=== PATIENT | female | born 1975 | race Caucasian/White ===

== ENCOUNTER 2020-06-10 19:02 | Emergency (ER) | payer OTHER, SELFPAY ==
--- NOTE | 2020-06-10 19:17 | ED.NAVMDI ---
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 Mode of arrival: EMS Limitations: other (very poor historian and cooperation) History of Present Illness HPI Narrative: 45 yo female with hx of migraines who comes in with c/o 2 hours gradual onset diffuse headache n/v and seeing spots - hx of exact same episode 2 years ago and was treated and seen, she is not sure if this was a migraine and I cannot find a record of it here, no AC therapy, no fevers, + n/v, worsened by movement and lights, no relieving factors MD elicited complaint: nausea, vomiting and abdominal pain (mild RUQ pain but that just started in ED) Onset (ago): hour(s) (2) Associated nausea: Yes Associated abdominal pain: Yes Location of pain: RUQ (mild started after I palpated her abdomen in the ED) Pain consistency: constant Severity: mild Quality: cramping Exacerbating factors: none Relieving factors: none Associated symptoms: headaches (her main complaint and feels like she sees black dots in both eyes) Related Data Previous Rx's Medication Instructions Recorded [id number]-hpatletwqpaav-ovfc 1 tab PO Q6H PRN #20 tab 06/10/20 cyclobenzaprine 10 mg PO TID PRN #14 tab 06/10/20 ondansetron 4 mg PO Q8H PRN #20 tab 06/10/20 Allergies Allergy/AdvReac Type Severity Reaction Status Date / Time aspirin [ASPIRIN] Allergy Severe DIFFICULTY Unverified 05/04/20 17:08 BREATHING, anaphylaxis penicillin G [PENICILLIN G] Allergy Severe DIFFICULTY Unverified 05/04/20 17:08 BREATHING penicillin V Allergy Unknown anaphylaxis Unverified 03/28/17 00:00 Review of Systems Review of Systems: Constitutional : No Fever, No Chills, No Fatigue ENT/Mouth : No sore throat, No Rhinorrhea Eyes: No Eye Pain, No Swelling, No Redness, states she sees black spots in both eyes Cardiovascular : No Chest Pain, No SOB, No Dyspnea on Exertion Respiratory : No Cough, No Sputum Gastrointestinal : pos Nausea, pos Vomiting, No Diarrhea, No abdominal Pain Genitourinary : No Dysuria, No Urinary Frequency, No Hematuria, Musculoskeletal : No joint pain, No Myalgias, No Joint Swelling Skin : No Skin Lesions, No rash Neuro : pos diffuse Weakness, No Numbness, pos Dizziness, positive Headache Psych : No Anxiety/Panic, No Depression Heme/Lymph: No Bruising, No Bleeding,No Lymphadenopathy Endocrine : No Polyuria, No Polydipsia All other systems reviewed and are negative Gastrointestinal: Gastrointestinal: Reports nausea PMFSH Past Medical History Medical History (Updated 06/10/20 @ 23:07 by Yas Leal DO) Chronic pain HTN (hypertension) Kidney stone Migraine Surgical History (Updated 06/10/20 @ 19:19 by Yas Leal DO) H/O: hysterectomy Social History Social History (Updated 06/10/20 @ 19:19 by Yas Leal DO) Alcohol intake: never Smoking Status: Current every day smoker Use of substances other than those prescribed or required for medical reasons: No Advance Directives: No Advance Directives Information Provided: No Physical Exam Vital Signs: Vital Signs: Vital Signs Temp Pulse Resp BP Pulse Ox 06/10/20 22:00 98.2 F 55 16 141/73 H 99 06/10/20 20:15 97.6 F 55 16 139/66 98 06/10/20 19:23 97.6 F 71 11 L 135/70 96 Body Mass Index 58.3 Appearance: Alert. Oriented X3. No acute distress. Eyes: Pupils equal, round and reactive to light. states she can see my fingers, will not open eyes due to her headache ENT: Pharynx normal. Neck: Normal inspection. Neck supple. no meningeal signs CVS: Normal heart rate and rhythm. Pulses normal. Respiratory: No respiratory distress. Breath sounds normal. Abdomen: Soft and nontender. Skin: Skin warm and dry. Normal skin color. Normal skin turgor. Extremities: No lower extremity edema. No calf ttp Neuro: Oriented X 3. No motor deficit. No sensory deficit. will not participate fully in exam, refuses at times Course Course Course Narrative: no acute findings, normal labs, normal VS, CT scan negative, has been talking on her phone in no distress, able to tolerate PO, stable for DC, all symptoms resolved MDM - Nausea/Vomiting/Diarrhea MDM Narrative Medical decision making narrative: 45 yo female with HTN, obesity, migraines - here with c/o headaches n/v gradual onset x 2 hours, no AC therapy, states she is seeing black spots she is not very helpful with history or exam, states this has happened before in the past 2 years ago with same exact episode and unsure if it was a migraine but was not in the hospital for it, will obtain basic labs, CT head, IV reglan/benadryl, seems atypical for stroke/SAH/meningitis Lab Data Result diagrams: 06/10/20 19:34 06/10/20 20:36 Labs: Lab Results 06/10/20 06/10/20 06/10/20 Range/Units 19:34 19:34 19:34 WBC 11.3 H (4.8-10.8) X10*3/uL RBC 4.34 (4.20-5.50) X10*6/uL Hgb 13.4 (12.0-16.0) g/dl Hct 41.0 (37-47) % MCV 94.5 (80-98) fL MCH 30.9 (27.0-33.0) pg MCHC 32.7 (31.0-35.0) g/dl RDW 13.4 (11.0-16.0) % Plt Count 306 (160-400) X10*3/uL MPV 10.0 (9.4-12.3) fL Immature Gran % (Auto) 1.2 H (0.0-0.4) % Neut % (Auto) 61.0 (45-73) % Lymph % (Auto) 26.4 (20-40) % Pope % (Auto) 7.5 (2-11) % Eos % (Auto) 3.4 (0-4) % Baso % (Auto) 0.5 (0-2) % Lymph # (Auto) 3.0 (1.2-4.9) X10*3/uL Pope # (Auto) 0.8 (0.1-1.2) X10*3/uL Eos # (Auto) 0.4 (0.0-0.4) X10*3/uL Baso # (Auto) 0.1 (0.0-0.2) X10*3/uL Abs Immat Gran (auto) 0.14 H (0.00-0.03) X10*3/uL Absolute Neuts (auto) 6.9 (2.0-8.3) X10*3/uL Absolute Nucleated RBC 0.000 (0.0-0.012) X10*3/uL Nucleated RBC % (auto) 0.0 (0.0-0.2) /100WBC Hold Blue Top SEE NOTE Sodium Cancelled Potassium Cancelled Chloride Cancelled Carbon Dioxide Cancelled Anion Gap Cancelled BUN Cancelled Creatinine Cancelled Estim Creat Clear Calc Cancelled Estimated GFR Cancelled Random Glucose Cancelled Calcium Cancelled Magnesium Cancelled Total Bilirubin Cancelled Direct Bilirubin Cancelled AST Cancelled ALT Cancelled Alkaline Phosphatase Cancelled Troponin I High Sens (<3.5-17.0) ng/L Total Protein Cancelled Albumin Cancelled Lipase Cancelled Urine Color Urine Appearance Urine pH (5.0-8.0) Ur Specific [place] (1.005-1.025) Urine Protein (NEG-TRACE) MG/DL Urine Glucose (UA) (NEG) MG/DL Urine Ketones (NEG) MG/DL Urine Blood (NEG) Urine Nitrite (NEG) Ur Leukocyte Esterase (NEG) 06/10/20 06/10/20 06/10/20 Range/Units 19:34 20:36 22:37 WBC (4.8-10.8) X10*3/uL RBC (4.20-5.50) X10*6/uL Hgb (12.0-16.0) g/dl Hct (37-47) % MCV (80-98) fL MCH (27.0-33.0) pg MCHC (31.0-35.0) g/dl RDW (11.0-16.0) % Plt Count (160-400) X10*3/uL MPV (9.4-12.3) fL Immature Gran % (Auto) (0.0-0.4) % Neut % (Auto) (45-73) % Lymph % (Auto) (20-40) % Pope % (Auto) (2-11) % Eos % (Auto) (0-4) % Baso % (Auto) (0-2) % Lymph # (Auto) (1.2-4.9) X10*3/uL Pope # (Auto) (0.1-1.2) X10*3/uL Eos # (Auto) (0.0-0.4) X10*3/uL Baso # (Auto) (0.0-0.2) X10*3/uL Abs Immat Gran (auto) (0.00-0.03) X10*3/uL Absolute Neuts (auto) (2.0-8.3) X10*3/uL Absolute Nucleated RBC (0.0-0.012) X10*3/uL Nucleated RBC % (auto) (0.0-0.2) /100WBC Hold Blue Top Sodium 138 Potassium 4.7 Chloride 105 Carbon Dioxide 27 Anion Gap 11 L BUN 11 Creatinine 0.82 Estim Creat Clear Calc 139.8 Estimated GFR > 60 Random Glucose 101 Calcium 8.9 Magnesium 2.1 Total Bilirubin 0.3 Direct Bilirubin < 0.2 AST 13 ALT 13 Alkaline Phosphatase 71 Troponin I High Sens < 3.5 (<3.5-17.0) ng/L Total Protein 6.9 Albumin 3.6 Lipase 18 Urine Color YELLOW Urine Appearance CLEAR Urine pH 6.5 (5.0-8.0) Ur Specific [place] 1.020 (1.005-1.025) Urine Protein NEG (NEG-TRACE) MG/DL Urine Glucose (UA) NEG (NEG) MG/DL Urine Ketones NEG (NEG) MG/DL Urine Blood NEG (NEG) Urine Nitrite NEG (NEG) Ur Leukocyte Esterase NEG (NEG) ECG Data Attestation: I personally reviewed and interpreted this ECG as follows: ECG interpretation date: 06/10/20 ECG interpretation time: 20:22 Interpretation: Rate: 59 Rhythm: sinus bradycardia Riddle: normal Normal P waves. Normal SAGE. Normal QRS complex. ST T wave : nonspecific qTC: normal prior studies: no acute ischemia The study has been interpreted contemporaneously by me. . Discharge Plan Discharge Clinical Impression: Migraine Qualifiers: Migraine type: with aura Status migrainosus presence: without status migrainosus Intractability: not intractable Qualified Code(s): G43.109 - Migraine with aura, not intractable, without status migrainosus Patient Disposition: Home, Self-Care Instructions: Migraine Headache (ED) Prescriptions: New ondansetron 4 mg tablet,disintegrating 4 mg PO Q8H PRN (Reason: nausea and vomiting) Qty: 20 RF: 0 xceuuvxeeq-agbdqnsbqmlpp-ukks 50-325-40 mg tablet 1 tab PO Q6H PRN (Reason: pain) Qty: 20 RF: 0 cyclobenzaprine 10 mg tablet 10 mg PO TID PRN (Reason: muscle spasm) Qty: 14 RF: 0 Referrals: Carmen Bertrand DO [Primary Care Provider] - 2 days (if not better) Print Language: Telugu
--- NOTE | 2020-06-10 19:20 | ECG_ITS ---
Test Reason : DIZZINESS Blood Pressure : / mmHG Vent. Rate : 059 BPM Atrial Rate : 059 BPM P-R Int : 188 ms QRS Dur : 078 ms QT Int : 414 ms P-R-T Axes : 058 071 055 degrees QTc Int : 409 ms Sinus bradycardia Nonspecific T wave abnormality Abnormal ECG No significant changes seen Referred By: Yas Leal Electronically Signed By:NELIDA BARKER MD
--- NOTE | 2020-06-10 19:20 | CT_ITS ---
EXAMINATION: CT HEAD WITHOUT CONTRAST CLINICAL INFORMATION: Dizziness COMPARISON: Report of head CT 02/02/19 is no acute intracranial process TECHNIQUE: Multidetector CT examination of the head is performed without contrast. This CT examination was performed using dose optimization techniques as appropriate, variously including the following: *Automated exposure control *Adjustment of mA and/or kV according to patient size (this includes techniques or standardized protocols for targeted exams where dose is matched to indication/reason for exam; i.e. extremities or head) *Use of iterative reconstruction technique DLP: 865 mGy-cm FINDINGS: There is no evidence of a recent intracranial hemorrhage or extra-axial collection. The midline structures are nondisplaced. The ventricles, cisterns, and sulci are within normal limits. There is no evidence of an intra-axial mass. There are no suspicious focal areas of abnormal brain attenuation. The barajas-white interface is within normal limits. There is no evidence of acute territorial infarct. The paranasal sinuses and mastoids are within normal limits. Nonspecific area of relative lucency in the right mandibular condyle. CT/CT head/brain wo con IMPRESSION: 1. There is no evidence of a recent intracranial hemorrhage. 2. No acute infarct. 3. No suspicious interval change
[2020-06-10 19:23] VITALS: BP 126/76; BP 135/70; PULSE 71; PULSE 72; RESP 11; TEMP 36.4; O2SAT 96; O2SAT 98; BMI 58.3
[2020-06-10 19:39] LABS: MANUAL DIFF FLAG NO
[2020-06-10 20:08] LABS: Basophils Absolute Auto 0.1 X10*3/uL (0.0-0.2); Basophils Percent Auto 0.5 % (0-2); Eosinophils Absolute Auto 0.4 X10*3/uL (0.0-0.4); Eosinophils Percent Auto 3.4 % (0-4); Hemoglobin 13.4 g/dl (12.0-16.0); Imm Gran Abs Auto 0.14 X10*3/uL (0.00-0.03); Imm Gran Pct Auto 1.2 % (0.0-0.4); Lymphocytes Percent Auto 26.4 % (20-40); Mean Corpuscular HGB Conc 32.7 g/dl (31.0-35.0); Mean Corpuscular Hemoglobin 30.9 pg (27.0-33.0); Mean Corpuscular Volume 94.5 fL (80-98); Monocytes Absolute Auto 0.8 X10*3/uL (0.1-1.2); Monocytes Percent Auto 7.5 % (2-11); Neutrophils Absolute Auto 6.9 X10*3/uL (2.0-8.3); Platelet Count 306 X10*3/uL (160-400); Red Blood Count 4.34 X10*6/uL (4.20-5.50); Red Cell Distribution Width 13.4 % (11.0-16.0); White Blood Count 11.3 X10*3/uL (4.8-10.8)
[2020-06-10 20:10] LABS: Troponin-I High Sensitivity < 3.5 ng/L (<3.5-17.0)
[2020-06-10 20:15] VITALS: BP 139/66; PULSE 55; RESP 16; TEMP 36.4; O2SAT 98
[2020-06-10] MEDS: diphenhydrAMINE HCL 50 MG/ML VIAL 25 MG IVPUSH (20:32)
[2020-06-10] MEDS: 0.9 % Sodium Chloride 1,000 ML 999 ML IVCONT (20:33)
[2020-06-10] MEDS: Metoclopramide HCl 10 MG/2 ML VIAL 5 MG IVPUSH (20:33)
--- NOTE | 2020-06-10 20:42 | PC.NURSE ---
COMPLAINING OF NAUSEA. PATIENT TALKING ON PHONE. MEDS ARE INFUSING.
[2020-06-10 21:14] LABS: Alanine Aminotransferase 13 U/L (0-31); Albumin Level 3.6 g/dL (3.5-5.0); Alkaline Phosphatase 71 U/L (39-117); Anion Gap 11 (12-20); Aspartate Amino Transferase 13 U/L (5-31); Bilirubin Direct < 0.2 mg/dL (0.0-0.5); Bilirubin Total 0.3 mg/dL (0.0-1.0); Blood Urea Nitrogen 11 mg/dL (9-16); Calcium 8.9 mg/dL (8.4-10.2); Carbon Dioxide 27 mmol/L (22-29); Chloride 105 mmol/L (96-108); Creatinine Clr Calc Pharmacy 139.8; Estimated Glomerular Filt Rate > 60; Glucose Random 101 mg/dL (60-115); Lipase 18 U/L (8-78); Magnesium 2.1 mg/dL (1.6-2.6); Potassium 4.7 mmol/l (3.3-5.1); Sodium 138 mmol/L (135-145); Total Protein 6.9 g/dL (6.5-8.0)
[2020-06-10 22:00] VITALS: BP 141/73; PULSE 55; RESP 16; TEMP 36.8; O2SAT 99
[2020-06-10 22:43] LABS: Glucose Urine UA NEG (NEG); Leukocyte Esterase Urine NEG (NEG); Nitrite Urine NEG (NEG); PH 6.5 (5.0-8.0); Urine Blood NEG (NEG); Urine Ketones NEG (NEG); Urine Protein NEG (NEG-TRACE)
[2020-06-10 22:46] LABS: Appearance Urine CLEAR; Color Urine YELLOW
--- NOTE | 2020-06-10 22:52 | PC.NURSE ---
GIVEN WATER TO START PO CHALLENGE
[2020-06-10 23:50] LABS: Bacteria Urine 1+ /LPF; Squamous Epithelial Cell Urine 1+ /LPF
== END 2020-06-10 23:33 | disposition home or self-care (01) ==
PROVIDERS: Emergency Provider Emergency Medicine; PCP Family Medicine
DX: G43.109 Migraine with aura, not intractable, without status migrainosus (principal); R42 Dizziness and giddiness; R10.11 Right upper quadrant pain; F17.200 Nicotine dependence, unspecified, uncomplicated; Z71.6 Tobacco abuse counseling; Z79.899 Other long term (current) drug therapy
CPT/HCPCS: 36415; 70450; 80048; 80076; 81001; 81003; 83690; 83735; 84484; 85025; 93005; 96361; 96374; 96375; 99284; J1200; J2765

== ENCOUNTER 2020-09-28 12:23 | Emergency (ER) | payer OTHER, SELFPAY ==
--- NOTE | ~2020-09-28 | CT_ITS ---
EXAMINATION: CT ABDOMEN AND PELVIS WITHOUT CONTRAST CLINICAL INFORMATION: Left-sided abdominal and flank pain COMPARISON: Baseline including 02/01/2018 TECHNIQUE: Multidetector volumetric imaging was performed from the superior aspect of the liver through the pubic symphysis. Sagittal and coronal reformatted images were obtained on the technologist's workstation. This CT examination was performed using dose optimization techniques as appropriate, variously including the following: *Automated exposure control *Adjustment of mA and/or kV according to patient size (this includes techniques or standardized protocols for targeted exams where dose is matched to indication/reason for exam; i.e. extremities or head) *Use of iterative reconstruction technique DLP: 1376 mGy-cm FINDINGS: LUNG BASES: The visualized lung bases are unremarkable. LIVER, GALLBLADDER, AND BILIARY TREE: The liver is normal in size, shape, and attenuation. No focal hepatic lesion or biliary ductal dilatation is present. The gallbladder is unremarkable with no evidence of radiopaque gallstones, gallbladder wall thickening, or obvious pericholecystic inflammatory changes. PANCREAS: Unremarkable. SPLEEN: Unremarkable. ADRENAL GLANDS: Unremarkable. KIDNEYS AND URETERS: There are multiple small intrarenal calculi measuring up to 1 2 5 mm. On the right, approximately 7 stones are measurable on the left 6 stones are measurable. There is hydronephrosis on the left down to the level of the mid ureter at the level of the iliac crest where there is a partially obstructing 4 mm calculus. The calculus measures approximately 190 Hounsfield units in density. When measured from the posterior mid axillary skin line, the distance from the skin to the calculus is approximately 19 cm. No perinephric abnormality. BLADDER: Unremarkable. GASTROINTESTINAL TRACT: The small and large bowel are unremarkable. The appendix is unremarkable. ABDOMINAL WALL: No significant hernia is appreciated. LYMPH NODES: Normal. VASCULAR: Unremarkable. PELVIC VISCERA: Pelvic organs appear to be surgically absent. OSSEOUS STRUCTURES: Unremarkable. CT/CT abdomen pelvis wo con IMPRESSION: Mildly partially obstructing left-sided 4 mm ureteral calculus as above. Nonobstructing numerous intrarenal calculi as above. Intrarenal calculi similar to baseline.
[2020-09-28 12:34] VITALS: BP 141/75; PULSE 76; RESP 18; TEMP 36.8; O2SAT 99; BMI 50.6
[2020-09-28] MEDS: 0.9 % Sodium Chloride 1,000 ML 999 ML IV (13:55)
[2020-09-28 14:00] LABS: MANUAL DIFF FLAG NO
[2020-09-28 14:07] LABS: Basophils Absolute Auto 0.1 X10*3/uL (0.0-0.2); Basophils Percent Auto 0.6 % (0-2); Eosinophils Absolute Auto 0.3 X10*3/uL (0.0-0.4); Eosinophils Percent Auto 2.7 % (0-4); Hemoglobin 13.3 g/dl (12.0-16.0); Imm Gran Pct Auto 1.6 % (0.0-0.4); Lymphocytes Absolute Auto 3.5 X10*3/uL (1.2-4.9); Lymphocytes Percent Auto 27.1 % (20-40); Mean Corpuscular HGB Conc 32.4 g/dl (31.0-35.0); Mean Corpuscular Hemoglobin 30.4 pg (27.0-33.0); Mean Corpuscular Volume 93.8 fL (80-98); Mean Platelet Volume 9.9 fL (9.4-12.3); Monocytes Percent Auto 8.2 % (2-11); Neutrophils Absolute Auto 7.6 X10*3/uL (2.0-8.3); Neutrophils Percent Auto 59.8 % (45-73); Platelet Count 425 X10*3/uL (160-400); Red Blood Count 4.37 X10*6/uL (4.20-5.50); Red Cell Distribution Width 13.4 % (11.0-16.0); White Blood Count 12.7 X10*3/uL (4.8-10.8)
[2020-09-28 14:08] LABS: Glucose Urine UA NEG (NEG); Leukocyte Esterase Urine NEG (NEG); Nitrite Urine NEG (NEG); Specific Gravity - Urine >= 1.030 (1.005-1.025); Urine Blood 3+ (NEG); Urine Ketones NEG (NEG); Urine Protein NEG (NEG-TRACE)
[2020-09-28 14:11] LABS: Appearance Urine CLEAR; Color Urine YELLOW
[2020-09-28 14:12] LABS: UPreg QC Valid YES; Urine Pregnancy NEGATIVE (NEGATIVE)
[2020-09-28 14:28] LABS: Alanine Aminotransferase 15 U/L (0-31); Albumin Level 3.5 g/dL (3.5-5.0); Alkaline Phosphatase 81 U/L (39-117); Anion Gap 10 (12-20); Aspartate Amino Transferase 12 U/L (5-31); Bilirubin Total 0.3 mg/dL (0.0-1.0); Blood Urea Nitrogen 16 mg/dL (9-16); Calcium 8.7 mg/dL (8.4-10.2); Carbon Dioxide 24 mmol/L (22-29); Chloride 110 mmol/L (96-108); Creatinine Clr Calc Pharmacy 119.1; Estimated Glomerular Filt Rate > 60; Glucose Random 99 mg/dL (60-115); Potassium 4.4 mmol/L (3.3-5.1); Sodium 140 mmol/L (135-145); Total Protein 7.1 g/dL (6.5-8.0)
[2020-09-28] MEDS: Ketorolac Tromethamine 30 MG/ML VIAL IVPUSH (14:47)
[2020-09-28 15:04] LABS: Bacteria Urine 2+ /LPF; Squamous Epithelial Cell Urine 2+ /LPF
--- NOTE | 2020-09-28 15:24 | ED_ITS ---
HPI - General Adult General Chief complaint: General Medical Stated complaint: back pain Time Seen by Provider: 09/28/20 13:47 Source: patient Mode of arrival: ambulatory Limitations: no limitations History of Present Illness HPI narrative: 45-year-old female with below noted past medical history presenting ambulatory via triage with complaint of left-sided abdomen/flank pain going on for past 1 and half week. States she went to her primary care doctor a week or so ago thought maybe urine tract infection was given a course of antibiotics which she finished however her flank pain continues. Denies any dysuria, hematuria, fever, nausea or vomiting. Onset (ago): day(s) Location: left Relieving factors: none Treatments prior to arrival: none Related Data Previous Rx's Medication Instructions Recorded qvnagevdis-timtaganczhse-cfgo 1 tab PO Q6H PRN #20 tab 06/10/20 cyclobenzaprine 10 mg PO TID PRN #14 tab 06/10/20 ondansetron 4 mg PO Q8H PRN #20 tab 06/10/20 Allergies Allergy/AdvReac Type Severity Reaction Status Date / Time aspirin [ASPIRIN] Allergy Severe DIFFICULTY Unverified 05/04/20 17:08 BREATHING, anaphylaxis penicillin G [PENICILLIN G] Allergy Severe DIFFICULTY Unverified 05/04/20 17:08 BREATHING penicillin V Allergy Unknown anaphylaxis Unverified 03/28/17 00:00 Review of Systems Review of Systems: Constitutional: No Weight loss, No Fever, No Chills, No Night Sweats, No Fatigue, No Malaise ENT/Mouth: No Hearing loss, No Ear Pain, No Nasal Congestion, No Sinus Pain, No Hoarseness, No sore throat, No Rhinorrhea, No Swallowing Difficulty Eyes: No Eye Pain, No Swelling, No Redness, No Foreign Body, No Discharge, No Vision Changes Cardiovascular: No Chest Pain, No SOB, No Dyspnea on Exertion, No Orthopnea, No Edema, No Palpitations Respiratory: No Cough, No Sputum, No Wheezing, No Smoke Exposure, No Dyspnea Gastrointestinal: As noted in HPI, No Hematochezia, No Melena Genitourinary: No Dysuria, No Urinary Frequency, No Hematuria, No Urinary Incontinence, No Urgency, No Flank Pain, No Urinary Flow Changes, No Hesitancy Musculoskeletal: No joint pain, No Myalgias, No Joint Swelling Skin: No Skin Lesions, No rash Neuro: No Weakness, No Numbness, No Paresthesias, No Loss of Consciousness, No Dizziness, No Headache Psych: No Social Issues Heme/Lymph: No Bruising, No Bleeding,No Lymphadenopathy Endocrine: No Polyuria, No Polydipsia, No Temperature Intolerance Yes all other systems are reviewed and are negative [facility] Past Medical History Medical History (Updated 09/28/20 @ 15:35 by Fly Ross NP) Chronic pain HTN (hypertension) Kidney stone Migraine Surgical History (Updated 06/10/20 @ 19:19 by Yas Leal DO) H/O: hysterectomy Social History Social History (Updated 06/10/20 @ 19:19 by Yas Leal DO) Alcohol intake: never Smoking Status: Current every day smoker Advance Directives: Yes Advance Directives Information Provided: No Advance Directives on File: No Physical Exam Vital Signs: Vital Signs: Last Vital Signs Temp 98.2 F 09/28/20 12:34 Pulse 76 09/28/20 12:34 Resp 18 09/28/20 12:34 BP 141/75 H 09/28/20 12:34 Pulse Ox 99 09/28/20 12:34 Body Mass Index 50.6 Reviewed Const: General: cooperative and healthy appearing; No acute distress or intoxicated appearing Nutritional Appearance: average body habitus Orientation/consciousness: patient oriented x3 HENMT: Head: Yes normal to inspection Ears: hearing grossly normal bilaterally Eyes: General: appearance normal, both eyes and all related structures Visual Redd: normal visual redd by confrontation Neck: Neck: Yes normal visual inspection, No positive Brudzinski's sign, No positive Kernig's sign and No tender Thyroid: Thyroid normal Chest: Chest palpation & inspection: normal inspection of the chest Resp: Effort & Inspection: normal respiratory effort Auscultation: clear to auscultation bilaterally Cardio: Jugular venous distension: no JVD Rhythm: regular rhythm Heart sounds: S1 normal heart sound present and S2 normal heart sound present GI: Other: Mild left CVA tenderness palpation. Inspection: Yes normal to inspection Percussion: Yes normal to percussion Auscultation: normal bowel sounds : General: Yes no CVA tenderness Back/Spine/Pelvis: Back: no CVA tenderness Skin: General skin exam: no rashes or lesions noted Neuro: General: patient oriented x3 Extrem: General: Yes normal to inspection Course Course Course Narrative: Labs with slight leukocytosis which she chronically has currently at 12.7 significant derangement. Renal function intact. UA with positive blood otherwise no signs of infection. CT of the abdomen pelvis shows Mildly partially obstructing left-sided 4 mm ureteral calculus as above. Nonobstructing numerous intrarenal calculi. Feeling much better after IV fluids and IV Toradol. Feels comfortable plan. Will discharge home with Flomax and oxycodone ibuprofen with urology follow-up. Stable for discharge. Medical Decision Making Lab Data Result diagrams: 09/28/20 13:54 09/28/20 13:54 Labs: Lab Results 09/28/20 09/28/20 09/28/20 Range/Units 13:54 13:54 13:54 WBC 12.7 H (4.8-10.8) X10*3/uL RBC 4.37 (4.20-5.50) X10*6/uL Hgb 13.3 (12.0-16.0) g/dl Hct 41.0 (37-47) % MCV 93.8 (80-98) fL MCH 30.4 (27.0-33.0) pg MCHC 32.4 (31.0-35.0) g/dl RDW 13.4 (11.0-16.0) % Plt Count 425 H D (160-400) X10*3/uL MPV 9.9 (9.4-12.3) fL Immature Gran % (Auto) 1.6 H (0.0-0.4) % Neut % (Auto) 59.8 (45-73) % Lymph % (Auto) 27.1 (20-40) % [place] % (Auto) 8.2 (2-11) % Eos % (Auto) 2.7 (0-4) % Baso % (Auto) 0.6 (0-2) % Lymph # (Auto) 3.5 (1.2-4.9) X10*3/uL [place] # (Auto) 1.0 (0.1-1.2) X10*3/uL Eos # (Auto) 0.3 (0.0-0.4) X10*3/uL Baso # (Auto) 0.1 (0.0-0.2) X10*3/uL Abs Immat Gran (auto) 0.20 H (0.00-0.03) X10*3/uL Absolute Neuts (auto) 7.6 (2.0-8.3) X10*3/uL Absolute Nucleated RBC 0.000 (0.0-0.012) X10*3/uL Nucleated RBC % (auto) 0.0 (0.0-0.2) /100WBC Sodium 140 (135-145) mmol/L Potassium 4.4 (3.3-5.1) mmol/L Chloride 110 H (96-108) mmol/L Carbon Dioxide 24 (22-29) mmol/L Anion Gap 10 L (12-20) BUN 16 (9-16) mg/dL Creatinine 0.97 (0.5-1.4) mg/dL Estim Creat Clear Calc 119.1 Estimated GFR > 60 Random Glucose 99 (60-115) mg/dL Calcium 8.7 (8.4-10.2) mg/dL Total Bilirubin 0.3 (0.0-1.0) mg/dL AST 12 (5-31) U/L ALT 15 (0-31) U/L Alkaline Phosphatase 81 (39-117) U/L Total Protein 7.1 (6.5-8.0) g/dL Albumin 3.5 (3.5-5.0) g/dL Urine Color YELLOW Urine Appearance CLEAR Urine pH 6.0 (5.0-8.0) Ur Specific [place] >= 1.030 H (1.005-1.025) Urine Protein NEG (NEG-TRACE) MG/DL Urine Glucose (UA) NEG (NEG) MG/DL Urine Ketones NEG (NEG) MG/DL Urine Blood 3+ H (NEG) Urine Nitrite NEG (NEG) Ur Leukocyte Esterase NEG (NEG) Urine RBC 15-29 H (0) /HPF Urine WBC 1-4 (0-4) /HPF Ur Squamous Epith Cells 2+ /LPF Urine Bacteria 2+ /LPF Urine Test NEGATIVE (NEGATIVE) Imaging Data Abdominal/pelvis CT: Radiologist's impression: [address] [id number] Scan ReportSigned Patient: Blaire Glass#: [id number]: 1975Acct:[id number]/Sex: 45 / FADM Date: 09/28/20Loc: [email or web address].EDAttending Dr: Ordering Physician: Fly Ross NP Date of Service: 09/28/20 Procedure(s): CT abdomen pelvis wo con Accession Number(s): [id number] cc: Fly Ross NP~ EXAMINATION: CT ABDOMEN AND PELVIS WITHOUT CONTRAST CLINICAL INFORMATION: Left-sided abdominal and flank pain COMPARISON: Baseline including 02/01/2018 TECHNIQUE: Multidetector volumetric imaging was performed from the superior aspect of the liver through the pubic symphysis. Sagittal and coronal reformatted images were obtained on the technologist's workstation. This CT examination was performed using dose optimization techniques as appropriate, variously including the following: *Automated exposure control *Adjustment of mA and/or kV according to patient size (this includes techniques or standardized protocols for targeted exams where dose is matched to indication/reason for exam; i.e. extremities or head) *Use of iterative reconstruction technique DLP: 1376 mGy-cm FINDINGS: LUNG BASES: The visualized lung bases are unremarkable. LIVER, GALLBLADDER, AND BILIARY TREE: The liver is normal in size, shape, and attenuation. No focal hepatic lesion or biliary ductal dilatation is present. The gallbladder is unremarkable with no evidence of radiopaque gallstones, gallbladder wall thickening, or obvious pericholecystic inflammatory changes. PANCREAS: Unremarkable. SPLEEN: Unremarkable. ADRENAL GLANDS: Unremarkable. KIDNEYS AND URETERS: There are multiple small intrarenal calculi measuring up to 1 2 5 mm. On the right, approximately 7 stones are measurable on the left 6 stones are measurable. There is hydronephrosis on the left down to the level of the mid ureter at the level of the iliac crest where there is a partially obstructing 4 mm calculus. The calculus measures approximately 190 Hounsfield units in density. When measured from the posterior mid axillary skin line, the distance from the skin to the calculus is approximately 19 cm. No perinephric abnormality. BLADDER: Unremarkable. GASTROINTESTINAL TRACT: The small and large bowel are unremarkable. The appendix is unremarkable. ABDOMINAL WALL: No significant hernia is appreciated. LYMPH NODES: Normal. VASCULAR: Unremarkable. PELVIC VISCERA: Pelvic organs appear to be surgically absent. OSSEOUS STRUCTURES: Unremarkable. CT/CT abdomen pelvis wo con IMPRESSION: Mildly partially obstructing left-sided 4 mm ureteral calculus as above. Nonobstructing numerous intrarenal calculi as above. Intrarenal calculi similar to baseline. Dictated By:NELLIE CAPUTO MDSigned By:<Electronically signed by NELLIE CAPUTO MD in OV>09/28/20 1458 DD/ 1347TD/TT: Practice Administrator: Discharge Plan Discharge Clinical Impression: Kidney stone on left side Patient Disposition: Home, Self-Care Instructions: Kidney Stones (ED), How to Strain Your Urine (ED) Additional Instructions: You have a small kidney stone on the left side that is causing her pain There are multiple stones within the kidneys do not usually cause pain Drink plenty fluids Taking medications prescribed Follow-up with your urologist as discussed Return if any concerns or worsening symptoms Thank you Prescriptions: No Action ondansetron 4 mg tablet,disintegrating 4 mg PO Q8H PRN (Reason: nausea and vomiting) Qty: 20 RF: 0 mafcxtbgmy-ocovkknhjbokz-fozi 50-325-40 mg tablet 1 tab PO Q6H PRN (Reason: pain) Qty: 20 RF: 0 cyclobenzaprine 10 mg tablet 10 mg PO TID PRN (Reason: muscle spasm) Qty: 14 RF: 0 Referrals: Mervin Bryan MD [Physician] - 2 days Carmen Bertradn DO [Primary Care Provider] - 1 week
[2020-09-28] MEDS: Tamsulosin HCL 0.4 MG CAPSULE PO (15:38)
[2020-09-28] MEDS: oxyCODONE HCl Immed Release 5 MG TABLET PO (15:39)
== END 2020-09-28 15:51 | disposition home or self-care (01) ==
PROVIDERS: Nurse Practitioner Primary Care; Emergency Provider Internal Medicine; PCP Family Medicine
DX: N20.0 Calculus of kidney (principal); M54.5 Low back pain; R10.9 Unspecified abdominal pain; F17.200 Nicotine dependence, unspecified, uncomplicated; Z71.6 Tobacco abuse counseling; Z79.899 Other long term (current) drug therapy
CPT/HCPCS: 36415; 74176; 80053; 81001; 81025; 85025; 96361; 96374; 99284; J1885

== ENCOUNTER → 2020-10-03 11:25 | Outpatient (BNVA) | payer OTHER, SELFPAY | PROVIDERS: Visit Provider Urology | DX: N20.0 Calculus of kidney (principal) | CPT/HCPCS: Q3014 ==

== ENCOUNTER 2020-10-05 13:05 | Outpatient (REF) | payer OTHER, SELFPAY ==
--- NOTE | ~2020-10-05 | US_ITS ---
EXAMINATION: US RETROPERITONEAL LIMITED (RENAL ONLY) CLINICAL INFORMATION: Calculus of kidney. COMPARISON: CT abdomen and pelvis 09/28/2020. Ultrasound abdomen complete 07/07/2018. Renal ultrasound 02/24/2015. KUB 09/04/2011 and 05/08/2011. TECHNIQUE: Real-time imaging of the kidneys. FINDINGS: RIGHT KIDNEY: 10.6 x 7.0 x 5.8 cm (SAG x AP x TRV). The kidney is normal in size, contour, and echogenicity. Renal cortical thickness is normal. There is a 3 mm stone in the upper pole. The other right renal stone seen by CT are not appreciated by ultrasound. No focal parenchymal lesions or hydronephrosis. LEFT KIDNEY: 11.7 x 6.9 x 6.3 cm (SAG x AP x TRV). The kidney is normal in size, contour, and echogenicity. Renal cortical thickness is normal. No calculi or focal parenchymal lesions. Left renal stones appreciated by recent CT scan are not appreciated by ultrasound. Left hydronephrosis seen on CT 09/28/2020 has resolved. US/US renal BI IMPRESSION: Small right renal stone in the upper pole. Other renal stones seen on recent CT 09/28/2020 are not appreciated by ultrasound. No hydronephrosis. Left hydronephrosis seen on CT 09/28/2020 has resolved.
== END 2020-10-05 13:06 | disposition home or self-care (01) ==
LOC: HO.US 13:05
PROVIDERS: PCP Family Medicine; Visit Provider Urology
DX: N20.0 Calculus of kidney (principal)
CPT/HCPCS: 76775

== ENCOUNTER 2020-10-12 10:05 | Outpatient (REF) | payer OTHER, SELFPAY ==
--- NOTE | ~2020-10-12 | US_ITS ---
EXAMINATION: US ABDOMEN COMPLETE CLINICAL INFORMATION: Epigastric pain. Fatty liver. COMPARISON: Renal ultrasound 10/05/2020. CT abdomen and pelvis 09/28/2020. Ultrasound abdomen complete 07/07/2018. TECHNIQUE: Real-time imaging of the abdominal viscera. FINDINGS: PANCREAS: The visualized head and body of the pancreas appears unremarkable. Remainder of the pancreas is obscured by bowel gas. ABDOMINAL AORTA: The proximal, mid, and distal segments are normal in caliber. INFERIOR VENA CAVA: Visualized portions are normal. LIVER: Normal echogenicity. No focal hepatic lesion. There is no intrahepatic biliary duct dilatation seen. GALLBLADDER: Normal. The gallbladder is physiologically distended without evidence of stones, sludge, polyps, wall thickening or pericholecystic fluid. COMMON BILE DUCT: Normal in caliber measuring 0.3 cm in diameter. RIGHT KIDNEY: Upper pole 3 mm nonobstructing calculus. No hydronephrosis or focal parenchymal lesions. The kidney measures 11.7 cm in maximum dimension. LEFT KIDNEY: Normal. No hydronephrosis. No renal calculi or focal parenchymal lesions. The kidney measures 11.7 cm in maximum dimension. SPLEEN: Normal. The spleen measures 9.1 cm in maximum dimension. FREE FLUID: None. US/US abdomen complete IMPRESSION: 1. Right renal upper pole 3 mm non-obstructing calculus. No hydronephrosis. 2. Otherwise unremarkable study.
== END 2020-10-12 10:06 | disposition home or self-care (01) ==
LOC: HO.US 10:05
PROVIDERS: PCP Family Medicine; Visit Provider Family Medicine
DX: R10.13 Epigastric pain (principal); K76.0 Fatty (change of) liver, not elsewhere classified
CPT/HCPCS: 76700

== ENCOUNTER → 2020-11-03 13:31 | Outpatient (BNVA) | payer OTHER, SELFPAY | PROVIDERS: PCP Family Medicine; Visit Provider Urology | DX: Z13.89 Encounter for screening for other disorder (principal) | CPT/HCPCS: 99212 ==

== ENCOUNTER 2020-11-29 14:57 | Outpatient (REF) | payer OTHER, SELFPAY ==
[2020-11-29 16:04] LABS: Glucose Urine UA NEG (NEG); Leukocyte Esterase Urine TRACE (NEG); Nitrite Urine POS (NEG); Specific Gravity - Urine 1.025 (1.005-1.025); Urine Blood TRACE (NEG); Urine Ketones NEG (NEG); Urine Protein NEG (NEG-TRACE)
[2020-11-29 16:07] LABS: Appearance Urine HAZY; Color Urine YELLOW
[2020-11-29 16:29] LABS: Bacteria Urine 2+ /LPF; Squamous Epithelial Cell Urine TRACE /LPF
== END 2020-11-29 14:58 | disposition home or self-care (01) ==
LOC: HO.LAB 14:57
PROVIDERS: PCP Family Medicine; Visit Provider Urology
DX: N39.0 Urinary tract infection, site not specified (principal)
CPT/HCPCS: 81001; 87086; 87088; 87186

== ENCOUNTER → 2020-12-01 14:44 | Outpatient (BNV) | payer OTHER, SELFPAY | PROVIDERS: PCP Family Medicine; Referring Provider Family Medicine; Visit Provider Internal Medicine Medical Oncology | DX: D72.829 Elevated white blood cell count, unspecified (principal) | CPT/HCPCS: 99204; 99213 ==

== ENCOUNTER 2020-12-19 08:27 | Outpatient (REF) | payer OTHER, SELFPAY ==
--- NOTE | ~2020-12-19 | XR_ITS ---
EXAMINATION: KNEE X-RAY CLINICAL INFORMATION: Pain COMPARISON: Previous x-rays May 2015 and May 2016 TECHNIQUE: Standing AP view of both knees and lateral and sunrise view of both knees FINDINGS: Right: Bone alignment is normal. No fracture or dislocation is seen. There is mild arthritis at the medial femoral tibial and patellofemoral joints with joint space narrowing and small osteophytes. There is no joint effusion. Left: Bone alignment is normal. No fracture or dislocation is seen. There is mild arthritis at the medial femoral tibial and patellofemoral joints. There is no joint effusion. XR/XR knee RT 3V IMPRESSION: Mild bilateral arthritis.
--- NOTE | ~2020-12-19 | XR_ITS ---
EXAMINATION: KNEE X-RAY CLINICAL INFORMATION: Pain COMPARISON: Previous x-rays May 2015 and May 2016 TECHNIQUE: Standing AP view of both knees and lateral and sunrise view of both knees FINDINGS: Right: Bone alignment is normal. No fracture or dislocation is seen. There is mild arthritis at the medial femoral tibial and patellofemoral joints with joint space narrowing and small osteophytes. There is no joint effusion. Left: Bone alignment is normal. No fracture or dislocation is seen. There is mild arthritis at the medial femoral tibial and patellofemoral joints. There is no joint effusion. XR/XR knee LT 2V IMPRESSION: Mild bilateral arthritis.
== END 2020-12-19 08:28 | disposition home or self-care (01) ==
LOC: HO.HOSX 08:27
PROVIDERS: Visit Provider Physician Assistant
DX: M17.0 Bilateral primary osteoarthritis of knee (principal); E66.01 Morbid (severe) obesity due to excess calories; Z68.43 Body mass index [BMI] 50.0-59.9, adult
CPT/HCPCS: 73560; 73562; 99202

== ENCOUNTER 2021-01-29 13:00 | Outpatient (REF) | payer OTHER, SELFPAY ==
--- NOTE | ~2021-01-29 | XR_ITS ---
EXAMINATION: XR CHEST CLINICAL INFORMATION: Cough. COMPARISON: None TECHNIQUE: 2 views of the chest were obtained. FINDINGS: No significant abnormality is noted involving the heart, lungs, mediastinum, bony thorax or soft tissues. XR/XR chest 2V IMPRESSION: Unremarkable chest exam.
== END 2021-01-29 13:01 | disposition home or self-care (01) ==
LOC: HO.XRAY 13:00
PROVIDERS: PCP Family Medicine; Visit Provider Family Medicine
DX: R05 Cough (principal)
CPT/HCPCS: 71046

== ENCOUNTER 2021-02-06 13:10 | Outpatient (REF) | payer OTHER, SELFPAY ==
--- NOTE | ~2021-02-06 | MM_ITS ---
EXAMINATION: MM DIAGNOSTIC DIGITAL BREAST TOMOSYNTHESIS, BILATERAL US DIAGNOSTIC ULTRASOUND BREAST, LEFT CLINICAL INFORMATION: Palpable concern subareolar left breast noted by patient for one day. Due for yearly. No known family history breast cancer. The lifetime risk of breast cancer based on the Tyrer-Cuzick Model is 5%. COMPARISON: Mammography: 08/12/2019, 09/26/2017, 05/14/2016 TECHNIQUE: Digital breast tomosynthesis is performed in both the craniocaudal and mediolateral oblique views along with computer-aided detection (CAD). Synthesized 2D images are generated from the tomosynthesis. Additional right CC view is provided. Ultrasound left breast is targeted to the area of clinical concern. Patient is able to point to the area at time of imaging. Grayscale imaging and color Doppler are performed without and with harmonics. FINDINGS: There are scattered areas of fibroglandular density (ACR BI-RADS breast composition Category b). Breast tissue composition borders on predominantly fatty. Background stromal and fibroglandular densities are stable. There is no developing density or interval mass or architectural abnormality. No skin thickening or coarsening of the Aleksandr's ligaments. No focal duct ectasia. There are scattered incidental bilateral benign rim calcifications in the central and anterior breasts. The largest is near the area of palpable concern subareolar left breast and measures 0.7 cm. Ultrasound left breast demonstrates scattered round rim calcifications corresponding to the finding on mammography, the largest close to area of palpable concern and measuring 0.7 cm. Otherwise, there is no cystic or solid mass or architectural abnormality. No focal duct ectasia. No skin thickening or edema tracking in soft tissue planes. No hyperemia on color Doppler. Results are discussed with the patient at time of visit. MM/MM tomosynthesis diagnostic BI IMPRESSION: 1. No mammographic evidence of malignancy. 2. Unremarkable targeted left breast ultrasound. 3. There is a chronic benign rim calcification 0.7 cm subareolar left breast which resides close to the area of palpable concern. ASSESSMENT: BI-RADS 2: Benign RECOMMENDATION: 1. Patient should be managed based on the clinical impression. If clinically indicated, further evaluation may be considered with surgical consult. Decision to proceed with biopsy should be based on clinical grounds and degree of clinical concern. 2. Otherwise, routine annual screening mammography. This patient's information was entered into a reminder system with a target due date for their next mammogram.
== END 2021-02-06 13:11 | disposition home or self-care (01) ==
LOC: HO.MAMMO 13:10
PROVIDERS: Visit Provider Family Medicine
DX: R92.1 Mammographic calcification found on diagnostic imaging of breast (principal)
CPT/HCPCS: 76642; 77062; 77066

== ENCOUNTER 2021-05-16 13:08 | Emergency (ER) | payer OTHER, SELFPAY ==
[2021-05-16 13:20] VITALS: BP 148/96; PULSE 75; RESP 16; TEMP 36.9; O2SAT 96; BMI 88.6
--- NOTE | 2021-05-16 15:08 | ED_ITS ---
HPI - General Adult General Chief complaint: General Medical Stated complaint: high bp Time Seen by Provider: 05/16/21 14:59 Source: patient Mode of arrival: ambulatory Limitations: no limitations History of Present Illness HPI narrative: 46-year-old medical history of migraines, asthma, hypertension and obesity presents to the emergency department with 4 days of vomiting and dizziness. She states that she has not been able to keep down any food, everything she eats she throws up. She has vomited 7X today. Her dizziness is described as the room spinning, and she feels like she is going to fall. He also states she has a frontal bandlike headache. She feels weak. These symptoms have been progresivly worsening. She denies CP, SOB, fevers, chills, vision changes, falls, trauma, abdominal pain, changes in bowel habits, and difficulty voiding. Related Data Home Medications Medication Instructions Recorded Confirmed albuterol sulfate 2.5 mg INHALATION 11/03/20 baclofen 10 mg tablet 10 mg PO TID PRN 11/03/20 12/01/20 ergocalciferol (vitamin D2) 1,250 1,250 mcg PO QWEEK 11/03/20 12/01/20 mcg (50,000 unit) capsule fluticasone propionate 110 2 puff INHALATION BID 11/03/20 12/01/20 mcg/actuation HFA aerosol inhaler tramadol 50 mg tablet 50 mg PO TID PRN 11/03/20 albuterol sulfate 90 mcg/actuation 2 puff PO Q4-6H PRN 12/01/20 12/01/20 aerosol inhaler (Ventolin HFA) aripiprazole 15 mg tablet (Abilify) 15 mg PO DAILY 12/01/20 12/01/20 atorvastatin 80 mg tablet (Lipitor) 80 mg PO DAILY 12/01/20 12/01/20 clonidine HCl 0.1 mg tablet 0.1 mg PO BEDTIME 12/01/20 12/01/20 divalproex 500 mg tablet,extended 500 mg PO DAILY 12/01/20 12/01/20 release 24 hr (Depakote ER) fluticasone propionate 50 2 spray INTRANASAL DAILY 12/01/20 12/01/20 mcg/actuation nasal spray,suspension lisinopril 20 mg tablet 1 tab PO DAILY 12/01/20 12/01/20 omeprazole 20 mg capsule,delayed 1 cap PO QAM 12/01/20 12/01/20 release quetiapine 100 mg tablet (Seroquel) 100 mg PO BEDTIME 12/01/20 12/01/20 spironolactone 100 mg tablet 100 mg PO DAILY 12/01/20 12/01/20 sumatriptan succinate 50 mg tablet 50 mg PO Q2-4H PRN 12/01/20 12/01/20 (Imitrex) atorvastatin 40 mg tablet 40 mg PO BEDTIME 12/19/20 blood pressure test kit-large #1 ea 12/19/20 nitrofurantoin macrocrystal 100 mg 100 mg PO BID 12/19/20 capsule paroxetine HCl 20 mg tablet 20 mg PO BEDTIME 12/19/20 phenazopyridine 200 mg tablet 200 mg PO TID PRN 12/19/20 quetiapine 50 mg tablet 50 mg PO BID 12/19/20 topiramate 50 mg tablet 50 mg PO BID 12/19/20 Previous Rx's Medication Instructions Recorded ibuprofen 800 mg tablet 800 mg PO Q8H PRN #14 tab 09/28/20 ciprofloxacin HCl 500 mg tablet 500 mg PO BID 5 Days #10 tab 12/01/20 meloxicam 15 mg tablet 15 mg PO DAILY 30 Days #30 tab 12/19/20 diphenhydramine HCl 25 mg tablet 50 mg PO Q6H PRN #20 tab 05/16/21 (Benadryl Allergy) metoclopramide HCl 10 mg tablet 10 mg PO Q6H PRN #14 tab 05/16/21 (Reglan) Allergies Allergy/AdvReac Type Severity Reaction Status Date / Time aspirin [ASPIRIN] Allergy Severe DIFFICULTY Unverified 12/19/20 13:08 BREATHING, anaphylaxis penicillin G [PENICILLIN G] Allergy Severe DIFFICULTY Unverified 12/19/20 13:08 BREATHING penicillin V Allergy Unknown anaphylaxis Unverified 12/19/20 13:08 Review of Systems Review of Systems: Yes all other systems are reviewed and are negative PMFSH Past Medical History Attestation statement: The following information was validated with the patient. Source: old records reviewed Medical History Chronic pain HTN (hypertension) Kidney stone Migraine Surgical History H/O breast surgery H/O: hysterectomy History of tonsillectomy Family History Family History Father Hypertension Mother Hypertension Osteoporosis Hx of bilateral cataract extraction Paternal Grandmother Diabetes Sister Asthma Social History Social History (Updated 12/19/20 @ 13:09 by MILI Romero) Alcohol intake: former Patient Tobacco Use Status: Current everyday Tobacco user Advance Directives: No Advance Directives Information Provided: Yes Patient : No Current occupational status: unemployed Physical Exam Vital Signs: Vital Signs: Last Vital Signs Temp 98.4 F 05/16/21 13:20 Pulse 58 05/16/21 15:15 Resp 16 05/16/21 15:15 BP 139/79 05/16/21 15:15 Pulse Ox 99 05/16/21 15:15 Body Mass Index 88.6 Const: General: cooperative and no acute distress Orientation/consciousness: oriented to person and oriented to place Limitations: no limitations HENMT: Head: Yes normal to inspection, Yes normocephalic and Yes atraumatic Ears: external ears normal General nose exam: Normal external nose present Face and sinus: Yes normal facial exam Mouth: Normal oral and palatal mucosa present Throat: Yes posterior oropharynx normal Eyes: General: appearance normal, both eyes and all related structures Pupils: Equal, round and reactive pupils present Neck: Neck: Yes normal visual inspection, Yes no lymphadenopathy, Yes trachea midline and Yes supple Chest: Chest palpation & inspection: normal inspection of the chest and normal palpation of entire chest wall Resp: Effort & Inspection: normal respiratory effort and able to speak in complete sentences Auscultation: clear to auscultation bilaterally Cardio: Rate: regular rate Rhythm: regular rhythm Heart sounds: S1 normal heart sound present, S2 normal heart sound present and no murmurs GI: Inspection: Yes normal to inspection Palpation (GI): Soft to palpation, nontender and no guarding Auscultation: normal bowel sounds : General: Yes no CVA tenderness Back/Spine/Pelvis: Back: no CVA tenderness Skin: General skin exam: no rashes or lesions noted Neuro: General: oriented to person and oriented to place Cranial nerves: Yes CN's II-XII intact bilaterally and Yes Equal, round and reactive pupils present Cognition (Neuro): normal cognition Motor exam (neuro): 5/5 motor strength present throughout Extrem: General: Yes normal to inspection Psych: Appearance: grossly normal Speech and movement: Normal speech and movement present Affect: normal affect Attitude: cooperative Thought process: Normal thought process present Thought content: Normal thought content present Course Course Course Narrative: Upon re-evaluation patient states that her headache is no longer present. She is no longer nauseous. She was treated with Benadryl, Reglan and morphine. She feels good to go home, vital signs are stable. She will be discharged home with Reglan, and Benadryl. She has sumatriptan at home which she will continue to take for her migraines. Medical Decision Making Lab Data Result diagrams: 05/16/21 15:47 05/16/21 15:47 Labs: Lab Results 05/16/21 05/16/21 05/16/21 Range/Units 15:47 15:47 15:47 WBC 12.7 H (4.8-10.8) X10*3/uL RBC 4.45 (4.20-5.50) X10*6/uL Hgb 13.4 (12.0-16.0) g/dl Hct 41.5 (37-47) % MCV 93.3 (80-98) fL MCH 30.1 (27.0-33.0) pg MCHC 32.3 (31.0-35.0) g/dl RDW 13.4 (11.0-16.0) % Plt Count 323 (160-400) X10*3/uL MPV 9.8 (9.4-12.3) fL Immature Gran % (Auto) 0.9 H (0.0-0.4) % Neut % (Auto) 59.7 (45-73) % Lymph % (Auto) 27.0 (20-40) % [place] % (Auto) 7.7 (2-11) % Eos % (Auto) 4.1 H (0-4) % Baso % (Auto) 0.6 (0-2) % Lymph # (Auto) 3.4 (1.2-4.9) X10*3/uL [place] # (Auto) 1.0 (0.1-1.2) X10*3/uL Eos # (Auto) 0.5 H (0.0-0.4) X10*3/uL Baso # (Auto) 0.1 (0.0-0.2) X10*3/uL Abs Immat Gran (auto) 0.12 H (0.00-0.03) X10*3/uL Absolute Neuts (auto) 7.6 (2.0-8.3) X10*3/uL Absolute Nucleated RBC 0.000 (0.0-0.012) X10*3/uL Nucleated RBC % (auto) 0.0 (0.0-0.2) /100WBC Sodium 141 (135-145) mmol/L Potassium 4.3 (3.3-5.1) mmol/L Chloride 109 H (96-108) mmol/L Carbon Dioxide 24 (22-29) mmol/L Anion Gap 12 (12-20) BUN 10 (9-16) mg/dL Creatinine 0.86 (0.5-1.4) mg/dL Estim Creat Clear Calc 193.8 Estimated GFR > 60 Random Glucose 113 (60-115) mg/dL Calcium 9.1 (8.4-10.2) mg/dL Total Bilirubin 0.2 (0.0-1.0) mg/dL AST 11 (5-31) U/L ALT 12 (0-31) U/L Alkaline Phosphatase 75 (39-117) U/L Total Protein 6.9 (6.5-8.0) g/dL Albumin 3.4 L (3.5-5.0) g/dL Lipase 13 (8-78) U/L COVID-19 (VIRGILIO) Negative (Negative) COVID-19 Clin Com See Note Discharge Plan Discharge Clinical Impression: Headache, migraine, Nausea Patient Disposition: Home, Self-Care Instructions: Migraine Headache (ED), Acute Nausea and Vomiting (ED) Additional Instructions: Continue taking her sumatriptan, which you have at home for your headaches. Take 10 mg of Reglan, and 50 mg of Benadryl every 6 hours as needed for migraines. These medications also help with nausea. Follow-up with your primary care provider in 2 days Drink plenty of fluids Return to the emergency department with new or worsening symptoms Prescriptions: New metoclopramide HCl [Reglan] 10 mg tablet 10 mg PO Q6H PRN (Reason: nausea and vomiting) Qty: 14 RF: 0 diphenhydramine HCl [Benadryl Allergy] 25 mg tablet 50 mg PO Q6H PRN (Reason: nausea and vomiting) Qty: 20 RF: 0 No Action ciprofloxacin HCl 500 mg tablet 500 mg PO BID 5 Days Qty: 10 RF: 0 ibuprofen 800 mg tablet 800 mg PO Q8H PRN (Reason: pain) Qty: 14 RF: 0 omeprazole 20 mg capsule,delayed release(DR/EC) 1 cap PO QAM RF: 0 albuterol sulfate [Ventolin HFA] 90 mcg/actuation HFA aerosol inhaler 2 puff PO Q4-6H PRN (Reason: Wheezing) RF: 0 clonidine HCl 0.1 mg Tablet 0.1 mg PO BEDTIME RF: 0 lisinopril 20 mg tablet 1 tab PO DAILY RF: 0 quetiapine [Seroquel] 100 mg Tablet 100 mg PO BEDTIME RF: 0 divalproex [Depakote ER] 500 mg Tablet Extended Release 24 Hr 500 mg PO DAILY RF: 0 fluticasone propionate 50 mcg/actuation spray,suspension 2 spray intranasal DAILY RF: 0 aripiprazole [Abilify] 15 mg Tablet 15 mg PO DAILY RF: 0 spironolactone 100 mg Tablet 100 mg PO DAILY RF: 0 atorvastatin [Lipitor] 80 mg Tablet 80 mg PO DAILY RF: 0 sumatriptan succinate [Imitrex] 50 mg Tablet 50 mg PO Q2-4H PRN (Reason: Migraine Headache) RF: 0 topiramate 50 mg tablet 50 mg PO BID RF: 0 paroxetine HCl 20 mg tablet 20 mg PO BEDTIME RF: 0 (DME) blood pressure test kit-large Kit See Rx Instructions ea .ROUTE DIRECTED Qty: 1 RF: 0 atorvastatin 40 mg tablet 40 mg PO BEDTIME RF: 0 quetiapine 50 mg tablet 50 mg PO BID RF: 0 nitrofurantoin macrocrystal 100 mg capsule 100 mg PO BID RF: 0 phenazopyridine 200 mg tablet 200 mg PO TID PRNRF: 0 meloxicam 15 mg tablet 15 mg PO DAILY 30 Days Qty: 30 RF: 0 Print Language: Ethiopian
--- NOTE | 2021-05-16 15:14 | ECG_ITS ---
Test Reason : GENERAL MEDICAL Blood Pressure : / mmHG Vent. Rate : 060 BPM Atrial Rate : 060 BPM P-R Int : 188 ms QRS Dur : 076 ms QT Int : 424 ms P-R-T Axes : 053 057 059 degrees QTc Int : 424 ms Sinus rhythm with occasional Premature ventricular complexes Nonspecific T wave abnormality Abnormal ECG When compared with ECG of 10-JUN-2020 20:11, Premature ventricular complexes are now Present Referred By: Kwasi Mathews Electronically Signed By:LOPEZ SARAH
[2021-05-16 15:15] VITALS: BP 139/79; PULSE 58; RESP 16; O2SAT 99
[2021-05-16 15:50] LABS: MANUAL DIFF FLAG NO
[2021-05-16] MEDS: Morphine Sulfate 4 MG/ML CARTRIDGE IVPUSH (15:52)
[2021-05-16] MEDS: Metoclopramide HCl 10 MG/2 ML VIAL IVPUSH (15:52)
[2021-05-16] MEDS: diphenhydrAMINE HCL 50 MG/ML VIAL IVPUSH (15:52)
[2021-05-16] MEDS: 0.9 % Sodium Chloride 1,000 ML 999 ML IV (15:53)
[2021-05-16 15:59] LABS: Basophils Absolute Auto 0.1 X10*3/uL (0.0-0.2); Basophils Percent Auto 0.6 % (0-2); Eosinophils Absolute Auto 0.5 X10*3/uL (0.0-0.4); Eosinophils Percent Auto 4.1 % (0-4); Hematocrit 41.5 % (37-47); Hemoglobin 13.4 g/dl (12.0-16.0); Imm Gran Abs Auto 0.12 X10*3/uL (0.00-0.03); Imm Gran Pct Auto 0.9 % (0.0-0.4); Lymphocytes Absolute Auto 3.4 X10*3/uL (1.2-4.9); Mean Corpuscular HGB Conc 32.3 g/dl (31.0-35.0); Mean Corpuscular Hemoglobin 30.1 pg (27.0-33.0); Mean Corpuscular Volume 93.3 fL (80-98); Mean Platelet Volume 9.8 fL (9.4-12.3); Monocytes Percent Auto 7.7 % (2-11); Neutrophils Absolute Auto 7.6 X10*3/uL (2.0-8.3); Neutrophils Percent Auto 59.7 % (45-73); Platelet Count 323 X10*3/uL (160-400); Red Blood Count 4.45 X10*6/uL (4.20-5.50); Red Cell Distribution Width 13.4 % (11.0-16.0); White Blood Count 12.7 X10*3/uL (4.8-10.8)
[2021-05-16 16:08] LABS: COVID-19 Test Negative (Negative)
[2021-05-16 16:09] LABS: Alanine Aminotransferase 12 U/L (0-31); Albumin Level 3.4 g/dL (3.5-5.0); Alkaline Phosphatase 75 U/L (39-117); Anion Gap 12 (12-20); Aspartate Amino Transferase 11 U/L (5-31); Bilirubin Total 0.2 mg/dL (0.0-1.0); Blood Urea Nitrogen 10 mg/dL (9-16); Calcium 9.1 mg/dL (8.4-10.2); Carbon Dioxide 24 mmol/L (22-29); Chloride 109 mmol/L (96-108); Creatinine Clr Calc Pharmacy 193.8; Estimated Glomerular Filt Rate > 60; Glucose Random 113 mg/dL (60-115); Lipase 13 U/L (8-78); Potassium 4.3 mmol/L (3.3-5.1); Sodium 141 mmol/L (135-145); Total Protein 6.9 g/dL (6.5-8.0)
[2021-05-16 17:49] VITALS: BP 137/77; PULSE 53; RESP 15; TEMP 37.1; O2SAT 98
== END 2021-05-16 18:15 | disposition home or self-care (01) ==
PROVIDERS: Emergency Provider Emergency Medicine Emergency Medical Services; PCP Family Medicine
DX: G43.909 Migraine, unspecified, not intractable, without status migrainosus (principal); I10 Essential (primary) hypertension; R11.2 Nausea with vomiting, unspecified; Z20.822 Contact with and (suspected) exposure to COVID-19; F17.200 Nicotine dependence, unspecified, uncomplicated; Z71.6 Tobacco abuse counseling; Z79.899 Other long term (current) drug therapy
CPT/HCPCS: 36415; 80053; 83690; 85025; 87635; 93005; 96361; 96374; 96375; 99284; J1200; J2270; J2765

== ENCOUNTER → 2021-06-11 15:41 | Outpatient (BNVA) | payer OTHER, SELFPAY | PROVIDERS: PCP Family Medicine; Visit Provider Physician Assistant | DX: M17.0 Bilateral primary osteoarthritis of knee (principal) | CPT/HCPCS: 20610; 99212; J1040 ==

== ENCOUNTER → 2021-06-14 14:14 | Outpatient (BNVA) | payer OTHER, SELFPAY | PROVIDERS: PCP Family Medicine; Referring Provider Family Medicine; Visit Provider Surgery | DX: N63.20 Unspecified lump in the left breast, unspecified quadrant (principal); F17.200 Nicotine dependence, unspecified, uncomplicated; Z71.6 Tobacco abuse counseling | CPT/HCPCS: 99202 ==

== ENCOUNTER 2021-06-18 15:09 | Outpatient (REF) | payer OTHER, SELFPAY ==
--- NOTE | ~2021-06-18 | US_ITS ---
EXAMINATION: US RETROPERITONEAL LIMITED (RENAL ONLY) CLINICAL INFORMATION: Calculus of kidney. COMPARISON: Renal ultrasound 10/05/2020. CT abdomen and pelvis 09/28/2020. TECHNIQUE: Real-time imaging of the kidneys. FINDINGS: RIGHT KIDNEY: 12.0 x 6.9 x 6.6 cm (SAG x AP x TRV). The kidney is normal in size, contour, and echogenicity. Renal cortical thickness is normal. There are multiple stones. Largest measure 5 and 6 mm in the mid and lower pole. No focal parenchymal lesions or hydronephrosis. LEFT KIDNEY: 12.5 x 6.4 x 6.3 cm (SAG x AP x TRV). The kidney is normal in size, contour, and echogenicity. Renal cortical thickness is normal. There are multiple renal stones. Largest measures 7 x 3 x 4 mm in the midpole. No focal parenchymal lesions or hydronephrosis. US/US renal BI IMPRESSION: Bilateral renal stones.
== END 2021-06-18 15:10 | disposition home or self-care (01) ==
LOC: HO.US 15:09
PROVIDERS: PCP Family Medicine; Visit Provider Urology
DX: N20.0 Calculus of kidney (principal)
CPT/HCPCS: 76775

== ENCOUNTER 2021-07-05 09:46 | Outpatient (REF) | payer OTHER, SELFPAY ==
--- NOTE | ~2021-07-05 | US_ITS ---
EXAMINATION: US ABDOMEN COMPLETE CLINICAL INFORMATION: Fatty liver. COMPARISON: Renal ultrasound 06/18/2021. Ultrasound abdomen complete 10/12/2020. CT abdomen and pelvis 09/28/2020. TECHNIQUE: Real-time imaging of the abdominal viscera. FINDINGS: PANCREAS: Normal. ABDOMINAL AORTA: The proximal, mid, and distal segments are normal in caliber. INFERIOR VENA CAVA: Visualized portions are normal. LIVER: The liver is normal in size. The liver contour is normal. There is increased echogenicity. No focal hepatic lesion. There is no intrahepatic biliary duct dilatation seen. GALLBLADDER: Normal. The gallbladder is physiologically distended without evidence of stones, sludge, polyps, wall thickening or pericholecystic fluid. COMMON BILE DUCT: Normal in caliber measuring 0.4 cm in diameter. RIGHT KIDNEY: There is an echogenic stone midpole measuring 0.5 x 0.4 x 0.4 cm and a 0.4 x 0.3 x 0.3 cm in upper pole. No caliectasis. No hydronephrosis or focal parenchymal lesions. The kidney measures 12.4 cm in maximum dimension. LEFT KIDNEY: There is an echogenic stone in the upper pole measuring 0.4 x 0.4 x 0.3 cm without caliectasis. No hydronephrosis or focal parenchymal lesions. The kidney measures 13.1 cm in maximum dimension. SPLEEN: Normal. The spleen measures 9.0 cm in maximum dimension. FREE FLUID: None. US/US abdomen complete IMPRESSION: Bilateral nonobstructive echogenic renal calculi. No hydronephrosis. Mild hepatic steatosis without focal lesion.
== END 2021-07-05 09:47 | disposition home or self-care (01) ==
LOC: HO.HMGCX 09:46
PROVIDERS: PCP Family Medicine; Visit Provider Family Medicine
DX: K76.0 Fatty (change of) liver, not elsewhere classified (principal)
CPT/HCPCS: 76700

== ENCOUNTER 2021-10-22 07:29 | Day surgery (SDC) | payer OTHER, SELFPAY ==
[2021-10-16 14:10] VITALS: BMI 64.8
[2021-10-22] VITALS (8 sets, daily range): BP systolic 113–143; BP diastolic 66–87; PULSE 61–73; RESP 16–20; TEMP 36.2–36.3; O2SAT 94–97
--- NOTE | 2021-10-22 09:17 | HO.ANESPROP2 ---
[facility] Active Problems Active Problems: All Active Problems (Updated 10/16/21 @ 14:08 by Renata Sevilla, RN) Nephrolithiasis (Acute) Chronic UTI (urinary tract infection) (Acute) Leukocytosis (leucocytosis) (Acute) Knee pain (Acute) Osteoarthritis of knees, bilateral (Acute) Morbid obesity (Acute) Left breast mass (Acute) Kidney stone (Acute) Past Medical History Medical History Asthma Chronic pain Depression Fatty liver Frequent UTI HTN (hypertension) Hyperlipidemia Kidney stone Leukocytosis Mass of throat Migraine Obesity YAMILETH on CPAP PTSD (post-traumatic stress disorder) Smoker Family History Family History Father Hypertension Mother Hypertension Osteoporosis Hx of bilateral cataract extraction Paternal Grandmother Diabetes Sister Asthma Maternal Uncle Throat cancer Maternal Aunt Ovarian cancer Breast cancer Surgical History Surgical History H/O: hysterectomy History of breast lump/mass excision History of endometrial ablation History of lithotripsy History of tonsillectomy Hx of colonoscopy Social History Social History (Updated 10/02/21 @ 11:10 by Whitney Montiel CMA) Household Members: Family Housing: Apartment Are you a primary acute care nurse practitioner to a significant other at home: No Do you presently have visiting nurse or other home services: No Alcohol intake: former Patient Tobacco Use Status: Current everyday Tobacco user Tobacco use type: Cigarette Cigarette Packs Per Day: 1 Cigarettes Per Day: 20.0 Use of substances other than those prescribed or required for medical reasons: No Are you DNR?: No Advance Directives: No Advance Directives Information Provided: Yes service: No Current occupational status: unemployed Meds Allergies Allergy/AdvReac Type Severity Reaction Status Date / Time aspirin [ASPIRIN] Allergy Severe DIFFICULTY Verified 10/22/21 09:25 BREATHING, anaphylaxis penicillin G [PENICILLIN G] Allergy Severe DIFFICULTY Verified 10/22/21 09:25 BREATHING Active Medications: Current Medications Lactated Ringer's (Lr) 1,000 mls @ 100 mls/hr IVCONT .Q10H ANDREW Vancomycin HCl 1,000 mg/ (Sodium Chloride) 270 mls @ 270 mls/hr IV PREOP ONE Stop: 10/22/21 10:01 Pharmacy Consult (Consult Rx Vancomycin Dosing) 1 each MISCELLANE DAILY PRN PRN Reason: Consult order Home Medications Medication Instructions Recorded Confirmed Last Taken Type albuterol sulfate 2.5 mg INHALATION NEEDED 11/03/20 10/16/21 Unknown History baclofen 10 mg tablet 10 mg PO TID PRN 11/03/20 10/16/21 Unknown History ergocalciferol (vitamin D2) 1,250 1,250 mcg PO QWEEK 11/03/20 10/16/21 Unknown History mcg (50,000 unit) capsule fluticasone propionate 110 2 puff INHALATION BID 11/03/20 10/16/21 Unknown History mcg/actuation HFA aerosol inhaler tramadol 50 mg tablet 50 mg PO TID PRN 11/03/20 10/16/21 Unknown History albuterol sulfate 90 mcg/actuation 2 puff PO Q4-6H PRN 12/01/20 10/16/21 Unknown History aerosol inhaler (Ventolin HFA) aripiprazole 15 mg tablet (Abilify) 15 mg PO DAILY 12/01/20 10/16/21 Unknown History atorvastatin 80 mg tablet (Lipitor) 80 mg PO DAILY 12/01/20 10/16/21 Unknown History clonidine HCl 0.1 mg tablet 0.1 mg PO BEDTIME 12/01/20 10/16/21 Unknown History divalproex 500 mg tablet,extended 500 mg PO DAILY 12/01/20 10/16/21 Unknown History release 24 hr (Depakote ER) fluticasone propionate 50 2 spray INTRANASAL DAILY 12/01/20 10/16/21 Unknown History mcg/actuation nasal spray,suspension omeprazole 20 mg capsule,delayed 1 cap PO QAM 12/01/20 10/16/21 Unknown History release quetiapine 100 mg tablet (Seroquel) 100 mg PO BEDTIME 12/01/20 10/16/21 Unknown History spironolactone 100 mg tablet 100 mg PO DAILY 12/01/20 10/16/21 Unknown History sumatriptan succinate 50 mg tablet 50 mg PO Q2-4H PRN 12/01/20 10/16/21 Unknown History (Imitrex) blood pressure test kit-large #1 ea 12/19/20 10/02/21 Unknown History paroxetine HCl 20 mg tablet 20 mg PO BEDTIME 12/19/20 10/16/21 Unknown History quetiapine 50 mg tablet 50 mg PO BID 12/19/20 10/16/21 Unknown History topiramate 50 mg tablet 50 mg PO BID 12/19/20 10/16/21 Unknown History amitriptyline 10 mg tablet 10 mg PO BEDTIME 06/14/21 10/16/21 Unknown History naloxone 4 mg/actuation nasal 4 spray INTRANASAL DAILY 06/14/21 10/16/21 Unknown History spray (Narcan) ondansetron 4 mg disintegrating 4 mg PO DAILY 06/14/21 10/16/21 Unknown History tablet lisinopril 30 mg tablet 1 tab PO DAILY 10/16/21 10/16/21 Unknown History metformin 500 mg tablet,extended 1 tab PO QPM 10/16/21 10/16/21 Unknown History release 24 hr Exam Exam Date and Time: October 22, 2021 0917 Height,Weight and Vital Signs: Height 5 ft 6 in Weight 182.3 kg Airway Mallampati Class: III TM Dist: >3cm Neck ROM: Full Loose/Missing/Broken Teeth: Yes (Loose teeth lower central 2) Heart: RRR Lungs: CTA Assessment and Plan Assessment Anesthesia Assessment: Anesthesia Plan Discussed and Chart Reviewed Final Anesthetic Review NPO: Yes ASA Class: III Final Preanesthetic Review: Meds/Allgs Chart Reviewed, Consent Obtained/Reviewed and Anes Risks/Benef Reviewed Patient Risk: Intermediate Procedure Risk: Low Anesthetic Plan Anesthetic Plan: MAC: Disposition: Standard PACU
[2021-10-22] MEDS: Lactated Ringers 1,000 ML 100 ML IVCONT (09:29)
--- NOTE | 2021-10-22 11:04 | MHC.SHP ---
Pre-Procedural Eval Section A Date of Service: 10/22/21 The patient is an INPATIENT: No Changes since office visit: Yes Patient answered all questions; No Cold of Flu in the past 2 weeks, No New Medical Problems and No Changes in Medication The History & Physical has been completed within 30 days and I have reviewed it.: Yes Section B Chief Complaint: lump left breast Allergies: Allergies Allergy/AdvReac Type Severity Reaction Status Date / Time aspirin [ASPIRIN] Allergy Severe DIFFICULTY Verified 10/22/21 09:25 BREATHING, anaphylaxis penicillin G [PENICILLIN G] Allergy Severe DIFFICULTY Verified 10/22/21 09:25 BREATHING Plan Diagnosis/Plan: Unchanged I have reviewed the history and physical and performed a pertinent physical examination on my patient. No changes have occurred unless specified.
--- NOTE | 2021-10-22 11:05 | W.PM.OPN ---
Operative Note Operative Note Date of Service: 10/22/21 Narrative: Preoperative diagnosis:Left breast mass Postoperative diagnosis:same Procedure:Excision of left breast mass Surgeon: Man Oviedo MD Intelligence Director: Aleksandra aSwyer PA-C Anesthesia:MAC plus local Indications for procedure:46 year old female presenting with a painful lump in the left breast below the nipple in the 3 o'clock location. Operative findings:Cystic lesion below left nipple 0.75 cm in diameter Specimen: mass left breast Estimated blood loss:2 mls Complications:none Procedure details:Patient was brought to the OR placed in a supine position. After administering general anesthesia the patient's left breast was prepped with ChloraPrep and draped in a sterile fashion. A surgical time-out was called and the consent confirmed. Patient received preoperative antibiotics and Venodyne boots were in place. Local anesthesia consisting of 1% lidocaine with epinephrine was then infiltrated around the 9 o'clock position of the nipple-areolar complex. Curvilinear incision was then made with a scalpel. Additional local was infiltrated including incision was carried down through subcutaneous tissue. Dissection was continued below the areola toward the nipple and the lesion grasped with an Allis clamp. Electrocautery was then used to dissect the lesion from the surrounding breast tissue. Hemostasis was assured using electrocautery. The lesion was completely excised and sent to pathology for further examination. Dermis was reapproximated with 3-0 polysorb. Skin was closed with a running 4-0 Polysorb suture. Steristrips and tegaderm was applied. The patient tolerated the procedure well and was discharged to PACU in stable condition.
[2021-10-22] MEDS: Acetaminophen 325 MG TABLET 650 MG PO (11:39)
[2021-10-22] MEDS: fentaNYL citrate/PF 100 MCG/2 ML VIAL 25 MCG IVPUSH (11:41)
[2021-10-22] MEDS: oxyCODONE HCl Immed Release 5 MG TABLET PO (11:50)
[2021-10-22] MEDS: Ondansetron ODT 4 MG TAB.RAPDIS TRANSLINGU (13:00)
== END 2021-10-22 13:57 | disposition home or self-care (01) ==
PROVIDERS: PCP Family Medicine; Visit Provider Surgery
PROC: (CPT 19120; principal; 2021-10-22 10:20)
DX: N60.02 Solitary cyst of left breast (principal); N60.32 Fibrosclerosis of left breast; G89.29 Other chronic pain; I10 Essential (primary) hypertension; Z88.0 Allergy status to penicillin; Z88.8 Allergy status to other drugs, medicaments and biological substances; F17.210 Nicotine dependence, cigarettes, uncomplicated; E66.9 Obesity, unspecified; Z68.44 Body mass index [BMI] 60.0-69.9, adult
CPT/HCPCS: 19120; 88305; J2250; J3010; J3370

== ENCOUNTER → 2021-11-08 15:31 | Outpatient (BNVA) | payer OTHER, SELFPAY | PROVIDERS: PCP Family Medicine; Visit Provider Surgery | DX: Z48.817 Encounter for surgical aftercare following surgery on the skin and subcutaneous tissue (principal); N63.20 Unspecified lump in the left breast, unspecified quadrant | CPT/HCPCS: 99212 ==

== ENCOUNTER 2022-02-11 14:54 | Outpatient (REF) | payer OTHER, SELFPAY ==
--- NOTE | ~2022-02-11 | MM_ITS ---
EXAMINATION: MM SCREENING DIGITAL BREAST TOMOSYNTHESIS, BILATERAL CLINICAL INFORMATION: Screening. Asymptomatic. The lifetime risk of breast cancer based on the Tyrer-Cuzick Model is 9%. COMPARISON: Mammography: 02/06/2021, 08/12/2019; targeted left breast ultrasound 02/06/2021 TECHNIQUE: Digital breast tomosynthesis is performed in both the craniocaudal and mediolateral oblique views along with computer-aided detection (CAD). Synthesized 2D images are generated from the tomosynthesis. Additional left CC and bilateral MLO views are obtained. FINDINGS: There are scattered areas of fibroglandular density (ACR BI-RADS breast composition Category b). Parenchymal pattern is similar to prior studies. There is some fine fibronodular changes seen anterior left breast similar to prior study. No significant mass or architectural abnormality. Again, there are scattered bilateral round and rim calcifications. The axilla and skin contours are unremarkable. No significant changes from prior study. MM/MM tomosynthesis screening BI IMPRESSION: No significant changes from prior exam. ASSESSMENT: BI-RADS 2: Benign RECOMMENDATION: Routine annual mammography screening. This patient's information was entered into a reminder system with a target due date for their next mammogram.
== END 2022-02-11 14:55 | disposition home or self-care (01) ==
LOC: HO.MAMMO 14:54
PROVIDERS: PCP Family Medicine; Visit Provider Family Medicine
DX: Z12.31 Encounter for screening mammogram for malignant neoplasm of breast (principal)
CPT/HCPCS: 77063; 77067

== ENCOUNTER 2022-02-21 10:08 | Day surgery (SDC) | payer OTHER, SELFPAY ==
[2022-02-21] VITALS (13 sets, daily range): BP systolic 128–175; BP diastolic 39–93; PULSE 56–98; RESP 14–20; TEMP 36.1–37.1; O2SAT 94–99; BMI 58.8
--- NOTE | ~2022-02-21 | FL_ITS ---
EXAMINATION: XR FLUOROSCOPY WITH IMAGES CLINICAL INFORMATION: Cystoscopy, urethroscopy with right stent insertion. COMPARISON: None. TECHNIQUE: Fluoroscopy performed by Dr. Irvin Jeffries. Fluoroscopy time: 49.1 seconds Dose: 42.3 mGycm2 Images: [1 FL/FL guidance in OR FINDINGS/IMPRESSION: There is a single image of the abdomen revealing a catheter with the guidewire in the proximal ureter and pelvic region. No radiopaque calculi seen on this image. Visualized bones are grossly unremarkable.
--- NOTE | ~2022-02-21 | CT_ITS ---
EXAMINATION: CT ABDOMEN AND PELVIS WITHOUT CONTRAST CLINICAL INFORMATION: Right-sided flank pain COMPARISON: Ultrasound abdomen 07/05/2021, CT abdomen and pelvis 09/28/2020 TECHNIQUE: Multidetector volumetric imaging was performed from the superior aspect of the liver through the pubic symphysis. Sagittal and coronal reformatted images were obtained on the technologist's workstation. This CT examination was performed using dose optimization techniques as appropriate, variously including the following: *Automated exposure control *Adjustment of mA and/or kV according to patient size (this includes techniques or standardized protocols for targeted exams where dose is matched to indication/reason for exam; i.e. extremities or head) *Use of iterative reconstruction technique DLP: 1585 mGy-cm FINDINGS: LUNG BASES: The visualized lung bases are unremarkable. LIVER, GALLBLADDER, AND BILIARY TREE: The liver is enlarged measuring 22.8 cm in greatest cephalocaudad dimension with normal attenuation. However, echogenicity was increased on ultrasound suggesting hepatic steatosis. No focal hepatic lesion or biliary ductal dilatation is present. The gallbladder is unremarkable with no evidence of radiopaque gallstones, gallbladder wall thickening, or obvious pericholecystic inflammatory changes. PANCREAS: Unremarkable. SPLEEN: Unremarkable. A splenule is seen. ADRENAL GLANDS: Unremarkable. KIDNEYS AND URETERS: Right kidney: There is an obstructing 6 mm proximal ureteral calculus with associated hydronephrosis. This measures 951 Hounsfield units and the 19 cm from the posterior axillary line. 3 punctate nonobstructing intrarenal calculi are present. No renal masses are seen. The distal right ureter is normal. Left kidney: 2 punctate nonobstructing renal calculi are present with 2 larger 3 and 4 mm nonobstructing calculi present. No left-sided hydronephrosis is seen. No renal masses. The left ureter appears normal. BLADDER: Unremarkable. GASTROINTESTINAL TRACT: The small and large bowel are unremarkable. The appendix is none seen but there is no evidence of appendicitis. ABDOMINAL WALL: No significant hernia is appreciated. LYMPH NODES: No retroperitoneal lymphadenopathy. VASCULAR: Unremarkable. PELVIC VISCERA: Unremarkable. OSSEOUS STRUCTURES: Mild degenerative changes in the spine, most marked in the lower thoracic region. CT/CT abdomen pelvis wo con IMPRESSION: 1. There is an obstructing 6 mm proximal right ureteral calculus with hydronephrosis. 2. There are bilateral nonobstructing intrarenal calculi present. Fleischner guidelines were followed.
--- NOTE | 2022-02-21 08:41 | ED_ITS ---
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 Mode of arrival: ambulatory Limitations: no limitations History of Present Illness MD elicited complaint: abdominal pain Pertinent past history: kidney stones Onset (ago): day(s) (1) Pain Consistency: constant Location: R flank Severity: severe Quality: stabbing Radiation: none Migration to: no migration Exacerbating factors: nothing Relieving factors: nothing Context: history of similar episodes Associated symptoms: nausea, vomiting and other (also noted that she had 3 episodes of hard stools and noted blood in her stool, [facility] and hasn't had her menses in a year) Related Data Home Medications Medication Instructions Recorded Confirmed albuterol sulfate 2.5 mg inhalation NEEDED 11/03/20 11/09/21 baclofen 10 mg tablet 10 mg PO TID PRN muscle spasm 11/03/20 11/09/21 ergocalciferol (vitamin D2) 1,250 1,250 mcg PO QWEEK 11/03/20 11/09/21 mcg (50,000 unit) capsule fluticasone propionate 110 2 puff inhalation BID 11/03/20 11/09/21 mcg/actuation HFA aerosol inhaler tramadol 50 mg tablet 50 mg PO TID PRN Pain 11/03/20 11/09/21 albuterol sulfate 90 mcg/actuation 2 puff PO Q4-6H PRN Wheezing 12/01/20 11/09/21 aerosol inhaler (Ventolin HFA) aripiprazole 15 mg tablet (Abilify) 15 mg PO DAILY 12/01/20 11/09/21 atorvastatin 80 mg tablet (Lipitor) 80 mg PO DAILY 12/01/20 11/09/21 clonidine HCl 0.1 mg tablet 0.1 mg PO BEDTIME 12/01/20 11/09/21 divalproex 500 mg tablet,extended 500 mg PO DAILY 12/01/20 11/09/21 release 24 hr (Depakote ER) fluticasone propionate 50 2 spray intranasal DAILY 12/01/20 11/09/21 mcg/actuation nasal spray,suspension omeprazole 20 mg capsule,delayed 1 cap PO QAM 12/01/20 11/09/21 release quetiapine 100 mg tablet (Seroquel) 100 mg PO BEDTIME 12/01/20 11/09/21 spironolactone 100 mg tablet 100 mg PO DAILY 12/01/20 11/09/21 sumatriptan succinate 50 mg tablet 50 mg PO Q2-4H PRN Migraine 12/01/20 11/09/21 (Imitrex) Headache blood pressure test kit-large #1 ea 12/19/20 11/09/21 paroxetine HCl 20 mg tablet 20 mg PO BEDTIME 12/19/20 11/09/21 quetiapine 50 mg tablet 50 mg PO BID 12/19/20 11/09/21 topiramate 50 mg tablet 50 mg PO BID 12/19/20 11/09/21 amitriptyline 10 mg tablet 10 mg PO BEDTIME 06/14/21 11/09/21 naloxone 4 mg/actuation nasal 4 spray intranasal DAILY 06/14/21 11/09/21 spray (Narcan) ondansetron 4 mg disintegrating 4 mg PO DAILY 06/14/21 11/09/21 tablet lisinopril 30 mg tablet 1 tab PO DAILY 10/16/21 11/09/21 metformin 500 mg tablet,extended 1 tab PO QPM 10/16/21 11/09/21 release 24 hr Previous Rx's Medication Instructions Recorded ibuprofen 800 mg tablet 800 mg PO Q8H PRN pain #14 tabs 09/28/20 meloxicam 15 mg tablet 15 mg PO DAILY pain 30 days #30 12/19/20 tabs metoclopramide HCl 10 mg tablet 10 mg PO Q6H PRN nausea and 05/16/21 (Reglan) vomiting #14 tabs oxycodone-acetaminophen 5 mg-325 1 tab PO Q6H PRN pain (scale score 10/22/21 mg tablet (Endocet) 7-10) #14 tabs Allergies Allergy/AdvReac Type Severity Reaction Status Date / Time aspirin [ASPIRIN] Allergy Severe DIFFICULTY Verified 11/08/21 16:04 BREATHING, anaphylaxis penicillin G [PENICILLIN G] Allergy Severe DIFFICULTY Verified 11/08/21 16:04 BREATHING Review of Systems Review of Systems Constitutional : No Fever, No Chills ENT/Mouth : No sore throat Eyes: No Eye Pain, No Swelling, No Redness Cardiovascular : No Chest Pain, No SOB Respiratory : No Cough, No Sputum, No Wheezing Gastrointestinal : positive Nausea, positive Vomiting, No Diarrhea, positive abdominal pain Genitourinary : positive Dysuria, positive urinary frequency, positive Hematu paola, positive Flank Pain, positive hesitancy Musculoskeletal : No joint pain, No Myalgias Skin : No Skin Lesions, No rash Neuro : No Weakness, No Numbness, No Headache Psych : No Anxiety/Panic, No Depression Heme/Lymph: No Bruising, No Lymphadenopathy Endocrine : No Polyuria, No Polydipsia All other systems reviewed and are negative [facility] Past Medical History Attestation statement: The following information was validated with the patient. Medical History Asthma Chronic pain Depression Fatty liver Frequent UTI HTN (hypertension) Hyperlipidemia Kidney stone Leukocytosis Mass of throat Migraine Obesity YAMILETH on CPAP PTSD (post-traumatic stress disorder) Smoker Surgical History H/O: hysterectomy History of breast lump/mass excision History of endometrial ablation History of lithotripsy History of lumpectomy of left breast (10/22/21) History of tonsillectomy Hx of colonoscopy Family History Family History Father Hypertension Mother Hypertension Osteoporosis Hx of bilateral cataract extraction Paternal Grandmother Diabetes Sister Asthma Maternal Uncle Throat cancer Maternal Aunt Ovarian cancer Breast cancer Social History Social History Household Members: Family Housing: Apartment Are you a primary infant caregiver to a significant other at home: No Do you presently have visiting nurse or other home services: No Alcohol intake: never Patient Tobacco Use Status: Current everyday Tobacco user Tobacco use type: Cigarette Cigarette Packs Per Day: 1 Cigarettes Per Day: 20.0 Use of substances other than those prescribed or required for medical reasons: No Advance Directives: No Advance Directives Information Provided: Yes Patient : No service: No Current occupational status: unemployed Physical Exam ED Vital Signs: Vital Signs - 24 hr 02/21/22 08:37 02/21/22 11:03 02/21/22 12:22 Temperature 97 F 98.7 F 97.7 F Pulse Rate 80 67 63 Respiratory Rate 20 17 18 Blood Pressure 175/93 H 146/71 H 130/69 Pulse Oximetry 97 97 96 Oxygen Delivery Method Room Air Room Air Room Air BMI result Body Mass Index 58.8 Appearance: Alert. Oriented X3. anxious in pain mild acute distress. Eyes: Pupils equal, round and reactive to light. ENT: Pharynx normal. Neck: Normal inspection. Neck supple. CVS: Normal heart rate and rhythm. Pulses normal. Respiratory: No respiratory distress. Breath sounds normal. Abdomen: Soft and obese with R sided abdominal pain Rectal: hemorrhoids noted, pinkish stool noted on fingertip Skin: Skin warm and dry. Normal skin color. Normal skin turgor. Extremities: No lower extremity edema. No calf ttp Neuro: Oriented X 3. No motor deficit. No sensory deficit. Course Course Course Narrative: message sent to Dr. Bryan given obstructive 6mm stone likely procedure today with Dr. Bryan MDM - Abdominal Pain MDM Narrative Medical decision making narrative: 46 yo female with hx of obesity, UTI, kidney stones s/p hx of stents and ESWL comes in with 1 day of R flank pain with n/v. She also notes constipation and had a bout of blood on her stool with difficulty passing stool. At this time will need labs, guiac stool. CT scan for colitis/renal colic. IV morphine for pain. Dispo per result and findings. Lab Data Result diagrams: 02/21/22 09:38 02/21/22 09:38 Labs: Lab Results 02/21/22 02/21/22 02/21/22 Range/Units 08:39 09:38 09:38 WBC 12.7 H (4.8-10.8) X10*3/uL RBC 4.30 (4.20-5.50) X10*6/uL Hgb 12.8 (12.0-16.0) g/dl Hct 39.9 (37.0-47.0) % MCV 92.8 (80.0-98.0) fL MCH 29.8 (27.0-33.0) pg MCHC 32.1 (31.0-35.0) g/dl RDW 14.3 (11.0-16.0) % Plt Count 300 (160-400) X10*3/uL MPV 9.6 (9.4-12.3) fL Immature Gran % (Auto) 1.3 H (0.0-0.4) % Neut % (Auto) 61.8 (45-73) % Lymph % (Auto) 25.5 (20-40) % [place] % (Auto) 8.3 (2-11) % Eos % (Auto) 2.8 (0-4) % Baso % (Auto) 0.3 (0-2) % Lymph # (Auto) 3.2 (1.2-4.9) X10*3/uL [place] # (Auto) 1.1 (0.1-1.2) X10*3/uL Eos # (Auto) 0.4 (0.0-0.4) X10*3/uL Baso # (Auto) 0.0 (0.0-0.2) X10*3/uL Abs Immat Gran (auto) 0.17 H (0.00-0.03) X10*3/uL Absolute Neuts (auto) 7.8 (2.0-8.3) x10*3/uL Absolute Nucleated RBC 0.000 (0.0-0.012) X10*3/uL Nucleated RBC % (auto) 0.0 (0.0-0.2) /100WBC Sodium 139 (135-145) mmol/L Potassium 4.0 (3.3-5.1) mmol/L Chloride 107 (96-108) mmol/L Carbon Dioxide 26 (22-29) mmol/L Anion Gap 10 L (12-20) BUN 9 (9-16) mg/dL Creatinine 0.91 (0.5-1.4) mg/dL Estim Creat Clear Calc 142.3 Estimated GFR > 60 Random Glucose 131 H (60-115) mg/dL Calcium 8.8 (8.4-10.2) mg/dL Total Bilirubin (0.0-1.0) mg/dL Direct Bilirubin (0.0-0.5) mg/dL AST (5-31) U/L ALT (0-31) U/L Alkaline Phosphatase (39-117) U/L Total Protein (6.5-8.0) g/dL Albumin (3.5-5.0) g/dL Lipase (8-78) U/L Urine Color YELLOW Urine Appearance HAZY Urine pH 6.0 (5.0-8.0) Ur Specific [place] 1.025 (1.005-1.025) Urine Protein 1+ H (NEG-TRACE) MG/DL Urine Glucose (UA) NEG (NEG) MG/DL Urine Ketones NEG (NEG) MG/DL Urine Blood 3+ H (NEG) Urine Nitrite NEG (NEG) Ur Leukocyte Esterase NEG (NEG) Urine RBC 50-75 H (0) /HPF Urine WBC 0-2 (0-4) /HPF Ur Squamous Epith Cells 1+ /LPF Ur Renal Epithelial Cell 1+ /LPF Urine Bacteria TRACE /LPF Stool Occult Blood (NEGATIVE) COVID-19 (VIRGILIO) (Negative) COVID-19 Clin Com 02/21/22 02/21/22 02/21/22 Range/Units 09:38 09:39 11:48 WBC (4.8-10.8) X10*3/uL RBC (4.20-5.50) X10*6/uL Hgb (12.0-16.0) g/dl Hct (37.0-47.0) % MCV (80.0-98.0) fL MCH (27.0-33.0) pg MCHC (31.0-35.0) g/dl RDW (11.0-16.0) % Plt Count (160-400) X10*3/uL MPV (9.4-12.3) fL Immature Gran % (Auto) (0.0-0.4) % Neut % (Auto) (45-73) % Lymph % (Auto) (20-40) % [place] % (Auto) (2-11) % Eos % (Auto) (0-4) % Baso % (Auto) (0-2) % Lymph # (Auto) (1.2-4.9) X10*3/uL [place] # (Auto) (0.1-1.2) X10*3/uL Eos # (Auto) (0.0-0.4) X10*3/uL Baso # (Auto) (0.0-0.2) X10*3/uL Abs Immat Gran (auto) (0.00-0.03) X10*3/uL Absolute Neuts (auto) (2.0-8.3) x10*3/uL Absolute Nucleated RBC (0.0-0.012) X10*3/uL Nucleated RBC % (auto) (0.0-0.2) /100WBC Sodium (135-145) mmol/L Potassium (3.3-5.1) mmol/L Chloride (96-108) mmol/L Carbon Dioxide (22-29) mmol/L Anion Gap (12-20) BUN (9-16) mg/dL Creatinine (0.5-1.4) mg/dL Estim Creat Clear Calc Estimated GFR Random Glucose (60-115) mg/dL Calcium (8.4-10.2) mg/dL Total Bilirubin 0.3 (0.0-1.0) mg/dL Direct Bilirubin < 0.2 (0.0-0.5) mg/dL AST 10 (5-31) U/L ALT 12 (0-31) U/L Alkaline Phosphatase 86 (39-117) U/L Total Protein 6.8 (6.5-8.0) g/dL Albumin 3.5 (3.5-5.0) g/dL Lipase 13 (8-78) U/L Urine Color Urine Appearance Urine pH (5.0-8.0) Ur Specific [place] (1.005-1.025) Urine Protein (NEG-TRACE) MG/DL Urine Glucose (UA) (NEG) MG/DL Urine Ketones (NEG) MG/DL Urine Blood (NEG) Urine Nitrite (NEG) Ur Leukocyte Esterase (NEG) Urine RBC (0) /HPF Urine WBC (0-4) /HPF Ur Squamous Epith Cells /LPF Ur Renal Epithelial Cell /LPF Urine Bacteria /LPF Stool Occult Blood NEGATIVE (NEGATIVE) COVID-19 (VIRGILIO) Negative (Negative) COVID-19 Clin Com See Note Discharge Plan Discharge Clinical Impression: Ureterolithiasis Patient Disposition: Admitted As Inpatient Prescriptions: No Action ibuprofen 800 mg tablet 800 mg PO Q8H PRN (Reason: pain) Qty: 14 0RF omeprazole 20 mg capsule,delayed release(DR/EC) 1 cap PO QAM albuterol sulfate [Ventolin HFA] 90 mcg/actuation HFA aerosol inhaler 2 puff PO Q4-6H PRN (Reason: Wheezing) clonidine HCl 0.1 mg Tablet 0.1 mg PO BEDTIME quetiapine [Seroquel] 100 mg Tablet 100 mg PO BEDTIME divalproex [Depakote ER] 500 mg Tablet Extended Release 24 Hr 500 mg PO DAILY fluticasone propionate 50 mcg/actuation spray,suspension 2 spray intranasal DAILY aripiprazole [Abilify] 15 mg Tablet 15 mg PO DAILY spironolactone 100 mg Tablet 100 mg PO DAILY atorvastatin [Lipitor] 80 mg Tablet 80 mg PO DAILY sumatriptan succinate [Imitrex] 50 mg Tablet 50 mg PO Q2-4H PRN (Reason: Migraine Headache) metoclopramide HCl [Reglan] 10 mg tablet 10 mg PO Q6H PRN (Reason: nausea and vomiting) Qty: 14 0RF lisinopril 30 mg tablet 1 tab PO DAILY metformin 500 mg tablet extended release 24 hr 1 tab PO QPM oxycodone-acetaminophen [Endocet] 5-325 mg tablet 1 tab PO Q6H PRN (Reason: pain (scale score 7-10)) Qty: 14 0RF baclofen 10 mg tablet 10 mg PO TID PRN (Reason: muscle spasm) tramadol 50 mg tablet 50 mg PO TID PRN (Reason: Pain) ergocalciferol (vitamin D2) 1,250 mcg (50,000 unit) capsule 1,250 mcg PO QWEEK albuterol sulfate 2.5 mg /3 mL (0.083 %) solution for nebulization 2.5 mg inhalation NEEDED fluticasone propionate 110 mcg/actuation HFA aerosol inhaler 2 puff inhalation BID topiramate 50 mg tablet 50 mg PO BID paroxetine HCl 20 mg tablet 20 mg PO BEDTIME (DME) blood pressure test kit-large Kit See Rx Instructions .ROUTE DIRECTED Qty: 1 Rx Instructions: As directed quetiapine 50 mg tablet 50 mg PO BID meloxicam 15 mg tablet 15 mg PO DAILY 30 Days Qty: 30 0RF Narcan 4 mg/actuation spray,non-aerosol 4 spray intranasal DAILY ondansetron 4 mg tablet,disintegrating 4 mg PO DAILY amitriptyline 10 mg tablet 10 mg PO BEDTIME
[2022-02-21 08:46] LABS: Appearance Urine HAZY; Color Urine YELLOW; Glucose Urine UA NEG (NEG); Leukocyte Esterase Urine NEG (NEG); Nitrite Urine NEG (NEG); Specific Gravity - Urine 1.025 (1.005-1.025); UACC Culture Trigger NO; Urine Blood 3+ (NEG); Urine Ketones NEG (NEG); Urine Protein 1+ MG/DL (NEG-TRACE)
[2022-02-21 08:53] LABS: Squamous Epithelial Cell Urine 1+ /LPF; WBC Urine 0-2 /HPF (0-4)
[2022-02-21 08:54] LABS: Bacteria Urine TRACE /LPF; RBC Urine 50-75 /HPF (0); Renal Epithelial Cells Urine 1+ /LPF
[2022-02-21] MEDS: 0.9 % Sodium Chloride 1,000 ML 999 ML IV (09:42)
[2022-02-21 09:43] LABS: MANUAL DIFF FLAG NO
[2022-02-21] MEDS: ondansetron HCL 4 MG/2 ML VIAL IVPUSH ×2 (09:43→22:33)
[2022-02-21] MEDS: Morphine Sulfate 4 MG/ML CARTRIDGE IVPUSH (09:43)
[2022-02-21 09:44] LABS: Basophils Percent Auto 0.3 % (0-2); Eosinophils Absolute Auto 0.4 X10*3/uL (0.0-0.4); Eosinophils Percent Auto 2.8 % (0-4); Hematocrit 39.9 % (37.0-47.0); Hemoglobin 12.8 g/dl (12.0-16.0); Imm Gran Abs Auto 0.17 X10*3/uL (0.00-0.03); Imm Gran Pct Auto 1.3 % (0.0-0.4); Lymphocytes Absolute Auto 3.2 X10*3/uL (1.2-4.9); Lymphocytes Percent Auto 25.5 % (20-40); Mean Corpuscular HGB Conc 32.1 g/dl (31.0-35.0); Mean Corpuscular Hemoglobin 29.8 pg (27.0-33.0); Mean Corpuscular Volume 92.8 fL (80.0-98.0); Mean Platelet Volume 9.6 fL (9.4-12.3); Monocytes Absolute Auto 1.1 X10*3/uL (0.1-1.2); Monocytes Percent Auto 8.3 % (2-11); Neutrophils Absolute Auto 7.8 x10*3/uL (2.0-8.3); Neutrophils Percent Auto 61.8 % (45-73); Platelet Count 300 X10*3/uL (160-400); Red Cell Distribution Width 14.3 % (11.0-16.0); White Blood Count 12.7 X10*3/uL (4.8-10.8)
[2022-02-21 09:50] LABS: OBS Int Ctl Valid YES; OBS1 NEGATIVE (NEGATIVE)
[2022-02-21 09:59] LABS: Anion Gap 10 (12-20); Blood Urea Nitrogen 9 mg/dL (9-16); Calcium 8.8 mg/dL (8.4-10.2); Carbon Dioxide 26 mmol/L (22-29); Chloride 107 mmol/L (96-108); Creatinine Clr Calc Pharmacy 142.3; Estimated Glomerular Filt Rate > 60; Glucose Random 131 mg/dL (60-115); Sodium 139 mmol/L (135-145)
[2022-02-21 10:01] LABS: Alanine Aminotransferase 12 U/L (0-31); Albumin Level 3.5 g/dL (3.5-5.0); Alkaline Phosphatase 86 U/L (39-117); Aspartate Amino Transferase 10 U/L (5-31); Bilirubin Direct < 0.2 mg/dL (0.0-0.5); Bilirubin Total 0.3 mg/dL (0.0-1.0); Lipase 13 U/L (8-78); Total Protein 6.8 g/dL (6.5-8.0)
[2022-02-21 12:22] LABS: COVID-19 Test Negative (Negative); IDNOW Serial# 16C4AD1C
[2022-02-21] MEDS: predniSONE 20 MG TABLET 40 MG PO (12:39)
[2022-02-21] MEDS: Tamsulosin HCL 0.4 MG CAPSULE PO (12:39)
--- NOTE | 2022-02-21 13:31 | PC.NURSE ---
dr. trent with table operator at bedside, pt aware of plan of care.
--- NOTE | 2022-02-21 14:47 | PM.UROCN ---
History of Present Illness Consult details Consult date: 02/21/22 Narrative: Blaire is a 46-year-old Fijian-speaking female Translation provided at bedside by hospital spanish interpreter Known stone former Has not been seen since early 2020 Presents with flank pain and nausea on right side Imaging - Right kidney: There is an obstructing 6 mm proximal ureteral calculus with associated hydronephrosis. This measures 951 Hounsfield units and the 19 cm from the posterior axillary line. 3 punctate nonobstructing intrarenal calculi are present. No renal masses are seen. The distal right ureter is normal Laboratories - WBC 12.7, calcium 8.8, creatinine 0.9 Recommend intervention - cystoscopy, right retrograde, right ureteroscopy with laser lithotripsy and stent placement - would not be good candidate for ESWL based on body habitus BMI greater than 50 Review of Systems Constitutional: Constitutional: Reports as per HPI and Reports no additional constitutional complaints Cardiovascular: Cardiovascular: Reports as per HPI and Reports no additional cardiovascular complaints Respiratory: Respiratory: Reports as per HPI and Reports no additional respiratory complaints Gastrointestinal: Gastrointestinal: Reports as per HPI and Reports no additional gastrointestinal complaints Genitourinary: Genitourinary: Reports as per HPI Musculoskeletal: Musculoskeletal: Reports no additional musculoskeletal complaints and Reports as per HPI Neurologic: Reports system reviewed and no additional complaints, except as documented and Reports as per HPI PMF Past Medical History Medical History Asthma Chronic pain Depression Fatty liver Frequent UTI HTN (hypertension) Hyperlipidemia Kidney stone Leukocytosis Mass of throat Migraine Obesity YAMILETH on CPAP PTSD (post-traumatic stress disorder) Smoker Family History Family History Father Hypertension Mother Hypertension Osteoporosis Hx of bilateral cataract extraction Paternal Grandmother Diabetes Sister Asthma Maternal Uncle Throat cancer Maternal Aunt Ovarian cancer Breast cancer Surgical History Surgical History H/O: hysterectomy History of breast lump/mass excision History of endometrial ablation History of lithotripsy History of lumpectomy of left breast (10/22/21) History of tonsillectomy Hx of colonoscopy Social History Social History Household Members: Family Housing: Apartment Are you a primary medicare compliance auditor to a significant other at home: No Do you presently have visiting nurse or other home services: No Alcohol intake: never Patient Tobacco Use Status: Current everyday Tobacco user Tobacco use type: Cigarette Cigarette Packs Per Day: 1 Cigarettes Per Day: 20.0 Use of substances other than those prescribed or required for medical reasons: No Advance Directives: No Advance Directives Information Provided: Yes Patient : No service: No Current occupational status: unemployed Meds Allergies Allergy/AdvReac Type Severity Reaction Status Date / Time aspirin [ASPIRIN] Allergy Severe DIFFICULTY Verified 11/08/21 16:04 BREATHING, anaphylaxis penicillin G [PENICILLIN G] Allergy Severe DIFFICULTY Verified 11/08/21 16:04 BREATHING Active Medications: Current Medications Morphine Sulfate (Morphine Sulfate 4 Mg/Ml Cartridge) 4 mg IVPUSH Q3H PRN; Protocol PRN Reason: Pain, Moderate (Pain Scale 4-6 Ondansetron HCl (Ondansetron Hcl 4 Mg/2 Ml Vial) 4 mg IVPUSH TID PRN PRN Reason: Nausea and Vomiting Pharmacy Consult (Consult Rx Perform Med Rec) 1 each MISCELLANE ONCE PRN PRN Reason: Consult order Home Medications Medication Instructions Recorded Confirmed Last Taken Type albuterol sulfate 2.5 mg inhalation NEEDED 11/03/20 02/21/22 Unknown History baclofen 10 mg tablet 10 mg PO TID PRN muscle spasm 11/03/20 02/21/22 Unknown History ergocalciferol (vitamin D2) 1,250 1,250 mcg PO QWEEK 11/03/20 02/21/22 Unknown History mcg (50,000 unit) capsule fluticasone propionate 110 2 puff inhalation BID 11/03/20 02/21/22 Unknown History mcg/actuation HFA aerosol inhaler tramadol 50 mg tablet 50 mg PO TID PRN Pain 11/03/20 11/09/21 Unknown History albuterol sulfate 90 mcg/actuation 2 puff PO Q4-6H PRN Wheezing 12/01/20 02/21/22 Unknown History aerosol inhaler (Ventolin HFA) aripiprazole 15 mg tablet (Abilify) 15 mg PO DAILY 12/01/20 11/09/21 Unknown History atorvastatin 80 mg tablet (Lipitor) 80 mg PO DAILY 12/01/20 02/21/22 Unknown History clonidine HCl 0.1 mg tablet 0.1 mg PO BEDTIME 12/01/20 11/09/21 Unknown History divalproex 500 mg tablet,extended 500 mg PO DAILY 12/01/20 11/09/21 Unknown History release 24 hr (Depakote ER) fluticasone propionate 50 2 spray intranasal DAILY 12/01/20 02/21/22 Unknown History mcg/actuation nasal spray,suspension omeprazole 20 mg capsule,delayed 1 cap PO QAM 12/01/20 02/21/22 Unknown History release quetiapine 100 mg tablet (Seroquel) 100 mg PO BEDTIME 12/01/20 11/09/21 Unknown History spironolactone 100 mg tablet 100 mg PO DAILY 12/01/20 02/21/22 Unknown History sumatriptan succinate 50 mg tablet 50 mg PO Q2-4H PRN Migraine 12/01/20 02/21/22 Unknown History (Imitrex) Headache blood pressure test kit-large #1 ea 12/19/20 11/09/21 Unknown History paroxetine HCl 20 mg tablet 20 mg PO BEDTIME 12/19/20 02/21/22 Unknown History quetiapine 50 mg tablet 50 mg PO BID 12/19/20 02/21/22 Unknown History topiramate 50 mg tablet 50 mg PO BID 12/19/20 02/21/22 Unknown History amitriptyline 10 mg tablet 10 mg PO BEDTIME 06/14/21 02/21/22 Unknown History naloxone 4 mg/actuation nasal 4 spray intranasal DAILY 06/14/21 11/09/21 Unknown History spray (Narcan) ondansetron 4 mg disintegrating 4 mg PO DAILY 06/14/21 11/09/21 Unknown History tablet lisinopril 30 mg tablet 1 tab PO DAILY 10/16/21 02/21/22 Unknown History metformin 500 mg tablet,extended 1 tab PO QPM 10/16/21 02/21/22 Unknown History release 24 hr tramadol 50 mg tablet 1 tab PO Q8H PRN severe pain 02/21/22 02/21/22 Unknown History Physical Exam Vital Signs: Vital Signs: Last Vital Signs Temp 97.6 F 02/21/22 13:50 Pulse 59 02/21/22 13:50 Resp 20 02/21/22 13:50 BP 128/64 02/21/22 13:50 Pulse Ox 95 02/21/22 13:50 O2 Del Method 02/21/22 13:50 BMI result Body Mass Index 58.8 Const: General: cooperative, healthy appearing, comfortable and no acute distress Orientation/consciousness: patient oriented x3 HEENT: Face and sinus: Yes normal facial exam Mouth: moist mucous membranes Neck: Neck: Yes normal visual inspection, Yes full ROM and Yes trachea midline Chest: Chest palpation & inspection: normal inspection of the chest Resp: Effort & Inspection: normal respiratory effort, able to speak in complete sentences and no respiratory distress GI: Inspection: Yes normal to inspection Back/Spine/Pelvis: Cervical Spine: normal cervical lordosis Thoracic/Lumbar Spine: thoracic and lumbar spine normal to inspection Skin: General skin exam: no rashes or lesions noted Neuro: General: patient oriented x3, tone normal and moves all extremities Extrem: General: Yes normal to inspection and Yes capillary refill normal Results Labs Result diagrams: 02/21/22 09:38 02/21/22 09:38 Labs: Abnormal lab results 02/21/22 02/21/22 02/21/22 Range/Units 08:39 09:38 09:38 WBC 12.7 H (4.8-10.8) X10*3/uL Immature Gran % (Auto) 1.3 H (0.0-0.4) % Abs Immat Gran (auto) 0.17 H (0.00-0.03) X10*3/uL Anion Gap 10 L (12-20) Random Glucose 131 H (60-115) mg/dL Urine Protein 1+ H (NEG-TRACE) MG/DL Urine Blood 3+ H (NEG) Urine RBC 50-75 H (0) /HPF Short CBC 02/21/22 Range/Units 09:38 WBC 12.7 H (4.8-10.8) X10*3/uL Hgb 12.8 (12.0-16.0) g/dl Hct 39.9 (37.0-47.0) % Plt Count 300 (160-400) X10*3/uL BMP 02/21/22 09:38 Sodium 139 Potassium 4.0 Chloride 107 Carbon Dioxide 26 BUN 9 Creatinine 0.91 Calcium 8.8 Liver Function 02/21/22 Range/Units 09:38 Total Bilirubin 0.3 (0.0-1.0) mg/dL Direct Bilirubin < 0.2 (0.0-0.5) mg/dL AST 10 (5-31) U/L ALT 12 (0-31) U/L Alkaline Phosphatase 86 (39-117) U/L Albumin 3.5 (3.5-5.0) g/dL Urine 02/21/22 Range/Units 08:39 Urine Color YELLOW Urine Appearance HAZY Urine pH 6.0 (5.0-8.0) Ur Specific [place] 1.025 (1.005-1.025) Urine Protein 1+ H (NEG-TRACE) MG/DL Urine Glucose (UA) NEG (NEG) MG/DL All other labs normal. Assessment and Plan (1) Ureterolithiasis: Status: Acute Plan Ureteroscopy We discussed the nature of the decision and reasonable alternatives for performing the above surgery. Interventions include chemical dissolution, ESWL, ureteroscopy with laser lithotripsy and stent placement, PCNL. Options such as medical therapy were discussed. The relative uncertainties and benefits related to each alternate procedure were adequately discussed. General surgical risks including, but not limited to, pain, bleeding, infection, myocardial infarction, pulmonary embolus, deep vein thrombosis and cerebrovascular accident which may result in further hospitalization were discussed. Full disclosure of the procedure as well as all major risks, benefits and complications were discussed including but not limited to damage to the urethra, bladder and kidney infection, damage to the ureter, stent migration or malposition, scarring to the renal pelvis, remnant stone fragments, subsequent stone passage with need for secondary procedures. The overall secondary procedure rate is approximately 10-15%. The success rate of the procedure was discussed. Success of the procedure in the short-term does not necessarily guarantee that long-term success will be maintained. Suitable follow up will need to be maintained. The patient showed understanding of discussion and wishes to proceed with - cystoscopy, retrograde, ureteroscopy, possible lithotripsy/stone basketing and stent on the right side Procedures Date of Service Date of Service: 02/21/22
--- NOTE | 2022-02-21 15:11 | PHA.MEDREC ---
Pharmacy Consult ? Medication Reconciliation Pharmacy has completed the medication reconciliation. Patient is not a good historian for her medications. Patient aimlessly said yes to all medications. Patient reported taking Abilify, Depakote, Meloxicam, Reglan however patient has not filled for over a year. Patient was unsure of what each medication was when going through list. I removed all medications that patient has not filled. Report seroquel as 50 mg every other day. I contact [facility] to confirm her recent fills. Jovanna Haro, MyahD
--- NOTE | 2022-02-21 15:46 | PC.NURSE ---
obtained report from yael, patient currently sleeping, vitals have been stable, awaiting surgery, denied pain at time report was obtained as they had previously been medicated for pain, called renee within reach, will continue to monitor
--- NOTE | 2022-02-21 18:50 | PC.NURSE ---
report called to pacu for patient
--- NOTE | 2022-02-21 19:20 | P.CONAN_ITS ---
[facility] Active Problems Active Problems: All Active Problems (Updated 02/21/22 @ 12:47 by Yas Leal DO) Ureterolithiasis (Acute) Nephrolithiasis (Acute) Chronic UTI (urinary tract infection) (Acute) Leukocytosis (leucocytosis) (Acute) Knee pain (Acute) Osteoarthritis of knees, bilateral (Acute) Morbid obesity (Acute) Left breast mass (Acute) Kidney stone (Acute) Past Medical History Medical History Asthma Chronic pain Depression Fatty liver Frequent UTI HTN (hypertension) Hyperlipidemia Kidney stone Leukocytosis Mass of throat Migraine Obesity YAMILETH on CPAP PTSD (post-traumatic stress disorder) Smoker Functional capacity: independent ambulation Patient : No Family History Family History Father Hypertension Mother Hypertension Osteoporosis Hx of bilateral cataract extraction Paternal Grandmother Diabetes Sister Asthma Maternal Uncle Throat cancer Maternal Aunt Ovarian cancer Breast cancer Surgical History Surgical History H/O: hysterectomy History of breast lump/mass excision History of endometrial ablation History of lithotripsy History of lumpectomy of left breast (10/22/21) History of tonsillectomy Hx of colonoscopy Social History Social History Household Members: Family Housing: Apartment Are you a primary critical care technician to a significant other at home: No Do you presently have visiting nurse or other home services: No Alcohol intake: never Patient Tobacco Use Status: Current everyday Tobacco user Tobacco use type: Cigarette Cigarette Packs Per Day: 1 Cigarettes Per Day: 20.0 Use of substances other than those prescribed or required for medical reasons: No Advance Directives: No Advance Directives Information Provided: Yes Patient : No service: No Current occupational status: unemployed Meds Allergies Allergy/AdvReac Type Severity Reaction Status Date / Time aspirin [ASPIRIN] Allergy Severe DIFFICULTY Verified 11/08/21 16:04 BREATHING, anaphylaxis penicillin G [PENICILLIN G] Allergy Severe DIFFICULTY Verified 11/08/21 16:04 BREATHING Active Medications: Current Medications Morphine Sulfate (Morphine Sulfate 4 Mg/Ml Cartridge) 4 mg IVPUSH Q3H PRN; Protocol PRN Reason: Pain, Moderate (Pain Scale 4-6 Ondansetron HCl (Ondansetron Hcl 4 Mg/2 Ml Vial) 4 mg IVPUSH TID PRN PRN Reason: Nausea and Vomiting Pharmacy Consult (Consult Rx Perform Med Rec) 1 each MISCELLANE ONCE PRN PRN Reason: Consult order Home Medications Medication Instructions Recorded Confirmed Last Taken Type albuterol sulfate 2.5 mg inhalation NEEDED 11/03/20 02/21/22 Unknown History baclofen 10 mg tablet 10 mg PO TID PRN muscle spasm 11/03/20 02/21/22 Unknown History ergocalciferol (vitamin D2) 1,250 1,250 mcg PO QWEEK 11/03/20 02/21/22 Unknown History mcg (50,000 unit) capsule fluticasone propionate 110 2 puff inhalation BID 11/03/20 02/21/22 Unknown History mcg/actuation HFA aerosol inhaler albuterol sulfate 90 mcg/actuation 2 puff PO Q4-6H PRN Wheezing 12/01/20 02/21/22 Unknown History aerosol inhaler (Ventolin HFA) atorvastatin 80 mg tablet (Lipitor) 80 mg PO DAILY 12/01/20 02/21/22 Unknown History fluticasone propionate 50 2 spray intranasal DAILY 12/01/20 02/21/22 Unknown History mcg/actuation nasal spray,suspension omeprazole 20 mg capsule,delayed 1 cap PO QAM 12/01/20 02/21/22 Unknown History release spironolactone 100 mg tablet 100 mg PO DAILY 12/01/20 02/21/22 02/21/22 History sumatriptan succinate 50 mg tablet 50 mg PO Q2-4H PRN Migraine 12/01/20 02/21/22 Unknown History (Imitrex) Headache blood pressure test kit-large #1 ea 12/19/20 11/09/21 Unknown History paroxetine HCl 20 mg tablet 20 mg PO BEDTIME 12/19/20 02/21/22 Unknown History quetiapine 50 mg tablet 50 mg PO Q2D@2100 12/19/20 02/21/22 Unknown History topiramate 50 mg tablet 50 mg PO BID 12/19/20 02/21/22 Unknown History amitriptyline 10 mg tablet 10 mg PO BEDTIME 06/14/21 02/21/22 Unknown History lisinopril 30 mg tablet 1 tab PO DAILY 10/16/21 02/21/22 02/21/22 History metformin 500 mg tablet,extended 1 tab PO QPM 10/16/21 02/21/22 Unknown History release 24 hr tramadol 50 mg tablet 1 tab PO Q8H PRN severe pain 02/21/22 02/21/22 Unknown History Exam Exam Date and Time: February 21, 20221919 Height,Weight and Vital Signs: Height 5 ft 10 in Weight 185.973 kg Last Vital Signs Temp 98.6 F 02/21/22 15:17 Pulse 56 02/21/22 15:17 Resp 20 02/21/22 15:17 BP 147/80 H 02/21/22 15:17 Pulse Ox 95 02/21/22 15:17 O2 Del Method 02/21/22 15:17 Pertinent Lab Results Pertinent Lab Results: Laboratory Tests 02/21/22 02/21/22 02/21/22 08:39 09:38 09:38 WBC 12.7 H RBC 4.30 Hgb 12.8 Hct 39.9 MCV 92.8 MCH 29.8 MCHC 32.1 RDW 14.3 Plt Count 300 MPV 9.6 Immature Gran % (Auto) 1.3 H Neut % (Auto) 61.8 Lymph % (Auto) 25.5 [place] % (Auto) 8.3 Eos % (Auto) 2.8 Baso % (Auto) 0.3 Lymph # (Auto) 3.2 [place] # (Auto) 1.1 Eos # (Auto) 0.4 Baso # (Auto) 0.0 Abs Immat Gran (auto) 0.17 H Absolute Neuts (auto) 7.8 Absolute Nucleated RBC 0.000 Nucleated RBC % (auto) 0.0 Sodium 139 Potassium 4.0 Chloride 107 Carbon Dioxide 26 Anion Gap 10 L BUN 9 Creatinine 0.91 Estim Creat Clear Calc 142.3 Estimated GFR > 60 Random Glucose 131 H Calcium 8.8 Total Bilirubin Direct Bilirubin AST ALT Alkaline Phosphatase Total Protein Albumin Lipase Urine Color YELLOW Urine Appearance HAZY Urine pH 6.0 Ur Specific [place] 1.025 Urine Protein 1+ H Urine Glucose (UA) NEG Urine Ketones NEG Urine Blood 3+ H Urine Nitrite NEG Ur Leukocyte Esterase NEG Urine RBC 50-75 H Urine WBC 0-2 Ur Squamous Epith Cells 1+ Ur Renal Epithelial Cell 1+ Urine Bacteria TRACE Stool Occult Blood COVID-19 (VIRGILIO) COVID-19 Clin Com 02/21/22 02/21/22 02/21/22 09:38 09:39 11:48 WBC RBC Hgb Hct MCV MCH MCHC RDW Plt Count MPV Immature Gran % (Auto) Neut % (Auto) Lymph % (Auto) [place] % (Auto) Eos % (Auto) Baso % (Auto) Lymph # (Auto) [place] # (Auto) Eos # (Auto) Baso # (Auto) Abs Immat Gran (auto) Absolute Neuts (auto) Absolute Nucleated RBC Nucleated RBC % (auto) Sodium Potassium Chloride Carbon Dioxide Anion Gap BUN Creatinine Estim Creat Clear Calc Estimated GFR Random Glucose Calcium Total Bilirubin 0.3 Direct Bilirubin < 0.2 AST 10 ALT 12 Alkaline Phosphatase 86 Total Protein 6.8 Albumin 3.5 Lipase 13 Urine Color Urine Appearance Urine pH Ur Specific [place] Urine Protein Urine Glucose (UA) Urine Ketones Urine Blood Urine Nitrite Ur Leukocyte Esterase Urine RBC Urine WBC Ur Squamous Epith Cells Ur Renal Epithelial Cell Urine Bacteria Stool Occult Blood NEGATIVE COVID-19 (VIRGILIO) Negative COVID-19 Clin Com See Note
--- NOTE | 2022-02-21 20:03 | MHC.SHP ---
Pre-Procedural Eval Section A Date of Service: 02/21/22 The patient is an INPATIENT: No Changes since office visit: No Cold of Flu in the past 2 weeks, No New Medical Problems, No Changes in Medication and No Patient answered all questions The History & Physical has been completed within 30 days and I have reviewed it.: Yes Section B Chief Complaint: kidney stones Allergies: Allergies Allergy/AdvReac Type Severity Reaction Status Date / Time aspirin [ASPIRIN] Allergy Severe DIFFICULTY Verified 11/08/21 16:04 BREATHING, anaphylaxis penicillin G [PENICILLIN G] Allergy Severe DIFFICULTY Verified 11/08/21 16:04 BREATHING Plan Diagnosis/Plan: Unchanged (cystoscopy, right retrograde, ureteroscopy, stent) I have reviewed the history and physical and performed a pertinent physical examination on my patient. No changes have occurred unless specified.
--- NOTE | 2022-02-21 20:08 | P.CONAN_ITS ---
[facility] Active Problems Active Problems: All Active Problems (Updated 02/21/22 @ 12:47 by Yas Leal DO) Ureterolithiasis (Acute) Nephrolithiasis (Acute) Chronic UTI (urinary tract infection) (Acute) Leukocytosis (leucocytosis) (Acute) Knee pain (Acute) Osteoarthritis of knees, bilateral (Acute) Morbid obesity (Acute) Left breast mass (Acute) Kidney stone (Acute) Past Medical History Medical History Asthma Chronic pain Depression Fatty liver Frequent UTI HTN (hypertension) Hyperlipidemia Kidney stone Leukocytosis Mass of throat Migraine Obesity YAMILETH on CPAP PTSD (post-traumatic stress disorder) Smoker Functional capacity: independent ambulation Family History Family History Father Hypertension Mother Hypertension Osteoporosis Hx of bilateral cataract extraction Paternal Grandmother Diabetes Sister Asthma Maternal Uncle Throat cancer Maternal Aunt Ovarian cancer Breast cancer Family history of problems with anesthesia: No Surgical History Surgical History H/O: hysterectomy History of breast lump/mass excision History of endometrial ablation History of lithotripsy History of lumpectomy of left breast (10/22/21) History of tonsillectomy Hx of colonoscopy History of Problems with Anesthesia: No Social History Social History Household Members: Family Housing: Apartment Are you a primary residential child care counselor to a significant other at home: No Do you presently have visiting nurse or other home services: No Alcohol intake: never Patient Tobacco Use Status: Current everyday Tobacco user Tobacco use type: Cigarette Cigarette Packs Per Day: 1 Cigarettes Per Day: 20.0 Use of substances other than those prescribed or required for medical reasons: No Advance Directives: No Advance Directives Information Provided: Yes Patient : No service: No Current occupational status: unemployed Meds Allergies Allergy/AdvReac Type Severity Reaction Status Date / Time aspirin [ASPIRIN] Allergy Severe DIFFICULTY Verified 11/08/21 16:04 BREATHING, anaphylaxis penicillin G [PENICILLIN G] Allergy Severe DIFFICULTY Verified 11/08/21 16:04 BREATHING Active Medications: Current Medications Morphine Sulfate (Morphine Sulfate 4 Mg/Ml Cartridge) 4 mg IVPUSH Q3H PRN; Protocol PRN Reason: Pain, Moderate (Pain Scale 4-6 Ondansetron HCl (Ondansetron Hcl 4 Mg/2 Ml Vial) 4 mg IVPUSH TID PRN PRN Reason: Nausea and Vomiting Pharmacy Consult (Consult Rx Perform Med Rec) 1 each MISCELLANE ONCE PRN PRN Reason: Consult order Home Medications Medication Instructions Recorded Confirmed Last Taken Type albuterol sulfate 2.5 mg inhalation NEEDED 11/03/20 02/21/22 Unknown History baclofen 10 mg tablet 10 mg PO TID PRN muscle spasm 11/03/20 02/21/22 Unknown History ergocalciferol (vitamin D2) 1,250 1,250 mcg PO QWEEK 11/03/20 02/21/22 Unknown History mcg (50,000 unit) capsule fluticasone propionate 110 2 puff inhalation BID 11/03/20 02/21/22 Unknown History mcg/actuation HFA aerosol inhaler albuterol sulfate 90 mcg/actuation 2 puff PO Q4-6H PRN Wheezing 12/01/20 0703/08 Unknown History aerosol inhaler (Ventolin HFA) atorvastatin 80 mg tablet (Lipitor) 80 mg PO DAILY 12/01/20 02/21/22 Unknown History fluticasone propionate 50 2 spray intranasal DAILY 12/01/20 02/21/22 Unknown History mcg/actuation nasal spray,suspension omeprazole 20 mg capsule,delayed 1 cap PO QAM 12/01/20 02/21/22 Unknown History release spironolactone 100 mg tablet 100 mg PO DAILY 12/01/20 02/21/22 02/21/22 History sumatriptan succinate 50 mg tablet 50 mg PO Q2-4H PRN Migraine 12/01/20 02/21/22 Unknown History (Imitrex) Headache blood pressure test kit-large #1 ea 12/19/20 11/09/21 Unknown History paroxetine HCl 20 mg tablet 20 mg PO BEDTIME 12/19/20 02/21/22 Unknown History quetiapine 50 mg tablet 50 mg PO Q2D@2100 12/19/20 02/21/22 Unknown History topiramate 50 mg tablet 50 mg PO BID 12/19/20 02/21/22 Unknown History amitriptyline 10 mg tablet 10 mg PO BEDTIME 06/14/21 02/21/22 Unknown History lisinopril 30 mg tablet 1 tab PO DAILY 03/09/0802/21/22 02/21/22 History metformin 500 mg tablet,extended 1 tab PO QPM 10/16/21 02/21/22 Unknown History release 24 hr tramadol 50 mg tablet 1 tab PO Q8H PRN severe pain 02/21/22 02/21/22 Unknown History Exam Exam Date and Time: February 21, 20222007 Height,Weight and Vital Signs: Height 5 ft 10 in Weight 185.973 kg Last Vital Signs Temp 97 F 02/21/22 19:18 Pulse 80 02/21/22 19:18 Resp 18 02/21/22 19:18 BP 150/76 H 02/21/22 19:18 Pulse Ox 95 02/21/22 19:18 O2 Del Method 02/21/22 19:18 Pertinent Lab Results Pertinent Lab Results: Laboratory Tests 02/21/22 02/21/22 02/21/22 08:39 09:38 09:38 WBC 12.7 H RBC 4.30 Hgb 12.8 Hct 39.9 MCV 92.8 MCH 29.8 MCHC 32.1 RDW 14.3 Plt Count 300 MPV 9.6 Immature Gran % (Auto) 1.3 H Neut % (Auto) 61.8 Lymph % (Auto) 25.5 [place] % (Auto) 8.3 Eos % (Auto) 2.8 Baso % (Auto) 0.3 Lymph # (Auto) 3.2 [place] # (Auto) 1.1 Eos # (Auto) 0.4 Baso # (Auto) 0.0 Abs Immat Gran (auto) 0.17 H Absolute Neuts (auto) 7.8 Absolute Nucleated RBC 0.000 Nucleated RBC % (auto) 0.0 Sodium 139 Potassium 4.0 Chloride 107 Carbon Dioxide 26 Anion Gap 10 L BUN 9 Creatinine 0.91 Estim Creat Clear Calc 142.3 Estimated GFR > 60 Random Glucose 131 H Calcium 8.8 Total Bilirubin Direct Bilirubin AST ALT Alkaline Phosphatase Total Protein Albumin Lipase Urine Color YELLOW Urine Appearance HAZY Urine pH 6.0 Ur Specific [place] 1.025 Urine Protein 1+ H Urine Glucose (UA) NEG Urine Ketones NEG Urine Blood 3+ H Urine Nitrite NEG Ur Leukocyte Esterase NEG Urine RBC 50-75 H Urine WBC 0-2 Ur Squamous Epith Cells 1+ Ur Renal Epithelial Cell 1+ Urine Bacteria TRACE Stool Occult Blood COVID-19 (VIRGILIO) COVID-19 Clin Com 02/21/22 02/21/22 02/21/22 09:38 09:39 11:48 WBC RBC Hgb Hct MCV MCH MCHC RDW Plt Count MPV Immature Gran % (Auto) Neut % (Auto) Lymph % (Auto) [place] % (Auto) Eos % (Auto) Baso % (Auto) Lymph # (Auto) [place] # (Auto) Eos # (Auto) Baso # (Auto) Abs Immat Gran (auto) Absolute Neuts (auto) Absolute Nucleated RBC Nucleated RBC % (auto) Sodium Potassium Chloride Carbon Dioxide Anion Gap BUN Creatinine Estim Creat Clear Calc Estimated GFR Random Glucose Calcium Total Bilirubin 0.3 Direct Bilirubin < 0.2 AST 10 ALT 12 Alkaline Phosphatase 86 Total Protein 6.8 Albumin 3.5 Lipase 13 Urine Color Urine Appearance Urine pH Ur Specific [place] Urine Protein Urine Glucose (UA) Urine Ketones Urine Blood Urine Nitrite Ur Leukocyte Esterase Urine RBC Urine WBC Ur Squamous Epith Cells Ur Renal Epithelial Cell Urine Bacteria Stool Occult Blood NEGATIVE COVID-19 (VIRGILIO) Negative COVID-19 Clin Com See Note Airway Mallampati Class: II TM Dist: >3cm Neck ROM: Full Adult Head Mouth w/Numbe Teeth: 1. 25 is loose Heart: RRR Lungs: CTA Assessment and Plan Final Anesthetic Review Family History of Problems with Anesthesia: No History of Problems with Anesthesia: No ASA Class: III Final Preanesthetic Review: No Changes in Pt Med Stat, Meds/Allgs Chart Reviewed, Consent Obtained/Reviewed and Anes Risks/Benef Reviewed Patient Risk: Intermediate Procedure Risk: Low Anesthetic Plan Anesthetic Plan: GA Disposition: Standard PACU
[2022-02-21] MEDS: Scopolamine 1.5 MG PATCH.TD.3 EAR-BEHIND (20:46)
--- NOTE | 2022-02-21 21:49 | P.OP_ITS ---
Operative Note Operative Note Date of Service: 02/21/22 Narrative: PreOperative Diagnosis: right proximal ureteric stone Post Operative Diagnosis: right proximal ureteric stone with hydronephrosis Procedure: - cystoscopy, right retrograde - right dilatation of ureteric orifice under fluoroscopy - right ureteroscopy, laser lithotripsy, stone basketing - right stent placement Surgeon: Dr Mervin Bryan Anesthesia: General Indications for procedure: right proximal ureteric stone with creatinine 0.9, WBC 12.7 Procedure: After informed consent was verified patient was brought to the operating placed in supine position. Anesthesia was administered per protocol. Patient was placed in modified dorsal lithotomy position and prepped and draped in a sterile fashion. Safety pause time-out and side of surgery confirmed. Antibiotics confirmed. A 22 Tanzanian cystoscope was inserted per urethra. Bladder was normal in its entirety. Both ureteric orifices were in normal position. The right ureteric orifice was cannulated and a retrograde examination was performed. filling defects seen in proximal portion of right ureter . A Sensor guidewire was placed up to the level of the renal pelvis under fluoroscopy. The rigid cystoscope was removed. A Megan dilator was placed over the Sensor guidewire and used to dilate the ureteric orifice under fluoroscopy. The dilator was removed. The semi rigid ureteral scope was placed alongside the Sensor guidewire. a stone was encountered and using a 360 micron laser fiber the stone was engaged and small pieces were broken. We were not able to fully orientated the device to properly get the stone. The rigid ureteral scope was removed after a 2nd wire was placed. The flexible ureteral scope was then placed over the wire up to the stone. The stone was re-entered in broken into smaller pieces. Using a flat wire basket we were able removed a segment for analysis. A 6 Tanzanian by Twenty-eight cm double-J stent was placed into the renal pelvis and bladder under a combination of fluoroscopy and direct visualization. The bladder was emptied. The patient tolerated the procedure well and was extubated in the operating room, and transferred in stable condition to the recovery area. Pathology: stone for analysis Drains: 6 [place] by 28 cm double-J stent
[2022-02-21] MEDS: Acetaminophen 325 MG TABLET 650 MG PO (22:27)
[2022-02-21] MEDS: Phenazopyridine HCL 100 MG TABLET PO (22:28)
[2022-02-25 15:52] LABS: Stone Source RIGHT URETERAL STONE
== END 2022-02-21 20:54 | disposition admitted as inpatient to this hospital (09) ==
LOC: HO.ED 19:14 → HO.SSSA 21:48 → HO.SSS 02-22 08:35
PROVIDERS: Urology; PCP Family Medicine; Visit Provider Emergency Medicine
PROC: (CPT 52356; principal; 2022-02-21 16:40)
DX: N13.2 Hydronephrosis with renal and ureteral calculous obstruction (principal); D72.829 Elevated white blood cell count, unspecified; I10 Essential (primary) hypertension; J45.909 Unspecified asthma, uncomplicated; K76.0 Fatty (change of) liver, not elsewhere classified; G47.33 Obstructive sleep apnea (adult) (pediatric); F17.210 Nicotine dependence, cigarettes, uncomplicated; F43.10 Post-traumatic stress disorder, unspecified; Z20.822 Contact with and (suspected) exposure to COVID-19; Z79.51 Long term (current) use of inhaled steroids; Z87.440 Personal history of urinary (tract) infections; Z87.442 Personal history of urinary calculi; Z88.0 Allergy status to penicillin; Z88.8 Allergy status to other drugs, medicaments and biological substances; Z79.899 Other long term (current) drug therapy; E78.5 Hyperlipidemia, unspecified
CPT/HCPCS: 52356; 52352; 36415; 74176; 80048; 80076; 81001; 82272; 82365; 83690; 85025; 87635; 88300; 96361; 96374; 96375; 96376; 99285; C1758; C1769; C2617; J1956; J2250; J2270; J2405; J3010; Q9967

== ENCOUNTER → 2022-03-13 14:22 | Outpatient (BNVA) | payer OTHER, SELFPAY | PROVIDERS: PCP Family Medicine; Visit Provider Urology | DX: Z48.816 Encounter for surgical aftercare following surgery on the genitourinary system (principal); N20.0 Calculus of kidney | CPT/HCPCS: 52310; 99212 ==

== ENCOUNTER 2022-05-21 11:38 | Inpatient (IN) | payer OTHER, SELFPAY ==
--- NOTE | ~2022-05-21 | XR_ITS ---
EXAMINATION: XR CHEST CLINICAL INFORMATION: Chest pain. COMPARISON: None TECHNIQUE: Frontal view of the chest was obtained. FINDINGS: The lungs are well-expanded and clear. The heart size and pulmonary vascularity is normal. No gross bony abnormality seen. XR/XR chest 1V IMPRESSION: Unremarkable chest examination.
--- NOTE | ~2022-05-21 | CT_ITS ---
EXAMINATION: CT ABDOMEN AND PELVIS WITH CONTRAST CLINICAL INFORMATION: Abdominal pain. COMPARISON: CT scan of the abdomen and pelvis dated 02/21/2022. TECHNIQUE: Multidetector volumetric images were obtained from the superior aspect of the liver through the pubic symphysis following administration of 100 mL of Omnipaque 350 intravenous contrast. Sagittal and coronal reformatted images were obtained on the technologist's workstation. Oral contrast: No This CT examination was performed using dose optimization techniques as appropriate, variously including the following: *Automated exposure control *Adjustment of mA and/or kV according to patient size (this includes techniques or standardized protocols for targeted exams where dose is matched to indication/reason for exam; i.e. extremities or head) *Use of iterative reconstruction technique DLP: 1195 mGy-cm FINDINGS: LUNG BASES: The visualized lung bases are unremarkable. LIVER, GALLBLADDER, AND BILIARY TREE: Unremarkable. PANCREAS: Unremarkable. SPLEEN: Unremarkable. ADRENAL GLANDS: Unremarkable. KIDNEYS AND URETERS: Mild to moderate right hydronephrosis caused by a 0.3 cm calculus in the proximal one third of the right ureter (image 63, series 4). Nonobstructing small left intrarenal calculi are seen. A guest relations representative interpolar calculus measures 0.4 cm (image 81, series 4). No left hydroureteronephrosis. BLADDER: Unremarkable. GASTROINTESTINAL TRACT: The stomach, small bowel and appendix are unremarkable. The colon and rectum are unremarkable. ABDOMINAL WALL: No significant hernia is appreciated. LYMPH NODES: No lymphadenopathy. VASCULAR: Unremarkable. PELVIC VISCERA: Status post hysterectomy. Left ovarian cyst measures up to 5.6 cm (image 70, series 4). OSSEOUS STRUCTURES: Unremarkable. CT/CT abdomen pelvis w IV con IMPRESSION: 1. Mild to moderate right hydronephrosis caused by 0.3 cm calculus in the proximal right ureter. Nonobstructing left intrarenal calculi. 2. Left ovarian cyst was not seen previously but is likely physiologic and most likely benign. No other significant abnormality.
--- NOTE | 2022-05-21 11:42 | ECG_ITS ---
Test Reason : CHEST PAIN Blood Pressure : / mmHG Vent. Rate : 076 BPM Atrial Rate : 076 BPM P-R Int : 188 ms QRS Dur : 074 ms QT Int : 370 ms P-R-T Axes : 056 021 054 degrees QTc Int : 416 ms Normal sinus rhythm Nonspecific T wave abnormality Abnormal ECG When compared with ECG of 16-MAY-2021 15:27, Premature ventricular complexes are no longer Present Referred By: Generic ED Physician Electronically Signed By:LOPEZ SARAH
[2022-05-21 11:43] VITALS: BP 107/80; PULSE 89; O2SAT 97
[2022-05-21 11:53] VITALS: BP 149/93; PULSE 79; RESP 18; TEMP 36.2; O2SAT 98; BMI 66.2
[2022-05-21] MEDS: 0.9 % Sodium Chloride 1,000 ML 999 ML IV ×2 (12:57→16:40)
[2022-05-21 13:04] LABS: MANUAL DIFF FLAG NO
[2022-05-21 13:14] LABS: Basophils Absolute Auto 0.1 X10*3/uL (0.0-0.2); Basophils Percent Auto 0.5 % (0-2); Eosinophils Absolute Auto 0.3 X10*3/uL (0.0-0.4); Eosinophils Percent Auto 2.6 % (0-4); Hematocrit 42.3 % (37.0-47.0); Hemoglobin 13.8 g/dl (12.0-16.0); Imm Gran Abs Auto 0.09 X10*3/uL (0.00-0.03); Imm Gran Pct Auto 0.8 % (0.0-0.4); Lymphocytes Percent Auto 26.1 % (20-40); Mean Corpuscular HGB Conc 32.6 g/dl (31.0-35.0); Mean Corpuscular Hemoglobin 29.7 pg (27.0-33.0); Mean Corpuscular Volume 91.2 fL (80.0-98.0); Mean Platelet Volume 9.6 fL (9.4-12.3); Monocytes Percent Auto 8.5 % (2-11); Neutrophils Absolute Auto 7.1 x10*3/uL (2.0-8.3); Neutrophils Percent Auto 61.5 % (45-73); Platelet Count 328 X10*3/uL (160-400); Red Blood Count 4.64 X10*6/uL (4.20-5.50); White Blood Count 11.5 X10*3/uL (4.8-10.8)
[2022-05-21 13:22] LABS: Strep A Nucleic Acid Negative (Negative)
[2022-05-21 13:23] LABS: Alanine Aminotransferase 14 U/L (0-31); Albumin Level 3.7 g/dL (3.5-5.0); Alkaline Phosphatase 86 U/L (39-117); Anion Gap 14 (12-20); Aspartate Amino Transferase 14 U/L (5-31); Bilirubin Direct < 0.2 mg/dL (0.0-0.5); Bilirubin Total 0.3 mg/dL (0.0-1.0); Blood Urea Nitrogen 14 mg/dL (9-16); Calcium 9.2 mg/dL (8.4-10.2); Carbon Dioxide 22 mmol/L (22-29); Chloride 107 mmol/L (96-108); Estimated Glomerular Filt Rate 59; Glucose Random 120 mg/dL (60-115); Lipase 11 U/L (8-78); Magnesium 1.9 mg/dL (1.6-2.6); Sodium 139 mmol/L (135-145); Total Protein 7.1 g/dL (6.5-8.0)
[2022-05-21 13:27] LABS: B Type Natriuretic Peptide 18 pg/mL (<100)
[2022-05-21 13:28] LABS: COVID-19 Test Negative (Negative); IDNOW Serial# 16C4AD1C; Influenza A Negative (Negative); Influenza B2 Negative (Negative)
[2022-05-21 13:37] LABS: Troponin-I High Sensitivity 106.8 ng/L (<3.5-17.0)
[2022-05-21 13:42] VITALS: BP 137/72; PULSE 66; RESP 18; O2SAT 97
--- NOTE | 2022-05-21 13:46 | ED_ITS ---
HPI - General Adult General Chief complaint: General Medical Stated complaint: back paic/cp Time Seen by Provider: 05/21/22 12:18 Source: patient Mode of arrival: ambulatory History of Present Illness HPI narrative: 47 yo F with PMHx asthma, depression, HTN, HLD, renal stones, migraines, obesity, YAMILETH on CPAP, PTSD, presenting to the ED complaining of left-sided chest pain radiating down LUE, back pain/flank pain, upper abdominal pain, sore throat, and myalgias x today. Denies fever, chills, SOB, vomiting, diarrhea, urinary retention/incontinence, inability to swallow Onset (ago): day(s) Related Data Home Medications Medication Instructions Recorded Confirmed albuterol sulfate 2.5 mg/3 mL 2.5 mg inhalation NEEDED 11/03/20 02/21/22 (0.083 %) solution for nebulization baclofen 10 mg tablet 10 mg PO TID PRN muscle spasm 11/03/20 02/21/22 ergocalciferol (vitamin D2) 1,250 1,250 mcg PO QWEEK 11/03/20 02/21/22 mcg (50,000 unit) capsule fluticasone propionate 110 2 puff inhalation BID 11/03/20 02/21/22 mcg/actuation HFA aerosol inhaler albuterol sulfate 90 mcg/actuation 2 puff PO Q4-6H PRN Wheezing 12/01/2003/08 aerosol inhaler (Ventolin HFA) atorvastatin 80 mg tablet (Lipitor) 80 mg PO DAILY 12/01/20 02/21/22 fluticasone propionate 50 2 spray intranasal DAILY 12/01/20 02/21/22 mcg/actuation nasal spray,suspension omeprazole 20 mg capsule,delayed 1 cap PO QAM 12/01/20 02/21/22 release spironolactone 100 mg tablet 100 mg PO DAILY 12/01/20 02/21/22 sumatriptan succinate 50 mg tablet 50 mg PO Q2-4H PRN Migraine 12/01/20 02/21/22 (Imitrex) Headache blood pressure test kit-large #1 ea 12/19/20 11/09/21 paroxetine HCl 20 mg tablet 20 mg PO BEDTIME 12/19/20 02/21/22 quetiapine 50 mg tablet 50 mg PO Q2D@2100 12/19/20 02/21/22 topiramate 50 mg tablet 50 mg PO BID 12/19/20 02/21/22 amitriptyline 10 mg tablet 10 mg PO BEDTIME 06/14/21 02/21/22 lisinopril 30 mg tablet 1 tab PO DAILY 10/16/21 02/21/22 metformin 500 mg tablet,extended 1 tab PO QPM 10/16/21 02/21/22 release 24 hr tramadol 50 mg tablet 1 tab PO Q8H PRN severe pain 02/21/22 02/21/22 cholecalciferol (vitamin D3) 50 50 mcg PO DAILY 03/13/22 mcg (2,000 unit) capsule Previous Rx's Medication Instructions Recorded ibuprofen 800 mg tablet 800 mg PO Q8H PRN pain #14 tabs 09/28/20 naproxen 500 mg tablet 500 mg PO BID PRN pain 7 days #14 02/21/22 tabs phenazopyridine 100 mg tablet 100 mg PO TID PRN spasm 4 days #12 02/22/22 (Pyridium) tabs sulfamethoxazole 400 1 tab PO DAILY 5 days #5 tabs 02/22/22 mg-trimethoprim 80 mg tablet (Bactrim) tamsulosin 0.4 mg capsule 0.4 mg PO BEDTIME 14 days #14 caps 02/22/22 tramadol 50 mg tablet 50 mg PO Q6H PRN pain (scale score 02/22/22 1-3) #8 tabs pyridoxine (vitamin B6) 100 mg 100 mg PO DAILY 90 days #90 tabs 03/13/22 tablet Allergies Allergy/AdvReac Type Severity Reaction Status Date / Time aspirin [ASPIRIN] Allergy Severe DIFFICULTY Verified 03/13/22 14:37 BREATHING, anaphylaxis penicillin G [PENICILLIN G] Allergy Severe DIFFICULTY Verified 03/13/22 14:37 BREATHING Review of Systems Review of Systems: Constitutional: No Fever, No Chills, No Fatigue, No Malaise ENT/Mouth: No Ear Pain, No Nasal Congestion, + sore throat, No Rhinorrhea, No Swallowing Difficulty Eyes: No Eye Pain, No Swelling, No Redness,No Discharge, No Vision Changes Cardiovascular: + Chest Pain, + SOB, No Dyspnea on Exertion, No Orthopnea, No Edema Respiratory: No Cough, No Sputum, No Dyspnea Gastrointestinal: No Nausea, No Vomiting, No Diarrhea, No Constipation, + Abdominal pain Genitourinary: No Dysuria, No Urinary Frequency, No Hematuria, No Urinary Inc ontinence/retention, + Flank Pain, No Urinary Flow Changes, No Hesitancy Musculoskeletal: + joint pain, No Myalgias, No Joint Swelling Skin: No Skin Lesions, No rash Neuro: No Weakness, No Numbness, No Paresthesias, No Loss of Consciousness, No Dizziness, No Headache Yes all other systems are reviewed and are negative Constitutional: Constitutional: Reports as per [facility] Past Medical History Attestation statement: The following information was validated with the patient. Medical History Asthma Chronic pain Depression Fatty liver Frequent UTI HTN (hypertension) Hyperlipidemia Kidney stone Leukocytosis Mass of throat Migraine Obesity YMAILETH on CPAP PTSD (post-traumatic stress disorder) Smoker Surgical History H/O: hysterectomy History of breast lump/mass excision History of endometrial ablation History of lithotripsy History of lumpectomy of left breast (10/22/21) History of tonsillectomy Hx of colonoscopy Family History Family History Father Hypertension Mother Hypertension Osteoporosis Hx of bilateral cataract extraction Paternal Grandmother Diabetes Sister Asthma Maternal Uncle Throat cancer Maternal Aunt Ovarian cancer Breast cancer Social History Social History Household Members: Family Housing: Apartment Are you a primary aged or disabled carer to a significant other at home: No Do you presently have visiting nurse or other home services: No Alcohol intake: never Patient Tobacco Use Status: Current everyday Tobacco user Tobacco use type: Cigarette Cigarette Packs Per Day: 1 Cigarettes Per Day: 20.0 Advance Directives: No Advance Directives Information Provided: No service: No Current occupational status: unemployed Physical Exam ED Vital Signs: Vital Signs - 24 hr 05/21/22 11:53 05/21/22 13:42 05/21/22 16:44 Temperature 97.2 F Pulse Rate 79 66 63 Respiratory Rate 18 18 Blood Pressure 149/93 H 137/72 155/84 H Pulse Oximetry 98 97 Oxygen Delivery Method Room Air BMI result Body Mass Index 66.2 Const General: cooperative, healthy appearing, comfortable and no acute distress Nutritional Appearance: obese Orientation/consciousness: patient oriented x3 Limitations: no limitations [facility] Head: Yes normal to inspection and Yes atraumatic Ears: hearing grossly normal bilaterally General nose exam: Normal external nose present Face and sinus: Yes normal facial exam Eyes General: appearance normal, both eyes and all related structures EOM: EOMs intact bilaterally Neck Neck: Yes normal visual inspection and Yes no meningeal signs Resp Effort & Inspection: normal respiratory effort and no respiratory distress Auscultation: clear to auscultation bilaterally, no crackles, no rales and no rhonchi Cardio Rate: regular rate Heart sounds: S1 normal heart sound present and S2 normal heart sound present GI Inspection: Yes normal to inspection Palpation (GI): Soft to palpation, Tenderness to palpation present (GI) in the epigastrum, in the LUQ and in the RUQ; with no rebound tenderness, no guarding and not rigid General: Yes CVA tenderness bilateral Back/Spine/Pelvis Other: No midline thoracic/lumbar spinous tenderness/step-off or deformity Back: CVA tenderness Skin Rashes: no rashes Wounds: no wounds Neuro General: patient oriented x3, tone normal and no meningeal signs Gait exam (Neuro): Normal gait present Extrem General: Yes normal to inspection Course Course Course Narrative: -1347--chronic leukocytosis of 11.5. Troponin elevated to 106.8 > will obtain 3 hour repeat. Patient denies CP at present, states symptoms resolved. -COVID-19, influenza, and rapid strep negative 1609--XR chest 1V IMPRESSION: Unremarkable chest examination. ? CT abdomen pelvis w IV con IMPRESSION: 1. Mild to moderate right hydronephrosis caused by 0.3 cm calculus in the proximal right ureter. Nonobstructing left intrarenal calculi. 2. Left ovarian cyst was not seen previously but is likely physiologic and most likely benign. No other significant abnormality. >> consulted to Urology -1642--repeat troponin increased to 373.7 > will consult cardiology, Dr. Hutchinson and obtain repeat EKG Spoke with Dr. Hutchinson who recommended Plavix and IV heparin drip with trending troponins Q 6-8 hours. Patient is currently chest pain free after morphine and sublingual nitro. Plan to admit to the hospitalist for further management -170--repeat EKG without STEMI. Normal sinus rhythm at a rate of 63. QTC 415 Medical Decision Making MDM Narrative Medical decision making narrative: 47 yo F with PMHx asthma, depression, HTN, HLD, renal stones, migraines, obesity, YAMILETH on CPAP, PTSD, presenting to the ED complaining of left-sided chest pain radiating down LUE, back pain/flank pain, upper abdominal pain, sore throat, and myalgias x today. On exam VSS, NAD, well appeaaring, lungs CTA, abdomen soft with upper tenderness to palpation, no rebound or guarding, no red flag symptoms. Oropharynx WNL. Concern for ACS vs GERD vs cholecystitis/lithiasis vs pancreatitis vs renal stone/pyelo. Lower suspicion for PE, PNA, UTI or cauda equina/cord compression Plan: EKG, labs, UA, CXR, CT AP, reassess Medical Records Medical records reviewed: Yes I reviewed the patient's medical records. Lab Data Lab results reviewed: Yes I reviewed the patient's lab results. Result diagrams: 05/21/22 12:54 05/21/22 12:54 Labs: Lab Results 05/21/22 05/21/22 05/21/22 Range/Units 12:50 12:50 12:50 WBC (4.8-10.8) X10*3/uL RBC (4.20-5.50) X10*6/uL Hgb (12.0-16.0) g/dl Hct (37.0-47.0) % MCV (80.0-98.0) fL MCH (27.0-33.0) pg MCHC (31.0-35.0) g/dl RDW (11.0-16.0) % Plt Count (160-400) X10*3/uL MPV (9.4-12.3) fL Immature Gran % (Auto) (0.0-0.4) % Neut % (Auto) (45-73) % Lymph % (Auto) (20-40) % [facility] % (Auto) (2-11) % Eos % (Auto) (0-4) % Baso % (Auto) (0-2) % Lymph # (Auto) (1.2-4.9) X10*3/uL [facility] [place] # (Auto) (0.1-1.2) X10*3/uL Eos # (Auto) (0.0-0.4) X10*3/uL Baso # (Auto) (0.0-0.2) X10*3/uL Abs Immat Gran (auto) (0.00-0.03) X10*3/uL Absolute Neuts (auto) (2.0-8.3) x10*3/uL Absolute Nucleated RBC (0.0-0.012) X10*3/uL Nucleated RBC % (auto) (0.0-0.2) /100WBC Sodium (135-145) mmol/L Potassium (3.3-5.1) mmol/L Chloride (96-108) mmol/L Carbon Dioxide (22-29) mmol/L Anion Gap (12-20) BUN (9-16) mg/dL Creatinine (0.5-1.4) mg/dL Estim Creat Clear Calc Estimated GFR Random Glucose (60-115) mg/dL Calcium (8.4-10.2) mg/dL Magnesium (1.6-2.6) mg/dL Total Bilirubin (0.0-1.0) mg/dL Direct Bilirubin (0.0-0.5) mg/dL AST (5-31) U/L ALT (0-31) U/L Alkaline Phosphatase (39-117) U/L Troponin I High Sens (<3.5-17.0) ng/L B-Natriuretic Peptide (<100) pg/mL Total Protein (6.5-8.0) g/dL Albumin (3.5-5.0) g/dL Lipase (8-78) U/L COVID-19 (VIRGILIO) Negative (Negative) COVID-19 Clin Com See Note Influenza Type A (VERONICA) Negative (Negative) Influenza Type B (VERONICA) Negative (Negative) Influenza A & B Note See Note S. pyogenes GrpA VERONICA Negative (Negative) 05/21/22 05/21/22 05/21/22 Range/Units 12:54 12:54 12:54 WBC 11.5 H (4.8-10.8) X10*3/uL RBC 4.64 (4.20-5.50) X10*6/uL Hgb 13.8 (12.0-16.0) g/dl Hct 42.3 (37.0-47.0) % MCV 91.2 (80.0-98.0) fL MCH 29.7 (27.0-33.0) pg MCHC 32.6 (31.0-35.0) g/dl RDW 14.0 (11.0-16.0) % Plt Count 328 (160-400) X10*3/uL MPV 9.6 (9.4-12.3) fL Immature Gran % (Auto) 0.8 H (0.0-0.4) % Neut % (Auto) 61.5 (45-73) % Lymph % (Auto) 26.1 (20-40) % [facility] [place] [facility] % (Auto) 8.5 (2-11) % Eos % (Auto) 2.6 (0-4) % Baso % (Auto) 0.5 (0-2) % Lymph # (Auto) 3.0 (1.2-4.9) X10*3/uL [facility] [place] [facility] # (Auto) 1.0 (0.1-1.2) X10*3/uL Eos # (Auto) 0.3 (0.0-0.4) X10*3/uL Baso # (Auto) 0.1 (0.0-0.2) X10*3/uL Abs Immat Gran (auto) 0.09 H (0.00-0.03) X10*3/uL Absolute Neuts (auto) 7.1 (2.0-8.3) x10*3/uL Absolute Nucleated RBC 0.000 (0.0-0.012) X10*3/uL Nucleated RBC % (auto) 0.0 (0.0-0.2) /100WBC Sodium 139 (135-145) mmol/L Potassium 4.0 (3.3-5.1) mmol/L Chloride 107 (96-108) mmol/L Carbon Dioxide 22 (22-29) mmol/L Anion Gap 14 (12-20) BUN 14 D (9-16) mg/dL Creatinine 1.01 (0.5-1.4) mg/dL Estim Creat Clear Calc 129.0 Estimated GFR 59 Random Glucose 120 H (60-115) mg/dL Calcium 9.2 (8.4-10.2) mg/dL Magnesium 1.9 (1.6-2.6) mg/dL Total Bilirubin 0.3 (0.0-1.0) mg/dL Direct Bilirubin < 0.2 (0.0-0.5) mg/dL AST 14 (5-31) U/L ALT 14 (0-31) U/L Alkaline Phosphatase 86 (39-117) U/L Troponin I High Sens 106.8 H* (<3.5-17.0) ng/L B-Natriuretic Peptide (<100) pg/mL Total Protein 7.1 (6.5-8.0) g/dL Albumin 3.7 (3.5-5.0) g/dL Lipase 11 (8-78) U/L COVID-19 (VIRGILIO) (Negative) COVID-19 Clin Com Influenza Type A (VERONICA) (Negative) Influenza Type B (VERONICA) (Negative) Influenza A & B Note S. pyogenes GrpA VERONICA (Negative) 05/21/22 05/21/22 Range/Units 12:54 16:04 WBC (4.8-10.8) X10*3/uL RBC (4.20-5.50) X10*6/uL Hgb (12.0-16.0) g/dl Hct (37.0-47.0) % MCV (80.0-98.0) fL MCH (27.0-33.0) pg MCHC (31.0-35.0) g/dl RDW (11.0-16.0) % Plt Count (160-400) X10*3/uL MPV (9.4-12.3) fL Immature Gran % (Auto) (0.0-0.4) % Neut % (Auto) (45-73) % Lymph % (Auto) (20-40) % [facility] [place] [facility] % (Auto) (2-11) % Eos % (Auto) (0-4) % Baso % (Auto) (0-2) % Lymph # (Auto) (1.2-4.9) X10*3/uL [facility] [place] [facility] # (Auto) (0.1-1.2) X10*3/uL Eos # (Auto) (0.0-0.4) X10*3/uL Baso # (Auto) (0.0-0.2) X10*3/uL Abs Immat Gran (auto) (0.00-0.03) X10*3/uL Absolute Neuts (auto) (2.0-8.3) x10*3/uL Absolute Nucleated RBC (0.0-0.012) X10*3/uL Nucleated RBC % (auto) (0.0-0.2) /100WBC Sodium (135-145) mmol/L Potassium (3.3-5.1) mmol/L Chloride (96-108) mmol/L Carbon Dioxide (22-29) mmol/L Anion Gap (12-20) BUN (9-16) mg/dL Creatinine (0.5-1.4) mg/dL Estim Creat Clear Calc Estimated GFR Random Glucose (60-115) mg/dL Calcium (8.4-10.2) mg/dL Magnesium (1.6-2.6) mg/dL Total Bilirubin (0.0-1.0) mg/dL Direct Bilirubin (0.0-0.5) mg/dL AST (5-31) U/L ALT (0-31) U/L Alkaline Phosphatase (39-117) U/L Troponin I High Sens 373.7 H* D (<3.5-17.0) ng/L B-Natriuretic Peptide 18 (<100) pg/mL Total Protein (6.5-8.0) g/dL Albumin (3.5-5.0) g/dL Lipase (8-78) U/L COVID-19 (VIRGILIO) (Negative) COVID-19 Clin Com Influenza Type A (VERONICA) (Negative) Influenza Type B (VERONICA) (Negative) Influenza A & B Note S. pyogenes GrpA VERONICA (Negative) ECG Data Attestation: I personally reviewed and interpreted this ECG as follows: Prior ECG tracings: available for review Interpretation: EKG normal sinus rhythm at a rate of 76. MI interval 188. When compared to prior EKGs PVCs no longer present. No STEMI Critical Care Time Critical Care Time Critical Care Time: Yes Total Critical Care Time: 45 Attestation: I have personally provided critical care time exclusive of time spent on separately billable procedures. Time includes review of lab data, radiology results, discussion with consultants, and monitoring for potential decompensation. Intervention performed as documented. Discharge Plan Discharge Clinical Impression: Non-ST elevation OR (NSTEMI), Calculus of proximal right ureter Patient Disposition: Admitted As Inpatient Prescriptions: No Action phenazopyridine [Pyridium] 100 mg tablet 100 mg PO TID PRN (Reason: spasm) 4 Days Qty: 12 0RF tamsulosin 0.4 mg capsule 0.4 mg PO BEDTIME 14 Days Qty: 14 0RF sulfamethoxazole-trimethoprim [Bactrim] 400-80 mg tablet 1 tab PO DAILY 5 Days Qty: 5 0RF tramadol 50 mg tablet 50 mg PO Q6H PRN (Reason: pain (scale score 1-3)) Qty: 8 0RF ibuprofen 800 mg tablet 800 mg PO Q8H PRN (Reason: pain) Qty: 14 0RF omeprazole 20 mg capsule,delayed release(DR/EC) 1 cap PO QAM albuterol sulfate [Ventolin HFA] 90 mcg/actuation HFA aerosol inhaler 2 puff PO Q4-6H PRN (Reason: Wheezing) fluticasone propionate 50 mcg/actuation spray,suspension 2 spray intranasal DAILY spironolactone 100 mg Tablet 100 mg PO DAILY atorvastatin [Lipitor] 80 mg Tablet 80 mg PO DAILY sumatriptan succinate [Imitrex] 50 mg Tablet 50 mg PO Q2-4H PRN (Reason: Migraine Headache) tramadol 50 mg tablet 1 tab PO Q8H PRN (Reason: severe pain) naproxen 500 mg tablet 500 mg PO BID PRN (Reason: pain) 7 Days Qty: 14 0RF lisinopril 30 mg tablet 1 tab PO DAILY metformin 500 mg tablet extended release 24 hr 1 tab PO QPM baclofen 10 mg tablet 10 mg PO TID PRN (Reason: muscle spasm) ergocalciferol (vitamin D2) 1,250 mcg (50,000 unit) capsule 1,250 mcg PO QWEEK albuterol sulfate 2.5 mg /3 mL (0.083 %) solution for nebulization 2.5 mg inhalation NEEDED fluticasone propionate 110 mcg/actuation HFA aerosol inhaler 2 puff inhalation BID topiramate 50 mg tablet 50 mg PO BID paroxetine HCl 20 mg tablet 20 mg PO BEDTIME (DME) blood pressure test kit-large Kit See Rx Instructions .ROUTE DIRECTED Qty: 1 Rx Instructions: As directed quetiapine 50 mg tablet 50 mg PO Q2D@2100 amitriptyline 10 mg tablet 10 mg PO BEDTIME naproxen 500 mg tablet 500 mg PO ONCE Qty: 1 0RF cholecalciferol (vitamin D3) 50 mcg (2,000 unit) capsule 50 mcg PO DAILY pyridoxine (vitamin B6) 100 mg tablet 100 mg PO DAILY 90 Days Qty: 90 1RF
[2022-05-21] MEDS: iohexoL 350 MG/ML 100 ML INFUS..BTL IV (14:12)
[2022-05-21 16:36] LABS: Troponin-I High Sensitivity 373.7 ng/L (<3.5-17.0)
[2022-05-21] MEDS: Tamsulosin HCL 0.4 MG CAPSULE PO (16:39)
[2022-05-21 16:44] VITALS: BP 155/84; PULSE 63
[2022-05-21] MEDS: Morphine Sulfate 2 MG/ML CARTRIDGE IVPUSH (16:44)
[2022-05-21] MEDS: Nitroglycerin 0.4 MG TAB.SUBL SUBLINGUAL (16:44)
--- NOTE | 2022-05-21 16:45 | ECG_ITS ---
Test Reason : REPEAT Blood Pressure : / mmHG Vent. Rate : 063 BPM Atrial Rate : 063 BPM P-R Int : 198 ms QRS Dur : 072 ms QT Int : 406 ms P-R-T Axes : 062 049 072 degrees QTc Int : 415 ms Normal sinus rhythm Nonspecific T wave abnormality Abnormal ECG When compared with ECG of 21-MAY-2022 12:01, No significant change was found Referred By: Ankita Dickens Electronically Signed By:LOPEZ SARAH
[2022-05-21 17:01] LABS: Appearance Urine Clear; Color Urine Yellow; Glucose Urine UA Negative (Negative); Leukocyte Esterase Urine Negative (Negative); Nitrite Urine Negative (Negative); Specific Gravity - Urine >= 1.030 (1.005-1.025); Urine Blood Negative (Negative); Urine Ketones Negative (Negative); Urine Protein Negative (Neg-Trace)
[2022-05-21 17:06] VITALS: BMI 60.2
[2022-05-21] MEDS: Clopidogrel Bisulfate 300 MG TABLET PO (17:20)
[2022-05-21] MEDS: Heparin Sodium,Porcine 5,000 UNIT/ML VIAL 4000 UNIT IVPUSH (17:21)
[2022-05-21 17:29] LABS: Partial Thromboplastin Time 37.5 SEC (26.0-36.4)
[2022-05-21] MEDS: Heparin Sodium,Porcine/1/2NS 25,000 UNIT/250 ML IV.SOLN 10 UNIT IVCONT (17:34)
--- NOTE | 2022-05-21 17:38 | PC.NURSE ---
Heparin gtt started at 10ml/hr per protocol.
[2022-05-21 18:28] VITALS: BP 164/94; PULSE 78; RESP 15; TEMP 36.7; O2SAT 97
--- NOTE | 2022-05-21 18:34 | PM.IMHP ---
History of Present Illness Date of Service: 05/21/22 Chief Complaint: CHest pain 47 yo F with PMHx asthma, depression, HTN, HLD, renal stones, migraines, obesity, YAMILETH on CPAP, PTSD, presenting to the ED complaining of left-sided chest pain radiating down LUE/neck/jaw; back pain/flank pain, upper abdominal pain, sore throat, and myalgias x today. ER Course Initial workup consistent with a troponin that has peaked in the ER at 373; CT abdomen and pelvis demonstrated a [id number] right hydronephrosis caused by a 0.3 cm calculus in the proximal right ureter. Case discussed with Cardiology. Heparin drip started and Plavix 300 given (ASA anaphylaxis); EKG consistent with NSTEMI Review of Systems Review of Systems: Admits to chest pain on admission that has subsequently resolved Denies shortness of breath Denies nausea vomiting diarrhea Admits to right flank pain PMFSH Medical History Asthma Chronic pain Depression Fatty liver Frequent UTI HTN (hypertension) Hyperlipidemia Kidney stone Leukocytosis Mass of throat Migraine Obesity YAMILETH on CPAP PTSD (post-traumatic stress disorder) Smoker Family History Father Hypertension Mother Hypertension Osteoporosis Hx of bilateral cataract extraction Paternal Grandmother Diabetes Sister Asthma Maternal Uncle Throat cancer Maternal Aunt Ovarian cancer Breast cancer Surgical History H/O: hysterectomy History of breast lump/mass excision History of endometrial ablation History of lithotripsy History of lumpectomy of left breast (10/22/21) History of tonsillectomy Hx of colonoscopy Social History Household Members: Family Housing: Apartment Are you a primary child care center administrator to a significant other at home: No Do you presently have visiting nurse or other home services: No Alcohol intake: never Patient Tobacco Use Status: Current everyday Tobacco user Tobacco use type: Cigarette Cigarette Packs Per Day: 1 Cigarettes Per Day: 20.0 Advance Directives: No Advance Directives Information Provided: No service: No Current occupational status: unemployed Meds Allergies Allergy/AdvReac Type Severity Reaction Status Date / Time aspirin [ASPIRIN] Allergy Severe DIFFICULTY Verified 03/13/22 14:37 BREATHING, anaphylaxis penicillin G [PENICILLIN G] Allergy Severe DIFFICULTY Verified 03/13/22 14:37 BREATHING Active Medications: Current Medications Acetaminophen (Acetaminophen 325 Mg Tablet) 650 mg PO Q6H PRN PRN Reason: Pain, Mild (Pain Scale 1-3) Atorvastatin Calcium (Atorvastatin Calcium 80 Mg Tablet) 80 mg PO DAILY ONE Stop: 05/21/22 18:32 Clopidogrel Bisulfate (Clopidogrel Bisulfate 75 Mg Tablet) 75 mg PO DAILY ONE Stop: 05/21/22 18:32 Dextrose (Dextrose 50 % 25 Gm/50 Ml Syringe) 25 gm IVPUSH Q15M PRN; Protocol PRN Reason: per Hypoglycemia Standing Ord. Glucose (Glucose Gel 15 Gm Gel..Gram.) 15 gm PO Q15M PRN; Protocol PRN Reason: per Hypoglycemia Standing Ord. Heparin Sodium (Porcine) (Heparin Sodium,Porcine 5,000 Unit/Ml Vial) 7,200 unit 40 unit/kg (7200 unit) IVPUSH PROTOCOL BOLUS PRN; Protocol PRN Reason: 40 unit/kg - Heparin Protocol Heparin Sodium (Porcine) (Heparin Sodium,Porcine 5,000 Unit/Ml Vial) 10,000 unit IVPUSH PROTOCOL BOLUS PRN; Protocol PRN Reason: 80 unit/kg - Heparin Protocol Heparin Sodium/Sodium Chloride (Heparin Sodium,Porcine/1/2ns) 25,000 unit in 250 mls @ 0 mls/hr IVCONT .Q0M [facility]; Protocol Last Admin: 05/21/22 17:34 Dose: 5.56 units/kg/hr, 10 mls/hr Insulin Human Lispro (Insulin Lispro 100 Unit/Ml 3 Ml Vial) 0 unit SUBCUT QIDACHS [facility]; Protocol Ondansetron HCl (Ondansetron Hcl 4 Mg/2 Ml Vial) 4 mg IVPUSH Q8H PRN PRN Reason: Nausea and Vomiting Pharmacy Consult (Consult Rx Perform Med Rec) 1 each MISCELLANE ONCE PRN PRN Reason: Consult order Sodium Chloride (0.9 % Sodium Chloride Flush 3 Ml Syringe) 3 ml IVFLUSH QSHI Home Medications Medication Instructions Recorded Confirmed Last Taken Type albuterol sulfate 2.5 mg/3 mL 2.5 mg inhalation Q4H PRN Wheezing 11/03/20 02/21/22 Unknown History (0.083 %) solution for nebulization baclofen 10 mg tablet 10 mg PO TID PRN muscle spasm 11/03/20 02/21/22 Unknown History albuterol sulfate 90 mcg/actuation 2 puff PO Q4-6H PRN Wheezing 12/01/20 02/21/22 Unknown History aerosol inhaler (Ventolin HFA) atorvastatin 80 mg tablet (Lipitor) 80 mg PO DAILY 12/01/20 02/21/22 Unknown History fluticasone propionate 50 2 spray intranasal DAILY 12/01/20 02/21/22 Unknown History mcg/actuation nasal spray,suspension omeprazole 20 mg capsule,delayed 1 cap PO QAM 12/01/20 02/21/22 Unknown History release spironolactone 100 mg tablet 100 mg PO DAILY 12/01/20 02/21/22 02/21/22 History sumatriptan succinate 50 mg tablet 50 mg PO Q2-4H PRN Migraine 12/01/20 02/21/22 Unknown History (Imitrex) Headache blood pressure test kit-large #1 ea 12/19/20 11/09/21 Unknown History paroxetine HCl 20 mg tablet 20 mg PO BEDTIME 12/19/20 02/21/22 Unknown History quetiapine 50 mg tablet 50 mg PO BID 12/19/20 02/21/22 Unknown History topiramate 50 mg tablet 50 mg PO BID 12/19/20 02/21/22 Unknown History amitriptyline 10 mg tablet 10 mg PO BEDTIME 06/14/21 02/21/22 Unknown History lisinopril 30 mg tablet 1 tab PO DAILY 10/16/21 02/21/22 02/21/22 History metformin 500 mg tablet,extended 1 tab PO QPM 10/16/21 02/21/22 Unknown History release 24 hr tramadol 50 mg tablet 1 tab PO Q8H PRN severe pain 02/21/22 02/21/22 Unknown History cholecalciferol (vitamin D3) 50 50 mcg PO DAILY 03/13/22 Unknown History mcg (2,000 unit) capsule Physical Exam Vital Signs and Narrative: Vital Signs: Last Vital Signs Temp 98.1 F 05/21/22 18:28 Pulse 78 05/21/22 18:28 Resp 15 05/21/22 18:28 BP 164/94 H 05/21/22 18:28 Pulse Ox 97 05/21/22 18:28 O2 Del Method 05/21/22 18:28 BMI result Body Mass Index 60.2 Const: Other: No acute distress chest pain-free; obese Resp: Other: Clear but diminished bilaterally no rales rhonchi or wheezes Cardio: Other: No S4; positive S1-S2; no S3 murmurs rubs or gallops GI: Other: Obese; positive bowel sounds Extrem: Other: No edema bilaterally Results Labs CBC and Chem 7: 05/21/22 12:54 05/21/22 12:54 Labs: Laboratory Results - last 24 hr 05/21/22 05/21/22 05/21/22 12:50 12:50 12:50 MCV MCH MCHC RDW Plt Count MPV Immature Gran % (Auto) Neut % (Auto) Lymph % (Auto) [place] % (Auto) Eos % (Auto) Baso % (Auto) Lymph # (Auto) [place] # (Auto) Eos # (Auto) Baso # (Auto) Abs Immat Gran (auto) Absolute Neuts (auto) Absolute Nucleated RBC Nucleated RBC % (auto) PT INR APTT Anion Gap Estim Creat Clear Calc Estimated GFR Random Glucose Calcium Magnesium Total Bilirubin Direct Bilirubin AST ALT Alkaline Phosphatase Troponin I High Sens B-Natriuretic Peptide Total Protein Albumin Lipase Urine Color Urine Appearance Urine pH Ur Specific [place] Urine Protein Urine Glucose (UA) Urine Ketones Urine Blood Urine Nitrite Ur Leukocyte Esterase COVID-19 (VIRGILIO) Negative COVID-19 Clin Com See Note Influenza Type A (VERONICA) Negative Influenza Type B (VERONICA) Negative Influenza A & B Note See Note S. pyogenes GrpA VERONICA Negative 05/21/22 05/21/22 05/21/22 12:54 12:54 12:54 MCV 91.2 MCH 29.7 MCHC 32.6 RDW 14.0 Plt Count 328 MPV 9.6 Immature Gran % (Auto) 0.8 H Neut % (Auto) 61.5 Lymph % (Auto) 26.1 [place] % (Auto) 8.5 Eos % (Auto) 2.6 Baso % (Auto) 0.5 Lymph # (Auto) 3.0 [place] # (Auto) 1.0 Eos # (Auto) 0.3 Baso # (Auto) 0.1 Abs Immat Gran (auto) 0.09 H Absolute Neuts (auto) 7.1 Absolute Nucleated RBC 0.000 Nucleated RBC % (auto) 0.0 PT INR APTT Anion Gap 14 Estim Creat Clear Calc 129.0 Estimated GFR 59 Random Glucose 120 H Calcium 9.2 Magnesium 1.9 Total Bilirubin 0.3 Direct Bilirubin < 0.2 AST 14 ALT 14 Alkaline Phosphatase 86 Troponin I High Sens 106.8 H* B-Natriuretic Peptide Total Protein 7.1 Albumin 3.7 Lipase 11 Urine Color Urine Appearance Urine pH Ur Specific [place] Urine Protein Urine Glucose (UA) Urine Ketones Urine Blood Urine Nitrite Ur Leukocyte Esterase COVID-19 (VIRGILIO) COVID-19 Clin Com Influenza Type A (VERONICA) Influenza Type B (VERONICA) Influenza A & B Note S. pyogenes GrpA VERONICA 05/21/22 05/21/22 05/21/22 12:54 16:04 16:47 MCV MCH MCHC RDW Plt Count MPV Immature Gran % (Auto) Neut % (Auto) Lymph % (Auto) [place] % (Auto) Eos % (Auto) Baso % (Auto) Lymph # (Auto) [place] # (Auto) Eos # (Auto) Baso # (Auto) Abs Immat Gran (auto) Absolute Neuts (auto) Absolute Nucleated RBC Nucleated RBC % (auto) PT INR APTT Anion Gap Estim Creat Clear Calc Estimated GFR Random Glucose Calcium Magnesium Total Bilirubin Direct Bilirubin AST ALT Alkaline Phosphatase Troponin I High Sens 373.7 H* D B-Natriuretic Peptide 18 Total Protein Albumin Lipase Urine Color Yellow Urine Appearance Clear Urine pH 6.0 Ur Specific [place] >= 1.030 H Urine Protein Negative Urine Glucose (UA) Negative Urine Ketones Negative Urine Blood Negative Urine Nitrite Negative Ur Leukocyte Esterase Negative COVID-19 (VIRGILIO) COVID-19 Clin Com Influenza Type A (VERONICA) Influenza Type B (VERONICA) Influenza A & B Note S. pyogenes GrpA VERONICA 05/21/22 17:05 MCV MCH MCHC RDW Plt Count MPV Immature Gran % (Auto) Neut % (Auto) Lymph % (Auto) [place] % (Auto) Eos % (Auto) Baso % (Auto) Lymph # (Auto) [place] # (Auto) Eos # (Auto) Baso # (Auto) Abs Immat Gran (auto) Absolute Neuts (auto) Absolute Nucleated RBC Nucleated RBC % (auto) PT 12.0 INR 1.0 APTT 37.5 H Anion Gap Estim Creat Clear Calc Estimated GFR Random Glucose Calcium Magnesium Total Bilirubin Direct Bilirubin AST ALT Alkaline Phosphatase Troponin I High Sens B-Natriuretic Peptide Total Protein Albumin Lipase Urine Color Urine Appearance Urine pH Ur Specific [place] Urine Protein Urine Glucose (UA) Urine Ketones Urine Blood Urine Nitrite Ur Leukocyte Esterase COVID-19 (VIRGILIO) COVID-19 Clin Com Influenza Type A (VERONICA) Influenza Type B (VERONICA) Influenza A & B Note S. pyogenes GrpA VERONICA Imaging Radiologist's Impressions: Impressions Chest X-Ray 05/21/22 13:21 IMPRESSION: Unremarkable chest examination. Abdomen/Pelvis CT 05/21/22 14:12 IMPRESSION: 1. Mild to moderate right hydronephrosis caused by 0.3 cm calculus in the proximal right ureter. Nonobstructing left intrarenal calculi. 2. Left ovarian cyst was not seen previously but is likely physiologic and most likely benign. No other significant abnormality. Assessment and Plan (1) Non-ST elevation [place] (NSTEMI): Status: Acute (2) Calculus of proximal right ureter: Status: Acute (3) HTN (hypertension): Status: Acute (4) Hyperlipidemia: Status: Acute Plan 47-year-old morbidly obese female presents with chest pain that radiated down her left arm into her jaw in her throat along with right flank pain that all began today. She has a history of 1 pack a day tobacco abuse and a family history of coronary artery disease. Workup in the emergency room consistent with non ST elevation [place]/right ureteral calculus 1.NSTEMI -admit to telemetry; troponins q.6 hours overnight -heparin drip; Plavix given secondary to allergy to aspirin -continue statin -cardiology consult in a.m. 2. Renal calculus -asymptomatic at present. No intervention at this time -consult Urology when appropriate 3. Hypertension -continue lisinopril and Aldactone at outpatient dosing -adjust as indicated 4. Hyperlipidemia -Lipitor as ordered 5. PCO -hold metformin in anticipation of cardiac catheterization Full code Lovenox Patient will require 2 midnights going forward for IV heparin and and workup of NSTEMI. This cannot be achieved a lesser acute facility Quality Stroke Does the patient have a stroke diagnosis?: No VTE Prior VTE?: No VTE Risk Level:: Medical - moderate - high VTE Device Contraindication: Treatment Not Indicated VTE Drug Contraindication: N/A - Med Ordered
[2022-05-21] MEDS: Atorvastatin Calcium 80 MG TABLET PO (18:47)
[2022-05-21 21:51] LABS: Glucose, Whole Blood 127 mg/dL (60-115)
--- NOTE | 2022-05-21 22:19 | P.CNUR_ITS ---
History of Present Illness Consult details Consult date: 05/21/22 Narrative: 47 yo F with PMHx asthma, depression, HTN, HLD, renal stones, migraines, obesity, YAMILETH on CPAP, PTSD, presenting to the ED complaining of left-sided chest pain radiating down LUE, denies right flank pain, denies pain with urinating.? CT imaging --right kidney mild/mod hydro with 3 mm proximal ureteral stone Pertinent h/o-recent right ureteroscopy for 6 mm proximal ureteral stone--02/2022 Pertinent labs 05/21/22--BUN/Creat 31/08. Review of Systems Review of Systems: 10 point ROS negative other than stated in HPI [facility] Past Medical History Medical History Asthma Chronic pain Depression Fatty liver Frequent UTI HTN (hypertension) Hyperlipidemia Kidney stone Leukocytosis Mass of throat Migraine Obesity YAMILETH on CPAP PTSD (post-traumatic stress disorder) Smoker Family History Family History Father Hypertension Mother Hypertension Osteoporosis Hx of bilateral cataract extraction Paternal Grandmother Diabetes Sister Asthma Maternal Uncle Throat cancer Maternal Aunt Ovarian cancer Breast cancer Surgical History Surgical History H/O: hysterectomy History of breast lump/mass excision History of endometrial ablation History of lithotripsy History of lumpectomy of left breast (10/22/21) History of tonsillectomy Hx of colonoscopy Social History Social History Household Members: Family Housing: Apartment Are you a primary reservoir caretaker to a significant other at home: No Do you presently have visiting nurse or other home services: No Alcohol intake: never Patient Tobacco Use Status: Current everyday Tobacco user Tobacco use type: Cigarette Cigarette Packs Per Day: 1 Cigarettes Per Day: 20.0 Advance Directives: No Advance Directives Information Provided: No service: No Current occupational status: unemployed Meds Allergies Allergy/AdvReac Type Severity Reaction Status Date / Time aspirin [ASPIRIN] Allergy Severe DIFFICULTY Verified 03/13/22 14:37 BREATHING, anaphylaxis penicillin G [PENICILLIN G] Allergy Severe DIFFICULTY Verified 03/13/22 14:37 BREATHING Active Medications: Current Medications Acetaminophen (Acetaminophen 325 Mg Tablet) 650 mg PO Q6H PRN PRN Reason: Pain, Mild (Pain Scale 1-3) Dextrose (Dextrose 50 % 25 Gm/50 Ml Syringe) 25 gm IVPUSH Q15M PRN; Protocol PRN Reason: per Hypoglycemia Standing Ord. Glucose (Glucose Gel 15 Gm Gel..Gram.) 15 gm PO Q15M PRN; Protocol PRN Reason: per Hypoglycemia Standing Ord. Heparin Sodium (Porcine) (Heparin Sodium,Porcine 5,000 Unit/Ml Vial) 7,200 unit 40 unit/kg (7200 unit) IVPUSH PROTOCOL BOLUS PRN; Protocol PRN Reason: 40 unit/kg - Heparin Protocol Heparin Sodium (Porcine) (Heparin Sodium,Porcine 5,000 Unit/Ml Vial) 10,000 unit IVPUSH PROTOCOL BOLUS PRN; Protocol PRN Reason: 80 unit/kg - Heparin Protocol Heparin Sodium/Sodium Chloride (Heparin Sodium,Porcine/1/2ns) 25,000 unit in 250 mls @ 0 mls/hr IVCONT .Q0M [facility]; Protocol Last Admin: 05/21/22 17:34 Dose: 5.56 units/kg/hr, 10 mls/hr Insulin Human Lispro (Insulin Lispro 100 Unit/Ml 3 Ml Vial) 0 unit SUBCUT QIDACHS [facility]; Protocol Last Admin: 05/21/22 22:09 Dose: Not Given Ondansetron HCl (Ondansetron Hcl 4 Mg/2 Ml Vial) 4 mg IVPUSH Q8H PRN PRN Reason: Nausea and Vomiting Pharmacy Consult (Consult Rx Perform Med Rec) 1 each MISCELLANE ONCE PRN PRN Reason: Consult order Sodium Chloride (0.9 % Sodium Chloride Flush 3 Ml Syringe) [facility] Home Medications Medication Instructions Recorded Confirmed Last Taken Type albuterol sulfate 2.5 mg/3 mL 2.5 mg inhalation Q4H PRN Wheezing 11/03/20 05/21/22 Unknown History (0.083 %) solution for nebulization baclofen 10 mg tablet 10 mg PO TID PRN muscle spasm 11/03/20 05/21/22 Unknown History albuterol sulfate 90 mcg/actuation 2 puff PO Q4-6H PRN Wheezing 12/01/20 05/21/22 Unknown History aerosol inhaler (Ventolin HFA) atorvastatin 80 mg tablet (Lipitor) 80 mg PO BEDTIME 12/01/20 05/21/22 05/20/22 History fluticasone propionate 50 2 spray intranasal DAILY 12/01/20 05/21/22 05/21/22 History mcg/actuation nasal spray,suspension omeprazole 20 mg capsule,delayed 1 cap PO DAILY 12/01/20 05/21/22 05/21/22 History release spironolactone 100 mg tablet 100 mg PO DAILY 12/01/20 05/21/22 05/21/22 History sumatriptan succinate 50 mg tablet 50 mg PO Q2-4H PRN Migraine 12/01/20 05/21/22 Unknown History (Imitrex) Headache blood pressure test kit-large #1 ea 12/19/20 11/09/21 Unknown History paroxetine HCl 20 mg tablet 20 mg PO BEDTIME 12/19/20 05/21/22 05/20/22 History quetiapine 50 mg tablet 50 mg PO BID 12/19/20 05/21/22 05/21/22 History topiramate 50 mg tablet 50 mg PO BID 12/19/20 05/21/22 Unknown History amitriptyline 10 mg tablet 10 mg PO BEDTIME 06/14/21 05/21/22 05/20/22 History lisinopril 30 mg tablet 1 tab PO DAILY 10/16/21 05/21/22 05/21/22 History metformin 500 mg tablet,extended 1 tab PO QPM 10/16/21 05/21/22 05/20/22 History release 24 hr tramadol 50 mg tablet 1 tab PO Q8H PRN severe pain 02/21/22 05/21/22 Unknown History cholecalciferol (vitamin D3) 50 50 mcg PO DAILY 03/13/22 05/21/22 05/21/22 History mcg (2,000 unit) capsule Physical Exam Vital Signs: Vital Signs: Last Vital Signs Temp 98.1 F 05/21/22 18:28 Pulse 78 05/21/22 18:28 Resp 15 05/21/22 18:28 BP 164/94 H 05/21/22 18:28 Pulse Ox 97 05/21/22 18:28 O2 Del Method 05/21/22 18:28 BMI result Body Mass Index 60.2 Const: General: cooperative and no acute distress Nutritional Appearance: obese Orientation/consciousness: patient oriented x3 HEENT: Head: Yes normocephalic and Yes atraumatic Eyes: Conjunctivae: conjunctivae normal Neck: Neck: Yes trachea midline Resp: Effort & Inspection: normal respiratory effort Cardio: Rate: regular rate GI: Palpation (GI): Soft to palpation and nontender : General: Yes no CVA tenderness OB/external & speculum: Deferred OB/external & speculum exam Back/Spine/Pelvis: Back: no CVA tenderness Skin: Wounds: no wounds noted Neuro: General: patient oriented x3 Psych: Appearance: grossly normal Results Labs Result diagrams: 05/22/22 04:22 05/22/22 04:22 Labs: Abnormal lab results 05/21/22 05/21/22 05/21/22 Range/Units 12:54 12:54 12:54 WBC 11.5 H (4.8-10.8) X10*3/uL Immature Gran % (Auto) 0.8 H (0.0-0.4) % Abs Immat Gran (auto) 0.09 H (0.00-0.03) X10*3/uL APTT (26.0-36.4) SEC POC Glucose (60-115) mg/dL Random Glucose 120 H (60-115) mg/dL Troponin I High Sens 106.8 H* (<3.5-17.0) ng/L Ur Specific [place] (1.005-1.025) 05/21/22 05/21/22 05/21/22 Range/Units 16:04 16:47 17:05 WBC (4.8-10.8) X10*3/uL Immature Gran % (Auto) (0.0-0.4) % Abs Immat Gran (auto) (0.00-0.03) X10*3/uL APTT 37.5 H (26.0-36.4) SEC POC Glucose (60-115) mg/dL Random Glucose (60-115) mg/dL Troponin I High Sens 373.7 H* D (<3.5-17.0) ng/L Ur Specific [place] >= 1.030 H (1.005-1.025) 05/21/22 Range/Units 21:47 WBC (4.8-10.8) X10*3/uL Immature Gran % (Auto) (0.0-0.4) % Abs Immat Gran (auto) (0.00-0.03) X10*3/uL APTT (26.0-36.4) SEC POC Glucose 127 H (60-115) mg/dL Random Glucose (60-115) mg/dL Troponin I High Sens (<3.5-17.0) ng/L Ur Specific [place] (1.005-1.025) Short CBC 05/21/22 Range/Units 12:54 WBC 11.5 H (4.8-10.8) X10*3/uL Hgb 13.8 (12.0-16.0) g/dl Hct 42.3 (37.0-47.0) % Plt Count 328 (160-400) X10*3/uL BMP 05/21/22 12:54 Sodium 139 Potassium 4.0 Chloride 107 Carbon Dioxide 22 BUN 14 D Creatinine 1.01 Calcium 9.2 Liver Function 05/21/22 Range/Units 12:54 Total Bilirubin 0.3 (0.0-1.0) mg/dL Direct Bilirubin < 0.2 (0.0-0.5) mg/dL AST 14 (5-31) U/L ALT 14 (0-31) U/L Alkaline Phosphatase 86 (39-117) U/L Albumin 3.7 (3.5-5.0) g/dL Urine 05/21/22 Range/Units 16:47 Urine Color Yellow Urine Appearance Clear Urine pH 6.0 (5.0-9.0) Ur Specific [place] >= 1.030 H (1.005-1.025) Urine Protein Negative (Neg-Trace) mg/dL Urine Glucose (UA) Negative (Negative) mg/dL All other labs normal. Imaging Abdomen CT scan report/results: report reviewed and image reviewed Additional studies: Date of Service: 05/21/22 Procedure(s): CT abdomen pelvis w IV con Accession Number(s): [id number] cc: Ankita Dickens~ EXAMINATION: CT ABDOMEN AND PELVIS WITH CONTRAST? CLINICAL INFORMATION: Abdominal pain.? COMPARISON: CT scan of the abdomen and pelvis dated 02/21/2022.? TECHNIQUE: Multidetector volumetric images were obtained from the superior aspect of the liver through the pubic symphysis following administration of 100 mL of Omnipaque 350 intravenous contrast. Sagittal and coronal reformatted images were obtained on the technologist's workstation.? Oral contrast: No This CT examination was performed using dose optimization techniques as appropriate, variously including the following: *Automated exposure control *Adjustment of mA and/or kV according to patient size (this includes techniques or standardized protocols for targeted exams where dose is matched to indication/reason for exam; i.e. extremities or head) *Use of iterative reconstruction technique DLP: 1195 mGy-cm FINDINGS: LUNG BASES: The visualized lung bases are unremarkable.? LIVER, GALLBLADDER, AND BILIARY TREE: Unremarkable. PANCREAS: Unremarkable.? SPLEEN: Unremarkable.? ADRENAL GLANDS: Unremarkable.? KIDNEYS AND URETERS: Mild to moderate right hydronephrosis caused by a 0.3 cm calculus in the proximal one third of the right ureter (image 63, series 4). Nonobstructing small left intrarenal calculi are seen. A client service representative interpolar calculus measures 0.4 cm (image 81, series 4). No left hydroureteronephrosis. BLADDER: Unremarkable.? GASTROINTESTINAL TRACT: The stomach, small bowel and appendix are unremarkable. The colon and rectum are unremarkable.? ABDOMINAL WALL: No significant hernia is appreciated.? LYMPH NODES: No lymphadenopathy. VASCULAR: Unremarkable. PELVIC VISCERA: Status post hysterectomy. Left ovarian cyst measures up to 5.6 cm (image 70, series 4). OSSEOUS STRUCTURES: Unremarkable.? CT/CT abdomen pelvis w IV con IMPRESSION: 1. Mild to moderate right hydronephrosis caused by 0.3 cm calculus in the proximal right ureter. Nonobstructing left intrarenal calculi. 2. Left ovarian cyst was not seen previously but is likely physiologic and most likely benign. No other significant abnormality. Assessment and Plan (1) Right kidney stone: Status: Acute (2) Hydronephrosis: Status: Acute Plan IVF Hydration Will follow for now, 3 mm right ureteral stone, small and renal function WNL Pt denies renal colic; and may pass stone since small size. Consider right ureteral stent if cleared cardiac -jacobs and renal symptoms worsen Procedures Date of Service Date of Service: 05/21/22
[2022-05-21 23:55] LABS: PTT Heparin Drip 43.4 SEC (53-77.9)
--- NOTE | 2022-05-22 | ECG_ITS ---
Test Reason : CP Blood Pressure : / mmHG Vent. Rate : 064 BPM Atrial Rate : 064 BPM P-R Int : 190 ms QRS Dur : 078 ms QT Int : 456 ms P-R-T Axes : 057 054 097 degrees QTc Int : 470 ms Normal sinus rhythm T wave abnormality, consider anterior ischemia Prolonged QT Abnormal ECG When compared with ECG of 21-MAY-2022 17:03, T wave inversion more evident in Anterior leads QT has lengthened Referred By: Lane Varner Electronically Signed By:LOPEZ SARAH
[2022-05-22] MEDS: Heparin Sodium,Porcine 5,000 UNIT/ML VIAL 7200 UNIT IVPUSH (01:29)
--- NOTE | 2022-05-22 01:50 | PC.NURSE ---
troponin elevated to 598. increase from initial 2 trops. MD Jackson notified. repeat ekg done stat. ekg changes noted. results shared with hospitalist. heparin drip changed per [facility] protocol for low ptt of 43.4. patient bolused with 7200 units heparin, doserate increased by 2u/kg/hr. heparin drip now running at 7.56u/kg/hr. verified with second RN Francesca. will continue to monitor closely. 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 no current complaints or chest pain. resting comfortably on stretcher.
[2022-05-22 04:04] VITALS: BP 147/84; PULSE 56; RESP 20; O2SAT 98
[2022-05-22 04:35] LABS: MANUAL DIFF FLAG NO
[2022-05-22 04:37] LABS: Basophils Percent Auto 0.3 % (0-2); Eosinophils Absolute Auto 0.4 X10*3/uL (0.0-0.4); Eosinophils Percent Auto 3.5 % (0-4); Hematocrit 37.1 % (37.0-47.0); Hemoglobin 12.4 g/dl (12.0-16.0); Imm Gran Abs Auto 0.13 X10*3/uL (0.00-0.03); Imm Gran Pct Auto 1.2 % (0.0-0.4); Lymphocytes Percent Auto 35.3 % (20-40); Mean Corpuscular HGB Conc 33.4 g/dl (31.0-35.0); Mean Corpuscular Hemoglobin 30.4 pg (27.0-33.0); Mean Corpuscular Volume 90.9 fL (80.0-98.0); Mean Platelet Volume 9.6 fL (9.4-12.3); Monocytes Absolute Auto 0.9 X10*3/uL (0.1-1.2); Monocytes Percent Auto 8.2 % (2-11); Neutrophils Absolute Auto 5.8 x10*3/uL (2.0-8.3); Neutrophils Percent Auto 51.5 % (45-73); Platelet Count 283 X10*3/uL (160-400); Red Blood Count 4.08 X10*6/uL (4.20-5.50); Red Cell Distribution Width 14.1 % (11.0-16.0); White Blood Count 11.2 X10*3/uL (4.8-10.8)
[2022-05-22 04:42] LABS: Prothrombin Time 11.7 SEC (10.0-13.1)
[2022-05-22 04:57] LABS: Alanine Aminotransferase 11 U/L (0-31); Albumin Level 3.2 g/dL (3.5-5.0); Alkaline Phosphatase 75 U/L (39-117); Anion Gap 15 (12-20); Aspartate Amino Transferase 15 U/L (5-31); Bilirubin Total 0.2 mg/dL (0.0-1.0); Blood Urea Nitrogen 12 mg/dL (9-16); Calcium 8.6 mg/dL (8.4-10.2); Carbon Dioxide 19 mmol/L (22-29); Chloride 111 mmol/L (96-108); Estimated Glomerular Filt Rate > 60; Glucose Fasting 148 mg/dL (60-99); Potassium 3.8 mmol/L (3.3-5.1); Sodium 141 mmol/L (135-145); Total Protein 6.2 g/dL (6.5-8.0)
[2022-05-22 05:08] LABS: Troponin-I High Sensitivity 665.2 ng/L (<3.5-17.0)
--- NOTE | 2022-05-22 05:19 | PC.NURSE ---
critical repeat troponin of 665.2, up from previous troponin of 598. MD Jackson notfied. states we will continue with same plan. pt on heparin drip.
[2022-05-22 07:37] LABS: Glucose, Whole Blood 104 mg/dL (60-115)
[2022-05-22] MEDS: Midazolam HCl/PF 2 MG/2 ML VIAL 4 MG IVPUSH (08:54)
[2022-05-22] MEDS: 0.9 % Sodium Chloride Flush 3 ML SYRINGE IVFLUSH (08:55)
--- NOTE | 2022-05-22 08:56 | PC.NURSE ---
Dealer Support Technician at bedside patient requesting to leave AMA because she hasn't had a cigarette since 6 am yesterday and she is feeling anxious . Contacted DR. Yeager for order for nicotine patch , patient refused . Asked provider to talk to patient . Dr. Yeager at bedside explain to patient the severity her lab values and importance her staying . New order for versed obtained for anxiety . patient currently on 7 u/kg/h heparin per protocol . patient aware plan of care .
[2022-05-22 09:15] LABS: PTT Heparin Drip 53.4 SEC (53-77.9)
--- NOTE | 2022-05-22 09:31 | PC.NURSE ---
patient appt 53.4 continue at same rate of current heparin drip . patient aware of plan of care .
--- NOTE | 2022-05-22 10:11 | P.CONCA_ITS ---
History of Present Illness History of Present Illness Date of Service: 05/22/22 Requesting physician: Mg Yeager Consult reason: other (NSTEMI) Chief complaint: NSTEMI Narrative: I was consulted to see Blaire in cardiology consultation today for acute coronary syndrome. She is a 47-year-old woman, history was obtained with help of formal wear rental clerk at bedside with her daughter also at bedside. She was in usual state of health yesterday after showering she fell all tired and went and laid down and then suddenly developed throat discomfort radiating down to her chest and into her arm. She then decided come to the emergency room. Initial EKG in the are ED shows no significant ischemic changes. Troponin was elevated 300. Subsequent troponin up to 600. Cardiology was consulted with. Repeat EKG showed mild biphasic T-wave changes anterior leads and subsequent EKG shows T- wave inversion in the anterior leads. She has remained chest pain free. Her troponins have down trended. Overall findings consistent with high risk acute c oronary syndrome. She has prior history of hypertension, hyperlipidemia, morbid obesity. She has prior history of nephrolithiasis. Her overall medical conditions complicated by anaphylactic reaction to aspirin therefore we loaded her with Plavix yesterday and give her IV heparin. She is getting IV heparin has remained chest pain free. She has no history of diabetes, prior vascular or coronary disease. Prior to this episode happening she has not had any exertional chest pain. She says she is limited in activity due to her left knee arthritis. Review of Systems Constitutional: Constitutional: Reports no additional constitutional complaints Eyes: Eyes: Reports no additional eye complaints Cardiovascular: Cardiovascular: Reports chest pain at rest, Denies lightheadedness, Denies Loss of Consciousness, Reports radiating jaw, neck or arm pain, Denies palpitations and Reports dyspnea Respiratory: Respiratory: Reports dyspnea Gastrointestinal: Gastrointestinal: Reports no additional gastrointestinal complaints Genitourinary: Genitourinary: Reports no additional female genitourinary complaints Musculoskeletal: Musculoskeletal: Reports no additional musculoskeletal complaints Integumentary/Breasts: Skin/Breast: Reports system reviewed and no additional complaints, except as docu Neurologic: Reports system reviewed and no additional complaints, except as documented Psychiatric: Psychiatric: Reports no additional psychiatric complaints Endocrine: Endocrine: Reports no additional endocrine complaints and Denies palpitations PMFSH Past Medical History Medical History Asthma Chronic pain Depression Fatty liver Frequent UTI HTN (hypertension) Hyperlipidemia Kidney stone Leukocytosis Mass of throat Migraine Obesity YAMILETH on CPAP PTSD (post-traumatic stress disorder) Smoker Family History Family History Father Hypertension Mother Hypertension Osteoporosis Hx of bilateral cataract extraction Paternal Grandmother Diabetes Sister Asthma Maternal Uncle Throat cancer Maternal Aunt Ovarian cancer Breast cancer Surgical History Surgical History H/O: hysterectomy History of breast lump/mass excision History of endometrial ablation History of lithotripsy History of lumpectomy of left breast (10/22/21) History of tonsillectomy Hx of colonoscopy Social History Social History Household Members: Family Housing: Apartment Are you a primary director of career services to a significant other at home: No Do you presently have visiting nurse or other home services: No Alcohol intake: never Patient Tobacco Use Status: Current everyday Tobacco user Tobacco use type: Cigarette Cigarette Packs Per Day: 1 Cigarettes Per Day: 20.0 Advance Directives: No Advance Directives Information Provided: No service: No Current occupational status: unemployed Meds Allergies Allergy/AdvReac Type Severity Reaction Status Date / Time aspirin [ASPIRIN] Allergy Severe DIFFICULTY Verified 03/13/22 14:37 BREATHING, anaphylaxis penicillin G [PENICILLIN G] Allergy Severe DIFFICULTY Verified 03/13/22 14:37 BREATHING Active Medications: Current Medications Acetaminophen (Acetaminophen 325 Mg Tablet) 650 mg PO Q6H PRN PRN Reason: Pain, Mild (Pain Scale 1-3) Dextrose (Dextrose 50 % 25 Gm/50 Ml Syringe) 25 gm IVPUSH Q15M PRN; Protocol PRN Reason: per Hypoglycemia Standing Ord. Glucose (Glucose Gel 15 Gm Gel..Gram.) 15 gm PO Q15M PRN; Protocol PRN Reason: per Hypoglycemia Standing Ord. Heparin Sodium (Porcine) (Heparin Sodium,Porcine 5,000 Unit/Ml Vial) 7,200 unit 40 unit/kg (7200 unit) IVPUSH PROTOCOL BOLUS PRN; Protocol PRN Reason: 40 unit/kg - Heparin Protocol Last Admin: 05/22/22 01:29 Dose: 7,200 unit Heparin Sodium (Porcine) (Heparin Sodium,Porcine 5,000 Unit/Ml Vial) 10,000 unit IVPUSH PROTOCOL BOLUS PRN; Protocol PRN Reason: 80 unit/kg - Heparin Protocol Heparin Sodium/Sodium Chloride (Heparin Sodium,Porcine/1/2ns) 25,000 unit in 250 mls @ 0 mls/hr IVCONT .Q0M [facility]; Protocol Last Titration: 05/22/22 01:34 Dose: 7.562 units/kg/hr, 13.6 mls/hr Insulin Human Lispro (Insulin Lispro 100 Unit/Ml 3 Ml Vial) 0 unit SUBCUT QIDACHS [facility]; Protocol Last Admin: 05/22/22 08:05 Dose: Not Given Nicotine (Nicotine 21 Mg Patch.Td24) 21 mg TRANSDERMA DAILY [facility] Last Admin: 05/22/22 09:02 Dose: Not Given Ondansetron HCl (Ondansetron Hcl 4 Mg/2 Ml Vial) 4 mg IVPUSH Q8H PRN PRN Reason: Nausea and Vomiting Pharmacy Consult (Consult Rx Perform Med Rec) 1 each MISCELLANE ONCE PRN PRN Reason: Consult order Sodium Chloride (0.9 % Sodium Chloride Flush 3 Ml Syringe) 3 ml IVFLUSH QSHIFT [facility] Last Admin: 05/22/22 08:55 Dose: 3 ml Home Medications Medication Instructions Recorded Confirmed Last Taken Type albuterol sulfate 2.5 mg/3 mL 2.5 mg inhalation Q4H PRN Wheezing 11/03/20 05/21/22 Unknown History (0.083 %) solution for nebulization baclofen 10 mg tablet 10 mg PO TID PRN muscle spasm 11/03/20 05/21/22 Unknown History albuterol sulfate 90 mcg/actuation 2 puff PO Q4-6H PRN Wheezing 12/01/20 05/21/22 Unknown History aerosol inhaler (Ventolin HFA) atorvastatin 80 mg tablet (Lipitor) 80 mg PO BEDTIME 12/01/20 05/21/22 05/20/22 History fluticasone propionate 50 2 spray intranasal DAILY 12/01/20 05/21/22 05/21/22 History mcg/actuation nasal spray,suspension omeprazole 20 mg capsule,delayed 1 cap PO DAILY 12/01/20 05/21/22 05/21/22 History release spironolactone 100 mg tablet 100 mg PO DAILY 12/01/20 05/21/22 05/21/22 History sumatriptan succinate 50 mg tablet 50 mg PO Q2-4H PRN Migraine 12/01/20 05/21/22 Unknown History (Imitrex) Headache blood pressure test kit-large #1 ea 12/19/20 11/09/21 Unknown History paroxetine HCl 20 mg tablet 20 mg PO BEDTIME 12/19/20 05/21/22 05/20/22 History quetiapine 50 mg tablet 50 mg PO BID 12/19/20 05/21/22 05/21/22 History topiramate 50 mg tablet 50 mg PO BID 12/19/20 05/21/22 Unknown History amitriptyline 10 mg tablet 10 mg PO BEDTIME 06/14/21 05/21/22 05/20/22 History lisinopril 30 mg tablet 1 tab PO DAILY 10/16/21 05/21/22 05/21/22 History metformin 500 mg tablet,extended 1 tab PO QPM 10/16/21 05/21/22 05/20/22 History release 24 hr tramadol 50 mg tablet 1 tab PO Q8H PRN severe pain 02/21/22 05/21/22 Unknown History cholecalciferol (vitamin D3) 50 50 mcg PO DAILY 03/13/22 05/21/22 05/21/22 History mcg (2,000 unit) capsule Physical Exam Vital Signs: Vital Signs: Last Vital Signs Temp 98.1 F 05/21/22 18:28 Pulse 56 05/22/22 04:04 Resp 20 05/22/22 04:04 BP 147/84 H 05/22/22 04:04 Pulse Ox 98 05/22/22 04:04 O2 Del Method 05/22/22 04:04 BMI result Body Mass Index 60.2 Const: General: cooperative, comfortable, no acute distress, alert and awake Nutritional Appearance: obese morbidly obese Orientation/consciousness: patient oriented x3 HEENT: Head: Yes normocephalic and Yes atraumatic Neck: Neck: Yes trachea midline, Yes supple and Yes no JVD Chest: Chest palpation & inspection: normal inspection of the chest Resp: Effort & Inspection: normal respiratory effort Auscultation: clear to auscultation bilaterally, no crackles, no rales, no rhonchi and no wheezes Cardio: Jugular venous distension: no JVD Palpation: normal PMI Rate: regular rate Rhythm: regular rhythm Heart sounds: S1 normal heart sound present, S2 normal heart sound present, no click, no gallops, no murmurs and no rubs GI: Auscultation: normal bowel sounds Skin: General skin exam: no rashes or lesions noted Neuro: General: patient oriented x3 and no focal motor deficits Extrem: General: Yes no clubbing, cyanosis or edema Objective Labs and Meds Result diagrams: 05/22/22 04:22 05/22/22 04:22 Lab results: Laboratory Results - last 24 hr 05/21/22 05/21/22 05/21/22 12:50 12:50 12:50 WBC RBC Hgb Hct MCV MCH MCHC RDW Plt Count MPV Immature Gran % (Auto) Neut % (Auto) Lymph % (Auto) Luce % (Auto) Eos % (Auto) Baso % (Auto) Lymph # (Auto) Luce # (Auto) Eos # (Auto) Baso # (Auto) Abs Immat Gran (auto) Absolute Neuts (auto) Absolute Nucleated RBC Nucleated RBC % (auto) PT INR APTT aPTT Heparin Protocol Sodium Potassium Chloride Carbon Dioxide Anion Gap BUN Creatinine Estim Creat Clear Calc Estimated GFR POC Glucose Random Glucose Fasting Glucose Calcium Magnesium Total Bilirubin Direct Bilirubin AST ALT Alkaline Phosphatase Troponin I High Sens B-Natriuretic Peptide Total Protein Albumin Lipase Urine Color Urine Appearance Urine pH Ur Specific [place] Urine Protein Urine Glucose (UA) Urine Ketones Urine Blood Urine Nitrite Ur Leukocyte Esterase COVID-19 (VIRGILIO) Negative COVID-19 Clin Com See Note Influenza Type A (VERONICA) Negative Influenza Type B (VERONICA) Negative Influenza A & B Note See Note S. pyogenes GrpA VERONICA Negative 05/21/22 05/21/22 05/21/22 12:54 12:54 12:54 WBC 11.5 H RBC 4.64 Hgb 13.8 Hct 42.3 MCV 91.2 MCH 29.7 MCHC 32.6 RDW 14.0 Plt Count 328 MPV 9.6 Immature Gran % (Auto) 0.8 H Neut % (Auto) 61.5 Lymph % (Auto) 26.1 Luce % (Auto) 8.5 Eos % (Auto) 2.6 Baso % (Auto) 0.5 Lymph # (Auto) 3.0 Luce # (Auto) 1.0 Eos # (Auto) 0.3 Baso # (Auto) 0.1 Abs Immat Gran (auto) 0.09 H Absolute Neuts (auto) 7.1 Absolute Nucleated RBC 0.000 Nucleated RBC % (auto) 0.0 PT INR APTT aPTT Heparin Protocol Sodium 139 Potassium 4.0 Chloride 107 Carbon Dioxide 22 Anion Gap 14 BUN 14 D Creatinine 1.01 Estim Creat Clear Calc 129.0 Estimated GFR 59 POC Glucose Random Glucose 120 H Fasting Glucose Calcium 9.2 Magnesium 1.9 Total Bilirubin 0.3 Direct Bilirubin < 0.2 AST 14 ALT 14 Alkaline Phosphatase 86 Troponin I High Sens 106.8 H* B-Natriuretic Peptide Total Protein 7.1 Albumin 3.7 Lipase 11 Urine Color Urine Appearance Urine pH Ur Specific [place] Urine Protein Urine Glucose (UA) Urine Ketones Urine Blood Urine Nitrite Ur Leukocyte Esterase COVID-19 (VIRGILIO) COVID-19 Clin Com Influenza Type A (VERONICA) Influenza Type B (VERONICA) Influenza A & B Note S. pyogenes GrpA VERONICA 05/21/22 05/21/22 05/21/22 12:54 16:04 16:47 WBC RBC Hgb Hct MCV MCH MCHC RDW Plt Count MPV Immature Gran % (Auto) Neut % (Auto) Lymph % (Auto) Luce % (Auto) Eos % (Auto) Baso % (Auto) Lymph # (Auto) Luce # (Auto) Eos # (Auto) Baso # (Auto) Abs Immat Gran (auto) Absolute Neuts (auto) Absolute Nucleated RBC Nucleated RBC % (auto) PT INR APTT aPTT Heparin Protocol Sodium Potassium Chloride Carbon Dioxide Anion Gap BUN Creatinine Estim Creat Clear Calc Estimated GFR POC Glucose Random Glucose Fasting Glucose Calcium Magnesium Total Bilirubin Direct Bilirubin AST ALT Alkaline Phosphatase Troponin I High Sens 373.7 H* D B-Natriuretic Peptide 18 Total Protein Albumin Lipase Urine Color Yellow Urine Appearance Clear Urine pH 6.0 Ur Specific [place] >= 1.030 H Urine Protein Negative Urine Glucose (UA) Negative Urine Ketones Negative Urine Blood Negative Urine Nitrite Negative Ur Leukocyte Esterase Negative COVID-19 (VIRGILIO) COVID-19 Clin Com Influenza Type A (VERONICA) Influenza Type B (VERONICA) Influenza A & B Note S. pyogenes GrpA VERONICA 05/21/22 05/21/22 05/21/22 17:05 21:47 23:41 WBC RBC Hgb Hct MCV MCH MCHC RDW Plt Count MPV Immature Gran % (Auto) Neut % (Auto) Lymph % (Auto) Luce % (Auto) Eos % (Auto) Baso % (Auto) Lymph # (Auto) Luce # (Auto) Eos # (Auto) Baso # (Auto) Abs Immat Gran (auto) Absolute Neuts (auto) Absolute Nucleated RBC Nucleated RBC % (auto) PT 12.0 INR 1.0 APTT 37.5 H aPTT Heparin Protocol Sodium Potassium Chloride Carbon Dioxide Anion Gap BUN Creatinine Estim Creat Clear Calc Estimated GFR POC Glucose 127 H Random Glucose Fasting Glucose Calcium Magnesium Total Bilirubin Direct Bilirubin AST ALT Alkaline Phosphatase Troponin I High Sens 598.0 H* D B-Natriuretic Peptide Total Protein Albumin Lipase Urine Color Urine Appearance Urine pH Ur Specific [place] Urine Protein Urine Glucose (UA) Urine Ketones Urine Blood Urine Nitrite Ur Leukocyte Esterase COVID-19 (VIRGILIO) COVID-19 Clin Com Influenza Type A (VERONICA) Influenza Type B (VERONICA) Influenza A & B Note S. pyogenes GrpA VERONICA 05/21/22 05/22/22 05/22/22 23:42 04:22 04:22 WBC 11.2 H RBC 4.08 L Hgb 12.4 Hct 37.1 MCV 90.9 MCH 30.4 MCHC 33.4 RDW 14.1 Plt Count 283 MPV 9.6 Immature Gran % (Auto) 1.2 H Neut % (Auto) 51.5 Lymph % (Auto) 35.3 Luce % (Auto) 8.2 Eos % (Auto) 3.5 Baso % (Auto) 0.3 Lymph # (Auto) 4.0 Luce # (Auto) 0.9 Eos # (Auto) 0.4 Baso # (Auto) 0.0 Abs Immat Gran (auto) 0.13 H Absolute Neuts (auto) 5.8 Absolute Nucleated RBC 0.000 Nucleated RBC % (auto) 0.0 PT 11.7 INR 1.0 APTT aPTT Heparin Protocol 43.4 L Sodium Potassium Chloride Carbon Dioxide Anion Gap BUN Creatinine Estim Creat Clear Calc Estimated GFR POC Glucose Random Glucose Fasting Glucose Calcium Magnesium Total Bilirubin Direct Bilirubin AST ALT Alkaline Phosphatase Troponin I High Sens B-Natriuretic Peptide Total Protein Albumin Lipase Urine Color Urine Appearance Urine pH Ur Specific [place] Urine Protein Urine Glucose (UA) Urine Ketones Urine Blood Urine Nitrite Ur Leukocyte Esterase COVID-19 (VIRGILIO) COVID-19 Clin Com Influenza Type A (VERONICA) Influenza Type B (VERONICA) Influenza A & B Note S. pyogenes GrpA VERONICA 05/22/22 05/22/22 05/22/22 04:22 04:22 07:18 WBC RBC Hgb Hct MCV MCH MCHC RDW Plt Count MPV Immature Gran % (Auto) Neut % (Auto) Lymph % (Auto) Luce % (Auto) Eos % (Auto) Baso % (Auto) Lymph # (Auto) Luce # (Auto) Eos # (Auto) Baso # (Auto) Abs Immat Gran (auto) Absolute Neuts (auto) Absolute Nucleated RBC Nucleated RBC % (auto) PT INR APTT aPTT Heparin Protocol Sodium 141 Potassium 3.8 Chloride 111 H Carbon Dioxide 19 L Anion Gap 15 BUN 12 Creatinine 0.81 Estim Creat Clear Calc 151.0 Estimated GFR > 60 POC Glucose 104 Random Glucose Fasting Glucose 148 H Calcium 8.6 D Magnesium Total Bilirubin 0.2 Direct Bilirubin AST 15 ALT 11 Alkaline Phosphatase 75 Troponin I High Sens 665.2 H* B-Natriuretic Peptide Total Protein 6.2 L Albumin 3.2 L Lipase Urine Color Urine Appearance Urine pH Ur Specific [place] Urine Protein Urine Glucose (UA) Urine Ketones Urine Blood Urine Nitrite Ur Leukocyte Esterase COVID-19 (VIRGILIO) COVID-19 Clin Com Influenza Type A (VERONICA) Influenza Type B (VERONICA) Influenza A & B Note S. pyogenes GrpA VERONICA 05/22/22 08:53 WBC RBC Hgb Hct MCV MCH MCHC RDW Plt Count MPV Immature Gran % (Auto) Neut % (Auto) Lymph % (Auto) Luce % (Auto) Eos % (Auto) Baso % (Auto) Lymph # (Auto) Luce # (Auto) Eos # (Auto) Baso # (Auto) Abs Immat Gran (auto) Absolute Neuts (auto) Absolute Nucleated RBC Nucleated RBC % (auto) PT INR APTT aPTT Heparin Protocol 53.4 D Sodium Potassium Chloride Carbon Dioxide Anion Gap BUN Creatinine Estim Creat Clear Calc Estimated GFR POC Glucose Random Glucose Fasting Glucose Calcium Magnesium Total Bilirubin Direct Bilirubin AST ALT Alkaline Phosphatase Troponin I High Sens B-Natriuretic Peptide Total Protein Albumin Lipase Urine Color Urine Appearance Urine pH Ur Specific [place] Urine Protein Urine Glucose (UA) Urine Ketones Urine Blood Urine Nitrite Ur Leukocyte Esterase COVID-19 (VIRGILIO) COVID-19 Clin Com Influenza Type A (VERONICA) Influenza Type B (VERONICA) Influenza A & B Note S. pyogenes GrpA VERONICA Most recent EKG shows normal sinus rhythm T-wave inversions anterior leads Imaging Radiologist's impression: Impressions Chest X-Ray 05/21/22 13:21 IMPRESSION: Unremarkable chest examination. Abdomen/Pelvis CT 05/21/22 14:12 IMPRESSION: 1. Mild to moderate right hydronephrosis caused by 0.3 cm calculus in the proximal right ureter. Nonobstructing left intrarenal calculi. 2. Left ovarian cyst was not seen previously but is likely physiologic and most likely benign. No other significant abnormality. Assessment and Plan (1) Non-ST elevation CA (NSTEMI): Status: Acute Patient with multiple risk factors present with typical symptoms of myocardial ischemia with EKG changes as well as rise and fall in troponin consistent with high risk features for acute coronary syndrome. Her main complication currently is allergic reaction to aspirin. She is currently getting Plavix and IV heparin. Continue the same. Continue high-intensity statin therapy and metoprolol. She is currently chest pain-free. She will require cardiac catheterization to evaluate for etiology of her acute coronary syndrome. We discussed about pathophysiology of acute coronary syndrome with most likely plaque rupture or erosion as the most common cause. If she requires stenting this may become an issue with her aspirin allergy and will require desensitization prior to putting in the stent. However she require diagnostic cardiac catheterization to 1st evaluate treatment options. Risks, benefits, alternatives 2nd open to procedure were discussed. She understands agrees. Her daughter was present and the findings were discussed with help of for formal wear rental clerk. Arrangements have been made for her to be transferred to [facility]. Will follow-up as outpatient. Procedures Date of Service Date of Service: 05/22/22
[2022-05-22 10:29] LABS: Troponin-I High Sensitivity 624.4 ng/L (<3.5-17.0)
--- NOTE | 2022-05-22 11:06 | P.DS_ITS ---
DS: Providers Provider Date of Service: 05/22/22 Date of admission: 05/21/22 18:26 Date of discharge: 05/22/22 Primary care physician: Carmen Bertrand DO Consults: 05/22/22 07:47 Consult to Cardiology Stat Consulting Provider: Mars Hutchinson Reason for consultation: NSTEMI Has provider been notified: Yes DS: Diagnosis Discharge Diagnosis (1) Non-ST elevation [place] (NSTEMI): Status: Acute DS: Summary Hospital Course Hospital Course: 47 yo F with PMHx asthma, depression, HTN, HLD, renal stones, migraines, obesity, YAMILETH on CPAP, PTSD, presenting to the ED complaining of left-sided chest pain radiating down LUE/neck/jaw; back pain/flank pain, upper abdominal pain, sore throat, and myalgias x today. ER Course Initial workup consistent with a troponin that has peaked in the ER at 373; CT abdomen and pelvis demonstrated a [id number] right hydronephrosis caused by a 0.3 cm calculus in the proximal right ureter.? Case discussed with Cardiology.? Heparin drip started and Plavix 300 given (ASA anaphylaxis); EKG consistent with NSTEMI Hospital Course Admit telemetry overnight. Troponins peak at 665. No further chest pain or EKG changes. Will continue heparin drip Plavix statin and beta-elijah and transfer to [facility] for cardiac catheterization Time Spent with Patient Time attestation: Total time spent providing and/or coordinating discharge services: Discharge coordination time: Greater than 30 minutes Quality: Safe Use of Opioids Does Pt have an Active Cancer Diagnosis on the Problem List?: No Quality: Stroke Does the patient have a stroke diagnosis?: No Physical Exam Vital Signs: Vital Signs: Last Vital Signs Temp 98.1 F 05/21/22 18:28 Pulse 56 05/22/22 04:04 Resp 20 05/22/22 04:04 BP 147/84 H 05/22/22 04:04 Pulse Ox 98 05/22/22 04:04 O2 Del Method 05/22/22 04:04 BMI result Body Mass Index 60.2 Const: Other: No acute distress chest pain-free; obese Resp: Other: Clear but diminished bilaterally no rales rhonchi or wheezes Cardio: Other: No S4; positive S1-S2; no S3 murmurs rubs or gallops GI: Other: Obese; positive bowel sounds Extrem: Other: No edema bilaterally DS: Data Data Completed and Pending Labs on day of discharge: Laboratory Results - last 24 hr 05/21/22 05/21/22 05/21/22 12:50 12:50 12:50 WBC RBC Hgb Hct MCV MCH MCHC RDW Plt Count MPV Immature Gran % (Auto) Neut % (Auto) Lymph % (Auto) [place] % (Auto) Eos % (Auto) Baso % (Auto) Lymph # (Auto) [place] # (Auto) Eos # (Auto) Baso # (Auto) Abs Immat Gran (auto) Absolute Neuts (auto) Absolute Nucleated RBC Nucleated RBC % (auto) PT INR APTT aPTT Heparin Protocol Sodium Potassium Chloride Carbon Dioxide Anion Gap BUN Creatinine Estim Creat Clear Calc Estimated GFR POC Glucose Random Glucose Fasting Glucose Calcium Magnesium Total Bilirubin Direct Bilirubin AST ALT Alkaline Phosphatase Troponin I High Sens B-Natriuretic Peptide Total Protein Albumin Lipase Urine Color Urine Appearance Urine pH Ur Specific [place] Urine Protein Urine Glucose (UA) Urine Ketones Urine Blood Urine Nitrite Ur Leukocyte Esterase COVID-19 (VIRGILIO) Negative COVID-19 Clin Com See Note Influenza Type A (VERONICA) Negative Influenza Type B (VERONICA) Negative Influenza A & B Note See Note S. pyogenes GrpA VERONICA Negative 05/21/22 05/21/22 05/21/22 12:54 12:54 12:54 WBC 11.5 H RBC 4.64 Hgb 13.8 Hct 42.3 MCV 91.2 MCH 29.7 MCHC 32.6 RDW 14.0 Plt Count 328 MPV 9.6 Immature Gran % (Auto) 0.8 H Neut % (Auto) 61.5 Lymph % (Auto) 26.1 [place] % (Auto) 8.5 Eos % (Auto) 2.6 Baso % (Auto) 0.5 Lymph # (Auto) 3.0 [place] # (Auto) 1.0 Eos # (Auto) 0.3 Baso # (Auto) 0.1 Abs Immat Gran (auto) 0.09 H Absolute Neuts (auto) 7.1 Absolute Nucleated RBC 0.000 Nucleated RBC % (auto) 0.0 PT INR APTT aPTT Heparin Protocol Sodium 139 Potassium 4.0 Chloride 107 Carbon Dioxide 22 Anion Gap 14 BUN 14 D Creatinine 1.01 Estim Creat Clear Calc 129.0 Estimated GFR 59 POC Glucose Random Glucose 120 H Fasting Glucose Calcium 9.2 Magnesium 1.9 Total Bilirubin 0.3 Direct Bilirubin < 0.2 AST 14 ALT 14 Alkaline Phosphatase 86 Troponin I High Sens 106.8 H* B-Natriuretic Peptide Total Protein 7.1 Albumin 3.7 Lipase 11 Urine Color Urine Appearance Urine pH Ur Specific [place] Urine Protein Urine Glucose (UA) Urine Ketones Urine Blood Urine Nitrite Ur Leukocyte Esterase COVID-19 (VIRGILIO) COVID-19 Clin Com Influenza Type A (VERONICA) Influenza Type B (VERONICA) Influenza A & B Note S. pyogenes GrpA VERONICA 05/21/22 05/21/22 05/21/22 12:54 16:04 16:47 WBC RBC Hgb Hct MCV MCH MCHC RDW Plt Count MPV Immature Gran % (Auto) Neut % (Auto) Lymph % (Auto) [place] % (Auto) Eos % (Auto) Baso % (Auto) Lymph # (Auto) [place] # (Auto) Eos # (Auto) Baso # (Auto) Abs Immat Gran (auto) Absolute Neuts (auto) Absolute Nucleated RBC Nucleated RBC % (auto) PT INR APTT aPTT Heparin Protocol Sodium Potassium Chloride Carbon Dioxide Anion Gap BUN Creatinine Estim Creat Clear Calc Estimated GFR POC Glucose Random Glucose Fasting Glucose Calcium Magnesium Total Bilirubin Direct Bilirubin AST ALT Alkaline Phosphatase Troponin I High Sens 373.7 H* D B-Natriuretic Peptide 18 Total Protein Albumin Lipase Urine Color Yellow Urine Appearance Clear Urine pH 6.0 Ur Specific [place] >= 1.030 H Urine Protein Negative Urine Glucose (UA) Negative Urine Ketones Negative Urine Blood Negative Urine Nitrite Negative Ur Leukocyte Esterase Negative COVID-19 (VIRGILIO) COVID-19 Clin Com Influenza Type A (VERONICA) Influenza Type B (VERONICA) Influenza A & B Note S. pyogenes GrpA VERONICA 05/21/22 05/21/22 05/21/22 17:05 21:47 23:41 WBC RBC Hgb Hct MCV MCH MCHC RDW Plt Count MPV Immature Gran % (Auto) Neut % (Auto) Lymph % (Auto) [place] % (Auto) Eos % (Auto) Baso % (Auto) Lymph # (Auto) [place] # (Auto) Eos # (Auto) Baso # (Auto) Abs Immat Gran (auto) Absolute Neuts (auto) Absolute Nucleated RBC Nucleated RBC % (auto) PT 12.0 INR 1.0 APTT 37.5 H aPTT Heparin Protocol Sodium Potassium Chloride Carbon Dioxide Anion Gap BUN Creatinine Estim Creat Clear Calc Estimated GFR POC Glucose 127 H Random Glucose Fasting Glucose Calcium Magnesium Total Bilirubin Direct Bilirubin AST ALT Alkaline Phosphatase Troponin I High Sens 598.0 H* D B-Natriuretic Peptide Total Protein Albumin Lipase Urine Color Urine Appearance Urine pH Ur Specific [place] Urine Protein Urine Glucose (UA) Urine Ketones Urine Blood Urine Nitrite Ur Leukocyte Esterase COVID-19 (VIRGILIO) COVID-19 Clin Com Influenza Type A (VERONICA) Influenza Type B (VERONICA) Influenza A & B Note S. pyogenes GrpA VERONICA 05/21/22 05/22/22 05/22/22 23:42 04:22 04:22 WBC 11.2 H RBC 4.08 L Hgb 12.4 Hct 37.1 MCV 90.9 MCH 30.4 MCHC 33.4 RDW 14.1 Plt Count 283 MPV 9.6 Immature Gran % (Auto) 1.2 H Neut % (Auto) 51.5 Lymph % (Auto) 35.3 [place] % (Auto) 8.2 Eos % (Auto) 3.5 Baso % (Auto) 0.3 Lymph # (Auto) 4.0 [place] # (Auto) 0.9 Eos # (Auto) 0.4 Baso # (Auto) 0.0 Abs Immat Gran (auto) 0.13 H Absolute Neuts (auto) 5.8 Absolute Nucleated RBC 0.000 Nucleated RBC % (auto) 0.0 PT 11.7 INR 1.0 APTT aPTT Heparin Protocol 43.4 L Sodium Potassium Chloride Carbon Dioxide Anion Gap BUN Creatinine Estim Creat Clear Calc Estimated GFR POC Glucose Random Glucose Fasting Glucose Calcium Magnesium Total Bilirubin Direct Bilirubin AST ALT Alkaline Phosphatase Troponin I High Sens B-Natriuretic Peptide Total Protein Albumin Lipase Urine Color Urine Appearance Urine pH Ur Specific [place] Urine Protein Urine Glucose (UA) Urine Ketones Urine Blood Urine Nitrite Ur Leukocyte Esterase COVID-19 (VIRGILIO) COVID-19 Clin Com Influenza Type A (VERONICA) Influenza Type B (VERONICA) Influenza A & B Note S. pyogenes GrpA VERONICA 05/22/22 05/22/22 05/22/22 04:22 04:22 07:18 WBC RBC Hgb Hct MCV MCH MCHC RDW Plt Count MPV Immature Gran % (Auto) Neut % (Auto) Lymph % (Auto) [place] % (Auto) Eos % (Auto) Baso % (Auto) Lymph # (Auto) [place] # (Auto) Eos # (Auto) Baso # (Auto) Abs Immat Gran (auto) Absolute Neuts (auto) Absolute Nucleated RBC Nucleated RBC % (auto) PT INR APTT aPTT Heparin Protocol Sodium 141 Potassium 3.8 Chloride 111 H Carbon Dioxide 19 L Anion Gap 15 BUN 12 Creatinine 0.81 Estim Creat Clear Calc 151.0 Estimated GFR > 60 POC Glucose 104 Random Glucose Fasting Glucose 148 H Calcium 8.6 D Magnesium Total Bilirubin 0.2 Direct Bilirubin AST 15 ALT 11 Alkaline Phosphatase 75 Troponin I High Sens 665.2 H* B-Natriuretic Peptide Total Protein 6.2 L Albumin 3.2 L Lipase Urine Color Urine Appearance Urine pH Ur Specific [place] Urine Protein Urine Glucose (UA) Urine Ketones Urine Blood Urine Nitrite Ur Leukocyte Esterase COVID-19 (VIRGILIO) COVID-19 Clin Com Influenza Type A (VERONICA) Influenza Type B (VERONICA) Influenza A & B Note S. pyogenes GrpA VERONICA 05/22/22 05/22/22 08:53 09:53 WBC RBC Hgb Hct MCV MCH MCHC RDW Plt Count MPV Immature Gran % (Auto) Neut % (Auto) Lymph % (Auto) [place] % (Auto) Eos % (Auto) Baso % (Auto) Lymph # (Auto) [place] # (Auto) Eos # (Auto) Baso # (Auto) Abs Immat Gran (auto) Absolute Neuts (auto) Absolute Nucleated RBC Nucleated RBC % (auto) PT INR APTT aPTT Heparin Protocol 53.4 D Sodium Potassium Chloride Carbon Dioxide Anion Gap BUN Creatinine Estim Creat Clear Calc Estimated GFR POC Glucose Random Glucose Fasting Glucose Calcium Magnesium Total Bilirubin Direct Bilirubin AST ALT Alkaline Phosphatase Troponin I High Sens 624.4 H* B-Natriuretic Peptide Total Protein Albumin Lipase Urine Color Urine Appearance Urine pH Ur Specific [place] Urine Protein Urine Glucose (UA) Urine Ketones Urine Blood Urine Nitrite Ur Leukocyte Esterase COVID-19 (VIRGILIO) COVID-19 Clin Com Influenza Type A (VERONICA) Influenza Type B (VERONICA) Influenza A & B Note S. pyogenes GrpA VERONICA Discharge Plan Discharge Anticipated Discharge Date/Time: 05/22/22 10:55 Patient Disposition: Xfer Acute Care Hospital Discharge Diagnosis: NSTEMI Referrals: Carmen Bertrand DO [Primary Care Provider] - 1 Week Discharge Medications: New nicotine 21 mg/24 hr Patch 24 Hour 21 mg transdermal DAILY Qty: 14 0RF heparin(porcine) in 0.45% NaCl 25,000 unit/250 mL Parenteral Solution 25,000 unit continuous IV infusion .Q0M Qty: 100 0RF clopidogrel 75 mg Tablet 75 mg PO DAILY Qty: 30 0RF heparin (porcine) 5,000 unit/mL Solution 7,200 unit IVPUSH PROTOCOL BOLUS PRN (Reason: 40 Unit/Kg - Heparin Protocol) Qty: 30 0RF heparin (porcine) 5,000 unit/mL Solution 10,000 unit IVPUSH PROTOCOL BOLUS PRN (Reason: 80 Unit/Kg - Heparin Protocol) Qty: 30 0RF sodium chloride 0.9 % (flush) [BD PosiFlush Normal Saline 0.9] Syringe 3 ml IVFLUSH QSHIFT Qty: 30 0RF ondansetron HCl (PF) 4 mg/2 mL Solution 4 mg IVPUSH Q8H PRN (Reason: Nausea And Vomiting) Qty: 10 0RF insulin lispro [Humalog U-100 Insulin] 100 unit/mL Solution See Protocol subcut QIDACHS Qty: 10 0RF Protocol: Insulin Correction Scale Less than or equal to 110 ---- Give (units): 0 111 to 150 Give (units): 0 151 to 200 Give (units): 2 201 to 250 Give (units): 4 251 to 300 Give (units): 6 301 to 350 Give (units): 8 Greater than 350 Give (units): 10 Call MD if Blood Glucose > : 350 metoprolol tartrate 25 mg Tablet 25 mg PO BID Qty: 60 0RF Protocol: Hold for SBP/HR < HOLD for SBP < : 90 HOLD for HR < : 60 Continued ibuprofen 800 mg tablet 800 mg PO Q8H PRN (Reason: pain) Qty: 14 0RF omeprazole 20 mg capsule,delayed release(DR/EC) 1 cap PO DAILY albuterol sulfate [Ventolin HFA] 90 mcg/actuation HFA aerosol inhaler 2 puff PO Q4-6H PRN (Reason: Wheezing) fluticasone propionate 50 mcg/actuation spray,suspension 2 spray intranasal DAILY spironolactone 100 mg Tablet 100 mg PO DAILY atorvastatin [Lipitor] 80 mg Tablet 80 mg PO BEDTIME sumatriptan succinate [Imitrex] 50 mg Tablet 50 mg PO Q2-4H PRN (Reason: Migraine Headache) tramadol 50 mg tablet 1 tab PO Q8H PRN (Reason: severe pain) lisinopril 30 mg tablet 1 tab PO DAILY metformin 500 mg tablet extended release 24 hr 1 tab PO QPM baclofen 10 mg tablet 10 mg PO TID PRN (Reason: muscle spasm) albuterol sulfate 2.5 mg /3 mL (0.083 %) solution for nebulization 2.5 mg inhalation Q4H PRN (Reason: Wheezing) topiramate 50 mg tablet 50 mg PO BID paroxetine HCl 20 mg tablet 20 mg PO BEDTIME (DME) blood pressure test kit-large Kit See Rx Instructions .ROUTE DIRECTED Qty: 1 Rx Instructions: As directed quetiapine 50 mg tablet 50 mg PO BID amitriptyline 10 mg tablet 10 mg PO BEDTIME cholecalciferol (vitamin D3) 50 mcg (2,000 unit) capsule 50 mcg PO DAILY pyridoxine (vitamin B6) 100 mg tablet 100 mg PO DAILY 90 Days Qty: 90 1RF Discharge Orders: Discharge Order (Routine); Ordered 05/22/22 Ordered By: Mg Yeager Diet: Advance to usual diet Activity on Discharge: As tolerated Stand Alone Forms: Patient Portal Discharge page Care Plan Goals: Transfer to [facility] for cardiac catheterization Health Concerns: Continue heparin drip/Plavix/high-dose statin/beta-elijah as ordered Plan of Treatment: Further plans based on forthcoming data Assessment: See discharge summary
--- NOTE | 2022-05-22 11:09 | MHC.CM.PN ---
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
[2022-05-22 11:25] VITALS: BP 123/69; PULSE 57; RESP 15; TEMP 36.6; O2SAT 98
[2022-05-22] MEDS: Clopidogrel Bisulfate 75 MG TABLET PO (11:35)
[2022-05-22] MEDS: Metoprolol Tartrate 25 MG TABLET PO (11:35)
[2022-05-22 12:18] VITALS: BP 155/86; PULSE 63; RESP 13; TEMP 36.8; O2SAT 100
[2022-05-22 12:33] LABS: Glucose, Whole Blood 117 mg/dL (60-115)
== END 2022-05-22 16:39 | disposition short-term general hospital (02) | DRG 281 ==
LOC: HO.ED 18:24 → HO.EDOVER 18:45
PROVIDERS: Internal Medicine; Physician Assistant; Admitting Provider Hospitalist; Emergency Provider Emergency Medicine; PCP Family Medicine; Visit Provider Hospitalist
DX: I21.4 Non-ST elevation (NSTEMI) myocardial infarction (principal); N13.2 Hydronephrosis with renal and ureteral calculous obstruction; Z68.44 Body mass index [BMI] 60.0-69.9, adult; G89.29 Other chronic pain; E78.5 Hyperlipidemia, unspecified; F43.10 Post-traumatic stress disorder, unspecified; E66.9 Obesity, unspecified; J45.909 Unspecified asthma, uncomplicated; G47.33 Obstructive sleep apnea (adult) (pediatric); F17.210 Nicotine dependence, cigarettes, uncomplicated; Z71.6 Tobacco abuse counseling; Z20.822 Contact with and (suspected) exposure to COVID-19; Z88.0 Allergy status to penicillin; Z88.6 Allergy status to analgesic agent; Z79.4 Long term (current) use of insulin; Z79.51 Long term (current) use of inhaled steroids; Z79.84 Long term (current) use of oral hypoglycemic drugs; Z79.899 Other long term (current) drug therapy
CPT/HCPCS: 36415; 71045; 74177; 80048; 80053; 80076; 81003; 82947; 83690; 83735; 83880; 84484; 85025; 85610; 85730; 87502; 87635; 87651; 93005; 99285; J2250; J2270; Q9967

== ENCOUNTER → 2022-06-17 13:33 | Outpatient (BNVA) | payer OTHER, SELFPAY | PROVIDERS: PCP Family Medicine; Visit Provider Physician Assistant | DX: Z12.11 Encounter for screening for malignant neoplasm of colon (principal); I21.4 Non-ST elevation (NSTEMI) myocardial infarction | CPT/HCPCS: 99202 ==

== ENCOUNTER → 2022-06-18 14:52 | Outpatient (BNVA) | payer OTHER, SELFPAY | PROVIDERS: PCP Family Medicine; Visit Provider Urology | DX: N20.0 Calculus of kidney (principal) | CPT/HCPCS: 99212 ==

== ENCOUNTER → 2022-07-01 14:20 | Outpatient (BNVA) | payer OTHER, SELFPAY | PROVIDERS: PCP Family Medicine; Visit Provider Internal Medicine Cardiovascular Disease | DX: I25.10 Atherosclerotic heart disease of native coronary artery without angina pectoris (principal) | CPT/HCPCS: 99212 ==

== ENCOUNTER 2022-07-02 | Outpatient (REF) | payer OTHER, SELFPAY ==
--- NOTE | ~2022-07-02 | XR_ITS ---
EXAMINATION: XR KNEE, STANDING AP XR KNEE, RIGHT XR KNEE, LEFT CLINICAL INFORMATION: Knee pain COMPARISON: Radiographs bilateral knees 12/19/2020. TECHNIQUE: Each knee is imaged in standing AP, lateral, and axial patella views. There are a total of 6 views, 3 on each side. FINDINGS: Right: There is tricompartment osteoarthritis greatest medial knee joint compartment and lateral patellofemoral joint. There is no erosive change or chondrocalcinosis. There are marginal osteophyte from the femoral condyles and tibial plateau and lateral patella. Small suprapatellar effusion suggested. Hoffa's fat pad appears normal. No lateralization patella. Left: There is tricompartment osteoarthritis greatest medial knee joint compartment and patellofemoral joint. There are marginal osteophytes. No erosive change or chondrocalcinosis. Small to moderate effusion suggested. No lateralization patella. XR/XR knee LT 2V IMPRESSION: Right: -Tricompartment osteoarthritis, greatest medial knee joint compartment and lateral patellofemoral joint. -Small suprapatellar effusion. Left: -Tricompartment osteoarthritis, greatest medial knee joint compartment and patellofemoral joint. -Probable moderate effusion.
--- NOTE | ~2022-07-02 | XR_ITS ---
EXAMINATION: XR KNEE, STANDING AP XR KNEE, RIGHT XR KNEE, LEFT CLINICAL INFORMATION: Knee pain COMPARISON: Radiographs bilateral knees 12/19/2020. TECHNIQUE: Each knee is imaged in standing AP, lateral, and axial patella views. There are a total of 6 views, 3 on each side. FINDINGS: Right: There is tricompartment osteoarthritis greatest medial knee joint compartment and lateral patellofemoral joint. There is no erosive change or chondrocalcinosis. There are marginal osteophyte from the femoral condyles and tibial plateau and lateral patella. Small suprapatellar effusion suggested. Hoffa's fat pad appears normal. No lateralization patella. Left: There is tricompartment osteoarthritis greatest medial knee joint compartment and patellofemoral joint. There are marginal osteophytes. No erosive change or chondrocalcinosis. Small to moderate effusion suggested. No lateralization patella. XR/XR knee RT 2V IMPRESSION: Right: -Tricompartment osteoarthritis, greatest medial knee joint compartment and lateral patellofemoral joint. -Small suprapatellar effusion. Left: -Tricompartment osteoarthritis, greatest medial knee joint compartment and patellofemoral joint. -Probable moderate effusion.
--- NOTE | ~2022-07-02 | XR_ITS ---
EXAMINATION: XR KNEE, STANDING AP XR KNEE, RIGHT XR KNEE, LEFT CLINICAL INFORMATION: Knee pain COMPARISON: Radiographs bilateral knees 12/19/2020. TECHNIQUE: Each knee is imaged in standing AP, lateral, and axial patella views. There are a total of 6 views, 3 on each side. FINDINGS: Right: There is tricompartment osteoarthritis greatest medial knee joint compartment and lateral patellofemoral joint. There is no erosive change or chondrocalcinosis. There are marginal osteophyte from the femoral condyles and tibial plateau and lateral patella. Small suprapatellar effusion suggested. Hoffa's fat pad appears normal. No lateralization patella. Left: There is tricompartment osteoarthritis greatest medial knee joint compartment and patellofemoral joint. There are marginal osteophytes. No erosive change or chondrocalcinosis. Small to moderate effusion suggested. No lateralization patella. XR/XR knee standing BI IMPRESSION: Right: -Tricompartment osteoarthritis, greatest medial knee joint compartment and lateral patellofemoral joint. -Small suprapatellar effusion. Left: -Tricompartment osteoarthritis, greatest medial knee joint compartment and patellofemoral joint. -Probable moderate effusion.
== END 2022-07-02 00:01 | disposition home or self-care (01) ==
LOC: HO.HOSX
PROVIDERS: Visit Provider Physician Assistant
DX: M17.12 Unilateral primary osteoarthritis, left knee (principal); M25.561 Pain in right knee
CPT/HCPCS: 73560; 73565; 99212; J1020

== ENCOUNTER 2022-08-01 08:29 | Outpatient (REF) | payer OTHER, SELFPAY ==
[2022-08-01 08:43] LABS: MANUAL DIFF FLAG NO
[2022-08-01 09:16] LABS: Basophils Absolute Auto 0.1 X10*3/uL (0.0-0.2); Basophils Percent Auto 0.5 % (0-2); Eosinophils Absolute Auto 0.4 X10*3/uL (0.0-0.4); Hematocrit 41.8 % (37.0-47.0); Hemoglobin 13.7 g/dl (12.0-16.0); Imm Gran Abs Auto 0.15 X10*3/uL (0.00-0.03); Imm Gran Pct Auto 1.1 % (0.0-0.4); Lymphocytes Absolute Auto 4.9 X10*3/uL (1.2-4.9); Lymphocytes Percent Auto 36.8 % (20-40); Mean Corpuscular HGB Conc 32.8 g/dl (31.0-35.0); Mean Corpuscular Hemoglobin 29.9 pg (27.0-33.0); Mean Corpuscular Volume 91.3 fL (80.0-98.0); Mean Platelet Volume 10.1 fL (9.4-12.3); Monocytes Percent Auto 7.7 % (2-11); Neutrophils Absolute Auto 6.7 x10*3/uL (2.0-8.3); Neutrophils Percent Auto 50.9 % (45-73); Platelet Count 335 X10*3/uL (160-400); Red Blood Count 4.58 X10*6/uL (4.20-5.50); White Blood Count 13.2 X10*3/uL (4.8-10.8)
[2022-08-01 09:53] LABS: Alanine Aminotransferase 12 U/L (0-31); Albumin Level 3.7 g/dL (3.5-5.0); Alkaline Phosphatase 86 U/L (39-117); Anion Gap 14 (12-20); Aspartate Amino Transferase 11 U/L (5-31); Bilirubin Total 0.4 mg/dL (0.0-1.0); Blood Urea Nitrogen 11 mg/dL (9-16); Calcium 9.7 mg/dL (8.4-10.2); Carbon Dioxide 23 mmol/L (22-29); Chloride 104 mmol/L (96-108); Cholesterol 216 mg/dL; Estimated Glomerular Filt Rate > 60; Glucose Random 97 mg/dL (60-115); HDL Cholesterol 35 mg/dL; LDL Cholesterol Calculated 157 mg/dl; Potassium 4.1 mmol/L (3.3-5.1); Sodium 137 mmol/L (135-145); Triglycerides 122 mg/dL
== END 2022-08-01 08:30 | disposition home or self-care (01) ==
LOC: HO.LAB 08:29
PROVIDERS: Internal Medicine Medical Oncology; Visit Provider Internal Medicine Cardiovascular Disease
DX: D72.829 Elevated white blood cell count, unspecified (principal); I25.10 Atherosclerotic heart disease of native coronary artery without angina pectoris
CPT/HCPCS: 36415; 80053; 80061; 85025

== ENCOUNTER → 2022-10-23 08:46 | Outpatient (BNVA) | payer OTHER, SELFPAY ==
[2022-10-22 13:00] VITALS: BP 128/72; BP 148/88; BMI 63.7
== END ==
PROVIDERS: PCP Family Medicine; Referring Provider Family Medicine; Visit Provider Internal Medicine Cardiovascular Disease
DX: I25.10 Atherosclerotic heart disease of native coronary artery without angina pectoris (principal)
CPT/HCPCS: 99212

== ENCOUNTER 2022-10-24 15:39 | Inpatient (IN) | payer OTHER, SELFPAY ==
[2022-10-22 13:00] VITALS: BP 128/72; BP 148/88; BMI 63.7
--- NOTE | ~2022-10-24 | XR_ITS ---
EXAMINATION: XR CHEST CLINICAL INFORMATION: Chest pain and shortness of breath COMPARISON: 05/21/2022 TECHNIQUE: 2 views of the chest were obtained. FINDINGS: No significant abnormality is noted involving the heart, lungs, mediastinum, bony thorax or soft tissues. XR/XR chest 2V IMPRESSION: Unremarkable examination.
[2022-10-24 15:42] VITALS: BP 185/99; PULSE 82; RESP 18; TEMP 36.2; O2SAT 99; BMI 56.5
--- NOTE | 2022-10-24 15:43 | ED_ITS ---
HPI - Chest Pain General Chief Complaint: Chest Pain <Neelima Peter CNP - Last Filed: 10/24/22 15:48> Stated Complaint: chest and right arm pain h/o heart attack <Neelima Peter CNP - Last Filed: 10/24/22 15:48> Time Seen by Provider: 10/24/22 21:21 <Neelima Peter CNP - Last Filed: 10/24/22 15:48> Source: patient <Armani Woodruff MD - Last Filed: 10/25/22 01:34> Mode of arrival: ambulatory <Armani Woodruff MD - Last Filed: 10/25/22 01:34> Limitations: no limitations <Armani Woodruff MD - Last Filed: 10/25/22 01:34> History of Present Illness HPI narrative: Patients with history of coronary artery disease status post proximal LAD drug-eluting stent 6 months on Brilinta and aspirin, asthma, obese patient, YAMILETH on CPAP was seen by orthodontist assistant yesterday follow-up today 13:00 mid chest pain radiating to the left arm and upper back patient lasted till 19:00 while waiting in the waiting area. Initial troponin was less than 3.5 repeat troponin was 5.6 patient chest pain-free now patient did not have any chest pain after the stent was placed is a first-time patient came to the ER for chest pain after stent pl aced patient denied any diaphoresis no nausea no vomiting no shortness of breath no leg edema or swelling <Armani Woodruff MD - Last Filed: 10/25/22 01:34> Related Data Home Medications: Home Medications Medication Instructions Recorded Confirmed baclofen 10 mg tablet 10 mg PO TID PRN muscle spasm 11/03/20 10/23/22 albuterol sulfate 90 mcg/actuation 2 puff PO Q4-6H PRN Wheezing 12/01/20 10/23/22 aerosol inhaler (Ventolin HFA) atorvastatin 80 mg tablet (Lipitor) 80 mg PO BEDTIME 12/01/20 10/23/22 fluticasone propionate 50 2 spray intranasal DAILY 12/01/20 10/23/22 mcg/actuation nasal spray,suspension blood pressure test kit-large #1 ea 12/19/20 10/23/22 topiramate 50 mg tablet 50 mg PO BID 12/19/20 10/23/22 cholecalciferol (vitamin D3) 50 50 mcg PO DAILY 03/13/22 10/23/22 mcg (2,000 unit) capsule mirtazapine 7.5 mg tablet 7.5 mg PO BEDTIME 06/17/22 10/23/22 aspirin 81 mg tablet,delayed 81 mg PO DAILY 07/01/22 10/23/22 release lisinopril 30 mg tablet 30 mg PO DAILY 07/01/22 10/23/22 metformin 500 mg tablet,extended 500 mg PO QPM 07/01/22 10/23/22 release 24 hr metoprolol succinate 50 mg 50 mg PO DAILY 07/01/22 10/23/22 tablet,extended release 24 hr omeprazole 20 mg capsule,delayed 20 mg PO DAILY 07/01/22 10/23/22 release ticagrelor 90 mg tablet (Brilinta) 90 mg PO BID 07/02/22 10/23/22 tramadol 50 mg tablet 50 mg PO Q8H PRN severe pain 10/24/22 10/23/22 Previous Rx's Medication Instructions Recorded allopurinol 100 mg tablet 100 mg PO DAILY 90 days #90 tabs 06/18/22 pyridoxine (vitamin B6) 100 mg 100 mg PO DAILY 90 days #90 tabs 06/18/22 tablet ezetimibe 10 mg tablet (Zetia) 10 mg PO DAILY #30 tabs 10/23/22 <Neelima Peter CNP - Last Filed: 10/24/22 15:48> Allergies/Adverse Reactions: Allergies Allergy/AdvReac Type Severity Reaction Status Date / Time penicillin G [PENICILLIN G] Allergy Severe DIFFICULTY Verified 10/23/22 08:53 BREATHING <Neelima Peter CNP - Last Filed: 10/24/22 15:48> Review of Systems Review of Systems: Constitutional : No Weight loss, No Fever, No Chills ENT/Mouth : No sore throat, No Rhinorrhea Eyes: No Eye Pain, No Swelling Cardiovascular : ++ Chest Pain, no palpitations Respiratory : No Cough, No Sputum, no shortness of breath Gastrointestinal : no Nausea, No Vomiting, No Diarrhea, No abdominal Pain, no black stools Genitourinary : No Dysuria, No Urinary Frequency Musculoskeletal : No joint pain, No Myalgias, No Joint Swelling Skin : No Skin Lesions, No rash Neuro : No Weakness, No Numbness, No Dizziness, No Headache Psych : No Anxiety/Panic, No Depression Heme/Lymph: No Bruising, No Lymphadenopathy Endocrine : No Polyuria, No Polydipsia All other systems reviewed and are negative <Armani Woodruff MD - Last Filed: 10/25/22 01:34> Yes all other systems are reviewed and are negative <Armani Woodruff MD - Last Filed: 10/25/22 01:34> [facility] Past Medical History Medical History: Medical History Asthma CAD (coronary artery disease) Chronic pain Depression Fatty liver Frequent UTI HTN (hypertension) Hyperlipidemia Kidney stone Leukocytosis Mass of throat Migraine Non-ST elevation OH (NSTEMI) Obesity YAMILETH on CPAP PTSD (post-traumatic stress disorder) Smoker Subsequent non-ST elevation myocardial infarction (NSTEMI) within 4 weeks of initial infarction <Neelima Peter CNP - Last Filed: 10/24/22 15:48> Surgical History: Surgical History H/O: hysterectomy History of breast lump/mass excision History of endometrial ablation History of heart artery stent History of lithotripsy History of lumpectomy of left breast (10/22/21) History of tonsillectomy Hx of colonoscopy Stented coronary artery <Neelima Peter CNP - Last Filed: 10/24/22 15:48> Family History Family History: Family History Father Hypertension Mother Hypertension Osteoporosis Hx of bilateral cataract extraction Paternal Grandmother Diabetes Sister Asthma Maternal Uncle Throat cancer Maternal Aunt Ovarian cancer Breast cancer <Neelima Peter CNP - Last Filed: 10/24/22 15:48> Social History Social History: Social History Household Members: Family Housing: Apartment Are you a primary rn intensive care unit to a significant other at home: No Do you presently have visiting nurse or other home services: No Alcohol intake: never Patient Tobacco Use Status: Current everyday Tobacco user Tobacco use type: Cigarette Cigarette Packs Per Day: 1 Cigarettes Per Day: 20.0 Years Smoked: 27 Advance Directives: No Advance Directives Information Provided: Yes Patient : No service: No Current occupational status: unemployed <Neelima PeterLOUISE - Last Filed: 10/24/22 15:48> Physical Exam Vital Signs: Vital Signs: Last Vital Signs Temp 97.8 F 10/25/22 01:31 Pulse 66 10/25/22 01:31 Resp 16 10/25/22 01:31 BP 140/81 H 10/25/22 01:31 Pulse Ox 96 10/25/22 01:31 O2 Del Method 10/25/22 01:31 BMI result Body Mass Index 56.5 <Neelima PeterLOUISE - Last Filed: 10/24/22 15:48> Vital Signs: Last Vital Signs Temp 97.8 F 10/25/22 01:31 Pulse 66 10/25/22 01:31 Resp 16 10/25/22 01:31 BP 140/81 H 10/25/22 01:31 Pulse Ox 96 10/25/22 01:31 O2 Del Method 10/25/22 01:31 BMI result Body Mass Index 56.5 <Armani Woodruff MD - Last Filed: 10/25/22 01:34> Appearance: Alert. Oriented X3. No acute distress. Obese Eyes: No pallor ENT: Pharynx normal. Oral Mucosa moist Neck: Normal inspection. Neck supple. CVS: Normal heart rate and rhythm. Pulses normal. Respiratory: No respiratory distress. Equal air entry bilateral, no wheezing/r ales/rhonchi Abdomen: Soft and nontender. Bowel sounds are present, no mass palpable, no CVA tenderness Skin: Skin warm and dry. Normal skin color. Normal skin turgor. Extremities: No lower extremity edema. No calf tenderness Neuro: Oriented X 3. No motor deficit. No sensory deficit.No cerebellar signs , cranial nerves II-XII intact <Armani Woodruff MD - Last Filed: 10/25/22 01:34> Course Course Course Narrative: Patient is a 47-year-old female who presents emergency department for evaluation of chest pain, onset 1 hour, 1.5 hours prior to arrival felt substernal radiating into the neck in the left shoulder. Onset while she was cooking today. States yesterday she was evaluated by orthodontist assistant, was advised that she has significantly elevated blood cholesterol levels. Reports a history of myocardial infarction approximately 6 months ago; rcoronary artery disease with prior acute coronary syndrome with proximal LAD drug-eluting stent. She expresses that it feels consistent with pain associated with her prior OH. Plan: Labs, EKG, chest x-ray <Neelima Peter CNP - Last Filed: 10/24/22 15:48> Medications Administered Generic Name Dose Route Start Last Admin Trade Name Freq PRN Reason Stop Dose Admin Heparin Sodium/Sodium Chloride 25,000 unit in 250 mls @ 0 mls/hr 10/24/22 23:45 10/25/22 01:02 Heparin Sodium,Porcine/1/2ns IVCONT 5.65 units/kg/hr .Q0M ANDREW 10 mls/hr Administration Protocol Per Protocol Sodium Chloride 3 ml 10/25/22 00:00 10/25/22 01:08 0.9 % Sodium Chloride Flush 3 Ml Syringe IVFLUSH 3 ml QSHIFT ANDREW Administration Discontinued Medications Generic Name Dose Route Start Last Admin Trade Name Freq PRN Reason Stop Dose Admin Heparin Sodium (Porcine) 5,000 unit 10/24/22 23:56 10/25/22 01:05 Heparin Sodium,Porcine 5,000 Unit/Ml Vial IVPUSH 10/24/22 23:57 5,000 unit ONCE ONE Administration Nitroglycerin 1 inch 10/24/22 23:45 10/25/22 01:06 Nitroglycerin 2 % Oint 1 Gm Packet TRANSDERMA 10/24/22 23:46 1 inch ONCE ONE Administration <Neelima Peter CNP - Last Filed: 10/24/22 15:48> Medications Administered Generic Name Dose Route Start Last Admin Trade Name Freq PRN Reason Stop Dose Admin Heparin Sodium/Sodium Chloride 25,000 unit in 250 mls @ 0 mls/hr 10/24/22 23:45 10/25/22 01:02 Heparin Sodium,Porcine/1/2ns IVCONT 5.65 units/kg/hr .Q0M ANDREW 10 mls/hr Administration Protocol Per Protocol Sodium Chloride 3 ml 10/25/22 00:00 10/25/22 01:08 0.9 % Sodium Chloride Flush 3 Ml Syringe IVFLUSH 3 ml QSHIFT ANDREW Administration Discontinued Medications Generic Name Dose Route Start Last Admin Trade Name Ming PRN Reason Stop Dose Admin Heparin Sodium (Porcine) 5,000 unit 10/24/22 23:56 10/25/22 01:05 Heparin Sodium,Porcine 5,000 Unit/Ml Vial IVPUSH 10/24/22 23:57 5,000 unit ONCE ONE Administration Nitroglycerin 1 inch 10/24/22 23:45 10/25/22 01:06 Nitroglycerin 2 % Oint 1 Gm Packet TRANSDERMA 10/24/22 23:46 1 inch ONCE ONE Administration <Armani Woodruff MD - Last Filed: 10/25/22 01:34> Medical Decision Making Medical Decision Making [facility] Narrative: Patient with chest pain with history of coronary disease status post stent placement without any ischemic changes in the EKG but increase in the delta troponin will admit patient rule out ACS started on heparin drip case discussed Dr. Noyola orthodontist assistant agreed with the plan could not give [place] as not available [place] [facility] [place] duration patient denied significant chest pain still having some discomfort in left shoulder nitropaste was applied and heparin drip started <Armani Woodruff MD - Last Filed: 10/25/22 01:34> Differential Diagnosis Unstable angina/non STEMI/acute OH <Armani Woodruff MD - Last Filed: 10/25/22 01:34> Consult Healthcare Provider Management of the patient was discussed with: Hospitalist <Armani Woodruff MD - Last Filed: 10/25/22 01:34> Lab Data [facility] Lab Attestation statement: I reviewed the patient's lab results. <Armani Woodruff MD - Last Filed: 10/25/22 01:34> Result Diagrams: 10/24/22 15:58 10/24/22 15:58 <Neelima Peter CNP - Last Filed: 10/24/22 15:48> Labs: Lab Results 10/24/22 10/24/22 10/24/22 Range/Units 15:58 15:58 15:58 WBC 13.1 H (4.8-10.8) X10*3/uL RBC 4.21 (4.20-5.50) X10*6/uL Hgb 13.0 (12.0-16.0) g/dl Hct 39.7 (37.0-47.0) % MCV 94.3 (80.0-98.0) fL MCH 30.9 (27.0-33.0) pg MCHC 32.7 (31.0-35.0) g/dl RDW 13.9 (11.0-16.0) % Plt Count 359 (160-400) X10*3/uL MPV 9.7 (9.4-12.3) fL Immature Gran % (Auto) 1.0 H (0.0-0.4) % Neut % (Auto) 51.0 (45-73) % Lymph % (Auto) 35.9 (20-40) % Yates % (Auto) 8.0 (2-11) % Eos % (Auto) 3.6 (0-4) % Baso % (Auto) 0.5 (0-2) % Lymph # (Auto) 4.7 (1.2-4.9) X10*3/uL Yates # (Auto) 1.1 (0.1-1.2) X10*3/uL Eos # (Auto) 0.5 H (0.0-0.4) X10*3/uL Baso # (Auto) 0.1 (0.0-0.2) X10*3/uL Abs Immat Gran (auto) 0.13 H (0.00-0.03) X10*3/uL Absolute Neuts (auto) 6.7 (2.0-8.3) x10*3/uL Absolute Nucleated RBC 0.000 (0.0-0.012) X10*3/uL Nucleated RBC % (auto) 0.0 (0.0-0.2) /100WBC PT 11.1 (10.0-13.1) SEC INR 1.0 (0.9-1.1) APTT 38.1 H (26.0-36.4) SEC Sodium 140 (135-145) mmol/L Potassium 4.1 (3.3-5.1) mmol/L Chloride 106 (96-108) mmol/L Carbon Dioxide 26 (22-29) mmol/L Anion Gap 12 (12-20) BUN 9 (9-16) mg/dL Creatinine 0.87 (0.5-1.4) mg/dL Estim Creat Clear Calc 126.3 Estimated GFR > 60 Random Glucose 86 (60-115) mg/dL Calcium 8.7 (8.4-10.2) mg/dL Total Bilirubin 0.2 (0.0-1.0) mg/dL AST 15 (5-31) U/L ALT 15 (0-31) U/L Alkaline Phosphatase 76 (39-117) U/L Troponin I High Sens (<3.5-17.0) ng/L B-Natriuretic Peptide (<100) pg/mL Total Protein 6.8 (6.5-8.0) g/dL Albumin 3.5 (3.5-5.0) g/dL Beta HCG, Quant < 2 mIU/mL COVID-19 (VIRGILIO) (Negative) COVID-19 Clin Com Influenza Type A (VERONICA) (Negative) Influenza Type B (VERONICA) (Negative) Influenza A & B Note 10/24/22 10/24/22 10/24/22 Range/Units 15:58 15:58 15:58 WBC (4.8-10.8) X10*3/uL RBC (4.20-5.50) X10*6/uL Hgb (12.0-16.0) g/dl Hct (37.0-47.0) % MCV (80.0-98.0) fL MCH (27.0-33.0) pg MCHC (31.0-35.0) g/dl RDW (11.0-16.0) % Plt Count (160-400) X10*3/uL MPV (9.4-12.3) fL Immature Gran % (Auto) (0.0-0.4) % Neut % (Auto) (45-73) % Lymph % (Auto) (20-40) % Yates % (Auto) (2-11) % Eos % (Auto) (0-4) % Baso % (Auto) (0-2) % Lymph # (Auto) (1.2-4.9) X10*3/uL Yates # (Auto) (0.1-1.2) X10*3/uL Eos # (Auto) (0.0-0.4) X10*3/uL Baso # (Auto) (0.0-0.2) X10*3/uL Abs Immat Gran (auto) (0.00-0.03) X10*3/uL Absolute Neuts (auto) (2.0-8.3) x10*3/uL Absolute Nucleated RBC (0.0-0.012) X10*3/uL Nucleated RBC % (auto) (0.0-0.2) /100WBC PT (10.0-13.1) SEC INR (0.9-1.1) APTT (26.0-36.4) SEC Sodium (135-145) mmol/L Potassium (3.3-5.1) mmol/L Chloride (96-108) mmol/L Carbon Dioxide (22-29) mmol/L Anion Gap (12-20) BUN (9-16) mg/dL Creatinine (0.5-1.4) mg/dL Estim Creat Clear Calc Estimated GFR Random Glucose (60-115) mg/dL Calcium (8.4-10.2) mg/dL Total Bilirubin (0.0-1.0) mg/dL AST (5-31) U/L ALT (0-31) U/L Alkaline Phosphatase (39-117) U/L Troponin I High Sens < 3.5 (<3.5-17.0) ng/L B-Natriuretic Peptide < 10 (<100) pg/mL Total Protein (6.5-8.0) g/dL Albumin (3.5-5.0) g/dL Beta HCG, Quant mIU/mL COVID-19 (VIRGILIO) Negative (Negative) COVID-19 Clin Com See Note Influenza Type A (VERONICA) (Negative) Influenza Type B (VERONICA) (Negative) Influenza A & B Note 10/24/22 10/24/22 10/24/22 Range/Units 15:58 19:16 22:20 WBC (4.8-10.8) X10*3/uL RBC (4.20-5.50) X10*6/uL Hgb (12.0-16.0) g/dl Hct (37.0-47.0) % MCV (80.0-98.0) fL MCH (27.0-33.0) pg MCHC (31.0-35.0) g/dl RDW (11.0-16.0) % Plt Count (160-400) X10*3/uL MPV (9.4-12.3) fL Immature Gran % (Auto) (0.0-0.4) % Neut % (Auto) (45-73) % Lymph % (Auto) (20-40) % Yates % (Auto) (2-11) % Eos % (Auto) (0-4) % Baso % (Auto) (0-2) % Lymph # (Auto) (1.2-4.9) X10*3/uL Yates # (Auto) (0.1-1.2) X10*3/uL Eos # (Auto) (0.0-0.4) X10*3/uL Baso # (Auto) (0.0-0.2) X10*3/uL Abs Immat Gran (auto) (0.00-0.03) X10*3/uL Absolute Neuts (auto) (2.0-8.3) x10*3/uL Absolute Nucleated RBC (0.0-0.012) X10*3/uL Nucleated RBC % (auto) (0.0-0.2) /100WBC PT (10.0-13.1) SEC INR (0.9-1.1) APTT (26.0-36.4) SEC Sodium (135-145) mmol/L Potassium (3.3-5.1) mmol/L Chloride (96-108) mmol/L Carbon Dioxide (22-29) mmol/L Anion Gap (12-20) BUN (9-16) mg/dL Creatinine (0.5-1.4) mg/dL Estim Creat Clear Calc Estimated GFR Random Glucose (60-115) mg/dL Calcium (8.4-10.2) mg/dL Total Bilirubin (0.0-1.0) mg/dL AST (5-31) U/L ALT (0-31) U/L Alkaline Phosphatase (39-117) U/L Troponin I High Sens 5.6 D 21.5 H D (<3.5-17.0) ng/L B-Natriuretic Peptide (<100) pg/mL Total Protein (6.5-8.0) g/dL Albumin (3.5-5.0) g/dL Beta HCG, Quant mIU/mL COVID-19 (VIRGILIO) (Negative) COVID-19 Clin Com Influenza Type A (VERONICA) Negative (Negative) Influenza Type B (VERONICA) Negative (Negative) Influenza A & B Note See Note <Neelima Peter, MANAGER CUSTOMER - Last Filed: 10/24/22 15:48> Lab Results 10/24/22 10/24/22 10/24/22 Range/Units 15:58 15:58 15:58 WBC 13.1 H (4.8-10.8) X10*3/uL RBC 4.21 (4.20-5.50) X10*6/uL Hgb 13.0 (12.0-16.0) g/dl Hct 39.7 (37.0-47.0) % MCV 94.3 (80.0-98.0) fL MCH 30.9 (27.0-33.0) pg MCHC 32.7 (31.0-35.0) g/dl RDW 13.9 (11.0-16.0) % Plt Count 359 (160-400) X10*3/uL MPV 9.7 (9.4-12.3) fL Immature Gran % (Auto) 1.0 H (0.0-0.4) % Neut % (Auto) 51.0 (45-73) % Lymph % (Auto) 35.9 (20-40) % Yates % (Auto) 8.0 (2-11) % Eos % (Auto) 3.6 (0-4) % Baso % (Auto) 0.5 (0-2) % Lymph # (Auto) 4.7 (1.2-4.9) X10*3/uL Yates # (Auto) 1.1 (0.1-1.2) X10*3/uL Eos # (Auto) 0.5 H (0.0-0.4) X10*3/uL Baso # (Auto) 0.1 (0.0-0.2) X10*3/uL Abs Immat Gran (auto) 0.13 H (0.00-0.03) X10*3/uL Absolute Neuts (auto) 6.7 (2.0-8.3) x10*3/uL Absolute Nucleated RBC 0.000 (0.0-0.012) X10*3/uL Nucleated RBC % (auto) 0.0 (0.0-0.2) /100WBC PT 11.1 (10.0-13.1) SEC INR 1.0 (0.9-1.1) APTT 38.1 H (26.0-36.4) SEC Sodium 140 (135-145) mmol/L Potassium 4.1 (3.3-5.1) mmol/L Chloride 106 (96-108) mmol/L Carbon Dioxide 26 (22-29) mmol/L Anion Gap 12 (12-20) BUN 9 (9-16) mg/dL Creatinine 0.87 (0.5-1.4) mg/dL Estim Creat Clear Calc 126.3 Estimated GFR > 60 Random Glucose 86 (60-115) mg/dL Calcium 8.7 (8.4-10.2) mg/dL Total Bilirubin 0.2 (0.0-1.0) mg/dL AST 15 (5-31) U/L ALT 15 (0-31) U/L Alkaline Phosphatase 76 (39-117) U/L Troponin I High Sens (<3.5-17.0) ng/L B-Natriuretic Peptide (<100) pg/mL Total Protein 6.8 (6.5-8.0) g/dL Albumin 3.5 (3.5-5.0) g/dL Beta HCG, Quant < 2 mIU/mL COVID-19 (VIRGILIO) (Negative) COVID-19 Clin Com Influenza Type A (VERONICA) (Negative) Influenza Type B (VERONICA) (Negative) Influenza A & B Note 10/24/22 10/24/22 10/24/22 Range/Units 15:58 15:58 15:58 WBC (4.8-10.8) X10*3/uL RBC (4.20-5.50) X10*6/uL Hgb (12.0-16.0) g/dl Hct (37.0-47.0) % MCV (80.0-98.0) fL MCH (27.0-33.0) pg MCHC (31.0-35.0) g/dl RDW (11.0-16.0) % Plt Count (160-400) X10*3/uL MPV (9.4-12.3) fL Immature Gran % (Auto) (0.0-0.4) % Neut % (Auto) (45-73) % Lymph % (Auto) (20-40) % Yates % (Auto) (2-11) % Eos % (Auto) (0-4) % Baso % (Auto) (0-2) % Lymph # (Auto) (1.2-4.9) X10*3/uL Yates # (Auto) (0.1-1.2) X10*3/uL Eos # (Auto) (0.0-0.4) X10*3/uL Baso # (Auto) (0.0-0.2) X10*3/uL Abs Immat Gran (auto) (0.00-0.03) X10*3/uL Absolute Neuts (auto) (2.0-8.3) x10*3/uL Absolute Nucleated RBC (0.0-0.012) X10*3/uL Nucleated RBC % (auto) (0.0-0.2) /100WBC PT (10.0-13.1) SEC INR (0.9-1.1) APTT (26.0-36.4) SEC Sodium (135-145) mmol/L Potassium (3.3-5.1) mmol/L Chloride (96-108) mmol/L Carbon Dioxide (22-29) mmol/L Anion Gap (12-20) BUN (9-16) mg/dL Creatinine (0.5-1.4) mg/dL Estim Creat Clear Calc Estimated GFR Random Glucose (60-115) mg/dL Calcium (8.4-10.2) mg/dL Total Bilirubin (0.0-1.0) mg/dL AST (5-31) U/L ALT (0-31) U/L Alkaline Phosphatase (39-117) U/L Troponin I High Sens < 3.5 (<3.5-17.0) ng/L B-Natriuretic Peptide < 10 (<100) pg/mL Total Protein (6.5-8.0) g/dL Albumin (3.5-5.0) g/dL Beta HCG, Quant mIU/mL COVID-19 (VIRGILIO) Negative (Negative) COVID-19 Clin Com See Note Influenza Type A (VERONICA) (Negative) Influenza Type B (VERONICA) (Negative) Influenza A & B Note 10/24/22 10/24/22 10/24/22 Range/Units 15:58 19:16 22:20 WBC (4.8-10.8) X10*3/uL RBC (4.20-5.50) X10*6/uL Hgb (12.0-16.0) g/dl Hct (37.0-47.0) % MCV (80.0-98.0) fL MCH (27.0-33.0) pg MCHC (31.0-35.0) g/dl RDW (11.0-16.0) % Plt Count (160-400) X10*3/uL MPV (9.4-12.3) fL Immature Gran % (Auto) (0.0-0.4) % Neut % (Auto) (45-73) % Lymph % (Auto) (20-40) % Yates % (Auto) (2-11) % Eos % (Auto) (0-4) % Baso % (Auto) (0-2) % Lymph # (Auto) (1.2-4.9) X10*3/uL Yates # (Auto) (0.1-1.2) X10*3/uL Eos # (Auto) (0.0-0.4) X10*3/uL Baso # (Auto) (0.0-0.2) X10*3/uL Abs Immat Gran (auto) (0.00-0.03) X10*3/uL Absolute Neuts (auto) (2.0-8.3) x10*3/uL Absolute Nucleated RBC (0.0-0.012) X10*3/uL Nucleated RBC % (auto) (0.0-0.2) /100WBC PT (10.0-13.1) SEC INR (0.9-1.1) APTT (26.0-36.4) SEC Sodium (135-145) mmol/L Potassium (3.3-5.1) mmol/L Chloride (96-108) mmol/L Carbon Dioxide (22-29) mmol/L Anion Gap (12-20) BUN (9-16) mg/dL Creatinine (0.5-1.4) mg/dL Estim Creat Clear Calc Estimated GFR Random Glucose (60-115) mg/dL Calcium (8.4-10.2) mg/dL Total Bilirubin (0.0-1.0) mg/dL AST (5-31) U/L ALT (0-31) U/L Alkaline Phosphatase (39-117) U/L Troponin I High Sens 5.6 D 21.5 H D (<3.5-17.0) ng/L B-Natriuretic Peptide (<100) pg/mL Total Protein (6.5-8.0) g/dL Albumin (3.5-5.0) g/dL Beta HCG, Quant mIU/mL COVID-19 (VIRGILIO) (Negative) COVID-19 Clin Com Influenza Type A (VERONICA) Negative (Negative) Influenza Type B (VERONICA) Negative (Negative) Influenza A & B Note See Note <Armani Woodruff MD - Last Filed: 10/25/22 01:34> Independent Interpretation I performed an independent interpretation of an: EKG <Armani Woodruff MD - Last Filed: 10/25/22 01:34> Interpretation: Normal sinus rhythm heart rate 78 beats per minute normal intervals normal axis no acute ST changes no acute ischemia impression normal EKG <Armani Woodruff MD - Last Filed: 10/25/22 01:34> Critical Care Time Critical Care Time Critical Care Time: Yes <Armani Woodruff MD - Last Filed: 10/25/22 01:34> Total Critical Care Time: 55 <Armani Woodruff MD - Last Filed: 10/25/22 01:34> Attestation: The patient was critically ill with a high probability of imminent or life threatening deterioration. I spent greater than 60 minutes of discontinuous time evaluating the patient,delivering critical care at the bedside, discussing and evaluating pertinent data with consultants. Critical care time does not include time spent performing separately billable procedures or teaching. Total time spent performing critical care was 55 minutes. <Armani Woodruff MD - Last Filed: 10/25/22 01:34> Discharge Plan Discharge Clinical Impression: Non-STEMI (non-ST elevated myocardial infarction) <Neelima Peter CNP - Last Filed: 10/24/22 15:48> Patient Disposition: Admitted As Inpatient <Neelima Peter CNP - Last Filed: 10/24/22 15:48>
--- NOTE | 2022-10-24 15:45 | ECG_ITS ---
Test Reason : CHEST PAIN Blood Pressure : / mmHG Vent. Rate : 078 BPM Atrial Rate : 078 BPM P-R Int : 182 ms QRS Dur : 078 ms QT Int : 380 ms P-R-T Axes : 059 043 027 degrees QTc Int : 433 ms Normal sinus rhythm Normal ECG When compared with ECG of 22-MAY-2022 01:31, T wave inversion no longer evident in Anterior leads Referred By: Neelima Peter Electronically Signed By:NEIL MCKNIGHT
[2022-10-24 16:13] LABS: MANUAL DIFF FLAG NO
[2022-10-24 16:27] LABS: Prothrombin Time 11.1 SEC (10.0-13.1)
[2022-10-24 16:32] LABS: Basophils Absolute Auto 0.1 X10*3/uL (0.0-0.2); Basophils Percent Auto 0.5 % (0-2); Eosinophils Absolute Auto 0.5 X10*3/uL (0.0-0.4); Eosinophils Percent Auto 3.6 % (0-4); Hematocrit 39.7 % (37.0-47.0); Imm Gran Abs Auto 0.13 X10*3/uL (0.00-0.03); Lymphocytes Absolute Auto 4.7 X10*3/uL (1.2-4.9); Lymphocytes Percent Auto 35.9 % (20-40); Mean Corpuscular HGB Conc 32.7 g/dl (31.0-35.0); Mean Corpuscular Hemoglobin 30.9 pg (27.0-33.0); Mean Corpuscular Volume 94.3 fL (80.0-98.0); Mean Platelet Volume 9.7 fL (9.4-12.3); Monocytes Absolute Auto 1.1 X10*3/uL (0.1-1.2); Neutrophils Absolute Auto 6.7 x10*3/uL (2.0-8.3); Platelet Count 359 X10*3/uL (160-400); Red Blood Count 4.21 X10*6/uL (4.20-5.50); Red Cell Distribution Width 13.9 % (11.0-16.0); White Blood Count 13.1 X10*3/uL (4.8-10.8)
[2022-10-24 16:38] LABS: B Type Natriuretic Peptide < 10 pg/mL (<100)
[2022-10-24 16:41] LABS: Alanine Aminotransferase 15 U/L (0-31); Albumin Level 3.5 g/dL (3.5-5.0); Alkaline Phosphatase 76 U/L (39-117); Anion Gap 12 (12-20); Aspartate Amino Transferase 15 U/L (5-31); Bilirubin Total 0.2 mg/dL (0.0-1.0); Blood Urea Nitrogen 9 mg/dL (9-16); Calcium 8.7 mg/dL (8.4-10.2); Carbon Dioxide 26 mmol/L (22-29); Chloride 106 mmol/L (96-108); Creatinine Clr Calc Pharmacy 126.3; Estimated Glomerular Filt Rate > 60; Glucose Random 86 mg/dL (60-115); Potassium 4.1 mmol/L (3.3-5.1); Sodium 140 mmol/L (135-145); Total Protein 6.8 g/dL (6.5-8.0)
[2022-10-24 16:43] LABS: COVID-19 Test Negative (Negative); IDNOW Serial# 16C4AD1C
[2022-10-24 16:45] LABS: IDNOW Serial# BCCEAD1C; Troponin-I High Sensitivity < 3.5 ng/L (<3.5-17.0)
[2022-10-24 16:46] LABS: Influenza A Negative (Negative); Influenza B2 Negative (Negative)
[2022-10-24 16:53] LABS: HCG Quantitative < 2 mIU/mL
[2022-10-24 19:46] LABS: Troponin-I High Sensitivity 5.6 ng/L (<3.5-17.0)
[2022-10-24 20:36] VITALS: BP 152/88; PULSE 69; RESP 20; TEMP 36.6; O2SAT 99
--- NOTE | 2022-10-24 20:57 | PC.NURSE ---
Pt presents to the ED for evaluation of chest pain that started around 2pm. Hx of TN 6 months with stent placement.
[2022-10-24 22:27] VITALS: BP 157/88; PULSE 73; RESP 17; TEMP 36.8; O2SAT 97
[2022-10-24 22:48] LABS: Troponin-I High Sensitivity 21.5 ng/L (<3.5-17.0)
--- NOTE | 2022-10-24 23:42 | P.HPHOSP_ITS ---
History of Present Illness Date of Service: 10/24/22 Chief Complaint: chest pain 47-year-old female with a past medical history of hypertension, hyperlipidemia, diabetes, CAD status post stent about 6 months;-on aspirin, Brilinta, anxiety, depression; presented to the hospital today with a chief complaint of chest pain. Patient mentioned that today she had chest pain located on the left side of the chest, radiating to the left arm, assist with nausea; denies any shortness of breath, denies any diaphoresis. Symptoms persisted until she came to the ER. Denies any chest pain at the time of my interview. Denies any fever chills cough or sputum production. Denies any recent travel or sick contacts. Reports he has been taking her home medications Denies any numbness tingling or focal weakness, denies any falls. Patient denies any signs of bleeding Review of all other systems is negative except mentioned above ER course: Per ER team, patient chest pain improved after she came to the ER; initial troponin was 3.5 follow post like 0.6 and then increase to 21.5; discussed with Cardiology Dr. Noyola who suggested anticoagulation; started on heparin drip. admitted to the telemetry. EKG was nonischemic. Admitted to the hospital for further management [facility] Medical History Asthma CAD (coronary artery disease) Chronic pain Depression Fatty liver Frequent UTI HTN (hypertension) Hyperlipidemia Kidney stone Leukocytosis Mass of throat Migraine Non-ST elevation NC (NSTEMI) Obesity YAMILETH on CPAP PTSD (post-traumatic stress disorder) Smoker Subsequent non-ST elevation myocardial infarction (NSTEMI) within 4 weeks of initial infarction Family History Father Hypertension Mother Hypertension Osteoporosis Hx of bilateral cataract extraction Paternal Grandmother Diabetes Sister Asthma Maternal Uncle Throat cancer Maternal Aunt Ovarian cancer Breast cancer Surgical History H/O: hysterectomy History of breast lump/mass excision History of endometrial ablation History of heart artery stent History of lithotripsy History of lumpectomy of left breast (10/22/21) History of tonsillectomy Hx of colonoscopy Stented coronary artery Social History Household Members: Family Housing: Apartment Are you a primary healthcare representative to a significant other at home: No Do you presently have visiting nurse or other home services: No Alcohol intake: never Patient Tobacco Use Status: Current everyday Tobacco user Tobacco use type: Cigarette Cigarette Packs Per Day: 1 Cigarettes Per Day: 20.0 Years Smoked: 27 Advance Directives: No Advance Directives Information Provided: Yes Patient : No service: No Current occupational status: unemployed Meds Allergies Allergy/AdvReac Type Severity Reaction Status Date / Time penicillin G [PENICILLIN G] Allergy Severe DIFFICULTY Verified 10/23/22 08:53 BREATHING Active Medications: Current Medications Acetaminophen (Acetaminophen 325 Mg Tablet) 650 mg PO Q6H PRN PRN Reason: Pain, Mild (Pain Scale 1-3) Aspirin (Aspirin 81 Mg Tab.Chew) 81 mg PO DAILY [facility] Atorvastatin Calcium (Atorvastatin Calcium 80 Mg Tablet) 80 mg PO BEDTIME [facility] Glucose (Glucose Gel 15 Gm Gel..Gram.) 15 gm PO Q15M PRN; Protocol PRN Reason: per Hypoglycemia Standing Ord. Heparin Sodium (Porcine) (Heparin Sodium,Porcine 5,000 Unit/Ml Vial) 5,000 unit SUBCUT Q8H [facility] Dextrose (D10) 250 mls @ 750 mls/hr IV Q15M PRN; Protocol PRN Reason: per Hypoglycemia Standing Ord. Insulin Human Lispro (Insulin Lispro 100 Unit/Ml 3 Ml Vial) 0 unit SUBCUT QIDACHS [facility]; Protocol Melatonin (Melatonin 3 Mg Tablet) 6 mg PO BEDTIME PRN PRN Reason: Insomnia Metoprolol Succinate (Metoprolol Succinate Er 50 Mg Tab.Er.24h) 50 mg PO DAILY [facility]; Protocol Senna (Sennosides 8.6 Mg Tablet) 17.2 mg PO BEDTIME PRN PRN Reason: Constipation Sodium Chloride (0.9 % Sodium Chloride Flush 3 Ml Syringe) 3 ml IVFLUSH QSHIFT [facility] Home Medications Medication Instructions Recorded Confirmed Last Taken Type baclofen 10 mg tablet 10 mg PO TID PRN muscle spasm 11/03/20 10/23/22 Unknown History albuterol sulfate 90 mcg/actuation 2 puff PO Q4-6H PRN Wheezing 12/01/20 10/23/22 Unknown History aerosol inhaler (Ventolin HFA) atorvastatin 80 mg tablet (Lipitor) 80 mg PO BEDTIME 12/01/20 10/23/22 05/20/22 History fluticasone propionate 50 2 spray intranasal DAILY 12/01/20 10/23/22 05/21/22 Hi story mcg/actuation nasal spray,suspension blood pressure test kit-large #1 ea 12/19/20 10/23/22 Unknown History topiramate 50 mg tablet 50 mg PO BID 12/19/20 10/23/22 Unknown History cholecalciferol (vitamin D3) 50 50 mcg PO DAILY 03/13/22 10/23/22 05/21/22 History mcg (2,000 unit) capsule mirtazapine 7.5 mg tablet 7.5 mg PO BEDTIME 06/17/22 10/23/22 Unknown History aspirin 81 mg tablet,delayed 81 mg PO DAILY 07/01/22 10/23/22 Unknown History release lisinopril 30 mg tablet 30 mg PO DAILY 07/01/22 10/23/22 Unknown History metformin 500 mg tablet,extended 500 mg PO QPM 07/01/22 10/23/22 Unknown History release 24 hr metoprolol succinate 50 mg 50 mg PO DAILY 07/01/22 10/23/22 Unknown History tablet,extended release 24 hr omeprazole 20 mg capsule,delayed 20 mg PO DAILY 07/01/22 10/23/22 Unknown History release ticagrelor 90 mg tablet (Brilinta) 90 mg PO BID 07/02/22 10/23/22 Unknown History tramadol 50 mg tablet 50 mg PO Q8H PRN severe pain 10/24/22 10/23/22 Unknown History Physical Exam Vital Signs and Narrative: Vital Signs: Last Vital Signs Temp 98.2 F 10/24/22 22:27 Pulse 73 10/24/22 22:27 Resp 17 10/24/22 22:27 BP 157/88 H 10/24/22 22:27 Pulse Ox 97 10/24/22 22:27 O2 Del Method 10/24/22 22:27 BMI result Body Mass Index 56.5 Results Labs 10/24/22 15:58 10/24/22 15:58 Labs: Laboratory Results - last 24 hr 10/24/22 10/24/22 10/24/22 15:58 15:58 15:58 MCV 94.3 MCH 30.9 MCHC 32.7 RDW 13.9 Plt Count 359 MPV 9.7 Immature Gran % (Auto) 1.0 H Neut % (Auto) 51.0 Lymph % (Auto) 35.9 Cross % (Auto) 8.0 Eos % (Auto) 3.6 Baso % (Auto) 0.5 Lymph # (Auto) 4.7 Cross # (Auto) 1.1 Eos # (Auto) 0.5 H Baso # (Auto) 0.1 Abs Immat Gran (auto) 0.13 H Absolute Neuts (auto) 6.7 Absolute Nucleated RBC 0.000 Nucleated RBC % (auto) 0.0 PT 11.1 INR 1.0 Anion Gap 12 Estim Creat Clear Calc 126.3 Estimated GFR > 60 Random Glucose 86 Calcium 8.7 Total Bilirubin 0.2 AST 15 ALT 15 Alkaline Phosphatase 76 Troponin I High Sens B-Natriuretic Peptide Total Protein 6.8 Albumin 3.5 Beta HCG, Quant < 2 COVID-19 (VIRGILIO) COVID-19 Clin Com Influenza Type A (VERONICA) Influenza Type B (VERONICA) Influenza A & B Note 10/24/22 10/24/22 10/24/22 15:58 15:58 15:58 MCV MCH MCHC RDW Plt Count MPV Immature Gran % (Auto) Neut % (Auto) Lymph % (Auto) Cross % (Auto) Eos % (Auto) Baso % (Auto) Lymph # (Auto) Cross # (Auto) Eos # (Auto) Baso # (Auto) Abs Immat Gran (auto) Absolute Neuts (auto) Absolute Nucleated RBC Nucleated RBC % (auto) PT INR Anion Gap Estim Creat Clear Calc Estimated GFR Random Glucose Calcium Total Bilirubin AST ALT Alkaline Phosphatase Troponin I High Sens < 3.5 B-Natriuretic Peptide < 10 Total Protein Albumin Beta HCG, Quant COVID-19 (VIRGILIO) Negative COVID-19 Clin Com See Note Influenza Type A (VERONICA) Influenza Type B (VERONICA) Influenza A & B Note 10/24/22 10/24/22 10/24/22 15:58 19:16 22:20 MCV MCH MCHC RDW Plt Count MPV Immature Gran % (Auto) Neut % (Auto) Lymph % (Auto) Cross % (Auto) Eos % (Auto) Baso % (Auto) Lymph # (Auto) Cross # (Auto) Eos # (Auto) Baso # (Auto) Abs Immat Gran (auto) Absolute Neuts (auto) Absolute Nucleated RBC Nucleated RBC % (auto) PT INR Anion Gap Estim Creat Clear Calc Estimated GFR Random Glucose Calcium Total Bilirubin AST ALT Alkaline Phosphatase Troponin I High Sens 5.6 D 21.5 H D B-Natriuretic Peptide Total Protein Albumin Beta HCG, Quant COVID-19 (VIRGILIO) COVID-19 Clin Com Influenza Type A (VERONICA) Negative Influenza Type B (VERONICA) Negative Influenza A & B Note See Note Imaging Radiologist's Impressions: Impressions Chest X-Ray 10/24/22 16:19 IMPRESSION: Unremarkable examination. Assessment and Plan (1) CAD (coronary artery disease): Status: Acute (2) Diabetes mellitus: Status: Acute Plan 47-year-old female with a past medical history of hypertension, hyperlipidemia, diabetes, CAD status post stent about 6 months;-on aspirin, Brilinta, anxiety, depression; presented to the hospital today with a chief complaint of chest pain. Chest pain: Typical in nature. Currently chest pain resolved. Patient has known history of CAD status post PCI about 6 months ago-currently on aspirin, Brilinta EKG nonischemic. Troponin <3.5--> 5.6--> 21.5 Cardiology was notified-suggested anticoagulation; patient was started on heparin drip in the ER Telemetry Sublingual nitroglycerin p.r.n. Continue home aspirin, Brilinta, metoprolol, sta a tin Chronic medical conditions: Stable History HTN/HLD: Continue home metoprolol, statin. Lisinopril on hold for now to be resumed as needed. History of chronic pain syndrome: Continue home tramadol p.r.n. History of depression: Continue home mirtazapine History of GERD: Continue home Prilosec History of diabetes: Hold home metformin. Insulin sliding scale DVT prophylaxis: Patient on Lovenox Code status: Full code Time Spent With Patient Time: Total time managing care of this patient today ____ minutes. Quality Stroke Does the patient have a stroke diagnosis?: No VTE Prior VTE?: No VTE Risk Level:: Medical - moderate - high VTE Device Contraindication: Treatment Not Indicated VTE Drug Contraindication: N/A - Med Ordered
[2022-10-24 23:46] LABS: Partial Thromboplastin Time 38.1 SEC (26.0-36.4)
[2022-10-25] VITALS (7 sets, daily range): BP systolic 108–163; BP diastolic 64–81; PULSE 57–71; RESP 16–26; TEMP 36.2–36.9; O2SAT 95–98; BMI 63.0
[2022-10-25 00:22] LABS: Hematocrit 37.1 % (37.0-47.0); Hemoglobin 12.3 g/dl (12.0-16.0); Mean Corpuscular HGB Conc 33.2 g/dl (31.0-35.0); Mean Corpuscular Hemoglobin 30.8 pg (27.0-33.0); Mean Corpuscular Volume 92.8 fL (80.0-98.0); Mean Platelet Volume 9.4 fL (9.4-12.3); Platelet Count 329 X10*3/uL (160-400); Red Cell Distribution Width 13.9 % (11.0-16.0); White Blood Count 13.2 X10*3/uL (4.8-10.8)
[2022-10-25] MEDS: Heparin Sodium,Porcine/1/2NS 25,000 UNIT/250 ML IV.SOLN 10 UNIT IVCONT (01:02)
[2022-10-25] MEDS: Heparin Sodium,Porcine 5,000 UNIT/ML VIAL 5000 UNIT IVPUSH (01:05)
[2022-10-25] MEDS: Nitroglycerin 2 % Oint 1 GM Packet 1 INCH TRANSDERMA (01:06)
[2022-10-25] MEDS: 0.9 % Sodium Chloride Flush 3 ML SYRINGE IVFLUSH ×3 (01:08→20:21)
--- NOTE | 2022-10-25 01:13 | PC.NURSE ---
Report to Alma HORTA in [facility] [place].
[2022-10-25 06:57] LABS: PTT Heparin Drip 48.7 SEC (53-77.9)
--- NOTE | 2022-10-25 07:00 | CA_ITS ---
Transthoracic Echocardiogram Patient (Last, First, Middle): Blaire Glass, Gender: Female Date of : 1975 Age: 47 Procedure Date: 10/25/2022 Procedure Type: Transthoracic Echocardiogram [place] [facility] [place]: 198.12 cm Weight: 176.9 kg BSA: 3.00 m2 Heart Rate: bpm BP: 146 / [address] Specialist: Referring MD: Abraham Jones MD Symptoms: nstemi Study Quality: Adequate w Definity ECG Rhythm: Sinus Conclusions: - The left ventricular systolic function is normal. The calculated ejection fraction is 68% by biplane method. - There is moderately increased left ventricular wall thickness. - No obvious valvular pathology seen on this study. Findings Procedure Information Contrast agent, definity, is being given per protocol without apparent complications. Left Ventricle Normal left ventricular cavity size. There is moderately increased left ventricular wall thickness. The left ventricular systolic function is normal. The calculated ejection fraction is 68% by biplane method. There is no evidence of regional wall motion abnormalities. Diastolic function is normal for age. Right Ventricle Normal right ventricular cavity size and systolic function. Atria Both atria are normal in size. Aortic Valve There is mild calcification of the aortic valve. There is no aortic valve stenosis. There is no aortic valve regurgitation. Mitral Valve The mitral valve appears normal. There is no mitral valve regurgitation. There is no mitral valve stenosis. Pulmonic Valve The pulmonic valve is likely normal. Tricuspid Valve Normal tricuspid valve structure. There is trace tricuspid valve regurgitation. There is no evidence of pulmonary hypertension. Great Vessels The aortic annulus and sinuses of valsalva are normal in size. Venous The inferior vena cava is normal in size and collapses greater than 50% with inspiration. Pericardium/Pleural There is no evidence of pericardial effusion. Prior Study Comparison No prior study available for comparison. Recommendations, Care & Conclusions No obvious valvular pathology seen on this study. Measurements 2D Linear Measurements IVSd: 1.34 0.6-0.9/0.6-1.0 cm LVIDd: 5.02 3.9-5.3/4.2-5.9 cm LVIDd Index: 1.67 2.4-3.2/2.2-3.1 cm/m2 LVIDs: 3.19 2.0-3.6 cm LVPWd: 1.38 0.7-1.1 cm Ao Root: 2.90 2.1-3.5 cm LA Diam: 3.90 2.7-3.8/3.0-4.0 cm LAIDs Index: 1.30 1.5-2.3 cm/m2 LV Mass: 350.67 67-162/88-224 g LV Mass Index: 116.89 43-95/49-115 g/m2 LVOT Diam: 2.00 3.0+(-)1.3 cm 2D Systolic Function EF 4C: 65.60 >55% EF 2C: 67.90 >55% EF BiP: 67.80 >55% Mitral Valve MV Pk E: 0.85 MV PK A: 0.57 MV Decel Time: 193.00 E/A: 1.50 E'Lateral: 11.50 E'Medial: 8.49 E/E' Med: 10.00 E/E' Lat: 7.40 PHT: 57.00 MVA PHT: 3.86 Decel [place]: 4.42 Aortic Valve AoV Pk Zane: 2.16 AoV Mn Zane: 1.54 AoV VTI: 0.53 AoV Pk Grad: 19.00 Aov Mn Grad: 11.00 JULIUS Cont.VTI: 1.78 LVOT LVOT Pk Zane: 1.26 LVOT Mn Zane: 0.83 LVOT VTI: 0.30 LVOT Pk Grad: 6.00 LVOT Mn Grad: 4.00 LVOT Diam: 2.00 LVOT Area: 3.14 Diastolic Function MV Pk E: 0.85 MV Pk A: 0.57 E/A: 1.50 E'Medial: 8.49 E/E' Med: 10.00 E' Laterial: 11.50 E/E' Lat: 7.40 Right Ventricle TAPSE (mm): 29.00 TVS' Zane: 10.00 Tricuspid Valve TR Pk Zane: 2.38 TR Pk Grad: 23.00 RA Press: 3.00 RVSP: 26.00 Great Vessels Aorta Ao Root-2D: 2.90 2.0-3.7 cm Ao Asc: 3.30 2.1-3.4 cm Pulmonary Valve PV Pk Zane: 1.26 Peak PV Grad: 6.00 Updated in Other Vendor System with Status of Final Hakan Noyola MD electronically signed on 10/26/2022 10:52:54 AM with status of Final
[2022-10-25 07:30] LABS: Alanine Aminotransferase 13 U/L (0-31); Albumin Level 3.3 g/dL (3.5-5.0); Alkaline Phosphatase 74 U/L (39-117); Anion Gap 11 (12-20); Aspartate Amino Transferase 14 U/L (5-31); Bilirubin Total 0.4 mg/dL (0.0-1.0); Blood Urea Nitrogen 13 mg/dL (9-16); Calcium 8.7 mg/dL (8.4-10.2); Carbon Dioxide 22 mmol/L (22-29); Chloride 109 mmol/L (96-108); Creatinine Clr Calc Pharmacy 138.9; Estimated Glomerular Filt Rate > 60; Glucose Random 102 mg/dL (60-115); Potassium 4.2 mmol/L (3.3-5.1); Sodium 138 mmol/L (135-145); Total Protein 6.3 g/dL (6.5-8.0)
[2022-10-25 07:42] LABS: Glucose, Whole Blood 100 mg/dL (60-115)
--- NOTE | 2022-10-25 08:21 | PHA.MEDREC ---
Pharmacy Consult ? Medication Reconciliation Pharmacy has completed the medication reconciliation.
[2022-10-25] MEDS: Metoprolol Succinate ER 50 MG TAB.ER.24H PO (08:38)
[2022-10-25] MEDS: Aspirin 81 MG TAB.CHEW PO (08:38)
[2022-10-25] MEDS: Topiramate 25 MG TABLET 50 MG PO ×2 (08:38→20:21)
[2022-10-25] MEDS: Heparin Sodium,Porcine 5,000 UNIT/ML VIAL 7100 UNIT IVPUSH (08:53)
--- NOTE | 2022-10-25 08:55 | PC.NURSE ---
PTT came back low at 48.7. Per protocol, pt given IV bolus of 7100 units based on 40units per kg. Doserate of heparin gtt increased from 5.65 to 7.65 per protocol. Next PTT draw scheduled for 14:47
--- NOTE | 2022-10-25 10:42 | P.CONCA_ITS ---
History of Present Illness History of Present Illness Date of Service: 10/25/22 Chief complaint: Chest pain Narrative: This is a cardiology consultation regarding chest pain. In May 2022, she underwent PCI to proximal LAD. At that time, it is mention that she has aspirin allergy. It seems that she might have undergone aspirin desensitization and then put on aspirin. Patient states that she was doing okay but yesterday, she was cooking at that time developed a chest discomfort like a pressure/burning in the upper chest. That radiated to the left shoulder and left arm. Also has had some nausea. Describes like angina. Within seen in the emergency room and had a slight troponin leak and she was eventually admitted. Today, she states that she is feeling okay. No further chest pain. On heparin drip for NSTEMI. Review of Systems Review of Systems: Yes all other systems are reviewed and are negative Constitutional: Constitutional: Reports as per HPI and Reports no additional constitutional complaints Eyes: Eyes: Reports as per HPI and Denies no additional eye complaints ENT: Denies system reviewed and no additional complaints, except as documented and Reports as per HPI Cardiovascular: Cardiovascular: Reports as per HPI, Reports no additional cardiovascular complaints, Denies acrocyanosis, Denies cool extremities, Reports chest pain, Denies leg edema, Denies lightheadedness, Denies palpitations and Denies dyspnea Respiratory: Respiratory: Reports as per HPI, Denies no additional respiratory complaints and Denies dyspnea Gastrointestinal: Gastrointestinal: Reports as per HPI and Denies no additional gastrointestinal complaints Genitourinary: Genitourinary: Reports as per HPI Musculoskeletal: Musculoskeletal: Reports no additional musculoskeletal complaints and Reports as per HPI Integumentary/Breasts: Skin/Breast: Reports system reviewed and no additional complaints, except as docu Neurologic: Reports system reviewed and no additional complaints, except as documented and Reports as per HPI Psychiatric: Psychiatric: Reports no additional psychiatric complaints and Reports as per HPI Endocrine: Endocrine: Reports no additional endocrine complaints, Reports as per HPI and Denies palpitations Hematologic/Lymphatic: Hematologic/Lymphatic: Reports no additional hematologic/lymphatic complaints and Reports as per HPI Allergic/Immunologic: Allergic/Immunologic: Reports no additional allergic/immunologic complaints and Reports as per HPI [facility] Past Medical History Medical History Asthma CAD (coronary artery disease) Chronic pain Depression Fatty liver Frequent UTI HTN (hypertension) Hyperlipidemia Kidney stone Leukocytosis Mass of throat Migraine Non-ST elevation NE (NSTEMI) Obesity YAMILETH on CPAP PTSD (post-traumatic stress disorder) Smoker Subsequent non-ST elevation myocardial infarction (NSTEMI) within 4 weeks of initial infarction Family History Family History Father Hypertension Mother Hypertension Osteoporosis Hx of bilateral cataract extraction Paternal Grandmother Diabetes Sister Asthma Maternal Uncle Throat cancer Maternal Aunt Ovarian cancer Breast cancer Surgical History Surgical History H/O: hysterectomy History of breast lump/mass excision History of endometrial ablation History of heart artery stent History of lithotripsy History of lumpectomy of left breast (10/22/21) History of tonsillectomy Hx of colonoscopy Stented coronary artery Social History Social History Household Members: Children Housing: Apartment Are you a primary skin care technician to a significant other at home: No Do you presently have visiting nurse or other home services: Yes (daughter is her manager enrollment) Alcohol intake: never Patient Tobacco Use Status: Current everyday Tobacco user Tobacco use type: Cigarette Cigarette Packs Per Day: 0.5 Cigarettes Per Day: 10.0 Years Smoked: 35 Smoked in Last 30 Days: Yes Patient Interested in Nicotine Replacement: No Patient Given Instructions on How to Stop Smoking: No Second Hand Smoke Exposure: No Use of substances other than those prescribed or required for medical reasons: No Have you been hit, kicked, punched, or otherwise hurt by someone within the past year? If so, by whom?: No Do you feel safe in your current relationship?: Yes Is there a partner from a previous relationship who is making you feel unsafe now?: No Are you made to feel afraid or neglected: No Advance Directives: No Advance Directives Information Provided: Yes Do you have thoughts of harming others: None Do you have a plan to hurt others: No Plan Recently lost weight without trying: No Eating poorly because of decreased appetite: No Nutrition Risks: No Nutritional Risk Patient : No : No Poor oral hygiene: No service: No Current occupational status: unemployed Meds Allergies Allergy/AdvReac Type Severity Reaction Status Date / Time penicillin G [PENICILLIN G] Allergy Severe DIFFICULTY Verified 10/23/22 08:53 BREATHING Active Medications: Current Medications Acetaminophen (Acetaminophen 325 Mg Tablet) 650 mg PO Q6H PRN PRN Reason: Pain, Mild (Pain Scale 1-3) Aspirin (Aspirin 81 Mg Tab.Chew) 81 mg PO DAILY [facility] Last Admin: 10/25/22 08:38 Dose: 81 mg Atorvastatin Calcium (Atorvastatin Calcium 80 Mg Tablet) 80 mg PO BEDTIME ANDREW Baclofen (Baclofen 10 Mg Tablet) 10 mg PO TID PRN PRN Reason: spasm Glucose (Glucose Gel 15 Gm Gel..Gram.) 15 gm PO Q15M PRN; Protocol PRN Reason: per Hypoglycemia Standing Ord. Heparin Sodium (Porcine) (Heparin Sodium,Porcine 5,000 Unit/Ml Vial) 7,100 unit IVPUSH PROTOCOL BOLUS PRN; Protocol PRN Reason: 40 unit/kg - Heparin Protocol Last Admin: 10/25/22 08:53 Dose: 7,100 unit Heparin Sodium (Porcine) (Heparin Sodium,Porcine 5,000 Unit/Ml Vial) 10,000 unit IVPUSH PROTOCOL BOLUS PRN; Protocol PRN Reason: 80 unit/kg - Heparin Protocol Dextrose (D10) 250 mls @ 750 mls/hr IV Q15M PRN; Protocol PRN Reason: per Hypoglycemia Standing Ord. Heparin Sodium/Sodium Chloride (Heparin Sodium,Porcine/1/2ns) 25,000 unit in 250 mls @ 0 mls/hr IVCONT .Q0M ANDREW; Protocol Last Titration: 10/25/22 08:47 Dose: 7.65 units/kg/hr, 13.55 mls/hr Insulin Human Lispro (Insulin Lispro 100 Unit/Ml 3 Ml Vial) 0 unit SUBCUT QIDACHS [facility]; Protocol Last Admin: 10/25/22 07:53 Dose: Not Given Melatonin (Melatonin 3 Mg Tablet) 6 mg PO BEDTIME PRN PRN Reason: Insomnia Metoprolol Succinate (Metoprolol Succinate Er 50 Mg Tab.Er.24h) 50 mg PO DAILY [facility]; Protocol Last Admin: 10/25/22 08:38 Dose: 50 mg Mirtazapine (Mirtazapine 7.5 Mg Tablet) 7.5 mg PO BEDTIME [facility] Nitroglycerin (Nitroglycerin 0.4 Mg Tab.Subl) 0.4 mg SUBLINGUAL Q5MX3 PRN PRN Reason: Chest Pain Senna (Sennosides 8.6 Mg Tablet) 17.2 mg PO BEDTIME PRN PRN Reason: Constipation Sodium Chloride (0.9 % Sodium Chloride Flush 3 Ml Syringe) 3 ml IVFLUSH QSHIFT [facility] Last Admin: 10/25/22 08:38 Dose: 3 ml Topiramate (Topiramate 25 Mg Tablet) 50 mg PO BID [facility] Last Admin: 10/25/22 08:38 Dose: 50 mg Tramadol HCl (Tramadol Hcl 50 Mg Tablet) 50 mg PO Q8H PRN PRN Reason: breakthrough pain Home Medications Medication Instructions Recorded Confirmed Last Taken Type baclofen 10 mg tablet 10 mg PO TID PRN muscle spasm 11/03/20 10/25/22 Unknown History albuterol sulfate 90 mcg/actuation 2 puff PO Q4-6H PRN Wheezing 12/01/20 10/25/22 Unknown History aerosol inhaler (Ventolin HFA) atorvastatin 80 mg tablet (Lipitor) 80 mg PO BEDTIME 12/01/20 10/25/22 05/20/22 History fluticasone propionate 50 2 spray intranasal DAILY 12/01/20 10/25/22 05/21/22 History mcg/actuation nasal spray,suspension blood pressure test kit-large #1 ea 12/19/20 10/23/22 Unknown History topiramate 50 mg tablet 50 mg PO BID 12/19/20 10/25/22 Unknown History cholecalciferol (vitamin D3) 50 50 mcg PO DAILY 03/13/22 10/25/22 05/21/22 History mcg (2,000 unit) capsule mirtazapine 7.5 mg tablet 7.5 mg PO BEDTIME 06/17/22 10/25/22 Unknown History aspirin 81 mg tablet,delayed 81 mg PO DAILY 07/01/22 10/25/22 Unknown History release lisinopril 30 mg tablet 30 mg PO DAILY 07/01/22 10/25/22 Unknown History metformin 500 mg tablet,extended 500 mg PO QPM 07/01/22 10/25/22 Unknown History release 24 hr metoprolol succinate 50 mg 50 mg PO DAILY 07/01/22 10/25/22 Unknown History tablet,extended release 24 hr omeprazole 20 mg capsule,delayed 20 mg PO DAILY 07/01/22 10/25/22 Unknown History release ticagrelor 90 mg tablet (Brilinta) 90 mg PO BID 07/02/22 10/25/22 Unknown History tramadol 50 mg tablet 50 mg PO Q8H PRN severe pain 10/24/22 10/25/22 Unknown History capsaicin 0.025 % topical cream 1 appl topical BID PRN mild pain 10/25/22 10/25/22 Unknown History metronidazole 0.75 % topical gel 1 appl topical DAILY PRN Rash 10/25/22 10/25/22 Unknown History semaglutide 0.25 mg or 0.5 mg (2 0.25 mg subcut QWEEK 10/25/22 10/25/22 Unknown History mg/1.5 mL) subcutaneous pen injector (99Bill) Physical Exam Vital Signs: Vital Signs: Last Vital Signs Temp 97.4 F 10/25/22 07:36 Pulse 62 10/25/22 07:36 Resp 20 10/25/22 07:36 BP 108/64 10/25/22 07:36 Pulse Ox 98 10/25/22 07:36 O2 Del Method 10/25/22 07:36 O2 Flow Rate 2 10/25/22 07:36 BMI result Body Mass Index 63.0 Const: General: comfortable and no acute distress Orientation/consciousness: patient oriented x3 HEENT: Other: Unremarkable Head: Yes normal to inspection Neck: Neck: Yes normal visual inspection Chest: Chest palpation & inspection: normal inspection of the chest Resp: Auscultation: clear to auscultation bilaterally Cardio: Palpation: normal PMI Heart sounds: S1 normal heart sound present, S2 normal heart sound present, no gallops, no murmurs and no rubs GI: Palpation (GI): Soft to palpation Back/Spine/Pelvis: Other: unremarkable Skin: General skin exam: no rashes or lesions noted Neuro: General: patient oriented x3 Extrem: General: Yes normal to inspection Psych: Mental Status: mental status grossly normal Objective Labs and Meds 10/25/22 00:16 10/25/22 06:42 Lab results: Laboratory Results - last 24 hr 10/24/22 10/24/22 10/24/22 15:58 15:58 15:58 WBC 13.1 H RBC 4.21 Hgb 13.0 Hct 39.7 MCV 94.3 MCH 30.9 MCHC 32.7 RDW 13.9 Plt Count 359 MPV 9.7 Immature Gran % (Auto) 1.0 H Neut % (Auto) 51.0 Lymph % (Auto) 35.9 Morgan % (Auto) 8.0 Eos % (Auto) 3.6 Baso % (Auto) 0.5 Lymph # (Auto) 4.7 Morgan # (Auto) 1.1 Eos # (Auto) 0.5 H Baso # (Auto) 0.1 Abs Immat Gran (auto) 0.13 H Absolute Neuts (auto) 6.7 Absolute Nucleated RBC 0.000 Nucleated RBC % (auto) 0.0 PT 11.1 INR 1.0 APTT 38.1 H aPTT Heparin Protocol Sodium 140 Potassium 4.1 Chloride 106 Carbon Dioxide 26 Anion Gap 12 BUN 9 Creatinine 0.87 Estim Creat Clear Calc 126.3 Estimated GFR > 60 POC Glucose Random Glucose 86 Calcium 8.7 Total Bilirubin 0.2 AST 15 ALT 15 Alkaline Phosphatase 76 Troponin I High Sens B-Natriuretic Peptide Total Protein 6.8 Albumin 3.5 Beta HCG, Quant < 2 COVID-19 (VIRGILIO) COVID-19 Clin Com Influenza Type A (VERONICA) Influenza Type B (VERONICA) Influenza A & B Note 10/24/22 10/24/22 10/24/22 15:58 15:58 15:58 WBC RBC Hgb Hct MCV MCH MCHC RDW Plt Count MPV Immature Gran % (Auto) Neut % (Auto) Lymph % (Auto) Morgan % (Auto) Eos % (Auto) Baso % (Auto) Lymph # (Auto) Morgan # (Auto) Eos # (Auto) Baso # (Auto) Abs Immat Gran (auto) Absolute Neuts (auto) Absolute Nucleated RBC Nucleated RBC % (auto) PT INR APTT aPTT Heparin Protocol Sodium Potassium Chloride Carbon Dioxide Anion Gap BUN Creatinine Estim Creat Clear Calc Estimated GFR POC Glucose Random Glucose Calcium Total Bilirubin AST ALT Alkaline Phosphatase Troponin I High Sens < 3.5 B-Natriuretic Peptide < 10 Total Protein Albumin Beta HCG, Quant COVID-19 (VIRGILIO) Negative COVID-19 Clin Com See Note Influenza Type A (VERONICA) Influenza Type B (VERONICA) Influenza A & B Note 10/24/22 10/24/22 10/24/22 15:58 19:16 22:20 WBC RBC Hgb Hct MCV MCH MCHC RDW Plt Count MPV Immature Gran % (Auto) Neut % (Auto) Lymph % (Auto) Morgan % (Auto) Eos % (Auto) Baso % (Auto) Lymph # (Auto) Morgan # (Auto) Eos # (Auto) Baso # (Auto) Abs Immat Gran (auto) Absolute Neuts (auto) Absolute Nucleated RBC Nucleated RBC % (auto) PT INR APTT aPTT Heparin Protocol Sodium Potassium Chloride Carbon Dioxide Anion Gap BUN Creatinine Estim Creat Clear Calc Estimated GFR POC Glucose Random Glucose Calcium Total Bilirubin AST ALT Alkaline Phosphatase Troponin I High Sens 5.6 D 21.5 H D B-Natriuretic Peptide Total Protein Albumin Beta HCG, Quant COVID-19 (VIRGILIO) COVID-19 Clin Com Influenza Type A (VERONICA) Negative Influenza Type B (VERONICA) Negative Influenza A & B Note See Note 10/25/22 10/25/22 10/25/22 00:16 06:42 06:42 WBC 13.2 H RBC 4.00 L Hgb 12.3 Hct 37.1 MCV 92.8 MCH 30.8 MCHC 33.2 RDW 13.9 Plt Count 329 MPV 9.4 Immature Gran % (Auto) Neut % (Auto) Lymph % (Auto) Morgan % (Auto) Eos % (Auto) Baso % (Auto) Lymph # (Auto) Morgan # (Auto) Eos # (Auto) Baso # (Auto) Abs Immat Gran (auto) Absolute Neuts (auto) Absolute Nucleated RBC 0.000 Nucleated RBC % (auto) 0.0 PT INR APTT aPTT Heparin Protocol 48.7 L Sodium 138 Potassium 4.2 Chloride 109 H Carbon Dioxide 22 Anion Gap 11 L BUN 13 Creatinine 0.85 Estim Creat Clear Calc 138.9 Estimated GFR > 60 POC Glucose Random Glucose 102 Calcium 8.7 Total Bilirubin 0.4 AST 14 ALT 13 Alkaline Phosphatase 74 Troponin I High Sens B-Natriuretic Peptide Total Protein 6.3 L Albumin 3.3 L Beta HCG, Quant COVID-19 (VIRGILIO) COVID-19 Clin Com Influenza Type A (VERONICA) Influenza Type B (VERONICA) Influenza A & B Note 10/25/22 07:38 WBC RBC Hgb Hct MCV MCH MCHC RDW Plt Count MPV Immature Gran % (Auto) Neut % (Auto) Lymph % (Auto) Morgan % (Auto) Eos % (Auto) Baso % (Auto) Lymph # (Auto) Morgan # (Auto) Eos # (Auto) Baso # (Auto) Abs Immat Gran (auto) Absolute Neuts (auto) Absolute Nucleated RBC Nucleated RBC % (auto) PT INR APTT aPTT Heparin Protocol Sodium Potassium Chloride Carbon Dioxide Anion Gap BUN Creatinine Estim Creat Clear Calc Estimated GFR POC Glucose 100 Random Glucose Calcium Total Bilirubin AST ALT Alkaline Phosphatase Troponin I High Sens B-Natriuretic Peptide Total Protein Albumin Beta HCG, Quant COVID-19 (VIRGILIO) COVID-19 Clin Com Influenza Type A (VERONICA) Influenza Type B (VERONICA) Influenza A & B Note ECG Interpretation: EKG with sinus rhythm at 78/Min; no significant ST-T changes and otherwise unrem arkable. Normal GA and corrected QT. Imaging Radiologist's impression: Impressions Chest X-Ray 10/24/22 16:19 IMPRESSION: Unremarkable examination. Assessment and Plan (1) Non-STEMI (non-ST elevated myocardial infarction): Status: Acute Plan Troponin levels are less than 3.5 followed by 5.6 followed by 21.5. Troponin levels are not too high but the pattern as well as presenting symptoms clearly suggestive of coronary etiology. Continue IV heparin drip. Aspirin, Brilinta. High-dose statins. Will transfer to [facility] over the weekend for cardiac catheterization Friday. Echocardiogram. Discussed with Dr. Jones. Time Spent With Patient Time: Total time managing care of this patient today 75 minutes. Procedures Date of Service Date of Service: 10/25/22
[2022-10-25 11:27] LABS: Glucose, Whole Blood 99 mg/dL (60-115)
[2022-10-25 11:53] LABS: Troponin-I High Sensitivity 109.7 ng/L (<3.5-17.0)
--- NOTE | 2022-10-25 12:04 | MHC.CM.PN ---
IMM 10/25/22 Female 47 DX Chest pain She lives with family. She uses a cane for unsteady gait. She receives assist with ADLs from [facility] [employer]. She has been vaxxed x2. A HCP has been documented, scanned into EMR and placed on the chart. DP home with resumption of [employer]. Patient will arrange for transportation.
--- NOTE | 2022-10-25 15:06 | P.PNIM_ITS ---
Subjective Subjective Date of Service: 10/25/22 Interval History: chest pain Review of Systems Chest pain seems to be resolved, denies any shortness of breath or abdominal pain or fever or chills or cough or phlegm. Physical Exam Vital Signs: Vital Signs: Last Vital Signs Temp 97.6 F 10/25/22 11:19 Pulse 71 10/25/22 11:19 Resp 20 10/25/22 11:19 BP 125/66 10/25/22 11:19 Pulse Ox 96 10/25/22 11:19 O2 Del Method 10/25/22 11:19 O2 Flow Rate 2 10/25/22 07:36 BMI result Body Mass Index 63.0 Appearance: Alert.? Oriented X3. cvs: [id number], [id number]. res: clear to auscultation ,no rhonchii or wheezing abd: no rebound or guarding ,nt, bs present. ext pulses present , no cyanosis . neuro: axo3 , nonfocal. Objective Data Active Medications Acetaminophen (Acetaminophen 325 Mg Tablet) 650 mg PO Q6H PRN PRN Reason: Pain, Mild (Pain Scale 1-3) Aspirin (Aspirin 81 Mg Tab.Chew) 81 mg PO DAILY ANDREW Last Admin: 10/25/22 08:38 Dose: 81 mg Documented By: GIFTY Atorvastatin Calcium (Atorvastatin Calcium 80 Mg Tablet) 80 mg PO BEDTIME [facility] Baclofen (Baclofen 10 Mg Tablet) 10 mg PO TID PRN PRN Reason: spasm Glucose (Glucose Gel 15 Gm Gel..Gram.) 15 gm PO Q15M PRN; Protocol PRN Reason: per Hypoglycemia Standing Ord. Heparin Sodium (Porcine) (Heparin Sodium,Porcine 5,000 Unit/Ml Vial) 7,100 unit IVPUSH PROTOCOL BOLUS PRN; Protocol PRN Reason: 40 unit/kg - Heparin Protocol Last Admin: 10/25/22 08:53 Dose: 7,100 unit Documented By: GIFTY Heparin Sodium (Porcine) (Heparin Sodium,Porcine 5,000 Unit/Ml Vial) 10,000 unit IVPUSH PROTOCOL BOLUS PRN; Protocol PRN Reason: 80 unit/kg - Heparin Protocol Dextrose (D10) 250 mls @ 750 mls/hr IV Q15M PRN; Protocol PRN Reason: per Hypoglycemia Standing Ord. Heparin Sodium/Sodium Chloride (Heparin Sodium,Porcine/1/2ns) 25,000 unit in 250 mls @ 0 mls/hr IVCONT .Q0M REPLACED BY [facility]; Protocol Last Titration: 10/25/22 08:47 Dose: 7.65 units/kg/hr, 13.55 mls/hr Documented By: GIFTY Co-signed By: ROLAN Insulin Human Lispro (Insulin Lispro 100 Unit/Ml 3 Ml Vial) 0 unit SUBCUT QIDACHS REPLACED BY [facility]; Protocol Last Admin: 10/25/22 12:02 Dose: Not Given Documented By: GIFTY Non-Admin Reason: No Insulin Coverage Melatonin (Melatonin 3 Mg Tablet) 6 mg PO BEDTIME PRN PRN Reason: Insomnia Metoprolol Succinate (Metoprolol Succinate Er 50 Mg Tab.Er.24h) 50 mg PO DAILY REPLACED BY [facility]; Protocol Last Admin: 10/25/22 08:38 Dose: 50 mg Documented By: GIFTY Mirtazapine (Mirtazapine 7.5 Mg Tablet) 7.5 mg PO BEDTIME REPLACED BY [facility] Nitroglycerin (Nitroglycerin 0.4 Mg Tab.Subl) 0.4 mg SUBLINGUAL Q5MX3 PRN PRN Reason: Chest Pain Senna (Sennosides 8.6 Mg Tablet) 17.2 mg PO BEDTIME PRN PRN Reason: Constipation Sodium Chloride (0.9 % Sodium Chloride Flush 3 Ml Syringe) 3 ml IVFLUSH QSHIFT REPLACED BY [facility] Last Admin: 10/25/22 08:38 Dose: 3 ml Documented By: GIFTY Topiramate (Topiramate 25 Mg Tablet) 50 mg PO BID REPLACED BY [facility] Last Admin: 10/25/22 08:38 Dose: 50 mg Documented By: GIFTY Tramadol HCl (Tramadol Hcl 50 Mg Tablet) 50 mg PO Q8H PRN PRN Reason: breakthrough pain Labs 10/25/22 00:16 10/25/22 06:42 Labs: Laboratory Results - last 24 hr 10/24/22 10/24/22 10/24/22 15:58 15:58 15:58 MCV 94.3 MCH 30.9 MCHC 32.7 RDW 13.9 Plt Count 359 MPV 9.7 Immature Gran % (Auto) 1.0 H Neut % (Auto) 51.0 Lymph % (Auto) 35.9 Donley % (Auto) 8.0 Eos % (Auto) 3.6 Baso % (Auto) 0.5 Lymph # (Auto) 4.7 [place] # (Auto) 1.1 Eos # (Auto) 0.5 H Baso # (Auto) 0.1 Abs Immat Gran (auto) 0.13 H Absolute Neuts (auto) 6.7 Absolute Nucleated RBC 0.000 Nucleated RBC % (auto) 0.0 PT 11.1 INR 1.0 APTT 38.1 H aPTT Heparin Protocol Anion Gap 12 Estim Creat Clear Calc 126.3 Estimated GFR > 60 POC Glucose Random Glucose 86 Calcium 8.7 Total Bilirubin 0.2 AST 15 ALT 15 Alkaline Phosphatase 76 Troponin I High Sens B-Natriuretic Peptide Total Protein 6.8 Albumin 3.5 Beta HCG, Quant < 2 COVID-19 (VIRGILIO) COVID-19 Clin Com Influenza Type A (VERONICA) Influenza Type B (VERONICA) Influenza A & B Note 10/24/22 10/24/22 10/24/22 15:58 15:58 15:58 MCV MCH MCHC RDW Plt Count MPV Immature Gran % (Auto) Neut % (Auto) Lymph % (Auto) Donley % (Auto) Eos % (Auto) Baso % (Auto) Lymph # (Auto) [place]ley # (Auto) Eos # (Auto) Baso # (Auto) Abs Immat Gran (auto) Absolute Neuts (auto) Absolute Nucleated RBC Nucleated RBC % (auto) PT INR APTT aPTT Heparin Protocol Anion Gap Estim Creat Clear Calc Estimated GFR POC Glucose Random Glucose Calcium Total Bilirubin AST ALT Alkaline Phosphatase Troponin I High Sens < 3.5 B-Natriuretic Peptide < 10 Total Protein Albumin Beta HCG, Quant COVID-19 (VIRGILIO) Negative COVID-19 Clin Com See Note Influenza Type A (VERONICA) Influenza Type B (VERONICA) Influenza A & B Note 10/24/22 10/24/22 10/24/22 15:58 19:16 22:20 MCV MCH MCHC RDW Plt Count MPV Immature Gran % (Auto) Neut % (Auto) Lymph % (Auto) Donley % (Auto) Eos % (Auto) Baso % (Auto) Lymph # (Auto) [place]ley # (Auto) Eos # (Auto) Baso # (Auto) Abs Immat Gran (auto) Absolute Neuts (auto) Absolute Nucleated RBC Nucleated RBC % (auto) PT INR APTT aPTT Heparin Protocol Anion Gap Estim Creat Clear Calc Estimated GFR POC Glucose Random Glucose Calcium Total Bilirubin AST ALT Alkaline Phosphatase Troponin I High Sens 5.6 D 21.5 H D B-Natriuretic Peptide Total Protein Albumin Beta HCG, Quant COVID-19 (VIRGILIO) COVID-19 Clin Com Influenza Type A (VERONICA) Negative Influenza Type B (VERONICA) Negative Influenza A & B Note See Note 10/25/22 10/25/22 10/25/22 00:16 06:42 06:42 MCV 92.8 MCH 30.8 MCHC 33.2 RDW 13.9 Plt Count 329 MPV 9.4 Immature Gran % (Auto) Neut % (Auto) Lymph % (Auto) Donley % (Auto) Eos % (Auto) Baso % (Auto) Lymph # (Auto) Donley # (Auto) Eos # (Auto) Baso # (Auto) Abs Immat Gran (auto) Absolute Neuts (auto) Absolute Nucleated RBC 0.000 Nucleated RBC % (auto) 0.0 PT INR APTT aPTT Heparin Protocol 48.7 L Anion Gap 11 L Estim Creat Clear Calc 138.9 Estimated GFR > 60 POC Glucose Random Glucose 102 Calcium 8.7 Total Bilirubin 0.4 AST 14 ALT 13 Alkaline Phosphatase 74 Troponin I High Sens B-Natriuretic Peptide Total Protein 6.3 L Albumin 3.3 L Beta HCG, Quant COVID-19 (VIRGILIO) COVID-19 Clin Com Influenza Type A (VERONICA) Influenza Type B (VERONICA) Influenza A & B Note 10/25/22 10/25/22 10/25/22 07:38 10:17 11:18 MCV MCH MCHC RDW Plt Count MPV Immature Gran % (Auto) Neut % (Auto) Lymph % (Auto) Donley % (Auto) Eos % (Auto) Baso % (Auto) Lymph # (Auto) Donley # (Auto) Eos # (Auto) Baso # (Auto) Abs Immat Gran (auto) Absolute Neuts (auto) Absolute Nucleated RBC Nucleated RBC % (auto) PT INR APTT aPTT Heparin Protocol Anion Gap Estim Creat Clear Calc Estimated GFR POC Glucose 100 99 Random Glucose Calcium Total Bilirubin AST ALT Alkaline Phosphatase Troponin I High Sens 109.7 H* D B-Natriuretic Peptide Total Protein Albumin Beta HCG, Quant COVID-19 (VIRGILIO) COVID-19 Clin Com Influenza Type A (VERONICA) Influenza Type B (VERONICA) Influenza A & B Note Assessment and Plan (1) Non-STEMI (non-ST elevated myocardial infarction): Status: Acute Plan 47-year-old female with a past medical history of hypertension, hyperlipidemia, diabetes, CAD status post stent about 6 months;-on aspirin, Brilinta, anxiety, depression; presented to the hospital today with a chief complaint of chest pain.? Chest pain/nstemi:Typical in nature.? Currently chest pain resolved.? Patient has known history of CAD status post PCI about 6 months ago-currently on aspirin, Brilinta EKG nonischemic.? Troponin <3.5--> 5.6--> 21.5-109 Telemetry added echo,d/w cardiology-?aspirin, Brilinta, metoprolol, statin,Sublingual nitroglycerin p.r.n.,heparin drip?in the ER History HTN/HLD: Continue home metoprolol, statin.? Lisinopril on hold for now to be resumed as needed.? History of chronic pain syndrome: Continue home tramadol p.r.n. History of depression:? Continue home mirtazapine. History of GERD: Continue home Prilosec. History of diabetes: Hold home metformin.? Insulin sliding scale. Morbid obesity: Encouraged to lose weight. DVT prophylaxis:? Patient on Lovenox inaptient need : nsetmi-need iv heparin and pt/ptt moniterin ,as well as cardiac workup ,may need [facility] tranfer over weekend for possible cardiac cath. Time Spent With Patient Time: Total time managing care of this patient today ____ minutes. Quality Stroke Does the patient have a stroke diagnosis?: No VTE Prior VTE?: No VTE Risk Level:: Medical - moderate - high VTE Device Contraindication: Treatment Not Indicated VTE Drug Contraindication: N/A - Med Ordered
[2022-10-25 15:11] LABS: PTT Heparin Drip 75.4 SEC (53-77.9)
[2022-10-25] MEDS: Ticagrelor 90 MG TABLET PO ×2 (16:01→20:21)
[2022-10-25 16:11] LABS: Glucose, Whole Blood 84 mg/dL (60-115)
[2022-10-25] MEDS: Heparin Sodium,Porcine/1/2NS 25,000 UNIT/250 ML IV.SOLN 13.55 UNIT IVCONT (17:29)
[2022-10-25 19:39] LABS: Glucose, Whole Blood 100 mg/dL (60-115)
[2022-10-25] MEDS: Atorvastatin Calcium 80 MG TABLET PO (20:21)
[2022-10-25] MEDS: Mirtazapine 7.5 MG TABLET PO (20:21)
[2022-10-25 21:47] LABS: PTT Heparin Drip 54.5 SEC (53-77.9)
[2022-10-26 03:23] VITALS: BP 161/75; PULSE 51; RESP 20; TEMP 36.1; O2SAT 98
[2022-10-26 07:11] LABS: Hemoglobin 12.1 g/dl (12.0-16.0)
[2022-10-26 07:14] LABS: PTT Heparin Drip 57.3 SEC (53-77.9)
[2022-10-26 08:00] VITALS: BP 141/74; PULSE 61; RESP 20; TEMP 36.3; O2SAT 97
[2022-10-26 08:15] LABS: Glucose, Whole Blood 109 mg/dL (60-115)
[2022-10-26] MEDS: Cholecalciferol (Vitamin D3) 25 MCG TABLET 50 MCG PO (09:12)
[2022-10-26] MEDS: Pyridoxine HCl (Vitamin B6) 50 MG TABLET 100 MG PO (09:12)
[2022-10-26] MEDS: Metoprolol Succinate ER 50 MG TAB.ER.24H PO (09:12)
[2022-10-26] MEDS: allopurinoL 100 MG TABLET PO (09:12)
[2022-10-26] MEDS: Aspirin 81 MG TAB.CHEW PO (09:12)
[2022-10-26] MEDS: Topiramate 25 MG TABLET 50 MG PO ×2 (09:12→20:28)
[2022-10-26] MEDS: Ticagrelor 90 MG TABLET PO ×2 (09:12→20:28)
[2022-10-26] MEDS: Fluticasone Propionate Nasal 16 GM SPRAY 2 SPRAY NOSTRIL-B (09:12)
[2022-10-26 11:01] LABS: Glucose, Whole Blood 118 mg/dL (60-115)
[2022-10-26 11:28] VITALS: BP 130/71; PULSE 64; RESP 20; TEMP 37; O2SAT 97
[2022-10-26] MEDS: Heparin Sodium,Porcine/1/2NS 25,000 UNIT/250 ML IV.SOLN 13.55 UNIT IVCONT (12:12)
--- NOTE | 2022-10-26 13:13 | HO.PM.IMPN ---
Subjective Subjective Date of Service: 10/26/22 Interval History: chest pain Review of Systems no chest pain today no new events overnight as per patient. Physical Exam Vital Signs: Vital Signs: Last Vital Signs Temp 98.6 F 10/26/22 11:28 Pulse 64 10/26/22 11:28 Resp 20 10/26/22 11:28 BP 130/71 10/26/22 11:28 Pulse Ox 97 10/26/22 11:28 O2 Del Method 10/26/22 11:28 O2 Flow Rate 2 10/25/22 07:36 BMI result Body Mass Index 63.0 ? Appearance: Alert.? Oriented X3. cvs: rrr, [id number]. res: clear to auscultation ,no rhonchii or wheezing abd: no rebound or guarding ,nt, bs present. ext pulses present , no cyanosis . neuro: axo3 , nonfocal. Objective Data Active Medications Acetaminophen (Acetaminophen 325 Mg Tablet) 650 mg PO Q6H PRN PRN Reason: Pain, Mild (Pain Scale 1-3) Albuterol Sulfate (Albuterol Sulfate 90 Mcg 8 Gm Inhaler) 2 puff INHALE Q4H PRN PRN Reason: Wheezing Allopurinol (Allopurinol 100 Mg Tablet) 100 mg PO DAILY [facility] Last Admin: 10/26/22 09:12 Dose: 100 mg Documented By: RODNEY Aspirin (Aspirin 81 Mg Tab.Chew) 81 mg PO DAILY [facility] Last Admin: 10/26/22 09:12 Dose: 81 mg Documented By: RODNEY Atorvastatin Calcium (Atorvastatin Calcium 80 Mg Tablet) 80 mg PO BEDTIME [facility] Last Admin: 10/25/22 20:21 Dose: 80 mg Documented By: CASTLIYA Baclofen (Baclofen 10 Mg Tablet) 10 mg PO TID PRN PRN Reason: spasm Capsaicin (Capsaicin 0.025% Cream 60 Gm Tube) 1 appl TOPICAL BID PRN; Protocol PRN Reason: mild pain Fluticasone Propionate (Fluticasone Propionate Nasal 16 Gm [place]) 2 spray NOSTRIL-B DAILY [facility] Last Admin: 10/26/22 09:12 Dose: 2 spray Documented By: RODNEY Glucose (Glucose Gel 15 Gm Gel..Gram.) 15 gm PO Q15M PRN; Protocol PRN Reason: per Hypoglycemia Standing Ord. Heparin Sodium (Porcine) (Heparin Sodium,Porcine 5,000 Unit/Ml Vial) 7,100 unit IVPUSH PROTOCOL BOLUS PRN; Protocol PRN Reason: 40 unit/kg - Heparin Protocol Last Admin: 10/25/22 08:53 Dose: 7,100 unit Documented By: GIFTY Heparin Sodium (Porcine) (Heparin Sodium,Porcine 5,000 Unit/Ml Vial) 10,000 unit IVPUSH PROTOCOL BOLUS PRN; Protocol PRN Reason: 80 unit/kg - Heparin Protocol Dextrose (D10) 250 mls @ 750 mls/hr IV Q15M PRN; Protocol PRN Reason: per Hypoglycemia Standing Ord. Heparin Sodium/Sodium Chloride (Heparin Sodium,Porcine/1/2ns) 25,000 unit in 250 mls @ 0 mls/hr IVCONT .Q0M [facility]; Protocol Last Admin: 10/26/22 12:12 Dose: 7.65 units/kg/hr, 13.55 mls/hr Documented By: RODNEY Co-signed By: PARAG Insulin Human Lispro (Insulin Lispro 100 Unit/Ml 3 Ml Vial) 0 unit SUBCUT QIDACHS [facility]; Protocol Last Admin: 10/26/22 11:05 Dose: Not Given Documented By: RODNEY Non-Admin Reason: No Insulin Coverage Melatonin (Melatonin 3 Mg Tablet) 6 mg PO BEDTIME PRN PRN Reason: Insomnia Metoprolol Succinate (Metoprolol Succinate Er 50 Mg Tab.Er.24h) 50 mg PO DAILY [facility]; Protocol Last Admin: 10/26/22 09:12 Dose: 50 mg Documented By: RODNEY Metronidazole (Metronidazole 0.75 % Gel 45 Gm Tube) 1 appl TOPICAL DAILY PRN PRN Reason: Rash Mirtazapine (Mirtazapine 7.5 Mg Tablet) 7.5 mg PO BEDTIME [facility] Last Admin: 10/25/22 20:21 Dose: 7.5 mg Documented By: CASTILJamarcus Nitroglycerin (Nitroglycerin 0.4 Mg Tab.Subl) 0.4 mg SUBLINGUAL Q5MX3 PRN PRN Reason: Chest Pain Non-Formulary Medication (Semaglutide [Ozempic]) 0.25 mg SUBCUT Q7D ANDREW Pyridoxine HCl (Pyridoxine Hcl (Vitamin B6) 50 Mg Tablet) 100 mg PO DAILY [facility] Last Admin: 10/26/22 09:12 Dose: 100 mg Documented By: RODNEY Senna (Sennosides 8.6 Mg Tablet) 17.2 mg PO BEDTIME PRN PRN Reason: Constipation Sodium Chloride (0.9 % Sodium Chloride Flush 3 Ml Syringe) 3 ml IVFLUSH QSHIFT [facility] Last Admin: 10/26/22 08:28 Dose: Not Given Documented By: RODNEY Non-Admin Reason: IV Running Ticagrelor (Ticagrelor 90 Mg Tablet) 90 mg PO BID [facility] Last Admin: 10/26/22 09:12 Dose: 90 mg Documented By: RODNEY Topiramate (Topiramate 25 Mg Tablet) 50 mg PO BID [facility] Last Admin: 10/26/22 09:12 Dose: 50 mg Documented By: RODNEY Tramadol HCl (Tramadol Hcl 50 Mg Tablet) 50 mg PO Q8H PRN PRN Reason: breakthrough pain Vitamin D (Cholecalciferol (Vitamin D3) 25 Mcg Tablet) 50 mcg PO DAILY [facility] Last Admin: 10/26/22 09:12 Dose: 50 mcg Documented By: RODNEY Labs 10/26/22 06:56 10/25/22 06:42 Labs: Laboratory Results - last 24 hr 10/25/22 10/25/22 10/25/22 14:43 16:07 19:34 aPTT Heparin Protocol 75.4 D POC Glucose 84 100 10/25/22 10/26/22 10/26/22 21:23 06:56 08:12 aPTT Heparin Protocol 54.5 D 57.3 POC Glucose 109 10/26/22 10:58 aPTT Heparin Protocol POC Glucose 118 H Assessment and Plan (1) Non-STEMI (non-ST elevated myocardial infarction): Status: Acute Plan 47-year-old female with a past medical history of hypertension, hyperlipidemia, diabetes, CAD status post stent about 6 months;-on aspirin, Brilinta, anxiety, depression; presented to the hospital today with a chief complaint of chest pain.? Chest pain/nstemi:Typical in nature.? Currently chest pain resolved.? Patient has known history of CAD status post PCI about 6 months ago-currently on aspirin, Brilinta EKG nonischemic.? Troponin <3.5--> 5.6--> 21.5-109 Telemetry added echo,d/w cardiology-?aspirin, Brilinta, metoprolol, statin,Sublingual nitroglycerin p.r.n.,heparin drip?in the ER History HTN/HLD: Continue home metoprolol, statin.? Lisinopril on hold for now to be resumed as needed.? History of chronic pain syndrome: Continue home tramadol p.r.n. History of depression:? Continue home mirtazapine. History of GERD: Continue home Prilosec. History of diabetes: Hold home metformin.? Insulin sliding scale, moniter fs -no coverage below 200 mg/dl. Morbid obesity:? Encouraged to lose weight. DVT prophylaxis:? on iv heparin inaptient need : nsetmi-need iv heparin and pt/ptt moniterin ,as well as cardiac workup ,may need [facility] tranfer over weekend for possible cardiac cath. Time Spent With Patient Time: Total time managing care of this patient today ____ minutes. Quality Stroke Does the patient have a stroke diagnosis?: No VTE Prior VTE?: No VTE Risk Level:: Medical - moderate - high VTE Device Contraindication: Treatment Not Indicated VTE Drug Contraindication: N/A - Med Ordered
[2022-10-26 15:14] VITALS: BP 154/79; PULSE 60; RESP 18; TEMP 37.1; O2SAT 97
[2022-10-26 15:24] LABS: Glucose, Whole Blood 113 mg/dL (60-115)
[2022-10-26 19:13] VITALS: BP 139/70; PULSE 68; RESP 20; TEMP 36.3; O2SAT 95
[2022-10-26 19:56] LABS: Glucose, Whole Blood 98 mg/dL (60-115)
[2022-10-26] MEDS: Atorvastatin Calcium 80 MG TABLET PO (20:28)
[2022-10-26] MEDS: Mirtazapine 7.5 MG TABLET PO (20:28)
[2022-10-26] MEDS: 0.9 % Sodium Chloride Flush 3 ML SYRINGE IVFLUSH (20:29)
[2022-10-26 23:08] VITALS: BP 136/69; PULSE 57; RESP 20; TEMP 36.9; O2SAT 93
[2022-10-27 03:55] VITALS: BP 147/73; PULSE 52; RESP 18; TEMP 37; O2SAT 95
[2022-10-27 07:48] LABS: PTT Heparin Drip 53.2 SEC (53-77.9)
[2022-10-27 07:52] VITALS: BP 137/66; PULSE 56; RESP 20; TEMP 36.4; O2SAT 96
[2022-10-27 07:59] LABS: Glucose, Whole Blood 102 mg/dL (60-115)
[2022-10-27] MEDS: Aspirin 81 MG TAB.CHEW PO (08:04)
[2022-10-27] MEDS: Ticagrelor 90 MG TABLET PO (08:04)
[2022-10-27] MEDS: Cholecalciferol (Vitamin D3) 25 MCG TABLET 50 MCG PO (08:04)
[2022-10-27] MEDS: Topiramate 25 MG TABLET 50 MG PO (08:05)
[2022-10-27] MEDS: allopurinoL 100 MG TABLET PO (08:05)
[2022-10-27] MEDS: Pyridoxine HCl (Vitamin B6) 50 MG TABLET 100 MG PO (08:05)
--- NOTE | 2022-10-27 08:05 | P.DS_ITS ---
DS: Providers Provider Date of Service: 10/27/22 Date of admission: 10/24/22 23:36 Date of discharge: 10/27/22 Primary care physician: Carmen Bertrand DO Consults: 10/24/22 23:36 Consult to Cardiology Routine Consulting Provider: [facility] Reason for consultation: hx CAd with stent 6 months ago; now Chest pain trops with [place] high Attending physician on discharge: Abraham Jones DS: Diagnosis Discharge Diagnosis (1) Non-STEMI (non-ST elevated myocardial infarction): Status: Acute DS: Summary Hospital Course Hospital Course: 47-year-old female with a past medical history of hypertension, hyperlipidemia, diabetes, CAD status post stent about 6 months;-on aspirin, Brilinta, anxiety, depression; presented to the hospital today with a chief complaint of chest pain.? Patient mentioned that today she had chest pain located on the left side of the chest, radiating to the left arm, assist with nausea; denies any shortness of breath, denies any diaphoresis.? Symptoms persisted until she came to the ER.? Denies any chest pain at the time of my interview.? Denies any fever chills cough or sputum production.? Denies any recent travel or sick contacts.? Reports he has been taking her home medications Denies any numbness tingling or focal weakness, denies any falls.? Patient denies any signs of bleeding Review of all other systems is negative except mentioned above ER course: Per ER team, patient chest pain improved after she came to the ER; initial troponin was 3.5 follow post like 0.6 and then increase to 21.5; discussed with Cardiology Dr. Noyola who suggested anticoagulation; started on heparin drip.? admitted to the telemetry.? EKG was nonischemic.? Admitted to the hospital for further management. hospital course: Patient was admitted because of chest pain and found to have NSTEMI-continue aspirin, statin, Brilinta, beta-elijah, IV heparin-patient will be transferred to the [facility] for further intervention including cardiac catheterization. nose mild epistaxis : when she blow nose ,resolved , advised to avoid nose blowing. plan: continue nstemi management-patient will be transferred to the [facility] for further intervention including cardiac catheterization. follow up outpatient . Above management discussed the patient detail length she understand and in agreement with the above plan, time spent 50 minute. Time Spent with Patient Time attestation: Total time managing care of this patient today ____ minutes. Discharge coordination time: Greater than 30 minutes Quality: Safe Use of Opioids Does Pt have an Active Cancer Diagnosis on the Problem List?: No Quality: Stroke Does the patient have a stroke diagnosis?: No Physical Exam Vital Signs: Vital Signs: Last Vital Signs Temp 97.5 F 10/27/22 07:52 Pulse 56 10/27/22 07:52 Resp 20 10/27/22 07:52 BP 137/66 10/27/22 07:52 Pulse Ox 96 10/27/22 07:52 O2 Del Method 10/27/22 07:52 O2 Flow Rate 2 10/25/22 07:36 BMI result Body Mass Index 63.0 Appearance: Alert.? Oriented X3. cvs: rrr, [id number]. res: clear to auscultation ,no rhonchii or wheezing abd: no rebound or guarding ,nt, bs present. ext pulses present , no cyanosis . neuro: axo3 , nonfocal. DS: Data Data Completed and Pending Labs on day of discharge: Laboratory Results - last 24 hr 10/26/22 10/26/22 10/26/22 06:56 06:56 08:12 Hgb 12.1 Hct 37.0 aPTT Heparin Protocol 57.3 POC Glucose 109 10/26/22 10/26/22 10/26/22 10:58 15:13 19:51 Hgb Hct aPTT Heparin Protocol POC Glucose 118 H 113 98 10/27/22 10/27/22 07:23 07:53 Hgb Hct aPTT Heparin Protocol 53.2 POC Glucose 102 Imaging Chest x-ray: Radiologist's impression: ITS Impressions Chest X-Ray 10/24/22 16:19 IMPRESSION: Unremarkable examination. Discharge Plan Discharge Anticipated Discharge Date/Time: 10/27/22 07:55 Patient Disposition: Xfer Acute Care Hospital Discharge Diagnosis: nstemi Referrals: Carmen Bertrand DO [Primary Care Provider] - 1 Week Discharge Medications: New heparin(porcine) in 0.45% NaCl 25,000 unit/250 mL Parenteral Solution 25,000 unit continuous IV infusion DAILY Qty: 1 0RF Rx Instructions: continue current rate ,moniter pt/ptt as per protocol Continued albuterol sulfate [Ventolin HFA] 90 mcg/actuation HFA aerosol inhaler 2 puff PO Q4-6H PRN (Reason: Wheezing) fluticasone propionate 50 mcg/actuation spray,suspension 2 spray intranasal DAILY atorvastatin [Lipitor] 80 mg Tablet 80 mg PO BEDTIME omeprazole 20 mg capsule,delayed release(DR/EC) 20 mg PO DAILY lisinopril 30 mg tablet 30 mg PO DAILY metformin 500 mg tablet extended release 24 hr 500 mg PO QPM capsaicin 0.025 % cream 1 appl topical BID PRN (Reason: mild pain) metronidazole 0.75 % gel 1 appl topical DAILY PRN (Reason: Rash) Ozempic 0.25 mg or 0.5 mg(2 mg/1.5 mL) pen injector 0.25 mg subcut QWEEK baclofen 10 mg tablet 10 mg PO TID PRN (Reason: muscle spasm) topiramate 50 mg tablet 50 mg PO BID (DME) blood pressure test kit-large Kit See Rx Instructions .ROUTE DIRECTED Qty: 1 Rx Instructions: As directed tramadol 50 mg tablet 50 mg PO Q8H PRN (Reason: severe pain) cholecalciferol (vitamin D3) 50 mcg (2,000 unit) capsule 50 mcg PO DAILY mirtazapine 7.5 mg tablet 7.5 mg PO BEDTIME pyridoxine (vitamin B6) 100 mg tablet 100 mg PO DAILY 90 Days Qty: 90 1RF allopurinol 100 mg tablet 100 mg PO DAILY 90 Days Qty: 90 1RF Brilinta 90 mg tablet 90 mg PO BID metoprolol succinate 50 mg tablet extended release 24 hr 50 mg PO DAILY aspirin 81 mg tablet,delayed release (DR/EC) 81 mg PO DAILY Discharge Orders: Discharge Order (Routine); Ordered 10/27/22 Ordered By: Abraham Jones Diet: Advance to usual diet Activity on Discharge: As tolerated Stand Alone Forms: Patient Portal Discharge page Care Plan Goals: Patient was admitted because of chest pain and found to have NSTEMI-continue aspirin, statin, Brilinta, beta-elijah, IV heparin-patient will be transferred to the [facility] for further intervention including cardiac catheterization. Above management discussed the patient detail length she understand and in agreement with the above plan. Health Concerns: As above. Plan of Treatment: As above. Assessment: As above.
[2022-10-27] MEDS: Heparin Sodium,Porcine/1/2NS 25,000 UNIT/250 ML IV.SOLN 13.55 UNIT IVCONT (08:08)
[2022-10-27] MEDS: Metoprolol Succinate ER 50 MG TAB.ER.24H PO (08:12)
--- NOTE | 2022-10-27 10:56 | PM.PNCARD ---
Subjective Subjective Date of Service: 10/27/22 Interval history: She states that she feels okay. No chest pain but she is having epistaxis. Review of Systems Review of Systems Yes all other systems are reviewed and are negative Constitutional: Reports as per HPI and Reports no additional constitutional complaints Eyes: Reports as per HPI and Denies no additional eye complaints Denies system reviewed and no additional complaints, except as documented and Reports as per HPI Cardiovascular: Reports as per HPI, Reports no additional cardiovascular complaints, Denies acrocyanosis, Denies cool extremities, Denies chest pain, Denies leg edema, Denies lightheadedness, Denies palpitations and Denies dyspnea Respiratory: Reports as per HPI, Denies no additional respiratory complaints and Denies dyspnea Gastrointestinal: Reports as per HPI and Denies no additional gastrointestinal complaints Genitourinary: Reports as per HPI Musculoskeletal: Reports no additional musculoskeletal complaints and Reports as per HPI Skin/Breast: Reports system reviewed and no additional complaints, except as docu Reports system reviewed and no additional complaints, except as documented and Reports as per HPI Psychiatric: Reports no additional psychiatric complaints and Reports as per HPI Endocrine: Reports no additional endocrine complaints, Reports as per HPI and Denies palpitations Hematologic/Lymphatic: Reports no additional hematologic/lymphatic complaints and Reports as per HPI Allergic/Immunologic: Reports no additional allergic/immunologic complaints and Reports as per HPI Physical Exam Vital Signs: Last Vital Signs Temp 97.5 F 10/27/22 07:52 Pulse 56 10/27/22 07:52 Resp 20 10/27/22 07:52 BP 137/66 10/27/22 07:52 Pulse Ox 96 10/27/22 07:52 O2 Del Method 10/27/22 07:52 O2 Flow Rate 2 10/25/22 07:36 BMI result Body Mass Index 63.0 Const General: comfortable and no acute distress Orientation/consciousness: patient oriented x3 HEENT Other: Unremarkable Head: Yes normal to inspection Neck Neck: Yes normal visual inspection Chest Chest palpation & inspection: normal inspection of the chest Resp Auscultation: clear to auscultation bilaterally Cardio Palpation: normal PMI Heart sounds: S1 normal heart sound present, S2 normal heart sound present, no gallops, no murmurs and no rubs GI Palpation (GI): Soft to palpation Back/Spine/Pelvis Other: unremarkable Skin General skin exam: no rashes or lesions noted Neuro General: patient oriented x3 Extrem General: Yes normal to inspection Psych Mental Status: mental status grossly normal Objective Labs and Meds 10/26/22 06:56 10/25/22 06:42 Lab results: Laboratory Results - last 24 hr 10/26/22 10/26/22 10/26/22 10:58 15:13 19:51 aPTT Heparin Protocol POC Glucose 118 H 113 98 10/27/22 10/27/22 07:23 07:53 aPTT Heparin Protocol 53.2 POC Glucose 102 Progress Note: A&P Assessment and plan (1) Non-STEMI (non-ST elevated myocardial infarction): Status: Acute Plan Troponin levels are less than 3.5 followed by 5.6 followed by 21.5. Last value 110. Overall, suspicious for NSTEMI even though levels are not too high. On IV heparin drip, aspirin, Brilinta. Some epistaxis but nothing profound. Continue statins. Echocardiogram seems unremarkable. No new wall motion abnormalities. Will be transferred to [facility] today for cardiac catheterization tomorrow - accepted by [facility] hospitalist. Discussed with Dr. Jones. Time Spent With Patient Time: Total time managing care of this patient today 45 minutes. Progress Note: Quality Stroke Does the patient have a stroke diagnosis?: No Procedures Date of Service Date of Service: 10/27/22
--- NOTE | 2022-10-27 11:00 | MHC.CM.PN ---
DP: PT WILL TRANSFER TO [facility] FOR CARDIAC W/U/ CATH.
[2022-10-27] MEDS: Oxymetazoline HCl 0.05 % Nasal 15 ML SPRAY 2 SPRAY NOSTRIL-B (11:24)
[2022-10-27] MEDS: Loratadine 10 MG TABLET PO (11:24)
[2022-10-27 11:41] VITALS: BP 132/65; PULSE 59; RESP 20; TEMP 37.1; O2SAT 97
[2022-10-27 11:46] LABS: Glucose, Whole Blood 94 mg/dL (60-115)
--- NOTE | 2022-10-27 14:43 | ECG_ITS ---
Test Reason : left should/chest pain Blood Pressure : / mmHG Vent. Rate : 064 BPM Atrial Rate : 064 BPM P-R Int : 190 ms QRS Dur : 084 ms QT Int : 418 ms P-R-T Axes : 052 027 041 degrees QTc Int : 431 ms Normal sinus rhythm Normal ECG When compared to the previous EKG of No significant changes seen Referred By: Abraham Jones Electronically Signed By:Brent Aleman
--- NOTE | 2022-10-27 14:45 | PC.NURSE ---
report received from overnight RN, media marketing director per OCT. awaiting bed at [facility] to transfer pt. 1440 pt c/o sharp pain to R shoulder and stating feel weird and something feels wrong. MD notified, new orders for EKG and recommend administer Tylenol. nursing service administrator per OCT. Safety precautions remain in place.
[2022-10-27] MEDS: Acetaminophen 325 MG TABLET 650 MG PO (14:48)
[2022-10-27 14:54] VITALS: BP 142/69; PULSE 61; RESP 20; TEMP 36.6; O2SAT 97
[2022-10-27 15:35] VITALS: BP 168/86; PULSE 72; RESP 18; TEMP 36.3; O2SAT 95
[2022-10-27 15:35] LABS: COVID-19 Test Negative (Negative); IDNOW Serial# 16C4AD1C
[2022-10-27 16:29] LABS: Glucose, Whole Blood 90 mg/dL (60-115)
[2022-10-27] MEDS: 0.9 % Sodium Chloride Flush 3 ML SYRINGE IVFLUSH (17:30)
[2022-10-27 19:20] VITALS: BP 147/67; PULSE 65; RESP 20; TEMP 36.6; O2SAT 94
[2022-10-27 19:45] LABS: Glucose, Whole Blood 89 mg/dL (60-115)
== END 2022-10-27 20:30 | disposition short-term general hospital (02) | DRG 281 ==
LOC: HO.ED 21:21 → HO.EDOVER 23:45 → HO.IMC 10-25 00:14
PROVIDERS: Nurse Practitioner Family; Admitting Provider Hospitalist; Emergency Provider Internal Medicine; PCP Family Medicine; Visit Provider Internal Medicine
DX: I21.4 Non-ST elevation (NSTEMI) myocardial infarction (principal); Z68.44 Body mass index [BMI] 60.0-69.9, adult; I25.10 Atherosclerotic heart disease of native coronary artery without angina pectoris; E78.5 Hyperlipidemia, unspecified; F17.210 Nicotine dependence, cigarettes, uncomplicated; Z71.6 Tobacco abuse counseling; K76.0 Fatty (change of) liver, not elsewhere classified; F41.9 Anxiety disorder, unspecified; F32.A Depression, unspecified; D72.829 Elevated white blood cell count, unspecified; G89.4 Chronic pain syndrome; K21.9 Gastro-esophageal reflux disease without esophagitis; R04.0 Epistaxis; E66.01 Morbid (severe) obesity due to excess calories; F43.10 Post-traumatic stress disorder, unspecified; Z20.822 Contact with and (suspected) exposure to COVID-19; Z95.5 Presence of coronary angioplasty implant and graft; Z88.0 Allergy status to penicillin; Z79.51 Long term (current) use of inhaled steroids; Z79.82 Long term (current) use of aspirin; Z79.84 Long term (current) use of oral hypoglycemic drugs; Z79.899 Other long term (current) drug therapy
CPT/HCPCS: 36415; 71046; 80053; 82947; 83880; 84484; 84702; 85014; 85018; 85025; 85027; 85610; 85730; 87502; 87635; 93005; 93306; 99285; J1643; Q9957

== ENCOUNTER → 2022-11-15 14:01 | Outpatient (BNVA) | payer OTHER, SELFPAY ==
[2022-10-22 13:00] VITALS: BP 128/72; BP 148/88; BMI 63.7
== END ==
PROVIDERS: PCP Family Medicine; Visit Provider Nurse Practitioner Family
DX: R07.89 Other chest pain (principal); I25.10 Atherosclerotic heart disease of native coronary artery without angina pectoris; I10 Essential (primary) hypertension; E78.5 Hyperlipidemia, unspecified; E66.01 Morbid (severe) obesity due to excess calories; Z98.890 Other specified postprocedural states; Z68.44 Body mass index [BMI] 60.0-69.9, adult
CPT/HCPCS: 99212

== ENCOUNTER → 2022-11-26 09:07 | Outpatient (BNVA) | payer OTHER, SELFPAY ==
[2022-10-22 13:00] VITALS: BP 128/72; BP 148/88; BMI 63.7
== END ==
PROVIDERS: PCP Family Medicine; Visit Provider Physician Assistant

== ENCOUNTER 2022-12-05 10:00 | Outpatient (REF) | payer OTHER, SELFPAY ==
[2022-10-22 13:00] VITALS: BP 128/72; BP 148/88; BMI 63.7
--- NOTE | ~2022-12-05 | US_ITS ---
EXAMINATION: US RETROPERITONEAL LIMITED (RENAL ONLY) CLINICAL INFORMATION: Calculus of kidney. COMPARISON: CT abdomen and pelvis 05/21/2022. Ultrasound abdomen complete 07/05/2021. Renal ultrasound 06/18/2021. TECHNIQUE: Real-time imaging of the kidneys. FINDINGS: RIGHT KIDNEY: 11.3 x 6.4 x 7.3 cm (SAG x AP x TRV). The kidney is normal in size, contour, and echogenicity. Renal cortical thickness is normal. No focal parenchymal lesions or hydronephrosis. There are 3 nonobstructing renal calculi measuring up to 0.3 cm. LEFT KIDNEY: 13.4 x 5.7 x 6.5 cm (SAG x AP x TRV). The kidney is normal in size, contour, and echogenicity. Renal cortical thickness is normal. No focal parenchymal lesions or hydronephrosis. There are at least 5 nonobstructive renal calculi measuring up to 0.5 cm. US/US renal BI IMPRESSION: Bilateral nonobstructive renal calculi.
== END 2022-12-05 10:01 | disposition home or self-care (01) ==
LOC: HO.US 10:00
PROVIDERS: PCP Family Medicine; Visit Provider Urology
DX: N20.0 Calculus of kidney (principal)
CPT/HCPCS: 76775

== ENCOUNTER → 2023-01-31 12:10 | Outpatient (BNVA) | payer OTHER, SELFPAY ==
[2022-10-22 13:00] VITALS: BP 128/72; BP 148/88; BMI 63.7
[2023-01-30 14:13] VITALS: BP 140/60
== END ==
PROVIDERS: PCP Family Medicine; Visit Provider Physician Assistant
DX: M17.0 Bilateral primary osteoarthritis of knee (principal); E11.9 Type 2 diabetes mellitus without complications; E66.9 Obesity, unspecified; Z68.44 Body mass index [BMI] 60.0-69.9, adult
CPT/HCPCS: 20610; 99212; J1020

== ENCOUNTER 2023-02-13 11:41 | Emergency (ER) | payer OTHER, SELFPAY ==
[2022-10-22 13:00] VITALS: BP 128/72; BP 148/88; BMI 63.7
[2023-01-30 14:13] VITALS: BP 140/60
--- NOTE | ~2023-02-13 | CT_ITS ---
EXAMINATION: CT ABDOMEN AND PELVIS WITHOUT CONTRAST CLINICAL INFORMATION: Left-sided abdominal pain. History of kidney stones COMPARISON: CT abdomen and pelvis 05/21/2022 TECHNIQUE: Multidetector volumetric imaging was performed from the superior aspect of the liver through the pubic symphysis. Sagittal and coronal reformatted images were obtained on the technologist's workstation. This CT examination was performed using dose optimization techniques as appropriate, variously including the following: *Automated exposure control *Adjustment of mA and/or kV according to patient size (this includes techniques or standardized protocols for targeted exams where dose is matched to indication/reason for exam; i.e. extremities or head) *Use of iterative reconstruction technique DLP: 1439 mGy-cm FINDINGS: LUNG BASES: The lung bases are clear. The heart size is normal. LIVER, GALLBLADDER, AND BILIARY TREE: The liver is normal in size, shape, and attenuation. No focal hepatic lesion or biliary ductal dilatation is present. The gallbladder is unremarkable with no evidence of radiopaque gallstones, gallbladder wall thickening, or obvious pericholecystic inflammatory changes. PANCREAS: Unremarkable. SPLEEN: Unremarkable. ADRENAL GLANDS: Unremarkable. KIDNEYS AND URETERS: The kidneys are normal in size, shape, and attenuation. There are bilateral nonobstructive renal calculi. 3. Moderate to radiopaque calculi lower pole right kidney, punctate 2 mm several calculi in upper pole, two 4 mm mid pole left kidney. There is no caliectasis or hydronephrosis. The ureters are normal caliber. No hydroureter seen.. BLADDER: The bladder is nondistended. No bladder wall thickening seen. GASTROINTESTINAL TRACT: There is scattered stool and gas seen throughout the colon without significant distention. There is moderate stool in the ascending colon and the hepatic flexure. The small bowel loops are normal caliber. Appendix is not visualized. ABDOMINAL WALL: No significant hernia is appreciated. LYMPH NODES: Normal. VASCULAR: Unremarkable. PELVIC VISCERA: The uterus is not visualized likely surgically removed or atrophic. This is 7 mm phlebolith in left pelvis. No free fluid. No abnormal pelvic lymph nodes. OSSEOUS STRUCTURES: Mild ventral spondylosis lower dorsal spine. No aggressive lytic or sclerotic process seen. Bilateral L4-L5 facet joint arthropathy seen. CT/CT abdomen pelvis wo IV con IMPRESSION: 1. Bilateral nonobstructive radiopaque renal calculi. No caliectasis or hydronephrosis. 2. Mild constipation. Fleischner guidelines were followed.
--- NOTE | ~2023-02-13 | XR_ITS ---
EXAMINATION: XR CHEST CLINICAL INFORMATION: Chest pain. COMPARISON: 10/24/2022 chest radiographs. TECHNIQUE: Frontal view of the chest was obtained. FINDINGS: No significant abnormality is noted involving the heart, lungs, mediastinum, bony thorax or soft tissues. XR/XR chest 1V IMPRESSION: No acute cardiopulmonary process.
[2023-02-13 11:49] VITALS: BP 133/87; PULSE 82; RESP 20; TEMP 36.4; O2SAT 98; BMI 59.3
--- NOTE | 2023-02-13 11:49 | ED.GENADULT ---
HPI - General Adult General Chief complaint: Abdominal Pain Stated complaint: abd pain Time Seen by Provider: 02/13/23 16:04 Source: patient Mode of arrival: ambulatory Limitations: no limitations History of Present Illness HPI narrative: Patient 47-year-old obese on Brilinta for acute TN 6 months ago status post stent placement had history of kidney stone comes here for having nausea vomiting for last 3 days had multiple times of vomiting associated with left upper abdominal pain no diarrhea no fever no chills no urinary symptom no hematuria Related Data Home Medications Medication Instructions Recorded Confirmed baclofen 10 mg tablet 10 mg PO TID PRN muscle spasm 11/03/20 11/15/22 albuterol sulfate 90 mcg/actuation 2 puff PO Q4-6H PRN Wheezing 12/01/20 11/15/22 aerosol inhaler (Ventolin HFA) atorvastatin 80 mg tablet (Lipitor) 80 mg PO BEDTIME 12/01/20 11/15/22 fluticasone propionate 50 2 spray intranasal DAILY 12/01/20 11/15/22 mcg/actuation nasal spray,suspension blood pressure test kit-large #1 ea 12/19/20 11/15/22 topiramate 50 mg tablet 50 mg PO BID 12/19/20 11/15/22 cholecalciferol (vitamin D3) 50 50 mcg PO DAILY 03/13/22 11/15/22 mcg (2,000 unit) capsule mirtazapine 7.5 mg tablet 7.5 mg PO BEDTIME 06/17/22 11/15/22 aspirin 81 mg tablet,delayed 81 mg PO DAILY 07/01/22 11/15/22 release lisinopril 30 mg tablet 30 mg PO DAILY 07/01/22 11/15/22 metformin 500 mg tablet,extended 500 mg PO QPM 07/01/22 11/15/22 release 24 hr metoprolol succinate 50 mg 50 mg PO DAILY 07/01/22 11/15/22 tablet,extended release 24 hr omeprazole 20 mg capsule,delayed 20 mg PO DAILY 07/01/22 11/15/22 release ticagrelor 90 mg tablet (Brilinta) 90 mg PO BID 07/02/22 11/15/22 tramadol 50 mg tablet 50 mg PO Q8H PRN severe pain 10/24/22 11/15/22 capsaicin 0.025 % topical cream 1 appl topical BID PRN mild pain 10/25/22 11/15/22 metronidazole 0.75 % topical gel 1 appl topical DAILY PRN Rash 10/25/22 11/15/22 semaglutide 0.25 mg or 0.5 mg (2 0.25 mg subcut QWEEK 10/25/22 11/15/22 mg/1.5 mL) subcutaneous pen injector (Ozempic) albuterol sulfate 2.5 mg/3 mL mg inhalation Q4-6H PRN 11/15/22 11/15/22 (0.083 %) solution for nebulization ezetimibe 10 mg tablet 10 mg PO DAILY 11/15/22 11/15/22 isosorbide mononitrate 30 mg 30 mg PO DAILY 11/15/22 11/15/22 tablet,extended release 24 hr nicotine (polacrilex) 4 mg gum mg PO 11/15/22 11/15/22 Previous Rx's Medication Instructions Recorded pyridoxine (vitamin B6) 100 mg 100 mg PO DAILY 90 days #90 tabs 06/18/22 tablet heparin (porcine) 25,000 unit/250 25,000 unit (250 mL) continuous IV 10/27/22 mL in 0.45 % sodium chloride IV infusion DAILY #1 mL soln allopurinol 100 mg tablet 100 mg PO DAILY 30 days #30 tabs 12/09/22 ondansetron 4 mg disintegrating 4 mg PO Q6-8H PRN nausea and 02/13/23 tablet vomiting #7 tabs Allergies Allergy/AdvReac Type Severity Reaction Status Date / Time penicillin G [PENICILLIN G] Allergy Severe DIFFICULTY Verified 02/13/23 11:53 BREATHING Review of Systems Review of Systems: Yes all other systems are reviewed and are negative [facility] Past Medical History Medical History Asthma CAD (coronary artery disease) Chronic pain Depression Fatty liver Frequent UTI HTN (hypertension) Hyperlipidemia Kidney stone Leukocytosis Mass of throat Migraine Non-ST elevation TN (NSTEMI) Obesity YAMILETH on CPAP PTSD (post-traumatic stress disorder) Smoker Subsequent non-ST elevation myocardial infarction (NSTEMI) within 4 weeks of initial infarction Surgical History H/O: hysterectomy History of breast lump/mass excision History of endometrial ablation History of heart artery stent History of lithotripsy History of lumpectomy of left breast (10/22/21) History of tonsillectomy Hx of colonoscopy Stented coronary artery Family History Family History Father Hypertension Mother Hypertension Osteoporosis Hx of bilateral cataract extraction Paternal Grandmother Diabetes Sister Asthma Maternal Uncle Throat cancer Maternal Aunt Ovarian cancer Breast cancer Social History Social History Household Members: Children Housing: Apartment Are you a primary career guidance counselor to a significant other at home: No Do you presently have visiting nurse or other home services: Yes (daughter is her glass robot operator) Alcohol intake: never Patient Tobacco Use Status: Current everyday Tobacco user Tobacco use type: Cigarette Cigarette Packs Per Day: 1 Years Smoked: 35 +/- Smoked in Last 30 Days: Yes Second Hand Smoke Exposure: No Use of substances other than those prescribed or required for medical reasons: No Advance Directives: No Advance Directives Information Provided: No service: No Current occupational status: unemployed Physical Exam ED Vital Signs: Vital Signs - 24 hr 02/13/23 11:49 02/13/23 16:35 02/13/23 19:27 Temperature 97.6 F Pulse Rate 82 66 61 Respiratory Rate 20 20 18 Blood Pressure 133/87 132/73 146/87 H Pulse Oximetry 98 96 98 Oxygen Delivery Method Room Air Room Air BMI result Body Mass Index 59.3 Appearance: Alert. Oriented X3. No acute distress. Eyes: PERRLA, No Nystagmus ENT: Pharynx normal. Oral Mucosa moist Neck: Normal inspection. Neck supple. CVS: Normal heart rate and rhythm. Pulses normal. Respiratory: No respiratory distress. Equal air entry bilateral, no wheezing/rales/rhonchi Abdomen: Soft and tenderness left upper quadrant Bowel sounds are present, no mass palpable, no CVA tenderness Skin: Skin warm and dry. Normal skin color. Normal skin turgor. Extremities: No lower extremity edema. No calf tenderness Neuro: Oriented X 3. No motor deficit. No sensory deficit.No cerebellar signs , cranial nerves II-XII intact Course Course Course Narrative: This is an RME: Additional HPI, ROS, PE not included below will be deferred to primary provider. 47 year old female with historyof coronary artery disease, NSTEMI, diabetes, obesity, hypertension, presents with LUQ abdominal pain and associated nausea and vomiting x3 days as well as substernal non radiating chest pain since today. Plan: labs, fluids, pain management, EKG, UA, and imaging Medications Administered Discontinued Medications Generic Name Dose Route Start Last Admin Trade Name Freq PRN Reason Stop Dose Admin Sodium Chloride 1,000 mls @ 999 mls/hr 02/13/23 12:00 02/13/23 17:51 Ns IV 02/13/23 13:00 Infused .Q1H1M ANDREW Infusion Sodium Chloride 1,000 mls @ 999 mls/hr 02/13/23 16:13 02/13/23 18:43 Ns IV 02/13/23 17:13 Infused .Q1H1M ONE Infusion Morphine Sulfate 4 mg 02/13/23 11:54 02/13/23 16:52 Morphine Sulfate 4 Mg/Ml Cartridge IVPUSH 02/13/23 11:55 4 mg ONCE ONE Administration Protocol Ondansetron HCl 4 mg 02/13/23 16:13 02/13/23 16:50 Ondansetron Hcl 4 Mg/2 Ml Vial IVPUSH 02/13/23 16:14 4 mg ONCE ONE Administration Medical Decision Making Medical Decision Making [facility] Narrative: Patient with acute vomiting with diffuse abdominal discomfort workup is negative for any acute pathology patient feeling much better after medication will discharge patient home Zofran Differential Diagnosis Differential Diagnoses: The differential diagnosis associated with the presentation includes Renal colic/UTI/small bowel obstruction Lab Data [facility] Lab Attestation statement: I reviewed the patient's lab results. 02/13/23 12:13 02/13/23 12:13 Labs: Lab Results 02/13/23 02/13/23 02/13/23 Range/Units 12:13 12:13 12:13 WBC 14.9 H (4.8-10.8) X10*3/uL RBC 4.32 (4.20-5.50) X10*6/uL Hgb 13.1 (12.0-16.0) g/dl Hct 40.1 (37.0-47.0) % MCV 92.8 (80.0-98.0) fL MCH 30.3 (27.0-33.0) pg MCHC 32.7 (31.0-35.0) g/dl RDW 14.1 (11.0-16.0) % Plt Count 344 (160-400) X10*3/uL MPV 9.9 (9.4-12.3) fL Immature Gran % (Auto) 0.5 H (0.0-0.4) % Neut % (Auto) 60.8 (45-73) % Lymph % (Auto) 28.7 (20-40) % [place] % (Auto) 8.0 (2-11) % Eos % (Auto) 1.6 (0-4) % Baso % (Auto) 0.4 (0-2) % Lymph # (Auto) 4.3 (1.2-4.9) X10*3/uL [place] # (Auto) 1.2 (0.1-1.2) X10*3/uL Eos # (Auto) 0.2 (0.0-0.4) X10*3/uL Baso # (Auto) 0.1 (0.0-0.2) X10*3/uL Abs Immat Gran (auto) 0.08 H (0.00-0.03) X10*3/uL Absolute Neuts (auto) 9.1 H (2.0-8.3) x10*3/uL Absolute Nucleated RBC 0.000 (0.0-0.012) X10*3/uL Nucleated RBC % (auto) 0.0 (0.0-0.2) /100WBC Sodium 139 (135-145) mmol/L Potassium 4.1 (3.3-5.1) mmol/L Chloride 108 (96-108) mmol/L Carbon Dioxide 21 L (22-29) mmol/L Anion Gap 14 (12-20) BUN 14 (9-16) mg/dL Creatinine 0.82 (0.5-1.4) mg/dL Estim Creat Clear Calc 147.6 Estimated GFR > 60 Random Glucose 99 (60-115) mg/dL Calcium 9.3 D (8.4-10.2) mg/dL Magnesium 1.9 (1.6-2.6) mg/dL Total Bilirubin 0.5 (0.0-1.0) mg/dL AST 25 (5-31) U/L ALT 17 (0-31) U/L Alkaline Phosphatase 100 (39-117) U/L Troponin I High Sens (<3.5-17.0) ng/L Total Protein 7.9 (6.5-8.0) g/dL Albumin 3.5 (3.5-5.0) g/dL Triglycerides 81 mg/dL Lipase 13 (8-78) U/L Beta HCG, Quant < 2 mIU/mL Urine Color Urine Appearance Urine pH (5.0-9.0) Ur Specific [place] (1.005-1.025) Urine Protein (Neg-Trace) mg/dL Urine Glucose (UA) (Negative) mg/dL Urine Ketones (Negative) mg/dL Urine Blood (Negative) Urine Nitrite (Negative) Ur Leukocyte Esterase (Negative) 02/13/23 02/13/23 Range/Units 12:13 16:38 WBC (4.8-10.8) X10*3/uL RBC (4.20-5.50) X10*6/uL Hgb (12.0-16.0) g/dl Hct (37.0-47.0) % MCV (80.0-98.0) fL MCH (27.0-33.0) pg MCHC (31.0-35.0) g/dl RDW (11.0-16.0) % Plt Count (160-400) X10*3/uL MPV (9.4-12.3) fL Immature Gran % (Auto) (0.0-0.4) % Neut % (Auto) (45-73) % Lymph % (Auto) (20-40) % [place] % (Auto) (2-11) % Eos % (Auto) (0-4) % Baso % (Auto) (0-2) % Lymph # (Auto) (1.2-4.9) X10*3/uL [place] # (Auto) (0.1-1.2) X10*3/uL Eos # (Auto) (0.0-0.4) X10*3/uL Baso # (Auto) (0.0-0.2) X10*3/uL Abs Immat Gran (auto) (0.00-0.03) X10*3/uL Absolute Neuts (auto) (2.0-8.3) x10*3/uL Absolute Nucleated RBC (0.0-0.012) X10*3/uL Nucleated RBC % (auto) (0.0-0.2) /100WBC Sodium (135-145) mmol/L Potassium (3.3-5.1) mmol/L Chloride (96-108) mmol/L Carbon Dioxide (22-29) mmol/L Anion Gap (12-20) BUN (9-16) mg/dL Creatinine (0.5-1.4) mg/dL Estim Creat Clear Calc Estimated GFR Random Glucose (60-115) mg/dL Calcium (8.4-10.2) mg/dL Magnesium (1.6-2.6) mg/dL Total Bilirubin (0.0-1.0) mg/dL AST (5-31) U/L ALT (0-31) U/L Alkaline Phosphatase (39-117) U/L Troponin I High Sens < 2.7 D (<3.5-17.0) ng/L Total Protein (6.5-8.0) g/dL Albumin (3.5-5.0) g/dL Triglycerides mg/dL Lipase (8-78) U/L Beta HCG, Quant mIU/mL Urine Color Yellow Urine Appearance Clear Urine pH 6.0 (5.0-9.0) Ur Specific [place] 1.025 (1.005-1.025) Urine Protein Negative (Neg-Trace) mg/dL Urine Glucose (UA) Negative (Negative) mg/dL Urine Ketones Trace (Negative) mg/dL Urine Blood Negative (Negative) Urine Nitrite Negative (Negative) Ur Leukocyte Esterase Negative (Negative) Radiology Impression Discussion of test interpretation with radiology: I have reviewed the radiologist's reading. Radiologist Impression: CT/CT abdomen pelvis wo IV con IMPRESSION: 1.? Bilateral nonobstructive radiopaque renal calculi. No caliectasis or hydronephrosis. 2.? Mild constipation. ? Discharge Plan Discharge Clinical Impression: Acute nausea with nonbilious vomiting Patient Disposition: Home, Self-Care Instructions: Acute Nausea and Vomiting (ED) Additional Instructions: Drink plenty of fluids Medicine for nausea and vomiting Follow-up with PCP if not better Prescriptions: New ondansetron 4 mg tablet,disintegrating 4 mg PO Q6-8H PRN (Reason: nausea and vomiting) Qty: 7 0RF No Action allopurinol 100 mg tablet 100 mg PO DAILY 30 Days Qty: 30 1RF albuterol sulfate [Ventolin HFA] 90 mcg/actuation HFA aerosol inhaler 2 puff PO Q4-6H PRN (Reason: Wheezing) fluticasone propionate 50 mcg/actuation spray,suspension 2 spray intranasal DAILY atorvastatin [Lipitor] 80 mg Tablet 80 mg PO BEDTIME omeprazole 20 mg capsule,delayed release(DR/EC) 20 mg PO DAILY lisinopril 30 mg tablet 30 mg PO DAILY metformin 500 mg tablet extended release 24 hr 500 mg PO QPM capsaicin 0.025 % cream 1 appl topical BID PRN (Reason: mild pain) metronidazole 0.75 % gel 1 appl topical DAILY PRN (Reason: Rash) Ozempic 0.25 mg or 0.5 mg(2 mg/1.5 mL) pen injector 0.25 mg subcut QWEEK heparin(porcine) in 0.45% NaCl 25,000 unit/250 mL Parenteral Solution 25,000 unit continuous IV infusion DAILY Qty: 1 0RF Rx Instructions: continue current rate ,moniter pt/ptt as per protocol baclofen 10 mg tablet 10 mg PO TID PRN (Reason: muscle spasm) topiramate 50 mg tablet 50 mg PO BID (DME) blood pressure test kit-large Kit See Rx Instructions .ROUTE DIRECTED Qty: 1 Rx Instructions: As directed tramadol 50 mg tablet 50 mg PO Q8H PRN (Reason: severe pain) cholecalciferol (vitamin D3) 50 mcg (2,000 unit) capsule 50 mcg PO DAILY mirtazapine 7.5 mg tablet 7.5 mg PO BEDTIME pyridoxine (vitamin B6) 100 mg tablet 100 mg PO DAILY 90 Days Qty: 90 1RF Brilinta 90 mg tablet 90 mg PO BID metoprolol succinate 50 mg tablet extended release 24 hr 50 mg PO DAILY aspirin 81 mg tablet,delayed release (DR/EC) 81 mg PO DAILY isosorbide mononitrate 30 mg tablet extended release 24 hr 30 mg PO DAILY ezetimibe 10 mg tablet 10 mg PO DAILY albuterol sulfate 2.5 mg /3 mL (0.083 %) solution for nebulization inhalation Q4-6H PRN nicotine (polacrilex) 4 mg gum PO Interventions: ED Discharge Assessment Last Done: 02/13/23 19:43 Discharge Date/Time: 02/13/23 19:44
--- NOTE | 2023-02-13 11:50 | ECG_ITS ---
Test Reason : CHEST PAIN Blood Pressure : / mmHG Vent. Rate : 077 BPM Atrial Rate : 077 BPM P-R Int : 190 ms QRS Dur : 080 ms QT Int : 370 ms P-R-T Axes : 057 051 027 degrees QTc Int : 418 ms Normal sinus rhythm Normal ECG When compared with ECG of 27-OCT-2022 14:52, No significant change was found Referred By: Melvi Posey Electronically Signed By:Brent Aleman
[2023-02-13 12:17] LABS: MANUAL DIFF FLAG NO
[2023-02-13 12:21] LABS: Basophils Absolute Auto 0.1 X10*3/uL (0.0-0.2); Basophils Percent Auto 0.4 % (0-2); Eosinophils Absolute Auto 0.2 X10*3/uL (0.0-0.4); Eosinophils Percent Auto 1.6 % (0-4); Hematocrit 40.1 % (37.0-47.0); Hemoglobin 13.1 g/dl (12.0-16.0); Imm Gran Abs Auto 0.08 X10*3/uL (0.00-0.03); Imm Gran Pct Auto 0.5 % (0.0-0.4); Lymphocytes Absolute Auto 4.3 X10*3/uL (1.2-4.9); Lymphocytes Percent Auto 28.7 % (20-40); Mean Corpuscular HGB Conc 32.7 g/dl (31.0-35.0); Mean Corpuscular Hemoglobin 30.3 pg (27.0-33.0); Mean Corpuscular Volume 92.8 fL (80.0-98.0); Mean Platelet Volume 9.9 fL (9.4-12.3); Monocytes Absolute Auto 1.2 X10*3/uL (0.1-1.2); Neutrophils Absolute Auto 9.1 x10*3/uL (2.0-8.3); Neutrophils Percent Auto 60.8 % (45-73); Platelet Count 344 X10*3/uL (160-400); Red Blood Count 4.32 X10*6/uL (4.20-5.50); Red Cell Distribution Width 14.1 % (11.0-16.0); White Blood Count 14.9 X10*3/uL (4.8-10.8)
[2023-02-13 12:50] LABS: Alanine Aminotransferase 17 U/L (0-31); Albumin Level 3.5 g/dL (3.5-5.0); Alkaline Phosphatase 100 U/L (39-117); Anion Gap 14 (12-20); Aspartate Amino Transferase 25 U/L (5-31); Bilirubin Total 0.5 mg/dL (0.0-1.0); Blood Urea Nitrogen 14 mg/dL (9-16); Calcium 9.3 mg/dL (8.4-10.2); Carbon Dioxide 21 mmol/L (22-29); Chloride 108 mmol/L (96-108); Creatinine Clr Calc Pharmacy 147.6; Estimated Glomerular Filt Rate > 60; Glucose Random 99 mg/dL (60-115); HCG Quantitative < 2 mIU/mL; Lipase 13 U/L (8-78); Magnesium 1.9 mg/dL (1.6-2.6); Potassium 4.1 mmol/L (3.3-5.1); Sodium 139 mmol/L (135-145); Total Protein 7.9 g/dL (6.5-8.0); Triglycerides 81 mg/dL; Troponin-I High Sensitivity < 2.7 ng/L (<3.5-17.0)
[2023-02-13 16:35] VITALS: BP 132/73; PULSE 66; RESP 20; O2SAT 96
[2023-02-13 16:45] LABS: Appearance Urine Clear; Color Urine Yellow; Glucose Urine UA Negative (Negative); Leukocyte Esterase Urine Negative (Negative); Nitrite Urine Negative (Negative); Specific Gravity - Urine 1.025 (1.005-1.025); Urine Blood Negative (Negative); Urine Ketones Trace mg/dL (Negative); Urine Protein Negative (Neg-Trace)
[2023-02-13] MEDS: ondansetron HCL 4 MG/2 ML VIAL IVPUSH (16:50)
[2023-02-13] MEDS: 0.9 % Sodium Chloride 1,000 ML 999 ML IV ×2 (16:50→17:51)
[2023-02-13] MEDS: Morphine Sulfate 4 MG/ML CARTRIDGE IVPUSH (16:52)
[2023-02-13 19:27] VITALS: BP 146/87; PULSE 61; RESP 18; O2SAT 98
== END 2023-02-13 19:44 | disposition home or self-care (01) ==
PROVIDERS: Physician Assistant; Emergency Provider Internal Medicine; PCP Family Medicine
DX: R11.2 Nausea with vomiting, unspecified (principal); R07.89 Other chest pain; R10.2 Pelvic and perineal pain; F17.210 Nicotine dependence, cigarettes, uncomplicated; Z71.6 Tobacco abuse counseling; Z79.899 Other long term (current) drug therapy
CPT/HCPCS: 36415; 71045; 74176; 80053; 81003; 83690; 83735; 84478; 84484; 84702; 85025; 93005; 96361; 96374; 96375; 99284; 99285; J2270; J2405

== ENCOUNTER 2023-02-17 08:49 | Emergency (ER) | payer OTHER, SELFPAY ==
[2022-10-22 13:00] VITALS: BP 128/72; BP 148/88; BMI 63.7
[2023-01-30 14:13] VITALS: BP 140/60
[2023-02-17 08:53] VITALS: BP 128/67; PULSE 82; RESP 18; TEMP 36.7; O2SAT 99; BMI 44.3
--- NOTE | 2023-02-17 14:41 | ED.ABDPAIN ---
HPI - Abdominal Pain General Chief Complaint: Abdominal Pain Stated Complaint: Upper abd pain/Vomiting Time Seen by Provider: 02/17/23 13:02 History of Present Illness HPI narrative: Patient is a 47-year-old female presents today with having abdominal pain. The pain is in the epigastric area. Radiates to the lower abdomen. History of diabetes, hypertension. History of coronary artery disease. History of NSTEMI. Patient not on blood thinners. Not associated with any diaphoresis. No fever no chills. Denies any pain on urination. Positive passing gas. Patient previously had hernia repair in the right inguinal area. Also previous history of hysterectomy. Was seen 4 days prior for similar abdominal pain. At that time patient had a full CT scan done. Patient claims now her pain is extreme. Continuing. Non resolving. Related to food. Patient from home. Denies any recreational drug use. Denies any tobacco. Denies any use of marijuana. Related Data Home Medications Medication Instructions Recorded Confirmed baclofen 10 mg tablet 10 mg PO TID PRN muscle spasm 11/03/20 11/15/22 albuterol sulfate 90 mcg/actuation 2 puff PO Q4-6H PRN Wheezing 12/01/20 11/15/22 aerosol inhaler (Ventolin HFA) atorvastatin 80 mg tablet (Lipitor) 80 mg PO BEDTIME 12/01/20 11/15/22 fluticasone propionate 50 2 spray intranasal DAILY 12/01/20 11/15/22 mcg/actuation nasal spray,suspension blood pressure test kit-large #1 ea 12/19/20 11/15/22 topiramate 50 mg tablet 50 mg PO BID 12/19/20 11/15/22 cholecalciferol (vitamin D3) 50 50 mcg PO DAILY 03/13/22 11/15/22 mcg (2,000 unit) capsule mirtazapine 7.5 mg tablet 7.5 mg PO BEDTIME 06/17/22 11/15/22 aspirin 81 mg tablet,delayed 81 mg PO DAILY 07/01/22 11/15/22 release lisinopril 30 mg tablet 30 mg PO DAILY 07/01/22 11/15/22 metformin 500 mg tablet,extended 500 mg PO QPM 07/01/22 11/15/22 release 24 hr metoprolol succinate 50 mg 50 mg PO DAILY 07/01/22 11/15/22 tablet,extended release 24 hr omeprazole 20 mg capsule,delayed 20 mg PO DAILY 07/01/22 11/15/22 release ticagrelor 90 mg tablet (Brilinta) 90 mg PO BID 07/02/22 11/15/22 tramadol 50 mg tablet 50 mg PO Q8H PRN severe pain 10/24/22 11/15/22 capsaicin 0.025 % topical cream 1 appl topical BID PRN mild pain 10/25/22 11/15/22 metronidazole 0.75 % topical gel 1 appl topical DAILY PRN Rash 10/25/22 11/15/22 semaglutide 0.25 mg or 0.5 mg (2 0.25 mg subcut QWEEK 10/25/22 11/15/22 mg/1.5 mL) subcutaneous pen injector ([employer]) albuterol sulfate 2.5 mg/3 mL mg inhalation Q4-6H PRN 11/15/22 11/15/22 (0.083 %) solution for nebulization ezetimibe 10 mg tablet 10 mg PO DAILY 11/15/22 11/15/22 isosorbide mononitrate 30 mg 30 mg PO DAILY 11/15/22 11/15/22 tablet,extended release 24 hr nicotine (polacrilex) 4 mg gum mg PO 11/15/22 11/15/22 Previous Rx's Medication Instructions Recorded pyridoxine (vitamin B6) 100 mg 100 mg PO DAILY 90 days #90 tabs 06/18/22 tablet heparin (porcine) 25,000 unit/250 25,000 unit (250 mL) continuous IV 10/27/22 mL in 0.45 % sodium chloride IV infusion DAILY #1 mL soln allopurinol 100 mg tablet 100 mg PO DAILY 30 days #30 tabs 12/09/22 ondansetron 4 mg disintegrating 4 mg PO Q6-8H PRN nausea and 02/13/23 tablet vomiting #7 tabs ondansetron 4 mg disintegrating 4 mg PO TID PRN nausea and 02/17/23 tablet vomiting 5 days #10 tabs Allergies Allergy/AdvReac Type Severity Reaction Status Date / Time penicillin G [PENICILLIN G] Allergy Severe DIFFICULTY Verified 02/13/23 11:53 BREATHING Review of Systems Review of Systems Positive abdominal pain Yes all other systems are reviewed and are negative [facility] Past Medical History Attestation statement: The following information was validated with the patient. Medical History Asthma CAD (coronary artery disease) Chronic pain Depression Fatty liver Frequent UTI HTN (hypertension) Hyperlipidemia Kidney stone Leukocytosis Mass of throat Migraine Non-ST elevation HI (NSTEMI) Obesity YAMILETH on CPAP PTSD (post-traumatic stress disorder) Smoker Subsequent non-ST elevation myocardial infarction (NSTEMI) within 4 weeks of initial infarction Surgical History H/O: hysterectomy History of breast lump/mass excision History of endometrial ablation History of heart artery stent History of lithotripsy History of lumpectomy of left breast (10/22/21) History of tonsillectomy Hx of colonoscopy Stented coronary artery Family History Family History Father Hypertension Mother Hypertension Osteoporosis Hx of bilateral cataract extraction Paternal Grandmother Diabetes Sister Asthma Maternal Uncle Throat cancer Maternal Aunt Ovarian cancer Breast cancer Social History Social History Household Members: Children Housing: Apartment Are you a primary medicare nurse to a significant other at home: No Do you presently have visiting nurse or other home services: Yes (daughter is her c.o.d. biller) Alcohol intake: never Patient Tobacco Use Status: Current everyday Tobacco user Tobacco use type: Cigarette Cigarette Packs Per Day: 1 Years Smoked: 35 +/- Second Hand Smoke Exposure: No Advance Directives: No Advance Directives Information Provided: No service: No Current occupational status: unemployed Physical Exam ED Vital Signs: Vital Signs - 24 hr 02/17/23 08:53 Temperature 98.1 F Pulse Rate 82 Respiratory Rate 18 Blood Pressure 128/67 Pulse Oximetry 99 Oxygen Delivery Method Room Air BMI result Body Mass Index 44.3 Appearance: Alert. Oriented X3. No acute distress. Eyes: Pupils equal, round and reactive to light. ENT: Pharynx normal. Neck: Normal inspection. Neck supple. No lymph nodes noted. No crepitus CVS: Normal heart rate and rhythm. Pulses normal. Normal S1 and S2 Respiratory: No respiratory distress. Breath sounds normal. No Wheezing. No rales Abdomen: Soft and nontender. No rigidity. No distention. good BS x4 Skin: Skin warm and dry. Normal skin color. Normal skin turgor. Extremities: No lower extremity edema. Neurovascular intact to all extremities. No Lacerations. No Rash Neuro: Oriented X 3. No motor deficit. No sensory deficit. Moving all extermities. No slurred speech Medical Decision Making Medical Decision Making MDM Narrative: Patient complaining of extreme pain. Radiating from the epigastric area to the suprapubic area. Passing gas. CT scan of the abdomen pelvis was grossly negative again for any acute evidence of obstruction abscess perforation. Understood patient had a CT scan done a couple days ago. But because patient has such extreme pain the 2nd CT was ordered. Patient's electrolytes are unremarkable. EKG did not show sign of acute myocardial infarction. Patient's troponin was also negative. Making ACS unlikely. Patient's lipase was normal. No evidence of pancreatitis. LFTs are normal no evidence for biliary disease. No evidence for kidney stone on CT. Patient had no evidence of appendicitis on CT. Status post hysterectomy not related issue. Will discharge patient home. Have patient follow-up on an outpatient basis. Zofran for nausea. Continue Protonix on an outpatient basis Lab Data [facility] Lab Attestation statement: I reviewed the patient's lab results. 02/17/23 09:04 02/17/23 09:04 Labs: Lab Results 02/17/23 02/17/23 02/17/23 Range/Units 09:04 09:04 09:04 WBC 12.2 H (4.8-10.8) X10*3/uL RBC 4.28 (4.20-5.50) X10*6/uL Hgb 13.0 (12.0-16.0) g/dl Hct 39.5 (37.0-47.0) % MCV 92.3 (80.0-98.0) fL MCH 30.4 (27.0-33.0) pg MCHC 32.9 (31.0-35.0) g/dl RDW 14.1 (11.0-16.0) % Plt Count 333 (160-400) X10*3/uL MPV 9.8 (9.4-12.3) fL Immature Gran % (Auto) 0.5 H (0.0-0.4) % Neut % (Auto) 62.2 (45-73) % Lymph % (Auto) 27.9 (20-40) % Callahan % (Auto) 7.0 (2-11) % Eos % (Auto) 2.0 (0-4) % Baso % (Auto) 0.4 (0-2) % Lymph # (Auto) 3.4 (1.2-4.9) X10*3/uL Callahan # (Auto) 0.9 (0.1-1.2) X10*3/uL Eos # (Auto) 0.3 (0.0-0.4) X10*3/uL Baso # (Auto) 0.1 (0.0-0.2) X10*3/uL Abs Immat Gran (auto) 0.06 H (0.00-0.03) X10*3/uL Absolute Neuts (auto) 7.6 (2.0-8.3) x10*3/uL Absolute Nucleated RBC 0.000 (0.0-0.012) X10*3/uL Nucleated RBC % (auto) 0.0 (0.0-0.2) /100WBC Sodium 139 (135-145) mmol/L Potassium 3.9 (3.3-5.1) mmol/L Chloride 106 (96-108) mmol/L Carbon Dioxide 23 (22-29) mmol/L Anion Gap 14 (12-20) BUN 11 (9-16) mg/dL Creatinine 0.95 (0.5-1.4) mg/dL Estim Creat Clear Calc 109.9 Estimated GFR > 60 Random Glucose 127 H (60-115) mg/dL Calcium 9.4 (8.4-10.2) mg/dL Total Bilirubin 0.8 (0.0-1.0) mg/dL Direct Bilirubin 0.3 (0.0-0.5) mg/dL AST 18 (5-31) U/L ALT 19 (0-31) U/L Alkaline Phosphatase 98 (39-117) U/L Troponin I High Sens < 2.7 (<3.5-17.0) ng/L Total Protein 7.7 (6.5-8.0) g/dL Albumin 3.6 (3.5-5.0) g/dL Lipase 10 (8-78) U/L Independent Interpretation I performed an independent interpretation of an: EKG Interpretation: My interpretation of patient's EKG showed a sinus rhythm heart rate is 70 SD QRS QT within normal limits there is nonspecific T-wave flattening noted diffusely. Chronic Conditions Patient?s care impacted by: Hypertension Medications Administered Discontinued Medications Generic Name Dose Route Start Last Admin Trade Name Freq PRN Reason Stop Dose Admin Hydromorphone HCl 1 mg 02/17/23 14:13 02/17/23 14:36 Hydromorphone Hcl 1 Mg/Ml Syringe IVPUSH 02/17/23 14:14 1 mg ONCE ONE Administration Protocol Sodium Chloride 1,000 mls @ 999 mls/hr 02/17/23 14:15 02/17/23 14:37 Ns IV 02/17/23 15:15 999 mls/hr .Q1H1M ANDREW Administration Iohexol 100 ml 02/17/23 15:09 02/17/23 15:10 Iohexol 350 Mg/Ml 100 Ml Infus..Btl IV 02/17/23 15:10 100 ml ONCE ONE Administration Discharge Plan Discharge Clinical Impression: Abdominal pain Patient Disposition: Home, Self-Care Instructions: Abdominal Pain (ED) Prescriptions: New ondansetron 4 mg tablet,disintegrating 4 mg PO TID PRN (Reason: nausea and vomiting) 5 Days Qty: 10 0RF No Action allopurinol 100 mg tablet 100 mg PO DAILY 30 Days Qty: 30 1RF albuterol sulfate [Ventolin HFA] 90 mcg/actuation HFA aerosol inhaler 2 puff PO Q4-6H PRN (Reason: Wheezing) fluticasone propionate 50 mcg/actuation spray,suspension 2 spray intranasal DAILY atorvastatin [Lipitor] 80 mg Tablet 80 mg PO BEDTIME omeprazole 20 mg capsule,delayed release(DR/EC) 20 mg PO DAILY lisinopril 30 mg tablet 30 mg PO DAILY metformin 500 mg tablet extended release 24 hr 500 mg PO QPM capsaicin 0.025 % cream 1 appl topical BID PRN (Reason: mild pain) metronidazole 0.75 % gel 1 appl topical DAILY PRN (Reason: Rash) Ozempic 0.25 mg or 0.5 mg(2 mg/1.5 mL) pen injector 0.25 mg subcut QWEEK heparin(porcine) in 0.45% NaCl 25,000 unit/250 mL Parenteral Solution 25,000 unit continuous IV infusion DAILY Qty: 1 0RF Rx Instructions: continue current rate ,moniter pt/ptt as per protocol ondansetron 4 mg tablet,disintegrating 4 mg PO Q6-8H PRN (Reason: nausea and vomiting) Qty: 7 0RF baclofen 10 mg tablet 10 mg PO TID PRN (Reason: muscle spasm) topiramate 50 mg tablet 50 mg PO BID (DME) blood pressure test kit-large Kit See Rx Instructions .ROUTE DIRECTED Qty: 1 Rx Instructions: As directed tramadol 50 mg tablet 50 mg PO Q8H PRN (Reason: severe pain) cholecalciferol (vitamin D3) 50 mcg (2,000 unit) capsule 50 mcg PO DAILY mirtazapine 7.5 mg tablet 7.5 mg PO BEDTIME pyridoxine (vitamin B6) 100 mg tablet 100 mg PO DAILY 90 Days Qty: 90 1RF Brilinta 90 mg tablet 90 mg PO BID metoprolol succinate 50 mg tablet extended release 24 hr 50 mg PO DAILY aspirin 81 mg tablet,delayed release (DR/EC) 81 mg PO DAILY isosorbide mononitrate 30 mg tablet extended release 24 hr 30 mg PO DAILY ezetimibe 10 mg tablet 10 mg PO DAILY albuterol sulfate 2.5 mg /3 mL (0.083 %) solution for nebulization inhalation Q4-6H PRN nicotine (polacrilex) 4 mg gum PO Referrals: Carmen Bertrand DO [Primary Care Provider] - 02/19/23 Print Language: Belarusian
[2023-02-17 16:00] VITALS: BP 142/76; PULSE 53; RESP 16; TEMP 37; O2SAT 99
--- NOTE | 2023-02-17 17:53 | PC.NURSE ---
PO CHALLENGE WAS GIVEN, PT IS DROWSY BUT AROUSABLE, PLAN IS FOR DISCHARGE HOME
== END 2023-02-17 18:29 | disposition home or self-care (01) ==
PROVIDERS: Emergency Provider Emergency Medicine Emergency Medical Services; PCP Family Medicine
DX: R10.9 Unspecified abdominal pain (principal); E11.9 Type 2 diabetes mellitus without complications; I10 Essential (primary) hypertension; E78.5 Hyperlipidemia, unspecified; F17.210 Nicotine dependence, cigarettes, uncomplicated; Z79.84 Long term (current) use of oral hypoglycemic drugs; Z79.899 Other long term (current) drug therapy; Z79.82 Long term (current) use of aspirin
CPT/HCPCS: 36415; 74177; 80053; 82248; 83690; 84484; 85025; 93005; 96361; 96374; 99285; J1170; Q9967

== ENCOUNTER 2023-02-21 14:01 | Outpatient (REF) | payer OTHER, SELFPAY ==
[2022-10-22 13:00] VITALS: BP 128/72; BP 148/88; BMI 63.7
[2023-01-30 14:13] VITALS: BP 140/60
[2023-02-21 15:19] LABS: Alanine Aminotransferase 17 U/L (0-31); Albumin Level 3.5 g/dL (3.5-5.0); Alkaline Phosphatase 94 U/L (39-117); Anion Gap 12 (12-20); Aspartate Amino Transferase 14 U/L (5-31); Bilirubin Direct 0.2 mg/dL (0.0-0.5); Bilirubin Total 0.4 mg/dL (0.0-1.0); Blood Urea Nitrogen 12 mg/dL (9-16); Calcium 9.6 mg/dL (8.4-10.2); Carbon Dioxide 22 mmol/L (22-29); Chloride 110 mmol/L (96-108); Cholesterol 96 mg/dL; Estimated Glomerular Filt Rate > 60; Glucose Random 123 mg/dL (60-115); HDL Cholesterol 36 mg/dL; LDL Cholesterol Calculated 47 mg/dl; Potassium 3.6 mmol/L (3.3-5.1); Sodium 140 mmol/L (135-145); Total Protein 7.3 g/dL (6.5-8.0); Triglycerides 66 mg/dL
[2023-02-21 15:28] LABS: Free T4 (Free Thyroxine) 0.68 ng/dL (0.71-1.85); Thyroid Stimulating Hormone 1.82 uIU/mL (0.32-4.0); Vitamin D 25-OH Total 16.6 ng/mL (>30)
== END 2023-02-21 14:02 | disposition home or self-care (01) ==
LOC: HO.LAB 14:01
PROVIDERS: PCP Family Medicine; Visit Provider Family Medicine
DX: R10.13 Epigastric pain (principal); I10 Essential (primary) hypertension; Z20.2 Contact with and (suspected) exposure to infections with a predominantly sexual mode of transmission; R73.03 Prediabetes
CPT/HCPCS: 0353U; 80048; 80061; 80076; 82043; 82105; 82306; 83036; 84439; 84443; 85025; 86706; 86780; 86803; 87340; 87389; 87507; 89055

== ENCOUNTER 2023-02-27 15:10 | Outpatient (REF) | payer OTHER, SELFPAY ==
[2022-10-22 13:00] VITALS: BP 128/72; BP 148/88; BMI 63.7
[2023-01-30 14:13] VITALS: BP 140/60
[2023-02-27 18:12] LABS: Leukocytes Stool Qualitative NEGATIVE (NEGATIVE)
[2023-02-28 07:56] LABS: Adenovirus F 40/41 Not Detected (Not Detect.); Astrovirus Not Detected (Not Detect.); Campylobacter Not Detected (Not Detect.); Cryptosporidium Not Detected (Not Detect.); Cyclospora cayetanensis Not Detected (Not Detect.); E. coli EAEC Not Detected (Not Detect.); E. coli EPEC Not Detected (Not Detect.); E. coli ETEC Not Detected (Not Detect.); E. coli STEC Not Detected (Not Detect.); Entamoeba histolytica Not Detected (Not Detect.); Giardia lamblia Not Detected (Not Detect.); Norovirus GI/GII Not Detected (Not Detect.); Plesiomonas shigelloides Not Detected (Not Detect.); Rotavirus A Not Detected (Not Detect.); Salmonella Not Detected (Not Detect.); Sapovirus Not Detected (Not Detect.); Shigella sp./EIEC Not Detected (Not Detect.); Vibrio Not Detected (Not Detect.); Vibrio Cholerae Not Detected (Not Detect.); Yersinia enterocolitica Not Detected (Not Detect.)
== END 2023-02-27 15:11 | disposition home or self-care (01) ==
LOC: HO.HHCLNP 15:10
PROVIDERS: Visit Provider Internal Medicine
DX: R10.10 Upper abdominal pain, unspecified (principal)
CPT/HCPCS: 87507; 89055

== ENCOUNTER 2023-03-11 18:38 | Outpatient (REF) | payer OTHER, SELFPAY ==
[2022-10-22 13:00] VITALS: BP 128/72; BP 148/88; BMI 63.7
[2023-01-30 14:13] VITALS: BP 140/60
== END 2023-03-11 18:39 | disposition home or self-care (01) ==
LOC: HO.HHCLNP 18:38
PROVIDERS: Visit Provider Family Medicine
DX: N61.1 Abscess of the breast and nipple (principal)
CPT/HCPCS: 87070; 87491; 87591

== ENCOUNTER 2023-03-13 13:44 | Outpatient (REF) | payer OTHER, SELFPAY ==
[2022-10-22 13:00] VITALS: BP 128/72; BP 148/88; BMI 63.7
[2023-01-30 14:13] VITALS: BP 140/60
[2023-03-13 16:08] LABS: MANUAL DIFF FLAG NO
[2023-03-13 16:22] LABS: Basophils Absolute Auto 0.1 X10*3/uL (0.0-0.2); Basophils Percent Auto 0.4 % (0-2); Eosinophils Absolute Auto 0.3 X10*3/uL (0.0-0.4); Hematocrit 36.3 % (37.0-47.0); Hemoglobin 11.5 g/dl (12.0-16.0); Imm Gran Pct Auto 0.7 % (0.0-0.4); Lymphocytes Absolute Auto 3.8 X10*3/uL (1.2-4.9); Lymphocytes Percent Auto 27.8 % (20-40); Mean Corpuscular HGB Conc 31.7 g/dl (31.0-35.0); Mean Corpuscular Hemoglobin 29.9 pg (27.0-33.0); Mean Corpuscular Volume 94.3 fL (80.0-98.0); Mean Platelet Volume 10.4 fL (9.4-12.3); Monocytes Absolute Auto 0.8 X10*3/uL (0.1-1.2); Monocytes Percent Auto 5.5 % (2-11); Neutrophils Absolute Auto 8.8 x10*3/uL (2.0-8.3); Neutrophils Percent Auto 63.6 % (45-73); Platelet Count 385 X10*3/uL (160-400); Red Blood Count 3.85 X10*6/uL (4.20-5.50); Red Cell Distribution Width 14.6 % (11.0-16.0); White Blood Count 13.8 X10*3/uL (4.8-10.8)
[2023-03-13 17:21] LABS: Iron 35 mcg/dL (30-160); Percent Iron Saturation 17 % (15-50); Total Iron Binding Capacity 210 mcg/dL (228-428); Unsaturated Iron Binding 175 ug/dL
[2023-03-13 17:41] LABS: Ferritin 236 ng/mL (10-250)
== END 2023-03-13 13:45 | disposition home or self-care (01) ==
LOC: HO.HHCL 13:44
PROVIDERS: Visit Provider Family Medicine
DX: D72.829 Elevated white blood cell count, unspecified (principal); I10 Essential (primary) hypertension; R31.29 Other microscopic hematuria
CPT/HCPCS: 36415; 82728; 83540; 85025

== ENCOUNTER → 2023-03-27 08:00 | Outpatient (BNV) | payer OTHER, SELFPAY ==
[2022-10-22 13:00] VITALS: BP 128/72; BP 148/88; BMI 63.7
[2023-01-30 14:13] VITALS: BP 140/60
== END ==
PROVIDERS: PCP Family Medicine; Visit Provider Radiology Diagnostic Radiology
DX: Z12.31 Encounter for screening mammogram for malignant neoplasm of breast (principal)
CPT/HCPCS: 77063; 77067

== ENCOUNTER 2023-03-27 08:11 | Outpatient (REF) | payer OTHER, SELFPAY ==
[2022-10-22 13:00] VITALS: BP 128/72; BP 148/88; BMI 63.7
[2023-01-30 14:13] VITALS: BP 140/60
== END 2023-03-27 08:12 | disposition home or self-care (01) ==
LOC: HO.MAMMO 08:11
PROVIDERS: PCP Family Medicine; Visit Provider Family Medicine
DX: Z12.31 Encounter for screening mammogram for malignant neoplasm of breast (principal)
CPT/HCPCS: 77063; 77067

== ENCOUNTER 2023-04-14 14:24 | Outpatient (AMB) | payer OTHER, SELFPAY ==
[2022-10-22 13:00] VITALS: BP 128/72; BP 148/88; BMI 63.7
[2023-01-30 14:13] VITALS: BP 140/60
--- NOTE | 2023-04-14 14:27 | MHC.OFFVIS ---
Intake Intake Visit Reasons: Calculus of Kidney- follow up Intake Note: Patient is present for follow up nephrolithiasis Urology Medication: allopurinol/Vitamin B6 Blood Thinner: aspirin Piano Mover Required: No Accompanied by: Self / Same As Patient Allergies penicillin G [PENICILLIN G] Allergy (Severe, Verified 04/14/23 15:37) DIFFICULTY BREATHING Medication List - Last Reconciled 04/14/23 by BENI Win- albuterol sulfate 90 mcg/actuation (Ventolin HFA) 2 puffs PO Q4-6H PRN albuterol sulfate mg inhalation Q4-6H PRN allopurinol 100 mg PO DAILY 30 days aspirin 81 mg PO DAILY atorvastatin (Lipitor) 80 mg PO BEDTIME baclofen 10 mg PO TID PRN blood pressure test kit-large As directed capsaicin 0.025% 1 appl topical BID PRN cholecalciferol (vitamin D3) 50 mcg PO DAILY ezetimibe 10 mg PO DAILY fluticasone propionate 50 mcg/actuation 2 sprays intranasal DAILY heparin(porcine) in 0.45% NaCl 25,000 unit/250 mL 25,000 units (250 mL) continuous IV infusion DAILY isosorbide mononitrate ER 30 mg PO DAILY lisinopril 30 mg PO DAILY metformin ER 500 mg PO QPM metoprolol succinate ER 50 mg PO DAILY metronidazole 0.75% 1 appl topical DAILY PRN mirtazapine 7.5 mg PO BEDTIME nicotine (polacrilex) mg PO omeprazole 20 mg PO DAILY ondansetron 4 mg PO Q6-8H PRN ondansetron 4 mg PO TID PRN 5 days pyridoxine (vitamin B6) 100 mg PO DAILY 90 days semaglutide (Ozempic) 0.25 mg subcut QWEEK semaglutide (Ozempic) 1 mg subcut QWEEK ticagrelor (Brilinta) 90 mg PO BID topiramate 50 mg PO BID tramadol 50 mg PO Q8H PRN HPI HPI Comments History of Present Illness Details Blaire is a pleasant 48 year old Yoruba speaking patient of Dr. Bertrand. She has a past medical history of asthma, coronary artery disease, chronic pain, depression, fatty liver, hypertension, nephrolithiasis, migraines, non ST-elevation TN, obesity, obstructive sleep apnea on CPAP, PTSD and nicotine dependence. She presents to the office today for follow-up of her nephrolithiasis and recurrent urinary tract infections. In discussion with the patient today she reports to be doing and feeling well. Recent CT results reviewed with the patient today. There are multiple small nonobstructive bilateral renal stones. No hydronephrosis. No ureteral calculus is seen. No change in the renal calculi since prior CT. Both kidneys are normal in size and contour with normal enhancement of the cortex. When asked she denies any urological issues or concerns at this time. She discusses her frustration with side effects of Ozempic. She otherwise denies hematuria, dysuria, foul smelling urine, changes to urinary stream, flank pain, fever, and or chills. She denies any bothersome urinary issues or concerns at this time. She reports compliance with vitamin B6 and alluprinol as prescribed. She continues to drink plenty of water daily. In office urinalysis results reviewed with the patient today. PREVIOUS OFFICE INFORMATION----- Nephrolithiasis September 2020 [facility] distal left ureteric stone with mild hydro in bilateral punctate stones 6-7 in each kidney - January 2022 right proximal ureteric stone Recent stone passage right proximal ureter 06/08 Imaging reviewed no further stones seen in kidney Continue with vitamin B6 and 6 month follow-up They are here for - further evaluation for nephrolithiasis, Urolithiasis was diagnosed - number of years ago The patient previously had kidney stones whose composition w - 03/08 mixed calcium oxalate 80% monohydrate Laboratory investigations include - prior usage of Topamax, diabetic 24 Hour urine evaluation - none on file Prior treatment(s) include - has had ESWL bilateral - 03/08 right ureteroscopy Prior imaging includes - September 2020 - a CT - stone protocol - left 4 mm distal stone with mild hydronephrosis. Punctate stones 1-2 mm 5-6 in each kidney - 10/08 renal ultrasound follow-up right 3 mm stone, left no stones seen - 03/08 right proximal ureteric stone - 06/08 right proximal ureteric stone Current therapeutic plan will be - to continue with imaging surveillance - General advice to maintain good fluid intake for urine greater than 1.5 L per day, - reduce salt and reduce protein and acid loads was provided, add lemon juice [address] [facility] Medical History Asthma CAD (coronary artery disease) Chronic pain Depression Fatty liver Frequent UTI HTN (hypertension) Hyperlipidemia Kidney stone Leukocytosis Mass of throat Migraine Non-ST elevation TN (NSTEMI) Obesity YAMILETH on CPAP PTSD (post-traumatic stress disorder) Smoker Subsequent non-ST elevation myocardial infarction (NSTEMI) within 4 weeks of initial infarction Surgical History H/O: hysterectomy History of breast lump/mass excision History of endometrial ablation History of heart artery stent History of lithotripsy History of lumpectomy of left breast (10/22/21) History of tonsillectomy Hx of colonoscopy Stented coronary artery Family History Father Hypertension Mother Hypertension Osteoporosis Hx of bilateral cataract extraction Paternal Grandmother Diabetes Sister Asthma Maternal Uncle Throat cancer Maternal Aunt Ovarian cancer Breast cancer Social History Household Members: Children Housing: Apartment Are you a primary senior resident care director to a significant other at home: No Do you presently have visiting nurse or other home services: Yes (daughter is her carriage setter) Alcohol intake: never Patient Tobacco Use Status: Current everyday Tobacco user Tobacco use type: Cigarette Cigarette Packs Per Day: 1 Years Smoked: 35 +/- Second Hand Smoke Exposure: No service: No Current occupational status: unemployed Review of Systems Const Reports as per HPI Eyes Reports no additional complaints ENT Reports no additional complaints Card Reports as per HPI Resp Reports as per HPI GI Reports as per HPI Reports as per HPI Musc Reports as per HPI Neuro Reports as per HPI Psych Reports as per HPI Endo Reports as per HPI Physical Exam Const General: cooperative, comfortable, no acute distress, well developed, alert and awake Nutritional Appearance: obese Orientation/consciousness: patient oriented x3 Limitations: no limitations HEENT Head: Yes normal to inspection, Yes normocephalic and Yes atraumatic Ears: hearing grossly normal bilaterally Eyes General: appearance normal, both eyes and all related structures Neck Neck: Yes normal visual inspection and Yes trachea midline Chest Chest palpation & inspection: normal inspection of the chest Resp Effort & Inspection: normal respiratory effort and able to speak in complete sentences Cardio Rate: regular rate GI Inspection: Yes normal to inspection General: Yes no CVA tenderness Back/Spine/Pelvis Back: no CVA tenderness Skin General skin exam: no rashes or lesions noted Neuro General: patient oriented x3 Extrem General: Yes normal to inspection Psych Appearance: grossly normal and well kempt Mental Status: mental status grossly normal Speech and movement: Normal speech and movement present and Clear speech present Affect: normal affect Attitude: cooperative Thought process: Normal thought process present Thought content: Normal thought content present Insight: Fair insight present (Psych) Judgement: Fair judgement present (Psych) Results AMB Urinalysis, Automated UA Leukoctes 0 Megha/uL Last Edit by Clinical Data on 04/14/23 14:44 UA Nitrite Negative Last Edit by Clinical Data on 04/14/23 14:44 UA Urobilinogen 0.2 mg/dL Last Edit by Clinical Data on 04/14/23 14:44 UA Protein 0 mg/dL Last Edit by Clinical Data on 04/14/23 14:44 UA pH 6.0 Last Edit by Clinical Data on 04/14/23 14:44 UA Blood 0 Peter/uL Last Edit by Clinical Data on 04/14/23 14:44 UA Specific [place] 1.020 Last Edit by Clinical Data on 04/14/23 14:44 UA Ketone Negative Last Edit by Clinical Data on 04/14/23 14:44 UA Bilirubin 0 mg/dL Last Edit by Clinical Data on 04/14/23 14:44 UA Glucose 0 mg/dL Last Edit by Clinical Data on 04/14/23 14:44 Results Reviewed Results Reviewed: Laboratory Last Values Urine pH (Auto) 6.0 04/14/23 14:29 Specific [place] (Auto) 1.020 04/14/23 14:29 Urine Protein (Auto) 0 mg/dL 04/14/23 14:29 Glucose (UA)(Auto) 0 mg/dL 04/14/23 14:29 Urine Ketones (Auto) Negative 04/14/23 14:29 Urine Blood (Auto) 0 Peter/uL 04/14/23 14:29 Urine Nitrite (Auto) Negative 04/14/23 14:29 Urine Bilirubin (Auto) 0 mg/dL 04/14/23 14:29 Urine Urobilinogen (Auto) 0.2 mg/dL 04/14/23 14:29 Leukocyte Esterase (Auto) 0 Megha/uL 04/14/23 14:29 Date of Service: 02/17/23 EXAMINATION: CT ABDOMEN AND PELVIS WITH CONTRAST? FINDINGS: LUNG BASES: The visualized lung bases are unremarkable.? LIVER, GALLBLADDER, AND BILIARY TREE: Mildly enlarged liver. Right lobe of liver measuring 22 cm in length. This is unchanged since prior studies. No focal liver lesion. No intrahepatic bile duct dilatation. ?The gallbladder is unremarkable with no evidence of radiopaque gallstones, gallbladder wall thickening, or obvious pericholecystic inflammatory changes.? PANCREAS: Unremarkable.? SPLEEN: Unremarkable.? ADRENAL GLANDS: Unremarkable.? KIDNEYS AND URETERS: There are multiple small Nonobstructive bilateral renal stones. No hydronephrosis. No ureteral calculus. No change in the renal calculi since prior CAT scan 02/13/2023. Both kidneys normal in size and contour with normal enhancement of the cortex.? BLADDER: Unremarkable.? GASTROINTESTINAL TRACT: The small and large bowel are unremarkable. Moderate volume of stool in colon The appendix is nonvisualized ABDOMINAL WALL: No significant hernia is appreciated.? LYMPH NODES: Normal. VASCULAR: Unremarkable. PELVIC VISCERA: Status post hysterectomy. No pelvic mass or inflammation. No fluid in the cul-de-sac.? OSSEOUS STRUCTURES: Multilevel degenerative spondylosis spine.? IMPRESSION: 1.? No acute abnormality CT scan abdomen pelvis. 2.? Multiple small nonobstructive bilateral renal stones. No hydronephrosis. 3.? Mild hepatomegaly. 4.? Status post hysterectomy. Assessment & Plan Assessment & Plan (1) Nephrolithiasis: Comment: Calcium oxalate monohydrate 80% Code(s): N20.0 - Calculus of kidney (2) Chronic UTI (urinary tract infection): Code(s): N39.0 - Urinary tract infection, site not specified Plan In office urinalysis results reviewed with the patient today; as noted above. Recent CT imaging results reviewed with the patient today; as noted above. Will continue with interval surveillance imaging monitoring Patient denies any bothersome urinary issues or concerns at this time. Continue with vitamin B6 and Allopurinol as prescribed; refills provided. Educated, stressed, and encouraged on the importance of drinking plenty of water daily. Discussed at length importance of managing diabetes for improvement in overall health and well-being. Discussed at length importance of weight loss for overall health and well-being as well as limiting/quitting cigarette smoking. Discussed UTI prevention with D mannose supplement, vitamin-C, increasing fluid intake, behavioral therapy with timed voiding, perineal hygiene and postcoital voiding, and management of constipation with stool softeners and increased fiber intake. Renal ultrasound in 6 months Follow-up in 6 months with imaging to be completed prior; or sooner with any issues, concerns, and or questions. Orders: Orders US renal BI 6 Months N20.0 - Calculus of kidney AMB Urinalysis Automated Today Z13.9 - Encounter for screening, unspecified Medications: Refilled pyridoxine (vitamin B6) 100 mg PO DAILY 90 days 90 tabs 3RF N20.0 - Calculus of kidney allopurinol 100 mg PO DAILY 30 days 30 tabs 1RF N20.0 - Calculus of kidney Patient Instructions: The patient had an opportunity to ask questions regarding the treatment plan. All questions were answered. Physical exam, labs, and imaging were discussed and reviewed in detail. As well as risks, benefits, and discussion of treatment choices. No major barriers to understanding were identified. The patient expressed understanding and agreement with the above treatment plan. The patient was made aware they should contact our office by phone for worsening of their current condition, the appearance of new symptoms, or with any questions or concerns. Compliance is encouraged with any medications and follow up testing that is ordered. It is a privilege to be allowed the opportunity to participate in? your urological care.? Again, if you have any questions or concerns If you have any questions or concerns please do not hesitate to contact me. The office is [phone]. This note is constructed using voice recognition software. While every effort has been made to ensure accuracy digital sales manager errors may have been included. Yours sincerely, REMI Win Coding Level of Care Code Est Pt Level 3 (17629) Diagnoses Nephrolithiasis N20.0 Chronic UTI (urinary tract infection) N39.0
== END 2023-04-14 15:24 | disposition home or self-care (01) ==
PROVIDERS: PCP Family Medicine; Visit Provider Nurse Practitioner Family
DX: N20.0 Calculus of kidney (principal); N39.0 Urinary tract infection, site not specified
CPT/HCPCS: 99213

== ENCOUNTER → 2023-04-14 14:24 | Outpatient (BNVA) | payer OTHER, SELFPAY ==
[2022-10-22 13:00] VITALS: BP 128/72; BP 148/88; BMI 63.7
[2023-01-30 14:13] VITALS: BP 140/60
== END ==
PROVIDERS: PCP Family Medicine; Visit Provider Nurse Practitioner Family
DX: N20.0 Calculus of kidney (principal); N39.0 Urinary tract infection, site not specified
CPT/HCPCS: 81003; 99212

== ENCOUNTER 2023-04-22 13:46 | Outpatient (AMB) | payer OTHER, SELFPAY ==
[2022-10-22 13:00] VITALS: BP 128/72; BP 148/88; BMI 63.7
[2023-01-30 14:13] VITALS: BP 140/60
[2023-04-22 13:49] VITALS: BP 138/82; PULSE 68; BMI 54.7
--- NOTE | 2023-04-22 13:49 | A.OFFVIS_ITS ---
Intake Vital Signs 04/22/23 13:49 Height 5 ft 9 in Weight 370 lb 6.025 oz BMI 54.7 BP 138/82 Blood Pressure Location Lt brachial Position Sitting Pulse 68 Intake Visit Reasons: 6 mth follow up Intake Note: 6 month follow-up c/o little chest pressure at times also bruising Pharmacy Care Coordinator Required: Yes Pharmacy Care Coordinator Name: daughter Electrical Systems Designer: Electrical Systems Designer Present Accompanied by: Daughter Allergies penicillin G [PENICILLIN G] Allergy (Severe, Verified 04/14/23 15:37) DIFFICULTY BREATHING Medication List - Last Reconciled 04/22/23 by Mars Hutchinson MD albuterol sulfate 90 mcg/actuation (Ventolin HFA) 2 puffs PO Q4-6H PRN albuterol sulfate mg inhalation Q4-6H PRN allopurinol 100 mg PO DAILY 30 days aspirin 81 mg PO DAILY atorvastatin (Lipitor) 80 mg PO BEDTIME baclofen 10 mg PO TID PRN blood pressure test kit-large As directed capsaicin 0.025% 1 appl topical BID PRN cholecalciferol (vitamin D3) 50 mcg PO DAILY ezetimibe 10 mg PO DAILY fluticasone propionate 50 mcg/actuation 2 sprays intranasal DAILY isosorbide mononitrate ER 30 mg PO DAILY lisinopril 30 mg PO DAILY metformin ER 500 mg PO QPM metoprolol succinate ER 50 mg PO DAILY metronidazole 0.75% 1 appl topical DAILY PRN mirtazapine 7.5 mg PO BEDTIME nicotine (polacrilex) mg PO omeprazole 20 mg PO DAILY ondansetron 4 mg PO Q6-8H PRN pyridoxine (vitamin B6) 100 mg PO DAILY 90 days ticagrelor (Brilinta) 90 mg PO BID topiramate 50 mg PO BID tramadol 50 mg PO Q8H PRN HPI HPI Comments History of Present Illness Details Blaire comes for follow-up with her daughter. They declined a certified certified court/medical interpreter. Patient denies any active exertional chest pain. Takes all her medications. Her last LDL was well optimized at 47 mg/dL. She is taking all other medications. Unfortunate she continues to smoke. She denies any prolonged palpitation irregular heartbeat. No lightheadedness, syncope blood pressure is generally well controlled. Has lost some weight PFSH Medical History Asthma CAD (coronary artery disease) Chronic pain Depression Fatty liver Frequent UTI HTN (hypertension) Hyperlipidemia Kidney stone Leukocytosis Mass of throat Migraine Non-ST elevation PR (NSTEMI) Obesity YAMILETH on CPAP PTSD (post-traumatic stress disorder) Smoker Subsequent non-ST elevation myocardial infarction (NSTEMI) within 4 weeks of initial infarction Surgical History H/O: hysterectomy History of breast lump/mass excision History of endometrial ablation History of heart artery stent History of lithotripsy History of lumpectomy of left breast (10/22/21) History of tonsillectomy Hx of colonoscopy Stented coronary artery Family History Father Hypertension Mother Hypertension Osteoporosis Hx of bilateral cataract extraction Paternal Grandmother Diabetes Sister Asthma Maternal Uncle Throat cancer Maternal Aunt Ovarian cancer Breast cancer Social History Household Members: Children Housing: Apartment Are you a primary restorative care technician to a significant other at home: No Do you presently have visiting nurse or other home services: Yes (daughter is her golf sales manager) Alcohol intake: never Patient Tobacco Use Status: Current everyday Tobacco user Tobacco use type: Cigarette Cigarette Packs Per Day: 1 Years Smoked: 35 +/- Second Hand Smoke Exposure: No service: No Current occupational status: unemployed Review of Systems Const Denies chills, Denies fatigue, Denies fever(s), Denies frequent falls, Denies weakness, Denies weight gain and Denies weight loss ENT Denies dizziness Card Denies chest pain, Denies leg edema, Denies lightheadedness, Denies palpitations, Denies dyspnea, Denies dyspnea on exertion, Denies orthopnea and Denies other (loss of consciousness) Resp Denies cough, Denies dyspnea and Denies dyspnea on exertion GI Denies hematochezia and Denies change in stool character Musc Denies abnormal gait, Denies muscle weakness, Denies numbness, Denies radiating pain into limb and Denies tingling Neuro Denies abnormal gait, Denies dizziness, Denies frequent falls, Denies numbness, Denies tingling and Denies weakness Endo Denies fatigue and Denies palpitations Physical Exam Vital Signs: Last Vital Signs Pulse 68 04/22/23 13:49 BP 138/82 09/05/23 13:49 BMI result Body Mass Index 54.7 Const Other: Morbid obesity General: cooperative, healthy appearing, comfortable and no acute distress Orientation/consciousness: patient oriented x3 Neck Neck: Yes normal visual inspection Resp Effort & Inspection: normal respiratory effort Auscultation: clear to auscultation bilaterally, no crackles, no rales, no rhonchi and no wheezes Cardio Jugular venous distension: no JVD Rate: regular rate Rhythm: regular rhythm Heart sounds: S1 normal heart sound present, S2 normal heart sound present, no gallops, no murmurs and no rubs Neuro General: patient oriented x3 Extrem Other: Right radial catheterization site well healed, easily palpable radial pulse, right hand assessment normal General: Yes normal to inspection Psych Appearance: grossly normal Mental Status: mental status grossly normal Speech and movement: Normal speech and movement present Assessment & Plan Assessment & Plan (1) CAD (coronary artery disease): Code(s): I25.10 - Atherosclerotic heart disease of wiyot coronary artery without angina pectoris Plan: CAD with acute coronary syndrome last May status post drug-eluting stent to LAD with follow-up cardiac catheterization showing nonobstructive disease. Since then she has had no recurrent symptoms. She is currently on dual antiplatelet therapy with aspirin Brilinta. BR in 1 year I would reduce Brilinta dose to 60 mg b.i.d. and continue for total of 30 months as per PEGASUS trial. Continue lifelong aspirin therapy. Aggressive risk factor modification. Lipids are well optimized. Importance continue medical therapy was discussed. Importance of complete smoking cessation was discussed. She understands agrees. Continue aggressive blood pressure control, see below. Aggressive weight loss program should be pursued. Consider bariatric surgery referral. (2) HTN (hypertension): Code(s): I10 - Essential (primary) hypertension Plan: Hypertension is currently well optimized advised to monitor blood pressure at home maintain a log. Goal blood pressure less than 130/84. Low-salt diet was discussed. Advised to participate in aggressive weight loss program. Continue maintain activity level as tolerated. Follow up in the clinic in 6 months time, sooner p.r.n.. Thank you for allowing me to partake in the care Coding Level of Care Code Est Pt Level 4 (55509) Diagnoses CAD (coronary artery disease) I25.10 HTN (hypertension) I10
== END 2023-04-22 14:11 | disposition home or self-care (01) ==
PROVIDERS: PCP Family Medicine; Referring Provider Family Medicine; Visit Provider Internal Medicine Cardiovascular Disease
DX: I25.10 Atherosclerotic heart disease of native coronary artery without angina pectoris (principal); I10 Essential (primary) hypertension
CPT/HCPCS: 99214

== ENCOUNTER → 2023-04-22 13:46 | Outpatient (BNVA) | payer OTHER, SELFPAY ==
[2022-10-22 13:00] VITALS: BP 128/72; BP 148/88; BMI 63.7
[2023-01-30 14:13] VITALS: BP 140/60
== END ==
PROVIDERS: PCP Family Medicine; Referring Provider Family Medicine; Visit Provider Internal Medicine Cardiovascular Disease
DX: I25.10 Atherosclerotic heart disease of native coronary artery without angina pectoris (principal); I10 Essential (primary) hypertension; Z79.82 Long term (current) use of aspirin; Z79.899 Other long term (current) drug therapy
CPT/HCPCS: 99212

== ENCOUNTER 2023-04-29 12:53 | Outpatient (AMB) | payer OTHER, SELFPAY ==
[2022-10-22 13:00] VITALS: BP 128/72; BP 148/88; BMI 63.7
[2023-01-30 14:13] VITALS: BP 140/60
[2023-04-29 13:07] VITALS: BMI 54.6
--- NOTE | 2023-04-29 13:07 | MHC.OFFVIS ---
Intake Vital Signs 04/29/23 13:07 Height 5 ft 9 in Weight 370 lb BMI 54.6 Intake Visit Reasons: OV-B/l Knee Pain - Last Inj Lt Knee 01/31/23 Intake Note: Blaire is a 47 year old female who presents today to repeat injections for both knees, last inj left knee 01/31/23. Patient reports her last injection lasted her up until this point. She states that she would like to repeat injections. Allergies penicillin G [PENICILLIN G] Allergy (Severe, Verified 04/29/23 13:09) DIFFICULTY BREATHING HPI OV-B/l Knee Pain - Last Inj Lt Knee 01/31/23 HPI Details 48-year-old female who presents in the office today for a follow up of bilateral knee pain. The patient had a cortisone injection in the bilateral knee on 01/31/2023. She states the injection gave her relief up until recently. She would like a repeat injections in the office today. Patient has a medical history significant for diabetes mellitus. [facility] Medical History Asthma CAD (coronary artery disease) Chronic pain Depression Fatty liver Frequent UTI HTN (hypertension) Hyperlipidemia Kidney stone Leukocytosis Mass of throat Migraine Non-ST elevation [place] (NSTEMI) Obesity YAMILETH on CPAP PTSD (post-traumatic stress disorder) Smoker Subsequent non-ST elevation myocardial infarction (NSTEMI) within 4 weeks of initial infarction Surgical History H/O: hysterectomy History of breast lump/mass excision History of endometrial ablation History of heart artery stent History of lithotripsy History of lumpectomy of left breast (10/22/21) History of tonsillectomy Hx of colonoscopy Stented coronary artery Family History Father Hypertension Mother Hypertension Osteoporosis Hx of bilateral cataract extraction Paternal Grandmother Diabetes Sister Asthma Maternal Uncle Throat cancer Maternal Aunt Ovarian cancer Breast cancer Social History Household Members: Children Housing: Apartment Are you a primary daycare director to a significant other at home: No Do you presently have visiting nurse or other home services: Yes (daughter is her insurance claims clerk) Alcohol intake: never Patient Tobacco Use Status: Current everyday Tobacco user Tobacco use type: Cigarette Cigarette Packs Per Day: 1 Years Smoked: 35 +/- Second Hand Smoke Exposure: No service: No Current occupational status: unemployed Review of Systems Const All systems reviewed & are unremarkable except as noted in HPI and below Physical Exam Vital Signs: BMI result Body Mass Index 54.6 Const General: cooperative, healthy appearing and no acute distress Resp Effort & Inspection: normal respiratory effort and able to speak in complete sentences Cardio Rate: regular rate Peripheral pulses: Peripheral pulses 2+ throughout GI Palpation (GI): Soft to palpation Skin Lesions: no lesions Rashes: no rashes Extrem Other: Bilateral knees: Normal to inspection. No ecchymosis, erythema, or joint effusion. No tenderness to palpation to the lateral joint lines. Tenderness to palpation over the medial joint line. Full knee extension and flexion. Negative Masha's. Negative anterior draw. NVI. Office Procedures Joint Injection/Drain Joint Injection/Drain Primary Site: right knee Secondary Site: left knee Injected: 40 mg of, DepoMedrol, with 8 mL of (2% plain lido) and in the joint Approach Used: anterolateral Procedure: The patient tolerated the procedure well, but had some pain with the injection and there was some relief with the local anesthesia Coding 30733 - Large joint Procedure code (CPT) selection complete Results Reviewed Results Reviewed: 04/29/23 13:09 Lidocaine HCl 2 % MPF [Xylocaine 2 % MPF] 5 ml .ROUTE .STK-MED ONE methylPREDNISolone acetate [DEPO-MedroL] 40 mg .ROUTE .STK-MED ONE Assessment & Plan Assessment & Plan (1) Osteoarthritis of left knee: Code(s): M17.12 - Unilateral primary osteoarthritis, left knee Qualifiers: Osteoarthritis type: unspecified Qualified Code(s): M17.12 - Unilateral primary osteoarthritis, left knee (2) Osteoarthritis of right knee: Code(s): M17.11 - Unilateral primary osteoarthritis, right knee Qualifiers: Osteoarthritis type: unspecified Qualified Code(s): M17.11 - Unilateral primary osteoarthritis, right knee (3) Diabetes mellitus: Code(s): E11.9 - Type 2 diabetes mellitus without complications Plan Ms. Glass is a 48-year-old female who presents in the office today for a follow up of bilateral knee pain. The patient had a cortisone injection in the bilateral knee on 01/31/2023. She states the injection gave her relief up until recently. She would like a repeat injections in the office today. Patient has a medical history significant for diabetes mellitus. The patient was offered a cortisone injection in the bilateral knees with 40 mg of DepoMedrol. The patient was explained the risk, benefits, and alternatives to receiving this injection. After receiving consent for the injection, the patient had the procedure done while in office today. The patient tolerated the procedure well with no complications. Due to the patient?s history of diabetes, they were instructed to monitor her blood glucose level. The patient was informed that they could see a rise in their numbers and if the numbers became too high, they were instructed to call their PCP. The patient was also informed that they could have facial flushing as a side effect of the injection but this will pass. Follow up will be PRN, or sooner if needed. Patient Instructions: Scribed for Trupti Lyle PA-C by Radha Chacko medical assistant secretary, on 04/29/2023 at 12:56 am, EST. Coding Level of Care Code Est Pt Level 4 (98528) Diagnoses Osteoarthritis of left knee, unspecified osteoarthritis type M17.12 Osteoarthritis type: unspecified Osteoarthritis of right knee, unspecified osteoarthritis type M17.11 Osteoarthritis type: unspecified Diabetes mellitus E11.9 CPT Codes Coding - 88415 Large joint: 28074 - Large joint ([id number])
== END 2023-04-29 13:34 | disposition home or self-care (01) ==
PROVIDERS: PCP Family Medicine; Visit Provider Physician Assistant
DX: M17.0 Bilateral primary osteoarthritis of knee (principal)
CPT/HCPCS: 20610

== ENCOUNTER → 2023-04-29 12:53 | Outpatient (BNVA) | payer OTHER, SELFPAY ==
[2022-10-22 13:00] VITALS: BP 128/72; BP 148/88; BMI 63.7
[2023-01-30 14:13] VITALS: BP 140/60
== END ==
PROVIDERS: PCP Family Medicine; Visit Provider Physician Assistant
DX: M17.0 Bilateral primary osteoarthritis of knee (principal); E11.9 Type 2 diabetes mellitus without complications
CPT/HCPCS: 20610; J1020

== ENCOUNTER 2023-06-14 01:58 | Emergency (ER) | payer OTHER, SELFPAY ==
[2022-10-22 13:00] VITALS: BP 128/72; BP 148/88; BMI 63.7
[2023-01-30 14:13] VITALS: BP 140/60
--- NOTE | 2023-06-14 | ECG_ITS ---
Test Reason : CHEST PAIN/ HIGH BP Blood Pressure : / mmHG Vent. Rate : 063 BPM Atrial Rate : 063 BPM P-R Int : 174 ms QRS Dur : 076 ms QT Int : 416 ms P-R-T Axes : 067 031 045 degrees QTc Int : 425 ms Normal sinus rhythm Normal ECG When compared with ECG of 17-FEB-2023 14:30, No significant change was found Referred By: Generic ED Physician Electronically Signed By:NELIDA BARKER MD
--- NOTE | ~2023-06-14 | XR_ITS ---
EXAMINATION: XR CHEST CLINICAL INFORMATION: Chest pain COMPARISON: 02/13/2023 TECHNIQUE: Frontal view of the chest was obtained. FINDINGS: The lungs are clear with no focal consolidation. No evidence of pneumothorax, pulmonary edema, or pleural effusions. The cardiomediastinal silhouette is unremarkable. No acute osseous findings. XR/XR chest 1V IMPRESSION: No acute cardiopulmonary findings.
[2023-06-14 02:10] VITALS: BP 144/88; PULSE 63; RESP 16; TEMP 36.8; O2SAT 98; BMI 45.6
[2023-06-14 02:15] LABS: Basophils Absolute Auto 0.1 X10*3/uL (0.0-0.2); Basophils Percent Auto 0.4 % (0-2); Eosinophils Absolute Auto 0.3 X10*3/uL (0.0-0.4); Eosinophils Percent Auto 2.3 % (0-4); Hematocrit 36.9 % (37.0-47.0); Hemoglobin 12.1 g/dl (12.0-16.0); Imm Gran Abs Auto 0.06 X10*3/uL (0.00-0.03); Imm Gran Pct Auto 0.5 % (0.0-0.4); Lymphocytes Absolute Auto 4.9 X10*3/uL (1.2-4.9); Lymphocytes Percent Auto 38.2 % (20-40); MANUAL DIFF FLAG NO; Mean Corpuscular HGB Conc 32.8 g/dl (31.0-35.0); Mean Corpuscular Volume 91.3 fL (80.0-98.0); Mean Platelet Volume 9.7 fL (9.4-12.3); Monocytes Absolute Auto 0.9 X10*3/uL (0.1-1.2); Monocytes Percent Auto 7.2 % (2-11); Neutrophils Absolute Auto 6.6 x10*3/uL (2.0-8.3); Neutrophils Percent Auto 51.4 % (45-73); Platelet Count 350 X10*3/uL (160-400); Red Blood Count 4.04 X10*6/uL (4.20-5.50); Red Cell Distribution Width 14.6 % (11.0-16.0); White Blood Count 12.8 X10*3/uL (4.8-10.8)
[2023-06-14 02:31] LABS: Alanine Aminotransferase 17 U/L (0-31); Albumin Level 3.6 g/dL (3.5-5.0); Alkaline Phosphatase 86 U/L (39-117); Anion Gap 13 (12-20); Aspartate Amino Transferase 18 U/L (5-31); Bilirubin Total 0.3 mg/dL (0.0-1.0); Blood Urea Nitrogen 12 mg/dL (9-16); Calcium 9.5 mg/dL (8.4-10.2); Carbon Dioxide 22 mmol/L (22-29); Chloride 110 mmol/L (96-108); Creatinine Clr Calc Pharmacy 127.2; Estimated Glomerular Filt Rate > 60; Glucose Random 97 mg/dL (60-115); Potassium 3.8 mmol/L (3.3-5.1); Sodium 141 mmol/L (135-145); Total Protein 7.5 g/dL (6.5-8.0)
[2023-06-14 02:41] LABS: Troponin-I High Sensitivity < 2.7 ng/L (<3.5-17.0)
--- NOTE | 2023-06-14 02:53 | PC.NURSE ---
bryologist at bedside. pt reports left sided chest pain that comes and goes for one day. pt reports pain originally was in the right chest, now it is the left chest and will sometimes radiate to the abdomen, bilateral shoulders, and head. pt reports SOB on exertion. pt denies n/v/d at this time. p lung sounds clear bilaterally. pt normal sinus on tele [id number].
[2023-06-14 04:29] VITALS: BP 136/74; PULSE 62; RESP 20; O2SAT 97
--- NOTE | 2023-06-14 04:39 | ED_ITS ---
HPI - Chest Pain General Chief Complaint: Chest Pain Stated Complaint: Heart Palpitations, Arm numbness Time Seen by Provider: 06/14/23 04:24 Source: patient Mode of arrival: ambulatory Limitations: no limitations History of Present Illness HPI narrative: Patient comes to the emergency room complaining of left-sided chest pain that started yesterday. Patient states that she feels a bit numbness and tingling in the fingertips. Patient states that she has history of NSTEMI a cardiac catheterization, therefore the symptoms were from milieu, became very anxious and came to the emergency room. At this time, patient is feeling better, denies any significant chest pain. However, she still anxious because of her previous history. Patient denies shortness of breath. Related Data Home Medications Medication Instructions Recorded Confirmed baclofen 10 mg tablet 10 mg PO TID PRN muscle spasm 11/03/20 04/22/23 albuterol sulfate 90 mcg/actuation 2 puff PO Q4-6H PRN Wheezing 12/01/20 04/22/23 aerosol inhaler (Ventolin HFA) atorvastatin 80 mg tablet (Lipitor) 80 mg PO BEDTIME 12/01/20 04/22/23 fluticasone propionate 50 2 spray intranasal DAILY 12/01/20 04/22/23 mcg/actuation nasal spray,suspension blood pressure test kit-large #1 ea 12/19/20 11/15/22 topiramate 50 mg tablet 50 mg PO BID 12/19/20 04/22/23 cholecalciferol (vitamin D3) 50 50 mcg PO DAILY 03/13/22 04/22/23 mcg (2,000 unit) capsule mirtazapine 7.5 mg tablet 7.5 mg PO BEDTIME 06/17/22 04/22/23 aspirin 81 mg tablet,delayed 81 mg PO DAILY 07/01/22 04/22/23 release lisinopril 30 mg tablet 30 mg PO DAILY 07/01/22 04/22/23 metformin 500 mg tablet,extended 500 mg PO QPM 07/01/22 04/22/23 release 24 hr metoprolol succinate 50 mg 50 mg PO DAILY 07/01/22 04/22/23 tablet,extended release 24 hr omeprazole 20 mg capsule,delayed 20 mg PO DAILY 07/01/22 04/22/23 release ticagrelor 90 mg tablet (Brilinta) 90 mg PO BID 07/02/22 04/22/23 tramadol 50 mg tablet 50 mg PO Q8H PRN severe pain 10/24/22 04/22/23 capsaicin 0.025 % topical cream 1 appl topical BID PRN mild pain 10/25/22 04/22/23 metronidazole 0.75 % topical gel 1 appl topical DAILY PRN Rash 10/25/22 04/22/23 albuterol sulfate 2.5 mg/3 mL mg inhalation Q4-6H PRN 11/15/22 04/22/23 (0.083 %) solution for nebulization isosorbide mononitrate 30 mg 30 mg PO DAILY 11/15/22 04/22/23 tablet,extended release 24 hr nicotine (polacrilex) 4 mg gum mg PO 11/15/22 04/22/23 Previous Rx's Medication Instructions Recorded ondansetron 4 mg disintegrating 4 mg PO Q6-8H PRN nausea and 02/13/23 tablet vomiting #7 tabs allopurinol 100 mg tablet 100 mg PO DAILY 30 days #30 tabs 04/14/23 pyridoxine (vitamin B6) 100 mg 100 mg PO DAILY 90 days #90 tabs 04/14/23 tablet ezetimibe 10 mg tablet 10 mg PO DAILY #30 tabs 04/22/23 Allergies Allergy/AdvReac Type Severity Reaction Status Date / Time penicillin G [PENICILLIN G] Allergy Severe DIFFICULTY Verified 04/29/23 13:09 BREATHING Review of Systems 2 Review of Systems: Constitutional : No Weight loss, No Fever, No Chills, No Night Sweats, No Fatigue, No Malaise ENT/Mouth : No Hearing loss, No Ear Pain, No Nasal Congestion, No Sinus Pain, No Hoarseness, No sore throat, No Rhinorrhea, No Swallowing Difficulty Eyes: No Eye Pain, No Swelling, No Redness, No Foreign Body, No Discharge, No Vision Changes Cardiovascular : Complaining of chest pain for almost 24 hours radiating towards the left arm, mild numbness tingling in the fingertips. Intermittent, not present at this time. No SOB, No Dyspnea on Exertion, No Orthopnea, No Edema, No Palpitations Respiratory : No Cough, No Sputum, No Wheezing, No Smoke Exposure, No Dyspnea Gastrointestinal : No Nausea, No Vomiting, No Diarrhea, No Constipation, No abdominal Pain, No Hematochezia, No Melena Genitourinary : no irregular bleeding, No Dysuria, No Urinary Frequency, No Hematuria, No Urinary Incontinence, No Urgency, No Flank Pain, No Urinary Flow Changes, No Hesitancy Musculoskeletal : No joint pain, No Myalgias, No Joint Swelling Skin : No Skin Lesions, No rash Neuro : No Weakness, No Numbness, No Paresthesias, No Loss of Consciousness, No Dizziness, No Headache Psych : No Anxiety/Panic, No Depression, No SI/HI/AH/VH, No Social Issues, Heme/Lymph: No Bruising, No Bleeding,No Lymphadenopathy Endocrine : No Polyuria, No Polydipsia, No Temperature Intolerance [facility] Past Medical History Medical History CAD (coronary artery disease) Subsequent non-ST elevation myocardial infarction (NSTEMI) within 4 weeks of initial infarction Non-ST elevation [place] (NSTEMI) YAMILETH on CPAP Hyperlipidemia PTSD (post-traumatic stress disorder) Fatty liver Smoker Depression Obesity Leukocytosis Frequent UTI Asthma Mass of throat Chronic pain Kidney stone Migraine HTN (hypertension) Surgical History H/O: hysterectomy History of breast lump/mass excision History of endometrial ablation History of heart artery stent History of lithotripsy History of lumpectomy of left breast (10/22/21) History of tonsillectomy Hx of colonoscopy Stented coronary artery Family History Family History Father Hypertension Mother Hypertension Osteoporosis Hx of bilateral cataract extraction Paternal Grandmother Diabetes Sister Asthma Maternal Uncle Throat cancer Maternal Aunt Ovarian cancer Breast cancer Social History Social History Household Members: Children Housing: Apartment Are you a primary career education teacher to a significant other at home: No Do you presently have visiting nurse or other home services: Yes (daughter is her cathodic protection technician) Alcohol intake: never Patient Tobacco Use Status: Current everyday Tobacco user Tobacco use type: Cigarette Cigarette Packs Per Day: 1 Years Smoked: 35 +/- Smoked in Last 30 Days: Yes Second Hand Smoke Exposure: No Use of substances other than those prescribed or required for medical reasons: No Advance Directives: No Advance Directives Information Provided: No Patient : No service: No Current occupational status: unemployed Physical Exam 2 Vital Signs: Vital Signs: Last Vital Signs Temp 98.3 F 06/14/23 02:10 Pulse 62 06/14/23 04:29 Resp 20 06/14/23 04:29 BP 136/74 06/14/23 04:29 Pulse Ox 97 06/14/23 04:29 O2 Del Method Room Air 06/14/23 04:29 BMI result Body Mass Index 45.6 Const: Other: Appearance: Alert. Oriented X3. No acute distress. Eyes: Pupils equal, round and reactive to light. ENT: Pharynx normal. Neck: Normal inspection. Neck supple. No lymph nodes noted. No crepitus CVS: Normal heart rate and rhythm. Pulses normal. Normal S1 and S2 Respiratory: No respiratory distress. Breath sounds normal. No Wheezing. No rales Abdomen: Soft and nontender. No rigidity. No distention. Skin: Skin warm and dry. Normal skin color. Normal skin turgor. Extremities: No lower extremity edema. No Lacerations. No Rash Neuro: Oriented X 3. No motor deficit. No sensory deficit. Moving all extremities. No slurred speech. CN 2 through 12 grossly intact Psych: calm, cooperative, normal affect Medical Decision Making Medical Decision Making MDM Narrative: -at this time, patient denies any chest pain, shortness of breath, left arm pain or finger numbness tingling. -my interpretation of labs: patient's hematology is at baseline, chronic leukocytosis. Chemistry within normal limits, troponin negative. -my interpretation of EKG: Normal sinus rhythm, heart rate 63, no ST segment depression or elevation, no T-wave inversion, QTC 425 -so far, it does not seem the patient is having an NSTEMI/STEMI. Patient asymptomatic. Due to patient's past medical history of NSTEMI, will repeat labs 3 hours from the 1st troponin that was taken although it has been more than 24 hours since the patient has been symptomatic. -discussed the plan with the patient, patient agreeable. -patient's troponin 2. Is negative. Patient asymptomatic. Differential Diagnosis Differential Diagnoses: The differential diagnosis associated with the presentation includes (Acute coronary syndrome, NSTEMI, STEMI, costochondritis, pneumonia) Admission/Observation Consideration of admission/observation: Escalation of care including admission/observation considered (Given patient's symptoms and past medical history, admission was considered on arrival) Lab Data MDM Lab Attestation statement: I reviewed the patient's lab results. 06/14/23 02:10 06/14/23 02:10 Labs: Lab Results 06/14/23 06/14/23 Range/Units 02:10 05:09 WBC 12.8 H (4.8-10.8) X10*3/uL RBC 4.04 L (4.20-5.50) X10*6/uL Hgb 12.1 (12.0-16.0) g/dl Hct 36.9 L (37.0-47.0) % MCV 91.3 (80.0-98.0) fL MCH 30.0 (27.0-33.0) pg MCHC 32.8 (31.0-35.0) g/dl RDW 14.6 (11.0-16.0) % Plt Count 350 (160-400) X10*3/uL MPV 9.7 (9.4-12.3) fL Immature Gran % (Auto) 0.5 H (0.0-0.4) % Neut % (Auto) 51.4 (45-73) % Lymph % (Auto) 38.2 (20-40) % [place] % (Auto) 7.2 (2-11) % Eos % (Auto) 2.3 (0-4) % Baso % (Auto) 0.4 (0-2) % Lymph # (Auto) 4.9 (1.2-4.9) X10*3/uL [place] # (Auto) 0.9 (0.1-1.2) X10*3/uL Eos # (Auto) 0.3 (0.0-0.4) X10*3/uL Baso # (Auto) 0.1 (0.0-0.2) X10*3/uL Abs Immat Gran (auto) 0.06 H (0.00-0.03) X10*3/uL Absolute Neuts (auto) 6.6 (2.0-8.3) x10*3/uL Absolute Nucleated RBC 0.000 (0.0-0.012) X10*3/uL Nucleated RBC % (auto) 0.0 (0.0-0.2) /100WBC Sodium 141 (135-145) mmol/L Potassium 3.8 (3.3-5.1) mmol/L Chloride 110 H (96-108) mmol/L Carbon Dioxide 22 (22-29) mmol/L Anion Gap 13 (12-20) BUN 12 (9-16) mg/dL Creatinine 0.80 (0.5-1.4) mg/dL Estim Creat Clear Calc 127.2 Estimated GFR > 60 Random Glucose 97 (60-115) mg/dL Calcium 9.5 (8.4-10.2) mg/dL Total Bilirubin 0.3 (0.0-1.0) mg/dL AST 18 (5-31) U/L ALT 17 (0-31) U/L Alkaline Phosphatase 86 (39-117) U/L Troponin I High Sens < 2.7 < 2.7 (<3.5-17.0) ng/L Total Protein 7.5 (6.5-8.0) g/dL Albumin 3.6 (3.5-5.0) g/dL Scores Heart Score History: -0- slightly suspicious ECG: -0- normal Age: -1- >45 - <65 Risk factory: -2- 3 or more risk factors or treated atherosclerosis Troponin: -0- < or = normal limit Score: 3 Risk: 1.7% Discharge Plan Discharge Clinical Impression: Atypical chest pain Patient Disposition: Home, Self-Care Instructions: Chest Pain (ED) Additional Instructions: Please follow-up with your primary care physician tomorrow. If you have any worsening or new symptoms, please return to the emergency room or call 911 Prescriptions: No Action ezetimibe 10 mg tablet 10 mg PO DAILY Qty: 30 6RF albuterol sulfate [Ventolin HFA] 90 mcg/actuation HFA aerosol inhaler 2 puff PO Q4-6H PRN (Reason: Wheezing) fluticasone propionate 50 mcg/actuation spray,suspension 2 spray intranasal DAILY atorvastatin [Lipitor] 80 mg Tablet 80 mg PO BEDTIME omeprazole 20 mg capsule,delayed release(DR/EC) 20 mg PO DAILY lisinopril 30 mg tablet 30 mg PO DAILY metformin 500 mg tablet extended release 24 hr 500 mg PO QPM capsaicin 0.025 % cream 1 appl topical BID PRN (Reason: mild pain) metronidazole 0.75 % gel 1 appl topical DAILY PRN (Reason: Rash) ondansetron 4 mg tablet,disintegrating 4 mg PO Q6-8H PRN (Reason: nausea and vomiting) Qty: 7 0RF baclofen 10 mg tablet 10 mg PO TID PRN (Reason: muscle spasm) topiramate 50 mg tablet 50 mg PO BID (DME) blood pressure test kit-large Kit See Rx Instructions .ROUTE DIRECTED Qty: 1 Rx Instructions: As directed tramadol 50 mg tablet 50 mg PO Q8H PRN (Reason: severe pain) cholecalciferol (vitamin D3) 50 mcg (2,000 unit) capsule 50 mcg PO DAILY mirtazapine 7.5 mg tablet 7.5 mg PO BEDTIME Brilinta 90 mg tablet 90 mg PO BID metoprolol succinate 50 mg tablet extended release 24 hr 50 mg PO DAILY aspirin 81 mg tablet,delayed release (DR/EC) 81 mg PO DAILY isosorbide mononitrate 30 mg tablet extended release 24 hr 30 mg PO DAILY albuterol sulfate 2.5 mg /3 mL (0.083 %) solution for nebulization inhalation Q4-6H PRN nicotine (polacrilex) 4 mg gum PO pyridoxine (vitamin B6) 100 mg tablet 100 mg PO DAILY 90 Days Qty: 90 3RF allopurinol 100 mg tablet 100 mg PO DAILY 30 Days Qty: 30 1RF
[2023-06-14 05:37] LABS: Troponin-I High Sensitivity < 2.7 ng/L (<3.5-17.0)
[2023-06-14 06:07] VITALS: BP 143/78; PULSE 53; RESP 18; TEMP 36.4; O2SAT 94
== END 2023-06-14 06:23 | disposition home or self-care (01) ==
PROVIDERS: Emergency Provider Emergency Medicine; PCP Family Medicine
DX: R07.89 Other chest pain (principal); F41.9 Anxiety disorder, unspecified; I10 Essential (primary) hypertension; E78.5 Hyperlipidemia, unspecified; F17.210 Nicotine dependence, cigarettes, uncomplicated; E66.9 Obesity, unspecified; Z68.42 Body mass index [BMI] 45.0-49.9, adult; Z79.84 Long term (current) use of oral hypoglycemic drugs; Z79.899 Other long term (current) drug therapy; Z79.82 Long term (current) use of aspirin
CPT/HCPCS: 36415; 71045; 80053; 84484; 85025; 93005; 99283; 99285

== ENCOUNTER 2023-06-24 19:16 | Outpatient (REF) | payer OTHER, SELFPAY ==
[2022-10-22 13:00] VITALS: BP 128/72; BP 148/88; BMI 63.7
[2023-01-30 14:13] VITALS: BP 140/60
[2023-06-29 12:20] LABS: H Pylori Breath Test Positive (Negative)
== END 2023-06-24 19:17 | disposition home or self-care (01) ==
LOC: HO.HHCLNP 19:16
PROVIDERS: Visit Provider Family Medicine
DX: R10.13 Epigastric pain (principal)
CPT/HCPCS: 83013

== ENCOUNTER 2023-07-17 10:12 | Outpatient (AMB) | payer OTHER, SELFPAY ==
[2022-10-22 13:00] VITALS: BP 128/72; BP 148/88; BMI 63.7
[2023-01-30 14:13] VITALS: BP 140/60
--- NOTE | 2023-07-17 10:27 | A.OFFVIS_ITS ---
Intake Vital Signs 07/17/23 10:32 Height 5 ft 8 in Weight 367 lb BMI 55.8 Intake Visit Reasons: hidradenitis Intake Note: This patient presents for an assessment for hidradenitis suppurativa. Patient c/o; reports flare-up, reports HS all over. Medical Records Administrator Required: Yes Medical Records Administrator Language: Portfolio Specialist Name: Charisse Information Interpreted: non-clinical & clinical Accompanied by: Self / Same As Patient Allergies penicillin G [PENICILLIN G] Allergy (Severe, Verified 07/17/23 10:32) DIFFICULTY BREATHING Medication List - Last Reconciled 07/17/23 by Saad Acosta MD albuterol sulfate 90 mcg/actuation (Ventolin HFA) 2 puffs PO Q4-6H PRN albuterol sulfate mg inhalation Q4-6H PRN allopurinol 100 mg PO DAILY 90 days aspirin 81 mg PO DAILY atorvastatin (Lipitor) 80 mg PO BEDTIME baclofen 10 mg PO TID PRN blood pressure test kit-large As directed capsaicin 0.025% 1 appl topical BID PRN cholecalciferol (vitamin D3) 50 mcg PO DAILY ezetimibe 10 mg PO DAILY fluticasone propionate 50 mcg/actuation 2 sprays intranasal DAILY isosorbide mononitrate ER 30 mg PO DAILY lisinopril 30 mg PO DAILY metformin ER 500 mg PO QPM metoprolol succinate ER 50 mg PO DAILY metronidazole 0.75% 1 appl topical DAILY PRN mirtazapine 7.5 mg PO BEDTIME nicotine (polacrilex) mg PO omeprazole 20 mg PO DAILY ondansetron 4 mg PO Q6-8H PRN pyridoxine (vitamin B6) 100 mg PO DAILY 90 days ticagrelor (Brilinta) 90 mg PO BID topiramate 50 mg PO BID tramadol 50 mg PO Q8H PRN HPI hidradenitis HPI Details 48-year-old female referred for hidraden itis. She has multiple areas of swelling and induration on her skin involving mostly the torso but also the extremities. She says she has had this for years She states that she was in the emergency room recently and had an I and D done for 1 of the areas of the skin on the lower chest wall under the breast. She denies any new abscesses. [facility] Medical History (Updated 07/17/23 @ 11:10 by Saad Acosta MD) Morbid obesity Hidradenitis suppurativa CAD (coronary artery disease) Subsequent non-ST elevation myocardial infarction (NSTEMI) within 4 weeks of initial infarction Non-ST elevation [place] (NSTEMI) YAMILETH on CPAP Hyperlipidemia PTSD (post-traumatic stress disorder) Fatty liver Smoker Depression Obesity Leukocytosis Frequent UTI Asthma Mass of throat Chronic pain Kidney stone Migraine HTN (hypertension) Surgical History Stented coronary artery History of heart artery stent History of lumpectomy of left breast (10/22/21) History of lithotripsy History of endometrial ablation Hx of colonoscopy History of breast lump/mass excision History of tonsillectomy H/O: hysterectomy Family History Father Hypertension Mother Hypertension Osteoporosis Hx of bilateral cataract extraction Paternal Grandmother Diabetes Sister Asthma Maternal Uncle Throat cancer Maternal Aunt Ovarian cancer Breast cancer Social History Household Members: Children Housing: Apartment Are you a primary manager intensive care unit to a significant other at home: No Do you presently have visiting nurse or other home services: Yes (daughter is her sustainability manager) Alcohol intake: never Comment: pt refusing alarms Patient Tobacco Use Status: Current everyday Tobacco user Tobacco use type: Cigarette Cigarette Packs Per Day: 1 Years Smoked: 35 +/- Second Hand Smoke Exposure: No service: No Current occupational status: unemployed Review of Systems Const Denies chills and Denies fever(s) Card Denies chest pain, Denies dyspnea and Denies dyspnea on exertion Resp Denies cough, Denies dyspnea and Denies dyspnea on exertion GI Denies hematochezia and Denies change in bowel habits Denies hematuria Musc Denies back pain and Denies limited range of motion Neuro Denies focal weakness and Denies convulsions Psych Denies depression and Denies mood swings Physical Exam Const Other: Morbidly obese General: comfortable and no acute distress Orientation/consciousness: patient oriented x3 Neck Neck: Yes no lymphadenopathy Resp Auscultation: clear to auscultation bilaterally Cardio Rhythm: regular rhythm GI Palpation (GI): Soft to palpation, nontender and no guarding Skin Other: Multiple areas of stigmata of previous folliculitis/inflamed skin glands all over the body mostly of the torso with skin darkening; no abscess or areas of fluctuance or cellulitis at this time Neuro General: patient oriented x3 Assessment & Plan Assessment & Plan (1) Hidradenitis suppurativa: Code(s): L73.2 - Hidradenitis suppurativa Plan: She has multiple areas of previously swollen glands all over the body especially the torso. The seems to be consistent with diffuse hidradenitis suppurativa. There is no surgical intervention necessary at this time. I told her that it would be best for her to be seen by a process control programmer as treatment would be systemic I did tell her that if she develops any abscess, she is welcome to come to the office to have these drained. (2) Morbid obesity: Code(s): E66.01 - Morbid (severe) obesity due to excess calories Plan: She has extremely morbid obesity. I did explain to her the benefits of weight loss. I explained to her that obesity is a factor for her hidradenitis. I had offered to arrange for her to be seen by our weight management clinic but she did not want this. She says that she will try to lose weight on her own. Coding Level of Care Code New Pt Level 3 (97267) Diagnoses Hidradenitis suppurativa L73.2 Morbid obesity E66.01
[2023-07-17 10:32] VITALS: BMI 55.8
== END 2023-07-17 10:46 | disposition home or self-care (01) ==
PROVIDERS: PCP Family Medicine; Visit Provider Surgery
DX: L73.2 Hidradenitis suppurativa (principal); E66.01 Morbid (severe) obesity due to excess calories
CPT/HCPCS: 99203

== ENCOUNTER → 2023-07-17 10:12 | Outpatient (BNVA) | payer OTHER, SELFPAY ==
[2022-10-22 13:00] VITALS: BP 128/72; BP 148/88; BMI 63.7
[2023-01-30 14:13] VITALS: BP 140/60
== END ==
PROVIDERS: PCP Family Medicine; Visit Provider Surgery
DX: L73.2 Hidradenitis suppurativa (principal); E66.01 Morbid (severe) obesity due to excess calories; Z68.43 Body mass index [BMI] 50.0-59.9, adult
CPT/HCPCS: 99202

== ENCOUNTER 2023-09-17 08:20 | Outpatient (REF) | payer OTHER, SELFPAY ==
[2022-10-22 13:00] VITALS: BP 128/72; BP 148/88; BMI 63.7
[2023-01-30 14:13] VITALS: BP 140/60
--- NOTE | ~2023-09-17 | FL_ITS ---
EXAMINATION: XR FLUOROSCOPY UPPER GI WITH AIR CLINICAL INFORMATION: Epigastric pain COMPARISON: None TECHNIQUE: Fluoroscopic air contrast upper GI examination was performed utilizing standard techniques with thin and thick barium and effervescent granules. Numerous spot images were obtained. FINDINGS: Lateral cine images of the oropharynx and hypopharynx demonstrate normal swallow mechanism with normal epiglottic inversion and soft palate elevation. On the first swallow, there was laryngeal penetration and a small amount of aspiration to the level of the true cords. This did not progress into the subglottic trachea. Tiny amount of posterior nasopharyngeal reflux was noted. Hypopharyngeal structures appear normal without evidence of mass or diverticulum. There was very mild cricopharyngeal achalasia present. Dual and single contrast images of the esophagus demonstrate normal caliber, contour, and mucosal pattern. No evidence of stricture, mass, or ulcerations identified. Esophageal peristalsis was normal. Small type I hiatal hernia is present. No significant gastroesophageal reflux was seen during the course of the examination and on reflux views. Dual contrast and single contrast images of the stomach demonstrated a normal contour. There is residual mobile material within the lumen of the stomach consistent with retained food (RF #1-8). This may indicate a recent meal or possibly gastroparesis. Contrast remained within the fundus of the stomach, which cleared on decubitus imaging. A few small foci of contrast pooling in the body and antrum of the stomach may represent small superficial mucosal erosions. There may be small polyps present as well as static filling defects are evident predominantly in the body. Mild gastric fold thickening suggesting gastritis. Contrast freely passed into the gastric antrum and duodenal bulb without delay. Single and air-contrast images of the duodenal bulb demonstrate no abnormality. The duodenal sweep has a normal appearance, course, and mucosal fold appearance. No malrotation. The imaged proximal jejunum has a normal fold pattern and caliber. FLUOROSCOPY TIME: 5 minutes 26 seconds Number of Spot Images: 3 Number of Cine: 16 DOSE AREA PRODUCT: 5331 uGy-m2 (microgray-meter squared) FL/FL barium swallow IMPRESSION: 1. Trace laryngeal penetration to the level of the true cords with no subglottic aspiration. 2. Small type I hiatal hernia. 3. There is residual mobile food within the stomach suggesting gastroparesis or possibly a recent meal. 4. Normal-appearing esophagus with no evidence of reflux. Very mild cricopharyngeal achalasia. 5. Multiple small areas of pooling in the fundus and body the stomach that may represent small mucosal erosions. There are scattered filling defects as well predominantly in the gastric body representing small hyperplastic polyps. 6. Mild gastric fold thickening representing gastritis. Recommend correlation with EGD This procedure was performed by Wayne Leger PA-C, and supervised by Dr. Olmedo
== END 2023-09-17 08:21 | disposition home or self-care (01) ==
LOC: HO.XRAY 08:20
PROVIDERS: PCP Family Medicine; Visit Provider Family Medicine
DX: R10.13 Epigastric pain (principal)
CPT/HCPCS: 74220

== ENCOUNTER → 2023-09-17 08:55 | Outpatient (BNV) | payer OTHER, SELFPAY ==
[2022-10-22 13:00] VITALS: BP 128/72; BP 148/88; BMI 63.7
[2023-01-30 14:13] VITALS: BP 140/60
== END ==
PROVIDERS: PCP Family Medicine; Visit Provider Radiology Diagnostic Radiology
DX: R10.13 Epigastric pain (principal)
CPT/HCPCS: 74246

== ENCOUNTER 2023-09-25 19:02 | Emergency (ER) | payer OTHER, SELFPAY ==
[2022-10-22 13:00] VITALS: BP 128/72; BP 148/88; BMI 63.7
[2023-01-30 14:13] VITALS: BP 140/60
--- NOTE | 2023-09-25 | ECG_ITS ---
Test Reason : CHEST PAIN Blood Pressure : / mmHG Vent. Rate : 061 BPM Atrial Rate : 061 BPM P-R Int : 178 ms QRS Dur : 082 ms QT Int : 454 ms P-R-T Axes : 066 037 043 degrees QTc Int : 457 ms Normal sinus rhythm Cannot rule out Anterior infarct , age undetermined - could be related to body habitus and lead placement Abnormal ECG No significant changes when compared with the previous EKG of 14 jun 2023 Referred By: Generic ED Physician Electronically Signed By:NEIL MCKNIGHT
[2023-09-25 19:22] LABS: Basophils Absolute Auto 0.1 X10*3/uL (0.0-0.2); Hemoglobin 12.9 g/dl (12.0-16.0); Monocytes Absolute Auto 0.9 X10*3/uL (0.1-1.2); PLT CLUMP 1; SCAN SMEAR FLAG 1
[2023-09-25 19:23] LABS: Basophils Percent Auto 0.9 % (0-2); Eosinophils Absolute Auto 0.6 X10*3/uL (0.0-0.4); Hematocrit 38.6 % (37.0-47.0); Imm Gran Abs Auto 0.04 X10*3/uL (0.00-0.03); Imm Gran Pct Auto 0.3 % (0.0-0.4); Lymphocytes Percent Auto 42.7 % (20-40); Mean Corpuscular HGB Conc 33.4 g/dl (31.0-35.0); Mean Corpuscular Hemoglobin 30.3 pg (27.0-33.0); Mean Corpuscular Volume 90.6 fL (80.0-98.0); Monocytes Percent Auto 7.5 % (2-11); Neutrophils Absolute Auto 5.1 x10*3/uL (2.0-8.3); Neutrophils Percent Auto 43.6 % (45-73); Platelet Count 272 X10*3/uL (160-400); Red Blood Count 4.26 X10*6/uL (4.20-5.50); Red Cell Distribution Width 14.2 % (11.0-16.0); White Blood Count 11.7 X10*3/uL (4.8-10.8)
[2023-09-25 19:24] VITALS: BP 144/90; PULSE 64; O2SAT 99
[2023-09-25 19:25] VITALS: BP 148/94; RESP 17; TEMP 36.6; O2SAT 98; BMI 62.4
[2023-09-25 19:27] LABS: MANUAL DIFF FLAG NO
[2023-09-25 19:38] LABS: Alanine Aminotransferase 20 U/L (0-31); Albumin Level 3.5 g/dL (3.5-5.0); Alkaline Phosphatase 88 U/L (39-117); Anion Gap 13 (12-20); Aspartate Amino Transferase 23 U/L (5-31); Bilirubin Total 0.2 mg/dL (0.0-1.0); Blood Urea Nitrogen 15 mg/dL (9-16); Carbon Dioxide 22 mmol/L (22-29); Chloride 110 mmol/L (96-108); Creatinine Clr Calc Pharmacy 130.6; Estimated Glomerular Filt Rate > 60; Glucose Random 100 mg/dL (60-115); Sodium 141 mmol/L (135-145); Total Protein 7.2 g/dL (6.5-8.0)
[2023-09-25 19:44] LABS: Troponin-I High Sensitivity < 2.7 ng/L (<3.5-17.0)
[2023-09-25 20:00] VITALS: BP 146/88; PULSE 67; RESP 16; TEMP 36.6; O2SAT 100
--- NOTE | 2023-09-25 20:07 | ED_ITS ---
HPI - Chest Pain General Chief Complaint: Chest Pain Stated Complaint: chest pain Time Seen by Provider: 09/25/23 19:26 Source: patient Mode of arrival: EMS Limitations: no limitations History of Present Illness HPI narrative: Patient obese with history of coronary artery disease chronic pain PTSD hypertension hyperlipidemia status post stent placement in LAD in 06/08 on Brilinta and aspirin dual therapy been in stable health post stent placement does get chest pain off and on very mild for last 2 days been having similar sharp pain in the left chest and left arm as she had when she had coronary event and stent was placed , pain is sharp lasting for only a few seconds reproducible and increases on movement of the left arm no shortness of breath no diaphoresis or palpitation Related Data Home Medications Medication Instructions Recorded Confirmed baclofen 10 mg tablet 10 mg PO TID PRN muscle spasm 11/03/20 07/22/23 albuterol sulfate 90 mcg/actuation 2 puff PO Q4-6H PRN Wheezing 12/01/20 07/22/23 aerosol inhaler (Ventolin HFA) atorvastatin 80 mg tablet (Lipitor) 80 mg PO BEDTIME 12/01/20 07/22/23 fluticasone propionate 50 2 spray intranasal DAILY 12/01/20 07/22/23 mcg/actuation nasal spray,suspension blood pressure test kit-large #1 ea 12/19/20 07/22/23 topiramate 50 mg tablet 50 mg PO BID 12/19/20 07/22/23 cholecalciferol (vitamin D3) 50 50 mcg PO DAILY 03/13/22 07/22/23 mcg (2,000 unit) capsule mirtazapine 7.5 mg tablet 7.5 mg PO BEDTIME 06/17/22 07/22/23 aspirin 81 mg tablet,delayed 81 mg PO DAILY 07/01/22 07/22/23 release lisinopril 30 mg tablet 30 mg PO DAILY 07/01/22 07/22/23 metformin 500 mg tablet,extended 500 mg PO QPM 07/01/22 07/22/23 release 24 hr metoprolol succinate 50 mg 50 mg PO DAILY 07/01/22 07/22/23 tablet,extended release 24 hr omeprazole 20 mg capsule,delayed 20 mg PO DAILY 07/01/22 07/22/23 release ticagrelor 90 mg tablet (Brilinta) 90 mg PO BID 07/02/22 07/22/23 tramadol 50 mg tablet 50 mg PO Q8H PRN severe pain 10/24/22 07/22/23 capsaicin 0.025 % topical cream 1 appl topical BID PRN mild pain 10/25/22 07/22/23 metronidazole 0.75 % topical gel 1 appl topical DAILY PRN Rash 10/25/22 07/22/23 albuterol sulfate 2.5 mg/3 mL 2.5 mg inhalation Q4-6H PRN 11/15/22 07/22/23 (0.083 %) solution for nebulization Wheezing isosorbide mononitrate 30 mg 30 mg PO DAILY 11/15/22 07/22/23 tablet,extended release 24 hr Previous Rx's Medication Instructions Recorded ondansetron 4 mg disintegrating 4 mg PO Q6-8H PRN nausea and 02/13/23 tablet vomiting #7 tabs pyridoxine (vitamin B6) 100 mg 100 mg PO DAILY 90 days #90 tabs 04/14/23 tablet ezetimibe 10 mg tablet 10 mg PO DAILY #30 tabs 04/22/23 allopurinol 100 mg tablet 100 mg PO DAILY 90 days #90 tabs 07/01/23 Allergies Allergy/AdvReac Type Severity Reaction Status Date / Time penicillin G [PENICILLIN G] Allergy Severe DIFFICULTY Verified 09/25/23 20:20 BREATHING semaglutide [From Ozempic] AdvReac Severe Stomach Verified 09/25/23 20:20 Upset Review of Systems 2 Review of Systems: Yes all other systems are reviewed and are negative [facility] Past Medical History Medical History Morbid obesity Hidradenitis suppurativa CAD (coronary artery disease) Subsequent non-ST elevation myocardial infarction (NSTEMI) within 4 weeks of initial infarction Non-ST elevation [place] (NSTEMI) YAMILETH on CPAP Hyperlipidemia PTSD (post-traumatic stress disorder) Fatty liver Smoker Depression Obesity Leukocytosis Frequent UTI Asthma Mass of throat Chronic pain Kidney stone Migraine HTN (hypertension) Surgical History Stented coronary artery History of heart artery stent History of lumpectomy of left breast (10/22/21) History of lithotripsy History of endometrial ablation Hx of colonoscopy History of breast lump/mass excision History of tonsillectomy H/O: hysterectomy Family History Family History Father Hypertension Mother Hypertension Osteoporosis Hx of bilateral cataract extraction Paternal Grandmother Diabetes Sister Asthma Maternal Uncle Throat cancer Maternal Aunt Ovarian cancer Breast cancer Social History Social History Household Members: Children Housing: Apartment Are you a primary critical care rn to a significant other at home: No Do you presently have visiting nurse or other home services: Yes (daughter is her business services officer) Alcohol intake: never Comment: pt refusing alarms Patient Tobacco Use Status: Current everyday Tobacco user Tobacco use type: Cigarette Cigarette Packs Per Day: 1 Years Smoked: 35 +/- Smoked in Last 30 Days: Yes Second Hand Smoke Exposure: No Use of substances other than those prescribed or required for medical reasons: No Advance Directives: Yes Advance Directives on File: Yes Advance Directives Date on File: 10/28/22 service: No Current occupational status: unemployed Physical Exam 2 Vital Signs: Vital Signs: Last Vital Signs Temp 98.1 F 09/25/23 22:41 Pulse 53 09/25/23 22:41 Resp 17 09/25/23 22:41 BP 138/84 09/25/23 22:41 Pulse Ox 99 09/25/23 22:41 O2 Del Method Room Air 09/25/23 22:41 BMI result Body Mass Index 62.4 Appearance: Alert. Oriented X3. No acute distress. obes Eyes: no pallor ENT: Pharynx normal. Oral Mucosa moist Neck: Normal inspection. Neck supple. CVS: Normal heart rate and rhythm. Pulses normal. Left anterior or 2nd costal space tenderness left shoulder tenderness diffuse Respiratory: No respiratory distress. Equal air entry bilateral, no wheezing/rales/rhonchi Abdomen: Soft and nontender. Bowel sounds are present, no mass palpable Skin: Skin warm and dry. Normal skin color. Normal skin turgor. Extremities: No lower extremity edema. No calf tenderness Neuro: Oriented X 3. No motor deficit. Medications Administered Discontinued Medications Generic Name Dose Route Start Last Admin Trade Name Freq PRN Reason Stop Dose Admin Oxycodone HCl 10 mg 09/25/23 21:39 09/25/23 22:14 Oxycodone Hcl Immed Release 5 Mg Tablet PO 09/25/23 21:40 10 mg ONCE ONE Administration Medical Decision Making Medical Decision Making [facility] Narrative: Patient with atypical chest pain with history of coronary disease on Brilinta and aspirin no acute ischemic changes in the EKG 2 sets of cardiac enzymes negative patient has reproducible pain in the chest and the left arm feeling much better after pain medication patient does take tramadol at home will discharge patient home advised to continue her tramadol and follow with grocery worker Differential Diagnosis Differential Diagnoses: The differential diagnosis associated with the presentation includes ACS/musculoskeletal pain Admission/Observation Consideration of admission/observation: Escalation of care including admission/observation considered Lab Data [facility] Lab Attestation statement: I reviewed the patient's lab results. 09/25/23 19:16 09/25/23 19:16 Labs: Lab Results 09/25/23 09/25/23 Range/Units 19:16 21:37 WBC 11.7 H (4.8-10.8) X10*3/uL RBC 4.26 (4.20-5.50) X10*6/uL Hgb 12.9 (12.0-16.0) g/dl Hct 38.6 (37.0-47.0) % MCV 90.6 (80.0-98.0) fL MCH 30.3 (27.0-33.0) pg MCHC 33.4 (31.0-35.0) g/dl RDW 14.2 (11.0-16.0) % Plt Count 272 (160-400) X10*3/uL MPV CVICU NURSE Immature Gran % (Auto) 0.3 (0.0-0.4) % Neut % (Auto) 43.6 L (45-73) % Lymph % (Auto) 42.7 H (20-40) % [place] % (Auto) 7.5 (2-11) % Eos % (Auto) 5.0 H (0-4) % Baso % (Auto) 0.9 (0-2) % Lymph # (Auto) 5.0 H (1.2-4.9) X10*3/uL [place] # (Auto) 0.9 (0.1-1.2) X10*3/uL Eos # (Auto) 0.6 H (0.0-0.4) X10*3/uL Baso # (Auto) 0.1 (0.0-0.2) X10*3/uL Abs Immat Gran (auto) 0.04 H (0.00-0.03) X10*3/uL Absolute Neuts (auto) 5.1 (2.0-8.3) x10*3/uL Absolute Nucleated RBC 0.000 (0.0-0.012) X10*3/uL Nucleated RBC % (auto) 0.0 (0.0-0.2) /100WBC Sodium 141 (135-145) mmol/L Potassium 4.0 (3.3-5.1) mmol/L Chloride 110 H (96-108) mmol/L Carbon Dioxide 22 (22-29) mmol/L Anion Gap 13 (12-20) BUN 15 (9-16) mg/dL Creatinine 0.83 (0.5-1.4) mg/dL Estim Creat Clear Calc 130.6 Estimated GFR > 60 Random Glucose 100 (60-115) mg/dL Calcium 9.0 (8.4-10.2) mg/dL Total Bilirubin 0.2 (0.0-1.0) mg/dL AST 23 (5-31) U/L ALT 20 (0-31) U/L Alkaline Phosphatase 88 (39-117) U/L Troponin I High Sens < 2.7 < 2.7 (<3.5-17.0) ng/L Total Protein 7.2 (6.5-8.0) g/dL Albumin 3.5 (3.5-5.0) g/dL Independent Interpretation I performed an independent interpretation of an: EKG Interpretation: Normal sinus rhythm heart rate 61 beats per minute poor progression of R-waves in anterior leads no acute ST T wave changes no acute ischemia Discharge Plan Discharge Clinical Impression: Chest pain Patient Disposition: Home, Self-Care Instructions: Chest Pain (ED) Additional Instructions: Continue medications as prescribed by her grocery worker The chest pain is likely musculoskeletal in nature Take tramadol as prescribed by your PCP and follow with grocery worker Continuar con los medicamentos recetados por [facility] cardi?logo. Es probable que el dolor en el pecho sea de naturaleza musculoesquel?marsha. [place] tramadol seg?n lo recetado por [facility] PCP y siga con el cardi?logo. Prescriptions: No Action ezetimibe 10 mg tablet 10 mg PO DAILY Qty: 30 6RF allopurinol 100 mg tablet 100 mg PO DAILY 90 Days Qty: 90 1RF albuterol sulfate [Ventolin HFA] 90 mcg/actuation HFA aerosol inhaler 2 puff PO Q4-6H PRN (Reason: Wheezing) fluticasone propionate 50 mcg/actuation spray,suspension 2 spray intranasal DAILY atorvastatin [Lipitor] 80 mg Tablet 80 mg PO BEDTIME omeprazole 20 mg capsule,delayed release(DR/EC) 20 mg PO DAILY lisinopril 30 mg tablet 30 mg PO DAILY metformin 500 mg tablet extended release 24 hr 500 mg PO QPM capsaicin 0.025 % cream 1 appl topical BID PRN (Reason: mild pain) metronidazole 0.75 % gel 1 appl topical DAILY PRN (Reason: Rash) ondansetron 4 mg tablet,disintegrating 4 mg PO Q6-8H PRN (Reason: nausea and vomiting) Qty: 7 0RF baclofen 10 mg tablet 10 mg PO TID PRN (Reason: muscle spasm) topiramate 50 mg tablet 50 mg PO BID (DME) blood pressure test kit-large Kit See Rx Instructions .ROUTE DIRECTED Qty: 1 Rx Instructions: As directed tramadol 50 mg tablet 50 mg PO Q8H PRN (Reason: severe pain) cholecalciferol (vitamin D3) 50 mcg (2,000 unit) capsule 50 mcg PO DAILY mirtazapine 7.5 mg tablet 7.5 mg PO BEDTIME Brilinta 90 mg tablet 90 mg PO BID metoprolol succinate 50 mg tablet extended release 24 hr 50 mg PO DAILY aspirin 81 mg tablet,delayed release (DR/EC) 81 mg PO DAILY isosorbide mononitrate 30 mg tablet extended release 24 hr 30 mg PO DAILY albuterol sulfate 2.5 mg /3 mL (0.083 %) solution for nebulization 2.5 mg inhalation Q4-6H PRN (Reason: Wheezing) pyridoxine (vitamin B6) 100 mg tablet 100 mg PO DAILY 90 Days Qty: 90 3RF Interventions: ED Discharge Assessment Last Done: 09/25/23 23:33 Discharge Date/Time: 09/25/23 23:34 Print Language: [place]
--- NOTE | 2023-09-25 20:13 | PC.NURSE ---
PT laying in bed, reports intermittent chest pain. MD aware. Family at bedside. VSS.
[2023-09-25 22:06] LABS: Troponin-I High Sensitivity < 2.7 ng/L (<3.5-17.0)
[2023-09-25] MEDS: oxyCODONE HCl Immed Release 5 MG TABLET 10 MG PO (22:14)
[2023-09-25 22:41] VITALS: BP 138/84; PULSE 53; RESP 17; TEMP 36.7; O2SAT 99
== END 2023-09-25 23:34 | disposition home or self-care (01) ==
PROVIDERS: Emergency Provider Internal Medicine; PCP Family Medicine
DX: R07.89 Other chest pain (principal); I25.10 Atherosclerotic heart disease of native coronary artery without angina pectoris; F17.210 Nicotine dependence, cigarettes, uncomplicated; Z79.899 Other long term (current) drug therapy
CPT/HCPCS: 36415; 80053; 84484; 85025; 93005; 99283; 99285

== ENCOUNTER → 2023-09-25 19:12 | Outpatient (BNV) | payer OTHER, SELFPAY ==
[2022-10-22 13:00] VITALS: BP 128/72; BP 148/88; BMI 63.7
[2023-01-30 14:13] VITALS: BP 140/60
== END ==
PROVIDERS: Emergency Provider Internal Medicine; PCP Family Medicine; Visit Provider Internal Medicine
DX: R94.31 Abnormal electrocardiogram [ECG] [EKG] (principal)
CPT/HCPCS: 93010

== ENCOUNTER 2023-10-07 13:04 | Outpatient (REF) | payer OTHER, SELFPAY ==
[2022-10-22 13:00] VITALS: BP 128/72; BP 148/88; BMI 63.7
[2023-01-30 14:13] VITALS: BP 140/60
--- NOTE | ~2023-10-07 | US_ITS ---
EXAMINATION: US RETROPERITONEAL LIMITED (RENAL ONLY) CLINICAL INFORMATION: Calculus of kidney. COMPARISON: CT abdomen and pelvis 02/17/2023. Renal ultrasound 12/05/2022. Ultrasound abdomen complete 07/05/2021. TECHNIQUE: Real-time imaging of the kidneys. Limited visualization due to bowel gas. FINDINGS: RIGHT KIDNEY: 11.5 x 6.4 x 5.6 cm (SAG x AP x TRV). A 0.5 cm lower pole calculus. No hydronephrosis. Renal cortical thickness is normal. Limited visualization. LEFT KIDNEY: 11.5 x 5.2 x 4.6 cm (SAG x AP x TRV). Limited visualization. Renal cortical thickness is normal. Mid to lower pole 0.5 cm calculus. Mid pole 0.4 cm calculus. No hydronephrosis. US/US renal BI IMPRESSION: Bilateral nonobstructive renal calculi. No hydronephrosis.
== END 2023-10-07 13:05 | disposition home or self-care (01) ==
LOC: HO.US 13:04
PROVIDERS: PCP Family Medicine; Visit Provider Nurse Practitioner Family
DX: N20.0 Calculus of kidney (principal)
CPT/HCPCS: 76775

== ENCOUNTER 2023-10-21 13:36 | Outpatient (AMB) | payer OTHER, SELFPAY ==
[2022-10-22 13:00] VITALS: BP 128/72; BP 148/88; BMI 63.7
[2023-01-30 14:13] VITALS: BP 140/60
[2023-10-21 13:37] VITALS: BP 116/74; PULSE 57; BMI 62.1
--- NOTE | 2023-10-21 13:37 | MHC.OFFVIS ---
Intake Vital Signs 10/21/23 13:37 Height 5 ft 4 in Weight 361 lb 8.929 oz BMI 62.1 BP 116/74 Blood Pressure Location Lt brachial Position Sitting Pulse 57 Intake Visit Reasons: 6 MON FUP Intake Note: 6 month follow-up feeling ok Knife Operator Required: Yes Knife Operator Name: Meme smith Allergies penicillin G [PENICILLIN G] Allergy (Severe, Verified 09/25/23 20:20) DIFFICULTY BREATHING semaglutide [From Ozempic] Adverse Reaction (Severe, Verified 09/25/23 20:20) Stomach Upset Medication List - Last Reconciled 10/21/23 by Mars Hutchinson MD albuterol sulfate 90 mcg/actuation (Ventolin HFA) 2 puffs PO Q4-6H PRN albuterol sulfate 2.5 mg inhalation Q4-6H PRN allopurinol 100 mg PO DAILY 90 days aspirin 81 mg PO DAILY atorvastatin (Lipitor) 80 mg PO BEDTIME baclofen 10 mg PO TID PRN blood pressure test kit-large As directed capsaicin 0.025% 1 appl topical BID PRN cholecalciferol (vitamin D3) 50 mcg PO DAILY ezetimibe 10 mg PO DAILY fluticasone propionate 50 mcg/actuation 2 sprays intranasal DAILY isosorbide mononitrate ER 30 mg PO DAILY lisinopril 30 mg PO DAILY metformin ER 500 mg PO QPM metoprolol succinate ER 50 mg PO DAILY metronidazole 0.75% 1 appl topical DAILY PRN mirtazapine 7.5 mg PO BEDTIME omeprazole 20 mg PO DAILY ondansetron 4 mg PO Q6-8H PRN pyridoxine (vitamin B6) 100 mg PO DAILY 90 days ticagrelor (Brilinta) 90 mg PO BID topiramate 50 mg PO BID tramadol 50 mg PO Q8H PRN HPI HPI Comments History of Present Illness Details Blaire comes for follow-up. History was obtained with help of skid strapper. Patient has been twice a day emergency room with chest pressure. Symptoms are similar but milder compared to heart attack. Both times she has been ruled out. She comes for follow-up. She says she has no exertional symptoms. Unfortunately she continues to smoke about a pack in 3 days. She takes all her medications. No bleeding issues or neurologic events. No exertional chest pain. No lightheadedness, syncope. No orthopnea, PND, leg edema. No prolonged palpitations. FORMERLY [facility], 1928–1983 Medical History Morbid obesity Hidradenitis suppurativa CAD (coronary artery disease) Subsequent non-ST elevation myocardial infarction (NSTEMI) within 4 weeks of initial infarction Non-ST elevation [place] (NSTEMI) YAMILETH on CPAP Hyperlipidemia PTSD (post-traumatic stress disorder) Fatty liver Smoker Depression Obesity Leukocytosis Frequent UTI Asthma Mass of throat Chronic pain Kidney stone Migraine HTN (hypertension) Surgical History Stented coronary artery History of heart artery stent History of lumpectomy of left breast (10/22/21) History of lithotripsy History of endometrial ablation Hx of colonoscopy History of breast lump/mass excision History of tonsillectomy H/O: hysterectomy Family History Father Hypertension Mother Hypertension Osteoporosis Hx of bilateral cataract extraction Paternal Grandmother Diabetes Sister Asthma Maternal Uncle Throat cancer Maternal Aunt Ovarian cancer Breast cancer Social History Household Members: Children Housing: Apartment Are you a primary home child care provider to a significant other at home: No Do you presently have visiting nurse or other home services: Yes (daughter is her out and out cigar maker hand) Alcohol intake: never Comment: pt refusing alarms Patient Tobacco Use Status: Current everyday Tobacco user Tobacco use type: Cigarette Cigarette Packs Per Day: 1 Years Smoked: 35 +/- Second Hand Smoke Exposure: No Advance Directives Date on File: 10/28/22 service: No Current occupational status: unemployed Review of Systems Const Denies chills, Denies fatigue, Denies fever(s), Denies frequent falls, Denies weakness, Denies weight gain and Denies weight loss ENT Denies dizziness Card Denies chest pain, Denies leg edema, Denies lightheadedness, Denies palpitations, Denies dyspnea, Denies dyspnea on exertion, Denies orthopnea and Denies other (loss of consciousness) Resp Denies cough, Denies dyspnea and Denies dyspnea on exertion GI Denies hematochezia and Denies change in stool character Musc Denies abnormal gait, Denies muscle weakness, Denies numbness, Denies radiating pain into limb and Denies tingling Neuro Denies abnormal gait, Denies dizziness, Denies frequent falls, Denies numbness, Denies tingling and Denies weakness Endo Denies fatigue and Denies palpitations Physical Exam Vital Signs: Last Vital Signs Pulse 57 10/21/23 13:37 BP 116/74 10/21/23 13:37 BMI result Body Mass Index 62.1 Const Other: Morbid obesity General: cooperative, healthy appearing, comfortable and no acute distress Orientation/consciousness: patient oriented x3 Neck Neck: Yes normal visual inspection Resp Effort & Inspection: normal respiratory effort Auscultation: clear to auscultation bilaterally, no crackles, no rales, no rhonchi and no wheezes Cardio Jugular venous distension: no JVD Rate: regular rate Rhythm: regular rhythm Heart sounds: S1 normal heart sound present, S2 normal heart sound present, no gallops, no murmurs and no rubs Neuro General: patient oriented x3 Extrem Other: Right radial catheterization site well healed, easily palpable radial pulse, right hand assessment normal General: Yes normal to inspection Psych Appearance: grossly normal Mental Status: mental status grossly normal Speech and movement: Normal speech and movement present Assessment & Plan Assessment & Plan (1) CAD (coronary artery disease): Code(s): I25.10 - Atherosclerotic heart disease of [place] coronary artery without angina pectoris Plan: CAD with drug-eluting stent to proximal LAD for acute coronary syndrome October of 2022. Has been years since dual antiplatelet therapy. Given her young age and multiple risk factors and an acute coronary syndrome I will pursued prolonged dual antiplatelet therapy. Will reduce Brilinta to 60 mg b.i.d. as per trials. Continue aspirin therapy. Continue aggressive risk factor modification. Importance of complete smoking cessation was discussed again. She understands agrees continue participate in weight loss program. Aggressive diabetes management goal hemoglobin A1c less than 7%. Continue high-intensity statin therapy with target goal LDL less than 70 mg/dL. Advised lipid panel near future. Continue aggressive blood pressure control, see below. (2) HTN (hypertension): Code(s): I10 - Essential (primary) hypertension Plan: Hypertension which is currently well optimized advised to monitor blood pressure at home maintain a log. Goal blood pressure less than 130/84. Importance of good blood pressure control was discussed. Low-salt diet was discussed. She understands and agrees. Continue participate in aggressive weight loss program. Will follow up in the clinic in 1 year's time, sooner p.r.n.. Thank you for allowing me to partake in the care Orders: Orders NM cardiolite stress test 2 Weeks R07.89 - Other chest pain, R07.9 - Chest pain, unspecified Lipid Panel Today I25.10 - Atherosclerotic heart disease of [place] coronary artery without angina pectoris CA stress test Today R07.89 - Other chest pain Medications: New ticagrelor (Brilinta) 60 mg PO BID 60 tabs 11RF R07.89 - Other chest pain Coding Level of Care Code Est Pt Level 4 (64143) Diagnoses CAD (coronary artery disease) I25.10 HTN (hypertension) I10
== END 2023-10-21 14:10 | disposition home or self-care (01) ==
PROVIDERS: PCP Family Medicine; Visit Provider Internal Medicine Cardiovascular Disease
DX: I25.10 Atherosclerotic heart disease of native coronary artery without angina pectoris (principal); I10 Essential (primary) hypertension
CPT/HCPCS: 99214

== ENCOUNTER 2023-10-21 13:36 | Outpatient (REF) | payer OTHER, SELFPAY ==
[2022-10-22 13:00] VITALS: BP 128/72; BP 148/88; BMI 63.7
[2023-01-30 14:13] VITALS: BP 140/60
[2023-10-21 16:44] LABS: Cholesterol 115 mg/dL (<200); HDL Cholesterol 33 mg/dL (>40); LDL Cholesterol Calculated 65 mg/dL (<100); Triglycerides 88 mg/dL (<150)
== END 2023-10-21 13:37 | disposition home or self-care (01) ==
LOC: HO.LAB 13:36
PROVIDERS: PCP Family Medicine; Visit Provider Internal Medicine Cardiovascular Disease
DX: I25.10 Atherosclerotic heart disease of native coronary artery without angina pectoris (principal); I10 Essential (primary) hypertension; R07.89 Other chest pain; Z79.899 Other long term (current) drug therapy
CPT/HCPCS: 36415; 80061; 99212

== ENCOUNTER 2023-10-28 14:52 | Outpatient (AMB) | payer OTHER, SELFPAY ==
[2022-10-22 13:00] VITALS: BP 128/72; BP 148/88; BMI 63.7
[2023-01-30 14:13] VITALS: BP 140/60
--- NOTE | 2023-10-28 14:55 | A.OFFVIS_ITS ---
Intake Intake Visit Reasons: 6m/US(set) Intake Note: Patient presents today for a follow up on U/S Meds- Vitamin B6, Allopurinol Allergies to Antibiotic- Penicillins Blood Thinner- Aspirin Assistant Production Editor Required: Yes Assistant Production Editor Name: JC JENSEN-CMI Accompanied by: Self / Same As Patient Allergies penicillin G [PENICILLIN G] Allergy (Severe, Verified 10/28/23 22:39) DIFFICULTY BREATHING semaglutide [From Ozempic] Adverse Reaction (Severe, Verified 10/28/23 22:39) Stomach Upset Medication List - Last Reconciled 10/28/23 by BENI Win- albuterol sulfate 90 mcg/actuation (Ventolin HFA) 2 puffs PO Q4-6H PRN albuterol sulfate 2.5 mg inhalation Q4-6H PRN allopurinol 100 mg PO DAILY 90 days aspirin 81 mg PO DAILY atorvastatin (Lipitor) 80 mg PO BEDTIME baclofen 10 mg PO TID PRN blood pressure test kit-large As directed capsaicin 0.025% 1 appl topical BID PRN cholecalciferol (vitamin D3) 50 mcg PO DAILY ezetimibe 10 mg PO DAILY fluticasone propionate 50 mcg/actuation 2 sprays intranasal DAILY isosorbide mononitrate ER 30 mg PO DAILY lisinopril 30 mg PO DAILY metformin ER 500 mg PO QPM metoprolol succinate ER 50 mg PO DAILY metronidazole 0.75% 1 appl topical DAILY PRN mirtazapine 7.5 mg PO BEDTIME omeprazole 20 mg PO DAILY ondansetron 4 mg PO Q6-8H PRN pyridoxine (vitamin B6) 100 mg PO DAILY 90 days ticagrelor (Brilinta) 60 mg PO BID topiramate 50 mg PO BID tramadol 50 mg PO Q8H PRN HPI HPI Comments History of Present Illness Details Balire is a pleasant 48 year old [place] speaking patient of Dr. Bertrand. She has a past medical history of asthma, coronary artery disease, chronic pain, depression, fatty liver, hypertension, nephrolithiasis, migraines, non ST-elevation NM, obesity, obstructive sleep apnea on CPAP, PTSD and nicotine dependence. She presents to the office today for follow-up of her nephrolithiasis and recurrent urinary tract infections. In discussion with the patient today she reports to be doing and feeling well via urologically. She does discuss following up with GI for ongoing gastric issues she has been having and has since come off of Ozempic as she feels this was a contributing factor. Recent renal imaging results reviewed with the patient today. Right kidney with 0.5 cm lower pole calculus no hydronephrosis. Left kidney with 0.5 cm mid to lower pole calculus. Mid pole 0.4 left calculus. No hydronephrosis. No change in the renal calculi since prior CT. She otherwise denies hematuria, dysuria, foul smelling urine, changes to urinary stream, flank pain, fever, and or chills. She denies any bothersome urinary issues or concerns at this time. She reports compliance with vitamin B6 and alluprinol as prescribed. She continues to drink plenty of water daily. In office urinalysis results reviewed with the patient today. She denies having had any UTIs since her last office visit here approximately 6 months ago. She otherwise offers no other issues or concerns at this time. PREVIOUS OFFICE INFORMATION----- Nephrolithiasis September 2020 [facility] distal left ureteric stone with mild hydro in bilateral punctate stones 6-7 in each kidney - January 2022 right proximal ureteric ston e Recent stone passage right proximal ureter 06/08 Imaging reviewed no further stones seen in kidney Continue with vitamin B6 and 6 month follow-up They are here for - further evaluation for nephrolithiasis , Urolithiasis was diagnosed - number of years ago The patient previously had kidney stones whose composition w - 03/08 mixed calcium oxalate 80% monohyd rate Laboratory investigations include - prior usage of Topamax, diabetic 24 Hour urine evaluation - none on file Prior treatment(s) include - has had ESWL bilateral - 03/08 right ureteroscopy Prior imaging includes - September 2020 - a CT - stone protocol - left 4 mm distal stone with mild hydronephrosis. Punctate stones 1-2 mm 5-6 in each kidney - 10/08 renal ultrasound follow-up right 3 mm stone, left no stones seen - 03/08 right proximal ureteric stone - 06/08 right proximal ureteric stone Current therapeutic plan will be - to continue with imaging surveillance - General advice to maintain good fluid intake for urine greater than 1.5 L per day, - reduce salt and reduce protein and aci d loads was provided, add lemon juice [address] [facility] Medical History Morbid obesity Hidradenitis suppurativa CAD (coronary artery disease) Subsequent non-ST elevation myocardial infarction (NSTEMI) within 4 weeks of initial infarction Non-ST elevation [place] (NSTEMI) YAMILETH on CPAP Hyperlipidemia PTSD (post-traumatic stress disorder) Fatty liver Smoker Depression Obesity Leukocytosis Frequent UTI Asthma Mass of throat Chronic pain Kidney stone Migraine HTN (hypertension) Surgical History Stented coronary artery History of heart artery stent History of lumpectomy of left breast (10/22/21) History of lithotripsy History of endometrial ablation Hx of colonoscopy History of breast lump/mass excision History of tonsillectomy H/O: hysterectomy Family History Father Hypertension Mother Hypertension Osteoporosis Hx of bilateral cataract extraction Paternal Grandmother Diabetes Sister Asthma Maternal Uncle Throat cancer Maternal Aunt Ovarian cancer Breast cancer Social History Household Members: Children Housing: Apartment Are you a primary wound care physician to a significant other at home: No Do you presently have visiting nurse or other home services: Yes (daughter is her mobile lounge driver or operator) Alcohol intake: never Comment: pt refusing alarms Patient Tobacco Use Status: Current everyday Tobacco user Tobacco use type: Cigarette Cigarette Packs Per Day: 1 Years Smoked: 35 +/- Second Hand Smoke Exposure: No Advance Directives Date on File: 10/28/22 service: No Current occupational status: unemployed Review of Systems Const Reports as per HPI Eyes Reports no additional complaints ENT Reports no additional complaints Card Reports as per HPI Resp Reports as per HPI GI Reports as per HPI Reports as per HPI Musc Reports as per HPI Neuro Reports as per HPI Psych Reports as per HPI Endo Reports as per HPI Physical Exam Const General: cooperative, comfortable, no acute distress, well developed, alert and awake Nutritional Appearance: obese Orientation/consciousness: patient oriented x3 Limitations: no limitations HEENT Head: Yes normal to inspection, Yes normocephalic and Yes atraumatic Ears: hearing grossly normal bilaterally Eyes General: appearance normal, both eyes and all related structures Neck Neck: Yes normal visual inspection and Yes trachea midline Chest Chest palpation & inspection: normal inspection of the chest Resp Effort & Inspection: normal respiratory effort and able to speak in complete sentences Cardio Rate: regular rate GI Inspection: Yes normal to inspection General: Yes no CVA tenderness Back/Spine/Pelvis Back: no CVA tenderness Skin General skin exam: no rashes or lesions noted Neuro General: patient oriented x3 Extrem General: Yes normal to inspection Psych Appearance: grossly normal and well kempt Mental Status: mental status grossly normal Speech and movement: Normal speech and movement present and Clear speech present Affect: normal affect Attitude: cooperative Thought process: Normal thought process present Thought content: Normal thought content present Insight: Fair insight present (Psych) Judgement: Fair judgement present (Psych) Results AMB Urinalysis, Automated UA Leukoctes 0 Megha/uL Last Edit by Britany Mariemanju Marie [facility] on 10/28/23 15 :14 UA Nitrite Negative Last Edit by Britany Mariemanju Marie [facility] on 10/28/23 15: 14 UA Urobilinogen 0.2 mg/dL [facility] on 4 15:14 UA Protein 15 mg/dL Last Edit by Britany Mariemanju Marie [facility] on 10/28/23 15:1 4 UA pH 6.0 Last Edit by Britany Mariemanju Marie [facility] on 10/28/23 15:14 UA Blood 10 Peter/uL [facility] on 10/28/23 15:14 UA Specific [place] 1.015 Last Edit by Britany Mariemanju Marie [facility] on 15:14 UA Ketone Negative Last Edit by Britany Mariemanju Marie [facility] on 10/28/23 15:1 4 UA Bilirubin 0 mg/dL Last Edit [facility] on 10/28/23 15: 14 UA Glucose 0 mg/dL Last Edit by Britany Marie [facility] on 10/28/23 15:14 Results Reviewed Results Reviewed: Laboratory Last Values Urine pH (Auto) 6.0 10/28/23 14:56 Specific [place] (Auto) 1.015 10/28/23 14:56 Urine Protein (Auto) 15 mg/dL 10/28/23 14:56 Glucose (UA)(Auto) 0 mg/dL 10/28/23 14:56 Urine Ketones (Auto) Negative 10/28/23 14:56 Urine Blood (Auto) 10 Peter/uL 10/28/23 14:56 Urine Nitrite (Auto) Negative 10/28/23 14:56 Urine Bilirubin (Auto) 0 mg/dL 10/28/23 14:56 Urine Urobilinogen (Auto) 0.2 mg/dL 10/28/23 14:56 Leukocyte Esterase (Auto) 0 Megha/uL 10/28/23 14:56 Date of Service: 10/07/23 EXAMINATION: US RETROPERITONEAL LIMITED (RENAL ONLY) FINDINGS: RIGHT KIDNEY: 11.5 x 6.4 x 5.6 cm (SAG x AP x TRV). A 0.5 cm lower pole calculus. No hydronephrosis. Renal cortical thickness is normal. Limited visualization. LEFT KIDNEY: 11.5 x 5.2 x 4.6 cm (SAG x AP x TRV). Limited visualization. Renal cortical thickness is normal. Mid to lower pole 0.5 cm calculus. Mid pole 0.4 cm calculus. No hydronephrosis. IMPRESSION: Bilateral nonobstructive renal calculi. No hydronephrosis. Assessment & Plan Assessment & Plan (1) Nephrolithiasis: Comment: Calcium oxalate monohydrate 80% Code(s): N20.0 - Calculus of kidney (2) Chronic UTI (urinary tract infection): Code(s): N39.0 - Urinary tract infection, site not specified Plan In office urinalysis results reviewed with the patient today; as noted above. Recent renal imaging results reviewed with the patient today; as noted above. Discussed at length further treatment options of nephrolithiasis with surveillance monitoring versus surgical intervention; this was discussed at length; risks and benefits of these interventions were discussed Will continue with interval surveillance imaging monitoring Patient denies any bothersome urinary issues or concerns at this time. Continue with vitamin B6 and Allopurinol as prescribed. Educated, stressed, and encouraged on the importance of drinking plenty of water daily. Discussed at length importance of managing diabetes for improvement in overall health and well-being. Discussed at length importance of weight loss for overall health and well-being as well as limiting/quitting cigarette smoking. Discussed UTI prevention with D mannose supplement, vitamin-C, increasing fluid intake, behavioral therapy with timed voiding, perineal hygiene and postcoital voiding, and management of constipation with stool softeners and increased fiber intake. Renal ultrasound in 6 months Follow-up in 6 months with imaging to be completed prior; or sooner with any issues, concerns, and or questions. Orders: Orders US renal BI 6 Months N20.0 - Calculus of kidney AMB Urinalysis Automated Today R33.9 - Retention of urine, unspecified Patient Instructions: The patient had an opportunity to ask questions regarding the treatment plan. All questions were answered. Physical exam, labs, and imaging were discussed and reviewed in detail. As well as risks, benefits, and discussion of treatment choices. No major barriers to understanding were identified. The patient expressed understanding and agreement with the above treatment plan. The patient was made aware they should contact our office by phone for worsening of their current condition, the appearance of new symptoms, or with any questions or concerns. Compliance is encouraged with any medications and follow up testing that is ordered. It is a privilege to be allowed the opportunity to participate in? your urological care.? Again, if you have any questions or concerns If you have any questions or concerns please do not hesitate to contact me. The office is [phone]. This note is constructed using voice recognition software. While every effort has been made to ensure accuracy back up scan coordinator errors may have been included. Yours sincerely, BENI Win-NELI Coding Level of Care Code Est Pt Level 3 (96304) Diagnoses Nephrolithiasis N20.0 Chronic UTI (urinary tract infection) N39.0
== END 2023-10-28 15:41 | disposition home or self-care (01) ==
PROVIDERS: PCP Family Medicine; Visit Provider Nurse Practitioner Family
DX: N20.0 Calculus of kidney (principal); N39.0 Urinary tract infection, site not specified
CPT/HCPCS: 99213

== ENCOUNTER → 2023-10-28 14:52 | Outpatient (BNVA) | payer OTHER, SELFPAY ==
[2022-10-22 13:00] VITALS: BP 128/72; BP 148/88; BMI 63.7
[2023-01-30 14:13] VITALS: BP 140/60
== END ==
PROVIDERS: PCP Family Medicine; Visit Provider Nurse Practitioner Family
DX: N20.0 Calculus of kidney (principal); N39.0 Urinary tract infection, site not specified; R33.9 Retention of urine, unspecified
CPT/HCPCS: 81003; 99212

== ENCOUNTER 2023-10-29 09:58 | Outpatient (AMB) | payer OTHER, SELFPAY ==
[2022-10-22 13:00] VITALS: BP 128/72; BP 148/88; BMI 63.7
[2023-01-30 14:13] VITALS: BP 140/60
--- NOTE | 2023-10-29 10:04 | A.OFFVIS_ITS ---
Intake Vital Signs 10/29/23 10:05 Height 5 ft 4 in Weight 361 lb BMI 62.0 BP 131/60 Blood Pressure Location Lt brachial Position Sitting Pulse 62 Intake Visit Reasons: Abnormal barium swallow Intake Note: Patient follow up for abnormal and radiology results. Patient cc: abdominal pain with bloating and some swallowing problems. Hospital Staff Pharmacist Required: Yes Hospital Staff Pharmacist Name: [facility] Accompanied by: Self / Same As Patient Allergies penicillin G [PENICILLIN G] Allergy (Severe, Verified 10/29/23 10:03) DIFFICULTY BREATHING semaglutide [From Ozempic] Adverse Reaction (Severe, Verified 10/29/23 10:03) Stomach Upset Medication List - Last Reconciled 10/29/23 by Anita Kc PA-C albuterol sulfate 90 mcg/actuation (Ventolin HFA) 2 puffs PO Q4-6H PRN albuterol sulfate 2.5 mg inhalation Q4-6H PRN allopurinol 100 mg PO DAILY 90 days aspirin 81 mg PO DAILY atorvastatin (Lipitor) 80 mg PO BEDTIME baclofen 10 mg PO TID PRN blood pressure test kit-large As directed capsaicin 0.025% 1 appl topical BID PRN cholecalciferol (vitamin D3) 50 mcg PO DAILY ezetimibe 10 mg PO DAILY fluticasone propionate 50 mcg/actuation 2 sprays intranasal DAILY isosorbide mononitrate ER 30 mg PO DAILY lisinopril 30 mg PO DAILY metformin ER 500 mg PO QPM metoprolol succinate ER 50 mg PO DAILY metronidazole 0.75% 1 appl topical DAILY PRN mirtazapine 7.5 mg PO BEDTIME omeprazole 20 mg PO DAILY ondansetron 4 mg PO Q6-8H PRN pyridoxine (vitamin B6) 100 mg PO DAILY 90 days ticagrelor (Brilinta) 60 mg PO BID topiramate 50 mg PO BID tramadol 50 mg PO Q8H PRN HPI HPI Comments History of Present Illness Details A 48 y/o female Brilinta-hx CT-<1 year last seen 2021-She presents NPO- expecting- some type of procedure-referred for abnormal barium swallow She has difficulty swallowing-since she began Ozempic- about 1 year- she stopped about 10 months ago-continues to have sx-nausea on occasion will vomit and dysphagia No hematemesis, hematochezia, fevers or chills PFSH Medical History Morbid obesity Hidradenitis suppurativa CAD (coronary artery disease) Subsequent non-ST elevation myocardial infarction (NSTEMI) within 4 weeks of initial infarction Non-ST elevation CT (NSTEMI) YAMILETH on CPAP Hyperlipidemia PTSD (post-traumatic stress disorder) Fatty liver Smoker Depression Obesity Leukocytosis Frequent UTI Asthma Mass of throat Chronic pain Kidney stone Migraine HTN (hypertension) Surgical History Stented coronary artery History of heart artery stent History of lumpectomy of left breast (10/22/21) History of lithotripsy History of endometrial ablation Hx of colonoscopy History of breast lump/mass excision History of tonsillectomy H/O: hysterectomy Family History Father Hypertension Mother Hypertension Osteoporosis Hx of bilateral cataract extraction Paternal Grandmother Diabetes Sister Asthma Maternal Uncle Throat cancer Maternal Aunt Ovarian cancer Breast cancer Social History Household Members: Children Housing: Apartment Are you a primary early breastfeeding care specialist to a significant other at home: No Do you presently have visiting nurse or other home services: Yes (daughter is her production team leader) Alcohol intake: never Comment: pt refusing alarms Patient Tobacco Use Status: Current everyday Tobacco user Tobacco use type: Cigarette Cigarette Packs Per Day: 1 Years Smoked: 35 +/- Second Hand Smoke Exposure: No Advance Directives Date on File: 10/28/22 service: No Current occupational status: unemployed Review of Systems Const All systems reviewed & are unremarkable except as noted in HPI and below ENT Reports dysphagia Card Denies chest pain and Denies dyspnea Resp Denies dyspnea GI Reports dysphagia, Reports heartburn, Reports nausea and Reports vomiting Physical Exam Vital Signs: Last Vital Signs Pulse 62 10/29/23 10:05 BP 131/60 10/29/23 10:05 BMI result Body Mass Index 62.0 Resp Effort & Inspection: normal respiratory effort and able to speak in complete sentences Results Reviewed Results Reviewed: 08/2023 RDER #: [id number] FL/FL barium swallow IMPRESSION: 1. Trace laryngeal penetration to the level of the true cords with no subglottic aspiration. 2. Small type I hiatal hernia. 3. There is residual mobile food within the stomach suggesting gastroparesis or possibly a recent meal. 4. Normal-appearing esophagus with no evidence of reflux. Very mild cricopharyngeal achalasia. 5. Multiple small areas of pooling in the fundus and body the stomach that may represent small mucosal erosions. There are scattered filling defects as well predominantly in the gastric body representing small hyperplastic polyps. 6. Mild gastric fold thickening representing gastritis. Recommend correlation with EGD Assessment & Plan Assessment & Plan (1) Morbid obesity: Code(s): E66.01 - Morbid (severe) obesity due to excess calories Plan: Bariatric bed (2) Gastroparesis: Code(s): K31.84 - Gastroparesis (3) Dysphagia: Code(s): R13.10 - Dysphagia, unspecified (4) Nausea and vomiting: Comment: she has no teeth Code(s): R11.2 - Nausea with vomiting, unspecified (5) Encounter for screening colonoscopy: Code(s): Z12.11 - Encounter for screening for malignant neoplasm of colon (6) Chronic anticoagulation: Comment: Brilinta- Code(s): Z79.01 - crosscutter rolled glass (current) use of anticoagulants Plan: Typically discontinue 7 days prior to procedure-must be authorized by prescriber Plan CALL w/[phone] Cell Phone EGD/ colo anesthesia consult,-will need bariatric bed Anticoagulant must be authorized to discontinue 7 days Omit metformin day before No DM medications morning of procedures Omeprazole 40 Eat slowly small portions Medications: New omeprazole 40 mg (2 x 20 mg) PO DAILY 30 days 60 caps 5RF Patient Instructions: [phone] Cell Phone EGD/ colo anesthesia consult,-will need bariatric bed Anticoagulant must be authorized to discontinue 7 days Omit metformin day before No DM medications morning of procedures Omeprazole 40 Eat slowly small portions Coding Level of Care Code New Pt Level 4 (03413) Diagnoses Morbid obesity E66.01 Gastroparesis K31.84 Dysphagia R13.10 Nausea and vomiting R11.2 Encounter for screening colonoscopy Z12.11 Chronic anticoagulation Z79.01 Time Spent (min) 30 Comment interp
[2023-10-29 10:05] VITALS: BP 131/60; PULSE 62; BMI 62.0
== END 2023-10-29 10:32 | disposition home or self-care (01) ==
PROVIDERS: PCP Family Medicine; Visit Provider Physician Assistant
DX: E66.01 Morbid (severe) obesity due to excess calories (principal); K31.84 Gastroparesis; R13.10 Dysphagia, unspecified; R11.2 Nausea with vomiting, unspecified; Z12.11 Encounter for screening for malignant neoplasm of colon; Z79.01 Long term (current) use of anticoagulants
CPT/HCPCS: 99204

== ENCOUNTER → 2023-10-29 09:58 | Outpatient (BNVA) | payer OTHER, SELFPAY ==
[2022-10-22 13:00] VITALS: BP 128/72; BP 148/88; BMI 63.7
[2023-01-30 14:13] VITALS: BP 140/60
== END ==
PROVIDERS: PCP Family Medicine; Visit Provider Physician Assistant
DX: K31.84 Gastroparesis (principal); R13.10 Dysphagia, unspecified; R11.2 Nausea with vomiting, unspecified; E66.01 Morbid (severe) obesity due to excess calories; Z68.44 Body mass index [BMI] 60.0-69.9, adult; Z79.01 Long term (current) use of anticoagulants
CPT/HCPCS: 99202

== ENCOUNTER 2023-11-11 17:18 | Emergency (ER) | payer OTHER, SELFPAY ==
[2022-10-22 13:00] VITALS: BP 128/72; BP 148/88; BMI 63.7
[2023-01-30 14:13] VITALS: BP 140/60
--- NOTE | ~2023-11-11 | CT_ITS ---
EXAMINATION: CT ABDOMEN AND PELVIS WITH CONTRAST CLINICAL INFORMATION: Upper abdominal pain and tenderness COMPARISON: 02/17/2023 TECHNIQUE: Multidetector volumetric images were obtained from the superior aspect of the liver through the pubic symphysis following administration 100 mL of Omnipaque 350 intravenous contrast. Sagittal and coronal reformatted images were obtained on the technologist's workstation. Oral contrast: No This CT examination was performed using dose optimization techniques as appropriate, variously including the following: *Automated exposure control *Adjustment of mA and/or kV according to patient size (this includes techniques or standardized protocols for targeted exams where dose is matched to indication/reason for exam; i.e. extremities or head) *Use of iterative reconstruction technique DLP: 1645 mGy-cm FINDINGS: LUNG BASES: The visualized lung bases are unremarkable. LIVER, GALLBLADDER, AND BILIARY TREE: The liver is enlarged, measuring approximately 22 cm in length. No focal hepatic lesion or biliary ductal dilatation is present. The gallbladder is unremarkable with no evidence of radiopaque gallstones, gallbladder wall thickening, or obvious pericholecystic inflammatory changes. PANCREAS: No peripancreatic inflammation. Redemonstrated tiny calcification along the posterior body of the pancreas. SPLEEN: Unremarkable. ADRENAL GLANDS: Unremarkable. KIDNEYS AND URETERS: Bilateral nephrograms are symmetric. No hydronephrosis or obstructing calculus identified. There are multiple scattered calculi throughout both kidneys measuring up to 5 mm. BLADDER: Unremarkable. GASTROINTESTINAL TRACT: No evidence of bowel obstruction or significant wall thickening. The appendix appears collapsed. No free fluid or free air is seen. ABDOMINAL WALL: No significant hernia is appreciated. LYMPH NODES: Normal. VASCULAR: Scattered atherosclerotic calcifications. PELVIC VISCERA: Patient is status post hysterectomy. OSSEOUS STRUCTURES: Multilevel degenerative changes in the spine. CT/CT abdomen pelvis w IV con IMPRESSION: 1. No acute findings identified in the abdomen/pelvis. 2. Multiple bilateral renal calculi without hydronephrosis. 3. Hepatomegaly.
--- NOTE | ~2023-11-11 | XR_ITS ---
EXAMINATION: XR chest 1V CLINICAL INFORMATION: Reason for Exam chest pain COMPARISON: Prior chest x-ray 06/14/2023 TECHNIQUE: Single portable frontal view. Tubes and lines: None Lungs and pleura: Both lungs are clear. Heart and mediastinum: The mediastinum is within normal limits.. Bones/soft tissue: Skeletal structures included are normal for patient's age. XR/XR chest 1V IMPRESSION: No radiographic evidence of acute cardiopulmonary disease.
--- NOTE | 2023-11-11 17:29 | ECG_ITS ---
Test Reason : CP Blood Pressure : / mmHG Vent. Rate : 068 BPM Atrial Rate : 068 BPM P-R Int : 176 ms QRS Dur : 076 ms QT Int : 390 ms P-R-T Axes : 064 035 041 degrees QTc Int : 414 ms Normal sinus rhythm Normal ECG When compared with ECG of 25-SEP-2023 19:12, No significant change was found Referred By: Aniceto Evans Electronically Signed By:Brent Aleman
[2023-11-11 17:41] VITALS: BP 133/67; PULSE 66; RESP 20; TEMP 36.6; O2SAT 98; BMI 54.9
--- NOTE | 2023-11-11 17:46 | ED_ITS ---
HPI - General Adult General Chief complaint: Abdominal Pain Stated complaint: chest pain, abd pain Time Seen by Provider: 11/11/23 22:32 History of Present Illness HPI narrative: The patient is a 8-year-old woman who says that she ate some chicken from [employer] yesterday morning at around 11:00. She only ate a little bit of the chicken thought there was something wrong with it. Not long after eating the chicken she developed epigastric pain, nausea, and vomiting. She says that she has had the upper abdominal pain and vomiting throughout the day yesterday and again today. She was not able this of the nausea and the vomiting. No shortness of breath. No fever. Related Data Home Medications Medication Instructions Recorded Confirmed baclofen 10 mg tablet 10 mg PO TID PRN muscle spasm 11/03/20 10/29/23 albuterol sulfate 90 mcg/actuation 2 puff PO Q4-6H PRN Wheezing 12/01/20 10/29/23 aerosol inhaler (Ventolin HFA) atorvastatin 80 mg tablet (Lipitor) 80 mg PO BEDTIME 12/01/20 10/29/23 fluticasone propionate 50 2 spray intranasal DAILY 12/01/20 10/29/23 mcg/actuation nasal spray,suspension blood pressure test kit-large #1 ea 12/19/20 10/29/23 topiramate 50 mg tablet 50 mg PO BID 12/19/20 10/29/23 cholecalciferol (vitamin D3) 50 50 mcg PO DAILY 03/13/22 10/29/23 mcg (2,000 unit) capsule mirtazapine 7.5 mg tablet 7.5 mg PO BEDTIME 06/17/22 10/29/23 aspirin 81 mg tablet,delayed 81 mg PO DAILY 07/01/22 10/29/23 release lisinopril 30 mg tablet 30 mg PO DAILY 07/01/22 10/29/23 metformin 500 mg tablet,extended 500 mg PO QPM 07/01/22 10/29/23 release 24 hr metoprolol succinate 50 mg 50 mg PO DAILY 07/01/22 10/29/23 tablet,extended release 24 hr omeprazole 20 mg capsule,delayed 20 mg PO DAILY 07/01/22 10/29/23 release tramadol 50 mg tablet 50 mg PO Q8H PRN severe pain 10/24/22 10/29/23 capsaicin 0.025 % topical cream 1 appl topical BID PRN mild pain 10/25/22 10/29/23 metronidazole 0.75 % topical gel 1 appl topical DAILY PRN Rash 10/25/22 10/29/23 albuterol sulfate 2.5 mg/3 mL 2.5 mg inhalation Q4-6H PRN 11/15/22 10/29/23 (0.083 %) solution for nebulization Wheezing isosorbide mononitrate 30 mg 30 mg PO DAILY 11/15/22 10/29/23 tablet,extended release 24 hr Previous Rx's Medication Instructions Recorded ondansetron 4 mg disintegrating 4 mg PO Q6-8H PRN nausea and 02/13/23 tablet vomiting #7 tabs pyridoxine (vitamin B6) 100 mg 100 mg PO DAILY 90 days #90 tabs 04/14/23 tablet ezetimibe 10 mg tablet 10 mg PO DAILY #30 tabs 04/22/23 allopurinol 100 mg tablet 100 mg PO DAILY 90 days #90 tabs 07/01/23 ticagrelor 60 mg tablet (Brilinta) 60 mg PO BID #60 tabs 10/21/23 omeprazole 20 mg capsule,delayed 40 mg (2 x 20 mg) PO DAILY 30 days 10/29/23 release #60 caps ondansetron 4 mg disintegrating 4 mg PO Q6H PRN nausea and 11/12/23 tablet vomiting #7 tabs sucralfate 1 gram tablet 1 g PO BID PRN abdominal pain #60 11/12/23 tabs Allergies Allergy/AdvReac Type Severity Reaction Status Date / Time penicillin G [PENICILLIN G] Allergy Severe DIFFICULTY Verified 10/29/23 10:03 BREATHING semaglutide [From Ozempic] AdvReac Severe Stomach Verified 10/29/23 10:03 Upset Review of Systems 2 Review of Systems: Yes all other systems are reviewed and are negative [facility] Past Medical History Medical History Morbid obesity Hidradenitis suppurativa CAD (coronary artery disease) Subsequent non-ST elevation myocardial infarction (NSTEMI) within 4 weeks of initial infarction Non-ST elevation MA (NSTEMI) YAMILETH on CPAP Hyperlipidemia PTSD (post-traumatic stress disorder) Fatty liver Smoker Depression Obesity Leukocytosis Frequent UTI Asthma Mass of throat Chronic pain Kidney stone Migraine HTN (hypertension) Surgical History Stented coronary artery History of heart artery stent History of lumpectomy of left breast (10/22/21) History of lithotripsy History of endometrial ablation Hx of colonoscopy History of breast lump/mass excision History of tonsillectomy H/O: hysterectomy Family History Family History Father Hypertension Mother Hypertension Osteoporosis Hx of bilateral cataract extraction Paternal Grandmother Diabetes Sister Asthma Maternal Uncle Throat cancer Maternal Aunt Ovarian cancer Breast cancer Social History Social History Household Members: Children Housing: Apartment Are you a primary health care consultant to a significant other at home: No Do you presently have visiting nurse or other home services: Yes (daughter is her senior scrum master) Alcohol intake: never Comment: pt refusing alarms Patient Tobacco Use Status: Current everyday Tobacco user Tobacco use type: Cigarette Cigarette Packs Per Day: 1 Years Smoked: 35 +/- Second Hand Smoke Exposure: No Advance Directives Date on File: 10/28/22 service: No Current occupational status: unemployed Physical Exam ED Vital Signs: Vital Signs - 24 hr 11/11/23 17:41 11/11/23 21:56 11/12/23 02:04 Temperature 98 F 98.0 F 97.7 F Pulse Rate 66 55 52 Respiratory Rate 20 19 16 Blood Pressure 133/67 125/62 127/63 Pulse Oximetry 98 99 98 Oxygen Delivery Method Room Air Room Air Room Air BMI result Body Mass Index 54.9 Const Other: The patient is a chronically ill-appearing 48-year-old who was awake and alert. She does not appear toxic or uncomfortable. HENMT Other: Face is symmetrical. The patient is edentulous. Mucous membranes are moist. Eyes Other: Pupils are round and equal. Conjunctivae clear. Neck Other: Neck is supple, no JVD Resp Effort & Inspection: normal respiratory effort Auscultation: clear to auscultation bilaterally Cardio Rate: regular rate Rhythm: regular rhythm Heart sounds: S1 normal heart sound present and S2 normal heart sound present GI Other: The patient has no lower abdominal tenderness. She has tenderness across the upper abdomen including the epigastrium, right upper quadrant, and left upper quadrant. Skin Other: Skin is dry and unremarkable Neuro Other: The patient is awake and alert with a normal mental status. Cranial nerves are grossly intact. She moves her extremities symmetrically. No focal deficits. Extrem Other: No calf swelling or tenderness. No asymmetry Course Course Course Narrative: RME; 48-year-old female presents to ED for for epigastric pain chest pain, nausea, and vomiting for couple of days. EKG labs x-ray ordered. Medications Administered Discontinued Medications Generic Name Dose Route Start Last Admin Trade Name Freq PRN Reason Stop Dose Admin Famotidine 20 mg 11/11/23 23:02 11/11/23 23:44 Famotidine/Pf 20 Mg/2 Ml Vial IVPUSH 11/11/23 23:03 20 mg ONCE ONE Administration Sodium Chloride 1,000 mls @ 999 mls/hr 11/11/23 23:00 11/12/23 00:42 Ns IV 11/12/23 00:00 Infused .Q1H1M ANDREW Infusion Iohexol 100 ml 11/12/23 00:25 11/12/23 00:26 Iohexol 350 Mg/Ml 100 Ml Infus..Btl IV 11/12/23 00:26 100 ml ONCE ONE Administration Morphine Sulfate 4 mg 11/11/23 23:00 11/11/23 23:41 Morphine Sulfate 4 Mg/Ml Cartridge IVPUSH 11/11/23 23:01 4 mg ONCE ONE Administration Protocol Prochlorperazine Edisylate 10 mg 11/11/23 23:00 11/11/23 23:40 Prochlorperazine Edisylate 10 Mg/2 Ml Vial IVPUSH 11/11/23 23:01 10 mg ONCE ONE Administration Sucralfate 1 gm 11/12/23 01:00 11/12/23 01:13 Sucralfate Oral Suspension 1 Gm/10 Ml Oral.Susp PO 11/12/23 01:01 1 gm ONCE ONE Administration Medical Decision Making Medical Decision Making [facility] Narrative: The patient is a 48-year-old female who presents with upper abdominal pain and vomiting starting yesterday. On exam she is quite tender in her epigastrium and in both upper quadrants. The patient has a history of coronary disease. Her EKG is unremarkable and she says that these symptoms are not symptoms that she had when she had her MA. The patient had labs and a CT scan of the abdomen and pelvis which were unremarkable. She does not seem to have any acute surgical process. I do not think her symptoms likely represent an acute coronary syndrome. Her symptoms are unlike her MA she says and she has an unremarkable EKG and troponin. The patient was initially given morphine, famotidine, and prochlorperazine. After the negative CT scan she was also given oral sucralfate. I suspect her pain syndrome is likely gastritis. She felt considerably better and felt comfortable going home. She is on omeprazole. She will be prescribed sucralfate as well. Lab Data 11/11/23 17:52 11/11/23 17:52 Labs: Lab Results 11/11/23 11/11/23 Range/Units 17:51 17:52 WBC 10.4 (4.8-10.8) X10*3/uL RBC 4.27 (4.20-5.50) X10*6/uL Hgb 13.0 (12.0-16.0) g/dl Hct 39.1 (37.0-47.0) % MCV 91.6 (80.0-98.0) fL MCH 30.4 (27.0-33.0) pg MCHC 33.2 (31.0-35.0) g/dl RDW 15.1 (11.0-16.0) % Plt Count 330 (160-400) X10*3/uL MPV 10.3 (9.4-12.3) fL Immature Gran % (Auto) 0.4 (0.0-0.4) % Neut % (Auto) 53.5 (45-73) % Lymph % (Auto) 35.3 (20-40) % [place] % (Auto) 8.8 (2-11) % Eos % (Auto) 1.5 (0-4) % Baso % (Auto) 0.5 (0-2) % Lymph # (Auto) 3.7 (1.2-4.9) X10*3/uL [place] # (Auto) 0.9 (0.1-1.2) X10*3/uL Eos # (Auto) 0.2 (0.0-0.4) X10*3/uL Baso # (Auto) 0.1 (0.0-0.2) X10*3/uL Abs Immat Gran (auto) 0.04 H (0.00-0.03) X10*3/uL Absolute Neuts (auto) 5.6 (2.0-8.3) x10*3/uL Absolute Nucleated RBC 0.000 (0.0-0.012) X10*3/uL Nucleated RBC % (auto) 0.0 (0.0-0.2) /100WBC PT 12.4 (11.1-13.3) SEC INR 1.0 (0.9-1.1) APTT 37.3 H (26.0-36.8) SEC Sodium 140 (135-145) mmol/L Potassium 4.2 (3.3-5.1) mmol/L Chloride 107 (96-108) mmol/L Carbon Dioxide 24 (22-29) mmol/L Anion Gap 13 (12-20) BUN 12 (9-16) mg/dL Creatinine 0.88 (0.5-1.4) mg/dL Estim Creat Clear Calc 129.5 Estimated GFR > 60 Random Glucose 100 (60-115) mg/dL Calcium 9.4 (8.4-10.2) mg/dL Total Bilirubin 0.8 (0.0-1.0) mg/dL AST 16 (5-31) U/L ALT 17 (0-31) U/L Alkaline Phosphatase 91 (39-117) U/L Troponin I High Sens < 2.7 (<3.5-17.0) ng/L C-Reactive Protein 0.34 (< or = 0.50) mg/dL Total Protein 7.6 (6.5-8.0) g/dL Albumin 3.8 (3.5-5.0) g/dL Lipase 10 (8-78) U/L Beta HCG, Quant < 2 mIU/mL Independent Interpretation I performed an independent interpretation of an: EKG Interpretation: 1729 shows normal sinus rhythm at 68 beats per minute. It is a normal EKG Discharge Plan Discharge Clinical Impression: Acute epigastric pain, Vomiting Patient Disposition: Home, Self-Care Instructions: Gastritis (ED) Additional Instructions: I believe that the stomach pains you have been having on this occasion are likely related to an exacerbation of gastritis. Please make sure you omeprazole daily. In addition to the omeprazole I have prescribed a medication called sucralfate that can also help with gastritis pain. You may take this 2 times a day on an as-needed basis. I have also sent a prescription for a medication called ondansetron (Zofran). You may use this medication for nausea. Please resume all of your other regular medications. Follow up with your regular doctor to discuss this episode further. Return to the emergency room if worse. Prescriptions: New sucralfate 1 gram tablet 1 g PO BID PRN (Reason: abdominal pain) Qty: 60 0RF ondansetron 4 mg tablet,disintegrating 4 mg PO Q6H PRN (Reason: nausea and vomiting) Qty: 7 0RF No Action ezetimibe 10 mg tablet 10 mg PO DAILY Qty: 30 6RF allopurinol 100 mg tablet 100 mg PO DAILY 90 Days Qty: 90 1RF albuterol sulfate [Ventolin HFA] 90 mcg/actuation HFA aerosol inhaler 2 puff PO Q4-6H PRN (Reason: Wheezing) fluticasone propionate 50 mcg/actuation spray,suspension 2 spray intranasal DAILY atorvastatin [Lipitor] 80 mg Tablet 80 mg PO BEDTIME omeprazole 20 mg capsule,delayed release(DR/EC) 20 mg PO DAILY lisinopril 30 mg tablet 30 mg PO DAILY metformin 500 mg tablet extended release 24 hr 500 mg PO QPM capsaicin 0.025 % cream 1 appl topical BID PRN (Reason: mild pain) metronidazole 0.75 % gel 1 appl topical DAILY PRN (Reason: Rash) ondansetron 4 mg tablet,disintegrating 4 mg PO Q6-8H PRN (Reason: nausea and vomiting) Qty: 7 0RF baclofen 10 mg tablet 10 mg PO TID PRN (Reason: muscle spasm) topiramate 50 mg tablet 50 mg PO BID (DME) blood pressure test kit-large Kit See Rx Instructions .ROUTE DIRECTED Qty: 1 Rx Instructions: As directed tramadol 50 mg tablet 50 mg PO Q8H PRN (Reason: severe pain) cholecalciferol (vitamin D3) 50 mcg (2,000 unit) capsule 50 mcg PO DAILY mirtazapine 7.5 mg tablet 7.5 mg PO BEDTIME metoprolol succinate 50 mg tablet extended release 24 hr 50 mg PO DAILY aspirin 81 mg tablet,delayed release (DR/EC) 81 mg PO DAILY Brilinta 60 mg tablet 60 mg PO BID Qty: 60 11RF omeprazole 20 mg capsule,delayed release(DR/EC) 40 mg PO DAILY 30 Days Qty: 60 5RF isosorbide mononitrate 30 mg tablet extended release 24 hr 30 mg PO DAILY albuterol sulfate 2.5 mg /3 mL (0.083 %) solution for nebulization 2.5 mg inhalation Q4-6H PRN (Reason: Wheezing) pyridoxine (vitamin B6) 100 mg tablet 100 mg PO DAILY 90 Days Qty: 90 3RF Referrals: Carmen Bertrand DO [Primary Care Provider] - (Gastritis) Interventions: ED Discharge Assessment Last Done: 11/12/23 02:04 Discharge Date/Time: 11/12/23 02:05
[2023-11-11 18:28] LABS: MANUAL DIFF FLAG NO
[2023-11-11 18:38] LABS: Basophils Absolute Auto 0.1 X10*3/uL (0.0-0.2); Basophils Percent Auto 0.5 % (0-2); Eosinophils Absolute Auto 0.2 X10*3/uL (0.0-0.4); Eosinophils Percent Auto 1.5 % (0-4); Hematocrit 39.1 % (37.0-47.0); Imm Gran Abs Auto 0.04 X10*3/uL (0.00-0.03); Imm Gran Pct Auto 0.4 % (0.0-0.4); Lymphocytes Absolute Auto 3.7 X10*3/uL (1.2-4.9); Lymphocytes Percent Auto 35.3 % (20-40); Mean Corpuscular HGB Conc 33.2 g/dl (31.0-35.0); Mean Corpuscular Hemoglobin 30.4 pg (27.0-33.0); Mean Corpuscular Volume 91.6 fL (80.0-98.0); Mean Platelet Volume 10.3 fL (9.4-12.3); Monocytes Absolute Auto 0.9 X10*3/uL (0.1-1.2); Monocytes Percent Auto 8.8 % (2-11); Neutrophils Absolute Auto 5.6 x10*3/uL (2.0-8.3); Neutrophils Percent Auto 53.5 % (45-73); Platelet Count 330 X10*3/uL (160-400); Prothrombin Time 12.4 SEC (11.1-13.3); Red Blood Count 4.27 X10*6/uL (4.20-5.50); Red Cell Distribution Width 15.1 % (11.0-16.0); White Blood Count 10.4 X10*3/uL (4.8-10.8)
[2023-11-11 18:41] LABS: Partial Thromboplastin Time 37.3 SEC (26.0-36.8)
[2023-11-11 18:57] LABS: Alanine Aminotransferase 17 U/L (0-31); Albumin Level 3.8 g/dL (3.5-5.0); Alkaline Phosphatase 91 U/L (39-117); Anion Gap 13 (12-20); Aspartate Amino Transferase 16 U/L (5-31); Bilirubin Total 0.8 mg/dL (0.0-1.0); Blood Urea Nitrogen 12 mg/dL (9-16); Calcium 9.4 mg/dL (8.4-10.2); Carbon Dioxide 24 mmol/L (22-29); Chloride 107 mmol/L (96-108); Creatinine Clr Calc Pharmacy 129.5; Estimated Glomerular Filt Rate > 60; Glucose Random 100 mg/dL (60-115); Lipase 10 U/L (8-78); Potassium 4.2 mmol/L (3.3-5.1); Sodium 140 mmol/L (135-145); Total Protein 7.6 g/dL (6.5-8.0)
[2023-11-11 19:02] LABS: HCG Quantitative < 2 mIU/mL
[2023-11-11 19:02] LABS: Troponin-I High Sensitivity < 2.7 ng/L (<3.5-17.0)
[2023-11-11 21:56] VITALS: BP 125/62; PULSE 55; RESP 19; TEMP 36.7; O2SAT 99
[2023-11-11 23:21] LABS: C Reactive Protein 0.34 mg/dL (< or = 0.50)
[2023-11-11] MEDS: Prochlorperazine Edisylate 10 MG/2 ML VIAL IVPUSH (23:40)
[2023-11-11] MEDS: 0.9 % Sodium Chloride 1,000 ML 999 ML IV (23:41)
[2023-11-11] MEDS: Morphine Sulfate 4 MG/ML CARTRIDGE IVPUSH (23:41)
[2023-11-11] MEDS: Famotidine/PF 20 MG/2 ML VIAL IVPUSH (23:44)
[2023-11-12] MEDS: iohexoL 350 MG/ML 100 ML INFUS..BTL IV (00:26)
[2023-11-12] MEDS: Sucralfate Oral Suspension 1 GM/10 ML ORAL.SUSP PO (01:13)
[2023-11-12 02:04] VITALS: BP 127/63; PULSE 52; RESP 16; TEMP 36.5; O2SAT 98
== END 2023-11-12 02:05 | disposition home or self-care (01) ==
PROVIDERS: Physician Assistant; Emergency Provider Emergency Medicine; PCP Family Medicine
DX: R10.13 Epigastric pain (principal); R07.89 Other chest pain; R11.2 Nausea with vomiting, unspecified; Z79.899 Other long term (current) drug therapy
CPT/HCPCS: 36415; 71045; 74177; 80053; 83690; 84484; 84702; 85025; 85610; 85730; 86140; 93005; 96361; 96374; 96375; 99284; J0737; J2270; Q9967

== ENCOUNTER → 2023-11-11 17:29 | Outpatient (BNV) | payer OTHER, SELFPAY ==
[2022-10-22 13:00] VITALS: BP 128/72; BP 148/88; BMI 63.7
[2023-01-30 14:13] VITALS: BP 140/60
== END ==
PROVIDERS: Emergency Provider Emergency Medicine; PCP Family Medicine; Visit Provider Internal Medicine Cardiovascular Disease
DX: R07.9 Chest pain, unspecified (principal)
CPT/HCPCS: 93010

== ENCOUNTER 2023-11-13 | Outpatient (REF) | payer OTHER, SELFPAY ==
[2022-10-22 13:00] VITALS: BP 128/72; BP 148/88; BMI 63.7
[2023-01-30 14:13] VITALS: BP 140/60
== END 2023-11-13 00:01 | disposition home or self-care (01) ==
LOC: CF
PROVIDERS: PCP Family Medicine; Visit Provider Internal Medicine Gastroenterology
DX: R11.2 Nausea with vomiting, unspecified (principal); K31.84 Gastroparesis; R10.9 Unspecified abdominal pain; Z79.01 Long term (current) use of anticoagulants
CPT/HCPCS: 99212

== ENCOUNTER 2023-11-13 13:51 | Outpatient (AMB) | payer OTHER, SELFPAY ==
[2022-10-22 13:00] VITALS: BP 128/72; BP 148/88; BMI 63.7
[2023-01-30 14:13] VITALS: BP 140/60
--- NOTE | 2023-11-13 13:54 | A.OFFVIS_ITS ---
Intake Vital Signs 11/13/23 13:57 Height 5 ft 8 in Weight 352 lb 11.834 oz BMI 53.6 BP 143/66 H Blood Pressure Location Lt brachial Position Sitting Pulse 66 Intake Visit Reasons: ED follow up Intake Note: Blaire presents in the office as a ED follow up. CC: She states that she has gastritis and was seen in the ED. she is still in pain even after taking her medications. Voice Coach Required: No Allergies penicillin G [PENICILLIN G] Allergy (Severe, Verified 11/13/23 13:54) DIFFICULTY BREATHING semaglutide [From Ozempic] Adverse Reaction (Severe, Verified 11/13/23 13:54) Stomach Upset Medication List - Last Reconciled 11/13/23 by Anita Kc PA-C albuterol sulfate 90 mcg/actuation (Ventolin HFA) 2 puffs PO Q4-6H PRN albuterol sulfate 2.5 mg inhalation Q4-6H PRN allopurinol 100 mg PO DAILY 90 days aspirin 1 tab PO DAILY atorvastatin (Lipitor) 80 mg PO BEDTIME baclofen 10 mg PO TID PRN blood pressure test kit-large As directed capsaicin 0.025% 1 appl topical BID PRN cholecalciferol (vitamin D3) 50 mcg PO DAILY ezetimibe 10 mg PO DAILY fluticasone propionate 50 mcg/actuation 2 sprays intranasal DAILY fluticasone propionate 110 mcg/actuation inhalation isosorbide mononitrate ER 30 mg PO DAILY lisinopril 30 mg PO DAILY metformin ER 500 mg PO QPM metoprolol succinate ER 50 mg PO DAILY metronidazole 0.75% 1 appl topical DAILY PRN mirtazapine 7.5 mg PO BEDTIME omeprazole 40 mg (2 x 20 mg) PO DAILY 30 days ondansetron 4 mg PO Q6H PRN pyridoxine (vitamin B6) 100 mg PO DAILY 90 days sucralfate 1 g PO BID PRN ticagrelor (Brilinta) 60 mg PO BID topiramate 50 mg PO BID tramadol 50 mg PO Q8H PRN HPI HPI Comments History of Present Illness Details 48-year-old female being seen today afte r evaluated in the ED 2 days ago. Abdominal pain, nausea, vomiting Unable to associate with anything specific- She been taking omeprazole in which was increased to 40 mg as well as additionally given sucralfate. She is here today with her daughter/TOWN ADMINISTRATOR who says they have not yet picked up the medication. She is a smoker, coffee, chocolate- EKG- normal Saw Dr. Hutchinson- few wks ago- f/u 1 year Reviewed- CT and labs-normal enzymes- Bowels have been normal Related Data Home Medications Medication Instructions Recorded Confirmed baclofen 10 mg tab let 10 mg PO TID PRN m uscle spasm 11/03/20 10/29/23 albuterol sulfate 90 mcg/actuation 2 puff PO Q4-6H IA N Wheezing 12/01/20 10/29/23 aerosol inhaler (V entolin HFA) atorvastatin 80 mg tablet (Lipitor) 80 mg PO BEDTIME 12/01/20 10/29/23 fluticasone propio paco 50 2 spray intranasal DAILY 12/01/20 10/29/23 mcg/actuation nasa l spray,suspension blood pressure renetta t kit-large #1 ea 12/19/20 10/29/23 topiramate 50 mg t ablet 50 mg PO BID 12/19/20 10/29/23 cholecalciferol (v itamin D3) 50 50 mcg PO DAILY 03/13/22 10/29/23 mcg (2,000 unit) c apsule mirtazapine 7.5 mg tablet 7.5 mg PO BEDTIME 06/17/22 10/29/23 aspirin 81 mg tabl et,delayed 81 mg PO DAILY 07/01/22 10/29/23 release lisinopril 30 mg t ablet 30 mg PO DAILY 07/01/22 10/29/23 metformin 500 mg t ablet,extended 500 mg PO QPM 07/01/22 10/29/23 release 24 hr metoprolol succina te 50 mg 50 mg PO DAILY 07/01/22 10/29/23 tablet,extended re lease 24 hr omeprazole 20 mg c apsule,delayed 20 mg PO DAILY 07/01/22 10/29/23 release tramadol 50 mg tab let 50 mg PO Q8H PRN s evere pain 10/24/22 10/29/23 capsaicin 0.025 % topical cream 1 appl topical BID PRN mild pain 10/25/22 10/29/23 metronidazole 0.75 % topical gel 1 appl topical DERICK LY PRN Rash 10/25/22 10/29/23 albuterol sulfate 2.5 mg/3 mL 2.5 mg inhalation Q4-6H PRN 11/15/22 10/29/23 (0.083 %) solution for nebulization Wheezing isosorbide mononit rate 30 mg 30 mg PO DAILY 11/15/22 10/29/23 tablet,extended re lease 24 hr Previous Rx's Medication Instructions Recorded ondansetron 4 mg d isintegrating 4 mg PO Q6-8H PRN nausea and 02/13/23 tablet vomiting #7 tabs pyridoxine (vitami n B6) 100 mg 100 mg PO DAILY 90 days #90 tabs 04/14/23 tablet ezetimibe 10 mg ta blet 10 mg PO DAILY #30 tabs 04/22/23 allopurinol 100 mg tablet 100 mg PO DAILY 90 days #90 tabs 07/01/23 ticagrelor 60 mg t ablet (Brilinta) 60 mg PO BID #60 t abs 10/21/23 omeprazole 20 mg c apsule,delayed 40 mg (2 x 20 mg) PO DAILY 30 days 10/29/23 release #60 caps ondansetron 4 mg d isintegrating 4 mg PO Q6H PRN na usea and 11/12/23 tablet vomiting #7 tabs sucralfate 1 gram tablet 1 g PO BID PRN abd ominal pain #60 11/12/23 tabs Allergies Allergy/AdvReac Type Severity Reaction Status Date / Time penicillin G PENIC ILLIN G Allergy Severe DIFFICULTY Verified 10/29/23 10:03 BREATHING semaglutide From O zempic AdvReac Severe Stomach Verified 10/29/23 10:03 Upset Review of Systems Review of Systems: Yes all other syst ems are reviewed a nd are negative Vital Signs: Vital Signs - 24 hr 11/10/2416:41 11/10/2420:56 11/11/2401:04 Temperature 98 F 98.0 F 97.7 F Pulse Rate 66 55 52 Respiratory Rate 20 19 16 Blood Pressure 133/67 125/62 127/63 Pulse Oximetry 98 99 98 Oxygen Delivery Me thod Room Air Room Air Room Air BMI result Body Mass Index 54.9 Medications Administered Discontinued Medic ations Generic Name Dose Route Start Last Admin Trade Name Freq PRN Reason Stop Dose Admin Famotidine 20 mg 11/11/23 23:02 11/11/23 23:44 Famotidine/Pf 20 Mg/2 Ml Vial IVPUSH 11/11/23 23:03 20 mg ONCE ONE Administration Sodium Chloride 1,000 mls @ 999 m ls/hr 11/11/23 23:00 11/12/23 00:42 Ns IV 11/12/23 00:00 Infused .Q1H1M ANDREW Infusion Iohexol 100 ml 11/12/23 00:25 11/12/23 00:26 Iohexol 350 Mg/M l 100 Ml Infus..Bt l IV 11/12/23 00:26 100 ml ONCE ONE Administration Morphine Sulfate 4 mg 11/11/23 23:00 11/11/23 23:41 Morphine Sulfate 4 Mg/Ml Cartridge IVPUSH 11/11/23 23:01 4 mg ONCE ONE Administration Protocol Prochlorperazine E disylate 10 mg 11/11/23 23:00 11/11/23 23:40 Prochlorperazine Edisylate 10 Mg/2 Ml Vial IVPUSH 11/11/23 23:01 10 mg ONCE ONE Administration Sucralfate 1 gm 11/12/23 01:00 11/12/23 01:13 Sucralfate Oral Suspension 1 Gm/10 Ml Oral.Susp PO 11/12/23 01:01 1 gm ONCE ONE Administration REVIEWED 11/11/23Medical Decision Making-reviewed with patient and daughter Medical Decision Making MDM Narrative: The patient is a 48-year-old female who presents with upper abdominal pain and vomiting starting yesterday. On exam she is quite tender in her epigastrium and in both upper quadrants. The patient has a history of coronary disease. Her EKG is unremarkable and she says that these symptoms are not symptoms that she had when she had her NC. The patient had labs and a CT scan of the abdomen and pelvis which were unremarkable. She does not seem to have any acute surgical process. I do not think her symptoms likely represent an acute coronary syndrome. Her symptoms are unlike her NC she says and she has an unremarkable EKG and troponin. The patient was initially given morphine, famotidine, and prochlorperazine. After the negative CT scan she was also given oral sucralfate. I suspect her pain syndrome is likely gastritis. She felt considerably better and felt co mfortable going home. She is on omeprazole. She will be prescribed sucralfate as well. [facility] Medical History (Updated 11/19/23 @ 14:07 by Anita Kc PA-C) Morbid obesity Hidradenitis suppurativa CAD (coronary artery disease) Subsequent non-ST elevation myocardial infarction (NSTEMI) within 4 weeks of initial infarction Non-ST elevation NC (NSTEMI) YAMILETH on CPAP Hyperlipidemia PTSD (post-traumatic stress disorder) Fatty liver Smoker Depression Obesity Leukocytosis Frequent UTI Asthma Mass of throat Chronic pain Kidney stone Migraine HTN (hypertension) Surgical History Stented coronary artery History of heart artery stent History of lumpectomy of left breast (10/22/21) History of lithotripsy History of endometrial ablation Hx of colonoscopy History of breast lump/mass excision History of tonsillectomy H/O: hysterectomy Family History Father Hypertension Mother Hypertension Osteoporosis Hx of bilateral cataract extraction Paternal Grandmother Diabetes Sister Asthma Maternal Uncle Throat cancer Maternal Aunt Ovarian cancer Breast cancer Social History Household Members: Children Housing: Apartment Are you a primary technical healthcare consultant to a significant other at home: No Do you presently have visiting nurse or other home services: Yes (daughter is her nail assembly machine operator) Alcohol intake: never Comment: pt refusing alarms Patient Tobacco Use Status: Current everyday Tobacco user Tobacco use type: Cigarette Cigarette Packs Per Day: 1 Years Smoked: 35 +/- Second Hand Smoke Exposure: No Advance Directives Date on File: 10/28/22 service: No Current occupational status: unemployed Review of Systems Const All systems reviewed & are unremarkable except as noted in HPI and below Card Denies chest pain GI Reports abdominal pain, Reports heartburn, Reports nausea and Reports vomiting Musc Reports abnormal gait, Reports back pain and Reports myalgias Neuro Reports abnormal gait Psych Reports anxiety, Reports depression, Denies homicidal ideation and Denies suicidal ideation Physical Exam Vital Signs: Last Vital Signs Pulse 66 11/13/23 13:57 BP 143/66 H 11/13/23 13:57 BMI result Body Mass Index 53.6 Const General: no acute distress and anxious Nutritional Appearance: obese Orientation/consciousness: patient oriented x3 Limitations: language barrier Resp Effort & Inspection: normal respiratory effort and able to speak in complete sentences Auscultation: clear to auscultation bilaterally (Distant breath sounds), no rales, no rhonchi and no wheezes Cardio Rate: regular rate Rhythm: regular rhythm GI Other: Difficult to assess given body habitus Inspection: Yes Abdominal panniculus present and Yes obesity Palpation (GI): Soft to palpation, Tenderness to palpation present (GI) (Diffuse ) and no guarding Auscultation: normal bowel sounds Neuro General: patient oriented x3 Psych Speech and movement: Clear speech present Affect: Animated affect present Attitude: Guarded attititude/behavior present Results Reviewed Results Reviewed: CT/CT abdomen pelvis w IV con IMPRESSION: 1. No acute findings identified in the abdomen/pelvis. 2. Multiple bilateral renal calculi without hydronephrosis. 3. Hepatomegaly. Assessment & Plan Assessment & Plan (1) Chronic anticoagulation: Comment: Ceasar- Code(s): Z79.01 - residential (current) use of anticoagulants Plan: Typically discontinue 7 days prior to procedure must be authorized (2) Nausea and vomiting: Comment: she has no teeth-she is difficult to assess given anxiety daughter is present speaks for her- Code(s): R11.2 - Nausea with vomiting, unspecified Plan: Diet as tolerated Keep well hydrated (3) Gastroparesis: Code(s): K31.84 - Gastroparesis Plan: r/o gastroparesis (4) Abdominal pain: Comment: Diffuse abdominal p/e-mild tenderness unable to fully assess given body habitus Obesity may play a role, musculoskeletal Code(s): R10.9 - Unspecified abdominal pain Plan: Encouraged to take prescribed medications Plan EGD/ colonoscopy Anesthesia consult- s/p NC, obesity Bariatric bed- omit metformin day before and no DM meds morning of procedures Brilinta- typically D/C x 7 days- if authorized- DR. Hutchinson Orders: Orders EGD/[place] Combo - GI Use Only 11/13/23 Medications: New bisacodyl (Dulcolax (bisacodyl)) Day before procedure @ 12 noon Take 4 tablets by mouth followed by large glass of water 20 mg (4 x 5 mg) PO ONCE 1 day PRN 4 tabs 0RF colonoscopy prep Z12.11 - Encounter for screening for malignant neoplasm of colon polyethylene glycol 3350 (Miralax) Take as directed by mouth the day before your procedure. 238 grams PO ONCE 1 day PRN 238 grams 0RF laxative effect Discontinued ondansetron Discontinued Reason: Duplicate 4 mg PO Q6-8H PRN 7 tabs 0RF nausea and vomiting Patient Instructions: EGD/ colonoscopy Anesthesia consult- s/p NC, obesity Bariatric bed- omit metformin day before and no DM meds morning of procedures Brilinta- typically D/C x 7 days- if authorized- DR. Hutchinson Encouraged to call questions or concerns Daughter is present-interpreting as well as giving hx Daughter agrees to pickle water pump operator medications that were prescribed through the ED See back outpatient prior to procedures - Coding Level of Care Code Est Pt Level 4 (81379) Diagnoses Chronic anticoagulation Z79.01 Nausea and vomiting R11.2 Gastroparesis K31.84 Abdominal pain R10.9 Time Spent (min) 35
[2023-11-13 13:57] VITALS: BP 143/66; PULSE 66; BMI 53.6
== END 2023-11-13 14:54 | disposition home or self-care (01) ==
PROVIDERS: PCP Family Medicine; Visit Provider Physician Assistant
DX: Z79.01 Long term (current) use of anticoagulants (principal); R11.2 Nausea with vomiting, unspecified; K31.84 Gastroparesis; R10.9 Unspecified abdominal pain
CPT/HCPCS: 99214

== ENCOUNTER 2023-11-27 07:59 | Outpatient (REF) | payer OTHER, SELFPAY ==
[2022-10-22 13:00] VITALS: BP 128/72; BP 148/88; BMI 63.7
[2023-01-30 14:13] VITALS: BP 140/60
[2023-11-29 13:42] LABS: H Pylori Breath Test Positive (Negative)
== END 2023-11-27 08:00 | disposition home or self-care (01) ==
LOC: HO.HHCLNP 07:59
PROVIDERS: Visit Provider Family Medicine
DX: R10.13 Epigastric pain (principal); Z11.0 Encounter for screening for intestinal infectious diseases
CPT/HCPCS: 83013

== ENCOUNTER → 2023-12-18 09:32 | Outpatient (REF) | payer OTHER, SELFPAY ==
[2022-10-22 13:00] VITALS: BP 128/72; BP 148/88; BMI 63.7
[2023-01-30 14:13] VITALS: BP 140/60
--- NOTE | ~2023-12-18 | NM_ITS ---
Lexiscan Myocardial perfusion study Indication: Chest pain, assess for coronary disease and ischemia Technique: The patient was brought in for a Lexiscan perfusion study on 12/18/2023 and was injected 0.4 mg of Lexiscan intravenously. Within a minute of this injection 45 mCi of sestamibi was given intravenously. Images were obtained using the SPECT gamma camera interlaced with the gating device. Images were obtained in supine position. Resting perfusion study was performed on 12/19/2023. Patient was administered 45 mCi of sestamibi intravenously at rest. Images were then obtained in supine position. Images were processed with the software and compared side to side in short axis, horizontal long axis and vertical long axis views. Total DLP 195mGy-cm. Findings: Raw acquisition reviewed. The stress perfusion study showed mildly diminished tracer uptake in the mid anterior wall. There is improvement with CT attenuation correction suggestive of soft tissue attenuation artifact. The gated study shows normal LV systolic function with calculated LVEF of 64%. LV cavity is normal in size. The gated study shows normal wall thickening and contraction of segments. Resting study shows no significant perfusion abnormality. Gating at rest reveals normal wall motion with ejection fraction at 61%. The findings are consistent with mild reversible mid anterior defect. Could be from mild ischemia. Could also have components of soft tissue attenuation artifact. NM/NM cardiolite stress test Impression: 1. Myocardial perfusion imaging study shows mild reversible mid anterior wall defect, but improving with CT attenuation correction. Possibly mild ischemia, with some components of soft tissue attenuation artifact. 2. Gated LVEF is 64% during stress and 61% during rest. 3. Transient ischemic dilatation not present. EKG component of the test reported separately.
--- NOTE | 2023-12-18 09:36 | CA_ITS ---
Acquisition Time: 2023-12-18 09:31:55 Total Exercise Time: 00:04:07 Test Indications: Chest Pain Medications: SEE H Protocol: VICTOR MANUEL Max HR: 127 BPM 73% of Pred: 173 BPM Max BP: 174/090 mmHG Max Work Load: 5.9 METS Exercise stress test exercise 4 min 7 sec of Victor Manuel protocol achieving 71% MPHR, with moderate SOB, without chest discomfort, with isolated PVCs, ventricular bigeminy and trigeminy (asymptomiatic) , with hypertenive response resposne to exercise, with nondiagnoisitic EKGs at achieved workload. Test changed to pharmacological stress test once breathing returned to baseline. Pharmacological stress test with Lexiscan injection while sitting and kicking her legs, without anginal symptoms, without arrhythmias, with normotenisve response to injection, with nondiagnoistic EKGs. Aminophyllien 75mg IVP given to reverse Lexiscan. Nuclear images pending. Test reviewed with Dr. Noyola, Referred By: Mars Hutchinson Overread By: Lacey Olmedo
== END ==
LOC: HO.CARD 09:32
PROVIDERS: PCP Family Medicine; Visit Provider Internal Medicine Cardiovascular Disease
DX: R07.89 Other chest pain (principal)
CPT/HCPCS: 78452; 93017; A9500; J2785

== ENCOUNTER → 2023-12-18 09:36 | Outpatient (BNV) | payer OTHER, SELFPAY ==
[2022-10-22 13:00] VITALS: BP 128/72; BP 148/88; BMI 63.7
[2023-01-30 14:13] VITALS: BP 140/60
== END ==
PROVIDERS: PCP Family Medicine; Visit Provider Nurse Practitioner
DX: R07.9 Chest pain, unspecified (principal)
CPT/HCPCS: 78452; 93016; 93018

== ENCOUNTER 2024-01-27 19:46 | Outpatient (REF) | payer OTHER, SELFPAY ==
[2022-10-22 13:00] VITALS: BP 128/72; BP 148/88; BMI 63.7
[2023-01-30 14:13] VITALS: BP 140/60
[2024-01-29 15:08] LABS: H Pylori Breath Test Negative (Negative)
== END 2024-01-27 19:47 | disposition home or self-care (01) ==
LOC: HO.HHCLNP 19:46
PROVIDERS: Visit Provider Family Medicine
DX: A04.8 Other specified bacterial intestinal infections (principal)
CPT/HCPCS: 83013

== ENCOUNTER 2024-02-06 22:19 | Emergency (ER) | payer OTHER, SELFPAY ==
[2022-10-22 13:00] VITALS: BP 128/72; BP 148/88; BMI 63.7
[2023-01-30 14:13] VITALS: BP 140/60
--- NOTE | ~2024-02-06 | CT_ITS ---
EXAMINATION: CT ABDOMEN AND PELVIS WITHOUT CONTRAST CLINICAL INFORMATION: Right flank pain. COMPARISON: 11/12/2023 TECHNIQUE: Multidetector volumetric imaging was performed from the superior aspect of the liver through the pubic symphysis. Sagittal and coronal reformatted images were obtained on the technologist's workstation. This CT examination was performed using dose optimization techniques as appropriate, variously including the following: *Automated exposure control *Adjustment of mA and/or kV according to patient size (this includes techniques or standardized protocols for targeted exams where dose is matched to indication/reason for exam; i.e. extremities or head) *Use of iterative reconstruction technique DLP: 1302 mGy-cm FINDINGS: LUNG BASES: There is minimal scarring at the anterior lung bases. LIVER, GALLBLADDER, AND BILIARY TREE: The liver is normal in size, shape, and attenuation. No focal hepatic lesion or biliary ductal dilatation is present. The gallbladder is unremarkable with no evidence of radiopaque gallstones, gallbladder wall thickening, or obvious pericholecystic inflammatory changes. PANCREAS: Unremarkable. SPLEEN: Unremarkable. ADRENAL GLANDS: Unremarkable. KIDNEYS AND URETERS: The kidneys are normal in size, shape, and attenuation. There are numerous bilateral renal calculi measuring up to 4.5 mm lower pole left kidney. There is mild to moderate right hydronephrosis and proximal right hydroureter to the level of a 3.5 mm proximal right ureteric calculus. BLADDER: Unremarkable. GASTROINTESTINAL TRACT: The small and large bowel are unremarkable. The appendix is not seen ABDOMINAL WALL: No significant hernia is appreciated. LYMPH NODES: Normal. VASCULAR: Unremarkable. PELVIC VISCERA: Unremarkable. OSSEOUS STRUCTURES: Unremarkable. CT/CT abdomen pelvis wo IV con IMPRESSION: Mild to moderate right hydronephrosis and proximal right hydroureter to the level of a 3.5 mm proximal right ureteric calculus. Numerous bilateral renal calculi. Fleischner guidelines were followed.
[2024-02-06 22:26] VITALS: BP 155/85; PULSE 73; RESP 20; TEMP 36.1; O2SAT 98; BMI 52.5
[2024-02-06 22:46] LABS: Basophils Absolute Auto 0.1 X10*3/uL (0.0-0.2); Basophils Percent Auto 0.5 % (0-2); Eosinophils Absolute Auto 0.3 X10*3/uL (0.0-0.4); Eosinophils Percent Auto 2.7 % (0-4); Hematocrit 37.4 % (37.0-47.0); Imm Gran Abs Auto 0.05 X10*3/uL (0.00-0.03); Imm Gran Pct Auto 0.4 % (0.0-0.4); Lymphocytes Percent Auto 34.1 % (20-40); MANUAL DIFF FLAG NO; Mean Corpuscular HGB Conc 34.8 g/dl (31.0-35.0); Mean Corpuscular Hemoglobin 31.7 pg (27.0-33.0); Mean Corpuscular Volume 91.2 fL (80.0-98.0); Mean Platelet Volume 9.9 fL (9.4-12.3); Monocytes Percent Auto 8.7 % (2-11); Neutrophils Absolute Auto 6.3 x10*3/uL (2.0-8.3); Neutrophils Percent Auto 53.6 % (45-73); Platelet Count 325 X10*3/uL (160-400); Red Cell Distribution Width 14.5 % (11.0-16.0); White Blood Count 11.7 X10*3/uL (4.8-10.8)
[2024-02-06 22:47] LABS: Appearance Urine Clear; Color Urine Yellow; Glucose Urine UA Negative (Negative); Leukocyte Esterase Urine Trace (Negative); Nitrite Urine Negative (Negative); PH 6.5 (5.0-9.0); UMIC TRIGGER UACC YES; Urine Blood Large (3+) (Negative); Urine Ketones Trace mg/dL (Negative); Urine Protein Negative (Neg-Trace)
[2024-02-06 22:52] LABS: Bacteria Urine None Seen (None Seen); Hyaline Casts Urine 0-2 /LPF (0-2); RBC Urine >20 /HPF (0-2); Squamous Epithelial Cell Urine 0-2 /HPF (0-2); WBC Urine 0-5 /HPF (0-5)
[2024-02-06 22:59] LABS: Alanine Aminotransferase 18 U/L (0-31); Albumin Level 3.8 g/dL (3.5-5.0); Alkaline Phosphatase 98 U/L (39-117); Anion Gap 13 (12-20); Aspartate Amino Transferase 19 U/L (5-31); Bilirubin Total 0.4 mg/dL (0.0-1.0); Blood Urea Nitrogen 9 mg/dL (9-16); Calcium 9.8 mg/dL (8.4-10.2); Carbon Dioxide 21 mmol/L (22-29); Chloride 112 mmol/L (96-108); Creatinine Clr Calc Pharmacy 127.4; Estimated Glomerular Filt Rate > 60; Glucose Random 94 mg/dL (60-115); Potassium 3.9 mmol/L (3.3-5.1); Sodium 142 mmol/L (135-145); Total Protein 7.4 g/dL (6.5-8.0)
[2024-02-06 23:04] VITALS: BP 147/83; PULSE 68; RESP 20; TEMP 37.1; O2SAT 96
--- NOTE | 2024-02-06 23:11 | PC.NURSE ---
Pt ambulates with a steady gait. Pt ca&ox4, no signs of distress. Pt reports 9/10 abd pain onset x2 days ago has had similar sx in the past (kidney stones) Pt also reports n/v/d Plan of care ongoing.
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
[2024-02-07] MEDS: ondansetron HCL 4 MG/2 ML VIAL IVPUSH (00:12)
[2024-02-07] MEDS: Ketorolac Tromethamine 30 MG/ML VIAL IVPUSH (00:13)
[2024-02-07 00:14] VITALS: RESP 20
[2024-02-07] MEDS: Morphine Sulfate 4 MG/ML CARTRIDGE IVPUSH (00:14)
[2024-02-07] MEDS: 0.9 % Sodium Chloride 1,000 ML 999 ML IV (00:16)
--- NOTE | 2024-02-07 00:18 | PC.NURSE ---
IV line placed Pt medicated per oct. Pts allergies verified with pt. Call renee placed w/in pts reach. Pt requested and light dimmed, curtains closed. Plan of care ongoing.
[2024-02-07] MEDS: Tamsulosin HCL 0.4 MG CAPSULE PO (01:01)
[2024-02-07 01:02] VITALS: RESP 14
[2024-02-07 01:07] VITALS: BP 144/80; PULSE 70; RESP 14; TEMP 37; O2SAT 98
== END 2024-02-07 01:30 | disposition home or self-care (01) ==
PROVIDERS: Emergency Provider Internal Medicine; PCP Family Medicine
DX: N20.1 Calculus of ureter (principal); R31.9 Hematuria, unspecified; R10.2 Pelvic and perineal pain; F17.210 Nicotine dependence, cigarettes, uncomplicated; Z79.899 Other long term (current) drug therapy
CPT/HCPCS: 36415; 74176; 80053; 81001; 85025; 96374; 96375; 99284; 99285; J1885; J2270; J2405

== ENCOUNTER 2024-02-12 13:50 | Outpatient (AMB) | payer OTHER, SELFPAY ==
[2022-10-22 13:00] VITALS: BP 128/72; BP 148/88; BMI 63.7
[2023-01-30 14:13] VITALS: BP 140/60
--- NOTE | 2024-02-12 13:54 | A.OFFVIS_ITS ---
Vital Signs 02/12/24 13:55 Height 5 ft 8 in Weight 341 lb 11.464 oz BMI 52.0 BP 130/70 Blood Pressure Location Lt brachial Position Sitting Pulse 53 Pulse Source Monitor Intake Visit Reasons: follow-up having chest pain Corrosion Prevention Metal Sprayer Required: Yes Corrosion Prevention Metal Sprayer Name: DAUGHTER Allergies penicillin G [PENICILLIN G] Allergy (Severe, Verified 02/06/24 22:29) DIFFICULTY BREATHING semaglutide [From Ozempic] Adverse Reaction (Severe, Verified 02/06/24 22:29) Stomach Upset Medication List - Last Reconciled 02/12/24 by Martine Shirley, MANAGER MEDICA[employer]-C albuterol sulfate 90 mcg/actuation (Ventolin HFA) 2 puffs PO Q4-6H PRN albuterol sulfate 2.5 mg inhalation Q4-6H PRN allopurinol 100 mg PO DAILY 90 days aspirin 1 tab PO DAILY atorvastatin (Lipitor) 80 mg PO BEDTIME baclofen 10 mg PO TID PRN bisacodyl (Dulcolax (bisacodyl)) 20 mg (4 x 5 mg) PO ONCE PRN 1 day blood pressure test kit-large As directed capsaicin 0.025% 1 appl topical BID PRN cholecalciferol (vitamin D3) 50 mcg PO DAILY ezetimibe 10 mg PO DAILY fluticasone propionate 50 mcg/actuation 2 sprays intranasal DAILY fluticasone propionate 110 mcg/actuation inhalation isosorbide mononitrate ER 30 mg PO DAILY lisinopril 30 mg PO DAILY metformin ER 500 mg PO QPM metoprolol succinate ER 50 mg PO DAILY metronidazole 0.75% 1 appl topical DAILY PRN mirtazapine 7.5 mg PO BEDTIME omeprazole 40 mg (2 x 20 mg) PO DAILY 30 days ondansetron 4 mg PO Q6H PRN oxycodone 5 mg PO Q6H PRN polyethylene glycol 3350 (Miralax) 238 grams PO ONCE PRN 1 day pyridoxine (vitamin B6) 100 mg PO DAILY 90 days sucralfate 1 g PO BID PRN tamsulosin (Flomax) 0.4 mg PO BEDTIME ticagrelor (Brilinta) 60 mg PO BID topiramate 50 mg PO BID tramadol 50 mg PO Q8H PRN HPI HPI follow-up having chest pain: Details: Blaire is a 48-year-old female with past medical history morbid obesity, hypertension, hyperlipidemia, smoking, obstructive sleep apnea with CPAP use, NSTEMI, KAMARI to the proximal LAD, CAD who reported chest discomfort last visit and underwent a pharmacological nuclear stress test and now presents for follow- up. Today she reports that she does get periodic pressure in her left chest region. She was able to point directly to the spot where it occurs each time. She says it can occur randomly and at times with walking. She has not able to clearly say how long this symptom has been occurring. The episodes can last seconds to minutes. No concerning shortness of breath, PND, orthopnea or edema. No lightheadedness, presyncope, syncope, falls. Taking all meds as directed. No bleeding issues reported. Admits to being sedentary. Daughter present and assisting with Algerian translation at their request. Permit signed. [facility] Medical History Morbid obesity Hidradenitis suppurativa CAD (coronary artery disease) Subsequent non-ST elevation myocardial infarction (NSTEMI) within 4 weeks of initial infarction Non-ST elevation NV (NSTEMI) YAMILETH on CPAP Hyperlipidemia PTSD (post-traumatic stress disorder) Fatty liver Smoker Depression Obesity Leukocytosis Frequent UTI Asthma Mass of throat Chronic pain Kidney stone Migraine HTN (hypertension) Surgical History Stented coronary artery History of heart artery stent History of lumpectomy of left breast (10/22/21) History of lithotripsy History of endometrial ablation Hx of colonoscopy History of breast lump/mass excision History of tonsillectomy H/O: hysterectomy Family History Father Hypertension Mother Hypertension Osteoporosis Hx of bilateral cataract extraction Paternal Grandmother Diabetes Sister Asthma Maternal Uncle Throat cancer Maternal Aunt Ovarian cancer Breast cancer Social History Household Members: Children Housing: Apartment Are you a primary healthcare administration intern to a significant other at home: No Do you presently have visiting nurse or other home services: Yes (daughter is her windows application administrator) Alcohol intake: never Comment: pt refusing alarms Patient Tobacco Use Status: Current everyday Tobacco user Tobacco use type: Cigarette Cigarette Packs Per Day: 1 Years Smoked: 35 +/- Second Hand Smoke Exposure: No Advance Directives Date on File: 10/28/22 service: No Current occupational status: unemployed Review of Systems Const All systems reviewed & are unremarkable except as noted in HPI and below Denies weakness ENT Denies dizziness Card Reports chest pain, Reports chest pain at rest, Denies chest pain with activity, Denies syncope, Denies rapid heart rate, Denies pedal edema, Denies edema, Denies leg edema, Denies lightheadedness, Denies palpitations, Denies dyspnea, Denies dyspnea on exertion and Denies orthopnea Resp Denies cough, Denies dyspnea and Denies dyspnea on exertion GI Denies hematochezia and Denies change in stool character Musc Denies abnormal gait, Denies muscle cramps, Denies muscle weakness, Denies numbness, Denies radiating pain into limb and Denies tingling Neuro Denies abnormal gait, Denies dizziness, Denies syncope, Denies numbness, Denies tingling and Denies weakness Endo Denies palpitations Physical Exam Vital Signs: Last Vital Signs Pulse 53 02/12/24 13:55 BP 130/70 02/12/24 13:55 BMI result Body Mass Index 52.0 Const Other: morbidly obese General: cooperative, comfortable and no acute distress Orientation/consciousness: patient oriented x3 Neck Neck: Yes normal visual inspection and Yes no JVD Resp Effort & Inspection: normal respiratory effort Auscultation: clear to auscultation bilaterally, no crackles, no rales, no rhonchi and no wheezes Cardio Jugular venous distension: no JVD Rate: regular rate Rhythm: regular rhythm Heart sounds: S1 normal heart sound present, S2 normal heart sound present, no murmurs and no rubs Neuro General: patient oriented x3 Extrem General: Yes normal to inspection and No no pedal edema Psych Appearance: grossly normal Mental Status: mental status grossly normal Speech and movement: Normal speech and movement present Office Procedures EKG Details: Today, read by me, sinus bradycardia, no acute ST or T-wave abnormality, rate 53, QTC 403 milliseconds [id number], Complete Assessment & Plan Assessment & Plan (1) Chest discomfort: Code(s): R07.89 - Other chest pain Category: Medical Plan: Reports of chest pressure as described above. Some typical and atypical features. Multiple cardiac risk factors including hypertension, hyperlipidemia, diabetes, smoking, morbid obesity, CAD. She did have prior NSTEMI with KAMARI to the proximal LAD. A cardiac catheterization done 10/2022 showed mild plaque proximal to the LAD stent, patent LAD stent, no significant disease elsewhere. Last echocardiogram done 10/25/2022 showing EF 68%, moderate increase in the LV wall thickness, no valve abnormalities. She did undergo a stress test on 12/18/2023 with exercise 4 minutes and developed moderate shortness of breath. Heart rate was suboptimal so she then underwent a pharmacological stress test showing mild reversible defect, possible mild ischemia versus soft tissue attenuation. Test results reviewed with her. Her symptoms are somewhat vague and I am unclear if this is truly angina or not. She is on metoprolol and isosorbide. Will increase isosorbide from 30 mg daily up to 60 mg daily. Continue aspirin and Brilinta as dual antiplatelet agents. Continue atorvastatin and Zetia with ideal LDL goal less than 70. Labs done on 10/21/2023 showing LDL 65. Spent time reviewing signs and symptoms of angina with her. Emergency care if needed for symptoms. Will plan cardiology follow-up in 4-6 weeks to re-evaluate symptoms. If she continues to report discomfort then repeat angiogram may be indicated. Spent time reviewing smoking cessation, med compliance. (2) CAD (coronary artery disease): Comment: Lad stent Code(s): I25.10 - Atherosclerotic heart disease of [place] coronary artery without angina pectoris Category: Medical Plan: As above (3) S/P cardiac catheterization: Comment: 10/28/2022, left main normal, lad mild plaque proximal to the stent, stent patent, left circumflex and RCA normal Code(s): Z98.890 - Other specified postprocedural states Category: Surgical Plan: As above (4) Abnormal nuclear stress test: Code(s): R94.39 - Abnormal result of other cardiovascular function study Category: Medical Plan: As above (5) Morbid obesity: Code(s): E66.01 - Morbid (severe) obesity due to excess calories Category: Medical Plan: Patient is down 20 lb in the last few months. Applauded on this (6) HTN (hypertension): Code(s): I10 - Essential (primary) hypertension Category: Medical Plan: Well controlled at this time. Increasing isosorbide. (7) Hyperlipidemia: Code(s): E78.5 - Hyperlipidemia, unspecified Category: Medical Plan: Well controlled as above. Plan Time spent on chart review, documentation, interview and assessment Medications: New isosorbide mononitrate ER Dose increased 60 mg PO DAILY 30 tabs 5RF Coding Level of Care Code Est Pt Level 4 (18035) Diagnoses Chest discomfort R07.89 CAD (coronary artery disease) I25.10 S/P cardiac catheterization Z98.890 Abnormal nuclear stress test R94.39 Morbid obesity E66.01 HTN (hypertension) I10 Hyperlipidemia E78.5 CPT Codes EKG - CPT: [id number], Complete ([id number])
[2024-02-12 13:55] VITALS: BP 130/70; PULSE 53; BMI 52.0
== END 2024-02-12 14:30 | disposition home or self-care (01) ==
PROVIDERS: PCP Family Medicine; Visit Provider Nurse Practitioner Family
DX: R07.89 Other chest pain (principal); I25.10 Atherosclerotic heart disease of native coronary artery without angina pectoris; Z98.890 Other specified postprocedural states; R94.39 Abnormal result of other cardiovascular function study; E66.01 Morbid (severe) obesity due to excess calories; I10 Essential (primary) hypertension; E78.5 Hyperlipidemia, unspecified
CPT/HCPCS: 93010; 99214

== ENCOUNTER → 2024-02-12 13:50 | Outpatient (BNVA) | payer OTHER, SELFPAY ==
[2022-10-22 13:00] VITALS: BP 128/72; BP 148/88; BMI 63.7
[2023-01-30 14:13] VITALS: BP 140/60
== END ==
PROVIDERS: PCP Family Medicine; Visit Provider Nurse Practitioner Family
DX: R07.89 Other chest pain (principal); I25.10 Atherosclerotic heart disease of native coronary artery without angina pectoris; I10 Essential (primary) hypertension; R94.39 Abnormal result of other cardiovascular function study; E66.01 Morbid (severe) obesity due to excess calories; E78.5 Hyperlipidemia, unspecified; Z98.890 Other specified postprocedural states; Z68.43 Body mass index [BMI] 50.0-59.9, adult
CPT/HCPCS: 93005; 99212

== ENCOUNTER 2024-02-12 20:10 | Day surgery (SDC) | payer OTHER, SELFPAY ==
[2022-10-22 13:00] VITALS: BP 128/72; BP 148/88; BMI 63.7
[2023-01-30 14:13] VITALS: BP 140/60
--- NOTE | ~2024-02-12 | CT_ITS ---
EXAMINATION: CT ABDOMEN AND PELVIS WITHOUT CONTRAST CLINICAL INFORMATION: Right flank pain. Renal calculi. COMPARISON: CT abdomen pelvis dated 02/06/2024. TECHNIQUE: Multidetector volumetric imaging was performed from the superior aspect of the liver through the pubic symphysis. Sagittal and coronal reformatted images were obtained on the technologist's workstation. This CT examination was performed using dose optimization techniques as appropriate, variously including the following: *Automated exposure control *Adjustment of mA and/or kV according to patient size (this includes techniques or standardized protocols for targeted exams where dose is matched to indication/reason for exam; i.e. extremities or head) *Use of iterative reconstruction technique DLP: 1294 mGy-cm FINDINGS: LUNG BASES: The visualized lung bases are unremarkable. LIVER, GALLBLADDER, AND BILIARY TREE: The liver is normal in size, shape, and attenuation. No focal hepatic lesion or biliary ductal dilatation is present. The gallbladder is unremarkable with no evidence of radiopaque gallstones, gallbladder wall thickening, or obvious pericholecystic inflammatory changes. PANCREAS: Unremarkable. SPLEEN: Unremarkable. ADRENAL GLANDS: Unremarkable. KIDNEYS AND URETERS: Right side: The right kidney is asymmetrically larger than the left and appears somewhat edematous. There is mild right-sided hydronephrosis. The proximal right ureter is dilated to the level of a calculus measuring 3.5 mm. The ureter distal to this calculus is decompressed. The right kidney contains multiple calculi ranging in size from punctate to 2.8 mm. These calculi are too small to get accurate Hounsfield unit values. Left side: There are multiple left renal calculi ranging in size from punctate to 4 mm in size. The 4 mm calculus has an average Hounsfield unit value of 405. There is no left-sided hydronephrosis. No left ureteral calculus. BLADDER: The urinary bladder is decompressed. No urinary bladder calculi are identified. GASTROINTESTINAL TRACT: The small and large bowel are normal in caliber. There is no pericolonic inflammatory stranding. The appendix is nonvisualized. ABDOMINAL WALL: No significant hernia is appreciated. LYMPH NODES: No lymphadenopathy. VASCULAR: No abdominal aortic aneurysm. Minimal atherosclerotic change. PELVIC VISCERA: The uterus is not visualized. There is no adnexal mass. No free fluid within the pelvis. OSSEOUS STRUCTURES: There are degenerative changes of lower lumbar spine. CT/CT abdomen pelvis wo IV con IMPRESSION: The right kidney is asymmetrically larger than the left and appears somewhat edematous. There is mild right-sided hydronephrosis. The proximal right ureter is dilated to the level of a calculus measuring 3.5 mm. The ureter distal to this calculus is decompressed. The right kidney contains multiple calculi ranging in size from punctate to 2.8 mm. These calculi are too small to get accurate Hounsfield unit values. Fleischner guidelines were followed. There are multiple left renal calculi ranging in size from punctate to 4 mm in size. The 4 mm calculus has an average Hounsfield unit value of 405. There is no left-sided hydronephrosis. No left ureteral calculus.
--- NOTE | ~2024-02-12 | FL_ITS ---
EXAMINATION: XR FLUOROSCOPY WITH IMAGES CLINICAL INFORMATION: Cysto, ureteroscopy, retro, laser, stent right. COMPARISON: None available. TECHNIQUE: Fluoroscopy Supervised By: Dr. Bryan. Fluoroscopy Time: 8.4 sec. Cumulative Dose: 5.57 mGy. DAP: None given. Images: No number of images given. FINDINGS: Intraoperative fluoroscopy and spot films were performed during a procedure in the OR. Single image shows the proximal end of a double-J pigtail catheter in the region of the lower pole of the right kidney. The pigtail is not fully formed. Please correlate with Dr. Bryan's report for complete details. FL/FL guidance in OR IMPRESSION: Intraoperative fluoroscopy and spot films were obtained. Please see Dr. Bryan's report for complete details.
[2024-02-12 20:17] VITALS: BP 141/84; PULSE 86; RESP 18; TEMP 36.6; O2SAT 97; BMI 51.8
--- NOTE | 2024-02-12 20:20 | ED.GENADULT ---
HPI - General Adult General Chief complaint: Abdominal Pain Stated complaint: right flank pain kidney stone Time Seen by Provider: 02/13/24 03:19 Source: patient Mode of arrival: ambulatory Limitations: no limitations History of Present Illness ED Provider: damaris SYKES narrative: Patient's history of kidney stones status post stent placement in the past was seen here on 02/05 for right flank pain comes here as the pain continue and getting worse with multiple episodes of vomiting had decreased urine output no blood at this time no fever no chills Related Data Home Medications ?Medication ?Instructions ?Recorded ?Confirmed baclofen 10 mg tablet 10 mg PO TID PRN muscle spasm 11/03/20 02/12/24 albuterol sulfate 90 mcg/actuation 2 puff PO Q4-6H PRN Wheezing 12/01/20 02/12/24 aerosol inhaler (Ventolin HFA) atorvastatin 80 mg tablet (Lipitor) 80 mg PO BEDTIME 12/01/20 02/12/24 fluticasone propionate 50 2 spray intranasal DAILY 12/01/20 02/12/24 mcg/actuation nasal spray,suspension blood pressure test kit-large #1 ea 12/19/20 02/12/24 topiramate 50 mg tablet 50 mg PO BID 12/19/20 02/12/24 cholecalciferol (vitamin D3) 50 50 mcg PO DAILY 03/13/22 02/12/24 mcg (2,000 unit) capsule mirtazapine 7.5 mg tablet 7.5 mg PO BEDTIME 06/17/22 02/12/24 lisinopril 30 mg tablet 30 mg PO DAILY 07/01/22 02/12/24 metformin 500 mg tablet,extended 500 mg PO QPM 07/01/22 02/12/24 release 24 hr metoprolol succinate 50 mg 50 mg PO DAILY 07/01/22 02/12/24 tablet,extended release 24 hr tramadol 50 mg tablet 50 mg PO Q8H PRN severe pain 10/24/22 02/12/24 capsaicin 0.025 % topical cream 1 appl topical BID PRN mild pain 10/25/22 02/12/24 metronidazole 0.75 % topical gel 1 appl topical DAILY PRN Rash 10/25/22 02/12/24 albuterol sulfate 2.5 mg/3 mL 2.5 mg inhalation Q4-6H PRN 11/15/22 02/12/24 (0.083 %) solution for nebulization Wheezing aspirin 81 mg chewable tablet 1 tab PO DAILY 11/13/23 02/12/24 fluticasone propionate 110 inhalation 11/13/23 02/12/24 mcg/actuation HFA aerosol inhaler Previous Rx's ?Medication ?Instructions ?Recorded pyridoxine (vitamin B6) 100 mg 100 mg PO DAILY 90 days #90 tabs 04/14/23 tablet ticagrelor 60 mg tablet (Brilinta) 60 mg PO BID #60 tabs 10/21/23 omeprazole 20 mg capsule,delayed 40 mg (2 x 20 mg) PO DAILY 30 days 10/29/23 release #60 caps ondansetron 4 mg disintegrating 4 mg PO Q6H PRN nausea and 11/12/23 tablet vomiting #7 tabs sucralfate 1 gram tablet 1 g PO BID PRN abdominal pain #60 11/12/23 tabs bisacodyl 5 mg tablet,delayed 20 mg (4 x 5 mg) PO ONCE PRN 12/02/23 release (Dulcolax (bisacodyl)) colonoscopy prep 1 day #4 tabs ezetimibe 10 mg tablet 10 mg PO DAILY #30 tabs 12/02/23 polyethylene glycol 3350 17 238 g PO ONCE PRN laxative effect 12/02/23 gram/dose oral powder (Miralax) 1 day #238 grams allopurinol 100 mg tablet 100 mg PO DAILY 90 days #90 tabs 12/17/23 oxycodone 5 mg tablet 5 mg PO Q6H PRN pain #20 tabs 02/07/24 tamsulosin 0.4 mg capsule (Flomax) 0.4 mg PO BEDTIME #7 caps 02/07/24 isosorbide mononitrate 60 mg 60 mg PO DAILY #30 tabs 02/12/24 tablet,extended release 24 hr Allergies Allergy/AdvReac Type Severity Reaction Status Date / Time penicillin G [PENICILLIN G] Allergy Severe DIFFICULTY Verified 02/12/24 20:20 BREATHING semaglutide [From Ozempic] AdvReac Severe Stomach Verified 02/12/24 20:20 Upset Review of Systems Review of Systems: Yes all other systems are reviewed and are negative PMFSH Past Medical History Medical History Morbid obesity Hidradenitis suppurativa CAD (coronary artery disease) Subsequent non-ST elevation myocardial infarction (NSTEMI) within 4 weeks of initial infarction Non-ST elevation [place] (NSTEMI) YAMILETH on CPAP Hyperlipidemia PTSD (post-traumatic stress disorder) Fatty liver Smoker Depression Obesity Leukocytosis Frequent UTI Asthma Mass of throat Chronic pain Kidney stone Migraine HTN (hypertension) Surgical History Stented coronary artery History of heart artery stent History of lumpectomy of left breast (10/22/21) History of lithotripsy History of endometrial ablation Hx of colonoscopy History of breast lump/mass excision History of tonsillectomy H/O: hysterectomy Family History Family History Father Hypertension Mother Hypertension Osteoporosis Hx of bilateral cataract extraction Paternal Grandmother Diabetes Sister Asthma Maternal Uncle Throat cancer Maternal Aunt Ovarian cancer Breast cancer Social History Social History Household Members: Children Housing: Apartment Are you a primary care professionals to a significant other at home: No Do you presently have visiting nurse or other home services: Yes (daughter is her process improvement consultant) Alcohol intake: never Comment: pt refusing alarms Patient Tobacco Use Status: Current everyday Tobacco user Tobacco use type: Cigarette Cigarette Packs Per Day: 1 Years Smoked: 35 +/- Second Hand Smoke Exposure: No Advance Directives: Yes Advance Directives on File: Yes Advance Directives Date on File: 10/28/22 Do you have a plan to hurt others: No Plan service: No Current occupational status: unemployed Physical Exam ED Vital Signs: Vital Signs - 24 hr 02/12/24 20:17 02/13/24 02:41 02/13/24 05:39 Temperature 98 F 98.4 F 98.4 F Pulse Rate 86 66 51 Respiratory Rate 18 16 16 Blood Pressure 141/84 H 142/87 H 151/74 H Pulse Oximetry 97 98 97 Oxygen Delivery Method Room Air Room Air Room Air BMI result Body Mass Index 51.8 Appearance: Alert. Oriented X3. In moderate distress. Eyes: No pallor or icterus ENT: Pharynx normal. Oral Mucosa moist Neck: Normal inspection. Neck supple. CVS: Normal heart rate and rhythm. Pulses normal. Respiratory: No respiratory distress. Equal air entry bilateral, no wheezing/rales/rhonchi Abdomen: Soft and nontender. Bowel sounds are present, no mass palpable, R CVA tenderness Skin: Skin warm and dry. Normal skin color. Normal skin turgor. Extremities: No lower extremity edema. No calf tenderness Neuro: Oriented X 3. Course Course Course Narrative: This is an RME: Additional HPI, ROS, PE not included below will be deferred to primary provider. RME assessment and note performed by: Marley Coates PA-C This is a 48-year-old female, with a history of kidney stones, NSTEMI, diabetes, who presents emergency department with complaints of right-sided flank pain x2 days. No urinary symptoms. She endorses some nausea and vomiting. Plan: Labs, UA, CT abd/pelvis Medications Administered Discontinued Medications Generic Name Dose Route Start Last Admin Trade Name Freq PRN Reason Stop Dose Admin Dexamethasone Sodium Phosphate 10 mg 02/13/24 06:12 02/13/24 06:29 Dexamethasone Sod Phosphate 10 Mg/Ml Vial IVPUSH 02/13/24 06:13 10 mg ONCE ONE Administration Sodium Chloride 1,000 mls @ 999 mls/hr 02/13/24 03:22 02/13/24 06:26 Ns IV 02/13/24 04:22 Infused .Q1H1M ONE Infusion Ketorolac Tromethamine 30 mg 02/13/24 03:22 02/13/24 03:45 Ketorolac Tromethamine 30 Mg/Ml Vial IVPUSH 02/13/24 03:23 30 mg ONCE ONE Administration Morphine Sulfate 4 mg 02/13/24 03:22 02/13/24 03:46 Morphine Sulfate 4 Mg/Ml Cartridge IVPUSH 02/13/24 03:23 4 mg ONCE ONE Administration Protocol Ondansetron HCl 4 mg 02/13/24 03:22 02/13/24 03:45 Ondansetron Hcl 4 Mg/2 Ml Vial IVPUSH 02/13/24 03:23 4 mg ONCE ONE Administration Tamsulosin HCl 0.4 mg 02/13/24 06:12 02/13/24 06:29 Tamsulosin Hcl 0.4 Mg Capsule PO 02/13/24 06:13 0.4 mg ONCE ONE Administration Medical Decision Making Medical Decision Making MDM Narrative: Patient with right obstructive proximal ureteric stone with pain for last [address] Bryan urologist for stent placement/ lithotripsy, will see in the ER Differential Diagnosis Differential Diagnoses: The differential diagnosis associated with the presentation includes Admission/Observation Consideration of admission/observation: Escalation of care including admission/observation considered Lab Data [facility] Lab Attestation statement: I reviewed the patient's lab results. 02/12/24 20:59 02/12/24 20:59 Labs: Lab Results 02/12/24 Range/Units 20:59 WBC 10.1 (4.8-10.8) X10*3/uL RBC 3.90 L (4.20-5.50) X10*6/uL Hgb 12.3 (12.0-16.0) g/dl Hct 36.4 L (37.0-47.0) % MCV 93.3 (80.0-98.0) fL MCH 31.5 (27.0-33.0) pg MCHC 33.8 (31.0-35.0) g/dl RDW 14.4 (11.0-16.0) % Plt Count 290 (160-400) X10*3/uL MPV 10.1 (9.4-12.3) fL Immature Gran % (Auto) 0.3 (0.0-0.4) % Neut % (Auto) 58.7 (45-73) % Lymph % (Auto) 28.6 (20-40) % [place] % (Auto) 9.4 (2-11) % Eos % (Auto) 2.4 (0-4) % Baso % (Auto) 0.6 (0-2) % Lymph # (Auto) 2.9 (1.2-4.9) X10*3/uL [place] # (Auto) 1.0 (0.1-1.2) X10*3/uL Eos # (Auto) 0.2 (0.0-0.4) X10*3/uL Baso # (Auto) 0.1 (0.0-0.2) X10*3/uL Abs Immat Gran (auto) 0.03 (0.00-0.03) X10*3/uL Absolute Neuts (auto) 5.9 (2.0-8.3) x10*3/uL Absolute Nucleated RBC 0.000 (0.0-0.012) X10*3/uL Nucleated RBC % (auto) 0.0 (0.0-0.2) /100WBC Sodium 141 (135-145) mmol/L Potassium 3.7 (3.3-5.1) mmol/L Chloride 113 H (96-108) mmol/L Carbon Dioxide 20 L (22-29) mmol/L Anion Gap 12 (12-20) BUN 13 (9-16) mg/dL Creatinine 0.90 (0.5-1.4) mg/dL Estim Creat Clear Calc 122.2 Estimated GFR > 60 Random Glucose 124 H (60-115) mg/dL Calcium 9.0 D (8.4-10.2) mg/dL Total Bilirubin 0.4 (0.0-1.0) mg/dL Direct Bilirubin 0.2 (0.0-0.5) mg/dL AST 21 (5-31) U/L ALT 21 (0-31) U/L Alkaline Phosphatase 90 (39-117) U/L Total Protein 6.8 (6.5-8.0) g/dL Albumin 3.5 (3.5-5.0) g/dL Urine Color Yellow Urine Appearance Clear Urine pH 6.0 (5.0-9.0) Ur Specific [place] 1.020 (1.005-1.025) Urine Protein Negative (Neg-Trace) mg/dL Urine Glucose (UA) Negative (Negative) mg/dL Urine Ketones Trace (Negative) mg/dL Urine Blood Moderate (2+) H (Negative) Urine Nitrite Negative (Negative) Ur Leukocyte Esterase Trace H (Negative) Urine RBC >20 H (0-2) /HPF Urine WBC 0-5 (0-5) /HPF Ur Squamous Epith Cells 0-2 (0-2) /HPF Urine Bacteria None Seen (None Seen) Hyaline Casts 0-2 (0-2) /LPF Independent Interpretation I performed an independent interpretation of an: CT Scan Radiology Impression Discussion of test interpretation with radiology: I have reviewed the radiologist's reading. Radiologist Impression: CT/CT abdomen pelvis wo IV con IMPRESSION: The right kidney is asymmetrically larger than the left and appears somewhat edematous. There is mild right-sided hydronephrosis. The proximal right ureter is dilated to the level of a calculus measuring 3.5 mm. The ureter distal to this calculus is decompressed. The right kidney contains multiple calculi ranging in size from punctate to 2.8 mm. These calculi are too small to get accurate Hounsfield unit values. Fleischner guidelines were followed. There are multiple left renal calculi ranging in size from punctate to 4 mm in size. The 4 mm calculus has an average Hounsfield unit value of 405. There is no left-sided hydronephrosis. No left ureteral calculus. Discharge Plan Discharge Clinical Impression: Hydronephrosis with urinary obstruction due to ureteral calculus Patient Disposition: Still a Patient Prescriptions: No Action polyethylene glycol 3350 [Miralax] 17 gram/dose powder 238 g PO ONCE PRN (Reason: laxative effect) 1 Days Qty: 238 0RF Rx Instructions: Take as directed by mouth the day before your procedure. bisacodyl [Dulcolax (bisacodyl)] 5 mg tablet,delayed release (DR/EC) 20 mg PO ONCE PRN (Reason: colonoscopy prep) 1 Days Qty: 4 0RF Rx Instructions: Day before procedure @ 12 noon Take 4 tablets by mouth followed by large glass of water ezetimibe 10 mg tablet 10 mg PO DAILY Qty: 30 6RF allopurinol 100 mg tablet 100 mg PO DAILY 90 Days Qty: 90 1RF albuterol sulfate [Ventolin HFA] 90 mcg/actuation HFA aerosol inhaler 2 puff PO Q4-6H PRN (Reason: Wheezing) fluticasone propionate 50 mcg/actuation spray,suspension 2 spray intranasal DAILY atorvastatin [Lipitor] 80 mg Tablet 80 mg PO BEDTIME lisinopril 30 mg tablet 30 mg PO DAILY metformin 500 mg tablet extended release 24 hr 500 mg PO QPM capsaicin 0.025 % cream 1 appl topical BID PRN (Reason: mild pain) metronidazole 0.75 % gel 1 appl topical DAILY PRN (Reason: Rash) oxycodone 5 mg tablet 5 mg PO Q6H PRN (Reason: pain) Qty: 20 0RF Rx Instructions: Partial Fill upon patient request. tamsulosin [Flomax] 0.4 mg capsule 0.4 mg PO BEDTIME Qty: 7 0RF sucralfate 1 gram tablet 1 g PO BID PRN (Reason: abdominal pain) Qty: 60 0RF ondansetron 4 mg tablet,disintegrating 4 mg PO Q6H PRN (Reason: nausea and vomiting) Qty: 7 0RF baclofen 10 mg tablet 10 mg PO TID PRN (Reason: muscle spasm) topiramate 50 mg tablet 50 mg PO BID (DME) blood pressure test kit-large Kit See Rx Instructions .ROUTE DIRECTED Qty: 1 Rx Instructions: As directed tramadol 50 mg tablet 50 mg PO Q8H PRN (Reason: severe pain) cholecalciferol (vitamin D3) 50 mcg (2,000 unit) capsule 50 mcg PO DAILY mirtazapine 7.5 mg tablet 7.5 mg PO BEDTIME metoprolol succinate 50 mg tablet extended release 24 hr 50 mg PO DAILY Brilinta 60 mg tablet 60 mg PO BID Qty: 60 11RF omeprazole 20 mg capsule,delayed release(DR/EC) 40 mg PO DAILY 30 Days Qty: 60 5RF aspirin 81 mg tablet,chewable 1 tab PO DAILY fluticasone propionate 110 mcg/actuation HFA aerosol inhaler inhalation albuterol sulfate 2.5 mg /3 mL (0.083 %) solution for nebulization 2.5 mg inhalation Q4-6H PRN (Reason: Wheezing) pyridoxine (vitamin B6) 100 mg tablet 100 mg PO DAILY 90 Days Qty: 90 3RF isosorbide mononitrate 60 mg tablet extended release 24 hr 60 mg PO DAILY Qty: 30 5RF Rx Instructions: Dose increased Print Language: Pashto
[2024-02-12 21:07] LABS: MANUAL DIFF FLAG NO
[2024-02-12 21:08] LABS: Basophils Absolute Auto 0.1 X10*3/uL (0.0-0.2); Basophils Percent Auto 0.6 % (0-2); Eosinophils Absolute Auto 0.2 X10*3/uL (0.0-0.4); Eosinophils Percent Auto 2.4 % (0-4); Hematocrit 36.4 % (37.0-47.0); Hemoglobin 12.3 g/dl (12.0-16.0); Imm Gran Abs Auto 0.03 X10*3/uL (0.00-0.03); Imm Gran Pct Auto 0.3 % (0.0-0.4); Lymphocytes Absolute Auto 2.9 X10*3/uL (1.2-4.9); Lymphocytes Percent Auto 28.6 % (20-40); Mean Corpuscular HGB Conc 33.8 g/dl (31.0-35.0); Mean Corpuscular Hemoglobin 31.5 pg (27.0-33.0); Mean Corpuscular Volume 93.3 fL (80.0-98.0); Mean Platelet Volume 10.1 fL (9.4-12.3); Monocytes Percent Auto 9.4 % (2-11); Neutrophils Absolute Auto 5.9 x10*3/uL (2.0-8.3); Neutrophils Percent Auto 58.7 % (45-73); Platelet Count 290 X10*3/uL (160-400); Red Cell Distribution Width 14.4 % (11.0-16.0); White Blood Count 10.1 X10*3/uL (4.8-10.8)
[2024-02-12 21:15] LABS: Appearance Urine Clear; Color Urine Yellow; Glucose Urine UA Negative (Negative); Leukocyte Esterase Urine Trace (Negative); Nitrite Urine Negative (Negative); UMIC TRIGGER UACC YES; Urine Blood Moderate (2+) (Negative); Urine Ketones Trace mg/dL (Negative); Urine Protein Negative (Neg-Trace)
[2024-02-12 21:24] LABS: Alanine Aminotransferase 21 U/L (0-31); Albumin Level 3.5 g/dL (3.5-5.0); Alkaline Phosphatase 90 U/L (39-117); Anion Gap 12 (12-20); Aspartate Amino Transferase 21 U/L (5-31); Bilirubin Direct 0.2 mg/dL (0.0-0.5); Bilirubin Total 0.4 mg/dL (0.0-1.0); Blood Urea Nitrogen 13 mg/dL (9-16); Carbon Dioxide 20 mmol/L (22-29); Chloride 113 mmol/L (96-108); Creatinine Clr Calc Pharmacy 122.2; Estimated Glomerular Filt Rate > 60; Glucose Random 124 mg/dL (60-115); Potassium 3.7 mmol/L (3.3-5.1); Sodium 141 mmol/L (135-145); Total Protein 6.8 g/dL (6.5-8.0)
[2024-02-12 22:21] LABS: Bacteria Urine None Seen (None Seen); Hyaline Casts Urine 0-2 /LPF (0-2); RBC Urine >20 /HPF (0-2); Squamous Epithelial Cell Urine 0-2 /HPF (0-2); WBC Urine 0-5 /HPF (0-5)
[2024-02-13] VITALS (11 sets, daily range): BP systolic 142–161; BP diastolic 65–87; PULSE 45–66; RESP 15–20; TEMP 36.1–36.9; O2SAT 95–100; BMI 52.0
[2024-02-13] MEDS: 0.9 % Sodium Chloride 1,000 ML 999 ML IV (03:42)
[2024-02-13] MEDS: ondansetron HCL 4 MG/2 ML VIAL IVPUSH (03:45)
[2024-02-13] MEDS: Ketorolac Tromethamine 30 MG/ML VIAL IVPUSH (03:45)
[2024-02-13] MEDS: Morphine Sulfate 4 MG/ML CARTRIDGE IVPUSH (03:46)
[2024-02-13] MEDS: Tamsulosin HCL 0.4 MG CAPSULE PO (06:29)
[2024-02-13] MEDS: dexAMETHasone sod phosphate 10 MG/ML VIAL IVPUSH (06:29)
--- NOTE | 2024-02-13 09:01 | PM.UROCN ---
History of Present Illness Consult details Consult date: 02/13/24 Narrative: CC: Proximal right ureteric calculus 48-year-old Bruneian-speaking female History of nephrolithiasis Known to Urology Presents with right-sided flank pain with multiple episodes of vomiting Has been seeing GI for ongoing issues Imaging CT - right kidney is asymmetrically larger than the left and appears somewhat edematous. There is mild right-sided hydronephrosis. The proximal right ureter is dilated to the level of a calculus measuring 3.5 mm. The ureter distal to this calculus is decompressed. The right kidney contains multiple calculi ranging in size from punctate to 2.8 mm. There are multiple left renal calculi ranging in size from punctate to 4 mm in size. Will require cystoscopy with ureteroscopy and stent placement Review of Systems Constitutional: Constitutional: Reports as per HPI and Reports no additional constitutional complaints Cardiovascular: Cardiovascular: Reports as per HPI and Reports no additional cardiovascular complaints Respiratory: Respiratory: Reports as per HPI and Reports no additional respiratory complaints Gastrointestinal: Gastrointestinal: Reports as per HPI and Reports no additional gastrointestinal complaints Genitourinary: Genitourinary: Reports as per HPI Musculoskeletal: Musculoskeletal: Reports no additional musculoskeletal complaints and Reports as per HPI Neurologic: Reports system reviewed and no additional complaints, except as documented and Reports as per HPI PMFSH Past Medical History Medical History Morbid obesity Hidradenitis suppurativa CAD (coronary artery disease) Subsequent non-ST elevation myocardial infarction (NSTEMI) within 4 weeks of initial infarction Non-ST elevation IA (NSTEMI) YAMILETH on CPAP Hyperlipidemia PTSD (post-traumatic stress disorder) Fatty liver Smoker Depression Obesity Leukocytosis Frequent UTI Asthma Mass of throat Chronic pain Kidney stone Migraine HTN (hypertension) Family History Family History Father Hypertension Mother Hypertension Osteoporosis Hx of bilateral cataract extraction Paternal Grandmother Diabetes Sister Asthma Maternal Uncle Throat cancer Maternal Aunt Ovarian cancer Breast cancer Surgical History Surgical History Stented coronary artery History of heart artery stent History of lumpectomy of left breast (10/22/21) History of lithotripsy History of endometrial ablation Hx of colonoscopy History of breast lump/mass excision History of tonsillectomy H/O: hysterectomy Social History Social History Household Members: Children Housing: Apartment Are you a primary career placement services counselor to a significant other at home: No Do you presently have visiting nurse or other home services: Yes (daughter is her brand development manager) Alcohol intake: never Comment: pt refusing alarms Patient Tobacco Use Status: Current everyday Tobacco user Tobacco use type: Cigarette Cigarette Packs Per Day: 1 Years Smoked: 35 +/- Second Hand Smoke Exposure: No Advance Directives: Yes Advance Directives on File: Yes Advance Directives Date on File: 10/28/22 Do you have a plan to hurt others: No Plan service: No Current occupational status: unemployed Meds Allergies Allergy/AdvReac Type Severity Reaction Status Date / Time penicillin G [PENICILLIN G] Allergy Severe DIFFICULTY Verified 02/12/24 20:20 BREATHING semaglutide [From Ozempic] AdvReac Severe Stomach Verified 02/12/24 20:20 Upset Active Medications: Current Medications Sodium Chloride (Ns) 1,000 mls @ 100 mls/hr IVCONT .Q10H ANDREW Morphine Sulfate (Morphine Sulfate 4 Mg/Ml Cartridge) 4 mg IVPUSH Q3H PRN; Protocol PRN Reason: Pain, Moderate(Pain Scale 4-6) Ondansetron HCl (Ondansetron Hcl 4 Mg/2 Ml Vial) 4 mg IVPUSH Q8H PRN PRN Reason: Nausea and Vomiting Home Medications ?Medication ?Instructions ?Recorded ?Confirmed ?Last Taken ?Type baclofen 10 mg tablet 10 mg PO TID PRN muscle spasm 11/03/20 02/12/24 Unknown History albuterol sulfate 90 mcg/actuation 2 puff PO Q4-6H PRN Wheezing 12/01/20 02/12/24 Unknown History aerosol inhaler (Ventolin HFA) atorvastatin 80 mg tablet (Lipitor) 80 mg PO BEDTIME 12/01/20 02/12/24 05/20/22 History fluticasone propionate 50 2 spray intranasal DAILY 12/01/20 02/12/24 05/21/22 History mcg/actuation nasal spray,suspension blood pressure test kit-large #1 ea 12/19/20 02/12/24 Unknown History topiramate 50 mg tablet 50 mg PO BID 12/19/20 02/12/24 Unknown History cholecalciferol (vitamin D3) 50 50 mcg PO DAILY 03/13/22 02/12/24 05/21/22 History mcg (2,000 unit) capsule mirtazapine 7.5 mg tablet 7.5 mg PO BEDTIME 06/17/22 02/12/24 Unknown History lisinopril 30 mg tablet 30 mg PO DAILY 07/01/22 02/12/24 Unknown History metformin 500 mg tablet,extended 500 mg PO QPM 07/01/22 02/12/24 Unknown History release 24 hr metoprolol succinate 50 mg 50 mg PO DAILY 07/01/22 02/12/24 Unknown History tablet,extended release 24 hr tramadol 50 mg tablet 50 mg PO Q8H PRN severe pain 10/24/22 02/12/24 Unknown History capsaicin 0.025 % topical cream 1 appl topical BID PRN mild pain 10/25/22 02/12/24 Unknown History metronidazole 0.75 % topical gel 1 appl topical DAILY PRN Rash 10/25/22 02/12/24 Unknown History albuterol sulfate 2.5 mg/3 mL 2.5 mg inhalation Q4-6H PRN 11/15/22 02/12/24 Unknown History (0.083 %) solution for nebulization Wheezing aspirin 81 mg chewable tablet 1 tab PO DAILY 11/13/23 02/12/24 Unknown History fluticasone propionate 110 inhalation 11/13/23 02/12/24 Unknown History mcg/actuation HFA aerosol inhaler famotidine 40 mg tablet 40 mg PO BEDTIME PRN heartburn 02/13/24 Unknown History semaglutide 1 mg/dose (4 mg/3 mL) 1 mg subcut QWEEK 02/13/24 Unknown History subcutaneous pen injector (Ozempic) ticagrelor 90 mg tablet 90 mg PO BID 02/13/24 Unknown History Physical Exam Vital Signs: Vital Signs: Last Vital Signs Temp 97.1 F 02/13/24 08:15 Pulse 45 L 02/13/24 08:15 Resp 16 02/13/24 08:15 BP 151/65 H 02/13/24 08:15 Pulse Ox 100 02/13/24 08:15 O2 Del Method Room Air 02/13/24 08:15 BMI result Body Mass Index 51.8 Const: General: cooperative, healthy appearing, comfortable and no acute distress Orientation/consciousness: patient oriented x3 HEENT: Face and sinus: Yes normal facial exam Mouth: moist mucous membranes Neck: Neck: Yes normal visual inspection, Yes full ROM and Yes trachea midline Chest: Chest palpation & inspection: normal inspection of the chest Resp: Effort & Inspection: normal respiratory effort, able to speak in complete sentences and no respiratory distress GI: Inspection: Yes normal to inspection Back/Spine/Pelvis: Cervical Spine: normal cervical lordosis Thoracic/Lumbar Spine: thoracic and lumbar spine normal to inspection Skin: General skin exam: no rashes or lesions noted Neuro: General: patient oriented x3, tone normal and moves all extremities Extrem: General: Yes normal to inspection and Yes capillary refill normal Results Labs 02/12/24 20:59 02/12/24 20:59 Labs: Abnormal lab results 02/12/24 Range/Units 20:59 RBC 3.90 L (4.20-5.50) X10*6/uL Hct 36.4 L (37.0-47.0) % Chloride 113 H (96-108) mmol/L Carbon Dioxide 20 L (22-29) mmol/L Random Glucose 124 H (60-115) mg/dL Urine Blood Moderate (2+) H (Negative) Ur Leukocyte Esterase Trace H (Negative) Urine RBC >20 H (0-2) /HPF Short CBC 02/12/24 Range/Units 20:59 WBC 10.1 (4.8-10.8) X10*3/uL Hgb 12.3 (12.0-16.0) g/dl Hct 36.4 L (37.0-47.0) % Plt Count 290 (160-400) X10*3/uL BMP 02/12/24 20:59 Sodium 141 Potassium 3.7 Chloride 113 H Carbon Dioxide 20 L BUN 13 Creatinine 0.90 Calcium 9.0 D Liver Function 02/12/24 Range/Units 20:59 Total Bilirubin 0.4 (0.0-1.0) mg/dL Direct Bilirubin 0.2 (0.0-0.5) mg/dL AST 21 (5-31) U/L ALT 21 (0-31) U/L Alkaline Phosphatase 90 (39-117) U/L Albumin 3.5 (3.5-5.0) g/dL Urine 02/12/24 Range/Units 20:59 Urine Color Yellow Urine Appearance Clear Urine pH 6.0 (5.0-9.0) Ur Specific Harmans 1.020 (1.005-1.025) Urine Protein Negative (Neg-Trace) mg/dL Urine Glucose (UA) Negative (Negative) mg/dL All other labs normal. Assessment and Plan (1) Hydronephrosis with urinary obstruction due to ureteral calculus: Status: Acute Plan Ureteroscopy We discussed the nature of the decision and reasonable alternatives for performing ureteroscopy. Options such as medical therapy were discussed. Interventions include chemical dissolution, ESWL, ureteroscopy with laser lithotripsy and stent placement, PCNL. The relative uncertainties and benefits related to each alternate procedure were adequately discussed. General surgical risks including, but not limited to - pain, bleeding, infection, myocardial infarction, pulmonary embolus, deep vein thrombosis and cerebrovascular accident which may result in further hospitalization were discussed. Full disclosure of the procedure as well as all major risks, benefits and complications were discussed including but not limited to damage to the urethra, bladder and kidney infection, damage to the ureter, stent migration or malposition, scarring to the renal pelvis, remnant stone fragments, subsequent stone passage with need for secondary procedures. The overall secondary procedure rate is approximately 10-15%. The overall clearance rate is approximately 90-95%. Success of the procedure in the short-term does not necessarily guarantee that long-term success will be maintained. Suitable follow up will need to be maintained. The patient showed understanding of discussion and wishes to proceed with - cystoscopy, retrograde, ureteroscopy, possible lithotripsy/stone basketing and stent on the right side Procedures Date of Service Date of Service: 02/13/24
[2024-02-13] MEDS: levoFLOXacin/D5W 500 MG/100 ML PIGGYBACK 100 MG IV (09:23)
[2024-02-13] MEDS: 0.9 % Sodium Chloride 1,000 ML 100 ML IVCONT (09:40)
--- NOTE | 2024-02-13 10:29 | PHA.MEDREC ---
Pharmacy Consult ? Medication Reconciliation Pharmacy has completed the medication reconciliation.Pt was unable to tell me what she takes at home but I was able to talk to her daughter over the phone, who confirmed her med list with me. Stated she is no longer taking mirtazipine, ondansetron, oxycodone, Ozempic, or sucrlfate at home. Also confirmed that her home dose of ticagrelor was 90mg BID, not 60mg BID..
--- OUTSIDE RECORDS SUMMARY | 2024-02-13 15:37 | XMS_ITS | Continuity of Care Document ---
Author Organization [facility] Address [address] [place] [id number]- Care Team Providers Care Value Engineer Name Role Phone Carmen Bertrand DO Primary Care Physician Encounter [facility] Date(s): 06/04/19 - 09/18/19 [facility] [address] [place] [id number]- [facility] Attending Physician: Sandy Ross DO Admitting Physician: Sandy Ross DO Referring Physician: Carmen Bertrand DO Allergies, Adverse Reactions, Alerts Substance Reaction Severity Status penicillin Unable to breathe Active aspirin anaphylactic Active Medications Abilify 15 mg oral tablet 15 mg, 1, tablet, By Mouth, Daily, Refills 0, Maintenance, 03/18/16 9:31:16 Start Date: 03/18/16 Status: Ordered albuterol 90 mcg/inh inhalation powder 2 puffs, Inhalation, Every 4 hours, 0 Refills, Maintenance, 03/18/16 9:38:06 Start Date: 03/18/16 Status: Ordered albuterol sulfate2.5mg/3ml albuterol sulfate2.5mg/3ml, Refills 0, Maintenance, 03/18/16 9:26:18, Compound Start Date: 03/18/16 Status: Ordered atorvastatin 20 mg oral tablet 1 tablet = 20 mg, By Mouth, Daily, # 30 tablet, 0 Refills, Maintenance, Tablet Start Date: 05/11/18 Status: Ordered baclofen 10 mg oral tablet 0.5 tablet = 5 mg, By Mouth, 3 times a day, PRN as needed for muscle spasm, # 30 tablet, 0 Refills,Maintenance, 06/09/14 11:53:36, Tablet Start Date: 06/09/14 Status: Ordered Depakote ER 500 mg oral tablet, extended release 1 tablet = 500 mg, By Mouth, Daily, 0 Refills, Maintenance, 03/18/16 9:31:35 Start Date: 03/18/16 Status: Ordered Flovent 110 mcg Inhaler HFA Refills 0, Maintenance, 03/18/16 9:37:31 Start Date: 03/18/16 Status: Ordered ibuprofen 800 mg oral tablet 800 mg, 1, tablet, By Mouth, 3 times a day, Refills 0, Maintenance, 03/18/16 9:28:23 Start Date: 03/18/16 Status: Ordered lisinopril 20 mg oral tablet 20 mg, 1, tablet, By Mouth, Daily, Refills 0, Maintenance, 03/18/16 9:38:23 Start Date: 03/18/16 Status: Ordered meclizine 25 mg oral tablet 1 tablet = 25 mg, By Mouth, 3 times a day, 0 Refills, Maintenance, 03/18/16 9:27:18 Start Date: 03/18/16 Status: Ordered SEROquel 100 mg oral tablet 100 mg, 1, tablet, By Mouth, 2 times a day, Refills 0, Maintenance, 03/18/16 9:34:26 Start Date: 03/18/16 Status: Ordered sertraline 100 mg oral tablet 1 tablet = 100 mg, By Mouth, Daily, 0 Refills, Maintenance, 03/18/16 9:36:53 Start Date: 03/18/16 Status: Ordered Tramadol By Mouth, 0 Refills, Maintenance, 01/17/17 15:10:17 Start Date: 01/17/17 Status: Ordered traZODone 100 mg oral tablet 100 mg, 1, tablet, By Mouth, 3 times a day, Refills 0, Maintenance, 03/18/16 9:37:18 Start Date: 03/18/16 Status: Ordered Tylenol 325 mg oral tablet 650 mg, By Mouth, Every 4 hours, PRN, Refills 0, Maintenance, Pain , Mild Pain , Moderate, 07/24/18 14:00:15 EST Start Date: 07/24/18 Status: Ordered vitamin D2 50,000 units vitamin D2 50,000 units, Refills 0, Maintenance, 03/18/16 9:34:57, Compound Start Date: 03/18/16 Status: Ordered Problem List Condition Effective Dates Status Health Status Inform ant Chronic female pelvic pain(Confirmed) Active Depression(Confirmed) Active GERD with apnea(Confirmed) Active Hirsutism(Confirmed) Active Hyperlipidemia(Confirmed) Active Hypertension(Confirmed) Active Swazi speaking patient(Confirmed) Active Migraine headache(Confirmed) Active Morbid obesity(Confirmed) Active Nephrolithiasis(Confirmed) Active Social History Social History Type Response Smoking Status Current every day eduard luther; Type: Cigarettes; Tobacco use times per day: PACK A DAY; Started at age: 16; Other: 1 PACK EVERY day; entered on: 05/29/18 Sex Medical Equipment Implanted Date:07/24/18Target Site:[employer] Description Quantity MRI Company Model PATCH HERNIA VENTRALEX LG CI R - BARD ([id number]) 1 Bard Unknown KATIE:{01}[id number]{10}[facility] [id number] Assigning Authority:FDA
--- OUTSIDE RECORDS SUMMARY | 2024-02-13 15:37 | XMS_ITS | Continuity of Care Document ---
Author Organization [facility] Address [address] [place] [id number]- Care Team Providers Care Housing Case Manager Name Role Phone Carmen Bertrand DO Primary Care Phys[id number] Date[facility] [address] [place] [id number]- [facility] Attending Physician: Pierre Suh MD Admitting Physician: Pierre Suh MD Referring Physician: Carmen Bertrand DO Allergies, Adverse [...] Active Hirsutism(Confirmed) Active Hyperlipidemia(Confirmed) Active Hypertension(Confirmed) Active Swiss speaking patient(Confirmed) Active Migraine headache(Confirmed) Active Morbid [...] HERNIA VENTRALEX LG CI R - BARD ([id number]) 1 Bard Unknown KATIE:{01}[id number]{10}[id number] Assigning Authority:FDA
--- OUTSIDE RECORDS SUMMARY | 2024-02-13 15:37 | XMS_ITS | Continuity of Care Document ---
Author Organization [facility] ter Address [address] [place] [id number]- Care Team Providers Care Rattan Worker Name Role Phone Rajeevkaren Carmen JOHNSTON Primary Care Physician [phone] Encounter [facility] Date(s): 10/27/22 - 10/29/[address] [id number] Discharge Disposition: A-D/C Home Attending Physician: Eduardo Barrios MD Admitting Physician: Xin Collins MD Referring Physician: Xin Collins MD Allergies, Adverse Reactions, Alerts Substance Reaction Severity Status penicillin Unable to breathe Active aspirin 1 anaphylactic Active 1Completed aspirin desensitization 05/2022 Immunizations Given and Recorded Vaccine Date Status Refusal Reason influenza virus vaccine, inactivated 05/07/22 Nick rded influenza virus vaccine, inactivated 05/21/21 Nick rded influenza virus vaccine, inactivated 05/19/20 Nick rded influenza virus vaccine, inactivated 06/01/19 Nick rded influenza virus vaccine, inactivated 06/26/18 Nick rded influenza virus vaccine, inactivated 09/23/17 Nick rded influenza virus vaccine, inactivated 06/05/15 Nick rded influenza virus vaccine, inactivated 05/13/14 Nick rded influenza virus vaccine, inactivated 06/13/11 Nick rded influenza virus vaccine, inactivated 05/08/07 Nick rded SARS-CoV-2 (COVID-19) mRNA-1273 vaccine 06/07/21 R ecorded SARS-CoV-2 (COVID-19) mRNA-1273 vaccine 01/29/21 R ecorded tetanus-diphtheria toxoids (Td) 05/21/21 Recorded hepatitis B adult vaccine 01/08/17 Recorded hepatitis B adult vaccine 07/23/16 Recorded hepatitis B adult vaccine 06/20/16 Recorded hepatitis B adult vaccine 11/09/12 Recorded hepatitis B adult vaccine 08/31/12 Recorded hepatitis B adult vaccine 03/18/12 Recorded hepatitis B adult vaccine 10/31/05 Recorded pneumococcal 23-valent vaccine 06/13/11 Recorded tetanus/diphtheria/pertussis, acel(Tdap) 06/13/11 Recorded Medications albuterol 90 mcg/inh inhalation powder 2 puffs, Inhalation, Every 4 hours, 0 Refills, Maintenance, 03/18/16 9:38:06 Start Date: 03/18/16 Status: Ordered albuterol sulfate2.5mg/3ml albuterol sulfate2.5mg/3ml, Refills 0, Maintenance, 03/18/16 9:26:18 EDT, Compound Start Date: 03/18/16 Status: Ordered aspirin 81 mg oral delayed release tablet 81 mg, By Mouth, Daily, # 30 tablet, Refills 1, Tot. Refills 1, Maintenance, 05/24/22 11:56:00 EDT,Route to Pharmacy Electronically, [facility], Partial fill upon patient request if the prescription is for a schedule II opioid drug., 17... Start Date: 05/24/22 Stop Date: 07/23/22 Status: Ordered atorvastatin 80 mg oral tablet 1 tablet = 80 mg, By Mouth, Daily at bedtime, # 30 tablet, 1 Refills, Maintenance, 05/24/22 11:55:00 EDT, Tablet, [facility], Partial fill upon patient request if the prescription is for a schedule II opioid drug., 173, cm, 05/24/22 7:29... Start Date: 05/24/22 Stop Date: 07/23/22 Status: Ordered baclofen 10 mg oral tablet 1 tablet = 10 mg, By Mouth, 3 times a day, PRN as needed for muscle spasm, # 30 tablet, 0 Refills, Maintenance, 06/09/14 11:53:36 EDT, Tablet Start Date: 06/09/14 Status: Ordered capsaicin 0.025% topical cream 1 application, Topically, 2 times a day, # 20 Gm, 0 Refills, Maintenance, 10/28/22 7:05:00 EDT, [place], Partial fill upon patient request if the prescription is for a schedule II opioid drug. Start Date: 3/13/23 Status: Ordered D3 50 mcg (2000 intl units) oral capsule 0 Refills, Maintenance, 05/22/22 17:13:00 EDT, Partial fill upon patient request if the prescription is for a schedule II opioid drug. Start Date: 05/22/22 Status: Ordered ezetimibe 10 mg oral tablet 1 tablet = 10 mg, By Mouth, Daily, # 30 tablet, 0 Refills, Maintenance, 10/28/22 7:05:00 EDT, Tablet, Partial fill upon patient request if the prescription is for a schedule II opioid drug. Start Date: 10/28/22 Status: Ordered fluticasone 50 mcg/inh nasal spray 2 sprays, Nares, Both, Daily in AM, 0 Refills, Maintenance, 05/22/22 17:10:00 EDT, [place], Partial fill upon patient request if the prescription is for a schedule II opioid drug. Start Date: 05/22/22 Status: Ordered isosorbide mononitrate 30 mg oral tablet, extended release 1 tablet = 30 mg, By Mouth, Daily, # 30 tablet, 1 Refills, Maintenance, 10/29/22 8:36:00 EDT, ER Tablet, [facility], Partial fill upon patient request if the prescription is for aschedule II opioid drug., 168, cm, 10/29/22 8:15:00... Start Date: 10/29/22 Status: Ordered lisinopril 10 mg oral tablet 30 mg, Tablet, By Mouth, 10/29/22 9:00:00 EDT Start Date: 10/29/22 Stop Date: 10/29/22 Status: Completed lisinopril 20 mg oral tablet 30 mg, 1.5, tablet, By Mouth, Daily, Refills 0, Maintenance, 03/18/16 9:38:23 EDT Start Date: 03/18/16 Status: Ordered MetFORMIN (Eqv-Glucophage XR) 500 mg oral tablet, extended release 0 Refills, Maintenance, 05/22/22 17:11:00 EDT, Partial fill upon patient request if the prescription is for a schedule II opioid drug. Start Date: 05/22/22 Status: Ordered metoprolol 50 mg oral tablet, extended release 50 mg, 1, tablet, By Mouth, Daily, # 30 tablet, Refills 1, Tot. Refills 1, Maintenance, 05/24/22 11:57:00 EDT, Route to Pharmacy Electronically, [facility], Partial fill upon patient request if the prescription is for a schedule II opioi... Start Date: 05/24/22 Stop Date: 07/23/22 Status: Ordered metoprolol 50 mg oral tablet, extended release 50 mg, XL Tablet, By Mouth, 10/29/22 9:00:00 EDT Start Date: 10/29/22 Stop Date: 10/29/22 Status: Completed mirtazapine 7.5 mg oral tablet 1 tablet = 7.5 mg, By Mouth, Daily at bedtime, # 30 tablet, 0 Refills, Maintenance, 10/28/22 7:03:00 EDT, Partial fill upon patient request if the prescription is for a schedule II opioid drug. Start Date: 10/28/22 Status: Ordered omeprazole 20 mg oral enteric coated capsule 1 capsule = 20 mg, By Mouth, Daily, # 30 capsule, 0 Refills, Maintenance, 05/22/22 17:11:00 EDT, [facility], Partial fill upon patient request if the prescription is for a schedule II opioid drug. Start Date: 05/22/22 Status: Ordered Ozempic 2 mg/1.5 mL (0.25 mg or 0.5 mg dose) subcutaneous solution INJECT 0.25mg SUBCUTANEOUSLY ONCE A WEEK DIRECTED Start Date: 10/28/22 Status: Ordered ticagrelor 90 mg oral tablet 1 tablet = 90 mg, By Mouth, 2 times a day, # 60 tablet, 11 Refills, Maintenance, 05/24/22 11:58:00 EDT, Tablet, [facility], Partial fill upon patient request if the prescription is for a schedule II opioid drug., 173, cm, 05/24/22 7:29:0... Start Date: 05/24/22 Stop Date: 05/19/23 Status: Ordered topiramate 50 mg oral tablet 1 tablet = 50 mg, By Mouth, 2 times a day, # 60 tablet, 5 Refills, Maintenance, 05/22/22 17:12:00 EDT, Tablet, Partial fill upon patient request if the prescription is for a schedule II opioid drug. Start Date: 05/22/22 Status: Ordered traMADol 50 mg oral tablet 1 tablet = 50 mg, By Mouth, Every 8 hours, PRN as needed for pain, 0 Refills, Maintenance, 05/22/2217:12:00 EDT, Tablet, Partial fill upon patient request if the prescription is for a schedule II opioid drug. Start Date: 05/22/22 Status: Ordered Tylenol 325 mg oral tablet 650 mg, By Mouth, Every 4 hours, PRN, Refills 0, Maintenance, Pain , Mild Pain , Moderate, 07/24/18 14:00:15 EST Start Date: 07/24/18 Status: Ordered Problem List Condition Confirmation Course Effective Dates Status H ealth Status Informant Chronic female pelvic pain Confirmed Active Depression Confirmed Active GERD with apnea Confirmed Active Hirsutism Confirmed Active Hyperlipidemia Confirmed Active Hypertension Confirmed Active Nigerian speaking patient Confirmed Active Migraine headache Confirmed Active Morbid obesity Confirmed Active Nephrolithiasis Confirmed Active Severe obesity Confirmed Active Vital Signs Most recent to oldest [Reference Range]: 1 2 3 Height 168 cm (10/29/22 8:15 AM) 168 cm (10/29/22 8:12 AM) 168 cm (10/29/22 5:50 AM) Weight 172.5 kg (10/29/22 5:50 AM) 172.5 kg (10/28/22 5:27 AM) 172.5 kg (10/27/22 9:22 PM) Oxygen Saturation [94-100 %] 97 % (10/29/22 8:15 AM) 100 % (10/29/22 8:12 AM) 94 % (10/29/22 5:50 AM) Pulse Rate [55-90 bpm] 77 bpm (10/29/22 9:23 AM) 77 bpm (10/29/22 8:15 AM) 66 bpm (10/29/22 8:12 AM) Body Mass Index [18.5-24.99 kg/m2] 61.12 kg/m2 *>HHI* (10/27/22 9:22 PM) Blood Pressure [90-138/55-84 mm Hg] 149/84mm Hg *H* (10/29/22 9:23 AM) 149/84mm Hg *H* (10/29/22 9:23 AM) 149/84mm Hg *H* (10/29/22 8:15 AM) Respiratory Rate [16-30 br/min] 18 br/min (10/29/22 8:15 AM) 18 br/min (10/29/22 8:12 AM) 18 br/min (10/29/22 5:50 AM) Temperature [96.8-100.4 DegF] 98.2 DegF (10/29/22 8:15 AM) 97.5 DegF (10/29/22 8:12 AM) 96.8 DegF (10/29/22 5:50 AM) Liters per Minute 0 L/min (10/27/22 9:22 PM) Mode of Delivery (Oxygen) Room air (10/29/22 8:15 AM) Room air (10/29/22 8:12 AM) Room air (10/29/22 5:50 AM) Blood pressure sites Arm, left (10/29/22 8:15 AM) Arm, left (10/29/22 8:12 AM) Arm, right (10/29/22 5:50 AM) Temperature Route Temporal (10/29/22 8:15 AM) Temporal (10/29/22 8:12 AM) Temporal (10/29/22 5:50 AM) Dry Weight 173 kg (10/27/22 9:22 PM) Weight Obtained Via Bed scale (10/29/22 5:50 AM) Bed scale (10/28/22 5:27 AM) Bed scale (10/27/22 9:22 PM) Social History Social History Type Response Smoking Status Current every day sm oker; Type: Cigarettes; Tobacco use times per day: PACK A DAY; Started at age: 16; Other: 1 PACK EVERY day; entered on: 05/29/18 Sex Implantable Device List Procedure Provider Procedure Date Device Type Site Repair Hernia Umbilical Open Fanny PICHARDO, Syeda 07/24/18 Unknown Umbilicus Device Identifier Serial Number Lot or Batch Number Manufacturing Date Expiration Date Distinct Identification Code MRI Safety Implantable Status Assigning Authority [id number] Unknown [id number] Unknown 11/12/18 Unknown Unknown Active GS1 Note * Event Display: Hemodynamic Procedure Report Authored Date: * Event Display: Cardiac Rhythm Strips Authored Date: * Event Display: Cardiac Rhythm Strips Authored Date: * Esthela Hernandez RN: PERFORM Event Display: Discharge/Transfer Note Hospital Authored Date: [id number] Nursing Discharge Note Entered On: 10/29/2022 11:42 EDT Performed On: 10/29/2022 11:41 EDT by Esthela Hernandez RN Nursing Discharge Note 2 Discharge Time : 10/29/2022 11:41 EDT Discharge Level of Care at Discharge : Home/Custodial/Foster Care Patient Left Unit Via : Wheelchair Patient Accompanied Off Unit with : Responsible adult DC Instructions Provided & Signed by Pt : Yes Patient Understands D/C Instructions : Yes Patient Instructions Discharge Signed : Yes Discharge Comments : Pt medically cleared for discharge. Pt IV access ans tele monitor removed. Pt understands discharge instructions and signed paperwork. Pt transported off unit with daughter via wheelchair and is going home Did Pt have Specialty Bed or Wound Vac : Yes Esthela Hernandez RN - 10/29/2022 11:41 EDT * Nedra Bray DO: MODIFY, MODIFY, MODIFY, MODIFY, MODIFY, MODIFY, MODIFY, MODIFY, MODIFY, MODIFY, MODIFY, MODIFY, MODIFY, MODIFY, MODIFY, MODIFY, MODIFY, PERFORM, MODIFY, MODIFY, MODIFY Event Display: Discharge/Transfer Note Hospital Authored Date: [id number] Patient: ??DEBBIE MAJOR ? Age:??47 Years?Sex:??Female?:??1975?? Patient Information Discharge Location: Primary Care Physician: Carmen Bertrand DO Admit Date/Time: 10/27/22 20:58 Discharge Date: 10/29/22 Discharge Disposition Discharge Disposition: Home: No Services Discharge Diagnosis NSTEMI (non-ST elevated myocardial infarction) (I21.4) Coronary artery disease??(I25.10) Hypertension??(I10) Hyperlipidemia (E78.5) T2DM (E11.9) Tobacco use disorder (F17.200) _ Discharge Medications Acetaminophen (Tylenol 325 mg oral tablet)?650?Milligram?By Mouth?Every 4 hours?as needed?Pain , Mild Pain , Moderate Albuterol (albuterol 90 mcg/inh inhalation powder)?2?puff(s)?Inhalation?Every 4 hours Aspirin (aspirin 81 mg oral delayed release tablet)?81?Milligram?By Mouth?Daily?for 30?Days Atorvastatin (atorvastatin 80 mg oral tablet)?1?tab(s)?80?Milligram?By Mouth?Daily at bedtime?for 30?Days Baclofen (baclofen 10 mg oral tablet)?1?tab(s)?10?Milligram?By Mouth?3 times a day?as needed?as needed for muscle spasm Capsaicin Topical (capsaicin 0.025% topical cream)?1?tommy?Topically?2 times a day Ezetimibe (ezetimibe 10 mg oral tablet)?1?tab(s)?10?Milligram?By Mouth?Daily Fluticasone Nasal (fluticasone 50 mcg/inh nasal spray)?2?spray(s)?Nares, Both?Daily in AM Isosorbide Mononitrate (isosorbide mononitrate 30 mg oral tablet, extended release)?1?tab(s)?30?Milligram?By Mouth?Daily Lisinopril (lisinopril 20 mg oral tablet)?30?Milligram?1.5?tablet?By Mouth?Daily Metoprolol (metoprolol 50 mg oral tablet, extended release)?50?Milligram?1?tablet?ByMouth?Daily?for 30?Days Mirtazapine (mirtazapine 7.5 mg oral tablet)?1?tab(s)?7.5?Milligram?By Mouth?Daily at bedtime Omeprazole (omeprazole 20 mg oral enteric coated capsule)?1?capsule?20?Milligram?By Mouth?Daily semaglutide (Ozempic 2 mg/1.5 mL (0.25 mg or 0.5 mg dose) subcutaneous solution)?INJECT 0.25mg SUBCUTANEOUSLY ONCE A WEEK DIRECTED Ticagrelor (ticagrelor 90 mg oral tablet)?1?tab(s)?90?Milligram?By Mouth?2 times a day?for 30?Days Topiramate (topiramate 50 mg oral tablet)?1?tab(s)?50?Milligram?By Mouth?2 times a day Tramadol (traMADol 50 mg oral tablet)?1?tab(s)?50?Milligram?By Mouth?Every 8 hours?as needed?as needed for pain ? Quality Measures Chest Pain, AMI Quality Measures:?Aspirin Prescribed at Discharge:??Allergy to Aspirin [DESENSITIZED??05/2022] ?? Medications Started Isosorbide Mononitrate (isosorbide mononitrate 30 mg oral tablet, extended release)?1?tab(s)?30?Milligram?By Mouth?Daily Medications Discontinued None Doses Changed None PCP Follow-Up/Heads-Up [ ] Presented with chest pain/discomfort with radiating left arm/back pain; elevated Trop. [ ] Underwent cardiac cath 10/28- LAD stent patent, unchanged coronary angiogram otherwise. [ ] Started Imdur 30mg PO QD. [ ] Will need F/U with [facility] in 6-8 weeks; they will schedule this. [ ] Encourage smoking cessation, recommend close follow-up to continue this further out-patient- would likely benefit from non-nicotine pharmacological therapy. Hospital Course 47-year-old Nigerian-speaking female past medical history of CAD s/p PCI with stent placement this past fall, morbid obesity, hypertension, hyperlipidemia, current tobacco dependence with 1 pack/day smoking history, uyx-cakfxvl-hzpkxejnt type 2 diabetes,??asthma, chronic pain,??depression, history of renal stones, migraines, and PTSD, who developed chest discomfort with radiating left shoulder/arm/back pain while cooking on the evening of 10/27 found to have an NSTEMI, transferred to [facility] from for cardiac catheterization which was relatively unremarkable. Patient was started on daily Imdur with instructions to follow-up with cardiology out-patient. ?? #NSTEMI #CAD s/p PCI #Hypertension #Hyperlipidemia #Tobacco dependence Presented with chest pain that radiated to L arm and back; very similar presentation to prior ACS event last fall. Echo on 10/25 with EF of 68%, moderately increased LV wall thickness, no obvious valvular pathology. EKG nonacute. Chest x-ray with no significant abnormality Troponin peak unclear, does not??appear to be significantly elevated but only one obtained. Lipid panel obtained on admission, LDL 108. A1c 5.7. Active smoker, smoking 1 pack every 3 days. Has nicotine gum but finds it very difficult to quit- counseling provided. ?? Started on heparin ggt overnight. Cardiology consulted for cardiac cath. S/p cath 10/28: Prior LAD stent patent. Unchanged coronary angiogram otherwise. Started Imdur 30mg PO QD. ?? RECOMMENDATIONS: -Start Imdur 30mg PO QD -Continue home ASA, Brilinta, Metoprolol, Lisinopril -Continue Atorvastatin 80mg PO qPM and Ezetimibe 10mg PO QD -Follow-up with cardiology out-patient -Continue to encourage smoking cessation counseling; may benefit from oral medications ?? #Type 2 diabetes mellitus?? A1c 5.7. On Metformin 500mg PO XR??and Semaglutide 0.25mg weekly at home. Held PO meds while admitted and given ISS. ?? RECOMMENDATIONS: -Continue home Metformin and Semaglutide ?? CHRONIC/STABLE MEDICAL CONDITIONS: #Depression, PTSD: Continue home Mirtazapine 7.5mg PO qPM #Migraines: Continue home Topiramate 50mg PO BID #Chronic pain: Continue home??Tramadol 50 mg every 8 hours as needed and Tylenol as needed, and home Baclofen 10mg PO TID PRN??for back spasms #Asthma: Continue PRN Albuterol as needed and home Fluticasone nasal spray #GERD: Continue Omeprazole 20mg PO QD at??home Objective Vital Signs?? Temperature: 98.2 DegF (10/29/22 08:15:00) Temperature Route: Temporal (10/29/22 08:15:00) Pulse Rate: 77 bpm (10/29/22 08:15:00) Respiratory Rate: 18 br/min (10/29/22 08:15:00) Systolic Blood Pressure:??149 mm Hg??High (10/29/22 08:15:00) Diastolic Blood Pressure: 84 mm Hg (10/29/22 08:15:00) Blood pressure sites: Arm, left (10/29/22 08:15:00) Mean Arterial Pressure: 106 mm Hg (10/29/22 08:15:00) Pulse Pressure: 65 mm Hg (10/29/22 08:15:00) Oxygen Saturation: 97 % (10/29/22 08:15:00) Mode of Delivery (Oxygen): Room air (10/29/22 08:15:00) Early Warning Score: 0 (10/29/22 08:21:18) . Physical Exam Constitutional: Pleasant and cooperative, not in acute distress. Head: Normocephalic. Eyes:??Extraocular muscles intact. Ear, Nose and Throat: Oropharynx clear, mucous membranes moist. Ears and nose without masses, lesions or deformities. Trachea midline. Neck: Supple, Full range of motion. Respiratory: Non-labored breathing, breathing comfortably on room air. Lung sounds diminished throughout all lung aquino. Cardiovascular:??Normal rate, regular rhythm.??No murmurs, rubs or gallops. Gastrointestinal: Abdomen soft, non-tender, non-distended. Normal bowel sounds. Genitourinary: No suprapubic tenderness. Neurologic: Alert and oriented x3. Speech clear, comprehension intact. No gross focal neurological deficits. Skin: No acute or concerning rashes or lesions. No petechiae or purpura.?? Musculoskeletal: No gross deformities. Normal range of motion, moving all 4 extremities spontaneously. Psychiatric: Normal mood and affect without obvious signs of anxiety or depression. Consultants Interventional cardiology (Brent Aleman MD) Pending Results None Patient Education Titles Kicking the Smoking Habit?? How to Quit Smoking?? Uncertain Causes of Chest Pain?? Cardiac Rehabilitation?? Tips for Quitting Smoking (Cardiovascular)?? Follow-Up Appointments Added Follow Up ?Time Frame ?[facility]1 to 2 weeks?Facility has been emailed and will call you with an appointment Carmen Bertrand DO?1 to 2 weeks Patient Instructions You were transferred to [facility] for a cardiac catheterization after presenting to [facility] with chest pain radiating down into your left arm that resolved by the time you arrived at [facility]. The results from your catheterization showed no concerning blockages within the arteries of your heart. Cardiology started you on a new medication, Imdur 30mg by mouth daily; we have sent thisprescription to your pharmacy. Please continue the rest of your home medications as prescribed. ?? You will need to follow-up with your caseworker for an inpatient follow-up visit in 6-8 weeks; someone from your office should be reaching out to you directly to schedule this appointment, but if you do not hear from anyone in the next couple of weeks, please call their office directly to schedule this appointment. ?? We also request for you to follow-up with your primary care doctor within 1-2 weeks of discharge. Please call Dr. Bertrand's office to schedule this??appointment at the number above. ?? If you experience chest pain or pressure again with or without pain radiating down into your arm, jaw pain, nausea, excessive sweating, dizziness, please return to the ED for further evaluation. ?? We are glad you are feeling better and wish you all the best! Post Discharge Care Diet: Diabetic Diet Activity: OOB as tolerated Wound Care: N/A Code Status:??Full Resuscitation Condition: Fair Prognosis: Fair Home Health Face to Face N/A Results Discharge Labs BLOOD COUNT & DIFF WBC 13.8 k/mm3 (High)?? 10/29/2022 06:22 RBC 3.95 m/mm3 (Low)?? 10/29/2022 06:22 Hgb 11.9 Gm/dL ()?? 10/29/2022 06:22 Hct 37.6 % ()?? 10/29/2022 06:22 MCV 95.2 femtoliters ()?? 10/29/2022 06:22 MCH 30.1 pg ()?? 10/29/2022 06:22 MCHC 31.6 g/dL (Low)?? 10/29/2022 06:22 Platelet Count 303 k/mm3 ()?? 10/29/2022 06:22 RDW-SD 49.1 femtoliters (High)?? 10/29/2022 06:22 MPV 9.7 femtoliters ()?? 10/29/2022 06:22 Nucleated RBC (Automated) 0.0 #/100 WBC'S ()?? 10/29/2022 06:22 Abs. NRBC 0.0 k/mm3 ()?? 10/29/2022 06:22 ?? CARDIAC High Sensitivity Troponin (HSTnT) 24 ng/L (High)?? 10/27/2022 23:21 ? CHEM GENERAL Sodium 140 mmol/L ()?? 10/29/2022 06:22 Potassium 4.2 mmol/L ()?? 10/29/2022 06:22 Chloride 109 mmol/L (High)?? 10/29/2022 06:22 Bicarbonate Level 22 mmol/L ()?? 10/29/2022 06:22 Anion Gap 9 ()?? 10/29/2022 06:22 Glucose Level 91 mg/dL ()?? 10/29/2022 06:22 Glucose, POC 89 mg/dL ()?? 10/29/2022 08:10 Hemoglobin A1C (Monitoring) 5.8 % (High)?? 10/28/2022 05:13 BUN 14 mg/dL ()?? 10/29/2022 06:22 Creatinine-Blood 0.9 mg/dL ()?? 10/29/2022 06:22 Estimated GFR Creatinine 77 ML/MIN/1.73 M2 ()?? 10/29/2022 06:22 Calcium 9.3 mg/dL ()?? 10/29/2022 06:22 Magnesium 2.1 mg/dL ()?? 10/29/2022 06:22 Protein, Total 6.9 Gm/dL ()?? 10/27/2022 23:21 Albumin 3.5 Gm/dL ()?? 10/27/2022 23:21 AG Ratio 1.0 ()?? 10/27/2022 23:21 Alkaline Phosphatase 78 units/L ()?? 10/27/2022 23:21 AST (SGOT) 15 units/L ()?? 10/27/2022 23:21 ALT (SGPT) 13 units/L ()?? 10/27/2022 23:21 Bilirubin, Total 0.2 mg/dL ()?? 10/27/2022 23:21 Estimated Average Glucose 117 mg/dL ()?? 10/27/2022 23:21 ? COAG INR 1.1 ()?? 10/27/2022 23:21 Protime (PT) 11.4 seconds ()?? 10/27/2022 23:21 APTT 83.3 seconds (High)?? 10/28/2022 05:13 ? LIPID STUDIES Cholesterol 178 mg/dL ()?? 10/27/2022 23:21 Triglycerides 144 mg/dL ()?? 10/27/2022 23:21 HDL Cholesterol 41 mg/dL ()?? 10/27/2022 23:21 LDL Cholesterol 108 mg/dL ()?? 10/27/2022 23:21 Non HDL Cholesterol 137 mg/dL ()?? 10/27/2022 23:21 ? VIROLOGY COVID-19 PCR Specimen Source NASAL ()?? 10/27/2022 22:00 COVID-19 PCR Result NEGATIVE ()?? 10/27/2022 22:00 ? 30??minutes spent on discharge. ? Patient reviewed with supervising??attending Dr. Barrios. ?? Nedra Bray, DO Internal Medicine, PGY-1 Pager# [phone] * Sophie PICHARDO, Eduardo N: PERFORM Event Display: Discharge/Transfer Note Hospital Authored Date: Attending Attestation: I have??seen and evaluated??DEBBIE MAJOR, on 10/29/22. ??I have??reviewed the patient???s medical history, findings on examination, diagnosis, and treatment. I have discussedthe case and its management with the resident and agree with the findings and plan as documented inthe resident???s note.? _ ? * Esthela Hernandez RN: PERFORM Event Display: Patient Education/Instruction Authored Date: Inpatient Adult Discharge Instructions [place] [id number] Name: DEBBIE MAJOR : 1975 Visit: 10/27/2022 20:58:00 Current Date: 10/29/2022 11:03 Account: [id number] Inpatient Adult Discharge Instructions We would like to thank you for allowing us to assist you with your healthcare needs. The following includes patient education materials and information regarding your injury/illness. Our entire staffstrives to provide an excellent experience for our patients and their families. PLEASE ENSURE YOU FOLLOW-UP PER THE INSTRUCTIONS BELOW! ?? YOUR OPINION IS IMPORTANT TO US! Please complete the survey you may receive by mail or email. Your feedback will be used to make improvements to the healthcare experiences of our patients and their families. Surveys are administered by [employer] ?? If further treatment with your primary care physician or another doctor is recommended, it is important for you to keep the appointment. Call your primary care physician or return to the Emergency Department immediately if your condition worsens, fails to improve, or new symptoms develop. If you need to find a doctor, you can call [facility] for a referral at [phone] or toll free at [phone]) or log in to [email or web address].. ?? You can view and manage your care through the patient portal or by using a health care tommy of your choosing. XIP[employer] is a website that allows you to securely view your medical information including your hospital discharge summary, office visit summaries, medications and follow-up visits. You can also request appointments, renew medications, and request access to your medical information using a health care tommy of your choosing, or just ask a question. You can enroll at [email or web address] or register during your next office visit. You have been discharged from [facility], Patient Care Unit: M7. If you have any questions regarding these instructions after you leave, please call us and we will be happy to assist you. [facility] Your Care Team Attending Physician Sophie PICHARDO, Eduardo Dean Discharging Providers Nedra Bray DO Reason for Admission NSTEMI Your Diagnosis NSTEMI (non-ST elevated myocardial infarction) CAD (coronary artery disease) Hypertension Tobacco use disorder Hyperlipidemia T2DM (type 2 diabetes mellitus) Tests Performed Below is a partial list of the tests performed during your hospitalization. You may have had other tests and procedures not included in this list. Please discuss all test results with your provider. Basic Metabolic Panel CBC Comprehensive Metabolic Panel COVID-19 (NOVEL CORONAVIRUS) PCR GLUCOSE POC HEMOGLOBIN A1C Hemoglobin A1C w/ Estimated Glucose INR Lipid Panel Magnesium Level PTT Troponin T, High Sensitivity Primary Care Provider Carmen Bertrand DO Advance Directive Health Care Proxy on File Yes - Health Care Proxy Patient has a Designated Caregiver: No Discharge Vitals Temperature: 98.2 DegF Height: 168 cm Pulse Rate: 77 bpm Weight: 172.5 kg Respiratory Rate: 18 br/min Body Mass Index:??61.12 kg/m2??Critical Systolic Blood Pressure:??149 mm Hg??High Body surface area: 2.84 Systolic Blood Pressure:??149 mm Hg??High ?? Diastolic Blood Pressure: 84 mm Hg ?? Diastolic Blood Pressure: 84 mm Hg ?? Oxygen Saturation: 97 % ?? Studies Pending All tests and labs ordered during this hospital stay have been completed unless listed below. Please discuss all pending results with your provider listed above in these instructions. ?? Add On Lab Order What to do next Instructions From Your Doctor You were transferred to [facility] for a cardiac catheterization after presenting to [facility] with chest pain radiating down into your left arm that resolved by the time you arrived at [facility]. The results from your catheterization showed no concerning blockages within the arteries of your heart. Cardiology started you on a new medication, Imdur 30mg by mouth daily; we have sent thisprescription to your pharmacy. Please continue the rest of your home medications as prescribed. ?? You will need to follow-up with your caseworker for an inpatient follow-up visit in 6-8 weeks; someone from your office should be reaching out to you directly to schedule this appointment, but if you do not hear from anyone in the next couple of weeks, please call their office directly to schedule this appointment. ?? We also request for you to follow-up with your primary care doctor within 1-2 weeks of discharge. Please call Dr. Bertrand's office to schedule this??appointment at the number above. ?? If you experience chest pain or pressure again with or without pain radiating down into your arm, jaw pain, nausea, excessive sweating, dizziness, please return to the ED for further evaluation. ?? We are glad you are feeling better and wish you all the best! Discharge Orders You Need to Schedule the Following Appointments Follow Up with??Y[facility] When??Within 1 week: call to discuss follow up visit Why: Set up follow up visit within 6-8 weeks Where: ?? Follow Up with??[facility] Phase 2 Cardiac Rehab When??Within 1 to 2 weeks Why: Facility has been emailed and will call you with an appointment Where: [address] [place] [address]- [phone] Follow Up with??Carmen Bertrand DO When??Within 1 to 2 weeks Where: [address] [place] [address]- Discharge Medications PEDRITO DEBBIE :1975 Visit Date:10/27/2022 Medications: Please continue your medications until treatment is completed or stopped by your provider. Medications not listed below should be discontinued. Discuss any questions related to medications with your provider. What How Much When Instructions Next Dose New Isosorbide Mononitrate (isosorbide mononitrate 30 mg oral tablet, extended release) 1 tab(s) Oral Daily Refills: 1 Pickup at [facility] Tomorrow Morning Unchanged Acetaminophen (Tylenol 325 mg oral tablet) 650 Milligram Oral Every 4 hours as needed for Pain , Mild Pain , Moderate As needed every 4 hours for pain Unchanged Albuterol (albuterol 90 mcg/ inh inhalation powder) 2 puff(s) Inhalation Every 4 hours This afternoon at 3pm as needed for wheezing/shortness of breath Unchanged Aspirin (aspirin 81 mg oral delayed release tablet) 81 Milligram Oral Daily Duration: 30 Days Tomorrow Morning Unchanged Atorvastatin (atorvastatin 80 mg oral tablet) 1 tab(s) Oral Daily at Bedtime Duration: 30 Days Tonight at bedtime Unchanged Baclofen (baclofen 10 mg oral tablet) 1 tab(s) Oral 3 times a day as needed for as needed for muscle spasm As needed every 3 hours for muscle spasms Unchanged Capsaicin Topical (capsaicin 0.025% topical cream) 1 tommy Topically Twice a day Resume home schedule Unchanged Cholecalciferol (D3 50 mcg (2000 intl units) oral capsule) Tomorrow Morning Unchanged Ezetimibe (ezetimibe 10 mg oral tablet) 1 tab(s) Oral Daily Tomorrow Morning Unchanged Fluticasone Nasal (fluticasone 50 mcg/ inh nasal spray) 2 spray(s) Nares, Both Daily in the morning Tomorrow Morning Unchanged Lisinopril (lisinopril 20 mg oral tablet) 1.5 tab(s) Oral Daily Tomorrow Morning Unchanged Metformin (MetFORMIN (Eqv-Glucophage XR) 500 mg oral tablet, extended release) Resume home schedule tomorrow Unchanged Metoprolol (metoprolol 50 mg oral tablet, extended release) 1 tab(s) Oral Daily Duration: 30 Days Tomorrow Morning Unchanged Mirtazapine (mirtazapine 7.5 mg oral tablet) 1 tab(s) Oral Daily at Bedtime Tonight at bedtime Unchanged Miscellaneous Rx (albuterol sulfate2.5mg/ 3ml) resume home schedule Unchanged Omeprazole (omeprazole 20 mg oral enteric coated capsule) 1 capsule Oral Daily Tomorrow Morning Unchanged semaglutide (Ozempic 2 mg/ 1.5 mL (0.25 mg or 0.5 mg dose) subcutaneous solution) INJECT 0.25mg SUBCUTANEOUSLY ONCE A WEEK DIRECTED ?? Resume home schedule Unchanged Ticagrelor (ticagrelor 90 mg oral tablet) 1 tab(s) Oral Twice a day Duration: 30 Days Tonight at bedtime Unchanged Topiramate (topiramate 50 mg oral tablet) 1 tab(s) Oral Twice a day Tonight at bedtime Unchanged Tramadol (traMADol 50 mg oral tablet) 1 tab(s) Oral Every 8 hours as needed for as needed for pain As needed every 8 hours for pain Pharmacy Information [facility]: [address] [place] [address] [phone] ?? What How Much When Comments Stop Taking amiTRIPTYLINE (amitriptyline 10 mg oral tablet) 1 tab(s) Oral Daily at Bedtime Stop Taking Paroxetine (PARoxetine 20 mg oral tablet) 1 tab(s) Oral Daily at Bedtime Stop Taking Quetiapine (SEROquel 100 mg oral tablet) 0.5 tab(s) Oral Twice a day Stop Taking Spironolactone (spironolactone 100 mg oral tablet) TAKE 1 TABLET BY MOUTH TWICE DAILY ?? Stop Taking Tamsulosin (Flomax 0.4 mg oral capsule) 1 capsule Oral Daily Duration: 30 Days follow up with urology for instruction/ refills ?? Test Results Below is a partial list of the most recent Laboratory test results done prior to this discharge. You may have had other tests and procedures not included in this list. Please discuss all test resultswith your provider. Basic Metabolic Panel (10/29/2022) ???Sodium - 140 mmol/L???Potassium - 4.2 mmol/L???Chloride - 109 mmol/L???Bicarbonate Level - 22 mmol/L???Anion Gap - 9???Glucose Level - 91 mg/dL???BUN - 14 mg/dL???Creatinine-Blood - 0.9 mg/dL???Estimated GFR Creatinine - 77 ML/MIN/1.73 M2???Calcium - 9.3 mg/dL CBC (10/29/2022) ???WBC - 13.8 k/mm3???RBC - 3.95 m/mm3???Hgb - 11.9 Gm/dL???Hct - 37.6 %???MCV - 95.2 femtoliters???MCH - 30.1 pg???MCHC - 31.6 g/dL???Platelet Count - 303 k/mm3???RDW-SD - 49.1 femtoliters???MPV - 9.7 femtoliters???Nucleated RBC (Automated) - 0.0 #/100 WBC'S???Abs. NRBC - 0.0 k/mm3 Comprehensive Metabolic Panel (10/27/2022) ???Sodium - 138 mmol/L???Potassium - 3.8 mmol/L???Chloride - 105 mmol/L???Bicarbonate Level - 22 mmol/L???Anion Gap - 11???Glucose Level - 93 mg/dL???BUN - 14 mg/dL???Creatinine-Blood - 1.0 mg/dL???Estimated GFR Creatinine - 72 ML/MIN/1.73 M2???Calcium - 9.7 mg/dL???Protein, Total - 6.9 Gm/dL???Albumin - 3.5 Gm/dL???AG Ratio - 1.0???Alkaline Phosphatase - 78 units/L???AST (SGOT) - 15 units/L???ALT (SGPT) - 13 units/L???Bilirubin, Total - 0.2 mg/dL COVID-19 (NOVEL CORONAVIRUS) PCR (10/28/2022) ???COVID-19 PCR Specimen Source - NASAL???COVID-19 PCR Result - NEGATIVE GLUCOSE POC (10/29/2022) ???Glucose, POC - 89 mg/dL HEMOGLOBIN A1C (10/28/2022) ???Hemoglobin A1C (Monitoring) - 5.8 % Hemoglobin A1C w/ Estimated Glucose (10/27/2022) ???Hemoglobin A1C (Monitoring) - 5.7 %???Estimated Average Glucose - 117 mg/dL INR (10/27/2022) ???INR - 1.1???Protime (PT) - 11.4 seconds Lipid Panel (10/27/2022) ???Cholesterol - 178 mg/dL???Triglycerides - 144 mg/dL???HDL Cholesterol - 41 mg/dL???LDL Cholesterol - 108 mg/dL???Non HDL Cholesterol - 137 mg/dL Magnesium Level (10/29/2022) ???Magnesium - 2.1 mg/dL PTT (10/28/2022) ???APTT - 83.3 seconds Troponin T, High Sensitivity (10/27/2022) ???High Sensitivity Troponin (HSTnT) - 24 ng/L Allergies (NKA means No Known Allergies) aspirin??(anaphylactic) penicillin??(Unable to breathe) Problems Active Problems??(11) Chronic female pelvic pain?? Depression?? GERD with apnea?? Hirsutism?? Hyperlipidemia?? Hypertension?? Migraine headache?? Morbid obesity?? Nephrolithiasis?? Severe obesity?? Nigerian speaking patient?? Education Materials Below is the list of Educational Leaflet Providered with your Discharge Instructions. Surgery Radial Cath Approach Discharge Instructions?? Isosorbide Extended Release Oral Tablet?? Kicking the Smoking Habit?? How to Quit Smoking?? Uncertain Causes of Chest Pain?? Cardiac Rehabilitation?? Tips for Quitting Smoking (Cardiovascular)?? Valuables and Belongings I fully understand and agree that [facility] accepts no responsibility for all my personal property including clothing, toilet articles, radios, jewelry, dentures, hearing aids, rings, money, or any other property that is in my possession or is brought to me after admission. I understand certain valuables may be placed in a hospital safe for a short period of time. I understand that the hospital is not liable for loss or damage due to accident, fire, or other natural occurrence while said property is in the safe. I accept full responsibility for any personal property that I keep with me, and will not hold the hospital responsible in case of loss or disappearance. I acknowledge that i have been encouraged to send valuables and belongings home. ?? Date for Pt to Sign Valuables/Belongings: 10/27/22 21:10:00 ?? Other Discharge Information ? Pulmonary Rehab Status?? Pulmonary Rehab Discharge Status?? Respiratory Rate: 18 br/min ? Cardiac Rehab Assessment?? Cardiac Rehab Inpatient Assessment?? Comments-Education: Stent education, post procedure guideline Comments-Smoking Cessation: Reinforced and gave [id number] Comments-Exercise Activity: Progressive ambulation to 30 min, 3-x 10min/day Comments-Nutrition: Heart healthy Mediterranean Comments-Lipids: Per MD, diet exercise Comments-Other plan of care: PHASE 2 CARDIAC REHAB 2 WEEKS AT ? Cardiac Re-Hab Comments: [facility] emailed for phase 2 appt Patient attending Phase II: Yes Phase II Site of Care: [place] [address] [place] [address] [phone] Common Emergency Awareness Tips IS IT A STROKE? Act FAST and Check for these signs: FACE Does the face look uneven? ARM Does one arm drift down? SPEECH Does their speech sound strange? TIME Call at any sign of stroke ?? Heart Attack Signs Chest discomfort: Most heart attacks involve discomfort in the center of the chest and lasts more than a few minutes, or goes away and comes back. It can feel like uncomfortable pressure, squeezing, fullness or pain. Discomfort in upper body: Symptoms can include pain or discomfort in one or both arms, back, neck, jaw or stomach. Shortness of breath: With or without discomfort. Other signs: Breaking out in a cold sweat, nausea, or lightheaded. Remember, MINUTES DO MATTER. If you experience any of these heart attack warning signs, call to get immediate medical attention! ?? Smoking can increase your chances of developing chronic health problems and can cause harmful effects to other family members in your house. If you smoke, you are strongly encouraged to quit. Please call [facility] [employer] Link at [phone] or [phone] ([phone]) or log in to [email or web address] for referrals to smoking cessation programs. ?? The National Suicide Prevention Hotline is available 10/03 if you or someone you know needs to find a reason to keep living. By calling 1-696-995Treedom (3857) you'll be connected to a skilled, trained counselor at a crisis center in your area. INPATIENT DISCHARGE INSTRUCTIONS SIGNATURE DEBBIE LUND Location:[facility] Registration Date and Time:10/27/2022 20:58 EDT Primary Care Physician: Carmen Bertrand DO DEBBIE GARCIA, have received the above patient education materials/instructions and have verbalized understanding. If ambulance or transport services are being used I further acknowledge being given a choice of service. ?? If you need to contact me, please call me at this number: . Patient/Data Entry Assistant Name: Patient/Data Entry Assistant Signature: Relationship to Patient: Witness Name/Signature: Date: * Shannan Romo: PERFORM, SIGN, VERIFY Event Display: Patient Education Handout Authored Date: [id number] * Esthela Hernandez RN: PERFORM Event Display: Patient Education Leaflets Authored Date: [id number] Surgery Radial Cath Approach Discharge Instructions ?? 278 Radial Cath Approach Discharge Instructions ?? Activity Take it easy the rest of the day. Limit your activity on the affected side.?? Act as if your arm is broken for 24 hours. No lifting with affected arm for 24 hours. No pushing or pulling with the affected arm. Do not reach or lift with the affected arm. Do not place excessive pressure on the wrist. ?? Precautions Due to intravenous sedation: It is recommended that someone stay with you for the first night after your procedure. Do not drive or operate hazardous machinery for 24 hours. Do not make legal decisions for 24 hours. Avoid alcohol for 24 hours. Unless directed otherwise, keep yourself hydrated. ?? Dressing/Incision Care You may remove the dressing 24 hours after your procedure. Replace with band aid for an additional 24 hours. You may shower and cleanse the site with soap &&water then pat dry. Avoid submersion of site in water x 5 days. Cover the with a clean band aid daily until site is healed. If the band aid becomes soiled, replacewith a clean new one. Do not apply any ointments, lotions, gels or powders to the puncture site. ?? When to contact your doctor If any of the following signs of infection occur: Fever greater than 100 degrees F Increased pain Drainage, redness or warmth at puncture site Tingling of the fingers and hand that last longer than 3 days Slight bubble of blood or bleeding from site: apply manual pressure and notify your doctor ?? Emergency situations: Bleeding from the site that will not stop: apply manual pressure and notify your doctor Profuse bleeding streaming from the puncture site: Apply manual pressure and notify your doctor immediately If your hand becomes bluish, cold to the touch, or painful, notify your doctor immediately or go toEmergency Department. For these emergent situations: If unable to contact your physician, call 911. ?? * Esthela Hernandez RN: PERFORM Event Display: Patient Education Leaflets Authored Date: [id number] Isosorbide Extended Release Oral Tablet ?? [id number] Isosorbide Extended Release Oral Tablet Uses This medicine is used for the following purposes: ??? angina ??? enlarged veins ?? Instructions Swallow the medicine without crushing or chewing it. Take the medicine with 250 mL (1 cup) of water. It is very important that you take the medicine at about the same time every day. It will work bestif you do this. Take the medicine first thing in the morning. Keep the medicine at room temperature. Avoid heat and direct light. It is important that you keep taking each dose of this medicine on time even if you are feeling well. If you forget to take a dose on time, take it as soon as you remember. If it is almost time for thenext dose, do not take the missed dose. Return to your normal schedule. Do not take 2 doses at one time. Tell your doctor and pharmacist about all your medicines. Include prescription and ckki-sla-nxtiqrgvcdyjgkwl, vitamins, and herbal medicines. Do not suddenly stop taking this medicine. Check with your doctor before stopping. ?? Cautions Tell your doctor and pharmacist if you ever had an allergic reaction to a medicine. Do not use the medication any more than instructed. This medicine may cause dizziness or fainting, especially after exercising or in hot weather. Be very careful when standing or sitting up quickly. Your ability to stay alert or to react quickly may be impaired by this medicine. Do not drive or operate machinery until you know how this medicine will affect you. Tell the doctor or pharmacist if you are , planning to be , or . Do not take this medicine with other medicines called PDE5 inhibitors (Viagra, Levitra, Cialis). Your doctor will let you know if it is safe for you to do so. Do not start or stop any other medicines without first speaking to your doctor or pharmacist. Do not share this medicine with anyone who has not been prescribed this medicine. ?? Side Effects The following is a list of some common side effects from this medicine. Please speak with your doctor about what you should do if you experience these or other side effects. ??? dizziness ??? headaches ??? nausea Call your doctor or get medical help right away if you notice any of these more serious side effects: ??? low blood pressure A few people may have an allergic reaction to this medicine. Symptoms can include difficulty breathing, skin rash, itching, swelling, or severe dizziness. If you notice any of these symptoms, seek medical help quickly. ?? Extra Please speak with your doctor, nurse, or pharmacist if you have any questions about this medicine. ?? [email or web address] IMPORTANT NOTE: This document tells you briefly how to take your medicine, but it does not tell youall there is to know about it. Your doctor or pharmacist may give you other documents about your medicine. Please talk to them if you have any questions. Always follow their advice. There is a more complete description of this medicine available in Jordanian. Scan this code on your smartphone or tablet or use the web address below. You can also ask your pharmacist for a printout. If you have any questions, please ask your pharmacist. The display and use of this drug information is subject to Terms of Use. Copyright(c) 2022 [employer] (formerly [employer]). ?? [employer]. All rights reserved. This information is not intended as a substitute for professional medical care. Always follow your healthcare professional's instructions. ?? * Nedra Bray DO: PERFORM Event Display: Patient Education Leaflets Authored Date: [id number] Kicking the Smoking Habit ?? 16363 Kicking the Smoking Habit?? If you smoke, it doubles your risk of heart disease. Quitting is one of the best changes you can make for your heart and your overall health. Your risk of heart attack goes down within 1 day of putting out that last cigarette. As you go longer without smoking, your risk drops even more. Quitting isn???t easy. But millions of people have done it. You can, too. It???s never too late to quit. Getting started Boost your chances of success by deciding on your quit plan. Your healthcare provider and cardiac rehab team can help you create this plan. Even if you???ve already quit, it???s easy to slip back into smoking.??Your plan can help you prevent and recover from relapse.??Start by setting a date to quit within a month. And then do it. ?? Wittmann to your quit plan ??? Talk with your healthcare provider about prescription medicines and nicotine replacement products that help stop the urge to smoke.? Join a support group or quit-smoking program. Talking with others about the challenges of quitting can help you get through them. For more support options, try www.smokefree.gov. ??? Ask other smokers in your home to quit with you. ??? Look for the cues in your life that you connect with smoking. Stay away from them. ? Track your triggers What gives you that ???N-hahd-k-cigarette?? feeling? List all the situations that make you want a cigarette. Then think of other ways to deal with these situations. Here are some examples: ? Situation How I'll handle it Finishing a meal Get up from the table and take a walk Having an argument Find a quiet place and breathe deeply Feeling lonely or bored Call a friend to talk Tips for quitting successfully ??? List the benefits of quitting such as reducing heart risks and saving money. Keep this list and review it whenever you feel like smoking. ??? Get support. Let your friends know you may call them to talk when you have an urge to smoke. ??? If you???ve tried to quitbefore without success, this time stay away from the triggers that may cause the relapse. ??? Make the most of slip-ups. Try to learn from them, and then get back on track. ??? Be accountable to yourfriends and your calendar so that you stay on track. ?? For family and friends ??? Be supportive and patient. Quitting smoking can be hard and stressful. ??? If you smoke, now???s a great time to quit. Even if you don???t quit, never smoke around your loved one. Secondhand smoke is dangerous to his or her heart. ??? The best goals are reached as a team.Remember that when your loved one says he or she wants to stop smoking. ?? Last Reviewed Date: 2019 ?? 2608-9236 [employer]. All rights reserved. This information is not intended as a substitute for professional medical care. Always follow your healthcare professional's instructions. ?? Cardiac catheterization study * Event Display: Cardiac Endband Cutter Hand Report Authored Date: Cardiac Diagnostic Report Demographics Patient Name PEDRITO LEWIS Gender Female Corporate Race Black Facility Room Number M712 Height 66.14 inches Date of 1975 Weight 380.3 pounds Age 47 year(s) BSA 2.63 m2 Accession Number [id number] BMI 61.12 kg/m2 Referring Physician Venancio Dawn Date of Study 10/28/2022 Performing Physician Brent Aleman MD Fellow Edouard Wills Interventional Physician Procedure Procedure Type Diagnostic procedure:Coronary Angiography with LHC ACC Diagnostic Catheterization Status:Urgent Indications Indications: NSTEMI. Clinical History Admission Medications + +------+------+ + + +---------+ !Medication !Dosage!Times !Last !Last !Administered !Comments ! ! ! !Per !Delivery !Delivery ! ! ! ! ! !Day !Date !Time ! ! ! + +------+------+ + + +---------+ !Aspirin (any) !81 mg !x 1 !10/28/2022!00:00 !Yes ! ! + +------+------+ + + +---------+ !Beta Celso ! ! ! ! ! ! ! !(any) ! ! ! ! ! ! ! + +------+------+ + + +---------+ !Unfractionated ! ! ! ! ! ! ! !Heparin (any) ! ! ! ! ! ! ! + +------+------+ + + +---------+ !Statin (any) ! ! ! ! ! ! ! + +------+------+ + + +---------+ Clinical Evaluation Leading to Procedure - The patient's CAD presentation was assessed as: Non-STEMI. - The patient's anginal syndrome during the past two weeks was assessed as: Class III according to the [place] [employer] Classification System (CCS). ACC Risk Factors The patient risk factors include:prior PCI;obesity, physical activity, treated and uncontrolled hypercholesterolemia, treated and uncontrolled hypertension, dyslipidemia and Current - Every day tobacco use. Additional Clinical History:47-year-old female with previous NSTEMI and LAD PCI in 05/2022 presenting with CP and mildly elevated troponin levels. Here for diagnotic angio. Procedure Data Procedure Date Date: 10/28/2022Start: 12:06End: 12:41 The procedure was explained in detail to the patient. Risks, complications and alternative treatments were reviewed. Written consent was obtained. Entry Locations - Retrograde Percutaneous access was performed through the Right Radial artery (Primary location). A 6 Fr sheath was inserted. Hemostasis was successfully obtained using Prelude Sync EZ. Closure Comments: 13cc in TR band . Procedure Medications - Ticagrelor P.O. 90 mg. - Versed (Midazolam) I.V. 1 mg. - Fentanyl I.V. 50 mcg. - Lidocaine 2% S.C. Right Wrist 3 ml. - Nitroglycerin I.A. 200 mcg. - Versed (Midazolam) I.V. 1 mg. - Fentanyl I.V. 50 mcg. - Heparin I.V. 6000 units. - 0.9NS I.V. bolus 500 ml. Sedation: My intra-service moderate sedation time was: from 1212 to 1241. Refer to procedural log for detailed chronological information. Contrast Material - Omnipaque 35 ml Diagnostic Catheters - [id number] RADIAL TIG 4.0 RADIFOCUS OPTITORQUE CATHETERwas used for: Left heart catheterization. - [id number] RADIAL TIG 4.0 RADIFOCUS OPTITORQUE CATHETERwas used for: Left coronary angiography. - [id number] RADIAL TIG 4.0 RADIFOCUS OPTITORQUE CATHETERwas used for: Right coronary angiography. Fluoroscopy Time: Diagnostic: 3:54 minutes. Total: 3:54 minutes. Fluoroscopy Dose: Diagnostic: 1141 mGy. Total: 1141 mGy. Dose Area Product:Diagnostic: 394576 mGy/cm2. Total: 244773 mGy/cm2. Procedure Narrative We accessed the RRA using a 6 Fr slender sheath. We crossed into LV and recorded LVEDP. Angio with 5 Fr [place]. Hemostasis with regular TR band. Angiographic Findings Cardiac Arteries and Lesion Findings LMCA: Normal. LAD: Mild plaque proximal to the stent. Patent LAD stent. Unchanged compared to PCI cines from 05/23/22.There is a previous stent on Prox LAD. LCx: Normal. RCA: Normal. Hemodynamics Condition: Rest O2 Consumption: Estimated: 250.68Heart Rate: 59 bpm Pressures (mmHg) +-----+ + !Site !Pressure ! +-----+ + !LV !131/-9 ,3 ! +-----+ + !AO !93/45 (71)! +-----+ + !LV !117/-8 ,7 ! +-----+ + !AO !85/55 (70)! +-----+ + Valve Gradients and Areas +------+----+----+----+-----+----+------+ !Valve !Peak!Mean!Area!Index!Flow!Source! +------+----+----+----+-----+----+------+ !Aortic!24 !17 ! ! ! ! ! +------+----+----+----+-----+----+------+ !Aortic!24 !17 ! ! ! ! ! +------+----+----+----+-----+----+------+ Shunts Oxygen Values O2 Capacity 167.28 O2 Consumption 250.68 Interventional Procedure Conclusions Diagnostic Summary 47-year-old female presenting with CP and mildly elevated high sensitivity troponin levels. Hemodynamics: Low systemic pressures. Normal LVEDP. There is mild gradient 17 mm Hg across the aortic valve. Coronary anatomy: Patent LAD stent. Mild plaque proximal to the LAD stent - similar to before. No obvious change in anatomy to explain the patient's symptoms. Diagnostic Recommendations Aggressive secondary risk factor modification according to ATP III guidelines. Continue aspirin 81 mg/day indefinitely. c/w Brilinta. Add Imdur 30 mg daily. Smoking cessation. ACC Diagnostic Recommendations: Medical therapy and/or counseling. Complications:None. Signatures * Event Display: Cardiac Endband Cutter Hand Report Authored Date: History and physical note * Caprice PICHARDO, Rigo: PERFORM Event Display: History and Physical Hospital Authored Date: Patient: ??DEBBIE MAJOR ? Age:??47 Years?Sex:??Female?:??1975?? Chief Complaint/Reason for Consultation chest pain History of Present Illness Patient is a 47-year-old Nigerian-speaking female past medical history of CAD s/p stents,morbid obesity, chronic pain, hypertension, hyperlipidemia, current tobacco dependence with 1 pack/day smoking history, [id number]-[id number] type 2 diabetes,??asthma, depression, history of renal stones, migraines, and PTSD, developed chest discomfort while cooking??radiating to left shoulder and left arm with associated nausea. ??No associated shortness of breath or palpitation. ??She took her aspirin Brilinta and statin but did not have much relief so went to??[facility] emergency??room. ??She??denies any??orthopnea or PND. ??No cough or runny nose or sore throat or fever or chills. ??She reports resolution of pain by the time to go if she got to the hospital. ??She denies getting nitro.?? She denies any history of DVT or PE. ??Reports family history of RI in mother at the age of 58 of 59.?While at [facility] she??was treated as NSTEMI on heparin drip and was evaluated by cardiology.?? She reports only 1 episode of??brief chest pain yesterday??that lasted about 10 minutes and??resolved without any intervention. ??She underwent echo on 10/25. ??Cardiology recommended transfer to [facility]??for further management. ? Review of Systems All other review of systems were negative with the exception of those noted above in the HPI.?? Objective Measurements?? Height: 168 cm (10/28/22) Weight: 172.5 kg (10/28/22) Dry Weight: 173 kg (10/27/22) Body Mass Index:??61.12 kg/m2??Critical (10/27/22) ? Vital Signs?? Temperature: 97.1 DegF (10/28/22 02:38:00) Temperature Route: Temporal (10/28/22 02:38:00) Pulse Rate: 56 bpm (10/28/22 02:38:00) Respiratory Rate: 16 br/min (10/28/22 02:38:00) Systolic Blood Pressure:??139 mm Hg??High (10/28/22 02:38:00) Diastolic Blood Pressure: 73 mm Hg (10/28/22 02:38:00) Blood pressure sites: Arm, right (10/28/22 02:38:00) Mean Arterial Pressure: 95 mm Hg (10/28/22 02:38:00) Pulse Pressure: 66 mm Hg (10/28/22 02:38:00) Oxygen Saturation: 94 % (10/28/22 02:38:00) Liters per Minute: 0 L/min (10/27/22 21:22:00) Mode of Delivery (Oxygen): Room air (10/28/22 02:38:00) Early Warning Score: 4 (10/28/22 06:51:43) ? Intake/Output? 10/27 20:58 10/28 07:00 10/27 07:00 10/26 07:00 10/25 07:00 ?? 10/28 07:14 10/28 07:14 10/28 06:59 10/27 06:59 10/26 06:59 Intake ?0 ?0 ?0 ?0 ?0 Output ?0 ?0 ?0 ?0 ?0 Net Total ?0 ?0 ?0 ?0 ?0 ? Urine Count ?0 ?0 ?0 ?0 ?0 ? Physical Exam Constitutional: Alert, in no acute distress. Head EENT: Extraocular muscle movement intact.??Moist mucous membranes.?? Neck: Supple. No JVD. Respiratory: Clear to auscultation. No wheezing or crackles. No use of accessory muscles. Cardiovascular: S1S2 regular. No murmurs, rubs or gallops. Gastrointestinal: Obese, Abdomen soft, non-tender, non-distended. Normal bowel sounds. Genitourinary: No CVA tenderness. Extremities: Edema1+ Neurologic: AAOx3, Speech normal. No focal neurological deficits. Skin: Hirsutism noted Psychiatric: Normal mood and affect Assessment/Plan Diagnoses ?? Patient is a 47-year-old Nigerian-speaking female past medical history of CAD s/p stents,morbid obesity, chronic pain, hypertension, hyperlipidemia, current tobacco dependence with 1 pack/day smoking history, jfn-nfemjjp-jyriiwwlt type 2 diabetes,??asthma, depression, history of renal stones, migraines, and PTSD, developed chest discomfort while cooking??radiating to left shoulder and left arm ? Chest Pain ACS CAD s/p PCI Hypertension Hyperlipidemia Tobacco dependence ??- Echo on 10/25 with EF of 68%, moderately increased LV wall thickness, no obvious valvular pathology. - EKG nonacute - Chest x-ray with no significant abnormality - Troponin peak unclear, does not??appear to be significantly elevated will get 1 troponin her -As needed EKG for chest pain -Continue cardiac telemetry monitoring -We will check lipid panel and A1c and INR -Continue??aspirin, Brilinta,??metoprolol,??lisinopril. Continue heparin drip. -Contiue atorvastatin 80 mg daily, Zetia not available on formulary -N.p.o. after midnight for possible cath in the morning. ??Cardiology consulted. ?Type 2 diabetes mellitus:??Hold metformin.??SSI while admitted, check A1c, Hold metformin and Ozempic while admitted ?Depression and PTSD: Reports not taking amitriptyline, paroxetine, and quetiapine, continue mirtazapine ??Gout, unclear if on allopurinol, was not??on the list provided to me,??this will need to be clarified in the morning. ??Migraines: Continue topiramate 50 mg twice daily ??Chronic pain: Continue tramadol 50 mg every 8 hours as needed and Tylenol as needed, -Baclofen asneeded for back spasms ?Asthma: Continue albuterol as needed and fluticasone ??H/o Renal stones, no pain currently ??Gastroesophageal reflux disease: Continue PPI?? DVT prophylaxis with??heparin gtt ?? Histories Allergies Allergies ?(Active and Proposed Allergies Only) aspirin? (Severity: Unknown severity, Onset: Unknown) ?Reactions: anaphylactic ?Comments: Completed aspirin desensitization 05/2022 penicillin? (Severity: Unknown severity, Onset: 12/17/2005) ?Reactions: Unable to breathe ? Past Medical History/Problem List Active Problems??(11) Chronic female pelvic pain Depression GERD with apnea Hirsutism Hyperlipidemia Hypertension Migraine headache Morbid obesity Nephrolithiasis Severe obesity Nigerian speaking patient ? Past Surgical History Repair of umbilical hernia with prosthesis: 07/24/18 RA TL: 2014 Bilateral complete salpingectomy, uterus, cervix Right oophorectomy Endometrial ablation Lithotripsy Left Breast Biopsy Tonsillectomy ? Social History Alcohol Details:??Use: Never. Sexual Details:??Sexually involved in last 6 months: No. ??Sexual orientation: Heterosexual. Substance Abuse Details:??Use: Never. Tobacco Details:??Current every day smoker, Other: 1 PACK EVERY day. ??Type: Cigarettes. ??Tobacco use times per day: PACK A DAY. ??Started at age: 16 Years. ? Family History Mother: Glaucoma; Hysterectomy; Osteoporosis Sister: Hysterectomy; Uterine cancer ?23-OCT-2013 07:24:12<$> ? Medications Home Medications Acetaminophen (Tylenol 325 mg oral tablet)?650?Milligram?By Mouth?Every 4 hours?as needed?Pain , Mild Pain , Moderate Albuterol (albuterol 90 mcg/inh inhalation powder)?2?puff(s)?Inhalation?Every 4 hours Aspirin (aspirin 81 mg oral delayed release tablet)?81?Milligram?By Mouth?Daily?for 30?Days Atorvastatin (atorvastatin 80 mg oral tablet)?1?tab(s)?80?Milligram?By Mouth?Daily at bedtime?for 30?Days Baclofen (baclofen 10 mg oral tablet)?1?tab(s)?10?Milligram?By Mouth?3 times a day?as needed?as needed for muscle spasm Capsaicin Topical (capsaicin 0.025% topical cream)?1?tommy?Topically?2 times a day Ezetimibe (ezetimibe 10 mg oral tablet)?1?tab(s)?10?Milligram?By Mouth?Daily Fluticasone Nasal (fluticasone 50 mcg/inh nasal spray)?2?spray(s)?Nares, Both?Daily in AM Lisinopril (lisinopril 20 mg oral tablet)?30?Milligram?1.5?tablet?By Mouth?Daily Metoprolol (metoprolol 50 mg oral tablet, extended release)?50?Milligram?1?tablet?ByMouth?Daily?for 30?Days Mirtazapine (mirtazapine 7.5 mg oral tablet)?1?tab(s)?7.5?Milligram?By Mouth?Daily at bedtime Omeprazole (omeprazole 20 mg oral enteric coated capsule)?1?capsule?20?Milligram?By Mouth?Daily semaglutide (Ozempic 2 mg/1.5 mL (0.25 mg or 0.5 mg dose) subcutaneous solution)?INJECT 0.25mg SUBCUTANEOUSLY ONCE A WEEK DIRECTED Ticagrelor (ticagrelor 90 mg oral tablet)?1?tab(s)?90?Milligram?By Mouth?2 times a day?for 30?Days Topiramate (topiramate 50 mg oral tablet)?1?tab(s)?50?Milligram?By Mouth?2 times a day Tramadol (traMADol 50 mg oral tablet)?1?tab(s)?50?Milligram?By Mouth?Every 8 hours?as needed?as needed for pain ? Inpatient Medications Medications (22) Active SCHEDULED: (10) Aspirin 81 mg EC Tablet (Aspirin Tablet) ??81 mg, By Mouth, Daily Atorvastatin 80 mg Tablet (atorvastatin 80 mg oral tablet) ??80 mg, By Mouth, Daily at bedtime Fluticasone Propionate 50mcg/inh Nasal [place] (fluticasone 50 mcg/inh nasal spray) ??100 mcg 2 sprays, Nares, Both, Daily in AM Lisinopril 10 mg Tablet (lisinopril 10 mg oral tablet) ??30 mg, By Mouth, Daily Metoprolol 50 mg XL Tablet (metoprolol 50 mg oral tablet, extended release) ??50 mg, By Mouth, Daily Mirtazapine 15 mg Tablet (mirtazapine 15 mg oral tablet) ??7.5 mg, By Mouth, Daily at bedtime NaCl 0.9% Flush 3ml (NaCL 0.9% Flush) ??3 mL, IV Push, Every 8 hours Pantoprazole 40 mg EC Tablet (pantoprazole 40 mg oral delayed release tablet) ??40 mg, By Mouth, Daily Ticagrelor 90 mg Tablet (Ticagrelor Tablet) ??90 mg 1 tablet, By Mouth, 2 times a day Topiramate 25 mg Tablet (Topiramate Tablet) ??50 mg, By Mouth, 2 times a day CONTINUOUS: (1) Heparin 25,000 units / 250 mL D5W premix 25,000 units [7 units/kg/hr] + D5%W Premixed IV 250 mL (Heparin 25,000 units in 250 mL Premix 25,000 units [7 units/kg/hr] + D5%W Premixed IV 250 mL) ??250 mL, IV Infusion, 12.08 mL/hr PRN: (11) Acetaminophen 325 mg Tablet (Acetaminophen Tablet) ??650 mg, By Mouth, Every 4 hours Albuterol 90mcg/Inhalation Inhaler HFA (Ventolin 90 mcg Inhaler) ??90 mcg 1 puffs, Inhalation, Every 4 hours Baclofen 10 mg Tablet (baclofen 10 mg oral tablet) ??10 mg, By Mouth, 3 times a day Dextromethorphan-Guaifenesin 20 mg-200 mg/10 mL Liqu UD (Robitussin DM Liquid) ??10 mL, By Mouth, Every 4 hours Heparin 5000 units/mL Inj (1 mL) (Heparin Inj) ??10,000 units 2 mL, IV Push, Every 6 hours Heparin 5000 units/mL Inj (1 mL) (Heparin Inj) ??5,000 units 1 mL, IV Push, Every 6 hours Melatonin 3 mg Tablet (Melatonin Tablet) ??3 mg, By Mouth, Daily at bedtime NaCl 0.9% Flush 3ml (NaCL 0.9% Flush) ??3 mL, IV Push, Every 8 hours Polyethylene Glycol 17 Gm Powder (MiraLax Powder) ??17 Gm 1 pack/packet, By Mouth, Daily Senna 8.6 mg / Docusate 50 mg tablet (Docusate/Senna Tablet) ??1 tablet, By Mouth, 2 times a day Simethicone 80 mg Chewable Tablet (Simethicone Tablet) ??80 mg, Chew, 3 times a day ? Results Recent Labs BLOOD COUNT & DIFF WBC 13.8 k/mm3 (High)?? 10/28/2022 05:13 RBC 4.04 m/mm3 (Low)?? 10/28/2022 05:13 Hgb 12.3 Gm/dL ()?? 10/28/2022 05:13 Hct 38.3 % ()?? 10/28/2022 05:13 MCV 94.8 femtoliters ()?? 10/28/2022 05:13 MCH 30.4 pg ()?? 10/28/2022 05:13 MCHC 32.1 g/dL (Low)?? 10/28/2022 05:13 Platelet Count 321 k/mm3 ()?? 10/28/2022 05:13 RDW-SD 48.7 femtoliters (High)?? 10/28/2022 05:13 MPV 9.8 femtoliters ()?? 10/28/2022 05:13 Nucleated RBC (Automated) 0.0 #/100 WBC'S ()?? 10/28/2022 05:13 Abs. NRBC 0.0 k/mm3 ()?? 10/28/2022 05:13 ?? CARDIAC High Sensitivity Troponin (HSTnT) 24 ng/L (High)?? 10/27/2022 23:21 ?? CHEM GENERAL Sodium 138 mmol/L ()?? 10/27/2022 23:21 Potassium 3.8 mmol/L ()?? 10/27/2022 23:21 Chloride 105 mmol/L ()?? 10/27/2022 23:21 Bicarbonate Level 22 mmol/L ()?? 10/27/2022 23:21 Anion Gap 11 ()?? 10/27/2022 23:21 Glucose Level 93 mg/dL ()?? 10/27/2022 23:21 Hemoglobin A1C (Monitoring) 5.7 % (High)?? 10/27/2022 23:21 BUN 14 mg/dL ()?? 10/27/2022 23:21 Creatinine-Blood 1.0 mg/dL ()?? 10/27/2022 23:21 Estimated GFR Creatinine 72 ML/MIN/1.73 M2 ()?? 10/27/2022 23:21 Calcium 9.7 mg/dL ()?? 10/27/2022 23:21 Protein, Total 6.9 Gm/dL ()?? 10/27/2022 23:21 Albumin 3.5 Gm/dL ()?? 10/27/2022 23:21 AG Ratio 1.0 ()?? 10/27/2022 23:21 Alkaline Phosphatase 78 units/L ()?? 10/27/2022 23:21 AST (SGOT) 15 units/L ()?? 10/27/2022 23:21 ALT (SGPT) 13 units/L ()?? 10/27/2022 23:21 Bilirubin, Total 0.2 mg/dL ()?? 10/27/2022 23:21 Estimated Average Glucose 117 mg/dL ()?? 10/27/2022 23:21 ?? COAG INR 1.1 ()?? 10/27/2022 23:21 Protime (PT) 11.4 seconds ()?? 10/27/2022 23:21 APTT 33.5 seconds (High)?? 10/27/2022 21:30 ?? LIPID STUDIES Cholesterol 178 mg/dL ()?? 10/27/2022 23:21 Triglycerides 144 mg/dL ()?? 10/27/2022 23:21 HDL Cholesterol 41 mg/dL ()?? 10/27/2022 23:21 LDL Cholesterol 108 mg/dL ()?? 10/27/2022 23:21 Non HDL Cholesterol 137 mg/dL ()?? 10/27/2022 23:21 ?? VIROLOGY COVID-19 PCR Specimen Source NASAL ()?? 10/27/2022 22:00 COVID-19 PCR Result NEGATIVE ()?? 10/27/2022 22:00 ? EKG study * Event Display: EKG Authored Date: * Event Display: ECG 12-Lead Authored Date: Please click on pdf link to open report * Event Display: ECG 12-Lead Authored Date: Ventricular Rate: 59 BPM Atrial Rate: 59 BPM P-R Interval: 200 ms QRS Duration: 88 ms Q-T Interval: 446 ms QTC Calculation(Bazett): 441 ms P [place]: 57 degrees R [place]: 40 degrees T [place]: 51 degrees Sinus bradycardia Nonspecific T wave abnormality Abnormal ECG Confirmed by IMMANUEL TORRE ([id number]) on 10/28/2022 6:54:19 PM [place]: IMMANUEL TORRE [facility] Progress note * Kavya Quinteros: PERFORM Event Display: Progress Note Hospital Authored Date: PT wanted to leave AMA at beginning of shift. This RN educated pt on importance of monitoring for bleeding post cath. Pt agreed to stay the night. * Nia Pearson RN: VERIFY, PERFORM, SIGN Event Display: Progress Note Hospital Authored Date: Patient: DEBBIE MAJOR Age: 47 years Sex: Female : 1975 Associated Diagnoses: None Author: Nia Pearson RN Findings Problem Related to Alteration in Cardiac Function (new) : Alteration in Cardiac Function/new 10/28/2022 16:00 EDT Alteration in Cardiac Status Related to ACS, Cardiac Procedure, Chest pain Goals & Outcomes, Cardiac Status Pt will resume/maintain adequate cardiac output, Pt will resume/maintain adequate hemodynamic status, Pt will resume/maintain adequate respiratory function, Pt will resume/maintain intact neuro function, Pt will maintain adequate GI/ function appropriate for pt, Pt will maintain adequate nutrition status, Pt/caregiver will state understanding of diagnosis, Pt/caregiver will state strategies to reduce risk factors, Pt/caregiver will state understanding of procedure, Pt will state pain at procedure site to be tolerable Cardiac Interventions Implemented Assess/monitor cardiac status, Assess/monitor neuro status, Assess/monitor respiratory status, Assess for tolerance of IV infusions; verify rate & dose, Call/Report variances in ECG to provider, Document & Monitor O2 Sats; Administer O2 as ordered, If no bowel movement in 3 days activate bowel regime, Monitor & document daily weight, Monitor anticoagul ation values, Monitor ECG w/administration of antiarrhythmics (CO 13.420), Obtain 12 Lead ECG and CXR as ordered, Prep pt for treatments & procedures, Teach/encourage deep breath & cough exercises, Teach/encourage use of incentive spirometer, Assess for chest pain, document characteristics,Apply pressure at puncture site if hematoma develops, Assess baseline peripheral pulses, Assess forpost procedural discomfort, Assess for post procedural hematoma at site, Assess procedure site for distal pulses, Implement post procedure orders, Pre/post cath guideline BH Goals/Interventions, Cardiac Yes Cardiac, Problem Start 10/28/2022 16:00 Reviewed Plan with, Cardiac Status Patient Patient Progression, Cardiac Status Patient progressing according to plan . Nursing Data Vital Signs : VITAL SIGNS SECTION 10/28/2022 13:01 EDT Temperature 97.4 DegF Temperature Route Oral Pulse Rate 61 bpm Respiratory Rate 18 br/min Systolic Blood Pressure 107 mm Hg Diastolic Blood Pressure 64 mm Hg Blood pressure sites Arm, left Mean Arterial Pressure 78 mm Hg Pulse Pressure 43 mm Hg Oxygen Saturation 98 % Mode of Delivery (Oxygen) Room air . Narrative/Incidental A&OX4. LS dim throughout on room air saturating 98%. NSR in the 60s. No chest pain or SOB. Heparin gtt running up until cath. Went down for cath today. Came back, went right radial. TR band on, +2 radial pulse, fingers warm. VSS and monitored. Heparin gtt d/c per order. 1L NS administered 250mL/hr per order. TR band came off at 1800, no bleeding, applied gauze dressing. Plan for d/c tomorrow.. * Nedra Bray DO: MODIFY, MODIFY, MODIFY, MODIFY, MODIFY, MODIFY, MODIFY, MODIFY, PERFORM, MODIFY, MODIFY, MODIFY, MODIFY, MODIFY, MODIFY, MODIFY, MODIFY Event Display: Progress Note Hospital Authored Date: [id number] Patient: ??DEBBIE MAJOR ? Age:??47 Years?Sex:??Female?:??1975?? Subjective ?? Debbie feels well this morning with no complaints. She denies chest pain or pressure, palpitations, SOB, diaphoresis, nausea, abdominal pain, or back pain. No dizziness. She still has a tiny amount of L arm pain but this pain is significantly improved compared to yesterday. ?? Review of Systems Pertinent negative and positives included in subjective above.?? Objective Vital Signs?? Temperature: 97.6 DegF (10/28/22 07:59:00) Temperature Route: Temporal (10/28/22 07:59:00) Pulse Rate: 67 bpm (10/28/22 08:25:00) Respiratory Rate: 18 br/min (10/28/22 07:59:00) Systolic Blood Pressure: 126 mm Hg (10/28/22 08:25:00) Systolic Blood Pressure: 126 mm Hg (10/28/22 08:25:00) Diastolic Blood Pressure: 72 mm Hg (10/28/22 08:25:00) Diastolic Blood Pressure: 72 mm Hg (10/28/22 08:25:00) Blood pressure sites: Arm, right (10/28/22 07:59:00) Mean Arterial Pressure: 90 mm Hg (10/28/22 07:59:00) Pulse Pressure: 54 mm Hg (10/28/22 07:59:00) Oxygen Saturation: 98 % (10/28/22 07:59:00) Liters per Minute: 0 L/min (10/27/22 21:22:00) Mode of Delivery (Oxygen): Room air (10/28/22 07:59:00) Early Warning Score: 2 (10/28/22 11:15:10) ? Physical Exam Constitutional: Pleasant and cooperative, not in acute distress. Head: Normocephalic. Eyes:??Extraocular muscles intact. Ear, Nose and Throat: Oropharynx clear, mucous membranes moist. Ears and nose without masses, lesions or deformities. Trachea midline. Neck: Supple, Full range of motion. Respiratory: Non-labored breathing, breathing comfortably on room air. Lung sounds diminished throughout all lung aquino. Cardiovascular:??Normal rate, regular rhythm.??No murmurs, rubs or gallops. Gastrointestinal: Abdomen soft, non-tender, non-distended. Normal bowel sounds. Genitourinary: No suprapubic tenderness. Neurologic: Alert and oriented x3. Speech clear, comprehension intact. No gross focal neurological deficits. Skin: No acute or concerning rashes or lesions. No petechiae or purpura.?? Musculoskeletal: No gross deformities. Normal range of motion, moving all 4 extremities spontaneously. Psychiatric: Normal mood and affect without obvious signs of anxiety or depression. _ Inpatient Medications Medications (23) Active SCHEDULED: (11) Aspirin 81 mg EC Tablet (Aspirin Tablet) ??81 mg, By Mouth, Daily Atorvastatin 80 mg Tablet (atorvastatin 80 mg oral tablet) ??80 mg, By Mouth, Daily at bedtime Fluticasone Propionate 50mcg/inh Nasal [place] (fluticasone 50 mcg/inh nasal spray) ??100 mcg 2 sprays, Nares, Both, Daily in AM Insulin Lispro 100 units/mL Inj (3mL) (Insulin LISPRO Sliding Scale) ??1-5 units, Subcutaneous Injection, 3 times a day before meals Lisinopril 10 mg Tablet (lisinopril 10 mg oral tablet) ??30 mg, By Mouth, Daily Metoprolol 50 mg XL Tablet (metoprolol 50 mg oral tablet, extended release) ??50 mg, By Mouth, Daily Mirtazapine 15 mg Tablet (mirtazapine 15 mg oral tablet) ??7.5 mg, By Mouth, Daily at bedtime NaCl 0.9% Flush 3ml (NaCL 0.9% Flush) ??3 mL, IV Push, Every 8 hours Pantoprazole 40 mg EC Tablet (pantoprazole 40 mg oral delayed release tablet) ??40 mg, By Mouth, Daily Ticagrelor 90 mg Tablet (Ticagrelor Tablet) ??90 mg 1 tablet, By Mouth, 2 times a day Topiramate 25 mg Tablet (Topiramate Tablet) ??50 mg, By Mouth, 2 times a day CONTINUOUS: (1) Heparin 25,000 units / 250 mL D5W premix 25,000 units [9 units/kg/hr] + D5%W Premixed IV 250 mL (Heparin 25,000 units in 250 mL Premix 25,000 units [9 units/kg/hr] + D5%W Premixed IV 250 mL) ??250 mL, IV Infusion, 15.57 mL/hr PRN: (11) Acetaminophen 325 mg Tablet (Acetaminophen Tablet) ??650 mg, By Mouth, Every 4 hours Albuterol 90mcg/Inhalation Inhaler HFA (Ventolin 90 mcg Inhaler) ??90 mcg 1 puffs, Inhalation, Every 4 hours Baclofen 10 mg Tablet (baclofen 10 mg oral tablet) ??10 mg, By Mouth, 3 times a day Dextromethorphan-Guaifenesin 20 mg-200 mg/10 mL Liqu UD (Robitussin DM Liquid) ??10 mL, By Mouth, Every 4 hours Heparin 5000 units/mL Inj (1 mL) (Heparin Inj) ??10,000 units 2 mL, IV Push, Every 6 hours Heparin 5000 units/mL Inj (1 mL) (Heparin Inj) ??5,000 units 1 mL, IV Push, Every 6 hours Melatonin 3 mg Tablet (Melatonin Tablet) ??3 mg, By Mouth, Daily at bedtime NaCl 0.9% Flush 3ml (NaCL 0.9% Flush) ??3 mL, IV Push, Every 8 hours Polyethylene Glycol 17 Gm Powder (MiraLax Powder) ??17 Gm 1 pack/packet, By Mouth, Daily Senna 8.6 mg / Docusate 50 mg tablet (Docusate/Senna Tablet) ??1 tablet, By Mouth, 2 times a day Simethicone 80 mg Chewable Tablet (Simethicone Tablet) ??80 mg, Chew, 3 times a day ? Results Recent Labs BLOOD COUNT & DIFF WBC 13.8 k/mm3 (High)?? 10/28/2022 05:13 RBC 4.04 m/mm3 (Low)?? 10/28/2022 05:13 Hgb 12.3 Gm/dL ()?? 10/28/2022 05:13 Hct 38.3 % ()?? 10/28/2022 05:13 MCV 94.8 femtoliters ()?? 10/28/2022 05:13 MCH 30.4 pg ()?? 10/28/2022 05:13 MCHC 32.1 g/dL (Low)?? 10/28/2022 05:13 Platelet Count 321 k/mm3 ()?? 10/28/2022 05:13 RDW-SD 48.7 femtoliters (High)?? 10/28/2022 05:13 MPV 9.8 femtoliters ()?? 10/28/2022 05:13 Nucleated RBC (Automated) 0.0 #/100 WBC'S ()?? 10/28/2022 05:13 Abs. NRBC 0.0 k/mm3 ()?? 10/28/2022 05:13 ?? CARDIAC High Sensitivity Troponin (HSTnT) 24 ng/L (High)?? 10/27/2022 23:21 ?? CHEM GENERAL Sodium 138 mmol/L ()?? 10/27/2022 23:21 Potassium 3.8 mmol/L ()?? 10/27/2022 23:21 Chloride 105 mmol/L ()?? 10/27/2022 23:21 Bicarbonate Level 22 mmol/L ()?? 10/27/2022 23:21 Anion Gap 11 ()?? 10/27/2022 23:21 Glucose Level 93 mg/dL ()?? 10/27/2022 23:21 Glucose, POC 81 mg/dL ()?? 10/28/2022 11:05 Hemoglobin A1C (Monitoring) 5.8 % (High)?? 10/28/2022 05:13 BUN 14 mg/dL ()?? 10/27/2022 23:21 Creatinine-Blood 1.0 mg/dL ()?? 10/27/2022 23:21 Estimated GFR Creatinine 72 ML/MIN/1.73 M2 ()?? 10/27/2022 23:21 Calcium 9.7 mg/dL ()?? 10/27/2022 23:21 Protein, Total 6.9 Gm/dL ()?? 10/27/2022 23:21 Albumin 3.5 Gm/dL ()?? 10/27/2022 23:21 AG Ratio 1.0 ()?? 10/27/2022 23:21 Alkaline Phosphatase 78 units/L ()?? 10/27/2022 23:21 AST (SGOT) 15 units/L ()?? 10/27/2022 23:21 ALT (SGPT) 13 units/L ()?? 10/27/2022 23:21 Bilirubin, Total 0.2 mg/dL ()?? 10/27/2022 23:21 Estimated Average Glucose 117 mg/dL ()?? 10/27/2022 23:21 ?? COAG INR 1.1 ()?? 10/27/2022 23:21 Protime (PT) 11.4 seconds ()?? 10/27/2022 23:21 APTT 83.3 seconds (High)?? 10/28/2022 05:13 ?? LIPID STUDIES Cholesterol 178 mg/dL ()?? 10/27/2022 23:21 Triglycerides 144 mg/dL ()?? 10/27/2022 23:21 HDL Cholesterol 41 mg/dL ()?? 10/27/2022 23:21 LDL Cholesterol 108 mg/dL ()?? 10/27/2022 23:21 Non HDL Cholesterol 137 mg/dL ()?? 10/27/2022 23:21 ?? VIROLOGY COVID-19 PCR Specimen Source NASAL ()?? 10/27/2022 22:00 COVID-19 PCR Result NEGATIVE ()?? 10/27/2022 22:00 ? Assessment/Plan ?? 47-year-old Nigerian-speaking female past medical history of CAD s/p PCI with stent placement this past fall, morbid obesity, hypertension, hyperlipidemia, current tobacco dependence with 1 pack/day smoking history, txe-slmlryk-ckpouxlke type 2 diabetes,??asthma, chronic pain,??depression, history of renal stones, migraines, and PTSD, who developed chest discomfort with radiating left shoulder/arm/back pain while cooking on the evening of 10/27 found to have an NSTEMI, transferred to [facility] from for cardiac catheterization. ?? #NSTEMI #CAD s/p PCI #Hypertension #Hyperlipidemia #Tobacco dependence Presented with chest pain that radiated to L arm and back; very similar presentation to prior ACS event last fall. Echo on 10/25 with EF of 68%, moderately increased LV wall thickness, no obvious valvular pathology. EKG nonacute. Chest x-ray with no significant abnormality Troponin peak unclear, does not??appear to be significantly elevated but only one obtained. Lipid panel obtained on admission, LDL 108. A1c 5.7. ?? Started on heparin ggt overnight. Cardiology consulted with plan for cardiac cath this AM. S/p cath: Prior LAD stent patent. Unchanged coronary angiogram otherwise.? PLAN: -OK by cardiology to stop heparin ggt -Start Imdur 30mg PO QD -Light hydration overnight -Continue home ASA, Brilinta, Metoprolol, Lisinopril -Continue Atorvastatin 80mg PO qPM; on Ezetimibe at home, not on formulary -As needed EKG for chest pain -Continue cardiac telemetry monitoring ?? #Type 2 diabetes mellitus?? A1c 5.7. On Metformin 500mg PO XR??and Semaglutide 0.25mg weekly at home. ?? PLAN: -HOLD home Metformin and Semaglutide while admitted -POC glucose TID before meals and at bedtime -Continue ISS? CHRONIC/STABLE MEDICAL CONDITIONS: #Depression, PTSD: Continue home Mirtazapine 7.5mg PO qPM #Migraines: Continue home Topiramate 50mg PO BID #Chronic pain: Continue home??Tramadol 50 mg every 8 hours as needed and Tylenol as needed, and home Baclofen 10mg PO TID PRN??for back spasms #Asthma: Continue PRN Albuterol as needed and home Fluticasone nasal spray #GERD: On Omeprazole 20mg PO QD at??home- not on formulary, will give Pantoprazole while admitted ? QUALITY MEASURES: Code Status: FULL DVT ppx: Lovenox subq daily now that Heparin ggt has been d/c'd Diet:??Cardiac AM??labs: CBC, BMP,??Mg, Dispo: Home likely tomorrow ? Patient reviewed with supervising??attending Dr. Barrios. ?? Nedra Bray, DO Internal Medicine, PGY-1 Pager# [phone] * Sophie PICHARDO, Eduardo N: PERFORM Event Display: Progress Note Hospital Authored Date: Attending Attestation: I have??seen and evaluated??DEBBIE MAJOR, on 10/28/22. ??I have??reviewed the patient???s medical history, findings on examination, diagnosis, and treatment. I have discussedthe case and its management with the resident and agree with the findings and plan as documented inthe resident???s note.? _ ? Deprecated Cardiac rehabilitation treatment plan Progress note and attainment of goals (narrative) * Shannan Romo: PERFORM, SIGN, VERIFY Event Display: Cardiac Rehab Note Authored Date: [id number] Patient: DEBBIE MAJOR Age: 47 years Sex: Female : 1975 Associated Diagnoses: None Author: Shannan Romo Diagnosis Cardiac Rehab Diagnosis: NSTEMI. Pre-exercise Vitals Vital Signs Comment: Reviewed in [facility]. Pre-exercise Physical Examination Neurologic: alert & oriented. Cardiovascular: heart rate regular. Lungs: Normal I:E. Activity Symptoms with Cardiac Rehab Symptoms: No exertional symptoms. Activity Activity tolerance: Change in activity tolerance Patient is an independent walker w/o sx. in room. Declined walk into [facility]. Compliance problems: Compliance problems: diet, exercise, smoking cessation. . Patient Education Education: Patient alone, Written material included, Post procedure guidelines. Education topic Teachback comprehension 50% Topic: Smoking cessation, Role of exercise, Home activity guidelines/limits. Recommendation and Plan Ambulate: 3-5 times/day. Outpatient follow up recommended: [facility], Facility has been emailed. Cardiac Rehab: Will sign off at this time. Patient Care team information Care Team Personnel Name: Kavya Quinteros Position: [facility] RN Member Role: Primary Care Nurse Name: Manisha Kirkland RN Position: [facility] RN Member Role: Primary Care Nurse Name: Lillian Ferreira RN Position: [facility] RN Member Role: Primary Care Nurse Name: Carmen Bertrand DO Position: [facility] Outreach Member Role: PCP Address: Address: [address] [place] [address]- Care Team Related Persons Name: IMELDA AGUIAR Address: home [address] [place] [address] Name: JULIO JIMENEZ Address: home [place] [id number] Name: TONY GONZALEZ Address: home [address] [place] [address]
--- OUTSIDE RECORDS SUMMARY | 2024-02-13 15:37 | XMS_ITS | Continuity of Care Document ---
Author Organization [facility] Address [address] [place] [address]- Care Team Providers Care Tube Winder Hand Name Role Phone Carmen Bertrand DO Primary Care Physician Encounter [facility] Date(s): 08/19/19 - 08/29/19 [facility] [address] [place] [address]- [facility] Attending Physician: Kristin Correa Admitting Physician: Kristin Correa Referring Physician: Kristin Correa Allergies, Adverse Reactions, Alerts Substance Reaction Severity [...] Active Hirsutism(Confirmed) Active Hyperlipidemia(Confirmed) Active Hypertension(Confirmed) Active English speaking patient(Confirmed) Active Migraine headache(Confirmed) Active Morbid [...] HERNIA VENTRALEX LG CI R - BARD ([id number]) 1 Bard Unknown KATIE:{01}[id number]{17}[id number]{10}DOMENIC 2394 Assigning Authority:FDA
--- OUTSIDE RECORDS SUMMARY | 2024-02-13 15:37 | XMS_ITS | Continuity of Care Document ---
Author Organization [facility] Address [address] [place] [address]- Care Team Providers Care Child Care Education Coordinator Name Role Phone Carmen Bertrand DO Primary Care Physician [phone] [place] [facility] [place] - 05/26/[address] [address] Attending Physician: AdmKristin love Admitting Physician: Admtr, Kristin Referring Physician: Admtr, Ar8 Allergies, Adverse Reactions, Alerts Substance Reaction Severity [...] Active Hirsutism(Confirmed) Active Hyperlipidemia(Confirmed) Active Hypertension(Confirmed) Active Amharic speaking patient(Confirmed) Active Migraine headache(Confirmed) Active Morbid obesity(Confirmed) Active Nephrolithiasis(Confirmed) Active Vital Signs Most recent to oldest [Reference Range]: 1 Height 173.00 cm (03/09/14 1:19 PM) Social History Social History Type Response Smoking Status Current every day sm ashkan; Type: Cigarettes; Tobacco use times per day: PACK A DAY; Started at age: 16; Other: 1 PACK EVERY day; entered on: 05/29/18 Sex Medical Equipment Implanted Date:07/24/18Target Site:Umbilicus Description Quantity MRI Company Model PATCH HERNIA VENTRALEX LG CI R - BARD ([id number]) 1 Bard Unknown KATIE:{01}[id number]{17}[id number]{10}DOMENIC 2396 Assigning Authority:FDA
--- OUTSIDE RECORDS SUMMARY | 2024-02-13 15:37 | XMS_ITS | Continuity of Care Document ---
Author Organization [facility] Address [address] [place] [address]- Care Team Providers Care Rectifying Operator Name Role Phone Carmen Bertrand DO Primary Care Physician [place] [facility] [place] - 05/24/[address] [id number] Discharge Disposition: A-D/C Home Attending Physician: Beth Sky MD Admitting Physician: Xin Collins MD Referring [...] EDT, Compound Start Date: 03/18/16 Status: Ordered amitriptyline 10 mg oral tablet 10 mg, 1, tablet, By Mouth, Daily at bedtime, # 180 tablet, Refills 0, Maintenance, 05/22/22 17:13:00 EDT, Partial fill upon patient request if the prescription is for a schedule II opioid drug. Start Date: 05/22/22 Status: Ordered aspirin 81 mg oral delayed release tablet 81 mg, By Mouth, Daily, # 30 tablet, Refills 1, Tot. Refills 1, Maintenance, 05/24/22 11:56:00 EDT,Route to Pharmacy Electronically, [facility], Partial fill upon patient request if the prescription is for a schedule II opioid drug., 17... Start Date: 05/24/22 Stop Date: 07/23/22 Status: Ordered atorvastatin 80 mg oral tablet 1 tablet = 80 mg, By Mouth, Daily at bedtime, # 30 tablet, 1 Refills, Maintenance, 05/24/22 11:55:00 EDT, Tablet, [facility], Partial fill upon patient request [...] EDT, Tablet Start Date: 06/09/14 Status: Ordered D3 50 mcg (2000 intl units) oral capsule 0 Refills, Maintenance, 05/22/22 17:13:00 EDT, Partial fill upon patient request if the prescription is for a schedule II opioid drug. Start Date: 05/22/22 Status: Ordered Flomax 0.4 mg oral capsule 0.4 mg, 1, capsule, By Mouth, Daily, follow up with urology for instruction/refills, # 30 capsule, Refills 0, Tot. Refills 0, Maintenance, 05/24/22 11:58:00 EDT, Route to Pharmacy Electronically, [facility], Partial fill upon patient req... Start Date: 05/24/22 Stop Date: 06/23/22 Status: Ordered fluticasone 50 mcg/inh nasal spray 2 sprays, Nares, Both, Daily in AM, 0 Refills, Maintenance, 05/22/22 17:10:00 EDT, [place], Partial fill upon patient request if the prescription is for a schedule II opioid drug. Start Date: 05/22/22 Status: Ordered lisinopril 20 mg oral tablet 20 mg, Tablet, By Mouth, 05/24/22 9:00:00 EDT Start Date: 05/24/22 Stop Date: 05/24/22 Status: Completed lisinopril 20 mg oral tablet [...] 05/24/22 11:57:00 EDT, Route to Pharmacy Electronically, [facility], Partial fill upon patient request if the prescription is for a schedule II opioi... Start Date: 05/24/22 Stop Date: 07/23/22 Status: Ordered metoprolol 50 mg oral tablet, extended release 50 mg, XL Tablet, By Mouth, 05/24/22 9:00:00 EDT Start Date: 05/24/22 Stop Date: 05/24/22 Status: Completed omeprazole 20 mg oral enteric coated capsule 1 capsule = 20 mg, By Mouth, Daily, # 30 capsule, 0 Refills, Maintenance, 05/22/22 17:11:00 EDT, ECCapsule, Partial fill upon patient request if the prescription is for a schedule II opioid drug. Start Date: 05/22/22 Status: Ordered PARoxetine 20 mg oral tablet 20 mg, 1, tablet, By Mouth, Daily at bedtime, # 30 tablet, Refills 0, Maintenance, 05/22/22 17:11:00 EDT, Partial fill upon patient request if the prescription is for a schedule II opioid drug. Start Date: 05/22/22 Status: Ordered SEROquel 100 mg oral tablet 50 mg, 0.5, tablet, By Mouth, 2 times a day, Refills 0, Maintenance, 03/18/16 9:34:26 EDT Start Date: 03/18/16 Status: Ordered spironolactone 100 mg oral tablet TAKE 1 TABLET BY MOUTH TWICE DAILY Start Date: 05/22/22 Status: Ordered ticagrelor 90 mg oral tablet 1 tablet = 90 mg, By Mouth, 2 times a day, # 60 tablet, 11 Refills, Maintenance, 05/24/22 11:58:00 EDT, Tablet, [facility] 3, Partial fill upon patient request [...] Active Hyperlipidemia Confirmed Active Hypertension Confirmed Active Indonesian speaking patient Confirmed Active Migraine headache Confirmed Active Morbid obesity Confirmed Active Nephrolithiasis Confirmed Active Severe obesity Confirmed Active Vital Signs Most recent to oldest [Reference Range]: 1 2 3 Height 173 cm (05/24/22 7:29 AM) 173 cm (05/24/22 4:24 AM) 173 cm (05/23/22 7:44 PM) Weight 176.3 kg (05/24/22 4:24 AM) 177.5 kg (05/23/22 5:00 PM) 177.5 kg (05/23/22 3:16 AM) Oxygen Saturation [94-100 %] 98 % (05/24/22 7:29 AM) 100 % (05/24/22 4:24 AM) 97 % (05/24/22 4:00 AM) Pulse Rate [55-90 bpm] 62 bpm (05/24/22 9:53 AM) 57 bpm (05/24/22 7:29 AM) 50 bpm *L* (05/24/22 4:24 AM) Body Mass Index [18.5-24.99 kg/m2] 58.91 kg/m2 *>HHI* (05/24/22 4:24 AM) 59.81 kg/m2 *>HHI* (05/22/22 3:50 PM) Blood Pressure [90-138/55-84 mm Hg] 149/70mm Hg *H* (05/24/22 9:53 AM) 149/70mm Hg *H* (05/24/22 9:50 AM) 149/70mm Hg *H* (05/24/22 7:29 AM) Respiratory Rate [16-30 br/min] 18 br/min (05/24/22 7:29 AM) 20 br/min (05/24/22 4:24 AM) 16 br/min (05/24/22 4:00 AM) Temperature [96.8-100.4 DegF] 97.1 DegF (05/24/22 7:29 AM) 97.3 DegF (05/24/22 4:24 AM) 97.8 DegF (05/24/22 4:00 AM) Mode of Delivery (Oxygen) Room air (05/24/22 7:29 AM) Room air (05/24/22 4:24 AM) Room air (05/24/22 3:00 AM) Blood pressure sites Arm, left (05/24/22 7:29 AM) Arm, left (05/24/22 4:24 AM) Arm, left (05/24/22 3:00 AM) Temperature Route Temporal (05/24/22 7:29 AM) Temporal (05/24/22 4:24 AM) Oral (05/24/22 4:00 AM) Dry Weight 179.8 kg (05/22/22 3:50 PM) 179.8 kg (05/22/22 3:19 PM) Weight Obtained Via Bed scale (05/24/22 4:24 AM) Bed scale (05/23/22 2:04 AM) Social History Social History Type Response Smoking Status Current every day eduard luther; Type: Cigarettes; Tobacco use times per day: PACK A DAY; Started at age: 16; Other: 1 PACK EVERY day; entered on: 05/29/18 Sex Implantable Device List Procedure Provider Procedure Date Device Type Site Repair Hernia Umbilical Open Syeda Escobedo MD 07/24/18 Unknown Umbilicus Device Identifier Serial Number Lot or Batch Number Manufacturing Date Expiration Date Distinct Identification Code MRI Safety Implantable Status Assigning Authority [id number] 496 Unknown [id number] Unknown 11/12/18 Unknown Unknown Active GS1 Patient Care team information Personnel Name: Carmen Bertrand DO Address: Address: [address] [place] [address]
--- OUTSIDE RECORDS SUMMARY | 2024-02-13 15:37 | XMS_ITS | Continuity of Care Document ---
Author Organization [facility] Address [address] [place] [address]- Care Team Providers Care Mid Wife Name Role Phone Carmen Bertrand DO Primary Care Physician [facility]counter [id number] Date(s): 11/03/19 - 11/13/19 [facility] [address] [place] [address] [facility] Attending Physician: Kristin Correa Admitting Physician: Kristin [...] Active Hirsutism(Confirmed) Active Hyperlipidemia(Confirmed) Active Hypertension(Confirmed) Active Serbian speaking patient(Confirmed) Active Migraine headache(Confirmed) Active Morbid [...] HERNIA VENTRALEX LG CI R - BARD ([id number]) 1 Bard Unknown KATIE:{01}[id number]{17}[id number]{10}DOMENIC 2394 Assigning Authority:FDA
--- OUTSIDE RECORDS SUMMARY | 2024-02-13 15:38 | XMS_ITS | Continuity of Care Document ---
Author Organization [facility] Address [address] [place] [address]- Care Team Providers Care Centrifugal Supervisor Name Role Phone Carmen Bertrand DO Primary Care Physician [phone] [id number] Date(s): 01/24/20 - 02/23/[facility] [address] [place] [address] [facility] Attending Physician: Kristin Correa Admitting Physician: Kristin [...] Active Hirsutism(Confirmed) Active Hyperlipidemia(Confirmed) Active Hypertension(Confirmed) Active Czech speaking patient(Confirmed) Active Migraine headache(Confirmed) Active Morbid [...] HERNIA VENTRALEX LG CI R - BARD ([id number]) 1 Bard Unknown KATIE:{01}[id number]{17}[id number]{10}DOMENIC 2394 Assigning Authority:FDA
--- OUTSIDE RECORDS SUMMARY | 2024-02-13 15:38 | XMS_ITS | Continuity of Care Document ---
Author Organization [facility] Address [address] [place] [address]- Care Team Providers Care Visual Training Aide Name Role Phone Carmen Bertrand DO Primary Care Physician [phone] Encounter [facility] Date(s): 12/16/22 - 01/15/23 [facility] [address], [place] [address] Allergies, Adverse Reactions, Alerts Substance Reaction Severity [...] Maintenance, 05/24/22 11:56:00 EDT,Route to Pharmacy Electronically, [facility], Partial fill upon patient request if the prescription is for a schedule II opioid drug., 17... Start Date: 05/24/22 Stop Date: 07/23/22 Status: Ordered atorvastatin 80 mg oral tablet 1 tablet = 80 mg, By Mouth, Daily at bedtime, # 30 tablet, 1 Refills, Maintenance, 05/24/22 11:55:00 EDT, Tablet, [facility], Partial fill upon patient request [...] opioid drug. Start Date: 10/28/22 Status: Ordered D3 50 mcg (2000 intl [...] AM, 0 Refills, Maintenance, 05/22/22 17:10:00 EDT, [place], Partial fill upon patient request if the prescription is for a schedule II opioid drug. Start Date: 05/22/22 Status: Ordered isosorbide mononitrate 30 mg oral tablet, extended release 1 tablet = 30 mg, By Mouth, Daily, # 30 tablet, 1 Refills, Maintenance, 10/29/22 8:36:00 EDT, ER Tablet, [facility], Partial fill upon patient request if the prescription is for aschedule II opioid drug., 168, cm, 10/29/22 8:15:00... Start Date: 10/29/22 Status: Ordered lisinopril 20 mg oral tablet 30 mg, [...] 05/24/22 11:57:00 EDT, Route to Pharmacy Electronically, [facility], Partial fill upon patient request if the prescription is for a schedule II opioi... Start Date: 05/24/22 Stop Date: 07/23/22 Status: Ordered mirtazapine 7.5 mg oral tablet 1 tablet [...] 11 Refills, Maintenance, 05/24/22 11:58:00 EDT, [facility], Partial fill upon patient request if [...] Active Hyperlipidemia Confirmed Active Hypertension Confirmed Active Dutch speaking patient Confirmed Active Migraine headache Confirmed Active Morbid obesity Confirmed Active Nephrolithiasis Confirmed Active Severe obesity Confirmed Active Social History Social History Type Response [...] Code MRI Safety Implantable Status Assigning Authority [id number] 496 Unknown [id number] Unknown 11/12/18 Unknown Unknown Active GS1 Patient Care team information Care Team Personnel Name: Kavya Quinteros Position: S RN Member Role: Primary Care Nurse Name: Manisha Kirkland RN Position: S RN Member Role: Primary Care Nurse Name: Lillian Ferreira RN Position: S RN Member Role: Primary Care Nurse Name: Carmen Bertrand DO Position: [facility] Outreach Member Role: PCP Address: Address: [address] [place] [address]- [place] Care Team Related Persons Name: IMELDA AGUIAR Address: home [address] [place] [address] Name: JULIO JIMENEZ Address: home [place] [id number] Name: TONY GONZALEZ Address: home [address] [place] [address]
--- OUTSIDE RECORDS SUMMARY | 2024-02-13 15:38 | XMS_ITS | Continuity of Care Document ---
Author Organization [facility] ter Address [address] [place] [id number]- Care Team Providers Care Photogrammetric Stereo Compiler Name Role Phone Carmen Bertrand DO Primary Care Physician [phone] [place] [facility] [place]s): 06/28/21 - 06/28/[address] [id number] Discharge Disposition: A-D/C Home Attending Physician: Adenike Heath MD Admitting Physician: Adenike Heath MD Referring Physician: Adenike Heath MD Allergies, Adverse Reactions, Alerts Substance Reaction [...] muscle spasm, # 30 tablet, 0 Refills,Maintenance, 10/23/14 11:53:36, Tablet Start Date: 06/09/14 Status: Ordered [...] 03/18/16 9:27:18 Start Date: 03/18/16 Status: Ordered OxyCODONE IR Tablet 5 mg, Tablet, By Mouth, Every 4 hours, in PACU ONLY, if patient can tolerate PO, PRN for Pain , Mild, Routine, 06/28/21 16:02:00 EST Start Date: 06/28/21 Stop Date: 06/29/21 Status: Discontinued SEROquel 100 mg oral tablet 100 mg, [...] Active Hirsutism(Confirmed) Active Hyperlipidemia(Confirmed) Active Hypertension(Confirmed) Active Faroese speaking patient(Confirmed) Active Migraine headache(Confirmed) Active Morbid obesity(Confirmed) Active Nephrolithiasis(Confirmed) Active Vital Signs Most recent to oldest [Reference Range]: 1 2 3 Weight 172.7 kg (06/28/21 1:39 PM) Oxygen Saturation [94-100 %] 95 % (06/28/21 5:15 PM) 95 % (06/28/21 5:00 PM) 95 % (06/28/21 4:45 PM) Pulse Rate [55-90 bpm] 65 bpm (06/28/21 1:39 PM) Blood Pressure [90-138/55-84 mm Hg] 111/55mm Hg (06/28/21 5:15 PM) 111/55mm Hg (06/28/21 5:00 PM) 102/58mm Hg (06/28/21 4:45 PM) Respiratory Rate [16-30 br/min] 19 br/min (06/28/21 5:15 PM) 18 br/min (06/28/21 5:00 PM) 18 br/min (06/28/21 4:59 PM) Temperature [96.8-100.4 DegF] 97 DegF (06/28/21 4:30 PM) 97.2 DegF (06/28/21 1:39 PM) Liters per Minute 2 L/min (06/28/21 4:45 PM) 5 L/min (06/28/21 4:30 PM) Mode of Delivery (Oxygen) Nasal cannula (06/28/21 5:00 PM) Nasal cannula (06/28/21 4:45 PM) Simple face mask (06/28/21 4:30 PM) Blood pressure sites Arm, left (06/28/21 1:39 PM) Temperature Route Temporal (06/28/21 4:30 PM) Temporal (06/28/21 1:39 PM) Dry Weight 172.7 kg (06/28/21 1:39 PM) Weight Obtained Via Patient/family state d (06/28/21 1:39 PM) Dry Weight Obtained Via Patient/family s tated (06/28/21 1:39 PM) Social History Social History Type Response Smoking Status Current every day eduard luther; Type: Cigarettes; Tobacco use times per day: PACK A DAY; Started at age: 16; Other: 1 PACK EVERY day; entered on: 05/29/18 Sex Medical Equipment Implanted Date:07/24/18Target Site:[employer] Description Quantity MRI Company Model PATCH HERNIA VENTRALEX LG CI R - BARD ([id number]) 1 Bard Unknown KATIE:{01}[id number]{10}[facility]ITAL[facility] [id number] Assigning Authority:FDA
--- OUTSIDE RECORDS SUMMARY | 2024-02-13 15:38 | XMS_ITS | Continuity of Care Document ---
Author Organization [facility] Address [address] [place] [id number]- Care Team Providers Care Customer Service Teller Name Role Phone Carmen Bertrand DO Primary Care Physician [id number] - [facility] [address] [place] [id number] [facility] Attending Physician: Akanksha Herrera MD Admitting Physician: Akanksha Herrera MD Referring Physician: Carmen Bertrand DO Allergies, [...] Active Hirsutism(Confirmed) Active Hyperlipidemia(Confirmed) Active Hypertension(Confirmed) Active Cypriot speaking patient(Confirmed) Active Migraine headache(Confirmed) Active Morbid [...] HERNIA VENTRALEX LG CI R - BARD ([id number]) 1 Bard Unknown KATIE:{01}[id number]{10}[employer] 2394 Assigning Authority:FDA
--- NOTE | 2024-02-13 17:22 | PC.NURSE ---
patient very upset about still waiting to have surgery, texted urologist and her case is second; they just took someone in now and she's next; told al this to the patient through manager float she does want to leave but will wait for little bit
--- NOTE | 2024-02-13 17:30 | P.CONAN_ITS ---
HPI - Anesthesia Eval Consult details Narrative: Right ureter obstruction PMFSH Active Problems Active Problems: All Active Problems Hydronephrosis with urinary obstruction due to ureteral calculus (Acute) Abnormal nuclear stress test (Acute) Chronic anticoagulation (Acute) Nausea and vomiting (Acute) Dysphagia (Acute) Gastroparesis (Acute) Morbid obesity (Acute) Hidradenitis suppurativa (Acute) Chest discomfort (Acute) S/P cardiac catheterization (Acute) Non-STEMI (non-ST elevated myocardial infarction) (Acute) Diabetes mellitus (Acute) Osteoarthritis of left knee (Acute) Osteoarthritis of right knee (Acute) CAD (coronary artery disease) (Acute) Encounter for screening colonoscopy (Acute) Hydronephrosis (Acute) Right kidney stone (Acute) Hyperlipidemia (Acute) HTN (hypertension) (Acute) Calculus of proximal right ureter (Acute) Ureterolithiasis (Acute) Nephrolithiasis (Acute) Chronic UTI (urinary tract infection) (Acute) Leukocytosis (leucocytosis) (Acute) Knee pain (Acute) Osteoarthritis of knees, bilateral (Acute) Morbid obesity (Acute) Left breast mass (Acute) Kidney stone (Acute) Past Medical History Medical History Morbid obesity Hidradenitis suppurativa CAD (coronary artery disease) Subsequent non-ST elevation myocardial infarction (NSTEMI) within 4 weeks of initial infarction Non-ST elevation MN (NSTEMI) YAMILETH on CPAP Hyperlipidemia PTSD (post-traumatic stress disorder) Fatty liver Smoker Depression Obesity Leukocytosis Frequent UTI Asthma Mass of throat Chronic pain Kidney stone Migraine HTN (hypertension) Family History Family History Father Hypertension Mother Hypertension Osteoporosis Hx of bilateral cataract extraction Paternal Grandmother Diabetes Sister Asthma Maternal Uncle Throat cancer Maternal Aunt Ovarian cancer Breast cancer Family history of problems with anesthesia: No Surgical History Surgical History Stented coronary artery History of heart artery stent History of lumpectomy of left breast (10/22/21) History of lithotripsy History of endometrial ablation Hx of colonoscopy History of breast lump/mass excision History of tonsillectomy H/O: hysterectomy History of Problems with Anesthesia: No Social History Social History Household Members: Children Housing: Apartment Are you a primary acute care physician to a significant other at home: No Do you presently have visiting nurse or other home services: Yes (daughter is her career transition specialist) Alcohol intake: never Comment: pt refusing alarms Patient Tobacco Use Status: Current everyday Tobacco user Tobacco use type: Cigarette Cigarette Packs Per Day: 1 Years Smoked: 35 +/- Second Hand Smoke Exposure: No Advance Directives Date on File: 10/28/22 service: No Current occupational status: unemployed Meds Allergies Allergy/AdvReac Type Severity Reaction Status Date / Time penicillin G [PENICILLIN G] Allergy Severe DIFFICULTY Verified 02/12/24 20:20 BREATHING semaglutide [From Ozempic] AdvReac Severe Stomach Verified 02/12/24 20:20 Upset Active Medications: Current Medications Sodium Chloride (Ns) 1,000 mls @ 100 mls/hr IVCONT .Q10H ANDREW Last Admin: 02/13/24 09:40 Dose: 100 mls/hr Morphine Sulfate (Morphine Sulfate 4 Mg/Ml Cartridge) 4 mg IVPUSH Q3H PRN; Protocol PRN Reason: Pain, Moderate(Pain Scale 4-6) Ondansetron HCl (Ondansetron Hcl 4 Mg/2 Ml Vial) 4 mg IVPUSH Q8H PRN PRN Reason: Nausea and Vomiting Home Medications ?Medication ?Instructions ?Recorded ?Confirmed ?Last Taken ?Type baclofen 10 mg tablet 10 mg PO TID PRN muscle spasm 11/03/20 02/13/24 Unknown History albuterol sulfate 90 mcg/actuation 2 puff PO Q4-6H PRN Wheezing 12/01/20 02/13/24 Unknown History aerosol inhaler (Ventolin HFA) atorvastatin 80 mg tablet (Lipitor) 80 mg PO BEDTIME 12/01/20 02/13/24 05/20/22 History fluticasone propionate 50 2 spray intranasal DAILY 12/01/20 02/13/24 05/21/22 History mcg/actuation nasal spray,suspension blood pressure test kit-large #1 ea 12/19/20 02/12/24 Unknown History topiramate 50 mg tablet 50 mg PO BID 12/19/20 02/13/24 Unknown History cholecalciferol (vitamin D3) 50 50 mcg PO DAILY 07/02/13/24 05/21/22 History mcg (2,000 unit) capsule lisinopril 30 mg tablet 30 mg PO DAILY 07/01/22 02/13/24 Unknown History metformin 500 mg tablet,extended 500 mg PO QPM 07/01/22 02/13/24 Unknown History release 24 hr metoprolol succinate 50 mg 50 mg PO DAILY 07/01/22 02/13/24 Unknown History tablet,extended release 24 hr tramadol 50 mg tablet 50 mg PO Q8H PRN severe pain 10/24/22 02/13/24 Unknown History capsaicin 0.025 % topical cream 1 appl topical BID PRN mild pain 10/25/22 02/13/24 Unknown History metronidazole 0.75 % topical gel 1 appl topical DAILY PRN Rash 10/25/22 02/13/24 Unknown History albuterol sulfate 2.5 mg/3 mL 2.5 mg inhalation Q4-6H PRN 11/15/22 02/13/24 Unknown History (0.083 %) solution for nebulization Wheezing aspirin 81 mg chewable tablet 1 tab PO DAILY 11/13/23 02/13/24 Unknown History fluticasone propionate 110 inhalation 11/13/23 02/12/24 Unknown History mcg/actuation HFA aerosol inhaler famotidine 40 mg tablet 40 mg PO BEDTIME PRN heartburn 02/13/24 02/13/24 Unknown History ticagrelor 90 mg tablet 90 mg PO BID 02/13/24 02/13/24 Unknown History Exam Height,Weight and Vital Signs: Height 5 ft 8 in Weight 155 kg Last Vital Signs Temp 96.9 F 02/13/24 15:33 Pulse 46 L 02/13/24 15:33 Resp 18 02/13/24 15:33 BP 160/76 H 02/13/24 15:33 Pulse Ox 95 02/13/24 15:33 O2 Del Method Room Air 02/13/24 15:33 Pertinent Lab Results Pertinent Lab Results: Laboratory Tests 02/12/24 20:59 WBC 10.1 RBC 3.90 L Hgb 12.3 Hct 36.4 L MCV 93.3 MCH 31.5 MCHC 33.8 RDW 14.4 Plt Count 290 MPV 10.1 Immature Gran % (Auto) 0.3 Neut % (Auto) 58.7 Lymph % (Auto) 28.6 [place] % (Auto) 9.4 Eos % (Auto) 2.4 Baso % (Auto) 0.6 Lymph # (Auto) 2.9 [place] # (Auto) 1.0 Eos # (Auto) 0.2 Baso # (Auto) 0.1 Abs Immat Gran (auto) 0.03 Absolute Neuts (auto) 5.9 Absolute Nucleated RBC 0.000 Nucleated RBC % (auto) 0.0 Sodium 141 Potassium 3.7 Chloride 113 H Carbon Dioxide 20 L Anion Gap 12 BUN 13 Creatinine 0.90 Estim Creat Clear Calc 122.2 Estimated GFR > 60 Random Glucose 124 H Calcium 9.0 D Total Bilirubin 0.4 Direct Bilirubin 0.2 AST 21 ALT 21 Alkaline Phosphatase 90 Total Protein 6.8 Albumin 3.5 Urine Color Yellow Urine Appearance Clear Urine pH 6.0 Ur Specific [place] 1.020 Urine Protein Negative Urine Glucose (UA) Negative Urine Ketones Trace Urine Blood Moderate (2+) H Urine Nitrite Negative Ur Leukocyte Esterase Trace H Urine RBC >20 H Urine WBC 0-5 Ur Squamous Epith Cells 0-2 Urine Bacteria None Seen Hyaline Casts 0-2 Airway Mallampati Class: II TM Dist: >3cm Neck ROM: Full Denture: Upper and Lower Loose/Missing/Broken Teeth: No Heart: RRR Lungs: CTA Assessment and Plan Final Anesthetic Review Family History of Problems with Anesthesia: No History of Problems with Anesthesia: No ASA Class: III Final Preanesthetic Review: No Changes in Pt Med Stat, Meds/Allgs Chart Reviewed, Consent Obtained/Reviewed and Anes Risks/Benef Reviewed Patient Risk: High Procedure Risk: Intermediate Anesthetic Plan Anesthetic Plan: GA Disposition: Standard PACU
--- NOTE | 2024-02-13 18:42 | P.HPSUR_ITS ---
Pre-Procedural Eval Section A - 24 Hr Update-Section A only Date of Service: 02/13/24 The patient is an INPATIENT: No Changes since office visit: No Cold of Flu in the past 2 weeks, No New Medical Problems, No Changes in Medication and No Patient answered all questions The patient has been examined within 24 hours of the surgical procedure. The History & Physical has been completed within 30 days and I have reviewed it.: Yes Section B - Complete if H&P > 30 days Chief Complaint: Right proximal ureteric stone obstruction Details of Present Illness: Presentation through emergency room with right flank pain Relevant Family History (Specify if Yes): No Relevant Social History: None Present Medications: see Short Stay Collaborative assessment Medical History: Significant History History of Previous Operations: Relevant previous surgery/procedure and date(s) Allergies: Allergies Allergy/AdvReac Type Severity Reaction Status Date / Time penicillin G [PENICILLIN G] Allergy Severe DIFFICULTY Verified 02/12/24 20:20 BREATHING semaglutide [From Ozempic] AdvReac Severe Stomach Verified 02/12/24 20:20 Upset Review of Systems Sugical H&P ROS: Negative: Constitution, Cardiovascular, Respiratory, Neurological, Psychiatric, Hem-Onc, Allergic/Immunologic, Gastrointestinal, Genitourinary, Musculoskeletal, Integumentary, Endocrine and Eyes/Ears/Nose /Throat Exam Surgical H&P Exam: Normal: HEENT, Normal: Heart, Normal: Lungs, Normal: Extremities, Normal: Abdomen, Normal: Skin and Normal: Neurological Plan Diagnosis/Plan: Unchanged (Cystoscopy, right retrograde, right ureteroscopy with laser lithotripsy) I have reviewed the history and physical and performed a pertinent physical examination on my patient. No changes have occurred unless specified. Time Spent With Patient Time: Total time managing care of this patient today ____ minutes.
--- NOTE | 2024-02-13 19:42 | W.PM.OPN ---
Operative Note Operative Note Date of Service: 02/13/24 Narrative: PreOperative Diagnosis: Right proximal ureteric stone Post Operative Diagnosis: Right proximal ureteric stone Procedure: Cystoscopy, right retrograde, right stent placement Surgeon: Dr Mervin Bryan Anesthesia: Sedation Indications for procedure: Presentation through ER with persistent pain right proximal ureteric stone on imaging Procedure: After informed consent was verified the patient was brought to the operating room and placed in a supine position. Anesthesia was administered per protocol. The patient was placed in modified dorsal lithotomy position and prepped and draped in a sterile fashion. A safety pause time-out was performed. Laterality of procedure and antibiotics were confirmed, appropriate imaging was available A 22 Hebrew cystoscope was introduced per urethra. No abnormality was noted of urethra or bladder. Both ureteric orifices were seen in a normal position. The right ureter was cannulated with an open ended catheter and a retrograde examination was performed. Filling defect right proximal ureter . A Sensor guidewire was placed under fluoroscopy and a good coil was seen within the renal pelvis. A 6 Hebrew by 26 double J stent was advanced over the wire and up to the level of the renal pelvis under fluoroscopic and direct visualization. The stent was seen with appropriate coil within the renal pelvis and in the bladder after deployment. The patient tolerated the procedure well and was transferred in a stable condition to the recovery area. Will need definitive procedure Pathology: Drains: As above
[2024-02-13] MEDS: Phenazopyridine HCL 100 MG TABLET PO (20:11)
== END 2024-02-13 20:30 | disposition home or self-care (01) ==
LOC: HO.ED 02-13 07:33 → HO.SSS 02-13 13:22 → HO.S3 02-13 13:50 → HO.ED 02-13 16:23 → HO.SSS 02-13 18:03
PROVIDERS: Physician Assistant Medical; Emergency Provider Internal Medicine; PCP Family Medicine; Visit Provider Urology
PROC: (CPT 52332; principal; 2024-02-13 17:30)
DX: N13.2 Hydronephrosis with renal and ureteral calculous obstruction (principal); E11.9 Type 2 diabetes mellitus without complications; I10 Essential (primary) hypertension; E78.5 Hyperlipidemia, unspecified; J45.909 Unspecified asthma, uncomplicated; Z87.440 Personal history of urinary (tract) infections; Z87.442 Personal history of urinary calculi; Z79.02 Long term (current) use of antithrombotics/antiplatelets; Z79.899 Other long term (current) drug therapy; Z79.82 Long term (current) use of aspirin
CPT/HCPCS: 52332; 36415; 74176; 80048; 80076; 81001; 85025; 96361; 96374; 96375; 99285; C1758; C1769; C2617; J1100; J1885; J1956; J2270; J2405; J2704; J3010; Q9967

== ENCOUNTER → 2024-02-13 08:32 | Outpatient (BNV) | payer OTHER, SELFPAY ==
[2022-10-22 13:00] VITALS: BP 128/72; BP 148/88; BMI 63.7
[2023-01-30 14:13] VITALS: BP 140/60
== END ==
PROVIDERS: Emergency Provider Internal Medicine; PCP Family Medicine; Visit Provider Urology
DX: N13.2 Hydronephrosis with renal and ureteral calculous obstruction (principal)
CPT/HCPCS: 52332; 74420; 99284

== ENCOUNTER 2024-02-27 09:15 | Outpatient (AMB) | payer OTHER, SELFPAY ==
[2022-10-22 13:00] VITALS: BP 128/72; BP 148/88; BMI 63.7
[2023-01-30 14:13] VITALS: BP 140/60
--- NOTE | 2024-02-27 09:08 | MHC.OFFVIS ---
Intake Visit Reasons: Discuss next procedure Intake Note: Patient is present for discuss next procedure Urology Medication:tamsulosin,vitamin B6 Antibiotic Allergy:penicillin Blood Thinner:aspirin Cleaning Manager Required: No Allergies penicillin G [PENICILLIN G] Allergy (Severe, Verified 02/27/24 09:11) DIFFICULTY BREATHING semaglutide [From Ozempic] Adverse Reaction (Severe, Verified 02/27/24 09:11) Stomach Upset HPI Comments Details: 02/27/2024--Blaire is a 48-year-old Irish-speaking female, her daughter interprets for her during this visit. The patient had a right ureteral stent placed while an inpatient on 02/13/2024 for right hydronephrosis secondary to obstructing 3.5 mm proximal ureteral stone, s/p right ureteral stent. CT imaging notes bilateral small kidney stones. I have discussed plan for right ureteroscopy laser lithotripsy stent exchange. Review of chart: 10/28/23--Blaire is a pleasant 48 year old Irish speaking patient of Dr. Bertrand. She has a past medical history of asthma, coronary artery disease, chronic pain, depression, fatty liver, hypertension, nephrolithiasis, migraines, non ST-elevation ME, obesity, obstructive sleep apnea on CPAP, PTSD and nicotine dependence. She presents to the office today for follow-up of her nephrolithiasis and recurrent urinary tract infections. In discussion with the patient today she reports to be doing and feeling well via urologically. She does discuss following up with GI for ongoing gastric issues she has been having and has since come off of Ozempic as she feels this was a contributing factor. Recent renal imaging results reviewed with the patient today. Right kidney with 0.5 cm lower pole calculus no hydronephrosis. Left kidney with 0.5 cm mid to lower pole calculus. Mid pole 0.4 left calculus. No hydronephrosis. No change in the renal calculi since prior CT. She otherwise denies hematuria, dysuria, foul smelling urine, changes to urinary stream, flank pain, fever, and or chills. She denies any bothersome urinary issues or concerns at this time. She reports compliance with vitamin B6 and alluprinol as prescribed. She continues to drink plenty of water daily. In office urinalysis results reviewed with the patient today. She denies having had any UTIs since her last office visit here approximately 6 months ago. She otherwise offers no other issues or concerns at this time. [facility] Medical History Morbid obesity Hidradenitis suppurativa CAD (coronary artery disease) Subsequent non-ST elevation myocardial infarction (NSTEMI) within 4 weeks of initial infarction Non-ST elevation ME (NSTEMI) YAMILETH on CPAP Hyperlipidemia PTSD (post-traumatic stress disorder) Fatty liver Smoker Depression Obesity Leukocytosis Frequent UTI Asthma Mass of throat Chronic pain Kidney stone Migraine HTN (hypertension) Surgical History Stented coronary artery History of heart artery stent History of lumpectomy of left breast (10/22/21) History of lithotripsy History of endometrial ablation Hx of colonoscopy History of breast lump/mass excision History of tonsillectomy H/O: hysterectomy Family History Father Hypertension Mother Hypertension Osteoporosis Hx of bilateral cataract extraction Paternal Grandmother Diabetes Sister Asthma Maternal Uncle Throat cancer Maternal Aunt Ovarian cancer Breast cancer Social History (Updated 02/27/24 @ 16:39 by Shakira Flaherty RN) Household Members: Children Housing: Apartment Are you a primary medical care evaluation specialist to a significant other at home: No Do you presently have visiting nurse or other home services: Yes (daughter is FLAME HARDENING MACHINE OPERATOR) Alcohol intake: never Comment: pt refusing alarms Patient Tobacco Use Status: Current everyday Tobacco user Tobacco use type: Cigarette Cigarette Packs Per Day: 0.5 Cigarettes Per Day: 10 Years Smoked: 35 +/- Second Hand Smoke Exposure: No Have you been hit, kicked, punched, or otherwise hurt by someone within the past year? If so, by whom?: No Are you DNR?: No Advance Directives: Yes Advance Directives Information Provided: No Advance Directives on File: Yes Advance Directives Date on File: 10/28/22 Recently lost weight without trying: No Nutrition Risks: Dental problems Poor oral hygiene: Yes (no teeth, preparing for dental implants) service: No Current occupational status: unemployed Review of Systems Const All systems reviewed & are unremarkable except as noted in HPI and below Reports no additional complaints Eyes Reports no additional complaints ENT Reports no additional complaints Card Reports no additional complaints Resp Reports no additional complaints GI Reports no additional complaints Reports as per HPI Musc Reports no additional complaints Skin/Breast Reports system reviewed and no additional complaints, except as documented Neuro Reports no additional complaints Psych Reports no additional complaints Endo Reports no additional complaints Brian/Lymph Reports no additional complaints Aller/Immun Reports no additional complaints Telehealth Telehealth Telehealth [facility] Location of provider rendering services: practice address Location of patient: address on file Patient Identification confirmed using: Name, : Yes Telehealth method: voice only Patient verbally consented to treatment: Yes Patient verbally consented to billing insurance company: Yes Minutes spent on Phone/Video with Pt.: 18 Results Reviewed Results Reviewed: Date of Service: 02/12/24 EXAMINATION: CT ABDOMEN AND PELVIS WITHOUT CONTRAST CLINICAL INFORMATION: Right flank pain. Renal calculi. COMPARISON: CT abdomen pelvis dated 02/06/2024. TECHNIQUE: Multidetector volumetric imaging was performed from the superior aspect of the liver through the pubic symphysis. Sagittal and coronal reformatted images were obtained on the technologist's workstation. This CT examination was performed using dose optimization techniques as appropriate, variously including the following: *Automated exposure control *Adjustment of mA and/or kV according to patient size (this includes techniques or standardized protocols for targeted exams where dose is matched to indication/reason for exam; i.e. extremities or head) *Use of iterative reconstruction technique DLP: 1294 mGy-cm FINDINGS: LUNG BASES: The visualized lung bases are unremarkable. LIVER, GALLBLADDER, AND BILIARY TREE: The liver is normal in size, shape, and attenuation. No focal hepatic lesion or biliary ductal dilatation is present. The gallbladder is unremarkable with no evidence of radiopaque gallstones, gallbladder wall thickening, or obvious pericholecystic inflammatory changes. PANCREAS: Unremarkable. SPLEEN: Unremarkable. ADRENAL GLANDS: Unremarkable. KIDNEYS AND URETERS: Right side: The right kidney is asymmetrically larger than the left and appears somewhat edematous. There is mild right-sided hydronephrosis. The proximal right ureter is dilated to the level of a calculus measuring 3.5 mm. The ureter distal to this calculus is decompressed. The right kidney contains multiple calculi ranging in size from punctate to 2.8 mm. These calculi are too small to get accurate Hounsfield unit values. Left side: There are multiple left renal calculi ranging in size from punctate to 4 mm in size. The 4 mm calculus has an average Hounsfield unit value of 405. There is no left-sided hydronephrosis. No left ureteral calculus. BLADDER: The urinary bladder is decompressed. No urinary bladder calculi are identified. GASTROINTESTINAL TRACT: The small and large bowel are normal in caliber. There is no pericolonic inflammatory stranding. The appendix is nonvisualized. ABDOMINAL WALL: No significant hernia is appreciated. LYMPH NODES: No lymphadenopathy. VASCULAR: No abdominal aortic aneurysm. Minimal atherosclerotic change. PELVIC VISCERA: The uterus is not visualized. There is no adnexal mass. No free fluid within the pelvis. OSSEOUS STRUCTURES: There are degenerative changes of lower lumbar spine. CT/CT abdomen pelvis wo IV con IMPRESSION: The right kidney is asymmetrically larger than the left and appears somewhat edematous. There is mild right-sided hydronephrosis. The proximal right ureter is dilated to the level of a calculus measuring 3.5 mm. The ureter distal to this calculus is decompressed. The right kidney contains multiple calculi ranging in size from punctate to 2.8 mm. These calculi are too small to get accurate Hounsfield unit values. Fleischner guidelines were followed. There are multiple left renal calculi ranging in size from punctate to 4 mm in size. The 4 mm calculus has an average Hounsfield unit value of 405. There is no left-sided hydronephrosis. No left ureteral calculus. Date of Service: 10/07/23 EXAMINATION: US RETROPERITONEAL LIMITED (RENAL ONLY) FINDINGS: RIGHT KIDNEY: 11.5 x 6.4 x 5.6 cm (SAG x AP x TRV). A 0.5 cm lower pole calculus. No hydronephrosis. Renal cortical thickness is normal. Limited visualization. LEFT KIDNEY: 11.5 x 5.2 x 4.6 cm (SAG x AP x TRV). Limited visualization. Renal cortical thickness is normal. Mid to lower pole 0.5 cm calculus. Mid pole 0.4 cm calculus. No hydronephrosis. IMPRESSION: Bilateral nonobstructive renal calculi. No hydronephrosis. Assessment & Plan Assessment & Plan (1) Nephrolithiasis: Comment: Calcium oxalate monohydrate 80% Code(s): N20.0 - Calculus of kidney Category: Medical (2) Chronic UTI (urinary tract infection): Code(s): N39.0 - Urinary tract infection, site not specified Category: Medical (3) Ureteral stent present: Code(s): Z96.0 - Presence of urogenital implants Category: Medical (4) Hydronephrosis: Code(s): N13.30 - Unspecified hydronephrosis Category: Medical (5) Ureterolithiasis: Code(s): N20.1 - Calculus of ureter Category: Medical Plan right ureteroscopy laser lithotripsy stent exchange. Patient Instructions: The patient had an opportunity to ask questions regarding treatment plan. The patient expressed understanding and agreement with the above treatment plan. The patient is aware they should contact our office by phone for worsening of their current condition or the appearance of new symptoms. Compliance is encouraged with any medications and followup testing that is ordered. It is a privilege to be allowed the opportunity to participate in the urologic care of your patient. If you have any questions or concerns regarding treatment for the above conditions please do not hesitate to contact me. The office telephone contact is [phone]. This note is constructed in part using voice recognition software. While every effort has been made to ensure accuracy patient financial services specialist errors may have been included. Yours sincerely, Ricardo Lepe MD Coding Level of Care Code Tele Est Pt Level 4 (12640) Diagnoses Nephrolithiasis N20.0 Chronic UTI (urinary tract infection) N39.0 Ureteral stent present Z96.0 Hydronephrosis N13.30 Ureterolithiasis N20.1
== END 2024-02-27 11:32 | disposition home or self-care (01) ==
LOC: HO.HUSH 09:15
PROVIDERS: PCP Family Medicine; Visit Provider Urology
DX: N20.0 Calculus of kidney (principal); N39.0 Urinary tract infection, site not specified; Z96.0 Presence of urogenital implants; N13.30 Unspecified hydronephrosis; N20.1 Calculus of ureter
CPT/HCPCS: 99442

== ENCOUNTER → 2024-02-27 09:15 | Outpatient (BNVA) | payer OTHER, SELFPAY ==
[2022-10-22 13:00] VITALS: BP 128/72; BP 148/88; BMI 63.7
[2023-01-30 14:13] VITALS: BP 140/60
== END ==
PROVIDERS: PCP Family Medicine; Visit Provider Urology

== ENCOUNTER 2024-03-02 09:02 | Day surgery (SDC) | payer OTHER, SELFPAY ==
[2022-10-22 13:00] VITALS: BP 128/72; BP 148/88; BMI 63.7
[2023-01-30 14:13] VITALS: BP 140/60
[2024-02-27 14:10] VITALS: BMI 51.8
[2024-02-27 16:43] VITALS: BMI 51.8
--- NOTE | 2024-03-01 09:52 | P.CONAN_ITS ---
Documented by User: Shanika Youngblood NP 03/01/24 09:56 HPI - Anesthesia Eval Consult details Narrative: 48yo F for Right Cystoscopy, Ureteroroscopy, Retro, Laser,stent removal BMI 52 s/p cysto, etc 02/13/24 with GA-LMA 5 [place] [facility], CAD s/p stent 2021. On DAPT. 12/2023 cardiac w/u for chest pains. Meds increased with resolution of CP. [facility] Active Problems Active Problems: All Active Problems Ureteral stent present (Acute) Abnormal nuclear stress test (Acute) Chronic anticoagulation (Acute) Nausea and vomiting (Acute) Dysphagia (Acute) Gastroparesis (Acute) Morbid obesity (Acute) Hidradenitis suppurativa (Acute) Chest discomfort (Acute) S/P cardiac catheterization (Acute) Non-STEMI (non-ST elevated myocardial infarction) (Acute) Diabetes mellitus (Acute) Osteoarthritis of left knee (Acute) Osteoarthritis of right knee (Acute) CAD (coronary artery disease) (Acute) Encounter for screening colonoscopy (Acute) Hydronephrosis (Acute) Right kidney stone (Acute) Hyperlipidemia (Acute) HTN (hypertension) (Acute) Calculus of proximal right ureter (Acute) Ureterolithiasis (Acute) Nephrolithiasis (Acute) Chronic UTI (urinary tract infection) (Acute) Leukocytosis (leucocytosis) (Acute) Knee pain (Acute) Osteoarthritis of knees, bilateral (Acute) Morbid obesity (Acute) Left breast mass (Acute) Kidney stone (Acute) Past Medical History Medical History Morbid obesity Hidradenitis suppurativa CAD (coronary artery disease) Subsequent non-ST elevation myocardial infarction (NSTEMI) within 4 weeks of initial infarction Non-ST elevation VA (NSTEMI) YAMILETH on CPAP Hyperlipidemia PTSD (post-traumatic stress disorder) Fatty liver Smoker Depression Obesity Leukocytosis Frequent UTI Asthma Mass of throat Chronic pain Kidney stone Migraine HTN (hypertension) Family History Family History Father Hypertension Mother Hypertension Osteoporosis Hx of bilateral cataract extraction Paternal Grandmother Diabetes Sister Asthma Maternal Uncle Throat cancer Maternal Aunt Ovarian cancer Breast cancer Family history of problems with anesthesia: No Surgical History Surgical History Stented coronary artery History of heart artery stent History of lumpectomy of left breast (10/22/21) History of lithotripsy History of endometrial ablation Hx of colonoscopy History of breast lump/mass excision History of tonsillectomy H/O: hysterectomy History of Problems with Anesthesia: No Social History Social History Household Members: Children Housing: Apartment Are you a primary child care group leader to a significant other at home: No Do you presently have visiting nurse or other home services: Yes (daughter is DRIVER MATERIAL HANDLER) Alcohol intake: never Comment: pt refusing alarms Patient Tobacco Use Status: Current everyday Tobacco user Tobacco use type: Cigarette Cigarette Packs Per Day: 0.5 Cigarettes Per Day: 10 Years Smoked: 35 +/- Second Hand Smoke Exposure: No Have you been hit, kicked, punched, or otherwise hurt by someone within the past year? If so, by whom?: No Are you DNR?: No Advance Directives: No Advance Directives Information Provided: Yes Advance Directives on File: Yes Advance Directives Date on File: 10/28/22 Recently lost weight without trying: No Nutrition Risks: Dental problems Poor oral hygiene: Yes (no teeth, preparing for dental implants) service: No Current occupational status: unemployed Meds Allergies Allergy/AdvReac Type Severity Reaction Status Date / Time penicillin G [PENICILLIN G] Allergy Severe DIFFICULTY Verified 02/27/24 09:11 BREATHING semaglutide [From Ozempic] AdvReac Severe Stomach Verified 02/27/24 09:11 Upset Home Medications ?Medication ?Instructions ?Recorded ?Confirmed ?Last Taken ?Type baclofen 10 mg tablet 10 mg PO TID PRN muscle spasm 11/03/20 02/27/24 Unknown History albuterol sulfate 90 mcg/actuation 2 puff PO Q4-6H PRN Wheezing 12/01/20 02/27/24 Unknown History aerosol inhaler (Ventolin HFA) atorvastatin 80 mg tablet (Lipitor) 80 mg PO BEDTIME 12/01/20 02/27/24 05/20/22 History fluticasone propionate 50 2 spray intranasal DAILY 12/01/20 02/27/24 05/21/22 History mcg/actuation nasal spray,suspension blood pressure test kit-large #1 ea 12/19/20 02/12/24 Unknown History topiramate 50 mg tablet 50 mg PO BID 12/19/20 02/27/24 Unknown History cholecalciferol (vitamin D3) 50 50 mcg PO DAILY 03/13/22 02/27/24 05/21/22 History mcg (2,000 unit) capsule lisinopril 30 mg tablet 30 mg PO DAILY 07/01/22 02/27/24 Unknown History metformin 500 mg tablet,extended 500 mg PO QPM 07/01/22 02/27/24 Unknown History release 24 hr metoprolol succinate 50 mg 50 mg PO DAILY 07/01/22 02/27/24 Unknown History tablet,extended release 24 hr tramadol 50 mg tablet 50 mg PO Q8H PRN severe pain 10/24/22 02/27/24 Unknown History capsaicin 0.025 % topical cream 1 appl topical BID PRN mild pain 10/25/22 02/27/24 Unknown History metronidazole 0.75 % topical gel 1 appl topical DAILY PRN Rash 10/25/22 02/27/24 Unknown History albuterol sulfate 2.5 mg/3 mL 2.5 mg inhalation Q4-6H PRN 11/15/22 02/27/24 Unknown History (0.083 %) solution for nebulization Wheezing aspirin 81 mg chewable tablet 1 tab PO DAILY 11/13/23 02/27/24 Unknown History fluticasone propionate 110 inhalation 11/13/23 02/12/24 Unknown History mcg/actuation HFA aerosol inhaler famotidine 40 mg tablet 40 mg PO BEDTIME PRN heartburn 02/13/24 02/27/24 Unknown History ticagrelor 90 mg tablet 90 mg PO BID 02/13/24 02/27/24 02/22/24 History Exam Height,Weight and Vital Signs: Height 5 ft 8 in Weight 154.675 kg Pertinent Lab Results Pertinent Lab Results: Laboratory Tests 02/12/24 20:59 WBC 10.1 Hgb 12.3 Hct 36.4 L Plt Count 290 Sodium 141 Potassium 3.7 Chloride 113 H Carbon Dioxide 20 L BUN 13 Creatinine 0.90 Narrative Narrative: EKG 01/2024 sinus bradycardia, no acute ST or T-wave abnormality, rate 53, QTC 403 milliseconds NM cardiolite stress test 12/2023 Impression: 1. Myocardial perfusion imaging study shows mild reversible mid anterior wall defect, but improving with CT attenuation correction. Possibly mild ischemia, with some components of soft tissue attenuation artifact. 2. Gated LVEF is 64% during stress and 61% during rest. 3. Transient ischemic dilatation not present. EKG component of the test reported separately. Assessment and Plan Assessment Anesthesia Assessment: Chart Reviewed Final Anesthetic Review Family History of Problems with Anesthesia: No History of Problems with Anesthesia: No Documented by User: Aster Garcia MD 03/02/24 09:16 [facility] Past Medical History Medical History Morbid obesity Hidradenitis suppurativa CAD (coronary artery disease) Subsequent non-ST elevation myocardial infarction (NSTEMI) within 4 weeks of initial infarction Non-ST elevation [place] (NSTEMI) YAMILETH on CPAP Hyperlipidemia PTSD (post-traumatic stress disorder) Fatty liver Smoker Depression Obesity Leukocytosis Frequent UTI Asthma Mass of throat Chronic pain Kidney stone Migraine HTN (hypertension) Family History Family History Father Hypertension Mother Hypertension Osteoporosis Hx of bilateral cataract extraction Paternal Grandmother Diabetes Sister Asthma Maternal Uncle Throat cancer Maternal Aunt Ovarian cancer Breast cancer Surgical History Surgical History Stented coronary artery History of heart artery stent History of lumpectomy of left breast (10/22/21) History of lithotripsy History of endometrial ablation Hx of colonoscopy History of breast lump/mass excision History of tonsillectomy H/O: hysterectomy Social History Social History Household Members: Children Housing: Apartment Are you a primary child care group leader to a significant other at home: No Do you presently have visiting nurse or other home services: Yes (daughter is DRIVER MATERIAL HANDLER) Alcohol intake: never Comment: pt refusing alarms Patient Tobacco Use Status: Current everyday Tobacco user Tobacco use type: Cigarette Cigarette Packs Per Day: 0.5 Cigarettes Per Day: 10 Years Smoked: 35 +/- Second Hand Smoke Exposure: No Have you been hit, kicked, punched, or otherwise hurt by someone within the past year? If so, by whom?: No Are you DNR?: No Advance Directives: No Advance Directives Information Provided: Yes Advance Directives on File: Yes Advance Directives Date on File: 10/28/22 Recently lost weight without trying: No Nutrition Risks: Dental problems Poor oral hygiene: Yes (no teeth, preparing for dental implants) service: No Current occupational status: unemployed Meds Allergies Allergy/AdvReac Type Severity Reaction Status Date / Time penicillin G [PENICILLIN G] Allergy Severe DIFFICULTY Verified 02/27/24 09:11 BREATHING semaglutide [From Ozempic] AdvReac Severe Stomach Verified 02/27/24 09:11 Upset Home Medications ?Medication ?Instructions ?Recorded ?Confirmed ?Last Taken ?Type baclofen 10 mg tablet 10 mg PO TID PRN muscle spasm 11/03/20 02/27/24 Unknown History albuterol sulfate 90 mcg/actuation 2 puff PO Q4-6H PRN Wheezing 12/01/20 02/27/24 Unknown History aerosol inhaler (Ventolin HFA) atorvastatin 80 mg tablet (Lipitor) 80 mg PO BEDTIME 12/01/20 02/27/24 05/20/22 History fluticasone propionate 50 2 spray intranasal DAILY 12/01/20 02/27/24 05/21/22 History mcg/actuation nasal spray,suspension blood pressure test kit-large #1 ea 12/19/20 02/12/24 Unknown History topiramate 50 mg tablet 50 mg PO BID 12/19/20 02/27/24 Unknown History cholecalciferol (vitamin D3) 50 50 mcg PO DAILY 03/13/22 02/27/24 05/21/22 History mcg (2,000 unit) capsule lisinopril 30 mg tablet 30 mg PO DAILY 07/01/22 02/27/24 Unknown History metformin 500 mg tablet,extended 500 mg PO QPM 07/01/22 02/27/24 Unknown History release 24 hr metoprolol succinate 50 mg 50 mg PO DAILY 07/01/22 02/27/24 Unknown History tablet,extended release 24 hr tramadol 50 mg tablet 50 mg PO Q8H PRN severe pain 10/24/22 02/27/24 Unknown History capsaicin 0.025 % topical cream 1 appl topical BID PRN mild pain 10/25/22 02/27/24 Unknown History metronidazole 0.75 % topical gel 1 appl topical DAILY PRN Rash 10/25/22 02/27/24 Unknown History albuterol sulfate 2.5 mg/3 mL 2.5 mg inhalation Q4-6H PRN 11/15/22 02/27/24 Unknown History (0.083 %) solution for nebulization Wheezing aspirin 81 mg chewable tablet 1 tab PO DAILY 11/13/23 02/27/24 Unknown History fluticasone propionate 110 inhalation 11/13/23 02/12/24 Unknown History mcg/actuation HFA aerosol inhaler famotidine 40 mg tablet 40 mg PO BEDTIME PRN heartburn 02/13/24 02/27/24 Unknown History ticagrelor 90 mg tablet 90 mg PO BID 02/13/24 02/27/24 02/22/24 History Exam Airway Mallampati Class: III TM Dist: <=3cm Neck ROM: Limited Heart: rrr Lungs: cta Assessment and Plan Assessment Anesthesia Assessment: Anesthesia Plan Discussed Final Anesthetic Review NPO: Yes ASA Class: III Patient Risk: Intermediate Procedure Risk: Low Anesthetic Plan Anesthetic Plan: GA and MAC: Disposition: Standard PACU
[2024-03-02] VITALS (9 sets, daily range): BP systolic 119–167; BP diastolic 70–98; PULSE 48–61; RESP 14–18; TEMP 36.4–36.7; O2SAT 92–98; BMI 52.0
--- NOTE | ~2024-03-02 | FL_ITS ---
Described [facility] EXAMINATION: XR FLUOROSCOPY WITH IMAGES CLINICAL INFORMATION: Right renal stone. COMPARISON: CT abdomen and pelvis 02/12/2024. TECHNIQUE: Fluoroscopy Supervised By: Dr. Lepe. Fluoroscopy Time: 27.6 seconds. Cumulative Dose: 19.69 mGy. DAP: No DAP Gycm2. Images: 3. FINDINGS: Intraoperative fluoroscopy and spot films were performed during a procedure in the OR. Imaging shows the top portion of a right double-J internal stent. The distal portion of the bladder is not imaged. Please correlate with Dr. Lepe's report for complete details. FL/FL guidance in OR IMPRESSION: Intraoperative fluoroscopy and spot films were obtained. Please see Dr. Lepe's report for complete details.
--- NOTE | 2024-03-02 09:16 | MHC.SHP ---
Pre-Procedural Eval Section A - 24 Hr Update-Section A only Date of Service: 03/02/24 The patient is an INPATIENT: No The patient has been examined within 24 hours of the surgical procedure. The History & Physical has been completed within 30 days and I have reviewed it.: Yes Section B - Complete if H&P > 30 days Chief Complaint: Calculus of kidney Allergies: Allergies Allergy/AdvReac Type Severity Reaction Status Date / Time penicillin G [PENICILLIN G] Allergy Severe DIFFICULTY Verified 02/27/24 09:11 BREATHING semaglutide [From Ozempic] AdvReac Severe Stomach Verified 02/27/24 09:11 Upset Plan Diagnosis/Plan: Unchanged I have reviewed the history and physical and performed a pertinent physical examination on my patient. No changes have occurred unless specified. Plan for Cystoscopy, Right ureteroscopy, possible laser lithotripsy, possible ureteral stent exchange vs stent removal. Risks discussed included but not limited to, possible need to repeat procedure if stone is not completely fragmented, Irritative voiding symptoms, bladder spasms, urgency, blood in urine. Time Spent With Patient Time: Total time managing care of this patient today ____ minutes.
[2024-03-02] MEDS: Lactated Ringers 1,000 ML 100 ML IVCONT (09:36)
[2024-03-02 09:37] LABS: Glucose, Whole Blood 107 mg/dL (60-115)
--- NOTE | 2024-03-02 11:29 | P.OP_ITS ---
Operative Note Operative Note Date of Service: 03/02/24 Narrative: PreOperative Diagnosis:?? Right ureteral stone, right hydronephrosis, status post right ureteral stent Post Operative Diagnosis:?? Right ureteral stone, right hydronephrosis, status post right ureteral stent Procedure: Cystoscopy, Right ureteroscopy laser lithotripsy stent exchange, size 7 [place] by 26 cm Disposible Flexible ureteroscopy utilized Surgeon:?Dr Ricardo Lepe Anesthesia:? General Indications for procedure: Here for stone fragmentation. The patient has bilateral renal stones, in the right kidney multiple small stones the largest 4 mm in the lower pole. The patient is status post right ureteral stent for obstructing 3 mm ureteral stone. Procedure: After informed consent was verified the patient was brought to the operating placed on the OR table in supine position.? General Anesthesia was administered per protocol.? The patient was placed in lithotomy position, prepped and draped in the usual sterile fashion.? Safety pause time-out and side of surgery confirmed.? Antibiotics confirmed. A 22 [place]ican cystoscope was inserted transurethrally, the bladder was visualized.? Both ureteric orifices were in normal position. The right ureteral stent was curled in the bladder. The distal end of the ureteral stent was grasped with the flexible grasping forceps. The stent was pulled retrograde through the urethra. A guidewire was passed through the stent. The cystoscope was removed, leaving the guidewire in place. The guidewire was used as the safety and was attached to the draping. The semi rigid ureteroscope was passed transurethrally to the level of the stone in the mid ureter. The stone was visualized and the 0 degree basket was used to remove the stone. The stone was sent for analysis. A 2nd guidewire was placed and the disposable flexible ureteroscope was then passed up into the kidney there were tiny stones seen as well as the larger stone in the lower pole. The laser fiber was used to fragment the stone, the fragments were felt to be small enough to pass. The ureteroscope was removed. The cystoscope was passed over the safety guidewire. A? 7 [place] by 26 cm stent was placed into the ureter and renal pelvis under a combination of fluoroscopy and direct visualization. The bladder was emptied.? The rigid cystoscope was removed. ? The patient tole rated the procedure well and was brought to the recovery room in stable condition. Complications: None Drains: Ureteral stent as dictated above
[2024-03-02] MEDS: Phenazopyridine HCL 200 MG TABLET PO (12:00)
--- NOTE | 2024-03-02 12:34 | ECG_ITS ---
Test Reason : cp Blood Pressure : / mmHG Vent. Rate : 046 BPM Atrial Rate : 046 BPM P-R Int : 190 ms QRS Dur : 084 ms QT Int : 482 ms P-R-T Axes : 055 022 021 degrees QTc Int : 421 ms Sinus bradycardia Otherwise normal ECG When compared with ECG of 11-NOV-2023 17:29, Vent. rate has decreased BY 22 BPM Referred By: Aster Garcia Electronically Signed By:MARLENE BAUER MD
[2024-03-06 16:18] LABS: Stone Source RIGHT URETERAL STONE
== END 2024-03-02 13:45 | disposition home or self-care (01) ==
PROVIDERS: PCP Family Medicine; Visit Provider Urology
PROC: (CPT 52356; principal; 2024-03-02 10:30)
DX: N13.2 Hydronephrosis with renal and ureteral calculous obstruction (principal); Z96.0 Presence of urogenital implants; Z87.442 Personal history of urinary calculi; Z87.440 Personal history of urinary (tract) infections; I10 Essential (primary) hypertension; I25.10 Atherosclerotic heart disease of native coronary artery without angina pectoris; Z95.5 Presence of coronary angioplasty implant and graft; I25.2 Old myocardial infarction; J45.909 Unspecified asthma, uncomplicated; G47.33 Obstructive sleep apnea (adult) (pediatric); K76.0 Fatty (change of) liver, not elsewhere classified; G89.29 Other chronic pain; F32.A Depression, unspecified; F43.10 Post-traumatic stress disorder, unspecified; E66.01 Morbid (severe) obesity due to excess calories; Z68.43 Body mass index [BMI] 50.0-59.9, adult; Z79.82 Long term (current) use of aspirin; Z79.899 Other long term (current) drug therapy; Z99.89 Dependence on other enabling machines and devices; Z79.51 Long term (current) use of inhaled steroids; Z88.0 Allergy status to penicillin; Z88.8 Allergy status to other drugs, medicaments and biological substances; F17.210 Nicotine dependence, cigarettes, uncomplicated
CPT/HCPCS: 52356; 82365; 82947; 87086; 88300; 93005; C1758; C1769; C2617; J1100; J1956; J2250; J2405; J2704; J3010; Q9967

== ENCOUNTER → 2024-03-02 09:02 | Outpatient (BNV) | payer OTHER, SELFPAY ==
[2022-10-22 13:00] VITALS: BP 128/72; BP 148/88; BMI 63.7
[2023-01-30 14:13] VITALS: BP 140/60
== END ==
PROVIDERS: PCP Family Medicine; Visit Provider Urology
DX: N20.1 Calculus of ureter (principal)
CPT/HCPCS: 52356

== ENCOUNTER → 2024-03-02 12:34 | Outpatient (BNV) | payer OTHER, SELFPAY ==
[2022-10-22 13:00] VITALS: BP 128/72; BP 148/88; BMI 63.7
[2023-01-30 14:13] VITALS: BP 140/60
== END ==
PROVIDERS: PCP Family Medicine; Visit Provider Internal Medicine Cardiovascular Disease
DX: R07.9 Chest pain, unspecified (principal)
CPT/HCPCS: 93010

== ENCOUNTER 2024-03-25 08:44 | Outpatient (AMB) | payer OTHER, SELFPAY ==
[2022-10-22 13:00] VITALS: BP 128/72; BP 148/88; BMI 63.7
[2023-01-30 14:13] VITALS: BP 140/60
--- NOTE | 2024-03-25 08:51 | A.OFFVIS_ITS ---
Intake Visit Reasons: Stent removal Intake Note: Patient is Present for Cystoscopy/Stent removal Urology Med: Vitamin B6, Allopurinol, Tamsulosin Antibiotic Allergy:Penicillins Blood Thinner:Aspirin URO- G Disposable Cystoscope lot: [id number] exp: 10/02/2024 Cyber Threat Analyst Required: Yes Cyber Threat Analyst Language: Carding Supervisor Services: Cyber Threat Analyst Present Cyber Threat Analyst Name: Sonja [id number] Information Interpreted: non-clinical & clinical Accompanied by: Self / Same As Patient Allergies penicillin G [PENICILLIN G] Allergy (Severe, Verified 03/25/24 08:52) DIFFICULTY BREATHING semaglutide [From Ozempic] Adverse Reaction (Severe, Verified 03/25/24 08:52) Stomach Upset HPI Comments Details: 03/25/2024--here for stent removal. status post ureteroscopy laser lithotripsy on 03/02/2024. I have reviewed stone analysis--calcium oxalate dihydrate 95%, calcium oxalate monohydrate 5%. Review of imaging CTAP--02/13/2024 there are multiple bilateral kidney stones. Continue allopurinol 100 mg daily and vitamin B6 100 mg daily. Plan 24 hour urine collection. Review of chart: 02/27/2024--Blaire is a 48-year-old Estonian-speaking female, her daughter interprets for her during this visit. The patient had a right ureteral stent placed while an inpatient on 02/13/2024 for right hydronephrosis secondary to obstructing 3.5 mm proximal ureteral stone, s/p right ureteral stent. CT imaging notes bilateral small kidney stones. I have discussed plan for right ureteroscopy laser lithotripsy stent exchange. 10/28/23--Blaire is a pleasant 48 year old Estonian speaking patient of Dr. Bertrand. She has a past medical history of asthma, coronary artery disease, chronic pain, depression, fatty liver, hypertension, nephrolithiasis, migraines, non ST-elevation TN, obesity, obstructive sleep apnea on CPAP, PTSD and nicotine dependence. She presents to the office today for follow-up of her nephro lithiasis and recurrent urinary tract infections. In discussion with the patient today she reports to be doing and feeling well via urologically. She does discuss following up with GI for ongoing gastric issues she has been having and has since come off of Ozempic as she feels this was a contributing factor. Recent renal imaging results reviewed with the patient today. Right kidney with 0.5 cm lower pole calculus no hydronephrosis. Left kidney with 0.5 cm mid to lower pole calculus. Mid pole 0.4 left calculus. No hydronephrosis. No change in the renal calculi since prior CT. She otherwise denies hematuria, dysuria, foul smelling urine, changes to urinary stream, flank pain, fever, and or chills. She denies any bothersome urinary issues or concerns at this time. She reports compliance with vitamin B6 and alluprinol as prescribed. She continues to drink plenty of water daily. In office urinalysis results reviewed with the patient today. She denies having had any UTIs since her last office visit here approximately 6 months ago. She otherwise offers no other issues or concerns at this time. [facility]LY [facility] Medical History Morbid obesity Hidradenitis suppurativa CAD (coronary artery disease) Subsequent non-ST elevation myocardial infarction (NSTEMI) within 4 weeks of initial infarction Non-ST elevation TN (NSTEMI) YAMILETH on CPAP Hyperlipidemia PTSD (post-traumatic stress disorder) Fatty liver Smoker Depression Obesity Leukocytosis Frequent UTI Asthma Mass of throat Chronic pain Kidney stone Migraine HTN (hypertension) Surgical History Stented coronary artery History of heart artery stent History of lumpectomy of left breast (10/22/21) History of lithotripsy History of endometrial ablation Hx of colonoscopy History of breast lump/mass excision History of tonsillectomy H/O: hysterectomy Family History Father Hypertension Mother Hypertension Osteoporosis Hx of bilateral cataract extraction Paternal Grandmother Diabetes Sister Asthma Maternal Uncle Throat cancer Maternal Aunt Ovarian cancer Breast cancer Social History Household Members: Children Housing: Apartment Are you a primary adult care provider to a significant other at home: No Do you presently have visiting nurse or other home services: Yes (daughter is EVALUATION SPECIALIST) Alcohol intake: never Comment: pt refusing alarms Patient Tobacco Use Status: Current everyday Tobacco user Tobacco use type: Cigarette Cigarette Packs Per Day: 0.5 Cigarettes Per Day: 10 Years Smoked: 35 +/- Second Hand Smoke Exposure: No Advance Directives Date on File: 10/28/22 service: No Current occupational status: unemployed Review of Systems Const All systems reviewed & are unremarkable except as noted in HPI and below Reports no additional complaints Eyes Reports no additional complaints ENT Reports no additional complaints Card Reports no additional complaints Resp Reports no additional complaints GI Reports no additional complaints Reports as per HPI Musc Reports no additional complaints Skin/Breast Reports system reviewed and no additional complaints, except as documented Neuro Reports no additional complaints Psych Reports no additional complaints Endo Reports no additional complaints Brian/Lymph Reports no additional complaints Aller/Immun Reports no additional complaints Office Procedures Cystoscopy Consent Discussed risk and benefit or proposed procedure with the patient. Information consent for procedure given to the patient. Discussed technical aspects, risks, benefits and alternatives in full. Addressed all of the patient's questions and concerns regarding the procedure. The patient demonstrated knowledge and understanding. They wish to proceed with this procedure. Preparation The patient was prepped in the usual manner. A appeals court associate justice was present and in the room. Genitalia was prepped with betadine solution in a sterile manner. Lidocaine Jelly 2% was placed into the urethra and 16Fr flexible Olympus cystoscope was inserted into the meatus after adequate lubrication. Procedure Time out per protocol performed. Bladder Inspection Cystoscopy findings: mild edema ureteral orifice which is expected, distal end of ureteral stent visualized. The grasping forceps were used and the stent was removed without difficulty. [id number] with stent removal DISPOSABLE SCOPE URO-G FLEXIBLE SCOPE Procedure code (CPT) selection complete Office Meds lidocaine HCl 2 % mucosal jelly in applicator Performing Provider: Ricardo Lepe MD [facility] [place] Administered by: Gary Callejas LPN on 03/25/24 09:05 Dose Route Admin Location Dispensed Lot Number Expiration Date [facility] [place] Animal Laboratory Technician 10 mL intra-urethral 10 mL naproxen 500 mg tablet Performing Provider: Ricardo Lepe MD Performing Location: [facility] [place] Administered by: Gary Callejas LPN on 03/25/24 09:05 Dose Route Admin Location Dispensed Lot Number Expiration Date [facility] [place] Animal Laboratory Technician 500 mg PO 1 tab ciprofloxacin HCl 500 mg tablet Performing Provider: Ricardo Lepe MD Performing Location: [facility] [place] [facility] Administered by: Gary Callejas LPN on 03/25/24 09:05 Dose Route Admin Location Dispensed Lot Number Expiration Date [place] Animal Laboratory Technician 500 mg PO 1 tab Results AMB Urinalysis, Automated UA Leukoctes 500 Megha/uL Last Edit by Carmen Crain RMA on 03/25/24 09:06 UA Nitrite Positive Last Edit by Carmen Crain, RMA on 03/25/24 09:06 UA Urobilinogen 1 mg/dL Last Edit by Carmen Crain RMA on 03/25/24 09:06 UA Protein 300 mg/dL Last Edit by Carmen Crain RMA on 03/25/24 09:06 UA pH 5.5 Last Edit by Carmen Crain RMA on 03/25/24 09:06 UA Blood 200 Peter/uL Last Edit by Carmen Crain RMA on 03/25/24 09:06 UA Specific Brutus 1.025 Last Edit by Carmen Crain RMA on 03/25/24 09: 06 UA Ketone Positive Last Edit by Carmen Crain, RMA on 03/25/24 09:06 UA Bilirubin 0 mg/dL Last Edit by Carmen Crain RMA on 03/25/24 09:06 UA Glucose 0 mg/dL Last Edit by Carmen Crain RMA on 03/25/24 09:06 Results Reviewed Results Reviewed: Laboratory Last Values Urine pH (Auto) 5.5 03/25/24 08:54 Specific Brutus (Auto) 1.025 03/25/24 08:54 Urine Protein (Auto) 300 mg/dL 03/25/24 08:54 Glucose (UA)(Auto) 0 mg/dL 03/25/24 08:54 Urine Ketones (Auto) Positive 03/25/24 08:54 Urine Blood (Auto) 200 Peter/uL 03/25/24 08:54 Urine Nitrite (Auto) Positive 03/25/24 08:54 Urine Bilirubin (Auto) 0 mg/dL 03/25/24 08:54 Urine Urobilinogen (Auto) 1 mg/dL 03/25/24 08:54 Leukocyte Esterase (Auto) 500 Megha/uL 03/25/24 08:54 03/02/24--Stone analysis calcium oxalate Date of Service: 02/12/24 EXAMINATION: CT ABDOMEN AND PELVIS WITHOUT CONTRAST CLINICAL INFORMATION: Right flank pain. Renal calculi. COMPARISON: CT abdomen pelvis dated 02/06/2024. TECHNIQUE: Multidetector volumetric imaging was performed from the superior aspect of the liver through the pubic symphysis. Sagittal and coronal reformatted images were obtained on the technologist's workstation. This CT examination was performed using dose optimization techniques as appropriate, variously including the following: *Automated exposure control *Adjustment of mA and/or kV according to patient size (this includes techniques or standardized protocols for targeted exams where dose is matched to indication/reason for exam; i.e. extremities or head) *Use of iterative reconstruction technique DLP: 1294 mGy-cm FINDINGS: LUNG BASES: The visualized lung bases are unremarkable. LIVER, GALLBLADDER, AND BILIARY TREE: The liver is normal in size, shape, and attenuation. No focal hepatic lesion or biliary ductal dilatation is present. The gallbladder is unremarkable with no evidence of radiopaque gallstones, gallbladder wall thickening, or obvious pericholecystic inflammatory changes. PANCREAS: Unremarkable. SPLEEN: Unremarkable. ADRENAL GLANDS: Unremarkable. KIDNEYS AND URETERS: Right side: The right kidney is asymmetrically larger than the left and appears somewhat edematous. There is mild right-sided hydronephrosis. The proximal right ureter is dilated to the level of a calculus measuring 3.5 mm. The ureter distal to this calculus is decompressed. The right kidney contains multiple calculi ranging in size from punctate to 2.8 mm. These calculi are too small to get accurate Hounsfield unit values. Left side: There are multiple left renal calculi ranging in size from punctate to 4 mm in size. The 4 mm calculus has an average Hounsfield unit value of 405. There is no left-sided hydronephrosis. No left ureteral calculus. BLADDER: The urinary bladder is decompressed. No urinary bladder calculi are identified. GASTROINTESTINAL TRACT: The small and large bowel are normal in caliber. There is no pericolonic inflammatory stranding. The appendix is nonvisualized. ABDOMINAL WALL: No significant hernia is appreciated. LYMPH NODES: No lymphadenopathy. VASCULAR: No abdominal aortic aneurysm. Minimal atherosclerotic change. PELVIC VISCERA: The uterus is not visualized. There is no adnexal mass. No free fluid within the pelvis. OSSEOUS STRUCTURES: There are degenerative changes of lower lumbar spine. CT/CT abdomen pelvis wo IV con IMPRESSION: The right kidney is asymmetrically larger than the left and appears somewhat edematous. There is mild right-sided hydronephrosis. The proximal right ureter is dilated to the level of a calculus measuring 3.5 mm. The ureter distal to this calculus is decompressed. The right kidney contains multiple calculi ranging in size from punctate to 2.8 mm. These calculi are too small to get accurate Hounsfield unit values. Fleischner guidelines were followed. There are multiple left renal calculi ranging in size from punctate to 4 mm in size. The 4 mm calculus has an average Hounsfield unit value of 405. There is no left-sided hydronephrosis. No left ureteral calculus. Date of Service: 10/07/23 EXAMINATION: US RETROPERITONEAL LIMITED (RENAL ONLY) FINDINGS: RIGHT KIDNEY: 11.5 x 6.4 x 5.6 cm (SAG x AP x TRV). A 0.5 cm lower pole calculus. No hydronephrosis. Renal cortical thickness is normal. Limited visualization. LEFT KIDNEY: 11.5 x 5.2 x 4.6 cm (SAG x AP x TRV). Limited visualization. Renal cortical thickness is normal. Mid to lower pole 0.5 cm calculus. Mid pole 0.4 cm calculus. No hydronephrosis. IMPRESSION: Bilateral nonobstructive renal calculi. No hydronephrosis. Assessment & Plan Assessment & Plan (1) Nephrolithiasis: Comment: Calcium oxalate Code(s): N20.0 - Calculus of kidney Category: Medical (2) Chronic UTI (urinary tract infection): Code(s): N39.0 - Urinary tract infection, site not specified Category: Medical (3) Ureteral stent present: Code(s): Z96.0 - Presence of urogenital implants Category: Medical Plan Status post ureteroscopy laser lithotripsy on 03/02/2024. I have reviewed stone analysis--calcium oxalate dihydrate 95%, calcium oxalate monohydrate 5%. Review of imaging CTAP--02/13/2024 there are multiple bilateral kidney stones. Continue allopurinol 100 mg daily and vitamin B6 100 mg daily. Plan 24 hour urine collection. Orders: Orders AMB Urinalysis Automated Today Z13.9 - Encounter for screening, unspecified AMB Cystoscopy Today Z96.0 - Presence of urogenital implants Medications: Refilled pyridoxine (vitamin B6) 100 mg PO DAILY 90 days 90 tabs 3RF N20.0 - Calculus of kidney Patient Instructions: The patient had an opportunity to ask questions regarding treatment plan. The patient expressed understanding and agreement with the above treatment plan. The patient is aware they should contact our office by phone for worsening of their current condition or the appearance of new symptoms. Compliance is encou raged with any medications and followup testing that is ordered. It is a privilege to be allowed the opportunity to participate in the urologic care of your patient. If you have any questions or concerns regarding treatment for the above conditions please do not hesitate to contact me. The office telephone contact is [phone]. This note is constructed in part using voice recognition software. While every effort has been made to ensure accuracy hot blaster errors may have been included. Yours sincerely, Ricardo Lepe MD Coding Level of Care Code Est Pt Level 3 (24566) Diagnoses Nephrolithiasis N20.0 Chronic UTI (urinary tract infection) N39.0 Ureteral stent present Z96.0 CPT Codes Cystoscopy - CPT: 43743-[id number] with stent removal ([id number])
== END 2024-03-25 09:37 | disposition home or self-care (01) ==
PROVIDERS: PCP Family Medicine; Visit Provider Urology
DX: N20.0 Calculus of kidney (principal); N39.0 Urinary tract infection, site not specified; Z96.0 Presence of urogenital implants; Z13.9 Encounter for screening, unspecified
CPT/HCPCS: 52310; 99213

== ENCOUNTER → 2024-03-25 08:44 | Outpatient (BNVA) | payer OTHER, SELFPAY ==
[2022-10-22 13:00] VITALS: BP 128/72; BP 148/88; BMI 63.7
[2023-01-30 14:13] VITALS: BP 140/60
== END ==
PROVIDERS: PCP Family Medicine; Visit Provider Urology
DX: Z48.816 Encounter for surgical aftercare following surgery on the genitourinary system (principal)
CPT/HCPCS: 52310; 81003; 99212

== ENCOUNTER 2024-04-27 13:03 | Outpatient (REF) | payer OTHER, SELFPAY ==
[2022-10-22 13:00] VITALS: BP 128/72; BP 148/88; BMI 63.7
[2023-01-30 14:13] VITALS: BP 140/60
--- NOTE | ~2024-04-27 | XR_ITS ---
EXAMINATION: XR HIP, LEFT CLINICAL INFORMATION: Left hip pain COMPARISON: CT scan of the abdomen and pelvis January 2024.. TECHNIQUE: Two views of the left hip. FINDINGS: No fracture. Alignment is anatomic. Hip joint space is maintained. Soft tissues are unremarkable. XR/XR hip LT min 2V IMPRESSION: Normal x-ray appearance of the left hip. My review of prior CT demonstrates mild arthrosis of the left hip manifested by a single subchondral cyst in the acetabulum. Electronically signed by: Kane Espinoza MD 05/12/2024 06:39 AM EDT
== END 2024-04-27 13:04 | disposition home or self-care (01) ==
LOC: HO.HHCX 13:03
PROVIDERS: Visit Provider Family Medicine
DX: M25.552 Pain in left hip (principal)
CPT/HCPCS: 36415; 73502; 80061; 82043; 82105; 82570; 83036; 84443; 85025; 86592; 86704; 86706; 86708; 86803; 87340

== ENCOUNTER 2024-04-27 13:56 | Outpatient (REF) | payer OTHER, SELFPAY ==
[2022-10-22 13:00] VITALS: BP 128/72; BP 148/88; BMI 63.7
[2023-01-30 14:13] VITALS: BP 140/60
[2024-04-27 16:09] LABS: MANUAL DIFF FLAG NO
[2024-04-27 16:18] LABS: Basophils Absolute Auto 0.1 X10*3/uL (0.0-0.2); Basophils Percent Auto 0.6 % (0-2); Eosinophils Absolute Auto 0.3 X10*3/uL (0.0-0.4); Eosinophils Percent Auto 2.8 % (0-4); Hematocrit 37.2 % (37.0-47.0); Imm Gran Abs Auto 0.09 X10*3/uL (0.00-0.03); Imm Gran Pct Auto 0.9 % (0.0-0.4); Lymphocytes Percent Auto 28.9 % (20-40); Mean Corpuscular HGB Conc 32.3 g/dl (31.0-35.0); Mean Corpuscular Hemoglobin 30.8 pg (27.0-33.0); Mean Corpuscular Volume 95.4 fL (80.0-98.0); Mean Platelet Volume 10.3 fL (9.4-12.3); Monocytes Absolute Auto 0.9 X10*3/uL (0.1-1.2); Monocytes Percent Auto 8.8 % (2-11); Platelet Count 319 X10*3/uL (160-400); Red Cell Distribution Width 14.3 % (11.0-16.0); White Blood Count 10.3 X10*3/uL (4.8-10.8)
[2024-04-27 16:56] LABS: Creatinine Urine 160.96 mg/dL; Microalbum/Creatinine Ratio Ur 9.9 ug/mg cr (<30)
[2024-04-27 17:09] LABS: Estimated Average Glucose 117 mg/dL; Hemoglobin A1c % 5.7 % (<6.0)
[2024-04-27 17:15] LABS: Cholesterol 115 mg/dL (<200); HDL Cholesterol 36 mg/dL (>40); LDL Cholesterol Calculated 65 mg/dL (<100); Triglycerides 73 mg/dL (<150)
[2024-04-27 17:20] LABS: Thyroid Stimulating Hormone 2.67 uIU/mL (0.32-4.0)
[2024-04-28 04:36] LABS: HBc Num1 0.13 S/CO (0.00-0.79); HBsAGNum1 0.24 S/CO (0.00-0.99); Hepatitis B Core Antibody Nonreactive (Nonreactive); Hepatitis B Surface Antigen Negative (Negative); ~HepC Num1 0.12 S/CO (0.00-0.79); ~Hepatitis C Antibody Nonreactive (Nonreactive)
[2024-04-28 04:43] LABS: Hepatitis A Antibody IgG REACTIVE (Nonreactive); ~Hepatitis A Antibody IgG 11.82 S/CO (0.00-0.99)
[2024-04-28 04:58] LABS: HBS Num1 56.08 mIU/mL (0-7.99); ~Hepatitis B Surface Antibody REACTIVE (Nonreactive)
[2024-04-28 13:13] LABS: Alpha Fetoprotein 1.6 ng/mL
[2024-04-28 15:23] LABS: RPR Rapid Plasma Reagin NON-REACTIVE (NON-REACTIVE)
== END 2024-04-27 13:57 | disposition home or self-care (01) ==
LOC: HO.HHCL 13:56
PROVIDERS: Visit Provider Family Medicine
DX: Z13.89 Encounter for screening for other disorder (principal)
CPT/HCPCS: 36415; 80061; 82043; 82105; 82570; 83036; 84443; 85025; 86592; 86704; 86706; 86708; 86803; 87340

== ENCOUNTER 2024-04-29 07:39 | Outpatient (REF) | payer OTHER, SELFPAY ==
[2022-10-22 13:00] VITALS: BP 128/72; BP 148/88; BMI 63.7
[2023-01-30 14:13] VITALS: BP 140/60
--- NOTE | ~2024-04-29 | MM_ITS ---
EXAMINATION: MM SCREENING DIGITAL BREAST TOMOSYNTHESIS, BILATERAL CLINICAL INFORMATION: Screening. Asymptomatic. COMPARISON: Mammography: Comparison is made with available priors TECHNIQUE: Digital breast mammography with tomosynthesis is performed in both the craniocaudal and mediolateral oblique views along with computer-aided detection (CAD). FINDINGS: There are scattered areas of fibroglandular density (ACR BI-RADS breast composition Category b). There are no significant masses, abnormal calcifications, or other abnormalities. MM/MM tomosynthesis screening BI IMPRESSION: No mammographic evidence of malignancy. ASSESSMENT: BI-RADS BI-RADS 1 - Negative RECOMMENDATION: Routine annual mammography screening. 1 year F/U This examination should not preclude the clinical evaluation of a suspicious palpable abnormality. This patient's information was entered into a reminder system with a target due date for their next mammogram. Electronically signed by: Ciarra García DO 05/12/2024 07:28 PM EDT
--- NOTE | ~2024-04-29 | US_ITS ---
EXAMINATION: US RETROPERITONEAL COMPLETE (RENAL) CLINICAL INFORMATION: Calculus of kidney. COMPARISON: CT abdomen and pelvis 02/12/2024. Renal ultrasound 10/07/2023 and 12/05/2022. TECHNIQUE: Real-time imaging of the kidneys and bladder. FINDINGS: RIGHT KIDNEY: 10.9 x 6.7 x 6.7 cm (SAG x AP x TRV). The kidney is normal in size, contour, and echogenicity. Renal cortical thickness is normal. Multiple scattered echogenic foci seen the largest measuring 6 mm consistent with nonobstructing calculi. No focal parenchymal lesions or hydronephrosis. The hydronephrosis seen on the 02/12/2024 CT scan caused by an obstructing proximal ureteral calculus has resolved. LEFT KIDNEY: 12.7 x 4.9 x 5.3 cm (SAG x AP x TRV). The kidney is normal in size, contour, and echogenicity. Renal cortical thickness is normal. Multiple scattered echogenic foci seen the largest measuring 8 mm consistent with nonobstructing calculi. No focal parenchymal lesions or hydronephrosis. US/US renal BI IMPRESSION: Bilateral nonobstructing renal calculi. Resolved right-sided hydronephrosis. Electronically signed by: Darius Georges MD 05/05/2024 03:11 PM EDT
== END 2024-04-29 07:40 | disposition home or self-care (01) ==
LOC: HO.MAMMO 07:39
PROVIDERS: PCP Family Medicine; Visit Provider Family Medicine
DX: Z12.31 Encounter for screening mammogram for malignant neoplasm of breast (principal); N20.0 Calculus of kidney
CPT/HCPCS: 76775; 77063; 77067

== ENCOUNTER → 2024-04-29 08:30 | Outpatient (BNV) | payer OTHER, SELFPAY ==
[2022-10-22 13:00] VITALS: BP 128/72; BP 148/88; BMI 63.7
[2023-01-30 14:13] VITALS: BP 140/60
== END ==
PROVIDERS: PCP Family Medicine; Visit Provider Internal Medicine
DX: Z12.31 Encounter for screening mammogram for malignant neoplasm of breast (principal)
CPT/HCPCS: 77063; 77067

== ENCOUNTER 2024-04-29 08:34 | Outpatient (REF) | payer OTHER, SELFPAY ==
[2022-10-22 13:00] VITALS: BP 128/72; BP 148/88; BMI 63.7
[2023-01-30 14:13] VITALS: BP 140/60
== END 2024-04-29 08:35 | disposition home or self-care (01) ==
LOC: HO.US 08:34
PROVIDERS: PCP Family Medicine; Visit Provider Nurse Practitioner Family
DX: Z13.89 Encounter for screening for other disorder (principal)

== ENCOUNTER 2024-05-07 08:44 | Outpatient (REF) | payer OTHER, SELFPAY ==
[2022-10-22 13:00] VITALS: BP 128/72; BP 148/88; BMI 63.7
[2023-01-30 14:13] VITALS: BP 140/60
--- NOTE | ~2024-05-07 | US_ITS ---
EXAMINATION: US ABDOMEN COMPLETE CLINICAL INFORMATION: Follow up fatty liver. COMPARISON: Renal ultrasound 04/29/2024 and 12/05/2022. CT abdomen and pelvis 02/12/2024. TECHNIQUE: Real-time imaging of the abdominal viscera. FINDINGS: PANCREAS: Normal. ABDOMINAL AORTA: The distal aorta is obscured by bowel gas. The proximal and mid aorta show no evidence of an aneurysm. INFERIOR VENA CAVA: Visualized portions are normal. LIVER: Liver is enlarged with increased echogenicity suggesting hepatic steatosis. The liver contour is normal. No focal hepatic lesion. There is no intrahepatic biliary duct dilatation seen. GALLBLADDER: Normal. The gallbladder is physiologically distended without evidence of stones, sludge, polyps, wall thickening or pericholecystic fluid. COMMON BILE DUCT: Normal in caliber measuring 0.5 cm in diameter. RIGHT KIDNEY: No hydronephrosis or focal parenchymal lesions. The previously seen right-sided hydronephrosis caused by an obstructing ureteral stone on the 02/12/2024 CT scan has resolved. The kidney measures 11.6 cm in maximum dimension. There are multiple echogenic foci seen consistent with nonobstructing calculi the largest measuring 6 mm. LEFT KIDNEY: No hydronephrosis or focal parenchymal lesions. The kidney measures 12.8 cm in maximum dimension. There are multiple echogenic foci seen consistent with nonobstructing calculi the largest measuring 8 mm. SPLEEN: Normal. The spleen measures 10.0 cm in maximum dimension. FREE FLUID: None. US/US abdomen complete IMPRESSION: 1. Enlarged fatty liver. 2. Bilateral nonobstructing renal calculi similar to those seen on the CT. Electronically signed by: Darius Georges MD 05/12/2024 05:05 PM EDT
== END 2024-05-07 08:45 | disposition home or self-care (01) ==
LOC: HO.US 08:44
PROVIDERS: PCP Family Medicine; Visit Provider Family Medicine
DX: K76.0 Fatty (change of) liver, not elsewhere classified (principal)
CPT/HCPCS: 76700

== ENCOUNTER 2024-05-27 13:39 | Outpatient (AMB) | payer OTHER, SELFPAY ==
[2022-10-22 13:00] VITALS: BP 128/72; BP 148/88; BMI 63.7
[2023-01-30 14:13] VITALS: BP 140/60
--- NOTE | 2024-05-27 13:45 | A.OFFVIS_ITS ---
Vital Signs 3 05/27/24 13:58 Height 5 ft 7 in Weight 354 lb BMI 55.4 BP 220/106 H Blood Pressure Location Lt brachial Position Sitting Pulse 61 Intake Visit Reasons: bilateral breast mass Intake Note: Patient is seen in office for follow up visit, following bilateral breast mass. 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 Present Accompanied by: Self / Same As Patient Allergies penicillin G [PENICILLIN G] Allergy (Severe, Verified 05/27/24 13:52) DIFFICULTY BREATHING semaglutide [From Ozempic] Adverse Reaction (Severe, Verified 05/27/24 13:52) Stomach Upset Medication List - Last Reconciled 05/27/24 by Man Oviedo MD albuterol sulfate 90 mcg/actuation (Ventolin HFA) 2 puffs PO Q4-6H PRN albuterol sulfate 2.5 mg inhalation Q4-6H PRN allopurinol 100 mg PO DAILY 90 days aspirin 1 tab PO DAILY atorvastatin (Lipitor) 80 mg PO BEDTIME baclofen 10 mg PO TID PRN bisacodyl (Dulcolax (bisacodyl)) 20 mg (4 x 5 mg) PO ONCE PRN 1 day blood pressure test kit-large As directed capsaicin 0.025% 1 appl topical BID PRN cholecalciferol (vitamin D3) 50 mcg PO DAILY ezetimibe 10 mg PO DAILY famotidine 40 mg PO BEDTIME PRN fluticasone propionate 50 mcg/actuation 2 sprays intranasal DAILY fluticasone propionate 110 mcg/actuation inhalation isosorbide mononitrate ER 60 mg PO DAILY levofloxacin 500 mg PO DAILY 7 days lisinopril 30 mg PO DAILY metformin ER 500 mg PO QPM metoprolol succinate ER 50 mg PO DAILY metronidazole 0.75% 1 appl topical DAILY PRN omeprazole 40 mg (2 x 20 mg) PO DAILY phenazopyridine (Pyridium) 200 mg PO BID polyethylene glycol 3350 (Miralax) 238 grams PO ONCE PRN 1 day pyridoxine (vitamin B6) 100 mg PO DAILY 90 days tamsulosin (Flomax) 0.4 mg PO BEDTIME ticagrelor 90 mg PO BID topiramate 50 mg PO BID tramadol 50 mg PO Q8H PRN HPI Comments Details: 49-year-old female patient returning following excision of a left nipple cyst lesion on 10/22/2021 now presenting with complaints of a right breast mass and neck mass. Previous pathology revealed breast parenchyma with epidermal inclusion cyst and periductal chronic inflammation with fibrosis. She presents today for bilateral breast lumps that she noted on self examination. There is also a cyst which is located behind her right ear which has been causing pain and causing discharge. He is concerned that the breast lesions keep performing and is concerned about the possibility of breast cancer. She recently underwent a mammogram on 04/29/2024. This revealed no mammographic evidence of malignancy (BI-RADS 1). [facility] Medical History Morbid obesity Hidradenitis suppurativa CAD (coronary artery disease) Subsequent non-ST elevation myocardial infarction (NSTEMI) within 4 weeks of initial infarction Non-ST elevation [place] (NSTEMI) YAMILETH on CPAP Hyperlipidemia PTSD (post-traumatic stress disorder) Fatty liver Smoker Depression Obesity Leukocytosis Frequent UTI Asthma Mass of throat Chronic pain Kidney stone Migraine HTN (hypertension) Surgical History Stented coronary artery History of heart artery stent History of lumpectomy of left breast (10/22/21) History of lithotripsy History of endometrial ablation Hx of colonoscopy History of breast lump/mass excision History of tonsillectomy H/O: hysterectomy Family History Father Hypertension Mother Hypertension Osteoporosis Hx of bilateral cataract extraction Paternal Grandmother Diabetes Sister Asthma Maternal Uncle Throat cancer Maternal Aunt Ovarian cancer Breast cancer Social History Household Members: Children Housing: Apartment Are you a primary child care coordinator to a significant other at home: No Do you presently have visiting nurse or other home services: Yes (daughter is SYSTEM OPERATION SUPERINTENDENT) Alcohol intake: never Comment: pt refusing alarms Patient Tobacco Use Status: Current everyday Tobacco user Tobacco use type: Cigarette Cigarette Packs Per Day: 0.5 Cigarettes Per Day: 10 Years Smoked: 35 +/- Second Hand Smoke Exposure: No Advance Directives Date on File: 10/28/22 service: No Current occupational status: unemployed Review of Systems Const All systems reviewed & are unremarkable except as noted in HPI and below Denies anorexia, Denies chills, Denies fever(s) and Denies poor appetite Card Denies chest pain, Denies irregular heart rhythm and Denies palpitations Resp Denies cough, Denies hemoptysis and Denies excessive phlegm production GI Denies abdominal pain Denies nipple discharge Skin/Breast Denies bleeding lesions, Denies breast swelling, Denies breast skin changes, Reports breast pain, Reports breast mass and Denies nipple discharge Endo Denies palpitations Brian/Lymph Denies lymphadenopathy Aller/Immun Reports no additional complaints Physical Exam Const General: healthy appearing and no acute distress Nutritional Appearance: obese Orientation/consciousness: patient oriented x3 Limitations: no limitations HEENT Head images: 2 1. 0.75 cm epidermal inclusion cyst located in the crease behind the right ear. Central punctum identified suggestive of an inclusion cyst. No evidence of infection at this time. Neck Neck: Yes full ROM and Yes no lymphadenopathy Chest Other: Left breast: Lesions as noted below Right breast: Lesions as noted below Chest/axillae images: 2 1. Right sub nipple palpable nodule measuring approximately 1 cm in diameter, tender to palpation. No discharge noted. 2. Right axillary subcutaneous nodule, possible enlarged lymph node or cystic collection. Lesion measures approximately 1 cm diameter. 3. 1 cm skin lesion located in the inframammary crease. No redness or discharge appreciated. 4. Palpable subcutaneous nodule left breast upper inner quadrant, 1 cm diameter. GI Inspection: Yes normal to inspection Skin Other: Warm, dry, no rash Neuro General: patient oriented x3 Extrem Other: No edema Assessment & Plan Assessment & Plan (1) Masses of both breasts: Code(s): N63.10 - Unspecified lump in the right breast, unspecified quadrant; N63.20 - Unspecified lump in the left breast, unspecified quadrant Category: Medical (2) Sebaceous cyst of ear: Code(s): L72.3 - Sebaceous cyst Category: Medical Plan 41-year-old female patient with complaints of multiple breast lumps and a painful lump located behind the right ear which she is interested in having removed. Her most recent mammogram of 04/29/2024 revealed no mammographic evidence of malignancy (BI-RADS 1. On examination she does have bilateral breast lumps as noted above. After discussion of the procedure, risks, and alternatives, she consents to excision of the bilateral breast lumps as well as right posterior ear cyst. This will be scheduled as a short-stay surgery. Coding Level of Care Code Est Pt Level 4 (31328) Diagnoses Masses of both breasts N63.10; N63.20 Sebaceous cyst of ear L72.3
[2024-05-27 13:58] VITALS: BP 220/106; PULSE 61; BMI 55.4
== END 2024-05-27 14:27 | disposition home or self-care (01) ==
PROVIDERS: PCP Family Medicine; Visit Provider Surgery
DX: N63.10 Unspecified lump in the right breast, unspecified quadrant (principal); N63.20 Unspecified lump in the left breast, unspecified quadrant; L72.3 Sebaceous cyst
CPT/HCPCS: 99214

== ENCOUNTER → 2024-05-27 13:39 | Outpatient (BNVA) | payer OTHER, SELFPAY ==
[2022-10-22 13:00] VITALS: BP 128/72; BP 148/88; BMI 63.7
[2023-01-30 14:13] VITALS: BP 140/60
== END ==
PROVIDERS: PCP Family Medicine; Visit Provider Surgery
DX: N63.10 Unspecified lump in the right breast, unspecified quadrant (principal); N63.20 Unspecified lump in the left breast, unspecified quadrant; L72.3 Sebaceous cyst
CPT/HCPCS: 99212

== ENCOUNTER 2024-06-02 13:57 | Outpatient (REF) | payer OTHER, SELFPAY ==
[2022-10-22 13:00] VITALS: BP 128/72; BP 148/88; BMI 63.7
[2023-01-30 14:13] VITALS: BP 140/60
--- NOTE | ~2024-06-02 | US_ITS ---
EXAMINATION: US DIAGNOSTIC ULTRASOUND BREAST, BILATERAL CLINICAL INFORMATION: 41-year-old female, complaining of 1 cm oval mass right breast 10:00 axis, 6 cm from the nipple, as well as bilateral retroareolar small nodules felt by the patient by approximately 1 month. COMPARISON: None contributory. Correlation made with screening mammography 04/29/2024. TECHNIQUE: Ultrasound of the left breast is performed with real-time barajas scale imaging and color Doppler. Attention was given to both retroareolar regions, and in the 10:00 axis right breast in the areas of palpable concern. FINDINGS: Right Breast: -At the 10:00 axis approximately 20 cm from the nipple, there is a hyperechoic subcutaneous lipomatous nodule, likely developing oil cyst or fat necrosis, measuring 10 x 7 x 7 mm, correlating with the right 10:00 area of palpable concern. This finding is a benign abnormality. Patient has multiple known oil cysts. -In the retroareolar right breast, within the dermis/areola, there is a 7 x 7 x 5 mm intradermal oval hypoechoic dermal lesion directly adjacent to the nipple, consistent with a Brennan cyst. This correlates with the retroareolar palpable focus of concern. This is benign. No suspicious findings. Left Breast: In the retroareolar 6:00 left breast, within the dermis/areola, there is a 5 x 2 x 4 mm intradermal oval anechoic dermal lesion directly adjacent to the nipple, consistent with a Brennan cyst. This correlates with the retroareolar palpable focus of concern. This is benign. No suspicious findings. US/US breast BI limited mamm only IMPRESSION: -There are no findings suspicious for malignancy in either breast. -Right breast 10 x 7 x 7 mm area of subcutaneous fat necrosis/developing oil cyst, correlating with the right 10:00 area of palpable concern. This is benign. -Bilateral benign Brennan cysts in the nipples, confined to the dermis, correlating with the retroareolar regions of concern bilaterally. These are benign. -No further follow-up recommended. Recommend the patient return to routine annual screening mammography. ASSESSMENT: BI-RADS 2: Benign RECOMMENDATION: Routine annual mammography screening. This patient's information was entered into a reminder system with a target due date for their next mammogram. Electronically signed by: Shamir Olmedo MD 06/03/2024 08:41 AM EDT RP
== END 2024-06-02 13:58 | disposition home or self-care (01) ==
LOC: HO.MAMMO 13:57
PROVIDERS: PCP Family Medicine; Visit Provider Family Medicine
DX: R22.9 Localized swelling, mass and lump, unspecified (principal)
CPT/HCPCS: 76642

== ENCOUNTER → 2024-06-02 14:00 | Outpatient (BNV) | payer OTHER, SELFPAY ==
[2022-10-22 13:00] VITALS: BP 128/72; BP 148/88; BMI 63.7
[2023-01-30 14:13] VITALS: BP 140/60
== END ==
PROVIDERS: PCP Family Medicine; Visit Provider Radiology Diagnostic Radiology
DX: N64.1 Fat necrosis of breast (principal); N64.89 Other specified disorders of breast
CPT/HCPCS: 76642

== ENCOUNTER 2024-06-24 13:15 | Outpatient (AMB) | payer OTHER, SELFPAY ==
[2022-10-22 13:00] VITALS: BP 128/72; BP 148/88; BMI 63.7
[2023-01-30 14:13] VITALS: BP 140/60
[2024-06-24 14:11] VITALS: BP 140/70; PULSE 59; BMI 56.1
--- NOTE | 2024-06-24 14:11 | MHC.OFFVIS ---
Vital Signs 06/24/24 14:11 Height 5 ft 7 in Weight 358 lb 0.491 oz BMI 56.1 BP 140/70 H Blood Pressure Location Rt brachial Position Sitting Pulse 59 Pulse Source Monitor Intake Visit Reasons: pre-op surgery 06/28/24 Design Studio Consultant Required: Yes Design Studio Consultant Language: Billing Collections Specialist Name: sarah stinson [id number] Allergies penicillin G [PENICILLIN G] Allergy (Severe, Verified 06/24/24 14:14) DIFFICULTY BREATHING semaglutide [From Ozempic] Adverse Reaction (Severe, Verified 06/24/24 14:14) Stomach Upset Medication List - Last Reconciled 06/24/24 by LIZZETTE Cabral albuterol sulfate 90 mcg/actuation (Ventolin HFA) 2 puffs PO Q4-6H PRN albuterol sulfate 2.5 mg inhalation Q4-6H PRN allopurinol 100 mg PO DAILY 90 days aspirin 1 tab PO DAILY atorvastatin (Lipitor) 80 mg PO BEDTIME baclofen 10 mg PO TID PRN bisacodyl (Dulcolax (bisacodyl)) 20 mg (4 x 5 mg) PO ONCE PRN 1 day blood pressure test kit-large As directed capsaicin 0.025% 1 appl topical BID PRN cholecalciferol (vitamin D3) 50 mcg PO DAILY ezetimibe 10 mg PO DAILY famotidine 40 mg PO BEDTIME PRN fluticasone propionate 50 mcg/actuation 2 sprays intranasal DAILY fluticasone propionate 110 mcg/actuation 1 puff inhalation BID isosorbide mononitrate ER 60 mg PO DAILY lisinopril 30 mg PO DAILY metformin ER 500 mg PO QPM metoprolol succinate ER 50 mg PO DAILY metronidazole 0.75% 1 appl topical DAILY PRN omeprazole 40 mg (2 x 20 mg) PO DAILY phenazopyridine (Pyridium) 200 mg PO BID polyethylene glycol 3350 (Miralax) 238 grams PO ONCE PRN 1 day pyridoxine (vitamin B6) 100 mg PO DAILY 90 days tamsulosin (Flomax) 0.4 mg PO BEDTIME ticagrelor 90 mg PO BID topiramate 50 mg PO BID tramadol 50 mg PO Q8H PRN HPI HPI pre-op surgery 06/28/24: Details: Blaire is a 49-year-old female with past medical history morbid obesity, hypertension, hyperlipidemia, smoking, obstructive sleep apnea with CPAP use, NSTEMI, KAMARI to the proximal LAD, CAD, recent nuclear stress test that was mildly abnormal who presents for follow-up and preop cardiac evaluation for upcoming surgery. Today she reports that her prior left chest pressure has fully resolved. She believes the increase in the isosorbide may have helped. She currently has no chest discomfort at rest or with exertion. No concerning shortness of breath, PND, orthopnea or edema. No lightheadedness, presyncope, syncope, falls. She ambulates with a cane due to right hip pain. She tells me she has to have lumps removed from each breast and from behind her right ear. Taking all meds as directed. No bleeding issues reported. Certified dental aide used. [facility] Medical History (Updated 06/24/24 @ 15:33 by Martine Shirley NP-C) Morbid obesity Hidradenitis suppurativa CAD (coronary artery disease) Subsequent non-ST elevation myocardial infarction (NSTEMI) within 4 weeks of initial infarction Non-ST elevation [place] (NSTEMI) YAMILETH on CPAP Hyperlipidemia PTSD (post-traumatic stress disorder) Fatty liver Smoker Depression Obesity Leukocytosis Frequent UTI Asthma Mass of throat Chronic pain Kidney stone Migraine HTN (hypertension) Surgical History Hx of cystoscopy Stented coronary artery History of heart artery stent History of lumpectomy of left breast (10/22/21) History of lithotripsy History of endometrial ablation Hx of colonoscopy History of breast lump/mass excision History of tonsillectomy H/O: hysterectomy Family History Father Hypertension Mother Hypertension Osteoporosis Hx of bilateral cataract extraction Paternal Grandmother Diabetes Sister Asthma Maternal Uncle Throat cancer Maternal Aunt Ovarian cancer Breast cancer Social History Household Members: Children Housing: Apartment Are you a primary md do resident urgent care to a significant other at home: No Do you presently have visiting nurse or other home services: Yes (TUBE DEPATCHER-daughter) Alcohol intake: never Comment: pt refusing alarms Patient Tobacco Use Status: Current everyday Tobacco user Tobacco use type: Cigarette Cigarette Packs Per Day: 0.5 Cigarettes Per Day: 10 Years Smoked: 30 Second Hand Smoke Exposure: No Advance Directives Date on File: 10/28/22 service: No Current occupational status: unemployed Review of Systems Const All systems reviewed & are unremarkable except as noted in HPI and below ENT Denies dizziness Card Denies chest pain, Denies chest pain at rest, Denies chest pain with activity, Denies rapid heart rate, Denies pedal edema, Denies edema, Denies leg edema, Denies lightheadedness, Denies palpitations, Denies dyspnea, Denies dyspnea on exertion and Denies orthopnea Resp Denies cough, Denies dyspnea and Denies dyspnea on exertion GI Denies hematochezia and Denies change in stool character Musc Details: uses cane due to right hip discomfort Denies abnormal gait, Denies limited range of motion, Denies muscle cramps, Denies muscle weakness, Denies numbness, Denies radiating pain into limb, Denies stiffness and Denies tingling Neuro Denies abnormal gait, Denies dizziness, Denies numbness and Denies tingling Endo Denies palpitations Physical Exam Vital Signs: Last Vital Signs Pulse 59 06/24/24 14:11 BP 140/70 H 06/24/24 14:11 BMI result Body Mass Index 56.1 Const Other: morbidly obese General: cooperative, healthy appearing, comfortable and no acute distress Orientation/consciousness: patient oriented x3 Neck Neck: Yes normal visual inspection Resp Effort & Inspection: normal respiratory effort Auscultation: clear to auscultation bilaterally, no rales, no rhonchi and no wheezes Cardio Jugular venous distension: no JVD Rate: regular rate Rhythm: regular rhythm Heart sounds: S1 normal heart sound present, S2 normal heart sound present, no murmurs and no rubs Neuro General: patient oriented x3 Extrem General: Yes normal to inspection and No no pedal edema Psych Appearance: grossly normal Mental Status: mental status grossly normal Speech and movement: Normal speech and movement present Office Procedures EKG Details: Today, read by me, sinus bradycardia, no acute ST or T-wave abnormalities, rate 59, QTC 407 milliseconds [id number], Complete Assessment & Plan Assessment & Plan (1) Chest discomfort: Code(s): R07.89 - Other chest pain Category: Medical Plan: Prior reports of left chest pressure, with some typical and atypical features. Multiple cardiac risk factors including hypertension, hyperlipidemia, diabetes, smoking, morbid obesity, CAD. She does have history NSTEMI with KAMARI to the proximal LAD, 05/2022. A cardiac catheterization done 10/2022 showed mild plaque proximal to the LAD stent, patent LAD stent, no significant disease elsewhere. Last echocardiogram done 10/25/2022 showing EF 68%, moderate increase in the LV wall thickness, no valve abnormalities. She did undergo a stress test for her report of left chest pressure on 12/18/2023 showing mild reversible defect, possible mild ischemia versus soft tissue attenuation. On last visit it was unclear if her symptom was related to angina or not. I had her increase isosorbide from 30 mg daily up to 60 mg daily. Today she reports that she no longer gets the left chest pressure. She has been feeling good overall. EKG done today shows sinus bradycardia, rate 59. Will continue med management for stable CAD including metoprolol and isosorbide. Continue aspirin and Brilinta 60 mg b.i.d. as dual antiplatelet agents. Plan on low-dose Brilinta use for a total of 30 months post NSTEMI ( november 2024) Continue atorvastatin and Zetia with ideal LDL goal less than 70. Labs done on 10/21/2023 showing LDL 65. Spent time reviewing signs and symptoms of angina with her. Emergency care if needed for symptoms. Will plan cardiology follow-up in 6 months, sooner if needed. (2) CAD (coronary artery disease): Comment: Lad stent Code(s): I25.10 - Atherosclerotic heart disease of [place] coronary artery without angina pectoris Category: Medical Plan: As above (3) S/P cardiac catheterization: Comment: 10/28/2022, left main normal, lad mild plaque proximal to the stent, stent patent, left circumflex and RCA normal Code(s): Z98.890 - Other specified postprocedural states Category: Surgical Plan: As above (4) Abnormal nuclear stress test: Code(s): R94.39 - Abnormal result of other cardiovascular function study Category: Medical Plan: As above (5) Morbid obesity: Code(s): E66.01 - Morbid (severe) obesity due to excess calories Category: Medical Plan: She is requesting referral to the bariatric program. She is interested in weight loss. Current BMI 56.1. I will send referral. Will forward this note to her PCP. (6) HTN (hypertension): Code(s): I10 - Essential (primary) hypertension Category: Medical Plan: Blood pressure mildly elevated today, 140/70. She tells me she did not take her medications this morning. She reports that she usually takes them consistently however today she was upset and left the house without taking them. (7) Hyperlipidemia: Code(s): E78.5 - Hyperlipidemia, unspecified Category: Medical Plan: Well controlled as above. (8) Preop cardiovascular exam: Code(s): Z01.810 - Encounter for preprocedural cardiovascular examination Category: Medical Plan: Preop for bilateral breast mass removal and lump removal right side of her neck. She can proceed with intermediate cardiac risk. Brilinta can be held as needed for the procedure. Aspirin could also be held however if the procedure can be done on aspirin would ask that it be continued. Plan to restart dual antiplatelet therapy as soon as cleared by surgeon to do so. Continue all other cardiac meds. Call/consult Cardiology if needed. Plan Time spent on chart review, documentation, interview and assessment Orders: Referrals Bariatric Surgery Referral E11.9 - Type 2 diabetes mellitus without complications, E66.01 - Morbid (severe) obesity due to excess calories, I25.10 - Atherosclerotic heart disease of [place] coronary artery without angina pectoris Medications: New ticagrelor (Brilinta) Dose reduced 60 mg PO BID 90 days 180 tabs 1RF Coding Level of Care Code Est Pt Level 4 (76595) Complex EM visit Add On G2211 Diagnoses Chest discomfort R07.89 CAD (coronary artery disease) I25.10 S/P cardiac catheterization Z98.890 Abnormal nuclear stress test R94.39 Morbid obesity E66.01 HTN (hypertension) I10 Hyperlipidemia E78.5 Preop cardiovascular exam Z01.810 CPT Codes EKG - CPT: [id number], Complete ([id number]) Time Spent (min) 28
== END 2024-06-24 14:47 | disposition home or self-care (01) ==
LOC: HO.HCS 13:16
PROVIDERS: PCP Family Medicine; Visit Provider Nurse Practitioner Family
DX: R07.89 Other chest pain (principal); I25.10 Atherosclerotic heart disease of native coronary artery without angina pectoris; Z98.890 Other specified postprocedural states; R94.39 Abnormal result of other cardiovascular function study; E66.01 Morbid (severe) obesity due to excess calories; I10 Essential (primary) hypertension; E78.5 Hyperlipidemia, unspecified; Z01.810 Encounter for preprocedural cardiovascular examination
CPT/HCPCS: 93010; 99214; G2211

== ENCOUNTER → 2024-06-24 13:15 | Outpatient (BNVA) | payer OTHER, SELFPAY ==
[2022-10-22 13:00] VITALS: BP 128/72; BP 148/88; BMI 63.7
[2023-01-30 14:13] VITALS: BP 140/60
== END ==
PROVIDERS: PCP Family Medicine; Visit Provider Nurse Practitioner Family
DX: Z01.810 Encounter for preprocedural cardiovascular examination (principal); I25.10 Atherosclerotic heart disease of native coronary artery without angina pectoris; I10 Essential (primary) hypertension; E66.01 Morbid (severe) obesity due to excess calories; E78.5 Hyperlipidemia, unspecified; G47.33 Obstructive sleep apnea (adult) (pediatric); R07.89 Other chest pain; R94.39 Abnormal result of other cardiovascular function study; F17.210 Nicotine dependence, cigarettes, uncomplicated; Z68.43 Body mass index [BMI] 50.0-59.9, adult; Z99.89 Dependence on other enabling machines and devices; Z98.890 Other specified postprocedural states
CPT/HCPCS: 93005; 99212

== ENCOUNTER 2024-06-28 05:44 | Day surgery (SDC) | payer OTHER, SELFPAY ==
[2022-10-22 13:00] VITALS: BP 128/72; BP 148/88; BMI 63.7
[2023-01-30 14:13] VITALS: BP 140/60
[2024-06-18 14:14] VITALS: BP 145/81; PULSE 61; RESP 20; O2SAT 97; BMI 55.6
--- NOTE | 2024-06-24 14:25 | P.CONAN_ITS ---
Documented by User: Shanika Youngblood NP 06/25/24 10:11 HPI - Anesthesia Eval Consult details Narrative: 49yo F for Bilateral Breast Mass Excision X4, Right Posterior Neck Excision Cyst PAT 06/18/[address] Garcia BMI 55 Cardiac optimized for surgery. Follows [facility] [place] Cardiology for CAD/NSTEMI s/p KAMARI to LAD. Had mildly abnormal Nuc Stress, improved symptoms with increase in isosorbide. PMFSH Active Problems Active Problems: All Active Problems Sebaceous cyst of ear (Acute) Masses of both breasts (Acute) Ureteral stent present (Acute) Abnormal nuclear stress test (Acute) Chronic anticoagulation (Acute) Nausea and vomiting (Acute) Dysphagia (Acute) Gastroparesis (Acute) Chest discomfort (Acute) S/P cardiac catheterization (Acute) Non-STEMI (non-ST elevated myocardial infarction) (Acute) Diabetes mellitus (Acute) Osteoarthritis of left knee (Acute) Osteoarthritis of right knee (Acute) Encounter for screening colonoscopy (Acute) Hydronephrosis (Acute) Right kidney stone (Acute) Calculus of proximal right ureter (Acute) Ureterolithiasis (Acute) Left breast mass (Acute) Morbid obesity (Acute) Osteoarthritis of knees, bilateral (Acute) Knee pain (Acute) Leukocytosis (leucocytosis) (Acute) Chronic UTI (urinary tract infection) (Acute) Nephrolithiasis (Acute) Morbid obesity (Acute) Hidradenitis suppurativa (Acute) CAD (coronary artery disease) (Acute) Hyperlipidemia (Acute) HTN (hypertension) (Acute) Kidney stone (Acute) Past Medical History Medical History Morbid obesity Hidradenitis suppurativa CAD (coronary artery disease) Subsequent non-ST elevation myocardial infarction (NSTEMI) within 4 weeks of initial infarction Non-ST elevation VA (NSTEMI) YAMILETH on CPAP Hyperlipidemia PTSD (post-traumatic stress disorder) Fatty liver Smoker Depression Obesity Leukocytosis Frequent UTI Asthma Mass of throat Chronic pain Kidney stone Migraine HTN (hypertension) Family History Family History Father Hypertension Mother Hypertension Osteoporosis Hx of bilateral cataract extraction Paternal Grandmother Diabetes Sister Asthma Maternal Uncle Throat cancer Maternal Aunt Ovarian cancer Breast cancer Family history of problems with anesthesia: No Surgical History Surgical History Hx of cystoscopy Stented coronary artery History of heart artery stent History of lumpectomy of left breast (10/22/21) History of lithotripsy History of endometrial ablation Hx of colonoscopy History of breast lump/mass excision History of tonsillectomy H/O: hysterectomy History of Problems with Anesthesia: No Social History Social History Household Members: Children Housing: Apartment Are you a primary palliative care nurse practitioner to a significant other at home: No Do you presently have visiting nurse or other home services: Yes (INVESTMENTS MANAGER-daughter) Alcohol intake: never Comment: pt refusing alarms Patient Tobacco Use Status: Current everyday Tobacco user Tobacco use type: Cigarette Cigarette Packs Per Day: 0.5 Cigarettes Per Day: 10 Years Smoked: 30 Second Hand Smoke Exposure: No Advance Directives Date on File: 10/28/22 service: No Current occupational status: unemployed Meds Allergies Allergy/AdvReac Type Severity Reaction Status Date / Time penicillin G [PENICILLIN G] Allergy Severe DIFFICULTY Verified 06/24/24 14:14 BREATHING semaglutide [From Ozempic] AdvReac Severe Stomach Verified 06/24/24 14:14 Upset Home Medications ?Medication ?Instructions ?Recorded ?Confirmed ?Last Taken ?Type baclofen 10 mg tablet 10 mg PO TID PRN muscle spasm 11/03/20 06/28/24 Unknown History albuterol sulfate 90 mcg/actuation 2 puff PO Q4-6H PRN Wheezing 12/01/20 06/28/24 06/28/24 History aerosol inhaler (Ventolin HFA) atorvastatin 80 mg tablet (Lipitor) 80 mg PO BEDTIME 12/01/20 06/28/24 05/20/22 History fluticasone propionate 50 2 spray intranasal DAILY 12/01/20 06/28/24 05/21/22 History mcg/actuation nasal spray,suspension blood pressure test kit-large #1 ea 12/19/20 06/28/24 Unknown History topiramate 50 mg tablet 50 mg PO BID 12/19/20 06/28/24 06/28/24 History cholecalciferol (vitamin D3) 50 50 mcg PO DAILY 03/13/22 06/28/24 05/21/22 History mcg (2,000 unit) capsule lisinopril 30 mg tablet 30 mg PO DAILY 07/01/22 06/28/24 Unknown History metformin 500 mg tablet,extended 500 mg PO QPM 07/01/22 06/28/24 Unknown History release 24 hr metoprolol succinate 50 mg 50 mg PO DAILY 07/01/22 06/28/24 06/28/24 History tablet,extended release 24 hr tramadol 50 mg tablet 50 mg PO Q8H PRN severe pain 10/24/22 06/28/24 Unknown History capsaicin 0.025 % topical cream 1 appl topical BID PRN mild pain 10/25/22 06/28/24 Unknown History metronidazole 0.75 % topical gel 1 appl topical DAILY PRN Rash 10/25/22 06/28/24 Unknown History albuterol sulfate 2.5 mg/3 mL 2.5 mg inhalation Q4-6H PRN 11/15/22 06/28/24 Unknown History (0.083 %) solution for nebulization Wheezing aspirin 81 mg chewable tablet 1 tab PO DAILY 11/13/23 06/28/24 02/22/24 History fluticasone propionate 110 1 puff inhalation BID 11/13/23 06/28/24 Unknown History mcg/actuation HFA aerosol inhaler famotidine 40 mg tablet 40 mg PO BEDTIME PRN heartburn 02/13/24 06/28/24 Unknown History Exam Height,Weight and Vital Signs: Height 5 ft 7 in Weight 161.025 kg Last Vital Signs Pulse 61 06/18/24 14:14 Resp 20 06/18/24 14:14 BP 145/81 H 06/18/24 14:14 Pulse Ox 97 06/18/24 14:14 O2 Del Method Room Air 06/18/24 14:14 Pertinent Lab Results Pertinent Lab Results: Laboratory Tests 02/12/24 04/27/24 20:59 14:02 WBC 10.3 Hgb 12.0 Hct 37.2 Plt Count 319 Sodium 141 Potassium 3.7 Chloride 113 H Carbon Dioxide 20 L BUN 13 Creatinine 0.90 Narrative Narrative: EKG 02/2024 Vent. Rate : 046 BPM Atrial Rate : 046 BPM P-R Int : 190 ms QRS Dur : 084 ms QT Int : 482 ms P-R-T Axes : 055 022 021 degrees QTc Int : 421 ms Sinus bradycardia Otherwise normal ECG When compared with ECG of 11-NOV-2023 17:29, Vent. rate has decreased BY 22 BPM NM cardiolite stress test 12/2023 Impression: 1. Myocardial perfusion imaging study shows mild reversible mid anterior wall defect, but improving with CT attenuation correction. Possibly mild ischemia, with some components of soft tissue attenuation artifact. 2. Gated LVEF is 64% during stress and 61% during rest. 3. Transient ischemic dilatation not present. EKG component of the test reported separately. ECHO 2022 Conclusions: - The left ventricular systolic function is normal. The calculated ejection fraction is 68% by biplane method. - There is moderately increased left ventricular wall thickness. - No obvious valvular pathology seen on this study. Assessment and Plan Assessment Anesthesia Assessment: Chart Reviewed Final Anesthetic Review Family History of Problems with Anesthesia: No History of Problems with Anesthesia: No Documented by User: Caroline Echeverria MD 06/28/24 09:00 COUNTS INCLUDE 234 BEDS AT THE [facility] Active Problems Active Problems: All Active Problems Sebaceous cyst of ear (Acute) Masses of both breasts (Acute) Ureteral stent present (Acute) Abnormal nuclear stress test (Acute) Chronic anticoagulation (Acute) Nausea and vomiting (Acute) Dysphagia (Acute) Gastroparesis (Acute) Chest discomfort (Acute) S/P cardiac catheterization (Acute) Non-STEMI (non-ST elevated myocardial infarction) (Acute) Diabetes mellitus (Acute) Osteoarthritis of left knee (Acute) Osteoarthritis of right knee (Acute) Encounter for screening colonoscopy (Acute) Hydronephrosis (Acute) Right kidney stone (Acute) Calculus of proximal right ureter (Acute) Ureterolithiasis (Acute) Left breast mass (Acute) Morbid obesity (Acute) Osteoarthritis of knees, bilateral (Acute) Knee pain (Acute) Leukocytosis (leucocytosis) (Acute) Chronic UTI (urinary tract infection) (Acute) Nephrolithiasis (Acute) Morbid obesity (Acute) Hidradenitis suppurativa (Acute) CAD (coronary artery disease) (Acute). Denies recent chest pain. Last ab[place] 9 months ago Hyperlipidemia (Acute) HTN (hypertension) (Acute) Kidney stone (Acute) YAMILETH. Uses CPAP LAD stent. Last dose of aspirin and ticagrelor 06/23/24 Smoker Past Medical History Medical History Morbid obesity Hidradenitis suppurativa CAD (coronary artery disease) Subsequent non-ST elevation myocardial infarction (NSTEMI) within 4 weeks of initial infarction Non-ST elevation VA (NSTEMI) YAMILETH on CPAP Hyperlipidemia PTSD (post-traumatic stress disorder) Fatty liver Smoker Depression Obesity Leukocytosis Frequent UTI Asthma Mass of throat Chronic pain Kidney stone Migraine HTN (hypertension) Family History Family History Father Hypertension Mother Hypertension Osteoporosis Hx of bilateral cataract extraction Paternal Grandmother Diabetes Sister Asthma Maternal Uncle Throat cancer Maternal Aunt Ovarian cancer Breast cancer Family history of problems with anesthesia: No Surgical History Surgical History Hx of cystoscopy Stented coronary artery History of heart artery stent History of lumpectomy of left breast (10/22/21) History of lithotripsy History of endometrial ablation Hx of colonoscopy History of breast lump/mass excision History of tonsillectomy H/O: hysterectomy History of Problems with Anesthesia: No Social History Social History Household Members: Children Housing: Apartment Are you a primary palliative care nurse practitioner to a significant other at home: No Do you presently have visiting nurse or other home services: Yes (INVESTMENTS MANAGER-daughter) Alcohol intake: never Comment: pt refusing alarms Patient Tobacco Use Status: Current everyday Tobacco user Tobacco use type: Cigarette Cigarette Packs Per Day: 0.5 Cigarettes Per Day: 10 Years Smoked: 30 Second Hand Smoke Exposure: No Advance Directives Date on File: 10/28/22 service: No Current occupational status: unemployed Meds Allergies Allergy/AdvReac Type Severity Reaction Status Date / Time penicillin G [PENICILLIN G] Allergy Severe DIFFICULTY Verified 06/24/24 14:14 BREATHING semaglutide [From Ozempic] AdvReac Severe Stomach Verified 06/24/24 14:14 Upset Home Medications ?Medication ?Instructions ?Recorded ?Confirmed ?Last Taken ?Type baclofen 10 mg tablet 10 mg PO TID PRN muscle spasm 03/19/21 11/11/24 Unknown History albuterol sulfate 90 mcg/actuation 2 puff PO Q4-6H PRN Wheezing 12/01/20 06/28/24 06/28/24 History aerosol inhaler (Ventolin HFA) atorvastatin 80 mg tablet (Lipitor) 80 mg PO BEDTIME 12/01/20 06/28/24 05/20/22 History fluticasone propionate 50 2 spray intranasal DAILY 12/01/20 06/28/24 05/21/22 History mcg/actuation nasal spray,suspension blood pressure test kit-large #1 ea 12/19/20 06/28/24 Unknown History topiramate 50 mg tablet 50 mg PO BID 12/19/20 06/28/24 06/28/24 History cholecalciferol (vitamin D3) 50 50 mcg PO DAILY 03/13/22 06/28/24 05/21/22 History mcg (2,000 unit) capsule lisinopril 30 mg tablet 30 mg PO DAILY 07/01/22 06/28/24 Unknown History metformin 500 mg tablet,extended 500 mg PO QPM 07/01/22 06/28/24 Unknown History release 24 hr metoprolol succinate 50 mg 50 mg PO DAILY 07/01/22 06/28/24 06/28/24 History tablet,extended release 24 hr tramadol 50 mg tablet 50 mg PO Q8H PRN severe pain 10/24/22 06/28/24 Unknown History capsaicin 0.025 % topical cream 1 appl topical BID PRN mild pain 10/25/22 06/28/24 Unknown History metronidazole 0.75 % topical gel 1 appl topical DAILY PRN Rash 10/25/22 06/28/24 Unknown History albuterol sulfate 2.5 mg/3 mL 2.5 mg inhalation Q4-6H PRN 11/15/22 06/28/24 Unknown History (0.083 %) solution for nebulization Wheezing aspirin 81 mg chewable tablet 1 tab PO DAILY 11/13/23 06/28/24 02/22/24 History fluticasone propionate 110 1 puff inhalation BID 11/13/23 06/28/24 Unknown History mcg/actuation HFA aerosol inhaler famotidine 40 mg tablet 40 mg PO BEDTIME PRN heartburn 02/13/24 06/28/24 Unknown History Exam Height,Weight and Vital Signs: Height 5 ft 7 in Weight 161.025 kg Last Vital Signs Pulse 61 06/18/24 14:14 Resp 20 06/18/24 14:14 BP 145/81 H 06/18/24 14:14 Pulse Ox 97 06/18/24 14:14 O2 Del Method Room Air 06/18/24 14:14 Vital Signs Pulse Resp BP Pulse Ox O2 Del Method 61 20 145/81 H 97 Room Air 06/18/24 14:14 06/18/24 14:14 06/18/24 14:14 06/18/24 14:14 06/18/24 14:14 Airway Mallampati Class: II TM Dist: >3cm Neck ROM: Full Loose/Missing/Broken Teeth: Yes (Edentulous) Heart: RRR Lungs: CTAB Assessment and Plan Assessment Anesthesia Assessment: Anesthesia Plan Discussed and Chart Reviewed Final Anesthetic Review Family History of Problems with Anesthesia: No History of Problems with Anesthesia: No NPO: Yes ASA Class: III Final Preanesthetic Review: No Changes in Pt Med Stat, Meds/Allgs Chart Reviewed, Consent Obtained/Reviewed and Anes Risks/Benef Reviewed Patient Risk: Intermediate Procedure Risk: Low Assessment/Block/Sedation in SS: Assess/Block/Sedation-SS Anesthetic Plan Anesthetic Plan: GA Disposition: Standard PACU
[2024-06-28] VITALS (10 sets, daily range): BP systolic 102–151; BP diastolic 64–95; PULSE 48–62; RESP 18–22; TEMP 36.2–36.4; O2SAT 90–98
[2024-06-28] MEDS: vancomycin/NS 2,000 MG/500 ML PLAST..BAG 250 MG IV (06:43)
[2024-06-28] MEDS: Lactated Ringers 1,000 ML 100 ML IVCONT (06:44)
--- NOTE | 2024-06-28 07:29 | P.HPSUR_ITS ---
Pre-Procedural Eval Section A - 24 Hr Update-Section A only Date of Service: 06/28/24 The patient is an INPATIENT: No Changes since office visit: Yes Patient answered all questions; No Cold of Flu in the past 2 weeks, No New Medical Problems and No Changes in Medication The patient has been examined within 24 hours of the surgical procedure. The History & Physical has been completed within 30 days and I have reviewed it.: No Section B - Complete if H&P > 30 days Chief Complaint: Sebaceous cyst Details of Present Illness: No change since previous evaluation on 05/27/2024 Relevant Family History (Specify if Yes): No Relevant Social History: None Present Medications: see Short Stay Collaborative assessment Medical History: No relevant PMH History of Previous Operations: No relevant previous surgery Allergies: Allergies Allergy/AdvReac Type Severity Reaction Status Date / Time penicillin G [PENICILLIN G] Allergy Severe DIFFICULTY Verified 06/24/24 14:14 BREATHING semaglutide [From Ozempic] AdvReac Severe Stomach Verified 06/24/24 14:14 Upset Review of Systems Sugical H&P ROS: Negative: Constitution, Respiratory, Hem-Onc and Gastrointesti nal Exam Surgical H&P Exam: Normal: HEENT, Normal: Lungs, Normal: Extremities and Normal: Skin Plan Diagnosis/Plan: Unchanged I have reviewed the history and physical and performed a pertinent physical examination on my patient. No changes have occurred unless specified. Time Spent With Patient Time: Total time managing care of this patient today ____ minutes.
[2024-06-28 07:37] LABS: Glucose, Whole Blood 109 mg/dL (60-115)
--- NOTE | 2024-06-28 08:41 | P.OP_ITS ---
Operative Note Operative Note Date of Service: 06/28/24 Narrative: Preoperative diagnosis: Bilateral breasts cysts, cyst posterior right ear Postoperative diagnosis: Same Procedure: Excision of bilateral breast cysts, right posterior ear cyst Surgeon: Man Oviedo MD Warehouse Operations Associate: Aleksandra Sawyer PA-C Anesthesia: General LMA Indications for procedure: 49-year-old female patient presenting with bilateral breast cyst located in the periareolar skin. On the left side this was located in the lower inner quadrant within the areola. On the right breast and was located below the nipple in the upper inner quadrant. The right nipple was noted to be inverted due to this lesion. 1 cm cyst located behind the right ear. Operative findings: Large cystic collection in both the left and right nipple. Specimen: Bilateral breast cyst, right posterior ear cyst Estimated blood loss: 2 mL Complications: None Procedure details: Patient was brought to the OR and placed in a supine position. After administering general anesthesia the patient's bilateral breasts were prepped with ChloraPrep and draped in a sterile fashion. A surgical time-out was called the consent confirmed. Patient received preoperative antibiotics and Venodyne boots were in place. Local anesthesia was infiltrated around the cyst in the left and right breast. In the left breast an elliptical incision was made within the areola in the lower inner quadrant in a radial fashion. The incision was carried out through subcutaneous tissue and around the cyst wall. The lesion was excised and sent to pathology for further examination. Attention was then directed to the right breast were a curvilinear incision was made along the upper inner margin of the areola. This was carried out through subcutaneous tissue. Dissection was continued under the nipple to include a palpable cyst located just below the nipple. A large cystic collection was identified and excised. The nipple was ligated using a 3-0 Polysorb tie. The lesion was completely excised and sent to pathology for furt her examination. Wounds were irrigated with saline solution and suctioned dry. Deep breast tissue was then reapproximated using interrupted 3-0 Polysorb sutures. Dermis was reapproximated using 3-0 Polysorb sutures. Skin was closed using interrupted 4-0 Polysorb sutures. Steri-Strips, 2 x 2 gauze and Tegaderm were applied to both lesions. Attention was then directed to the posterior right ear cyst. The skin was prepped with Betadine and draped in a sterile fashion. Local anesthesia was infiltrated in a longitudinal fashion. An elliptical incision oriented longitudinally was then created with a scalpel and carried out through subcutaneous tissue. A large cystic collection was excised and sent to pathology for further examination. Skin was then closed using interrupted 4-0 nylon sutures. Sterile dressings consisting of 2 x 2 gauze and paper tape was then applied. The patient tolerated the procedure well. Sponge, instrument, and needle counts reported as correct. The patient was transferred to PACU in stable condition.
== END 2024-06-28 10:43 | disposition home or self-care (01) ==
PROVIDERS: PCP Family Medicine; Visit Provider Surgery
PROC: (CPT 19120; principal; 2024-06-28 07:30)
PROC: (CPT 19120; 2024-06-28 07:30)
DX: N60.02 Solitary cyst of left breast (principal); N60.01 Solitary cyst of right breast; L72.0 Epidermal cyst; I10 Essential (primary) hypertension; I25.10 Atherosclerotic heart disease of native coronary artery without angina pectoris; I25.2 Old myocardial infarction; E78.5 Hyperlipidemia, unspecified; G47.33 Obstructive sleep apnea (adult) (pediatric); K76.0 Fatty (change of) liver, not elsewhere classified; G43.909 Migraine, unspecified, not intractable, without status migrainosus; E66.01 Morbid (severe) obesity due to excess calories; Z68.43 Body mass index [BMI] 50.0-59.9, adult; J45.909 Unspecified asthma, uncomplicated; Z79.51 Long term (current) use of inhaled steroids; Z79.82 Long term (current) use of aspirin; Z79.84 Long term (current) use of oral hypoglycemic drugs; Z79.899 Other long term (current) drug therapy; Z99.89 Dependence on other enabling machines and devices; Z88.0 Allergy status to penicillin; Z88.8 Allergy status to other drugs, medicaments and biological substances; F17.210 Nicotine dependence, cigarettes, uncomplicated; Z56.0 Unemployment, unspecified
CPT/HCPCS: 19120; 11441; 82947; 88304; J0330; J2003; J2250; J2405; J2704; J2765; J2795; J3010; J3370

== ENCOUNTER → 2024-06-28 05:44 | Outpatient (BNV) | payer OTHER, SELFPAY ==
[2022-10-22 13:00] VITALS: BP 128/72; BP 148/88; BMI 63.7
[2023-01-30 14:13] VITALS: BP 140/60
== END ==
PROVIDERS: PCP Family Medicine; Visit Provider Surgery
DX: L72.0 Epidermal cyst (principal)
CPT/HCPCS: 11401; 11402; 11441

== ENCOUNTER → 2024-06-30 15:16 | Outpatient (BNVA) | payer OTHER, SELFPAY ==
[2022-10-22 13:00] VITALS: BP 128/72; BP 148/88; BMI 63.7
[2023-01-30 14:13] VITALS: BP 140/60
== END ==
PROVIDERS: PCP Family Medicine; Visit Provider Surgery
DX: Z48.01 Encounter for change or removal of surgical wound dressing (principal)
CPT/HCPCS: 99211

== ENCOUNTER 2024-07-01 14:21 | Outpatient (AMB) | payer OTHER, SELFPAY ==
[2022-10-22 13:00] VITALS: BP 128/72; BP 148/88; BMI 63.7
[2023-01-30 14:13] VITALS: BP 140/60
--- NOTE | 2024-07-01 15:51 | MHC.OFFVIS ---
Intake Visit Reasons: eBureau/Mobile Backstage Associate Professor Of Literature Required: Yes Associate Professor Of Literature Name: [id number] Allergies penicillin G [PENICILLIN G] Allergy (Severe, Verified 07/09/24 11:51) DIFFICULTY BREATHING semaglutide [From Ozempic] Adverse Reaction (Severe, Verified 07/09/24 11:51) Stomach Upset HPI Comments Details: 07/01/24--Discussed 24 hour urine results: Total volume 2.26 mL, Calcium 225 mg; Oxalate 62 mg, Sodium 259, Citrate 309 mg. 03/02/24--Stone analysis calcium oxalate. Instructed on importance of fluid intake, Low oxalate diet, low sodium diet. Refer to Nephrology for hypercalciuria. Review of chart 03/25/2024--here for stent removal. status post ureteroscopy laser lithotripsy on 03/02/2024. I have reviewed stone analysis--calcium oxalate dihydrate 95%, calcium oxalate monohydrate 5%. Review of imaging CTAP--02/13/2024 there are multiple bilateral kidney stones. Continue allopurinol 100 mg daily and vitamin B6 100 mg daily. Plan 24 hour urine collection. 02/27/2024--Blaire is a 48-year-old Lebanese-speaking female, her daughter interprets for her during this visit. The patient had a right ureteral stent placed while an inpatient on 02/13/2024 for right hydronephrosis secondary to obstructing 3.5 mm proximal ureteral stone, s/p right ureteral stent. CT imaging notes bilateral small kidney stones. I have discussed plan for right ureteroscopy laser lithotripsy stent exchange. 10/28/23--Blaire is a pleasant 48 year old Lebanese speaking patient of Dr. Bertrand. She has a past medical history of asthma, coronary artery disease, chronic pain, depression, fatty liver, hypertension, nephrolithiasis, migraines, non ST-elevation ND, obesity, obstructive sleep apnea on CPAP, PTSD and nicotine dependence. She presents to the office today for follow-up of her nephrolithiasis and recurrent urinary tract infections. In discussion with the patient today she reports to be doing and feeling well via urologically. She does discuss following up with GI for ongoing gastric issues she has been having and has since come off of Ozempic as she feels this was a contributing factor. Recent renal imaging results reviewed with the patient today. Right kidney with 0.5 cm lower pole calculus no hydronephrosis. Left kidney with 0.5 cm mid to lower pole calculus. Mid pole 0.4 left calculus. No hydronephrosis. No change in the renal calculi since prior CT. She otherwise denies hematuria, dysuria, foul smelling urine, changes to urinary stream, flank pain, fever, and or chills. She denies any bothersome urinary issues or concerns at this time. She reports compliance with vitamin B6 and alluprinol as prescribed. She continues to drink plenty of water daily. In office urinalysis results reviewed with the patient today. She denies having had any UTIs since her last office visit here approximately 6 months ago. She otherwise offers no other issues or concerns at this time. [facility] Medical History Morbid obesity Hidradenitis suppurativa CAD (coronary artery disease) Subsequent non-ST elevation myocardial infarction (NSTEMI) within 4 weeks of initial infarction Non-ST elevation ND (NSTEMI) YAMILETH on CPAP Hyperlipidemia PTSD (post-traumatic stress disorder) Fatty liver Smoker Depression Obesity Leukocytosis Frequent UTI Asthma Mass of throat Chronic pain Kidney stone Migraine HTN (hypertension) Surgical History H/O excision of mass (06/28/24) Hx of cystoscopy Stented coronary artery History of heart artery stent History of lumpectomy of left breast (10/22/21) History of lithotripsy History of endometrial ablation Hx of colonoscopy History of breast lump/mass excision History of tonsillectomy H/O: hysterectomy Family History Father Hypertension Mother Hypertension Osteoporosis Hx of bilateral cataract extraction Paternal Grandmother Diabetes Sister Asthma Maternal Uncle Throat cancer Maternal Aunt Ovarian cancer Breast cancer Social History Household Members: Children Housing: Apartment Are you a primary lead caregiver to a significant other at home: No Do you presently have visiting nurse or other home services: Yes (SEEING EYE DOG TRAINER-daughter) Alcohol intake: never Comment: pt refusing alarms Patient Tobacco Use Status: Current everyday Tobacco user Tobacco use type: Cigarette Cigarette Packs Per Day: 0.5 Cigarettes Per Day: 10 Years Smoked: 30 Second Hand Smoke Exposure: No Advance Directives Date on File: 10/28/22 service: No Current occupational status: unemployed Review of Systems Const All systems reviewed & are unremarkable except as noted in HPI and below Reports no additional complaints Eyes Reports no additional complaints ENT Reports no additional complaints Card Reports no additional complaints Resp Reports no additional complaints GI Reports no additional complaints Reports as per HPI Musc Reports no additional complaints Skin/Breast Reports system reviewed and no additional complaints, except as documented Neuro Reports no additional complaints Psych Reports no additional complaints Endo Reports no additional complaints Brian/Lymph Reports no additional complaints Aller/Immun Reports no additional complaints Telehealth Telehealth Telehealth Platform: 1-800-DOCTORS Location of provider rendering services: practice address Location of patient: address on file Patient Identification confirmed using: Name, : Yes Telehealth method: voice only Patient verbally consented to treatment: Yes Patient verbally consented to billing insurance company: Yes Patient informed of any privacy concerns related to visit: Yes Minutes spent on Phone/Video with Pt.: 18 Results Reviewed Results Reviewed: 03/02/24--Stone analysis calcium oxalate Date of Service: 02/12/24 EXAMINATION: CT ABDOMEN AND PELVIS WITHOUT CONTRAST CLINICAL INFORMATION: Right flank pain. Renal calculi. COMPARISON: CT abdomen pelvis dated 02/06/2024. TECHNIQUE: Multidetector volumetric imaging was performed from the superior aspect of the liver through the pubic symphysis. Sagittal and coronal reformatted images were obtained on the technologist's workstation. This CT examination was performed using dose optimization techniques as appropriate, variously including the following: *Automated exposure control *Adjustment of mA and/or kV according to patient size (this includes techniques or standardized protocols for targeted exams where dose is matched to indication/reason for exam; i.e. extremities or head) *Use of iterative reconstruction technique DLP: 1294 mGy-cm FINDINGS: LUNG BASES: The visualized lung bases are unremarkable. LIVER, GALLBLADDER, AND BILIARY TREE: The liver is normal in size, shape, and attenuation. No focal hepatic lesion or biliary ductal dilatation is present. The gallbladder is unremarkable with no evidence of radiopaque gallstones, gallbladder wall thickening, or obvious pericholecystic inflammatory changes. PANCREAS: Unremarkable. SPLEEN: Unremarkable. ADRENAL GLANDS: Unremarkable. KIDNEYS AND URETERS: Right side: The right kidney is asymmetrically larger than the left and appears somewhat edematous. There is mild right-sided hydronephrosis. The proximal right ureter is dilated to the level of a calculus measuring 3.5 mm. The ureter distal to this calculus is decompressed. The right kidney contains multiple calculi ranging in size from punctate to 2.8 mm. These calculi are too small to get accurate Hounsfield unit values. Left side: There are multiple left renal calculi ranging in size from punctate to 4 mm in size. The 4 mm calculus has an average Hounsfield unit value of 405. There is no left-sided hydronephrosis. No left ureteral calculus. BLADDER: The urinary bladder is decompressed. No urinary bladder calculi are identified. GASTROINTESTINAL TRACT: The small and large bowel are normal in caliber. There is no pericolonic inflammatory stranding. The appendix is nonvisualized. ABDOMINAL WALL: No significant hernia is appreciated. LYMPH NODES: No lymphadenopathy. VASCULAR: No abdominal aortic aneurysm. Minimal atherosclerotic change. PELVIC VISCERA: The uterus is not visualized. There is no adnexal mass. No free fluid within the pelvis. OSSEOUS STRUCTURES: There are degenerative changes of lower lumbar spine. CT/CT abdomen pelvis wo IV con IMPRESSION: The right kidney is asymmetrically larger than the left and appears somewhat edematous. There is mild right-sided hydronephrosis. The proximal right ureter is dilated to the level of a calculus measuring 3.5 mm. The ureter distal to this calculus is decompressed. The right kidney contains multiple calculi ranging in size from punctate to 2.8 mm. These calculi are too small to get accurate Hounsfield unit values. Fleischner guidelines were followed. There are multiple left renal calculi ranging in size from punctate to 4 mm in size. The 4 mm calculus has an average Hounsfield unit value of 405. There is no left-sided hydronephrosis. No left ureteral calculus. Date of Service: 10/07/23 EXAMINATION: US RETROPERITONEAL LIMITED (RENAL ONLY) FINDINGS: RIGHT KIDNEY: 11.5 x 6.4 x 5.6 cm (SAG x AP x TRV). A 0.5 cm lower pole calculus. No hydronephrosis. Renal cortical thickness is normal. Limited visualization. LEFT KIDNEY: 11.5 x 5.2 x 4.6 cm (SAG x AP x TRV). Limited visualization. Renal cortical thickness is normal. Mid to lower pole 0.5 cm calculus. Mid pole 0.4 cm calculus. No hydronephrosis. IMPRESSION: Bilateral nonobstructive renal calculi. No hydronephrosis. Assessment & Plan Assessment & Plan (1) Hypercalciuria: Code(s): R82.994 - Hypercalciuria Category: Medical (2) Hyperoxaluria: Code(s): R82.992 - Hyperoxaluria Category: Medical Plan Refer to Nephrology for hypercalciuria. Orders: Referrals Nephrology Referral R82.994 - Hypercalciuria, R82.992 - Hyperoxaluria, N20.0 - Calculus of kidney Patient Instructions: The patient had an opportunity to ask questions regarding treatment plan. The patient expressed understanding and agreement with the above treatment plan. The patient is aware they should contact our office by phone for worsening of their current condition or the appearance of new symptoms. Compliance is encouraged with any medications and followup testing that is ordered. It is a privilege to be allowed the opportunity to participate in the urologic care of your patient. If you have any questions or concerns regarding treatment for the above conditions please do not hesitate to contact me. The office telephone contact is [phone]. This note is constructed in part using voice recognition software. While every effort has been made to ensure accuracy java developer architect errors may have been included. Yours sincerely, Ricardo Lepe MD Coding Level of Care Code Tele Est Pt Level 4 (41070) Diagnoses Hypercalciuria R82.994 Hyperoxaluria R82.992
== END 2024-07-01 16:18 | disposition home or self-care (01) ==
PROVIDERS: PCP Family Medicine; Visit Provider Urology
DX: R82.994 Hypercalciuria (principal); R82.992 Hyperoxaluria
CPT/HCPCS: 99442

== ENCOUNTER 2024-07-09 11:46 | Outpatient (AMB) | payer OTHER, SELFPAY ==
[2022-10-22 13:00] VITALS: BP 128/72; BP 148/88; BMI 63.7
[2023-01-30 14:13] VITALS: BP 140/60
--- NOTE | 2024-07-09 11:46 | A.OFFVIS_ITS ---
Vital Signs 3 07/09/24 11:51 Height 5 ft 7 in Weight 358 lb 0.491 oz BMI 56.1 Pulse 60 Intake Visit Reasons: sp b/l masses x4 rt breast, 1 rt posterior ear Intake Note: Patient is seen in office for post op assessment post excision of bilateral breast cysts, right posterior ear cyst. Pt c/o: incision of the ear and left breast are healing well, incision of the right breast is open and some discharge for the past 4 days per pt surgery:06/28/24 Eviscerator Required: Yes Eviscerator Language: Digital Marketing Specialist Services: Eviscerator Present Eviscerator Name: Blaire GARCES Information Interpreted: non-clinical & clinical Heavy Machinery Operator: Heavy Machinery Operator Present Accompanied by: Self / Same As Patient Allergies penicillin G [PENICILLIN G] Allergy (Severe, Verified 07/09/24 11:51) DIFFICULTY BREATHING semaglutide [From Ozempic] Adverse Reaction (Severe, Verified 07/09/24 11:51) Stomach Upset HPI Comments Details: Patient returns 1 week following excision of bilateral breast cysts and posterior right ear cyst. She tolerated the procedure well but does report some discharge from the right nipple incision. She denies any fever or chills. [facility] Medical History Morbid obesity Hidradenitis suppurativa CAD (coronary artery disease) Subsequent non-ST elevation myocardial infarction (NSTEMI) within 4 weeks of initial infarction Non-ST elevation PR (NSTEMI) YAMILETH on CPAP Hyperlipidemia PTSD (post-traumatic stress disorder) Fatty liver Smoker Depression Obesity Leukocytosis Frequent UTI Asthma Mass of throat Chronic pain Kidney stone Migraine HTN (hypertension) Surgical History H/O excision of mass (06/28/24) Hx of cystoscopy Stented coronary artery History of heart artery stent History of lumpectomy of left breast (10/22/21) History of lithotripsy History of endometrial ablation Hx of colonoscopy History of breast lump/mass excision History of tonsillectomy H/O: hysterectomy Family History Father Hypertension Mother Hypertension Osteoporosis Hx of bilateral cataract extraction Paternal Grandmother Diabetes Sister Asthma Maternal Uncle Throat cancer Maternal Aunt Ovarian cancer Breast cancer Social History Household Members: Children Housing: Apartment Are you a primary certified social workers in health care to a significant other at home: No Do you presently have visiting nurse or other home services: Yes (SPIRAL TUBE WINDER-daughter) Alcohol intake: never Comment: pt refusing alarms Patient Tobacco Use Status: Current everyday Tobacco user Tobacco use type: Cigarette Cigarette Packs Per Day: 0.5 Cigarettes Per Day: 10 Years Smoked: 30 Second Hand Smoke Exposure: No Advance Directives Date on File: 10/28/22 service: No Current occupational status: unemployed Physical Exam Vital Signs: Last Vital Signs Pulse 60 07/09/24 11:51 BMI result Body Mass Index 56.1 Const General: comfortable Nutritional Appearance: obese Orientation/consciousness: patient oriented x3 HEENT Other: Ear the posterior right ear is clean, dry, and intact without redness or discharge. Chest Chest/axillae images: 2 1. Slight separation of the wound at the right nipple with no redness or discharge, suggestive of a skin burn. Bacitracin ointment applied followed by dry sterile dressings. Patient provided with some additional bacitracin ointment to apply daily. Neuro General: patient oriented x3 Assessment & Plan Assessment & Plan (1) Masses of both breasts: Code(s): N63.10 - Unspecified lump in the right breast, unspecified quadrant; N63.20 - Unspecified lump in the left breast, unspecified quadrant Category: Medical Plan Recommended applying bacitracin ointment to the right breast incision daily. She should return approximately 1-2 weeks for follow-up examination. She reports several new infections in the left breast therefore she will be started on antibiotics today. Medications: New 2 doxycycline hyclate 100 mg PO BID 14 tabs 0RF Coding Level of Care Code Global (99620) Diagnoses Masses of both breasts N63.10; N63.20
[2024-07-09 11:51] VITALS: PULSE 60; BMI 56.1
== END 2024-07-09 12:02 | disposition home or self-care (01) ==
PROVIDERS: PCP Family Medicine; Visit Provider Surgery
DX: N63.10 Unspecified lump in the right breast, unspecified quadrant (principal); N63.20 Unspecified lump in the left breast, unspecified quadrant
CPT/HCPCS: 99024

== ENCOUNTER → 2024-07-09 11:46 | Outpatient (BNVA) | payer OTHER, SELFPAY ==
[2022-10-22 13:00] VITALS: BP 128/72; BP 148/88; BMI 63.7
[2023-01-30 14:13] VITALS: BP 140/60
== END ==
PROVIDERS: PCP Family Medicine; Visit Provider Surgery
DX: N63.10 Unspecified lump in the right breast, unspecified quadrant (principal); N63.20 Unspecified lump in the left breast, unspecified quadrant
CPT/HCPCS: 99212

== ENCOUNTER 2024-07-22 14:08 | Outpatient (AMB) | payer OTHER, SELFPAY ==
[2022-10-22 13:00] VITALS: BP 128/72; BP 148/88; BMI 63.7
[2023-01-30 14:13] VITALS: BP 140/60
--- NOTE | 2024-07-22 14:22 | MHC.OFFVIS ---
Vital Signs 07/22/24 14:29 Height 5 ft 7 in Weight 368 lb 6 oz BMI 57.7 BP 203/94 H Blood Pressure Location Lt brachial Position Sitting Pulse 64 Intake Visit Reasons: s/p breast masses x4 Intake Note: Patient is seen in office for 2 weeks follow up visit, post excision of bilateral breast cysts & right posterior ear cyst. Pt c/o: right breast abscess, continued discharge,has 2 days left on antbx, open wound * on antbx due to new breast infections* Agronomy Location Manager Required: No Accompanied by: Self / Same As Patient Allergies penicillin G [PENICILLIN G] Allergy (Severe, Verified 07/09/24 11:51) DIFFICULTY BREATHING semaglutide [From Ozempic] Adverse Reaction (Severe, Verified 07/09/24 11:51) Stomach Upset HPI Comments Details: Blaire returns for follow-up examination. She continues to have an open wound in the right breast with some discomfort associated with the wound. There was discharge several days ago but generally the wound is dry. She also notes a new lesion in the left chest which is causing discomfort. She denies any bleeding or discharge at the site. She is requesting excision of this lesion. [facility] Medical History Morbid obesity Hidradenitis suppurativa CAD (coronary artery disease) Subsequent non-ST elevation myocardial infarction (NSTEMI) within 4 weeks of initial infarction Non-ST elevation [place] (NSTEMI) YAMILETH on CPAP Hyperlipidemia PTSD (post-traumatic stress disorder) Fatty liver Smoker Depression Obesity Leukocytosis Frequent UTI Asthma Mass of throat Chronic pain Kidney stone Migraine HTN (hypertension) Surgical History H/O excision of mass (06/28/24) Hx of cystoscopy Stented coronary artery History of heart artery stent History of lumpectomy of left breast (10/22/21) History of lithotripsy History of endometrial ablation Hx of colonoscopy History of breast lump/mass excision History of tonsillectomy H/O: hysterectomy Family History Father Hypertension Mother Hypertension Osteoporosis Hx of bilateral cataract extraction Paternal Grandmother Diabetes Sister Asthma Maternal Uncle Throat cancer Maternal Aunt Ovarian cancer Breast cancer Social History Household Members: Children Housing: Apartment Are you a primary hospice home care coordinator to a significant other at home: No Do you presently have visiting nurse or other home services: Yes (SURTASS ANALYST-daughter) Alcohol intake: never Comment: pt refusing alarms Patient Tobacco Use Status: Current everyday Tobacco user Tobacco use type: Cigarette Cigarette Packs Per Day: 0.5 Cigarettes Per Day: 10 Years Smoked: 30 Second Hand Smoke Exposure: No Advance Directives Date on File: 10/28/22 service: No Current occupational status: unemployed Review of Systems Const All systems reviewed & are unremarkable except as noted in HPI and below Physical Exam Vital Signs: Last Vital Signs Pulse 64 07/22/24 14:29 BP 203/94 H 07/22/24 14:29 BMI result Body Mass Index 57.7 Const General: no acute distress Nutritional Appearance: well nourished Orientation/consciousness: patient oriented x3 Limitations: no limitations Chest Chest/axillae images: 1. Open wound in the nipple-areolar complex measuring approximately 2 cm x 1 cm with granulation tissue at the base of the wound. 2. Epidermal inclusion cyst measuring 1.5 cm in diameter in the midclavicular line below the inframammary crease, tender to palpation but not fluctuant. Skin Other: Breast lesions as noted above. Neuro General: patient oriented x3 Assessment & Plan Assessment & Plan (1) Masses of both breasts: Code(s): N63.10 - Unspecified lump in the right breast, unspecified quadrant; N63.20 - Unspecified lump in the left breast, unspecified quadrant Category: Medical Plan 49-year-old female patient presenting with a nonhealing wound of the right breast as well as a new epidermal inclusion cyst of the left chest below the left breast. Recommended revision of the right breast incision and excision of the left chest wall epidermal inclusion cyst and after discussion of the procedure, risks, and alternatives, she consents to the surgery. She will be scheduled as a short-stay surgery at her earliest convenience. Coding Level of Care Code Global (99085) Diagnoses Masses of both breasts N63.10; N63.20
[2024-07-22 14:29] VITALS: BP 203/94; PULSE 64; BMI 57.7
== END 2024-07-22 14:35 | disposition home or self-care (01) ==
PROVIDERS: PCP Family Medicine; Visit Provider Surgery
DX: N63.10 Unspecified lump in the right breast, unspecified quadrant (principal); N63.20 Unspecified lump in the left breast, unspecified quadrant
CPT/HCPCS: 99024

== ENCOUNTER → 2024-07-22 14:08 | Outpatient (BNVA) | payer OTHER, SELFPAY ==
[2022-10-22 13:00] VITALS: BP 128/72; BP 148/88; BMI 63.7
[2023-01-30 14:13] VITALS: BP 140/60
== END ==
PROVIDERS: PCP Family Medicine; Visit Provider Surgery
DX: S21.001D Unspecified open wound of right breast, subsequent encounter (principal); N60.82 Other benign mammary dysplasias of left breast; X58.XXXD Exposure to other specified factors, subsequent encounter; Z98.890 Other specified postprocedural states
CPT/HCPCS: 99212

== ENCOUNTER 2024-07-26 14:09 | Outpatient (AMB) | payer OTHER, SELFPAY ==
[2022-10-22 13:00] VITALS: BP 128/72; BP 148/88; BMI 63.7
[2023-01-30 14:13] VITALS: BP 140/60
--- NOTE | 2024-07-26 14:15 | HO.NEPHOV_ITS ---
Vital Signs 07/26/24 14:19 Height 5 ft 7 in Weight 367 lb BMI 57.5 BP 140/80 H Blood Pressure Location Lt radial Position Sitting Pulse 58 Pulse Source Pulse Oximeter Pulse Oximetry (%) 95 Oxygen Delivery Method Room Air Intake Visit Reasons: Riynozbresrxhc-Vmwdauqbrffdl-Kbwwoyrd of kidney Mechanical Manufacturing Engineer Required: Yes Mechanical Manufacturing Engineer Language: Warm In Services: Mechanical Manufacturing Engineer Offered & Declined ([facility] [place] refused. ) Accompanied by: Self / Same As Patient Allergies penicillin G [PENICILLIN G] Allergy (Severe, Verified 07/27/24 10:20) DIFFICULTY BREATHING semaglutide [From Ozempic] Adverse Reaction (Severe, Verified 07/27/24 10:20) Stomach Upset HPI Comments Details: Blaire is a delightful 49 year old patient with multiple medical issues including multiple renal calculi. She is hypertensive and is on ACEI . She is on Topamax. She is diabetic and is on medications . She has no H/O proteinuria. She has no flank pain, nausea, vomiting, supra pubic pain, hematuria, fever, chills or rigor. Her BP is well controlled and she does not take excess NSAID's. She tries to maintain good hydration. Her renal functions have been normal [facility] Medical History Morbid obesity Hidradenitis suppurativa CAD (coronary artery disease) Subsequent non-ST elevation myocardial infarction (NSTEMI) within 4 weeks of initial infarction Non-ST elevation [place] (NSTEMI) YAMILETH on CPAP Hyperlipidemia PTSD (post-traumatic stress disorder) Fatty liver Smoker Depression Obesity Leukocytosis Frequent UTI Asthma Mass of throat Chronic pain Kidney stone Migraine HTN (hypertension) Surgical History H/O excision of mass (06/28/24) Hx of cystoscopy Stented coronary artery History of heart artery stent History of lumpectomy of left breast (10/22/21) History of lithotripsy History of endometrial ablation Hx of colonoscopy History of breast lump/mass excision History of tonsillectomy H/O: hysterectomy Family History Father Hypertension Mother Hypertension Osteoporosis Hx of bilateral cataract extraction Paternal Grandmother Diabetes Sister Asthma Maternal Uncle Throat cancer Maternal Aunt Ovarian cancer Breast cancer Social History Household Members: Children Housing: Apartment Are you a primary senior care specialist to a significant other at home: No Do you presently have visiting nurse or other home services: Yes (LEGAL PRACTICE MANAGER-daughter) Alcohol intake: never Comment: pt refusing alarms Patient Tobacco Use Status: Current everyday Tobacco user Tobacco use type: Cigarette Cigarette Packs Per Day: 0.5 Cigarettes Per Day: 10 Years Smoked: 30 Second Hand Smoke Exposure: No Advance Directives Date on File: 10/28/22 service: No Current occupational status: unemployed Review of Systems Const All systems reviewed & are unremarkable except as noted in HPI and below Physical Exam Vital Signs: Last Vital Signs Pulse 58 07/26/24 14:19 BP 140/80 H 07/26/24 14:19 Pulse Ox 95 07/26/24 14:19 Oxygen Delivery Method Room Air 07/26/24 14:19 BMI result Body Mass Index 57.5 Const General: comfortable and no acute distress Orientation/consciousness: patient oriented x3 HEENT Head: Yes normocephalic Mouth: Normal oral and palatal mucosa present Eyes EOM: EOMs intact bilaterally Neck Neck: Yes supple Resp Auscultation: clear to auscultation bilaterally Cardio Jugular venous distension: no JVD Rate: regular rate GI Palpation (GI): Soft to palpation Auscultation: normal bowel sounds General: Yes no CVA tenderness Back/Spine/Pelvis Back: no CVA tenderness Skin General skin exam: no rashes or lesions noted Neuro General: patient oriented x3 and moves all extremities Extrem General: Yes no pedal edema Results Reviewed Nephrology Results: No Data to Display Assessment & Plan Assessment & Plan (1) Multiple renal calculi: Code(s): N20.0 - Calculus of kidney Category: Medical (2) HTN (hypertension): Code(s): I10 - Essential (primary) hypertension Category: Medical Qualifiers: Hypertension type: primary hypertension Qualified Code(s): I10 - Essential (primary) hypertension Plan She is known to have calcium oxalate renal calculi. I reiterated the need to keep up with good hydration, lessen Na in the diet and consume less meat and have more fruits & vegetables. She needs to be on a low oxalate diet. I started her on HCTZ, dose of which I shall tirate with time. She may be candidate for K citrate. Her BP is currently well controlled on current medication regimen. I plan to do a 24 hour urine collection for stone screen as well as protein later along with serum uric acid as well as calcium. F/U labs ordered given initiation of HCTZ. All questions answered . F/U given Orders: Orders Blood Urea Nitrogen 1 Month N20.0 - Calculus of kidney Electrolytes 1 Month N20.0 - Calculus of kidney Creatinine 1 Month N20.0 - Calculus of kidney Calcium 1 Month N20.0 - Calculus of kidney Medications: New hydrochlorothiazide 12.5 mg PO DAILY 30 tabs 3RF Coding Level of Care Code New Pt Level 4 (45627) Diagnoses Multiple renal calculi N20.0 Primary hypertension I10 Hypertension type: primary hypertension
[2024-07-26 14:19] VITALS: BP 140/80; PULSE 58; O2SAT 95; BMI 57.5
== END 2024-07-26 14:37 | disposition home or self-care (01) ==
PROVIDERS: PCP Family Medicine; Referring Provider Urology; Visit Provider Internal Medicine Nephrology
DX: N20.0 Calculus of kidney (principal); I10 Essential (primary) hypertension
CPT/HCPCS: 99204

== ENCOUNTER → 2024-07-26 14:09 | Outpatient (BNVA) | payer OTHER, SELFPAY ==
[2022-10-22 13:00] VITALS: BP 128/72; BP 148/88; BMI 63.7
[2023-01-30 14:13] VITALS: BP 140/60
== END ==
PROVIDERS: PCP Family Medicine; Referring Provider Urology; Visit Provider Internal Medicine Nephrology
DX: N20.0 Calculus of kidney (principal); R82.994 Hypercalciuria; R82.992 Hyperoxaluria; I10 Essential (primary) hypertension
CPT/HCPCS: 99202

== ENCOUNTER 2024-07-27 09:52 | Outpatient (AMB) | payer OTHER, SELFPAY ==
[2022-10-22 13:00] VITALS: BP 128/72; BP 148/88; BMI 63.7
[2023-01-30 14:13] VITALS: BP 140/60
--- NOTE | 2024-07-27 10:15 | A.OFFVIS_ITS ---
Intake Visit Reasons: New prob- Left hip pain Intake Note: Blaire is a 49 year old female who presents today for a evaluation of her left hip pain. No hx of injury. Patient reports ongoing pain for a couple years. She mentions that her pain is on the lateral aspect of her hip and sometimes it goes to her lower back. Patient also mentions that her pain goes to her right hip as well. She states that her pain is worse when she walking and standing more than 5 minutes. Patient reports she has tried taking aspirin which it didn't give her relief. Dock Operations Supervisor Services: Dock Operations Supervisor Present (Nikos ([id number]) ) Allergies penicillin G [PENICILLIN G] Allergy (Severe, Verified 07/27/24 10:20) DIFFICULTY BREATHING semaglutide [From Ozempic] Adverse Reaction (Severe, Verified 07/27/24 10:20) Stomach Upset HPI HPI New prob- Left hip pain: Details: 49-year-old female, who is Mozambican speaking, presents in the office today for an evaluation of left hip pain. The patient was seen by Carmen Bertrand DO at [facility] medicine on 04/27/24 for acute left hip pain. The patient has been having worsening left hip pain radiating pain down to the left knee and locking of the left hip with ambulation. X-rays of the left hip were obtained. She was recommended to take Motrin and tramadol for pain management of her left hip, low back, and bilateral knee pain. While in the office today, the patient reports left hip pain ongoing for a couple of years. She specifies her pain on the lateral aspect of the left hip and occasionally radiates to her lower back. She also mentions that the pain radiates to her right hip as well. She denies any history of injury in the left hip. She experiences worsening pain when ambulating and standing for more than f domitila minutes. She has tried taking aspirin without relief. The patient has a history of NSTEMI, prediabetes, fatty liver, nephrolithiasis, coronary arteriosclerosis, mild persistent asthma, and hypertension. [facility] Medical History Morbid obesity Hidradenitis suppurativa CAD (coronary artery disease) Subsequent non-ST elevation myocardial infarction (NSTEMI) within 4 weeks of initial infarction Non-ST elevation [place] (NSTEMI) YAMILETH on CPAP Hyperlipidemia PTSD (post-traumatic stress disorder) Fatty liver Smoker Depression Obesity Leukocytosis Frequent UTI Asthma Mass of throat Chronic pain Kidney stone Migraine HTN (hypertension) Surgical History H/O excision of mass (06/28/24) Hx of cystoscopy Stented coronary artery History of heart artery stent History of lumpectomy of left breast (10/22/21) History of lithotripsy History of endometrial ablation Hx of colonoscopy History of breast lump/mass excision History of tonsillectomy H/O: hysterectomy Family History Father Hypertension Mother Hypertension Osteoporosis Hx of bilateral cataract extraction Paternal Grandmother Diabetes Sister Asthma Maternal Uncle Throat cancer Maternal Aunt Ovarian cancer Breast cancer Social History Household Members: Children Housing: Apartment Are you a primary home care assistant to a significant other at home: No Do you presently have visiting nurse or other home services: Yes (DIRECTOR PUBLIC SERVICE-daughter) Alcohol intake: never Comment: pt refusing alarms Patient Tobacco Use Status: Current everyday Tobacco user Tobacco use type: Cigarette Cigarette Packs Per Day: 0.5 Cigarettes Per Day: 10 Years Smoked: 30 Second Hand Smoke Exposure: No Advance Directives Date on File: 10/28/22 service: No Current occupational status: unemployed Review of Systems Const All systems reviewed & are unremarkable except as noted in HPI and below Physical Exam Const General: cooperative, healthy appearing and no acute distress Resp Effort & Inspection: normal respiratory effort and able to speak in complete sentences Cardio Rate: regular rate Peripheral pulses: Peripheral pulses 2+ throughout GI Palpation (GI): Soft to palpation Skin Lesions: no lesions Rashes: no rashes Extrem Other: Left hip: Normal to inspection. No ecchymosis, erythema, or edema. Full hip ROM in all planes. Mild tenderness to palpation over the greater trochanteric bursa. 4/5 strength with resisted hip flexion, knee extension, abduction, and abduction. Able to perform straight leg raise with reproduction of pain lateral aspect of the hip to the foot bilaterally. Assessment & Plan Assessment & Plan (1) Lumbar radiculopathy: Code(s): M54.16 - Radiculopathy, lumbar region Category: Medical Plan Ms. Maria Luisa Jean is a 49-year-old female, who is Mozambican speaking, presents in the office today for an evaluation of left hip pain. The patient was seen by Carmen Bertrand DO at [facility] medicine on 04/27/24 for acute left hip pain. The patient has been having worsening left hip pain radiating pain down to the left knee and locking of the left hip with ambulation. X-rays of the left hip were obtained. She was recommended to take Motrin and tramadol for pain management of her left hip, low back, and bilateral knee pain. While in the office today, the patient reports left hip pain ongoing for a couple of years. She specifies her pain on the lateral aspect of the left hip and occasionally radiates to her lower back. She also mentions that the pain radiates to her right hip as well. She denies any history of injury in the left hip. She experiences worsening pain when ambulating and standing for more than five minutes. She has tried taking aspirin without relief. The patient has a history of NSTEMI, prediabetes, fatty liver, nephrolithiasis, coronary arteriosclerosis, mild persistent asthma, and hypertension. The patient was referred to Dr. Aviles for further evaluation and treatment of her lower back. We discussed the role of physical therapy for her L spine; however, she deferred it at this time due to her past experiences with physical therapy for other body parts (knees) that only worsened the pain with no pain relief. Therefore, she refuses to partake in physical therapy. Follow-up will be Dr. Aviles and PRN with me, or sooner if needed. X-rays of the left hip, which were obtained while in the office today and were r eviewed by me, Trupti Lyle PA-C, revealed: Arthritic changes noted. No acute fracture or dislocation. X-rays of the left hip, obtained on 04/27/24, revealed: Normal x-ray appearance of the left hip. My review of prior CT demonstrates mild arthrosis of the left hip manifested by a single subchondral cyst in the acetabulum. Orders: Orders XR hip LT w PEL1V Today M25.559 - Pain in unspecified hip Patient Instructions: Scribed by Margarita Radford medical assistant per diemmargarita jovel PA-C on 07/27/24 at 10:50 am EST. Coding Level of Care Code Est Pt Level 3 (06388) Diagnoses Lumbar radiculopathy M54.16
== END 2024-07-27 10:36 | disposition home or self-care (01) ==
PROVIDERS: PCP Family Medicine; Visit Provider Physician Assistant
DX: M54.16 Radiculopathy, lumbar region (principal)
CPT/HCPCS: 99213

== ENCOUNTER 2024-07-27 14:15 | Outpatient (REF) | payer OTHER, SELFPAY ==
[2022-10-22 13:00] VITALS: BP 128/72; BP 148/88; BMI 63.7
[2023-01-30 14:13] VITALS: BP 140/60
--- NOTE | ~2024-07-27 | XR_ITS ---
EXAMINATION: XR HIP LEFT CLINICAL INFORMATION: Pain in unspecified hip M25.559. COMPARISON: XR Left hip 04/27/2024 TECHNIQUE: Pelvis 2 views. Left 2 views. FINDINGS: Left hip: No fracture. Alignment is anatomic. Hip joint space is maintained. Left SI joint arthritis. Soft tissues are unremarkable. Pelvis: Mild lateral acetabular spurring and acetabular roof sclerosis, with maintained hip joint space. Left SI joint arthritis. Possible right SI joint arthritis, with overlying gas and stool limiting evaluation. Symphysis pubis intact. No acute pelvic fracture seen, evaluation limited by bowel gas and stool. Phleboliths in the pelvis. XR/XR hip LT w PEL 1V IMPRESSION: Left hip: No radiographic evidence of acute osseous abnormality. Pelvis: Left SI joint arthritis. Possible right SI joint arthritis. Mild right hip osteoarthritis.. Study is assigned/presented to me for interpretation on Sep 02, 2024 Electronically signed by: Nic Hansen MD 09/02/2024 09:21 AM MIHIR
== END 2024-07-27 14:16 | disposition home or self-care (01) ==
LOC: HO.HOSX 14:15
PROVIDERS: Visit Provider Physician Assistant
DX: M25.562 Pain in left knee (principal)
CPT/HCPCS: 73502; 99212

== ENCOUNTER 2024-08-24 11:51 | Outpatient (REF) | payer OTHER, SELFPAY ==
[2022-10-22 13:00] VITALS: BP 128/72; BP 148/88; BMI 63.7
[2023-01-30 14:13] VITALS: BP 140/60
[2024-08-24 13:20] LABS: Hematocrit 40.8 % (37.0-47.0); Hemoglobin 13.3 g/dl (12.0-16.0); Mean Corpuscular HGB Conc 32.6 g/dl (31.0-35.0); Mean Corpuscular Hemoglobin 30.4 pg (27.0-33.0); Mean Corpuscular Volume 93.2 fL (80.0-98.0); Mean Platelet Volume 10.2 fL (9.4-12.3); Platelet Count 293 X10*3/uL (160-400); Red Blood Count 4.38 X10*6/uL (4.20-5.50); Red Cell Distribution Width 14.6 % (11.0-16.0); White Blood Count 9.1 X10*3/uL (4.8-10.8)
[2024-08-24 13:34] LABS: Estimated Average Glucose 126 mg/dL; Hemoglobin A1C 143.3633 umol/L
[2024-08-24 14:17] LABS: Alanine Aminotransferase 30 U/L (0-31); Albumin Level 3.6 g/dL (3.5-5.0); Alkaline Phosphatase 96 U/L (39-117); Anion Gap 7 (12-20); Aspartate Amino Transferase 29 U/L (5-31); Bilirubin Direct 0.2 mg/dL (0.0-0.5); Bilirubin Total 0.4 mg/dL (0.0-1.0); Blood Urea Nitrogen 15 mg/dL (9-16); Calcium 9.2 mg/dL (8.4-10.2); Carbon Dioxide 26 mmol/L (22-29); Chloride 112 mmol/L (96-108); Cholesterol 136 mg/dL (<200); Estimated Glomerular Filt Rate > 60; Glucose Random 111 mg/dL (60-115); HDL Cholesterol 39 mg/dL (>40); LDL Cholesterol Calculated 81 mg/dL (<100); Potassium 4.2 mmol/L (3.3-5.1); Sodium 141 mmol/L (135-145); Thyroid Stimulating Hormone 1.83 uIU/mL (0.32-4.0); Total Protein 7.5 g/dL (6.5-8.0); Triglycerides 82 mg/dL (<150)
[2024-08-24 14:18] LABS: Free T4 (Free Thyroxine) 0.89 ng/dL (0.71-1.85); Vitamin D 25-OH Total 19.8 ng/mL (>30)
== END 2024-08-24 11:52 | disposition home or self-care (01) ==
LOC: HO.HHCL 11:51
PROVIDERS: Internal Medicine Nephrology; Visit Provider Family Medicine
DX: Z00.00 Encounter for general adult medical examination without abnormal findings (principal); N20.0 Calculus of kidney; I10 Essential (primary) hypertension; E78.49 Other hyperlipidemia; K76.0 Fatty (change of) liver, not elsewhere classified; R73.03 Prediabetes; F33.9 Major depressive disorder, recurrent, unspecified; D72.829 Elevated white blood cell count, unspecified; G43.909 Migraine, unspecified, not intractable, without status migrainosus; J45.30 Mild persistent asthma, uncomplicated; R10.13 Epigastric pain; M54.50 Low back pain, unspecified; G89.29 Other chronic pain; M25.561 Pain in right knee; M25.562 Pain in left knee; L81.1 Chloasma; L73.2 Hidradenitis suppurativa; G47.33 Obstructive sleep apnea (adult) (pediatric); M25.552 Pain in left hip; B35.3 Tinea pedis; N61.1 Abscess of the breast and nipple; R49.0 Dysphonia; H91.91 Unspecified hearing loss, right ear; Z68.43 Body mass index [BMI] 50.0-59.9, adult; Z12.11 Encounter for screening for malignant neoplasm of colon
CPT/HCPCS: 36415; 80048; 80061; 80076; 82306; 83036; 84439; 84443; 85027

== ENCOUNTER 2024-08-27 10:59 | Outpatient (AMB) | payer OTHER, SELFPAY ==
[2022-10-22 13:00] VITALS: BP 128/72; BP 148/88; BMI 63.7
[2023-01-30 14:13] VITALS: BP 140/60
[2024-08-27 11:14] VITALS: BP 126/74; PULSE 61; O2SAT 97; BMI 57.8
--- NOTE | 2024-08-27 11:14 | HO.NEPHOV ---
Vital Signs 08/27/24 11:14 Height 5 ft 7 in Weight 369 lb BMI 57.8 BP 126/74 Blood Pressure Location Rt radial Position Sitting Pulse 61 Pulse Source Pulse Oximeter Pulse Oximetry (%) 97 Oxygen Delivery Method Room Air Intake Visit Reasons: Multiple renal calculi- Conf w/daughter Sales Compensation Analyst Required: Yes Sales Compensation Analyst Name: Christina [id number] Accompanied by: Self / Same As Patient Allergies penicillin G [PENICILLIN G] Allergy (Severe, Verified 08/27/24 11:18) DIFFICULTY BREATHING semaglutide [From Ozempic] Adverse Reaction (Severe, Verified 08/27/24 11:18) Stomach Upset HPI Comments Details: Blaire is a delightful 49 year old patient with multiple medical issues including multiple renal calculi. She is hypertensive and is on ACEI . She is on Topamax. She is diabetic and is on medications . She has no H/O proteinuria. She has no flank pain, nausea, vomiting, supra pubic pain, hematuria, fever, chills or rigor. Her BP is well controlled and she does not take excess NSAID's. She tries to maintain good hydration. Her renal functions have been normal [facility] Medical History Morbid obesity Hidradenitis suppurativa CAD (coronary artery disease) Subsequent non-ST elevation myocardial infarction (NSTEMI) within 4 weeks of initial infarction Non-ST elevation [place] (NSTEMI) YAMILETH on CPAP Hyperlipidemia PTSD (post-traumatic stress disorder) Fatty liver Smoker Depression Obesity Leukocytosis Frequent UTI Asthma Mass of throat Chronic pain Kidney stone Migraine HTN (hypertension) Surgical History H/O excision of mass (06/28/24) Hx of cystoscopy Stented coronary artery History of heart artery stent History of lumpectomy of left breast (10/22/21) History of lithotripsy History of endometrial ablation Hx of colonoscopy History of breast lump/mass excision History of tonsillectomy H/O: hysterectomy Family History Father Hypertension Mother Hypertension Osteoporosis Hx of bilateral cataract extraction Paternal Grandmother Diabetes Sister Asthma Maternal Uncle Throat cancer Maternal Aunt Ovarian cancer Breast cancer Social History Household Members: Children Housing: Apartment Are you a primary resident care coordinator to a significant other at home: No Do you presently have visiting nurse or other home services: Yes (THEATER MANAGER-daughter) Alcohol intake: never Comment: pt refusing alarms Patient Tobacco Use Status: Current everyday Tobacco user Tobacco use type: Cigarette Cigarette Packs Per Day: 0.5 Cigarettes Per Day: 10 Years Smoked: 30 Second Hand Smoke Exposure: No Advance Directives Date on File: 10/28/22 service: No Current occupational status: unemployed Review of Systems Const All systems reviewed & are unremarkable except as noted in HPI and below Physical Exam Vital Signs: Last Vital Signs Pulse 61 08/27/24 11:14 BP 126/74 08/27/24 11:14 Pulse Ox 97 08/27/24 11:14 Oxygen Delivery Method Room Air 08/27/24 11:14 BMI result Body Mass Index 57.8 Const General: comfortable and no acute distress Orientation/consciousness: patient oriented x3 HEENT Head: Yes normocephalic Mouth: Normal oral and palatal mucosa present Eyes EOM: EOMs intact bilaterally Neck Neck: Yes supple Resp Auscultation: clear to auscultation bilaterally Cardio Jugular venous distension: no JVD Rate: regular rate GI Palpation (GI): Soft to palpation Auscultation: normal bowel sounds General: Yes no CVA tenderness Back/Spine/Pelvis Back: no CVA tenderness Skin General skin exam: no rashes or lesions noted Neuro General: patient oriented x3 and moves all extremities Extrem General: Yes no pedal edema Results Reviewed Nephrology Results: Hgb 13.3 g/dl (12.0-16.0) 08/24/24 WBC 9.1 X10*3/uL (4.8-10.8) 08/24/24 Plt Count 293 X10*3/uL (160-400) 08/24/24 Sodium 141 mmol/L (135-145) 08/24/24 Potassium 4.2 mmol/L (3.3-5.1) 08/24/24 Chloride 112 mmol/L (96-108) H 08/24/24 Carbon Dioxide 26 mmol/L (22-29) 08/24/24 BUN 15 mg/dL (9-16) 08/24/24 Creatinine 0.82 mg/dL (0.5-1.4) 08/24/24 Calcium 9.2 mg/dL (8.4-10.2) 08/24/24 Assessment & Plan Assessment & Plan (1) Nephrolithiasis: Comment: Calcium oxalate Code(s): N20.0 - Calculus of kidney Category: Medical (2) Hypercalciuria: Code(s): R82.994 - Hypercalciuria Category: Medical (3) Hyperoxaluria: Code(s): R82.992 - Hyperoxaluria Category: Medical Plan She is known to have calcium oxalate renal calculi. I reiterated the need to keep up with good hydration, lessen Na in the diet and consume less meat and have more fruits & vegetables. She needs to be on a low oxalate diet. She could continue HCTZ, dose of which I shall titrate with time. She may be candidate for K citrate. Her BP is currently well controlled on current medication regimen. I plan to do a 24 hour urine collection for stone screen as well as protein later along with serum uric acid as well as calcium.All questions answered . F/U given Orders: Orders Blood Urea Nitrogen 3 Months N20.0 - Calculus of kidney, R82.992 - Hyperoxaluria, R82.994 - Hypercalciuria Electrolytes 3 Months N20.0 - Calculus of kidney, R82.992 - Hyperoxaluria, R82.994 - Hypercalciuria Creatinine 3 Months N20.0 - Calculus of kidney, R82.992 - Hyperoxaluria, R82.994 - Hypercalciuria Coding Level of Care Code Est Pt Level 4 (90648) Diagnoses Nephrolithiasis N20.0 Hypercalciuria R82.994 Hyperoxaluria R82.992
== END 2024-08-27 11:33 | disposition home or self-care (01) ==
PROVIDERS: PCP Family Medicine; Visit Provider Internal Medicine Nephrology
DX: N20.0 Calculus of kidney (principal); R82.994 Hypercalciuria; R82.992 Hyperoxaluria
CPT/HCPCS: 99214

== ENCOUNTER → 2024-08-27 10:59 | Outpatient (BNVA) | payer OTHER, SELFPAY ==
[2022-10-22 13:00] VITALS: BP 128/72; BP 148/88; BMI 63.7
[2023-01-30 14:13] VITALS: BP 140/60
== END ==
PROVIDERS: PCP Family Medicine; Visit Provider Internal Medicine Nephrology
DX: N20.0 Calculus of kidney (principal); R82.994 Hypercalciuria; R82.992 Hyperoxaluria
CPT/HCPCS: 99212

== ENCOUNTER 2024-08-31 08:36 | Outpatient (AMB) | payer OTHER, SELFPAY ==
[2022-10-22 13:00] VITALS: BP 128/72; BP 148/88; BMI 63.7
[2023-01-30 14:13] VITALS: BP 140/60
--- NOTE | 2024-08-31 08:38 | MHC.OFFVIS ---
Vital Signs 08/31/24 08:43 Height 5 ft 7 in Weight 369 lb 0.014 oz BMI 57.8 Intake Visit Reasons: wound check, s/p exc bilateral breast cyst Intake Note: [facility] of bilateral breast cyst. Pt c/o: reports no sensation in her nipple, reports she had alot of discharge and thinks an infection, reports at this time she has a scab on the area with minimal discharge. upcoming surgery on: 09/15/24 (Rt lumpectomy) Measuring Clerk Required: No Accompanied by: Daughter Allergies penicillin G [PENICILLIN G] Allergy (Severe, Verified 08/31/24 08:45) DIFFICULTY BREATHING semaglutide [From Ozempic] Adverse Reaction (Severe, Verified 08/31/24 08:45) Stomach Upset HPI Comments Details: Patient returns for wound check of her right breast wound. She had developed a large scab with bleeding and discharge following the surgery. Arrangements were made for revision of the surgery however currently the wound has nearly completely healed with only a small residual opening left. She does report some numbness in the nipple. She denies any further purulent discharge. She would like to cancel the upcoming surgery. [facility] Medical History Morbid obesity Hidradenitis suppurativa CAD (coronary artery disease) Subsequent non-ST elevation myocardial infarction (NSTEMI) within 4 weeks of initial infarction Non-ST elevation [place] (NSTEMI) YAMILETH on CPAP Hyperlipidemia PTSD (post-traumatic stress disorder) Fatty liver Smoker Depression Obesity Leukocytosis Frequent UTI Asthma Mass of throat Chronic pain Kidney stone Migraine HTN (hypertension) Surgical History H/O excision of mass (06/28/24) Hx of cystoscopy Stented coronary artery History of heart artery stent History of lumpectomy of left breast (10/22/21) History of lithotripsy History of endometrial ablation Hx of colonoscopy History of breast lump/mass excision History of tonsillectomy H/O: hysterectomy Family History Father Hypertension Mother Hypertension Osteoporosis Hx of bilateral cataract extraction Paternal Grandmother Diabetes Sister Asthma Maternal Uncle Throat cancer Maternal Aunt Ovarian cancer Breast cancer Social History Household Members: Children Housing: Apartment Are you a primary resident care director to a significant other at home: No Do you presently have visiting nurse or other home services: Yes (PATTERNMAKER BENCH-daughter) Alcohol intake: never Comment: pt refusing alarms Patient Tobacco Use Status: Current everyday Tobacco user Tobacco use type: Cigarette Cigarette Packs Per Day: 0.5 Cigarettes Per Day: 10 Years Smoked: 30 Second Hand Smoke Exposure: No Advance Directives Date on File: 10/28/22 service: No Current occupational status: unemployed Review of Systems Const All systems reviewed & are unremarkable except as noted in HPI and below Physical Exam Vital Signs: BMI result Body Mass Index 57.8 Const General: no acute distress Nutritional Appearance: well nourished Orientation/consciousness: patient oriented x3 Limitations: no limitations Chest Other: Curvilinear incision around the areola at the upper inner quadrant right breast is 95% healed with 1 small area of residual separation. There is granulation tissue at the base and no evidence of underlying infection or necrotic tissue. No foreign bodies appreciated. Chest/axillae images: 1. Site of open residual wound proximally 2 mm diameter. The remaining incision is clean and intact, well healed Skin Other: Breast lesions as noted above. Neuro General: patient oriented x3 Assessment & Plan Assessment & Plan (1) Left breast mass: Code(s): N63.20 - Unspecified lump in the left breast, unspecified quadrant Category: Medical Plan Wounds are now much improved with no further bleeding or discharge. We will hold off on surgery and patient is welcome to call as needed. Coding Level of Care Code Est Pt Level 3 (55647) Diagnoses Left breast mass N63.20
[2024-08-31 08:43] VITALS: BMI 57.8
== END 2024-08-31 09:06 | disposition home or self-care (01) ==
PROVIDERS: PCP Family Medicine; Visit Provider Surgery
DX: N63.20 Unspecified lump in the left breast, unspecified quadrant (principal)
CPT/HCPCS: 99213

== ENCOUNTER → 2024-08-31 08:36 | Outpatient (BNVA) | payer OTHER, SELFPAY ==
[2022-10-22 13:00] VITALS: BP 128/72; BP 148/88; BMI 63.7
[2023-01-30 14:13] VITALS: BP 140/60
== END ==
PROVIDERS: PCP Family Medicine; Visit Provider Surgery
DX: N63.20 Unspecified lump in the left breast, unspecified quadrant (principal); Z98.890 Other specified postprocedural states
CPT/HCPCS: 99212

== ENCOUNTER 2024-09-17 10:29 | Outpatient (REF) | payer OTHER, SELFPAY ==
[2022-10-22 13:00] VITALS: BP 128/72; BP 148/88; BMI 63.7
[2023-01-30 14:13] VITALS: BP 140/60
--- NOTE | ~2024-09-17 | XR_ITS ---
CLINICAL HISTORY: M53.3 - Sacrococcygeal disorders, not elsewhere classified 3 views sacroiliac joints Comparison: None Findings No acute fractures. No significant degenerative change. No erosions. IMPRESSION: No acute findings This document has been electronically signed by: Mann Garcia MD on 09/17/2024 17:59:37
--- NOTE | ~2024-09-17 | XR_ITS ---
CLINICAL HISTORY: M25.551 - Pain in right hip 2 view, pelvis and right hip Comparison: None Findings: No acute fracture or dislocation. No significant arthritic change. The soft tissues are unremarkable. IMPRESSION: No acute findings. This document has been electronically signed by: Mann Garcia MD on 09/17/2024 17:59:52
--- OUTSIDE RECORDS SUMMARY | 2024-09-17 11:41 | XMS_ITS | Encounter Summary ---
Author Organization [facility] Address [address] [place] [address] 7 [place] [address] Care Team Providers Care Machine Grainer Name Role Phone Carmen Bertrand DO Primary Care Provider [phone] Encounter Details Date Type Department Care Team (Late st Contact Info) Description 09/09/2022 Orders Only [facility] [address] [place] [id number] Azul Albrecht LPN Social History Tobacco Use Types Packs/Day Years Used Date Smoking Tobacco: Never Assessed Comments Unknown Sex and Gender Information Value Date Recorded Sex Assigned at Female 06/17/2022 10:17 AM EDT Legal Sex Female 10:17 AM EDT Gender Identity Female 06/17/2022 10:17 AM EDT Sexual Orientation Straight 06/17/2022 10 :17 AM EDT documented as of this encounter Plan of Treatment Upcoming Encounters Date Type Department Care Team (Late st Contact Info) Description 10/20/2024 2:30 PM EST Office Visit [facility] [address] [place] [address] Tova Saucedo, OD [address] [place] [address] 10/21/2024 1:30 PM EST Clinical Support [facility] [address] [place] [phone] 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 RN documented as of this encounter Visit Diagnoses Not on filedocumented in this encounter Care Teams Machine Grainer Relationship Specialty Start Date End Date Carmen Bertrand DO [address] [place] [address] PCP - General Family Medicine 08/18/18 documented as of this encounter
--- OUTSIDE RECORDS SUMMARY | 2024-09-17 11:41 | XMS_ITS | Encounter Summary ---
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 Name Role Phone Carmen Bertrand DO Primary Care Provider [phone] Encounter Details Date Type Department Care Team (Late st Contact Info) Description 08/13/2022 Orders Only [facility] MED & PEDS [address], [place] [phone] Carmen Perez LPN Social History Tobacco Use Types Packs/Day [...] Description 10/20/2024 2:30 PM EST Office Visit [facility] OPTOMETRY [address] [place] [address] Tova Saucedo, OD [address] [place] [address] 10/21/2024 1:30 PM EST Clinical Support [facility] MEDICINE [address] [place] [address] 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 RN documented as of this encounter Visit Diagnoses Not on filedocumented in this encounter Care Teams Upsetting Machine Operator Relationship Specialty Start Date End Date Carmen Bertrand DO [address] [place] [address] PCP - General Family Medicine 08/18/18 documented as of this encounter
--- OUTSIDE RECORDS SUMMARY | 2024-09-17 11:41 | XMS_ITS | Clinical Summary ---
Author Organization [employer] Address [address] [place] [address] [address] [place] [address] Care Team Providers Care Information Technology Specialist Name Role Phone ElzaCarmen Primary Care Provider [phone] Allergies Active Allergy Reactions Criticality Noted Date Comments Aspirin Anaphylaxis High Completed aspirin desensitization 05/2022 Penicillin G Shortness of breath High 02/13/2023 Other reaction(s): DIFFICULTY BREATHING Penicillin V Anaphylaxis High Semaglutide High 10/29/2023 Other Reaction(s): Stomach Upset stomach upset + teeth loss Medications allopurinol (Zyloprim) 100 MG tablet TAKE 1 TABLET BY MOUTH DAILY 022 Active pyridoxine (Vitamin B-6) 100 MG tablet TAKE 1 TABLET BY MOUTH EVERY DAY 022 Active ezetimibe (Zetia) 10 MG tablet TAKE 1 TABLET BY MOUTH EVERY DAY 023 Active mirtazapine (Remeron) 7.5 MG tablet TAKE 1 TABLET BY MOUTH AT BEDTIME, Ya no tomes quetiapine o paroxetine 023 Active albuterol (2.5 MG/3ML) 0.083% nebulizer solutionIndicatio ns:Mild persistent asthma without complication INHALE 1-2 AMPULE USING A NEBULIZER EVERY 4 TO 6 HOURS NEEDED FOR COUGH, WHEEZING, OR SHORTNESS OF BREATH 90 mL 3 023 Active baclofen (Lioresal) 10 MG tabletIndications :Chronic low back pain, unspecified back pain laterality, unspecified whether sciatica present TAKE 1 TABLET BY MOUTH THREE TIMES DAILY NEEDED FOR MUSCLE SPASMS 60 tablet 2 023 Active albuterol (Ventolin HFA) 108 (90 Base) MCG/ACT inhalerIndication s:Mild persistent asthma without complication INHALE 2 PUFFS BY MOUTH EVERY 4 TO 6 HOURS NEEDED 18 g 023 Active omeprazole (PriLOSEC) [address] capsule Take 2 capsules (40 mg) by mouth before breakfast and before evening meal. Do not crush or chew. 120 capsule 11 023 Active atorvastatin (Lipitor) 80 MG tablet TAKE 1 TABLET BY MOUTH EVERY DAY 90 tablet 3 023 Active bismuth-metroNIDA ZOLE-tetracycline (Pylera) 140-125-125 MG capsuleIndication s:H. pylori infection Take 3 capsules by mouth before breakfast, before lunch, before evening meal, and at bedtime for 14 days. Follow each dose with 8 oz of water. 168 capsule Active naloxone (Narcan) 4 mg/0.1 mL nasal sprayIndications: Chronic pain of both knees Administer 1 spray (4 mg) into affected nostril(s) if needed for opioid reversal. May repeat every 2-3 minutes if needed, alternating nostrils, until medical assistance becomes available. 2 each 3 024 2024 Active topiramate 50 MG tabletIndications :Nonintractable headache, unspecified chronicity pattern, unspecified headache type TAKE 1 Tablet BY MOUTH TWICE DAILY 60 tablet 5 Active D3 Super Strength 50 MCG (2000 UT) capsule TAKE 1 CAPSULE BY MOUTH ONCE DAILY 90 capsule 3 Active fluticasone (Flonase) 50 MCG/ACT nasal spray INSTILL 2 SPRAYS IN EACH NOSTRIL ONCE DAILY 48 g 3 Active fluticasone (Flovent) 110 MCG/ACT inhaler INHALE 2 PUFFS TWICE DAILY IN THE MORNING AND AT BEDTIME. RINSE MOUTH AFTER USING. DO NOT SWALLOW. 12 g Active metoprolol succinate XL (Toprol-XL) 50 MG 24 hr tabletIndications :Hypertension, unspecified type TAKE 1 TABLET BY MOUTH ONCE DAILY 90 tablet 1 Active isosorbide mononitrate ER (Imdur) 60 MG 24 hr tablet Take 1 tablet (60 mg) by mouth Once per day. Do not crush or chew. 30 tablet 11 Active chlorhexidine (Hibiclens) 2 % external liquid Apply topically Once per day. Apply topically daily x one week then use as needed 236 mL 2 Active metroNIDAZOLE (Metrogel) 0.75 % gelIndications:Me lasma APPLY TOPICALLY TO THE AFFECTED AREA(S) ON FACE EVERY DAY NEEDED 45 g 1 Active Brilinta 90 MG tablet TAKE 1 TABLET TWICE DAILY 60 tablet 1 Active Blood Pressure kit 1 each 1 (one) time per week. 1 kit Active emtricitabine-ten ofovir DF (Truvada) 200-300 MG tabletIndications :On pre-exposure prophylaxis for HIV TAKE 1 TABLET BY MOUTH EVERY DAY 30 tablet 2 Active famotidine (Pepcid) 40 MG tablet TAKE 1 TABLET BY MOUTH EVERY DAY AT BEDTIME NEEDED FOR HEARTBURN 30 tablet 3 Active benzoyl peroxide (PanOxyl Foaming Wash) 10 % external washIndications:F olliculitis Apply topically Once per day. 227 g 2 024 2024 Active hydroquinone 4 % creamIndications: Acanthosis nigricans Apply topically 2 times daily. 28.35 g 1 024 2024 Active metFORMIN XR (Glucophage-XR) 500 MG 24 hr tablet Take 2 tablets (1,000 mg) by mouth with evening meal. 180 tablet 3 Active aspirin (Aspirin Low Dose) 81 MG chewable tabletIndications :Hyperlipidemia, unspecified hyperlipidemia type CHEW 1 TABLET BY MOUTH EVERY DAY IN THE MORNING 90 tablet Active hydroCHLOROthiazi de 12.5 MG tablet Take 1 tablet by mouth Once per day. Active lisinopril 30 MG tablet Take 1 tablet (30 mg) by mouth Once per day. 30 tablet 11 025 2025 Active Tirzepatide-Weigh t Management (Zepbound) 2.5 MG/0.5ML solution auto-injector Inject 0.5 mL (2.5 mg) under the skin 1 (one) time per week. 2 mL 3 025 2025 Active ergocalciferol (Vitamin D2) 1.25 MG (87744 UT) capsule Take 1 capsule (1.25 mg) by mouth 1 (one) time per week. 12 capsule 025 Active econazole nitrate 1 % cream APPLY TOPICALLY TO AFFECTED AREA(S) TWICE DAILY DIRECTED 85 g 1 025 Active traMADol (Ultram) 50 MG tabletIndications :Chronic low back pain, unspecified back pain laterality, unspecified whether sciatica present TAKE 1 TABLET BY MOUTH EVERY 8 HOURS NEEDED FOR SEVERE PAIN 84 tablet 025 Active econazole nitrate 1 % cream APPLY TOPICALLY TO THE AFFECTED AREA(S) TWICE DAILY DIRECTED FOR 28 DAYS 85 g 1 024 2024 Discontinued lisinopril 40 MG tablet Take 1 tablet (40 mg) by mouth Once per day. 30 tablet 11 024 2024 Discontinued(D ose adjustment) traMADol (Ultram) 50 MG tabletIndications :Chronic low back pain, unspecified back pain laterality, unspecified whether sciatica present TAKE 1 TABLET BY MOUTH EVERY 8 HOURS NEEDED FOR SEVERE PAIN FOR UP TO 28 DAYS 84 tablet 024 2024 Discontinued Active Problems Problem Noted Date Diagnosed Date CAD (coronary artery disease) 08/24/2024 Overview (08/24/2024): Lad stent S/P cardiac catheterization 08/24/2024 Overview (08/24/2024): 10/28/2022, left main normal, lad mild plaque proximal to the stent, stent patent, left circumflex and RCA normal Precordial pain 01/27/2024 Assessment & Plan (01/27/2024 7:00 PM EDT): Patient has atypical CP, which is similar to the one she had last year during ischemic event. At this time she's completely asymptomatic and doesn't have any exertional sxs when she went to collect urine to the restroom and there are no other findings c/w with ACS. I explained to patient and her daughter that given recent stress test results, I would advise for her to go to ED for additional evaluation (I.e troponins) and ro ACS. They agreed to go later for further evaluation. They're aware that if she develops any sxs again with or w/o exertion, she needs to go immediately to ED. They will schedule a fu appt with cardiology to fu stress test. Advised to take meds daily as rx and quit smoking Chronic pain of both knees 01/05/2024 Osteoarthritis of knees, bilateral 02/21/2023 Coronary arteriosclerosis 02/21/2023 Chronic low back pain 02/21/2023 Leukocytosis 02/21/2023 Hirsutism 02/21/2023 Melasma 02/21/2023 Nephrolithiasis 09/19/2022 Fatty liver 09/19/2022 BMI 50.0-59.9, adult 09/19/2022 Prediabetes 09/19/2022 Tobacco dependence 09/19/2022 History of non-ST elevation myocardial infarctio n (NSTEMI) 09/19/2022 Chronic migraine 09/19/2022 Hyperlipidemia 09/19/2022 Microscopic hematuria 09/09/2022 Essential hypertension 06/05/2015 Mild persistent asthma 06/05/2015 Obstructive sleep apnea 06/05/2015 Posttraumatic stress disorder 06/05/2015 Major depression, recurrent, chronic 06/05/2015 Assessment & Plan (09/19/2022 1:24 PM EST): With PTSD -she denies any current SI/HI -she has the number for crisis and contracts for safety -cont current med regimen as per psychiatry -f/u with therapist and psychiatrist as scheduled Resolved Problems Problem Noted Date Diagnosed Date Resolved Date Acute non-ST segment elevati on myocardial infarction 06/12/2022 09/19/2022 Migraine without aura, not refractory 09/27/2016 09/19/2022 Kidney stone 06/05/2015 09/19/2022 Steatosis of liver 06/05/2015 Tobacco dependence syndrome 06/05/2015 09/19/2022 Encounters Date Type Department Care Team Description 09/17/2024 Refill [facility] [address] [place] [address] Carmen Bertrand DO 09/15/2024 Telephone [facility] [address] [facility] [place] [address] Carmen Bertrand DO Appointment Request 09/08/2024 Telephone [facility] [address] [place] [address] Carmen Bertrand DO Paperwork/Forms 09/07/[address] [address] Carmen Bertrand DO Chronic low back pain, unspecified back pain laterality, unspecified whether sciatica present 09/05/2024 Refill [facility] [address] [place] [address] Carmen Bertrand DO 08/31/[address] [address] Trista Alford RN 08/30/[address] [address] Carmen Bertrand DO Prior Authorization 08/24/2024 10:45 AM EST Office Visit [place] [address] Carmen Bertrand DO Essential hypertension (Primary Dx); Other hyperlipidemia; Fatty liver; Prediabetes; Major depression, recurrent, chronic (CMS/HCC); Leukocytosis, unspecified type; Chronic migraine; Mild persistent asthma without complication; Nephrolithiasis; Epigastric pain; Chronic bilateral low back pain without sciatica; Chronic pain of both knees; YAMILETH (obstructive sleep apnea); Tinea pedis of left foot; Breast abscess; Hoarseness; Decreased hearing of right ear; Healthcare maintenance; BMI 50.0-59.9, adult (CMS/HCC); Encounter for screening for malignant neoplasm of colon; Screening for colon cancer 08/24/2024 Travel 08/13/2024 10:15 AM EST Office Visit [facility] [address] [place] [address] Alexandra Lisa MD Acanthosis nigricans (Primary Dx); Folliculitis 08/13/2024 Refill [facility] [address] [place], [place] [id number] Carmen Bertrand DO Hyperlipidemia, unspecified hyperlipidemia type 08/13/2024 Refill [facility] [address] [place] [address] Carmen Bertrand DO Chronic low back pain, unspecified back pain laterality, unspecified whether sciatica present; Hyperlipidemia, unspecified hyperlipidemia type 08/13/2024 Travel 08/04/2024 Refill [facility] [address] [place] [address] Ирина Mckeon MD 08/04/2024 Refill [facility] [address] [place] [address] Carmen Bertrand DO On pre-exposure prophylaxis for HIV 07/23/2024 10:15 AM EST Office Visit [facility] [address] [place] [address] Carmen Bertrand DO Wound of right breast, initial encounter (Primary Dx); Essential hypertension; Obstructive sleep apnea 07/23/2024 Telephone [facility] [address] [place] [address] Radha Manley, MyahD BP machine 07/23/2024 Telephone [facility] [address] [place] [address] Carmen Bertrand DO 07/23/2024 Travel 07/22/2024 Refill [facility] [address] [place] [address] Carmen Bertrand DO Melasma 07/20/2024 11:30 AM EST Clinical Support [facility] [address] [place] [address] 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, photonics engineering technologist bilateral low back pain without sciatica (Primary Dx) 07/20/2024 Telephone [facility] [address] [place] [phone] 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, RN Tier 2 recomended; BPI Scoring 07/20/2024 Travel 07/20/2024 Refill [facility] [address] [place] [address] Carmen Bertrand DO 07/12/2024 Refill [facility] [address] [place] [address] Carmen Bertrand DO Chronic low back pain, unspecified back pain laterality, unspecified whether sciatica present 07/09/2024 Patient Outreach [facility] [address] [place] [address] Carmen Bertrand DO Pre-visit Planning (SDOH screening was completed on 04/27/2024) 07/01/2024 Travel 06/28/2024 Refill [facility] [address] [place] [address] Carmen Bertrand DO 06/28/2024 Orders Only GENERIC EXTERNAL DATA DEPARTMENT Provider, Generic External Data from Last 3 Months Immunizations Name Administration Dates Next Due Hep B, adult 01/08/2017, 6,06/20/2016,11/09,08/31/2012,03/18/2012,10/31/2005 Influenza injectable quadriv alent IIV4 with preservative 06/26/2018,09/23/2017,06/05/2015 Influenza injectable quadriv alent preservative free 05/07/2022,05/21/2021,05/19/2020,06/01 Influenza, IIV3, injectable 05/07/2022,1 ,05/19/2020,06/01,06/26/2018,09/23/2017,06/05/2015 ,05/13/2014,06/13/2011,05/08/2007 Influenza, Split (incl. manuela fied surface antigen) 06/17/2013,08/31/2012 Influenza, seasonal, injecta ble, preservative free 05/26/2024 Moderna Covid-19 Vaccine 12+ 06/07/2021,01/30/20 21 Pneumococcal Conjugate PCV 20 02/21/2023 Pneumococcal Polysaccharide PPSV23 06/13/2011 TD (adult), 2 Lf tetanus tox oid, preservative free, adsorbed 05/21/2021 Td (adult), unspecified 05/21/2021 Tdap 06/13/2011 Social History Tobacco Use Types Packs/Day Years Used Date Smoking Tobacco: Every Day Cigarettes Passive Smoke Exposure: Current Smokeless Tobacco: Never Tobacco Cessation:Ready to Q uit: Not Asked; Counseling Given: Not Answered Alcohol Use Standard Drinks/Week Comments Never 0 (1 standard drink = 0.6 oz pur e alcohol) Depression Answer Date Recorded Patient Health Questionnaire-9 Score 22 04/27/2024 Patient Health Questionnaire-9 Score 22 04/27/2024 Last PHQ-9: Questionnaire Data Not on file 0 04/27/2024 Housing Stability Answer Date Recorded What is your housing situation today? I have pravinnevaeh amin 04/27/[address] you li ve. Do you have problems with any of the following? Oven or stove not working 04/27/2024 Food Insecurity Answer Date Recorded Within the past 12 months, y ou worried that your food would run out before you got money to buy more: Sometimes True 2023 Within the past 12 months,th e food you bought just didn't last and you didn't have enough money to get more: Sometimes True 11/18/2023 Transportation Answer Date Recorded In the past 12 months, has l ack of transportation kept you from medical appts, meetings, work or from getting things needed for daily living? No 11/18/2023 Utilities Answer Date Recorded In the past 12 months, has t he electric, gas, oil or water company threatened to shut off services in your home? No 11/18/2023 Depression Answer Date Recorded Patient Health Questionnaire-2 Score 5 04/27/2024 Internet Access Answer Date Recorded Internet Access Q1 Yes 04/27/2024 Internet Access Q2 Not on file 04/27/2024 Comments Unknown Sex and Gender Information Value Date Recorded Sex Assigned at Female 06/17/2022 10:17 AM EDT Legal Sex Female 10:17 AM EDT Gender Identity Female 06/17/2022 10:17 AM EDT Sexual Orientation Straight 06/17/2022 10 :17 AM EDT Last Filed Vital Signs Vital Sign Reading Time Taken Comments Blood Pressure 128/78 08/24/2024 1:06 PM EST Pulse 89 08/24/2024 10:03 AM EST Temperature 36 ??C (96.8 ??F) 08/24/2024 10:03 AM EST Respiratory Rate 20 08/24/2024 10:03 AM EST Oxygen Saturation 98% 04/27/2024 10:58 AM EDT Inhaled Oxygen Concentration - - Weight 168 kg (370 lb) 08/24/2024 10:03 AM EST Height 170.2 cm (5' 7 ) 08/24/2024 10:03 AM EST Body Mass Index 57.95 08/24/2024 10:03 AM EST Plan of Treatment Upcoming Encounters Date Type Department Care Team (Late st Contact Info) Description 10/20/2024 2:30 PM EST Office Visit [facility] [address] [place] [address] Lewis, Tova, OD [address] [place] [address] 10/21/2024 1:30 PM EST Clinical Support [facility] [address] [place], [place] [phone] 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, RN Health Maintenance Due Date Last Done Comments CT Colonography 1976 Colonoscopy 1976 FIT 1976 FOBT 1976 Sigmoidoscopy 1976 Family Planning (PISQ) 1991 Hepatitis A Vaccines (1 of 2 - Risk 2-dose series) 1995 COVID-19 Vaccine ( season) 2024 06/07/2021, 01/29/2021 Depression Monitoring (PHQ-9) 10/25/2024 04/27/2024, 04/27/2024 Depression Screening 04/27/2025 04/27/2024, 04/27/20 24 SDOH Screening 04/27/2025 04/27/2024 Alcohol/Substance Use Screening 07/23/2025 07/23/2024 Tobacco Screening 07/23/2025 07/23/2024 Diabetes: Hemoglobin A1C 08/24/2025 025, 04/27/2024, 04/27/2024, Additional history exists Zoster Vaccines (1 of 2) 2026 Mammogram 06/02/2026 06/02/2024, 04/18, 03/27/2023, Additional history exists Colorectal Cancer Screening 08/31/2027 FIT DNA/Cologuard 08/31/2027 08/31/2024 Lipid Panel 08/24/2029 08/24/2024, 04/18, 10/21/2023, Additional history exists DTaP/Tdap/Td Vaccines (4 - Td or Tdap) 05/21/2031 05/21/2021, 05/21/2021, 06/13/2011 RSV Patients and Patients Aged 60 years or older (1 - 1-dose 75+ series) 2051 Hepatitis B Vaccines Completed 01/08/2017, 07/23/2016, 06/20/2016, Additional history exists HIV Screening Completed 02/21/2023, 04/19, 06/15/2021, Additional history exists Pneumococcal Vaccine: Pediatrics (0 to 5 Years) and At-Risk Patients (6 to 49) Years) Completed 02/21/2023, 06/13/2011 Hepatitis C Screening Completed 04/27/2024 , 02/21/2023, 05/14/2022, Additional history exists Influenza Vaccine Completed 05/26/2024, , 05/07/2022, Additional history exists HIB Vaccines Aged Out No longer eligi ble based on patient's age to complete this topic HPV Vaccines Aged Out No longer eligi ble based on patient's age to complete this topic IPV Vaccines Aged Out No longer eligi ble based on patient's age to complete this topic Meningococcal Vaccine Aged Out No vianney gonzalez eligible based on patient's age to complete this topic RSV under 20 months Aged Out No longe r eligible based on patient's age to complete this topic Rotavirus Vaccines Aged Out No longer eligible based on patient's age to complete this topic Procedures Procedure Name Priority Date/Time Associated Diagnosis Comments LAB COLOGUARD?? COLON CANCER SCREEN Routine 08/31/2024 10:33 AM EST Screening for colon cancer BASIC METABOLIC PANEL Routine 08/24/2024 11:57 AM EST Essential hypertension Other hyperlipidemia Fatty liver Prediabetes Major depression, recurrent, chronic (CMS/HCC) Leukocytosis, unspecified type Chronic migraine Mild persistent asthma without complication Nephrolithiasis Epigastric pain Chronic bilateral low back pain without sciatica Chronic pain of both knees YAMILETH (obstructive sleep apnea) Tinea pedis of left foot Breast abscess Hoarseness Decreased hearing of right ear Healthcare maintenance BMI 50.0-59.9, adult (CMS/HCC) Encounter for screening for malignant neoplasm of colon CBC Routine 08/24/2024 11:57 AM EST Essential hypertension Other hyperlipidemia Fatty liver Prediabetes Major depression, recurrent, chronic (CMS/HCC) Leukocytosis, unspecified type Chronic migraine Mild persistent asthma without complication Nephrolithiasis Epigastric pain Chronic bilateral low back pain without sciatica Chronic pain of both knees YAMILETH (obstructive sleep apnea) Tinea pedis of left foot Breast abscess Hoarseness Decreased hearing of right ear Healthcare maintenance BMI 50.0-59.9, adult (CMS/HCC) Encounter for screening for malignant neoplasm of colon HEMOGLOBIN A1C Routine 08/24/2024 11:57 AM EST Essential hypertension Other hyperlipidemia Fatty liver Prediabetes Major depression, recurrent, chronic (CMS/HCC) Leukocytosis, unspecified type Chronic migraine Mild persistent asthma without complication Nephrolithiasis Epigastric pain Chronic bilateral low back pain without sciatica Chronic pain of both knees YAMILETH (obstructive sleep apnea) Tinea pedis of left foot Breast abscess Hoarseness Decreased hearing of right ear Healthcare maintenance BMI 50.0-59.9, adult ([facility]/HCC) Encounter for screening for malignant neoplasm of colon HEPATIC FUNCTION PANEL Routine 08/24/2024 11:57 AM EST Essential hypertension Other hyperlipidemia Fatty liver Prediabetes Major depression, recurrent, chronic (CMS/HCC) Leukocytosis, unspecified type Chronic migraine Mild persistent asthma without complication Nephrolithiasis Epigastric pain Chronic bilateral low back pain without sciatica Chronic pain of both knees YAMILETH (obstructive sleep apnea) Tinea pedis of left foot Breast abscess Hoarseness Decreased hearing of right ear Healthcare maintenance BMI 50.0-59.9, adult (CMS/HCC) Encounter for screening for malignant neoplasm of colon VITAMIN D,25-OH,TOTAL,IA Routine 08/24/2024 11:57 AM EST Essential hypertension Other hyperlipidemia Fatty liver Prediabetes Major depression, recurrent, chronic (CMS/HCC) Leukocytosis, unspecified type Chronic migraine Mild persistent asthma without complication Nephrolithiasis Epigastric pain Chronic bilateral low back pain without sciatica Chronic pain of both knees YAMILETH (obstructive sleep apnea) Tinea pedis of left foot Breast abscess Hoarseness Decreased hearing of right ear Healthcare maintenance BMI 50.0-59.9, adult (CMS/HCC) Encounter for screening for malignant neoplasm of colon TSH Routine 08/24/2024 11:57 AM EST Essential hypertension Other hyperlipidemia Fatty liver Prediabetes Major depression, recurrent, chronic (CMS/HCC) Leukocytosis, unspecified type Chronic migraine Mild persistent asthma without complication Nephrolithiasis Epigastric pain Chronic bilateral low back pain without sciatica Chronic pain of both knees YAMILETH (obstructive sleep apnea) Tinea pedis of left foot Breast abscess Hoarseness Decreased hearing of right ear Healthcare maintenance BMI 50.0-59.9, adult (CMS/HCC) Encounter for screening for malignant neoplasm of colon LIPID PANEL, STANDARD Routine 08/24/2024 11:57 AM EST Essential hypertension Other hyperlipidemia Fatty liver Prediabetes Major depression, recurrent, chronic (CMS/HCC) Leukocytosis, unspecified type Chronic migraine Mild persistent asthma without complication Nephrolithiasis Epigastric pain Chronic bilateral low back pain without sciatica Chronic pain of both knees YAMILETH (obstructive sleep apnea) Tinea pedis of left foot Breast abscess Hoarseness Decreased hearing of right ear Healthcare maintenance BMI 50.0-59.9, adult (CMS/HCC) Encounter for screening for malignant neoplasm of colon T4, FREE Routine 08/24/2024 11:57 AM EST Essential hypertension Other hyperlipidemia Fatty liver Prediabetes Major depression, recurrent, chronic (CMS/HCC) Leukocytosis, unspecified type Chronic migraine Mild persistent asthma without complication Nephrolithiasis Epigastric pain Chronic bilateral low back pain without sciatica Chronic pain of both knees YAMILETH (obstructive sleep apnea) Tinea pedis of left foot Breast abscess Hoarseness Decreased hearing of right ear Healthcare maintenance BMI 50.0-59.9, adult (CMS/HCC) Encounter for screening for malignant neoplasm of colon POCT GLUCOSE Routine 07/23/2024 11:20 AM EST Essential hypertension POCT ANALISA-14 URINE DRUG SCREEN Routine 07/20/2024 11:53 AM EST Chronic bilateral low back pain without sciatica GROSS AND MICROSCOPIC LEVEL 3 Routine 06/28/2024 8:42 AM EST GLUCOSE, WHOLE BLOOD Routine 06/28/2024 7:30 AM EST BI US BREAST LIMITED BILATERAL Routine 06/02/2024 2:00 PM EDT HEPATITIS C AB W/REFL TO HCV RNA, QN, PCR Routine 04/27/2024 2:02 PM EDT Essential hypertension Other hyperlipidemia Fatty liver Prediabetes Major depression, recurrent, chronic (CMS/HCC) Leukocytosis, unspecified type Chronic migraine Mild persistent asthma without complication Nephrolithiasis Epigastric pain Chronic bilateral low back pain without sciatica Chronic pain of both knees Melasma Hidradenitis suppurativa YAMILETH (obstructive sleep apnea) Acute hip pain, left Tinea pedis of left foot Healthcare maintenance HIV ANTIBODY/ANTIGEN ([place] DPH) Routine 02/21/2023 2:35 PM EDT from Last 3 Months or Most Recently Relevant to Health Maintenance Results * (ABNORMAL) Cologuard?? colon cancer screening (08/31/2024 10:33 AM EST) Cologuard Result Positive( A) Negative 09/07/2024 10:16 AM EST [facility] (CLIA #:[id number]) Comment: POSITIVE TEST RESULT. A positive Cologuard result should be followed with a colonoscopy or visual examination of the colon. The normal value (reference range) for this assay is negative. TEST DESCRIPTION: Composite algorithmic analysis of stool DNA-biomarkers with hemoglobin immunoassay. ?? Quantitative values of individual biomarkers are not reportable and are not associated with individual biomarker result reference ranges. Cologuard is intended for colorectal cancer screening of adults of either sex, 45 years or older, who are at average-risk for colorectal cancer (CRC). Cologuard has been approved for use by the U.S. FDA. The performance of Cologuard was established in a cross sectional study of average-risk adults aged 50-84. Cologuard performance in patients ages 45 to 49 years was estimated by sub-group analysis of near-age groups. Colonoscopies performed for a positive result may find as the most clinically significant lesion: colorectal cancer [4.0%], advanced adenoma (including sessile serrated polyps greater than or equal to 1cm diameter) [20%] or non- advanced adenoma [31%]; or no colorectal neoplasia [45%]. These estimates are derived from a prospective cross-sectional screening study of 10,000 individuals at average risk for colorectal cancer who were screened with both Cologuard and colonoscopy. (Ashleigh Zhou al, N Engl J Med 2014;370(14):8083-4574.) Cologuard may produce a false negative or false positive result (no colorectal cancer or precancerous polyp present at colonoscopy follow up). A negative Cologuard test result does not guarantee the absence of CRC or advanced adenoma (pre-cancer). The current Cologuard screening interval is every 3 years. ([place] [employer] and U.S. Multi-Society Task Force). Cologuard performance data in a 10,000 patient pivotal study using colonoscopy as the reference method can be accessed at the following location: [email or web address].Us/results. Additional description of the Cologuard test process, warnings and precautions can be found at [email or web address]. Stool specimen (specimen) 08/31/2024 10:33 AM EST 09/01/2024 11:06 AM EST Carmen Bertrand DO LAB MOLECULAR DIAGNOSTICS OR DERABLES Final Result [facility] (CLIA #:[id number]) [address] [place] [address], * (ABNORMAL) Vitamin D, 25-Hydroxy, Total, Immunoassay (08/24/2024 11:57 AM EST) Vitamin D 25-OH Total 19.8(L) >30 ng/mL [facility] Comment:Health Based Referen ce Values*< 20 ng/mL Eujsqxbyo60-18 ng/mL Insufficient> 30 ng/mL Sufficient*Alen KOTHARI. N Engl J Med. 2007;357:266-280Care must be taken in interpreting Vitamin D results fromdifferent laboratories and methodologies. Published datademonstrated that results from patients undergoinghemodialysis may show a negative bias when tested withvarious automated 25-OH vitamin D assays when compared toLC-MS/MS.When testing samples from patients whose predominant form ofVitamin D is Vitamin D2, such as patients receiving VitaminD2 supplementation, results that are subtherapeutic shouldbe confirmed with another method such as LC-MS/MS. Blood Venous blood specimen / Unknown 08/24/2024 11:57 AM EST 08/24/2024 1:03 PM EST us Carmen Bertrand DO LAB BLOOD ORDERABLES Final R esult [facility] [address] [place] [phone] * CBC (08/24/2024 11:57 AM EST) White Blood Count 9.1 4.8 - 10.8 X10*3/uL [facility] Red Blood Count 4.38 4.20 - 5.50 X10*6/uL [facility] Hemoglobin 13.3 12.0 - 16.0 g/dl [facility] Hematocrit 40.8 37.0 - 47.0 % [facility] Mean Corpuscular Volume 93.2 80.0 - 98.0 fL [facility] Mean Corpuscular Hemoglobin 30.4 27.0 - 33.0 pg [facility] Mean Corpuscular HGB Conc 32.6 31.0 - 35.0 g/dl [facility] Red Cell Distribution Width 14.6 11.0 - 16.0 % [facility] Platelet Count 293 160 - 400 X10*3/uL [facility] Mean Platelet Volume 10.2 9.4 - 12.3 fL [facility] NRBC Pct Auto 0.0 0.0 - 0.2 /100WBC [facility] NRBC Abs Auto 0.000 0.0 - 0.012 X10*3/uL [facility] Blood Venous blood specimen / Unknown 08/24/2024 11:57 AM EST 08/24/2024 1:03 PM EST Carmen Bertrand DO LAB BLOOD ORDERABLES Final R esult [facility] [address] [place] [phone] * TSH (08/24/2024 11:57 AM EST) Thyroid Stimulating Hormone 1.83 0.32 - 4.0 uIU/mL [facility] Comment:TSH 3rd Generation ( [facility]) Blood Venous blood specimen / Unknown 08/24/2024 11:57 AM EST 08/24/2024 1:03 PM EST Carmen Bertrand DO LAB BLOOD ORDERABLES Final R esult Performing Organization Address [facility]/ZIP Co de Phone Number [facility] [address] [place] [phone] * T4, Free (08/24/2024 11:57 AM EST) Free T4 (Free Thyroxine) 0.89 0.71 - 1.85 ng/dL [facility] Blood Venous blood specimen / Unknown 08/24/2024 11:57 AM EST 08/24/2024 1:03 PM EST Carmen Elza DO LAB BLOOD ORDERABLES Final R esult Performing Organization Address City/[facility]/ZIP Co de Phone Number [facility] [address] [place] [address] [phone] * Hemoglobin A1c (08/24/2024 11:57 AM EST) Hemoglobin A1c 6.0 <6.0 % [facility] Comment:Hemoglobin A1C Refer ence Range Adults: 4.8 - 6.0 % Non diabetic: < 6.0 % Goal: < 7.0 %Additional Action Suggested: > 8.0 %Note: Hemoglobin A1c results are invalid for patients with abnormal amounts of HbF. Blood transfusions may impact the HbA1c concentration in the patient sample. Estimated Average Glucose 126 mg/dL [facility] Comment:eAG = Estimated ave rage glucose which is %A1C expressed asaverage glucose, using the formula of the F2S-StbevpsQbrhmwy Glucose study (ADAG), Diabetes Care, Vol.31,#8,Mar. 2007 Blood Venous blood specimen / Unknown 08/24/2024 11:57 AM EST 08/24/2024 1:03 PM EST Carmen Bertrand LAB BLOOD ORDERABLES Final R esult Performing Organization Address [facility] Co de Phone Number [facility] [address] [place] [address] [phone] * Hepatic Function Panel (08/24/2024 11:57 AM EST) Bilirubin, Total 0.4 0.0 - 1.0 mg/dL [facility] Bilirubin, Direct 0.2 0.0 - 0.5 mg/dL [facility] Aspartate Amino Transferase 29 5 - 31 U/L [facility] Alanine Aminotransferase 30 0 - 31 U/L [facility] Total Protein 7.5 6.5 - 8.0 g/dL [facility] Albumin Level 3.6 3.5 - 5.0 g/dL [facility] Alkaline Phosphatase 96 39 - 117 U/L [facility] Blood Venous blood specimen / Unknown 08/24/2024 11:57 AM EST 08/24/2024 1:03 PM EST Carmen Bertrand LAB BLOOD ORDERABLES Final R esult Performing Organization Address [facility] Co de Phone Number [facility] [address] [place] [address] [phone] * (ABNORMAL) Lipid Panel, Standard (08/24/2024 11:57 AM EST) Triglycerides 82 <150 mg/dL [facility] Comment:Desirable Triglyceri de: less than 150 mg/dLBorderline High Triglyceride 150-199 mg/dLHigh Triglyceride: 200-499 mg/dLVery High Triglyceride: greater than or equal to 5OO mg/dL Cholesterol 136 <200 mg/dL [facility] Comment:Desirable Cholestero l: less than 200 mg/dLBorderline High Cholesterol: 200-239 mg/dLHigh Cholesterol: greater than 239 mg/dL LDL Cholesterol Calculated 81 <100 mg/dL [facility] Comment:Desirable LDL: less than 100 mg/dLNear Optimal/Above Optimal LDL: 110- 129 mg/dLBorderline High LDL: 130-159 mg/dLHigh LDL: 160-189 mg/dLVery High LDL: greater than or equal to 190 mg/dL HDL Cholesterol 39(L) >40 mg/dL [facility] Comment:Desirable HDL: great er than 40 mg/dL Note: This HDL assay may give artificially low results in patients with liver disease. Blood Venous blood specimen / Unknown 08/24/2024 11:57 AM EST 08/24/2024 1:03 PM EST us Carmen Bertrand DO LAB BLOOD ORDERABLES Final R esult [facility] [address] [place] [address] [phone] * (ABNORMAL) Basic Metabolic Panel (08/24/2024 11:57 AM EST) Sodium 141 135 - 145 mmol/L [facility] Potassium 4.2 3.3 - 5.1 mmol/L [facility] Chloride 112(H) 96 - 108 mmol/L [facility] Carbon Dioxide 26 22 - 29 mmol/L [facility] Anion Gap 7(L) 12 - 20 [facility] Urea Nitrogen (BUN) 15 9 - 16 mg/dL [facility] Creatinine, Serum 0.82 0.5 - 1.4 mg/dL [facility] Estimated Glomerular Filt Rate >60 [facility] Comment:Chronic Kidney Disea se: Estimated GFR < 60 mL/min/[id number] Kidney Disease: Estimated GFR < 15 mL/min/1.73m2 Glucose 111 60 - 115 mg/dL [facility] Calcium 9.2 8.4 - 10.2 mg/dL [facility] Blood Venous blood specimen / Unknown 08/24/2024 11:57 AM EST 08/24/2024 1:03 PM EST Carmen Bertrand DO LAB BLOOD ORDERABLES Final R esult [facility] [address] [place] [address] [phone] * POCT Glucose (07/23/2024 11:20 AM EST) [facility] Signature Glucose Blood, POC 128 60 - 200 mg/dL QC Media Lot # [id number] Lot# Expiration Date 710 Blood Capillary blood specimen / Unknown 07/23/2024 11:20 AM EST Carmen Bertrand DO POINT OF CARE TEST ENTER/LANEY T ORDERABLES Final Result * POCT ANALISA-14 Urine Drug Screen (07/20/2024 11:53 AM EST) Urine Urine specimen obtained by clean catch procedure / Unknown 07/20/2024 11:53 AM EST Narrative 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 RN - 07/20/2024 11:53 AM EST UTOX cup Lot#[id number] Exp. 04/06/26 Internal Pass Control Negative for all substances Carmen Bertrand DO POINT OF CARE TEST ENTER/LANEY T ORDERABLES Final Result * Gross and Microscopic Level 3 (06/28/2024 8:42 AM EST) 06/28/2024 8:42 AM EST 06/28/2024 9:39 AM EST Narrative [facility] - 06/30/2024 3:21 PM EST ----- ------- Name: Blaire Quiroz ?Age/Sex: 49/F ? : 1975 Unit#: [id number] ?? Attend Dr: Man Oviedo MD ?Re06/28/24 ?Status: DEP SDC ? Location: HO.SSS ?Disch: ? ----- ------- SPEC : [id number] ? RECD: 06/28/24 ? STATUS: ??SOUT ? REQ NUM: [id number] ? FRANCISCO JAVIER: 06/28/24-841 ? SUBM DR: Man Oviedo MD ? ENTERED: ??06/28/24 ?SP TYPE: Surgical ? OTHR : Carmen Bertrand DO ? ORDERED: ??Gross Micro L3/3 ? Diagnosis ?? A. ??Skin, left nipple, excision: ??Epidermal inclusion cyst. ? B. ??Skin, right nipple, excision: ?- Ruptured squamous-lined cystic space. ?- Benign breast tissue with the usual ductal hyperplasia; no atypia identified. ??See ?? comment. ? C. ??Skin, right ear, excision: ??Epidermal inclusion cyst. ? Comment: ??The findings in part B may represent a ruptured epidermal inclusion cyst. ?? However, given the proximity to breast tissue, squamous metaplasia of lactiferous ducts ?? (SMOLD) is also a diagnostic consideration; please correlate clinically. ?Clinical History Sebaceous cyst ?Microscopic Description A-C. ??Microscopic sections reviewed. ? Material Received ?? A. Left nipple cyst ?? B. Right nipple cyst ?? C. Right ear cyst ? Gross Description Received in three parts. Part A: ??Received in formalin labeled ?left nipple cyst? is a 0.9 x 0.5 cm ellipse of abernathy skin and firm and nodular subjacent fibrous dermal tissue excised to a maximum depth 0.45 cm. ??There is a palpable nodule within the fibrous dermal tissue. ??The margins are inked and the specimen is serially sectioned to reveal a 0.4 cm thin-walled abernathy-white cyst containing barajas-white cheesy and keratotic material. ??The specimen is entirely submitted in a cassette labeled A. Part B: ??Received in formalin labeled ?right nipple cyst? is a 2.0 x 1.5 x 1.0 cm portion of cauterized, rubbery, firm and focally nodular abernathy-white and quinones-yellow fibroadipose tissue with what appears to be an attached 0.5 x 0.3 cm ellipse of puckered and retracted abernathy skin. ??The margins are inked and the specimen is serially sectioned to reveal ? CONTINUED ON NEXT PAGE ----- ------- Name: Blaire Quiroz ?Age/Sex: 49/F ? : 1975 Unit#: [id number] ?? Attend Dr: Man Oviedo MD ?Re06/28/24 ?Status: DEP SDC ? Location: HO.SSS ?Disch: ? ----- ------- SPEC : [id number] ? RECD: 06/28/24 ? STATUS: ??SOUT ? REQ NUM: [id number] ? FRANCISCO JAVIER: 06/28/24 ? SUBM DR: Man Oviedo MD ? ENTERED: ??06/28/24 ?SP TYPE: Surgical ? OTHR DR: Carmen Bertrand DO ? ORDERED: ??Gross Micro L3/3 ? Gross Description ?(Continued) predominantly quinones-yellow subcutaneous fat with a lesser amount of dense, rubbery firm abernathy-white fibrous dermal tissue. ??A distinct cyst is not identified. ??The specimen is entirely submitted in B1-B3. Part C: ??Received in formalin labeled ?right ear cyst? is a 0.8 x 0.4 cm elliptical fragment of puckered and retracted abernathy skin and subjacent fibrous dermal tissue excised to a maximum depth of 0.8 cm. ??Present at the peripheral soft tissue margins is a 0.8 cm thin-walled barajas-abernathy cyst. ??The margins are inked and the specimen is bisected and entirely submitted in a cassette labeled C. ??CEDS This case was reviewed intradepartmentally (B) Copies To: ?? Carmen Bertrand DO ?? [facility] ?? [address] ?? [place] [address] ?? [phone] ?? Man Oviedo MD ?? [facility] ?? [address] [place] [address] ??Drive ?? [place] [address] ?? [phone] ----- ------- Signed (signature on file) Dean Thomas MD 06/30/24 1521 ? ----- ------- ? END OF REPORT ? us Generic External Data Provider LAB CYTOLOGY ORDE RABLES Final Result Performing Organization Address City/[facility]/ZIP Co de Phone Number [facility] [address] [place] [address] [phone] * Glucose, Whole Blood (06/28/2024 7:30 AM EST) Glucose, Whole Blood 109 60 - 115 mg/dL [facility] Comment:METER #: [id number] 06/28/2024 7:30 AM EST 06/28/2024 7:36 AM EST Generic External Data Provider LAB BLOOD ORDERAB LES Final Result Performing Organization Address [facility]/ZIP Co de Phone Number [facility] [address], [place] [phone] * BI US Breast Limited Bilateral (06/02/2024 2:00 PM EDT) Anatomical Region Laterality Modality Breast Bilateral Ultrasound 06/02/2024 2:00 PM EDT Narrative 06/03/2024 8:44 AM EDT ? [facility] ? [address] ?[place] [address] ? Ultrasound Report ? Signed ? Patient: Maria Luisa Marroquintiz,Blaire ?MR#: [id number] ?? [id number] ? : 1975 ?Acct:[id number] ? Age/Sex: 49 / F ?ADM Date: 06/02/24 ? Loc: HO.MAMMO ? Attending Dr: Carmen Bertarnd DO ? Ordering Physician: Carmen Bertrand DO ?? Date of Service: 06/02/24 ?? Procedure(s): US breast BI limited mamm only ?? Accession Number(s): [id number] ? cc: Carmen Bertrand DO ? EXAMINATION: ?? US DIAGNOSTIC ULTRASOUND BREAST, BILATERAL ? CLINICAL INFORMATION: ? 41-year-old female, complaining of 1 cm oval mass right breast 10:00 ?? axis, 6 cm from the nipple, as well as bilateral retroareolar small ?? nodules felt by the patient by approximately 1 month. ? COMPARISON: ?? None contributory. Correlation made with screening mammography ?? 04/29/2024. ? TECHNIQUE: ?? Ultrasound of the left breast is performed with real-time barajas scale ?? imaging and color Doppler. Attention was given to both retroareolar ?? regions, and in the 10:00 axis right breast in the areas of palpable ?? concern. ? FINDINGS: ?? Right Breast: ?? -At the 10:00 axis approximately 20 cm from the nipple, there is a ?? hyperechoic subcutaneous lipomatous nodule, likely developing oil cyst ?? or fat necrosis, measuring 10 x 7 x 7 mm, correlating with the right ?? 10:00 area of palpable concern. This finding is a benign abnormality. ?? Patient has multiple known oil cysts. ? -In the retroareolar right breast, within the dermis/areola, there is a ?? 7 x 7 x 5 mm intradermal oval hypoechoic dermal lesion directly ?? adjacent to the nipple, consistent with a Brennan cyst. This ?? correlates with the retroareolar palpable focus of concern. This is ?? benign. ? No suspicious findings. ? Left Breast: ?? In the retroareolar 6:00 left breast, within the dermis/areola, there ?? is a 5 x 2 x 4 mm intradermal oval anechoic dermal lesion directly ?? adjacent to the nipple, consistent with a Brennan cyst. This ?? correlates with the retroareolar palpable focus of concern. This is ?? benign. ? No suspicious findings. ? US/US breast BI limited mamm only ?? IMPRESSION: ? -There are no findings suspicious for malignancy in either breast. ? -Right breast 10 x 7 x 7 mm area of subcutaneous fat ?? necrosis/developing oil cyst, correlating with the right 10:00 area of ?? palpable concern. This is benign. ? -Bilateral benign Brennan cysts in the nipples, confined to the ?? dermis, correlating with the retroareolar regions of concern ?? bilaterally. These are benign. ? -No further follow-up recommended. Recommend the patient return to ?? routine annual screening mammography. ? ASSESSMENT: ? BI-RADS 2: Benign ? RECOMMENDATION: ?? Routine annual mammography screening. ? This patient's information was entered into a reminder system with a ?? target due date for their next mammogram. ? Electronically signed by: ??Shamir Olmedo MD ??06/03/2024 08:41 AM EDT RP ? Dictated By: ?Shamir Olmedo MD ? Signed By: ?<Electronically signed by Shamir Olmedo MD in OV> ?06/03/24 0841 ? DD/ 1400 ? TD/TT: 06/02/24 1454 ? Dry Wall Installations Mechanic: ? Procedure Note Geno, Image - 06/03/2024 [facility] [address] [place], [place] [address] Ultrasound Report Signed Patient: Blaire Quiroz#: M [id number] : 1975Acct:[id number] Age/Sex: 49 / FADM Date: 06/02/24 Loc: HO.MAMMO Attending Dr: Carmen Bertrand DO Ordering Physician: Carmen Bertrand DO Date of Service: 06/02/24 Procedure(s): US breast BI limited mamm only Accession Number(s): [id number] cc: Carmen Bertrand DO EXAMINATION: US DIAGNOSTIC ULTRASOUND BREAST, BILATERAL CLINICAL INFORMATION: 41-year-old female, complaining of 1 cm oval mass right breast 10:00 axis, 6 cm from the nipple, as well as bilateral retroareolar small nodules felt by the patient by approximately 1 month. COMPARISON: None contributory. Correlation made with screening mammography 04/29/2024. TECHNIQUE: Ultrasound of the left breast is performed with real-time barajas scale imaging and color Doppler. Attention was given to both retroareolar regions, and in the 10:00 axis right breast in the areas of palpable concern. FINDINGS: Right Breast: -At the 10:00 axis approximately 20 cm from the nipple, there is a hyperechoic subcutaneous lipomatous nodule, likely developing oil cyst or fat necrosis, measuring 10 x 7 x 7 mm, correlating with the right 10:00 area of palpable concern. This finding is a benign abnormality. Patient has multiple known oil cysts. -In the retroareolar right breast, within the dermis/areola, there is a 7 x 7 x 5 mm intradermal oval hypoechoic dermal lesion directly adjacent to the nipple, consistent with a Brennan cyst. This correlates with the retroareolar palpable focus of concern. This is benign. No suspicious findings. Left Breast: In the retroareolar 6:00 left breast, within the dermis/areola, there is a 5 x 2 x 4 mm intradermal oval anechoic dermal lesion directly adjacent to the nipple, consistent with a Brennan cyst. This correlates with the retroareolar palpable focus of concern. This is benign. No suspicious findings. US/US breast BI limited mamm only IMPRESSION: -There are no findings suspicious for malignancy in either breast. -Right breast 10 x 7 x 7 mm area of subcutaneous fat necrosis/developing oil cyst, correlating with the right 10:00 area of palpable concern. This is benign. -Bilateral benign Brennan cysts in the nipples, confined to the dermis, correlating with the retroareolar regions of concern bilaterally. These are benign. -No further follow-up recommended. Recommend the patient return to routine annual screening mammography. ASSESSMENT: BI-RADS 2: Benign RECOMMENDATION: Routine annual mammography screening. This patient's information was entered into a reminder system with a target due date for their next mammogram. Electronically signed by: Shamir Olmedo MD 06/03/2024 08:41 AM EDT RP Dictated By: Shamir Olmedo MD Signed By: <Electronically signed by Shamir Olmedo MD in OV> 06/03/24 0841 DD/ 1400 TD/TT: 06/02/24 1454 Dry Wall Installations Mechanic: us Carmen Bertrand DO IMG US PROCEDURES Final Resu lt * Hepatitis C Antibody with Reflex to HCV, RNA, Quantitative, Real-Time PCR (04/27/2024 2:02 PM EDT) Hepatitis C Antibody Nonreactive Nonreactive [facility] Comment:Antibodies to HCV no t detected; does not exclude early acuteHCV infection. Blood Venous blood specimen / Unknown 04/27/2024 2:02 PM EDT 04/27/2024 4:01 PM EDT us Carmen Bertrand DO LAB BLOOD ORDERABLES Final R esult [facility] [address] [place] [phone] * HIV Ab/Ag ([facility]) (02/21/2023 2:35 PM EDT) HIV AB/AG Nonreactive Nonreactive [facility] Comment:HIV-1 p24 Ag and/or HIV-1/HIV-2 Ab not detected.A test result that is nonreactive does not exclude thepossibility of exposure to or infection with HIV-1 and/orHIV-2. Nonreactive results in this assay for individualswith prior exposure to HIV-1 and/or HIV-2 may be due toantigen and antibody levels that are below the limit ofdetection of this assay.[facility] HIV Ag/Ab Combo assay result andsupplemental assay results should be interpreted inconjunction with the patient's clinical presentation,history and other laboratory results. If the results areinconsistent with clinical evidence, additional testing issuggested to confirm the result. 02/21/2023 2:35 PM EDT 02/21/2023 2:37 PM EDT [facility] External Provider LAB BLO OD ORDERABLES Final Result [facility] [address] [place] [phone] from Last 3 Months or Most Recently Relevant to Health Maintenance Insurance - [employer] Care Teams Information Technology Specialist Relationship Specialty Start Date End Date Carmen Bertrand DO [address] [place] [phone] PCP - General Family Medicine 08/18/18
--- OUTSIDE RECORDS SUMMARY | 2024-09-17 11:41 | XMS_ITS | Encounter Summary ---
Author Organization [facility] Address [address] [place] [address], [place] [address] Care Team Providers Care Director Report Name Role Phone Carmen Bertrand DO Primary Care Provider [phone] Reason for Visit * Reason Comments Med Refill Encounter Details Date Type Department Care Team (Late Contact Info) Description 07/29/2022 Refill [facility] [address] [place] [address] Carmen Bertrand DO [address] [place] [address] Social History Tobacco Use Types Packs/Day Years [...] Description 10/20/2024 2:30 PM EST Office Visit [facility] [address] [place] [address] Tova Saucedo, OD [address] [place] [address] 10/21/2024 1:30 PM EST Clinical Support [facility] [address] [place] [address] 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 RN documented as of this encounter Visit Diagnoses Not on filedocumented in this encounter Care Teams Director Report Relationship Specialty Start Date End Date Carmen Bertrand DO [address] [place] [phone] PCP - General Family Medicine 08/18/18 documented as of this encounter
--- OUTSIDE RECORDS SUMMARY | 2024-09-17 11:41 | XMS_ITS | Encounter Summary ---
Author Organization [employer] Address [address] [place] [address] 7 [place] [address] Care Team Providers Care Extractor Machine Operator Name Role Phone Carmen Bertrand DO Primary Care Provider +1 [phone] Encounter Details Date Type Department Care Team (Late st Contact Info) Description 09/09/2022 Orders Only [facility] CHC MED & PEDS [address] [place], [place] [phone] Carmen Perez LPN Social History Tobacco Use [...] Description 10/20/2024 2:30 PM EST Office Visit [facility] OPTOMETRY [address] [place] [address] Toav Saucedo, OD 230 [place] [address] 10/21/2024 1:30 PM EST Clinical Support [facility] MEDICINE [address] [place] [address] 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 RN documented as of this encounter Visit Diagnoses Not on filedocumented in this encounter Care Teams Extractor Machine Operator Relationship Specialty Start Date End Date Carmen Bertrand DO 230 [place] [address] PCP - General Family Medicine 08/18/18 documented as of this encounter
--- OUTSIDE RECORDS SUMMARY | 2024-09-17 11:42 | XMS_ITS | Encounter Summary ---
Author Organization [employer] Address [address] [facility] 7t [place] [address] Care Team Providers Care Field Cane Scaler Helper Name Role Phone EdilsonCarmen dixon Primary Care Provider + [phone] Reason for Visit * Reason Comments Med Refill Encounter Details Date Type Department Care Team ([facility] st Contact Info) Description 03/08/2024 Refill [facility] MEDICINE [address] [place] [address] Rox Sutton MD 230 [place] [address] Pain Social History Tobacco Use Types Packs/Day Years Used Date Smoking Tobacco: Every Day Cigarettes Passive Smoke Exposure: Current Smokeless Tobacco: Never Alcohol Use Standard Drinks/Week Comments Never 0 (1 standard drink = 0.6 oz pur e alcohol) Depression Answer Date Recorded Patient Health Questionnaire-9 Score 21 06/24/2023 Patient Health Questionnaire-9 Score 21 06/24/2023 Last PHQ-9: Questionnaire Data Not on file 1 08/24/2022 Housing Stability Answer Date Recorded What is your housing situation today? I have pravin amin 11/18/[address] you li ve. Do you have problems with any of the following? None of the above 11/18/2023 Food Insecurity Answer Date Recorded Within the [...] Answer Date Recorded Patient Health Questionnaire-2 Score 6 06/24/2023 Comments Unknown Sex and Gender Information Value [...] Description 10/20/2024 2:30 PM EST Office Visit [facility] OPTOMETRY [address] [place] [address] Lewis, Tova, OD 230 [place] [address] 10/21/2024 1:30 PM EST Clinical Support [facility] MEDICINE [address] [place] [address] 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 RN documented as of this encounter Visit Diagnoses Diagnosis Pain Generalized pain documented in this encounter Additional Health Concerns Assessment Noted Time PHQ-9 Depression Total Score: 21 023 11:26 AM EST documented as of this encounter Care Teams Field Cane Scaler Helper Relationship Specialty Start Date End Date Carmen Bertrand DO 230 [place] [address] PCP - General Family Medicine 08/18/18 documented as of this encounter
--- OUTSIDE RECORDS SUMMARY | 2024-09-17 11:42 | XMS_ITS | Encounter Summary ---
Author Organization [employer] Address [address] [facility] 7t [place] [address] Care Team Providers Care Soaker Helper Name Role Phone Carmen Bertrand DO Primary Care Provider + [phone] Reason for Visit * Reason Comments Med Refill Encounter Details Date Type Department Care Team ([facility] Contact Info) Description 10/18/2022 Refill [facility] MEDICINE [address] [place] [address] Carmen Bertrand DO [address] [place] [address] Social History Tobacco Use Types Packs/Day Years Used Date Smoking Tobacco: Every Day Cigarettes Passive Smoke Exposure: Current Smokeless Tobacco: Never Alcohol Use Standard Drinks/Week Comments Never 0 (1 standard drink = 0.6 oz pur e alcohol) Depression Answer Date Recorded Patient Health Questionnaire-9 Score 16 09/19/2022 Depression Answer Date Recorded Patient Health Questionnaire-2 Score 6 09/19/2022 Comments Unknown Sex and Gender Information Value Date Recorded Sex Assigned at Female 06/17/2022 10:17 AM EDT Legal Sex Female 10:17 AM EDT Gender Identity Female 06/17/2022 10:17 AM EDT Sexual Orientation Straight 06/17/2022 10 :17 AM EDT COVID-19 Exposure Response Date Recorded In the last 10 days, have yo u been in contact with someone who was confirmed or suspected to have Coronavirus/COVID-19? No / Unsure 10/18/2022 10:40 AM EST documented as of this encounter Plan of Treatment Upcoming Encounters Date Type Department Care Team ([facility] Contact Info) Description 10/20/2024 2:30 PM EST Office Visit [facility] OPTOMETRY [address] [place] [address] Tova Saucedo, OD 230 [place], [place] [phone] 10/21/2024 1:30 PM EST Clinical Support [facility] MEDICINE [address] [place] [address] 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 RN documented as of this encounter Visit Diagnoses Not on filedocumented in this encounter Additional Health Concerns Assessment Noted Time PHQ-9 Depression Total Score: 16 023 12:22 PM EST documented as of this encounter Care Teams Soaker Helper Relationship Specialty Start Date End Date Carmen Bertrand DO [address] [place] [address] PCP - General Family Medicine 08/18/18 documented as of this encounter
--- OUTSIDE RECORDS SUMMARY | 2024-09-17 11:42 | XMS_ITS | Encounter Summary ---
Author Organization [employer] Address [address] 7[address] [place] [address] Care Team Providers Care Internet And E Business Project Manager Name Role Phone Carmen Bertrand DO Primary Care Provider + [phone] Reason for Visit * Reason Comments Med Refill Encounter Details Date Type Department Care Team ([facility] st Contact Info) Description 07/22/2023 Refill [facility] CHC MED & PEDS [address] [place], [place] [phone] Carmen Bertrand DO [address] [facility] [place] [address] Hyperlipidemia, unspecified hyperlipidemia type Social History Tobacco Use Types Packs/Day Years [...] housing situation today? I have pravin amin 06/10/[address] you li ve. Do you have problems with any of the following? None of the above 06/10/2023 Food Insecurity Answer Date Recorded Within the past 12 months, y ou worried that your food would run out before you got money to buy more: Never True 06/10/2023 Within the past 12 months,th e food you bought just didn't last and you didn't have enough money to get more: Never True Transportation Answer Date Recorded In the past 12 months, has l ack of transportation kept you from medical appts, meetings, work or from getting things needed for daily living? No 06/10/2023 Utilities Answer Date Recorded In the past 12 months, has t he electric, gas, oil or water company threatened to shut off services in your home? No 06/10/2023 Depression Answer Date Recorded Patient Health Questionnaire-2 [...] Description 10/20/2024 2:30 PM EST Office Visit [facility] OPTOMETRY [address] [place] [address] Tova Saucedo, OD [address] [place] [address] 10/21/2024 1:30 PM EST Clinical Support [facility] MEDICINE [address] [place] [address] 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 RN documented as of this encounter Visit Diagnoses Diagnosis Hyperlipidemia, unspecified hyperlipidemia type documented in this encounter Additional Health Concerns Assessment Noted Time PHQ-9 Depression Total Score: 21 023 11:26 AM EST documented as of this encounter Care Teams Internet And E Business Project Manager Relationship Specialty Start Date End Date Carmen Bertrand DO [address] [place] [address] PCP - General Family Medicine 08/18/18 documented as of this encounter
--- OUTSIDE RECORDS SUMMARY | 2024-09-17 11:42 | XMS_ITS | Encounter Summary ---
Author Organization [employer] Address [address] [facility] [address] 7[address] [place] [address] Care Team Providers Care Wirer Helper Name Role Phone Carmen Bertrand DO Primary Care Provider + [phone] Reason for Visit * Reason Comments Med Refill Encounter Details Date Type Department Care Team ([facility] st Contact Info) Description 03/16/2024 Refill [facility] CHC MED & PEDS [address] [place], [place] [phone] Carmen Bertrand DO [address] [facility] [place] [address] Chronic low back pain, unspecified back pain laterality, unspecified whether sciatica present Social History Tobacco Use Types Packs/Day Years [...] Description 10/20/2024 2:30 PM EST Office Visit [facility] OPTOMETRY [address] [place], [place] [phone] Tova Saucedo, OD [address] [place] [address] 10/21/2024 1:30 PM EST Clinical Support [facility] MEDICINE [address] [place], [place] [phone] 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 RN documented as of this encounter Visit Diagnoses Diagnosis Chronic low back pain, unspecified back pain laterality, unspecified whether sciatica present documented in this encounter Additional Health Concerns Assessment Noted Time PHQ-9 Depression Total Score: 21 023 11:26 AM EST documented as of this encounter Care Teams Wirer Helper Relationship Specialty Start Date End Date Carmen Bertrand DO [address] [place] [address] PCP - General Family Medicine 08/18/18 documented as of this encounter
--- OUTSIDE RECORDS SUMMARY | 2024-09-17 11:43 | XMS_ITS | Encounter Summary ---
Author Organization [employer] Address [address] [facility] 7t [place] [address] Care Team Providers Care Instructor Dancing Name Role Phone EdilsonCarmen dixon Primary Care Provider + [phone] Reason for Visit * Reason Onset Date Comments Results 08/31/2024 Encounter Details Date Type Department Care Team ([facility] st Contact Info) Description 08/31/2024 Refill [facility] MEDICINE [address] [place], [place] [phone] Trista Alford RN 230 [place] [address] Social History Tobacco Use Types Packs/Day Years [...] housing situation today? I have pravin amin 04/27/[address] you [...] AM EDT documented as of this encounter Miscellaneous Notes * Addendum Note - Trista Alford RN - 08/31/2024 2:29 PM ESTAddended by: TRISTA ALFORD on: 08/31/2024 02:29 PM Modules accepted: Orders * Telephone Encounter - Trista Alford RN - 08/31/2024 2:26 PM EST RN spoke to PCP who will RX vitamin D (high dose) for 12 weeks and then patient is to return to regular daily dose. TC placed to patient [phone] to inform of above plan. Patient verbalized understanding. Patient to f/u PRN. * Telephone Encounter - Trista Alford RN - 08/31/2024 12:43 PM EST BW results have returned normal/stable except vitamin D continues to be low. TC placed to patient [phone] in regards to above message. Patient confirms she is taking her vitamin D EVERY DAY without skipping any doses. Patient advised RN will speak to PCP to inquire if patient should start a higher dose or continue same dose and RN will return call to patient. Patient verbalized understanding. Patient to f/u PRN. documented in this encounter Plan of Treatment Upcoming Encounters Date Type Department Care Team (Late st Contact Info) Description 10/20/2024 2:30 PM EST Office Visit [facility] OPTOMETRY [address] [place] [address] Tova Saucedo, OD 230 [place] [address] 10/21/2024 1:30 PM EST Clinical Support [facility] MEDICINE [address] [place], [place] [phone] 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 RN documented as of this encounter Visit Diagnoses Not on filedocumented in this encounter Additional Health Concerns Assessment Noted Time PHQ-9 Depression Total Score: 22 024 11:00 AM EDT documented as of this encounter Care Teams Instructor Dancing Relationship Specialty Start Date End Date Carmen Bertrand DO [address] [place], [place] [phone] PCP - General Family Medicine 08/18/18 documented as of this encounter
--- OUTSIDE RECORDS SUMMARY | 2024-09-17 11:43 | XMS_ITS | Encounter Summary ---
Author Organization [employer] Address [address] [facility] 7t [place] [address] Care Team Providers Care Applied Psychology Teacher Name Role Phone Carmen Bertrand DO Primary Care Provider + [phone] Reason for Visit * Reason Comments Med Refill Encounter Details Date Type Department Care Team ([facility] st Contact Info) Description 09/05/2024 Refill [facility] MEDICINE [address] [place] [address] Carmen Bertrand DO [address] [place] [address] Social History Tobacco Use Types Packs/Day Years [...] 10/20/2024 2:30 PM EST Office Visit [facility] OPTOMETRY [address] [place] [address] Tova Saucedo, OD [address] [place] [address] 10/21/2024 1:30 PM EST Clinical Support [facility] MEDICINE [address] [place] [address] 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, RULA documented as of this encounter Visit Diagnoses Not on filedocumented in this encounter Additional Health Concerns Assessment Noted Time PHQ-9 Depression Total Score: 22 024 11:00 AM EDT documented as of this encounter Care Teams Applied Psychology Teacher Relationship Specialty Start Date End Date Carmen Bertrand DO [address] [place] [address] PCP - General Family Medicine 08/18/18 documented as of this encounter
--- OUTSIDE RECORDS SUMMARY | 2024-09-17 11:43 | XMS_ITS | Encounter Summary ---
Author Organization [employer] Address [address] [facility] 7t [place] [address] Care Team Providers Care Horse Groomer Name Role Phone Carmen Bertrand DO Primary Care Provider [phone] Reason for Visit * Reason Onset Date Comments Paperwork/Forms 09/08/2024 Encounter Details Date Type Department Care Team ([facility] Contact Info) Description 09/08/2024 Telephone [facility] MEDICINE [address] [place] [address] Carmen Bertrand DO [address] [place] [address] Paperwork/Forms Social History Tobacco Use Types Packs/Day Years Used Date Smoking Tobacco: Every Day Cigarettes Passive Smoke Exposure: Current Smokeless Tobacco: Never Alcohol Use Standard Drinks/Week Comments Never 0 (1 standard drink = 0.6 oz pur e alcohol) Depression Answer Date Recorded Patient Health Questionnaire-9 Score 04/27/2024 Patient Health Questionnaire-9 Score 04/27/2024 Last PHQ-9: Questionnaire Data Not on [...] as of this encounter Miscellaneous Notes * Telephone Encounter - Esthela Gutierrez - 09/08/2024 2:20 PM EST TC from pt stated still need a PA for medication Zepbound 2.5mg. PCP DR. Bertrand documented in this encounter Plan of Treatment Upcoming Encounters Date Type Department Care Team (Late st Contact Info) Description 10/20/2024 2:30 PM EST Office Visit [facility] OPTOMETRY [address] [place] [address] Lewis, Tova, OD 230 [place] [address] 10/21/2024 1:30 PM EST Clinical Support [facility] MEDICINE [address] [place] [address] 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 RN documented as of this encounter Visit Diagnoses Not on filedocumented in this encounter Additional Health Concerns Assessment Noted Time PHQ-9 Depression Total Score: 22 024 11:00 AM EDT documented as of this encounter Care Teams Horse Groomer Relationship Specialty Start Date End Date Carmen Bertrand DO [address] [place] [address] PCP - General Family Medicine 08/18/18 documented as of this encounter
--- OUTSIDE RECORDS SUMMARY | 2024-09-17 11:43 | XMS_ITS | Encounter Summary ---
Author Organization [employer] Address [address] [facility] 7t [place] [address] Care Team Providers Care Smooth Plater Name Role Phone Carmen Bertrand DO Primary Care Provider [phone] Reason for Visit * Reason Comments Med Refill Encounter Details Date Type Department Care Team ([facility] st Contact Info) Description 11/20/2022 Refill [facility] MEDICINE 230 [place] [address] Carmen Bertrand DO [address] [place] [address] Morbid obesity with body mass index (BMI) of 50.0 to 59.9 in adult (CMS/HCC) Social History Tobacco Use Types Packs/Day Years [...] suspected to have Coronavirus/COVID-19? No / Unsure 11/21/2022 9:05 AM EDT documented as of this encounter Miscellaneous Notes * Telephone Encounter - Carmen Bertrand DO - 11/21/2022 2:02 PM EDT Rx sent at visit documented in this encounter Plan of Treatment Upcoming Encounters Date Type Department Care Team (Late st Contact Info) Description 10/20/2024 2:30 PM EST Office Visit [facility] OPTOMETRY [address] [place], [place] [phone] Tova Saucedo, OD [address] [place] [address] 10/21/2024 1:30 PM EST Clinical Support [facility] MEDICINE [address] [place] [address] 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, RN documented as of this encounter Visit Diagnoses Diagnosis Morbid obesity with body mass index (BMI) of 50.0 to 59.9 in adult (CMS/HCC) documented in this encounter Additional Health Concerns Assessment Noted Time PHQ-9 Depression Total Score: 16 023 12:22 PM EST documented as of this encounter Care Teams Smooth Plater Relationship Specialty Start Date End Date Carmen Bertrand DO [address] [place] [address] PCP - General Family Medicine 08/18/18 documented as of this encounter
--- OUTSIDE RECORDS SUMMARY | 2024-09-17 11:43 | XMS_ITS | Encounter Summary ---
Author Organization [employer] Address [address] [facility] 7t [place] [address] Care Team Providers Care Public Services Assistant Name Role Phone Carmen Bertrand DO Primary Care Provider [phone] Reason for Visit * Reason Onset Date Comments Appointment Request 09/15/2024 Encounter Details Date Type Department Care Team ([facility] Contact Info) Description 09/15/2024 Telephone [facility] MEDICINE [address] [place], [place] [phone] Carmen Bertrand DO 230 [place] [address] Appointment Request Social History Tobacco Use Types Packs/Day Years [...] encounter Miscellaneous Notes * Telephone Encounter - 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 RN - 09/15/2024 12:56 PM EST Return TC to patient via BLS#[id number], pt states she's traveling in September and will return 10/18/24. REPORTS ANALYST RV rescheduled for 10/21/24 @1:30pm. * Telephone Encounter - Bijan Roberson - 09/15/2024 12:39 PM EST Tc from pt looking to reschedule appt with 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 for medication management. Pt Contact: (English) documented in this encounter Plan of Treatment Upcoming Encounters Date Type Department Care Team (Late st Contact Info) Description 10/20/2024 2:30 PM EST Office Visit [facility] OPTOMETRY [address] [place] [address] Lewis, Tova, OD [address] [place] [address] 10/21/2024 1:30 PM EST Clinical Support [facility] MEDICINE [address] [place] [address] 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, RN documented as of this encounter Visit Diagnoses Not on filedocumented in this encounter Additional Health Concerns Assessment Noted Time PHQ-9 Depression Total Score: 22 024 11:00 AM EDT documented as of this encounter Care Teams Public Services Assistant Relationship Specialty Start Date End Date Carmen Bertrand DO [address] [place] [address] PCP - General Family Medicine 08/18/18 documented as of this encounter
--- OUTSIDE RECORDS SUMMARY | 2024-09-17 11:43 | XMS_ITS | Encounter Summary ---
Author Organization [employer] Address [address] [facility] 7t [place] [address] Care Team Providers Care Supervisor Cigar Making Machine Name Role Phone Carmen Bertrand DO Primary Care Provider + [phone] Reason for Visit * Reason Comments Med Refill Encounter Details Date Type Department Care Team ([facility] st Contact Info) Description 02/24/2024 Refill [facility] MEDICINE [address] [place] [address] Carmen Bertrand DO 230 [place] [address] Social History Tobacco Use Types Packs/Day Years [...] Description 10/20/2024 2:30 PM EST Office Visit [facility] OPTOMETRY [address] [place] [address] Lewis, Tova, OD 230 [place] [address] 10/21/2024 1:30 PM EST Clinical Support [facility] MEDICINE [address] [place] [address] 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, RULA documented as of this encounter Visit Diagnoses Not on filedocumented in this encounter Additional Health Concerns Assessment Noted Time PHQ-9 Depression Total Score: 21 023 11:26 AM EST documented as of this encounter Care Teams Supervisor Cigar Making Machine Relationship Specialty Start Date End Date Carmen Bertrand DO [address] [place] [address] PCP - General Family Medicine 08/18/18 documented as of this encounter
--- OUTSIDE RECORDS SUMMARY | 2024-09-17 11:43 | XMS_ITS | Encounter Summary ---
Author Organization [employer] Address [address] [facility] [address] 7t [place] [address] Care Team Providers Care Rechecker Name Role Phone Carmen Bertrand DO Primary Care Provider + [phone] Reason for Visit * Reason Comments Med Refill Encounter Details Date Type Department Care Team ([facility] st Contact Info) Description 05/12/2024 Refill [facility] CHC MED & PEDS [address] [place], [place] [phone] Carmen Bertrand DO 230 [facility] [place] [address] Chronic low back pain, unspecified back pain [...] Description 10/20/2024 2:30 PM EST Office Visit [facility] OPTOMETRY [address] [place] [address] Lewis, Tova, OD 230 [place] [address] 10/21/2024 1:30 PM EST Clinical Support [facility] MEDICINE [address] [place] [address] 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, RULA documented as of this encounter Visit Diagnoses Diagnosis Chronic low back pain, unspecified back pain laterality, unspecified whether sciatica present documented in this encounter Additional Health Concerns Assessment Noted Time PHQ-9 Depression Total Score: 22 024 11:00 AM EDT documented as of this encounter Care Teams Rechecker Relationship Specialty Start Date End Date Carmen Bertrand DO 230 [place], [place] [phone] PCP - General Family Medicine 08/18/18 documented as of this encounter
--- OUTSIDE RECORDS SUMMARY | 2024-09-17 11:43 | XMS_ITS | Encounter Summary ---
Author Organization [employer] Address [address] [facility] [address] 7t [place] [address] Care Team Providers Care Health And Safety Instructor Name Role Phone Carmen Bertrand DO Primary Care Provider + [phone] Reason for Visit * Reason Comments Med Refill Encounter Details Date Type Department Care Team ([facility] st Contact Info) Description 09/17/2024 Refill [facility] CHC MED & PEDS [address] [place], [place] [phone] Carmen Bertrand DO 230 [facility] [place] [address] Social History Tobacco Use Types Packs/Day Years [...] Description 10/20/2024 2:30 PM EST Office Visit [facility] OPTOMETRY [address] [place] [address] Tova Saucedo, OD 230 [place] [address] 10/21/2024 1:30 PM EST Clinical Support [facility] MEDICINE 230 [place], [place] [phone] 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, RULA documented as of this encounter Visit Diagnoses Not on filedocumented in this encounter Additional Health Concerns Assessment Noted Time PHQ-9 Depression Total Score: 22 024 11:00 AM EDT documented as of this encounter Care Teams Health And Safety Instructor Relationship Specialty Start Date End Date Carmen Bertrand DO 230 [place] [address] PCP - General Family Medicine 08/18/18 documented as of this encounter
--- OUTSIDE RECORDS SUMMARY | 2024-09-17 11:43 | XMS_ITS | Encounter Summary ---
Author Organization [employer] Address [address] 7[address] [place] [address] Care Team Providers Care Car Cleaner Name Role Phone EdilsonCarmen dixon Primary Care Provider + [phone] Reason for Visit * Reason Comments Med Refill Encounter Details Date Type Department Care Team ([facility] st Contact Info) Description 01/13/2024 Refill [facility] MEDICINE [address] [place] [address] Rox Sutton MD [address] [place] [address] Pain Social History Tobacco Use Types Packs/Day [...] Description 10/20/2024 2:30 PM EST Office Visit [facility] OPTOMETRY [address] [place] [address] Lewis, Tova, OD [address] [place] [address] 10/21/2024 1:30 PM EST Clinical Support [facility] MEDICINE [address] [place] [address] 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 RN documented as of this encounter Visit Diagnoses Diagnosis Pain Generalized pain documented in this encounter Additional Health Concerns Assessment Noted Time PHQ-9 Depression Total Score: 21 023 11:26 AM EST documented as of this encounter Care Teams Car Cleaner Relationship Specialty Start Date End Date Carmen Bertrand DO [address] [place] [address] PCP - General Family Medicine 08/18/18 documented as of this encounter
--- OUTSIDE RECORDS SUMMARY | 2024-09-17 11:43 | XMS_ITS | Encounter Summary ---
Author Organization [employer] Address [address] [facility] 7t [place] [address] Care Team Providers Care Meat Wrapper Name Role Phone Carmen Bertrand DO Primary Care Provider + [phone] Reason for Visit * Reason Comments Med Refill Encounter Details Date Type Department Care Team ([facility] st Contact Info) Description 09/07/2024 Refill [facility] MEDICINE [address] [place] [address] Carmen Bertrand DO [address] [place] [address] Chronic low back pain, unspecified back pain [...] your housing situation today? I have pravin sing 04/27/[address] you li [...] 2:30 PM EST Office Visit [facility] OPTOMETRY [address] [place] [address] Lewis, Tova, OD [address] [place] [address] 10/21/2024 1:30 PM EST Clinical Support [facility] MEDICINE [address] [place] [address] 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, RULA documented as of this encounter Visit Diagnoses Diagnosis Chronic low back pain, unspecified back pain laterality, unspecified whether sciatica present documented in this encounter Additional Health Concerns Assessment Noted Time PHQ-9 Depression Total Score: 22 024 11:00 AM EDT documented as of this encounter Care Teams Meat Wrapper Relationship Specialty Start Date End Date Carmen Bertrand DO [address] [place], [place] [phone] PCP - General Family Medicine 08/18/18 documented as of this encounter
--- OUTSIDE RECORDS SUMMARY | 2024-09-17 11:43 | XMS_ITS | Encounter Summary ---
Author Organization [employer] Address [address] [facility] 7t [place] [address] Care Team Providers Care Director Advertising Name Role Phone Carmen Bertrand DO Primary Care Provider [phone] Reason for Visit * Reason Onset Date Comments Prior Authorization 08/30/2024 Encounter Details Date Type Department Care Team ([facility] Contact Info) Description 08/30/2024 Telephone [facility] MEDICINE [address] [place] [address] Carmen Bertrand DO [address] [place] [address] Prior Authorization Social History Tobacco Use Types Packs/Day Years [...] encounter Miscellaneous Notes * Telephone Encounter - Baljit Mcqueen - 08/30/2024 2:55 PM EST TC from pt needing PA for Tirzepatide-Weight Management (Zepbound) 2.5 MG/0.5ML solution auto-injector documented in this encounter Plan of Treatment Upcoming Encounters Date Type Department Care Team (Late st Contact Info) Description 10/20/2024 2:30 PM EST Office Visit [facility] OPTOMETRY [address] [place] [address] Tova Saucedo, OD [address] [place] [address] 10/21/2024 1:30 PM EST Clinical Support [facility] MEDICINE [address] [place] [address] 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 RN documented as of this encounter Visit Diagnoses Not on filedocumented in this encounter Additional Health Concerns Assessment Noted Time PHQ-9 Depression Total Score: 22 024 11:00 AM EDT documented as of this encounter Care Teams Director Advertising Relationship Specialty Start Date End Date Carmen Bertrand DO [address] [place] [address] PCP - General Family Medicine 08/18/18 documented as of this encounter
--- OUTSIDE RECORDS SUMMARY | 2024-09-17 11:43 | XMS_ITS | Encounter Summary ---
Author Organization [employer] Address [address] [place] [address] 7t [place] [address] Care Team Providers Care Medical Doctor Nuclear Medicine Name Role Phone EdilsonCarmen dixon Primary Care Provider + [phone] Reason for Visit * Reason Comments Med Refill Encounter Details Date Type Department Care Team ([facility] Contact Info) Description 02/03/2023 Refill [facility] MEDICINE [address] [place] [address] Leticia Ramirez MD [address] [place] [address] Nonintractable headache, unspecified chronicity pattern, unspecified headache type Social History Tobacco Use Types Packs/Day [...] suspected to have Coronavirus/COVID-19? No / Unsure 01/21/2023 1:34 PM EDT documented as of this encounter Plan of Treatment Upcoming Encounters Date Type Department Care Team (Late Contact Info) Description 10/20/2024 2:30 PM EST Office Visit [facility] OPTOMETRY [address] [place], [place] [phone] Tova Saucdeo, OD [address] [place] [address] 10/21/2024 1:30 PM EST Clinical Support [facility] MEDICINE [address] [place], [place] [phone] 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 RN documented as of this encounter Visit Diagnoses Diagnosis Nonintractable headache, unspecified chronicity pattern, unspecified headache type documented in this encounter Additional Health Concerns Assessment Noted Time PHQ-9 Depression Total Score: 16 023 12:22 PM EST documented as of this encounter Care Teams Medical Doctor Nuclear Medicine Relationship Specialty Start Date End Date Carmen Bertrand DO [address] [place] [address] PCP - General Family Medicine 08/18/18 documented as of this encounter
--- OUTSIDE RECORDS SUMMARY | 2024-09-17 11:44 | XMS_ITS | Encounter Summary ---
Author Organization [employer] Address [address] [place] [address] 7t [place] [address] Care Team Providers Care Last Remodeler Repairer Name Role Phone Carmen Bertrand DO Primary Care Provider Reason for Referral * Consultation (Routine) - Canceled Specialty Diagnoses / Procedures Referred By Jackie charlton Referred To Contact Breast Surgery Diagnoses Breast abscess Carmen Bertrand DO [address] [place] [address] Phone: tel: fax: Referral ID Status Reason Start Date Expiration Date Visits Requested Visits Authorized [id number] Canceled Specialty Services Required 08/24/2024 08/24/2025 1 1 * Hospital - Outpatient (Routine) - Closed Specialty Diagnoses / Procedures Referred By Jackie charlton Referred To Contact Diagnoses YAMILETH (obstructive sleep apnea) Procedures Polysomnography Carmen Bertrand DO [address] [place] [address] Phone: tel: fax: [address] Phone: tel: fax: Referral ID Status Reason Start Date Expiration Date Visits Re quested Visits Authorized [id number] Closed 08/24/2024 08/24/2025 1 1 * Consultation (Routine) - Canceled Specialty Diagnoses / Procedures Referred By Contac t Referred To Contact Otolaryngology Diagnoses Hoarseness Carmen Bertrand DO [address] [place] [address] Phone: tel: fax: Referral ID Status Reason Start Date Expiration Date Visits Requested Visits Authorized [id number] Canceled Specialty Services Required 08/24/2024 08/24/2025 1 1 * Consultation (Routine) - Closed Specialty Diagnoses / Procedures Referred By Jackie charlton Referred To Contact Audiology Diagnoses Decreased hearing of right ear Carmen Bertrand DO [address] [place] [address] Phone: tel: fax: Referral ID Status Reason Start Date Expiration Date V isits Requested Visits Authorized [id number] Closed Specialty Services Required 08/24/2024 08/24/2025 1 1 Encounter Details Date Type Department Care Team (Late st Contact Info) Description 08/24/2024 10:45 AM EST Office Visit [facility] MEDICINE [address] [place] [phone] Carmen Bertrand DO [address] [place] [phone] Essential hypertension (Primary Dx); Other hyperlipidemia; Fatty [...] neoplasm of colon; Screening for colon cancer Social History Tobacco Use Types Packs/Day Years [...] AM EDT documented as of this encounter Last Filed Vital Signs Vital Sign Reading Time Taken Comments Blood Pressure 128/78 08/24/2024 1:06 PM EST Pulse 89 08/24/2024 10:03 AM EST Temperature 36 ??C (96.8 ??F) 08/24/2024 10:03 AM EST Respiratory Rate 20 08/24/2024 10:03 AM EST Oxygen Saturation - - Inhaled Oxygen Concentration - - Weight 168 kg (370 lb) 08/24/2024 10:03 AM EST Height 170.2 cm (5' 7 ) 08/24/2024 10:03 AM EST Body Mass Index 57.95 08/24/2024 10:03 AM EST documented in this encounter Plan of Treatment Upcoming Encounters Date Type Department Care Team (Late st Contact Info) Description 10/20/2024 2:30 PM EST Office Visit [facility] OPTOMETRY [address] [place] [address] Lewis, Tova, OD [address] [place] [address] 10/21/2024 1:30 PM EST Clinical Support [facility] MEDICINE [address] [place], [place] [phone] 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 RN Scheduled Orders Name Type Priority Associated Diagnoses Orde r Schedule Polysomnography Sleep Center Routine YAMILETH (obstructive sleep apnea) Expected: 08/24/2024 (Approximate), Expires: 08/24/2025 Scheduled Referrals Name Type Priority Associated Diagnoses Orde r Schedule Referral to Audiology Outpatient Referral Routine Decreased hearing of right ear Expected: 08/24/2024 (Approximate), Expires: 08/24/2025 Referral to ENT Outpatient Referral Routine Hoarseness Expected: 08/24/2024 (Approximate), Expires: 08/24/2025 Referral to Breast Surgery Outpatient Referral Routine Breast abscess Expected: 08/24/2024 (Approximate), Expires: 08/24/2025 documented as of this encounter Procedures Procedure Name Priority Date/Time Associated Diagnosis Comments LAB COLOGUARD?? COLON CANCER SCREEN Routine 08/31/2024 10:33 AM EST Screening for colon cancer VITAMIN D,25-OH,TOTAL,IA Routine 08/24/2024 11:57 AM EST [...] right ear Healthcare maintenance BMI 50.0-59.9, adult ([facility]) Encounter for screening for malignant neoplasm of [...] right ear Healthcare maintenance BMI 50.0-59.9, adult ([facility]) Encounter for screening for malignant neoplasm of [...] right ear Healthcare maintenance BMI 50.0-59.9, adult ([facility]) Encounter for screening for malignant neoplasm of [...] right ear Healthcare maintenance BMI 50.0-59.9, adult ([facility]) Encounter for screening for malignant neoplasm of [...] for screening for malignant neoplasm of colon BASIC METABOLIC PANEL Routine 08/24/2024 11:57 AM [...] for screening for malignant neoplasm of colon documented in this encounter Results * (ABNORMAL) Cologuard?? colon cancer screening (08/31/2024 10:33 AM EST) Cologuard Result Positive( A) Negative 09/07/2024 10:16 AM EST [facility] (CLIA #:[id number]) Comment: POSITIVE TEST RESULT. A positive Cologuard [...] (Ashleigh Zhou al, N Engl J Med 2014;370(14):5994-5588.) Cologuard may produce a false negative or false positive result (no colorectal cancer or precancerous polyp present at colonoscopy follow up). A negative Cologuard test result does not guarantee the absence of CRC or advanced adenoma (pre-cancer). The current Cologuard screening interval is every 3 years. ([place] [employer] and U.S. Multi-Society Task Force). Cologuard performance data in a 10,000 patient pivotal study using colonoscopy as the reference method can be accessed at the following location: www.[employer].com/results. Additional description of the Cologuard test process, warnings and precautions can be found at www.[email or web address].com. Stool specimen (specimen) 08/31/2024 10:33 AM EST 09/01/2024 11:06 AM EST Carmen Bertrand DO LAB MOLECULAR DIAGNOSTICS OR DERABLES Final Result [facility] (CLIA #:[id number]) [place] [address], [place] [phone] * (ABNORMAL) Basic Metabolic Panel (08/24/2024 11:57 AM EST) Pathologist [facility] Sodium 141 135 - 145 mmol/L [facility] Potassium 4.2 3.3 - 5.1 mmol/L [facility] Chloride 112(H) 96 - 108 mmol/L [facility] Carbon Dioxide 26 22 - 29 mmol/L [facility] Anion Gap 7(L) 12 - 20 [facility] Urea Nitrogen (BUN) 15 9 - 16 mg/dL [facility] Creatinine, Serum 0.82 0.5 - 1.4 mg/dL [facility] Estimated Glomerular Filt Rate >60 [facility] Comment:Chronic Kidney Disea se: Estimated GFR < 60 mL/min/1.20s6Smsfii Kidney Disease: Estimated GFR < 15 mL/min/1.73m2 Glucose 111 60 - 115 mg/dL [facility] Calcium 9.2 8.4 - 10.2 mg/dL [facility] Blood Venous blood specimen / Unknown 08/24/2024 11:57 AM EST 08/24/2024 1:03 PM EST Carmen Bertrand DO LAB BLOOD ORDERABLES Final R esult [facility] [address] [place] [phone] * CBC (08/24/2024 11:57 AM EST) White Blood Count 9.1 4.8 - 10.8 X10*3/uL [facility] Red Blood Count 4.38 4.20 - 5.50 X10*6/uL [facility] Hemoglobin 13.3 12.0 - 16.0 g/dl [facility] Hematocrit 40.8 37.0 - 47.0 % [facility] Mean Corpuscular Volume 93.2 80.0 - 98.0 fL [facility] Mean Corpuscular Hemoglobin 30.4 27.0 - 33.0 pg [facility] Mean Corpuscular HGB Conc 32.6 31.0 - 35.0 g/dl [facility] Red Cell Distribution Width 14.6 11.0 - 16.0 % [facility] Platelet Count 293 160 - 400 X10*3/uL [facility] Mean Platelet Volume 10.2 9.4 - 12.3 fL [facility] NRBC Pct Auto 0.0 0.0 - 0.2 /100WBC [facility] NRBC Abs Auto 0.000 0.0 - 0.012 X10*3/uL [facility] Blood Venous blood specimen / Unknown 08/24/2024 11:57 AM EST 08/24/2024 1:03 PM EST Carmen Bertrand DO LAB BLOOD ORDERABLES Final R esult [facility] [address] [place] [phone] * Hemoglobin A1c (08/24/2024 11:57 AM EST) Hemoglobin A1c 6.0 <6.0 % [facility] Comment:Hemoglobin A1C Refer ence Range Adults: 4.8 - 6.0 % Non diabetic: < 6.0 % Goal: < 7.0 %Additional Action Suggested: > 8.0 %Note: Hemoglobin A1c results are invalid for patients with abnormal amounts of HbF. Blood transfusions may impact the HbA1c concentration in the patient sample. Estimated Average Glucose 126 mg/dL [facility] Comment:eAG = Estimated ave rage glucose which is %A1C expressed asaverage glucose, using the formula of the [id number]-[id number] Glucose study (ADAG), Diabetes Care, Vol.31,#8,Mar. 2007 Blood Venous blood specimen / Unknown 08/24/2024 11:57 AM EST 08/24/2024 1:03 PM EST Carmen Bertrand DO LAB BLOOD ORDERABLES Final R esult Performing Organization Address City/[facility]/ZIP Co de Phone Number [facility] [address] [place] [phone] * Hepatic Function Panel (08/24/2024 11:57 AM EST) Bilirubin, Total 0.4 0.0 - 1.0 mg/dL [facility] Bilirubin, Direct 0.2 0.0 - 0.5 mg/dL [facility] Aspartate Amino Transferase 29 5 - 31 U/L [facility] Alanine Aminotransferase 30 0 - 31 U/L [facility] Total Protein 7.5 6.5 - 8.0 g/dL [facility] Albumin Level 3.6 3.5 - 5.0 g/dL [facility] Alkaline Phosphatase 96 39 - 117 U/L [facility] Blood Venous blood specimen / Unknown 08/24/2024 11:57 AM EST 08/24/2024 1:03 PM EST Carmen Bertrand DO LAB BLOOD ORDERABLES Final R esult Performing Organization Address [facility] Co de Phone Number [facility] [address] [place] [phone] * (ABNORMAL) Vitamin D, 25-Hydroxy, Total, Immunoassay (08/24/2024 11:57 AM EST) Vitamin D 25-OH Total 19.8(L) >30 ng/mL [facility] Comment:Health Based Referen ce Values*< 20 ng/mL Ncyhyfrxd36-23 ng/mL Insufficient> 30 ng/mL Sufficient*Alen KOTHARI. N [...] esult Performing Organization Address [facility] Co de Phone Number [facility] [address] [place] [phone] * TSH (08/24/2024 11:57 AM EST) Thyroid Stimulating Hormone 1.83 0.32 - 4.0 uIU/mL [facility] Comment:TSH 3rd Generation ( [facility]) Blood Venous blood specimen / Unknown 08/24/2024 11:57 AM EST 08/24/2024 1:03 PM EST Carmen Bertrand DO LAB BLOOD ORDERABLES Final R esult Performing Organization Address [facility] Co de Phone Number [facility] [address] [place] [phone] * (ABNORMAL) Lipid Panel, Standard (08/24/2024 11:57 AM EST) Triglycerides 82 <150 mg/dL [facility] Comment:Desirable Triglyceri de: less than 150 mg/dLBorderline High Triglyceride 150-199 mg/dLHigh Triglyceride: 200-499 mg/dLVery High Triglyceride: greater than or equal to 5OO mg/dL Cholesterol 136 <200 mg/dL [facility] Comment:Desirable Cholestero l: less than 200 mg/dLBorderline High Cholesterol: 200-239 mg/dLHigh Cholesterol: greater than 239 mg/dL LDL Cholesterol Calculated 81 <100 mg/dL [facility] Comment:Desirable LDL: less than 100 mg/dLNear Optimal/Above Optimal LDL: 110- 129 mg/dLBorderline High LDL: 130-159 mg/dLHigh LDL: 160-189 mg/dLVery High LDL: greater than or equal to 190 mg/dL HDL Cholesterol 39(L) >40 mg/dL [facility] Comment:Desirable HDL: great er than 40 mg/dL Note: This HDL assay may give artificially low results in patients with liver disease. Blood Venous blood specimen / Unknown 08/24/2024 11:57 AM EST 08/24/2024 1:03 PM EST Carmen Bertrand DO LAB BLOOD ORDERABLES Final R esult Performing Organization Address City/[facility]/ZIP Co de Phone Number [facility] [address] [place] [phone] * T4, Free (08/24/2024 11:57 AM EST) Free T4 (Free Thyroxine) 0.89 0.71 - 1.85 ng/dL [facility] Blood Venous blood specimen / Unknown 08/24/2024 11:57 AM EST 08/24/2024 1:03 PM EST Carmen Elza DO LAB BLOOD ORDERABLES Final R esult Performing Organization Address City/[facility]/ZIP Co de Phone Number [facility] [address] [place] [phone] documented in this encounter Visit Diagnoses Diagnosis Essential hypertension- Primary Unspecified essential hypertension Other hyperlipidemia Fatty liver Other chronic nonalcoholic liver disease Prediabetes Other abnormal glucose Major depression, recurrent, chronic (CMS/HCC) Leukocytosis, unspecified type Chronic migraine Mild persistent asthma without complication Nephrolithiasis Calculus of kidney Epigastric pain Abdominal pain, epigastric Chronic bilateral low back pain without sciatica Chronic pain of both knees YAMILETH (obstructive sleep apnea) Obstructive sleep apnea (adult) (pediatric) Tinea pedis of left foot Breast abscess Inflammatory disease of breast Hoarseness Dysphonia Decreased hearing of right ear Healthcare maintenance BMI 50.0-59.9, adult (CMS/HCC) Encounter for screening for malignant neoplasm of colon Screening for colon cancer Special screening for malignant neoplasms, colon documented in this encounter Additional Health Concerns Assessment Noted Time PHQ-9 Depression Total Score: 22 024 11:00 AM EDT documented as of this encounter Care Teams Last Remodeler Repairer Relationship Specialty Start Date End Date Carmen Bertrand DO [address] [place] [address] PCP - General Family Medicine 08/18/18 documented as of this encounter
--- OUTSIDE RECORDS SUMMARY | 2024-09-17 11:44 | XMS_ITS | Encounter Summary ---
Author Organization [employer] Address [address] [facility] [place] [address] Care Team Providers Care Director Of Therapy Services Name Role Phone EdilsonCarmen dixon Primary Care Provider + [phone] Encounter Details Date Type Department Care Team (Latest Contact Info) Description 08/24/2024 Travel Social History Tobacco Use Types Packs/Day Years [...] 2:30 PM EST Office Visit [facility] OPTOMETRY [address] [place], [place] [phone] Tova Saucedo, OD [address] [place] [address] 10/21/2024 1:30 PM EST Clinical Support [facility] MEDICINE [address] [place] [address] 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, RULA documented as of this encounter Visit Diagnoses Not on filedocumented in this encounter Additional Health Concerns Assessment Noted Time PHQ-9 Depression Total Score: 22 024 11:00 AM EDT documented as of this encounter Care Teams Director Of Therapy Services Relationship Specialty Start Date End Date Carmen Bertrand DO [address] [place], [place] [phone] PCP - General Family Medicine 08/18/18 documented as of this encounter
[2024-09-17 12:28] LABS: Anion Gap 13 (12-20); Blood Urea Nitrogen 15 mg/dL (9-16); Calcium 9.1 mg/dL (8.4-10.2); Carbon Dioxide 23 mmol/L (22-29); Chloride 110 mmol/L (96-108); Estimated Glomerular Filt Rate > 60; Potassium 4.1 mmol/L (3.3-5.1); Sodium 142 mmol/L (135-145)
[2024-09-17 12:34] LABS: Rheumatoid Factor 28.2 IU/mL (<15.0)
[2024-09-24 10:59] LABS: Anti Nuclear Antibody Pattern Nuclear, Speckled; Anti Nuclear Antibody Screen POSITIVE (NEGATIVE); Anti Nuclear Antibody Titer 1:40 titer
== END 2024-09-17 10:30 | disposition home or self-care (01) ==
LOC: HO.HOSX 10:29
PROVIDERS: Internal Medicine Nephrology; PCP Family Medicine; Visit Provider Physical Medicine & Rehabilitation
DX: M25.551 Pain in right hip (principal); M53.3 Sacrococcygeal disorders, not elsewhere classified; M46.1 Sacroiliitis, not elsewhere classified; M16.0 Bilateral primary osteoarthritis of hip; N20.0 Calculus of kidney
CPT/HCPCS: 36415; 72200; 73502; 80051; 82310; 82565; 84520; 86038; 86039; 86431; 99202

== ENCOUNTER → 2024-09-17 11:03 | Outpatient (BNV) | payer OTHER, SELFPAY ==
[2022-10-22 13:00] VITALS: BP 128/72; BP 148/88; BMI 63.7
[2023-01-30 14:13] VITALS: BP 140/60
== END ==
PROVIDERS: PCP Family Medicine; Visit Provider Radiology Diagnostic Radiology
DX: M25.551 Pain in right hip (principal); M53.3 Sacrococcygeal disorders, not elsewhere classified
CPT/HCPCS: 72200; 73502

== ENCOUNTER 2024-09-29 14:10 | Emergency (ER) | payer OTHER, SELFPAY ==
[2022-10-22 13:00] VITALS: BP 128/72; BP 148/88; BMI 63.7
[2023-01-30 14:13] VITALS: BP 140/60
--- NOTE | 2024-09-29 14:13 | ECG_ITS ---
Test Reason : cp Blood Pressure : */* mmHG Vent. Rate : 59 BPM Atrial Rate : 59 BPM P-R Int : 176 ms QRS Dur : 82 ms QT Int : 426 ms P-R-T Axes : 58 35 45 degrees QTcB Int : 421 ms Sinus bradycardia Otherwise normal ECG When compared with ECG of 02-Mar-2024 12:37, No significant change was found Referred By: Ankita Dickens Electronically Signed By: MARLENE BAUER MD
[2024-09-29 15:03] VITALS: BP 144/77; PULSE 58; RESP 20; TEMP 36.5; O2SAT 99; BMI 53.4
--- NOTE | 2024-09-29 15:04 | ED.CHESTPAIN ---
HPI - Chest Pain General Chief Complaint: Chest Pain Stated Complaint: Chest Pain Time Seen by Provider: 09/30/24 01:13 History of Present Illness ED Provider: Parish SYKES narrative: The patient is a 49-year-old woman with a history coronary disease. She says that she has 2 stents. Over the last few days he has had multiple episodes of chest pains in her left upper chest. She describes these episodes as brief but unpleasant. They last on the order of seconds. They can happen a few times per hour. She has had no fever, sweats, chills. No cough or sputum. No pain or swelling in her legs. Related Data Home Medications ?Medication ?Instructions ?Recorded ?Confirmed baclofen 10 mg tablet 10 mg PO TID PRN muscle spasm 11/03/20 06/28/24 albuterol sulfate 90 mcg/actuation 2 puff PO Q4-6H PRN Wheezing 12/01/20 06/28/24 aerosol inhaler (Ventolin HFA) atorvastatin 80 mg tablet (Lipitor) 80 mg PO BEDTIME 12/01/20 06/28/24 fluticasone propionate 50 2 spray intranasal DAILY 12/01/20 06/28/24 mcg/actuation nasal spray,suspension blood pressure test kit-large #1 ea 12/19/20 06/28/24 topiramate 50 mg tablet 50 mg PO BID 12/19/20 06/28/24 cholecalciferol (vitamin D3) 50 50 mcg PO DAILY 03/13/22 06/28/24 mcg (2,000 unit) capsule lisinopril 30 mg tablet 30 mg PO DAILY 07/01/22 06/28/24 metformin 500 mg tablet,extended 500 mg PO QPM 07/01/22 06/28/24 release 24 hr metoprolol succinate 50 mg 50 mg PO DAILY 07/01/22 06/28/24 tablet,extended release 24 hr tramadol 50 mg tablet 50 mg PO Q8H PRN severe pain 10/24/22 06/28/24 capsaicin 0.025 % topical cream 1 appl topical BID PRN mild pain 10/25/22 06/28/24 metronidazole 0.75 % topical gel 1 appl topical DAILY PRN Rash 10/25/22 06/28/24 albuterol sulfate 2.5 mg/3 mL 2.5 mg inhalation Q4-6H PRN 11/15/22 06/28/24 (0.083 %) solution for nebulization Wheezing aspirin 81 mg chewable tablet 1 tab PO DAILY 11/13/23 06/28/24 fluticasone propionate 110 1 puff inhalation BID 11/13/23 06/28/24 mcg/actuation HFA aerosol inhaler famotidine 40 mg tablet 40 mg PO BEDTIME PRN heartburn 02/13/24 06/28/24 ticagrelor 90 mg tablet (Brilinta) 90 mg PO BID 08/31/24 Previous Rx's ?Medication ?Instructions ?Recorded bisacodyl 5 mg tablet,delayed 20 mg (4 x 5 mg) PO ONCE PRN 12/02/23 release (Dulcolax (bisacodyl)) colonoscopy prep 1 day #4 tabs polyethylene glycol 3350 17 238 g PO ONCE PRN laxative effect 12/02/23 gram/dose oral powder (Miralax) 1 day #238 grams tamsulosin 0.4 mg capsule (Flomax) 0.4 mg PO BEDTIME #7 caps 02/07/24 isosorbide mononitrate 60 mg 60 mg PO DAILY #30 tabs 02/12/24 tablet,extended release 24 hr phenazopyridine 200 mg tablet 200 mg PO BID #10 tabs 03/02/24 (Pyridium) pyridoxine (vitamin B6) 100 mg 100 mg PO DAILY 90 days #90 tabs 03/25/24 tablet omeprazole 20 mg capsule,delayed 40 mg (2 x 20 mg) PO DAILY #60 caps 05/13/24 release allopurinol 100 mg tablet 100 mg PO DAILY 90 days #90 tabs 06/14/24 ticagrelor 60 mg tablet (Brilinta) 60 mg PO BID 90 days #180 tabs 06/24/24 ezetimibe 10 mg tablet 10 mg PO DAILY #30 tabs 07/22/24 hydrochlorothiazide 12.5 mg tablet 12.5 mg PO DAILY #30 tabs 07/26/24 Allergies Allergy/AdvReac Type Severity Reaction Status Date / Time penicillin G [PENICILLIN G] Allergy Severe DIFFICULTY Verified 09/29/24 15:05 BREATHING semaglutide [From Ozempic] AdvReac Severe Stomach Verified 09/29/24 15:05 Upset Review of Systems Review of Systems: Yes all other systems are reviewed and are negative PMFSH Past Medical History Medical History Morbid obesity Hidradenitis suppurativa CAD (coronary artery disease) Subsequent non-ST elevation myocardial infarction (NSTEMI) within 4 weeks of initial infarction Non-ST elevation TN (NSTEMI) YAMILETH on CPAP Hyperlipidemia PTSD (post-traumatic stress disorder) Fatty liver Smoker Depression Obesity Leukocytosis Frequent UTI Asthma Mass of throat Chronic pain Kidney stone Migraine HTN (hypertension) Surgical History H/O excision of mass (06/28/24) Hx of cystoscopy Stented coronary artery History of heart artery stent History of lumpectomy of left breast (10/22/21) History of lithotripsy History of endometrial ablation Hx of colonoscopy History of breast lump/mass excision History of tonsillectomy H/O: hysterectomy Family History Family History Father Hypertension Mother Hypertension Osteoporosis Hx of bilateral cataract extraction Paternal Grandmother Diabetes Sister Asthma Maternal Uncle Throat cancer Maternal Aunt Ovarian cancer Breast cancer Social History Social History (Updated 09/17/24 @ 10:44 by LEE Moses) Household Members: Children Housing: Apartment Are you a primary patient care secretary to a significant other at home: No Do you presently have visiting nurse or other home services: Yes ([employer]-daughter) Alcohol intake: never Comment: pt refusing alarms Patient Tobacco Use Status: Current everyday Tobacco user Tobacco use type: Cigarette Cigarette Packs Per Day: 0.5 Cigarettes Per Day: 10 Years Smoked: 30 Second Hand Smoke Exposure: No Advance Directives Date on File: 10/28/22 service: No Current occupational status: unemployed and retired Physical Exam Vital Signs: Vital Signs: Last Vital Signs Temp 98.5 F 09/30/24 01:38 Pulse 77 09/30/24 01:38 Resp 19 09/30/24 01:38 BP 139/88 09/30/24 01:38 Pulse Ox 100 09/30/24 01:38 O2 Del Method Room Air 09/30/24 01:38 BMI result Body Mass Index 53.4 Const: Other: The patient is awake, alert, pleasant, cooperative. She is well-groomed. She looks entirely well. HEENT: Other: Face is symmetrical. Mucous membranes moist. Eyes: General: appearance normal, both eyes and all related structures Neck: Neck: Yes full ROM and Yes no JVD Chest: Other: There is some left upper chest wall tenderness at near the left upper sternal border. Resp: Effort & Inspection: normal respiratory effort Auscultation: clear to auscultation bilaterally Cardio: Rate: regular rate Rhythm: regular rhythm Heart sounds: S1 normal heart sound present and S2 normal heart sound present Skin: Other: Skin is dry and unremarkable Neuro: Other: The patient is awake and alert with a normal mental status. Face is symmetrical. Speech is clear. Eye movements are intact. She moves her extremities normally and appropriately. Her gait is normal. Extrem: Other: no calf swelling or tenderness. No peripheral edema. Course Course Course Narrative: This is a Rapid Medical Exam performed in triage by Ankita Dickens PA-C. Full HPI, ROS and PE to be performed by primary ED provider. 49-year-old female with a past medical history gastroparesis, NSTEMI s/p cardiac catheterization, diabetes, osteoarthritis, obesity, HTN, HLD, renal stones, presenting to the ED c/o midsternal CP x3 days w/SOB sent in from . PE: nontoxic appearing, talking in complete sentences, lungs CTA, RRR Plan: EKG, labs, CXR, viral testing Medical Decision Making Medical Decision Making MDM Narrative: The patient is a 49-year-old woman. She reports history of coronary disease and previous Coronary stenting. She presents today with a complaint of chest pain that sounds non anginal. She describes intermittent brief, instantaneous episodes of sharp discomfort in her left upper chest. She has an unremarkable EKG which is bradycardic. Vital signs are stable aside from some mild bradycardia. She looks entirely well. She has 2 undetectable troponins. Other labs unremarkable. I think it is very unlikely her symptoms representb a the reoccurrence of an the acute coronary syndrome. she looks quite well. I have no suspicion for any other dangerous vascular process or infectious process. She is reassured. Perhaps her symptoms are muscular. She may be discharged. Lab Data 09/29/24 15:25 09/29/24 15:25 Labs: Lab Results 09/29/24 09/30/24 Range/Units 15:25 00:01 WBC 11.0 H (4.8-10.8) X10*3/uL RBC 4.22 (4.20-5.50) X10*6/uL Hgb 13.1 (12.0-16.0) g/dl Hct 39.2 (37.0-47.0) % MCV 92.9 (80.0-98.0) fL MCH 31.0 (27.0-33.0) pg MCHC 33.4 (31.0-35.0) g/dl RDW 14.3 (11.0-16.0) % Plt Count 284 (160-400) X10*3/uL MPV 9.6 (9.4-12.3) fL Immature Gran % (Auto) 0.6 H (0.0-0.4) % Neut % (Auto) 54.4 (45-73) % Lymph % (Auto) 32.6 (20-40) % [place] % (Auto) 9.2 (2-11) % Eos % (Auto) 2.7 (0-4) % Baso % (Auto) 0.5 (0-2) % Lymph # (Auto) 3.6 (1.2-4.9) X10*3/uL [place] # (Auto) 1.0 (0.1-1.2) X10*3/uL Eos # (Auto) 0.3 (0.0-0.4) X10*3/uL Baso # (Auto) 0.1 (0.0-0.2) X10*3/uL Abs Immat Gran (auto) 0.07 H (0.00-0.03) X10*3/uL Absolute Neuts (auto) 6.0 (2.0-8.3) x10*3/uL Absolute Nucleated RBC 0.000 (0.0-0.012) X10*3/uL Nucleated RBC % (auto) 0.0 (0.0-0.2) /100WBC PT 11.4 (10.9-12.4) SEC INR 1.0 (0.9-1.1) Sodium 140 (135-145) mmol/L Potassium 4.6 (3.3-5.1) mmol/L Chloride 108 (96-108) mmol/L Carbon Dioxide 25 (22-29) mmol/L Anion Gap 12 (12-20) BUN 12 (9-16) mg/dL Creatinine 0.82 (0.5-1.4) mg/dL Estim Creat Clear Calc 139.5 Estimated GFR > 60 Random Glucose 97 (60-115) mg/dL Calcium 9.6 (8.4-10.2) mg/dL Magnesium 1.9 (1.6-2.6) mg/dL Total Bilirubin 0.5 (0.0-1.0) mg/dL Direct Bilirubin 0.2 (0.0-0.5) mg/dL AST 22 (5-31) U/L ALT 21 (0-31) U/L Alkaline Phosphatase 94 (39-117) U/L Troponin I High Sens < 2.7 < 2.7 (<3.5-17.0) ng/L B-Natriuretic Peptide 45 (<100) pg/mL Total Protein 7.8 (6.5-8.0) g/dL Albumin 3.6 (3.5-5.0) g/dL Influenza Type A (PCR) NEGATIVE (Negative) Influenza Type B (PCR) NEGATIVE (Negative) RSV RNA Qual (PCR) NEGATIVE (Negative) SARS-CoV-2 RNA (RT-PCR) NEGATIVE (Negative) Discharge Plan Discharge Clinical Impression: Chest pain Patient Disposition: Home, Self-Care Additional Instructions: Your testing in the emergency room today is very reassuring. I suspect that these episodes of pain may be muscular rather than from an internal organ. Usually pains in the chest which are extremely brief are not dangerous. Please follow up with your regular doctor and/or your serology teacher. If at any point you have persistent discomfort or feel short of breath return to the emergency room for additional evaluation. Prescriptions: No Action polyethylene glycol 3350 [Miralax] 17 gram/dose powder 238 g PO ONCE PRN (Reason: laxative effect) 1 Days Qty: 238 0RF Rx Instructions: Take as directed by mouth the day before your procedure. bisacodyl [Dulcolax (bisacodyl)] 5 mg tablet,delayed release (DR/EC) 20 mg PO ONCE PRN (Reason: colonoscopy prep) 1 Days Qty: 4 0RF Rx Instructions: Day before procedure @ 12 noon Take 4 tablets by mouth followed by large glass of water omeprazole 20 mg capsule,delayed release(DR/EC) 40 mg PO DAILY Qty: 60 5RF allopurinol 100 mg tablet 100 mg PO DAILY 90 Days Qty: 90 1RF ezetimibe 10 mg tablet 10 mg PO DAILY Qty: 30 6RF albuterol sulfate [Ventolin HFA] 90 mcg/actuation HFA aerosol inhaler 2 puff PO Q4-6H PRN (Reason: Wheezing) fluticasone propionate 50 mcg/actuation spray,suspension 2 spray intranasal DAILY atorvastatin [Lipitor] 80 mg Tablet 80 mg PO BEDTIME lisinopril 30 mg tablet 30 mg PO DAILY metformin 500 mg tablet extended release 24 hr 500 mg PO QPM capsaicin 0.025 % cream 1 appl topical BID PRN (Reason: mild pain) metronidazole 0.75 % gel 1 appl topical DAILY PRN (Reason: Rash) tamsulosin [Flomax] 0.4 mg capsule 0.4 mg PO BEDTIME Qty: 7 0RF famotidine 40 mg tablet 40 mg PO BEDTIME PRN (Reason: heartburn) phenazopyridine [Pyridium] 200 mg tablet 200 mg PO BID Qty: 10 0RF Rx Instructions: Take medication with a meal baclofen 10 mg tablet 10 mg PO TID PRN (Reason: muscle spasm) topiramate 50 mg tablet 50 mg PO BID (DME) blood pressure test kit-large Kit See Rx Instructions .ROUTE DIRECTED Qty: 1 Rx Instructions: As directed tramadol 50 mg tablet 50 mg PO Q8H PRN (Reason: severe pain) cholecalciferol (vitamin D3) 50 mcg (2,000 unit) capsule 50 mcg PO DAILY metoprolol succinate 50 mg tablet extended release 24 hr 50 mg PO DAILY aspirin 81 mg tablet,chewable 1 tab PO DAILY fluticasone propionate 110 mcg/actuation HFA aerosol inhaler 1 puff inhalation BID Brilinta 60 mg tablet 60 mg PO BID 90 Days Qty: 180 1RF Rx Instructions: Dose reduced hydrochlorothiazide 12.5 mg tablet 12.5 mg PO DAILY Qty: 30 3RF albuterol sulfate 2.5 mg /3 mL (0.083 %) solution for nebulization 2.5 mg inhalation Q4-6H PRN (Reason: Wheezing) isosorbide mononitrate 60 mg tablet extended release 24 hr 60 mg PO DAILY Qty: 30 5RF Rx Instructions: Dose increased pyridoxine (vitamin B6) 100 mg tablet 100 mg PO DAILY 90 Days Qty: 90 3RF Brilinta 90 mg tablet 90 mg PO BID Referrals: Carmen Bertrand DO [Primary Care Provider] - Mars Hutchinson MD [Physician] - Interventions: ED Discharge Assessment Last Done: 09/30/24 01:38 Discharge Date/Time: 09/30/24 01:39 Print Language: German
[2024-09-29 15:29] LABS: MANUAL DIFF FLAG NO
[2024-09-29 15:31] LABS: Basophils Absolute Auto 0.1 X10*3/uL (0.0-0.2); Basophils Percent Auto 0.5 % (0-2); Eosinophils Absolute Auto 0.3 X10*3/uL (0.0-0.4); Eosinophils Percent Auto 2.7 % (0-4); Hematocrit 39.2 % (37.0-47.0); Hemoglobin 13.1 g/dl (12.0-16.0); Imm Gran Abs Auto 0.07 X10*3/uL (0.00-0.03); Imm Gran Pct Auto 0.6 % (0.0-0.4); Lymphocytes Absolute Auto 3.6 X10*3/uL (1.2-4.9); Lymphocytes Percent Auto 32.6 % (20-40); Mean Corpuscular HGB Conc 33.4 g/dl (31.0-35.0); Mean Corpuscular Volume 92.9 fL (80.0-98.0); Mean Platelet Volume 9.6 fL (9.4-12.3); Monocytes Percent Auto 9.2 % (2-11); Neutrophils Percent Auto 54.4 % (45-73); Platelet Count 284 X10*3/uL (160-400); Red Blood Count 4.22 X10*6/uL (4.20-5.50); Red Cell Distribution Width 14.3 % (11.0-16.0)
[2024-09-29 15:36] LABS: Prothrombin Time 11.4 SEC (10.9-12.4)
[2024-09-29 15:56] LABS: Alanine Aminotransferase 21 U/L (0-31); Albumin Level 3.6 g/dL (3.5-5.0); Anion Gap 12 (12-20); Aspartate Amino Transferase 22 U/L (5-31); Bilirubin Direct 0.2 mg/dL (0.0-0.5); Bilirubin Total 0.5 mg/dL (0.0-1.0); Blood Urea Nitrogen 12 mg/dL (9-16); Calcium 9.6 mg/dL (8.4-10.2); Carbon Dioxide 25 mmol/L (22-29); Chloride 108 mmol/L (96-108); Creatinine Clr Calc Pharmacy 139.5; Estimated Glomerular Filt Rate > 60; Glucose Random 97 mg/dL (60-115); Magnesium 1.9 mg/dL (1.6-2.6); Potassium 4.6 mmol/L (3.3-5.1); Sodium 140 mmol/L (135-145); Total Protein 7.8 g/dL (6.5-8.0)
[2024-09-29 16:01] LABS: B Type Natriuretic Peptide 45 pg/mL (<100); Troponin-I High Sensitivity < 2.7 ng/L (<3.5-17.0)
[2024-09-29 16:07] LABS: Influenza A PCR NEGATIVE (Negative); Influenza B PCR NEGATIVE (Negative); Resp Syncy Virus RNA Qual PCR NEGATIVE (Negative); SARS COV2 PCR INHOUSE NEGATIVE (Negative)
[2024-09-29 16:48] LABS: Alkaline Phosphatase 94 U/L (39-117)
[2024-09-29 23:44] VITALS: BP 144/81; PULSE 58; RESP 17; TEMP 36.4; O2SAT 98
[2024-09-30 00:27] LABS: Troponin-I High Sensitivity < 2.7 ng/L (<3.5-17.0)
--- OUTSIDE RECORDS SUMMARY | 2024-09-30 01:23 | XMS_ITS | Encounter Summary ---
Author Organization [employer] Address [address] [place] [address] Care Team Providers Care Director Emergency Name Role Phone Carmen Bertrand DO Primary Care Provider [phone] Encounter Details Date Type Department Care Team (Late st Contact Info) Description 09/09/2022 Orders Only [facility] [address] [place], [place] [id number] Carmen Perez LPN Social History Tobacco Use [...] Description 10/20/2024 2:30 PM EST Office Visit [facility] OPTOMETRY [address] [place] [address] Tova Saucedo, OD [address] [place] [address] 10/21/2024 1:30 PM EST Clinical Support [facility] MEDICINE [address] [place] [address] 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 RN documented as of this encounter Visit Diagnoses Not on filedocumented in this encounter Care Teams Director Emergency Relationship Specialty Start Date End Date Carmen Bertrand DO [address] [place] [address] PCP - General Family Medicine 08/18/18 documented as of this encounter
--- OUTSIDE RECORDS SUMMARY | 2024-09-30 01:24 | XMS_ITS | Encounter Summary ---
Author Organization [employer] Address [address] [place] [address] Care Team Providers Care General Manager Farm Name Role Phone ElzaCarmen Primary Care Provider + [phone] Encounter Details Date Type Department Care Team ([facility] Contact Info) Description 09/30/2024 Orders Only GENERIC EXTERNAL DATA DEPARTMENT Provider, Generic External Data Social History Tobacco Use Types Packs/Day Years Used Date Smoking Tobacco: Every Day Cigarettes Passive Smoke Exposure: Current Smokeless Tobacco: Never Alcohol Use Standard Drinks/Week Comments Never 0 (1 standard drink = 0.6 oz pur e alcohol) Depression Answer Date Recorded Patient Health Questionnaire-9 Score 04/27/2024 Patient Health Questionnaire-9 Score 22 04/27/2024 [...] Answer Date Recorded Patient Health Questionnaire-2 Score 0 09/27/2024 Internet Access Answer Date Recorded Internet Access Q1 Yes 04/27/2024 Internet Access Q2 Not on file 04/27/2024 Comments No Sex and Gender Information Value Date Recorded Sex Assigned at Female 06/17/2022 10:17 AM EDT Legal Sex Female 10:17 AM EDT Gender Identity Female 06/17/2022 10:17 AM EDT Sexual Orientation Straight 06/17/2022 10 :17 AM EDT documented as of this encounter Plan of Treatment Upcoming Encounters Date Type Department Care Team (Late st Contact Info) Description 10/20/2024 2:30 PM EST Office Visit [facility] OPTOMETRY [address] [place] [address] LewisTova austin, OD [address] [place] [address] 10/21/2024 1:30 PM EST Clinical Support [facility] MEDIC[facility] [address] [place] [address] 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, RULA documented as of this encounter Procedures Procedure Name Priority Date/Time Associated Diagnosis Comments HIGH SENSITIVITY TROPONIN I Routine 09/30/2024 12:01 AM EST documented in this encounter Results * High Sensitivity Troponin I (09/30/2024 12:01 AM EST) TROPONIN I HIGH SENSITIVITY <2.7 <3.5 - 17.0 ng/L [facility] Comment:The [place] high sens itivity Troponin-I results should beused in conjunction with other diagnostic information suchas ECG, clinical observations and information, and patientsymptoms to aid in the diagnosis of [place]. 09/30/2024 12:0 1 AM EST 09/30/2024 12:04 AM EST us Generic External Data Provider LAB BLOOD ORDERAB LES Final Result [facility] [address] [place] [phone] documented in this encounter Visit Diagnoses Not on filedocumented in this encounter Additional Health Concerns Assessment Noted Time PHQ-9 Depression Total Score: 22 024 11:00 AM EDT documented as of this encounter Care Teams General Manager Farm Relationship Specialty Start Date End Date Carmen Bertrand DO [address] [place] [address] PCP - General Family Medicine 08/18/18 documented as of this encounter
--- OUTSIDE RECORDS SUMMARY | 2024-09-30 01:24 | XMS_ITS | Encounter Summary ---
Author Organization [employer] Address [address] [facility] 7t [place] [address] Care Team Providers Care Service Vehicle Operator Name Role Phone ElzaCarmen Primary Care Provider + [phone] Encounter Details Date Type Department Care Team ([facility] Contact Info) Description 09/17/2024 Orders Only GENERIC EXTERNAL DATA DEPARTMENT Provider, [...] Description 10/20/2024 2:30 PM EST Office Visit [facility] OPTOMETRY [address] [place] [address] LewisTova austin, OD [address] [place] [address] 10/21/2024 1:30 PM EST Clinical Support [facility] MEDICINE [address] [place] [address] 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 RN documented as of this encounter Procedures Procedure Name Priority Date/Time Associated Diagnosis Comments XR HIP 2 OR 3 VIEWS RIGHT Routine 09/17/2024 5:59 PM EST XR SACROILIAC JOINTS 1-2 VIEWS Routine 09/17/2024 5:59 PM EST RHEUMATOID FACTOR Routine 09/17/2024 11: 45 AM EST REBECCA SCREEN, IFA, W/REFL TITER AND PATTERN Routine 09/17/2024 11:45 AM EST documented in this encounter Results * XR Hip 2 or 3 Views Right (09/17/2024 5:59 PM EST) Anatomical Region Laterality Modality Lower Extremities, Hip Right Radiograp hic Imaging 09/17/2024 5:59 PM EST Narrative 09/17/2024 6:00 PM EST ? [facility] ? [address] ?[place] [address] ?XRay Report ? Signed ? Patient: Maria Luisa Jean,Blaire ?MR#: M ?? [id number] ? : 1975 ?Acct:[id number] ? Age/Sex: 49 / F ?ADM Date: 09/17/24 ? Loc: HO.HOSX ? Attending Dr: Heather Uriarte MD ? Ordering Physician: Heather Aviles ?? Date of Service: 09/17/24 ?? Procedure(s): XR hip RT min 2V ?? Accession Number(s): [id number] ? cc: Carmen Bertrand DO; Heather Aviles ? CLINICAL HISTORY: M25.551 - Pain in right hip ? 2 view, pelvis and right hip ? Comparison: None ? Findings: ?? No acute fracture or dislocation. ?? No significant arthritic change. ?? The soft tissues are unremarkable. ? IMPRESSION: ?? No acute findings. ? This document has been electronically signed by: Mann Garcia MD on ?? 09/17/2024 17:59:52 ? Dictated By: ?Mann Garcia MD ? Signed By: ?<Electronically signed by Mann Garcia MD in OV> ? 09/17/24 1800 ? DD/ 1759 ? TD/TT: 09/17/241758 ? Project Coordinator: ? Procedure Note Geno, Image - 09/17/2024 [facility] [address] [place] [address] [address] [place] [address] XRay Report Signed Patient: Christianne Quiroz#: M [id number] : 1975Acct:[id number] Age/Sex: 49 / FADM Date: 09/17/24 Loc: HO.HOSX Attending Dr: Heather Uriarte MD Ordering Physician: Heather Aviles Date of Service: 09/17/24 Procedure(s): XR hip RT min 2V Accession Number(s): [id number] cc: Carmen Bertrand DO; Heather Aviles CLINICAL HISTORY: M25.551 - Pain in right hip 2 view, pelvis and right hip Comparison: None Findings: No acute fracture or dislocation. No significant arthritic change. The soft tissues are unremarkable. IMPRESSION: No acute findings. This document has been electronically signed by: Mann Garcia MD on 09/17/2024 17:59:52 Dictated By: Mann Garcia MD Signed By: <Electronically signed by Mann Garcia MD in OV> 09/17/24 1800 DD/ 58 TD/TT: 09/17/241758 Project Coordinator: [facility] External Provider IMG XR PROCEDURES Final Result * XR Sacroiliac Joints 1-2 Views (09/17/2024 5:59 PM EST) Anatomical Region Laterality Modality Sacroiliac joint, Pelvis Radiogr aphic Imaging 09/17/2024 5:59 PM EST Narrative 09/17/2024 6:00 PM EST ? [facility] ? [address] ?[place], [place] [address] ?XRay Report ? Signed ? Patient: Maria Luisa LiurahulBlaire ?MR#: M ?? [id number] ? : 1975 ?Acct:[id number] ? Age/Sex: 49 / F ?ADM Date: 09/17/24 ? Loc: HO.HOSX ? Attending Dr: Heather Uriarte MD ? Ordering Physician: Heather Aviles ?? Date of Service: 09/17/24 ?? Procedure(s): XR sacroiliac joint 1-2V ?? Accession Number(s): [id number] ? cc: Carmen Bertrand DO; Heather Aviles ? CLINICAL HISTORY: M53.3 - Sacrococcygeal disorders, not elsewhere classified ? 3 views sacroiliac joints ? Comparison: None ? Findings ?? No acute fractures. ?? No significant degenerative change. No erosions. ? IMPRESSION: ?? No acute findings ? This document has been electronically signed by: Mann Garcia MD on ?? 09/17/2024 17:59:37 ? Dictated By: ?Mann Garcia MD ? Signed By: ?<Electronically signed by Mann Garcia MD in OV> ? 09/17/24 1800 ? DD/ 1759 ? TD/TT: 09/17/24 1759 ? Project Coordinator: ? Procedure Note Geno, Image - 09/17/2024 [facility] [address] [facility] [address] [place] [address] XRay Report Signed Patient: Blaire Quiroz#: M [id number] : 1975Acct:[id number] Age/Sex: 49 / FADM Date: 09/17/24 Loc: GIAN Attending Dr: Heather Uriarte MD Ordering Physician: Heather Aviles Date of Service: 09/17/24 Procedure(s): XR sacroiliac joint 1-2V Accession Number(s): [id number] cc: Carmen Bertrand DO; Heather Aviles CLINICAL HISTORY: M53.3 - Sacrococcygeal disorders, not elsewhereclassified 3 views sacroiliac joints Comparison: None Findings No acute fractures. No significant degenerative change. No erosions. IMPRESSION: No acute findings This document has been electronically signed by: Mann Garcia MD on 09/17/2024 17:59:37 Dictated By: Mann Garcia MD Signed By: <Electronically signed by Mann Garcia MD in OV> 09/17/24 1800 DD/ 58 TD/TT: 09/17/241758 Project Coordinator: [facility] External Provider IMG XR PROCEDURES Final Result * (ABNORMAL) REBECCA Screen,IFA, with Reflex to Titer and Pattern (09/17/2024 11:45 AM EST) Anti Nuclear Antibody Screen POSITIVE (A) NEGATIVE [facility] Comment:REBECCA IFA is a first l ine screen for detecting thepresence of up to approximately 150 autoantibodies invarious autoimmune diseases. A positive REBECCA IFA resultis suggestive of autoimmune disease and reflexes totiter and pattern. Further laboratory testing may beconsidered if clinically indicated.For additional information, please refer tohttp://education.Mebelrama/faq/KQS683(This link is being provided for informational/educational purposes only.) REBECCA Titer 1:40(A) titer [facility] Comment:A low level REBECCA tite r may be present in pre-clinicalautoimmune diseases and normal individuals. Reference Range <1:40 Negative 1:40-1:80 Low Antibody Level >1:80 Elevated Antibody Level REBECCA Pattern Nuclear, Speckled (A) [facility] Comment:Speckled pattern is associated with mixed connectivetissue disease (MCTD), systemic lupus erythematosus(SLE), Sjogren's syndrome, dermatomyositis, andsystemic sclerosis/polymyositis overlap.AC-2,4,5,29: SpeckledInternational Consensus on REBECCA Patterns(https://doi.org/10.1515/ldyj-5671-0482)THIS TEST WAS PERFORMED AT:[facility] [place] [id number] HINTON MD REBECCA TITER 2 (REF LAB) [facility] REBECCA Pattern 2 [facility] REBECCA TITER 3 [facility] REBECCA PATTERN 3 [facility] 09/17/2024 11:4 5 AM EST 09/17/2024 11:45 AM EST us Generic External Data Provider LAB BLOOD ORDERAB LES Final Result Performing Organization Address [facility] Co de Phone Number [facility] [address] [place] [phone] * (ABNORMAL) Rheumatoid Factor (09/17/2024 11:45 AM EST) Rheumatoid Factor 28.2(H) <15.0 IU/mL [facility] 09/17/2024 11:4 5 AM EST 09/17/2024 11:45 AM EST [employer] External Data Provider LAB BLOOD ORDERAB LES Final Result Performing Organization Address [facility] Co de Phone Number [facility] [address] [place] [phone] documented in this encounter Visit Diagnoses Not on filedocumented in this encounter Additional Health Concerns Assessment Noted Time PHQ-9 Depression Total Score: 22 024 11:00 AM EDT documented as of this encounter Care Teams Service Vehicle Operator Relationship Specialty Start Date End Date Carmen Bertrand DO [address] [place] [address] PCP - General Family Medicine 08/18/18 documented as of this encounter
--- OUTSIDE RECORDS SUMMARY | 2024-09-30 01:24 | XMS_ITS | Encounter Summary ---
Author Organization [employer] Address [address] [facility] [address]t [place] [address] Care Team Providers Care J2Ee Consultant Name Role Phone EdilsonCarmen dixon Primary Care Provider + [phone] Encounter Details Date Type Department Care Team (Latest Contact Info) Description 09/27/2024 Travel Social History Tobacco Use Types Packs/Day [...] Office Visit [facility] [address] [place], [place] [phone] Tova Saucedo, OD [address] [place] [address] 10/21/2024 1:30 PM EST Clinical Support [facility] [address] [place], [place] [phone] 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, RULA documented as of this encounter Visit Diagnoses Not on filedocumented in this encounter Additional Health Concerns Assessment Noted Time PHQ-9 Depression Total Score: 22 024 11:00 AM EDT documented as of this encounter Care Teams J2Ee Consultant Relationship Specialty Start Date End Date Carmen Bertrand DO 230 [place], [place] [phone] PCP - General Family Medicine 08/18/18 documented as of this encounter
--- OUTSIDE RECORDS SUMMARY | 2024-09-30 01:24 | XMS_ITS | Encounter Summary ---
Author Organization [employer] Address [address] [facility] 7t [place] [address] Care Team Providers Care Internet Media Planner Name Role Phone Carmen Bertrand DO Primary Care Provider + [phone] Reason for Visit * Reason Comments Med Refill Encounter Details Date Type Department Care Team ([facility] st Contact Info) Description 09/05/2024 Refill [facility] MEDICINE [address] [place] [address] Carmen Bertrand DO 230 [place] [address] Social History Tobacco Use Types Packs/Day Years [...] 2:30 PM EST Office Visit [facility] OPTOMETRY [address] [place] [address] Tova Saucedo, OD [address] [place] [address] 10/21/2024 1:30 PM EST Clinical Support [facility] MEDICINE [address] [place] [address] 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, RULA documented as of this encounter Visit Diagnoses Not on filedocumented in this encounter Additional Health Concerns Assessment Noted Time PHQ-9 Depression Total Score: 22 024 11:00 AM EDT documented as of this encounter Care Teams Internet Media Planner Relationship Specialty Start Date End Date Carmen Bertrand DO [address] [place] [address] PCP - General Family Medicine 08/18/18 documented as of this encounter
--- OUTSIDE RECORDS SUMMARY | 2024-09-30 01:24 | XMS_ITS | Encounter Summary ---
Author Organization [employer] Address [address] [facility] 7t [place] [address] Care Team Providers Care Cash Accountant Name Role Phone Carmen Bertrand DO Primary Care Provider + [phone] Reason for Visit * Reason Comments Med Refill Encounter Details Date Type Department Care Team ([facility] st Contact Info) Description 02/24/2024 Refill [facility] MEDICINE [address] [place] [address] Carmen Bertrand DO [address] [place] [address] Social History Tobacco Use Types Packs/Day Years [...] Description 10/20/2024 2:30 PM EST Office Visit [facility] OPTOMETRY [address] [place] [address] Lweis, Tova, OD [address] [place] [address] 10/21/2024 1:30 PM EST Clinical Support [facility] MEDICINE [address] [place] [address] 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, RULA documented as of this encounter Visit Diagnoses Not on filedocumented in this encounter Additional Health Concerns Assessment Noted Time PHQ-9 Depression Total Score: 21 023 11:26 AM EST documented as of this encounter Care Teams Cash Accountant Relationship Specialty Start Date End Date Carmen Bertrand DO [address] [place] [address] PCP - General Family Medicine 08/18/18 documented as of this encounter
--- OUTSIDE RECORDS SUMMARY | 2024-09-30 01:24 | XMS_ITS | Encounter Summary ---
Author Organization [employer] Address [address] [facility] [address]t [place] [address] Care Team Providers Care Continuous Process Coffee Roaster Name Role Phone RajeevCarmen jones Primary Care Provider + [phone] Reason for Visit * Reason Comments Med Refill Encounter Details Date Type Department Care Team ([facility] st Contact Info) Description 03/08/[address] [facility] MEDICINE [address] [place] [address] Rox Sutton MD [address] [place] [address] Pain Social History Tobacco Use Types Packs/Day [...] Description 10/20/2024 2:30 PM EST Office Visit [facility] OPTOMETRY [address] [place] [address] Lewis, Tova, OD [address] [place] [address] 10/21/2024 1:30 PM EST Clinical Support [facility] MEDICINE [address] [place] [address] 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 RN documented as of this encounter Visit Diagnoses Diagnosis Pain Generalized pain documented in this encounter Additional Health Concerns Assessment Noted Time PHQ-9 Depression Total Score: 21 023 11:26 AM EST documented as of this encounter Care Teams Continuous Process Coffee Roaster Relationship Specialty Start Date End Date Carmen Bertrand DO [address] [place] [address] PCP - General Family Medicine 08/18/18 documented as of this encounter
--- OUTSIDE RECORDS SUMMARY | 2024-09-30 01:24 | XMS_ITS | Encounter Summary ---
Author Organization [employer] Address [address] [facility] 7t [place] [address] Care Team Providers Care Sales Engagement Manager Name Role Phone Carmen Bertrand DO Primary Care Provider [phone] Encounter Details Date Type Department Care Team (Late st Contact Info) Description 08/13/2022 Orders Only [facility] MED [facility]EDS [address] [place], [place] [phone] Carmen Perez LPN Social History Tobacco Use [...] Office Visit [facility]ET[facility] [address] [place] [address] Tova Saucedo, OD [address] [place] [address] 10/21/2024 1:30 PM EST Clinical Support [facility] [address] [place] [address] 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 RN documented as of this encounter Visit Diagnoses Not on filedocumented in this encounter Care Teams Sales Engagement Manager Relationship Specialty Start Date End Date Carmen Bertrand DO [address] [place] [address] PCP - General Family Medicine 08/18/18 documented as of this encounter
--- OUTSIDE RECORDS SUMMARY | 2024-09-30 01:24 | XMS_ITS | Encounter Summary ---
Author Organization [employer] Address [address] [facility] [address] [place] [address] Care Team Providers Care Jacquard Plate Maker Name Role Phone Carmen Bertrand DO Primary Care Provider + [phone] Reason for Visit * Reason Comments Med Refill Encounter Details Date Type Department Care Team ([facility] st Contact Info) Description 07/22/2023 Refill [facility] MED & PEDS [address] [place], [place] [phone] Carmen Bertrand DO [address] [facility] [place] [address] Hyperlipidemia, unspecified hyperlipidemia type Social History Tobacco [...] 10/20/2024 2:30 PM EST Office Visit [facility] OPTOMETRY [address] [place] [address] Tova Saucedo, OD [address] [place] [address] 10/21/2024 1:30 PM EST Clinical Support [facility] MEDICINE [address] [place] [address] 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 RN documented as of this encounter Visit Diagnoses Diagnosis Hyperlipidemia, unspecified hyperlipidemia type documented in this encounter Additional Health Concerns Assessment Noted Time PHQ-9 Depression Total Score: 21 023 11:26 AM EST documented as of this encounter Care Teams Jacquard Plate Maker Relationship Specialty Start Date End Date Carmen Bertrand DO [address] [place] [address] PCP - General Family Medicine 08/18/18 documented as of this encounter
--- OUTSIDE RECORDS SUMMARY | 2024-09-30 01:24 | XMS_ITS | Encounter Summary ---
Author Organization [employer] Address [address] [facility] [address] [place] [address] Care Team Providers Care Weight Reduction Specialist Name Role Phone Carmen Bertrand DO Primary Care Provider + [phone] Reason for Visit * Reason Comments Med Refill Encounter Details Date Type Department Care Team ([facility] st Contact Info) Description 03/16/2024 Refill [facility] CHC MED & PEDS [address] [place], [place] [phone] Carmen Bertrand DO 230 [facility] [place] [address] Chronic low back pain, unspecified back pain [...] Description 10/20/2024 2:30 PM EST Office Visit [facility] OPTOMETRY [address] [place], [place] [phone] Tova Saucedo, OD [address] [place] [address] 10/21/2024 1:30 PM EST Clinical Support [facility] MEDICINE [address] [place], [place] [phone] 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 RN documented as of this encounter Visit Diagnoses Diagnosis Chronic low back pain, unspecified back pain laterality, unspecified whether sciatica present documented in this encounter Additional Health Concerns Assessment Noted Time PHQ-9 Depression Total Score: 21 023 11:26 AM EST documented as of this encounter Care Teams Weight Reduction Specialist Relationship Specialty Start Date End Date Carmen Bertrand DO [address] [place] [address] PCP - General Family Medicine 08/18/18 documented as of this encounter
--- OUTSIDE RECORDS SUMMARY | 2024-09-30 01:24 | XMS_ITS | Encounter Summary ---
Author Organization [employer] Address [address] [facility] [address]t [place] [address] Care Team Providers Care Obstetrics Technician Name Role Phone Carmen Bertrand DO Primary Care Provider [phone] Reason for Visit * Reason Onset Date Comments Prior Authorization 08/30/2024 Encounter Details Date Type Department Care Team ([facility] Contact Info) Description 08/30/2024 Telephone [facility] MEDICINE [address] [place] [address] Carmen Bertrand DO [address] [place] [address] Prior Authorization Social History Tobacco Use Types [...] encounter Miscellaneous Notes * Telephone Encounter - Sangita Ferro - 09/22/2024 2:20 PM EST PA for Zepbound from [facility] Carepinetops placed on PCP desk for signature. * Telephone Encounter - Baljit Mcqueen - 08/30/2024 2:55 PM EST TC from pt needing PA for Tirzepatide-Weight Management (Zepbound) 2.5 MG/0.5ML solution auto-injector documented in this encounter Plan of Treatment Upcoming Encounters Date Type Department Care Team (Late st Contact Info) Description 10/20/2024 2:30 PM EST Office Visit [facility] OPTOMETRY [address] [place] [address] Tova Saucedo, OD [address] [place] [address] 10/21/2024 1:30 PM EST Clinical Support [facility] MEDICINE [address] [place], [place] [phone] 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 RN documented as of this encounter Visit Diagnoses Not on filedocumented in this encounter Additional Health Concerns Assessment Noted Time PHQ-9 Depression Total Score: 22 024 11:00 AM EDT documented as of this encounter Care Teams Obstetrics Technician Relationship Specialty Start Date End Date Carmen Bertrand DO [address] [place] [address] PCP - General Family Medicine 08/18/18 documented as of this encounter
--- OUTSIDE RECORDS SUMMARY | 2024-09-30 01:24 | XMS_ITS | Encounter Summary ---
Author Organization [employer] [facility] Address [address] [place] [address] [address], [place] [address] Care Team Providers Care Station Chief Name Role Phone Carmen Bertrand DO Primary Care Provider + [phone] Reason for Visit * Reason Comments Med Refill Encounter Details Date Type Department Care Team (Late Contact Info) Description 07/29/2022 Refill [facility] [address] [place] [address] Carmen Bertrand DO [address] [place] [address] Social History Tobacco Use Types Packs/Day Years [...] Description 10/20/2024 2:30 PM EST Office Visit [facility] OPTOMETRY [address] [place] [address] Tova Saucedo, OD [address] [place] [address] 10/21/2024 1:30 PM EST Clinical Support [facility] MEDICINE [address] [place] [address] 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 RN documented as of this encounter Visit Diagnoses Not on filedocumented in this encounter Care Teams Station Chief Relationship Specialty Start Date End Date Carmen Bertrand DO [address] [place] [address] PCP - General Family Medicine 08/18/18 documented as of this encounter
--- OUTSIDE RECORDS SUMMARY | 2024-09-30 01:24 | XMS_ITS | Encounter Summary ---
Author Organization [employer] Address [address] [facility] 7t [place] [address] Care Team Providers Care Binder Cutter Name Role Phone EdilsonCarmen dixon Primary Care Provider + [phone] Reason for Visit * Reason Onset Date Comments Results 08/31/2024 Encounter Details Date Type Department Care Team ([facility] st Contact Info) Description 08/31/2024 Refill [facility] MEDICINE [address] [place], [place] [phone] Trista Alford RN [address] [place] [address] Social History Tobacco Use Types Packs/Day Years [...] regular daily dose. TC placed to patient [phone] to inform of above plan. Patient verbalized understanding. Patient to f/u PRN. * Telephone Encounter - Trista Alford RN - 08/31/2024 12:43 PM EST BW results have returned normal/stable except vitamin D continues to be low. TC placed to patient [phone] in regards to above message. Patient confirms [...] 2:30 PM EST Office Visit [facility] OPTOMETRY [address] [place] [address] Tova Saucedo, OD [address] [place] [address] 10/21/2024 1:30 PM EST Clinical Support [facility] MEDICINE [address] [place], [place] [phone] 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 RN documented as of this encounter Visit Diagnoses Not on filedocumented in this encounter Additional Health Concerns Assessment Noted Time PHQ-9 Depression Total Score: 22 024 11:00 AM EDT documented as of this encounter Care Teams Binder Cutter Relationship Specialty Start Date End Date Carmen Bertrand DO [address] [place], [place] [phone] PCP - General Family Medicine 08/18/18 documented as of this encounter
--- OUTSIDE RECORDS SUMMARY | 2024-09-30 01:24 | XMS_ITS | Clinical Summary ---
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 Role Phone ElzaCarmen Primary Care Provider [phone] Allergies Active Allergy Reactions Criticality Noted Date [...] EVERY DAY NEEDED 45 g 1 Active Blood Pressure kit 1 each [...] 2025 Active ergocalciferol (Vitamin D2) 1.25 MG (19019 UT) capsule Take 1 capsule (1.25 mg) [...] FOR SEVERE PAIN 84 tablet 025 Active Brilinta 90 MG tablet TAKE 1 TABLET BY MOUTH TWICE DAILY 60 tablet 1 025 Active econazole nitrate 1 % cream APPLY TOPICALLY TO THE AFFECTED AREA(S) TWICE DAILY DIRECTED FOR 28 DAYS 85 g 1 024 2024 Discontinued Brilinta 90 MG tablet TAKE 1 TABLET TWICE DAILY 60 tablet 1 024 2024 Discontinued traMADol (Ultram) 50 MG tabletIndications :Chronic low [...] Encounters Date Type Department Care Team Description 09/30/2024 Orders Only GENERIC EXTERNAL DATA DEPARTMENT Provider, Generic External Data 09/29/2024 Orders Only GENERIC EXTERNAL DATA DEPARTMENT Provider, Generic External Data 09/27/2024 11:45 AM EST Office Visit [facility] [address] [place] [address] Carmen Bertrand DO 09/27/2024 Travel 09/21/[address] [facility] [place] [address] Trista Alford, RN Results 09/17/2024 Orders Only GENERIC EXTERNAL DATA DEPARTMENT Provider, Generic External Data 09/17/2024 Refill [facility] [address] [place] [address] Carmen Bertrand DO 09/15/[address] [facility] [address] [facility] [place] [address] Carmen Bertrand DO Appointment Request 09/08/[address] [facility] [place] [address] Carmen Bertrand DO Prior Authorization ([facility] request: [employer]ep[employer]) 09/07/[address] [facility] [place] [address] Carmen Bertrand DO Chronic low back pain, unspecified back pain laterality, unspecified whether sciatica present 09/05/[address] [facility] [place] [address] Carmen Bertrand DO 08/31/[address] [facility] [place] [address] Trista Alford RN 08/30/[address] [facility] [place] [address] Carmen Bertrand DO Prior Authorization 08/24/2024 10:45 AM EST Office Visit [facility] [place] [address] Carmen Bertrand DO Essential hypertension (Primary Dx); [...] right ear; Healthcare maintenance; BMI 50.0-59.9, adult ([facility]); Encounter for screening for malignant neoplasm of colon; Screening for colon cancer 08/24/2024 Travel 08/13/2024 10:15 AM EST Office Visit [address] [address] Alexandra Lisa MD Acanthosis nigricans (Primary Dx); Folliculitis 08/13/[address] [facility] [address] [place] [address] Carmen Bertrand DO Hyperlipidemia, unspecified hyperlipidemia type 08/13/[address] [address] Carmen Bertrand DO Chronic low back pain, unspecified back pain laterality, unspecified whether sciatica present; Hyperlipidemia, unspecified hyperlipidemia type 08/13/2024 Travel 08/04/2024 Refill [facility] [address] [place] [address] Ирина Mckeon MD 08/04/[address] [facility] [address] [place] [address] Carmen Bertrand DO On pre-exposure prophylaxis for HIV 07/23/2024 10:15 AM EST Office Visit [address] [address] Carmen Bertrand DO Wound of right breast, initial encounter (Primary Dx); Essential hypertension; Obstructive sleep apnea 07/23/[address] [address] Radha Manley, PharmD BP machine 07/23/[address] [address] Carmen Bertrand DO 07/23/2024 Travel 07/22/2024 Refill [facility] [address] [place] [address] Carmen Bertrand DO Melasma 07/20/2024 11:30 AM EST Clinical Support [address] [address] 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 [address] [place] [address] Carmen Bertrand DO 07/12/2024 Refill [facility] [address] [place] [address] Carmen Bertrand DO Chronic low back pain, unspecified back pain laterality, unspecified whether sciatica present 07/09/2024 Patient Outreach [address] [address] Carmen Bertrand DO Pre-visit Planning (UTOH screening was completed on 04/27/2024) 07/01/2024 Travel from Last 3 Months Immunizations Name Administration [...] Sign Reading Time Taken Comments Blood Pressure 133/77 09/27/2024 12:20 PM EST Pulse 65 09/27/2024 12:20 PM EST Temperature 36.3 ??C (97.3 ??F) 09/27/2024 12:[address] Respiratory Rate 15 09/27/2024 12:20 PM EST Oxygen Saturation 98% 09/27/2024 12:20 PM EST Inhaled Oxygen Concentration - - Weight 168 kg (370 lb) 09/27/2024 12:20 PM EST Height 177.8 cm (5' 10 ) 09/27/2024 12:20 PM EST Body Mass Index 53.09 09/27/2024 12:20 PM EST Plan of Treatment Upcoming Encounters Date Type Department Care Team (Late st Contact Info) Description 10/20/2024 2:30 PM EST Office Visit [facility] [address] [place], [place] [phone] Lewis, Tova, OD [address] [place] [address] 10/21/2024 1:30 PM EST Clinical Support [facility] [address] [place] [address] 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, RN Health Maintenance Due Date Last Done Comments CT Colonography 1975 Colonoscopy 1975 FIT 1975 FOBT 1975 Sigmoidoscopy 1975 Family Planning (PISQ) 1991 Hepatitis A Vaccines (1 of 2 - Risk 2-dose series) 1995 COVID-19 Vaccine ( season) 2024 06/07/2021, 01/29/2021 Depression Monitoring (PHQ-9) 03/27/2025 09/27/2024, 04/27/2024 SDOH Screening 04/27/2025 04/27/2024 Diabetes: Hemoglobin A1C 08/24/2025 025, 04/27/2024, 04/27/2024, Additional history exists Alcohol/Substance Use Screening 09/27/2025 09/27/2024 Depression Screening 09/27/2025 09/27/2024, 09/10/20 24 Tobacco Screening 09/27/2025 09/27/2024 Zoster Vaccines (1 of 2) 2026 Mammogram [...] TROPONIN I Routine 09/30/2024 12:01 AM EST B TYPE NATRIURETIC PEPTIDE (BNP) Routine 09/29/2024 3:25 PM EST HIGH SENSITIVITY TROPONIN I Routine 09/29/2024 3:25 PM EST MAGNESIUM Routine 09/29/2024 3:25 PM EST BASIC METABOLIC PANEL Routine 09/29/2024 3:25 PM EST HEPATIC FUNCTION PANEL Routine 09/29/2024 3:25 PM EST PROTHROMBIN TIME-INR Routine 09/29/2024 3:25 PM EST CBC WITH AUTO DIFFERENTIAL Routine 09/29/2024 3:25 PM EST SARS COV2/INFLUENZA A/B AND RSV RNA QL NAAT Routine 09/29/2024 3:25 PM EST XR HIP 2 OR 3 VIEWS RIGHT Routine 09/17/2024 5:59 PM EST XR SACROILIAC JOINTS 1-2 VIEWS Routine 09/17/2024 5:59 PM EST REBECCA SCREEN, IFA, W/REFL TITER AND PATTERN Routine 09/17/2024 11:45 AM EST RHEUMATOID FACTOR Routine 09/17/2024 11: 45 AM EST LAB COLOGUARD?? COLON CANCER SCREEN Routine 08/31/2024 [...] right ear Healthcare maintenance BMI 50.0-59.9, adult ([facility]) Encounter for screening for malignant neoplasm of [...] right ear Healthcare maintenance BMI 50.0-59.9, adult ([facility]) Encounter for screening for malignant neoplasm of [...] right ear Healthcare maintenance BMI 50.0-59.9, adult ([facility]) Encounter for screening for malignant neoplasm of [...] right ear Healthcare maintenance BMI 50.0-59.9, adult ([facility]) Encounter for screening for malignant neoplasm of [...] Chronic bilateral low back pain without sciatica BI US BREAST LIMITED BILATERAL Routine 06/02/2024 [...] of left foot Healthcare maintenance HIV ANTIBODY/ANTIGEN ([facility]) Routine 02/21/2023 2:35 PM EDT from Last 3 Months or Most Recently Relevant to Health Maintenance Results * High Sensitivity Troponin I (09/30/2024 12:01 AM EST) Only the most recent of2 resultswithin the time period is included. Pathologist [facility] TROPONIN I HIGH SENSITIVITY <2.7 <3.5 - 17.0 ng/L [facility] Comment:The [place] high sens itivity Troponin-I results should beused in conjunction with other diagnostic information suchas ECG, clinical observations and information, and patientsymptoms to aid in the diagnosis of [place]. 09/30/2024 12:0 1 AM EST 09/30/2024 12:04 AM EST us Generic External Data Provider LAB BLOOD ORDERAB LES Final Result [facility] [address] [place] [phone] * SARS-CoV-2 RNA, Influenza A/B, and RSV RNA, Ql NAAT (09/29/2024 3:25 PM EST) Pathologist [facility] Influenza A PCR NEGATIVE Negative [facility] Influenza B PCR NEGATIVE Negative [facility] Resp Syncy Virus RNA Qual PCR NEGATIVE Negative [facility] SARS COV2 PCR NEGATIVE Negative [facility] Comment:All test results mus t be correlated with clinical findings.Negative results do not preclude SARS-CoV2, influenza Avirus, influenza B virus and/or RSV infectionand should not be used as the sole basis for treatment orother patient management decisions. Negative results must becombined with clinical observations, patient history, andepidemiological information.This test has not been evaluated for monitoring treatment ofinfection.This test has been authorized by the FDA under an EmergencyUse Authorization (EUA) for use by authorized laboratories.Testing performed on the [employer] GeneXpert utilizingreal-time RT-PCR.All SARS CoV2 and positive influenza A/B results arereported to [facility]. 09/29/2024 3:25 PM EST 09/29/2024 3:28 PM EST us Generic External Data Provider LAB MICROBIOLOGY - GENERAL ORDERABLES Final Result [facility] [address] [place] [address] [phone] * (ABNORMAL) CBC auto differential (09/29/2024 3:25 PM EST) White Blood Count 11.0(H) 4.8 - 10.8 X10*3/uL [facility] Red Blood Count 4.22 4.20 - 5.50 X10*6/uL [facility] Hemoglobin 13.1 12.0 - 16.0 g/dl [facility] Hematocrit 39.2 37.0 - 47.0 % [facility] Mean Corpuscular Volume 92.9 80.0 - 98.0 fL [facility] Mean Corpuscular Hemoglobin 31.0 27.0 - 33.0 pg [facility] Mean Corpuscular HGB Conc 33.4 31.0 - 35.0 g/dl [facility] Red Cell Distribution Width 14.3 11.0 - 16.0 % [facility] Platelet Count 284 160 - 400 X10*3/uL [facility] Mean Platelet Volume 9.6 9.4 - 12.3 fL [facility] Neutrophils Percent Auto 54.4 45 - 73 % [facility] Imm Gran Pct Auto 0.6(H) 0.0 - 0.4 % [facility] Lymphocytes Percent Auto 32.6 20 - 40 % [facility] Monocytes Percent Auto 9.2 2 - 11 % [facility] Eosinophils Percent Auto 2.7 0 - 4 % [facility] Basophils Percent Auto 0.5 0 - 2 % [facility] NRBC Pct Auto 0.0 0.0 - 0.2 /100WBC [facility] Neutrophils Absolute Auto 6.0 2.0 - 8.3 x10*3/uL [facility] Imm Gran Abs Auto 0.07(H) 0.00 - 0.03 X10*3/uL [facility] Lymphocytes Absolute Auto 3.6 1.2 - 4.9 X10*3/uL [facility] Monocytes Absolute Auto 1.0 0.1 - 1.2 X10*3/uL [facility] Eosinophils Absolute Auto 0.3 0.0 - 0.4 X10*3/uL [facility] Basophils Absolute Auto 0.1 0.0 - 0.2 X10*3/uL [facility] NRBC Abs Auto 0.000 0.0 - 0.012 X10*3/uL [facility] 09/29/2024 3:25 PM EST 09/29/2024 3:28 PM EST us Generic External Data Provider LAB BLOOD ORDERAB LES Final Result Performing Organization Address City/State/[facility] Co de Phone Number [facility] [address] [place] [phone] * Prothrombin Time-INR (09/29/2024 3:25 PM EST) Prothrombin Time 11.4 10.9 - 12.4 SEC [facility] INTERNATIONAL NORM RATIO 1.0 0.9 - 1.1 [facility] Comment:INTERNATIONAL NORMAL IZED RATIO (INR) REFERENCE RANGES Reference RangeFor patients not on anticoagulant therapy: 0.9 - 1.1INR ranges for oral anticoagulanttherapy:For prevention and treatment of venous thrombosis and pulmonary embolism: 2.0 - 3.0For acute myocardial infarction with aspirin therapy: 2.0 - 3.0For acute myocardial infarction without aspirin therapy: 3.0 - 4.0For patients with mechanical prosthetic heart valves: 2.5 - 3.5 09/29/2024 3:25 PM EST 09/29/2024 3:28 PM EST us Generic External Data Provider LAB BLOOD ORDERAB LES Final Result Performing Organization Address [facility] de Phone Number [facility] [address] [place] [phone] * B Type Natriuretic Peptide (BNP) (09/29/2024 3:25 PM EST) Pathologist [facility] B Type Natriuretic Peptide 45 <100 pg/mL [facility] Comment:For those patients w ho are being treated with Natrecor(nesiritide, recombinant BNP), BNP testing should beperformed at least two hours post treatment in order toensure that only endogenous levels of BNP are detected. 09/29/2024 3:25 PM EST 09/29/2024 3:28 PM EST us Generic External Data Provider LAB BLOOD ORDERAB LES Final Result Performing Organization Address [facility] Phone Number [facility] [address] [place] [phone] * Magnesium (09/29/2024 3:25 PM EST) Pathologist [facility] Magnesium 1.9 1.6 - 2.6 mg/dL [facility] 09/29/2024 3:25 PM EST 09/29/2024 3:28 PM EST Generic External Data Provider LAB BLOOD ORDERAB LES Final Result Performing Organization Address [facility] de Phone Number [facility] [address] [place] [phone] * Hepatic Function Panel (09/29/2024 3:25 PM EST) Only the most recent of2 resultswithin the time period is included. Bilirubin, Total 0.5 0.0 - 1.0 mg/dL [facility] Bilirubin, Direct 0.2 0.0 - 0.5 mg/dL [facility] Aspartate Amino Transferase 22 5 - 31 U/L [facility] Alanine Aminotransferase 21 0 - 31 U/L [facility] Total Protein 7.8 6.5 - 8.0 g/dL [facility] Albumin Level 3.6 3.5 - 5.0 g/dL [facility] Alkaline Phosphatase 94 39 - 117 U/L [facility] 09/29/2024 3:25 PM EST 09/29/2024 3:28 PM EST us Generic External Data Provider LAB BLOOD ORDERAB LES Final Result [facility] [address] [place] [phone] * Basic Metabolic Panel (09/29/2024 3:25 PM EST) Only the most recent of2 resultswithin the time period is included. Pathologist [facility] Sodium 140 135 - 145 mmol/L [facility] Potassium 4.6 3.3 - 5.1 mmol/L [facility] Chloride 108 96 - 108 mmol/L [facility] Carbon Dioxide 25 22 - 29 mmol/L [facility] Anion Gap 12 12 - 20 [facility] Urea Nitrogen (BUN) 12 9 - 16 mg/dL [facility] Creatinine, Serum 0.82 0.5 - 1.4 mg/dL [facility] Creatinine Clr Calc Pharmacy 139.5 [facility] Comment:Provided height and weight: 175.26 cm,164.1 kg.eGFR (calculated from the MDRD study equation) and eCrCl(calculated from the Cockcroft-Gault equation) are based ondifferent parameters and may not yield comparable results.If eCrCl result is absurd, please check patient'sheight/weight. Estimated Glomerular Filt Rate >60 [facility] Comment:Chronic Kidney Disea se: Estimated GFR < 60 mL/min/1.09f5Ecwzdy Kidney Disease: Estimated GFR < 15 mL/min/1.73m2 Glucose 97 60 - 115 mg/dL [facility] Calcium 9.6 8.4 - 10.2 mg/dL [facility] 09/29/2024 3:25 PM EST 09/29/2024 3:28 PM EST us Generic External Data Provider LAB BLOOD ORDERAB LES Final Result [facility] [address] [place] [phone] [phone] * XR Hip 2 or 3 Views Right (09/17/2024 5:59 PM EST) Anatomical Region Laterality Modality Lower Extremities, Hip Right Radiograp hic Imaging 09/17/2024 5:59 PM EST Narrative 09/17/2024 6:00 PM EST ? [facility] ? [address] ?[place] [address] ?XRay Report ? Signed ? Patient: Blaire Quiroz ?MR#: M ?? [id number] ? : 1975 ?Acct:[id number] ? Age/Sex: 49 / F ?ADM Date: 09/17/24 ? Loc: HO.HOSX ? Attending Dr: Heather Uriarte MD ? Ordering Physician: Heather Aviles ?? Date of Service: 09/17/24 ?? Procedure(s): XR hip RT min 2V ?? Accession Number(s): [id number] ? cc: Carmen Bertrand DO; Heather Aviles [...] DD/ 1759 ? TD/TT: 09/17/24 1759 ? 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 [facility] ? [address] ?[place] [address] ?XRay Report ? Signed ? Patient: Maria Luisa Jean,Blaire ?MR#: M ?? [id number] ? : 1975 ?Acct:[id number] ? Age/Sex: 49 / F ?ADM Date: 09/17/24 ? Loc: HO.HOSX ? Attending Dr: Heather Uriarte MD ? Ordering Physician: Heather Aviles ?? Date of Service: 09/17/24 ?? Procedure(s): XR sacroiliac joint 1-2V ?? Accession Number(s): [id number] ? cc: Carmen Bertrand DO; Heather Aviles [...] ? DD/ 1759 ? TD/TT: 09/17/241758 ? 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 Procedure Note Geno, Image - 09/17/2024 [facility] [address] [place] [address] [address] [place] [address] XRay Report Signed Patient: Blaire Quiroz#: M [id number] : 1975Acct:[id number] Age/Sex: 49 / FADM Date: 09/17/24 Loc: [facility] Attending Dr: Heather Uriarte MD Ordering Physician: Heather Aviles Date of Service: 09/17/24 Procedure(s): XR sacroiliac joint 1-2V Accession Number(s): [id number] cc: Carmen Bertrand DO; Heather Aviles CLINICAL [...] OV> 09/17/24 1800 DD/ 58 TD/TT: 09/17/241758 Salesperson Furniture: us [facility] External Provider IMG XR PROCEDURES Final Result * (ABNORMAL) Rheumatoid Factor (09/17/2024 11:45 AM EST) Rheumatoid Factor 28.2(H) <15.0 IU/mL [facility] 09/17/2024 11:4 5 AM EST 09/17/2024 11:45 AM EST Generic External Data Provider LAB BLOOD ORDERAB LES Final Result Performing Organization Address City/State/[facility] Co de Phone Number [facility] [address] [place] [phone] * (ABNORMAL) REBECCA Screen,IFA, with Reflex to Titer and Pattern (09/17/2024 11:45 AM EST) Anti Nuclear Antibody Screen POSITIVE (A) NEGATIVE [facility] Comment:REBECCA IFA is a first l ine screen for detecting thepresence of up to approximately 150 autoantibodies invarious autoimmune diseases. A positive REBECCA IFA resultis suggestive of autoimmune disease and reflexes totiter and pattern. Further laboratory testing may beconsidered if clinically indicated.For additional information, please refer tohttp://education.Baihe/faq/LAX609(This link is being provided for informational/educational purposes only.) REBECCA Titer 1:40(A) titer [facility] Comment:A low level REBECCA tite r may be present in pre-clinicalautoimmune diseases and normal individuals. Reference Range <1:40 Negative 1:40-1:80 Low Antibody Level >1:80 Elevated Antibody Level REBECCA Pattern Nuclear, Speckled (A) [facility] Comment:Speckled pattern is associated with mixed connectivetissue disease (MCTD), systemic lupus erythematosus(SLE), Sjogren's syndrome, dermatomyositis, andsystemic sclerosis/polymyositis overlap.AC-2,4,5,29: SpeckledInternational Consensus on REBECCA Patterns(https://doi.org/10.1515/aret-0893-2151)THIS TEST WAS PERFORMED AT:[employer] [place] [phone] HINTON MD REBECCA TITER 2 (REF LAB) [facility] REBECCA Pattern 2 TNP [facility] REBECCA TITER 3 [facility] REBECCA PATTERN 3 [facility] 09/17/2024 11:4 5 AM EST 09/17/2024 11:45 AM EST us Generic External Data Provider LAB BLOOD ORDERAB LES Final Result [facility] [address] [place] [phone] [phone] * (ABNORMAL) Cologuard?? colon cancer screening (08/31/2024 10:33 AM EST) Cologuard Result Positive( A) Negative 09/07/2024 10:16 AM EST [facility] (CLIA #:[id number]) Comment: POSITIVE TEST RESULT. A positive Cologuard [...] (Ashleigh Zhou al, N Engl J Med 2014;370(14):8583-4360.) Cologuard may produce a false negative or false positive result (no colorectal cancer or precancerous polyp present at colonoscopy follow up). A negative Cologuard test result does not guarantee the absence of CRC or advanced adenoma (pre-cancer). The current Cologuard screening interval is every 3 years. ([place] [employer] Society and U.S. Multi-Society Task Force). Cologuard performance data in a 10,000 patient pivotal study using colonoscopy as the reference method can be accessed at the following location: www.[employer]/results. Additional description of the Cologuard test process, warnings and precautions can be found at www.[employer].com. Stool specimen (specimen) 08/31/2024 10:33 AM EST 09/01/2024 11:06 AM EST Carmen Bertrand DO LAB MOLECULAR DIAGNOSTICS OR DERABLES Final Result [facility] (CLIA #:[id number]) [place] [address], * (ABNORMAL) Vitamin D, 25-Hydroxy, Total, Immunoassay (08/24/2024 11:57 AM EST) Vitamin D 25-OH Total 19.8(L) >30 ng/mL [facility] Comment:Health Based Referen ce Values*< 20 ng/mL [id number] ng/mL Insufficient> 30 ng/mL Sufficient*Alen KOTHARI. N [...] EST 08/24/2024 1:03 PM EST us Carmen Betrrand DO LAB BLOOD ORDERABLES Final R esult [facility] [address] [place] [address] [phone] * CBC (08/24/2024 11:57 AM EST) White Blood Count 9.1 4.8 - 10.8 X10*3/uL [facility] Red Blood Count 4.38 4.20 - 5.50 X10*6/uL [facility] Hemoglobin 13.3 12.0 - 16.0 g/dl [facility] Hematocrit 40.8 37.0 - 47.0 % [facility] Mean Corpuscular Volume 93.2 80.0 - 98.0 fL [facility] Mean Corpuscular Hemoglobin 30.4 27.0 - 33.0 pg [facility] Mean Corpuscular HGB Conc 32.6 31.0 - 35.0 g/dl [facility] Red Cell Distribution Width 14.6 11.0 - 16.0 % [facility] Platelet Count 293 160 - 400 X10*3/uL [facility] Mean Platelet Volume 10.2 9.4 - 12.3 fL [facility] NRBC Pct Auto 0.0 0.0 - 0.2 /100WBC [facility] NRBC Abs Auto 0.000 0.0 - 0.012 X10*3/uL [facility] Blood Venous blood specimen / Unknown 08/24/2024 11:57 AM EST 08/24/2024 1:03 PM EST Carmen Elza DO LAB BLOOD ORDERABLES Final R esult Performing Organization Address [facility]/ZIP Co de Phone Number [facility] [address] [place] [phone] * TSH (08/24/2024 11:57 AM EST) Thyroid Stimulating Hormone 1.83 0.32 - 4.0 uIU/mL [facility] Comment:TSH 3rd Generation ( [facility]) Blood Venous blood specimen / Unknown 08/24/2024 11:57 AM EST 08/24/2024 1:03 PM EST Carmen Elza LAB BLOOD ORDERABLES Final R esult Performing Organization Address [facility] Co de Phone Number [facility] [address] [place] [phone] * T4, Free (08/24/2024 11:57 AM EST) Free T4 (Free Thyroxine) 0.89 0.71 - 1.85 ng/dL [facility] Blood Venous blood specimen / Unknown 08/24/2024 11:57 AM EST 08/24/2024 1:03 PM EST Carmen Elza DO LAB BLOOD ORDERABLES Final R esult Performing Organization Address [facility] Co de Phone Number [facility] [address] [place] [phone] * Hemoglobin A1c (08/24/2024 11:57 AM EST) Hemoglobin A1c 6.0 <6.0 % [facility] Comment:Hemoglobin A1C Refer ence Range Adults: 4.8 - 6.0 % Non diabetic: < 6.0 % Goal: < 7.0 %Additional Action Suggested: > 8.0 %Note: Hemoglobin A1c results are invalid for patients with abnormal amounts of HbF. Blood transfusions may impact the HbA1c concentration in the patient sample. Estimated Average Glucose 126 mg/dL [facility] Comment:eAG = Estimated ave rage glucose which is %A1C expressed asaverage glucose, using the formula of the [id number] Glucose study (ADAG), Diabetes Care, Vol.31,#8,Mar. 2007 Blood Venous blood specimen / Unknown 08/24/2024 11:57 AM EST 08/24/2024 1:03 PM EST us Carmen Bertrand DO LAB BLOOD ORDERABLES Final R esult [facility] [address] [place] [address] [phone] * (ABNORMAL) Lipid Panel, Standard (08/24/2024 11:57 AM EST) Triglycerides 82 <150 mg/dL [facility] Comment:Desirable Triglyceri de: less than 150 mg/dLBorderline High Triglyceride 150-199 mg/dLHigh Triglyceride: 200-499 mg/dLVery High Triglyceride: greater than or equal to 5OO mg/dL Cholesterol 136 <200 mg/dL [facility] Comment:Desirable Cholestero l: less than 200 mg/dLBorderline High Cholesterol: 200-239 mg/dLHigh Cholesterol: greater than 239 mg/dL LDL Cholesterol Calculated 81 <100 mg/dL [facility] Comment:Desirable LDL: less than 100 [...] DO LAB BLOOD ORDERABLES Final R esult [facility] [address] [place] [phone] * POCT Glucose (07/23/2024 11:20 AM EST) Glucose Blood, POC 128 60 - 200 mg/dL QC Media Lot # [id number] Lot# Expiration Date ,025 Blood Capillary blood specimen / Unknown 07/23/2024 11:20 AM EST Carmen Bertrand DO POINT OF CARE TEST ENTER/LANEY T ORDERABLES Final Result * POCT ANALISA-14 Urine Drug Screen (07/20/2024 11:53 AM EST) Urine Urine specimen obtained by clean catch procedure / Unknown 07/20/2024 11:53 AM EST Narrative 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 RN - 07/20/2024 11:53 AM EST UTOX cup Lot#[id number] Exp. 04/06/26 Internal Pass Control Negative for all substances Carmen Bertrand DO POINT OF CARE TEST ENTER/LANEY T ORDERABLES Final Result * BI US Breast Limited Bilateral (06/02/2024 2:00 PM EDT) Anatomical Region Laterality Modality Breast Bilateral Ultrasound 06/02/2024 2:00 PM EDT Narrative 06/03/2024 8:44 AM EDT ? [facility] [place] ? [address] ?[place] [address] ? Ultrasound Report ? Signed ? Patient: Blaire Quiroz ?MR#: M ?? [id number] ? : 1975 ?Acct:[id number] ? Age/Sex: 49 / F ?ADM Date: 10/16/24 ? Loc: HO.MAMMO ? Attending Dr: Carmen Bertrand DO ? Ordering Physician: Carmen Bertrand DO ?? Date of Service: 06/02/24 ?? Procedure(s): US breast BI limited mamm only ?? Accession Number(s): [id number] ? cc: Carmen Bertrand DO ? EXAMINATION: [...] DD/ 1400 ? TD/TT: 06/02/24 1454 ? 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 Procedure Note Geno, Image - 06/03/2024 Aleksander [facility] [address] [place] [address] Ultrasound Report Signed Patient: Blaire Quiroz#: M [id number] : 1975Acct:[id number] Age/Sex: 49 / FADM Date: 06/02/24 Loc: HO.MAMMO Attending Dr: Carmen Bertrand DO Ordering Physician: Carmen Bertrand DO Date of Service: 06/02/24 Procedure(s): US breast BI limited mamm only Accession Number(s): [id number] cc: Carmen Bertrand DO EXAMINATION: US DIAGNOSTIC [...] Shamir Olmedo MD 06/03/2024 08:41 AM EDT Dictated By: Shamir Olmedo MD Signed By: <Electronically signed by Shamir Olmedo MD in OV> 06/03/24 0841 DD/ 1400 TD/TT: 06/02/24 1454 Salesperson Furniture: us Carmen Bertrand DO IMG US PROCEDURES Final Resu lt * Hepatitis C Antibody with Reflex to HCV, RNA, Quantitative, Real-Time PCR (04/27/2024 2:02 PM EDT) Hepatitis C Antibody Nonreactive Nonreactive [facility] Comment:Antibodies to HCV no t detected; does not exclude early acuteHCV infection. Blood Venous blood specimen / Unknown 04/27/2024 2:02 PM EDT 04/27/2024 4:01 PM EDT Carmen Bertrand DO LAB BLOOD ORDERABLES Final R esult Performing Organization Address [facility]/ZIP Co de Phone Number [facility] [address] [place] [address] [phone] * HIV Ab/Ag ([facility]) (02/21/2023 2:35 PM EDT) Pathologist [facility] HIV AB/AG Nonreactive Nonreactive [facility] Comment:HIV-1 p24 Ag and/or HIV-1/HIV-2 Ab not detected.A test result that is nonreactive does not exclude thepossibility of exposure to or infection with HIV-1 and/orHIV-2. Nonreactive results in this assay for individualswith prior exposure to HIV-1 and/or HIV-2 may be due toantigen and antibody levels that are below the limit ofdetection of this assay.The [facility] HIV Ag/Ab Combo assay result andsupplemental assay results should be interpreted inconjunction with the patient's clinical presentation,history and other laboratory results. If the results areinconsistent with clinical evidence, additional testing issuggested to confirm the result. 02/21/2023 2:35 PM EDT 02/21/2023 2:37 PM EDT [employer] External Provider LAB BLO OD ORDERABLES Final Result Performing Organization Address [facility]/ZIP Co de Phone Number [facility] [address] [place] [address] [phone] from Last 3 Months or Most Recently Relevant to Health Maintenance Insurance - [employer] Care Teams Commercial Carpet Installer Relationship Specialty Start Date End Date Carmen Bertrand DO [address] [place] [phone] PCP - General Family Medicine 08/18/18
--- OUTSIDE RECORDS SUMMARY | 2024-09-30 01:24 | XMS_ITS | Encounter Summary ---
Author Organization [employer] Address [address] [facility] [address] [place] [address] Care Team Providers Care Players Club Representative Name Role Phone ElzaCarmen Primary Care Provider + [phone] Encounter Details Date Type Department Care Team ([facility] Contact Info) Description 09/29/2024 Orders Only GENERIC EXTERNAL DATA DEPARTMENT [...] Description 10/20/2024 2:30 PM EST Office Visit [facility] [address] [place], [place] [phone] Tova Saucedo, OD [address] [place] [address] 10/21/2024 1:30 PM EST Clinical Support [facility] [address] [place] [address] 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 RN documented as of this encounter Procedures Procedure Name Priority Date/Time Associated Diagnosis Comments HIGH SENSITIVITY TROPONIN I Routine 09/29/2024 3:25 PM EST SARS COV2/INFLUENZA A/B AND RSV RNA QL NAAT Routine 09/29/2024 3:25 PM EST CBC WITH AUTO DIFFERENTIAL Routine 09/29/2024 3:25 PM EST PROTHROMBIN TIME-INR Routine 09/29/2024 3:25 PM EST B TYPE NATRIURETIC PEPTIDE (BNP) Routine 09/29/2024 3:25 PM EST MAGNESIUM Routine 09/29/2024 3:25 PM EST HEPATIC FUNCTION PANEL Routine 09/29/2024 3:25 PM EST BASIC METABOLIC PANEL Routine 09/29/2024 3:25 PM EST documented in this encounter Results * SARS-CoV-2 RNA, Influenza A/B, and RSV RNA, Ql NAAT (09/29/2024 3:25 PM EST) Influenza A PCR NEGATIVE Negative [facility] Influenza B PCR NEGATIVE Negative [facility] Resp Syncy Virus RNA Qual PCR NEGATIVE Negative [facility] SARS COV2 PCR NEGATIVE Negative [facility] Comment:All test results mus t [...] use by authorized laboratories.Testing performed on the [employer] GeneXpert utilizingreal-time RT-PCR.All SARS CoV2 and positive influenza A/B results arereported to [facility]. 09/29/2024 3:25 PM EST 09/29/2024 3:28 PM EST [employer] External Data Provider LAB MICROBIOLOGY - GENERAL ORDERABLES Final Result [facility] [address] [place] [address] [phone] * B Type Natriuretic Peptide (BNP) (09/29/2024 3:25 PM EST) B Type Natriuretic Peptide 45 <100 pg/mL [facility] Comment:For those patients w ho are being treated with Natrecor(nesiritide, recombinant BNP), BNP testing should beperformed at least two hours post treatment in order toensure that only endogenous levels of BNP are detected. 09/29/2024 3:25 PM EST 09/29/2024 3:28 PM EST [employer] External Data Provider LAB BLOOD ORDERAB LES Final Result Performing Organization Address City/State/[facility] de Phone Number [facility] [address] [place] [address] [phone] * High Sensitivity Troponin I (09/29/2024 3:25 PM EST) [facility] TROPONIN I HIGH SENSITIVITY <2.7 <3.5 - 17.0 ng/L [facility] Comment:The [employer] high sens itivity Troponin-I results should beused in conjunction with other diagnostic information suchas ECG, clinical observations and information, and patientsymptoms to aid in the diagnosis of DC. 09/29/2024 3:25 PM EST 09/29/2024 3:28 PM EST Generic External Data Provider LAB BLOOD ORDERAB LES Final Result Performing Organization Address [facility] Phone Number [facility] [address] [place] [address] [phone] * Magnesium (09/29/2024 3:25 PM EST) [facility] Magnesium 1.9 1.6 - 2.6 mg/dL [facility] 09/29/2024 3:25 PM EST 09/29/2024 3:28 PM EST Generic External Data Provider LAB BLOOD ORDERAB LES Final Result Performing Organization Address [facility] de Phone Number [facility] [address] [place] [address] [phone] * Basic Metabolic Panel (09/29/2024 3:25 PM EST) [facility] Sodium 140 135 - 145 mmol/L [facility] Potassium 4.6 3.3 - 5.1 mmol/L [facility] Chloride 108 96 - 108 mmol/L [facility] Carbon Dioxide 25 22 - 29 mmol/L [facility] Anion Gap 12 12 - 20 [facility] Urea Nitrogen (BUN) 12 9 - 16 mg/dL [facility] Creatinine, Serum 0.82 0.5 - 1.4 mg/dL [facility] Creatinine Clr Calc Pharmacy 139.5 [facility] Comment:Provided height and weight: 175.26 cm,164.1 kg.eGFR (calculated from the MDRD study equation) and eCrCl(calculated from the Cockcroft-Gault equation) are based ondifferent parameters and may not yield comparable results.If eCrCl result is absurd, please check patient'sheight/weight. Estimated Glomerular Filt Rate >60 [facility] Comment:Chronic Kidney Disea se: Estimated GFR < 60 mL/min/1.55m3Iytqio Kidney Disease: Estimated GFR < 15 mL/min/1.73m2 Glucose 97 60 - 115 mg/dL [facility] Calcium 9.6 8.4 - 10.2 mg/dL [facility] 09/29/2024 3:25 PM EST 09/29/2024 3:28 PM EST us Generic External Data Provider LAB BLOOD ORDERAB LES Final Result [facility] [address] [place] [address] [phone] * Hepatic Function Panel (09/29/2024 3:25 PM EST) Bilirubin, Total 0.5 0.0 - 1.0 mg/dL [facility] Bilirubin, Direct 0.2 0.0 - 0.5 mg/dL [facility] Aspartate Amino Transferase 22 5 - 31 U/L [facility] Alanine Aminotransferase 21 0 - 31 U/L [facility] Total Protein 7.8 6.5 - 8.0 g/dL [facility] Albumin Level 3.6 3.5 - 5.0 g/dL [facility] Alkaline Phosphatase 94 39 - 117 U/L [facility] 09/29/2024 3:25 PM EST 09/29/2024 3:28 PM EST us Generic External Data Provider LAB BLOOD ORDERAB LES Final Result Performing Organization Address [facility] Co de Phone Number [facility] [address] [place] [address] [phone] * Prothrombin Time-INR (09/29/2024 3:25 PM EST) [facility] Prothrombin Time 11.4 10.9 - 12.4 SEC [facility] INTERNATIONAL NORM RATIO 1.0 0.9 - 1.1 [facility] Comment:INTERNATIONAL NORMAL IZED RATIO (INR) [...] 3:25 PM EST 09/29/2024 3:28 PM EST [employer] External Data Provider LAB BLOOD ORDERAB LES Final Result Performing Organization Address [facility] de Phone Number [facility] [address] [place] [address] [phone] * (ABNORMAL) CBC auto differential (09/29/2024 3:25 PM EST) [facility] White Blood Count 11.0(H) 4.8 - 10.8 X10*3/uL [facility] Red Blood Count 4.22 4.20 - 5.50 X10*6/uL [facility] Hemoglobin 13.1 12.0 - 16.0 g/dl [facility] Hematocrit 39.2 37.0 - 47.0 % [facility] Mean Corpuscular Volume 92.9 80.0 - 98.0 fL [facility] Mean Corpuscular Hemoglobin 31.0 27.0 - 33.0 pg [facility] Mean Corpuscular HGB Conc 33.4 31.0 - 35.0 g/dl [facility] Red Cell Distribution Width 14.3 11.0 - 16.0 % [facility] Platelet Count 284 160 - 400 X10*3/uL [facility] Mean Platelet Volume 9.6 9.4 - 12.3 fL [facility] Neutrophils Percent Auto 54.4 45 - 73 % [facility] Imm Gran Pct Auto 0.6(H) 0.0 - 0.4 % [facility] Lymphocytes Percent Auto 32.6 20 - 40 % [facility] Monocytes Percent Auto 9.2 2 - 11 % [facility] Eosinophils Percent Auto 2.7 0 - 4 % [facility] Basophils Percent Auto 0.5 0 - 2 % [facility] NRBC Pct Auto 0.0 0.0 - 0.2 /100WBC [facility] Neutrophils Absolute Auto 6.0 2.0 - 8.3 x10*3/uL [facility] Imm Gran Abs Auto 0.07(H) 0.00 - 0.03 X10*3/uL [facility] Lymphocytes Absolute Auto 3.6 1.2 - 4.9 X10*3/uL [facility] Monocytes Absolute Auto 1.0 0.1 - 1.2 X10*3/uL [facility] Eosinophils Absolute Auto 0.3 0.0 - 0.4 X10*3/uL [facility] Basophils Absolute Auto 0.1 0.0 - 0.2 X10*3/uL [facility] NRBC Abs Auto 0.000 0.0 - 0.012 X10*3/uL [facility] 09/29/2024 3:25 PM EST 09/29/2024 3:28 PM EST us Generic External Data Provider LAB BLOOD ORDERAB LES Final Result [facility] [address] [place] [phone] documented in this encounter Visit Diagnoses Not on filedocumented in this encounter Additional Health Concerns Assessment Noted Time PHQ-9 Depression Total Score: 22 024 11:00 AM EDT documented as of this encounter Care Teams Players Club Representative Relationship Specialty Start Date End Date Carmen Bertrand DO [address] [place] [address] PCP - General Family Medicine 08/18/18 documented as of this encounter
--- OUTSIDE RECORDS SUMMARY | 2024-09-30 01:24 | XMS_ITS | Encounter Summary ---
Author Organization [employer] Address [address] [facility] [address] [place] [address] Care Team Providers Care Exchange Architect Name Role Phone Carmen Bertrand DO Primary Care Provider + [phone] Encounter Details Date Type Department Care Team ([facility] st Contact Info) Description 09/27/2024 11:45 AM EST Office Visit [facility] [address] [place] [address] Carmen Bertrand DO [address] [place] [address] Social History Tobacco Use Types Packs/Day Years [...] Mass Index 53.09 09/27/2024 12:20 PM EST documented in this encounter Plan of Treatment Upcoming Encounters Date Type Department Care Team (Late st Contact Info) Description 10/20/2024 2:30 PM EST Office Visit [facility] [address] [place] [address] Tova Saucedo, OD [address] [place] [address] 10/21/2024 1:30 PM EST Clinical Support [facility] [address] [place] [phone] 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 RN documented as of this encounter Visit Diagnoses Not on filedocumented in this encounter Additional Health Concerns Assessment Noted Time PHQ-9 Depression Total Score: 22 024 11:00 AM EDT documented as of this encounter Care Teams Exchange Architect Relationship Specialty Start Date End Date Carmen Bertrand DO [address] [place] [address] PCP - General Family Medicine 08/18/18 documented as of this encounter
--- OUTSIDE RECORDS SUMMARY | 2024-09-30 01:24 | XMS_ITS | Encounter Summary ---
Author Organization [employer] Address [address] [facility] [address]t [place] [address] Care Team Providers Care Regulatory Scientist Name Role Phone Carmen Bertrand DO Primary Care Provider + [phone] Reason for Visit * Reason Comments Med Refill Encounter Details Date Type Department Care Team ([facility] Contact Info) Description 10/18/2022 Refill [facility] [address] [place] [address] Carmen Bertrand DO [address] [place] [address] Social History Tobacco Use Types Packs/Day Years [...] Upcoming Encounters Date Type Department Care Team ([facility] Contact Info) Description 10/20/2024 2:30 PM EST Office Visit [facility] [address] [place] [address] Tova Saucedo, OD [address] [place], [place] [phone] 10/21/2024 1:30 PM EST Clinical Support [facility] [address] [place] [address] 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 RN documented as of this encounter Visit Diagnoses Not on filedocumented in this encounter Additional Health Concerns Assessment Noted Time PHQ-9 Depression Total Score: 16 023 12:22 PM EST documented as of this encounter Care Teams Regulatory Scientist Relationship Specialty Start Date End Date Carmen Bertrand DO [address] [place] [address] PCP - General Family Medicine 08/18/18 documented as of this encounter
--- OUTSIDE RECORDS SUMMARY | 2024-09-30 01:24 | XMS_ITS | Encounter Summary ---
Author Organization [employer] Address [address] [facility] [address] [place] [address] Care Team Providers Care In School Suspension Aide Name Role Phone RajeevCarmen jones Primary Care Provider + [phone] Reason for Visit * Reason Onset Date Comments Results 09/21/2024 Encounter Details Date Type Department Care Team ([facility] st Contact Info) Description 09/21/2024 Telephone [facility] [address] [place], [place] [phone] Trista Alford RN [address] [place] [address] Results Social History Tobacco Use Types Packs/Day Years [...] encounter Miscellaneous Notes * Telephone Encounter - Trista Alford RN - 09/21/2024 2:28 PM EST Patient called [facility] and spoke to Baljit in call center in regards to below message. Patient confirmsRN informed of results and patient verbalized understanding however she would like to hear directlyfrom PCP as she is very anxious. RN spoke to Ann in scheduling to obtain an appointment with PCP. Patient has been scheduled for 09/27/24 at 11:45am. * Telephone Encounter - Trista Alford RN - 09/21/2024 1:00 PM EST Patients cologuard returned positive, PCP will refer patient to GI for colonoscopy. TC placed to patient [phone] via [employer] (Diamond #[id number]) to discuss above message. Patient advised of cologuard result being positive. Patient advised she will be referred to GI for further evaluation. Patient became tearful on the phone inquiring if she has cancer. Patient advised co loguard being positive does NOT indicate cancer. Patient advised positive cologuard result indicates traces of blood in stool which can be associated with abnormal cells or polyps. Patient advised the next step after a positive cologuard is a referral to GI to have a colonoscopy performed to obtaina better visual of colon and rectum. Patient advised this result does NOT indicate cancer at this time. Patient verbalized understanding and was re-assured by end of call. Patient advised PCP will place GI referral and patient will receive a TC or a letter in the mail or a call from GI office with appointment date and time. Patient advised if she does not receive a call or letter within 2 weeks to call [facility] for status check. documented in this encounter Plan of Treatment Upcoming Encounters Date Type Department Care Team (Late st Contact Info) Description 10/20/2024 2:30 PM EST Office Visit [facility] OPTOMET[facility] [address] [place], [place] [phone] Tova Saucedo, OD [address] [place], [place] [phone] 10/21/2024 1:30 PM EST Clinical Support [facility] [address] [place] [address] 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 RN documented as of this encounter Visit Diagnoses Not on filedocumented in this encounter Additional Health Concerns Assessment Noted Time PHQ-9 Depression Total Score: 22 024 11:00 AM EDT documented as of this encounter Care Teams In School Suspension Aide Relationship Specialty Start Date End Date Carmen Bertrand DO [address] [place], [place] [phone] PCP - General Family Medicine 08/18/18 documented as of this encounter
--- OUTSIDE RECORDS SUMMARY | 2024-09-30 01:25 | XMS_ITS | Encounter Summary ---
Author Organization [employer] Address [address] 7t [place] [address] Care Team Providers Care Proof Carrier Name Role Phone Carmen Bertrand DO Primary Care Provider + [phone] Reason for Visit * Reason Comments Med Refill Encounter Details Date Type Department Care Team ([facility] st Contact Info) Description 05/12/2024 Refill [facility] [address] [place], [place] [phone] Carmen Bertrand DO 230 [facility] [place] [address] Chronic low back pain, unspecified back pain [...] Description 10/20/2024 2:30 PM EST Office Visit [facility] [address] [place] [address] Lewis, Tova, OD 230 [place] [address] 10/21/2024 1:30 PM EST Clinical Support [facility] 230 [place] [address] 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, RULA documented as of this encounter Visit Diagnoses Diagnosis Chronic low back pain, unspecified back pain laterality, unspecified whether sciatica present documented in this encounter Additional Health Concerns Assessment Noted Time PHQ-9 Depression Total Score: 22 024 11:00 AM EDT documented as of this encounter Care Teams Proof Carrier Relationship Specialty Start Date End Date Carmen Bertrand DO 230 [place], [place] [phone] PCP - General Family Medicine 08/18/18 documented as of this encounter
--- OUTSIDE RECORDS SUMMARY | 2024-09-30 01:25 | XMS_ITS | Encounter Summary ---
Author Organization [employer] Address [address] [facility] 7t [place] [address] Care Team Providers Care Topline Beading Machine Tender Name Role Phone Carmen Bertrand DO Primary Care Provider [phone] Reason for Visit * Reason Onset Date Comments Appointment Request 09/15/2024 Encounter Details Date Type Department Care Team ([facility] Contact Info) Description 09/15/2024 Telephone [facility] [address] [place], [place] [phone] Carmen Bertrand DO 230 [place] [address] Appointment Request Social History Tobacco Use Types [...] PM EST Return TC to patient via BLS#[id number], pt states she's traveling in September and will return 10/18/24. SENIOR CONSTRUCTION ESTIMATOR RV rescheduled for 10/21/24 @1:30pm. * Telephone Encounter - Bijan Roberson - 09/15/2024 12:39 PM EST Tc from pt looking to reschedule appt with 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 for medication management. Pt Contact: (Austrian) documented in this encounter Plan of Treatment Upcoming Encounters Date Type Department Care Team (Late st Contact Info) Description 10/20/2024 2:30 PM EST Office Visit [facility] [address] [place] [address] Lewis, Tova, OD 230 [place] [address] 10/21/2024 1:30 PM EST Clinical Support [facility] [address] [place] [address] 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, RN documented as of this encounter Visit Diagnoses Not on filedocumented in this encounter Additional Health Concerns Assessment Noted Time PHQ-9 Depression Total Score: 22 024 11:00 AM EDT documented as of this encounter Care Teams Topline Beading Machine Tender Relationship Specialty Start Date End Date Carmen Bertrand DO 230 [place] [address] PCP - General Family Medicine 08/18/18 documented as of this encounter
--- OUTSIDE RECORDS SUMMARY | 2024-09-30 01:25 | XMS_ITS | Encounter Summary ---
Author Organization [employer] Address [address] [facility] 7t [place] [address] Care Team Providers Care Machine Helper Name Role Phone Carmen Bertrand DO Primary Care Provider + [phone] Reason for Visit * Reason Comments Med Refill Encounter Details Date Type Department Care Team ([facility] st Contact Info) Description 09/07/2024 Refill [facility] [address] [place] [address] Carmen Bertrand DO 230 [place] [address] Chronic low back pain, unspecified back pain [...] Description 10/20/2024 2:30 PM EST Office Visit [facility] [address] [place] [address] Lewis, Tova, OD 230 [place] [address] 10/21/2024 1:30 PM EST Clinical Support [facility] [address] [place] [address] 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, RULA documented as of this encounter Visit Diagnoses Diagnosis Chronic low back pain, unspecified back pain laterality, unspecified whether sciatica present documented in this encounter Additional Health Concerns Assessment Noted Time PHQ-9 Depression Total Score: 22 024 11:00 AM EDT documented as of this encounter Care Teams Machine Helper Relationship Specialty Start Date End Date Carmen Bertrand DO 230 [place], [place] [phone] PCP - General Family Medicine 08/18/18 documented as of this encounter
--- OUTSIDE RECORDS SUMMARY | 2024-09-30 01:25 | XMS_ITS | Encounter Summary ---
Author Organization [employer] Address [address] [facility] 7t [place] [address] Care Team Providers Care Mental Health Case Manager Name Role Phone Carmen Bertrand DO Primary Care Provider [phone] Reason for Visit * Reason Onset Date Comments Prior Authorization 09/08/2024 YUSRA CARLTON request: John Encounter Details Date Type Department Care Team ([facility] Contact Info) Description 09/08/2024 Telephone [facility] [address] [place] [address] Carmen Bertrand DO 230 [place] [address] Prior Authorization (YUSRA CARLTON request: John) Social History Tobacco Use Types Packs/Day Years [...] * Telephone Encounter - Sangita Ferro - 09/23/2024 3:41 PM EST PA for Zepbound signed and faxed to [employer] . Confirmation received and sent to scan. If patient calls to check status on above, please advise them to contact [employer] . * Telephone Encounter - Sangita Ferro - 09/20/2024 10:08 AM EST PA for Zepbound from [employer] placed on PCP desk for signature. * Telephone Encounter - Esthela Gutierrez - 09/08/2024 2:20 PM EST TC from pt stated still need a PA for medication Zepbound 2.5mg. PCP DR. Bertrand documented in this encounter Plan of Treatment Upcoming Encounters Date Type Department Care Team (Late st Contact Info) Description 10/20/2024 2:30 PM EST Office Visit [facility] OPTOM[facility] [address] [place] [address], [place] [address] Tova Saucedo, OD 230 [place] [address] 10/21/2024 1:30 PM EST Clinical Support [facility] MEDICINE [address] [place] [address] 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, RULA documented as of this encounter Visit Diagnoses Not on filedocumented in this encounter Additional Health Concerns Assessment Noted Time PHQ-9 Depression Total Score: 22 024 11:00 AM EDT documented as of this encounter Care Teams Mental Health Case Manager Relationship Specialty Start Date End Date Carmen Bertrand DO 230 [place], [place] [phone] PCP - General Family Medicine 08/18/18 documented as of this encounter
--- OUTSIDE RECORDS SUMMARY | 2024-09-30 01:25 | XMS_ITS | Encounter Summary ---
Author Organization [employer] Address [address] [facility] 7t [place] [address] Care Team Providers Care Solid Glass Rod Dowel Machine Operator Name Role Phone Carmen Bertrand DO Primary Care Provider [phone] Reason for Visit * Reason Comments Med Refill Encounter Details Date Type Department Care Team ([facility] st Contact Info) Description 11/20/2022 Refill [facility] [address] [place] [address] Carmen Bertrand DO 230 [place] [address] Morbid obesity with body mass index (BMI) [...] 10/20/2024 2:30 PM EST Office Visit [facility] [address] [place], [place] [phone] Tova Saucedo, OD 230 [place] [address] 10/21/2024 1:30 PM EST Clinical Support [facility] [address] [place] [address] 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, RN documented as of this encounter Visit Diagnoses Diagnosis Morbid obesity with body mass index (BMI) of 50.0 to 59.9 in adult (CMS/HCC) documented in this encounter Additional Health Concerns Assessment Noted Time PHQ-9 Depression Total Score: 16 023 12:22 PM EST documented as of this encounter Care Teams Solid Glass Rod Dowel Machine Operator Relationship Specialty Start Date End Date Carmen Bertrand DO 230 [place] [address] PCP - General Family Medicine 08/18/18 documented as of this encounter
--- OUTSIDE RECORDS SUMMARY | 2024-09-30 01:25 | XMS_ITS | Encounter Summary ---
Author Organization [employer] Address [address] [place] [address] 7t [place] [address] Care Team Providers Care Facilities Technician Name Role Phone EdilsonCarmen dixon Primary Care Provider + [phone] Reason for Visit * Reason Comments Med Refill Encounter Details Date Type Department Care Team ([facility] Contact Info) Description 02/03/2023 Refill [facility] [address] [place] [address] Leticia Ramirez MD 230 [place] [address] Nonintractable headache, unspecified chronicity pattern, unspecified headache [...] Upcoming Encounters Date Type Department Care Team ([facility] Contact Info) Description 10/20/2024 2:30 PM EST Office Visit [facility] [address] [place], [place] [phone] Tova Saucedo, OD 230 [place] [address] 10/21/2024 1:30 PM EST Clinical Support [facility] 230 [place], [place] [phone] 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 RN documented as of this encounter Visit Diagnoses Diagnosis Nonintractable headache, unspecified chronicity pattern, unspecified headache type documented in this encounter Additional Health Concerns Assessment Noted Time PHQ-9 Depression Total Score: 16 023 12:22 PM EST documented as of this encounter Care Teams Facilities Technician Relationship Specialty Start Date End Date Carmen Bertrand DO 230 [place] [address] PCP - General Family Medicine 08/18/18 documented as of this encounter
--- OUTSIDE RECORDS SUMMARY | 2024-09-30 01:25 | XMS_ITS | Encounter Summary ---
Author Organization [employer] Address [address] [facility] 7t [place] [address] Care Team Providers Care Watch Crystal Grinder Name Role Phone RajeevCarmen jones Primary Care Provider + [phone] Reason for Visit * Reason Comments Med Refill Encounter Details Date Type Department Care Team ([facility] st Contact Info) Description 01/13/2024 Refill [facility] MEDICINE [address] [place] [address] Rox Sutton MD [address] [place] [address] Pain Social History Tobacco Use Types Packs/Day [...] 2:30 PM EST Office Visit [facility] OPTOMETRY [address] [place] [address] Lewis, Tova, OD [address] [place] [address] 10/21/2024 1:30 PM EST Clinical Support [facility] MEDICINE [address] [place] [address] 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 RN documented as of this encounter Visit Diagnoses Diagnosis Pain Generalized pain documented in this encounter Additional Health Concerns Assessment Noted Time PHQ-9 Depression Total Score: 21 023 11:26 AM EST documented as of this encounter Care Teams Watch Crystal Grinder Relationship Specialty Start Date End Date Carmen Bertrand DO 230 [place] [address] PCP - General Family Medicine 08/18/18 documented as of this encounter
--- OUTSIDE RECORDS SUMMARY | 2024-09-30 01:25 | XMS_ITS | Encounter Summary ---
Author Organization [employer] Address [address] [facility] [address] [facility] [address] 7[address] [place] [address] Care Team Providers Care Hematology Nurse Educator Name Role Phone Carmen Bertrand DO Primary Care Provider + [phone] Reason for Visit * Reason Comments Med Refill Encounter Details Date Type Department Care Team ([facility] st Contact Info) Description 09/17/2024 Refill [facility]S [address] [place], [place] [phone] Carmen Bertrand DO 230 [facility] [place] [address] Social History Tobacco Use Types Packs/Day Years [...] Description 10/20/2024 2:30 PM EST Office Visit [facility] [address] [place] [address] Tova Saucedo, OD 230 [place] [address] 10/21/2024 1:30 PM EST Clinical Support [facility] [address] [place], [place] [phone] 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, RULA documented as of this encounter Visit Diagnoses Not on filedocumented in this encounter Additional Health Concerns Assessment Noted Time PHQ-9 Depression Total Score: 22 024 11:00 AM EDT documented as of this encounter Care Teams Hematology Nurse Educator Relationship Specialty Start Date End Date Carmen Bertrand DO [address] [place] [address] PCP - General Family Medicine 08/18/18 documented as of this encounter
[2024-09-30 01:38] VITALS: BP 139/88; PULSE 77; RESP 19; TEMP 36.9; O2SAT 100
== END 2024-09-30 01:39 | disposition home or self-care (01) ==
PROVIDERS: Physician Assistant; Emergency Provider Emergency Medicine; PCP Family Medicine
DX: R07.89 Other chest pain (principal); I25.10 Atherosclerotic heart disease of native coronary artery without angina pectoris; R06.02 Shortness of breath; F17.210 Nicotine dependence, cigarettes, uncomplicated; R00.1 Bradycardia, unspecified; Z03.818 Encounter for observation for suspected exposure to other biological agents ruled out; Z79.899 Other long term (current) drug therapy
CPT/HCPCS: 0241U; 36415; 80048; 80076; 83735; 83880; 84484; 85025; 85610; 93005; 99283

== ENCOUNTER → 2024-09-29 14:13 | Outpatient (BNV) | payer OTHER, SELFPAY ==
[2022-10-22 13:00] VITALS: BP 128/72; BP 148/88; BMI 63.7
[2023-01-30 14:13] VITALS: BP 140/60
== END ==
PROVIDERS: Emergency Provider Emergency Medicine; PCP Family Medicine; Visit Provider Internal Medicine Cardiovascular Disease
DX: R00.1 Bradycardia, unspecified (principal)
CPT/HCPCS: 93010

== ENCOUNTER 2024-10-26 13:24 | Outpatient (AMB) | payer OTHER, SELFPAY ==
[2022-10-22 13:00] VITALS: BP 128/72; BP 148/88; BMI 63.7
[2023-01-30 14:13] VITALS: BP 140/60
[2024-10-26 13:28] VITALS: BP 120/76; PULSE 61; BMI 54.0
--- NOTE | 2024-10-26 13:28 | A.OFFVIS_ITS ---
Vital Signs 10/26/24 13:28 Height 5 ft 9 in Weight 365 lb 15.477 oz BMI 54.0 BP 120/76 Blood Pressure Location Lt radial Position Sitting Pulse 61 Intake Visit Reasons: 1 yr f/up Intake Note: 1 year follow-up with ekg feeling good Gas Turbine Powerplant Mechanic Helper Required: Yes Gas Turbine Powerplant Mechanic Helper Services: Gas Turbine Powerplant Mechanic Helper Present Gas Turbine Powerplant Mechanic Helper Name: rubi Richards Allergies penicillin G [PENICILLIN G] Allergy (Severe, Verified 09/29/24 15:05) DIFFICULTY BREATHING semaglutide [From Ozempic] Adverse Reaction (Severe, Verified 09/29/24 15:05) Stomach Upset HPI Comments Details: Blaire comes for follow-up after 3 months. History was obtained with help of engineering director over the telephone. Patient denies any cardiac symptoms. She takes all her medications. Unfortunately she continues smoke. No recent lipid panel. He was still taking currently dual antiplatelet therapy. Taking all other medications. No heart failure symptoms. No anginal sounding chest discomfort. No prolonged palpitation irregular heartbeat. [facility] Medical History Morbid obesity Hidradenitis suppurativa CAD (coronary artery disease) Subsequent non-ST elevation myocardial infarction (NSTEMI) within 4 weeks of in itial infarction Non-ST elevation MT (NSTEMI) YAMILETH on CPAP Hyperlipidemia PTSD (post-traumatic stress disorder) Fatty liver Smoker Depression Obesity Leukocytosis Frequent UTI Asthma Mass of throat Chronic pain Kidney stone Migraine HTN (hypertension) Surgical History H/O excision of mass (06/28/24) Hx of cystoscopy Stented coronary artery History of heart artery stent History of lumpectomy of left breast (10/22/21) History of lithotripsy History of endometrial ablation Hx of colonoscopy History of breast lump/mass excision History of tonsillectomy H/O: hysterectomy Family History Father Hypertension Mother Hypertension Osteoporosis Hx of bilateral cataract extraction Paternal Grandmother Diabetes Sister Asthma Maternal Uncle Throat cancer Maternal Aunt Ovarian cancer Breast cancer Social History Household Members: Children Housing: Apartment Are you a primary child care supervisor to a significant other at home: No Do you presently have visiting nurse or other home services: Yes ([employer]-daughter) Alcohol intake: never Comment: pt refusing alarms Patient Tobacco Use Status: Current everyday Tobacco user Tobacco use type: Cigarette Cigarette Packs Per Day: 0.5 Cigarettes Per Day: 10 Years Smoked: 30 Second Hand Smoke Exposure: No Advance Directives Date on File: 10/28/22 service: No Current occupational status: unemployed and retired Physical Exam Vital Signs: Last Vital Signs Pulse 61 10/26/24 13:28 BP 120/76 10/26/24 13:28 BMI result Body Mass Index 54.0 Const Other: morbidly obese General: cooperative, healthy appearing, comfortable and no acute distress Nutritional Appearance: obese morbidly obese Orientation/consciousness: patient oriented x3 Neck Neck: Yes normal visual inspection Resp Effort & Inspection: normal respiratory effort Auscultation: clear to auscultation bilaterally, no rales, no rhonchi and no wheezes Cardio Jugular venous distension: no JVD Rate: regular rate Rhythm: regular rhythm Heart sounds: S1 normal heart sound present, S2 normal heart sound present, no murmurs and no rubs Neuro General: patient oriented x3 Extrem General: Yes normal to inspection and No no pedal edema Psych Appearance: grossly normal Mental Status: mental status grossly normal Speech and movement: Normal speech and movement present Office Procedures EKG Details: EKG shows normal sinus rhythm with nonspecific ST changes [id number], Complete Assessment & Plan Assessment & Plan (1) CAD (coronary artery disease): Comment: Lad stent Code(s): I25.10 - Atherosclerotic heart disease of [place] coronary artery without angina pectoris Category: Medical Plan: CAD with prior drug-eluting stent to LAD for acute coronary syndrome. Since then she had another cardiac catheterization which had shown nonobstructive CAD. Symptoms have been atypical but managed by metoprolol and isosorbide therapy. She may have ischemia/angina with nonobstructive coronary artery disease which is currently stable. Status post 30 months of dual antiplatelet therapy. Brilinta will be discontinued. Continue lifelong aspirin therapy. Strongly encouraged to stop smoking completely. She he is not completely bought into that. Advised lipid panel in near future to target goal LDL around 55 mg/dL. Continue aggressive blood pressure control. Encouraged to participate in aggressive weight loss program and exercise program. (2) HTN (hypertension): Code(s): I10 - Essential (primary) hypertension Category: Medical Qualifiers: Hypertension type: primary hypertension Qualified Code(s): I10 - Essential (primary) hypertension Plan: Hypertension which is currently well optimized advised to monitor blood pressure at home maintain a log. Goal blood pressure less than 130/84. Low-salt diet was discussed. Lifestyle modification with weight loss as well as regular exercise recommended. Advised to monitor blood pressure at home maintain a log. Will follow up in the clinic in 1 year's time, sooner p.r.n.. Thank you for allowing me to partake in her care Orders: Orders Lipid Panel Today I25.10 - Atherosclerotic heart disease of [place] coronary artery without angina pectoris Coding Level of Care Code Est Pt Level 4 (62013) Complex EM visit Add On G2211 Diagnoses CAD (coronary artery disease) I25.10 Primary hypertension I10 Hypertension type: primary hypertension CPT Codes EKG - CPT: [id number], Complete ([id number])
--- OUTSIDE RECORDS SUMMARY | 2024-10-26 16:13 | XMS_ITS | Encounter Summary ---
Author Organization [employer] [facility] Address [address] [place] [address] 7t [place] [address] Care Team Providers Care Boom Worker Name Role Phone Carmen Bertrand DO Primary Care Provider [phone]- [phone] Encounter Details Date Type Department Care Team (Late st Contact Info) Description 09/09/2022 Orders Only [facility] [address] [place] [address] Azul Albrecht LPN Social History Tobacco Use [...] Care Team (Late st Contact Info) Description 01/24/2025 1:00 PM EDT Clinical Support [facility] [address] [place] [address] 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, RN documented as of this encounter Visit Diagnoses Not on filedocumented in this encounter Care Teams Boom Worker Relationship Specialty Start Date End Date Carmen Bertrand DO 230 [place] [address] PCP - General Family Medicine 08/18/18 documented as of this encounter
--- OUTSIDE RECORDS SUMMARY | 2024-10-26 16:13 | XMS_ITS | Encounter Summary ---
Author Organization [employer] Address [address] [place] [address] 7t [place] [address] Care Team Providers Care Video Recorder Mechanic Name Role Phone Carmen Bertrand DO Primary Care Provider [phone]- [phone] Encounter Details Date Type Department Care Team (Late st Contact Info) Description 09/09/2022 Orders Only [facility]EDS [address] [place] [address] Carmen Perez LPN Social History Tobacco Use [...] Description 01/24/2025 1:00 PM EDT Clinical Support [facility] MEDIC[facility] [address] [place] [address] 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, RN documented as of this encounter Visit Diagnoses Not on filedocumented in this encounter Care Teams Video Recorder Mechanic Relationship Specialty Start Date End Date Carmen Bertrand DO 230 [place] [address] PCP - General Family Medicine 08/18/18 documented as of this encounter
--- OUTSIDE RECORDS SUMMARY | 2024-10-26 16:13 | XMS_ITS | Continuity of Care Document ---
Author Organization [employer] [facility] [place] [facility] Address [address] [place] [id number] Care Team Providers Care Account Consultant Name Role Phone [facility] OTHER [facility] OTHER Assessment Encounter Date Assessment Date Assessment LastModified by Organization Details LastModified Time 10/05/2024 10/05/2024 Patient seen for URI symptoms. AVSS, afebrile, well-appearing per report. Mildly decreased lung sounds per report. No increased work of breathing per report. Rapid COVID and flu test negative. Duo nebulizer administered with significant improvement in symptoms (patient has run out of her home albuterol nebulizer solution). Recent ED evaluation for chest tightness after she was discharged. Currently denying chest pain. Will prescribe additional albuterol nebulizers for patient and have her use these as needed instructions provided for supportive care, red flags that should prompt ED evaluation discussed and patient voices understanding. pallfather Not available 10/06/2024 15:39:09 Plan of Treatment Reminders Order Date Submit Date Provider Last Modified By Organization Details Last Modified Time Details Appointments None recorded. Lab rapid flu (A+B) 2024 025 [facility], [address] [place] [address], [id number], 5 15:45:24 rapid SARS CoV 2 Ag, QL IA, respiratory specimen [address], [id number], 5 15:45:08 Referral None recorded. Procedures None recorded. Surgeries None recorded. Imaging None recorded. Medication Orders albuterol sulfate 2.5 mg/3 mL (0.083 %) solution for nebulizatio n 2024 025 [facility] #[id number], [address] [place], [address], 18:27:03 Patient TargetsNo targets recorded. Patient InstructionsNo instructions recorded. Reason for Referral None Reported. Results Created Date Observation Date Name Description Value Unit Range Abnormal Flag Note LastModifiedBy Organization Detail LastModifiedTime Result Notes None recorded. Medical Equipment None Reported. Allergies Allergen ID Allergen Name Allergen Category Reaction Reaction Severity Criticality Documentation Date Start Date Code Code System Note Provider Name and Address Organization Details Recorded Time 20420 aspirin medicatio n Not available Not available Not available 10/05/2024 1191 RxNorm Not Available [facility] - production 5 13:36:43 27984 penicilli n V Not available Not available Not available Not available 10/05/2024 7984 RxNorm Not Available [facility] - production 5 13:36:43 01170 penicilli n G procaine medicatio n Not available Not available Not available 10/05/2024 7983 RxNorm Not Available [facility] - production 5 13:36:43 84189 penicilli n G benzathin e medicatio n Not available Not available Not available 10/05/2024 7982 RxNorm Not Available [facility] - production 5 13:36:43 Medications Name Sig Start Date Stop Date Status Note LastModified by Organization Details LastModified Time atorvastatin 80 mg tablet TAKE 1 TABLET BY MOUTH EVERY DAY active Not Available Not Available No t Available doxycycline hyclate 100 mg capsule TAKE 1 CAPSULE BY MOUTH TWICE DAILY WITH A FULL GLASS OF WATER, Do not lie down for 30 minutes after taking active Not Available Not Available No t Available clindamycin HCl 300 mg capsule TAKE 1 CAPSULE BY MOUTH EVERY 12 HOURS UNTIL FINISHED active Not Available Not Available No t Available albuterol sulfate 2.5 mg/3 mL (0.083 %) solution for nebulization INHALE 1 TO 2 AMPULE USING A NEBULIZER EVERY 4 TO 6 HOURS NEEDED FOR COUGH, WHEEZING, OR SHORTNESS OF BREATH active Not Available Not Available No t Available metoprolol succinate ER 50 mg tablet,exten ded release 24 hr TAKE 1 TABLET BY MOUTH EVERY DAY active Not Available Not Available No t Available sucralfate 1 gram tablet TAKE 1 TABLET BY MOUTH TWICE DAILY NEEDED FOR ABDOMINAL PAIN active Not Available Not Available No t Available famotidine 40 mg tablet TAKE 1 TABLET BY MOUTH AT BEDTIME NEEDED FOR HEARTBURN active Not Available Not Available No t Available isosorbide mononitrate ER 30 mg tablet,exten ded release 24 hr TAKE 1 TABLET BY MOUTH EVERY DAY IN THE MORNING active Not Available Not Available No t Available acetaminophe n 300 mg-codeine 30 mg tablet TAKE 1 TABLET BY MOUTH EVERY 6 HOURS NEEDED FOR PAIN active Not Available Not Available No t Available allopurinol 100 mg tablet TAKE 1 TABLET BY MOUTH EVERY DAY active Not Available Not Available No t Available tramadol 50 mg tablet TAKE 1 TABLET BY MOUTH EVERY 8 HOURS NEEDED FOR SEVERE PAIN FOR UP TO 28 DAYS active Not Available Not Available No t Available oxycodone-ac etaminophen 5 mg-325 mg tablet TAKE 1 TAB ORALLY EVERY 6 TO 8 HOURS NEEDED FOR PAIN PARTIAL FILL UPON PATIENT REQUEST. active Not Available Not Available No t Available isosorbide mononitrate ER 60 mg tablet,exten ded release 24 hr TAKE 1 TABLET BY MOUTH EVERY DAY, DO NOT BREAK, CRUSH, DISSOLVE OR CHEW active Not Available Not Available No t Available tamsulosin 0.4 mg capsule TAKE 1 CAPSULE BY MOUTH AT BEDTIME FOR 14 DAYS active Not Available Not Available No t Available econazole nitrate 1 % topical cream APPLY TOPICALLY TO AFFECTED AREA(S) TWICE DAILY DIRECTED active Not Available Not Available Not Available Betasept Surgical Scrub 4 % topical liquid APPLY TOPICALLY TO THE AFFECTED AREA(S) DAILY FOR 1 WEEK THEN USE NEEDED active Not Available Not Available No t Available lisinopril 30 mg tablet TAKE 1 TABLET BY MOUTH EVERY DAY active Not Available Not Available No t Available omeprazole 20 mg capsule,dung yed release TAKE 2 CAPSULES BY MOUTH EVERY DAY active Not Available Not Available No t Available aspirin 81 mg chewable tablet CHEW 1 TABLET EVERY MORNING active Not Available Not Available No t Available bisacodyl 5 mg tablet,delay ed release TAKE 4 TABLETS BY MOUTH WITH A FULL GLASS OF WATER AT NOON DAY BEFORE PROCEDURE DIRECTED active Not Available Not Available Not Available pyridoxine (vitamin B6) 100 mg tablet TAKE 1 TABLET BY MOUTH EVERY DAY active Not Available Not Available No t Available ergocalcifer ol (vitamin D2) 1,250 mcg (50,000 unit) capsule TAKE 1 CAPSULE BY MOUTH ONCE WEEKLY active Not Available Not Available No t Available polyethylene glycol 3350 17 gram/dose oral powder MIX 238 GRAMS WITH WATER AND TAKE DIRECTED DAY BEFORE PROCEDURE active Not Available Not Available No t Available levofloxacin 500 mg tablet TAKE 1 TABLET BY MOUTH EVERY DAY FOR 7 DAYS active Not Available Not Available No t Available lisinopril 40 mg tablet TAKE 1 TABLET BY MOUTH EVERY DAY active Not Available Not Available No t Available ondansetron 4 mg disintegrati ng tablet DISSOLVE 1 TABLET ON TONGUE EVERY 6 HOURS NEEDED FOR NAUSEA AND VOMITING active Not Available Not Available No t Available fluticasone propionate 50 mcg/actuatio n nasal spray,suspen ousmane INSTILL 2 SPRAYS IN EACH NOSTRIL ONCE DAILY active Not Available Not Available N ot Available metformin ER 500 mg tablet,exten ded release 24 hr TAKE 1 TABLET BY MOUTH EVERY DAY WITH DINNER active Not Available Not Available No t Available metronidazol e 0.75 % topical gel APPLY TOPICALLY TO THE AFFECTED AREA(S) ON THE FACE EVERY DAY NEEDED active Not Available Not Available No t Available doxycycline hyclate 100 mg tablet TAKE 1 TABLET BY MOUTH TWICE DAILY active Not Available Not Available No t Available fluticasone propionate 110 mcg/actuatio n HFA aerosol inhaler INHALE 2 PUFFS BY MOUTH TWICE DAILY IN THE MORNING AND AT BEDTIME, RINSE MOUTH AFTER USING., DO NOT SWALLOW active Not Available Not Available Not Available Ventolin HFA 90 mcg/actuatio n aerosol inhaler INHALE 2 PUFFS BY MOUTH EVERY 4 TO 6 HOURS NEEDED active Not Available Not Available No t Available oxycodone 5 mg tablet TAKE 1 TABLET BY MOUTH EVERY 6 HOURS NEEDED FOR PAIN (PAIN SCALE 7-10) active Not Available Not Available Not Available ezetimibe 10 mg tablet TAKE 1 TABLET BY MOUTH DAILY active Not Available Not Available Not Available topiramate 50 mg tablet TAKE 1 TABLET BY MOUTH TWICE DAILY active Not Available Not Available No t Available emtricitabin e 200 mg-tenofovir disoproxil fumarate 300 mg tablet TAKE 1 TABLET BY MOUTH EVERY DAY active Not Available Not Available No t Available hydrochlorot hiazide 12.5 mg tablet TAKE 1 TABLET BY MOUTH EVERY DAY active Not Available Not Available No t Available bismuth subcit K 140 mg-metronida zole 125 mg-tetracycl ine 125 mg cap TAKE 3 CAPSULES BY MOUTH FOUR TIMES DAILY BEFORE BREAKFAST, BEFORE LUNCH, BEFORE SUPPER, AND AT BEDTIME WITH A FULL GLASS OF WATER FOR FOURTEEN DAYS active Not Available Not Available No t Available blood pressure test kit-large cuff USE DIRECTED ONCE WEEKLY TO CHECK BLOOD PRESSURE active Not Available Not Available No t Available Vitamin D3 50 mcg (2,000 unit) capsule TAKE 1 CAPSULE BY MOUTH EVERY DAY active Not Available Not Available No t Available Brilinta 90 mg tablet TAKE 1 TABLET BY MOUTH TWICE DAILY active Not Available Not Available No t Available Brilinta 60 mg tablet TAKE 1 TABLET BY MOUTH TWICE A DAY active Not Available Not Available No t Available naloxone 4 mg/actuation nasal spray FOR SUSPECTED OPIOID OVERDOSE. SPRAY 0.1mL IN ONE NOSTRIL. REPEAT IN ALTERNATE NOSTRIL 2-3 MINUTES IF NEEDED. SEEK MEDICAL ATTENTION IMMEDIATELY EVEN IF PATIENT RESPONDS. active Not Available Not Available No t Available Zepbound 2.5 mg/0.5 mL subcutaneous pen injector INJECT ONE PEN (=2.5MG) SUBCUTANEOU SLY ONCE A WEEK DIRECTED active Not Available Not Available No t Available Vitals Date Recorded Heart rate Oxygen saturation Oxygen saturation in Arterial blood by Pulse oximetry Body height Respiratory rate Body temperature Body weight Systolic blood pressure Diastolic blood pressure Provider Name and Address Organization Details Last Updated DateTime 5 71 /min 92 % 92 % 172.72 cm 18 /min 98.4 [degF] 746793. 272 g 131 mm[Hg] 78 mm[Hg] Not Available [facility] - production 5 14:56:14 Social History None recorded. Functional Status None recorded. Mental Status None recorded. Family History Nothing Reported. Medical History No medical history recorded. Gynecological HistoryNo gynecological history recorded. Obstetrics History GPAL:G 0 P 0 0 0 0 Past Encounters Encounter ID Performer Location Encounter Start Date Encounter Closed Date Diagnosis/Indication Diagnosis SNOMED-CT Code Diagnosis ICD10 Code Diagnosis Note [id number] Reese Jarvis MD Main - [facility] [address] [place] [address] 10/05/2024 14:55:01 10/07/2024 08:39:41 Wheezing 23017344 R06.2 Health Concerns Section Related Observation LastModified by Organization Detai ls LastModified Time None Recorded Concern Status LastModified by Organization Details LastModified Time None Recorded Payers Encounter Date Sequence Insurance Name Policy Number Policy Parra Covered Member ID Parra Member ID Guarantor Name 10/05/2024 1 [facility] - DOS ON OR AFTER 2022 - DUAL ELIGIBLE - [facility] OPTIONS AND ONE CARE (MEDICARE REPLACEMENT/ADV ANTAGE - HMO) Blaire Maria Luisa Jean [id number] Blaire Jean Notes Date Note Type Note Provider Name and Address Organization Details Recorded Time 10/05/2024 text/html HPI: Call returned to Blaire Jean to triage below. Reports having Headache, Fever, Body Aches, Sore Throat, Runny Nose x 3 days. Per pt seen at [facility] on Friday. Per pt seen for CP. Had testing done while in ER. Pt had negative homekit for COVID-19 last night. Reports having SOB with exertion. No wheezing. Pt speaking in clear full sentences. Pt advised of disposition, unable to come into [facility]. Agrees to [facility] for evaluation. Confirmed demographics and allergies. .................. .................. .................. .................. .................. .................. .................. ............... CRC Nurse Triage Notes (Radha Martinez - RN): Chief Complaints: Cough, Fever/chills, Headache, Sore throat, Breathing problems PMH: Hypertension, Asthma, Coronary Artery Disease PMH Reviewed at 10/05/2024 - 13:36 Allergies Reviewed at 10/05/2024 - 13:36 Comments: CRC RN did not require any additional information to process this visit. Proofing Machine Operator Organization Information for Ankita Castillo Business Legal Name: [employer] Address: [address] [place] [address], Research Nurse Practitioner: Marino Dow MD CLIA No.: [id number] Proofing Machine Operator POC Test Results from Ankita Castillo - ALS Rapid COVID antigen (14:56:21) COVID: - Rapid influenza antigen (14:56:24) Flu: - Rapid strep test (14:56:25) Strep: - .................. .................. .................. .................. .................. .................. .................. ............... Proofing Machine Operator Note From Castillo Ankita: Sent to a call for a pt complaining of URI symptoms. SC8 arrives on scene, pt is alert and oriented, airway is patent. Pt complains of URI symptoms since Friday. Pt states she had chest tightness Friday-Friday, but was evaluated at [facility] ED on Friday. Pt states she had an EKG and chest x-ray on Friday and both were negative. Pt states she ran out of her albuterol neb solution which has been worsening her asthma. Pt complains of headache, bilateral sinus pain, runny nose, productive cough with white phlegm, sob, and body pain. Pt denies current cp, n/v/d, abd pain, fever, or loc. BP:131/78, P:71, RR:18, SpO2:92% RA, T:98.4; Head: unremarkable; Lung sounds: decreased bilaterally; Abdomen: soft, non-tender, no distention; Back: unremarkable; Extremities: unremarkable; Skin: pink, warm, dry; Rapid covid/flu test: neg; Rapid strep test: neg; Duo neb administered; Lung sounds: clear bilaterally; SpO2:98% RA; [facility] consulted and sends script to pt's pharmacy for Albuterol neb solutions. Red flags discussed. Pt has no further questions. .................. .................. .................. .................. .................. .................. .................. ............... [facility] Consulted: Reese Jarvis .................. .................. .................. .................. .................. .................. .................. ............... Disposition: Fulfilled Reese Jarvis MD [address] [facility],[address] [facility], [place], [phone], BHAVIN - BERNADINE CADENA 10/06/2024 15:39:31 OBGyn Episode No OBEpisode recorded.
--- OUTSIDE RECORDS SUMMARY | 2024-10-26 16:14 | XMS_ITS | Encounter Summary ---
Author Organization [employer] Address [address] [facility] 7t [place] [address] Care Team Providers Care Wire Products Inspector Name Role Phone Carmen Bertrand DO Primary Care Provider + [phone] Reason for Visit * Reason Comments Med Refill Encounter Details Date Type Department Care Team ([facility] Contact Info) Description 10/18/2022 Refill [facility] MEDICINE [address] [place] [address] Carmen Bertrand DO [address] [place] [address] Social History Tobacco Use Types Packs/Day Years [...] Upcoming Encounters Date Type Department Care Team ([facility] Contact Info) Description 01/24/2025 1:00 PM EDT Clinical Support [facility] MEDICINE [address] [place] [address] 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 RN documented as of this encounter Visit Diagnoses Not on filedocumented in this encounter Additional Health Concerns Assessment Noted Time PHQ-9 Depression Total Score: 16 023 12:22 PM EST documented as of this encounter Care Teams Wire Products Inspector Relationship Specialty Start Date End Date Carmen Bertrand DO [address] [place] [address] PCP - General Family Medicine 08/18/18 documented as of this encounter
--- OUTSIDE RECORDS SUMMARY | 2024-10-26 16:14 | XMS_ITS | Encounter Summary ---
Author Organization [employer] Address [address] [place] [address] [address] [place] [address] Care Team Providers Care Security Researcher Name Role Phone Carmen Bertrand DO Primary Care Provider [phone] Encounter Details Date Type Department Care Team (Late st Contact Info) Description 08/13/2022 Orders Only [facility] CH[facility] MED & PEDS [address] [place] [address] Carmen Perez LPN Social History Tobacco Use [...] Description 01/24/2025 1:00 PM EDT Clinical Support [facility] MEDICINE [address] [place] [address] 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, RN documented as of this encounter Visit Diagnoses Not on filedocumented in this encounter Care Teams Security Researcher Relationship Specialty Start Date End Date Carmen Bertrand DO [address] [place] [address] PCP - General Family Medicine 08/18/18 documented as of this encounter
--- OUTSIDE RECORDS SUMMARY | 2024-10-26 16:14 | XMS_ITS | Encounter Summary ---
Author Organization [employer] Address [address] [facility] 7t [place] [address] Care Team Providers Care Transit Mixer Operator Name Role Phone RajeevCarmen jones Primary Care Provider + [phone] Reason for Visit * Reason Comments Med Refill Encounter Details Date Type Department Care Team ([facility] st Contact Info) Description 03/08/2024 Refill [facility] MEDICINE [address] [place] [address] Rox Sutton MD [address] [place] [address] Pain Social History Tobacco Use Types Packs/Day [...] is your housing situation today? I have parvin amin 11/18/[address] you [...] Description 01/24/2025 1:00 PM EDT Clinical Support [facility] MEDICINE [address] [place] [address] 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 RN documented as of this encounter Visit Diagnoses Diagnosis Pain Generalized pain documented in this encounter Additional Health Concerns Assessment Noted Time PHQ-9 Depression Total Score: 21 023 11:26 AM EST documented as of this encounter Care Teams Transit Mixer Operator Relationship Specialty Start Date End Date Carmen Bertrand DO [address] [place] [address] PCP - General Family Medicine 08/18/18 documented as of this encounter
--- OUTSIDE RECORDS SUMMARY | 2024-10-26 16:14 | XMS_ITS | Encounter Summary ---
Author Organization [employer] Address [address] [facility] [address] [place] [address] Care Team Providers Care Color Artist Name Role Phone EdilsonCarmen dixon Primary Care Provider + [phone] Encounter Details Date Type Department Care Team (Latest Contact Info) Description 10/21/2024 Travel Social History Tobacco Use Types Packs/Day [...] Description 01/24/2025 1:00 PM EDT Clinical Support [facility] MEDICINE [address] [place] [address] 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 RN documented as of this encounter Visit Diagnoses Not on filedocumented in this encounter Additional Health Concerns Assessment Noted Time PHQ-9 Depression Total Score: 22 024 11:00 AM EDT documented as of this encounter Care Teams Color Artist Relationship Specialty Start Date End Date Carmen Bertrand DO [address] [place] [address] PCP - General Family Medicine 08/18/18 documented as of this encounter
--- OUTSIDE RECORDS SUMMARY | 2024-10-26 16:14 | XMS_ITS | Encounter Summary ---
Author Organization [employer] Address [address] [facility] [address] [place] [address] Care Team Providers Care Business Functional Analyst Name Role Phone Carmen Bertrand DO Primary Care Provider + [phone] Encounter Details Date Type Department Care Team ([facility] st Contact Info) Description 10/05/2024 Refill [facility] CHC MED & PEDS [address] [place], [place] [phone] Carmen Bertrand DO [address] [place], [place] [phone] Chronic low back pain, unspecified back pain [...] encounter Miscellaneous Notes * Addendum Note - Jan Conway RN - 10/11/2024 8:08 AM ESTAddended by: JAN CONWAY on: 10/11/2024 08:08 AM Modules accepted: Orders * Telephone Encounter - Jan Conway RN - 10/05/2024 2:20 PM EST Per Rishabh, Tramadol last picked up 09/15/24, refill due 10/13/24. Will forward to PCP on 10/11/24. * Telephone Encounter - Carmen Perez LPN - 10/05/2024 1:57 PM EST Received fax from [facility] Pharmacy requesting refill on Tramadol 50 mg. documented in this encounter Plan of Treatment Upcoming Encounters Date Type Department Care Team (Late st Contact Info) Description 01/24/2025 1:00 PM EDT Clinical Support [address] [address] Jan Conway RN documented as of this encounter Visit Diagnoses Diagnosis Chronic low back pain, unspecified back pain laterality, unspecified whether sciatica present documented in this encounter Additional Health Concerns Assessment Noted Time PHQ-9 Depression Total Score: 22 024 11:00 AM EDT documented as of this encounter Care Teams Business Functional Analyst Relationship Specialty Start Date End Date Carmen Bertrand DO [address] [place] [address] PCP - General Family Medicine 08/18/18 documented as of this encounter
--- OUTSIDE RECORDS SUMMARY | 2024-10-26 16:14 | XMS_ITS | Encounter Summary ---
Author Organization [employer] Address [address] [facility] [address]t [place] [address] Care Team Providers Care Mining Helper Name Role Phone ElzaCarmen Primary Care Provider + [phone] Encounter Details Date Type Department Care Team ([facility] Contact Info) Description 09/30/2024 Orders Only [...] Description 01/24/2025 1:00 PM EDT Clinical Support [facility] MEDICINE [address] [place] [address] 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 RN documented as of this encounter Procedures Procedure Name Priority Date/Time Associated Diagnosis Comments HIGH SENSITIVITY TROPONIN I Routine 09/30/2024 12:01 AM EST documented in this encounter Results * High Sensitivity Troponin I (09/30/2024 12:01 AM EST) TROPONIN I HIGH SENSITIVITY <2.7 <3.5 - 17.0 ng/L [facility] Comment:The [facility] high sens itivity Troponin-I results should beused in conjunction with other diagnostic information suchas ECG, clinical observations and information, and patientsymptoms to aid in the diagnosis of [place]. 09/30/2024 12:0 1 AM EST 09/30/2024 12:04 AM EST us Generic External Data Provider LAB BLOOD ORDERAB LES Final Result [facility] [address] [place] [address] [phone] documented in this encounter Visit Diagnoses Not on filedocumented in this encounter Additional Health Concerns Assessment Noted Time PHQ-9 Depression Total Score: 22 024 11:00 AM EDT documented as of this encounter Care Teams Mining Helper Relationship Specialty Start Date End Date Carmen Bertrand DO [address] [place] [address] PCP - General Family Medicine 08/18/18 documented as of this encounter
--- OUTSIDE RECORDS SUMMARY | 2024-10-26 16:14 | XMS_ITS | Encounter Summary ---
Author Organization [employer] Address [address] [facility] [address] [place] [address] Care Team Providers Care Sucker Machine Operator Name Role Phone Carmen Bertrand DO Primary Care Provider + [phone] Reason for Visit * Reason Comments Med Refill Encounter Details Date Type Department Care Team ([facility] st Contact Info) Description 05/12/2024 Refill [facility] CH[facility] MED & PEDS [address] [place], [place] [phone] Carmen Bertrand DO [address] [facility] [place] [address] Chronic low back pain, unspecified back pain [...] Description 01/24/2025 1:00 PM EDT Clinical Support [facility] MEDICINE [address] [place] [phone] 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, RULA documented as of this encounter Visit Diagnoses Diagnosis Chronic low back pain, unspecified back pain laterality, unspecified whether sciatica present documented in this encounter Additional Health Concerns Assessment Noted Time PHQ-9 Depression Total Score: 22 024 11:00 AM EDT documented as of this encounter Care Teams Sucker Machine Operator Relationship Specialty Start Date End Date Carmen Bertrand DO [address] [place] [address] PCP - General Family Medicine 08/18/18 documented as of this encounter
--- OUTSIDE RECORDS SUMMARY | 2024-10-26 16:14 | XMS_ITS | Encounter Summary ---
Author Organization [employer] Address [address] [place] [address] 7t [place] [address] Care Team Providers Care Manual Winder Name Role Phone EdilsonCarmen dixon Primary Care Provider + [phone] Reason for Visit * Reason Comments Med Refill Encounter Details Date Type Department Care Team ([facility] Contact Info) Description 02/03/2023 Refill [facility] [address] [place] [address] Leticia Ramirez MD [address] [place] [address] Nonintractable headache, unspecified chronicity pattern, unspecified headache [...] Department Care Team (Late Contact Info) Description 01/24/2025 1:00 PM EDT Clinical Support [facility] [address] [place] [address] 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 RN documented as of this encounter Visit Diagnoses Diagnosis Nonintractable headache, unspecified chronicity pattern, unspecified headache type documented in this encounter Additional Health Concerns Assessment Noted Time PHQ-9 Depression Total Score: 16 023 12:22 PM EST documented as of this encounter Care Teams Manual Winder Relationship Specialty Start Date End Date Carmen Bertrand DO [address] [place] [address] PCP - General Family Medicine 08/18/18 documented as of this encounter
--- OUTSIDE RECORDS SUMMARY | 2024-10-26 16:14 | XMS_ITS | Encounter Summary ---
Author Organization [employer] Address [address] [facility] 7t [place] [address] Care Team Providers Care Flavor Maker Name Role Phone RajeevCarmen jones Primary Care Provider + [phone] Reason for Visit * Reason Comments Med Refill Encounter Details Date Type Department Care Team ([facility] st Contact Info) Description 01/13/2024 Refill [facility] [address] [place] [address] Rox Sutton MD [address] [place] [address] Pain Social History Tobacco Use Types Packs/Day [...] Description 01/24/2025 1:00 PM EDT Clinical Support [facility] [address] [place] [address] 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 RN documented as of this encounter Visit Diagnoses Diagnosis Pain Generalized pain documented in this encounter Additional Health Concerns Assessment Noted Time PHQ-9 Depression Total Score: 21 023 11:26 AM EST documented as of this encounter Care Teams Flavor Maker Relationship Specialty Start Date End Date Carmen Bertrand DO [address] [place] [address] PCP - General Family Medicine 08/18/18 documented as of this encounter
--- OUTSIDE RECORDS SUMMARY | 2024-10-26 16:14 | XMS_ITS | Encounter Summary ---
Author Organization [employer] Address [address] [facility] [address] 7[address] [place] [address] Care Team Providers Care Gas Engineer Name Role Phone Carmen Bertrand DO Primary Care Provider + [phone] Reason for Visit * Reason Comments Med Refill Encounter Details Date Type Department Care Team ([facility] st Contact Info) Description 03/16/2024 Refill [facility] & PEDS [address] [place], [place] [phone] Carmen Bertrand DO [address] [facility] [place] [address] Chronic low back pain, unspecified back pain [...] Description 01/24/2025 1:00 PM EDT Clinical Support [facility] 230 [place] [address] 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 RN documented as of this encounter Visit Diagnoses Diagnosis Chronic low back pain, unspecified back pain laterality, unspecified whether sciatica present documented in this encounter Additional Health Concerns Assessment Noted Time PHQ-9 Depression Total Score: 21 023 11:26 AM EST documented as of this encounter Care Teams Gas Engineer Relationship Specialty Start Date End Date Carmen Bertrand DO 230 [place] [address] PCP - General Family Medicine 08/18/18 documented as of this encounter
--- OUTSIDE RECORDS SUMMARY | 2024-10-26 16:14 | XMS_ITS | Encounter Summary ---
Author Organization [employer] Address [address] [facility] 7t [place] [address] Care Team Providers Care Building Construction Foreman Name Role Phone Carmen Bertrand DO Primary Care Provider + [phone] Reason for Visit * Reason Comments Med Refill Encounter Details Date Type Department Care Team ([facility] st Contact Info) Description 02/24/2024 Refill [facility] [address] [place] [address] Carmen Bertrand DO 230 [place] [address] Social History Tobacco Use Types Packs/Day Years [...] Description 01/24/2025 1:00 PM EDT Clinical Support [facility] [address] [place] [address] 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 RN documented as of this encounter Visit Diagnoses Not on filedocumented in this encounter Additional Health Concerns Assessment Noted Time PHQ-9 Depression Total Score: 21 023 11:26 AM EST documented as of this encounter Care Teams Building Construction Foreman Relationship Specialty Start Date End Date Carmen Bertrand DO [address] [place] [address] PCP - General Family Medicine 08/18/18 documented as of this encounter
--- OUTSIDE RECORDS SUMMARY | 2024-10-26 16:14 | XMS_ITS | Encounter Summary ---
Author Organization [employer] Address [address] [facility] 7t [place] [address] Care Team Providers Care Civil Celebrant Name Role Phone Carmen Bertrand DO Primary Care Provider [phone] Reason for Visit * Reason Onset Date Comments Med Refill 10/05/2024 Encounter Details Date Type Department Care Team ([facility] st Contact Info) Description 10/05/2024 Refill [facility] 230 [place] [address] Carmne Bertrand DO 230 [place] [address] Mild persistent asthma without complication; Melasma Social History Tobacco Use Types Packs/Day Years [...] encounter Miscellaneous Notes * Telephone Encounter - Bijan Roberson - 10/05/2024 12:55 PM EST TC from pt requesting medication refill. Medications needing refill : albuterol (2.5 MG/3ML) 0.083% nebulizer solution To be sent to: [facility] - [place], [place] - [address] [place] [address] documented in this encounter Plan of Treatment Upcoming Encounters Date Type Department Care Team (Late st Contact Info) Description 01/24/2025 1:00 PM EDT Clinical Support [facility] [address] [place] [address] 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, RULA documented as of this encounter Visit Diagnoses Diagnosis Mild persistent asthma without complication Melasma Other dyschromia documented in this encounter Additional Health Concerns Assessment Noted Time PHQ-9 Depression Total Score: 22 024 11:00 AM EDT documented as of this encounter Care Teams Civil Celebrant Relationship Specialty Start Date End Date Carmen Bertrand DO [address] [place] [address] PCP - General Family Medicine 08/18/18 documented as of this encounter
--- OUTSIDE RECORDS SUMMARY | 2024-10-26 16:14 | XMS_ITS | Encounter Summary ---
Author Organization [employer] Address [address] [facility] 7t [place] [address] Care Team Providers Care Fishing Vessel Deckhand Name Role Phone Carmen Bertrand DO Primary Care Provider [phone] Reason for Visit * Reason Onset Date Comments Prior Authorization 10/06/2024 Encounter Details Date Type Department Care Team ([facility] Contact Info) Description 10/06/2024 Telephone [facility] [address] [place] [address] Carmen Bertrand DO [address] [place] [address] Prior Authorization Social History Tobacco Use Types [...] * Telephone Encounter - Sangita Ferro - 10/08/2024 3:41 PM EST PA was FAX to [facility] 09/30/24 pending decision. PA was also done via [employer] * Telephone Encounter - Baljit Mcqueen - 10/06/2024 11:36 AM EST PA needed for Zepbound per [facility] pharmacy documented in this encounter Plan of Treatment Upcoming Encounters Date Type Department Care Team (Late st Contact Info) Description 01/24/2025 1:00 PM EDT Clinical Support [facility] [address] [place] [address] 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 RN documented as of this encounter Visit Diagnoses Not on filedocumented in this encounter Additional Health Concerns Assessment Noted Time PHQ-9 Depression Total Score: 22 024 11:00 AM EDT documented as of this encounter Care Teams Fishing Vessel Deckhand Relationship Specialty Start Date End Date Carmen Bertrand DO [address] [place] [address] PCP - General Family Medicine 08/18/18 documented as of this encounter
--- OUTSIDE RECORDS SUMMARY | 2024-10-26 16:14 | XMS_ITS | Encounter Summary ---
Author Organization [employer] Address [address] [facility] 7t [place] [address] Care Team Providers Care Water Treatment Technician Name Role Phone EdilsonCarmen dixon Primary Care Provider + [phone] Encounter Details Date Type Department Care Team [...] Description 01/24/2025 1:00 PM EDT Clinical Support [facility] 230 [place] [address] 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 RN documented as of this encounter Visit Diagnoses Not on filedocumented in this encounter Additional Health Concerns Assessment Noted Time PHQ-9 Depression Total Score: 22 024 11:00 AM EDT documented as of this encounter Care Teams Water Treatment Technician Relationship Specialty Start Date End Date Carmen Bertrand DO 230 [place] [address] PCP - General Family Medicine 08/18/18 documented as of this encounter
--- OUTSIDE RECORDS SUMMARY | 2024-10-26 16:14 | XMS_ITS | Encounter Summary ---
Author Organization [employer] Address [address] [facility] [address] [place] [address] Care Team Providers Care Equipment Man Name Role Phone Carmen Bertrand DO Primary Care Provider + [phone] Reason for Visit * Reason Comments Med Refill Encounter Details Date Type Department Care Team ([facility] st Contact Info) Description 07/22/2023 Refill [facility] MED & PEDS [address] [place], [place] [phone] Carmen Bertrand DO [address] [facility] [place] [address] Hyperlipidemia, unspecified hyperlipidemia type Social History Tobacco [...] 1:00 PM EDT Clinical Support [facility] MED[facility] [address] [place] [address] 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 RN documented as of this encounter Visit Diagnoses Diagnosis Hyperlipidemia, unspecified hyperlipidemia type documented in this encounter Additional Health Concerns Assessment Noted Time PHQ-9 Depression Total Score: 21 023 11:26 AM EST documented as of this encounter Care Teams Equipment Man Relationship Specialty Start Date End Date Carmen Bertrand DO 230 [place] [address] PCP - General Family Medicine 08/18/18 documented as of this encounter
--- OUTSIDE RECORDS SUMMARY | 2024-10-26 16:14 | XMS_ITS | Encounter Summary ---
Author Organization [employer] Address [address] [facility] 7t [place] [address] Care Team Providers Care Rn Compliance Name Role Phone EdilsonCarmen dixon Primary Care Provider + [phone] Encounter Details Date Type Department Care Team (Latest Contact Info) Description 10/20/2024 Travel Social History Tobacco Use Types Packs/Day [...] Description 01/24/2025 1:00 PM EDT Clinical Support [facility] [address] [place] [address] 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 RN documented as of this encounter Visit Diagnoses Not on filedocumented in this encounter Additional Health Concerns Assessment Noted Time PHQ-9 Depression Total Score: 22 024 11:00 AM EDT documented as of this encounter Care Teams Rn Compliance Relationship Specialty Start Date End Date Carmen Bertrand DO 230 [place] [address] PCP - General Family Medicine 08/18/18 documented as of this encounter
--- OUTSIDE RECORDS SUMMARY | 2024-10-26 16:14 | XMS_ITS | Encounter Summary ---
Author Organization [employer] Address [address] [place] [address] 7t [place] [address] Care Team Providers Care Terrazzo Worker Name Role Phone Carmen Bertrand DO Primary Care Provider Reason for Referral * Consultation (STAT) - Authorized Specialty Diagnoses / Procedures Referred By Jackie charlton Referred To Contact Gastroenterology Diagnoses Positive colorectal cancer screening using Cologuard test Carmen Bertrand DO 230 [place] [address] Phone: tel: fax: [facility] [address] [place] [address] 2nd Floor [place], [place] Phone: tel: fax: Referral ID Status Reason Start Date Expiration Date Visits Requested Visits Authorized [id number] Authorized Specialty Services Required 10/01/2024 10/01/2025 1 1 Encounter Details Date Type Department Care Team (Late st Contact Info) Description 09/27/2024 11:45 AM EST Office Visit [facility] [address] [place] [address] Carmen Bertrand DO [address] [place], [place] [phone] Positive colorectal cancer screening using Cologuard test (Primary Dx) Social History Tobacco Use Types Packs/Day Years [...] 12:20 PM EST documented in this encounter Progress Notes * Carmen Elza, DO - 09/27/2024 11:45 AM EST SUBJECTIVE: Blaire Jean is a 49 y.o. year old female who presents for sick visit . HPI She comes in today to review recent results. She received call from red team RN last week and was told over the phone via out of school hours care worker that her cologuard test was positive and that she needed to be referred to GI to have a colonoscopy in order evaluate the colon and rectum. She was reassured during the call but all she heard was you have cancer. She became very anxious and called back later that day requesting visit with me to discuss results. She is not having any abd pain. She has no constipation. No rectal pain or bleeding. She has no family h/o colon cancer. She reports that she has cured her breast abscess with recommendations from her grandmother including betadine. She wants to know status of zepbound. She is eager to lose weight. Review of Systems Constitutional: Negative for chills and fever. Respiratory: Negative for shortness of breath. Cardiovascular: Negative for chest pain and leg swelling. Gastrointestinal: Negative for abdominal distention, abdominal pain, anal bleeding, blood in stool,constipation, diarrhea, nausea, rectal pain and vomiting. Neurological: Negative for headaches. Patient Active Problem List Diagnosis Essential hypertension Microscopic hematuria Mild persistent asthma Obstructive sleep apnea Posttraumatic stress disorder Major depression, recurrent, chronic ([facility]) Nephrolithiasis Fatty liver BMI 50.0-59.9, adult ([facility]) Prediabetes Tobacco dependence History of non-ST elevation myocardial infarction (NSTEMI) Chronic migraine Hyperlipidemia Osteoarthritis of knees, bilateral Coronary arteriosclerosis Chronic low back pain Leukocytosis Hirsutism Melasma Chronic pain of both knees Precordial pain CAD (coronary artery disease) S/P cardiac catheterization Allergies Allergen Reactions Aspirin Anaphylaxis Completed aspirin desensitization 05/2022 Penicillin G Shortness of breath Other reaction(s): DIFFICULTY BREATHING Penicillin V Anaphylaxis Semaglutide Other Reaction(s): Stomach Upset stomach upset + teeth loss OBJECTIVE Vitals: 09/27/24 1220 BP: 133/77 BP Location: Left arm Patient Position: Sitting BP Cuff Size: Adult Pulse: 65 Resp: 15 Temp: 97.3 ??F (36.3 ??C) TempSrc: Oral SpO2: 98% Weight: 370 lb (168 kg) Height: 5' 10 (1.778 m) Physical Exam Constitutional: General: She is not in acute distress. Appearance: Normal appearance. She is obese. Cardiovascular: Rate and Rhythm: Normal rate and regular rhythm. Heart sounds: Normal heart sounds. No murmur heard. Pulmonary: Effort: Pulmonary effort is normal. Breath sounds: Normal breath sounds. No wheezing or rhonchi. Neurological: General: No focal deficit present. Mental Status: She is alert and oriented to person, place, and time. Psychiatric: Attention and Perception: Attention normal. Mood and Affect: Mood is anxious and depressed. Speech: Speech normal. Behavior: Behavior normal. Thought Content: Thought content normal. Comments: tearful ASSESSMENT/PLAN Diagnoses and all orders for this visit: Positive colorectal cancer screening using Cologuard test -provided reassurance -advised pt and her dtr that cologuard is a screening test and she does not have a dx of cancer -advised pt that she needs a colonoscopy for further eval as she d/w team RN -referred to GI for eval and colonoscopy -advised contact [facility] if any concerns, she agrees with plans - Referral to Gastroenterology; Future F/U with me as scheduled or sooner prn Current Outpatient Medications: albuterol (2.5 MG/3ML) 0.083% nebulizer solution, INHALE 1-2 AMPULE USING A NEBULIZER EVERY 4 TO 6 HOURS NEEDED FOR COUGH, WHEEZING, OR SHORTNESS OF BREATH, Disp: 90 mL, Rfl: 3 albuterol (Ventolin HFA) 108 (90 Base) MCG/ACT inhaler, INHALE 2 PUFFS BY MOUTH EVERY 4 TO 6 HOURS NEEDED, Disp: 18 g, Rfl: 0 allopurinol (Zyloprim) 100 MG tablet, TAKE 1 TABLET BY MOUTH DAILY, Disp: , Rfl: aspirin (Aspirin Low Dose) 81 MG chewable tablet, CHEW 1 TABLET BY MOUTH EVERY DAY IN THE MORNING, Disp: 90 tablet, Rfl: 0 atorvastatin (Lipitor) 80 MG tablet, TAKE 1 TABLET BY MOUTH EVERY DAY, Disp: 90 tablet, Rfl: 3 baclofen (Lioresal) 10 MG tablet, TAKE 1 TABLET BY MOUTH THREE TIMES DAILY NEEDED FOR MUSCLE SPASMS, Disp: 60 tablet, Rfl: 2 benzoyl peroxide (PanOxyl Foaming Wash) 10 % external wash, Apply topically Once per day., Disp: 227 g, Rfl: 2 Blood Pressure kit, 1 each 1 (one) time per week., Disp: 1 kit, Rfl: 0 Brilinta 90 MG tablet, TAKE 1 TABLET BY MOUTH TWICE DAILY, Disp: 60 tablet, Rfl: 1 chlorhexidine (Hibiclens) 2 % external liquid, Apply topically Once per day. Apply topically daily x one week then use as needed, Disp: 236 mL, Rfl: 2 D3 Super Strength 50 MCG (2000 UT) capsule, TAKE 1 CAPSULE BY MOUTH ONCE DAILY, Disp: 90 capsule, Rfl: 3 econazole nitrate 1 % cream, APPLY TOPICALLY TO AFFECTED AREA(S) TWICE DAILY DIRECTED, Disp: 85 g, Rfl: 1 emtricitabine-tenofovir DF (Truvada) 200-300 MG tablet, TAKE 1 TABLET BY MOUTH EVERY DAY, Disp: 30 tablet, Rfl: 2 ergocalciferol (Vitamin D2) 1.25 MG (04125 UT) capsule, Take 1 capsule (1.25 mg) by mouth 1 (one) time per week., Disp: 12 capsule, Rfl: 0 ezetimibe (Zetia) 10 MG tablet, TAKE 1 TABLET BY MOUTH EVERY DAY, Disp: , Rfl: famotidine (Pepcid) 40 MG tablet, TAKE 1 TABLET BY MOUTH EVERY DAY AT BEDTIME NEEDED FOR HEARTBURN, Disp: 30 tablet, Rfl: 3 fluticasone (Flonase) 50 MCG/ACT nasal spray, INSTILL 2 SPRAYS IN EACH NOSTRIL ONCE DAILY, Disp: 48g, Rfl: 3 fluticasone (Flovent) 110 MCG/ACT inhaler, INHALE 2 PUFFS TWICE DAILY IN THE MORNING AND AT BEDTIME. RINSE MOUTH AFTER USING. DO NOT SWALLOW., Disp: 12 g, Rfl: 11 hydroCHLOROthiazide 12.5 MG tablet, Take 1 tablet by mouth Once per day., Disp: , Rfl: hydroquinone 4 % cream, Apply topically 2 times daily., Disp: 28.35 g, Rfl: 1 isosorbide mononitrate ER (Imdur) 60 MG 24 hr tablet, Take 1 tablet (60 mg) by mouth Once per day. Do not crush or chew., Disp: 30 tablet, Rfl: 11 lisinopril 30 MG tablet, Take 1 tablet (30 mg) by mouth Once per day., Disp: 30 tablet, Rfl: 11 metFORMIN XR (Glucophage-XR) 500 MG 24 hr tablet, Take 2 tablets (1,000 mg) by mouth with evening meal., Disp: 180 tablet, Rfl: 3 metoprolol succinate XL (Toprol-XL) 50 MG 24 hr tablet, TAKE 1 TABLET BY MOUTH ONCE DAILY, Disp: 90tablet, Rfl: 1 metroNIDAZOLE (Metrogel) 0.75 % gel, APPLY TOPICALLY TO THE AFFECTED AREA(S) ON FACE EVERY DAY NEEDED, Disp: 45 g, Rfl: 1 mirtazapine (Remeron) 7.5 MG tablet, TAKE 1 TABLET BY MOUTH AT BEDTIME, Ya no tomes quetiapine o paroxetine, Disp: , Rfl: naloxone (Narcan) 4 mg/0.1 mL nasal spray, Administer 1 spray (4 mg) into affected nostril(s) if needed for opioid reversal. May repeat every 2-3 minutes if needed, alternating nostrils, until medical assistance becomes available., Disp: 2 each, Rfl: 3 pyridoxine (Vitamin B-6) 100 MG tablet, TAKE 1 TABLET BY MOUTH EVERY DAY, Disp: , Rfl: Tirzepatide-Weight Management (Zepbound) 2.5 MG/0.5ML solution auto-injector, Inject 0.5 mL (2.5 mg) under the skin 1 (one) time per week., Disp: 2 mL, Rfl: 3 topiramate 50 MG tablet, TAKE 1 Tablet BY MOUTH TWICE DAILY, Disp: 60 tablet, Rfl: 5 traMADol (Ultram) 50 MG tablet, TAKE 1 TABLET BY MOUTH EVERY 8 HOURS NEEDED FOR SEVERE PAIN, Disp: 84 tablet, Rfl: 0 sbwajrr-yxrlvRSGZPNHC-atwwhewcxies (Pylera) 140-125-125 MG capsule, Take 3 capsules by mouth beforebreakfast, before lunch, before evening meal, and at bedtime for 14 days. Follow each dose with 8 oz of water., Disp: 168 capsule, Rfl: 0 omeprazole (PriLOSEC) [address] capsule, Take 2 capsules (40 mg) by mouth before breakfast and before evening meal. Do not crush or chew., Disp: 120 capsule, Rfl: 11 documented in this encounter Plan of Treatment Upcoming Encounters Date Type Department Care Team (Late st Contact Info) Description 01/24/2025 1:00 PM EDT Clinical Support [facility] MEDICINE [address] [place] [id number] 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, RN Scheduled Referrals Name Type Priority Associated Diagnoses Order Schedule Referral to Gastroenterology Outpatient Referral STAT Positive colorectal cancer screening using Cologuard test Expected: 10/01/2024 (Approximate), Expires: 10/01/2025 documented as of this encounter Visit Diagnoses Diagnosis Positive colorectal cancer screening using Cologuard test- Primary documented in this encounter Additional Health Concerns Assessment Noted Time PHQ-9 Depression Total Score: 22 024 11:00 AM EDT documented as of this encounter Care Teams Terrazzo Worker Relationship Specialty Start Date End Date Carmen Bertrand DO [address] [place] [address] PCP - General Family Medicine 08/18/18 documented as of this encounter
--- OUTSIDE RECORDS SUMMARY | 2024-10-26 16:14 | XMS_ITS | Clinical Summary ---
Author Organization [employer] Address [address] [facility] [address] [place] [address] Care Team Providers Care Backfiller Name Role Phone EdilsonCarmen dixon Primary Care Provider [phone] Allergies Active Allergy Reactions Criticality Noted Date [...] no tomes quetiapine o paroxetine 023 Active baclofen (Lioresal) 10 MG tabletIndications :Chronic low back pain, unspecified back pain laterality, unspecified whether sciatica present TAKE 1 TABLET BY MOUTH THREE TIMES DAILY NEEDED FOR MUSCLE SPASMS 60 tablet 2 023 Active omeprazole (PriLOSEC) [address] capsule Take 2 capsules (40 mg) by mouth before breakfast and before evening meal. Do not crush or chew. 120 capsule 11 023 Active bismuth-metroNIDA ZOLE-tetracycline (Pylera) 140-125-125 MG [...] available. 2 each 3 024 2024 Active D3 Super Strength 50 MCG (2000 UT) capsule TAKE 1 CAPSULE BY MOUTH ONCE DAILY 90 capsule 3 Active fluticasone (Flonase) 50 MCG/ACT nasal spray INSTILL 2 SPRAYS IN EACH NOSTRIL ONCE DAILY 48 g 3 Active fluticasone (Flovent) 110 MCG/ACT inhaler INHALE 2 PUFFS TWICE DAILY IN THE MORNING AND AT BEDTIME. RINSE MOUTH AFTER USING. DO NOT SWALLOW. 12 g 11 Active isosorbide mononitrate ER (Imdur) 60 MG 24 hr tablet Take 1 tablet (60 mg) by mouth Once per day. Do not crush or chew. 30 tablet 11 Active chlorhexidine (Hibiclens) 2 % external liquid Apply topically Once per day. Apply topically daily x one week then use as needed 236 mL 2 Active Blood Pressure kit 1 each 1 [...] topically 2 times daily. 28.35 g 1 2024 Active metFORMIN XR (Glucophage-XR) 500 MG 24 hr tablet Take 2 tablets (1,000 mg) by mouth with evening meal. 180 tablet 3 Active aspirin (Aspirin Low Dose) 81 MG chewable tabletIndications :Hyperlipidemia, unspecified hyperlipidemia type CHEW 1 TABLET BY MOUTH EVERY DAY IN THE MORNING 90 tablet Active hydroCHLOROthiazi de 12.5 MG tablet Take 1 tablet by mouth Once per day. 024 Active lisinopril 30 MG tablet Take 1 tablet (30 mg) by mouth Once per day. 30 tablet 11 025 2025 Active Tirzepatide-Weigh t Management (Zepbound) 2.5 MG/0.5ML solution auto-injector Inject 0.5 mL (2.5 mg) under the skin 1 (one) time per week. 2 mL 3 025 2025 Active ergocalciferol (Vitamin D2) 1.25 MG (97186 UT) capsule Take 1 capsule (1.25 mg) by mouth 1 (one) time per week. 12 capsule 025 Active econazole nitrate 1 % cream APPLY TOPICALLY TO AFFECTED AREA(S) TWICE DAILY DIRECTED 85 g 1 025 Active Brilinta 90 MG tablet TAKE 1 TABLET BY MOUTH TWICE DAILY 60 tablet 1 025 Active atorvastatin (Lipitor) 80 MG tablet TAKE 1 TABLET BY MOUTH EVERY DAY 90 tablet 3 025 Active albuterol (2.5 MG/3ML) 0.083% nebulizer solutionIndicatio ns:Mild persistent asthma without complication INHALE 1-2 AMPULE USING A NEBULIZER EVERY 4 TO 6 HOURS NEEDED FOR COUGH, WHEEZING, OR SHORTNESS OF BREATH 90 mL 3 025 Active albuterol (Ventolin HFA) 108 (90 Base) MCG/ACT inhalerIndication s:Mild persistent asthma without complication INHALE 2 PUFFS BY MOUTH EVERY 4 TO 6 HOURS NEEDED 18 g 025 Active metroNIDAZOLE (Metrogel) 0.75 % gelIndications:Me lasma APPLY TOPICALLY TO THE AFFECTED AREA(S) ON FACE EVERY DAY NEEDED 45 g 1 025 Active topiramate 50 MG tabletIndications :Nonintractable headache, unspecified chronicity pattern, unspecified headache type TAKE 1 TABLET BY MOUTH TWICE DAILY 60 tablet 5 025 Active metoprolol succinate XL (Toprol-XL) 50 MG 24 hr tabletIndications :Hypertension, unspecified type TAKE 1 TABLET BY MOUTH EVERY DAY 90 tablet 1 025 Active traMADol (Ultram) 50 MG tabletIndications :Chronic low back pain, unspecified back pain laterality, unspecified whether sciatica present Take 1 tablet (50 mg) by mouth every 8 (eight) hours if needed for severe pain for up to 28 days. Do not start before October 13, 2024. 84 tablet 025 2024 Active albuterol (2.5 MG/3ML) 0.083% nebulizer solutionIndicatio ns:Mild persistent asthma without complication INHALE 1-2 AMPULE USING A NEBULIZER EVERY 4 TO 6 HOURS NEEDED FOR COUGH, WHEEZING, OR SHORTNESS OF BREATH 90 mL 3 023 2024 Discontinued(R eorder (will not trigger notification to Pharmacy)) albuterol (Ventolin HFA) 108 (90 Base) MCG/ACT inhalerIndication s:Mild persistent asthma without complication INHALE 2 PUFFS BY MOUTH EVERY 4 TO 6 HOURS NEEDED 18 g 023 2024 Discontinued(R eorder (will not trigger notification to Pharmacy)) atorvastatin (Lipitor) 80 MG tablet TAKE 1 TABLET BY MOUTH EVERY DAY 90 tablet 3 023 2024 Discontinued(R eorder (will not trigger notification to Pharmacy)) topiramate 50 MG tabletIndications :Nonintractable headache, unspecified chronicity pattern, unspecified headache type TAKE 1 Tablet BY MOUTH TWICE DAILY 60 tablet 5 024 2024 Discontinued metoprolol succinate XL (Toprol-XL) 50 MG 24 hr tabletIndications :Hypertension, unspecified type TAKE 1 TABLET BY MOUTH ONCE DAILY 90 tablet 1 024 2024 Discontinued metroNIDAZOLE (Metrogel) 0.75 % gelIndications:Me lasma APPLY TOPICALLY TO THE AFFECTED AREA(S) ON FACE EVERY DAY NEEDED 45 g 1 024 2024 Discontinued(R eorder (will not trigger notification to Pharmacy)) traMADol (Ultram) 50 MG tabletIndications :Chronic low back pain, unspecified back pain laterality, unspecified whether sciatica present TAKE 1 TABLET BY MOUTH EVERY 8 HOURS NEEDED FOR SEVERE PAIN 84 tablet 025 2024 Discontinued(R eorder (will not trigger notification to Pharmacy)) Active Problems Problem Noted Date Diagnosed Date [...] stone 06/05/2015 09/19/2022 Steatosis of liver 06/05/2015 3 Tobacco dependence syndrome 06/05/2015 09/19/2022 Encounters Date Type Department Care Team Description 10/21/2024 1:30 PM EST Clinical Support [facility] [address] [place] [address] 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 RN Chronic bilateral low back pain without sciatica (Primary Dx) 10/21/2024 Travel 10/20/2024 2:30 PM EST Office Visit [facility] [address] [place] [address] Leiws, Tova, OD Presbyopia (Primary Dx); Cup to disc asymmetry, left; Age-related nuclear cataract of both eyes 10/20/2024 Travel 10/11/2024 Refill [facility] [address] [place] [address] Carmen Bertrand DO Hypertension, unspecified type 10/06/2024 Telephone [facility] [address] [place], [place] [phone] Carmen Bertrand DO Prior Authorization 10/06/2024 Refill [facility] [address] [place] [address] Ирина Mckeon MD Nonintractable headache, unspecified chronicity pattern, unspecified headache type 10/05/2024 Refill [facility] [address] [place] [address] Carmen Bertrand DO Chronic low back pain, unspecified back pain laterality, unspecified whether sciatica present 10/05/2024 Telephone [facility] [address] [place] [phone] Carmen Bertrand DO Nurse Triage 10/05/[address] [address] Carmen Bertrand DO Mild persistent asthma without complication; Melasma 10/01/[address] [address] Carmen Bertrand DO 09/30/2024 Orders Only GENERIC EXTERNAL DATA DEPARTMENT Provider, Generic External Data 09/29/2024 Orders Only GENERIC EXTERNAL DATA DEPARTMENT Provider, Generic External Data 09/27/2024 11:45 AM EST Office Visit [address] [address] Carmen Bertrand DO Positive colorectal cancer screening using Cologuard test (Primary Dx) 09/27/2024 Travel 09/21/[address] [address] Trista Alford, RN Results 09/17/2024 Orders Only GENERIC EXTERNAL DATA DEPARTMENT Provider, Generic External Data 09/17/2024 Refill [facility] [address] [place] [address] Carmen Bertrand DO 09/15/[address] [address] Carmen Bertrand DO Appointment Request 09/08/[address] [address] Carmen Bertrand DO Prior Authorization ([facility] request: Zepbound) 09/07/2024 Refill [facility] [address] [place] [address] Carmen Bertrand DO Chronic low back pain, unspecified back pain laterality, unspecified whether sciatica present 09/05/2024 Refill [facility] [address] [place] [address] Carmen Bertrand DO 08/31/2024 Refill [facility] [address] [place] [phone] Trista Alford RN 08/30/[address] [address] Carmen Bertrand DO Prior Authorization 08/24/2024 10:45 AM EST Office Visit [facility] [address] [place] [phone] Carmen Bertrand DO Essential hypertension (Primary Dx); [...] Travel 08/13/2024 10:15 AM EST Office Visit [facility] [address] [place] [phone] Alexandra Lisa MD Acanthosis nigricans (Primary Dx); Folliculitis 08/13/2024 Refill [facility] [address] [place], [place] [phone] Carmen Bertrand DO Hyperlipidemia, unspecified hyperlipidemia type 08/13/2024 Refill [facility] [address] [place] [address] Carmen Bertrand DO Chronic low back pain, unspecified back pain laterality, unspecified whether sciatica present; Hyperlipidemia, unspecified hyperlipidemia type 08/13/2024 Travel 08/04/2024 Refill [facility] [address] [place] [address] Ирина Mckeon MD 08/04/2024 Refill [facility] [address] [place] [address] Carmen Bertrand DO On pre-exposure prophylaxis for HIV from Last 3 Months Immunizations Name Administration [...] 05/21/2021 Td (adult), unspecified 05/21/2021 Tdap 06/13/2011 Family History Medical History Relation Name Comments Glaucoma Mother Relation Name Status Comments Mother Social History Tobacco Use Types Packs/Day Years [...] Description 01/24/2025 1:00 PM EDT Clinical Support [address] [address] 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, RN Health Maintenance Due Date [...] Screening 09/27/2025 09/27/2024 Depression Screening 09/27/2025 09/27/2024, 04/27/20 24 Tobacco Screening 10/20/2025 10/20/2024 Zoster Vaccines (1 of 2) 2026 Mammogram [...] Procedure Name Priority Date/Time Associated Diagnosis Comments POCT ANALISA-14 URINE DRUG SCREEN Routine 10/21/2024 2:02 PM EST Chronic bilateral low back pain without sciatica FUNDUS PHOTOS - OU - BOTH EYES Routine 10/20/2024 2:30 PM EST Cup to disc asymmetry, left HIGH SENSITIVITY TROPONIN I Routine 09/30/2024 12:01 [...] right ear Healthcare maintenance BMI 50.0-59.9, adult ([facility]) Encounter for screening for malignant neoplasm of [...] right ear Healthcare maintenance BMI 50.0-59.9, adult ([facility]) Encounter for screening for malignant neoplasm of [...] right ear Healthcare maintenance BMI 50.0-59.9, adult ([facility]) Encounter for screening for malignant neoplasm of [...] right ear Healthcare maintenance BMI 50.0-59.9, adult ([facility]) Encounter for screening for malignant neoplasm of [...] for screening for malignant neoplasm of colon BI US BREAST LIMITED BILATERAL Routine 06/02/2024 [...] Recently Relevant to Health Maintenance Results * POCT ANALISA-14 Urine Drug Screen (10/21/2024 2:02 PM EST) Urine Urine specimen obtained by clean catch procedure / Unknown 10/21/2024 2:02 PM EST Narrative 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, RULA - 10/21/2024 2:02 PM EST UTOX cup Lot#[id number] Exp. 04/06/26 Internal Pass Control UTOX Negative for all substances. Carmen Bertrand DO POINT OF CARE TEST ENTER/LANEY T ORDERABLES Final Result * High Sensitivity Troponin I (09/30/2024 12:01 AM EST) Only the most recent of2 resultswithin the time period is included. TROPONIN I HIGH SENSITIVITY <2.7 <3.5 - 17.0 ng/L [facility] Comment:The [place] high sens itivity Troponin-I results should beused in conjunction with other diagnostic information suchas ECG, clinical observations and information, and patientsymptoms to aid in the diagnosis of MD. 09/30/2024 12:0 1 AM EST 09/30/2024 12:04 AM EST us Generic External Data Provider LAB BLOOD ORDERAB LES Final Result [facility] [address] [place] [phone] * SARS-CoV-2 RNA, Influenza A/B, and RSV RNA, Ql NAAT (09/29/2024 3:25 PM EST) Pathologist [facility] Influenza A PCR NEGATIVE Negative [facility] Influenza B PCR NEGATIVE Negative [facility] Resp Syncy Virus RNA Qual PCR NEGATIVE Negative [facility] SARS COV2 PCR NEGATIVE Negative [facility] Comment:All test results mus t [...] use by authorized laboratories.Testing performed on the [id number] GeneXpert utilizingreal-time RT-PCR.All SARS CoV2 and positive influenza A/B results arereported to [facility]. 09/29/2024 3:25 PM EST 09/29/2024 3:28 PM EST us Generic External Data Provider LAB MICROBIOLOGY - GENERAL ORDERABLES Final Result [facility] [address] [place] [address] [phone] * (ABNORMAL) CBC auto differential (09/29/2024 3:25 PM EST) White Blood Count 11.0(H) 4.8 - 10.8 X10*3/uL [facility] Red Blood Count 4.22 4.20 - 5.50 X10*6/uL [facility] Hemoglobin 13.1 12.0 - 16.0 g/dl [facility] Hematocrit 39.2 37.0 - 47.0 % [facility] Mean Corpuscular Volume 92.9 80.0 - 98.0 fL [facility] Mean Corpuscular Hemoglobin 31.0 27.0 - 33.0 pg [facility] Mean Corpuscular HGB Conc 33.4 31.0 - 35.0 g/dl [facility] Red Cell Distribution Width 14.3 11.0 - 16.0 % [facility] Platelet Count 284 160 - 400 X10*3/uL [facility] Mean Platelet Volume 9.6 9.4 - 12.3 fL [facility] Neutrophils Percent Auto 54.4 45 - 73 % [facility] Imm Gran Pct Auto 0.6(H) 0.0 - 0.4 % [facility] Lymphocytes Percent Auto 32.6 20 - 40 % [facility] Monocytes Percent Auto 9.2 2 - 11 % [facility] Eosinophils Percent Auto 2.7 0 - 4 % [facility] Basophils Percent Auto 0.5 0 - 2 % [facility] NRBC Pct Auto 0.0 0.0 - 0.2 /100WBC [facility] Neutrophils Absolute Auto 6.0 2.0 - 8.3 x10*3/uL [facility] Imm Gran Abs Auto 0.07(H) 0.00 - 0.03 X10*3/uL [facility] Lymphocytes Absolute Auto 3.6 1.2 - 4.9 X10*3/uL [facility] Monocytes Absolute Auto 1.0 0.1 - 1.2 X10*3/uL [facility] Eosinophils Absolute Auto 0.3 0.0 - 0.4 X10*3/uL [facility] Basophils Absolute Auto 0.1 0.0 - 0.2 X10*3/uL [facility] NRBC Abs Auto 0.000 0.0 - 0.012 X10*3/uL [facility] 09/29/2024 3:25 PM EST 09/29/2024 3:28 PM EST us Generic External Data Provider LAB BLOOD ORDERAB LES Final Result Performing Organization Address City/State/[facility] Co de Phone Number [facility] [address] [place] [phone] * Prothrombin Time-INR (09/29/2024 3:25 PM EST) Prothrombin Time 11.4 10.9 - 12.4 SEC [facility] INTERNATIONAL NORM RATIO 1.0 0.9 - 1.1 [facility] Comment:INTERNATIONAL NORMAL IZED RATIO (INR) REFERENCE [...] ORDERAB LES Final Result Performing Organization Address [facility] Phone Number [facility] [address] [place] [phone] * B Type Natriuretic Peptide (BNP) (09/29/2024 3:25 PM EST) [facility] B Type Natriuretic Peptide 45 <100 pg/mL [facility] Comment:For those patients w ho are being treated with Natrecor(nesiritide, recombinant BNP), BNP testing should beperformed at least two hours post treatment in order toensure that only endogenous levels of BNP are detected. 09/29/2024 3:25 PM EST 09/29/2024 3:28 PM EST Generic External Data Provider LAB BLOOD ORDERAB LES Final Result Performing Organization Address [facility] de Phone Number [facility] [address] [place] [phone] * Magnesium (09/29/2024 3:25 PM EST) [facility] Magnesium 1.9 1.6 - 2.6 mg/dL [facility] 09/29/2024 3:25 PM EST 09/29/2024 3:28 PM EST Generic External Data Provider LAB BLOOD ORDERAB LES Final Result Performing Organization Address [facility] de Phone Number [facility] [address] [place] [phone] * Hepatic Function Panel (09/29/2024 3:25 PM EST) Only the most recent of2 resultswithin the time period is included. [facility] Bilirubin, Total 0.5 0.0 - 1.0 mg/dL [facility] Bilirubin, Direct 0.2 0.0 - 0.5 mg/dL [facility] Aspartate Amino Transferase 22 5 - 31 U/L [facility] Alanine Aminotransferase 21 0 - 31 U/L [facility] Total Protein 7.8 6.5 - 8.0 g/dL [facility] Albumin Level 3.6 3.5 - 5.0 g/dL [facility] Alkaline Phosphatase 94 39 - 117 U/L [facility] 09/29/2024 3:25 PM EST 09/29/2024 3:28 PM EST us Generic External Data Provider LAB BLOOD ORDERAB LES Final Result [facility] [address] [place] [phone] [phone] * Basic Metabolic Panel (09/29/2024 3:25 PM EST) Only the most recent of2 resultswithin the time period is included. Sodium 140 135 - 145 mmol/L [facility] Potassium 4.6 3.3 - 5.1 mmol/L [facility] Chloride 108 96 - 108 mmol/L [facility] Carbon Dioxide 25 22 - 29 mmol/L [facility] Anion Gap 12 12 - 20 [facility] Urea Nitrogen (BUN) 12 9 - 16 mg/dL [facility] Creatinine, Serum 0.82 0.5 - 1.4 mg/dL [facility] Creatinine Clr Calc Pharmacy 139.5 [facility] Comment:Provided height and weight: 175.26 cm,164.1 kg.eGFR (calculated from the MDRD study equation) and eCrCl(calculated from the Cockcroft-Gault equation) are based ondifferent parameters and may not yield comparable results.If eCrCl result is absurd, please check patient'sheight/weight. Estimated Glomerular Filt Rate >60 [facility] Comment:Chronic Kidney Disea se: Estimated GFR < 60 mL/min/[id number] Kidney Disease: Estimated GFR < 15 mL/min/1.73m2 Glucose 97 60 - 115 mg/dL [facility] Calcium 9.6 8.4 - 10.2 mg/dL [facility] 09/29/2024 3:25 PM EST 09/29/2024 3:28 PM EST us Generic External Data Provider LAB BLOOD ORDERAB LES Final Result [facility] [address] [facility] [place] [phone] * XR Hip 2 or 3 Views Right (09/17/2024 5:59 PM EST) Anatomical Region Laterality Modality Lower Extremities, Hip Right Radiograp hic Imaging 09/17/2024 5:59 PM EST Narrative 09/17/2024 6:00 PM EST ? [facility] ? [address] ?[place] [address] ?XRay Report ? Signed ? Patient: Blaire Quiroz ?MR#: M ?? [id number] ? : 1975 ?Acct:[id number] ? Age/Sex: 49 / F ?ADM Date: 09/17/24 ? Loc: HO.HOSX ? Attending Dr: Heather Uriarte MD ? Ordering Physician: Heather Aviles ?? Date of Service: 09/17/24 ?? Procedure(s): XR hip RT min 2V ?? Accession Number(s): [id number] ? cc: Carmen Bertrand DO; Heather Aviles [...] DD/ 1759 ? TD/TT: 09/17/24 1759 ? Receiving Lead: ? Procedure Note Geno, Image - 09/17/2024 [facility] [address] [place] [address] XRay Report Signed Patient: Blaire Quiroz#: M [id number] : 1975Acct:[id number] Age/Sex: 49 / FADM Date: 09/17/24 Loc: HOGeorgiHOSX Attending Dr: Heather Uriarte MD Ordering Physician: Heather Aviles Date of Service: 09/17/24 Procedure(s): XR hip RT min 2V Accession Number(s): [id number] cc: Carmen Bertrand DO; Heather Aviles CLINICAL [...] Garcia MD in OV> 09/17/24 1800 DD/ 175 TD/TT: 09/17/24 175 Receiving Lead: [facility] External Provider IMG XR PROCEDURES Final Result * XR Sacroiliac Joints 1-2 Views (09/17/2024 5:59 PM EST) Anatomical Region Laterality Modality Sacroiliac joint, Pelvis Radiogr aphic Imaging 09/17/2024 5:59 PM EST Narrative 09/17/2024 6:00 PM EST ? [facility] ? [address] ?[place] [address] ?XRay Report ? Signed ? Patient: Blaire Quiroz ?MR#: M ?? [id number] ? : 1975 ?Acct:[id number] ? Age/Sex: 49 / F ?ADM Date: 01/31/25 ? Loc: HO.HOSX ? Attending Dr: Heather Uriarte MD ? Ordering Physician: Heather Aviles ?? Date of Service: 09/17/24 ?? Procedure(s): XR sacroiliac joint 1-2V ?? Accession Number(s): [id number] ? cc: Carmen Bertrand DO; Heather Aviles [...] in OV> ? 09/17/24 1800 ? DD/ 58 ? TD/TT: 09/17/241758 ? Receiving Lead: ? Procedure Note Donbeatricewalterdinorater, Image - 09/17/2024 [facility] [address] [place] [address] [address] [place] [address] XRay Report Signed Patient: Blaire Quiroz#: M [id number] : 1975Acct:[id number] Age/Sex: 49 / FADM Date: 09/17/24 Loc: HO.VELMAX Attending Dr: Heather Uriarte MD Ordering Physician: Heather Aviles Date of Service: 09/17/24 Procedure(s): XR sacroiliac joint 1-2V Accession Number(s): [id number] cc: Carmen Bertrand DO; Heather Aviles CLINICAL [...] OV> 09/17/24 1800 DD/ 58 TD/TT: 09/17/241758 Receiving Lead: [facility] External Provider IMG XR PROCEDURES Final Result * (ABNORMAL) Rheumatoid Factor (09/17/2024 11:45 AM EST) Rheumatoid Factor 28.2(H) <15.0 IU/mL [facility] 09/17/2024 11:4 5 AM EST 09/17/2024 11:45 AM EST us Generic External Data Provider LAB BLOOD ORDERAB LES Final Result [facility] [address] [place] [phone] [phone] * (ABNORMAL) REBECCA Screen,IFA, with Reflex to Titer and Pattern (09/17/2024 11:45 AM EST) Anti Nuclear Antibody Screen POSITIVE (A) NEGATIVE [facility] Comment:REBECCA IFA is a first l ine screen for detecting thepresence of up to approximately 150 autoantibodies invarious autoimmune diseases. A positive REBECCA IFA resultis suggestive of autoimmune disease and reflexes totiter and pattern. Further laboratory testing may beconsidered if clinically indicated.For additional information, please refer [email or web address](This link is being provided for informational/educational purposes only.) REBECCA Titer 1:40(A) titer [facility] Comment:A low level REBECCA tite r may be present in pre-clinicalautoimmune diseases and normal individuals. Reference Range <1:40 Negative 1:40-1:80 Low Antibody Level >1:80 Elevated Antibody Level REBECCA Pattern Nuclear, Speckled (A) [facility] Comment:Speckled pattern is associated with mixed connectivetissue disease (MCTD), systemic lupus erythematosus(SLE), Sjogren's syndrome, dermatomyositis, andsystemic sclerosis/polymyositis overlap.AC-2,4,5,29: SpeckledInternational Consensus on REBECCA Patterns(https://doi.org/10.1515/tlfn-0387-6093)THIS TEST WAS PERFORMED AT:[facility] [place] [phone] HINTON MD REBECCA TITER 2 (REF LAB) [facility] REBECCA Pattern 2 TNP [facility] REBECCA TITER 3 TNP [facility] REBECCA PATTERN 3 [facility] 09/17/2024 11:4 5 AM EST 09/17/2024 11:45 AM EST us Generic External Data Provider LAB BLOOD ORDERAB LES Final Result [facility] [address] [place] [phone] * (ABNORMAL) Cologuard?? colon cancer screening (08/31/2024 10:33 AM EST) Cologuard Result Positive( A) Negative 09/07/2024 10:16 AM EST [facility] (CLIA #:[id number]) Comment: POSITIVE TEST RESULT. A positive Cologuard [...] screened with both Cologuard and colonoscopy. (Ashleigh Rodas, N Engl J Med 2014;370(14):7879-4852.) Cologuard may produce a false negative or false positive result (no colorectal cancer or precancerous polyp present at colonoscopy follow up). A negative Cologuard test result does not guarantee the absence of CRC or advanced adenoma (pre-cancer). The current Cologuard screening interval is every 3 years. ([place] [employer] and U.S. Multi-Society Task Force). Cologuard performance data in a 10,000 patient pivotal study using colonoscopy as the reference method can be accessed at the following location: www.[employer].e-channel/results. Additional description of the Cologuard test process, warnings and precautions can be found at www.[employer].e-channel. Stool specimen (specimen) 08/31/2024 10:33 AM EST 09/01/2024 11:06 AM EST Carmen Bertrand DO LAB MOLECULAR DIAGNOSTICS OR DERABLES Final Result [facility] (CLIA #:[id number]) [place] [address], * (ABNORMAL) Vitamin D, 25-Hydroxy, Total, Immunoassay (08/24/2024 11:57 AM EST) Vitamin D 25-OH Total 19.8(L) >30 ng/mL [facility] Comment:Health Based Referen ce Values*< 20 ng/mL Achrgiyhg78-65 ng/mL Insufficient> 30 ng/mL Sufficient*Alen KOTHARI. N [...] ORDERABLES Final R esult Performing Organization Address City/[facility]/ZIP Co de Phone Number [facility] [address] [place] [phone] * CBC (08/24/2024 11:57 AM EST) White Blood Count 9.1 4.8 - 10.8 X10*3/uL [facility] Red Blood Count 4.38 4.20 - 5.50 X10*6/uL [facility] Hemoglobin 13.3 12.0 - 16.0 g/dl [facility] Hematocrit 40.8 37.0 - 47.0 % [facility] Mean Corpuscular Volume 93.2 80.0 - 98.0 fL [facility] Mean Corpuscular Hemoglobin 30.4 27.0 - 33.0 pg [facility] Mean Corpuscular HGB Conc 32.6 31.0 - 35.0 g/dl [facility] Red Cell Distribution Width 14.6 11.0 - 16.0 % [facility] Platelet Count 293 160 - 400 X10*3/uL [facility] Mean Platelet Volume 10.2 9.4 - 12.3 fL [facility] NRBC Pct Auto 0.0 0.0 - 0.2 /100WBC [facility] NRBC Abs Auto 0.000 0.0 - 0.012 X10*3/uL [facility] Blood Venous blood specimen / Unknown 08/24/2024 11:57 AM EST 08/24/2024 1:03 PM EST Carmen Bertrand LAB BLOOD ORDERABLES Final R esult Performing Organization Address City/[facility]/ZIP Co de Phone Number [facility] [address] [place] [phone] * TSH (08/24/2024 11:57 AM EST) Thyroid Stimulating Hormone 1.83 0.32 - 4.0 uIU/mL [facility] Comment:TSH 3rd Generation ( [facility]) Blood Venous blood specimen / Unknown 08/24/2024 11:57 AM EST 08/24/2024 1:03 PM EST Carmen Bertrand DO LAB BLOOD ORDERABLES Final R esult [facility] [address] [place] [phone] * T4, Free (08/24/2024 11:57 AM EST) Free T4 (Free Thyroxine) 0.89 0.71 - 1.85 ng/dL [facility] Blood Venous blood specimen / Unknown 08/24/2024 11:57 AM EST 08/24/2024 1:03 PM EST Carmen Bertrand DO LAB BLOOD ORDERABLES Final R esult [facility] [address] [place] [phone] * Hemoglobin A1c (08/24/2024 11:57 AM EST) Hemoglobin A1c 6.0 <6.0 % [facility] Comment:Hemoglobin A1C Refer ence Range Adults: 4.8 - 6.0 % Non diabetic: < 6.0 % Goal: < 7.0 %Additional Action Suggested: > 8.0 %Note: Hemoglobin A1c results are invalid for patients with abnormal amounts of HbF. Blood transfusions may impact the HbA1c concentration in the patient sample. Estimated Average Glucose 126 mg/dL [facility] Comment:eAG = Estimated ave rage glucose which is %A1C expressed asaverage glucose, using the formula of the V2D-SasnuldFiytxdv Glucose study (ADAG), Diabetes Care, Vol.31,#8,Mar. 2007 Blood Venous blood specimen / Unknown 08/24/2024 11:57 AM EST 08/24/2024 1:03 PM EST Carmen Elza DO LAB BLOOD ORDERABLES Final R esult Performing Organization Address City/[facility]/ZIP Co de Phone Number [facility] [address] [place] [phone] * (ABNORMAL) Lipid Panel, Standard (08/24/2024 11:57 AM EST) Triglycerides 82 <150 mg/dL [facility] Comment:Desirable Triglyceri de: less than 150 mg/dLBorderline High Triglyceride 150-199 mg/dLHigh Triglyceride: 200-499 mg/dLVery High Triglyceride: greater than or equal to 5OO mg/dL Cholesterol 136 <200 mg/dL [facility] Comment:Desirable Cholestero l: less than 200 mg/dLBorderline High Cholesterol: 200-239 mg/dLHigh Cholesterol: greater than 239 mg/dL LDL Cholesterol Calculated 81 <100 mg/dL [facility] Comment:Desirable LDL: less than 100 mg/dLNear Optimal/Above Optimal LDL: 110- 129 mg/dLBorderline High LDL: 130-159 mg/dLHigh LDL: 160-189 mg/dLVery High LDL: greater than or equal to 190 mg/dL HDL Cholesterol 39(L) >40 mg/dL [facility] Comment:Desirable HDL: great er than 40 mg/dL Note: This HDL assay may give artificially low results in patients with liver disease. Blood Venous blood specimen / Unknown 08/24/2024 11:57 AM EST 08/24/2024 1:03 PM EST Carmen Bertrand DO LAB BLOOD ORDERABLES Final R esult Performing Organization Address City/[facility]/ZIP Co de Phone Number [facility] [address] [place] [phone] * BI US Breast Limited Bilateral (06/02/2024 2:00 PM EDT) Anatomical Region Laterality Modality Breast Bilateral Ultrasound 06/02/2024 2:00 PM EDT Narrative 06/03/2024 8:44 AM EDT ? [facility] ? [address] ?[place], [place] [address] ? Ultrasound Report ? Signed ? Patient: Blaire Quiroz ?MR#: M ?? [id number] ? : 1975 ?Acct:[id number] ? Age/Sex: 49 / F ?ADM Date: 06/02/24 ? Loc: HO.MAMMO ? Attending Dr: Carmen Bertrand DO ? Ordering Physician: Carmen Bertrand DO ?? Date of Service: 06/02/24 ?? Procedure(s): US breast BI limited mamm only ?? Accession Number(s): [id number] ? cc: Carmen Bertrand DO ? EXAMINATION: [...] DD/ 1400 ? TD/TT: 06/02/24 1454 ? Receiving Lead: ? Procedure Note Dawna Lora - 06/03/2024 [facility] [address] [place] [address] Dr. [place], [place] [address] Ultrasound Report Signed Patient: Debi Quirozmanda#: M [id number] : 1975Acct:[id number] Age/Sex: 49 / FADM Date: 06/02/24 Loc: HO.MAMMO Attending Dr: Carmen Bertrand DO Ordering Physician: Carmen Bertrand DO Date of Service: 06/02/24 Procedure(s): US breast BI limited mamm only Accession Number(s): [id number] cc: Carmen Bertrand DO EXAMINATION: US DIAGNOSTIC [...] Shamir Olmedo MD 06/03/2024 08:41 AM EDT Workstation: [employer] Dictated By: Shamir Olmedo MD Signed By: <Electronically signed by Shamir Olmedo MD in OV> 06/03/24 0841 DD/ 1400 TD/TT: 06/02/24 1454 Receiving Lead: us Carmen Bertrand DO IMG US PROCEDURES Final Resu lt * Hepatitis C Antibody with Reflex to HCV, RNA, Quantitative, Real-Time PCR (04/27/2024 2:02 PM EDT) Hepatitis C Antibody Nonreactive Nonreactive [facility] Comment:Antibodies to HCV no t detected; does not exclude early acuteHCV infection. Blood Venous blood specimen / Unknown 04/27/2024 2:02 PM EDT 04/27/2024 4:01 PM EDT us Carmen Bertrand DO LAB BLOOD ORDERABLES Final R esult [facility] [address] [place] [phone] * HIV Ab/Ag ([facility]) (02/21/2023 2:35 PM EDT) HIV AB/AG Nonreactive Nonreactive [facility] Comment:HIV-1 p24 Ag and/or HIV-1/HIV-2 Ab not detected.A test result that is nonreactive does not exclude thepossibility of exposure to or infection with HIV-1 and/orHIV-2. Nonreactive results in this assay for individualswith prior exposure to HIV-1 and/or HIV-2 may be due toantigen and antibody levels that are below the limit ofdetection of this assay.The [facility] HIV Ag/Ab Combo assay result andsupplemental assay results should be interpreted inconjunction with the patient's clinical presentation,history and other laboratory results. If the results areinconsistent with clinical evidence, additional testing issuggested to confirm the result. 02/21/2023 2:35 PM EDT 02/21/2023 2:37 PM EDT [facility] External Provider LAB BLO OD ORDERABLES Final Result [facility] [address] [place] [phone] from Last 3 Months or Most Recently Relevant to Health Maintenance Insurance Care Teams Backfiller Relationship Specialty Start Date End Date Carmen Bertrand DO [address] [place] [address] PCP - General Family Medicine 08/18/18
--- OUTSIDE RECORDS SUMMARY | 2024-10-26 16:14 | XMS_ITS | Encounter Summary ---
Author Organization [employer] Address [address] [facility] [address]t [place] [address] Care Team Providers Care Chief Operator Lock Tender Name Role Phone EdilsonCarmen dixon Primary Care Provider + [phone] Reason for Visit * Reason Comments Blurred Vision Encounter Details Date Type Department Care Team ([facility] st Contact Info) Description 10/20/2024 2:30 PM EST Office Visit [facility] [address] [place] [address] Lewis, Tova, OD [address] [place] [address] Presbyopia (Primary Dx); Cup to disc asymmetry, left; Age-related nuclear cataract of both eyes Social History Tobacco Use Types Packs/Day Years [...] Clinical Support [facility] [address] [place] [address] 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, RULA Pending Results Name Type Priority Associated Diagnoses Date /Time Fundus Photos - OU - Both Eyes Ophthalmology Routine Cup to disc asymmetry, left 10/20/2024 2:30 PM EST documented as of this encounter Procedures Procedure Name Priority Date/Time Associated Diagnosis Comments FUNDUS PHOTOS - OU - BOTH EYES Routine 10/20/2024 2:30 PM EST Cup to disc asymmetry, left documented in this encounter Visit Diagnoses Diagnosis Presbyopia- Primary Cup to disc asymmetry, left Age-related nuclear cataract of both eyes documented in this encounter Additional Health Concerns Assessment Noted Time PHQ-9 Depression Total Score: 22 024 11:00 AM EDT documented as of this encounter Care Teams Chief Operator Lock Tender Relationship Specialty Start Date End Date Carmen Bertrand DO [address] [place] [address] PCP - General Family Medicine 08/18/18 documented as of this encounter
--- OUTSIDE RECORDS SUMMARY | 2024-10-26 16:14 | XMS_ITS | Data Portability ---
Author Organization [facility] [place] - [facility] Address [address] [place] [phone] Care Team Providers Care Vehicle Insurance Agent Name Role Phone [facility] OTHER [facility] OTHER Assessment Encounter Date Assessment Date Assessment [...] recorded. Lab rapid flu (A+B) [address] [facility], [address] [place] [address], [phone], 5 15:45:24 rapid SARS CoV 2 Ag, QL IA, respiratory specimen [address] [facility], [address] [place] [address], [phone], 5 15:45:08 Referral None recorded. Procedures None recorded. Surgeries None recorded. Imaging None recorded. Medication Orders albuterol sulfate 2.5 mg/3 mL (0.083 %) solution for nebulizatio n 2024 025 [facility][id number], [address] [place], [address], 18:27:03 Patient TargetsNo targets recorded. Patient InstructionsNo [...] Name and Address Organization Details Recorded Time 64121 aspirin medicatio n Not available Not available Not available 10/05/2024 1191 Rx[facility] Not Available [facility] - production 5 13:36:43 71949 penicilli n V Not available Not available Not available Not available 10/05/2024 7984 RxNorm Not Available [facility] - production 5 13:36:43 28515 penicilli n G procaine medicatio n Not available Not available Not available 10/05/2024 7983 RxNorm Not Available [facility] - production 5 13:36:43 55856 penicilli n G benzathin e medicatio n [...] % 172.72 cm 18 /min 98.4 [degF] 977475. 272 g 131 mm[Hg] 78 mm[Hg] Not [...] SNOMED-CT Code Diagnosis ICD10 Code Diagnosis Note [id number] Reese Jarvis MD Main - [facility] [address] [place] [phone] 10/05/2024 14:55:01 10/07/2024 08:39:41 Wheezing 06195459 R06.2 Health Concerns Section Related Observation LastModified by Organization Detai ls LastModified Time None Recorded Concern Status LastModified by Organization Details LastModified Time None Recorded Advance Directives Directive None Recorded Payers Encounter Date Sequence Insurance Name Policy Number Policy Parra Covered Member ID Parra Member ID Guarantor Name 10/05/2024 1 [facility] - DOS ON OR AFTER 2022 - DUAL ELIGIBLE - [employer] AND ONE CARE (MEDICARE REPLACEMENT/ADV ANTAGE - HMO) Blaire Santosminnie Jean [id number] Blaire Jean Notes Date Note Type Note Provider Name and Address Organization Details Recorded Time 10/05/2024 text/html HPI: Call returned to Blaire Jean to triage below. Reports having Headache, Fever, Body Aches, Sore Throat, Runny Nose x 3 days. Per pt seen at [facility] ER on Friday. Per pt seen for CP. Had testing done while in ER. Pt had negative homekit for COVID-19 last night. Reports having SOB with exertion. No wheezing. Pt speaking in clear full sentences. Pt advised of disposition, unable to come into [facility]. Agrees to [facility] for evaluation. Confirmed demographics and allergies. .................. .................. .................. .................. .................. .................. .................. ............... CRC Nurse Triage Notes (Radha Martinez - RN): Chief Complaints: Cough, Fever/chills, Headache, Sore throat, Breathing problems PMH: Hypertension, Asthma, Coronary Artery Disease PMH Reviewed at 10/05/2024 - 13:36 Allergies Reviewed at 10/05/2024 - 13:36 Comments: CRC RN did not require any additional information to process this visit. Library Media Techn[employer] Organization Information for Castillo Ankita Bhmuika FOY I AM AT Legal Name: [employer]? Address: [address] [place] [address], Technology Sales Representative: Marino Dow MD CLIA No.: [id number] Library Media Technician POC Test Results from Ankita Castillo - ALS Rapid COVID antigen (14:56:21) COVID: - Rapid influenza antigen (14:56:24) Flu: - Rapid strep test (14:56:25) Strep: - .................. .................. .................. .................. .................. .................. .................. ............... Library Media Technician Note From Jonathan Ankita: Sent to a call for a pt complaining of URI symptoms. SC8 arrives on scene, pt is alert and oriented, airway is patent. Pt complains of URI symptoms since Friday. Pt states she had chest tightness Friday-Friday, but was evaluated at [facility] ED on Friday. Pt states she had [...] administered; Lung sounds: clear bilaterally; SpO2:98% RA; [facility] consulted and sends script to pt's pharmacy for Albuterol neb solutions. Red flags discussed. Pt has no further questions. .................. .................. .................. .................. .................. .................. .................. ............... [facility] Consulted: Reese Jarvis .................. .................. .................. .................. .................. .................. .................. ............... Disposition: Fulfilled Reese Jarvis MD [address] [facility],[address] [facility], [place], [phone], BERNADINE THURMAN 10/06/2024 15:39:31 OBGyn Episode No OBEpisode recorded.
--- OUTSIDE RECORDS SUMMARY | 2024-10-26 16:14 | XMS_ITS | Encounter Summary ---
Author Organization [employer] Address [address] [facility] [address] [place] [address] Care Team Providers Care Audio Director Name Role Phone Carmen Bertrand DO Primary Care Provider [phone] Reason for Visit * Reason Onset Date Comments Nurse Triage 10/05/2024 Encounter Details Date Type Department Care Team ([facility] st Contact Info) Description 10/05/2024 Telephone [facility] [address] [place] [address] Carmen Bertrand DO [address] [place] [address] Nurse Triage Social History Tobacco Use Types Packs/Day Years [...] encounter Miscellaneous Notes * Telephone Encounter - Meagan Jacobsen RN - 10/05/2024 1:23 PM EST Images from the original note were not included. No pricing coordinator needed as this senior medical writer speaks Albanian. Call returned to Blaire Jean to triage below. Reports having Headache, Fever, Body Aches, Sore Throat, Runny Nose x 3 days. Per pt seen at [facility] ER on Friday. Per pt seen for CP. Had testing done while in ER. Pt had negative homekit forCOVID-19 last night. Reports having SOB with exertion. No wheezing. Pt speaking in clear full sentences. Pt advised of disposition, unable to come into [facility]. Agrees to [facility] for evaluation. Confirmeddemographics and allergies. Protocol Used: Cough (Adult) Protocol-Based Disposition: Go to Office or Video Visit Now Positive Triage Question: * Mild difficulty breathing (e.g., minimal/no SOB at rest, SOB with walking, pulse < 100) and still present when not coughing * All higher-acuity triage questions were negative Care Advice Discussed: * Reassurance and Education - Cough * Cough Medicines * Coughing Spells * Reasons To Call Back - Difficulty breathing - You become worse * Telephone Encounter - Bijan Roberson - 10/05/2024 12:57 PM EST Symptoms: Headache, Fever, Body Aches, Sore Throat, Runny Nose Outcome: Transfer to a nurse or provider NOW! Reason: Struggling for each breath (severe trouble breathing) The caller accepted this outcome. documented in this encounter Plan of Treatment Upcoming Encounters Date Type Department Care Team (Late st Contact Info) Description 01/24/2025 1:00 PM EDT Clinical Support [facility] [address] [place] [address] 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 RN documented as of this encounter Visit Diagnoses Not on filedocumented in this encounter Additional Health Concerns Assessment Noted Time PHQ-9 Depression Total Score: 22 024 11:00 AM EDT documented as of this encounter Care Teams Audio Director Relationship Specialty Start Date End Date Carmen Bertrand DO [address] [place] [address] PCP - General Family Medicine 08/18/18 documented as of this encounter
--- OUTSIDE RECORDS SUMMARY | 2024-10-26 16:14 | XMS_ITS | Encounter Summary ---
Author Organization [employer] Address [address] [facility] [address] [place] [address] Care Team Providers Care Boat Dock Operator Name Role Phone ElzaCarmen Primary Care Provider + [phone] Reason for Visit * Reason Comments Med Refill Encounter Details Date Type Department Care Team ([facility] Contact Info) Description 10/06/2024 Refill [facility] [address] [place], [place] [phone] Ирина Mckeon MD [address] [place] [address] Nonintractable headache, unspecified chronicity pattern, unspecified headache [...] your housing situation today? I have pravin eloisa 04/27/[address] you li [...] Description 01/24/2025 1:00 PM EDT Clinical Support [facility] MED[facility] [address] [place] [address] 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, RULA documented as of this encounter Visit Diagnoses Diagnosis Nonintractable headache, unspecified chronicity pattern, unspecified headache type documented in this encounter Additional Health Concerns Assessment Noted Time PHQ-9 Depression Total Score: 22 024 11:00 AM EDT documented as of this encounter Care Teams Boat Dock Operator Relationship Specialty Start Date End Date Carmen Bertrand DO [address] [place] [address] PCP - General Family Medicine 08/18/18 documented as of this encounter
--- OUTSIDE RECORDS SUMMARY | 2024-10-26 16:14 | XMS_ITS | Encounter Summary ---
Author Organization [employer] Address [address] [facility] 7t [place] [address] Care Team Providers Care Retail General Manager Name Role Phone Carmen Bertrand DO Primary Care Provider + [phone] Reason for Visit * Reason Comments Med Refill Encounter Details Date Type Department Care Team ([facility] st Contact Info) Description 10/11/2024 Refill [facility] [address] [place] [address] Carmen Bertrand DO [address] [place] [address] Hypertension, unspecified type Social History Tobacco Use Types Packs/Day [...] Description 01/24/2025 1:00 PM EDT Clinical Support [facility] MEDIC[facility] [address] [place] [address] 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, RULA documented as of this encounter Visit Diagnoses Diagnosis Hypertension, unspecified type documented in this encounter Additional Health Concerns Assessment Noted Time PHQ-9 Depression Total Score: 22 024 11:00 AM EDT documented as of this encounter Care Teams Retail General Manager Relationship Specialty Start Date End Date Carmen Bertrand DO [address] [place] [address] PCP - General Family Medicine 08/18/18 documented as of this encounter
--- OUTSIDE RECORDS SUMMARY | 2024-10-26 16:14 | XMS_ITS | Encounter Summary ---
Author Organization [employer] Address [address] [facility] 7t [place] [address] Care Team Providers Care Solar Photovoltaic Designer Name Role Phone ElzaCarmen Primary Care Provider + [phone] Encounter Details Date Type Department Care Team ([facility] Contact Info) Description 09/29/2024 Orders Only GENERIC [...] Description 01/24/2025 1:00 PM EDT Clinical Support [address] [address] 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 RN documented as of this [...] PM EST) Influenza A PCR NEGATIVE Negative [facility] Influenza B PCR NEGATIVE Negative [facility] Resp Syncy Virus RNA Qual PCR NEGATIVE Negative [facility] SARS COV2 PCR NEGATIVE Negative [facility] Comment:All test results mus t be [...] use by authorized laboratories.Testing performed on the BioStable GeneXpert utilizingreal-time RT-PCR.All SARS CoV2 and positive influenza A/B results arereported to [facility]. 09/29/2024 3:25 PM EST 09/29/2024 3:28 PM EST Generic External Data Provider LAB MICROBIOLOGY - GENERAL ORDERABLES Final Result Performing Organization Address [facility] Co de Phone Number [facility] [address] [place] [phone] * B Type Natriuretic Peptide (BNP) (09/29/2024 3:25 PM EST) [facility] B Type Natriuretic Peptide 45 <100 pg/mL [facility] Comment:For those patients w ho are being treated with Natrecor(nesiritide, recombinant BNP), BNP testing should beperformed at least two hours post treatment in order toensure that only endogenous levels of BNP are detected. 09/29/2024 3:25 PM EST 09/29/2024 3:28 PM EST Generic External Data Provider LAB BLOOD ORDERAB LES Final Result Performing Organization Address [facility] Co de Phone Number [facility] [address] [place] [phone] * High Sensitivity Troponin I (09/29/2024 3:25 PM EST) [facility] TROPONIN I HIGH SENSITIVITY <2.7 <3.5 - 17.0 ng/L [facility] Comment:The [employer] high sens itivity Troponin-I results should beused in conjunction with other diagnostic information suchas ECG, clinical observations and information, and patientsymptoms to aid in the diagnosis of IA. 09/29/2024 3:25 PM EST 09/29/2024 3:28 PM EST Generic External Data Provider LAB BLOOD ORDERAB LES Final Result Performing Organization Address [facility]/ZIP Co de Phone Number [facility] [address] [place] [phone] * Magnesium (09/29/2024 3:25 PM EST) [facility] Magnesium 1.9 1.6 - 2.6 mg/dL [facility] 09/29/2024 3:25 PM EST 09/29/2024 3:28 PM EST [employer] External Data Provider LAB BLOOD ORDERAB LES Final Result Performing Organization Address [facility]/ZIP Co de Phone Number [facility] [address] [place] [phone] * Basic Metabolic Panel (09/29/2024 3:25 PM EST) [facility] Sodium 140 135 - 145 mmol/L [facility] Potassium 4.6 3.3 - 5.1 mmol/L [facility] Chloride 108 96 - 108 mmol/L [facility] Carbon Dioxide 25 22 - 29 mmol/L [facility] Anion Gap 12 12 - 20 [facility] Urea Nitrogen (BUN) 12 9 - 16 mg/dL [facility] Creatinine, Serum 0.82 0.5 - 1.4 mg/dL [facility] Creatinine Clr Calc Pharmacy 139.5 [facility] Comment:Provided height and weight: 175.26 cm,164.1 kg.eGFR (calculated from the MDRD study equation) and eCrCl(calculated from the Cockcroft-Gault equation) are based ondifferent parameters and may not yield comparable results.If eCrCl result is absurd, please check patient'sheight/weight. Estimated Glomerular Filt Rate >60 [facility] Comment:Chronic Kidney Disea se: Estimated GFR < 60 mL/min/1.26r5Rebtjj Kidney Disease: Estimated GFR < 15 mL/min/1.73m2 Glucose 97 60 - 115 mg/dL [facility] Calcium 9.6 8.4 - 10.2 mg/dL [facility] 09/29/2024 3:25 PM EST 09/29/2024 3:28 PM EST us Generic External Data Provider LAB BLOOD ORDERAB LES Final Result [facility] [address] [place] [phone] * Hepatic Function Panel (09/29/2024 3:25 PM EST) Bilirubin, Total 0.5 0.0 - 1.0 mg/dL [facility] Bilirubin, Direct 0.2 0.0 - 0.5 mg/dL [facility] Aspartate Amino Transferase 22 5 - 31 U/L [facility] Alanine Aminotransferase 21 0 - 31 U/L [facility] Total Protein 7.8 6.5 - 8.0 g/dL [facility] Albumin Level 3.6 3.5 - 5.0 g/dL [facility] Alkaline Phosphatase 94 39 - 117 U/L [facility] 09/29/2024 3:25 PM EST 09/29/2024 3:28 PM EST us Generic External Data Provider LAB BLOOD ORDERAB LES Final Result [facility] [address] [place] [phone] * Prothrombin Time-INR (09/29/2024 3:25 PM EST) Pathologist [facility] Prothrombin Time 11.4 10.9 - 12.4 SEC [facility] INTERNATIONAL NORM RATIO 1.0 0.9 - 1.1 [facility] Comment:INTERNATIONAL NORMAL IZED RATIO [...] ORDERAB LES Final Result Performing Organization Address City/State/[facility] Co de Phone Number [facility] [address] [place] [address] [phone] * (ABNORMAL) CBC auto differential (09/29/2024 3:25 PM EST) [facility] White Blood Count 11.0(H) 4.8 - 10.8 X10*3/uL [facility] Red Blood Count 4.22 4.20 - 5.50 X10*6/uL [facility] Hemoglobin 13.1 12.0 - 16.0 g/dl [facility] Hematocrit 39.2 37.0 - 47.0 % [facility] Mean Corpuscular Volume 92.9 80.0 - 98.0 fL [facility] Mean Corpuscular Hemoglobin 31.0 27.0 - 33.0 pg [facility] Mean Corpuscular HGB Conc 33.4 31.0 - 35.0 g/dl [facility] Red Cell Distribution Width 14.3 11.0 - 16.0 % [facility] Platelet Count 284 160 - 400 X10*3/uL [facility] Mean Platelet Volume 9.6 9.4 - 12.3 fL [facility] Neutrophils Percent Auto 54.4 45 - 73 % [facility] Imm Gran Pct Auto 0.6(H) 0.0 - 0.4 % [facility] Lymphocytes Percent Auto 32.6 20 - 40 % [facility] Monocytes Percent Auto 9.2 2 - 11 % [facility] Eosinophils Percent Auto 2.7 0 - 4 % [facility] Basophils Percent Auto 0.5 0 - 2 % [facility] NRBC Pct Auto 0.0 0.0 - 0.2 /100WBC [facility] Neutrophils Absolute Auto 6.0 2.0 - 8.3 x10*3/uL [facility] Imm Gran Abs Auto 0.07(H) 0.00 - 0.03 X10*3/uL [facility] Lymphocytes Absolute Auto 3.6 1.2 - 4.9 X10*3/uL [facility] Monocytes Absolute Auto 1.0 0.1 - 1.2 X10*3/uL [facility] Eosinophils Absolute Auto 0.3 0.0 - 0.4 X10*3/uL [facility] Basophils Absolute Auto 0.1 0.0 - 0.2 X10*3/uL [facility] NRBC Abs Auto 0.000 0.0 - 0.012 X10*3/uL [facility] 09/29/2024 3:25 PM EST 09/29/2024 3:28 PM EST us Generic External Data Provider LAB BLOOD ORDERAB LES Final Result [facility] [address] [place] [phone] documented in this encounter Visit Diagnoses Not on filedocumented in this encounter Additional Health Concerns Assessment Noted Time PHQ-9 Depression Total Score: 22 024 11:00 AM EDT documented as of this encounter Care Teams Solar Photovoltaic Designer Relationship Specialty Start Date End Date Carmen Bertrand DO [address] [place] [phone] PCP - General Family Medicine 08/18/18 documented as of this encounter
--- OUTSIDE RECORDS SUMMARY | 2024-10-26 16:14 | XMS_ITS | Encounter Summary ---
Author Organization [employer] [facility] Address [address] [place] [address] [address] [place] [address] Care Team Providers Care Anode Worker Name Role Phone Carmen Bertrand DO Primary Care Provider [phone] Reason for Visit * Reason Comments Med Refill Encounter Details Date Type Department Care Team (Late st Contact Info) Description 07/29/2022 Refill [facility] [address] [place] [phone] Carmen Bertrand DO [address] [place] [address] Social History Tobacco Use Types Packs/Day Years [...] Description 01/24/2025 1:00 PM EDT Clinical Support [facility] [address] [place] [phone] 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 RN documented as of this encounter Visit Diagnoses Not on filedocumented in this encounter Care Teams Anode Worker Relationship Specialty Start Date End Date Carmen Bertrand DO [address] [place] [phone] PCP - General Family Medicine 08/18/18 documented as of this encounter
--- OUTSIDE RECORDS SUMMARY | 2024-10-26 16:14 | XMS_ITS | Encounter Summary ---
Author Organization [employer] Address [address] [facility] [address] [place] [address] Care Team Providers Care Director Vaccine Name Role Phone Carmen Bertrand DO Primary Care Provider [phone] Reason for Visit * Reason Comments Med Refill Encounter Details Date Type Department Care Team ([facility] st Contact Info) Description 11/20/2022 Refill [facility] [address] [place] [address] Carmen Bertrand DO [address] [place] [address] Morbid obesity with body mass index (BMI) [...] 01/24/2025 1:00 PM EDT Clinical Support [facility] [address] [place] [address] 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, RN documented as of this encounter Visit Diagnoses Diagnosis Morbid obesity with body mass index (BMI) of 50.0 to 59.9 in adult (CMS/HCC) documented in this encounter Additional Health Concerns Assessment Noted Time PHQ-9 Depression Total Score: 16 023 12:22 PM EST documented as of this encounter Care Teams Director Vaccine Relationship Specialty Start Date End Date Carmen Bertrand DO [address] [place] [address] PCP - General Family Medicine 08/18/18 documented as of this encounter
--- OUTSIDE RECORDS SUMMARY | 2024-10-26 16:14 | XMS_ITS | Encounter Summary ---
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 States she has been taking as prescribed, last dose taken was this morning. Continuesto smoke 12 cigarettes daily and has smoked for > 30 years. Denies ETOH use, Illicit drug use and marijuana use. Currently rates her pain a 9 and states medication is 90% effective at alleviating her pain. Current pain sites are her lower back, hips, knees and her hands/wrists. Pt states she will be receiving injections to her hips soon. Pt cancelled VACUUM TRUCK DRIVER appt 09/23/24. 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 Pt currently prescribed Tramadol 50mg Q8hr PRN. LEGAL RECRUITER verified today. Rx last filled on 10/14/24. Pill count performed. Patient has 79 Tramadol remaining, anticipated she would have 62. Medication is not over used by patient. UTOX completed. Negative for all substances: AMP, BAR, BUP, BZO, YESSY, FTY, MDMA, MET, MOP, MTD, OXY, PCP, TCA, THC. UTOX as expected. Last PCP visit was 09/27/24. A: VACUUM TRUCK DRIVER Contract Revisit: Chronic Opioid use related to pain. P: Pt to continue taking medication only as prescribed; Next VACUUM TRUCK DRIVER Renewal appointment scheduled for 01/24/25 @ 1pm, F/U sooner PRN. Appointment reminder given. Pt verbalized understanding and agreed to plan. documented in this encounter Plan of Treatment Upcoming Encounters Date Type Department Care Team (Late st Contact Info) Description 01/24/2025 1:00 PM EDT Clinical Support [facility] [address] [place] [address] 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, RN documented as of this encounter Procedures Procedure Name Priority Date/Time Associated Diagnosis Comments POCT ANALISA-14 URINE DRUG SCREEN Routine 10/21/2024 2:02 PM EST Chronic bilateral low back pain without sciatica documented in this encounter Results * POCT ANALISA-14 Urine Drug Screen (10/21/2024 2:02 PM EST) Urine Urine specimen obtained by clean catch procedure / Unknown 10/21/2024 2:02 PM EST Narrative 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 RN - 10/21/2024 2:02 PM EST UTOX cup Lot#[id number] Exp. 04/06/26 Internal Pass Control UTOX Negative for all substances. Carmen Bertrand DO POINT OF CARE TEST ENTER/LANEY T ORDERABLES Final Result documented in this encounter Visit Diagnoses Diagnosis Chronic bilateral low back pain without sciatica- Primary documented in this encounter Additional Health Concerns Assessment Noted Time PHQ-9 Depression Total Score: 22 024 11:00 AM EDT documented as of this encounter Care Teams French Binding Folder Relationship Specialty Start Date End Date Carmen Bertrand DO [address] [place] [phone] PCP - General Family Medicine 08/18/18 documented as of this encounter
--- OUTSIDE RECORDS SUMMARY | 2024-10-26 16:14 | XMS_ITS | Encounter Summary ---
Author Organization [employer] Address [address] [facility] 7[address] [place] [address] Care Team Providers Care Maintenance Mgr Name Role Phone Carmen Bertrand DO Primary Care Provider [phone] Reason for Visit * Reason Onset Date Comments Med Refill 10/01/2024 Encounter Details Date Type Department Care Team ([facility] st Contact Info) Description 10/01/2024 Refill [facility] [address] [place] [address] Carmen Bertrand DO [address] [place] [address] Social History Tobacco Use Types Packs/Day Years [...] Miscellaneous Notes * Telephone Encounter - Carmen Perez LPN - 10/01/2024 2:32 PM EST Last seen 09/27/24. * Telephone Encounter - Haydee Whitney - 10/01/2024 2:26 PM EST TC from pt requesting medication refill. Medications needing refill : atorvastatin (Lipitor) 80 MG tablet To be sent to: [facility] documented in this encounter Plan of Treatment Upcoming Encounters Date Type Department Care Team (Late st Contact Info) Description 01/24/2025 1:00 PM EDT Clinical Support [facility] [address] [place] [address] 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 RN documented as of this encounter Visit Diagnoses Not on filedocumented in this encounter Additional Health Concerns Assessment Noted Time PHQ-9 Depression Total Score: 22 024 11:00 AM EDT documented as of this encounter Care Teams Maintenance Mgr Relationship Specialty Start Date End Date Carmen Bertrand DO [address] [place] [address] PCP - General Family Medicine 08/18/18 documented as of this encounter
== END 2024-10-26 13:58 | disposition home or self-care (01) ==
LOC: HO.HCS 13:24
PROVIDERS: PCP Family Medicine; Visit Provider Internal Medicine Cardiovascular Disease
DX: I25.10 Atherosclerotic heart disease of native coronary artery without angina pectoris (principal); I10 Essential (primary) hypertension
CPT/HCPCS: 93010; 99214; G2211

== ENCOUNTER → 2024-10-26 13:24 | Outpatient (BNVA) | payer OTHER, SELFPAY ==
[2022-10-22 13:00] VITALS: BP 128/72; BP 148/88; BMI 63.7
[2023-01-30 14:13] VITALS: BP 140/60
== END ==
PROVIDERS: PCP Family Medicine; Visit Provider Internal Medicine Cardiovascular Disease
DX: I25.10 Atherosclerotic heart disease of native coronary artery without angina pectoris (principal); I10 Essential (primary) hypertension; R94.31 Abnormal electrocardiogram [ECG] [EKG]; R00.0 Tachycardia, unspecified; I44.5 Left posterior fascicular block
CPT/HCPCS: 93005; 99212

== ENCOUNTER 2024-11-07 15:42 | Observation (INO) | payer OTHER, SELFPAY ==
[2022-10-22 13:00] VITALS: BP 128/72; BP 148/88; BMI 63.7
[2023-01-30 14:13] VITALS: BP 140/60
--- NOTE | ~2024-11-07 | CT_ITS ---
CLINICAL HISTORY: left flank pain CT abdomen and pelvis without contrast Comparison: DX - XR HIP RT MIN 2V - 09/17/24 11:03 EST US/SR - US ABDOMEN COMPLETE - 05/07/24 09:[address]/HI/SR - CT ABDOMEN PELVIS WO IV CON - 02/12/24 20:37 EDT Findings: Small hiatal hernia. Liver, gallbladder, pancreas, spleen, and adrenal glands are within normal limits. There is a small accessory splenule. Mild left hydronephrosis with 4 mm calculus in the left ureter at the level of L5. No hydronephrosis on the right. There are multiple additional bilateral nonobstructing renal calculi. No bowel obstruction, pneumoperitoneum, or pneumatosis. Aortic atherosclerosis. No aneurysm. Hysterectomy. The bones are intact. Degenerative changes of the spine. IMPRESSION: 4 mm left ureteral calculus at the level of L5 with mild left hydronephrosis. Multiple additional nonobstructing bilateral renal calculi. This document has been electronically signed by: Mahad Pearl MD on 11/07/2024 19:25:05
--- NOTE | ~2024-11-07 | NM_ITS ---
Lexiscan Myocardial perfusion study Indication: Elevated troponin and chest pain with prior CAD to evaluate for myocardial ischemia Technique: The patient was brought in for a Lexiscan perfusion study on 11/09/2024 and was injected 0.4 mg of Lexiscan intravenously. Within a minute of this injection 40 mCi of sestamibi was given intravenously. Images were obtained using the SPECT gamma camera interlaced with the gating device. Images were obtained in supine position. Resting perfusion study was performed on November 08 2024. Patient was administered 40 mCi of sestamibi intravenously at rest. Images were then obtained in supine position. Images obtained without without CT attenuation. Total DLP 174 mGy-cm Images were processed with the software and compared side to side in short axis, horizontal long axis and vertical long axis views. Findings: The stress perfusion study showed nonattenuated images show mildly reduced uptake in the anterior as well as the basal anterolateral wall of the LV myocardium. Attenuated corrected images show mildly reduced uptake in the distal anterior and apical wall of the myocardium.. The gated study shows normal LV systolic function with calculated LVEF of 56%. LV cavity is mildly dilated in size. The gated study shows normal systolic wall thickening and contraction of segments. Resting study shows attenuated corrected images show improved uptake in the distal anterior and apical wall of the LV myocardium.. Gating at rest reveals normal systolic wall motion with ejection fraction at 68%. The findings are consistent with small sized mild intensity reversible defect of the distal anterior and apical wall of the myocardium suggestive of ischemia. NM/NM andrew perf SPECT rest & str Impression: 1. Myocardial perfusion imaging study shows mild intensity ischemia mid to distal LAD territory 2. Gated LVEF is 56% with stress and 68% with rest 3. Transient ischemic dilatation present Nondiagnostic changes on EKG. Electronically signed by: Mars Hutchinson MD 11/09/2024 12:31 PM EDT
--- NOTE | ~2024-11-07 | XR_ITS ---
CLINICAL HISTORY: Chest pain 1 view chest x-ray Comparison: CR/MT/SR - XR CHEST 1V - 11/11/23 18:01 EDT Findings: No consolidation or effusion. Heart size is normal. No acute fracture. IMPRESSION: 1. No acute findings. This document has been electronically signed by: Mahad Pearl MD on 11/07/2024 18:43:58
[2024-11-07 16:11] VITALS: BP 169/51; PULSE 93; RESP 18; TEMP 36.6; O2SAT 95; BMI 58.8
--- NOTE | 2024-11-07 16:17 | ED.ABDPAIN ---
HPI - Abdominal Pain General Chief Complaint: Abdominal Pain Stated Complaint: ?Kidney stones Time Seen by Provider: 11/07/24 17:38 History of Present Illness ED Provider: Parish SYKES narrative: The patient is a 49-year-old woman with a history of kidney stones. She also has a history of coronary disease and prior NSTEMIs. The patient says that she developed left flank pain this morning at around 05:00. Who was quite uncomfortable. At some point after that she also developed chest discomfort that was a different kind of pain. The chest discomfort lasted for about an hour. The pain in her left flank was persistent and ultimately she came to the emergency room by private vehicle. She says the pain radiates from her left flank to her left lower quadrant. She has had no fever. She has had nausea and she has vomited 4 times. Related Data Home Medications ?Medication ?Instructions ?Recorded ?Confirmed baclofen 10 mg tablet 10 mg PO TID PRN muscle spasm 11/03/20 06/28/24 albuterol sulfate 90 mcg/actuation 2 puff PO Q4-6H PRN Wheezing 12/01/20 06/28/24 aerosol inhaler (Ventolin HFA) atorvastatin 80 mg tablet (Lipitor) 80 mg PO BEDTIME 12/01/20 06/28/24 fluticasone propionate 50 2 spray intranasal DAILY 12/01/20 06/28/24 mcg/actuation nasal spray,suspension blood pressure test kit-large #1 ea 12/19/20 06/28/24 topiramate 50 mg tablet 50 mg PO BID 12/19/20 06/28/24 cholecalciferol (vitamin D3) 50 50 mcg PO DAILY 03/13/22 06/28/24 mcg (2,000 unit) capsule lisinopril 30 mg tablet 30 mg PO DAILY 07/01/22 06/28/24 metformin 500 mg tablet,extended 500 mg PO QPM 07/01/22 06/28/24 release 24 hr metoprolol succinate 50 mg 50 mg PO DAILY 07/01/22 06/28/24 tablet,extended release 24 hr tramadol 50 mg tablet 50 mg PO Q8H PRN severe pain 10/24/22 06/28/24 capsaicin 0.025 % topical cream 1 appl topical BID PRN mild pain 10/25/22 06/28/24 metronidazole 0.75 % topical gel 1 appl topical DAILY PRN Rash 10/25/22 06/28/24 albuterol sulfate 2.5 mg/3 mL 2.5 mg inhalation Q4-6H PRN 11/15/22 06/28/24 (0.083 %) solution for nebulization Wheezing aspirin 81 mg chewable tablet 1 tab PO DAILY 11/13/23 06/28/24 fluticasone propionate 110 1 puff inhalation BID 11/13/23 06/28/24 mcg/actuation HFA aerosol inhaler famotidine 40 mg tablet 40 mg PO BEDTIME PRN heartburn 02/13/24 06/28/24 tirzepatide (weight loss) 5 mg/0.5 5 mg subcut QWEEK 10/26/24 mL subcutaneous pen injector (Zepbound) Previous Rx's ?Medication ?Instructions ?Recorded bisacodyl 5 mg tablet,delayed 20 mg (4 x 5 mg) PO ONCE PRN 12/02/23 release (Dulcolax (bisacodyl)) colonoscopy prep 1 day #4 tabs polyethylene glycol 3350 17 238 g PO ONCE PRN laxative effect 12/02/23 gram/dose oral powder (Miralax) 1 day #238 grams tamsulosin 0.4 mg capsule (Flomax) 0.4 mg PO BEDTIME #7 caps 02/07/24 isosorbide mononitrate 60 mg 60 mg PO DAILY #30 tabs 02/12/24 tablet,extended release 24 hr phenazopyridine 200 mg tablet 200 mg PO BID #10 tabs 03/02/24 (Pyridium) pyridoxine (vitamin B6) 100 mg 100 mg PO DAILY 90 days #90 tabs 03/25/24 tablet omeprazole 20 mg capsule,delayed 40 mg (2 x 20 mg) PO DAILY #60 caps 05/13/24 release allopurinol 100 mg tablet 100 mg PO DAILY 90 days #90 tabs 06/14/24 ezetimibe 10 mg tablet 10 mg PO DAILY #30 tabs 07/22/24 hydrochlorothiazide 12.5 mg tablet 12.5 mg PO DAILY #30 tabs 07/26/24 Allergies Allergy/AdvReac Type Severity Reaction Status Date / Time penicillin G [PENICILLIN G] Allergy Severe DIFFICULTY Verified 11/07/24 16:14 BREATHING semaglutide [From Ozempic] AdvReac Severe Stomach Verified 11/07/24 16:14 Upset Review of Systems Review of Systems Yes all other systems are reviewed and are negative [facility] Past Medical History Medical History Morbid obesity Hidradenitis suppurativa CAD (coronary artery disease) Subsequent non-ST elevation myocardial infarction (NSTEMI) within 4 weeks of initial infarction Non-ST elevation [place] (NSTEMI) YAMILETH on CPAP Hyperlipidemia PTSD (post-traumatic stress disorder) Fatty liver Smoker Depression Obesity Leukocytosis Frequent UTI Asthma Mass of throat Chronic pain Kidney stone Migraine HTN (hypertension) Surgical History H/O excision of mass (06/28/24) Hx of cystoscopy Stented coronary artery History of heart artery stent History of lumpectomy of left breast (10/22/21) History of lithotripsy History of endometrial ablation Hx of colonoscopy History of breast lump/mass excision History of tonsillectomy H/O: hysterectomy Family History Family History Father Hypertension Mother Hypertension Osteoporosis Hx of bilateral cataract extraction Paternal Grandmother Diabetes Sister Asthma Maternal Uncle Throat cancer Maternal Aunt Ovarian cancer Breast cancer Social History Social History Household Members: Children Housing: Apartment Are you a primary career technical counselor to a significant other at home: No Do you presently have visiting nurse or other home services: Yes (CHANNEL SUPERVISOR-daughter) Alcohol intake: never Comment: pt refusing alarms Patient Tobacco Use Status: Current everyday Tobacco user Tobacco use type: Cigarette Cigarette Packs Per Day: 0.5 Cigarettes Per Day: 10 Years Smoked: 30 Second Hand Smoke Exposure: No Advance Directives: Yes Advance Directives on File: Yes Advance Directives Date on File: 10/28/22 service: No Current occupational status: unemployed and retired Physical Exam ED Vital Signs: Vital Signs - 24 hr 11/07/24 16:11 11/07/24 17:41 Temperature 97.9 F Pulse Rate 93 63 Respiratory Rate 18 16 Blood Pressure 169/51 H 137/72 Pulse Oximetry 95 98 Oxygen Delivery Method Room Air Room Air BMI result Body Mass Index 58.8 Const Other: The patient is an obese 49-year-old woman who was awake and alert, pleasant and cooperative. She looks somewhat uncomfortable. Orientation/consciousness: patient oriented x3 HENMT Other: Face is symmetrical. Mucous membranes moist. Eyes General: appearance normal, both eyes and all related structures Neck Neck: Yes normal visual inspection, Yes full ROM and Yes no JVD Resp Effort & Inspection: normal respiratory effort Auscultation: clear to auscultation bilaterally Cardio Rate: regular rate Rhythm: regular rhythm Heart sounds: S1 normal heart sound present and S2 normal heart sound present GI Other: Abdomen is soft and nontender Back/Spine/Pelvis Other: Left-sided CVA percussion tenderness Skin Other: Skin is dry and unremarkable Neuro General: patient oriented x3, tone normal, moves all extremities, no focal motor deficits and CN's II-XI intact bilaterally Extrem Other: No calf swelling or tenderness, no pitting edema, no asymmetry Course Course Course Narrative: This is a Rapid Medical Examination (RME) performed by Mckay Barr PA-C in triage. Full HPI, ROS, assessment and treatment plan per primary provider in the Main ED. Hx: 49 yo female hx of hydradenitis suppurativa, morbid obesity, HTN, HLD, CAD, NSTEMI s/p cardiac cath, DM, gastroparesis, renal stones, hydronephrosis, here for eval of left upper abdominal pain radiating to back since this morning. intermittent. no urinary sx. assoc nausea and vomiting x4. PE/vitals: hypertensive, appears uncomfortable Plan: labs, UA, ekg. zofran + tylenol given at 1623 in triage. states she cannot take NSAIDS. Medical Decision Making Medical Decision Making [facility] Narrative: The patient is a 49-year-old female with a history of kidney stones. She also has a history of coronary disease and she has an LAD stent. This was placed in 2021. Today she developed symptoms suggestive of left-sided ureteral colic at around 05:00. At some point after that she had about an hour's worth of chest discomfort that resolved on its own. She finally presented to the hospital because of the left ureteral colic. She has a CT scan that shows a 4 mm left-sided mid ureteral stone with hydronephrosis. She has an unchanged EKG. She had an initial troponin that was elevated at 101. She had a 2nd troponin after 3 hours that had come down to 85. I suspect she had a troponin leak secondary to the stress of her ureteral colic. I discussed the case with the admitting hospitalist and the entry level sales consultant cloth shrinking machine operator helper. We agreed that the troponin leak is likely secondary to the stress of the ureteral colic. We will admit the patient for observation and management of her ureteral colic pain. No specific acute coronary syndrome treatment will be instituted at this point. Lab Data 11/07/24 16:29 11/07/24 16:29 Labs: Lab Results 11/07/24 11/07/24 Range/Units 16:29 19:34 WBC 11.1 H (4.8-10.8) X10*3/uL RBC 4.18 L (4.20-5.50) X10*6/uL Hgb 12.9 (12.0-16.0) g/dl Hct 38.3 (37.0-47.0) % MCV 91.6 (80.0-98.0) fL MCH 30.9 (27.0-33.0) pg MCHC 33.7 (31.0-35.0) g/dl RDW 14.2 (11.0-16.0) % Plt Count 326 (160-400) X10*3/uL MPV 9.2 L (9.4-12.3) fL Immature Gran % (Auto) 0.5 H (0.0-0.4) % Neut % (Auto) 50.5 (45-73) % Lymph % (Auto) 36.9 (20-40) % [place] % (Auto) 7.9 (2-11) % Eos % (Auto) 3.7 (0-4) % Baso % (Auto) 0.5 (0-2) % Lymph # (Auto) 4.1 (1.2-4.9) X10*3/uL [place] # (Auto) 0.9 (0.1-1.2) X10*3/uL Eos # (Auto) 0.4 (0.0-0.4) X10*3/uL Baso # (Auto) 0.1 (0.0-0.2) X10*3/uL Abs Immat Gran (auto) 0.05 H (0.00-0.03) X10*3/uL Absolute Neuts (auto) 5.6 (2.0-8.3) x10*3/uL Absolute Nucleated RBC 0.000 (0.0-0.012) X10*3/uL Nucleated RBC % (auto) 0.0 (0.0-0.2) /100WBC APTT 36.9 H (26.0-36.8) SEC Sodium 141 (135-145) mmol/L Potassium 3.9 (3.3-5.1) mmol/L Chloride 110 H (96-108) mmol/L Carbon Dioxide 25 (22-29) mmol/L Anion Gap 10 L (12-20) BUN 12 (9-16) mg/dL Creatinine 0.96 (0.5-1.4) mg/dL Estim Creat Clear Calc 115.0 Estimated GFR > 60 Random Glucose 97 (60-115) mg/dL Calcium 9.2 (8.4-10.2) mg/dL Magnesium 1.7 (1.6-2.6) mg/dL Total Bilirubin 0.2 (0.0-1.0) mg/dL AST 23 (5-31) U/L ALT 13 (0-31) U/L Alkaline Phosphatase 98 (39-117) U/L Troponin I High Sens 101.3 H* D 85.7 H* (<3.5-17.0) ng/L Total Protein 7.6 (6.5-8.0) g/dL Albumin 3.4 L (3.5-5.0) g/dL Lipase 11 (8-78) U/L Independent Interpretation I performed an independent interpretation of an: EKG Interpretation: EKG at 16:36 shows normal sinus rhythm at 65 beats per minute. No definite acute ischemic changes, no significant change from previous EKGs Medications Administered Generic Name Dose Route Start Last Admin Trade Name Freq PRN Reason Stop Dose Admin Enoxaparin Sodium 40 mg 11/07/24 22:00 11/07/24 21:43 Enoxaparin Sodium 40 Mg/0.4 Ml Syringe SUBCUT 40 mg Q24H ANDREW Administration Discontinued Medications Generic Name Dose Route Start Last Admin Trade Name Freq PRN Reason Stop Dose Admin Acetaminophen 975 mg 11/07/24 16:21 03/23/25 16:23 Acetaminophen 325 Mg Tablet PO 03/23/25 16:22 975 mg ONCE ONE Administration Hydromorphone HCl 1 mg 11/07/24 17:55 11/07/24 18:20 Hydromorphone Hcl 1 Mg/Ml Syringe IVPUSH 11/07/24 17:56 1 mg ONCE ONE Administration Protocol Ondansetron HCl 4 mg 11/07/24 16:17 11/07/24 16:21 Ondansetron Odt 4 Mg Tab.Rapdis TRANSLINGU 11/07/24 16:18 4 mg ONCE ONE Administration Tamsulosin HCl 0.4 mg 11/07/24 21:23 11/07/24 21:43 Tamsulosin Hcl 0.4 Mg Capsule PO 11/07/24 21:24 0.4 mg ONCE ONE Administration Discharge Plan Discharge Clinical Impression: Ureter colic, Left ureteral calculus, Elevated troponin Patient Disposition: Admitted As Inpatient
--- NOTE | 2024-11-07 16:19 | ECG_ITS ---
Test Reason : abdominal pain Blood Pressure : */* mmHG Vent. Rate : 65 BPM Atrial Rate : 65 BPM P-R Int : 198 ms QRS Dur : 78 ms QT Int : 396 ms P-R-T Axes : 61 45 46 degrees QTcB Int : 411 ms Normal sinus rhythm Septal infarct , age undetermined Abnormal ECG When compared with ECG of 29-Sep-2024 14:20, No significant change was found Referred By: Isabella Barr Electronically Signed By: MARLENE BAUER MD
[2024-11-07] MEDS: Ondansetron ODT 4 MG TAB.RAPDIS TRANSLINGU (16:21)
[2024-11-07] MEDS: Acetaminophen 325 MG TABLET 975 MG PO (16:23)
[2024-11-07 16:34] LABS: MANUAL DIFF FLAG NO
[2024-11-07 16:35] LABS: Basophils Absolute Auto 0.1 X10*3/uL (0.0-0.2); Basophils Percent Auto 0.5 % (0-2); Eosinophils Absolute Auto 0.4 X10*3/uL (0.0-0.4); Eosinophils Percent Auto 3.7 % (0-4); Hematocrit 38.3 % (37.0-47.0); Hemoglobin 12.9 g/dl (12.0-16.0); Imm Gran Abs Auto 0.05 X10*3/uL (0.00-0.03); Imm Gran Pct Auto 0.5 % (0.0-0.4); Lymphocytes Absolute Auto 4.1 X10*3/uL (1.2-4.9); Lymphocytes Percent Auto 36.9 % (20-40); Mean Corpuscular HGB Conc 33.7 g/dl (31.0-35.0); Mean Corpuscular Hemoglobin 30.9 pg (27.0-33.0); Mean Corpuscular Volume 91.6 fL (80.0-98.0); Mean Platelet Volume 9.2 fL (9.4-12.3); Monocytes Absolute Auto 0.9 X10*3/uL (0.1-1.2); Monocytes Percent Auto 7.9 % (2-11); Neutrophils Absolute Auto 5.6 x10*3/uL (2.0-8.3); Neutrophils Percent Auto 50.5 % (45-73); Platelet Count 326 X10*3/uL (160-400); Red Blood Count 4.18 X10*6/uL (4.20-5.50); Red Cell Distribution Width 14.2 % (11.0-16.0); White Blood Count 11.1 X10*3/uL (4.8-10.8)
[2024-11-07 16:51] LABS: Alanine Aminotransferase 13 U/L (0-31); Albumin Level 3.4 g/dL (3.5-5.0); Alkaline Phosphatase 98 U/L (39-117); Anion Gap 10 (12-20); Aspartate Amino Transferase 23 U/L (5-31); Bilirubin Total 0.2 mg/dL (0.0-1.0); Blood Urea Nitrogen 12 mg/dL (9-16); Calcium 9.2 mg/dL (8.4-10.2); Carbon Dioxide 25 mmol/L (22-29); Chloride 110 mmol/L (96-108); Estimated Glomerular Filt Rate > 60; Glucose Random 97 mg/dL (60-115); Lipase 11 U/L (8-78); Magnesium 1.7 mg/dL (1.6-2.6); Potassium 3.9 mmol/L (3.3-5.1); Sodium 141 mmol/L (135-145); Total Protein 7.6 g/dL (6.5-8.0)
[2024-11-07 17:01] LABS: Troponin-I High Sensitivity 101.3 ng/L (<3.5-17.0)
[2024-11-07 17:41] VITALS: BP 137/72; PULSE 63; RESP 16; O2SAT 98
[2024-11-07] MEDS: HYDROmorphone HCl 1 MG/ML SYRINGE IVPUSH (18:20)
--- NOTE | 2024-11-07 18:21 | PC.NURSE ---
pt medicated with pain meds per request of SODA CLERK
[2024-11-07 19:49] LABS: Partial Thromboplastin Time 36.9 SEC (26.0-36.8)
[2024-11-07 20:03] LABS: Troponin-I High Sensitivity 85.7 ng/L (<3.5-17.0)
[2024-11-07 21:34] VITALS: BP 143/73; PULSE 52; RESP 16; TEMP 37.1; O2SAT 98
--- NOTE | 2024-11-07 21:38 | P.HPHOSP_ITS ---
History of Present Illness Date of Service: 11/07/24 Attending physician on admission: Savannah Saxena Chief Complaint: chest pain, LLQ pain Pt is a 49 yo f with a pmhx significant for CAD/NSTEMI with KAMARI in LAD 06/08 and possible NSTEMI 11/07 with normal cardiac cath, YAMILETH on CPAP, HLD, morbid obesity, HLD, PTSD, fatty liver disease, mild persistent asthma, kidney stones, migraines, and HTN, who presented to the ED with LLQ/L flank pain starting around 5AM. The pain has been persistent and she also mentions an episode of chest pressue that lasted 1 hour. felt similar to previous cardiac episodes. nausea and vomiting x4 episodes throughtout the day. no urinary frequency, urgency, hematuria, or dysuria but has had the sensation thtat she needs to urinate constantly. no fever, diarrhea, hematochezia, or hematemesis. She is not currently in any pain. Review of Systems 2 Constitutional: Constitutional: Denies chills, Denies fatigue, Denies fever(s) and Denies headache(s) Eyes: Eyes: Denies change in vision and Denies photophobia ENT: Denies headache(s), Denies nasal congestion, Denies nasal discharge and Denies sore throat Cardiovascular: Cardiovascular: Reports chest pain (Pressure earlier today), Denies rapid heart rate, Denies leg edema, Denies lightheadedness and Denies dyspnea Respiratory: Respiratory: Denies chest congestion, Denies cough, Denies dyspnea and Denies wheezing Gastrointestinal: Gastrointestinal: Denies coffee ground emesis, Denies diarrhea, Reports nausea, Reports vomiting and Denies hematemesis Genitourinary: Genitourinary: Denies hematuria, Denies difficulty voiding and Denies dysuria Musculoskeletal: Musculoskeletal: Denies myalgias Integumentary/Breasts: Skin/Breast: Denies rash Neurologic: Denies confusion and Denies headache(s) Psychiatric: Psychiatric: Denies confusion Endocrine: Endocrine: Denies fatigue Hematologic/Lymphatic: Hematologic/Lymphatic: Denies easy bleeding and Denies easy bruising Allergic/Immunologic: Allergic/Immunologic: Denies wheezing [facility] Medical History Morbid obesity Hidradenitis suppurativa CAD (coronary artery disease) Subsequent non-ST elevation myocardial infarction (NSTEMI) within 4 weeks of initial infarction Non-ST elevation [place] (NSTEMI) YAMILETH on CPAP Hyperlipidemia PTSD (post-traumatic stress disorder) Fatty liver Smoker Depression Obesity Leukocytosis Frequent UTI Asthma Mass of throat Chronic pain Kidney stone Migraine HTN (hypertension) Functional capacity: independent ambulation Family History Father Hypertension Mother Hypertension Osteoporosis Hx of bilateral cataract extraction Paternal Grandmother Diabetes Sister Asthma Maternal Uncle Throat cancer Maternal Aunt Ovarian cancer Breast cancer Surgical History H/O excision of mass (06/28/24) Hx of cystoscopy Stented coronary artery History of heart artery stent History of lumpectomy of left breast (10/22/21) History of lithotripsy History of endometrial ablation Hx of colonoscopy History of breast lump/mass excision History of tonsillectomy H/O: hysterectomy Social History Household Members: Children Housing: Apartment Are you a primary dog day care attendant to a significant other at home: No Do you presently have visiting nurse or other home services: Yes (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) Alcohol intake: never Comment: pt refusing alarms Patient Tobacco Use Status: Current everyday Tobacco user Tobacco use type: Cigarette Cigarette Packs Per Day: 0.5 Cigarettes Per Day: 10 Years Smoked: 30 Smoked in Last 30 Days: Yes Second Hand Smoke Exposure: No Advance Directives: Yes Advance Directives on File: Yes Advance Directives Date on File: 10/28/22 Patient : No service: No Current occupational status: unemployed and retired Narrative: Smokes a few cigarettes daily, no alcohol or drug use Meds Allergies Allergy/AdvReac Type Severity Reaction Status Date / Time penicillin G [PENICILLIN G] Allergy Severe DIFFICULTY Verified 11/07/24 16:14 BREATHING semaglutide [From Ozempic] AdvReac Severe Stomach Verified 11/07/24 16:14 Upset Active Medications: Current Medications Acetaminophen (Acetaminophen 325 Mg Tablet) 650 mg PO Q6H PRN PRN Reason: Pain, Mild 1-3,fever,headache Calcium Carbonate (Calcium Carbonate 750 Mg Tab.Chew) 750 mg PO Q4H PRN PRN Reason: Heartburn Enoxaparin Sodium (Enoxaparin Sodium 40 Mg/0.4 Ml Syringe) 40 mg SUBCUT Q24H ANDREW Magnesium Hydroxide (Milk Of Magnesia 30 Ml Oral.Susp) 30 ml PO DAILY PRN PRN Reason: Constipation Melatonin (Melatonin 3 Mg Tablet) 6 mg PO BEDTIME PRN PRN Reason: Insomnia Ondansetron HCl (Ondansetron Hcl 4 Mg/2 Ml Vial) 4 mg IVPUSH Q8H PRN PRN Reason: Nausea and Vomiting Sodium Chloride (0.9 % Sodium Chloride Flush 3 Ml Syringe) 3 ml IVFLUSH QSHIFT ANDREW Tramadol HCl (Tramadol Hcl 50 Mg Tablet) 50 mg PO Q6H PRN PRN Reason: Pain, Severe (Pain Scale 7-10) Home Medications ?Medication ?Instructions ?Recorded ?Confirmed ?Last Taken ?Type baclofen 10 mg tablet 10 mg PO TID PRN muscle spasm 11/03/20 06/28/24 Unknown History albuterol sulfate 90 mcg/actuation 2 puff PO Q4-6H PRN Wheezing 12/01/20 06/28/24 06/28/24 History aerosol inhaler (Ventolin HFA) atorvastatin 80 mg tablet (Lipitor) 80 mg PO BEDTIME 12/01/20 06/28/24 05/20/22 History fluticasone propionate 50 2 spray intranasal DAILY 12/01/20 06/28/24 05/21/22 History mcg/actuation nasal spray,suspension blood pressure test kit-large #1 ea 12/19/20 06/28/24 Unknown History topiramate 50 mg tablet 50 mg PO BID 12/19/20 06/28/24 06/28/24 History cholecalciferol (vitamin D3) 50 50 mcg PO DAILY 03/13/22 06/28/24 05/21/22 History mcg (2,000 unit) capsule lisinopril 30 mg tablet 30 mg PO DAILY 07/01/22 06/28/24 Unknown History metformin 500 mg tablet,extended 500 mg PO QPM 07/01/22 06/28/24 Unknown History release 24 hr metoprolol succinate 50 mg 50 mg PO DAILY 07/01/22 06/28/24 06/28/24 History tablet,extended release 24 hr tramadol 50 mg tablet 50 mg PO Q8H PRN severe pain 10/24/22 06/28/24 Unknown History capsaicin 0.025 % topical cream 1 appl topical BID PRN mild pain 10/25/22 06/28/24 Unknown History metronidazole 0.75 % topical gel 1 appl topical DAILY PRN Rash 10/25/22 06/28/24 Unknown History albuterol sulfate 2.5 mg/3 mL 2.5 mg inhalation Q4-6H PRN 11/15/22 06/28/24 Unknown History (0.083 %) solution for nebulization Wheezing aspirin 81 mg chewable tablet 1 tab PO DAILY 11/13/23 06/28/24 02/22/24 History fluticasone propionate 110 1 puff inhalation BID 11/13/23 06/28/24 Unknown History mcg/actuation HFA aerosol inhaler famotidine 40 mg tablet 40 mg PO BEDTIME PRN heartburn 02/13/24 06/28/24 Unknown History tirzepatide (weight loss) 5 mg/0.5 5 mg subcut QWEEK 10/26/24 Unknown History mL subcutaneous pen injector (Zepbound) Physical Exam 2 Vital Signs and Narrative: Vital Signs: Last Vital Signs Temp 98.7 F 11/07/24 21:34 Pulse 52 11/07/24 21:34 Resp 16 11/07/24 21:34 BP 143/73 H 11/07/24 21:34 Pulse Ox 98 11/07/24 21:34 O2 Del Method Room Air 11/07/24 21:34 BMI result Body Mass Index 58.8 General: Greenlandic-speaking, 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 AOx3, no acute distress Resp: CTA bilaterally CVS: S1, S2, RRR GI/: +BS, NT, no distention. Mild pain with deep palpation right flank Skin: Warm, dry Neuro: Cranial nerves II-XII grossly intact bilaterally. Motor grossly intact bilaterally Extremities: No lower extremity edema Psych: Appropriate affect Const: General: No confusion Orientation/consciousness: No confusion Eyes: Direct Ophthalmoscopy: No photophobia Neuro: General: No confusion Results Labs 11/07/24 16:29 11/07/24 16:29 Labs: Laboratory Results - last 24 hr 11/07/24 11/07/24 16:29 19:34 MCV 91.6 MCH 30.9 MCHC 33.7 RDW 14.2 Plt Count 326 MPV 9.2 L Immature Gran % (Auto) 0.5 H Neut % (Auto) 50.5 Lymph % (Auto) 36.9 [place] % (Auto) 7.9 Eos % (Auto) 3.7 Baso % (Auto) 0.5 Lymph # (Auto) 4.1 [place] # (Auto) 0.9 Eos # (Auto) 0.4 Baso # (Auto) 0.1 Abs Immat Gran (auto) 0.05 H Absolute Neuts (auto) 5.6 Absolute Nucleated RBC 0.000 Nucleated RBC % (auto) 0.0 APTT 36.9 H Anion Gap 10 L Estim Creat Clear Calc 115.0 Estimated GFR > 60 Random Glucose 97 Calcium 9.2 Magnesium 1.7 Total Bilirubin 0.2 AST 23 ALT 13 Alkaline Phosphatase 98 Total Protein 7.6 Albumin 3.4 L Lipase 11 Assessment and Plan (1) Atypical chest pain: Status: Inactive (2) Elevated troponin: Status: Acute (3) Left ureteral calculus: Status: Acute (4) Morbid obesity: Status: Acute Plan Pt is a 49 yo f with a pmhx significant for CAD/NSTEMI with KAMARI in LAD 06/08 and possible NSTEMI 11/07 with normal cardiac cath, YAMILETH on CPAP, morbid obesity, HLD, PTSD, fatty liver disease, mild persistent asthma, kidney stones, migraines, and HTN, who presented to the ED with LLQ/L flank pain starting around 5AM. Atypical chest pain with elevated troponin - has pain no longer present, significant history of NSTEMI in 1021 with KAMARI placed in LAD and questionable repeat episode in October of 2022 - EKG with normal sinus rhythm, septal infarct, no change from 09/29/2024 - troponin 101, 85 on repeat - ED provider discussed with Cardiology who suggested admission for observation - repeat troponin tomorrow AM - cardiology consult - monitor on telemetry Flank pain secondary to left ureteral calculus - WBC elevated at 11.1, likely reactive, vital signs stable, no sepsis or active infection - abdominopelvic CT with 4 mm left ureteral calculus at the level of L5 with mild left hydronephrosis. Multiple additional nonobstructing bilateral renal calculi. - UA not yet done - Flomax - pain management: Tramadol 50 mg q.6h p.r.n. - urology consult - follow CBC and BMP YAMILETH - patient declined CPAP HLD - continue statin Mild persistent asthma, no acute exacerbation - continue home inhalers/medications HTN - continue home meds ?T2DM - documentation of type 2 diabetes in the past - patient states she is not currently taking any medications - monitor POC - check A1c Tobacco use disorder - patient declined patch - smoking cessation discussed Morbid obesity, class 3 - BMI 58.8 - weight loss encouraged Med reconciliation that complete upon admission Full code VTE prophylaxis: Lovenox Patient with atypical chest pain with elevated troponin, with additional left ureteral calculus, requiring admission for observation for cardiac monitoring, Cardiology and Urology consultation. Quality Stroke Does the patient have a stroke diagnosis?: No VTE Prior VTE?: No VTE Risk Level:: Medical - moderate - high VTE Device Contraindication: Treatment Not Indicated VTE Drug Contraindication: N/A - Med Ordered
[2024-11-07] MEDS: Enoxaparin Sodium 40 MG/0.4 ML SYRINGE SUBCUT (21:43)
[2024-11-07] MEDS: Tamsulosin HCL 0.4 MG CAPSULE PO (21:43)
--- NOTE | 2024-11-07 22:02 | PC.NURSE ---
pt seen by hospitalist service w/deaf interpreter- plan is for admission for cardiac monitoring as well as urology consult d/t 4mm urethral calculus. pt has no complaints of pain at this time.. Pt medicated with tamsulosin- encouraged to change positions slowly. pt offer no further complaints at this time
[2024-11-08] VITALS (7 sets, daily range): BP systolic 125–150; BP diastolic 43–78; PULSE 60–75; RESP 15–19; TEMP 36.2–36.8; O2SAT 95–99
[2024-11-08 05:08] LABS: Hematocrit 37.5 % (37.0-47.0); Hemoglobin 12.5 g/dl (12.0-16.0); Mean Corpuscular HGB Conc 33.3 g/dl (31.0-35.0); Mean Corpuscular Volume 93.1 fL (80.0-98.0); Mean Platelet Volume 9.7 fL (9.4-12.3); Platelet Count 314 X10*3/uL (160-400); Red Blood Count 4.03 X10*6/uL (4.20-5.50); Red Cell Distribution Width 14.1 % (11.0-16.0); White Blood Count 9.1 X10*3/uL (4.8-10.8)
[2024-11-08 05:27] LABS: Anion Gap 10 (12-20); Blood Urea Nitrogen 10 mg/dL (9-16); Calcium 8.6 mg/dL (8.4-10.2); Carbon Dioxide 23 mmol/L (22-29); Chloride 111 mmol/L (96-108); Creatinine Clr Calc Pharmacy 141.6; Estimated Glomerular Filt Rate > 60; Glucose Random 83 mg/dL (60-115); Potassium 3.7 mmol/L (3.3-5.1); Sodium 140 mmol/L (135-145)
[2024-11-08 05:57] LABS: Estimated Average Glucose 123 mg/dL; Hemoglobin A1c % 5.9 % (<6.0); Total Hemoglobin (HGBA1C) 3361.7126 umol/L
--- NOTE | 2024-11-08 07:00 | CA_ITS ---
Transthoracic Echocardiogram Patient (Last, First, Middle): Blaire Quiroz, Gender: Female Date of : 1975 Age: 49 Procedure Date: 11/08/2024 Procedure Type: Transthoracic Echocardiogram [place] [facility] [place]: 167.64 cm Weight: 165.11 kg BSA: 2.58 m2 Heart Rate: 52 bpm BP: 125 / 43 mmHg Footwear Machinery Instructor: Referring MD: Mars Hutchinson MD Mining Support Worker: Mars Hutchinson MD Symptoms: Elevated troponin, evaluate wall motion Study Quality: Fair ECG Rhythm: Bradycardia Conclusions: - 1. Normal LV ejection fraction of 60 65% with mild LVH with grade 1 diastolic dysfunction 2. Early mild aortic stenosis 3. No gross pericardial effusion Findings Left Ventricle Normal left ventricular size and systolic function. There is mildly increased left ventricular wall thickness. The visually estimated ejection fraction is between 60-65%. Spectral Doppler is indicative of an impaired relaxation filling pattern. E/E prime ratio is <8, consistent with normal filling pressures. Evidence suggests grade I (mild) diastolic dysfunction. Right Ventricle Normal right ventricular cavity size and systolic function. Atria Both atria are normal in size. There is lipomatous hypertrophy of the interatrial septum. There is no evidence of interatrial shunt. Aortic Valve There is mild calcification of the aortic valve. There is mild aortic valve stenosis. The peak aortic gradient is 23 mmHg.The mean gradient is 9 mmHg. The aortic valve area is 2.17 cm2. There is no aortic valve regurgitation. Mitral Valve Normal mitral valve structure and function. There is trace mitral valve regurgitation. There is no mitral valve stenosis. Pulmonic Valve The pulmonic valve is likely normal. Tricuspid Valve Normal tricuspid valve structure. Tricuspid regurgitation envelope is inadequate for calculation of right ventricular systolic pressure. Normal right atrial pressure. Great Vessels All visible segments of the aorta are normal in size. The pulmonary artery was not well visualized. Small plaque is seen in the sino tubular ridge. Venous The inferior vena cava is normal in size and collapses greater than 50% with inspiration. Pericardium/Pleural There is no evidence of pericardial effusion. Prior Study Comparison Changes noted compared to prior study dated: 10/25/2022. early mild aortic stenosis noted Measurements 2D Linear Measurements IVSd: 1.32 0.6-0.9/0.6-1.0 cm LVIDd: 5.17 3.9-5.3/4.2-5.9 cm LVIDd Index: 2.00 2.4-3.2/2.2-3.1 cm/m2 LVIDs: 2.39 2.0-3.6 cm LVPWd: 1.21 0.7-1.1 cm LA Diam: 3.80 2.7-3.8/3.0-4.0 cm LAIDs Index: 1.47 1.5-2.3 cm/m2 LV Mass: 331.08 67-162/88-224 g LV Mass Index: 128.32 43-95/49-115 g/m2 LVOT Diam: 2.10 3.0+(-)1.3 cm Mitral Valve MV Pk E: 0.60 MV PK A: 0.67 MV Decel Time: 255.00 E/A: 0.90 E'Lateral: 9.46 E'Medial: 5.98 E/E' Med: 10.00 E/E' Lat: 6.30 PHT: 75.00 MVA PHT: 2.93 Decel Rock: 2.33 Aortic Valve AoV Pk Zane: 2.39 AoV Mn Zane: 1.34 AoV VTI: 0.50 AoV Pk Grad: 23.00 Aov Mn Grad: 9.00 JULIUS Cont.VTI: 2.17 LVOT LVOT Pk Zane: 1.33 LVOT Mn Zane: 0.84 LVOT VTI: 0.31 LVOT Pk Grad: 7.00 LVOT Mn Grad: 3.00 LVOT Diam: 2.10 LVOT Area: 3.46 Diastolic Function MV Pk E: 0.60 MV Pk A: 0.67 E/A: 0.90 E'Medial: 5.98 E/E' Med: 10.00 E' Laterial: 9.46 E/E' Lat: 6.30 Right Ventricle TAPSE (mm): 23.50 TVS' Zane: 10.70 Tricuspid Valve TR Pk Zane: 2.02 TR Pk Grad: 16.00 Great Vessels Aorta Sinus of Valsalva: 2.40 2.0-3.5 cm Ao Asc: 3.30 2.1-3.4 cm Pulmonary Valve PV Pk Zane: 1.17 Peak PV Grad: 5.00 Updated in Other Vendor System with Status of Final Mars Hutchinson MD electronically signed on 11/08/2024 3:17:40 PM with status of Final
--- NOTE | 2024-11-08 07:38 | PC.NURSE ---
Patient ate breakfast prior to NPO diet being placed by urology- patient aware that she is now NPO
[2024-11-08 07:46] LABS: Glucose, Whole Blood 91 mg/dL (60-115)
--- NOTE | 2024-11-08 09:18 | P.CONCA_ITS ---
History of Present Illness History of Present Illness Date of Service: 11/08/24 Requesting physician: Gregg Chavez Consult reason: troponin elevation Chief complaint: Flank Pain Narrative: I was consulted to see Blaire in cardiology consultation today for elevated troponin and chest pressure. History was obtained with help of consolidator. Patient was a 49-year-old female known to me with prior history of NSTEMI requiring LAD stenting, unfortunately continues to smoke, diabetes, morbid obesity, hypertension, hyperlipidemia taking all her medications. Recently saw her in the office. She was doing very well. She was at that point time taken off her dual antiplatelet therapy as she had more than 1 year since her stenting. She was doing well and yesterday started having flank pain and came to the hospital. She was having intense pain. She also said while having this intense. She had some chest pressure. When she came to the emergency room, she was noted to have elevated troponin which is downtrending EKGs not show any acute ST T wave changes. She is currently chest pain-free and flank pain free. She was also noted to have ureteral stones. Blood pressure is well optimized. Review of Systems 2 Constitutional: Constitutional: Reports no additional constitutional complaints Cardiovascular: Cardiovascular: Reports chest pain at rest, Denies rapid heart rate, Denies leg edema, Denies lightheadedness, Denies Loss of Consciousness and Denies dyspnea Respiratory: Respiratory: Reports no additional respiratory complaints and Denies dyspnea Gastrointestinal: Gastrointestinal: Reports no additional gastrointestinal complaints Genitourinary: Genitourinary: Reports flank pain Musculoskeletal: Musculoskeletal: Reports no additional musculoskeletal complaints Integumentary/Breasts: Skin/Breast: Reports system reviewed and no additional complaints, except as docu Neurologic: Reports system reviewed and no additional complaints, except as documented Psychiatric: Psychiatric: Reports no additional psychiatric complaints Endocrine: Endocrine: Reports no additional endocrine complaints [facility], [facility] Past Medical History Medical History Morbid obesity Hidradenitis suppurativa CAD (coronary artery disease) Subsequent non-ST elevation myocardial infarction (NSTEMI) within 4 weeks of initial infarction Non-ST elevation DC (NSTEMI) YAMILETH on CPAP Hyperlipidemia PTSD (post-traumatic stress disorder) Fatty liver Smoker Depression Obesity Leukocytosis Frequent UTI Asthma Mass of throat Chronic pain Kidney stone Migraine HTN (hypertension) Family History Family History Father Hypertension Mother Hypertension Osteoporosis Hx of bilateral cataract extraction Paternal Grandmother Diabetes Sister Asthma Maternal Uncle Throat cancer Maternal Aunt Ovarian cancer Breast cancer Surgical History Surgical History H/O excision of mass (06/28/24) Hx of cystoscopy Stented coronary artery History of heart artery stent History of lumpectomy of left breast (10/22/21) History of lithotripsy History of endometrial ablation Hx of colonoscopy History of breast lump/mass excision History of tonsillectomy H/O: hysterectomy Social History Social History Household Members: Children Housing: Apartment Are you a primary intensive care unit registered nurse to a significant other at home: No Do you presently have visiting nurse or other home services: Yes (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) Alcohol intake: never Comment: pt refusing alarms Patient Tobacco Use Status: Current everyday Tobacco user Tobacco use type: Cigarette Cigarette Packs Per Day: 0.5 Cigarettes Per Day: 10 Years Smoked: 30 Smoked in Last 30 Days: Yes Second Hand Smoke Exposure: No Advance Directives: Yes Advance Directives on File: Yes Advance Directives Date on File: 10/28/22 Patient : No service: No Current occupational status: unemployed and retired Meds Allergies Allergy/AdvReac Type Severity Reaction Status Date / Time penicillin G [PENICILLIN G] Allergy Severe DIFFICULTY Verified 11/07/24 16:14 BREATHING semaglutide [From Ozempic] AdvReac Severe Stomach Verified 11/07/24 16:14 Upset Active Medications: Current Medications Acetaminophen (Acetaminophen 325 Mg Tablet) 650 mg PO Q6H PRN PRN Reason: Pain, Mild 1-3,fever,headache Calcium Carbonate (Calcium Carbonate 750 Mg Tab.Chew) 750 mg PO Q4H PRN PRN Reason: Heartburn Enoxaparin Sodium (Enoxaparin Sodium 40 Mg/0.4 Ml Syringe) 40 mg SUBCUT Q24H ANDREW Last Admin: 11/07/24 21:43 Dose: 40 mg Magnesium Hydroxide (Milk Of Magnesia 30 Ml Oral.Susp) 30 ml PO DAILY PRN PRN Reason: Constipation Melatonin (Melatonin 3 Mg Tablet) 6 mg PO BEDTIME PRN PRN Reason: Insomnia Ondansetron HCl (Ondansetron Hcl 4 Mg/2 Ml Vial) 4 mg IVPUSH Q8H PRN PRN Reason: Nausea and Vomiting Sodium Chloride (0.9 % Sodium Chloride Flush 3 Ml Syringe) 3 ml IVFLUSH QSHIFT [facility] Last Admin: 11/08/24 03:24 Dose: Not Given Tamsulosin HCl (Tamsulosin Hcl 0.4 Mg Capsule) 0.4 mg PO DAILY [facility] Last Admin: 11/08/24 07:52 Dose: Not Given Tramadol HCl (Tramadol Hcl 50 Mg Tablet) 50 mg PO Q6H PRN PRN Reason: Pain, Severe (Pain Scale 7-10) Home Medications ?Medication ?Instructions ?Recorded ?Confirmed ?Last Taken ?Type baclofen 10 mg tablet 10 mg PO TID PRN muscle spasm 11/03/20 06/28/24 Unknown History albuterol sulfate 90 mcg/actuation 2 puff PO Q4-6H PRN Wheezing 12/01/20 06/28/24 06/28/24 History aerosol inhaler (Ventolin HFA) atorvastatin 80 mg tablet (Lipitor) 80 mg PO BEDTIME 12/01/20 06/28/24 05/20/22 History fluticasone propionate 50 2 spray intranasal DAILY 12/01/20 06/28/24 05/21/22 History mcg/actuation nasal spray,suspension blood pressure test kit-large #1 ea 12/19/20 06/28/24 Unknown History topiramate 50 mg tablet 50 mg PO BID 12/19/20 06/28/24 06/28/24 History cholecalciferol (vitamin D3) 50 50 mcg PO DAILY 03/13/22 06/28/24 05/21/22 History mcg (2,000 unit) capsule lisinopril 30 mg tablet 30 mg PO DAILY 07/01/22 06/28/24 Unknown History metformin 500 mg tablet,extended 500 mg PO BEDTIME 07/01/22 06/28/24 Unknown History release 24 hr metoprolol succinate 50 mg 50 mg PO DAILY 07/01/22 06/28/24 06/28/24 History tablet,extended release 24 hr tramadol 50 mg tablet 50 mg PO Q8H PRN severe pain 10/24/22 06/28/24 Unknown History capsaicin 0.025 % topical cream 1 appl topical BID PRN mild pain 10/25/22 06/28/24 Unknown History metronidazole 0.75 % topical gel 1 appl topical DAILY PRN Rash 10/25/22 06/28/24 Unknown History albuterol sulfate 2.5 mg/3 mL 2.5 mg inhalation Q4-6H PRN 11/15/22 06/28/24 Unknown History (0.083 %) solution for nebulization Wheezing aspirin 81 mg chewable tablet 1 tab PO DAILY 11/13/23 06/28/24 02/22/24 History fluticasone propionate 110 1 puff inhalation BID 11/13/23 06/28/24 Unknown History mcg/actuation HFA aerosol inhaler famotidine 40 mg tablet 40 mg PO BEDTIME PRN heartburn 02/13/24 06/28/24 Unknown History tirzepatide (weight loss) 5 mg/0.5 5 mg subcut QWEEK 10/26/24 Unknown History mL subcutaneous pen injector (Zepbound) benzoyl peroxide 10 % topical 1 appl topical DAILY 11/08/24 Unknown History cleanser emtricitabine 200 mg-tenofovir 1 tab PO DAILY 11/08/24 Unknown History disoproxil fumarate 300 mg tablet hydroquinone 4 % topical cream 1 appl topical BID 11/08/24 Unknown History ticagrelor 90 mg tablet (Brilinta) 90 mg PO BID 11/08/24 Unknown History Physical Exam 2 Vital Signs: Vital Signs: Last Vital Signs Temp 98.2 F 11/08/24 08:23 Pulse 61 11/08/24 08:23 Resp 18 11/08/24 08:23 BP 125/43 L 11/08/24 08:23 Pulse Ox 96 11/08/24 08:23 O2 Del Method Room Air 11/08/24 08:23 BMI result Body Mass Index 58.8 Const: General: cooperative, comfortable, no acute distress, alert and awake Nutritional Appearance: obese morbidly obese Orientation/consciousness: p atient oriented x3 Limitations: no limitations HEENT: Head: Yes normocephalic and Yes atraumatic Neck: Neck: Yes trachea midline, Yes supple and Yes no JVD Resp: Effort & Inspection: normal respiratory effort Auscultation: clear to auscultation bilaterally Cardio: Jugular venous distension: no JVD Palpation: normal PMI Rate: r egular rate Rhythm: regular rhythm Heart sounds: S1 normal heart sound present, S2 normal heart sound present, no click, no gallops, no murmurs and no rubs GI: Auscultation: normal bowel sounds Skin: General skin exam: no rashes or lesions noted Neuro: General: patient oriented x3 and no focal motor deficits Extrem: General: Yes no clubbing, cyanosis or edema Objective Labs and Meds 11/08/24 04:19 11/08/24 04:19 Lab results: Laboratory Results - last 24 hr 11/07/24 11/07/24 11/08/24 16:29 19:34 04:19 WBC 11.1 H 9.1 RBC 4.18 L 4.03 L Hgb 12.9 12.5 Hct 38.3 37.5 MCV 91.6 93.1 MCH 30.9 31.0 MCHC 33.7 33.3 RDW 14.2 14.1 Plt Count 326 314 MPV 9.2 L 9.7 Immature Gran % (Auto) 0.5 H Neut % (Auto) 50.5 Lymph % (Auto) 36.9 O'Brien % (Auto) 7.9 Eos % (Auto) 3.7 Baso % (Auto) 0.5 Lymph # (Auto) 4.1 O'Brien # (Auto) 0.9 Eos # (Auto) 0.4 Baso # (Auto) 0.1 Abs Immat Gran (auto) 0.05 H Absolute Neuts (auto) 5.6 Absolute Nucleated RBC 0.000 0.000 Nucleated RBC % (auto) 0.0 0.0 APTT 36.9 H Sodium 141 140 Potassium 3.9 3.7 Chloride 110 H 111 H Carbon Dioxide 25 23 Anion Gap 10 L 10 L BUN 12 10 Creatinine 0.96 0.78 Estim Creat Clear Calc 115.0 141.6 Estimated GFR > 60 > 60 POC Glucose Random Glucose 97 83 Estimat Average Glucose 123 Hemoglobin A1c % 5.9 Calcium 9.2 8.6 D Magnesium 1.7 Total Bilirubin 0.2 AST 23 ALT 13 Alkaline Phosphatase 98 Troponin I High Sens 101.3 H* D 85.7 H* 64.0 H* Total Protein 7.6 Albumin 3.4 L Lipase 11 11/08/24 07:42 WBC RBC Hgb Hct MCV MCH MCHC RDW Plt Count MPV Immature Gran % (Auto) Neut % (Auto) Lymph % (Auto) O'Brien % (Auto) Eos % (Auto) Baso % (Auto) Lymph # (Auto) O'Brien # (Auto) Eos # (Auto) Baso # (Auto) Abs Immat Gran (auto) Absolute Neuts (auto) Absolute Nucleated RBC Nucleated RBC % (auto) APTT Sodium Potassium Chloride Carbon Dioxide Anion Gap BUN Creatinine Estim Creat Clear Calc Estimated GFR POC Glucose 91 Random Glucose Estimat Average Glucose Hemoglobin A1c % Calcium Magnesium Total Bilirubin AST ALT Alkaline Phosphatase Troponin I High Sens Total Protein Albumin Lipase Assessment and Plan (1) Myocardial injury: Status: Acute myocardial injury in this middle-aged woman with prior history of CAD and multiple risk factors most likely due to stress of her pain related to a kidney stones. Although she was multiple risk factors. EKGs does not show any acute changes. Could also represent stress-induced cardiomyopathy. Will obtain a limited echocardiogram to evaluate for wall motion abnormality. Would suggest a inpatient myocardial perfusion imaging with the resting study done today and stress study done tomorrow. Continue aspirin, high-intensity statin therapy. Had a long discussion about complete smoking cessation. She says she is gradually trying to quit. Will follow with you Procedures Date of Service Date of Service: 11/08/24
--- NOTE | 2024-11-08 09:19 | CA_ITS ---
Acquisition Time: 2024-11-09 08:33:24 Total Exercise Time: 00:02:00 Test Indications: CAD Medications: METOPROLOL METFORMIN Protocol: LEXISCAN Max HR: 107 BPM 62% of Pred: 172 BPM Max BP: 120/72 mmHG Max Work Load: 1.0 METS Pharmacological stress test with Lexiscan while pt kicks her legs in chair, with reports of 10/10 mid chest pressure, SOB, headache, and abdominal discomfort, without any arrythmias, with normotensive response to injection. Nondiagnostic EKG for ischemia. In recovery, pt treated with IVP Aminophylline 75 mg to reverse Lexiscan after which pt feeling back to baseline. Nuclear images pending. Test reviewed with Dr. Hutchinson. Referred By: Mars Hutchinson Electronically Signed By: Nadeem Simmons
--- NOTE | 2024-11-08 10:51 | PHA.MEDREC ---
Addendum entered by Horacio Baez [facility] 11/08/24 13:23: Called [facility] to confirm Zepbound dose is 2.5mg. Original Note: Pharmacy Consult ? Medication Reconciliation Pharmacy has completed the medication reconciliation. Spoke with patient and patient sister at bedside utilizing lang interpreter. Patient was asleep but sister woke her up to see if she knew her medications. Patient had a list on her phone from [facility] we started going over and we realized the patient had medications that were not up to date in there and when I asked more on those she was not sure about them. The patient was able to confirmed her Zepbound once a week and confirmed she does it on and confirmed she took it this past . The patient stated her Dr stopped the Brilinta about 1 week ago. The patient stated she has not had any medications in 2 days. 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 I called the patients daughter Ciera and she was very rude over the phone asking why we were calling her for her mom (even tho she is the HCP in the patient contacts) and stated her mom should know everything and that she is filling at [facility] and it should all be on file; the daughter thought we were [facility] and got upset we had to ask them for confirmation. The daughter stated she was going to call her mom and see what was happening and hung the phone up on us. I called [facility] and they verbally confirmed the patients medications with me.
--- NOTE | 2024-11-08 11:52 | HO.PM.IMPN ---
Subjective Subjective Date of Service: 10/11/24 Interval History: chest pain Review of Systems no chest pain today no new events overnight as per patient. Physical Exam Vital Signs: Vital Signs: Last Vital Signs Temp 98.2 F 11/08/24 08:23 Pulse 61 11/08/24 08:23 Resp 18 11/08/24 08:23 BP 125/43 L 11/08/24 08:23 Pulse Ox 96 11/08/24 08:23 O2 Del Method Room Air 11/08/24 08:23 BMI result Body Mass Index 58.8 Const: Other: General: AO X 3, no acute distress Resp: CTA bilateral CVS: S1,S2,RRR GI: +BS, NT, no distention Skin: No rash Neuro: motor grossly intact Psych: appropriate affect Objective Data Active Medications Acetaminophen (Acetaminophen 325 Mg Tablet) 650 mg PO Q6H PRN PRN Reason: Pain, Mild 1-3,fever,headache Calcium Carbonate (Calcium Carbonate 750 Mg Tab.Chew) 750 mg PO Q4H PRN PRN Reason: Heartburn Enoxaparin Sodium (Enoxaparin Sodium 40 Mg/0.4 Ml Syringe) 40 mg SUBCUT Q24H [facility] Last Admin: 11/07/24 21:43 Dose: 40 mg Documented By: BRIDGET Magnesium Hydroxide (Milk Of Magnesia 30 Ml Oral.Susp) 30 ml PO DAILY PRN PRN Reason: Constipation Melatonin (Melatonin 3 Mg Tablet) 6 mg PO BEDTIME PRN PRN Reason: Insomnia Ondansetron HCl (Ondansetron Hcl 4 Mg/2 Ml Vial) 4 mg IVPUSH Q8H PRN PRN Reason: Nausea and Vomiting Sodium Chloride (0.9 % Sodium Chloride Flush 3 Ml Syringe) 3 ml IVFLUSH QSHIFT [facility] Last Admin: 11/08/24 03:24 Dose: Not Given Documented By: BASILIO Non-Admin Reason: Previously Administered Tamsulosin HCl (Tamsulosin Hcl 0.4 Mg Capsule) 0.4 mg PO DAILY [facility] Last Admin: 11/08/24 07:52 Dose: Not Given Documented By: PELON Non-Admin Reason: Physician Held Med Tramadol HCl (Tramadol Hcl 50 Mg Tablet) 50 mg PO Q6H PRN PRN Reason: Pain, Severe (Pain Scale 7-10) Labs 11/08/24 04:19 11/08/24 04:19 Labs: Laboratory Results - last 24 hr 11/07/24 11/07/24 11/08/24 16:29 19:34 04:19 MCV 91.6 93.1 MCH 30.9 31.0 MCHC 33.7 33.3 RDW 14.2 14.1 Plt Count 326 314 MPV 9.2 L 9.7 Immature Gran % (Auto) 0.5 H Neut % (Auto) 50.5 Lymph % (Auto) 36.9 [place] % (Auto) 7.9 Eos % (Auto) 3.7 Baso % (Auto) 0.5 Lymph # (Auto) 4.1 [place] # (Auto) 0.9 Eos # (Auto) 0.4 Baso # (Auto) 0.1 Abs Immat Gran (auto) 0.05 H Absolute Neuts (auto) 5.6 Absolute Nucleated RBC 0.000 0.000 Nucleated RBC % (auto) 0.0 0.0 APTT 36.9 H Anion Gap 10 L 10 L Estim Creat Clear Calc 115.0 141.6 Estimated GFR > 60 > 60 POC Glucose Random Glucose 97 83 Estimat Average Glucose 123 Hemoglobin A1c % 5.9 Calcium 9.2 8.6 D Magnesium 1.7 Total Bilirubin 0.2 AST 23 ALT 13 Alkaline Phosphatase 98 Total Protein 7.6 Albumin 3.4 L Lipase 11 11/08/24 07:42 MCV MCH MCHC RDW Plt Count MPV Immature Gran % (Auto) Neut % (Auto) Lymph % (Auto) [place] % (Auto) Eos % (Auto) Baso % (Auto) Lymph # (Auto) [place] # (Auto) Eos # (Auto) Baso # (Auto) Abs Immat Gran (auto) Absolute Neuts (auto) Absolute Nucleated RBC Nucleated RBC % (auto) APTT Anion Gap Estim Creat Clear Calc Estimated GFR POC Glucose 91 Random Glucose Estimat Average Glucose Hemoglobin A1c % Calcium Magnesium Total Bilirubin AST ALT Alkaline Phosphatase Total Protein Albumin Lipase Assessment and Plan (1) HTN (hypertension): Status: Acute (2) Chest discomfort: Status: Acute Plan Pt is a 49 yo f with a pmhx significant for CAD/NSTEMI with KAMARI in [place] 06/08 and possible NSTEMI 11/07 with normal cardiac cath, YAMILETH on CPAP, morbid obesity, HLD, PTSD, fatty liver disease, mild persistent asthma, kidney stones, migraines, and HTN, who presented to the ED with LLQ/L flank pain starting around 5AM. Atypical chest pain with elevated troponin, ? stress induced cardiomyopathy, pain resolved, has NSTEMI in past with KAMARI in [place]. Limited echo today, cardiology advises stress. continue medical management with ASA, metorolol, imdur, statin Flank pain secondary to left ureteral calculus, - abdominopelvic CT with 4 mm left ureteral calculus at the level of L5 with mild left hydronephrosis. Multiple additional nonobstructing bilateral renal calculi. pain has resolved, possibly passed. If pain persists may need cysto, seen by urology, NPO for now - follow CBC and BMP YAMILETH - patient declined CPAP HLD - continue statin Mild persistent asthma, no acute exacerbation - continue home inhalers/medications HTN - continue home meds ?T2DM - documentation of type 2 diabetes in the past - patient states she is not currently taking any medications - monitor POC - A1C = 5.9 Tobacco use disorder - patient declined patch - smoking cessation discussed Morbid obesity, class 3 - BMI 58.8 - weight loss encouraged HIV prevention NOT disease--continue HAART Med reconciliation that complete upon admission Full code VTE prophylaxis: Lovenox Patient with atypical chest pain with elevated troponin, with additional left ureteral calculus, requiring admission for observation for cardiac monitoring, Cardiology and Urology consultation. Quality Stroke Does the patient have a stroke diagnosis?: No VTE Prior VTE?: No VTE Risk Level:: Medical - moderate - high VTE Device Contraindication: Treatment Not Indicated VTE Drug Contraindication: N/A - Med Ordered
[2024-11-08] MEDS: allopurinoL 100 MG TABLET PO (13:10)
[2024-11-08] MEDS: Metoprolol Succinate ER 50 MG TAB.ER.24H PO (13:10)
[2024-11-08] MEDS: Isosorbide Mononitrate 60 MG TAB.ER.24H PO (13:10)
[2024-11-08] MEDS: Topiramate 25 MG TABLET 50 MG PO ×2 (13:10→21:24)
[2024-11-08] MEDS: Ezetimibe 10 MG TABLET PO (13:10)
[2024-11-08] MEDS: 0.9 % Sodium Chloride Flush 3 ML SYRINGE IVFLUSH ×3 (13:11→23:48)
--- NOTE | 2024-11-08 13:53 | MHC.CM.PN ---
CM met with Patient at bedside with the assist of a [facility] Production Planning Supervisor and addressed G[place] with her (original was given to Patient and a copy has been placed on the chart). Patient lives in an apartment with her 2 adult Children, has [employer] services & [employer]. Home/resume said services is the goal and CM has initiated and will follow for dc planning.Patient uses a cane at times and she uses CPAP @ home. PCP is Dr. Carmen Bertrand and Daughter/HCP/Mily will transport to home.
[2024-11-08] MEDS: Pyridoxine HCl (Vitamin B6) 50 MG TABLET 100 MG PO (14:02)
[2024-11-08] MEDS: Emtricitabin/Tenofovir DF 200/300 TABLET 1 TAB PO (14:02)
[2024-11-08 20:27] LABS: Glucose, Whole Blood 118 mg/dL (60-115)
[2024-11-08] MEDS: Enoxaparin Sodium 40 MG/0.4 ML SYRINGE SUBCUT (21:22)
[2024-11-08] MEDS: Atorvastatin Calcium 80 MG TABLET PO (21:22)
[2024-11-09 04:00] VITALS: BP 131/62; PULSE 58; RESP 18; TEMP 36.7; O2SAT 95
[2024-11-09 07:07] LABS: Glucose, Whole Blood 100 mg/dL (60-115)
[2024-11-09 07:23] VITALS: BP 147/68; PULSE 52; RESP 20; TEMP 36.7; O2SAT 93
[2024-11-09] MEDS: 0.9 % Sodium Chloride Flush 3 ML SYRINGE IVFLUSH (08:20)
--- NOTE | 2024-11-09 08:46 | P.PNUR_ITS ---
Subjective Subjective Date of Service: 11/09/24 Interval history: Intimal pain Patient remains for cardiac evaluation after noted to have troponin elevation May follow as outpatient in 6 weeks with ultrasound Physical Exam 2 Vital Signs: Vital Signs: Last Vital Signs Temp 98.0 F 11/09/24 07:23 Pulse 52 11/09/24 07:23 Resp 20 11/09/24 07:23 BP 147/68 H 11/09/24 07:23 Pulse Ox 93 11/09/24 07:23 O2 Del Method Room Air 11/09/24 07:23 BMI result Body Mass Index 58.8 Const: General: cooperative, healthy appearing, comfortable and no acute distress Orientation/consciousness: patient oriented x3 HEENT: Face and sinus: Yes normal facial exam Mouth: moist mucous membranes Neck: Neck: Yes normal visual inspection, Yes full ROM and Yes trachea midline Chest: Chest palpation & inspection: normal inspection of the chest Resp: Effort & Inspection: normal respiratory effort, able to speak in complete sentences and no respiratory distress GI: Inspection: Yes normal to inspection Back/Spine/Pelvis: Cervical Spine: normal cervical lordosis Thoracic/Lumbar Spine: thoracic and lumbar spine normal to inspection Skin: General skin exam: no rashes or lesions noted Neuro: General: patient oriented x3, tone normal and moves all extremities Extrem: General: Yes normal to inspection and Yes capillary refill normal Urology Results Labs 11/08/24 04:19 11/08/24 04:19 Labs: Laboratory Results - last 24 hr 11/08/24 11/09/24 20:23 06:59 POC Glucose 118 H 100 Progress Note: A&P Assessment and plan (1) Nephrolithiasis: Status: Acute Plan 6 week f/u outpatient Time Spent With Patient Time: Total time managing care of this patient today ____ minutes. Progress Note: Quality Stroke Does the patient have a stroke diagnosis?: No
--- NOTE | 2024-11-09 08:48 | PM.UROCN ---
History of Present Illness Consult details Consult date: 11/08/24 Narrative: CC: Left ureteric stone 49-year-old Syriac-speaking female Present through emergency room with left lower quadrant flank pain. Has been persistent. Was so mentioned episode of chest pressure. Prior cardiac history with known CAD. Has been on topiramate for migraines. Known stone risk. Morbidly obese with fatty liver Reported nausea and vomiting throughout day, no hematuria, urgency or frequency At evaluation pain has resolved Imaging - 4 mm left ureteral calculus at the level of L5 with mild left hydronephrosis. Multiple additional nonobstructing bilateral renal calculi High likelihood stone may have passed Would admit overnight for confirmation Given baseline diabetes and topiramate use would benefit from potassium citrate supplementation Review of Systems Constitutional: Constitutional: Reports as per HPI and Reports no additional constitutional complaints Cardiovascular: Cardiovascular: Reports as per HPI and Reports no additional cardiovascular complaints Respiratory: Respiratory: Reports as per HPI and Reports no additional respiratory complaints Gastrointestinal: Gastrointestinal: Reports as per HPI and Reports no additional gastrointestinal complaints Genitourinary: Genitourinary: Reports as per HPI Musculoskeletal: Musculoskeletal: Reports no additional musculoskeletal complaints and Reports as per HPI Neurologic: Reports system reviewed and no additional complaints, except as documented and Reports as per HPI PMF Past Medical History Medical History Morbid obesity Hidradenitis suppurativa CAD (coronary artery disease) Subsequent non-ST elevation myocardial infarction (NSTEMI) within 4 weeks of initial infarction Non-ST elevation AR (NSTEMI) YAMILETH on CPAP Hyperlipidemia PTSD (post-traumatic stress disorder) Fatty liver Smoker Depression Obesity Leukocytosis Frequent UTI Asthma Mass of throat Chronic pain Kidney stone Migraine HTN (hypertension) Family History Family History Father Hypertension Mother Hypertension Osteoporosis Hx of bilateral cataract extraction Paternal Grandmother Diabetes Sister Asthma Maternal Uncle Throat cancer Maternal Aunt Ovarian cancer Breast cancer Surgical History Surgical History H/O excision of mass (06/28/24) Hx of cystoscopy Stented coronary artery History of heart artery stent History of lumpectomy of left breast (10/22/21) History of lithotripsy History of endometrial ablation Hx of colonoscopy History of breast lump/mass excision History of tonsillectomy H/O: hysterectomy Social History Social History Household Members: Family Housing: Apartment Are you a primary healthcare advisory services manager to a significant other at home: No Do you presently have visiting nurse or other home services: Yes (outer diameter grinder services) Alcohol intake: never Comment: pt refusing alarms Patient Tobacco Use Status: Current everyday Tobacco user Tobacco use type: Cigarette Cigarette Packs Per Day: 0.5 Cigarettes Per Day: 10 Years Smoked: 30 e-Cigarette/Vaping Use: Never Used Second Hand Smoke Exposure: No Advance Directives Date on File: 10/28/22 service: No Current occupational status: unemployed and retired Meds Allergies Allergy/AdvReac Type Severity Reaction Status Date / Time penicillin G [PENICILLIN G] Allergy Severe DIFFICULTY Verified 11/07/24 16:14 BREATHING semaglutide [From Ozempic] AdvReac Severe Stomach Verified 11/07/24 16:14 Upset Active Medications: Current Medications Acetaminophen (Acetaminophen 325 Mg Tablet) 650 mg PO Q6H PRN PRN Reason: Pain, Mild 1-3,fever,headache Albuterol Sulfate (Albuterol Sulfate (0.083%) 2.5 Mg/3 Ml Vial.Neb) 2.5 mg INHALE Q4H PRN PRN Reason: Wheezing Albuterol Sulfate (Albuterol Sulfate 90 Mcg 8 Gm Inhaler) 2 puff INHALE Q4H PRN PRN Reason: Wheezing Allopurinol (Allopurinol 100 Mg Tablet) 100 mg PO DAILY [facility] Last Admin: 11/08/24 13:10 Dose: 100 mg Aspirin (Aspirin 81 Mg Tab.Chew) 81 mg PO DAILY [facility] Atorvastatin Calcium (Atorvastatin Calcium 80 Mg Tablet) 80 mg PO BEDTIME [facility] Last Admin: 11/08/24 21:22 Dose: 80 mg Calcium Carbonate (Calcium Carbonate 750 Mg Tab.Chew) 750 mg PO Q4H PRN PRN Reason: Heartburn Clotrimazole (Clotrimazole 1 % Cream 15 Gm Tube) 1 appl TOPICAL BID [facility] Last Admin: 11/08/24 21:30 Dose: Not Given Ezetimibe (Ezetimibe 10 Mg Tablet) 10 mg PO DAILY [facility] Last Admin: 11/08/24 13:10 Dose: 10 mg Emtricitabine/Tenofovir (Emtricitabin/Tenofovir Df 200/300 Tablet) 1 tab PO DAILY [facility] Last Admin: 11/08/24 14:02 Dose: 1 tab Enoxaparin Sodium (Enoxaparin Sodium 40 Mg/0.4 Ml Syringe) 40 mg SUBCUT Q24H [facility] Last Admin: 11/08/24 21:22 Dose: 40 mg Famotidine (Famotidine 20 Mg Tablet) 40 mg PO BEDTIME PRN PRN Reason: heartburn Fluticasone Propionate (Fluticasone Propionate Nasal 16 Gm [place]) 2 spray NOSTRIL-B DAILY [facility] Last Admin: 11/08/24 14:02 Dose: Not Given Fluticasone Propionate (Fluticasone Propionate 100 Mcg Blst.W.Dev) 2 puff INHALE RBID [facility] Last Admin: 11/09/24 08:43 Dose: Not Given Hydrochlorothiazide (Hydrochlorothiazide 12.5 Mg Tablet) 12.5 mg PO DAILY [facility]; Protocol Isosorbide Mononitrate (Isosorbide Mononitrate 60 Mg Tab.Er.24h) 60 mg PO DAILY [facility]; Protocol Last Admin: 11/08/24 13:10 Dose: 60 mg Magnesium Hydroxide (Milk Of Magnesia 30 Ml Oral.Susp) 30 ml PO DAILY PRN PRN Reason: Constipation Melatonin (Melatonin 3 Mg Tablet) 6 mg PO BEDTIME PRN PRN Reason: Insomnia Metoprolol Succinate (Metoprolol Succinate Er 50 Mg Tab.Er.24h) 50 mg PO DAILY [facility]; Protocol Last Admin: 11/08/24 13:10 Dose: 50 mg Metronidazole (Metronidazole 0.75 % Gel 45 Gm Tube) 1 appl TOPICAL DAILY PRN PRN Reason: Rash Omeprazole (Omeprazole 40 Mg Capsule.Dr) 40 mg PO DAILY@0630 [facility] Last Admin: 11/09/24 05:55 Dose: Not Given Ondansetron HCl (Ondansetron Hcl 4 Mg/2 Ml Vial) 4 mg IVPUSH Q8H PRN PRN Reason: Nausea and Vomiting Pyridoxine HCl (Pyridoxine Hcl (Vitamin B6) 50 Mg Tablet) 100 mg PO DAILY [facility] Last Admin: 11/08/24 14:02 Dose: 100 mg Sodium Chloride (0.9 % Sodium Chloride Flush 3 Ml Syringe) 3 ml IVFLUSH QSHIFT [facility] Last Admin: 11/09/24 08:20 Dose: 3 ml Tamsulosin HCl (Tamsulosin Hcl 0.4 Mg Capsule) 0.4 mg PO DAILY [facility] Last Admin: 11/08/24 07:52 Dose: Not Given Topiramate (Topiramate 25 Mg Tablet) 50 mg PO BID [facility] Last Admin: 11/08/24 21:24 Dose: 50 mg Tramadol HCl (Tramadol Hcl 50 Mg Tablet) 50 mg PO Q6H PRN PRN Reason: Pain, Severe (Pain Scale 7-10) Vitamin D (Cholecalciferol (Vitamin D3) 25 Mcg Tablet) 50 mcg PO DAILY [facility] Home Medications ?Medication ?Instructions ?Recorded ?Confirmed ?Last Taken ?Type albuterol sulfate 90 mcg/actuation 2 puff PO Q4-6H PRN Wheezing 12/01/20 11/08/24 06/28/24 History aerosol inhaler (Ventolin HFA) atorvastatin 80 mg tablet (Lipitor) 80 mg PO BEDTIME 12/01/20 11/08/24 11/06/24 History fluticasone propionate 50 2 spray intranasal DAILY 12/01/20 11/08/24 11/06/24 History mcg/actuation nasal spray,suspension blood pressure test kit-large #1 ea 12/19/20 06/28/24 Unknown History topiramate 50 mg tablet 50 mg PO BID 12/19/20 11/08/24 11/06/24 History cholecalciferol (vitamin D3) 50 50 mcg PO DAILY 03/13/22 11/08/24 11/06/24 History mcg (2,000 unit) capsule lisinopril 30 mg tablet 30 mg PO DAILY 07/01/22 11/08/24 11/06/24 History metformin 500 mg tablet,extended 500 mg PO DAILY@1700 07/01/22 11/08/24 11/06/24 History release 24 hr metoprolol succinate 50 mg 50 mg PO DAILY 07/01/22 11/08/24 11/06/24 History tablet,extended release 24 hr tramadol 50 mg tablet 50 mg PO Q8H PRN severe pain 10/24/22 11/08/24 Unknown History metronidazole 0.75 % topical gel 1 appl topical DAILY PRN Rash 10/25/22 11/08/24 Unknown History albuterol sulfate 2.5 mg/3 mL 2.5 mg inhalation Q4-6H PRN 11/15/22 11/08/24 Unknown History (0.083 %) solution for nebulization Wheezing aspirin 81 mg chewable tablet 1 tab PO DAILY 11/13/23 11/08/24 11/06/24 History fluticasone propionate 110 2 puff inhalation BID 11/13/23 11/08/24 11/06/24 History mcg/actuation HFA aerosol inhaler famotidine 40 mg tablet 40 mg PO BEDTIME PRN heartburn 02/13/24 11/08/24 Unknown History benzoyl peroxide 10 % topical 1 appl topical DAILY 11/08/24 11/08/24 11/06/24 History cleanser econazole nitrate 1 % topical cream 1 appl topical BID 11/08/24 11/08/24 11/06/24 History emtricitabine 200 mg-tenofovir 1 tab PO DAILY 11/08/24 11/08/24 11/06/24 History disoproxil fumarate 300 mg tablet hydroquinone 4 % topical cream 1 appl topical BID 11/08/24 11/08/24 11/06/24 History omeprazole 20 mg capsule,delayed 40 mg PO DAILY@0630 11/08/24 11/08/24 11/06/24 History release tirzepatide (weight loss) 2.5 2.5 mg subcut TH 11/08/24 11/08/24 11/04/24 History mg/0.5 mL subcutaneous pen injector (Zepbound) Physical Exam Vital Signs: Vital Signs: Last Vital Signs Temp 98.0 F 11/09/24 07:23 Pulse 52 11/09/24 07:23 Resp 20 11/09/24 07:23 BP 147/68 H 11/09/24 07:23 Pulse Ox 93 11/09/24 07:23 O2 Del Method Room Air 11/09/24 07:23 BMI result Body Mass Index 58.8 Const: General: cooperative, healthy appearing, comfortable and no acute distress Orientation/consciousness: patient oriented x3 HEENT: Face and sinus: Yes normal facial exam Mouth: moist mucous membranes Neck: Neck: Yes normal visual inspection, Yes full ROM and Yes trachea midline Chest: Chest palpation & inspection: normal inspection of the chest Resp: Effort & Inspection: normal respiratory effort, able to speak in complete sentences and no respiratory distress GI: Inspection: Yes normal to inspection Back/Spine/Pelvis: Cervical Spine: normal cervical lordosis Thoracic/Lumbar Spine: thoracic and lumbar spine normal to inspection Skin: General skin exam: no rashes or lesions noted Neuro: General: patient oriented x3, tone normal and moves all extremities Extrem: General: Yes normal to inspection and Yes capillary refill normal Results Labs 11/08/24 04:19 11/08/24 04:19 Labs: Abnormal lab results 11/08/24 Range/Units 20:23 POC Glucose 118 H (60-115) mg/dL All other labs normal. Assessment and Plan (1) Nephrolithiasis: Status: Acute Plan Outpatient ultrasound follow-up Procedures Date of Service Date of Service: 11/09/24
--- NOTE | 2024-11-09 09:57 | PM.PNCARD ---
Subjective Subjective Date of Service: 11/09/24 Principal diagnosis: Elevated troponin, CAD Interval history: Patient no longer having chest pain. Hemodynamically stable. Plan to undergo stress MIBI today. Resting study was done yesterday. Echocardiogram showed normal LV ejection fraction without significant wall motion abnormality. Review of Systems Constitutional: Reports no additional constitutional complaints Cardiovascular: Denies chest pain, Denies rapid heart rate, Denies lightheadedness, Denies Loss of Consciousness and Reports dyspnea on exertion Respiratory: Reports dyspnea on exertion Gastrointestinal: Denies no additional gastrointestinal complaints Psychiatric: Denies no additional psychiatric complaints Physical Exam Vital Signs: Last Vital Signs Temp 98.0 F 11/09/24 07:23 Pulse 52 11/09/24 07:23 Resp 20 11/09/24 07:23 BP 147/68 H 11/09/24 07:23 Pulse Ox 93 11/09/24 07:23 O2 Del Method Room Air 11/09/24 07:23 BMI result Body Mass Index 58.8 Const General: cooperative, comfortable, no acute distress, alert and awake Nutritional Appearance: obese morbidly obese Orientation/consciousness: patient oriented x3 Limitations: no limitations HEENT Head: Yes normocephalic and Yes atraumatic Neck Neck: Yes trachea midline, Yes supple and Yes no JVD Resp Effort & Inspection: normal respiratory effort Auscultation: clear to auscultation bilaterally Cardio Jugular venous distension: no JVD Palpation: normal PMI Rate: regular rate Rhythm: regular rhythm Heart sounds: S1 normal heart sound present, S2 normal heart sound present, no click, no gallops, no murmurs and no rubs GI Auscultation: normal bowel sounds Skin General skin exam: no rashes or lesions noted Neuro General: patient oriented x3 and no focal motor deficits Extrem General: Yes no clubbing, cyanosis or edema Objective Labs and Meds 11/08/24 04:19 11/08/24 04:19 Lab results: Laboratory Results - last 24 hr 11/08/24 11/09/24 20:23 06:59 POC Glucose 118 H 100 Progress Note: A&P Assessment and plan (1) Myocardial injury: Status: Acute Assessment and Plan: Myocardial injury probably stress related from significant renal colic. To undergo myocardial perfusion imaging today. Resting was then today. Echocardiogram shows normal LV ejection fraction without regional wall motion abnormality which carries good prognosis. Continue aggressive medical therapy. Continue lifelong aspirin therapy. Continue high-intensity statin therapy. Complete smoking cessation was advised. Continue aggressive diabetes control as well as blood pressure control which is well optimized. Further treatment based on finding a stress test. If negative can be discharged home later today Time Spent With Patient Time: Total time managing care of this patient today ____ minutes. Progress Note: Quality Stroke Does the patient have a stroke diagnosis?: No Procedures Date of Service Date of Service: 11/09/24
[2024-11-09] MEDS: Aspirin 81 MG TAB.CHEW PO (10:36)
[2024-11-09 10:37] VITALS: BP 147/68
[2024-11-09] MEDS: hydroCHLOROthiazide 12.5 MG TABLET PO (10:37)
[2024-11-09] MEDS: Ezetimibe 10 MG TABLET PO (10:37)
[2024-11-09] MEDS: Isosorbide Mononitrate 60 MG TAB.ER.24H PO (10:38)
[2024-11-09] MEDS: Metoprolol Succinate ER 50 MG TAB.ER.24H PO (10:38)
[2024-11-09] MEDS: allopurinoL 100 MG TABLET PO (10:39)
[2024-11-09] MEDS: Pyridoxine HCl (Vitamin B6) 50 MG TABLET 100 MG PO (10:39)
[2024-11-09] MEDS: Topiramate 25 MG TABLET 50 MG PO (10:39)
[2024-11-09] MEDS: Cholecalciferol (Vitamin D3) 25 MCG TABLET 50 MCG PO (10:40)
[2024-11-09] MEDS: Tamsulosin HCL 0.4 MG CAPSULE PO (10:40)
[2024-11-09 11:03] LABS: Glucose, Whole Blood 111 mg/dL (60-115)
[2024-11-09 11:11] VITALS: BP 153/90; PULSE 58; RESP 18; TEMP 36.5; O2SAT 96
--- NOTE | 2024-11-09 13:27 | P.DS_ITS ---
DS: Providers Provider Date of Service: 11/09/24 Date of admission: 11/07/24 21:24 Date of discharge: 11/09/24 Primary care physician: Carmen Bertrand DO Consults: 11/07/24 21:25 Consult to Cardiology Routine Consulting Provider: [facility] Reason for consultation: chest pain Has provider been notified: Yes Consult to Urology Routine Consulting Provider: [facility] Reason for consultation: 4 mm left ureteral calculus ; flank pain Has provider been notified: Yes DS: Diagnosis Discharge Diagnosis (1) HTN (hypertension): Status: Acute (2) Chest discomfort: Status: Acute DS: Summary Hospital Course Hospital Course: Pt is a 49 yo f with a pmhx significant for CAD/NSTEMI with KAMARI in LAD 06/08 and possible NSTEMI 11/07 with normal cardiac cath, YAMILETH on CPAP, morbid obesity, HLD, PTSD, fatty liver disease, mild persistent asthma, kidney stones, migraines, and HTN, who presented to the ED with LLQ/L flank pain starting and chest pain Atypical chest pain with elevated troponin, had a stress test showing Myocardial perfusion imaging study shows mild intensity ischemia mid to distal LAD territory. To continue ASA, metoprolol, lipitor and zetia. Cardiology advises adding Plavix, and Norvasc 5 mg daily. Flank pain secondary to left ureteral calculus, - abdominopelvic CT with 4 mm left ureteral calculus at the level of L5 with mild left hydronephrosis. Multiple additional nonobstructing bilateral renal calculi. pain has resolved, possibly passed. Was seen by Urology and given no pain no intervention YAMILETH - patient declined CPAP HLD - continue statin Mild persistent asthma, no acute exacerbation - continue home inhalers/medications HTN - continue home meds T2DM - documentation of type 2 diabetes in the past - patient states she is not currently taking any medications - monitor POC she is on weight loss medications - A1C = 5.9 Tobacco use disorder - patient declined patch - smoking cessation discussed Morbid obesity, class 3 - BMI 58.8 - weight loss encouraged HIV prevention NOT disease--continue HAART Time Attestation Discharge Coordination Time (in mins): 45 Quality: Safe Use of Opioids Does Pt have an Active Cancer Diagnosis on the Problem List?: No Quality: Stroke Does the patient have a stroke diagnosis?: No Physical Exam Vital Signs: Vital Signs: Last Vital Signs Temp 97.7 F 11/09/24 11:11 Pulse 58 11/09/24 11:11 Resp 18 11/09/24 11:11 BP 153/90 H 11/09/24 11:11 Pulse Ox 96 11/09/24 11:11 O2 Del Method Room Air 11/09/24 11:11 BMI result Body Mass Index 58.8 Const: Other: General: AO X 3, no acute distress Resp: CTA bilateral CVS: S1,S2,RRR GI: +BS, NT, no distention Skin: No rash Neuro: motor grossly intact Psych: appropriate affect DS: Data Data Completed and Pending Labs on day of discharge: Laboratory Results - last 24 hr 11/08/24 11/09/24 11/09/24 20:23 06:59 10:52 POC Glucose 118 H 100 111 Discharge Plan Discharge Anticipated Discharge Date/Time: 11/09/24 13:19 Patient Disposition: Home, Self-Care Discharge Diagnosis: Chest pain, elevated troponin, kidney stone Referrals: Carmen Bertrand DO [Primary Care Provider] - 1 Week Discharge Medications: New amlodipine [Norvasc] 5 mg tablet 5 mg PO DAILY Qty: 90 0RF clopidogrel [Plavix] 75 mg tablet 75 mg PO DAILY Qty: 90 0RF Continued allopurinol 100 mg tablet 100 mg PO DAILY 90 Days Qty: 90 1RF ezetimibe 10 mg tablet 10 mg PO DAILY Qty: 30 6RF albuterol sulfate [Ventolin HFA] 90 mcg/actuation HFA aerosol inhaler 2 puff PO Q4-6H PRN (Reason: Wheezing) fluticasone propionate 50 mcg/actuation spray,suspension 2 spray intranasal DAILY atorvastatin [Lipitor] 80 mg Tablet 80 mg PO BEDTIME lisinopril 30 mg tablet 30 mg PO DAILY metformin 500 mg tablet extended release 24 hr 500 mg PO DAILY@1700 metronidazole 0.75 % gel 1 appl topical DAILY PRN (Reason: Rash) famotidine 40 mg tablet 40 mg PO BEDTIME PRN (Reason: heartburn) hydroquinone 4 % cream 1 appl topical BID benzoyl peroxide 10 % cleanser 1 appl topical DAILY emtricitabine-tenofovir (TDF) 200-300 mg tablet 1 tab PO DAILY econazole nitrate 1 % cream 1 appl topical BID omeprazole 20 mg capsule,delayed release(DR/EC) 40 mg PO DAILY@0630 Zepbound 2.5 mg/0.5 mL pen injector 2.5 mg subcut TH topiramate 50 mg tablet 50 mg PO BID (DME) blood pressure test kit-large Kit See Rx Instructions .ROUTE DIRECTED Qty: 1 Rx Instructions: As directed tramadol 50 mg tablet 50 mg PO Q8H PRN (Reason: severe pain) cholecalciferol (vitamin D3) 50 mcg (2,000 unit) capsule 50 mcg PO DAILY metoprolol succinate 50 mg tablet extended release 24 hr 50 mg PO DAILY aspirin 81 mg tablet,chewable 1 tab PO DAILY fluticasone propionate 110 mcg/actuation HFA aerosol inhaler 2 puff inhalation BID hydrochlorothiazide 12.5 mg tablet 12.5 mg PO DAILY Qty: 30 3RF albuterol sulfate 2.5 mg /3 mL (0.083 %) solution for nebulization 2.5 mg inhalation Q4-6H PRN (Reason: Wheezing) isosorbide mononitrate 60 mg tablet extended release 24 hr 60 mg PO DAILY Qty: 30 5RF Rx Instructions: Dose increased pyridoxine (vitamin B6) 100 mg tablet 100 mg PO DAILY 90 Days Qty: 90 3RF Discharge Orders: Discharge Order (Routine); Ordered 11/09/24 Ordered By: Gregg Chavez Diet: Advance to usual diet Activity on Discharge: As tolerated Stand Alone Forms: Patient Portal Discharge page Print Language: Danish Care Plan Goals: recovery from chest pain and elevated troponin and kidney stone Health Concerns: chest pain elevated troponin i kidney stone Plan of Treatment: follow up with your doctor and heart doctor take Norvasc 5 mg daily as prescribed take Plavix 75 mg daily and continue taking all other medications Assessment: see above
--- NOTE | 2024-11-09 13:32 | MHC.CM.PN ---
Pt has been medically cleared to [place], she will go home via private transport, plan is self care.
== END 2024-11-09 14:48 | disposition home or self-care (01) ==
LOC: HO.ED 21:39 → HO.EDOVER 21:50 → HO.IMC 11-08 09:14
PROVIDERS: Internal Medicine; Physician Assistant; Physician Assistant Medical; Admitting Provider Student in an Organized Health Care Education/Training Program; Emergency Provider Emergency Medicine; PCP Family Medicine; Visit Provider Internal Medicine
DX: R07.89 Other chest pain (principal); R79.89 Other specified abnormal findings of blood chemistry; N20.2 Calculus of kidney with calculus of ureter; N20.1 Calculus of ureter; E66.01 Morbid (severe) obesity due to excess calories; I5A Non-ischemic myocardial injury (non-traumatic); N20.0 Calculus of kidney; I10 Essential (primary) hypertension; E78.5 Hyperlipidemia, unspecified; I25.10 Atherosclerotic heart disease of native coronary artery without angina pectoris; E11.9 Type 2 diabetes mellitus without complications; I35.0 Nonrheumatic aortic (valve) stenosis; E66.813 Obesity, class 3; Z71.3 Dietary counseling and surveillance; Z68.43 Body mass index [BMI] 50.0-59.9, adult; Z79.899 Other long term (current) drug therapy; F17.210 Nicotine dependence, cigarettes, uncomplicated; Z71.6 Tobacco abuse counseling; G47.33 Obstructive sleep apnea (adult) (pediatric); Z99.89 Dependence on other enabling machines and devices; Z87.442 Personal history of urinary calculi; Z86.79 Personal history of other diseases of the circulatory system
CPT/HCPCS: 36415; 71045; 74176; 78452; 80048; 80053; 82947; 83036; 83690; 83735; 84484; 85025; 85027; 85730; 93005; 93017; 93306; 96372; 96374; 99222; 99285; A9500; J0280; J1171; J1650; J2785; Q9957

== ENCOUNTER → 2024-11-07 18:01 | Outpatient (BNV) | payer OTHER, SELFPAY ==
[2022-10-22 13:00] VITALS: BP 128/72; BP 148/88; BMI 63.7
[2023-01-30 14:13] VITALS: BP 140/60
== END ==
PROVIDERS: Emergency Provider Emergency Medicine; PCP Family Medicine; Visit Provider Radiology Diagnostic Radiology
DX: N20.2 Calculus of kidney with calculus of ureter (principal); R07.9 Chest pain, unspecified
CPT/HCPCS: 71045; 74176

== ENCOUNTER 2024-11-07 21:24 | Outpatient (BNV) | payer OTHER, SELFPAY ==
[2022-10-22 13:00] VITALS: BP 128/72; BP 148/88; BMI 63.7
[2023-01-30 14:13] VITALS: BP 140/60
== END 2024-11-08 07:00 ==
PROVIDERS: Admitting Provider Student in an Organized Health Care Education/Training Program; Emergency Provider Emergency Medicine; PCP Family Medicine; Visit Provider Internal Medicine Cardiovascular Disease
DX: I25.5 Ischemic cardiomyopathy (principal); R07.9 Chest pain, unspecified; R06.02 Shortness of breath
CPT/HCPCS: 78452; 93016; 93018; 93320; 93325; 93350

== ENCOUNTER → 2024-11-07 21:24 | Outpatient (BNV) | payer OTHER, SELFPAY ==
[2022-10-22 13:00] VITALS: BP 128/72; BP 148/88; BMI 63.7
[2023-01-30 14:13] VITALS: BP 140/60
== END ==
PROVIDERS: Admitting Provider Student in an Organized Health Care Education/Training Program; Emergency Provider Emergency Medicine; PCP Family Medicine; Visit Provider Physician Assistant
DX: I10 Essential (primary) hypertension (principal); R07.89 Other chest pain
CPT/HCPCS: 99223; 99232; 99239

== ENCOUNTER → 2024-11-07 21:24 | Outpatient (BNV) | payer OTHER, SELFPAY ==
[2022-10-22 13:00] VITALS: BP 128/72; BP 148/88; BMI 63.7
[2023-01-30 14:13] VITALS: BP 140/60
== END ==
PROVIDERS: Admitting Provider Student in an Organized Health Care Education/Training Program; Emergency Provider Emergency Medicine; PCP Family Medicine; Visit Provider Urology
DX: N20.0 Calculus of kidney (principal)
CPT/HCPCS: 99222; 99232

== ENCOUNTER → 2024-11-07 21:24 | Outpatient (BNV) | payer OTHER, SELFPAY ==
[2022-10-22 13:00] VITALS: BP 128/72; BP 148/88; BMI 63.7
[2023-01-30 14:13] VITALS: BP 140/60
== END ==
PROVIDERS: Admitting Provider Student in an Organized Health Care Education/Training Program; Emergency Provider Emergency Medicine; PCP Family Medicine; Visit Provider Internal Medicine Cardiovascular Disease
DX: I5A Non-ischemic myocardial injury (non-traumatic) (principal)
CPT/HCPCS: 93010; 99222

== ENCOUNTER 2024-11-23 08:19 | Outpatient (AMB) | payer OTHER, SELFPAY ==
[2022-10-22 13:00] VITALS: BP 128/72; BP 148/88; BMI 63.7
[2023-01-30 14:13] VITALS: BP 140/60
[2024-11-23 08:29] VITALS: BP 124/82; PULSE 63; BMI 57.3
--- NOTE | 2024-11-23 08:29 | A.OFFVIS_ITS ---
Vital Signs 11/23/24 08:29 Height 5 ft 6 in Weight 354 lb 15.108 oz BMI 57.3 BP 124/82 Blood Pressure Location Lt brachial Position Sitting Pulse 63 Intake Visit Reasons: [facility] Follow up Intake Note: Follow-up [facility] ED was in for Kidney stones but had elevated troponin Wet Pour Supervisor Required: Yes Wet Pour Supervisor Services: Wet Pour Supervisor Offered & Declined Armament Installer: Armament Installer Present Accompanied by: Daughter Allergies penicillin G [PENICILLIN G] Allergy (Severe, Verified 11/07/24 16:14) DIFFICULTY BREATHING semaglutide [From Ozempic] Adverse Reaction (Severe, Verified 11/07/24 16:14) Stomach Upset Medication List - Last Reconciled 11/23/24 by Mars Hutchinson MD albuterol sulfate 90 mcg/actuation (Ventolin HFA) 2 puffs PO Q4-6H PRN albuterol sulfate 2.5 mg inhalation Q4-6H PRN allopurinol 100 mg PO DAILY 90 days amlodipine (Norvasc) 5 mg PO DAILY aspirin 1 tab PO DAILY atorvastatin (Lipitor) 80 mg PO BEDTIME benzoyl peroxide 10% 1 appl topical DAILY blood pressure test kit-large As directed cholecalciferol (vitamin D3) 50 mcg PO DAILY clopidogrel (Plavix) 75 mg PO DAILY econazole nitrate 1% 1 appl topical BID emtricitabine-tenofovir (TDF) 200-300 mg 1 tab PO DAILY ezetimibe 10 mg PO DAILY famotidine 40 mg PO BEDTIME PRN fluticasone propionate 50 mcg/actuation 2 sprays intranasal DAILY fluticasone propionate 110 mcg/actuation 2 puffs inhalation BID hydrochlorothiazide 12.5 mg PO DAILY hydroquinone 4% 1 appl topical BID isosorbide mononitrate ER 60 mg PO DAILY lisinopril 30 mg PO DAILY metformin ER 500 mg PO DAILY@1700 metoprolol succinate ER 50 mg PO DAILY metronidazole 0.75% 1 appl topical DAILY PRN omeprazole 40 mg (2 x 20 mg) PO DAILY pyridoxine (vitamin B6) 100 mg PO DAILY 90 days tirzepatide (weight loss) (Zepbound) 2.5 mg subcut TH topiramate 50 mg PO BID tramadol 50 mg PO Q8H PRN HPI Comments Details: Blaire comes for follow-up after recent hospitalization for renal colic at [facility] h time she had myocardial injury. Subsequent myocardial perfusion imaging showed mild intensity ischemia in mid to distal LAD territory. She was managed medically. Today the daughter says and patient confirmed that she never had chest pain during the entire episode. Since then she has not she was trying to slow down smoking but has not quit. She had also trying to lose weight. She takes all her medications religiously. No bleeding issues or neurologic events. Her colonoscopy was scheduled for today has been postponed. She is seeing Urology coming Friday. She denies any heart failure symptoms. No lightheadedness, syncope, prolonged palpitations. [facility] Medical History Morbid obesity Hidradenitis suppurativa CAD (coronary artery disease) Subsequent non-ST elevation myocardial infarction (NSTEMI) within 4 weeks of initial infarction Non-ST elevation NH (NSTEMI) YAMILETH on CPAP Hyperlipidemia PTSD (post-traumatic stress disorder) Fatty liver Smoker Depression Obesity Leukocytosis Frequent UTI Asthma Mass of throat Chronic pain Kidney stone Migraine HTN (hypertension) Surgical History H/O excision of mass (06/28/24) Hx of cystoscopy Stented coronary artery History of heart artery stent History of lumpectomy of left breast (10/22/21) History of lithotripsy History of endometrial ablation Hx of colonoscopy History of breast lump/mass excision History of tonsillectomy H/O: hysterectomy Family History Father Hypertension Mother Hypertension Osteoporosis Hx of bilateral cataract extraction Paternal Grandmother Diabetes Sister Asthma Maternal Uncle Throat cancer Maternal Aunt Ovarian cancer Breast cancer Social History Household Members: Family Housing: Apartment Are you a primary healthcare applications analyst to a significant other at home: No Do you presently have visiting nurse or other home services: Yes ([employer]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) Alcohol intake: never Comment: pt refusing alarms Patient Tobacco Use Status: Current everyday Tobacco user Tobacco use type: Cigarette Cigarette Packs Per Day: 0.5 Cigarettes Per Day: 10 Years Smoked: 30 e-Cigarette/Vaping Use: Never Used Second Hand Smoke Exposure: No Advance Directives Date on File: 10/28/22 service: No Current occupational status: unemployed and retired Review of Systems Const Denies chills, Denies fatigue, Denies fever(s), Denies frequent falls, Denies weakness, Denies weight gain and Denies weight loss ENT Denies dizziness Card Denies chest pain, Denies leg edema, Denies lightheadedness, Denies palpitations, Denies dyspnea, Denies dyspnea on exertion, Denies orthopnea and Denies other (loss of consciousness) Resp Denies cough, Denies dyspnea and Denies dyspnea on exertion GI Denies hematochezia and Denies change in stool character Musc Denies abnormal gait, Denies muscle weakness, Denies numbness, Denies radiating pain into limb and Denies tingling Neuro Denies abnormal gait, Denies dizziness, Denies frequent falls, Denies numbness, Denies tingling and Denies weakness Endo Denies fatigue and Denies palpitations Physical Exam Vital Signs: Last Vital Signs Pulse 63 11/23/24 08:29 BP 124/82 11/23/24 08:29 BMI result Body Mass Index 57.3 Const Other: morbidly obese General: cooperative, healthy appearing, comfortable and no acute distress Nutritional Appearance: obese morbidly obese Orientation/consciousness: patient oriented x3 Neck Neck: Yes normal visual inspection Resp Effort & Inspection: normal respiratory effort Auscultation: clear to auscultation bilaterally, no rales, no rhonchi and no wheezes Cardio Jugular venous distension: no JVD Rate: regular rate Rhythm: regular rhythm Heart sounds: S1 normal heart sound present, S2 normal heart sound present, no murmurs and no rubs Neuro General: patient oriented x3 Extrem General: Yes normal to inspection and No no pedal edema Psych Appearance: grossly normal Mental Status: mental status grossly normal Speech and movement: Normal speech and movement present Assessment & Plan Assessment & Plan (1) CAD (coronary artery disease): Comment: Lad stent Code(s): I25.10 - Atherosclerotic heart disease of [place] coronary artery without angina pectoris Category: Medical Plan: Coronary artery disease with prior drug-eluting stent to proximal LAD with recent admission with renal colic which led to some myocardial injury. Most likely stress related related to significant pain. Subsequent myocardial perfusion imaging shows small area of mild intensity mid to distal LAD territory ischemia. She has currently no symptoms of angina on current antianginal therapy and current medical therapy. Continue dual antiplatelet therapy for at least 6 months. She is encouraged to continue to participate in physical activity as tolerated. If she develops any anginal sounding chest discomfort will require invasive procedure. Continue high-intensity statin therapy. Complete smoking cessation was advised. Continue aggressive blood pressure control. Encouraged to continue to participate in weight loss program. I would hold off on colonoscopy for at least another 4-6 weeks. At which point time she can be scheduled for outpatient colonoscopy with intermediate risk for perioperative cardiovascular morbidity mortality. (2) HTN (hypertension): Code(s): I10 - Essential (primary) hypertension Category: Medical Qualifiers: Hypertension type: primary hypertension Qualified Code(s): I10 - Essential (primary) hypertension Plan: Hypertension which is currently well optimized. Continue current therapy. Importance of good blood pressure control was discussed. Low-salt diet was discussed. Continue participate in aggressive lifestyle modification with aggressive weight loss program as well as smoking cessation and regular physical activity. Will follow up in the clinic in 3 months time, sooner p.r.n.. Thank you for allowing me to partake in her care Coding Level of Care Code Est Pt Level 4 (17748) Complex EM visit Add On G2211 Diagnoses CAD (coronary artery disease) I25.10 Primary hypertension I10 Hypertension type: primary hypertension
--- OUTSIDE RECORDS SUMMARY | 2024-11-23 08:33 | XMS_ITS | Data Portability ---
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 Lab rapid flu (A+B) 2024 025 [facility], [address] [place] [address], [phone] 5 15:45:24 rapid SARS CoV 2 Ag, QL IA, respiratory specimen [address], [phone] 5 15:45:08 Referral None recorded. Procedures None recorded. Surgeries None recorded. Imaging None recorded. Medication Orders albuterol sulfate 2.5 mg/3 mL (0.083 %) solution for nebulizatio n 2024 025 [facility] #[id number], [address] [place], [address], 18:27:03 Patient TargetsNo targets recorded. Patient InstructionsNo [...] Name and Address Organization Details Recorded Time 71813 aspirin medicatio n Not available Not available Not available 10/05/2024 1191 Rx[facility] Not Available [facility] - production 5 13:36:43 94293 penicilli n V Not available Not available Not available Not available 10/05/2024 7984 RxNorm Not Available [facility] - production 5 13:36:43 23248 penicilli n G procaine medicatio n Not available Not available Not available 10/05/2024 7983 RxNorm Not Available [facility] - production 5 13:36:43 69846 penicilli n G benzathin e medicatio n [...] % 172.72 cm 18 /min 98.4 [degF] 298342. 272 g 131 mm[Hg] 78 mm[Hg] Not Available [facility] - production 14:56:14 Social History None recorded. Functional Status None recorded. Mental Status None recorded. Family History Nothing Reported. Medical History No medical history recorded. Gynecological HistoryNo gynecological history recorded. Obstetrics History GPAL:G 0 P 0 0 0 0 Past Encounters Encounter ID Performer Location Encounter Start Date Encounter Closed Date Diagnosis/Indication Diagnosis SNOMED-CT Code Diagnosis ICD10 Code Diagnosis Note [id number] Reese Jarvis MD [facility] - [facility] [address] [place] [phone] 10/05/2024 14:55:01 10/07/2024 08:39:41 Wheezing [id number] R06.2 Health Concerns Section Related Observation LastModified by Organization Detai ls LastModified Time None Recorded Concern Status LastModified by Organization Details LastModified Time None Recorded Advance Directives Directive None Recorded Payers Encounter Date Sequence Insurance Name Policy Number Policy Parra Covered Member ID Parra Member ID Guarantor Name 10/05/2024 1 [employer] - DOS ON OR AFTER 2022 - DUAL ELIGIBLE - LONGTERM OPTIONS AND ONE CARE (MEDICARE REPLACEMENT/ADV ANTAGE - HMO) Blaire Santosminnie Jean [id number] Blaire Maria Luisa Jean Notes Date Note Type Note Provider Name and Address Organization Details Recorded Time 10/05/2024 text/html HPI: Call returned to Blaire Jean to triage below. Reports having Headache, Fever, Body Aches, Sore Throat, Runny Nose x 3 days. Per pt seen at [facility] on Friday. Per pt seen for CP. Had testing done while in ER. Pt had negative homekit for COVID-19 last night. Reports having SOB with exertion. No wheezing. Pt speaking in clear full sentences. Pt advised of disposition, unable to come into [facility]. Agrees to [facility] for evaluation. Confirmed demographics and allergies. .................. .................. .................. .................. .................. .................. .................. ............... [facility] Nurse Triage Notes (Radha Martinez - RN): Chief Complaints: Cough, Fever/chills, Headache, Sore throat, Breathing problems PMH: Hypertension, Asthma, Coronary Artery Disease PMH Reviewed at 10/05/2024 - 13:36 Allergies Reviewed at 10/05/2024 - 13:36 Comments: [facility] RN did not require any additional information to process this visit. [facility] Organization Information for Ankita Castillo Business Legal Name: [employer]? Address: [address] [place] [id number], Housing Officer: Marino Dow MD CLIA No.: [id number] [facility] POC Test Results from Ankita Castillo Rapid COVID antigen (14:56:21) COVID: - Rapid influenza antigen (14:56:24) Flu: - Rapid strep test (14:56:25) Strep: - .................. .................. .................. .................. .................. .................. .................. ............... [facility] Note From Ankita Castillo: Sent to a call for a pt complaining of URI symptoms. SC8 arrives on scene, pt is alert and oriented, airway is patent. Pt complains of URI symptoms since Friday. Pt states she had chest tightness Friday-Friday, but was evaluated at [facility] ED on Friday. Pt states she had [...] Lung sounds: clear bilaterally; SpO2:98% RA; [facility] consulted and sends script to pt's pharmacy for Albuterol neb solutions. Red flags discussed. Pt has no further questions. .................. .................. .................. .................. .................. .................. .................. ............... [facility] Consulted: Reese Jarvis .................. .................. .................. .................. .................. .................. .................. ............... Disposition: Fulfilled Reese Jarvis MD [address] [facility],[address], [place], [phone], BHAVIN - BERNADINE CADENA 10/06/2024 15:39:31 OBGyn Episode No OBEpisode recorded.
== END 2024-11-23 08:52 | disposition home or self-care (01) ==
LOC: HO.HCS 08:19
PROVIDERS: PCP Family Medicine; Visit Provider Internal Medicine Cardiovascular Disease
DX: I25.10 Atherosclerotic heart disease of native coronary artery without angina pectoris (principal); I10 Essential (primary) hypertension
CPT/HCPCS: 99214; G2211

== ENCOUNTER → 2024-11-23 08:19 | Outpatient (BNVA) | payer OTHER, SELFPAY ==
[2022-10-22 13:00] VITALS: BP 128/72; BP 148/88; BMI 63.7
[2023-01-30 14:13] VITALS: BP 140/60
== END ==
PROVIDERS: PCP Family Medicine; Visit Provider Internal Medicine Cardiovascular Disease
DX: I25.10 Atherosclerotic heart disease of native coronary artery without angina pectoris (principal); I10 Essential (primary) hypertension
CPT/HCPCS: 99212

== ENCOUNTER 2024-11-25 14:36 | Emergency (ER) | payer OTHER, SELFPAY ==
[2022-10-22 13:00] VITALS: BP 128/72; BP 148/88; BMI 63.7
[2023-01-30 14:13] VITALS: BP 140/60
[2024-11-25] VITALS (8 sets, daily range): BP systolic 116–157; BP diastolic 62–83; PULSE 51–70; RESP 12–20; TEMP 36.4–36.6; O2SAT 95–100; BMI 55.1; BMI 56.1
--- NOTE | ~2024-11-25 | XR_ITS ---
EXAMINATION: XR CHEST 2 VIEWS HISTORY: cp COMPARISON: Comparison is made with the prior examination dated 11/07/2024. FINDINGS: PA and lateral views of the chest are submitted. The lungs are expanded and clear. There is no pleural effusion, pneumothorax, or pulmonary vascular congestion. The heart is normal in size. There is degenerative disc disease of the spine. XR/XR chest 2V IMPRESSION: No acute cardiopulmonary abnormality. Electronically signed by: Marcus Louis MD 11/25/2024 03:19 PM EDT
--- NOTE | 2024-11-25 14:39 | ECG_ITS ---
Test Reason : chest pain Blood Pressure : */* mmHG Vent. Rate : 69 BPM Atrial Rate : 69 BPM P-R Int : 178 ms QRS Dur : 78 ms QT Int : 390 ms P-R-T Axes : 59 25 33 degrees QTcB Int : 417 ms Normal sinus rhythm Cannot rule out Anterior infarct (cited on or before 07-Nov-2024) Abnormal ECG When compared with ECG of 07-Nov-2024 16:36, Questionable change in initial forces of Septal leads Referred By: Ankita Dickens Electronically Signed By: Brent Aleman
--- NOTE | 2024-11-25 14:44 | ED_ITS ---
HPI - Chest Pain General Chief Complaint: Chest Pain Stated Complaint: cp Time Seen by Provider: 11/25/24 16:52 Source: patient Mode of arrival: ambulatory Limitations: no limitations History of Present Illness ED Provider: Darius Arguelles DO HPI narrative: 49-year-old female who is Uzbek-speaking with past medical history of TX x2 status post 2 stents as well as myocardial perfusion imaging recently performed showing ischemia in the mid to distal LAD territory manage medically presents to the ED for chest squeezing pressure located over the left-sided chest which radiates to the left shoulder and left arm down to the elbow, has been intermittent and specifically worsened with exertion and improved with rest. She does report a 10/10 pain with exertion and currently a 7/10 pain. She has not taken any aspirin today. She continues to smoke tobacco but is down from 3 packs a day to 15 cigarettes per day. She denies illicit drug use. She reports associated dyspnea pain and exertion as well as nausea but denies diaphoresis or vomiting. Is any injuries to her chest. Colonoscopy has been postponed due to cardiac risk factors further evaluation due to blood in her stool. Related Data Home Medications ?Medication ?Instructions ?Recorded ?Confirmed albuterol sulfate 90 mcg/actuation 2 puff PO Q4-6H PRN Wheezing 12/01/20 11/23/24 aerosol inhaler (Ventolin HFA) atorvastatin 80 mg tablet (Lipitor) 80 mg PO BEDTIME 12/01/20 11/23/24 fluticasone propionate 50 2 spray intranasal DAILY 12/01/20 11/23/24 mcg/actuation nasal spray,suspension blood pressure test kit-large #1 ea 12/19/20 06/28/24 topiramate 50 mg tablet 50 mg PO BID 12/19/20 11/23/24 cholecalciferol (vitamin D3) 50 50 mcg PO DAILY 03/13/22 11/23/24 mcg (2,000 unit) capsule lisinopril 30 mg tablet 30 mg PO DAILY 07/01/22 11/23/24 metformin 500 mg tablet,extended 500 mg PO DAILY@1700 07/01/22 11/23/24 release 24 hr metoprolol succinate 50 mg 50 mg PO DAILY 07/01/22 11/23/24 tablet,extended release 24 hr tramadol 50 mg tablet 50 mg PO Q8H PRN severe pain 10/24/22 11/23/24 metronidazole 0.75 % topical gel 1 appl topical DAILY PRN Rash 10/25/22 11/23/24 albuterol sulfate 2.5 mg/3 mL 2.5 mg inhalation Q4-6H PRN 11/15/22 11/23/24 (0.083 %) solution for nebulization Wheezing aspirin 81 mg chewable tablet 1 tab PO DAILY 11/13/23 11/23/24 fluticasone propionate 110 2 puff inhalation BID 11/13/23 11/23/24 mcg/actuation HFA aerosol inhaler famotidine 40 mg tablet 40 mg PO BEDTIME PRN heartburn 02/13/24 11/23/24 benzoyl peroxide 10 % topical 1 appl topical DAILY 11/08/24 11/23/24 cleanser econazole nitrate 1 % topical cream 1 appl topical BID 11/08/24 11/23/24 emtricitabine 200 mg-tenofovir 1 tab PO DAILY 11/08/24 11/23/24 disoproxil fumarate 300 mg tablet hydroquinone 4 % topical cream 1 appl topical BID 11/08/24 11/23/24 tirzepatide (weight loss) 2.5 2.5 mg subcut TH 11/08/24 11/23/24 mg/0.5 mL subcutaneous pen injector (Zepbound) Previous Rx's ?Medication ?Instructions ?Recorded isosorbide mononitrate 60 mg 60 mg PO DAILY #30 tabs 02/12/24 tablet,extended release 24 hr pyridoxine (vitamin B6) 100 mg 100 mg PO DAILY 90 days #90 tabs 03/25/24 tablet allopurinol 100 mg tablet 100 mg PO DAILY 90 days #90 tabs 06/14/24 ezetimibe 10 mg tablet 10 mg PO DAILY #30 tabs 07/22/24 amlodipine 5 mg tablet (Norvasc) 5 mg PO DAILY #90 tabs 11/09/24 clopidogrel 75 mg tablet (Plavix) 75 mg PO DAILY #90 tabs 11/09/24 hydrochlorothiazide 12.5 mg tablet 12.5 mg PO DAILY #90 tabs 11/19/24 omeprazole 20 mg capsule,delayed 40 mg (2 x 20 mg) PO DAILY #60 caps 11/19/24 release Allergies Allergy/AdvReac Type Severity Reaction Status Date / Time penicillin G [PENICILLIN G] Allergy Severe DIFFICULTY Verified 11/25/24 14:46 BREATHING semaglutide [From Ozempic] AdvReac Severe Stomach Verified 11/25/24 14:46 Upset Review of Systems 2 Review of Systems: Yes all other systems are reviewed and are negative [facility] Past Medical History Medical History Morbid obesity Hidradenitis suppurativa CAD (coronary artery disease) Subsequent non-ST elevation myocardial infarction (NSTEMI) within 4 weeks of initial infarction Non-ST elevation TX (NSTEMI) YAMILETH on CPAP Hyperlipidemia PTSD (post-traumatic stress disorder) Fatty liver Smoker Depression Obesity Leukocytosis Frequent UTI Asthma Mass of throat Chronic pain Kidney stone Migraine HTN (hypertension) Surgical History H/O excision of mass (06/28/24) Hx of cystoscopy Stented coronary artery History of heart artery stent History of lumpectomy of left breast (10/22/21) History of lithotripsy History of endometrial ablation Hx of colonoscopy History of breast lump/mass excision History of tonsillectomy H/O: hysterectomy Family History Family History Father Hypertension Mother Hypertension Osteoporosis Hx of bilateral cataract extraction Paternal Grandmother Diabetes Sister Asthma Maternal Uncle Throat cancer Maternal Aunt Ovarian cancer Breast cancer Social History Social History Household Members: Family Housing: Apartment Are you a primary child care supervisor to a significant other at home: No Do you presently have visiting nurse or other home services: Yes (calibration engineer services) Alcohol intake: never Comment: pt refusing alarms Patient Tobacco Use Status: Current everyday Tobacco user Tobacco use type: Cigarette Cigarette Packs Per Day: 0.5 Cigarettes Per Day: 10 Years Smoked: 30 Smoked in Last 30 Days: Yes e-Cigarette/Vaping Use: Never Used Second Hand Smoke Exposure: No Use of substances other than those prescribed or required for medical reasons: No Advance Directives: Yes Advance Directives on File: Yes Advance Directives Date on File: 10/28/22 service: No Current occupational status: unemployed and retired Physical Exam 2 Vital Signs: Vital Signs: Last Vital Signs Temp 97.5 F 11/25/24 18:55 Pulse 51 11/25/24 22:30 Resp 16 11/25/24 22:30 BP 127/62 11/25/24 22:30 Pulse Ox 100 11/25/24 22:30 O2 Del Method Room Air 11/25/24 22:30 BMI result Body Mass Index 56.1 Constitutional: ?Alert, oriented, speaking in full sentences HEENT: ?Normocephalic, atraumatic. ?Moist mucous membranes Eyes: ?PERRL, EOMI Neck: ?Supple, nontender Chest: ?No chest wall tenderness Respiratory: ?Lungs clear to auscultation, no increased work of breathing Cardio: ?Regular rate and rhythm, no murmur, 2+ radial and DP pulses symmetrically GI: ?Soft, nondistended, nontender Back: ?Normal range of motion, nontender Skin: ?No rash, no lesions Neuro: ?Alert and oriented to person, place and time, moves all 4 extremities, no focal deficits Extremities: ?No swelling or tenderness, full range of motion Psych: ?Calm, alert and cooperative, appropriate behavior Course Course Course Narrative: This is a Rapid Medical Exam performed in triage by Ankita Dickens PA-C. Full HPI, ROS and PE to be performed by primary ED provider. 49 yo F w/PMHx CAD s/p stenting, obesity, HTN, HLD, presenting to the ED c/o CP x 2 days w/ assoc tingling & nausea. +assoc SOB & lightheadedness. PE: nontoxic appearing, talking in complete sentences. Ambulating with steady gait Plan: EKG, labs, UA, orthostatics, CXR Medications Administered Generic Name Dose Route Start Last Admin Trade Name Freq PRN Reason Stop Dose Admin Heparin Sodium/Sodium Chloride 25,000 unit in 250 mls @ 0 mls/hr 11/25/24 21:15 11/25/24 21:18 Heparin Sodium,Porcine/1/2ns IVCONT 6.16 units/kg/hr .Q0M ANDREW 10 mls/hr Administration Protocol Per Protocol Nitroglycerin 0.4 mg 11/25/24 17:18 11/25/24 18:59 Nitroglycerin 0.4 Mg Tab.Subl SUBLINGUAL 0.4 mg Q5MX3 PRN Administration Chest Pain Discontinued Medications Generic Name Dose Route Start Last Admin Trade Name Freq PRN Reason Stop Dose Admin Aspirin 324 mg 11/25/24 17:18 11/25/24 18:20 Aspirin 81 Mg Tab.Chew PO 11/25/24 17:19 324 mg ONCE ONE Administration Heparin Sodium (Porcine) 4,000 unit 11/25/24 20:19 11/25/24 21:03 Heparin Sodium,Porcine 5,000 Unit/Ml Vial IVPUSH 11/25/24 20:20 4,000 unit ONCE ONE Administration Medical Decision Making Medical Decision Making [facility] Narrative: Patient presenting with ongoing chest pressure. As an extensive cardiac history with recent perfusion study showing ischemia in the LAD which was managed medically. Her ECG shows Some change from prior which we will repeat. Her initial troponin is unremarkable. I do not suspect other dangerous cause of chest discomfort today given the history and physical exam including PE, tamponade, heart failure, esophageal rupture or dissection. We will address her symptoms with aspirin and nitroglycerin to evaluate for improvement and chest pressure as well as discuss with cardiology. We will repeat 2nd troponin to trend. Repeat troponin unremarkable. Repeat ECG shows no changes. Case reviewed with cardiology including ECG and plan. Because of the patient's coronary history and improvement from a 6/10 to a 0/10 with 1 dose of sublingual nitroglycerin, the patient is deemed high risk and will require catheterization. Heparin bolus and drip. Case discussed with transfer center who agrees with plan and accepts care to hospitalist. Updated patient who also agrees with plan. Admission/Observation Consideration of admission/observation: Escalation of care including admission/observation considered Lab Data [facility] Lab Attestation statement: I reviewed the patient's lab results. 11/25/24 15:03 11/25/24 15:03 Labs: Lab Results 11/25/24 11/25/24 11/25/24 Range/Units 15:02 15:03 17:55 WBC 7.2 (4.8-10.8) X10*3/uL RBC 4.21 (4.20-5.50) X10*6/uL Hgb 13.0 (12.0-16.0) g/dl Hct 38.1 (37.0-47.0) % MCV 90.5 (80.0-98.0) fL MCH 30.9 (27.0-33.0) pg MCHC 34.1 (31.0-35.0) g/dl RDW 14.3 (11.0-16.0) % Plt Count 286 (160-400) X10*3/uL MPV 9.4 (9.4-12.3) fL Immature Gran % (Auto) 0.3 (0.0-0.4) % Neut % (Auto) 50.9 (45-73) % Lymph % (Auto) 37.0 (20-40) % [place] % (Auto) 6.5 (2-11) % Eos % (Auto) 4.2 H (0-4) % Baso % (Auto) 1.1 (0-2) % Lymph # (Auto) 2.7 (1.2-4.9) X10*3/uL [place] # (Auto) 0.5 (0.1-1.2) X10*3/uL Eos # (Auto) 0.3 (0.0-0.4) X10*3/uL Baso # (Auto) 0.1 (0.0-0.2) X10*3/uL Abs Immat Gran (auto) 0.02 (0.00-0.03) X10*3/uL Absolute Neuts (auto) 3.7 (2.0-8.3) x10*3/uL Absolute Nucleated RBC 0.000 (0.0-0.012) X10*3/uL Nucleated RBC % (auto) 0.0 (0.0-0.2) /100WBC PT (10.9-12.4) SEC INR (0.9-1.1) APTT (26.0-36.8) SEC Sodium 140 (135-145) mmol/L Potassium 3.5 (3.3-5.1) mmol/L Chloride 111 H (96-108) mmol/L Carbon Dioxide 21 L (22-29) mmol/L Anion Gap 12 (12-20) BUN 13 (9-16) mg/dL Creatinine 1.04 (0.5-1.4) mg/dL Estim Creat Clear Calc 105.2 Estimated GFR 57 Random Glucose 139 H (60-115) mg/dL Calcium 8.8 (8.4-10.2) mg/dL Magnesium 1.9 (1.6-2.6) mg/dL Total Bilirubin 0.3 (0.0-1.0) mg/dL Direct Bilirubin 0.1 (0.0-0.5) mg/dL AST 22 (5-31) U/L ALT 16 (0-31) U/L Alkaline Phosphatase 84 (39-117) U/L Troponin I High Sens < 2.7 D < 2.7 (<3.5-17.0) ng/L B-Natriuretic Peptide 27 (<100) pg/mL Total Protein 7.3 (6.5-8.0) g/dL Albumin 3.6 (3.5-5.0) g/dL Influenza Type A (PCR) NEGATIVE (Negative) Influenza Type B (PCR) NEGATIVE (Negative) RSV RNA Qual (PCR) NEGATIVE (Negative) SARS-CoV-2 RNA (RT-PCR) NEGATIVE (Negative) 11/25/24 Range/Units 21:01 WBC (4.8-10.8) X10*3/uL RBC (4.20-5.50) X10*6/uL Hgb (12.0-16.0) g/dl Hct (37.0-47.0) % MCV (80.0-98.0) fL MCH (27.0-33.0) pg MCHC (31.0-35.0) g/dl RDW (11.0-16.0) % Plt Count (160-400) X10*3/uL MPV (9.4-12.3) fL Immature Gran % (Auto) (0.0-0.4) % Neut % (Auto) (45-73) % Lymph % (Auto) (20-40) % Mer[place] % (Auto) (2-11) % Eos % (Auto) (0-4) % Baso % (Auto) (0-2) % Lymph # (Auto) (1.2-4.9) X10*3/uL [place] # (Auto) (0.1-1.2) X10*3/uL Eos # (Auto) (0.0-0.4) X10*3/uL Baso # (Auto) (0.0-0.2) X10*3/uL Abs Immat Gran (auto) (0.00-0.03) X10*3/uL Absolute Neuts (auto) (2.0-8.3) x10*3/uL Absolute Nucleated RBC (0.0-0.012) X10*3/uL Nucleated RBC % (auto) (0.0-0.2) /100WBC PT 12.3 (10.9-12.4) SEC INR 1.1 (0.9-1.1) APTT 37.4 H (26.0-36.8) SEC Sodium (135-145) mmol/L Potassium (3.3-5.1) mmol/L Chloride (96-108) mmol/L Carbon Dioxide (22-29) mmol/L Anion Gap (12-20) BUN (9-16) mg/dL Creatinine (0.5-1.4) mg/dL Estim Creat Clear Calc Estimated GFR Random Glucose (60-115) mg/dL Calcium (8.4-10.2) mg/dL Magnesium (1.6-2.6) mg/dL Total Bilirubin (0.0-1.0) mg/dL Direct Bilirubin (0.0-0.5) mg/dL AST (5-31) U/L ALT (0-31) U/L Alkaline Phosphatase (39-117) U/L Troponin I High Sens (<3.5-17.0) ng/L B-Natriuretic Peptide (<100) pg/mL Total Protein (6.5-8.0) g/dL Albumin (3.5-5.0) g/dL Influenza Type A (PCR) (Negative) Influenza Type B (PCR) (Negative) RSV RNA Qual (PCR) (Negative) SARS-CoV-2 RNA (RT-PCR) (Negative) Independent Interpretation I performed an independent interpretation of an: EKG and Plain X-Ray (Chest x- ray per my independent interpretation shows no acute cardiopulmonary abnormalities.) Interpretation: Normal sinus rhythm at 69 beats per minute, normal axis, unremarkable intervals, no diagnostic ST wave abnormalities some subtle ST depression in lead 3 and T- wave flattening in AVF, compared to prior dated 11/07/2024, T-wave flattening in AVF is new, otherwise no significant changes. Discharge Plan Discharge Clinical Impression: Chest pain, Angina at rest Patient Disposition: [facility] Transfer Details: [facility], Dr. Moran Prescriptions: No Action allopurinol 100 mg tablet 100 mg PO DAILY 90 Days Qty: 90 1RF ezetimibe 10 mg tablet 10 mg PO DAILY Qty: 30 6RF omeprazole 20 mg capsule,delayed release(DR/EC) 40 mg PO DAILY Qty: 60 5RF hydrochlorothiazide 12.5 mg tablet 12.5 mg PO DAILY Qty: 90 4RF albuterol sulfate [Ventolin HFA] 90 mcg/actuation HFA aerosol inhaler 2 puff PO Q4-6H PRN (Reason: Wheezing) fluticasone propionate 50 mcg/actuation spray,suspension 2 spray intranasal DAILY atorvastatin [Lipitor] 80 mg Tablet 80 mg PO BEDTIME lisinopril 30 mg tablet 30 mg PO DAILY metformin 500 mg tablet extended release 24 hr 500 mg PO DAILY@1700 metronidazole 0.75 % gel 1 appl topical DAILY PRN (Reason: Rash) famotidine 40 mg tablet 40 mg PO BEDTIME PRN (Reason: heartburn) hydroquinone 4 % cream 1 appl topical BID benzoyl peroxide 10 % cleanser 1 appl topical DAILY emtricitabine-tenofovir (TDF) 200-300 mg tablet 1 tab PO DAILY econazole nitrate 1 % cream 1 appl topical BID Zepbound 2.5 mg/0.5 mL pen injector 2.5 mg subcut TH amlodipine [Norvasc] 5 mg tablet 5 mg PO DAILY Qty: 90 0RF clopidogrel [Plavix] 75 mg tablet 75 mg PO DAILY Qty: 90 0RF topiramate 50 mg tablet 50 mg PO BID (DME) blood pressure test kit-large Kit See Rx Instructions .ROUTE DIRECTED Qty: 1 Rx Instructions: As directed tramadol 50 mg tablet 50 mg PO Q8H PRN (Reason: severe pain) cholecalciferol (vitamin D3) 50 mcg (2,000 unit) capsule 50 mcg PO DAILY metoprolol succinate 50 mg tablet extended release 24 hr 50 mg PO DAILY aspirin 81 mg tablet,chewable 1 tab PO DAILY fluticasone propionate 110 mcg/actuation HFA aerosol inhaler 2 puff inhalation BID albuterol sulfate 2.5 mg /3 mL (0.083 %) solution for nebulization 2.5 mg inhalation Q4-6H PRN (Reason: Wheezing) isosorbide mononitrate 60 mg tablet extended release 24 hr 60 mg PO DAILY Qty: 30 5RF Rx Instructions: Dose increased pyridoxine (vitamin B6) 100 mg tablet 100 mg PO DAILY 90 Days Qty: 90 3RF Print Language: Uzbek
[2024-11-25 15:09] LABS: MANUAL DIFF FLAG NO
[2024-11-25 15:11] LABS: Basophils Absolute Auto 0.1 X10*3/uL (0.0-0.2); Basophils Percent Auto 1.1 % (0-2); Eosinophils Absolute Auto 0.3 X10*3/uL (0.0-0.4); Eosinophils Percent Auto 4.2 % (0-4); Hematocrit 38.1 % (37.0-47.0); Imm Gran Abs Auto 0.02 X10*3/uL (0.00-0.03); Imm Gran Pct Auto 0.3 % (0.0-0.4); Lymphocytes Absolute Auto 2.7 X10*3/uL (1.2-4.9); Mean Corpuscular HGB Conc 34.1 g/dl (31.0-35.0); Mean Corpuscular Hemoglobin 30.9 pg (27.0-33.0); Mean Corpuscular Volume 90.5 fL (80.0-98.0); Mean Platelet Volume 9.4 fL (9.4-12.3); Monocytes Absolute Auto 0.5 X10*3/uL (0.1-1.2); Monocytes Percent Auto 6.5 % (2-11); Neutrophils Absolute Auto 3.7 x10*3/uL (2.0-8.3); Neutrophils Percent Auto 50.9 % (45-73); Platelet Count 286 X10*3/uL (160-400); Red Blood Count 4.21 X10*6/uL (4.20-5.50); Red Cell Distribution Width 14.3 % (11.0-16.0); White Blood Count 7.2 X10*3/uL (4.8-10.8)
[2024-11-25 15:30] LABS: B Type Natriuretic Peptide 27 pg/mL (<100)
[2024-11-25 15:37] LABS: Alanine Aminotransferase 16 U/L (0-31); Albumin Level 3.6 g/dL (3.5-5.0); Alkaline Phosphatase 84 U/L (39-117); Anion Gap 12 (12-20); Aspartate Amino Transferase 22 U/L (5-31); Bilirubin Direct 0.1 mg/dL (0.0-0.5); Bilirubin Total 0.3 mg/dL (0.0-1.0); Blood Urea Nitrogen 13 mg/dL (9-16); Calcium 8.8 mg/dL (8.4-10.2); Carbon Dioxide 21 mmol/L (22-29); Chloride 111 mmol/L (96-108); Creatinine Clr Calc Pharmacy 105.2; Estimated Glomerular Filt Rate 57; Glucose Random 139 mg/dL (60-115); Magnesium 1.9 mg/dL (1.6-2.6); Potassium 3.5 mmol/L (3.3-5.1); Sodium 140 mmol/L (135-145); Total Protein 7.3 g/dL (6.5-8.0); Troponin-I High Sensitivity < 2.7 ng/L (<3.5-17.0)
[2024-11-25 15:49] LABS: Influenza A PCR NEGATIVE (Negative); Influenza B PCR NEGATIVE (Negative); Resp Syncy Virus RNA Qual PCR NEGATIVE (Negative); SARS COV2 PCR INHOUSE NEGATIVE (Negative)
--- NOTE | 2024-11-25 17:18 | ECG_ITS ---
Test Reason : REPEAT CP Blood Pressure : */* mmHG Vent. Rate : 53 BPM Atrial Rate : 53 BPM P-R Int : 208 ms QRS Dur : 82 ms QT Int : 436 ms P-R-T Axes : 67 53 44 degrees QTcB Int : 409 ms Sinus bradycardia Nonspecific T wave abnormality Abnormal ECG When compared with ECG of 25-Nov-2024 14:38, No significant change was found Referred By: Darius Arguelles Electronically Signed By: Brent Aleman
--- OUTSIDE RECORDS SUMMARY | 2024-11-25 18:15 | XMS_ITS | Encounter Summary ---
Author Organization [facility] Address [address] [place] [address] 7 [place] [address] Care Team Providers Care Perinatal Technician Name Role Phone Carmen Bertrand DO Primary Care Provider [phone] Encounter Details Date Type Department Care Team (Late st Contact Info) Description 09/09/2022 Orders Only [facility] MEDICINE [address] [place] [id number] Azul Albrecht LPN Social History Tobacco Use [...] Care Team (Late st Contact Info) Description 11/30/2024 9:15 AM EDT Office Visit [address] [address] Carmen Bertrand DO [address] [place] [address] 01/24/2025 1:00 PM EDT Clinical Support [address] [address] 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 RN documented as of this encounter Visit Diagnoses Not on filedocumented in this encounter Care Teams Perinatal Technician Relationship Specialty Start Date End Date Carmen Bertrand DO [address] [place] [address] PCP - General Family Medicine 08/18/18 documented as of this encounter
--- OUTSIDE RECORDS SUMMARY | 2024-11-25 18:15 | XMS_ITS | Encounter Summary ---
Author Organization [employer] Address [address] [place] [address] 7[address] [place] [address] Care Team Providers Care Sheet Hanger Name Role Phone Carmen Bertrand DO Primary Care Provider [phone] Encounter Details Date Type Department Care Team (Late st Contact Info) Description 08/13/2022 Orders Only [facility] MED [facility] PEDS [address] [place], [place] [phone] Carmen Perez LPN Social History Tobacco Use [...] Description 11/30/2024 9:15 AM EDT Office Visit [address] [address] Carmen Bertrand DO [address] [place] [address] 01/24/2025 1:00 PM EDT Clinical Support [address] [address] 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 RN documented as of this encounter Visit Diagnoses Not on filedocumented in this encounter Care Teams Sheet Hanger Relationship Specialty Start Date End Date Carmen Bertrand DO [address] [place] [phone] PCP - General Family Medicine 08/18/18 documented as of this encounter
--- OUTSIDE RECORDS SUMMARY | 2024-11-25 18:15 | XMS_ITS | Encounter Summary ---
Author Organization [employer] Address [address] [facility] 7t [place] [address] Care Team Providers Care Auto Heater Mechanic Name Role Phone RajeevCarmen jones Primary Care Provider + [phone] Reason for Visit * Reason Comments Med Refill Encounter Details Date Type Department Care Team ([facility] st Contact Info) Description 01/13/2024 Refill [facility]INE [address] [place] [address] Rox Sutton MD [address] [place] [address] Pain Social History Tobacco Use Types Packs/Day [...] Description 11/30/2024 9:15 AM EDT Office Visit [facility] [address] [place] [address] Carmen Bertrand DO [address] [place] [address] 01/24/2025 1:00 PM EDT Clinical Support [address] [address] 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 RN documented as of this encounter Visit Diagnoses Diagnosis Pain Generalized pain documented in this encounter Additional Health Concerns Assessment Noted Time PHQ-9 Depression Total Score: 21 023 11:26 AM EST documented as of this encounter Care Teams Auto Heater Mechanic Relationship Specialty Start Date End Date Carmen Bertrand DO [address] [place] [phone] PCP - General Family Medicine 08/18/18 documented as of this encounter
--- OUTSIDE RECORDS SUMMARY | 2024-11-25 18:15 | XMS_ITS | Encounter Summary ---
Author Organization [employer] Address [address] [place] [address] Care Team Providers Care Pilot Teacher Name Role Phone Carmen Bertrand DO Primary Care Provider + [phone] Reason for Visit * Reason Comments Med Refill Encounter Details Date Type Department Care Team ([facility] st Contact Info) Description 07/22/2023 Refill [facility] MED & PEDS [address] [place], [place] [phone] Carmen Bertrand DO [address] [place] [address] Hyperlipidemia, unspecified hyperlipidemia type Social History Tobacco [...] Description 11/30/2024 9:15 AM EDT Office Visit [facility] [address] [place] [address] Carmen Bertrand DO [address] [place] [address] 01/24/2025 1:00 PM EDT Clinical Support [address] [address] 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 RN documented as of this encounter Visit Diagnoses Diagnosis Hyperlipidemia, unspecified hyperlipidemia type documented in this encounter Additional Health Concerns Assessment Noted Time PHQ-9 Depression Total Score: 21 023 11:26 AM EST documented as of this encounter Care Teams Pilot Teacher Relationship Specialty Start Date End Date Carmen Bertrand DO [address] [place] [address] PCP - General Family Medicine 08/18/18 documented as of this encounter
--- OUTSIDE RECORDS SUMMARY | 2024-11-25 18:15 | XMS_ITS | Encounter Summary ---
Author Organization [employer] Address [address] [facility] 7t [place] [address] Care Team Providers Care Sample Preparation Supervisor Name Role Phone Carmen Bertrand DO Primary Care Provider + [phone] Reason for Visit * Reason Comments Med Refill Encounter Details Date Type Department Care Team ([facility] Contact Info) Description 10/18/2022 Refill [facility] [address] [place] [address] Carmen Bertrand DO [address] [place] [address] Social History Tobacco Use Types Packs/Day Years [...] Upcoming Encounters Date Type Department Care Team ([facility] Contact Info) Description 11/30/2024 9:15 AM EDT Office Visit [facility] [place] [address] Carmen Bertrand DO [address] [place] [address] 01/24/2025 1:00 PM EDT Clinical Support [facility] [place] [address] 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 RN documented as of this encounter Visit Diagnoses Not on filedocumented in this encounter Additional Health Concerns Assessment Noted Time PHQ-9 Depression Total Score: 16 023 12:22 PM EST documented as of this encounter Care Teams Sample Preparation Supervisor Relationship Specialty Start Date End Date [place] [address] PCP - General Family Medicine 08/18/18 documented as of this encounter
--- OUTSIDE RECORDS SUMMARY | 2024-11-25 18:15 | XMS_ITS | Encounter Summary ---
Author Organization [employer] Address [address] [place] [address] Care Team Providers Care Phosphoric Acid Supervisor Name Role Phone Carmen Bertrand DO Primary Care Provider + [phone] Reason for Visit * Reason Comments Med Refill Encounter Details Date Type Department Care Team ([facility] st Contact Info) Description 05/12/2024 Refill [facility] MED & PEDS [address] [place], [place] [phone] Carmen Bertrand DO [address] [place] [address] Chronic low back pain, unspecified back pain [...] Description 11/30/2024 9:15 AM EDT Office Visit [address] [address] Carmen Bertrand DO [address] [place] [address] 01/24/2025 1:00 PM EDT Clinical Support [address] [address] 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 RN documented as of this encounter Visit Diagnoses Diagnosis Chronic low back pain, unspecified back pain laterality, unspecified whether sciatica present documented in this encounter Additional Health Concerns Assessment Noted Time PHQ-9 Depression Total Score: 22 024 11:00 AM EDT documented as of this encounter Care Teams Phosphoric Acid Supervisor Relationship Specialty Start Date End Date Carmen Bertrand DO [address] [place] [address] PCP - General Family Medicine 08/18/18 documented as of this encounter
--- OUTSIDE RECORDS SUMMARY | 2024-11-25 18:15 | XMS_ITS | Encounter Summary ---
Author Organization [facility] Address [address] [place] [address] [address] [address] Care Team Providers Care Security Solutions Engineer Name Role Phone Carmen Bertrand DO Primary Care Provider + [phone] Reason for Visit * Reason Comments Med Refill Encounter Details Date Type Department Care Team (Late st Contact Info) Description 07/29/2022 Refill [facility] [address] [place] [id number] Carmen Bertrand DO [address] [place] [address] Social History Tobacco Use Types Packs/Day Years [...] Description 11/30/2024 9:15 AM EDT Office Visit [facility] [address] [place] [phone] Carmen Bertrand DO [address] [place] [address] 01/24/2025 1:00 PM EDT Clinical Support [facility] [address] [place] [phone] 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 RN documented as of this encounter Visit Diagnoses Not on filedocumented in this encounter Care Teams Security Solutions Engineer Relationship Specialty Start Date End Date Carmen Bertrand DO [address] [place] [address] PCP - General Family Medicine 08/18/18 documented as of this encounter
--- OUTSIDE RECORDS SUMMARY | 2024-11-25 18:15 | XMS_ITS | Clinical Summary ---
Author Organization [employer] Address [address] [place] [address] Care Team Providers Care Dispatcher Motor Vehicle Name Role Phone EdilsonCarmen dixon Primary Care Provider [phone] Allergies Active Allergy Reactions Criticality Noted Date [...] (one) time per week. 1 kit Active famotidine (Pepcid) 40 MG tablet TAKE [...] 2025 Active ergocalciferol (Vitamin D2) 1.25 MG (84130 UT) capsule Take 1 capsule (1.25 mg) by mouth 1 (one) time per week. 12 capsule 025 Active econazole nitrate 1 % cream APPLY TOPICALLY TO AFFECTED AREA(S) TWICE DAILY DIRECTED 85 g 1 025 Active atorvastatin (Lipitor) 80 MG [...] ON FACE EVERY DAY NEEDED 45 g 025 Active topiramate 50 MG tabletIndications :Nonintractable [...] to 28 days. Do not start before November 11, 2024. 84 tablet 025 2024 Active emtricitabine-ten ofovir DF (Truvada) 200-300 MG tabletIndications :On pre-exposure prophylaxis for HIV TAKE 1 TABLET BY MOUTH EVERY DAY 30 tablet 2 025 Active Brilinta 90 MG tablet TAKE 1 TABLET BY MOUTH TWICE DAILY 60 tablet 1 025 Active amLODIPine (Norvasc) 5 MG tablet Take 1 tablet by mouth Once per day. 025 Active clopidogrel (Plavix) 75 MG tablet Take 1 tablet by mouth Once per day. 025 Active emtricitabine-ten ofovir DF (Truvada) 200-300 MG tabletIndications :On pre-exposure prophylaxis for HIV TAKE 1 TABLET BY MOUTH EVERY DAY 30 tablet 2 024 2024 Discontinued Brilinta 90 MG tablet TAKE 1 TABLET BY MOUTH TWICE DAILY 60 tablet 1 025 2024 Discontinued traMADol (Ultram) 50 MG tabletIndications :Chronic low back pain, unspecified back pain laterality, unspecified whether sciatica present Take 1 tablet (50 mg) by mouth every 8 (eight) hours if needed for severe pain for up to 28 days. Do not start before October 13, 2024. 84 tablet 025 2024 Discontinued(R eorder (will [...] Encounters Date Type Department Care Team Description 11/19/2024 Refill [facility] [address] [place] [address] Carmen Bertrand DO 11/12/2024 Patient Outreach [facility] [address] [place] [address] Carmen Bertrand DO Transition Of Care (Tcm) (HDF scheduled. ) 11/12/2024 Telephone [facility] [address] [place] [address] Carmen Bertrand DO Hospital Follow-up 11/07/2024 Orders Only GENERIC EXTERNAL DATA DEPARTMENT Provider, Generic External Data 11/05/2024 Refill [facility] [address] [place] [address] Carmen Bertrand DO On pre-exposure prophylaxis for HIV 11/04/2024 Refill [facility] [address], [place] [phone] Carmen Bertrand DO Chronic low back pain, unspecified back pain laterality, unspecified whether sciatica present 11/01/2024 Telephone [facility] [address] [place] [phone] Carmen Bertrand DO telephone call 10/21/2024 1:30 PM EST Clinical Support [facility] [address] [place] [phone] 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, geomorphologist bilateral low back pain without sciatica (Primary Dx) 10/21/2024 Travel 10/20/2024 2:30 PM EST Office Visit [facility] [address] [place] [phone] Lewis, Tova, OD Presbyopia (Primary Dx); Cup to disc asymmetry, left 10/20/2024 Travel 10/11/2024 Refill [facility] [address] [place] [address] Carmen Bertrand DO Hypertension, unspecified type 10/06/2024 Telephone [facility] [address] [place] [address] Carmen Bertrand DO Prior Authorization 10/06/2024 Refill [facility] [address] [place] [address] Ирина Mckeon MD Nonintractable headache, unspecified chronicity pattern, unspecified headache type 10/05/2024 Refill [facility] [address] [place] [address] Carmen Bertrand DO Chronic low back pain, unspecified back pain laterality, unspecified whether sciatica present 10/05/2024 Telephone [facility] [address] [place] [address] Carmen Bertrand DO Nurse Triage 10/05/2024 Refill [facility] [address] [place] [address] Carmen Bertrand DO Mild persistent asthma without complication; Melasma 10/01/2024 Refill [facility] [address] [place] [address] Carmen Bertrand DO 09/30/2024 Orders Only GENERIC EXTERNAL DATA DEPARTMENT Provider, Generic External Data 09/29/2024 Orders Only GENERIC EXTERNAL DATA DEPARTMENT Provider, Generic External Data 09/27/2024 11:45 AM EST Office Visit [address] [address] Carmen Bertrand DO Positive colorectal cancer screening using Cologuard test (Primary Dx) 09/27/2024 Travel 09/21/[address] [address] Trista Alford, RN Results 09/17/2024 Orders Only GENERIC EXTERNAL DATA DEPARTMENT Provider, Generic External Data 09/17/2024 Refill [facility] [address] [place] [address] Carmen Bertrand DO 09/15/[address] [address] Carmen Bertrand DO Appointment Request 09/08/2024 Telephone [facility] [address] [place] [address] Carmen Bertrand DO Prior Authorization ([facility] request: [employer]) 09/07/2024 Refill [facility] [address] [place] [address] Carmen Bertrand DO Chronic low back pain, unspecified back pain laterality, unspecified whether sciatica present 09/05/2024 Refill [facility] [address] [place] [address] Carmen Bertrand DO 08/31/2024 Refill [facility] [address] [facility], [place] [phone] Trista Alford RN 08/30/2024 Telephone [facility] [address] [place] [address] Carmen Bertrand DO Prior Authorization from Last 3 Months Immunizations Name Administration Dates Next Due Hep B, adult 01/08/2017, 6,06/20/2016,11/09,08/31/2012,03/18/2012,10/31/2005 Influenza injectable quadriv alent IIV4 with preservative 06/26/2018,09/23/2017,06/05/2015 Influenza injectable quadriv alent preservative free 05/07/2022,05/21/2021,05/19/2020,06/01 Influenza, IIV3, injectable 05/07/2022,1 ,05/19/2020,06/01,06/26/2018,09/23/2017,06/05/2015 ,05/13/2014,06/13/2011,05/08/2007 Influenza, Split (incl. manuela fied surface antigen) 06/17/2013,08/31/2012 Influenza, seasonal, injecta ble, preservative free 05/26/2024 Moderna Covid-19 Vaccine 12+ 06/07/2021,01/30/20 Pneumococcal Conjugate PCV 20 02/21/2023 Pneumococcal Polysaccharide [...] Description 11/30/2024 9:15 AM EDT Office Visit [facility] [address] [place] [phone] Carmen Bertrand DO [address] [place], [place] [phone] 01/24/2025 1:00 PM EDT Clinical Support [facility] [address] [place] [address] 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, RN Health Maintenance Due Date Last Done Comments CT Colonography 1975 Colonoscopy 1975 FIT 1975 FOBT 1975 Sigmoidoscopy 1975 Family Planning (PISQ) 1991 Hepatitis A Vaccines (1 of 2 - Risk 2-dose series) 1995 COVID-19 Vaccine ( season) 2024 06/07/2021, 01/29/2021 Depression Monitoring 03/27/2025 09/27/2024, 024 SDOH Screening 04/27/2025 04/27/2024 Diabetes: Hemoglobin A1C 08/24/2025 025, 04/27/2024, 04/27/2024, Additional history exists Alcohol/Substance Use Screening 09/27/2025 09/27/2024 Depression Screening 09/27/2025 09/27/2024, 09/10/20 24 Tobacco Screening 11/05/2025 11/05/2024 Zoster Vaccines (1 of 2) 2026 Mammogram [...] Procedure Name Priority Date/Time Associated Diagnosis Comments NM HEART PERFUSION SPECT STRESS AND REST Routine 11/08/2024 9:19 AM EDT HIGH SENSITIVITY TROPONIN I Routine 11/07/2024 7:34 PM EDT APTT Routine 11/07/2024 7:[address] ABDOMEN PELVIS WO CONTRAST Routine 11/07/2024 7:25 PM EDT XR CHEST 1 VIEW Routine 11/07/2024 6:43 PM EDT HIGH SENSITIVITY TROPONIN I Routine 11/07/2024 4:29 PM EDT LIPASE Routine 11/07/2024 4:29 PM EDT MAGNESIUM Routine 11/07/2024 4:29 PM EDT COMPREHENSIVE METABOLIC PANEL Routine 11/07/2024 4:29 PM EDT CBC WITH AUTO DIFFERENTIAL Routine 11/07/2024 4:29 PM EDT POCT ANALISA-14 URINE DRUG SCREEN Routine 10/21/2024 2:02 PM EST Chronic bilateral low back pain without sciatica OPTIC DISC PHOTOS - OU - BOTH EYES Routine 10/20/2024 2:30 PM EST Cup to disc asymmetry, left FUNDUS PHOTOS - OU - BOTH EYES Routine 10/20/2024 2:30 PM EST Cup to disc asymmetry, left HIGH SENSITIVITY TROPONIN I Routine 09/30/2024 12:01 AM EST B TYPE NATRIURETIC PEPTIDE (BNP) Routine 09/29/2024 3:25 PM EST HIGH SENSITIVITY TROPONIN I Routine 09/29/2024 3:25 PM EST MAGNESIUM Routine 09/29/2024 3:25 PM EST BASIC METABOLIC PANEL Routine 09/29/2024 3:25 PM EST HEPATIC FUNCTION PANEL Routine 3:25 PM EST PROTHROMBIN TIME-INR Routine 09/29/2024 [...] 10:33 AM EST Screening for colon cancer HEMOGLOBIN A1C Routine 08/24/2024 11:57 AM EST [...] of left foot Healthcare maintenance HIV ANTIBODY/ANTIGEN (MI DP) Routine 02/21/2023 2:35 PM EDT from Last 3 Months or Most Recently Relevant to Health Maintenance Results * NM heart perfusion SPECT stress and rest (11/08/2024 9:19 AM EDT) Anatomical Region Laterality Modality Body Nuclear Medicine 11/08/2024 9:19 AM EDT Narrative 11/09/2024 12:33 PM EDT ? [facility] ?[address] ?[place] [address] ?Nuclear Medicine Report ? Signed ? Patient: Blaire Quiroz ?MR#: M ?? [id number] ? : 1975 ?Acct:[id number] ? Age/Sex: 49 / F ?ADM Date: 11/07/ ? Loc: HO.[facility] ?475-1 ? Attending : Gregg Chavez MD ? Ordering Physician: Mars Hutchinson MD ?? Date of Service: 03/24/25 ?? Procedure(s): NM andrew perf SPECT rest ?? str ?? Accession Number(s): [id number] ? cc: Carmen Bertrand DO; Mars Hutchinson MD ? Lexiscan Myocardial perfusion study ? Indication: ?? Elevated troponin and chest pain with prior CAD to evaluate for ?? myocardial ischemia ? Technique: ? The patient was brought in for a Lexiscan perfusion study on 11/09/2024 ?? and was injected 0.4 mg of Lexiscan intravenously. Within a minute of ?? this injection 40 mCi of sestamibi was given intravenously. Images were ?? obtained using the SPECT gamma camera interlaced with the gating ?? device. Images were obtained in supine position. ? Resting perfusion study was performed on November 08 2024. Patient was ?? administered 40 mCi of sestamibi intravenously at rest. Images were ?? then obtained in supine position. ? Images obtained without without CT attenuation. Total DLP 174 mGy-cm ? Images were processed with the software and compared side to side in ?? short axis, horizontal long axis and vertical long axis views. ? Findings: ? The stress perfusion study showed ??nonattenuated images show mildly ?? reduced uptake in the anterior as well as the basal anterolateral wall ?? of the LV myocardium. Attenuated corrected images show mildly reduced ?? uptake in the distal anterior and apical wall of the myocardium.. The ?? gated study shows normal LV systolic function with calculated LVEF of ?? 56%. LV cavity is mildly dilated in size. The gated study shows normal ?? systolic ??wall thickening and contraction of segments. ?? Resting study shows attenuated corrected images show improved uptake in ?? the distal anterior and apical wall of the LV myocardium.. Gating at ?? rest reveals normal systolic wall motion with ejection fraction at 68%. ? The findings are consistent with small sized mild intensity reversible ?? defect of the distal anterior and apical wall of the myocardium ?? suggestive of ischemia. ? NM/NM andrew perf SPECT rest ?? str ?? Impression: ? 1. ??Myocardial perfusion imaging study shows mild intensity ischemia ?? mid to distal LAD territory ?? 2. ??Gated LVEF is 56% with stress and 68% with rest ?? 3. Transient ischemic dilatation present ? Nondiagnostic changes on EKG. ? Electronically signed by: ??Mars Hutchinson MD ??11/09/2024 12:31 PM EDT RP ? Dictated By: ?Mars Hutchinson MD ? Signed By: ?<Electronically signed by Mars Hutchinson MD in OV> ?11/09/24 1231 ? DD/ 0919 ? TD/TT: 11/09/24 0955 ? Packing Clerk: ? Procedure Note Donotuseinterpreter, Image - 11/09/[address] [address] Nuclear Medicine Report Signed Patient: Christianne Quiroz#: M [id number] : 1975Acct:[id number] Age/Sex: 49 / FADM Date: 11/07/24 Loc: [facility] 475-[address]: Gregg Chavez MD Ordering Physician: Mars Hutchinson MD Date of Service: 11/08/24 Procedure(s): NM andrew perf SPECT rest str Accession Number(s): [id number] cc: Carmen Bertrand DO; Mars Hutchinson MD Lexiscan Myocardial perfusion study Indication: Elevated troponin and chest pain with prior CAD to evaluate for myocardial ischemia Technique: The patient was brought in for a Lexiscan perfusion study on 11/09/2024 and was injected 0.4 mg of Lexiscan intravenously. Within a minute of this injection 40 mCi of sestamibi was given intravenously. Images were obtained using the SPECT gamma camera interlaced with the gating device. Images were obtained in supine position. Resting perfusion study was performed on November 08 2024. Patient was administered 40 mCi of sestamibi intravenously at rest. Images were then obtained in supine position. Images obtained without without CT attenuation. Total DLP 174 mGy-cm Images were processed with the software and compared side to side in short axis, horizontal long axis and vertical long axis views. Findings: The stress perfusion study showed nonattenuated images show mildly reduced uptake in the anterior as well as the basal anterolateral wall of the LV myocardium. Attenuated corrected images show mildly reduced uptake in the distal anterior and apical wall of the myocardium.. The gated study shows normal LV systolic function with calculated LVEF of 56%. LV cavity is mildly dilated in size. The gated study shows normal systolic wall thickening and contraction of segments. Resting study shows attenuated corrected images show improved uptake in the distal anterior and apical wall of the LV myocardium.. Gating at rest reveals normal systolic wall motion with ejection fraction at 68%. The findings are consistent with small sized mild intensity reversible defect of the distal anterior and apical wall of the myocardium suggestive of ischemia. NM/NM andrew perf SPECT rest str Impression: 1. Myocardial perfusion imaging study shows mild intensity ischemia mid to distal LAD territory 2. Gated LVEF is 56% with stress and 68% with rest 3. Transient ischemic dilatation present Nondiagnostic changes on EKG. Electronically signed by: Mars Hutchinson MD 11/09/2024 12:31 PM EDT RP Dictated By: Mars Hutchinson MD Signed By: <Electronically signed by Mars Hutchinson MD in OV> 11/09/24 1231 DD/ 0919 TD/TT: 11/09/24 0955 Packing Clerk: [facility] External Provider IMG NM PROCEDURES Edited Result - Final * (ABNORMAL) High Sensitivity Troponin I (11/07/2024 7:34 PM EDT) Only the most recent of4 resultswithin the time period is included. Pathologist [facility] TROPONIN I HIGH SENSITIVITY 85.7(HH) <3.5 - 17.0 ng/L [facility] Comment:Critical value for t est(s): HS-TNI Results called to rickie back by:ROSANNE Person calling:ALKAAB Date: 11/07/2024Time:20:02.The [facility] high sensitivity Troponin-I results should beused in conjunction with other diagnostic information suchas ECG, clinical observations and information, and patientsymptoms to aid in the diagnosis of [place]. 11/07/2024 7:34 PM EDT 11/07/2024 7:37 PM EDT Generic External Data Provider LAB BLOOD ORDERAB LES Final Result [facility] [address] [place] [phone] * (ABNORMAL) Partial Thromboplastin Time, Activated (APTT) (11/07/2024 7:34 PM EDT) Pathologist [facility] Partial Thromboplastin Time 36.9(H) 26.0 - 36.8 SEC [facility] Comment:For information rega rding the monitoring of direct thrombininhibitors, please refer to Pharmacy. 11/07/2024 7:34 PM EDT 11/07/2024 7:37 PM EDT us Generic External Data Provider LAB BLOOD ORDERAB LES Final Result [facility] [address] [place] [address] [phone] * CT Abdomen Pelvis w/o Contrast (11/07/2024 7:25 PM EDT) Anatomical Region Laterality Modality Body, Pelvis, Abdomen Computed T omography 11/07/2024 7:25 PM EDT Narrative 11/07/2024 7:26 PM EDT ? [facility] ?[address] ?[place] [address] ? CT Scan Report ? Signed ? Patient: Blaire Quiroz ?MR#: M ?? [id number] ? : 1975 ?Acct:[id number] ? Age/Sex: 49 / F ?ADM Date: 11/07/24 ? Loc: HO.ED ? Attending Dr: ? Ordering Physician: Marco Lugo MD ?? Date of Service: 11/07/24 ?? Procedure(s): CT abdomen pelvis wo IV con ?? Accession Number(s): [id number] ? cc: Carmen Bertrand DO; Marco Lugo MD ? Report Number: ?? [id number]: Total DLP = 1392.00 mGy-cm ? CLINICAL HISTORY: left flank pain ? CT abdomen and pelvis without contrast ? Comparison: DX - XR HIP RT MIN 2V - 09/17/24 11:03 EST ?? US/SR - US ABDOMEN COMPLETE - 05/07/24 09:08 EDT ?? CT/SC/SR - CT ABDOMEN PELVIS WO IV CON - 02/12/24 20:37 EDT ? Findings: ?? Small hiatal hernia. ? Liver, gallbladder, pancreas, spleen, and adrenal glands are within normal ?? limits. ?? There is a small accessory splenule. ?? Mild left hydronephrosis with 4 mm calculus in the left ureter at the ?? level of L5. ?? No hydronephrosis on the right. There are multiple additional bilateral ?? nonobstructing renal calculi. ? No bowel obstruction, pneumoperitoneum, or pneumatosis. ?? Aortic atherosclerosis. No aneurysm. ? Hysterectomy. ?? The bones are intact. ?? Degenerative changes of the spine. ? IMPRESSION: ? 4 mm left ureteral calculus at the level of L5 with mild left ?? hydronephrosis. ?? Multiple additional nonobstructing bilateral renal calculi. ? This document has been electronically signed by: Mahad Pearl MD on ?? 11/07/2024 19:25:05 ? Dictated By: ?Mahad Pearl MD ? Signed By: ?<Electronically signed by Mahad Pearl MD in OV> ?11/07/241924 ? DD/ 24 ? TD/TT: 11/07/241924 ? Packing Clerk: ? Procedure Note Dawna Lora - 11/07/[address] [place] [address] [address] Scan Report Signed Patient: Christianne Quiroz#: M [id number] : 1975Acct:[id number] Age/Sex: 49 / FADM Date: 11/07/24 Loc: HO.ED Attending Dr: Ordering Physician: Marco Lugo MD Date of Service: 11/07/24 Procedure(s): CT abdomen pelvis wo IV con Accession Number(s): [id number] cc: Carmen Bertrand DO; Marco Lugo MD Report Number: [id number]: Total DLP = 1392.00 mGy-cm CLINICAL HISTORY: left flank pain CT abdomen and pelvis without contrast Comparison: DX - XR HIP RT MIN 2V - 09/17/24 11:03 EST US/SR - US ABDOMEN COMPLETE - 05/07/24 09:[address]/SC/SR - CT ABDOMEN PELVIS WO IV CON - 02/12/24 20:37 EDT Findings: Small hiatal hernia. Liver, gallbladder, pancreas, spleen, and adrenal glands are within normal limits. There is a small accessory splenule. Mild left hydronephrosis with 4 mm calculus in the left ureter at the level of L5. No hydronephrosis on the right. There are multiple additional bilateral nonobstructing renal calculi. No bowel obstruction, pneumoperitoneum, or pneumatosis. Aortic atherosclerosis. No aneurysm. Hysterectomy. The bones are intact. Degenerative changes of the spine. IMPRESSION: 4 mm left ureteral calculus at the level of L5 with mild left hydronephrosis. Multiple additional nonobstructing bilateral renal calculi. This document has been electronically signed by: Mahad Pearl MD on 11/07/2024 19:25:05 Dictated By: Mahad Pearl MD Signed By: <Electronically signed by Mahad Pearl MD in OV> 11/07/241924 DD/ 24 TD/TT: 11/07/241924 Packing Clerk: [facility] External Provider IMG CT PROCEDURES Edited Result - Final * XR Chest 1 View (11/07/2024 6:43 PM EDT) Anatomical Region Laterality Modality Chest Radiographic Alejandrina ging 11/07/2024 6:43 PM EDT Narrative 11/07/2024 6:45 PM EDT ? [facility] ?[address] ?[place] [address] ?XRay Report ? Signed ? Patient: Blaire Quiroz ?MR#: M ?? [id number] ? : 1975 ?Acct:[id number] ? Age/Sex: 49 / F ?ADM Date: 03/23/25 ? Loc: HO.ED ? Attending Dr: ? Ordering Physician: Marco Lugo MD ?? Date of Service: 11/07/24 ?? Procedure(s): XR chest 1V ?? Accession Number(s): [id number] ? cc: Carmen Bertrand DO; Marco Lugo MD ? CLINICAL HISTORY: Chest pain ? 1 view chest x-ray ? Comparison: CR/SC/SR - XR CHEST 1V - 11/11/23 18:01 EDT ? Findings: ?? No consolidation or effusion. ?? Heart size is normal. ?? No acute fracture. ? IMPRESSION: ?? 1. No acute findings. ? This document has been electronically signed by: Mahad Pearl MD on ?? 11/07/2024 18:43:58 ? Dictated By: ?Mahad Pearl MD ? Signed By: ?<Electronically signed by Mahad Pearl MD in OV> ?11/07/24 1844 ? DD/ 42 ? TD/TT: 11/07/241842 ? Packing Clerk: ? Procedure Note Donclintonter, Image - 11/07/[address] [address] XRay Report Signed Patient: Blaire QuirozMR#: M [id number] : 1975Acct:[id number] Age/Sex: 49 / FADM Date: 11/07/24 Loc: .ED Attending Dr: Ordering Physician: Marco Lugo MD Date of Service: 11/07/24 Procedure(s): XR chest 1V Accession Number(s): [id number] cc: Carmen Bertrand DO; Marco Lugo MD CLINICAL HISTORY: Chest pain 1 view chest x-ray Comparison: CR/SC/SR - XR CHEST 1V - 11/11/23 18:01 EDT Findings: No consolidation or effusion. Heart size is normal. No acute fracture. IMPRESSION: 1. No acute findings. This document has been electronically signed by: Mahad Pearl MD on 11/07/2024 18:43:58 Dictated By: Mahad Pearl MD Signed By: <Electronically signed by Mahad Pearl MD in OV> 11/07/241843 DD/ 42 TD/TT: 11/07/241842 Packing Clerk: [facility] External Provider IMG XR PROCEDURES Edited Result - Final * (ABNORMAL) CBC auto differential (11/07/2024 4:29 PM EDT) Only the most recent of2 resultswithin the time period is included. White Blood Count 11.1(H) 4.8 - 10.8 X10*3/uL [facility] Red Blood Count 4.18(L) 4.20 - 5.50 X10*6/uL [facility] Hemoglobin 12.9 12.0 - 16.0 g/dl [facility] Hematocrit 38.3 37.0 - 47.0 % [facility] Mean Corpuscular Volume 91.6 80.0 - 98.0 fL [facility] Mean Corpuscular Hemoglobin 30.9 27.0 - 33.0 pg [facility] Mean Corpuscular HGB Conc 33.7 31.0 - 35.0 g/dl [facility] Red Cell Distribution Width 14.2 11.0 - 16.0 % [facility] Platelet Count 326 160 - 400 X10*3/uL [facility] Mean Platelet Volume 9.2(L) 9.4 - 12.3 fL [facility] Neutrophils Percent Auto 50.5 45 - 73 % [facility] Imm Gran Pct Auto 0.5(H) 0.0 - 0.4 % [facility] Lymphocytes Percent Auto 36.9 20 - 40 % [facility] Monocytes Percent Auto 7.9 2 - 11 % [facility] Eosinophils Percent Auto 3.7 0 - 4 % [facility] Basophils Percent Auto 0.5 0 - 2 % [facility] NRBC Pct Auto 0.0 0.0 - 0.2 /100WBC [facility] Neutrophils Absolute Auto 5.6 2.0 - 8.3 x10*3/uL [facility] Imm Gran Abs Auto 0.05(H) 0.00 - 0.03 X10*3/uL [facility] Lymphocytes Absolute Auto 4.1 1.2 - 4.9 X10*3/uL [facility] Monocytes Absolute Auto 0.9 0.1 - 1.2 X10*3/uL [facility] Eosinophils Absolute Auto 0.4 0.0 - 0.4 X10*3/uL [facility] Basophils Absolute Auto 0.1 0.0 - 0.2 X10*3/uL [facility] NRBC Abs Auto 0.000 0.0 - 0.012 X10*3/uL [facility] 11/07/2024 4:29 PM EDT 11/07/2024 4:33 PM EDT Generic External Data Provider LAB BLOOD ORDERAB LES Final Result Performing Organization Address [facility] Co de Phone Number [facility] [address] [place] [phone] * Magnesium (11/07/2024 4:29 PM EDT) Only the most recent of2 resultswithin the time period is included. Pathologist [facility] Magnesium 1.7 1.6 - 2.6 mg/dL [facility] 11/07/2024 4:29 PM EDT 11/07/2024 4:33 PM EDT us Generic External Data Provider LAB BLOOD ORDERAB LES Final Result Performing Organization Address [facility] de Phone Number [facility] [address] [place] [phone] * Lipase (11/07/2024 4:29 PM EDT) Pathologist [facility] Lipase 11 8 - 78 U/L [facility] 11/07/2024 4:29 PM EDT 11/07/2024 4:33 PM EDT Generic External Data Provider LAB BLOOD ORDERAB LES Final Result Performing Organization Address [facility] de Phone Number [facility] [address] [place] [phone] * (ABNORMAL) Comprehensive Metabolic Panel (11/07/2024 4:29 PM EDT) Sodium 141 135 - 145 mmol/L [facility] Potassium 3.9 3.3 - 5.1 mmol/L [facility] Chloride 110(H) 96 - 108 mmol/L [facility] Carbon Dioxide 25 22 - 29 mmol/L [facility] Anion Gap 10(L) 12 - 20 [facility] Urea Nitrogen (BUN) 12 9 - 16 mg/dL [facility] Creatinine, Serum 0.96 0.5 - 1.4 mg/dL [facility] Creatinine Clr Calc Pharmacy 115.0 [facility] Comment:Provided height and weight: 167.64 cm,165.3 kg.eGFR (calculated from the MDRD study equation) and eCrCl(calculated from the Cockcroft-Gault equation) are based ondifferent parameters and may not yield comparable results.If eCrCl result is absurd, please check patient'sheight/weight. Estimated Glomerular Filt Rate >60 [facility] Comment:Chronic Kidney Disea se: Estimated GFR < 60 mL/min/1.01h0Wvlhpq Kidney Disease: Estimated GFR < 15 mL/min/1.73m2 Glucose 97 60 - 115 mg/dL [facility] Calcium 9.2 8.4 - 10.2 mg/dL [facility] Bilirubin, Total 0.2 0.0 - 1.0 mg/dL [facility] Aspartate Amino Transferase 23 5 - 31 U/L [facility] Alanine Aminotransferase 13 0 - 31 U/L [facility] Total Protein 7.6 6.5 - 8.0 g/dL [facility] Albumin Level 3.4(L) 3.5 - 5.0 g/dL [facility] Alkaline Phosphatase 98 39 - 117 U/L [facility] 11/07/2024 4:29 PM EDT 11/07/2024 4:33 PM EDT us Generic External Data Provider LAB BLOOD ORDERAB LES Final Result [facility] [address] [place] [address] [phone] * POCT ANALISA-14 Urine Drug Screen (10/21/2024 2:02 PM EST) Urine Urine specimen obtained by clean catch procedure / Unknown 10/21/2024 2:02 PM EST Jessica Perez RN - 10/21/2024 2:02 PM EST UTOX cup Lot#[id number] Exp. 04/06/26 Internal Pass Control UTOX Negative for all substances. Carmen Bertrand DO POINT OF CARE TEST ENTER/LANEY T ORDERABLES Final Result * Optic Disc Photos - OU - Both Eyes (10/20/2024 2:30 PM EST) Tova Schneider, OD - 11/05/2024 10:00 AM EDT Right Eye Progression has no prior data. Findings include normal observations. Left Eye Progression has no prior data. Findings include normal observations. Notes OPTIC NERVE PHOTO INTERPRETION Optic Nerve Photo Interpretation Test Details: Photo quality: OD: good OS: good Cup to disc ratio: OD vertical: 0.35 OD horizontal: 0.35 OS vertical: 0.55 OS horizontal: 0.55 Rim characteristics: ?? OD: pink and healthy OS: pink and healthy Assessment and Plan: Asymmetric optic nerve cupping left eye (OS)>right eye (OD). Likely physiological. Will monitor at next exam. Result [facility] Tova Saucedo OD OPHTH PHOTOGRAPHY Final Resul t * Fundus Photos - OU - Both Eyes (10/20/2024 2:30 PM EST) Tova Schneider, OD - 11/05/2024 9:58 AM EDT Erroneous order Result [facility] Tova Saucedo OD OPHTH PHOTOGRAPHY Final Resul t * SARS-CoV-2 RNA, Influenza A/B, and RSV RNA, Ql NAAT (09/29/2024 3:25 PM EST) Influenza A PCR NEGATIVE Negative [facility] Influenza B PCR NEGATIVE Negative [facility] Resp Syncy Virus RNA Qual PCR NEGATIVE Negative [facility] SARS COV2 PCR NEGATIVE Negative [facility] Comment:All test results mus t [...] use by authorized laboratories.Testing performed on the [employer] GeneXpert utilizingreal-time RT-PCR.All SARS CoV2 and positive influenza A/B results arereported to [facility]. 09/29/2024 3:25 PM EST 09/29/2024 3:28 PM EST Generic External Data Provider LAB MICROBIOLOGY - GENERAL ORDERABLES Final Result Performing Organization Address [facility] de Phone Number [facility] [address] [place] [phone] * Prothrombin Time-INR (09/29/2024 3:25 PM EST) Prothrombin Time 11.4 10.9 - 12.4 SEC [facility] INTERNATIONAL NORM RATIO 1.0 0.9 - 1.1 [facility] Comment:INTERNATIONAL NORMAL IZED RATIO (INR) [...] ORDERAB LES Final Result Performing Organization Address [facility] de Phone Number [facility] [address] [place] [phone] * B Type Natriuretic Peptide (BNP) (09/29/2024 3:25 PM EST) Pathologist [facility] B Type Natriuretic Peptide 45 <100 pg/mL [facility] Comment:For those patients w ho are being treated with Natrecor(nesiritide, recombinant BNP), BNP testing should beperformed at least two hours post treatment in order toensure that only endogenous levels of BNP are detected. 09/29/2024 3:25 PM EST 09/29/2024 3:28 PM EST Generic External Data Provider LAB BLOOD ORDERAB LES Final Result Performing Organization Address [facility] Co de Phone Number [facility] [address] [place] [phone] * Hepatic Function Panel (09/29/2024 3:25 PM EST) [facility] Bilirubin, Total 0.5 0.0 - 1.0 mg/dL [facility] Bilirubin, Direct 0.2 0.0 - 0.5 mg/dL [facility] Aspartate Amino Transferase 22 5 - 31 U/L [facility] Alanine Aminotransferase 21 0 - 31 U/L [facility] Total Protein 7.8 6.5 - 8.0 g/dL [facility] Albumin Level 3.6 3.5 - 5.0 g/dL [facility] Alkaline Phosphatase 94 39 - 117 U/L [facility] 09/29/2024 3:25 PM EST 09/29/2024 3:28 PM EST [email or web address] External Data Provider LAB BLOOD ORDERAB LES Final Result Performing Organization Address [facility] Co de Phone Number [facility] [address] [place] [phone] * Basic Metabolic Panel (09/29/2024 3:25 PM EST) [facility] Sodium 140 135 - 145 mmol/L [facility] Potassium 4.6 3.3 - 5.1 mmol/L [facility] Chloride 108 96 - 108 mmol/L [facility] Carbon Dioxide 25 22 - 29 mmol/L [facility] Anion Gap 12 12 - 20 [facility] Urea Nitrogen (BUN) 12 9 - 16 mg/dL [facility] Creatinine, Serum 0.82 0.5 - 1.4 mg/dL [facility] Creatinine Clr Calc Pharmacy 139.5 [facility] Comment:Provided height and weight: 175.26 cm,164.1 kg.eGFR (calculated from the MDRD study equation) and eCrCl(calculated from the Cockcroft-Gault equation) are based ondifferent parameters and may not yield comparable results.If eCrCl result is absurd, please check patient'sheight/weight. Estimated Glomerular Filt Rate >60 [facility] Comment:Chronic Kidney Disea se: Estimated GFR < 60 mL/min/1.72m3Ejqxkc Kidney Disease: Estimated GFR < 15 mL/min/1.73m2 Glucose 97 60 - 115 mg/dL [facility] Calcium 9.6 8.4 - 10.2 mg/dL [facility] 09/29/2024 3:25 PM EST 09/29/2024 3:28 PM EST us Generic External Data Provider LAB BLOOD ORDERAB LES Final Result Performing Organization Address [facility] Co de Phone Number [facility] [address] [place] [phone] * XR Hip 2 or 3 Views Right (09/17/2024 5:59 PM EST) Anatomical Region Laterality Modality Lower Extremities, Hip Right Radiograp hic Imaging 09/17/2024 5:59 PM EST Narrative 09/17/2024 6:00 PM EST ? [facility] ? [address] ?[place] [address] ?XRay Report ? Signed ? Patient: Maria Luisa Jean,Blaire ?MR#: M ?? [id number] ? : 1975 ?Acct:[id number] ? Age/Sex: 49 / F ?ADM Date: 01/31/25 ? Loc: HO.HOSX ? Attending Dr: Heather Uriarte MD ? Ordering Physician: Heather Aviles ?? Date of Service: 09/17/24 ?? Procedure(s): XR hip RT min 2V ?? Accession Number(s): [id number] ? cc: Carmen Bertrand DO; Heather Aviles [...] 1800 ? DD/ 1759 ? TD/TT: 09/17/24 175 ? Packing Clerk: ? Procedure Note Donclintonter, Image - 09/17/2024 [facility] [address] [place] [address] [address] [place] [address] XRay Report Signed Patient: Blaire Quiroz#: M [id number] : 1975Acct:[id number] Age/Sex: 49 / FADM Date: 09/17/24 Loc: HO.HOSX Attending Dr: Heather Urirate MD Ordering Physician: Heather Aviles Date of Service: 09/17/24 Procedure(s): XR hip RT min 2V Accession Number(s): [id number] cc: Carmen Bertrand DO; Heather Aviles CLINICAL [...] in OV> 09/17/24 1800 DD/ 58 TD/TT: 09/17/24 1759 Packing Clerk: us [facility] External Provider IMG XR PROCEDURES Final Result * XR Sacroiliac Joints 1-2 Views (09/17/2024 5:59 PM EST) Anatomical Region Laterality Modality Sacroiliac joint, Pelvis Radiogr aphic Imaging 09/17/2024 5:59 PM EST Narrative 09/17/2024 6:00 PM EST ? [facility] ? [address] ?[place] [address] ?XRay Report ? Signed ? Patient: Blaire Quiroz ?MR#: M ?? [id number] ? : 1975 ?Acct:[id number] ? Age/Sex: 49 / F ?ADM Date: 09/17/24 ? Loc: HO.HOSX ? Attending Dr: Heather Uriarte MD ? Ordering Physician: Heather Aviles ?? Date of Service: 09/17/24 ?? Procedure(s): XR sacroiliac joint 1-2V ?? Accession Number(s): [id number] ? cc: Carmen Bertrand DO; Heather Aviles [...] DD/ 1759 ? TD/TT: 09/17/24 1759 ? Packing Clerk: ? Procedure Note Dawna Lora - 09/17/2024 [facility] [address] [place] [address] XRay Report Signed Patient: Blaire Quiroz#: M [id number] : 1975Acct:[id number] Age/Sex: 49 / FADM Date: 09/17/24 Loc: GIAN Attending Dr: Heather Uriarte MD Ordering Physician: Heather Aviles Date of Service: 09/17/24 Procedure(s): XR sacroiliac joint 1-2V Accession Number(s): [id number] cc: ElzaCarmen Reno JOHNSTON; Heather Aviles CLINICAL HISTORY: M53.3 - Sacrococcygeal [...] OV> 09/17/24 1800 DD/ 58 TD/TT: 09/17/241758 Packing Clerk: [facility] External Provider IMG XR PROCEDURES Final Result * (ABNORMAL) Rheumatoid Factor (09/17/2024 11:45 AM EST) Rheumatoid Factor 28.2(H) <15.0 IU/mL [facility] 09/17/2024 11:4 5 AM EST 09/17/2024 11:45 AM EST Generic External Data Provider LAB BLOOD ORDERAB LES Final Result [facility] [address] [place] [phone] * (ABNORMAL) REBECCA Screen,IFA, with Reflex to Titer and Pattern (09/17/2024 11:45 AM EST) Anti Nuclear Antibody Screen POSITIVE (A) NEGATIVE [facility] Comment:REBECCA IFA is a first l ine screen for detecting thepresence of up to approximately 150 autoantibodies invarious autoimmune diseases. A positive REBECCA IFA resultis suggestive of autoimmune disease and reflexes totiter and pattern. Further laboratory testing may beconsidered if clinically indicated.For additional information, please refer tohttp://education.[employer].com/faq/TRG265(This link is being provided for informational/educational purposes only.) REBECCA Titer 1:40(A) titer [facility] Comment:A low level REBECCA tite r may be present in pre-clinicalautoimmune diseases and normal individuals. Reference Range <1:40 Negative 1:40-1:80 Low Antibody Level >1:80 Elevated Antibody Level REBECCA Pattern Nuclear, Speckled (A) [facility] Comment:Speckled pattern is associated with mixed connectivetissue disease (MCTD), systemic lupus erythematosus(SLE), Sjogren's syndrome, dermatomyositis, andsystemic sclerosis/polymyositis overlap.AC-2,4,5,29: SpeckledInternational Consensus on REBECCA Patterns(https://doi.org/10.1515/qssw-9894-9596)THIS TEST WAS PERFORMED AT:[facility] [place] [phone] HINTON MD REBECCA TITER 2 (REF LAB) [facility]CCA Pattern 2 [facility] REBECCA TITER 3 [facility] REBECCA PATTERN 3 [facility] 09/17/2024 11:4 5 AM EST 09/17/2024 11:45 AM EST Generic External Data Provider LAB BLOOD ORDERAB LES Final Result Performing Organization Address City/State/[facility] Co de Phone Number [facility] [address] [place] [phone] * (ABNORMAL) Cologuard?? colon cancer screening (08/31/2024 10:33 AM EST) Cologuard Result Positive( A) Negative 09/07/2024 10:16 AM EST [facility] (CLIA #:[id number]) Comment: POSITIVE TEST RESULT. A positive Cologuard [...] screened with both Cologuard and colonoscopy. (Ashleigh Hamilton et al, N Engl J Med 2014;370(14):9459-4478.) Cologuard may produce a false negative or false positive result (no colorectal cancer or precancerous polyp present at colonoscopy follow up). A negative Cologuard test result does not guarantee the absence of CRC or advanced adenoma (pre-cancer). The current Cologuard screening interval is every 3 years. ([place] [employer] Society and U.S. Multi-Society Task Force). Cologuard performance data in a 10,000 patient pivotal study using colonoscopy as the reference method can be accessed at the following location: www.[employer]/results. Additional description of the Cologuard test process, warnings and precautions can be found at www.[employer].com. Stool specimen (specimen) 08/31/2024 10:33 AM EST 09/01/2024 11:06 AM EST Carmen Bertrand DO LAB MOLECULAR DIAGNOSTICS OR DERABLES Final Result [facility] (CLIA #:[id number]) [place] [address], * Hemoglobin A1c (08/24/2024 11:57 AM EST) Hemoglobin A1c 6.0 <6.0 % [facility] Comment:Hemoglobin A1C Refer ence Range Adults: 4.8 - 6.0 % Non diabetic: < 6.0 % Goal: < 7.0 %Additional Action Suggested: > 8.0 %Note: Hemoglobin A1c results are invalid for patients with abnormal amounts of HbF. Blood transfusions may impact the HbA1c concentration in the patient sample. Estimated Average Glucose 126 mg/dL [facility] Comment:eAG = Estimated ave rage glucose which is %A1C expressed asaverage glucose, using the formula of the M9T-VtibvvsHtrtnst Glucose study (ADAG), Diabetes Care, Vol.31,#8,Mar. 2007 Blood Venous blood specimen / Unknown 08/24/2024 11:57 AM EST 08/24/2024 1:03 PM EST us Carmen Bertrand DO LAB BLOOD ORDERABLES Final R esult [facility] [address] [place] [phone] * (ABNORMAL) Lipid Panel, Standard (08/24/2024 11:57 AM EST) Triglycerides 82 <150 mg/dL [facility] Comment:Desirable Triglyceri de: less than 150 mg/dLBorderline High Triglyceride 150-199 mg/dLHigh Triglyceride: 200-499 mg/dLVery High Triglyceride: greater than or equal to 5OO mg/dL Cholesterol 136 <200 mg/dL [facility] Comment:Desirable Cholestero l: less than 200 mg/dLBorderline High Cholesterol: 200-239 mg/dLHigh Cholesterol: greater than 239 mg/dL LDL Cholesterol Calculated 81 <100 mg/dL [facility] Comment:Desirable LDL: less than 100 mg/dLNear Optimal/Above Optimal LDL: 110- 129 mg/dLBorderline High LDL: 130-159 mg/dLHigh LDL: 160-189 mg/dLVery High LDL: greater than or equal to 190 mg/dL HDL Cholesterol 39(L) >40 mg/dL [facility] Comment:Desirable HDL: great er than 40 mg/dL Note: This HDL assay may give artificially low results in patients with liver disease. Blood Venous blood specimen / Unknown 08/24/2024 11:57 AM EST 08/24/2024 1:03 PM EST us Carmen Elza DO LAB BLOOD ORDERABLES Final R esult [facility] [address] [place] [address] [phone] * BI US Breast Limited Bilateral (06/02/2024 2:00 PM EDT) Anatomical Region Laterality Modality Breast Bilateral Ultrasound 06/02/2024 2:00 PM EDT Narrative 06/03/2024 8:44 AM EDT ? [facility] ? [address] ?[place] [address] ? Ultrasound Report ? Signed ? Patient: Blaire Quiroz ?MR#: M ?? [id number] ? : 1975 ?Acct:[id number] ? Age/Sex: 49 / F ?ADM Date: 06/02/24 ? Loc: HO.MAMMO ? Attending Dr: Carmen Bertrand DO ? Ordering Physician: Carmen Bertrand DO ?? Date of Service: 06/02/24 ?? Procedure(s): US breast BI limited mamm only ?? Accession Number(s): [id number] ? cc: Carmen Bertrand DO ? EXAMINATION: [...] DD/ 1400 ? TD/TT: 06/02/24 1454 ? Packing Clerk: ? Procedure Note Donclintonter, Image - 06/03/2024 [facility] [address] [place] [address] Ultrasound Report Signed Patient: Blaire Quiroz#: M [id number] : 1975Acct:[id number] Age/Sex: 49 / FADM Date: 06/02/24 Loc: HO.MAMMO Attending Dr: Carmen Bertrand DO Ordering Physician: Carmen Bertrand DO Date of Service: 06/02/24 Procedure(s): US breast BI limited mamm only Accession Number(s): [id number] cc: Carmen Bertrand DO EXAMINATION: US DIAGNOSTIC [...] 06/03/24 0841 DD/ 1400 TD/TT: 06/02/24 1454 Packing Clerk: Carmen Bertrand DO IMG US PROCEDURES Final Resu lt * Hepatitis C Antibody with Reflex to HCV, RNA, Quantitative, Real-Time PCR (04/27/2024 2:02 PM EDT) Hepatitis C Antibody Nonreactive Nonreactive [facility] Comment:Antibodies to HCV no t detected; does not exclude early acuteHCV infection. Blood Venous blood specimen / Unknown 04/27/2024 2:02 PM EDT 04/27/2024 4:01 PM EDT Carmen Jurcsak DO LAB BLOOD ORDERABLES Final R esult Performing Organization Address [facility] Co de Phone Number [facility] [address] [place] [phone] * HIV Ab/Ag (BHAVIN MCKEON) (02/21/2023 2:35 PM EDT) HIV AB/AG Nonreactive Nonreactive [facility] Comment:HIV-1 p24 Ag and/or HIV-1/HIV-2 Ab not detected.A test result that is nonreactive does not exclude thepossibility of exposure to or infection with HIV-1 and/orHIV-2. Nonreactive results in this assay for individualswith prior exposure to HIV-1 and/or HIV-2 may be due toantigen and antibody levels that are below the limit ofdetection of this assay.The [employer] Environmental Scientist HIV Ag/Ab Combo assay result andsupplemental assay results should be interpreted inconjunction with the patient's clinical presentation,history and other laboratory results. If the results areinconsistent with clinical evidence, additional testing issuggested to confirm the result. 02/21/2023 2:35 PM EDT 02/21/2023 2:37 PM EDT [facility] External Provider LAB BLO OD ORDERABLES Final Result Performing Organization Address [facility] Co de Phone Number [facility] [address] [place] [address] [phone] from Last 3 Months or Most Recently Relevant to Health Maintenance Insurance [facility] Care Teams Dispatcher Motor Vehicle Relationship Specialty Start Date End Date Carmen Betrrand DO [address] [place] [phone] PCP - General Family Medicine 08/18/18
--- OUTSIDE RECORDS SUMMARY | 2024-11-25 18:15 | XMS_ITS | Encounter Summary ---
Author Organization [employer] Address [address] [place] [address] Care Team Providers Care Sr. Manager Marketing Name Role Phone Carmen Bertrand DO Primary Care Provider [phone] Reason for Visit * Reason Onset Date Comments Hospital Follow-up 11/12/2024 Encounter Details Date Type Department Care Team ([facility] Contact Info) Description 11/12/2024 Telephone [facility] [address] [place] [address] Carmen Bertrand DO [address] [place] [address] Hospital Follow-up Social History Tobacco Use Types Packs/Day Years [...] encounter Miscellaneous Notes * Telephone Encounter - Hilary Menjivar - 11/12/2024 11:52 AM EDT Tc from pt requesting a HDF appt. Hospital: [facility] Date of admission: 11/07/2024 Discharge date: 11/12/2024 Diagnosed: heart attack *Send message to [place] Clinical Care Coordinators documented in this encounter Plan of Treatment Upcoming Encounters Date Type Department Care Team (Late st Contact Info) Description 11/30/2024 9:15 AM EDT Office Visit [facility] [address] [place] [phone] Carmen Bertrand DO [address] [place] [phone] 01/24/2025 1:00 PM EDT Clinical Support [facility] [address] [place] [phone] 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 RN documented as of this encounter Visit Diagnoses Not on filedocumented in this encounter Additional Health Concerns Assessment Noted Time PHQ-9 Depression Total Score: 22 024 11:00 AM EDT documented as of this encounter Care Teams Sr. Manager Marketing Relationship Specialty Start Date End Date Carmen Bertrand DO [address] [place] [address] PCP - General Family Medicine 08/18/18 documented as of this encounter
--- OUTSIDE RECORDS SUMMARY | 2024-11-25 18:15 | XMS_ITS | Encounter Summary ---
Author Organization [employer] Address [address] [place] [address] [address] [place] [address] Care Team Providers Care Pickle Processor Name Role Phone EdilsonCarmen dixon Primary Care Provider + [phone] Reason for Visit * Reason Comments Med Refill Encounter Details Date Type Department Care Team ([facility] Contact Info) Description 02/03/2023 Refill [facility] [address] [place] [address] Leticia Ramirez MD [address] [place] [address] Nonintractable headache, unspecified chronicity pattern, unspecified headache [...] Department Care Team (Late Contact Info) Description 11/30/2024 9:15 AM EDT Office Visit [address] [address] Carmen Bertrand DO [address] [place] [address] 01/24/2025 1:00 PM EDT Clinical Support [address] [address] 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, RULA documented as of this encounter Visit Diagnoses Diagnosis Nonintractable headache, unspecified chronicity pattern, unspecified headache type documented in this encounter Additional Health Concerns Assessment Noted Time PHQ-9 Depression Total Score: 16 023 12:22 PM EST documented as of this encounter Care Teams Pickle Processor Relationship Specialty Start Date End Date [place] [address] PCP - General Family Medicine 08/18/18 documented as of this encounter
--- OUTSIDE RECORDS SUMMARY | 2024-11-25 18:15 | XMS_ITS | Encounter Summary ---
Author Organization [employer] Address [address] 7t [place] [address] Care Team Providers Care Pillowcase Sewer Name Role Phone Carmen Bertrand DO Primary Care Provider + [phone] Reason for Visit * Reason Comments Med Refill Encounter Details Date Type Department Care Team ([facility] st Contact Info) Description 03/16/2024 Refill [facility] [address] [place], [place] [phone] Carmen Bertrand DO [address] [facility] [place] [address] Chronic low back pain, unspecified back pain [...] Description 11/30/2024 9:15 AM EDT Office Visit [address] [address] Carmen Bertrand DO [address] [place] [address] 01/24/2025 1:00 PM EDT Clinical Support [address] [address] 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, RULA documented as of this encounter Visit Diagnoses Diagnosis Chronic low back pain, unspecified back pain laterality, unspecified whether sciatica present documented in this encounter Additional Health Concerns Assessment Noted Time PHQ-9 Depression Total Score: 21 023 11:26 AM EST documented as of this encounter Care Teams Pillowcase Sewer Relationship Specialty Start Date End Date Carmen Bertrand DO [address] [place] [id number] PCP - General Family Medicine 08/18/18 documented as of this encounter
--- OUTSIDE RECORDS SUMMARY | 2024-11-25 18:15 | XMS_ITS | Encounter Summary ---
Author Organization [employer] Address [address] [facility] 7[address] [place] [address] Care Team Providers Care Infant Teacher Name Role Phone Carmen Bertrand DO Primary Care Provider [phone] Reason for Visit * Reason Comments Med Refill Encounter Details Date Type Department Care Team ([facility] st Contact Info) Description 11/20/2022 Refill [facility] [address] [place] [address] Carmen Bertrand DO [address] [place] [address] Morbid obesity with body mass index (BMI) [...] Description 11/30/2024 9:15 AM EDT Office Visit [address] [address] Carmen Bertrand DO [address] [place] [address] 01/24/2025 1:00 PM EDT Clinical Support [address] [address] 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, RN documented as of this encounter Visit Diagnoses Diagnosis Morbid obesity with body mass index (BMI) of 50.0 to 59.9 in adult (CMS/HCC) documented in this encounter Additional Health Concerns Assessment Noted Time PHQ-9 Depression Total Score: 16 023 12:22 PM EST documented as of this encounter Care Teams Infant Teacher Relationship Specialty Start Date End Date Carmen Bertrand DO [address] [place] [address] PCP - General Family Medicine 08/18/18 documented as of this encounter
--- OUTSIDE RECORDS SUMMARY | 2024-11-25 18:15 | XMS_ITS | Encounter Summary ---
Author Organization [employer] Address [address] [place] [address] 7t [place] [address] Care Team Providers Care Nutrition Specialist Name Role Phone Carmen Bertrand DO Primary Care Provider [phone]- [phone] Encounter Details Date Type Department Care Team (Late st Contact Info) Description 09/09/2022 Orders Only [facility] [address] [place], [place] [phone] Carmen Perez LPN Social History Tobacco Use [...] Description 11/30/2024 9:15 AM EDT Office Visit [address] [address] Carmen Bertrand DO [address] [place] [address] 01/24/2025 1:00 PM EDT Clinical Support [address] [address] 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 RN documented as of this encounter Visit Diagnoses Not on filedocumented in this encounter Care Teams Nutrition Specialist Relationship Specialty Start Date End Date Carmen Bertrand DO [address] [place] [address] PCP - General Family Medicine 08/18/18 documented as of this encounter
--- OUTSIDE RECORDS SUMMARY | 2024-11-25 18:15 | XMS_ITS | Encounter Summary ---
Author Organization [employer] Address [address] [facility] 7t [place] [address] Care Team Providers Care Binman Name Role Phone RajeevCarmen jones Primary Care Provider + [phone] Reason for Visit * Reason Comments Med Refill Encounter Details Date Type Department Care Team ([facility] st Contact Info) Description 03/08/2024 Refill [facility] [address] [place] [address] Rox Sutton MD 230 [place] [address] Pain Social History Tobacco Use Types Packs/Day [...] Description 11/30/2024 9:15 AM EDT Office Visit [facility] [address] [place] [address] Carmen Bertrand DO [address] [place] [address] 01/24/2025 1:00 PM EDT Clinical Support [address] [address] 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 RN documented as of this encounter Visit Diagnoses Diagnosis Pain Generalized pain documented in this encounter Additional Health Concerns Assessment Noted Time PHQ-9 Depression Total Score: 21 023 11:26 AM EST documented as of this encounter Care Teams Binman Relationship Specialty Start Date End Date Carmen Bertrand DO [address] [place] [address] PCP - General Family Medicine 08/18/18 documented as of this encounter
--- OUTSIDE RECORDS SUMMARY | 2024-11-25 18:15 | XMS_ITS | Data Portability ---
Author Organization [employer] [facility], [place] - [facility] Address [address] [place] [phone] Care Team Providers Care Control Center Operator Name Role Phone [facility] OTHER [facility] OTHER Assessment Encounter Date Assessment Date Assessment [...] recorded. Lab rapid flu (A+B) 2024 025 [facility], [address] [place] [address], [phone] 5 15:45:24 rapid SARS CoV 2 Ag, QL IA, respiratory specimen [address], [id number] 5 15:45:08 Referral None recorded. Procedures None recorded. Surgeries None recorded. Imaging None recorded. Medication Orders albuterol sulfate 2.5 mg/3 mL (0.083 %) solution for nebulizatio n 2024 025 [id number], [address] [place], [address], 18:27:03 Patient TargetsNo targets recorded. Patient InstructionsNo [...] Name and Address Organization Details Recorded Time 60240 aspirin medicatio n Not available Not available Not available 10/05/2024 1191 RxNorm Not Available [facility] - production 5 13:36:43 28597 penicilli n V Not available Not available Not available Not available 10/05/2024 7984 RxNorm Not Available [facility] - production 5 13:36:43 07228 penicilli n G procaine medicatio n Not available Not available Not available 10/05/2024 7983 RxNorm Not Available [facility] - production 5 13:36:43 11012 penicilli n G benzathin e medicatio n [...] % 172.72 cm 18 /min 98.4 [degF] 006537. 272 g 131 mm[Hg] 78 mm[Hg] Not [...] SNOMED-CT Code Diagnosis ICD10 Code Diagnosis Note [id number] Reese Jarvis MD Main - [facility] [address] [place] [phone] 10/05/2024 14:55:01 10/07/2024 08:39:41 Wheezing [id number] R06.2 Health Concerns Section Related Observation LastModified by Organization Detai ls LastModified Time None Recorded Concern Status LastModified by Organization Details LastModified Time None Recorded Advance Directives Directive None Recorded Payers Encounter Date Sequence Insurance Name Policy Number Policy Parra Covered Member ID Parra Member ID Guarantor Name 10/05/2024 1 [facility] - DOS ON OR AFTER 2022 - DUAL ELIGIBLE - SENIOR LIVING OPTIONS AND ONE CARE (MEDICARE REPLACEMENT/ADV ANTAGE - HMO) Blaire Santosminnie Jean [id number] Blaire Maria Luisa Jean Notes Date Note Type Note Provider Name and Address Organization Details Recorded Time 10/05/2024 text/html HPI: Call returned to Blaire Jean to triage below. Reports having Headache, Fever, Body Aches, Sore Throat, Runny Nose x 3 days. Per pt seen at [facility] ER on Friday. Per pt seen for CP. Had testing done while in ER. Pt had negative homekit for COVID-19 last night. Reports having SOB with exertion. No wheezing. Pt speaking in clear full sentences. Pt advised of disposition, unable to come into [facility]. Agrees to [facility] for evaluation. Confirmed demographics and allergies. .................. .................. .................. .................. .................. .................. .................. ............... CRC Nurse Triage Notes (Radha Martinez - RN): Chief Complaints: Cough, Fever/chills, Headache, Sore throat, Breathing problems PMH: Hypertension, Asthma, Coronary Artery Disease PMH Reviewed at 10/05/2024 - 13:36 Allergies Reviewed at 10/05/2024 - 13:36 Comments: CRC RN did not require any additional information to process this visit. [employer] Organization Information for Ankita Castillo Business Legal Name: [employer]? Address: [address] [place] [address], Decision Support Manager: Marino Dow MD CLIA No.: [id number] [employer] POC Test Results from Ankita Castillo Rapid COVID antigen (14:56:21) COVID: - Rapid influenza antigen (14:56:24) Flu: - Rapid strep test (14:56:25) Strep: - .................. .................. .................. .................. .................. .................. .................. ............... [employer] Note From Ankita Castillo: Sent to a call for a pt complaining of URI symptoms. SC8 arrives on scene, pt is alert and oriented, airway is patent. Pt complains of URI symptoms since Friday. Pt states she had chest tightness Friday-Friday, but was evaluated at [facility] ED on Friday. Pt states she [...] administered; Lung sounds: clear bilaterally; SpO2:98% RA; [facility] consulted and sends script to pt's pharmacy for Albuterol neb solutions. Red flags discussed. Pt has no further questions. .................. .................. .................. .................. .................. .................. .................. ............... [facility] Consulted: Reese Jarvis .................. .................. .................. .................. .................. .................. .................. ............... Disposition: Fulfilled Reese Jarvis MD [address] [facility],[address], [place], [phone], BHAVIN - BERNADINE CADENA 10/06/2024 15:39:31 OBGyn Episode No OBEpisode recorded.
--- OUTSIDE RECORDS SUMMARY | 2024-11-25 18:15 | XMS_ITS | Encounter Summary ---
Author Organization [employer] Address [address] [facility] 7t [place] [address] Care Team Providers Care Sales Training Coordinator Name Role Phone Carmen Bertrand DO Primary Care Provider + [phone] Reason for Visit * Reason Comments Med Refill Encounter Details Date Type Department Care Team ([facility] st Contact Info) Description 02/24/2024 Refill [facility] [address] [place] [address] Carmen Bertrand DO [address] [place] [address] Social History Tobacco Use Types Packs/Day Years [...] Description 11/30/2024 9:15 AM EDT Office Visit [address] [address] Carmen Bertrand DO [address] [place] [address] 01/24/2025 1:00 PM EDT Clinical Support [address] [address] 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 RN documented as of this encounter Visit Diagnoses Not on filedocumented in this encounter Additional Health Concerns Assessment Noted Time PHQ-9 Depression Total Score: 21 023 11:26 AM EST documented as of this encounter Care Teams Sales Training Coordinator Relationship Specialty Start Date End Date Carmen Bertrand DO [address] [place] [address] PCP - General Family Medicine 08/18/18 documented as of this encounter
[2024-11-25] MEDS: Aspirin 81 MG TAB.CHEW 324 MG PO (18:20)
[2024-11-25 18:28] LABS: Troponin-I High Sensitivity < 2.7 ng/L (<3.5-17.0)
[2024-11-25] MEDS: Nitroglycerin 0.4 MG TAB.SUBL SUBLINGUAL (18:59)
--- NOTE | 2024-11-25 19:13 | PC.NURSE ---
PT medicated PER PRN OCT PT'S BP 116/72 Provider verbal order to give nitro & reassess.
--- NOTE | 2024-11-25 20:41 | PC.NURSE ---
Confirmed w/ provider just heparin bolus no gtt ordered. Provider to check again w/ cards. PTT ordered.
[2024-11-25] MEDS: Heparin Sodium,Porcine 5,000 UNIT/ML VIAL 4000 UNIT IVPUSH (21:03)
--- NOTE | 2024-11-25 21:04 | PC.NURSE ---
Spoke to patient w/ fire prevention inspector Tay. Confirmed patient understood plan of care and why she was being transferred to [facility]. Explained need for second line, and need for BP to be more accurately measured on upper arm. Patient verbalized understanding. Patient weighed by Laura DE LEON on standing scale, weight updated in chart. Second IV line started in R AC, bolus of heparin given AFTER PTT/PT INR drawn. Waiting for heparin gtt to be verified by pharmacy to hang. Pt currently resting quietly on stretcher, awaiting transfer to [facility].
[2024-11-25 21:13] LABS: INTERNATIONAL NORM RATIO 1.1 (0.9-1.1); Prothrombin Time 12.3 SEC (10.9-12.4)
[2024-11-25 21:17] LABS: Partial Thromboplastin Time 37.4 SEC (26.0-36.8)
[2024-11-25] MEDS: Heparin Sodium,Porcine/1/2NS 25,000 UNIT/250 ML IV.SOLN 10 UNIT IVCONT (21:18)
--- NOTE | 2024-11-25 21:20 | PC.NURSE ---
heparin gtt started w/ second RN Anamika, PTT not yet resulted from lab.
--- NOTE | 2024-11-25 22:05 | PC.NURSE ---
RN to RN report given to Arlen on M7 at [facility], all questions answered, patient to be transferred to [facility] once transport is available.
== END 2024-11-25 22:42 | disposition short-term general hospital (02) ==
PROVIDERS: Physician Assistant; Emergency Provider Emergency Medicine
DX: R07.89 Other chest pain (principal); I25.2 Old myocardial infarction; M25.512 Pain in left shoulder; R06.02 Shortness of breath; F17.210 Nicotine dependence, cigarettes, uncomplicated; Z03.818 Encounter for observation for suspected exposure to other biological agents ruled out; Z79.899 Other long term (current) drug therapy
CPT/HCPCS: 0241U; 36415; 71046; 80048; 80076; 83735; 83880; 84484; 85025; 85610; 85730; 93005; 96374; 99285; J1644

== ENCOUNTER → 2024-11-25 14:39 | Outpatient (BNV) | payer OTHER, SELFPAY ==
[2022-10-22 13:00] VITALS: BP 128/72; BP 148/88; BMI 63.7
[2023-01-30 14:13] VITALS: BP 140/60
== END ==
PROVIDERS: Emergency Provider Emergency Medicine; Visit Provider Internal Medicine Cardiovascular Disease
DX: R00.1 Bradycardia, unspecified (principal)
CPT/HCPCS: 93010

== ENCOUNTER → 2024-11-25 14:48 | Outpatient (BNV) | payer OTHER, SELFPAY ==
[2022-10-22 13:00] VITALS: BP 128/72; BP 148/88; BMI 63.7
[2023-01-30 14:13] VITALS: BP 140/60
== END ==
PROVIDERS: Visit Provider Radiology Diagnostic Radiology
DX: R07.9 Chest pain, unspecified (principal)
CPT/HCPCS: 71046

== ENCOUNTER → 2024-11-26 23:59 | Outpatient (BNV) | payer OTHER, SELFPAY ==
[2022-10-22 13:00] VITALS: BP 128/72; BP 148/88; BMI 63.7
[2023-01-30 14:13] VITALS: BP 140/60
== END ==
PROVIDERS: Visit Provider Internal Medicine Cardiovascular Disease
DX: I20.0 Unstable angina (principal); R07.9 Chest pain, unspecified
CPT/HCPCS: 92978; 93458; 99152

== ENCOUNTER 2024-12-13 09:55 | Outpatient (AMB) | payer OTHER, SELFPAY ==
[2022-10-22 13:00] VITALS: BP 128/72; BP 148/88; BMI 63.7
[2023-01-30 14:13] VITALS: BP 140/60
[2024-12-13 09:56] VITALS: BP 96/62; PULSE 73; BMI 55.7
--- NOTE | 2024-12-13 09:56 | A.OFFVIS_ITS ---
Vital Signs 12/13/24 09:56 Height 5 ft 7 in Weight 355 lb 6.162 oz BMI 55.7 BP 96/62 Blood Pressure Location Lt brachial Position Sitting Pulse 73 Intake Visit Reasons: cath [address] mcwilliams pt Missile Inspector Preflight Required: Yes Missile Inspector Preflight Language: Azeri Allergies penicillin G [PENICILLIN G] Allergy (Severe, Verified 12/13/24 09:59) DIFFICULTY BREATHING semaglutide [From Ozempic] Adverse Reaction (Severe, Verified 12/13/24 09:59) Stomach Upset Medication List - Last Reconciled 12/13/24 by Martine Shirley DRY KILN FEEDERBhumikaC albuterol sulfate 90 mcg/actuation (Ventolin HFA) 2 puffs PO Q4-6H PRN albuterol sulfate 2.5 mg inhalation Q4-6H PRN allopurinol 100 mg PO DAILY 90 days amlodipine (Norvasc) 5 mg PO DAILY aspirin 1 tab PO DAILY atorvastatin (Lipitor) 80 mg PO BEDTIME benzoyl peroxide 10% 1 appl topical DAILY blood pressure test kit-large As directed cholecalciferol (vitamin D3) 50 mcg PO DAILY econazole nitrate 1% 1 appl topical BID emtricitabine-tenofovir (TDF) 200-300 mg 1 tab PO DAILY ezetimibe 10 mg PO DAILY famotidine 40 mg PO BEDTIME PRN fluticasone propionate 50 mcg/actuation 2 sprays intranasal DAILY fluticasone propionate 110 mcg/actuation 2 puffs inhalation BID hydrochlorothiazide 12.5 mg PO DAILY hydroquinone 4% 1 appl topical BID isosorbide mononitrate ER 60 mg PO DAILY lisinopril 30 mg PO DAILY metformin ER 500 mg PO DAILY@1700 metoprolol succinate ER 50 mg PO DAILY metronidazole 0.75% 1 appl topical DAILY PRN nitroglycerin 0.4 mg sublingual Q5M PRN omeprazole 40 mg (2 x 20 mg) PO DAILY pyridoxine (vitamin B6) 100 mg PO DAILY 90 days tirzepatide (weight loss) (Zepbound) 2.5 mg subcut TH topiramate 50 mg PO BID tramadol 50 mg PO Q8H PRN HPI HPI cath 11/[address] mcwilliams pt: Details: Blaire is a 49-year-old female past medical history of morbid obesity, hypertension, hyperlipidemia, smoking, sleep apnea with CPAP use, NSTEMI, KAMARI to the proximal LAD 2022, recent secondary NSTEMI in the setting of renal calculi, followed by abnormal nuclear stress test. She initially had no symptoms then did have chest discomfort and went to the [facility] emergency room. She underwent cardiac catheterization showing nonobstructive coronary disease, patent LAD stent. She now presents for follow-up. Today she reports that she does have tenderness in her anterior chest to palpation. She does get other chest discomfort as well but has not had since her recent catheterization. She is not getting chest discomfort brought on by physical exertion. No concerning shortness of breath, PND, orthopnea or edema. No lightheadedness, presyncope, syncope. She says her activity is limited by bilateral knee pain. Right radial catheterization site feels good. Taking meds as directed. Does have some lightheadedness with position changes at times. Certified university intern used. [facility] Medical History Morbid obesity Hidradenitis suppurativa CAD (coronary artery disease) Subsequent non-ST elevation myocardial infarction (NSTEMI) within 4 weeks of initial infarction Non-ST elevation [place] (NSTEMI) YAMILETH on CPAP Hyperlipidemia PTSD (post-traumatic stress disorder) Fatty liver Smoker Depression Obesity Leukocytosis Frequent UTI Asthma Mass of throat Chronic pain Kidney stone Migraine HTN (hypertension) Surgical History H/O excision of mass (06/28/24) Hx of cystoscopy Stented coronary artery History of heart artery stent History of lumpectomy of left breast (10/22/21) History of lithotripsy History of endometrial ablation Hx of colonoscopy History of breast lump/mass excision History of tonsillectomy H/O: hysterectomy Family History Father Hypertension Mother Hypertension Osteoporosis Hx of bilateral cataract extraction Paternal Grandmother Diabetes Sister Asthma Maternal Uncle Throat cancer Maternal Aunt Ovarian cancer Breast cancer Social History Household Members: Family Housing: Apartment Are you a primary career services manager to a significant other at home: No Do you presently have visiting nurse or other home services: Yes (dynamometer tester services) Alcohol intake: never Comment: pt refusing alarms Patient Tobacco Use Status: Current everyday Tobacco user Tobacco use type: Cigarette Cigarette Packs Per Day: 0.5 Cigarettes Per Day: 10 Years Smoked: 30 e-Cigarette/Vaping Use: Never Used Second Hand Smoke Exposure: No Advance Directives Date on File: 10/28/22 service: No Current occupational status: unemployed and retired Review of Systems Const All systems reviewed & are unremarkable except as noted in HPI and below ENT Denies dizziness Card Reports chest pain, Denies chest pain at rest, Denies chest pain with activity, Denies rapid heart rate, Denies pedal edema, Denies edema, Denies leg edema, Denies lightheadedness, Denies palpitations, Denies dyspnea, Denies dyspnea on exertion and Denies orthopnea Resp Denies cough, Denies dyspnea and Denies dyspnea on exertion GI Denies hematochezia and Denies change in stool character Musc Denies abnormal gait, Denies limited range of motion, Denies muscle cramps, Denies muscle weakness, Denies numbness, Denies radiating pain into limb, Denies stiffness and Denies tingling Neuro Denies abnormal gait, Denies dizziness, Denies numbness and Denies tingling Endo Denies palpitations Physical Exam Vital Signs: Last Vital Signs Pulse 73 12/13/24 09:56 BP 96/62 12/13/24 09:56 BMI result Body Mass Index 55.7 Const General: cooperative, healthy appearing, comfortable and no acute distress Orientation/consciousness: patient oriented x3 Neck Neck: Yes normal visual inspection and Yes no JVD Resp Effort & Inspection: normal respiratory effort Auscultation: clear to auscultation bilaterally, no crackles, no rales, no rhonchi and no wheezes Cardio Rate: regular rate Rhythm: regular rhythm Heart sounds: S1 normal heart sound present, S2 normal heart sound present, no gallops, no murmurs and no rubs Neuro General: patient oriented x3 Extrem General: Yes normal to inspection, No no pedal edema and No calf tenderness Psych Appearance: grossly normal Mental Status: mental status grossly normal Speech and movement: Normal speech and movement present Office Procedures EKG Details: Today, read by me, Normal sinus rhythm, rate 73, Qtc 438ms [id number], Complete Assessment & Plan Assessment & Plan (1) CAD (coronary artery disease): Comment: Lad stent 2022 Code(s): I25.10 - Atherosclerotic heart disease of [place] coronary artery without angina pectoris Category: Medical Plan: History of CAD with LAD stent. Recent secondary NSTEMI in the setting of pain from noncardiac issue. Her nuclear stress test did show mild intensity ischemia in the mid to distal LAD territory which was being managed medically due to the absence of symptoms. Echocardiogram 11/07/2024 shows EF 60-65%, grade 1 diastolic dysfunction, early mild . She then presented to the emergency room on 11/25 with chest discomfort that improved some with nitroglycerin, troponins normal. She underwent cardiac catheterization showing left main ostial 40% stenosis, lad stent patent. Test results reviewed with her in detail. Signs and symptoms of true angina discussed. Continue aspirin indefinitely. Continue high-dose atorvastatin and Zetia with ideal LDL goal less than 70. Continue metoprolol and isosorbide. Will reduce lisinopril dose down to 20 mg daily from 30 mg due to reports of lightheadedness and low blood pressure reading. Cardiology follow-up 6 months, sooner if needed. (2) S/P cardiac catheterization: Comment: 10/28/2022, left main normal, lad mild plaque proximal to the stent, stent patent , left circumflex and RCA normal 11/26/2024 left main ostial 40% stenosis, proximal LAD tortuous, intravascular ultrasound shows no plaque, lad stent patent, left circumflex normal, RCA minimal irregularities. Code(s): Z98.890 - Other specified postprocedural states Category: Surgical Plan: Right radial catheterization site well healed (3) Non-STEMI (non-ST elevated myocardial infarction): Code(s): I21.4 - Non-ST elevation (NSTEMI) myocardial infarction Category: Medical Plan: As above (4) HTN (hypertension): Code(s): I10 - Essential (primary) hypertension Category: Medical Qualifiers: Hypertension type: primary hypertension Qualified Code(s): I10 - Essential (primary) hypertension Plan: Blood pressure goal less than 130/80. Blood pressure low today, also reports of lightheadedness at times. I will reduce lisinopril down to 20 mg daily from 30 mg daily. Continue isosorbide, hydrochlorothiazide, metoprolol. Further med adjustments can be made if she continues to have low pressure readings. Discussed maintaining good hydration. (5) Hyperlipidemia: Code(s): E78.5 - Hyperlipidemia, unspecified Category: Medical Plan: [place] LDL goal less than 70. Will plan for a recheck of fasting lipids in the near future. Continue high-dose atorvastatin and Zetia. (6) Morbid obesity: Code(s): E66.01 - Morbid (severe) obesity due to excess calories Category: Medical Plan: She is on medications for weight loss. (7) Preop cardiovascular exam: Code(s): Z01.810 - Encounter for preprocedural cardiovascular examination Category: Medical Plan: Preop for colonoscopy. After 01/04/25 she may proceed with low to intermediate cardiac risk. Plan Time spent on chart review, documentation, interview and assessment Medications: New atorvastatin (Lipitor) 80 mg PO BEDTIME 90 tabs 3RF aspirin 81 mg PO DAILY 90 tabs 3RF lisinopril dose reduced 20 mg PO DAILY 90 tabs 3RF Refilled ezetimibe 10 mg PO DAILY 90 tabs 3RF Coding Level of Care Code Est Pt Level 4 (20907) Complex EM visit Add On G2211 Diagnoses CAD (coronary artery disease) I25.10 S/P cardiac catheterization Z98.890 Non-STEMI (non-ST elevated myocardial infarction) I21.4 Primary hypertension I10 Hypertension type: primary hypertension Hyperlipidemia E78.5 Morbid obesity E66.01 Preop cardiovascular exam Z01.810 CPT Codes EKG - CPT: 37169-[id number], Complete ([id number]) Time Spent (min) 30
--- OUTSIDE RECORDS SUMMARY | 2024-12-13 11:23 | XMS_ITS | Encounter Summary ---
Author Organization [employer] Address [address] [place] [address] Care Team Providers Care Global Program Director Name Role Phone Carmen Bertrand DO Primary Care Provider + [phone] Reason for Visit * Reason Comments Med Refill Encounter Details Date Type Department Care Team ([facility] st Contact Info) Description 05/12/2024 Refill [facility] PEDS [address] [place], [place] [phone] Carmen Bertrand DO [address] [facility] [place] [address] Chronic low back pain, unspecified back pain [...] Description 01/24/2025 1:00 PM EDT Clinical Support [facility]INE [address] [place] [id number] 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, RULA documented as of this encounter Visit Diagnoses Diagnosis Chronic low back pain, unspecified back pain laterality, unspecified whether sciatica present documented in this encounter Additional Health Concerns Assessment Noted Time PHQ-9 Depression Total Score: 22 024 11:00 AM EDT documented as of this encounter Care Teams Global Program Director Relationship Specialty Start Date End Date Carmen Bertrand DO [address] [place] [address] PCP - General Family Medicine 08/18/18 documented as of this encounter
--- OUTSIDE RECORDS SUMMARY | 2024-12-13 11:23 | XMS_ITS | Encounter Summary ---
Author Organization [employer] Address [address] [facility] 7[address] [place] [address] Care Team Providers Care Sap Business Objects Developer Name Role Phone Carmen Bertrand DO Primary Care Provider + [phone] Reason for Visit * Reason Comments Med Refill Encounter Details Date Type Department Care Team ([facility] Contact Info) Description 10/18/2022 Refill [facility] [address] [place] [address] Carmen Bertrand DO [address] [place] [address] Social History Tobacco Use Types Packs/Day Years [...] Upcoming Encounters Date Type Department Care Team ([facility] Contact Info) Description 01/24/2025 1:00 PM EDT Clinical Support [facility] [address] [place] [address] 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 RN documented as of this encounter Visit Diagnoses Not on filedocumented in this encounter Additional Health Concerns Assessment Noted Time PHQ-9 Depression Total Score: 16 023 12:22 PM EST documented as of this encounter Care Teams [employer] Business Objects Developer Relationship Specialty Start Date End Date Carmen Bertrand DO [address] [place] [address] PCP - General Family Medicine 08/18/18 documented as of this encounter
--- OUTSIDE RECORDS SUMMARY | 2024-12-13 11:23 | XMS_ITS | Encounter Summary ---
Author Organization [employer] Address [address] [place] [address] 7[address] [place] [address] Care Team Providers Care Research Executive Name Role Phone Carmen Bertrand DO Primary Care Provider [phone] Encounter Details Date Type Department Care Team (Late st Contact Info) Description 08/13/2022 Orders Only [facility] MED & PEDS [address] [place] [address] Carmen Perez LPN Social History Tobacco Use [...] Description 01/24/2025 1:00 PM EDT Clinical Support [facility] [address] [place] [address] 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, RN documented as of this encounter Visit Diagnoses Not on filedocumented in this encounter Care Teams Research Executive Relationship Specialty Start Date End Date Carmen Bertrand DO [address] [place] [address] PCP - General Family Medicine 08/18/18 documented as of this encounter
--- OUTSIDE RECORDS SUMMARY | 2024-12-13 11:23 | XMS_ITS | Data Portability ---
Author Organization [employer] [facility] [place] [facility] Address [address] [place] [phone] Care Team Providers Care Corporate Law Assistant Name Role Phone [facility] OTHER [facility] OTHER Assessment Encounter Date Assessment Date Assessment [...] recorded. Lab rapid flu (A+B) 2024 025 [facility], [address] [place] [address], [phone] 5 15:45:24 rapid SARS CoV 2 Ag, QL IA, respiratory specimen [address], [phone] 5 15:45:08 Referral None recorded. Procedures None recorded. Surgeries None recorded. Imaging None recorded. Medication Orders albuterol sulfate 2.5 mg/3 mL (0.083 %) solution for nebulizatio n 2024 025 [facility][id number], [address] [place], [address], 18:27:03 Patient TargetsNo targets recorded. Patient InstructionsNo [...] Name and Address Organization Details Recorded Time 24922 aspirin medicatio n Not available Not available Not available 10/05/2024 1191 [facility] Not Available [facility] - production 5 13:36:43 16423 penicilli n V Not available Not available Not available Not available 10/05/2024 7984 RxNorm Not Available [facility] - production 5 13:36:43 91608 penicilli n G procaine medicatio n Not available Not available Not available 10/05/2024 7983 RxNorm Not Available [facility] - production 5 13:36:43 17505 penicilli n G benzathin e medicatio n [...] % 172.72 cm 18 /min 98.4 [degF] 135469. 272 g 131 mm[Hg] 78 mm[Hg] Not [...] SNOMED-CT Code Diagnosis ICD10 Code Diagnosis Note [id number] Reese Jarvis MD Main - [facility] [address] [place] [phone] 10/05/2024 14:55:01 10/07/2024 08:39:41 Wheezing 19605618 R06.2 Health Concerns Section Related Observation LastModified by Organization Detai ls LastModified Time None Recorded Concern Status LastModified by Organization Details LastModified Time None Recorded Advance Directives Directive None Recorded Payers Encounter Date Sequence Insurance Name Policy Number Policy Parra Covered Member ID Parra Member ID Guarantor Name 10/05/2024 1 [facility] - DOS ON OR AFTER 2022 - DUAL ELIGIBLE - PENITENTIARY OPTIONS AND ONE CARE (MEDICARE REPLACEMENT/ADV ANTAGE - HMO) Blaire Santosminnie Jean [id number] Blaire Maria Luisa Jean Notes Date Note Type Note Provider Name and Address Organization Details Recorded Time 10/05/2024 text/html HPI: Call returned to Blaire Jean to triage below. Reports having Headache, Fever, Body Aches, Sore Throat, Runny Nose x 3 days. Per pt seen at [facility] on Friday. Per pt seen for CP. Had testing done while in ER. Pt had negative homekit for COVID-19 last night. Reports having SOB with exertion. No wheezing. Pt speaking in clear full sentences. Pt advised of disposition, unable to come into [facility]. Agrees to [facility] for evaluation. Confirmed demographics and allergies. .................. .................. .................. .................. .................. .................. .................. ............... [facility] Nurse Triage Notes (Radha Martinez - RN): Chief Complaints: Cough, Fever/chills, Headache, Sore throat, Breathing problems PMH: Hypertension, Asthma, Coronary Artery Disease PMH Reviewed at 10/05/2024 - 13:36 Allergies Reviewed at 10/05/2024 - 13:36 Comments: CRC RN did not require any additional information to process this visit. [employer] Organization Information for Ankita Castillo Business Legal Name: [employer] Address: [address] [place] [id number], Systems Integration Analyst: Marino Dow MD CLIA No.: [id number] [employer] POC Test Results from Ankita Castillo Rapid COVID antigen (14:56:21) COVID: - Rapid influenza antigen (14:56:24) Flu: - Rapid strep test (14:56:25) Strep: - .................. .................. .................. .................. .................. .................. .................. ............... Blower Mechanic Note From Ankita Castillo: Sent to a call for a pt complaining of URI symptoms. [facility]8 arrives on scene, pt is alert and oriented, airway is patent. Pt complains of URI symptoms since Friday. Pt states she had chest tightness Friday-Friday, but was evaluated at [facility] ED on Friday. Pt states she [...] administered; Lung sounds: clear bilaterally; SpO2:98% RA; [facility] consulted and sends script to pt's pharmacy for Albuterol neb solutions. Red flags discussed. Pt has no further questions. .................. .................. .................. .................. .................. .................. .................. ............... [facility] Consulted: Reese Jarvis .................. .................. .................. .................. .................. .................. .................. ............... Disposition: Fulfilled Reese Jarvis MD [address] [facility],[address], [place], [phone], BHAVIN - BERNADINE CADENA 10/06/2024 15:39:31 OBGyn Episode No OBEpisode recorded.
--- OUTSIDE RECORDS SUMMARY | 2024-12-13 11:23 | XMS_ITS | Clinical Summary ---
Author Organization [employer] Address [address] [facility] [address] [place] [address] Care Team Providers Care Putter In Name Role Phone EdilsonCarmen dixon Primary Care Provider [phone] Allergies Active Allergy Reactions Criticality Noted Date [...] (one) time per week. 1 kit Active benzoyl peroxide (PanOxyl Foaming Wash) 10 % external washIndications:F olliculitis Apply topically Once per day. 227 g 2 024 2024 Active metFORMIN XR (Glucophage-XR) 500 [...] day. 30 tablet 11 025 2025 Active ergocalciferol (Vitamin D2) 1.25 MG (44482 UT) capsule Take 1 capsule (1.25 mg) [...] 6 HOURS NEEDED 18 g 025 Active topiramate 50 MG tabletIndications :Nonintractable headache, unspecified chronicity pattern, unspecified headache type TAKE 1 TABLET BY MOUTH TWICE DAILY 60 tablet 5 025 Active metoprolol succinate XL (Toprol-XL) 50 MG 24 hr tabletIndications :Hypertension, unspecified type TAKE 1 TABLET BY MOUTH EVERY DAY 90 tablet 1 025 Active emtricitabine-ten ofovir DF (Truvada) 200-300 [...] by mouth Once per day. 025 Active Tirzepatide-Weigh t Management (Zepbound) 5 MG/0.5ML solution auto-injector Inject 0.5 mL (5 mg) under the skin 1 (one) time per week. 2 mL 3 025 Active nitroglycerin (Nitrostat) 0.[address] 1 tablet (0.4 mg) under the tongue every 5 (five) minutes if needed for chest pain. X 3 doses. Call 911 if chest pain does not resolve 30 tablet 025 2025 Active hydroquinone 4 % creamIndications: Acanthosis nigricans APPLY TOPICALLY TWICE DAILY 28.35 g 1 Active metroNIDAZOLE (Metrogel) 0.75 % gelIndications:Me lasma APPLY TOPICALLY TO THE AFFECTED AREA(S) ON THE FACE EVERY DAY NEEDED 45 g 1 Active famotidine (Pepcid) 40 MG tablet TAKE 1 TABLET BY MOUTH EVERY DAY AT BEDTIME NEEDED FOR HEARTBURN 30 tablet 3 Active traMADol (Ultram) 50 MG tabletIndications :Chronic low back pain, unspecified back pain laterality, unspecified whether sciatica present Take 1 tablet (50 mg) by mouth every 8 (eight) hours if needed for severe pain for up to 28 days. 84 tablet 025 2024 Active famotidine (Pepcid) 40 MG tablet TAKE 1 TABLET BY MOUTH EVERY DAY AT BEDTIME NEEDED FOR HEARTBURN 30 tablet 3 024 2024 Discontinued(R eorder (will not trigger notification to Pharmacy)) hydroquinone 4 % creamIndications: Acanthosis nigricans Apply topically 2 times daily. 28.35 g 1 024 2024 Discontinued Tirzepatide-Weigh t Management (Zepbound) 2.5 MG/0.5ML solution auto-injector Inject 0.5 mL (2.5 mg) under the skin 1 (one) time per week. 2 mL 3 025 2024 Discontinued(D ose adjustment) Brilinta 90 MG tablet TAKE 1 TABLET BY MOUTH TWICE DAILY 60 tablet 1 025 2024 Discontinued metroNIDAZOLE (Metrogel) 0.75 % gelIndications:Me lasma APPLY TOPICALLY TO THE AFFECTED AREA(S) ON FACE EVERY DAY NEEDED 45 g 1 025 04/22/ 2025 Discontinued traMADol (Ultram) 50 MG tabletIndications :Chronic low back pain, unspecified back pain laterality, unspecified whether sciatica present Take 1 tablet (50 mg) by mouth every 8 (eight) hours if needed for severe pain for up to 28 days. Do not start before November 11, 2024. 84 tablet 025 2024 Discontinued(R eorder (will not trigger notification to Pharmacy)) Active Problems Problem Noted Date Diagnosed Date Coronary artery disease 08/24/2024 Overview (08/24/2024): Lad stent S/P cardiac [...] knees 01/05/2024 Osteoarthritis of knees, bilateral 02/21/2023 Chronic low back pain 02/21/2023 Leukocytosis [...] Problem Noted Date Diagnosed Date Resolved Date Coronary arteriosclerosis 02/21/2023 Acute non-ST segment elevati on myocardial infarction 06/12/2022 09/19/2022 Migraine without aura, not refractory 09/27/2016 09/19/2022 Kidney stone 06/05/2015 09/19/2022 Steatosis of liver 06/05/2015 Tobacco dependence syndrome 06/05/2015 09/19/2022 Encounters Date Type Department Care Team Description 12/07/2024 Refill [facility] MED & PEDS [address] [place] [address] Carmen Bertrand DO Chronic low back pain, unspecified back pain laterality, unspecified whether sciatica present 12/05/2024 Refill [facility] MEDICINE [address] [place] [address] Carmen Bertrand DO 12/05/2024 Refill [facility] MEDICINE [address] [place] [address] Irina Tallye MD Melasma 12/03/2024 Refill [facility] MEDICINE [address] [place] [address] Alexandra Lisa MD Acanthosis nigricans 12/01/2024 Telephone [facility] MEDICINE [address] [place] [address] Lisa Rios, RULA Care Coordination 11/30/2024 9:15 AM EDT Office Visit [facility] MEDICINE [address] [place] [address] Carmen Bertrand DO Coronary artery disease involving dry creek coronary artery of dry creek heart, unspecified whether angina present (Primary Dx) 11/30/2024 Travel 11/19/2024 Refill [facility] MED & PEDS [address] [place] [address] Carmen Bertrand DO 11/12/2024 Patient Outreach [facility] MED & PEDS [address] [place] [address] Carmen Bertrand DO Transition Of Care (Tcm) (HDF scheduled. ) 11/12/2024 Telephone [facility] MEDICINE [address] [place] [address] Carmen Bertrand DO Hospital Follow-up 11/07/2024 Orders Only GENERIC EXTERNAL DATA DEPARTMENT Provider, Generic External Data 11/05/2024 Refill [facility] MEDICINE [address] [place] [address] Carmen Bertrand DO On pre-exposure prophylaxis for HIV 11/04/2024 Refill [facility] MED & PEDS [address] [place], [place] [phone] Carmen Bertrand DO Chronic low back pain, unspecified back pain laterality, unspecified whether sciatica present 11/01/2024 Telephone [facility] MEDICINE [address] [place] [address] Carmen Bertrand DO telephone call 10/21/2024 1:30 PM EST Clinical Support [facility] MEDICINE [address] [place] [address] 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, 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 bilateral low back pain without sciatica (Primary Dx) 10/21/2024 Travel 10/20/2024 2:30 PM EST Office Visit [facility] OPTOMETRY [address] [place] [address] Lewis, Tova, OD Presbyopia (Primary Dx); Cup to disc asymmetry, left 10/20/2024 Travel 10/11/2024 Refill [facility] MEDICINE [address] [place] [address] Carmen Bertrand DO Hypertension, unspecified type 10/06/[address] [address] Carmen Bertrand DO Prior Authorization 10/06/2024 Refill [facility] MED & PEDS [address] [place] [address] Ирина Mckeon MD Nonintractable headache, unspecified chronicity pattern, unspecified headache type 10/05/2024 Refill [facility] MED & PEDS [address] [place] [address] Carmen Bertrand DO Chronic low back pain, unspecified back pain laterality, unspecified whether sciatica present 10/05/[address] [address] Carmen Bertrand DO Nurse Triage 10/05/[address] [address] Carmen Bertrand DO Mild persistent asthma without complication; Melasma 10/01/2024 Refill [facility] MEDICINE [address] [place] [address] Carmen Bertrand DO 09/30/2024 Orders Only GENERIC EXTERNAL DATA DEPARTMENT Provider, Generic External Data 09/29/2024 Orders Only GENERIC EXTERNAL DATA DEPARTMENT Provider, Generic External Data 09/27/2024 11:45 AM EST Office Visit [address] [address] Carmen Bretrand DO Positive colorectal cancer screening using Cologuard test (Primary Dx) 09/27/2024 Travel 09/21/[address] [address] Trista Alford, RN Results 09/17/2024 Orders Only GENERIC EXTERNAL DATA DEPARTMENT Provider, Generic External Data 09/17/2024 Refill [facility] MED & PEDS [address] [place] [address] Carmen Bertrand DO 09/15/[address] [address] Carmen Bertrand DO Appointment Request from Last 3 Months Immunizations Name Administration [...] Sign Reading Time Taken Comments Blood Pressure 130/70 11/30/2024 9:27 AM EDT Pulse 80 11/30/2024 9:27 AM EDT Temperature 36.3 ??C (97.3 ??F) 11/30/2024 9:27 AM ED T Respiratory Rate 21 11/30/2024 9:27 AM EDT Oxygen Saturation 98% 11/30/2024 9:27 AM EDT Inhaled Oxygen Concentration - - Weight 163 kg (359 lb) 11/30/2024 9:27 AM EDT Height 170.2 cm (5' 7 ) 11/30/2024 9:27 AM EDT Body Mass Index 56.23 11/30/2024 9:27 AM EDT Plan of Treatment Upcoming Encounters Date Type Department Care Team (Late st Contact Info) Description 01/24/2025 1:00 PM EDT Clinical Support [address] [address] 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, RN Health Maintenance Due Date Last Done Comments CT Colonography 1975 Colonoscopy 1975 FIT 1975 FOBT 1975 Sigmoidoscopy 1975 Family Planning (PISQ) 1991 Hepatitis A Vaccines (1 of 2 - Risk 2-dose series) 1995 COVID-19 Vaccine ( - season) 2024 06/07/2021, 01/29/2021 SDOH Screening 04/27/2025 04/27/2024 Diabetes: Hemoglobin A1C 08/24/2025 025, 04/27/2024, 04/27/2024, Additional history exists Alcohol/Substance Use Screening 09/27/2025 09/27/2024 Depression Screening 09/27/2025 09/27/2024, 04/27/20 24 Tobacco Screening 11/30/2025 11/30/2024 Zoster Vaccines (1 of 2) 2026 Mammogram [...] DIFFERENTIAL Routine 11/07/2024 4:29 PM EDT POCT ANALIAS-14 URINE DRUG SCREEN Routine 10/21/2024 2:02 PM [...] of left foot Healthcare maintenance HIV ANTIBODY/ANTIGEN (KS DP) Routine 02/21/2023 2:35 PM EDT from Last 3 Months or Most Recently Relevant to Health Maintenance Results * NM heart perfusion SPECT stress and rest (11/08/2024 9:19 AM EDT) Anatomical Region Laterality Modality Body Nuclear Medicine 11/08/2024 9:19 AM EDT Narrative 11/09/2024 12:33 PM EDT ? [place] [facility] ?[address] ?[place] [address] ?Nuclear Medicine Report ? Signed ? Patient: Maria Luisa Jean,Blaire ?MR#: M ?? [id number] ? : 1975 ?Acct:[id number] ? Age/Sex: 49 / F ?ADM Date: 11/07/24 ? Loc: HO.IMC ?475-1 ? Attending Dr: Gregg Chavez MD ? Ordering Physician: Mars Hutchinson MD ?? Date of Service: 11/08/24 ?? Procedure(s): NM andrew perf SPECT rest ?? str ?? Accession Number(s): [id number] ? cc: Carmen Bertrand DO; Mars Hutchinson [...] DD/ 0919 ? TD/TT: 11/09/24 0955 ? Developer Designer: ? Procedure Note Donclintonter, Image - 11/09/2024 [place] [address] Nuclear Medicine Report Signed Patient: Christianne Quiroz#: M [id number] : 1975Acct:[id number] Age/Sex: 49 / FADM Date: 11/07/24 Loc: [facility] 475-[address]: Gregg Chavez MD Ordering Physician: Mars Hutchinson MD Date of Service: 11/08/24 Procedure(s): NM andrew perf SPECT rest str Accession Number(s): [id number] cc: Carmen Bertrand DO; Mars Hutchinsno MD Lexiscan Myocardial perfusion study Indication: Elevated [...] Mars Hutchinson MD 11/09/2024 12:31 PM EDT Dictated By: Mars Hutchinson MD Signed By: <Electronically signed by Mars Hutchinson MD in OV> 11/09/24 1231 DD/ 0919 TD/TT: 11/09/24 0955 Developer Designer: [facility] External Provider IMG NM PROCEDURES Edited Result - Final * (ABNORMAL) High Sensitivity Troponin I (11/07/2024 7:34 PM EDT) Only the most recent of4 resultswithin the time period is included. TROPONIN I HIGH SENSITIVITY 85.7(HH) <3.5 - 17.0 ng/L [facility] Comment:Critical value for t est(s): HS-TNI Results called to rickie back by:ROSANNE Person calling:ALKAAB Date: 11/07/2024Time:20:02.The [employer] high sensitivity Troponin-I results should beused in conjunction with other diagnostic information suchas ECG, clinical observations and information, and patientsymptoms to aid in the diagnosis of [place]. 11/07/2024 7:34 PM EDT 11/07/2024 7:37 PM EDT Generic External Data Provider LAB BLOOD ORDERAB LES Final Result Performing Organization Address [facility] de Phone Number [facility] [address] [place] [phone] * (ABNORMAL) Partial Thromboplastin Time, Activated (APTT) (11/07/2024 7:34 PM EDT) Partial Thromboplastin Time 36.9(H) 26.0 - 36.8 SEC [facility] Comment:For information rega rding the monitoring of direct thrombininhibitors, please refer to Pharmacy. 11/07/2024 7:34 PM EDT 11/07/2024 7:37 PM EDT Generic External Data Provider LAB BLOOD ORDERAB LES Final Result Performing Organization Address [facility] de Phone Number [facility] [address] [place] [phone] * CT Abdomen Pelvis w/o Contrast (11/07/2024 7:25 PM EDT) Anatomical Region Laterality Modality Body, Pelvis, Abdomen Computed T omography 11/07/2024 7:25 PM EDT Narrative 11/07/2024 7:26 PM EDT ? [facility] ?[address] ?[place] [address] ? CT Scan Report ? Signed ? Patient: Fermin Quirozssica ?MR#: M ?? [id number] ? : 1975 ?Acct:[id number] ? Age/Sex: 49 / F ?ADM Date: 03/23/25 ? Loc: HO.ED ? Attending Dr: ? Ordering Physician: Marco Lugo MD ?? Date of Service: 11/07/24 ?? Procedure(s): CT abdomen pelvis wo IV con ?? Accession Number(s): [id number] ? cc: Carmen Bertrand DO; Marco Lugo MD ? Report Number: ?? [id number]: Total DLP = 1392.00 mGy-cm ? CLINICAL HISTORY: left flank pain ? CT abdomen and pelvis without contrast ? Comparison: DX - XR HIP RT MIN 2V - 09/17/24 11:03 EST ?? US/SR - US ABDOMEN COMPLETE - 05/07/24 09:08 EDT ?? CT/NH/SR - CT ABDOMEN PELVIS WO IV CON [...] ? DD/ 24 ? TD/TT: 11/07/241924 ? Developer Designer: ? Procedure Note Dawna Lora - 11/07/[address] [address] [address] Scan Report Signed Patient: Blaire Quiroz#: M [id number] : 1975Acct:[id number] Age/Sex: 49 / FADM Date: 11/07/24 Loc: HO.ED Attending Dr: Ordering Physician: Marco Lugo MD Date of Service: 11/07/24 Procedure(s): CT abdomen pelvis wo IV con Accession Number(s): [id number] cc: Carmen Bertrand DO; Marco Lugo MD Report Number: [id number]: Total DLP = 1392.00 mGy-cm CLINICAL HISTORY: left flank pain CT abdomen and pelvis without contrast Comparison: DX - XR HIP RT MIN 2V - 09/17/24 11:03 EST US/SR - US ABDOMEN COMPLETE - 05/07/24 09:[address]/NH/SR - CT ABDOMEN PELVIS WO IV CON [...] in OV> 11/07/241924 DD/ 24 TD/TT: 11/07/241924 Developer Designer: [facility] External Provider IMG CT PROCEDURES Edited Result - Final * XR Chest 1 View (11/07/2024 6:43 PM EDT) Anatomical Region Laterality Modality Chest Radiographic Alejandrina ging 11/07/2024 6:43 PM EDT Narrative 11/07/2024 6:45 PM EDT ? [facility] ?[address] ?[place] [address] ?XRay Report ? Signed ? Patient: Maria Luisa Jean,Blaire ?MR#: M ?? [id number] ? : 1975 ?Acct:[id number] ? Age/Sex: 49 / F ?ADM Date: 11/07/24 ? Loc: HO.ED ? Attending Dr: ? Ordering Physician: Marco Lugo MD ?? Date of Service: 11/07/24 ?? Procedure(s): XR chest 1V ?? Accession Number(s): [id number] ? cc: Carmen Bertrand DO; Marco Lugo MD ? CLINICAL HISTORY: Chest pain ? 1 view chest x-ray ? Comparison: CR/NH/SR - XR CHEST 1V - 11/11/23 18:01 [...] ? DD/ 42 ? TD/TT: 11/07/241842 ? Developer Designer: ? Procedure Note Kailashbeatricewalternery, Image - 11/07/2024 [place] [address] XRay Report Signed Patient: Blaire Quiroz#: M [id number] : 1975Acct:[id number] Age/Sex: 49 / FADM Date: 11/07/24 Loc: HO.ED Attending Dr: Ordering Physician: Marco Lugo MD Date of Service: 11/07/24 Procedure(s): XR chest 1V Accession Number(s): [id number] cc: Carmen Bertrand DO; Marco Lugo MD CLINICAL HISTORY: Chest pain 1 view chest x-ray Comparison: CR/NH/SR - XR CHEST 1V - 3/26/24 18:01 EDT Findings: No consolidation or effusion. Heart size is normal. No acute fracture. IMPRESSION: 1. No acute findings. This document has been electronically signed by: Mahad Pearl MD on 11/07/2024 18:43:58 Dictated By: Mahad Pearl MD Signed By: <Electronically signed by Mahad Pearl MD in OV> 11/07/241843 DD/ 42 TD/TT: 11/07/241842 Developer Designer: [facility] External Provider IMG XR PROCEDURES Edited Result - Final * (ABNORMAL) CBC auto differential (11/07/2024 4:29 PM EDT) Only the most recent of2 resultswithin the time period is included. White Blood Count 11.1(H) 4.8 - 10.8 X10*3/uL [facility] Red Blood Count 4.18(L) 4.20 - 5.50 X10*6/uL [facility] Hemoglobin 12.9 12.0 - 16.0 g/dl [facility] Hematocrit 38.3 37.0 - 47.0 % [facility] Mean Corpuscular Volume 91.6 80.0 - 98.0 fL [facility] Mean Corpuscular Hemoglobin 30.9 27.0 - 33.0 pg [facility] Mean Corpuscular HGB Conc 33.7 31.0 - 35.0 g/dl [facility] Red Cell Distribution Width 14.2 11.0 - 16.0 % [facility] Platelet Count 326 160 - 400 X10*3/uL [facility] Mean Platelet Volume 9.2(L) 9.4 - 12.3 fL [facility] Neutrophils Percent Auto 50.5 45 - 73 % [facility] Imm Gran Pct Auto 0.5(H) 0.0 - 0.4 % [facility] Lymphocytes Percent Auto 36.9 20 - 40 % [facility] Monocytes Percent Auto 7.9 2 - 11 % [facility] Eosinophils Percent Auto 3.7 0 - 4 % [facility] Basophils Percent Auto 0.5 0 - 2 % [facility] NRBC Pct Auto 0.0 0.0 - 0.2 /100WBC [facility] Neutrophils Absolute Auto 5.6 2.0 - 8.3 x10*3/uL [facility] Imm Gran Abs Auto 0.05(H) 0.00 - 0.03 X10*3/uL [facility] Lymphocytes Absolute Auto 4.1 1.2 - 4.9 X10*3/uL [facility] Monocytes Absolute Auto 0.9 0.1 - 1.2 X10*3/uL [facility] Eosinophils Absolute Auto 0.4 0.0 - 0.4 X10*3/uL [facility] Basophils Absolute Auto 0.1 0.0 - 0.2 X10*3/uL [facility] NRBC Abs Auto 0.000 0.0 - 0.012 X10*3/uL [facility] 11/07/2024 4:29 PM EDT 11/07/2024 4:33 PM EDT us Generic External Data Provider LAB BLOOD ORDERAB LES Final Result Performing Organization Address City/[facility]/ZIP Co de Phone Number [facility] [address] [place] [phone] * Magnesium (11/07/2024 4:29 PM EDT) Only the most recent of2 resultswithin the time period is included. Magnesium 1.7 1.6 - 2.6 mg/dL [facility] 11/07/2024 4:29 PM EDT 11/07/2024 4:33 PM EDT us Generic External Data Provider LAB BLOOD ORDERAB LES Final Result Performing Organization Address City/[facility]/ZIP Co de Phone Number [facility] [address] [place] [phone] * Lipase (11/07/2024 4:29 PM EDT) Lipase 11 8 - 78 U/L [facility] 11/07/2024 4:29 PM EDT 11/07/2024 4:33 PM EDT us Generic External Data Provider LAB BLOOD ORDERAB LES Final Result [facility] [address] [place], [place] [phone] * (ABNORMAL) Comprehensive Metabolic Panel (11/07/2024 4:29 PM EDT) Sodium 141 135 - 145 mmol/L [facility] Potassium 3.9 3.3 - 5.1 mmol/L [facility] Chloride 110(H) 96 - 108 mmol/L [facility] Carbon Dioxide 25 22 - 29 mmol/L [facility] Anion Gap 10(L) 12 - 20 [facility] Urea Nitrogen (BUN) 12 9 - 16 mg/dL [facility] Creatinine, Serum 0.96 0.5 - 1.4 mg/dL [facility] Creatinine Clr Calc Pharmacy 115.0 [facility] Comment:Provided height and weight: 167.64 cm,165.3 kg.eGFR (calculated from the MDRD study equation) and eCrCl(calculated from the Cockcroft-Gault equation) are based ondifferent parameters and may not yield comparable results.If eCrCl result is absurd, please check patient'sheight/weight. Estimated Glomerular Filt Rate >60 [facility] Comment:Chronic Kidney Disea se: Estimated GFR < 60 mL/min/1.35e8Xbsfiy Kidney Disease: Estimated GFR < 15 mL/min/1.73m2 Glucose 97 60 - 115 mg/dL [facility] Calcium 9.2 8.4 - 10.2 mg/dL [facility] Bilirubin, Total 0.2 0.0 - 1.0 mg/dL [facility] Aspartate Amino Transferase 23 5 - 31 U/L [facility] Alanine Aminotransferase 13 0 - 31 U/L [facility] Total Protein 7.6 6.5 - 8.0 g/dL [facility] Albumin Level 3.4(L) 3.5 - 5.0 g/dL [facility] Alkaline Phosphatase 98 39 - 117 U/L [facility] 11/07/2024 4:29 PM EDT 11/07/2024 4:33 PM EDT us Generic External Data Provider LAB BLOOD ORDERAB LES Final Result [facility] [address] [place] [phone] * POCT ANALISA-14 Urine Drug Screen (10/21/2024 2:02 PM EST) Urine Urine specimen obtained by clean catch procedure / Unknown 10/21/2024 2:02 PM EST Jessica Perez RN - 10/21/2024 2:02 PM EST UTOX cup Lot#[id number] Exp. 04/06/26 Internal Pass Control UTOX Negative for all substances. us Carmen Bertrand DO POINT OF CARE TEST [...] Likely physiological. Will monitor at next exam. us Tova Saucedo OD OPHTH PHOTOGRAPHY Final Resul t * Fundus Photos - OU - Both Eyes (10/20/2024 2:30 PM EST) Narrative Tova Saucedo, OD - 11/05/2024 9:58 AM EDT Erroneous order Tova Saucedo OD OPHTH PHOTOGRAPHY Final Resul t * SARS-CoV-2 RNA, Influenza A/B, and RSV RNA, Ql NAAT (09/29/2024 3:25 PM EST) Influenza A PCR NEGATIVE Negative [facility] Influenza B PCR NEGATIVE Negative [facility] Resp Syncy Virus RNA Qual PCR NEGATIVE Negative [facility] SARS COV2 PCR NEGATIVE Negative [facility] Comment:All test results mus t be [...] use by authorized laboratories.Testing performed on the [employer] GeneXpert utilizingreal-time RT-PCR.All SARS CoV2 and positive influenza A/B results arereported to [facility]. 09/29/2024 3:25 PM EST 09/29/2024 3:28 PM EST us Generic External Data Provider LAB MICROBIOLOGY - GENERAL ORDERABLES Final Result [facility] [address] [place] [phone] * Prothrombin Time-INR (09/29/2024 3:25 PM EST) Prothrombin Time 11.4 10.9 - 12.4 SEC [facility] INTERNATIONAL NORM RATIO 1.0 0.9 - 1.1 [facility] Comment:INTERNATIONAL NORMAL IZED RATIO (INR) REFERENCE [...] ORDERAB LES Final Result Performing Organization Address [facility] Phone Number [facility] [address] [place] [phone] * B Type Natriuretic Peptide (BNP) (09/29/2024 3:25 PM EST) [facility] B Type Natriuretic Peptide 45 <100 pg/mL [facility] Comment:For those patients w ho are being treated with Natrecor(nesiritide, recombinant BNP), BNP testing should beperformed at least two hours post treatment in order toensure that only endogenous levels of BNP are detected. 09/29/2024 3:25 PM EST 09/29/2024 3:28 PM EST [employer] External Data Provider LAB BLOOD ORDERAB LES Final Result Performing Organization Address [facility] Number [facility] [address] [place] [phone] * Hepatic Function Panel (09/29/2024 3:25 PM EST) [facility] Bilirubin, Total 0.5 0.0 - 1.0 mg/dL [facility] Bilirubin, Direct 0.2 0.0 - 0.5 mg/dL [facility] Aspartate Amino Transferase 22 5 - 31 U/L [facility] Alanine Aminotransferase 21 0 - 31 U/L [facility] Total Protein 7.8 6.5 - 8.0 g/dL [facility] Albumin Level 3.6 3.5 - 5.0 g/dL [facility] Alkaline Phosphatase 94 39 - 117 U/L [facility] 09/29/2024 3:25 PM EST 09/29/2024 3:28 PM EST us Generic External Data Provider LAB BLOOD ORDERAB LES Final Result Performing Organization Address City/[facility]/ZIP Co de Phone Number [facility] [facility] [address] [place] [address] [phone] * Basic Metabolic Panel (09/29/2024 3:25 PM EST) Sodium 140 135 - 145 mmol/L [facility] Potassium 4.6 3.3 - 5.1 mmol/L [facility] Chloride 108 96 - 108 mmol/L [facility] Carbon Dioxide 25 22 - 29 mmol/L [facility] Anion Gap 12 12 - 20 [facility] Urea Nitrogen (BUN) 12 9 - 16 mg/dL [facility] Creatinine, Serum 0.82 0.5 - 1.4 mg/dL [facility] Creatinine Clr Calc Pharmacy 139.5 [facility] Comment:Provided height and weight: 175.26 cm,164.1 kg.eGFR (calculated from the MDRD study equation) and eCrCl(calculated from the Cockcroft-Gault equation) are based ondifferent parameters and may not yield comparable results.If eCrCl result is absurd, please check patient'sheight/weight. Estimated Glomerular Filt Rate >60 [facility] Comment:Chronic Kidney Disea se: Estimated GFR < 60 mL/min/1.25c5Hrgepo Kidney Disease: Estimated GFR < 15 mL/min/1.73m2 Glucose 97 60 - 115 mg/dL [facility] Calcium 9.6 8.4 - 10.2 mg/dL [facility] 09/29/2024 3:25 PM EST 09/29/2024 3:28 PM EST us Generic External Data Provider LAB BLOOD ORDERAB LES Final Result Performing Organization Address City/[facility]/ZIP Co de Phone Number [facility] [address] [facility] [place] [address] [phone] * XR Hip 2 or 3 Views Right (09/17/2024 5:59 PM EST) Anatomical Region Laterality Modality Lower Extremities, Hip Right Radiograp hic Imaging 09/17/2024 5:59 PM EST Narrative 09/17/2024 6:00 PM EST ? [facility] ? [address] ?[place] [address] ?XRay Report ? Signed ? Patient: Blaire Quiroz ?MR#: M ?? [id number] ? : 1975 ?Acct:[id number] ? Age/Sex: 49 / F ?ADM Date: 09/17/24 ? Loc: HO.HOSX ? Attending Dr: Heather Uriarte MD ? Ordering Physician: Heather Aviles ?? Date of Service: 09/17/24 ?? Procedure(s): XR hip RT min 2V ?? Accession Number(s): [id number] ? cc: Carmen Bertrand DO; Heather Aviles [...] DD/ 1759 ? TD/TT: 09/17/24 1759 ? Developer Designer: ? Procedure Note Geno, Image - 09/17/2024 [facility] [address] [place] [address] [address] [place] [address] XRay Report Signed Patient: Blaire Quiroz#: M [id number] : 1975Acct:[id number] Age/Sex: 49 / FADM Date: 09/17/24 Loc: GIAN Attending Dr: Heather Uriarte MD Ordering Physician: Heather Aviles Date of Service: 09/17/24 Procedure(s): XR hip RT min 2V Accession Number(s): [id number] cc: Carmen Bertrand DO; Heather Aviles CLINICAL [...] OV> 09/17/24 1800 DD/ 58 TD/TT: 09/17/241758 Developer Designer: [facility] External Provider IMG XR PROCEDURES Final Result * XR Sacroiliac Joints 1-2 Views (09/17/2024 5:59 PM EST) Anatomical Region Laterality Modality Sacroiliac joint, Pelvis Radiogr aphic Imaging 09/17/2024 5:59 PM EST Narrative 09/17/2024 6:00 PM EST ? [facility] ? [address] ?[place] [address] ?XRay Report ? Signed ? Patient: Maria Luisa LiurahulBlaire ?MR#: M ?? [id number] ? : 1975 ?Acct:[id number] ? Age/Sex: 49 / F ?ADM Date: 09/17/24 ? Loc: HO.HOSX ? Attending : Heather Uriarte MD ? Ordering Physician: Heather Aviles ?? Date of Service: 09/17/24 ?? Procedure(s): XR sacroiliac joint 1-2V ?? Accession Number(s): [id number] ? cc: Carmen Bertrand DO; Heather Aviles [...] ? DD/ 1759 ? TD/TT: 09/17/241758 ? Developer Designer: ? Procedure Note Donclintonter, Image - 09/17/2024 [facility] [address] [place] [address] Drive [address] [place] [address] XRay Report Signed Patient: Blaire QuirozMR#: M [id number] : 1975Acct:[id number] Age/Sex: 49 / FADM Date: 09/17/24 Loc: SHASHANKGeorgiPHILLIP Attending Dr: Heather Uriarte MD Ordering Physician: Heather Aviles Date of Service: 09/17/24 Procedure(s): XR sacroiliac joint 1-2V Accession Number(s): [id number] cc: Carmen Bertrand DO; Heather Aviles CLINICAL [...] OV> 09/17/24 1800 DD/ 58 TD/TT: 09/17/241758 Developer Designer: us [facility] External Provider IMG XR PROCEDURES Final Result * (ABNORMAL) Rheumatoid Factor (09/17/2024 11:45 AM EST) Rheumatoid Factor 28.2(H) <15.0 IU/mL [facility] 09/17/2024 11:4 5 AM EST 09/17/2024 11:45 AM EST us Generic External Data Provider LAB BLOOD ORDERAB LES Final Result [facility] [address] [place] [address] [phone] * (ABNORMAL) REBECCA Screen,IFA, with Reflex to Titer and Pattern (09/17/2024 11:45 AM EST) Anti Nuclear Antibody Screen POSITIVE (A) NEGATIVE [facility] Comment:REBECCA IFA is a first l ine screen for detecting thepresence of up to approximately 150 autoantibodies invarious autoimmune diseases. A positive REBECCA IFA resultis suggestive of autoimmune disease and reflexes totiter and pattern. Further laboratory testing may beconsidered if clinically indicated.For additional information, please refer tohttp://education.[employer]/faq/UUZ841(This link is being provided for informational/educational purposes only.) REBECCA Titer 1:40(A) titer [facility] Comment:A low level REBECCA tite r may be present in pre-clinicalautoimmune diseases and normal individuals. Reference Range <1:40 Negative 1:40-1:80 Low Antibody Level >1:80 Elevated Antibody Level REBECCA Pattern Nuclear, Speckled (A) [facility] Comment:Speckled pattern is associated with mixed connectivetissue disease (MCTD), systemic lupus erythematosus(SLE), Sjogren's syndrome, dermatomyositis, andsystemic sclerosis/polymyositis overlap.AC-2,4,5,29: SpeckledInternational Consensus on REBECCA Patterns(https://doi.org/10.1515/xvuu-4083-0751)THIS TEST WAS PERFORMED AT:[facility] [place] [phone] HINTON MD REBECCA TITER 2 (REF LAB) [facility] REBECCA Pattern 2 [facility] REBECCA TITER 3 [facility] REBECCA PATTERN 3 [facility] 09/17/2024 11:4 5 AM EST 09/17/2024 11:45 AM EST us Generic External Data Provider LAB BLOOD ORDERAB LES Final Result [facility] [address], [place] [phone] * (ABNORMAL) Cologuard?? colon cancer screening (08/31/2024 10:33 AM EST) Cologuard Result Positive( A) Negative 09/07/2024 10:16 AM EST [facility] (CLIA #:[id number]) Comment: POSITIVE TEST RESULT. A positive Cologuard [...] (Ashleigh Zhou al, N Engl J Med 2014;370(14):7831-7797.) Cologuard may produce a false negative or false positive result (no colorectal cancer or precancerous polyp present at colonoscopy follow up). A negative Cologuard test result does not guarantee the absence of CRC or advanced adenoma (pre-cancer). The current Cologuard screening interval is every 3 years. ([place] Cancer Society and U.S. Multi-Society Task Force). Cologuard performance data in a 10,000 patient pivotal study using colonoscopy as the reference method can be accessed at the following location: www.[employer].Bioaxial/results. Additional description of the Cologuard test process, warnings and precautions can be found at www.cologSwipeClockrd.com. Stool specimen (specimen) 08/31/2024 10:33 AM EST 09/01/2024 11:06 AM EST Carmen Bertrand DO LAB MOLECULAR DIAGNOSTICS OR DERABLES Final Result Performing Organization Address City/[facility]/ZIP Co de Phone Number [facility] (CLIA #:[id number]) [place] [address], [place] [phone] * Hemoglobin A1c (08/24/2024 11:57 AM EST) Hemoglobin A1c 6.0 <6.0 % [facility] Comment:Hemoglobin A1C Refer ence Range Adults: 4.8 - 6.0 % Non diabetic: < 6.0 % Goal: < 7.0 %Additional Action Suggested: > 8.0 %Note: Hemoglobin A1c results are invalid for patients with abnormal amounts of HbF. Blood transfusions may impact the HbA1c concentration in the patient sample. Estimated Average Glucose 126 mg/dL [facility] Comment:eAG = Estimated ave rage glucose which is %A1C expressed asaverage glucose, using the formula of the I7F-KepjncrFozdhfo Glucose study (ADAG), Diabetes Care, Vol.31,#8,Aug. 2007 Blood Venous blood specimen / Unknown 08/24/2024 11:57 AM EST 08/24/2024 1:03 PM EST Carmen Bertrand HOSTING LAB BLOOD ORDERABLES Final R esult Performing Organization Address City/[facility]/ZIP Co de Phone Number [facility] [address] [place] [phone] * (ABNORMAL) Lipid Panel, Standard (08/24/2024 11:57 AM EST) Triglycerides 82 <150 mg/dL [facility] Comment:Desirable Triglyceri de: less than 150 mg/dLBorderline High Triglyceride 150-199 mg/dLHigh Triglyceride: 200-499 mg/dLVery High Triglyceride: greater than or equal to 5OO mg/dL Cholesterol 136 <200 mg/dL [facility] Comment:Desirable Cholestero l: less than 200 mg/dLBorderline High Cholesterol: 200-239 mg/dLHigh Cholesterol: greater than 239 mg/dL LDL Cholesterol Calculated 81 <100 mg/dL [facility] Comment:Desirable LDL: less than 100 mg/dLNear Optimal/Above Optimal LDL: 110- 129 mg/dLBorderline High LDL: 130-159 mg/dLHigh LDL: 160-189 mg/dLVery High LDL: greater than or equal to 190 mg/dL HDL Cholesterol 39(L) >40 mg/dL [facility] Comment:Desirable HDL: great er than 40 mg/dL Note: This HDL assay may give artificially low results in patients with liver disease. Blood Venous blood specimen / Unknown 08/24/2024 11:57 AM EST 08/24/2024 1:03 PM EST us Carmen Bertrand DO LAB BLOOD ORDERABLES Final R esult [facility] [address] [place] [phone] * BI US Breast Limited Bilateral (06/02/2024 2:00 PM EDT) Anatomical Region Laterality Modality Breast Bilateral Ultrasound 06/02/2024 2:00 PM EDT Narrative 06/03/2024 8:44 AM EDT ? [facility] ? [address] ?[place] [address] ? Ultrasound Report ? Signed ? Patient: Maria Luisa Jean,Blaire ?MR#: M ?? [id number] ? : 1975 ?Acct:[id number] ? Age/Sex: 49 / F ?ADM Date: 10/16/24 ? Loc: HO.MAMMO ? Attending Dr: Carmen Bertrand DO ? Ordering Physician: Carmen Bertrand DO ?? Date of Service: 06/02/24 ?? Procedure(s): US breast BI limited mamm only ?? Accession Number(s): [id number] ? cc: Carmen Bertrand DO ? EXAMINATION: [...] Olmedo MD ??06/03/2024 08:41 AM EDT RP ?? Workstation: [id number] ? Dictated By: ?Shamir Olmedo MD ? Signed By: ?<Electronically signed by Shamir Olmedo MD in OV> ?06/03/24 0841 ? DD/ 1400 ? TD/TT: 06/02/24 1454 ? Developer Designer: ? Procedure Note Dawna Lora - 06/03/2024 [facility] [address] [place] [address] Ultrasound Report Signed Patient: Blaire Quiroz#: M [id number] : 1975Acct:[id number] Age/Sex: 49 / FADM Date: 06/02/24 Loc: HO.MAMMO Attending Dr: Carmen Bertrand DO Ordering Physician: Carmen Bertrand DO Date of Service: 06/02/24 Procedure(s): US breast BI limited mamm only Accession Number(s): [id number] cc: Carmen Bertrand DO EXAMINATION: US DIAGNOSTIC [...] 06/03/24 0841 DD/ 1400 TD/TT: 06/02/24 1454 Developer Designer: Result [facility] Carmen Bertrand DO IMG US PROCEDURES Final Resu lt * Hepatitis C Antibody with Reflex to HCV, RNA, Quantitative, Real-Time PCR (04/27/2024 2:02 PM EDT) Hepatitis C Antibody Nonreactive Nonreactive [facility] Comment:Antibodies to HCV no t detected; does not exclude early acuteHCV infection. Blood Venous blood specimen / Unknown 04/27/2024 2:02 PM EDT 04/27/2024 4:01 PM EDT Result [facility] Carmen Bertrand DO LAB BLOOD ORDERABLES Final R esult Performing Organization Address [facility]/State/ZIP Co de Phone Number [facility] [address] [place] [phone] * HIV Ab/Ag ([facility]) (02/21/2023 2:35 PM EDT) HIV AB/AG Nonreactive Nonreactive [facility] Comment:HIV-1 p24 Ag and/or HIV-1/HIV-2 Ab not detected.A test result that is nonreactive does not exclude thepossibility of exposure to or infection with HIV-1 and/orHIV-2. Nonreactive results in this assay for individualswith prior exposure to HIV-1 and/or HIV-2 may be due toantigen and antibody levels that are below the limit ofdetection of this assay.[employer] HIV Ag/Ab Combo assay result andsupplemental assay results should be interpreted inconjunction with the patient's clinical presentation,history and other laboratory results. If the results areinconsistent with clinical evidence, additional testing issuggested to confirm the result. 02/21/2023 2:35 PM EDT 02/21/2023 2:37 PM EDT Result [facility] External Provider LAB BLO OD ORDERABLES Final Result [facility] [address] [place] [address] [phone] from Last 3 Months or Most Recently Relevant to Health Maintenance Insurance [employer] < 65 Care Teams Putter In Relationship Specialty Start Date End Date Carmen Bertrand DO [address] [place] [address] PCP - General Family Medicine 08/18/18
--- OUTSIDE RECORDS SUMMARY | 2024-12-13 11:23 | XMS_ITS | Encounter Summary ---
Author Organization [employer] Address [address] [place] [address] 7t [place] [address] Care Team Providers Care Non Acoustic Operator Name Role Phone Carmen Bertrand DO Primary Care Provider [phone] Encounter Details Date Type Department Care Team (Late st Contact Info) Description 09/09/2022 Orders Only [facility] [address] [place] [address] Carmen Perez LPN Social History Tobacco Use [...] Description 01/24/2025 1:00 PM EDT Clinical Support [facility] [address] [place] [address] 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, RN documented as of this encounter Visit Diagnoses Not on filedocumented in this encounter Care Teams Non Acoustic Operator Relationship Specialty Start Date End Date Carmen Bertrand DO [address] [place] [address] PCP - General Family Medicine 08/18/18 documented as of this encounter
--- OUTSIDE RECORDS SUMMARY | 2024-12-13 11:23 | XMS_ITS | Encounter Summary ---
Author Organization [employer] [facility] Address [address] [place] [address] 7 [place] [address] Care Team Providers Care Pilot Name Role Phone Carmen Bertrand DO Primary Care Provider [phone] Reason for Visit * Reason Comments Med Refill Encounter Details Date Type Department Care Team (Late st Contact Info) Description 07/29/2022 Refill [facility] [address] [place] [phone] Carmen Bertrand DO [address] [place] [address] Social History Tobacco Use Types Packs/Day Years [...] Description 01/24/2025 1:00 PM EDT Clinical Support [facility] [address] [place] [phone] 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 RN documented as of this encounter Visit Diagnoses Not on filedocumented in this encounter Care Teams Pilot Relationship Specialty Start Date End Date Carmen Bertrand DO [address] [place] [phone] PCP - General Family Medicine 08/18/18 documented as of this encounter
--- OUTSIDE RECORDS SUMMARY | 2024-12-13 11:23 | XMS_ITS | Encounter Summary ---
Author Organization [employer] Address [address] [facility] 7t [place] [address] Care Team Providers Care Associate Software Engineer Name Role Phone Carmen Bertrand DO Primary Care Provider [phone] Reason for Visit * Reason Onset Date Comments Hospital Follow-up 11/12/2024 Encounter Details Date Type Department Care Team ([facility] Contact Info) Description 11/12/2024 Telephone [facility] [address] [place] [address] Carmen Bertrand DO [address] [place] [address] Hospital Follow-up Social History Tobacco Use Types [...] from pt requesting a HDF appt. [facility]: [facility] Date of admission: 11/07/2024 Discharge date: 11/12/2024 Diagnosed: heart attack *Send message to [place] Clinical Care Coordinators documented in this encounter Plan of Treatment Upcoming Encounters Date Type Department Care Team (Late st Contact Info) Description 01/24/2025 1:00 PM EDT Clinical Support [facility] [address] [place] [address] 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, RULA documented as of this encounter Visit Diagnoses Not on filedocumented in this encounter Additional Health Concerns Assessment Noted Time PHQ-9 Depression Total Score: 22 024 11:00 AM EDT documented as of this encounter Care Teams Associate Software Engineer Relationship Specialty Start Date End Date Carmen Bertrand DO [address] [place] [address] PCP - General Family Medicine 08/18/18 documented as of this encounter
--- OUTSIDE RECORDS SUMMARY | 2024-12-13 11:23 | XMS_ITS | Encounter Summary ---
Author Organization [facility] Address [address] [place] [address] 7[address] [place] [address] Care Team Providers Care Wool Merchant Name Role Phone Carmen Bertrand DO Primary Care Provider [phone] Encounter Details Date Type Department Care Team (Late st Contact Info) Description 09/09/2022 Orders Only [facility] [address] [place] [address] Azul Albrecht LPN Social History Tobacco Use [...] Clinical Support [facility] [address] [place] [address] 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, RN documented as of this encounter Visit Diagnoses Not on filedocumented in this encounter Care Teams Wool Merchant Relationship Specialty Start Date End Date Carmen Bertrand DO [address] [place] [address] PCP - General Family Medicine 08/18/18 documented as of this encounter
--- OUTSIDE RECORDS SUMMARY | 2024-12-13 11:23 | XMS_ITS | Encounter Summary ---
Author Organization [employer] Address [address] [facility] 7t [place] [address] Care Team Providers Care Wheelage Clerk Name Role Phone Carmen Bertrand DO Primary Care Provider [phone] Reason for Visit * Reason Comments Med Refill Encounter Details Date Type Department Care Team ([facility] st Contact Info) Description 11/20/2022 Refill [facility] [address] [place] [address] Carmen Bertrand DO [address] [place] [address] Morbid obesity with body mass index (BMI) [...] Description 01/24/2025 1:00 PM EDT Clinical Support [facility] [address] [place] [address] 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, RN documented as of this encounter Visit Diagnoses Diagnosis Morbid obesity with body mass index (BMI) of 50.0 to 59.9 in adult (CMS/HCC) documented in this encounter Additional Health Concerns Assessment Noted Time PHQ-9 Depression Total Score: 16 023 12:22 PM EST documented as of this encounter Care Teams Wheelage Clerk Relationship Specialty Start Date End Date Carmen Bertrand DO [address] [place] [address] PCP - General Family Medicine 08/18/18 documented as of this encounter
--- OUTSIDE RECORDS SUMMARY | 2024-12-13 11:23 | XMS_ITS | Encounter Summary ---
Author Organization [employer] Address [address] [facility] 7t [place] [address] Care Team Providers Care Blister Packaging Machine Operator Name Role Phone Carmen Bertrand DO Primary Care Provider [phone] Reason for Visit * Reason Onset Date Comments Med Refill 12/07/2024 Encounter Details Date Type Department Care Team ([facility] st Contact Info) Description 12/07/2024 Refill [facility] & PEDS [address] [place], [place] [phone] Carmen Bertrand DO [address] [place] [address] Chronic low back pain, unspecified back pain [...] encounter Miscellaneous Notes * Addendum Note - Lo Hein RN - 12/09/2024 9:12 AM EDTAddended by: LO HEIN on: 12/09/2024 09:12 AM Modules accepted: Orders * Telephone Encounter - Lo Hein RN - 12/09/2024 9:12 AM EDT [facility] reviewed again today, rx pended * Telephone Encounter - Lo Hein RN - 12/07/2024 2:31 PM EDT [facility] reviewed, pt. Last picked up 28 day supply 11/12/24, due 12/10/24. Will pend to PCP 12/09/24 * Telephone Encounter - Azul Albrecht LPN - 12/07/2024 1:10 PM EDT Received request on traMADol (Ultram) 50 MG tablet documented in this encounter Plan of Treatment Upcoming Encounters Date Type Department Care Team (Late st Contact Info) Description 01/24/2025 1:00 PM EDT Clinical Support [facility] [address] [place] [address] 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, RN documented as of this encounter Visit Diagnoses Diagnosis Chronic low back pain, unspecified back pain laterality, unspecified whether sciatica present documented in this encounter Additional Health Concerns Assessment Noted Time PHQ-9 Depression Total Score: 22 024 11:00 AM EDT documented as of this encounter Care Teams Blister Packaging Machine Operator Relationship Specialty Start Date End Date Carmen Bertrand DO [address] [place] [phone] PCP - General Family Medicine 08/18/18 documented as of this encounter
--- OUTSIDE RECORDS SUMMARY | 2024-12-13 11:23 | XMS_ITS | Encounter Summary ---
Author Organization [employer] Address [address] [facility] 7t [place] [address] Care Team Providers Care Watch Leader Name Role Phone Carmen Bertrand DO Primary Care Provider [phone] Reason for Visit * Reason Comments Med Refill Encounter Details Date Type Department Care Team ([facility] st Contact Info) Description 02/24/2024 Refill [facility] [address] [place] [address] Carmen Bertrand DO [address] [place] [address] Social History Tobacco Use Types Packs/Day Years [...] EDT Clinical Support [facility] [address] [place] [phone] 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 RN documented as of this encounter Visit Diagnoses Not on filedocumented in this encounter Additional Health Concerns Assessment Noted Time PHQ-9 Depression Total Score: 21 023 11:26 AM EST documented as of this encounter Care Teams Watch Leader Relationship Specialty Start Date End Date Carmen Bertrand DO [address] [place] [address] PCP - General Family Medicine 08/18/18 documented as of this encounter
--- OUTSIDE RECORDS SUMMARY | 2024-12-13 11:23 | XMS_ITS | Encounter Summary ---
Author Organization [employer] Address [address] [facility] 7t [place] [address] Care Team Providers Care Latent Print Examiner Name Role Phone RajeevCarmen jones Primary Care Provider [phone] Reason for Visit * Reason Comments Med Refill Encounter Details Date Type Department Care Team ([facility] st Contact Info) Description 03/08/2024 Refill [facility] [address] [place] [address] Rox Sutton MD [address] [place] [address] Pain Social History Tobacco Use Types Packs/Day [...] 01/24/2025 1:00 PM EDT Clinical Support [facility] [address] [place] [address] 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 RN documented as of this encounter Visit Diagnoses Diagnosis Pain Generalized pain documented in this encounter Additional Health Concerns Assessment Noted Time PHQ-9 Depression Total Score: 21 023 11:26 AM EST documented as of this encounter Care Teams Latent Print Examiner Relationship Specialty Start Date End Date Carmen Bertrand DO [address] [place] [address] PCP - General Family Medicine 08/18/18 documented as of this encounter
--- OUTSIDE RECORDS SUMMARY | 2024-12-13 11:23 | XMS_ITS | Encounter Summary ---
Author Organization [employer] Address [address] [facility] [address] [place] [address] Care Team Providers Care Indigo Vat Tender Cloth Name Role Phone Carmen Bertrand DO Primary Care Provider + [phone] Reason for Visit * Reason Comments Med Refill Encounter Details Date Type Department Care Team ([facility] st Contact Info) Description 07/22/2023 Refill [facility] MED & PEDS [address] [place], [place] [phone] Carmen Bertrand DO [address] [facility] [place] [address] Hyperlipidemia, unspecified hyperlipidemia type Social History Tobacco [...] 1:00 PM EDT Clinical Support [facility] MEDICINE [address] [place] [id number] 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 RN documented as of this encounter Visit Diagnoses Diagnosis Hyperlipidemia, unspecified hyperlipidemia type documented in this encounter Additional Health Concerns Assessment Noted Time PHQ-9 Depression Total Score: 21 023 11:26 AM EST documented as of this encounter Care Teams Indigo Vat Tender Cloth Relationship Specialty Start Date End Date Carmen Bertrand DO [address] [place] [address] PCP - General Family Medicine 08/18/18 documented as of this encounter
--- OUTSIDE RECORDS SUMMARY | 2024-12-13 11:23 | XMS_ITS | Encounter Summary ---
Author Organization [employer] Address [address] [place] [address] [address] [place] [address] Care Team Providers Care Research And Evaluation Analyst Name Role Phone EdilsonCarmen dixon Primary Care Provider + [phone] Reason for Visit * Reason Comments Med Refill Encounter Details Date Type Department Care Team ([facility] Contact Info) Description 02/03/2023 Refill [facility] MEDICINE [address] [place] [address] Leticia Ramirez MD [address] [place] [address] Nonintractable headache, unspecified chronicity pattern, unspecified headache [...] Date Type Department Care Team ([facility] Contact Info) Description 01/24/2025 1:00 PM EDT Clinical Support [facility] MEDICINE [address] [place] [address] 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 RN documented as of this encounter Visit Diagnoses Diagnosis Nonintractable headache, unspecified chronicity pattern, unspecified headache type documented in this encounter Additional Health Concerns Assessment Noted Time PHQ-9 Depression Total Score: 16 023 12:22 PM EST documented as of this encounter Care Teams Research And Evaluation Analyst Relationship Specialty Start Date End Date Carmen Bertrand DO [address] [place] [address] PCP - General Family Medicine 08/18/18 documented as of this encounter
--- OUTSIDE RECORDS SUMMARY | 2024-12-13 11:23 | XMS_ITS | Encounter Summary ---
Author Organization [employer] Address [address] [facility] [address] [place] [address] Care Team Providers Care Judo Instructor Name Role Phone Carmen Bertrand DO Primary Care Provider + [phone] Reason for Visit * Reason Comments Med Refill Encounter Details Date Type Department Care Team ([facility] st Contact Info) Description 03/16/2024 Refill [facility] MED & PEDS [address] [place], [place] [phone] Carmen Bertrand DO 230 [facility] [place] [address] Chronic low back pain, unspecified back pain [...] Description 01/24/2025 1:00 PM EDT Clinical Support [facility] MEDICINE [address] [place] [address] 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 RN documented as of this encounter Visit Diagnoses Diagnosis Chronic low back pain, unspecified back pain laterality, unspecified whether sciatica present documented in this encounter Additional Health Concerns Assessment Noted Time PHQ-9 Depression Total Score: 21 023 11:26 AM EST documented as of this encounter Care Teams Judo Instructor Relationship Specialty Start Date End Date Carmen Bertrand DO [address] [place] [address] PCP - General Family Medicine 08/18/18 documented as of this encounter
--- OUTSIDE RECORDS SUMMARY | 2024-12-13 11:24 | XMS_ITS | Encounter Summary ---
Author Organization [employer] Address [address] [facility] 7[address] [place] [address] Care Team Providers Care Travel Agent Name Role Phone RajeevCarmen jones Primary Care Provider + [phone] Reason for Visit * Reason Comments Med Refill Encounter Details Date Type Department Care Team ([facility] st Contact Info) Description 01/13/2024 Refill [facility] MEDICINE [address] [place] [address] Rox Sutton MD [address] [place] [address] Pain Social History Tobacco Use Types Packs/Day [...] PM EDT Clinical Support [facility] MEDICINE [address] [place] [address] 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 RN documented as of this encounter Visit Diagnoses Diagnosis Pain Generalized pain documented in this encounter Additional Health Concerns Assessment Noted Time PHQ-9 Depression Total Score: 21 023 11:26 AM EST documented as of this encounter Care Teams Travel Agent Relationship Specialty Start Date End Date Carmen Bertrand DO [address] [place] [address] PCP - General Family Medicine 08/18/18 documented as of this encounter
== END 2024-12-13 10:43 | disposition home or self-care (01) ==
PROVIDERS: PCP Family Medicine; Visit Provider Nurse Practitioner Family
DX: I25.10 Atherosclerotic heart disease of native coronary artery without angina pectoris (principal); Z98.890 Other specified postprocedural states; I21.4 Non-ST elevation (NSTEMI) myocardial infarction; I10 Essential (primary) hypertension; E78.5 Hyperlipidemia, unspecified; E66.01 Morbid (severe) obesity due to excess calories; Z01.810 Encounter for preprocedural cardiovascular examination
CPT/HCPCS: 93010; 99214; G2211

== ENCOUNTER 2024-12-13 09:55 | Outpatient (REF) | payer OTHER, SELFPAY ==
[2022-10-22 13:00] VITALS: BP 128/72; BP 148/88; BMI 63.7
[2023-01-30 14:13] VITALS: BP 140/60
--- OUTSIDE RECORDS SUMMARY | 2024-12-13 17:33 | XMS_ITS | Encounter Summary ---
Author Organization [employer] Address [address] [facility] 7t [place] [address] Care Team Providers Care Retort Feeder Ground Bone Name Role Phone RajeevCarmen jones Primary Care Provider + [phone] Reason for Visit * Reason Comments Med Refill Encounter Details Date Type Department Care Team ([facility] st Contact Info) Description 01/13/2024 Refill [facility] MEDICINE [address] [place] [address] Rox Sutton MD [address] [place] [address] Pain Social History Tobacco Use Types Packs/Day [...] Description 01/24/2025 1:00 PM EDT Clinical Support [facility] MEDICINE [address] [place] [address] 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 RN documented as of this encounter Visit Diagnoses Diagnosis Pain Generalized pain documented in this encounter Additional Health Concerns Assessment Noted Time PHQ-9 Depression Total Score: 21 023 11:26 AM EST documented as of this encounter Care Teams Retort Feeder Ground Bone Relationship Specialty Start Date End Date Carmen Bertrand DO [address] [place] [address] PCP - General Family Medicine 08/18/18 documented as of this encounter
--- OUTSIDE RECORDS SUMMARY | 2024-12-13 17:33 | XMS_ITS | Encounter Summary ---
Author Organization [employer] Address [address] [place] [address] 7[address] [place] [address] Care Team Providers Care Sales Development Representative Name Role Phone Carmen Bertrand DO Primary Care Provider [phone] Encounter Details Date Type Department Care Team (Late st Contact Info) Description 08/13/2022 Orders Only [facility] MED & PEDS [address] [place] [address] Carmen Perez LPN Social History Tobacco Use [...] Description 01/24/2025 1:00 PM EDT Clinical Support [facility] MEDICINE [address] [place] [address] 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, RN documented as of this encounter Visit Diagnoses Not on filedocumented in this encounter Care Teams Sales Development Representative Relationship Specialty Start Date End Date Carmen Bertrand DO [address] [place] [address] PCP - General Family Medicine 08/18/18 documented as of this encounter
--- OUTSIDE RECORDS SUMMARY | 2024-12-13 17:33 | XMS_ITS | Encounter Summary ---
Author Organization [employer] Address [address] [facility] 7[address] [place] [address] Care Team Providers Care Collection Clerk Name Role Phone Carmen Bertrand DO Primary Care Provider + [phone] Reason for Visit * Reason Comments Med Refill Encounter Details Date Type Department Care Team ([facility] Contact Info) Description 10/18/2022 Refill [facility] [address] [place] [address] Carmen Bertrand DO [address] [place] [address] Social History Tobacco Use Types Packs/Day Years [...] Upcoming Encounters Date Type Department Care Team ([facility] Contact Info) Description 01/24/2025 1:00 PM EDT Clinical Support [facility] [address] [place] [address] 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 RN documented as of this encounter Visit Diagnoses Not on filedocumented in this encounter Additional Health Concerns Assessment Noted Time PHQ-9 Depression Total Score: 16 023 12:22 PM EST documented as of this encounter Care Teams Collection Clerk Relationship Specialty Start Date End Date Carmen Bertrand DO [address] [place] [address] PCP - General Family Medicine 08/18/18 documented as of this encounter
--- OUTSIDE RECORDS SUMMARY | 2024-12-13 17:33 | XMS_ITS | Encounter Summary ---
Author Organization [employer] [facility] Address [address] [place] [address] [address] [place] [address] Care Team Providers Care Channel Worker Name Role Phone Carmen Bertrnad DO Primary Care Provider [phone] Reason for Visit * Reason Comments Med Refill Encounter Details Date Type Department Care Team (Late st Contact Info) Description 07/29/2022 Refill [facility] [address] [place] [id number] Carmen Bertrand DO [address] [place] [address] Social History Tobacco Use Types Packs/Day Years [...] Description 01/24/2025 1:00 PM EDT Clinical Support [facility] [address] [place] [address] 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 RN documented as of this encounter Visit Diagnoses Not on filedocumented in this encounter Care Teams Channel Worker Relationship Specialty Start Date End Date Carmen Bertrand DO [address] [place] [id number] PCP - General Family Medicine 08/18/18 documented as of this encounter
--- OUTSIDE RECORDS SUMMARY | 2024-12-13 17:33 | XMS_ITS | Encounter Summary ---
Author Organization [employer] Address [address] [facility] [address] [place] [address] Care Team Providers Care Analyst Competitive Intelligence Name Role Phone Carmen Bertrand DO Primary Care Provider [phone] Reason for Visit * Reason Onset Date Comments Hospital Follow-up 11/12/2024 Encounter Details Date Type Department Care Team ([facility] Contact Info) Description 11/12/2024 Telephone [facility] [address] [place] [address] Carmen Bertrand DO [address] [place] [address] Hospital Follow-up Social History Tobacco Use Types [...] from pt requesting a HDF appt. Hospital: [facility] Date of admission: 11/07/2024 Discharge date: 11/12/2024 Diagnosed: heart attack *Send message to [facility] Clinical Care Coordinators documented in this encounter Plan of Treatment Upcoming Encounters Date Type Department Care Team (Late st Contact Info) Description 01/24/2025 1:00 PM EDT Clinical Support [facility] [address] [place] [address] 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, RULA documented as of this encounter Visit Diagnoses Not on filedocumented in this encounter Additional Health Concerns Assessment Noted Time PHQ-9 Depression Total Score: 22 024 11:00 AM EDT documented as of this encounter Care Teams Analyst Competitive Intelligence Relationship Specialty Start Date End Date Carmen Bertrand DO [address] [place] [address] PCP - General Family Medicine 08/18/18 documented as of this encounter
--- OUTSIDE RECORDS SUMMARY | 2024-12-13 17:33 | XMS_ITS | Clinical Summary ---
Author Organization [employer] Address [address] [place] [address] Care Team Providers Care Resort Manager Name Role Phone EdilsonCarmen dixon Primary Care Provider [phone] Allergies Active Allergy Reactions Criticality Noted Date [...] 2025 Active ergocalciferol (Vitamin D2) 1.25 MG (13727 UT) capsule Take 1 capsule (1.25 mg) [...] Type Department Care Team Description 12/07/2024 Refill [facility] PEDS [address] [place] [address] Carmen Bertrand DO Chronic low back pain, unspecified back pain laterality, unspecified whether sciatica present 12/05/2024 Refill [facility] MEDICINE [address] [place] [address] Carmen Bertrand DO 12/05/2024 Refill [facility] [address] [place] [address] Irina Talley MD Melasma 12/03/2024 Refill [facility] [address] [place] [address] Alexandra Lisa MD Acanthosis nigricans 12/01/2024 Telephone [facility] [address] [place] [address] Lisa Rios, RULA Care Coordination 11/30/2024 9:15 AM EDT Office Visit [facility] [address] [place] [address] Carmen Bertrand DO Coronary artery disease involving morongo coronary artery of morongo heart, unspecified whether angina present (Primary Dx) 11/30/2024 Travel 11/19/2024 Refill [facility] MED & PEDS [address] [place] [address] Carmen Bertrand DO 11/12/2024 Patient Outreach [facility] MED & PEDS [address] [place] [address] Carmen Bertrand DO Transition Of Care (Tcm) (HDF scheduled. ) 11/12/2024 Telephone [facility] MEDICINE [address] [place] [address] Carmen Bertrand DO Hospital Follow-up 11/07/2024 Orders Only GENERIC EXTERNAL DATA DEPARTMENT Provider, Generic External Data 11/05/2024 Refill [facility] [address] [place] [address] Carmen Bertrand DO On pre-exposure prophylaxis for HIV 11/04/2024 Refill [facility] MED & PEDS [address], [place] [phone] Carmen Bertrand DO Chronic low back pain, unspecified back pain laterality, unspecified whether sciatica present 11/01/2024 Telephone [facility] [address] [place] [address] Carmen Bertrand DO telephone call 10/21/2024 1:30 PM EST Clinical Support [facility] [address] [place] [address] 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, telecom assistant bilateral low back pain without sciatica (Primary Dx) 10/21/2024 Travel 10/20/2024 2:30 PM EST Office Visit [facility] OPTOMETRY [address] [place] [address] Lewis, Tova, OD Presbyopia (Primary Dx); Cup to disc asymmetry, left 10/20/2024 Travel 10/11/2024 Refill [facility] [address] [place] [address] Carmen Bertrand DO Hypertension, unspecified type 10/06/[address] [address] Carmen Bertrand DO Prior Authorization 10/06/2024 Refill [facility] MED & PEDS [address] [place] [address] Ирина Mckeon MD Nonintractable headache, unspecified chronicity pattern, unspecified headache type 10/05/2024 Refill [facility] MED & PEDS [address] [place] [address] Carmen Bertrand DO Chronic low back pain, unspecified back pain laterality, unspecified whether sciatica present 10/05/[address] [address] Carmen Bertrand DO Nurse Triage 10/05/[address] [address] Carmen Bertrand DO Mild persistent asthma without complication; Melasma 10/01/2024 Refill [facility] [address] [place] [address] Carmen Bertrand DO 09/30/2024 Orders Only GENERIC EXTERNAL DATA DEPARTMENT Provider, Generic External Data 09/29/2024 Orders Only GENERIC EXTERNAL DATA DEPARTMENT Provider, Generic External Data 09/27/2024 11:45 AM EST Office Visit [address] [address] Carmen Bertrand DO Positive colorectal cancer screening using Cologuard test (Primary Dx) 09/27/2024 Travel 09/21/[address] [address] Trista Alford, RN Results 09/17/2024 Orders Only GENERIC EXTERNAL DATA DEPARTMENT Provider, Generic External Data 09/17/2024 Refill [facility] MED & PEDS [address] [place] [address] Carmen Bertrand DO 09/15/[address] [address] Carmen Bertrand DO Appointment Request from Last [...] Description 01/24/2025 1:00 PM EDT Clinical Support [address] [address] 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, RN Health Maintenance Due Date [...] of left foot Healthcare maintenance HIV ANTIBODY/ANTIGEN (TX DP) Routine 02/21/2023 2:35 PM EDT from Last 3 Months or Most Recently Relevant to Health Maintenance Results * NM heart perfusion SPECT stress and rest (11/08/2024 9:19 AM EDT) Anatomical Region Laterality Modality Body Nuclear Medicine 11/08/2024 9:19 AM EDT Narrative 11/09/2024 12:33 PM EDT ? [place] [facility] ?[address] ?[place] [address] ?Nuclear Medicine Report ? Signed ? Patient: Maria Luisa Jean,Blaire ?MR#: M ?? [id number] ? : 1975 ?Acct:[id number] ? Age/Sex: 49 / F ?ADM Date: 11/07/24 ? Loc: HO.IMC ?475-1 ? Attending Dr: Gregg Chavez MD ? Ordering Physician: Mars Hutchinson MD ?? Date of Service: 11/08/24 ?? Procedure(s): NM andrew perf SPECT rest ?? str ?? Accession Number(s): [id number] ? cc: Carmen Bertrand DO; Mars Hutchinson [...] DD/ 0919 ? TD/TT: 11/09/24 0955 ? Barrel Cooper: ? Procedure Note Donclintonter, Image - 11/09/2024 [place] [address] Nuclear Medicine Report Signed Patient: Christianne Quiroz#: M [id number] : 1975Acct:[id number] Age/Sex: 49 / FADM Date: 11/07/24 Loc: [facility] 475-[address]: Gregg Chavez MD Ordering Physician: Mars Hutchinson MD Date of Service: 11/08/24 Procedure(s): NM andrew perf SPECT rest str Accession Number(s): [id number] cc: Carmen Bertrand DO; Mars Hutchinson MD [...] 11/09/24 1231 DD/ 0919 TD/TT: 11/09/24 0955 Barrel Cooper: [facility] External Provider IMG NM PROCEDURES Edited Result - Final * (ABNORMAL) High Sensitivity Troponin I (11/07/2024 7:34 PM EDT) Only the most recent of4 resultswithin the time period is included. TROPONIN I HIGH SENSITIVITY 85.7(HH) <3.5 - 17.0 ng/L [facility] Comment:Critical value for t est(s): HS-TNI Results called to rickie back by:ROSANNE Person calling:ALKAAB Date: 11/07/2024Time:20:02.[employer] high sensitivity Troponin-I results should beused in conjunction with other diagnostic information suchas ECG, clinical observations and information, and patientsymptoms to aid in the diagnosis of PR. 11/07/2024 7:34 PM EDT 11/07/2024 7:37 PM EDT Generic External Data Provider LAB BLOOD ORDERAB LES Final Result Performing Organization Address [facility] de Phone Number [facility] [address] [place] [phone] * (ABNORMAL) Partial Thromboplastin Time, Activated (APTT) (11/07/2024 7:34 PM EDT) Partial Thromboplastin Time 36.9(H) 26.0 - 36.8 SEC [facility] Comment:For information rega rding the monitoring of direct thrombininhibitors, please refer to Pharmacy. 11/07/2024 7:34 PM EDT 11/07/2024 7:37 PM EDT Generic External Data Provider LAB BLOOD ORDERAB LES Final Result Performing Organization Address [facility] de Phone Number [facility] [address] [place] [phone] * CT Abdomen Pelvis w/o Contrast (11/07/2024 7:25 PM EDT) Anatomical Region Laterality Modality Body, Pelvis, Abdomen Computed T omography 11/07/2024 7:25 PM EDT Narrative 11/07/2024 7:26 PM EDT ? [facility] ?[address] ?[place] [address] ? CT Scan Report ? Signed ? Patient: Fermin Quirozssica ?MR#: M ?? [id number] ? : 1975 ?Acct:[id number] ? Age/Sex: 49 / F ?ADM Date: 03/23/25 ? Loc: HO.ED ? Attending Dr: ? Ordering Physician: Marco Lugo MD ?? Date of Service: 11/07/24 ?? Procedure(s): CT abdomen pelvis wo IV con ?? Accession Number(s): [id number] ? cc: Carmen Bertrand DO; Marco Lugo MD ? Report Number: ?? [id number]: Total DLP = 1392.00 mGy-cm ? CLINICAL HISTORY: left flank pain ? CT abdomen and pelvis without contrast ? Comparison: DX - XR HIP RT MIN 2V - 09/17/24 11:03 EST ?? US/SR - US ABDOMEN COMPLETE - 05/07/24 09:08 EDT ?? CT/MS/SR - CT ABDOMEN PELVIS WO IV CON [...] ? DD/ 24 ? TD/TT: 11/07/241924 ? Barrel Cooper: ? Procedure Note Dawna Lora - 11/07/[address] [address] [address] Scan Report Signed Patient: Blaire Quiroz#: M [id number] : 1975Acct:[id number] Age/Sex: 49 / FADM Date: 11/07/24 Loc: HO.ED Attending Dr: Ordering Physician: Marco Lugo MD Date of Service: 11/07/24 Procedure(s): CT abdomen pelvis wo IV con Accession Number(s): [id number] cc: Carmen Bertrand DO; Marco Lugo MD Report Number: [id number]: Total DLP = 1392.00 mGy-cm CLINICAL HISTORY: left flank pain CT abdomen and pelvis without contrast Comparison: DX - XR HIP RT MIN 2V - 09/17/24 11:03 EST US/SR - US ABDOMEN COMPLETE - 05/07/24 09:[address]/MS/SR - CT ABDOMEN PELVIS WO IV CON [...] in OV> 11/07/241924 DD/ 24 TD/TT: 11/07/241924 Barrel Cooper: [facility] External Provider IMG CT PROCEDURES Edited Result - Final * XR Chest 1 View (11/07/2024 6:43 PM EDT) Anatomical Region Laterality Modality Chest Radiographic Alejandrina ging 11/07/2024 6:43 PM EDT Narrative 11/07/2024 6:45 PM EDT ? [facility] ?[address] ?[place] [address] ?XRay Report ? Signed ? Patient: Maria Luisa Jean,Blaire ?MR#: M ?? [id number] ? : 1975 ?Acct:[id number] ? Age/Sex: 49 / F ?ADM Date: 11/07/24 ? Loc: HO.ED ? Attending Dr: ? Ordering Physician: Marco Lugo MD ?? Date of Service: 11/07/24 ?? Procedure(s): XR chest 1V ?? Accession Number(s): [id number] ? cc: Carmen Bertrand DO; Marco Lugo MD ? CLINICAL HISTORY: Chest pain ? 1 view chest x-ray ? Comparison: CR/MS/SR - XR CHEST 1V - 11/11/23 18:01 [...] ? DD/ 42 ? TD/TT: 11/07/241842 ? Barrel Cooper: ? Procedure Note Kailashbeatricewalternery, Image - 11/07/2024 [place] [address] XRay Report Signed Patient: Blaire Quiroz#: M [id number] : 1975Acct:[id number] Age/Sex: 49 / FADM Date: 11/07/24 Loc: HO.ED Attending Dr: Ordering Physician: Marco Lugo MD Date of Service: 11/07/24 Procedure(s): XR chest 1V Accession Number(s): [id number] cc: Carmen Bertrand DO; Marco Lugo MD CLINICAL HISTORY: Chest pain 1 view chest x-ray Comparison: CR/MS/SR - XR CHEST 1V - 3/26/24 18:01 EDT Findings: No consolidation or effusion. Heart size is normal. No acute fracture. IMPRESSION: 1. No acute findings. This document has been electronically signed by: Mahad Pearl MD on 11/07/2024 18:43:58 Dictated By: Mahad Pearl MD Signed By: <Electronically signed by aMhad Pearl MD in OV> 11/07/241843 DD/ 42 TD/TT: 11/07/241842 Barrel Cooper: [facility] External Provider IMG XR PROCEDURES Edited Result - Final * (ABNORMAL) CBC auto differential (11/07/2024 4:29 PM EDT) Only the most recent of2 resultswithin the time period is included. White Blood Count 11.1(H) 4.8 - 10.8 X10*3/uL [facility] Red Blood Count 4.18(L) 4.20 - 5.50 X10*6/uL [facility] Hemoglobin 12.9 12.0 - 16.0 g/dl [facility] Hematocrit 38.3 37.0 - 47.0 % [facility] Mean Corpuscular Volume 91.6 80.0 - 98.0 fL [facility] Mean Corpuscular Hemoglobin 30.9 27.0 - 33.0 pg [facility] Mean Corpuscular HGB Conc 33.7 31.0 - 35.0 g/dl [facility] Red Cell Distribution Width 14.2 11.0 - 16.0 % [facility] Platelet Count 326 160 - 400 X10*3/uL [facility] Mean Platelet Volume 9.2(L) 9.4 - 12.3 fL [facility] Neutrophils Percent Auto 50.5 45 - 73 % [facility] Imm Gran Pct Auto 0.5(H) 0.0 - 0.4 % [facility] Lymphocytes Percent Auto 36.9 20 - 40 % [facility] Monocytes Percent Auto 7.9 2 - 11 % [facility] Eosinophils Percent Auto 3.7 0 - 4 % [facility] Basophils Percent Auto 0.5 0 - 2 % [facility] NRBC Pct Auto 0.0 0.0 - 0.2 /100WBC [facility] Neutrophils Absolute Auto 5.6 2.0 - 8.3 x10*3/uL [facility] Imm Gran Abs Auto 0.05(H) 0.00 - 0.03 X10*3/uL [facility] Lymphocytes Absolute Auto 4.1 1.2 - 4.9 X10*3/uL [facility] Monocytes Absolute Auto 0.9 0.1 - 1.2 X10*3/uL [facility] Eosinophils Absolute Auto 0.4 0.0 - 0.4 X10*3/uL [facility] Basophils Absolute Auto 0.1 0.0 - 0.2 X10*3/uL [facility] NRBC Abs Auto 0.000 0.0 - 0.012 X10*3/uL [facility] 11/07/2024 4:29 PM EDT 11/07/2024 4:33 PM EDT us Generic External Data Provider LAB BLOOD ORDERAB LES Final Result Performing Organization Address City/[facility]/ZIP Co de Phone Number [facility] [address] [place] [phone] * Magnesium (11/07/2024 4:29 PM EDT) Only the most recent of2 resultswithin the time period is included. Magnesium 1.7 1.6 - 2.6 mg/dL [facility] 11/07/2024 4:29 PM EDT 11/07/2024 4:33 PM EDT us Generic External Data Provider LAB BLOOD ORDERAB LES Final Result Performing Organization Address City/[facility]/ZIP Co de Phone Number [facility] [address] [place] [phone] * Lipase (11/07/2024 4:29 PM EDT) Lipase 11 8 - 78 U/L [facility] 11/07/2024 4:29 PM EDT 11/07/2024 4:33 PM EDT us Generic External Data Provider LAB BLOOD ORDERAB LES Final Result [facility] [address] [place], [place] [phone] * (ABNORMAL) Comprehensive Metabolic Panel (11/07/2024 4:29 PM EDT) Sodium 141 135 - 145 mmol/L [facility] Potassium 3.9 3.3 - 5.1 mmol/L [facility] Chloride 110(H) 96 - 108 mmol/L [facility] Carbon Dioxide 25 22 - 29 mmol/L [facility] Anion Gap 10(L) 12 - 20 [facility] Urea Nitrogen (BUN) 12 9 - 16 mg/dL [facility] Creatinine, Serum 0.96 0.5 - 1.4 mg/dL [facility] Creatinine Clr Calc Pharmacy 115.0 [facility] Comment:Provided height and weight: 167.64 cm,165.3 kg.eGFR (calculated from the MDRD study equation) and eCrCl(calculated from the Cockcroft-Gault equation) are based ondifferent parameters and may not yield comparable results.If eCrCl result is absurd, please check patient'sheight/weight. Estimated Glomerular Filt Rate >60 [facility] Comment:Chronic Kidney Disea se: Estimated GFR < 60 mL/min/1.29k4Jpizzu Kidney Disease: Estimated GFR < 15 mL/min/1.73m2 Glucose 97 60 - 115 mg/dL [facility] Calcium 9.2 8.4 - 10.2 mg/dL [facility] Bilirubin, Total 0.2 0.0 - 1.0 mg/dL [facility] Aspartate Amino Transferase 23 5 - 31 U/L [facility] Alanine Aminotransferase 13 0 - 31 U/L [facility] Total Protein 7.6 6.5 - 8.0 g/dL [facility] Albumin Level 3.4(L) 3.5 - 5.0 g/dL [facility] Alkaline Phosphatase 98 39 - 117 U/L [facility] 11/07/2024 4:29 PM EDT 11/07/2024 4:33 PM EDT us Generic External Data Provider LAB BLOOD ORDERAB LES Final Result [facility] [address] [place] [phone] [phone] * POCT ANALISA-14 Urine Drug Screen (10/21/2024 2:02 PM EST) Urine Urine specimen obtained by clean catch procedure / Unknown 10/21/2024 2:02 PM EST Jessica Perez RN - 10/21/2024 2:02 PM EST UTOX cup Lot#[id number] Exp. 04/06/26 Internal Pass Control UTOX Negative [...] PM EST) Influenza A PCR NEGATIVE Negative [facility] Influenza B PCR NEGATIVE Negative [facility] Resp Syncy Virus RNA Qual PCR NEGATIVE Negative [facility] SARS COV2 PCR NEGATIVE Negative [facility] Comment:All test results mus t [...] use by authorized laboratories.Testing performed on the [employer] GeneXpert utilizingreal-time RT-PCR.All SARS CoV2 and positive influenza A/B results arereported to [facility]. 09/29/2024 3:25 PM EST 09/29/2024 3:28 PM EST us Generic External Data Provider LAB MICROBIOLOGY - GENERAL ORDERABLES Final Result [facility] [address] [place] [phone] * Prothrombin Time-INR (09/29/2024 3:25 PM EST) Prothrombin Time 11.4 10.9 - 12.4 SEC [facility] INTERNATIONAL NORM RATIO 1.0 0.9 - 1.1 [facility] Comment:INTERNATIONAL NORMAL IZED RATIO (INR) [...] Final Result Performing Organization Address [facility] Phone Number [facility] [address] [place] [phone] * B Type Natriuretic Peptide (BNP) (09/29/2024 3:25 PM EST) [facility] B Type Natriuretic Peptide 45 <100 pg/mL [facility] Comment:For those patients w ho are being treated with Natrecor(nesiritide, recombinant BNP), BNP testing should beperformed at least two hours post treatment in order toensure that only endogenous levels of BNP are detected. 09/29/2024 3:25 PM EST 09/29/2024 3:28 PM EST [employer] External Data Provider LAB BLOOD ORDERAB LES Final Result Performing Organization Address [facility] Number [facility] [address] [place] [phone] * Hepatic Function Panel (09/29/2024 3:25 PM EST) [facility] Bilirubin, Total 0.5 0.0 - 1.0 mg/dL [facility] Bilirubin, Direct 0.2 0.0 - 0.5 mg/dL [facility] Aspartate Amino Transferase 22 5 - 31 U/L [facility] Alanine Aminotransferase 21 0 - 31 U/L [facility] Total Protein 7.8 6.5 - 8.0 g/dL [facility] Albumin Level 3.6 3.5 - 5.0 g/dL [facility] Alkaline Phosphatase 94 39 - 117 U/L [facility] 09/29/2024 3:25 PM EST 09/29/2024 3:28 PM EST us Generic External Data Provider LAB BLOOD ORDERAB LES Final Result Performing Organization Address City/[facility]/ZIP Co de Phone Number [facility] [address] [place] [phone] [phone] * Basic Metabolic Panel (09/29/2024 3:25 PM EST) Sodium 140 135 - 145 mmol/L [facility] Potassium 4.6 3.3 - 5.1 mmol/L [facility] Chloride 108 96 - 108 mmol/L [facility] Carbon Dioxide 25 22 - 29 mmol/L [facility] Anion Gap 12 12 - 20 [facility] Urea Nitrogen (BUN) 12 9 - 16 mg/dL [facility] Creatinine, Serum 0.82 0.5 - 1.4 mg/dL [facility] Creatinine Clr Calc Pharmacy 139.5 [facility] Comment:Provided height and weight: 175.26 cm,164.1 kg.eGFR (calculated from the MDRD study equation) and eCrCl(calculated from the Cockcroft-Gault equation) are based ondifferent parameters and may not yield comparable results.If eCrCl result is absurd, please check patient'sheight/weight. Estimated Glomerular Filt Rate >60 [facility] Comment:Chronic Kidney Disea se: Estimated GFR < 60 mL/min/1.70x0Pmdtbx Kidney Disease: Estimated GFR < 15 mL/min/1.73m2 Glucose 97 60 - 115 mg/dL [facility] Calcium 9.6 8.4 - 10.2 mg/dL [facility] 09/29/2024 3:25 PM EST 09/29/2024 3:28 PM EST us Generic External Data Provider LAB BLOOD ORDERAB LES Final Result Performing Organization Address City/[facility]/ZIP Co de Phone Number [facility] [address] [facility] [place] [phone] * XR Hip 2 or 3 Views Right (09/17/2024 5:59 PM EST) Anatomical Region Laterality Modality Lower Extremities, Hip Right Radiograp hic Imaging 09/17/2024 5:59 PM EST Narrative 09/17/2024 6:00 PM EST ? [facility] ? [address] ?[place] [address] ?XRay Report ? Signed ? Patient: Blaire Quiroz ?MR#: M ?? [id number] ? : 1975 ?Acct:[id number] ? Age/Sex: 49 / F ?ADM Date: 09/17/24 ? Loc: HO.HOSX ? Attending Dr: Heather Uriarte MD ? Ordering Physician: Heather Aviles ?? Date of Service: 09/17/24 ?? Procedure(s): XR hip RT min 2V ?? Accession Number(s): [id number] ? cc: Carmen Bertrand DO; Heather Aviles [...] DD/ 1759 ? TD/TT: 09/17/24 1759 ? Barrel Cooper: ? Procedure Note Geno, Image - 09/17/2024 [facility] [address] [place] [address] [address] [place] [address] XRay Report Signed Patient: Blaire Quiroz#: M [id number] : 1975Acct:[id number] Age/Sex: 49 / FADM Date: 09/17/24 Loc: GIAN Attending Dr: Heather Uriarte MD Ordering Physician: Heather Aviles Date of Service: 09/17/24 Procedure(s): XR hip RT min 2V Accession Number(s): [id number] cc: Carmen Bertrand DO; Heather Aviles CLINICAL [...] OV> 09/17/24 1800 DD/ 58 TD/TT: 09/17/241758 Barrel Cooper: [facility] External Provider IMG XR PROCEDURES Final Result * XR Sacroiliac Joints 1-2 Views (09/17/2024 5:59 PM EST) Anatomical Region Laterality Modality Sacroiliac joint, Pelvis Radiogr aphic Imaging 09/17/2024 5:59 PM EST Narrative 09/17/2024 6:00 PM EST ? [facility] ? [address] ?[place] [address] ?XRay Report ? Signed ? Patient: Maria Luisa LiurahulBlaire ?MR#: M ?? [id number] ? : 1975 ?Acct:[id number] ? Age/Sex: 49 / F ?ADM Date: 09/17/24 ? Loc: HO.HOSX ? Attending : Heather Uriarte MD ? Ordering Physician: Heather Aviles ?? Date of Service: 09/17/24 ?? Procedure(s): XR sacroiliac joint 1-2V ?? Accession Number(s): [id number] ? cc: Carmen Bertrand DO; Heather Aviles [...] ? DD/ 1759 ? TD/TT: 09/17/241758 ? Barrel Cooper: ? Procedure Note Donclintonter, Image - 09/17/2024 [facility] [address] [place] [address] Drive [address] [place] [address] XRay Report Signed Patient: Blaire QuirozMR#: M [id number] : 1975Acct:[id number] Age/Sex: 49 / FADM Date: 09/17/24 Loc: SHASHANKGeorgiPHILLIP Attending Dr: Heather Uriarte MD Ordering Physician: Heather Aviles Date of Service: 09/17/24 Procedure(s): XR sacroiliac joint 1-2V Accession Number(s): [id number] cc: Carmen Bertrand DO; Heather Aviles CLINICAL [...] OV> 09/17/24 1800 DD/ 58 TD/TT: 09/17/241758 Barrel Cooper: us [facility] External Provider IMG XR PROCEDURES Final Result * (ABNORMAL) Rheumatoid Factor (09/17/2024 11:45 AM EST) Rheumatoid Factor 28.2(H) <15.0 IU/mL [facility] 09/17/2024 11:4 5 AM EST 09/17/2024 11:45 AM EST us Generic External Data Provider LAB BLOOD ORDERAB LES Final Result [facility] [address] [place] [phone] [phone] * (ABNORMAL) REBECCA Screen,IFA, with Reflex to Titer and Pattern (09/17/2024 11:45 AM EST) Anti Nuclear Antibody Screen POSITIVE (A) NEGATIVE [facility] Comment:REBECCA IFA is a first l ine screen for detecting thepresence of up to approximately 150 autoantibodies invarious autoimmune diseases. A positive REBECCA IFA resultis suggestive of autoimmune disease and reflexes totiter and pattern. Further laboratory testing may beconsidered if clinically indicated.For additional information, please refer tohttp://education.Scheduling Employee Scheduling Software/faq/VII397(This link is being provided for informational/educational purposes only.) REBECCA Titer 1:40(A) titer [facility] Comment:A low level REBECCA tite r may be present in pre-clinicalautoimmune diseases and normal individuals. Reference Range <1:40 Negative 1:40-1:80 Low Antibody Level >1:80 Elevated Antibody Level REBECCA Pattern Nuclear, Speckled (A) [facility] Comment:Speckled pattern is associated with mixed connectivetissue disease (MCTD), systemic lupus erythematosus(SLE), Sjogren's syndrome, dermatomyositis, andsystemic sclerosis/polymyositis overlap.AC-2,4,5,29: SpeckledInternational Consensus on REBECCA Patterns(https://doi.org/10.1515/yxnu-[email or web address])THIS TEST WAS PERFORMED AT:[facility] ([facility])[address] [place] [id number] HINTON MD REBECCA TITER 2 (REF LAB) [facility] REBECCA Pattern 2 [facility] REBECCA TITER 3 [facility] REBECCA PATTERN 3 [facility] 09/17/2024 11:4 5 AM EST 09/17/2024 11:45 AM EST us Generic External Data Provider LAB BLOOD ORDERAB LES Final Result [facility] [address], [place] [phone] * (ABNORMAL) Cologuard?? colon cancer screening (08/31/2024 10:33 AM EST) Cologuard Result Positive( A) Negative 09/07/2024 10:16 AM EST [facility] (CLIA #:[id number]) Comment: POSITIVE TEST RESULT. A positive Cologuard [...] (Ashleigh Zhou al, N Engl J Med 2014;370(14):6889-4488.) Cologuard may produce a false negative or false positive result (no colorectal cancer or precancerous polyp present at colonoscopy follow up). A negative Cologuard test result does not guarantee the absence of CRC or advanced adenoma (pre-cancer). The current Cologuard screening interval is every 3 years. ([place] Cancer Society and U.S. Multi-Society Task Force). Cologuard performance data in a 10,000 patient pivotal study using colonoscopy as the reference method can be accessed at the following location: [email or web address]. Additional description of the Cologuard test process, warnings and precautions can be found at www.cologSocial [email or web address].com. Stool specimen (specimen) 08/31/2024 10:33 AM EST 09/01/2024 11:06 AM EST Carmen Bertrand DO LAB MOLECULAR DIAGNOSTICS OR DERABLES Final Result Performing Organization Address City/[facility]/ZIP Co de Phone Number [facility] (CLIA #:[id number]) [place] [address], [place] [phone] * Hemoglobin A1c (08/24/2024 11:57 AM EST) [...] sample. Estimated Average Glucose 126 mg/dL [facility] Comment:eAG = Estimated ave rage glucose which is %A1C expressed asaverage glucose, using the formula of the U4L-NtqhzqvRlffakt Glucose study (ADAG), Diabetes Care, Vol.31,#8,Aug. 2007 Blood Venous blood specimen / Unknown 08/24/2024 11:57 AM EST 08/24/2024 1:03 PM EST Carmen Bertrand Nubli LAB BLOOD ORDERABLES Final R esult Performing Organization Address City/[facility]/ZIP Co de Phone Number [facility] [address] [place] [phone] * (ABNORMAL) Lipid Panel, Standard (08/24/2024 11:57 AM EST) Triglycerides 82 <150 mg/dL [facility] Comment:Desirable Triglyceri de: less than 150 mg/dLBorderline High Triglyceride 150-199 mg/dLHigh Triglyceride: 200-499 mg/dLVery High Triglyceride: greater than or equal to 5OO mg/dL Cholesterol 136 <200 mg/dL [facility] Comment:Desirable Cholestero l: less than 200 mg/dLBorderline High Cholesterol: 200-239 mg/dLHigh Cholesterol: greater than 239 mg/dL LDL Cholesterol Calculated 81 <100 mg/dL [facility] Comment:Desirable LDL: less than 100 mg/dLNear Optimal/Above Optimal LDL: 110- 129 mg/dLBorderline High LDL: 130-159 mg/dLHigh LDL: 160-189 mg/dLVery High LDL: greater than or equal to 190 mg/dL HDL Cholesterol 39(L) >40 mg/dL [facility] Comment:Desirable HDL: great er than 40 mg/dL Note: This HDL assay may give artificially low results in patients with liver disease. Blood Venous blood specimen / Unknown 08/24/2024 11:57 AM EST 08/24/2024 1:03 PM EST us Carmen Bertrand DO LAB BLOOD ORDERABLES Final R esult [facility] [address] [place] [phone] * BI US Breast Limited Bilateral (06/02/2024 2:00 PM EDT) Anatomical Region Laterality Modality Breast Bilateral Ultrasound 06/02/2024 2:00 PM EDT Narrative 06/03/2024 8:44 AM EDT ? [facility] ? [address] ?[place] [address] ? Ultrasound Report ? Signed ? Patient: Maria Luisa Jean,Blaire ?MR#: [id number] ?? [id number] ? : 1975 ?Acct:[id number] ? Age/Sex: 49 / F ?ADM Date: 10/16/24 ? Loc: HO.MAMMO ? Attending Dr: Carmen Bertrand DO ? Ordering Physician: Carmen Bertrand DO ?? Date of Service: 06/02/24 ?? Procedure(s): US breast BI limited mamm only ?? Accession Number(s): [id number] ? cc: Carmen Bertrand DO ? EXAMINATION: [...] ??06/03/2024 08:41 AM EDT RP ?? Workstation: [id number] ? Dictated By: ?Shamir Olmedo MD ? Signed By: ?<Electronically signed by Shamir Olmedo MD in [place]> ?06/03/24 0841 ? DD/ 1400 ? TD/TT: 06/02/24 1454 ? Barrel Cooper: ? Procedure Note Dawna Lora - 06/03/2024 [facility] [address] [place] [address] Ultrasound Report Signed Patient: Blaire Quiroz#: M [id number] : 1975Acct:[id number] Age/Sex: 49 / FADM Date: 06/02/24 Loc: HO.MAMMO Attending Dr: Carmen Bertrand DO Ordering Physician: Carmen Bertrand DO Date of Service: 06/02/24 Procedure(s): US breast BI limited mamm only Accession Number(s): [id number] cc: Carmen Bertrand DO EXAMINATION: US DIAGNOSTIC [...] 06/03/24 0841 DD/ 1400 TD/TT: 06/02/24 1454 Barrel [place]: Result [facility] Carmen Bertrand DO IMG US PROCEDURES Final Resu lt * Hepatitis C Antibody with Reflex to HCV, RNA, Quantitative, Real-Time PCR (04/27/2024 2:02 PM EDT) Hepatitis C Antibody Nonreactive Nonreactive [facility] Comment:Antibodies to HCV no t detected; does not exclude early acuteHCV infection. Blood Venous blood specimen / Unknown 04/27/2024 2:02 PM EDT 04/27/2024 4:01 PM EDT Result [facility] Carmen Bertrand DO LAB BLOOD ORDERABLES Final R esult Performing Organization Address [facility]/State/ZIP Co de Phone Number [facility] [address] [place] [phone] * HIV Ab/Ag ([facility]) (02/21/2023 2:35 PM EDT) HIV AB/AG Nonreactive Nonreactive [facility] Comment:HIV-1 p24 Ag and/or HIV-1/HIV-2 Ab not detected.A test result that is nonreactive does not exclude thepossibility of exposure to or infection with HIV-1 and/orHIV-2. Nonreactive results in this assay for individualswith prior exposure to HIV-1 and/or HIV-2 may be due toantigen and antibody levels that are below the limit ofdetection of this assay.The [employer] Instructor HIV Ag/Ab Combo assay result andsupplemental assay results should be interpreted inconjunction with the patient's clinical presentation,history and other laboratory results. If the results areinconsistent with clinical evidence, additional testing issuggested to confirm the result. 02/21/2023 2:35 PM EDT 02/21/2023 2:37 PM EDT Result [facility] External Provider LAB BLO OD ORDERABLES Final Result [facility] [address] [place] [phone] from Last 3 Months or Most Recently Relevant to Health Maintenance Insurance [employer] < 65 Care Teams Resort Manager Relationship Specialty Start Date End Date Carmen Bertrand DO [address] [place] [address] PCP - General Family Medicine 08/18/18
--- OUTSIDE RECORDS SUMMARY | 2024-12-13 17:33 | XMS_ITS | Encounter Summary ---
Author Organization [employer] Address [address] [address] [facility] [address] 7t [place] [address] Care Team Providers Care Transformation Analyst Name Role Phone Carmen Bertrand DO Primary Care Provider + [phone] Reason for Visit * Reason Comments Med Refill Encounter Details Date Type Department Care Team ([facility] st Contact Info) Description 07/22/2023 Refill [facility] MED & PEDS [address] [place], [place] [phone] Carmen Bertrand DO [address] [facility] [place] [address] Hyperlipidemia, unspecified hyperlipidemia type Social History Tobacco [...] 01/24/2025 1:00 PM EDT Clinical Support [facility] [address] [place] [address] 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 RN documented as of this encounter Visit Diagnoses Diagnosis Hyperlipidemia, unspecified hyperlipidemia type documented in this encounter Additional Health Concerns Assessment Noted Time PHQ-9 Depression Total Score: 21 023 11:26 AM EST documented as of this encounter Care Teams Transformation Analyst Relationship Specialty Start Date End Date Carmen Bertrand DO [address] [place] [address] PCP - General Family Medicine 08/18/18 documented as of this encounter
--- OUTSIDE RECORDS SUMMARY | 2024-12-13 17:33 | XMS_ITS | Encounter Summary ---
Author Organization [employer] Address [address] [facility] 7t [place] [address] Care Team Providers Care Wet Room Supervisor Name Role Phone Carmen Bertrand DO Primary Care Provider [phone] Reason for Visit * Reason Comments Med Refill Encounter Details Date Type Department Care Team ([facility] st Contact Info) Description 11/20/2022 Refill [facility] [address] [place] [address] Carmen Bertrand DO [address] [place] [address] Morbid obesity with body mass index (BMI) [...] Description 01/24/2025 1:00 PM EDT Clinical Support [facility] [address] [place] [address] 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, RN documented as of this encounter Visit Diagnoses Diagnosis Morbid obesity with body mass index (BMI) of 50.0 to 59.9 in adult (CMS/HCC) documented in this encounter Additional Health Concerns Assessment Noted Time PHQ-9 Depression Total Score: 16 023 12:22 PM EST documented as of this encounter Care Teams Wet Room Supervisor Relationship Specialty Start Date End Date Carmen Bertrand DO [address] [place] [address] PCP - General Family Medicine 08/18/18 documented as of this encounter
--- OUTSIDE RECORDS SUMMARY | 2024-12-13 17:33 | XMS_ITS | Encounter Summary ---
Author Organization [employer] Address [address] [place] [address] 7t [place] [address] Care Team Providers Care Counselor/Art Therapist Name Role Phone Carmen Bertrand DO Primary Care Provider [phone]- [phone] Encounter Details Date Type Department Care Team (Late st Contact Info) Description 09/09/2022 Orders Only [facility] CH[facility] MED & PEDS [address] [place] [address] Carmen Perez LPN Social History Tobacco Use [...] Clinical Support [facility] [address] [place] [address] 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, RN documented as of this encounter Visit Diagnoses Not on filedocumented in this encounter Care Teams Counselor/Art Therapist Relationship Specialty Start Date End Date Carmen Bertrand DO [address] [place] [address] PCP - General Family Medicine 08/18/18 documented as of this encounter
--- OUTSIDE RECORDS SUMMARY | 2024-12-13 17:33 | XMS_ITS | Encounter Summary ---
Author Organization [employer] Address [address] [facility] 7t [place] [address] Care Team Providers Care Senior Business Process Analyst Name Role Phone Carmen Bertrand DO Primary Care Provider [phone] Reason for Visit * Reason Onset Date Comments Med Refill 12/07/2024 Encounter Details Date Type Department Care Team ([facility] st Contact Info) Description 12/07/2024 Refill [facility] CHC MED & PEDS [address] [place], [place] [phone] Carmen Bertrand DO [address] [place] [address] Chronic low back pain, unspecified back pain [...] Description 01/24/2025 1:00 PM EDT Clinical Support [facility] [address] [place] [address] 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, RN documented as of this encounter Visit Diagnoses Diagnosis Chronic low back pain, unspecified back pain laterality, unspecified whether sciatica present documented in this encounter Additional Health Concerns Assessment Noted Time PHQ-9 Depression Total Score: 22 024 11:00 AM EDT documented as of this encounter Care Teams Senior Business Process Analyst Relationship Specialty Start Date End Date Carmen Bertrand DO [address] [place] [address] PCP - General Family Medicine 08/18/18 documented as of this encounter
--- OUTSIDE RECORDS SUMMARY | 2024-12-13 17:33 | XMS_ITS | Encounter Summary ---
Author Organization [employer] Address [address] [facility] 7t [place] [address] Care Team Providers Care Vp Foundation Name Role Phone RajeevCarmen jones Primary Care Provider + [phone] Reason for Visit * Reason Comments Med Refill Encounter Details Date Type Department Care Team ([facility] st Contact Info) Description 03/08/2024 Refill [facility] [address] [place] [address] Rox Sutton MD 230 [place] [address] Pain Social History Tobacco Use Types Packs/Day [...] Clinical Support [facility] [address] [place] [address] 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 RN documented as of this encounter Visit Diagnoses Diagnosis Pain Generalized pain documented in this encounter Additional Health Concerns Assessment Noted Time PHQ-9 Depression Total Score: 21 023 11:26 AM EST documented as of this encounter Care Teams Vp Foundation Relationship Specialty Start Date End Date Carmen Bertrand DO [address] [place] [address] PCP - General Family Medicine 08/18/18 documented as of this encounter
--- OUTSIDE RECORDS SUMMARY | 2024-12-13 17:33 | XMS_ITS | Encounter Summary ---
Author Organization [employer] Address [address] [facility] 7t [place] [address] Care Team Providers Care Veterans Service Officer Name Role Phone Carmen Bertrand DO Primary Care Provider + [phone] Reason for Visit * Reason Comments Med Refill Encounter Details Date Type Department Care Team ([facility] st Contact Info) Description 02/24/2024 Refill [facility] [address] [place] [address] Carmen Bertrand DO 230 [place] [address] Social History Tobacco Use Types Packs/Day Years [...] 1:00 PM EDT Clinical Support [facility] [address] [place] [address] 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 RN documented as of this encounter Visit Diagnoses Not on filedocumented in this encounter Additional Health Concerns Assessment Noted Time PHQ-9 Depression Total Score: 21 023 11:26 AM EST documented as of this encounter Care Teams Veterans Service Officer Relationship Specialty Start Date End Date Carmen Bertrand DO [address] [place] [address] PCP - General Family Medicine 08/18/18 documented as of this encounter
--- OUTSIDE RECORDS SUMMARY | 2024-12-13 17:33 | XMS_ITS | Encounter Summary ---
Author Organization [employer] Address [address] [facility] [facility] [address] 7t [place] [address] Care Team Providers Care Die Trimmer Name Role Phone Carmen Bertrand DO Primary Care Provider + [phone] Reason for Visit * Reason Comments Med Refill Encounter Details Date Type Department Care Team ([facility] st Contact Info) Description 03/16/2024 Refill [facility] CH[facility] MED & PEDS [address] [place], [place] [phone] Carmen Bertrand DO [address] [facility] [place] [address] Chronic low back pain, unspecified back pain [...] Support [facility] [address] [place] [address] 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 RN documented as of this encounter Visit Diagnoses Diagnosis Chronic low back pain, unspecified back pain laterality, unspecified whether sciatica present documented in this encounter Additional Health Concerns Assessment Noted Time PHQ-9 Depression Total Score: 21 023 11:26 AM EST documented as of this encounter Care Teams Die Trimmer Relationship Specialty Start Date End Date Carmen Bertrand DO 230 [place] [address] PCP - General Family Medicine 08/18/18 documented as of this encounter
--- OUTSIDE RECORDS SUMMARY | 2024-12-13 17:33 | XMS_ITS | Encounter Summary ---
Author Organization [employer] Address [address] [facility] [address] 7t [place] [address] Care Team Providers Care Financial Compliance Officer Name Role Phone Carmen Bertrand DO Primary Care Provider + [phone] Reason for Visit * Reason Comments Med Refill Encounter Details Date Type Department Care Team ([facility] st Contact Info) Description 05/12/2024 Refill [facility] CHC MED & PEDS [address] [place], [place] [phone] Carmen Bertrand DO 230 [facility] [place] [address] Chronic low back pain, unspecified back pain [...] Description 01/24/2025 1:00 PM EDT Clinical Support [facility] [address] [place] [address] 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, RULA documented as of this encounter Visit Diagnoses Diagnosis Chronic low back pain, unspecified back pain laterality, unspecified whether sciatica present documented in this encounter Additional Health Concerns Assessment Noted Time PHQ-9 Depression Total Score: 22 024 11:00 AM EDT documented as of this encounter Care Teams Financial Compliance Officer Relationship Specialty Start Date End Date Carmen Bertrand DO 230 [place] [address] PCP - General Family Medicine 08/18/18 documented as of this encounter
--- OUTSIDE RECORDS SUMMARY | 2024-12-13 17:33 | XMS_ITS | Encounter Summary ---
Author Organization [employer] Address [address] [place] [address] 7t [place] [address] Care Team Providers Care Shoe Fitter Name Role Phone EdilsonCarmen dixon Primary Care Provider + [phone] Reason for Visit * Reason Comments Med Refill Encounter Details Date Type Department Care Team ([facility] Contact Info) Description 02/03/2023 Refill [facility] [address] [place] [address] Leticia Ramirez MD [address] [place] [address] Nonintractable headache, unspecified chronicity pattern, unspecified headache [...] Upcoming Encounters Date Type Department Care Team ([facility] Contact Info) Description 01/24/2025 1:00 PM EDT Clinical Support [facility] [address] [place] [address] Jesscia Conway RN documented as of this encounter Visit Diagnoses Diagnosis Nonintractable headache, unspecified chronicity pattern, unspecified headache type documented in this encounter Additional Health Concerns Assessment Noted Time PHQ-9 Depression Total Score: 16 023 12:22 PM EST documented as of this encounter Care Teams Shoe Fitter Relationship Specialty Start Date End Date Carmen Bertrand DO [address] [place] [address] PCP - General Family Medicine 08/18/18 documented as of this encounter
--- OUTSIDE RECORDS SUMMARY | 2024-12-13 17:33 | XMS_ITS | Encounter Summary ---
Author Organization [facility] Address [address] [place] [address] 7t [place] [address] Care Team Providers Care High Scaler Name Role Phone Carmen Bertrand DO Primary Care Provider [phone] Encounter Details Date Type Department Care Team (Late st Contact Info) Description 09/09/2022 Orders Only [facility] MEDICINE [address] [place] [address] Azul Albrecht LPN Social History Tobacco Use [...] Description 01/24/2025 1:00 PM EDT Clinical Support [facility] MEDICINE [address] [place] [address] 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, RN documented as of this encounter Visit Diagnoses Not on filedocumented in this encounter Care Teams High Scaler Relationship Specialty Start Date End Date Carmen Bertrand DO 230 [place] [address] PCP - General Family Medicine 08/18/18 documented as of this encounter
== END 2024-12-13 09:56 | disposition home or self-care (01) ==
LOC: HO.LAB 09:55
PROVIDERS: PCP Family Medicine; Visit Provider Nurse Practitioner Family
DX: N39.0 Urinary tract infection, site not specified (principal); I21.4 Non-ST elevation (NSTEMI) myocardial infarction; N13.2 Hydronephrosis with renal and ureteral calculous obstruction; I10 Essential (primary) hypertension; E66.01 Morbid (severe) obesity due to excess calories; Z98.890 Other specified postprocedural states; Z98.61 Coronary angioplasty status
CPT/HCPCS: 81003; 87086; 93005; 99212

== ENCOUNTER 2024-12-13 13:03 | Outpatient (AMB) | payer OTHER, SELFPAY ==
[2022-10-22 13:00] VITALS: BP 128/72; BP 148/88; BMI 63.7
[2023-01-30 14:13] VITALS: BP 140/60
--- NOTE | 2024-12-13 13:21 | A.OFFVIS_ITS ---
Intake Visit Reasons: US follow up- hospital discharge Intake Note: Patient is Present for a follow up/US/Hospital discharge Urology Med: Vitamin B6, Allopurinol, Tamsulosin Antibiotic Allergy:Penicillins Blood Thinner:Aspirin Steerer Required: Yes Steerer Language: Wire Transfer Clerk Services: Steerer Present Steerer Name: Shikha [id number] Information Interpreted: non-clinical & clinical Accompanied by: Self / Same As Patient Allergies penicillin G [PENICILLIN G] Allergy (Severe, Verified 12/13/24 13:23) DIFFICULTY BREATHING semaglutide [From Ozempic] Adverse Reaction (Severe, Verified 12/13/24 13:23) Stomach Upset Medication List - Last Reconciled 12/13/24 by Ricardo Lepe MD albuterol sulfate 90 mcg/actuation (Ventolin HFA) 2 puffs PO Q4-6H PRN albuterol sulfate 2.5 mg inhalation Q4-6H PRN allopurinol 100 mg PO DAILY 90 days amlodipine (Norvasc) 5 mg PO DAILY aspirin 81 mg PO DAILY atorvastatin (Lipitor) 80 mg PO BEDTIME benzoyl peroxide 10% 1 appl topical DAILY blood pressure test kit-large As directed cholecalciferol (vitamin D3) 50 mcg PO DAILY econazole nitrate 1% 1 appl topical BID emtricitabine-tenofovir (TDF) 200-300 mg 1 tab PO DAILY ezetimibe 10 mg PO DAILY famotidine 40 mg PO BEDTIME PRN fluticasone propionate 50 mcg/actuation 2 sprays intranasal DAILY fluticasone propionate 110 mcg/actuation 2 puffs inhalation BID hydrochlorothiazide 12.5 mg PO DAILY hydroquinone 4% 1 appl topical BID isosorbide mononitrate ER 60 mg PO DAILY lisinopril 20 mg PO DAILY metformin ER 500 mg PO DAILY@1700 metoprolol succinate ER 50 mg PO DAILY metronidazole 0.75% 1 appl topical DAILY PRN nitroglycerin 0.4 mg sublingual Q5M PRN omeprazole 40 mg (2 x 20 mg) PO DAILY pyridoxine (vitamin B6) 100 mg PO DAILY 90 days tirzepatide (weight loss) (Zepbound) 2.5 mg subcut TH topiramate 50 mg PO BID tramadol 50 mg PO Q8H PRN HPI Comments Details: 12/13/2024--Blaire is a 49-year-old female who has been followed for kidney stones. She was last in the office in June 2024. The patient was recently hospitalized at [facility] for renal colic and had cardiac issues during that admission. She was seen by Cardiology on 11/23/2024, and I have reviewed his note: ( 11/23/2024--Blaire comes for follow-up after recent hospitalization for renal colic at which time she had myocardial injury. Subsequent myocardial perfusion imaging showed mild intensity ischemia in mid to distal LAD territory. She was managed medically. Since then she was trying to slow down smoking but has not quit. She had also trying to lose weight. History of CAD with LAD stent. Recent secondary NSTEMI in the setting of pain from noncardiac issue. Her nuclear stress test did show mild intensity ischemia in the mid to distal LAD territory which was being managed medically due to the absence of symptoms. Echocardiogram 11/07/2024 shows EF 60-65%, grade 1 diastolic dysfunction, early mild . She then presented to the emergency room on 11/25 with chest discomfort that improved some with nitroglycerin, troponins normal. She underwent cardiac catheterization showing left main ostial 40% stenosis, lad st ent patent. Test results reviewed with her in detail. Signs and symptoms of true angina discussed. Continue aspirin indefinitely. Continue high-dose atorvastatin and Zetia with ideal LDL goal less than 70. Continue metoprolol and isosorbide. Will reduce lisinopril dose down to 20 mg daily from 30 mg due to reports of lightheadedness and low blood pressure reading. Cardiology follow-up 6 months, sooner if needed.) She remains on aspirin for blood thinner, she states that she has intermittent left-sided flank pain. Due to body habitus follow-up evaluation CT stone protocol is warranted for accurate evaluation of the urinary tract regarding persistent left ureteral stone and hydronephrosis. Discussed 24 hour urine check encouraged increase fluids and adding citrate to her diet. Results: CTAP--11/07/2024-- 4 mm left ureteral calculus at the level of L5 with mild left hydronephrosis.Multiple additional nonobstructing bilateral renal calculi. Stone analysis 03/02/24--calcium oxalate 07/01/24--Discussed 24 hour urine results: Total volume 2.26 mL, Calcium 225 mg; Oxalate 62 mg, Sodium 259, Citrate 309 mg. 03/02/24--Stone analysis calcium oxalate. Instructed on importance of fluid intake, Low oxalate diet, low sodium diet. Refer to Nephrology for hypercalciuria. 03/25/2024--here for stent removal. status post ureteroscopy laser lithotripsy on 03/02/2024. I have reviewed stone analysis--calcium oxalate dihydrate 95%, calcium oxalate monohydrate 5%. Review of imaging CTAP--02/13/2024 there are multiple bilateral kidney stones. Continue allopurinol 100 mg daily and vitamin B6 100 mg daily. Plan 24 hour urine collection. 02/27/2024--Blaire is a 48-year-old [place]-speaking female, her daughter interprets for her during this visit. The patient had a right ureteral stent placed while an inpatient on 02/13/2024 for right hydronephrosis secondary to obstructing 3.5 mm proximal ureteral stone, s/p right ureteral stent. CT imagi ng notes bilateral small kidney stones. I have discussed plan for right ureteroscopy laser lithotripsy stent exchange. 10/28/23--Blaire is a pleasant 48 year old [place] speaking patient of Dr. Jarrett pinto. She has a past medical history of asthma, coronary artery disease, chronic pain, depression, fatty liver, hypertension, nephrolithiasis, migraines, non ST- elevation MD, obesity, obstructive sleep apnea on CPAP, PTSD and nicotine dependence. She presents to the office today for follow-up of her nephrolithiasis and recurrent urinary tract infections. In discussion with the patient today she reports to be doing and feeling well via urologically. She does discuss following up with GI for ongoing gastric issues she has been having and has since come off of Ozempic as she feels this was a contributing factor. Recent renal imaging results reviewed with the patient today. Right kidney with 0.5 cm lower pole calculus no hydronephrosis. Left kidney with 0.5 cm mid to lower pole calculus. Mid pole 0.4 left calculus. No hydronephrosis. No change in the renal calculi since prior CT. She otherwise denies hematuria, dysuria, foul smelling urine, changes to urinary stream, flank pain, fever, and or chills. She denies any bothersome urinary issues or concerns at this time. She reports compliance with vitamin B6 and alluprinol as prescribed. She continues to drink plenty of water daily. In office urinalysis results reviewed with the patient today. She denies having had any UTIs since her last office visit here approximately 6 months ago. She otherwise offers no other issues or concerns at this time. [facility] Medical History Morbid obesity Hidradenitis suppurativa CAD (coronary artery disease) Subsequent non-ST elevation myocardial infarction (NSTEMI) within 4 weeks of initial infarction Non-ST elevation MD (NSTEMI) YAMILETH on CPAP Hyperlipidemia PTSD (post-traumatic stress disorder) Fatty liver Smoker Depression Obesity Leukocytosis Frequent UTI Asthma Mass of throat Chronic pain Kidney stone Migraine HTN (hypertension) Surgical History H/O excision of mass (06/28/24) Hx of cystoscopy Stented coronary artery History of heart artery stent History of lumpectomy of left breast (10/22/21) History of lithotripsy History of endometrial ablation Hx of colonoscopy History of breast lump/mass excision History of tonsillectomy H/O: hysterectomy Family History Father Hypertension Mother Hypertension Osteoporosis Hx of bilateral cataract extraction Paternal Grandmother Diabetes Sister Asthma Maternal Uncle Throat cancer Maternal Aunt Ovarian cancer Breast cancer Social History Household Members: Family Housing: Apartment Are you a primary managed care nurse to a significant other at home: No Do you presently have visiting nurse or other home services: Yes (angle shear set up operator services) Alcohol intake: never Comment: pt refusing alarms Patient Tobacco Use Status: Current everyday Tobacco user Tobacco use type: Cigarette Cigarette Packs Per Day: 0.5 Cigarettes Per Day: 10 Years Smoked: 30 e-Cigarette/Vaping Use: Never Used Second Hand Smoke Exposure: No Advance Directives Date on File: 10/28/22 service: No Current occupational status: unemployed and retired Review of Systems Const All systems reviewed & are unremarkable except as noted in HPI and below Reports no additional complaints Eyes Reports no additional complaints ENT Reports no additional complaints Card Reports no additional complaints Resp Reports no additional complaints GI Reports no additional complaints Reports as per HPI Musc Reports no additional complaints Skin/Breast Reports system reviewed and no additional complaints, except as documented Neuro Reports no additional complaints Psych Reports no additional complaints Endo Reports no additional complaints Brian/Lymph Reports no additional complaints Aller/Immun Reports no additional complaints Results AMB Urinalysis, Automated UA Leukoctes 15 Megha/uL Last Edit by Kelly Jean on 12/13/24 13:29 UA Nitrite Negative Last Edit by Kelly Jean on 12/13/24 13:29 UA Urobilinogen 1 mg/dL Last Edit by Crystal Jean on 12/13/24 13:29 UA Protein 30 mg/dL Last Edit by Crystal Jean on 12/13/24 13:29 UA pH 5.5 Last Edit by Kelly Jean on 12/13/24 13:29 UA Blood 200 Peter/uL Last Edit by Kelly Jean on 12/13/24 13:29 UA Specific [place] 1.025 Last Edit by Kelly Jean on 12/13/24 13:29 UA Ketone Positive Last Edit by Galazar Jean on 12/13/24 13:29 UA Bilirubin 0 mg/dL Last Edit by Galazar Jean on 12/13/24 13:29 UA Glucose 0 mg/dL Last Edit by Galazar Jean on 12/13/24 13:29 Results Reviewed Results Reviewed: Laboratory Last Values Urine pH (Auto) 5.5 12/13/24 01:30 Specific [place] (Auto) 1.025 12/13/24 01:30 Urine Protein (Auto) 30 mg/dL 12/13/24 01:30 Glucose (UA)(Auto) 0 mg/dL 12/13/24 01:30 Urine Ketones (Auto) Positive 12/13/24 01:30 Urine Blood (Auto) 200 Peter/uL 12/13/24 01:30 Urine Nitrite (Auto) Negative 12/13/24 01:30 Urine Bilirubin (Auto) 0 mg/dL 12/13/24 01:30 Urine Urobilinogen (Auto) 1 mg/dL 12/13/24 01:30 Leukocyte Esterase (Auto) 15 Megha/uL 12/13/24 01:30 Date of Service: 11/07/24 Report Number: [id number]: Total DLP = 1392.00 mGy-cm CLINICAL HISTORY: left flank pain CT abdomen and pelvis without contrast Comparison: DX - XR HIP RT MIN 2V - 09/17/24 11:03 EST US/SR - US ABDOMEN COMPLETE - 05/07/24 09:[address]/KS/SR - CT ABDOMEN PELVIS WO IV CON - 02/12/24 20:37 EDT Findings: Small hiatal hernia. Liver, gallbladder, pancreas, spleen, and adrenal glands are within normal limits. There is a small accessory splenule. Mild left hydronephrosis with 4 mm calculus in the left ureter at the level of L5. No hydronephrosis on the right. There are multiple additional bilateral nonobstructing renal calculi. No bowel obstruction, pneumoperitoneum, or pneumatosis. Aortic atherosclerosis. No aneurysm. Hysterectomy. The bones are intact. Degenerative changes of the spine. IMPRESSION: 4 mm left ureteral calculus at the level of L5 with mild left hydronephrosis. Multiple additional nonobstructing bilateral renal calculi. 03/02/24--Stone analysis calcium oxalate Date of Service: 02/12/24 EXAMINATION: CT ABDOMEN AND PELVIS WITHOUT CONTRAST CLINICAL INFORMATION: Right flank pain. Renal calculi. COMPARISON: CT abdomen pelvis dated 02/06/2024. TECHNIQUE: Multidetector volumetric imaging was performed from the superior aspect of the liver through the pubic symphysis. Sagittal and coronal reformatted images were obtained on the technologist's workstation. This CT examination was performed using dose optimization techniques as appropriate, variously including the following: *Automated exposure control *Adjustment of mA and/or kV according to patient size (this includes techniques or standardized protocols for targeted exams where dose is matched to indication/reason for exam; i.e. extremities or head) *Use of iterative reconstruction technique DLP: 1294 mGy-cm FINDINGS: LUNG BASES: The visualized lung bases are unremarkable. LIVER, GALLBLADDER, AND BILIARY TREE: The liver is normal in size, shape, and attenuation. No focal hepatic lesion or biliary ductal dilatation is present. The gallbladder is unremarkable with no evidence of radiopaque gallstones, gallbladder wall thickening, or obvious pericholecystic inflammatory changes. PANCREAS: Unremarkable. SPLEEN: Unremarkable. ADRENAL GLANDS: Unremarkable. KIDNEYS AND URETERS: Right side: The right kidney is asymmetrically larger than the left and appears somewhat edematous. There is mild right-sided hydronephrosis. The proximal right ureter is dilated to the level of a calculus measuring 3.5 mm. The ureter distal to this calculus is decompressed. The right kidney contains multiple calculi ranging in size from punctate to 2.8 mm. These calculi are too small to get accurate Hounsfield unit values. Left side: There are multiple left renal calculi ranging in size from punctate to 4 mm in size. The 4 mm calculus has an average Hounsfield unit value of 405. There is no left-sided hydronephrosis. No left ureteral calculus. BLADDER: The urinary bladder is decompressed. No urinary bladder calculi are identified. GASTROINTESTINAL TRACT: The small and large bowel are normal in caliber. There is no pericolonic inflammatory stranding. The appendix is nonvisualized. ABDOMINAL WALL: No significant hernia is appreciated. LYMPH NODES: No lymphadenopathy. VASCULAR: No abdominal aortic aneurysm. Minimal atherosclerotic change. PELVIC VISCERA: The uterus is not visualized. There is no adnexal mass. No free fluid within the pelvis. OSSEOUS STRUCTURES: There are degenerative changes of lower lumbar spine. CT/CT abdomen pelvis wo IV con IMPRESSION: The right kidney is asymmetrically larger than the left and appears somewhat edematous. There is mild right-sided hydronephrosis. The proximal right ureter is dilated to the level of a calculus measuring 3.5 mm. The ureter distal to this calculus is decompressed. The right kidney contains multiple calculi ranging in size from punctate to 2.8 mm. These calculi are too small to get accurate Hounsfield unit values. Fleischner guidelines were followed. There are multiple left renal calculi ranging in size from punctate to 4 mm in size. The 4 mm calculus has an average Hounsfield unit value of 405. There is no left-sided hydronephrosis. No left ureteral calculus. Date of Service: 10/07/23 EXAMINATION: US RETROPERITONEAL LIMITED (RENAL ONLY) FINDINGS: RIGHT KIDNEY: 11.5 x 6.4 x 5.6 cm (SAG x AP x TRV). A 0.5 cm lower pole calculus. No hydronephrosis. Renal cortical thickness is normal. Limited visualization. LEFT KIDNEY: 11.5 x 5.2 x 4.6 cm (SAG x AP x TRV). Limited visualization. Renal cortical thickness is normal. Mid to lower pole 0.5 cm calculus. Mid pole 0.4 cm calculus. No hydronephrosis. IMPRESSION: Bilateral nonobstructive renal calculi. No hydronephrosis. Assessment & Plan Assessment & Plan (1) Morbid obesity: Code(s): E66.01 - Morbid (severe) obesity due to excess calories Category: Medical Plan: She is on medications for weight loss. (2) Hypercalciuria: Code(s): R82.994 - Hypercalciuria Category: Medical (3) Hyperoxaluria: Code(s): R82.992 - Hyperoxaluria Category: Medical (4) Bilateral kidney stones: Code(s): N20.0 - Calculus of kidney Category: Medical (5) Left ureteral calculus: Code(s): N20.1 - Calculus of ureter Category: Medical (6) Hydronephrosis, left: Code(s): N13.30 - Unspecified hydronephrosis Category: Medical (7) Left flank pain: Code(s): R10.9 - Unspecified abdominal pain Category: Medical Plan Ct KUB, 24 hr urine Orders: Orders CT kidney stone Today N13.30 - Unspecified hydronephrosis, N20.0 - Calculus of kidney, R10.9 - Unspecified abdominal pain Patient Instructions: The patient had an opportunity to ask questions regarding treatment plan. The patient expressed understanding and agreement with the above treatment plan. The patient is aware they should contact our office by phone for worsening of their current condition or the appearance of new symptoms. Compliance is encouraged with any medications and followup testing that is ordered. It is a privilege to be allowed the opportunity to participate in the urologic care of your patient. If you have any questions or concerns regarding treatment for the above conditions please do not hesitate to contact me. The office telephone contact is [phone]. This note is constructed in part using voice recognition software. While every effort has been made to ensure accuracy enterprise business architect errors may have been included. Yours sincerely, Ricardo Lepe MD Coding Level of Care Code Est Pt Level 4 (06605) Complex EM visit Add On G2211 Diagnoses Morbid obesity E66.01 Hypercalciuria R82.994 Hyperoxaluria R82.992 Bilateral kidney stones N20.0 Left ureteral calculus N20.1 Hydronephrosis, left N13.30 Left flank pain R10.9
--- OUTSIDE RECORDS SUMMARY | 2024-12-13 15:36 | XMS_ITS | Encounter Summary ---
Author Organization [employer] Address [address] [facility] [address] [place] [address] Care Team Providers Care Radiology Administrator Name Role Phone Carmen Bertrand DO Primary Care Provider + [phone] Reason for Visit * Reason Comments Med Refill Encounter Details Date Type Department Care Team ([facility] Contact Info) Description 10/18/2022 Refill [facility] MEDICINE [address] [place] [address] Carmen Bertrand DO [address] [place] [address] Social History Tobacco Use Types Packs/Day Years [...] Upcoming Encounters Date Type Department Care Team ([facility] Contact Info) Description 01/24/2025 1:00 PM EDT Clinical Support [facility] MEDICINE [address] [place] [address] 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 RN documented as of this encounter Visit Diagnoses Not on filedocumented in this encounter Additional Health Concerns Assessment Noted Time PHQ-9 Depression Total Score: 16 023 12:22 PM EST documented as of this encounter Care Teams Radiology Administrator Relationship Specialty Start Date End Date Carmen Bertrand DO [address] [place] [address] PCP - General Family Medicine 08/18/18 documented as of this encounter
--- OUTSIDE RECORDS SUMMARY | 2024-12-13 15:36 | XMS_ITS | Encounter Summary ---
Author Organization [employer] Address [address] [place] [address] Care Team Providers Care Sap Administrator Name Role Phone Carmen Bertrand DO Primary Care Provider + [phone] Reason for Visit * Reason Comments Med Refill Encounter Details Date Type Department Care Team ([facility] st Contact Info) Description 07/22/2023 Refill [facility] [address] [place], [place] [id number] Carmen Bertrand DO [address] [facility] [place] [address] Hyperlipidemia, unspecified hyperlipidemia type Social History Tobacco [...] Description 01/24/2025 1:00 PM EDT Clinical Support [facility] [address] [place] [id number] 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 RN documented as of this encounter Visit Diagnoses Diagnosis Hyperlipidemia, unspecified hyperlipidemia type documented in this encounter Additional Health Concerns Assessment Noted Time PHQ-9 Depression Total Score: 21 023 11:26 AM EST documented as of this encounter Care Teams Sap Administrator Relationship Specialty Start Date End Date Carmen Bertrand DO [address] [place] [address] PCP - General Family Medicine 08/18/18 documented as of this encounter
--- OUTSIDE RECORDS SUMMARY | 2024-12-13 15:36 | XMS_ITS | Encounter Summary ---
Author Organization [employer] [facility] Address [address] [place] [address] [address] [place] [address] Care Team Providers Care Pedicurist Name Role Phone Carmen Bertrand DO Primary Care Provider [phone] Reason for Visit * Reason Comments Med Refill Encounter Details Date Type Department Care Team (Late st Contact Info) Description 07/29/2022 Refill [facility] MED[facility]INE [address] [place] [phone] Carmen Bertrand DO [address] [place] [address] Social History Tobacco Use Types Packs/Day Years [...] 01/24/2025 1:00 PM EDT Clinical Support [facility] [address] [place] [phone] 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 RN documented as of this encounter Visit Diagnoses Not on filedocumented in this encounter Care Teams Pedicurist Relationship Specialty Start Date End Date Carmen Bertrand DO [address] [place] [id number] PCP - General Family Medicine 08/18/18 documented as of this encounter
--- OUTSIDE RECORDS SUMMARY | 2024-12-13 15:36 | XMS_ITS | Encounter Summary ---
Author Organization [employer] Address [address] [place] [address] [address] [place] [address] Care Team Providers Care Car Shifter Name Role Phone Carmen Bertrand DO Primary Care Provider [phone] Encounter Details Date Type Department Care Team (Late st Contact Info) Description 09/09/2022 Orders Only [facility]EDS [address] [place] [address] Carmen Perez LPN Social History Tobacco Use [...] 01/24/2025 1:00 PM EDT Clinical Support [facility] [address] [place] [address] 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, RN documented as of this encounter Visit Diagnoses Not on filedocumented in this encounter Care Teams Car Shifter Relationship Specialty Start Date End Date Carmen Bertrand DO [address] [place] [address] PCP - General Family Medicine 08/18/18 documented as of this encounter
--- OUTSIDE RECORDS SUMMARY | 2024-12-13 15:36 | XMS_ITS | Clinical Summary ---
Author Organization [employer] Address [address] [facility] [address] [place] [address] Care Team Providers Care Superintendent Drilling Name Role Phone EdilsonCarmen dixon Primary Care Provider [phone] Allergies Active Allergy Reactions Criticality Noted Date [...] 2025 Active ergocalciferol (Vitamin D2) 1.25 MG (91679 UT) capsule Take 1 capsule (1.25 mg) [...] Type Department Care Team Description 12/07/2024 Refill [facility] MED & PEDS [address] [place] [address] Carmen Bertrand DO Chronic low back pain, unspecified back pain laterality, unspecified whether sciatica present 12/05/2024 Refill [facility] MEDICINE [address] [place] [address] Carmen Bertrand DO 12/05/2024 Refill [facility] MEDICINE [address] [place] [address] Irina Talley MD Melasma 12/03/2024 Refill [facility] MEDICINE [address] [place] [address] Alexandra Lisa MD Acanthosis nigricans 12/01/2024 Telephone [facility] MEDICINE [address] [place] [address] Lisa Rios, RULA Care Coordination 11/30/2024 9:15 AM EDT Office Visit [facility] MEDICINE [address] [place] [address] Carmen Bertrand DO Coronary artery disease involving platinum coronary artery of platinum heart, unspecified whether angina present (Primary Dx) 11/30/2024 Travel 11/19/2024 Refill [facility] [address] [place] [address] Carmen Bertrand DO 11/12/2024 Patient Outreach [facility] [address] [place] [address] Carmen Bertrand DO Transition Of Care (Tcm) (HDF scheduled. ) 11/12/2024 Telephone [facility] MEDICINE [address] [place] [address] Carmen Bertrand DO Hospital Follow-up 11/07/2024 Orders Only GENERIC EXTERNAL DATA DEPARTMENT Provider, Generic External Data 11/05/2024 Refill [facility] MEDICINE [address] [place] [address] Carmen Bertrand DO On pre-exposure prophylaxis for HIV 11/04/2024 Refill [facility] [address] [place], [place] [phone] Carmen Bertrand DO Chronic low back pain, unspecified back pain laterality, unspecified whether sciatica present 11/01/2024 Telephone [facility] MEDICINE [address] [place] [address] Carmen Bertrand DO telephone call 10/21/2024 1:30 PM EST Clinical Support [facility] MEDICINE [address] [place] [address] 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, barrel driller bilateral low back pain without sciatica (Primary Dx) 10/21/2024 Travel 10/20/2024 2:30 PM EST Office Visit [facility] OPTOMETRY [address] [place] [address] Lewis, Tova, OD Presbyopia (Primary Dx); Cup to disc asymmetry, left 10/20/2024 Travel 10/11/2024 Refill [facility] MEDICINE [address] [place] [address] Carmen Bertrand DO Hypertension, unspecified type 10/06/[address] [address] Carmen Bertrand DO Prior Authorization 10/06/2024 Refill [facility] [address] [place] [address] Ирина Mckeon MD Nonintractable headache, unspecified chronicity pattern, unspecified headache type 10/05/2024 Refill [facility] [address] [place] [address] Carmen Bertrand DO Chronic low back pain, unspecified back pain laterality, unspecified whether sciatica present 10/05/[address] [address] Carmen Bertrand DO Nurse Triage 10/05/[address] [address] Carmen Bertrand DO Mild persistent asthma without complication; Melasma 10/01/2024 Refill [facility] MEDICINE [address] [place] [address] Carmen Bertrand DO 09/30/2024 Orders Only GENERIC EXTERNAL DATA DEPARTMENT Provider, Generic External Data 09/29/2024 Orders Only GENERIC EXTERNAL DATA DEPARTMENT Provider, Generic External Data 09/27/2024 11:45 AM EST Office Visit [address] [address] Carmen Bertrand DO Positive colorectal cancer screening using Cologuard test (Primary Dx) 09/27/2024 Travel 09/21/[address] [address] Trista Alford, RN Results 09/17/2024 Orders Only GENERIC EXTERNAL DATA DEPARTMENT Provider, Generic External Data 09/17/2024 Refill [facility] [address] [place] [address] Carmen Bertrand DO 09/15/[address] [address] Carmen Bertrand DO Appointment Request from Last [...] Description 01/24/2025 1:00 PM EDT Clinical Support [address] [address] 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, RN Health Maintenance Due Date [...] of left foot Healthcare maintenance HIV ANTIBODY/ANTIGEN ([place] DP) Routine 02/21/2023 2:35 PM EDT from Last 3 Months or Most Recently Relevant to Health Maintenance Results * NM heart perfusion SPECT stress and rest (11/08/2024 9:19 AM EDT) Anatomical Region Laterality Modality Body Nuclear Medicine 11/08/2024 9:19 AM EDT Narrative 11/09/2024 12:33 PM EDT ? [facility] [facility] ?[address] ?[place] [address] ?Nuclear Medicine Report ? Signed ? Patient: Maria Luisa Jean,Blaire ?MR#: M ?? [id number] ? : 1975 ?Acct:[id number] ? Age/Sex: 49 / F ?ADM Date: 11/07/24 ? Loc: HO.IMC ?475-1 ? Attending Dr: Gregg Chavez MD ? Ordering Physician: Mars Hutchinson MD ?? Date of Service: 11/08/24 ?? Procedure(s): NM andrew perf SPECT rest ?? str ?? Accession Number(s): [id number] ? cc: Carmen Bertrand DO; Mars Hutchinson [...] DD/ 0919 ? TD/TT: 11/09/24 0955 ? Construction Specialist: ? Procedure Note Donclintonter, Image - 11/09/2024 [place] [address] Nuclear Medicine Report Signed Patient: Christianne Quiroz#: M [id number] : 1975Acct:[id number] Age/Sex: 49 / FADM Date: 11/07/24 Loc: [facility] 475-[address]: Gregg Chavez MD Ordering Physician: Mars Hutchinson MD Date of Service: 11/08/24 Procedure(s): NM andrew perf SPECT rest str Accession Number(s): [id number] cc: Carmen Bertrand DO; Mars Hutchinson MD [...] 11/09/24 1231 DD/ 0919 TD/TT: 11/09/24 0955 Construction Specialist: [facility] External Provider IMG NM PROCEDURES Edited Result - Final * (ABNORMAL) High Sensitivity Troponin I (11/07/2024 7:34 PM EDT) Only the most recent of4 resultswithin the time period is included. TROPONIN I HIGH SENSITIVITY 85.7(HH) <3.5 - 17.0 ng/L [facility] Comment:Critical value for t est(s): HS-TNI Results called to rickie back by:ROSANNE Person calling:ALKAAB Date: 11/07/2024Time:20:02.The [employer] high sensitivity Troponin-I results should beused in conjunction with other diagnostic information suchas ECG, clinical observations and information, and patientsymptoms to aid in the diagnosis of DE. 11/07/2024 7:34 PM EDT 11/07/2024 7:37 PM EDT Generic External Data Provider LAB BLOOD ORDERAB LES Final Result Performing Organization Address [facility] de Phone Number [facility] [address] [place] [phone] * (ABNORMAL) Partial Thromboplastin Time, Activated (APTT) (11/07/2024 7:34 PM EDT) Partial Thromboplastin Time 36.9(H) 26.0 - 36.8 SEC [facility] Comment:For information rega rding the monitoring of direct thrombininhibitors, please refer to Pharmacy. 11/07/2024 7:34 PM EDT 11/07/2024 7:37 PM EDT Generic External Data Provider LAB BLOOD ORDERAB LES Final Result Performing Organization Address [facility] de Phone Number [facility] [address] [place] [phone] * CT Abdomen Pelvis w/o Contrast (11/07/2024 7:25 PM EDT) Anatomical Region Laterality Modality Body, Pelvis, Abdomen Computed T omography 11/07/2024 7:25 PM EDT Narrative 11/07/2024 7:26 PM EDT ? [facility] ?[address] ?[place] [address] ? [address] Scan Report ? Signed ? Patient: Fermin Quirozssica ?MR#: M ?? [id number] ? : 1975 ?Acct:[id number] ? Age/Sex: 49 / F ?ADM Date: 03/23/25 ? Loc: HO.ED ? Attending Dr: ? Ordering Physician: Marco Lugo MD ?? Date of Service: 11/07/24 ?? Procedure(s): CT abdomen pelvis wo IV con ?? Accession Number(s): [id number] ? cc: Carmen Bertrand DO; Marco Lugo MD ? Report Number: ?? [id number]: Total DLP = 1392.00 mGy-cm ? CLINICAL HISTORY: left flank pain ? CT abdomen and pelvis without contrast ? Comparison: DX - XR HIP RT MIN 2V - 09/17/24 11:03 EST ?? US/SR - US ABDOMEN COMPLETE - 05/07/24 09:08 EDT ?? CT/AR/SR - CT ABDOMEN PELVIS WO IV CON [...] ? DD/ 24 ? TD/TT: 11/07/241924 ? Construction Specialist: ? Procedure Note Dawna Lora - 11/07/[address] [address] [address] Scan Report Signed Patient: Blaire Quiroz#: M [id number] : 1975Acct:[id number] Age/Sex: 49 / FADM Date: 11/07/24 Loc: HO.ED Attending Dr: Ordering Physician: Marco Lugo MD Date of Service: 11/07/24 Procedure(s): CT abdomen pelvis wo IV con Accession Number(s): [id number] cc: Carmen Bertrand DO; Marco Lugo MD Report Number: [id number]: Total DLP = 1392.00 mGy-cm CLINICAL HISTORY: left flank pain CT abdomen and pelvis without contrast Comparison: DX - XR HIP RT MIN 2V - 09/17/24 11:03 EST US/SR - US ABDOMEN COMPLETE - 05/07/24 09:[address]/AR/SR - CT ABDOMEN PELVIS WO IV CON [...] in OV> 11/07/241924 DD/ 24 TD/TT: 11/07/241924 Construction Specialist: [facility] External Provider IMG CT PROCEDURES Edited Result - Final * XR Chest 1 View (11/07/2024 6:43 PM EDT) Anatomical Region Laterality Modality Chest Radiographic Alejandrina ging 11/07/2024 6:43 PM EDT Narrative 11/07/2024 6:45 PM EDT ? [facility] ?[address] ?[place] [address] ?XRay Report ? Signed ? Patient: Maria Luisa Jean,Blaire ?MR#: M ?? [id number] ? : 1975 ?Acct:[id number] ? Age/Sex: 49 / F ?ADM Date: 11/07/24 ? Loc: HO.ED ? Attending Dr: ? Ordering Physician: Marco Lugo MD ?? Date of Service: 11/07/24 ?? Procedure(s): XR chest 1V ?? Accession Number(s): [id number] ? cc: Carmen Bertrand DO; Marco Lugo MD ? CLINICAL HISTORY: Chest pain ? 1 view chest x-ray ? Comparison: CR/AR/SR - XR CHEST 1V - 11/11/23 18:01 [...] ? DD/ 42 ? TD/TT: 11/07/241842 ? Construction Specialist: ? Procedure Note Kailashbeatricewalternery, Image - 11/07/2024 [place] [address] XRay Report Signed Patient: Blaire Quiroz#: M [id number] : 1975Acct:[id number] Age/Sex: 49 / FADM Date: 11/07/24 Loc: HO.ED Attending Dr: Ordering Physician: Marco Lugo MD Date of Service: 11/07/24 Procedure(s): XR chest 1V Accession Number(s): [id number] cc: Carmen Bertrand DO; Marco Lugo MD CLINICAL HISTORY: Chest pain 1 view chest x-ray Comparison: CR/AR/SR - XR CHEST 1V - 3/26/24 18:01 EDT Findings: No consolidation or effusion. Heart size is normal. No acute fracture. IMPRESSION: 1. No acute findings. This document has been electronically signed by: Mahad Pearl MD on 11/07/2024 18:43:58 Dictated By: Mahad Pearl MD Signed By: <Electronically signed by Mahad Pearl MD in OV> 11/07/241843 DD/ 42 TD/TT: 11/07/241842 Construction Specialist: [facility] External Provider IMG XR PROCEDURES Edited Result - Final * (ABNORMAL) CBC auto differential (11/07/2024 4:29 PM EDT) Only the most recent of2 resultswithin the time period is included. White Blood Count 11.1(H) 4.8 - 10.8 X10*3/uL [facility] Red Blood Count 4.18(L) 4.20 - 5.50 X10*6/uL [facility] Hemoglobin 12.9 12.0 - 16.0 g/dl [facility] Hematocrit 38.3 37.0 - 47.0 % [facility] Mean Corpuscular Volume 91.6 80.0 - 98.0 fL [facility] Mean Corpuscular Hemoglobin 30.9 27.0 - 33.0 pg [facility] Mean Corpuscular HGB Conc 33.7 31.0 - 35.0 g/dl [facility] Red Cell Distribution Width 14.2 11.0 - 16.0 % [facility] Platelet Count 326 160 - 400 X10*3/uL [facility] Mean Platelet Volume 9.2(L) 9.4 - 12.3 fL [facility] Neutrophils Percent Auto 50.5 45 - 73 % [facility] Imm Gran Pct Auto 0.5(H) 0.0 - 0.4 % [facility] Lymphocytes Percent Auto 36.9 20 - 40 % [facility] Monocytes Percent Auto 7.9 2 - 11 % [facility] Eosinophils Percent Auto 3.7 0 - 4 % [facility] Basophils Percent Auto 0.5 0 - 2 % [facility] NRBC Pct Auto 0.0 0.0 - 0.2 /100WBC [facility] Neutrophils Absolute Auto 5.6 2.0 - 8.3 x10*3/uL [facility] Imm Gran Abs Auto 0.05(H) 0.00 - 0.03 X10*3/uL [facility] Lymphocytes Absolute Auto 4.1 1.2 - 4.9 X10*3/uL [facility] Monocytes Absolute Auto 0.9 0.1 - 1.2 X10*3/uL [facility] Eosinophils Absolute Auto 0.4 0.0 - 0.4 X10*3/uL [facility] Basophils Absolute Auto 0.1 0.0 - 0.2 X10*3/uL [facility] NRBC Abs Auto 0.000 0.0 - 0.012 X10*3/uL [facility] 11/07/2024 4:29 PM EDT 11/07/2024 4:33 PM EDT us Generic External Data Provider LAB BLOOD ORDERAB LES Final Result Performing Organization Address City/[facility]/ZIP Co de Phone Number [facility] [address] [place] [phone] * Magnesium (11/07/2024 4:29 PM EDT) Only the most recent of2 resultswithin the time period is included. Magnesium 1.7 1.6 - 2.6 mg/dL [facility] 11/07/2024 4:29 PM EDT 11/07/2024 4:33 PM EDT us Generic External Data Provider LAB BLOOD ORDERAB LES Final Result Performing Organization Address City/[facility]/ZIP Co de Phone Number [facility] [address] [place] [phone] * Lipase (11/07/2024 4:29 PM EDT) Lipase 11 8 - 78 U/L [facility] 11/07/2024 4:29 PM EDT 11/07/2024 4:33 PM EDT us Generic External Data Provider LAB BLOOD ORDERAB LES Final Result [facility] [address] [place], [place] [phone] * (ABNORMAL) Comprehensive Metabolic Panel (11/07/2024 4:29 PM EDT) Sodium 141 135 - 145 mmol/L [facility] Potassium 3.9 3.3 - 5.1 mmol/L [facility] Chloride 110(H) 96 - 108 mmol/L [facility] Carbon Dioxide 25 22 - 29 mmol/L [facility] Anion Gap 10(L) 12 - 20 [facility] Urea Nitrogen (BUN) 12 9 - 16 mg/dL [facility] Creatinine, Serum 0.96 0.5 - 1.4 mg/dL [facility] Creatinine Clr Calc Pharmacy 115.0 [facility] Comment:Provided height and weight: 167.64 cm,165.3 kg.eGFR (calculated from the MDRD study equation) and eCrCl(calculated from the Cockcroft-Gault equation) are based ondifferent parameters and may not yield comparable results.If eCrCl result is absurd, please check patient'sheight/weight. Estimated Glomerular Filt Rate >60 [facility] Comment:Chronic Kidney Disea se: Estimated GFR < 60 mL/min/1.52m7Ubvzva Kidney Disease: Estimated GFR < 15 mL/min/1.73m2 Glucose 97 60 - 115 mg/dL [facility] Calcium 9.2 8.4 - 10.2 mg/dL [facility] Bilirubin, Total 0.2 0.0 - 1.0 mg/dL [facility] Aspartate Amino Transferase 23 5 - 31 U/L [facility] Alanine Aminotransferase 13 0 - 31 U/L [facility] Total Protein 7.6 6.5 - 8.0 g/dL [facility] Albumin Level 3.4(L) 3.5 - 5.0 g/dL [facility] Alkaline Phosphatase 98 39 - 117 U/L [facility] 11/07/2024 4:29 PM EDT 11/07/2024 4:33 PM EDT us Generic External Data Provider LAB BLOOD ORDERAB LES Final Result [facility] [address] [place] [phone] [phone] * POCT ANALISA-14 Urine Drug Screen (10/21/2024 2:02 PM EST) Urine Urine specimen obtained by clean catch procedure / Unknown 10/21/2024 2:02 PM EST Jessica Perez RN - 10/21/2024 2:02 PM EST UTOX cup Lot#[id number] Exp. 04/06/26 Internal Pass Control UTOX Negative [...] PM EST) Influenza A PCR NEGATIVE Negative [facility] Influenza B PCR NEGATIVE Negative [facility] Resp Syncy Virus RNA Qual PCR NEGATIVE Negative [facility] SARS COV2 PCR NEGATIVE Negative [facility] Comment:All test results mus t [...] use by authorized laboratories.Testing performed on the [employer] GeneXpert utilizingreal-time RT-PCR.All SARS CoV2 and positive influenza A/B results arereported to [facility]. 09/29/2024 3:25 PM EST 09/29/2024 3:28 PM EST us Generic External Data Provider LAB MICROBIOLOGY - GENERAL ORDERABLES Final Result [facility] [address] [place] [phone] * Prothrombin Time-INR (09/29/2024 3:25 PM EST) Prothrombin Time 11.4 10.9 - 12.4 SEC [facility] INTERNATIONAL NORM RATIO 1.0 0.9 - 1.1 [facility] Comment:INTERNATIONAL NORMAL IZED RATIO (INR) [...] ORDERAB LES Final Result Performing Organization Address [facility] Phone Number [facility] [address] [place] [phone] * B Type Natriuretic Peptide (BNP) (09/29/2024 3:25 PM EST) [facility] B Type Natriuretic Peptide 45 <100 pg/mL [facility] Comment:For those patients w ho are being treated with Natrecor(nesiritide, recombinant BNP), BNP testing should beperformed at least two hours post treatment in order toensure that only endogenous levels of BNP are detected. 09/29/2024 3:25 PM EST 09/29/2024 3:28 PM EST [employer] External Data Provider LAB BLOOD ORDERAB LES Final Result Performing Organization Address [facility] Number [facility] [address] [place] [phone] * Hepatic Function Panel (09/29/2024 3:25 PM EST) [facility] Bilirubin, Total 0.5 0.0 - 1.0 mg/dL [facility] Bilirubin, Direct 0.2 0.0 - 0.5 mg/dL [facility] Aspartate Amino Transferase 22 5 - 31 U/L [facility] Alanine Aminotransferase 21 0 - 31 U/L [facility] Total Protein 7.8 6.5 - 8.0 g/dL [facility] Albumin Level 3.6 3.5 - 5.0 g/dL [facility] Alkaline Phosphatase 94 39 - 117 U/L [facility] 09/29/2024 3:25 PM EST 09/29/2024 3:28 PM EST us Generic External Data Provider LAB BLOOD ORDERAB LES Final Result Performing Organization Address City/[facility]/ZIP Co de Phone Number [facility] [address] [place] [phone] * Basic Metabolic Panel (09/29/2024 3:25 PM EST) Sodium 140 135 - 145 mmol/L [facility] Potassium 4.6 3.3 - 5.1 mmol/L [facility] Chloride 108 96 - 108 mmol/L [facility] Carbon Dioxide 25 22 - 29 mmol/L [facility] Anion Gap 12 12 - 20 [facility] Urea Nitrogen (BUN) 12 9 - 16 mg/dL [facility] Creatinine, Serum 0.82 0.5 - 1.4 mg/dL [facility] Creatinine Clr Calc Pharmacy 139.5 [facility] Comment:Provided height and weight: 175.26 cm,164.1 kg.eGFR (calculated from the MDRD study equation) and eCrCl(calculated from the Cockcroft-Gault equation) are based ondifferent parameters and may not yield comparable results.If eCrCl result is absurd, please check patient'sheight/weight. Estimated Glomerular Filt Rate >60 [facility] Comment:Chronic Kidney Disea se: Estimated GFR < 60 mL/min/1.52b0Vyklbi Kidney Disease: Estimated GFR < 15 mL/min/1.73m2 Glucose 97 60 - 115 mg/dL [facility] Calcium 9.6 8.4 - 10.2 mg/dL [facility] 09/29/2024 3:25 PM EST 09/29/2024 3:28 PM EST us Generic External Data Provider LAB BLOOD ORDERAB LES Final Result Performing Organization Address City/[facility]/ZIP Co de Phone Number [facility] [address] [facility] [place] [phone] * XR Hip 2 or 3 Views Right (09/17/2024 5:59 PM EST) Anatomical Region Laterality Modality Lower Extremities, Hip Right Radiograp hic Imaging 09/17/2024 5:59 PM EST Narrative 09/17/2024 6:00 PM EST ? [facility] ? [address] ?[place] [address] ?XRay Report ? Signed ? Patient: Blaire Quiroz ?MR#: M ?? [id number] ? : 1975 ?Acct:[id number] ? Age/Sex: 49 / F ?ADM Date: 09/17/24 ? Loc: HO.HOSX ? Attending Dr: Heather Uriarte MD ? Ordering Physician: Heather Aviles ?? Date of Service: 09/17/24 ?? Procedure(s): XR hip RT min 2V ?? Accession Number(s): [id number] ? cc: Carmen Bertrand DO; Heather Aviles [...] DD/ 1759 ? TD/TT: 09/17/24 1759 ? Construction Specialist: ? Procedure Note Geno, Image - 09/17/2024 [facility] [address] [place] [address] [address] [place] [address] XRay Report Signed Patient: Blaire Quiroz#: M [id number] : 1975Acct:[id number] Age/Sex: 49 / FADM Date: 09/17/24 Loc: GIAN Attending Dr: Heather Uriarte MD Ordering Physician: Heather Aviles Date of Service: 09/17/24 Procedure(s): XR hip RT min 2V Accession Number(s): [id number] cc: Carmen Bertrand DO; Heather Aviles CLINICAL [...] OV> 09/17/24 1800 DD/ 58 TD/TT: 09/17/241758 Construction Specialist: [facility] External Provider IMG XR PROCEDURES Final Result * XR Sacroiliac Joints 1-2 Views (09/17/2024 5:59 PM EST) Anatomical Region Laterality Modality Sacroiliac joint, Pelvis Radiogr aphic Imaging 09/17/2024 5:59 PM EST Narrative 09/17/2024 6:00 PM EST ? [facility] ? [address] ?[place] [address] ?XRay Report ? Signed ? Patient: Maria Luisa LiurahulBlaire ?MR#: M ?? [id number] ? : 1975 ?Acct:[id number] ? Age/Sex: 49 / F ?ADM Date: 09/17/24 ? Loc: HO.HOSX ? Attending : Heather Uriarte MD ? Ordering Physician: Heather Aviles ?? Date of Service: 09/17/24 ?? Procedure(s): XR sacroiliac joint 1-2V ?? Accession Number(s): [id number] ? cc: Carmen Bertrand DO; Heather Aviles [...] ? DD/ 1759 ? TD/TT: 09/17/241758 ? Construction Specialist: ? Procedure Note Donclintonter, Image - 09/17/2024 [facility] [address] [place] [address] Drive [address] [place] [address] XRay Report Signed Patient: Blaire QuirozMR#: M [id number] : 1975Acct:[id number] Age/Sex: 49 / FADM Date: 09/17/24 Loc: [facility]ANK[facility]ILLIP Attending Dr: Heather Uriarte MD Ordering Physician: Heather Aviles Date of Service: 09/17/24 Procedure(s): XR sacroiliac joint 1-2V Accession Number(s): [id number] cc: Carmen Bertrand DO; Heather Aviles CLINICAL [...] OV> 09/17/24 1800 DD/ 58 TD/TT: 09/17/241758 Construction Specialist: us [facility] External Provider IMG XR PROCEDURES Final Result * (ABNORMAL) Rheumatoid Factor (09/17/2024 11:45 AM EST) Rheumatoid Factor 28.2(H) <15.0 IU/mL [facility] 09/17/2024 11:4 5 AM EST 09/17/2024 11:45 AM EST us Generic External Data Provider LAB BLOOD ORDERAB LES Final Result [facility] [address] [place] [phone] * (ABNORMAL) REBECCA Screen,IFA, with Reflex to Titer and Pattern (09/17/2024 11:45 AM EST) Anti Nuclear Antibody Screen POSITIVE (A) NEGATIVE [facility] Comment:REBECCA IFA is a first l ine screen for detecting thepresence of up to approximately 150 autoantibodies invarious autoimmune diseases. A positive REBECCA IFA resultis suggestive of autoimmune disease and reflexes totiter and pattern. Further laboratory testing may beconsidered if clinically indicated.For additional information, please refer tohttp://education.Applika/faq/LSZ478(This link is being provided for informational/educational purposes only.) ERBECCA Titer 1:40(A) titer [facility] Comment:A low level REBECCA tite r may be present in pre-clinicalautoimmune diseases and normal individuals. Reference Range <1:40 Negative 1:40-1:80 Low Antibody Level >1:80 Elevated Antibody Level REBECCA Pattern Nuclear, Speckled (A) [facility] Comment:Speckled pattern is associated with mixed connectivetissue disease (MCTD), systemic lupus erythematosus(SLE), Sjogren's syndrome, dermatomyositis, andsystemic sclerosis/polymyositis overlap.AC-2,4,5,29: SpeckledInternational Consensus on REBECCA Patterns(https://doi.org/10.1515/nyez-[email or web address])THIS TEST WAS PERFORMED AT:[facility] [place] [phone] HINTON MD REBECCA TITER 2 (REF LAB) [facility] REBECCA Pattern 2 [facility] REBECCA TITER 3 [facility] REBECCA PATTERN 3 [facility] 09/17/2024 11:4 5 AM EST 09/17/2024 11:45 AM EST us Generic External Data Provider LAB BLOOD ORDERAB LES Final Result [facility] [address], [place] [phone] * (ABNORMAL) Cologuard?? colon cancer screening (08/31/2024 10:33 AM EST) Cologuard Result Positive( A) Negative 09/07/2024 10:16 AM EST [facility] (CLIA #:[id number]) Comment: POSITIVE TEST RESULT. A positive Cologuard [...] (Ashleigh Zhou al, N Engl J Med 2014;370(14):8644-1481.) Cologuard may produce a false negative or false positive result (no colorectal cancer or precancerous polyp present at colonoscopy follow up). A negative Cologuard test result does not guarantee the absence of CRC or advanced adenoma (pre-cancer). The current Cologuard screening interval is every 3 years. ([place] [employer] Society and U.S. Multi-Society Task Force). Cologuard performance data in a 10,000 patient pivotal study using colonoscopy as the reference method can be accessed at the following location: www.Buyoo.Good4U/results. Additional description of the Cologuard test process, warnings and precautions can be found at www.cologDataiumrd.com. Stool specimen (specimen) 08/31/2024 10:33 AM EST 09/01/2024 11:06 AM EST Carmen Bertrand DO LAB MOLECULAR DIAGNOSTICS OR DERABLES Final Result Performing Organization Address City/[facility]/ZIP Co de Phone Number [facility] (CLIA #:[id number]) [place] [address], [place] [phone] * Hemoglobin A1c (08/24/2024 11:57 AM EST) Hemoglobin A1c 6.0 <6.0 % [facility] Comment:Hemoglobin A1C Refer ence Range Adults: 4.8 - 6.0 % Non diabetic: < 6.0 % Goal: < 7.0 %Additional Action Suggested: > 8.0 %Note: Hemoglobin A1c results are invalid for patients with abnormal amounts of HbF. Blood transfusions may impact the HbA1c concentration in the patient sample. Estimated Average Glucose 126 mg/dL [facility] Comment:eAG = Estimated ave rage glucose which is %A1C expressed asaverage glucose, using the formula of the U9H-TdntfznOdmekuw Glucose study (ADAG), Diabetes Care, Vol.31,#8,Aug. 2007 Blood Venous blood specimen / Unknown 08/24/2024 11:57 AM EST 08/24/2024 1:03 PM EST Carmen Bertrand Lumenis LAB BLOOD ORDERABLES Final R esult Performing Organization Address City/[facility]/ZIP Co de Phone Number [facility] [address] [place] [phone] * (ABNORMAL) Lipid Panel, Standard (08/24/2024 11:57 AM EST) Triglycerides 82 <150 mg/dL [facility] Comment:Desirable Triglyceri de: less than 150 mg/dLBorderline High Triglyceride 150-199 mg/dLHigh Triglyceride: 200-499 mg/dLVery High Triglyceride: greater than or equal to 5OO mg/dL Cholesterol 136 <200 mg/dL [facility] Comment:Desirable Cholestero l: less than 200 mg/dLBorderline High Cholesterol: 200-239 mg/dLHigh Cholesterol: greater than 239 mg/dL LDL Cholesterol Calculated 81 <100 mg/dL [facility] Comment:Desirable LDL: less than 100 mg/dLNear Optimal/Above Optimal LDL: 110- 129 mg/dLBorderline High LDL: 130-159 mg/dLHigh LDL: 160-189 mg/dLVery High LDL: greater than or equal to 190 mg/dL HDL Cholesterol 39(L) >40 mg/dL [facility] Comment:Desirable HDL: great er than 40 mg/dL Note: This HDL assay may give artificially low results in patients with liver disease. Blood Venous blood specimen / Unknown 08/24/2024 11:57 AM EST 08/24/2024 1:03 PM EST us Carmen Bertrand DO LAB BLOOD ORDERABLES Final R esult [facility] [address] [place] [phone] * BI US Breast Limited Bilateral (06/02/2024 2:00 PM EDT) Anatomical Region Laterality Modality Breast Bilateral Ultrasound 06/02/2024 2:00 PM EDT Narrative 06/03/2024 8:44 AM EDT ? [facility] ? [address] ?[place] [address] ? Ultrasound Report ? Signed ? Patient: Maria Luisa Jean,Blaire ?MR#: [id number] ?? [id number] ? : 1975 ?Acct:[id number] ? Age/Sex: 49 / F ?ADM Date: 10/16/24 ? Loc: HO.MAMMO ? Attending Dr: Carmen Bertrand DO ? Ordering Physician: Carmen Bertrand DO ?? Date of Service: 06/02/24 ?? Procedure(s): US breast BI limited mamm only ?? Accession Number(s): [id number] ? cc: Carmen Bertrand DO ? EXAMINATION: [...] ??06/03/2024 08:41 AM EDT RP ?? Workstation: [id number] ? Dictated By: ?Shamir Olmedo MD ? Signed By: ?<Electronically signed by Shamir Olmedo MD in OV> ?06/03/24 0841 ? DD/ 1400 ? TD/TT: 06/02/24 1454 ? Construction Specialist: ? Procedure Note Dawna Lora - 06/03/2024 [facility] [address] [place] [address] Ultrasound Report Signed Patient: Blaire Quiroz#: M [id number] : 1975Acct:[id number] Age/Sex: 49 / FADM Date: 06/02/24 Loc: HO.MAMMO Attending Dr: Carmen Bertrand DO Ordering Physician: Carmen Bertrand DO Date of Service: 06/02/24 Procedure(s): US breast BI limited mamm only Accession Number(s): [id number] cc: Carmen Bertrand DO EXAMINATION: US DIAGNOSTIC [...] 06/03/24 0841 DD/ 1400 TD/TT: 06/02/24 1454 Construction Specialist: Result [facility] Carmen Bertrand DO IMG US PROCEDURES Final Resu lt * Hepatitis C Antibody with Reflex to HCV, RNA, Quantitative, Real-Time PCR (04/27/2024 2:02 PM EDT) Hepatitis C Antibody Nonreactive Nonreactive [facility] Comment:Antibodies to HCV no t detected; does not exclude early acuteHCV infection. Blood Venous blood specimen / Unknown 04/27/2024 2:02 PM EDT 04/27/2024 4:01 PM EDT Result [facility] Carmen Bertrand DO LAB BLOOD ORDERABLES Final R esult Performing Organization Address [facility]/State/ZIP Co de Phone Number [facility] [address] [place] [phone] * HIV Ab/Ag ([facility]) (02/21/2023 2:35 PM EDT) HIV AB/AG Nonreactive Nonreactive [facility] Comment:HIV-1 p24 Ag and/or HIV-1/HIV-2 Ab not detected.A test result that is nonreactive does not exclude thepossibility of exposure to or infection with HIV-1 and/orHIV-2. Nonreactive results in this assay for individualswith prior exposure to HIV-1 and/or HIV-2 may be due toantigen and antibody levels that are below the limit ofdetection of this assay.[employer] HIV Ag/Ab Combo assay result andsupplemental assay results should be interpreted inconjunction with the patient's clinical presentation,history and other laboratory results. If the results areinconsistent with clinical evidence, additional testing issuggested to confirm the result. 02/21/2023 2:35 PM EDT 02/21/2023 2:37 PM EDT Result [facility] External Provider LAB BLO OD ORDERABLES Final Result [facility] [address] [place] [phone] from Last 3 Months or Most Recently Relevant to Health Maintenance Insurance [employer]ARE < 65 Care Teams Superintendent Drilling Relationship Specialty Start Date End Date Carmen Bertrand DO [address] [place] [address] PCP - General Family Medicine 08/18/18
--- OUTSIDE RECORDS SUMMARY | 2024-12-13 15:36 | XMS_ITS | Encounter Summary ---
Author Organization [employer] Address [address] [facility] 7t [place] [address] Care Team Providers Care Machine Fur Cleaner Name Role Phone Carmen Bertrand DO Primary Care Provider + [phone] Reason for Visit * Reason Comments Med Refill Encounter Details Date Type Department Care Team ([facility] st Contact Info) Description 02/24/2024 Refill [facility] [address] [place] [address] Carmen Bertrand DO [address] [place] [address] Social History Tobacco Use Types Packs/Day Years [...] 01/24/2025 1:00 PM EDT Clinical Support [facility] [address] [place] [address] 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 RN documented as of this encounter Visit Diagnoses Not on filedocumented in this encounter Additional Health Concerns Assessment Noted Time PHQ-9 Depression Total Score: 21 023 11:26 AM EST documented as of this encounter Care Teams Machine Fur Cleaner Relationship Specialty Start Date End Date Carmen Bertrand DO [address] [place] [phone] PCP - General Family Medicine 08/18/18 documented as of this encounter
--- OUTSIDE RECORDS SUMMARY | 2024-12-13 15:36 | XMS_ITS | Encounter Summary ---
Author Organization [employer] Address [address] [facility] 7t [place] [address] Care Team Providers Care Mixer Slagman Name Role Phone Carmen Bertrand DO Primary Care Provider [phone] Reason for Visit * Reason Comments Med Refill Encounter Details Date Type Department Care Team ([facility] st Contact Info) Description 11/20/2022 Refill [facility] MEDICINE [address] [place] [address] Carmen Bertrand DO [address] [place] [address] Morbid obesity with body mass index (BMI) [...] 01/24/2025 1:00 PM EDT Clinical Support [facility] MEDICINE [address] [place] [address] 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, RN documented as of this encounter Visit Diagnoses Diagnosis Morbid obesity with body mass index (BMI) of 50.0 to 59.9 in adult (CMS/HCC) documented in this encounter Additional Health Concerns Assessment Noted Time PHQ-9 Depression Total Score: 16 023 12:22 PM EST documented as of this encounter Care Teams Mixer Slagman Relationship Specialty Start Date End Date Carmen Bertrand DO [address] [place] [address] PCP - General Family Medicine 08/18/18 documented as of this encounter
--- OUTSIDE RECORDS SUMMARY | 2024-12-13 15:36 | XMS_ITS | Encounter Summary ---
Author Organization [employer] Address [address] [facility] [address]t [place] [address] Care Team Providers Care Furnace Brazer Name Role Phone Carmen Bertrand DO Primary Care Provider [phone] Reason for Visit * Reason Onset Date Comments Hospital Follow-up 11/12/2024 Encounter Details Date Type Department Care Team ([facility] Contact Info) Description 11/12/2024 Telephone [facility] MEDICINE [address] [place] [address] Carmen Bertrand DO [address] [place] [address] Hospital Follow-up Social History Tobacco Use Types [...] from pt requesting a HDF appt. Hospital: [facility] Date of admission: 11/07/2024 Discharge date: 11/12/2024 Diagnosed: heart attack *Send message to [place] Clinical Care Coordinators documented in this encounter Plan of Treatment Upcoming Encounters Date Type Department Care Team (Late st Contact Info) Description 01/24/2025 1:00 PM EDT Clinical Support [facility] [address] [place] [address] 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, RULA documented as of this encounter Visit Diagnoses Not on filedocumented in this encounter Additional Health Concerns Assessment Noted Time PHQ-9 Depression Total Score: 22 024 11:00 AM EDT documented as of this encounter Care Teams Furnace Brazer Relationship Specialty Start Date End Date Carmen Bertrand DO [address] [place] [address] PCP - General Family Medicine 08/18/18 documented as of this encounter
--- OUTSIDE RECORDS SUMMARY | 2024-12-13 15:36 | XMS_ITS | Encounter Summary ---
Author Organization [employer] Address [address] [place] [address] 7t [place] [address] Care Team Providers Care Lactation Nurse Name Role Phone Carmen Bertrand DO Primary Care Provider [phone] Encounter Details Date Type Department Care Team (Late st Contact Info) Description 08/13/2022 Orders Only [facility] MED & PEDS [address] [place] [address] Carmen Perez LPN Social History Tobacco Use [...] Description 01/24/2025 1:00 PM EDT Clinical Support [facility] [address] [place] [address] 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, RN documented as of this encounter Visit Diagnoses Not on filedocumented in this encounter Care Teams Lactation Nurse Relationship Specialty Start Date End Date Carmen Bertrand DO [address] [place] [address] PCP - General Family Medicine 08/18/18 documented as of this encounter
--- OUTSIDE RECORDS SUMMARY | 2024-12-13 15:36 | XMS_ITS | Encounter Summary ---
Author Organization [employer] [facility] Address [address] [place] [address] 7t [place] [address] Care Team Providers Care White Washer Piler Name Role Phone Carmen Bertrand DO Primary Care Provider [phone] Encounter Details Date Type Department Care Team (Late st Contact Info) Description 09/09/2022 Orders Only [facility] MEDICINE [address] [place] [address] Azul Albrecht LPN Social History Tobacco Use [...] Description 01/24/2025 1:00 PM EDT Clinical Support [facility] MEDICINE [address] [place] [address] 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, RN documented as of this encounter Visit Diagnoses Not on filedocumented in this encounter Care Teams White Washer Piler Relationship Specialty Start Date End Date Carmen Bertrand DO [address] [place] [address] PCP - General Family Medicine 08/18/18 documented as of this encounter
--- OUTSIDE RECORDS SUMMARY | 2024-12-13 15:36 | XMS_ITS | Encounter Summary ---
Author Organization [employer] Address [address] [facility] 7t [place] [address] Care Team Providers Care Superintendent Container Terminal Name Role Phone RajeevCarmen jones Primary Care Provider + [phone] Reason for Visit * Reason Comments Med Refill Encounter Details Date Type Department Care Team ([facility] st Contact Info) Description 01/13/2024 Refill [facility] MEDICINE [address] [place] [address] Rox Sutton MD [address] [place] [address] Pain Social History Tobacco Use Types Packs/Day [...] Description 01/24/2025 1:00 PM EDT Clinical Support [facility] MEDICINE [address] [place] [address] 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 RN documented as of this encounter Visit Diagnoses Diagnosis Pain Generalized pain documented in this encounter Additional Health Concerns Assessment Noted Time PHQ-9 Depression Total Score: 21 023 11:26 AM EST documented as of this encounter Care Teams Superintendent Container Terminal Relationship Specialty Start Date End Date Carmen Bertrand DO [address] [place] [address] PCP - General Family Medicine 08/18/18 documented as of this encounter
--- OUTSIDE RECORDS SUMMARY | 2024-12-13 15:36 | XMS_ITS | Encounter Summary ---
Author Organization [employer] Address [address] [place] [address] 7t [place] [address] Care Team Providers Care Receiving Barn Custodian Name Role Phone EdilsonCarmen dixon Primary Care Provider + [phone] Reason for Visit * Reason Comments Med Refill Encounter Details Date Type Department Care Team ([facility] Contact Info) Description 02/03/2023 Refill [facility] MEDICINE [address] [place] [address] Leticia Ramirez MD [address] [place] [address] Nonintractable headache, unspecified chronicity pattern, unspecified headache [...] Upcoming Encounters Date Type Department Care Team ([facility] Contact Info) Description 01/24/2025 1:00 PM EDT Clinical Support [facility] MEDICINE [address] [place] [address] 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 RN documented as of this encounter Visit Diagnoses Diagnosis Nonintractable headache, unspecified chronicity pattern, unspecified headache type documented in this encounter Additional Health Concerns Assessment Noted Time PHQ-9 Depression Total Score: 16 023 12:22 PM EST documented as of this encounter Care Teams Receiving Barn Custodian Relationship Specialty Start Date End Date Carmen Bertrand DO [address] [place] [address] PCP - General Family Medicine 08/18/18 documented as of this encounter
--- OUTSIDE RECORDS SUMMARY | 2024-12-13 15:36 | XMS_ITS | Encounter Summary ---
Author Organization [employer] Address [address] [facility] [address] 7t [place] [address] Care Team Providers Care Cap Machine Operator Name Role Phone Carmen Bertrand DO Primary Care Provider + [phone] Reason for Visit * Reason Comments Med Refill Encounter Details Date Type Department Care Team ([facility] st Contact Info) Description 03/16/2024 Refill [facility]S [address] [place], [place] [phone] Carmen Bertrand DO [address] [facility] [place] [address] Chronic low back pain, unspecified back pain [...] Description 01/24/2025 1:00 PM EDT Clinical Support [facility] [address] [place] [address] 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 RN documented as of this encounter Visit Diagnoses Diagnosis Chronic low back pain, unspecified back pain laterality, unspecified whether sciatica present documented in this encounter Additional Health Concerns Assessment Noted Time PHQ-9 Depression Total Score: 21 023 11:26 AM EST documented as of this encounter Care Teams Cap Machine Operator Relationship Specialty Start Date End Date Carmen Bertrand DO [address] [place] [address] PCP - General Family Medicine 08/18/18 documented as of this encounter
--- OUTSIDE RECORDS SUMMARY | 2024-12-13 15:36 | XMS_ITS | Encounter Summary ---
Author Organization [employer] Address [address] 7t [place] [address] Care Team Providers Care Bridge Painter Helper Name Role Phone Carmen Bertrand DO Primary Care Provider + [phone] Reason for Visit * Reason Comments Med Refill Encounter Details Date Type Department Care Team ([facility] st Contact Info) Description 05/12/2024 Refill [facility] CH[facility] MED & PEDS [address] [place], [place] [phone] Carmen Bertrand DO [address] [facility] [place] [address] Chronic low back pain, unspecified back pain [...] Description 01/24/2025 1:00 PM EDT Clinical Support [facility] MEDICINE [address] [place] [address] 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, RULA documented as of this encounter Visit Diagnoses Diagnosis Chronic low back pain, unspecified back pain laterality, unspecified whether sciatica present documented in this encounter Additional Health Concerns Assessment Noted Time PHQ-9 Depression Total Score: 22 024 11:00 AM EDT documented as of this encounter Care Teams Bridge Painter Helper Relationship Specialty Start Date End Date Carmen Bertrand DO [address] [place] [address] PCP - General Family Medicine 08/18/18 documented as of this encounter
--- OUTSIDE RECORDS SUMMARY | 2024-12-13 15:36 | XMS_ITS | Encounter Summary ---
Author Organization [employer] Address [address] [facility] 7t [place] [address] Care Team Providers Care Pin Drafter Name Role Phone RajeevCarmen jones Primary Care Provider + [phone] Reason for Visit * Reason Comments Med Refill Encounter Details Date Type Department Care Team ([facility] st Contact Info) Description 03/08/2024 Refill [facility] MEDICINE [address] [place] [address] Rox Sutton MD [address] [place] [address] Pain Social History Tobacco Use Types Packs/Day [...] Description 01/24/2025 1:00 PM EDT Clinical Support [facility] MEDICINE [address] [place] [address] 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 RN documented as of this encounter Visit Diagnoses Diagnosis Pain Generalized pain documented in this encounter Additional Health Concerns Assessment Noted Time PHQ-9 Depression Total Score: 21 023 11:26 AM EST documented as of this encounter Care Teams Pin Drafter Relationship Specialty Start Date End Date Carmen Bertrand DO [address] [place] [address] PCP - General Family Medicine 08/18/18 documented as of this encounter
--- OUTSIDE RECORDS SUMMARY | 2024-12-13 15:36 | XMS_ITS | Encounter Summary ---
Author Organization [employer] Address [address] [facility] 7t [place] [address] Care Team Providers Care Medical Office Receptionist Assistant Name Role Phone Carmen Bertrand DO Primary Care Provider [phone] Reason for Visit * Reason Onset Date Comments Med Refill 12/07/2024 Encounter Details Date Type Department Care Team ([facility] st Contact Info) Description 12/07/2024 Refill [facility] CHC MED & PEDS [address] [place], [place] [phone] Carmen Bertrand DO [address] [place] [address] Chronic low back pain, unspecified back pain [...] Description 01/24/2025 1:00 PM EDT Clinical Support [facility] MEDICINE [address] [place] [address] 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, RN documented as of this encounter Visit Diagnoses Diagnosis Chronic low back pain, unspecified back pain laterality, unspecified whether sciatica present documented in this encounter Additional Health Concerns Assessment Noted Time PHQ-9 Depression Total Score: 22 024 11:00 AM EDT documented as of this encounter Care Teams Medical Office Receptionist Assistant Relationship Specialty Start Date End Date Carmen Bertrand DO [address] [place] [address] PCP - General Family Medicine 08/18/18 documented as of this encounter
== END 2024-12-13 14:08 | disposition home or self-care (01) ==
LOC: HO.HUSH 13:04
PROVIDERS: PCP Family Medicine; Visit Provider Urology
DX: E66.01 Morbid (severe) obesity due to excess calories (principal); R82.994 Hypercalciuria; R82.992 Hyperoxaluria; N20.0 Calculus of kidney; N20.1 Calculus of ureter; N13.30 Unspecified hydronephrosis; R10.9 Unspecified abdominal pain; Z13.9 Encounter for screening, unspecified
CPT/HCPCS: 99214; G2211

== ENCOUNTER 2024-12-22 10:19 | Outpatient (REF) | payer OTHER, SELFPAY ==
[2022-10-22 13:00] VITALS: BP 128/72; BP 148/88; BMI 63.7
[2023-01-30 14:13] VITALS: BP 140/60
--- NOTE | ~2024-12-22 | US_ITS ---
CLINICAL HISTORY: N13.30 - Unspecified hydronephrosis US kidneys and bladder Comparison: None Findings: Right kidney 10.3 cm length. 2 mm and 3 mm stones. No significant hydronephrosis. Left kidney 11.8 cm length. Mild left hydronephrosis. 3 mm stones. Small bilateral renal cysts. Normal bilateral renal echogenicity. Bladder is empty and not assessed. Bilateral ureteral jets not visualized. Impression: Small bilateral nonobstructing stones. Mild left hydronephrosis. This document has been electronically signed by: Art Calvo MD on 12/22/2024 18:57:56
--- OUTSIDE RECORDS SUMMARY | 2024-12-22 11:35 | XMS_ITS | Encounter Summary ---
Author Organization [email or web address] Address [address] [facility] 7t [place] [address] Care Team Providers Care Machine Cloth Measurer Name Role Phone Carmen Bertrand Primary Care Provider + [phone] Reason for Visit * Reason Comments Med Refill Encounter Details Date Type Department Care Team ([facility] st Contact Info) Description 03/08/2024 Refill [facility] MEDICINE [address] [place] [address] Rox Sutton MD [address] [place] [address] Pain Social History Tobacco Use Types Packs/Day [...] 1:00 PM EDT Clinical Support [facility] MEDICINE [address] [place] [phone] 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 RN documented as of this encounter Visit Diagnoses Diagnosis Pain Generalized pain documented in this encounter Additional Health Concerns Assessment Noted Time PHQ-9 Depression Total Score: 21 023 11:26 AM EST documented as of this encounter Care Teams Machine Cloth Measurer Relationship Specialty Start Date End Date Carmen Bertrand DO [address] [place] [address] PCP - General Family Medicine 08/18/18 documented as of this encounter
--- OUTSIDE RECORDS SUMMARY | 2024-12-22 11:35 | XMS_ITS | Encounter Summary ---
Author Organization [employer] [facility] Address [address] [place] [address] 7 [place] [address] Care Team Providers Care Postdoctoral Scientist Name Role Phone Carmen Bertrand DO Primary Care Provider [phone] Reason for Visit * Reason Comments Med Refill Encounter Details Date Type Department Care Team (Late st Contact Info) Description 07/29/2022 Refill [facility] MEDICINE [address] [place] [address] Carmen Bertrand DO [address] [place] [address] Social History Tobacco Use Types Packs/Day Years [...] 1:00 PM EDT Clinical Support [facility]ICINE [address] [place] [address] 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 RN documented as of this encounter Visit Diagnoses Not on filedocumented in this encounter Care Teams Postdoctoral Scientist Relationship Specialty Start Date End Date Carmen Bertrand DO [address] [place] [address] PCP - General Family Medicine 08/18/18 documented as of this encounter
--- OUTSIDE RECORDS SUMMARY | 2024-12-22 11:35 | XMS_ITS | Encounter Summary ---
Author Organization [employer] Address [address] [facility] 7t [place] [address] Care Team Providers Care Loan Operations Specialist Name Role Phone Carmen Bertrand DO Primary Care Provider + [phone] Reason for Visit * Reason Comments Med Refill Encounter Details Date Type Department Care Team ([facility] Contact Info) Description 10/18/2022 Refill [facility] [address] [place] [address] Carmen Bertrand DO [address] [place] [address] Social History Tobacco Use Types Packs/Day Years [...] PM EDT Clinical Support [facility] [address] [place] [address] 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 RN documented as of this encounter Visit Diagnoses Not on filedocumented in this encounter Additional Health Concerns Assessment Noted Time PHQ-9 Depression Total Score: 16 023 12:22 PM EST documented as of this encounter Care Teams Loan Operations Specialist Relationship Specialty Start Date End Date Carmen Bertrand DO 230 [place] [address] PCP - General Family Medicine 08/18/18 documented as of this encounter
--- OUTSIDE RECORDS SUMMARY | 2024-12-22 11:35 | XMS_ITS | Encounter Summary ---
Author Organization [employer] Address [address] [facility] 7t [place] [address] Care Team Providers Care Report Specialist Name Role Phone Carmen Bertrand DO Primary Care Provider + [phone] Reason for Visit * Reason Comments Med Refill Encounter Details Date Type Department Care Team ([facility] Contact Info) Description 02/03/2023 Refill [facility] [address] [place] [address] Leticia Ramirez MD [address] [place] [address] Nonintractable headache, unspecified chronicity pattern, unspecified headache [...] Support [facility] [address] [place] [address] 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 RN documented as of this encounter Visit Diagnoses Diagnosis Nonintractable headache, unspecified chronicity pattern, unspecified headache type documented in this encounter Additional Health Concerns Assessment Noted Time PHQ-9 Depression Total Score: 16 023 12:22 PM EST documented as of this encounter Care Teams Report Specialist Relationship Specialty Start Date End Date Carmen Bertrand DO [address] [place] [address] PCP - General Family Medicine 08/18/18 documented as of this encounter
--- OUTSIDE RECORDS SUMMARY | 2024-12-22 11:35 | XMS_ITS | Encounter Summary ---
Author Organization [employer] Address 75 [facility] 7t [place] [address] Care Team Providers Care Mill Crane Operator Name Role Phone Carmen Bertrand DO Primary Care Provider + [phone] Reason for Visit * Reason Comments Med Refill Encounter Details Date Type Department Care Team ([facility] st Contact Info) Description 02/24/[address] [facility] [address] [place] [address] Carmen Bertrand DO [address] [place] [address] Social History Tobacco Use Types Packs/Day Years [...] Description 01/24/2025 1:00 PM EDT Clinical Support [facility] [address] [place] [id number] 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 RN documented as of this encounter Visit Diagnoses Not on filedocumented in this encounter Additional Health Concerns Assessment Noted Time PHQ-9 Depression Total Score: 21 023 11:26 AM EST documented as of this encounter Care Teams Mill Crane Operator Relationship Specialty Start Date End Date Carmen Bertrand DO [address] [place] [address] PCP - General Family Medicine 08/18/18 documented as of this encounter
--- OUTSIDE RECORDS SUMMARY | 2024-12-22 11:35 | XMS_ITS | Encounter Summary ---
Author Organization [employer] Address [address] [facility] 7t [place] [address] Care Team Providers Care Bottoming Room Supervisor Name Role Phone Carmen Bertrand DO Primary Care Provider + [phone] Reason for Visit * Reason Comments Med Refill Encounter Details Date Type Department Care Team ([facility] st Contact Info) Description 03/16/2024 Refill [facility] [address] [place], [place] [phone] Carmen Bertrand DO [address] [facility] [place] [address] Chronic low back pain, unspecified back pain [...] Clinical Support [facility] [address] [place] [address] 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 RN documented as of this encounter Visit Diagnoses Diagnosis Chronic low back pain, unspecified back pain laterality, unspecified whether sciatica present documented in this encounter Additional Health Concerns Assessment Noted Time PHQ-9 Depression Total Score: 21 023 11:26 AM EST documented as of this encounter Care Teams Bottoming Room Supervisor Relationship Specialty Start Date End Date Carmen Bertrand DO [address] [place] [address] PCP - General Family Medicine 08/18/18 documented as of this encounter
--- OUTSIDE RECORDS SUMMARY | 2024-12-22 11:35 | XMS_ITS | Encounter Summary ---
Author Organization [email or web address] Address [address] [facility] 7t [place] [address] Care Team Providers Care Pre Certification Specialist Name Role Phone Carmen Bertrand DO Primary Care Provider + [phone] Reason for Visit * Reason Comments Med Refill Encounter Details Date Type Department Care Team ([facility] st Contact Info) Description 07/22/2023 Refill [facility] MED & PEDS [address] [place], [place] [phone] Carmen Bertrand DO [address] [facility] [place] [address] Hyperlipidemia, unspecified hyperlipidemia type Social History Tobacco [...] Description 01/24/2025 1:00 PM EDT Clinical Support [facility] MEDICINE [address] [place] [phone] 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 RN documented as of this encounter Visit Diagnoses Diagnosis Hyperlipidemia, unspecified hyperlipidemia type documented in this encounter Additional Health Concerns Assessment Noted Time PHQ-9 Depression Total Score: 21 023 11:26 AM EST documented as of this encounter Care Teams Pre Certification Specialist Relationship Specialty Start Date End Date Carmen Bertrand DO [address] [place] [address] PCP - General Family Medicine 08/18/18 documented as of this encounter
--- OUTSIDE RECORDS SUMMARY | 2024-12-22 11:35 | XMS_ITS | Encounter Summary ---
Author Organization [employer] Address [address] [facility] [address] [place] [address] Care Team Providers Care Calculation Clerk Name Role Phone Carmen Bertrand DO Primary Care Provider [phone] Encounter Details Date Type Department Care Team (Late st Contact Info) Description 08/13/2022 Orders Only [facility] PED[facility] [address] [place] [address] Carmen Perez LPN Social History Tobacco Use [...] Description 01/24/2025 1:00 PM EDT Clinical Support [facility] [address] [place] [address] 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, RULA documented as of this encounter Visit Diagnoses Not on filedocumented in this encounter Care Teams Calculation Clerk Relationship Specialty Start Date End Date Carmen Bertrand DO [address] [place] [address] PCP - General Family Medicine 08/18/18 documented as of this encounter
--- OUTSIDE RECORDS SUMMARY | 2024-12-22 11:35 | XMS_ITS | Encounter Summary ---
Author Organization [employer] Address [address] [facility] 7t [place] [address] Care Team Providers Care Blower And Compressor Assembler Name Role Phone Carmen Bertrand DO Primary Care Provider [phone] Encounter Details Date Type Department Care Team (Late st Contact Info) Description 09/09/2022 Orders Only [facility] MED & PEDS [address] [place] [address] Carmen Perez LPN Social History Tobacco Use [...] 1:00 PM EDT Clinical Support [facility] MEDICINE [address] [place] [address] 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, RULA documented as of this encounter Visit Diagnoses Not on filedocumented in this encounter Care Teams Blower And Compressor Assembler Relationship Specialty Start Date End Date Carmen Bertrand DO [address] [place] [address] PCP - General Family Medicine 08/18/18 documented as of this encounter
--- OUTSIDE RECORDS SUMMARY | 2024-12-22 11:35 | XMS_ITS | Clinical Summary ---
Author Organization [employer] Address [address] [facility] [address] [place] [address] Care Team Providers Care Lumber Handler Name Role Phone Carmen Bertrand DO Primary Care Provider + [phone] Allergies Active Allergy Reactions Criticality Noted Date [...] 2024 Active D3 Super Strength 50 MCG (1999 UT) capsule TAKE 1 CAPSULE BY MOUTH [...] 2025 Active ergocalciferol (Vitamin D2) 1.25 MG (76589 UT) capsule Take 1 capsule (1.25 mg) [...] BEDTIME NEEDED FOR HEARTBURN 30 tablet 3 025 Active traMADol (Ultram) 50 MG tabletIndications [...] HEARTBURN 30 tablet 3 024 2024 Discontinued(R eorosa (will not trigger notification to Pharmacy)) hydroquinone 4 % creamIndications: Acanthosis nigricans Apply topically 2 times daily. 28.35 g 1 024 2024 Discontinued Tirzepatide-Weigh t Management (Zepbound) 2.5 MG/0.5ML solution auto-injector Inject 0.5 mL (2.5 mg) under the skin 1 (one) time per week. 2 mL 3 025 2024 Discontinued(D ose adjustment) metroNIDAZOLE (Metrogel) 0.75 % gelIndications:Me lasma APPLY TOPICALLY TO THE AFFECTED AREA(S) ON FACE EVERY DAY NEEDED 45 g 1 025 2024 Discontinued traMADol (Ultram) 50 [...] Encounters Date Type Department Care Team Description 12/13/2024 Orders Only GENERIC EXTERNAL DATA DEPARTMENT Provider, Generic External Data 12/07/2024 Refill [facility] [address] [place] [address] Carmen Bertrand DO Chronic low back pain, unspecified back pain laterality, unspecified whether sciatica present 12/05/2024 Refill [facility] [address] [place] [address] Carmen Bertrand DO 12/05/2024 Refill [facility] [address] [place] [address] Irina Talley MD Melasma 12/03/2024 Refill [facility] [address] [place] [address] Alexandra Lisa MD Acanthosis nigricans 12/01/2024 Telephone [facility] [address] [place] [address] Lisa Rios, RULA Care Coordination 11/30/2024 9:15 AM EDT Office Visit [facility] [address] [place] [address] Carmen Bertrand DO Coronary artery disease 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 ) 11/12/2024 Telephone [facility] [address] [place] [address] Carmen Bertrand DO Hospital Follow-up 11/07/2024 Orders Only GENERIC EXTERNAL DATA DEPARTMENT Provider, Generic External Data 11/05/2024 Refill [facility] [address] [place] [address] Carmen Bertrand DO On pre-exposure prophylaxis for HIV 11/04/2024 Refill [facility] [address] [place], [place] [phone] Carmen Bertrand DO Chronic low back pain, unspecified back pain laterality, unspecified whether sciatica present 11/01/2024 Telephone [facility] [address] [place] [address] Carmen Bertrand DO telephone call 10/21/2024 1:30 PM EST Clinical Support [facility] [address] [place] [address] 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 RN Chronic bilateral low back pain without sciatica (Primary Dx) 10/21/2024 Travel 10/20/2024 2:30 PM EST Office Visit [facility] [address] [place] [address] Lewis, Tova, OD Presbyopia (Primary Dx); Cup to disc asymmetry, left 10/20/2024 Travel 10/11/2024 Refill [facility] [address] [place] [address] Carmen Bertrand DO Hypertension, unspecified type 10/06/2024 Telephone [facility] [address] [place] [address] Carmen Bertrand DO Prior Authorization 10/06/2024 Refill [facility] [address] [place] [address] Ирина Mckeon MD Nonintractable headache, unspecified chronicity pattern, unspecified headache type 10/05/2024 Refill [facility] [address] [place] [address] Carmen Bertrand DO Chronic low back pain, unspecified back pain laterality, unspecified whether sciatica present 10/05/[address] [address] Carmen Bertrand DO Nurse Triage 10/05/[address] [address] Carmen Bertrand DO Mild persistent asthma without complication; Melasma 10/01/2024 Refill [facility] [address] [place] [address] Carmen Bertrand DO 09/30/2024 Orders Only GENERIC EXTERNAL DATA DEPARTMENT Provider, Generic External Data 09/29/2024 Orders Only GENERIC EXTERNAL DATA DEPARTMENT Provider, Generic External Data 09/27/2024 11:45 AM EST Office Visit [address] [address] Carmen Bertrand DO Positive colorectal cancer screening using Cologuard test (Primary Dx) 09/27/2024 Travel from Last 3 Months Immunizations Name [...] Description 01/24/2025 1:00 PM EDT Clinical Support [address] [address] 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, RN Health Maintenance Due Date Last Done Comments CT Colonography 1975 Colonoscopy 1975 FIT 1975 FOBT 1975 Sigmoidoscopy 1975 Family Planning (PISQ) 1991 Hepatitis A Vaccines (1 of 2 - Risk 2-dose series) 1995 COVID-19 Vaccine ( season) 2024 06/07/2021, 01/29/2021 SDOH Screening 04/27/2025 04/27/2024 Diabetes: Hemoglobin A1C 08/24/2025 025, 04/27/2024, 04/27/2024, Additional history exists Alcohol/Substance Use Screening 09/27/2025 09/27/2024 Depression Screening 09/27/2025 09/27/2024, 04/27/20 Tobacco Screening 11/30/2025 11/30/2024 Zoster Vaccines (1 [...] Procedure Name Priority Date/Time Associated Diagnosis Comments CULTURE, URINE, ROUTINE Routine 12/13/2024 1:03 PM EDT NM HEART PERFUSION SPECT STRESS AND REST [...] QL NAAT Routine 09/29/2024 3:25 PM EST LAB COLOGUARD?? COLON CANCER SCREEN Routine [...] of left foot Healthcare maintenance HIV ANTIBODY/ANTIGEN ([facility]) Routine 02/21/2023 2:35 PM EDT from Last 3 Months or Most Recently Relevant to Health Maintenance Results * Culture, Urine, Routine (12/13/2024 1:03 PM EDT) Urine Urine specimen obtained by clean catch procedure / Unknown 12/13/2024 1:03 PM EDT 12/13/2024 5:13 PM EDT Comment:UACC Narrative [facility] - 12/15/2024 11:24 AM EDT Urine Culture No growth. Specimen Source: Urine clean catch us Generic External Data Provider LAB MICROBIOLOGY - GENERAL ORDERABLES Final Result Performing Organization Address [facility]/State/[facility] Co de Phone Number [facility] [address] [place] [phone] * NM heart perfusion SPECT stress and rest (11/08/2024 9:19 AM EDT) Anatomical Region Laterality Modality Body Nuclear Medicine 11/08/2024 9:19 AM EDT Narrative 11/09/2024 12:33 PM EDT ? [facility] ?[address] ?[place] [address] ?Nuclear Medicine Report ? Signed ? Patient: Blaire Quiroz ?MR#: M ?? [id number] ? : 1975 ?Acct:[id number] ? Age/Sex: 49 / F ?ADM Date: 03/23/25 ? Loc: HO.[facility] ?475-1 ? Attending Dr: Gregg Chavez MD ? Ordering Physician: Mars Hutchinson MD ?? Date of Service: 11/08/24 ?? Procedure(s): NM andrew perf SPECT rest ?? str ?? Accession Number(s): [id number] ? cc: Carmen Bertrand DO; Mars Hutchinson [...] DD/ 0919 ? TD/TT: 11/09/24 0955 ? Wildlife Manager: ? Procedure Note Donotuseinterpreter, Image - 11/09/2024 [place] [address] Nuclear Medicine Report Signed Patient: Christianne Quiroz#: M [id number] : 1975Acct:[id number] Age/Sex: 49 / FADM Date: 11/07/24 Loc: [facility] 475-[address]: Gregg Chaevz MD Ordering Physician: Mars Hutchinson MD Date of Service: 11/08/24 Procedure(s): NM andrew perf SPECT rest str Accession Number(s): [id number] cc: Carmen Bertrand DO; Mars Hutchinson MD [...] MD Signed By: <Electronically signed by Mars Huthcinson MD in OV> 11/09/24 1231 DD/ 0919 TD/TT: 11/09/24 0955 Wildlife Manager: [facility] External Provider IMG NM PROCEDURES Edited Result - Final * (ABNORMAL) High Sensitivity Troponin I (11/07/2024 7:34 PM EDT) Only the most recent of4 resultswithin the time period is included. TROPONIN I HIGH SENSITIVITY 85.7(HH) <3.5 - 17.0 ng/L [facility] Comment:Critical value for t est(s): HS-TNI Results called to rickie back by:ROSANNE Person calling:ALKAAB Date: 11/07/2024Time:20:02.The Vittana high sensitivity Troponin-I results should beused in conjunction with other diagnostic information suchas ECG, clinical observations and information, and patientsymptoms to aid in the diagnosis of MO. 11/07/2024 7:34 PM EDT 11/07/2024 7:37 PM EDT us Generic External Data Provider LAB BLOOD ORDERAB LES Final Result Performing Organization Address [facility]/ZIP Co de Phone Number [facility] [address] [place] [address] [phone] * (ABNORMAL) Partial Thromboplastin Time, Activated (APTT) (11/07/2024 7:34 PM EDT) Partial Thromboplastin Time 36.9(H) 26.0 - 36.8 SEC [facility] Comment:For information rega rding the monitoring of direct thrombininhibitors, please refer to Pharmacy. 11/07/2024 7:34 PM EDT 11/07/2024 7:37 PM EDT Generic External Data Provider LAB BLOOD ORDERAB LES Final Result Performing Organization Address [facility]/ZIP Co de Phone Number [facility] [address] [place] [address] [phone] * CT Abdomen Pelvis w/o Contrast (11/07/2024 7:25 PM EDT) Anatomical Region Laterality Modality Body, Pelvis, Abdomen Computed T omography 11/07/2024 7:25 PM EDT Narrative 11/07/2024 7:26 PM EDT ? [facility] ?[address] ?[place] [address] ? [address] Scan Report ? Signed ? Patient: Maria LuisaFermin Gonsalesssica ?MR#: M ?? [id number] ? : 1975 ?Acct:[id number] ? Age/Sex: 49 / F ?ADM Date: 03/23/25 ? Loc: HO.ED ? Attending Dr: ? Ordering Physician: Marco Lugo MD ?? Date of Service: 03/23/25 ?? Procedure(s): CT abdomen pelvis wo IV con ?? Accession Number(s): [id number] ? cc: Carmen Bertrand DO; Marco Lugo MD ? Report Number: ?? [id number]: Total DLP = 1392.00 mGy-cm ? CLINICAL HISTORY: left flank pain ? CT abdomen and pelvis without contrast ? Comparison: DX - XR HIP RT MIN 2V - 09/17/24 11:03 EST ?? US/SR - US ABDOMEN COMPLETE - 05/07/24 09:08 EDT ?? CT/VT/SR - CT ABDOMEN PELVIS WO IV CON [...] ? DD/ 24 ? TD/TT: 11/07/241924 ? Wildlife Manager: ? Procedure Note Dawna Lora - 11/07/[address] [place] [address] [address] Scan Report Signed Patient: Blaire Quiroz#: M [id number] : 1975Acct:[id number] Age/Sex: 49 / FADM Date: 11/07/24 Loc: HO.ED Attending Dr: Ordering Physician: Marco Lugo MD Date of Service: 11/07/24 Procedure(s): CT abdomen pelvis wo IV con Accession Number(s): [id number] cc: Carmen Bertrand DO; Marco Lugo MD Report Number: [id number]: Total DLP = 1392.00 mGy-cm CLINICAL HISTORY: left flank pain CT abdomen and pelvis without contrast Comparison: DX - XR HIP RT MIN 2V - 09/17/24 11:03 EST US/SR - US ABDOMEN COMPLETE - 05/07/24 09:[address]/VT/SR - CT ABDOMEN PELVIS WO IV CON [...] in OV> 11/07/241924 DD/ 24 TD/TT: 11/07/241924 Wildlife Manager: [facility] External Provider IMG CT PROCEDURES Edited Result - Final * XR Chest 1 View (11/07/2024 6:43 PM EDT) Anatomical Region Laterality Modality Chest Radiographic Alejandrina ging 11/07/2024 6:43 PM EDT Narrative 11/07/2024 6:45 PM EDT ? [facility] ?[address] ?[place] [address] ?XRay Report ? Signed ? Patient: Maria Luisa Jean,Blaire ?MR#: M ?? [id number] ? : 1975 ?Acct:[id number] ? Age/Sex: 49 / F ?ADM Date: 03/23/25 ? Loc: HO.ED ? Attending Dr: ? Ordering Physician: Marco Lugo MD ?? Date of Service: 11/07/24 ?? Procedure(s): XR chest 1V ?? Accession Number(s): [id number] ? cc: Carmen Bertrand DO; Marco Lugo MD ? CLINICAL HISTORY: Chest pain ? 1 view chest x-ray ? Comparison: CR/VT/SR - XR CHEST 1V - 11/11/23 18:01 [...] MD in OV> ?11/07/24 1844 ? DD/ ? TD/TT: 11/07/241842 ? Wildlife Manager: ? Procedure Note Dawna Lora - 11/07/[address] [address] XRay Report Signed Patient: Blaire Quiroz#: M [id number] : 1975Acct:[id number] Age/Sex: 49 / FADM Date: 11/07/24 Loc: .ED Attending Dr: Ordering Physician: Marco Lugo MD Date of Service: 11/07/24 Procedure(s): XR chest 1V Accession Number(s): [id number] cc: Carmen Bertrand DO; Marco Lugo MD CLINICAL HISTORY: Chest pain 1 view chest x-ray Comparison: CR/VT/SR - XR CHEST 1V - 11/11/23 18:01 EDT Findings: No consolidation or effusion. Heart size is normal. No acute fracture. IMPRESSION: 1. No acute findings. This document has been electronically signed by: Mahad Pearl MD on 11/07/2024 18:43:58 Dictated By: Mahad Pearl MD Signed By: <Electronically signed by Mahad Pearl MD in OV> 11/07/241843 DD/ 42 TD/TT: 11/07/241842 Wildlife Manager: [facility] External Provider IMG XR PROCEDURES Edited Result - Final * (ABNORMAL) CBC auto differential (11/07/2024 4:29 PM EDT) Only the most recent of2 resultswithin the time period is included. White Blood Count 11.1(H) 4.8 - 10.8 X10*3/uL [facility] Red Blood Count 4.18(L) 4.20 - 5.50 X10*6/uL [facility] Hemoglobin 12.9 12.0 - 16.0 g/dl [facility] Hematocrit 38.3 37.0 - 47.0 % [facility] Mean Corpuscular Volume 91.6 80.0 - 98.0 fL [facility] Mean Corpuscular Hemoglobin 30.9 27.0 - 33.0 pg [facility] Mean Corpuscular HGB Conc 33.7 31.0 - 35.0 g/dl [facility] Red Cell Distribution Width 14.2 11.0 - 16.0 % [facility] Platelet Count 326 160 - 400 X10*3/uL [facility] Mean Platelet Volume 9.2(L) 9.4 - 12.3 fL [facility] Neutrophils Percent Auto 50.5 45 - 73 % [facility] Imm Gran Pct Auto 0.5(H) 0.0 - 0.4 % [facility] Lymphocytes Percent Auto 36.9 20 - 40 % [facility] Monocytes Percent Auto 7.9 2 - 11 % [facility] Eosinophils Percent Auto 3.7 0 - 4 % [facility] Basophils Percent Auto 0.5 0 - 2 % [facility] NRBC Pct Auto 0.0 0.0 - 0.2 /100WBC [facility] Neutrophils Absolute Auto 5.6 2.0 - 8.3 x10*3/uL [facility] Imm Gran Abs Auto 0.05(H) 0.00 - 0.03 X10*3/uL [facility] Lymphocytes Absolute Auto 4.1 1.2 - 4.9 X10*3/uL [facility] Monocytes Absolute Auto 0.9 0.1 - 1.2 X10*3/uL [facility] Eosinophils Absolute Auto 0.4 0.0 - 0.4 X10*3/uL [facility] Basophils Absolute Auto 0.1 0.0 - 0.2 X10*3/uL [facility] NRBC Abs Auto 0.000 0.0 - 0.012 X10*3/uL [facility] 11/07/2024 4:29 PM EDT 11/07/2024 4:33 PM EDT Generic External Data Provider LAB BLOOD ORDERAB LES Final Result Performing Organization Address [facility]/ZIP Co de Phone Number [facility] [address] [place] [phone] * Magnesium (11/07/2024 4:29 PM EDT) Only the most recent of2 resultswithin the time period is included. Magnesium 1.7 1.6 - 2.6 mg/dL [facility] 11/07/2024 4:29 PM EDT 11/07/2024 4:33 PM EDT us Generic External Data Provider LAB BLOOD ORDERAB LES Final Result Performing Organization Address City/[facility]/ZIP Co de Phone Number [facility] [address] [place] [phone] * Lipase (11/07/2024 4:29 PM EDT) Lipase 11 8 - 78 U/L [facility] 11/07/2024 4:29 PM EDT 11/07/2024 4:33 PM EDT us Generic External Data Provider LAB BLOOD ORDERAB LES Final Result [facility] [address] [place] [phone] [phone] * (ABNORMAL) Comprehensive Metabolic Panel (11/07/2024 4:29 PM EDT) Sodium 141 135 - 145 mmol/L [facility] Potassium 3.9 3.3 - 5.1 mmol/L [facility] Chloride 110(H) 96 - 108 mmol/L [facility] Carbon Dioxide 25 22 - 29 mmol/L [facility] Anion Gap 10(L) 12 - 20 [facility] Urea Nitrogen (BUN) 12 9 - 16 mg/dL [facility] Creatinine, Serum 0.96 0.5 - 1.4 mg/dL [facility] Creatinine Clr Calc Pharmacy 115.0 [facility] Comment:Provided height and weight: 167.64 cm,165.3 kg.eGFR (calculated from the MDRD study equation) and eCrCl(calculated from the Cockcroft-Gault equation) are based ondifferent parameters and may not yield comparable results.If eCrCl result is absurd, please check patient'sheight/weight. Estimated Glomerular Filt Rate >60 [facility] Comment:Chronic Kidney Disea se: Estimated GFR < 60 mL/min/1.39u9Zvugyh Kidney Disease: Estimated GFR < 15 mL/min/1.73m2 Glucose 97 60 - 115 mg/dL [facility] Calcium 9.2 8.4 - 10.2 mg/dL [facility] Bilirubin, Total 0.2 0.0 - 1.0 mg/dL [facility] Aspartate Amino Transferase 23 5 - 31 U/L [facility] Alanine Aminotransferase 13 0 - 31 U/L [facility] Total Protein 7.6 6.5 - 8.0 g/dL [facility] Albumin Level 3.4(L) 3.5 - 5.0 g/dL [facility] Alkaline Phosphatase 98 39 - 117 U/L [facility] 11/07/2024 4:29 PM EDT 11/07/2024 4:33 PM EDT Generic External Data Provider LAB BLOOD ORDERAB LES Final Result [facility] [address] [place] [phone] [phone] * POCT ANALISA-14 Urine Drug Screen (10/21/2024 2:02 PM EST) Urine Urine specimen obtained by clean catch procedure / Unknown 10/21/2024 2:02 PM EST Narrative 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 RN - 10/21/2024 2:02 PM EST UTOX cup Lot#[id number] Exp. 04/06/26 Internal Pass Control UTOX Negative for all substances. Carmen Bertrand DO POINT OF CARE TEST ENTER/LANEY T ORDERABLES Final Result * Optic Disc Photos - OU - Both Eyes (10/20/2024 2:30 PM EST) Narrative LewisAlexandern, OD - 11/05/2024 10:00 AM EDT Right [...] Likely physiological. Will monitor at next exam. Tova Saucedo OD OPHTH PHOTOGRAPHY Final Resul t * Fundus Photos - OU - Both Eyes (10/20/2024 2:30 PM EST) dAriana Boogieadelfo Tova, OD - 11/05/2024 9:58 AM EDT Erroneous order Tova Lewis OD OPHTH PHOTOGRAPHY Final Resul t * SARS-CoV-2 RNA, Influenza A/B, and RSV RNA, Ql NAAT (09/29/2024 3:25 PM EST) Influenza A PCR NEGATIVE Negative [facility] Influenza B PCR NEGATIVE Negative [facility] Resp Syncy Virus RNA Qual PCR NEGATIVE Negative [facility] SARS COV2 PCR NEGATIVE Negative [...] use by authorized laboratories.Testing performed on the [employer] GeneXpert utilizingreal-time RT-PCR.All SARS CoV2 and positive influenza A/B results arereported to [facility]. 09/29/2024 3:25 PM EST 09/29/2024 3:28 PM EST us Generic External Data Provider LAB MICROBIOLOGY - GENERAL ORDERABLES Final Result Performing Organization Address City/State/[facility] Co de Phone Number [facility] [address] [place] [phone] * Prothrombin Time-INR (09/29/2024 3:25 PM EST) Prothrombin Time 11.4 10.9 - 12.4 SEC [facility] INTERNATIONAL NORM RATIO 1.0 0.9 - 1.1 [facility] Comment:INTERNATIONAL NORMAL IZED RATIO (INR) [...] Final Result Performing Organization Address [facility] de Phone Number [facility] [address] [place] [phone] * B Type Natriuretic Peptide (BNP) (09/29/2024 3:25 PM EST) [facility] B Type Natriuretic Peptide 45 <100 pg/mL [facility] Comment:For those patients w ho are being treated with Natrecor(nesiritide, recombinant BNP), BNP testing should beperformed at least two hours post treatment in order toensure that only endogenous levels of BNP are detected. 09/29/2024 3:25 PM EST 09/29/2024 3:28 PM EST us Generic External Data Provider LAB BLOOD ORDERAB LES Final Result Performing Organization Address [facility] Phone Number [facility] [address] [place] [phone] * Hepatic Function Panel (09/29/2024 3:25 PM EST) [facility] Bilirubin, Total 0.5 0.0 - 1.0 mg/dL [facility] Bilirubin, Direct 0.2 0.0 - 0.5 mg/dL [facility] Aspartate Amino Transferase 22 5 - 31 U/L [facility] Alanine Aminotransferase 21 0 - 31 U/L [facility] Total Protein 7.8 6.5 - 8.0 g/dL [facility] Albumin Level 3.6 3.5 - 5.0 g/dL [facility] Alkaline Phosphatase 94 39 - 117 U/L [facility] 09/29/2024 3:25 PM EST 09/29/2024 3:28 PM EST us Generic External Data Provider LAB BLOOD ORDERAB LES Final Result Performing Organization Address [facility] de Phone Number [facility] [address] [place] [phone] * Basic Metabolic Panel (09/29/2024 3:25 PM EST) Sodium 140 135 - 145 mmol/L [facility] Potassium 4.6 3.3 - 5.1 mmol/L [facility] Chloride 108 96 - 108 mmol/L [facility] Carbon Dioxide 25 22 - 29 mmol/L [facility] Anion Gap 12 12 - 20 [facility] Urea Nitrogen (BUN) 12 9 - 16 mg/dL [facility] Creatinine, Serum 0.82 0.5 - 1.4 mg/dL [facility] Creatinine Clr Calc Pharmacy 139.5 [facility] Comment:Provided height and weight: 175.26 cm,164.1 kg.eGFR (calculated from the MDRD study equation) and eCrCl(calculated from the Cockcroft-Gault equation) are based ondifferent parameters and may not yield comparable results.If eCrCl result is absurd, please check patient'sheight/weight. Estimated Glomerular Filt Rate >60 [facility] Comment:Chronic Kidney Disea se: Estimated GFR < 60 mL/min/1.48o0Nogbdu Kidney Disease: Estimated GFR < 15 mL/min/1.73m2 Glucose 97 60 - 115 mg/dL [facility] Calcium 9.6 8.4 - 10.2 mg/dL [facility] 09/29/2024 3:25 PM EST 09/29/2024 3:28 PM EST us Generic External Data Provider LAB BLOOD ORDERAB LES Final Result [facility] [address] [place] [phone] * (ABNORMAL) Cologuard?? colon cancer screening (08/31/2024 10:33 AM EST) Cologuard Result Positive( A) Negative 09/07/2024 10:16 AM EST [facility] (CLIA #:[id number]) Comment: POSITIVE TEST RESULT. A positive Cologuard [...] (Ashleigh Zhou al, N Engl J Med 2014;370(14):4556-4075.) Cologuard may produce a false negative or false positive result (no colorectal cancer or precancerous polyp present at colonoscopy follow up). A negative Cologuard test result does not guarantee the absence of CRC or advanced adenoma (pre-cancer). The current Cologuard screening interval is every 3 years. ([place] [employer] and U.S. Multi-Society Task Force). Cologuard performance data in a 10,000 patient pivotal study using colonoscopy as the reference method can be accessed at the following location: www.[employer]/results. Additional description of the Cologuard test process, warnings and precautions can be found at www.[employer]Surance.com. Stool specimen (specimen) 08/31/2024 10:33 AM EST 09/01/2024 11:06 AM EST Carmen Bertrand DO LAB MOLECULAR DIAGNOSTICS OR DERABLES Final Result [facility] (CLIA #:[id number]) [place] [address], * Hemoglobin A1c (08/24/2024 11:57 AM EST) Hemoglobin A1c 6.0 <6.0 % [facility] Comment:Hemoglobin A1C Refer ence Range Adults: 4.8 - 6.0 % Non diabetic: < 6.0 % Goal: < 7.0 %Additional Action Suggested: > 8.0 %Note: Hemoglobin A1c results are invalid for patients with abnormal amounts of HbF. Blood transfusions may impact the HbA1c concentration in the patient sample. Estimated Average Glucose 126 mg/dL [facility] Comment:eAG = Estimated ave rage glucose which is %A1C expressed asaverage glucose, using the formula of the E5K-YwkhwdyCblraav Glucose study (ADAG), Diabetes Care, Vol.31,#8,Mar. 2007 Blood Venous blood specimen / Unknown 08/24/2024 11:57 AM EST 08/24/2024 1:03 PM EST Carmen Bertrand DO LAB BLOOD ORDERABLES Final R esult Performing Organization Address City/[facility]/ZIP Co de Phone Number [facility] [address] [place] [phone] * (ABNORMAL) Lipid Panel, Standard (08/24/2024 11:57 AM EST) Triglycerides 82 <150 mg/dL [facility] Comment:Desirable Triglyceri de: less than 150 mg/dLBorderline High Triglyceride 150-199 mg/dLHigh Triglyceride: 200-499 mg/dLVery High Triglyceride: greater than or equal to 5OO mg/dL Cholesterol 136 <200 mg/dL [facility] Comment:Desirable Cholestero l: less than 200 mg/dLBorderline High Cholesterol: 200-239 mg/dLHigh Cholesterol: greater than 239 mg/dL LDL Cholesterol Calculated 81 <100 mg/dL [facility] Comment:Desirable LDL: less than 100 mg/dLNear Optimal/Above Optimal LDL: 110- 129 mg/dLBorderline High LDL: 130-159 mg/dLHigh LDL: 160-189 mg/dLVery High LDL: greater than or equal to 190 mg/dL HDL Cholesterol 39(L) >40 mg/dL [facility] Comment:Desirable HDL: great er than 40 mg/dL Note: This HDL assay may give artificially low results in patients with liver disease. Blood Venous blood specimen / Unknown 08/24/2024 11:57 AM EST 08/24/2024 1:03 PM EST Carmen Bertrand DO LAB BLOOD ORDERABLES Final R esult [facility] [address] [place] [address] [phone] * BI US Breast Limited Bilateral (06/02/2024 2:00 PM EDT) Anatomical Region Laterality Modality Breast Bilateral Ultrasound 06/02/2024 2:00 PM EDT Narrative 06/03/2024 8:44 AM EDT ? [facility] [place] ? [address] ?[place] [address] ? Ultrasound Report ? Signed ? Patient: Maria Luisa MarroquinriaBlaire ?MR#: M ?? [id number] ? : 1975 ?Acct:[id number] ? Age/Sex: 49 / F ?ADM Date: 10/16/24 ? Loc: HO.MAMMO ? Attending Dr: Carmen Bertrand DO ? Ordering Physician: Carmen Bertrand DO ?? Date of Service: 06/02/24 ?? Procedure(s): breast BI limited mamm only ?? Accession Number(s): [id number] ? cc: Carmen Bertrand DO ? EXAMINATION: [...] ?? benign. ? No suspicious findings. ? /US breast BI limited mamm only ?? IMPRESSION: [...] DD/ 1400 ? TD/TT: 06/02/24 1454 ? Wildlife Manager: ? Procedure Note Donvirginiainterpreter, Image - 06/03/2024 Aleksander [facility] [address] [place] [address] Ultrasound Report Signed Patient: Blaire Quiroz#: M [id number] : 1975Acct:[id number] Age/Sex: 49 / FADM Date: 06/02/24 Loc: HO.MAMMO Attending Dr: Carmen Bertrand DO Ordering Physician: Carmen Bertrand DO Date of Service: 06/02/24 Procedure(s): US breast BI limited mamm only Accession Number(s): [id number] cc: Carmen Bertrand DO EXAMINATION: US DIAGNOSTIC [...] 06/03/24 0841 DD/ 1400 TD/TT: 06/02/24 1454 Wildlife Manager: us Carmen Bertrand DO IMG US PROCEDURES Final Resu lt * Hepatitis C Antibody with Reflex to HCV, RNA, Quantitative, Real-Time PCR (04/27/2024 2:02 PM EDT) Hepatitis C Antibody Nonreactive Nonreactive [facility] Comment:Antibodies to HCV no t detected; does not exclude early acuteHCV infection. Blood Venous blood specimen / Unknown 04/27/2024 2:02 PM EDT 04/27/2024 4:01 PM EDT Carmen Bertrand DO LAB BLOOD ORDERABLES Final R esult Performing Organization Address City/[facility]/ZIP Co de Phone Number [facility] [address] [place] [address] [phone] * HIV Ab/Ag ([facility]) (02/21/2023 2:35 PM EDT) [facility] HIV AB/AG Nonreactive Nonreactive [facility] Comment:HIV-1 p24 Ag and/or HIV-1/HIV-2 Ab not detected.A test result that is nonreactive does not exclude thepossibility of exposure to or infection with HIV-1 and/orHIV-2. Nonreactive results in this assay for individualswith prior exposure to HIV-1 and/or HIV-2 may be due toantigen and antibody levels that are below the limit ofdetection of this assay.The [employer] Consultant HIV Ag/Ab Combo assay result andsupplemental assay results should be interpreted inconjunction with the patient's clinical presentation,history and other laboratory results. If the results areinconsistent with clinical evidence, additional testing issuggested to confirm the result. 02/21/2023 2:35 PM EDT 02/21/2023 2:37 PM EDT [facility] External Provider LAB BLO OD ORDERABLES Final Result Performing Organization Address [facility]/ZIP Co de Phone Number [facility] [address] [place] [address] [phone] from Last 3 Months or Most Recently Relevant to Health Maintenance Insurance [facility] [place] < [address] [place] [id number] ONE CARE < 65 Care Teams Lumber Handler Relationship Specialty Start Date End Date Carmen Bertrand DO [address] [place] [address] PCP - General Family Medicine 08/18/18
--- OUTSIDE RECORDS SUMMARY | 2024-12-22 11:35 | XMS_ITS | Encounter Summary ---
Author Organization [email or web address] [facility] Address [address] [place] [address] 7t [place] [address] Care Team Providers Care Bag Mender Name Role Phone Carmen Bertrand DO Primary Care Provider [phone] Encounter Details Date Type Department Care Team (Late st Contact Info) Description 09/09/2022 Orders Only [facility] [address] [place] [address] Azul Albrecht LPN Social History Tobacco Use [...] EDT Clinical Support [facility] [address] [place] [phone] 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, RN documented as of this encounter Visit Diagnoses Not on filedocumented in this encounter Care Teams Bag Mender Relationship Specialty Start Date End Date Carmen Bertrand DO [address] [place] [address] PCP - General Family Medicine 08/18/18 documented as of this encounter
--- OUTSIDE RECORDS SUMMARY | 2024-12-22 11:36 | XMS_ITS | Encounter Summary ---
Author Organization [employer] Address [address] [facility] 7t [place] [address] Care Team Providers Care Data Security Analyst Name Role Phone Carmen Bertrand DO Primary Care Provider + [phone] Reason for Visit * Reason Comments Med Refill Encounter Details Date Type Department Care Team ([facility] st Contact Info) Description 05/12/2024 Refill [facility] [address] [place], [place] [phone] Carmen Bertrand DO [address] [facility] [place] [address] Chronic low back pain, unspecified back pain [...] EDT Clinical Support [facility] [address] [place] [address] 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, RULA documented as of this encounter Visit Diagnoses Diagnosis Chronic low back pain, unspecified back pain laterality, unspecified whether sciatica present documented in this encounter Additional Health Concerns Assessment Noted Time PHQ-9 Depression Total Score: 22 024 11:00 AM EDT documented as of this encounter Care Teams Data Security Analyst Relationship Specialty Start Date End Date Carmen Bertrand DO [address] [place] [address] PCP - General Family Medicine 08/18/18 documented as of this encounter
--- OUTSIDE RECORDS SUMMARY | 2024-12-22 11:36 | XMS_ITS | Encounter Summary ---
Author Organization [employer] Address 75 [facility] 7t [place] [address] Care Team Providers Care Medication Aide Name Role Phone Carmen Bertrand DO Primary Care Provider + [phone] Reason for Visit * Reason Onset Date Comments Hospital Follow-up 11/12/2024 Encounter Details Date Type Department Care Team ([facility] Contact Info) Description 11/12/2024 Telephone [facility] [address] [place] [address] Carmen Bertrand DO [address] [place] [address] Hospital Follow-up Social History Tobacco Use Types [...] from pt requesting a HDF appt. Hospital: [facility] Date of admission: 11/07/2024 Discharge date: 11/12/2024 Diagnosed: heart attack *Send message to [place] Clinical Care Coordinators documented in this encounter Plan of Treatment Upcoming Encounters Date Type Department Care Team (Late st Contact Info) Description 01/24/2025 1:00 PM EDT Clinical Support [facility] [address] [place] [address] 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, RULA documented as of this encounter Visit Diagnoses Not on filedocumented in this encounter Additional Health Concerns Assessment Noted Time PHQ-9 Depression Total Score: 22 024 11:00 AM EDT documented as of this encounter Care Teams Medication Aide Relationship Specialty Start Date End Date Carmen Bertrand DO [address] [place] [address] PCP - General Family Medicine 08/18/18 documented as of this encounter
--- OUTSIDE RECORDS SUMMARY | 2024-12-22 11:36 | XMS_ITS | Data Portability ---
Author Organization [employer] [facility], [place] - [facility] Address [address] [place] [phone] Care Team Providers Care Limited Radiology Technician Name Role Phone [facility] OTHER [facility] OTHER Assessment Encounter Date Assessment Date Assessment [...] recorded. Lab rapid flu (A+B) 2024 [facility]25 [facility] [address] [place] [address], [id number] 5 15:45:24 rapid SARS CoV 2 Ag, QL IA, respiratory specimen [address], [phone] 5 15:45:08 Referral None recorded. Procedures None recorded. Surgeries None recorded. Imaging None recorded. Medication Orders albuterol sulfate 2.5 mg/3 mL (0.083 %) solution for nebulizatio n 2024 025 [facility]acy #[id number], [address] [place], [address], 18:27:03 Patient TargetsNo targets recorded. Patient InstructionsNo [...] Name and Address Organization Details Recorded Time 50654 aspirin medicatio n Not available Not available Not available 10/05/2024 1191 RxNorm Not Available [facility] - production 5 13:36:43 46470 penicilli n V Not available Not available Not available Not available 10/05/2024 7984 RxNorm Not Available [facility] - production 5 13:36:43 11803 penicilli n G procaine medicatio n Not available Not available Not available 10/05/2024 7983 RxNorm Not Available [facility] - production 5 13:36:43 57336 penicilli n G benzathin e medicatio n [...] % 172.72 cm 18 /min 98.4 [degF] 220846. 272 g 131 mm[Hg] 78 mm[Hg] Not [...] SNOMED-CT Code Diagnosis ICD10 Code Diagnosis Note [id number] Reese Jarvis MD Main - [facility] [address] [place] [phone] 10/05/2024 14:55:01 10/07/2024 08:39:41 Wheezing [id number] R06.2 Health Concerns Section Related Observation LastModified by Organization Detai ls LastModified Time None Recorded Concern Status LastModified by Organization Details LastModified Time None Recorded Advance Directives Directive None Recorded Payers Insurance Date Sequence Insurance Name Policy Number Policy Parra Covered Member ID Parra Member ID Guarantor Name 10/05/2024 1 [facility] - DOS ON OR AFTER 2022 - DUAL ELIGIBLE - [facility] OPTIONS AND ONE CARE (MEDICARE REPLACEMENT/ADV ANTAGE - HMO) Blaire Santosminnie Jean [id number] Blaire Maria Luisa Jean Notes Date Note Type Note Provider Name and Address Organization Details Recorded Time 10/05/2024 text/html HPI: Call returned to Blaire Jean to triage below. Reports having Headache, Fever, Body Aches, Sore Throat, Runny Nose x 3 days. Per pt seen at [facility] ER on Friday. Per pt seen for CP. Had testing done while in ER. Pt had negative homekit for COVID-19 last night. Reports having SOB with exertion. No wheezing. Pt speaking in clear full sentences. Pt advised of disposition, unable to come into [facility]. Agrees to [facility] for evaluation. Confirmed demographics and allergies. .................. .................. .................. .................. .................. .................. .................. ............... CRC Nurse Triage Notes (Radha Martinez - RN): Chief Complaints: Cough, Fever/chills, Headache, Sore throat, Breathing problems PMH: Hypertension, Asthma, Coronary Artery Disease PMH Reviewed at 10/05/2024 - 13:36 Allergies Reviewed at 10/05/2024 - 13:36 Comments: CRC RN did not require any additional information to process this visit. Gas Plant Dispatcher Organization Information for Ankita Castillo Business Legal Name: [employer]? Address: [address] [place] [address], Rough Patcher: Marino Dow MD CLIA No.: [id number] Gas Plant Dispatcher POC Test Results from Ankita Castillo Rapid COVID antigen (14:56:21) COVID: - Rapid influenza antigen (14:56:24) Flu: - Rapid strep test (14:56:25) Strep: - .................. .................. .................. .................. .................. .................. .................. ............... Gas Plant Dispatcher Note From Ankita Castillo: Sent to a call for a pt complaining of URI symptoms. SC8 arrives on scene, pt is alert and oriented, airway is patent. Pt complains of URI symptoms since Friday. Pt states she had chest tightness Friday-Friday, but was evaluated at [facility] ED on Friday. Pt states she [...] administered; Lung sounds: clear bilaterally; SpO2:98% RA; [facility] consulted and sends script to pt's pharmacy for Albuterol neb solutions. Red flags discussed. Pt has no further questions. .................. .................. .................. .................. .................. .................. .................. ............... [facility] Consulted: Reese Jarvis .................. .................. .................. .................. .................. .................. .................. ............... Disposition: Fulfilled Reese Jarvis MD [address] [facility],[address], [place], [phone], BHAVIN - BERNADINE CADENA 10/06/2024 15:39:31 OBGyn Episode No OBEpisode recorded.
--- OUTSIDE RECORDS SUMMARY | 2024-12-22 11:36 | XMS_ITS | Encounter Summary ---
Author Organization [employer] Address 75 [facility] 7t [place] [address] Care Team Providers Care Car Distributor Name Role Phone Carmen Bertrand Primary Care Provider + [phone] Reason for Visit * Reason Comments Med Refill Encounter Details Date Type Department Care Team ([facility] st Contact Info) Description 01/13/2024 Refill [facility] [address] [place] [address] Rox Sutton MD [address] [place] [address] Pain Social History Tobacco Use Types Packs/Day [...] 01/24/2025 1:00 PM EDT Clinical Support [facility] [address] [place] [address] 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 RN documented as of this encounter Visit Diagnoses Diagnosis Pain Generalized pain documented in this encounter Additional Health Concerns Assessment Noted Time PHQ-9 Depression Total Score: 21 023 11:26 AM EST documented as of this encounter Care Teams Car Distributor Relationship Specialty Start Date End Date Carmen Bertrand DO [address] [place] [address] PCP - General Family Medicine 08/18/18 documented as of this encounter
--- OUTSIDE RECORDS SUMMARY | 2024-12-22 11:36 | XMS_ITS | Encounter Summary ---
Author Organization [employer] Address [address] [facility] 7t [place] [address] Care Team Providers Care Counter Intelligence Agent Name Role Phone Carmen Bertrand DO Primary Care Provider + [phone] Reason for Visit * Reason Comments Med Refill Encounter Details Date Type Department Care Team ([facility] st Contact Info) Description 11/20/2022 Refill [facility] [address] [place] [address] Carmen Bertrand DO [address] [place] [address] Morbid obesity with body mass index (BMI) [...] Description 01/24/2025 1:00 PM EDT Clinical Support [facility] [address] [place] [address] 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, RN documented as of this encounter Visit Diagnoses Diagnosis Morbid obesity with body mass index (BMI) of 50.0 to 59.9 in adult (CMS/HCC) documented in this encounter Additional Health Concerns Assessment Noted Time PHQ-9 Depression Total Score: 16 023 12:22 PM EST documented as of this encounter Care Teams Counter Intelligence Agent Relationship Specialty Start Date End Date Carmen Bertrand DO [address] [place] [address] PCP - General Family Medicine 08/18/18 documented as of this encounter
== END 2024-12-22 10:20 | disposition home or self-care (01) ==
LOC: HO.US 10:19
PROVIDERS: PCP Family Medicine; Visit Provider Urology
DX: N13.30 Unspecified hydronephrosis (principal); N20.1 Calculus of ureter; N20.0 Calculus of kidney
CPT/HCPCS: 76775

== ENCOUNTER → 2024-12-22 10:21 | Outpatient (BNV) | payer OTHER, SELFPAY ==
[2022-10-22 13:00] VITALS: BP 128/72; BP 148/88; BMI 63.7
[2023-01-30 14:13] VITALS: BP 140/60
== END ==
PROVIDERS: PCP Family Medicine; Visit Provider Radiology Diagnostic Radiology
DX: N20.0 Calculus of kidney (principal)
CPT/HCPCS: 76775

== ENCOUNTER 2024-12-28 19:57 | Emergency (ER) | payer OTHER, SELFPAY ==
[2022-10-22 13:00] VITALS: BP 128/72; BP 148/88; BMI 63.7
[2023-01-30 14:13] VITALS: BP 140/60
--- NOTE | ~2024-12-28 | CT_ITS ---
CLINICAL HISTORY: headache 3 days, no hx of same, occipital mass CT head without contrast Comparison: None Findings: No intra-axial mass, midline shift, hydrocephalus, or acute hemorrhage. No significant atrophy-like change or white matter disease. The visualized paranasal sinuses and mastoid air cells are normal. The orbits are unremarkable. No skull fracture. IMPRESSION: 1. No acute intracranial findings. This document has been electronically signed by: Jaydon Juan MD on 12/28/2024 21:40:59
[2024-12-28 20:09] VITALS: BP 103/54; PULSE 74; RESP 20; TEMP 36.6; O2SAT 95; BMI 50.9
[2024-12-28 20:29] LABS: MANUAL DIFF FLAG NO
--- NOTE | 2024-12-28 20:30 | ED.GENADULT ---
HPI - General Adult General Chief complaint: General Medical Stated complaint: found bump on head x 3 days hurts a lot Related Data Home Medications ?Medication ?Instructions ?Recorded ?Confirmed albuterol sulfate 90 mcg/actuation 2 puff PO Q4-6H PRN Wheezing 12/01/20 12/13/24 aerosol inhaler (Ventolin HFA) fluticasone propionate 50 2 spray intranasal DAILY 12/01/20 12/13/24 mcg/actuation nasal spray,suspension blood pressure test kit-large #1 ea 12/19/20 12/13/24 topiramate 50 mg tablet 50 mg PO BID 12/19/20 12/13/24 cholecalciferol (vitamin D3) 50 50 mcg PO DAILY 03/13/22 12/13/24 mcg (2,000 unit) capsule metformin 500 mg tablet,extended 500 mg PO DAILY@1700 07/01/22 12/13/24 release 24 hr metoprolol succinate 50 mg 50 mg PO DAILY 07/01/22 12/13/24 tablet,extended release 24 hr tramadol 50 mg tablet 50 mg PO Q8H PRN severe pain 10/24/22 12/13/24 metronidazole 0.75 % topical gel 1 appl topical DAILY PRN Rash 10/25/22 12/13/24 albuterol sulfate 2.5 mg/3 mL 2.5 mg inhalation Q4-6H PRN 11/15/22 12/13/24 (0.083 %) solution for nebulization Wheezing fluticasone propionate 110 2 puff inhalation BID 11/13/23 12/13/24 mcg/actuation HFA aerosol inhaler famotidine 40 mg tablet 40 mg PO BEDTIME PRN heartburn 02/13/24 12/13/24 benzoyl peroxide 10 % topical 1 appl topical DAILY 11/08/24 12/13/24 cleanser econazole nitrate 1 % topical cream 1 appl topical BID 11/08/24 12/13/24 emtricitabine 200 mg-tenofovir 1 tab PO DAILY 11/08/24 12/13/24 disoproxil fumarate 300 mg tablet hydroquinone 4 % topical cream 1 appl topical BID 11/08/24 12/13/24 tirzepatide (weight loss) 2.5 2.5 mg subcut TH 11/08/24 12/13/24 mg/0.5 mL subcutaneous pen injector (Zepbound) nitroglycerin 0.4 mg sublingual 0.4 mg sublingual Q5M PRN 12/13/24 12/13/24 tablet Previous Rx's ?Medication ?Instructions ?Recorded isosorbide mononitrate 60 mg 60 mg PO DAILY #30 tabs 02/12/24 tablet,extended release 24 hr pyridoxine (vitamin B6) 100 mg 100 mg PO DAILY 90 days #90 tabs 03/25/24 tablet amlodipine 5 mg tablet (Norvasc) 5 mg PO DAILY #90 tabs 11/09/24 hydrochlorothiazide 12.5 mg tablet 12.5 mg PO DAILY #90 tabs 11/19/24 omeprazole 20 mg capsule,delayed 40 mg (2 x 20 mg) PO DAILY #60 caps 11/19/24 release aspirin 81 mg tablet,delayed 81 mg PO DAILY #90 tabs 12/13/24 release atorvastatin 80 mg tablet (Lipitor) 80 mg PO BEDTIME #90 tabs 12/13/24 ezetimibe 10 mg tablet 10 mg PO DAILY #90 tabs 12/13/24 lisinopril 20 mg tablet 20 mg PO DAILY #90 tabs 12/13/24 allopurinol 100 mg tablet 100 mg PO DAILY 90 days #90 tabs 12/20/24 bisacodyl 5 mg tablet,delayed 20 mg (4 x 5 mg) PO ONCE 12/23/24 release (Dulcolax (bisacodyl)) colonoscopy prep 1 day #4 tabs polyethylene glycol 3350 17 238 g PO ONCE colonoscopy prep 1 12/23/24 gram/dose oral powder (Miralax) day #238 grams Allergies Allergy/AdvReac Type Severity Reaction Status Date / Time penicillin G [PENICILLIN G] Allergy Severe DIFFICULTY Verified 12/31/24 13:35 BREATHING semaglutide [From Ozempic] AdvReac Severe Stomach Verified 12/31/24 13:35 Upset PMFSH Past Medical History Medical History Morbid obesity Hidradenitis suppurativa CAD (coronary artery disease) Subsequent non-ST elevation myocardial infarction (NSTEMI) within 4 weeks of initial infarction Non-ST elevation [place] (NSTEMI) YAMILETH on CPAP Hyperlipidemia PTSD (post-traumatic stress disorder) Fatty liver Smoker Depression Obesity Leukocytosis Frequent UTI Asthma Mass of throat Chronic pain Kidney stone Migraine HTN (hypertension) Surgical History H/O excision of mass (06/28/24) Hx of cystoscopy Stented coronary artery History of heart artery stent History of lumpectomy of left breast (10/22/21) History of lithotripsy History of endometrial ablation Hx of colonoscopy History of breast lump/mass excision History of tonsillectomy H/O: hysterectomy Family History Family History Father Hypertension Mother Hypertension Osteoporosis Hx of bilateral cataract extraction Paternal Grandmother Diabetes Sister Asthma Maternal Uncle Throat cancer Maternal Aunt Ovarian cancer Breast cancer Social History Social History Household Members: Family Housing: Apartment Are you a primary career representative to a significant other at home: No Do you presently have visiting nurse or other home services: Yes (talent manager services) Alcohol intake: never Comment: pt refusing alarms Patient Tobacco Use Status: Current everyday Tobacco user Tobacco use type: Cigarette Cigarette Packs Per Day: 0.5 Cigarettes Per Day: 10 Years Smoked: 30 e-Cigarette/Vaping Use: Never Used Second Hand Smoke Exposure: No Advance Directives Date on File: 10/28/22 service: No Current occupational status: unemployed and retired Physical Exam ED Vital Signs: Vital Signs - 24 hr 12/28/24 20:09 Temperature 97.8 F Pulse Rate 74 Respiratory Rate 20 Blood Pressure 103/54 L Pulse Oximetry 95 Oxygen Delivery Method Room Air BMI result Body Mass Index 50.9 Course Course Course Narrative: This is a rapid medical exam performed by Shena Alegre NP: Additional HPI, ROS, PE not included below will be deferred to primary provider. Patient is a 49-year-old female presenting with complaint of severe headache and mass to occipital area x 3 days. Palpable 2-3cm tender mass to occipital area. Plan: labs, CT head Medical Decision Making Lab Data 12/28/24 20:25 12/28/24 20:25 Labs: Lab Results 12/28/24 Range/Units 20:25 WBC 12.3 H (4.8-10.8) X10*3/uL RBC 3.68 L (4.20-5.50) X10*6/uL Hgb 11.6 L (12.0-16.0) g/dl Hct 33.5 L (37.0-47.0) % MCV 91.0 (80.0-98.0) fL MCH 31.5 (27.0-33.0) pg MCHC 34.6 (31.0-35.0) g/dl RDW 14.1 (11.0-16.0) % Plt Count 262 (160-400) X10*3/uL MPV 9.3 L (9.4-12.3) fL Immature Gran % (Auto) 0.4 (0.0-0.4) % Neut % (Auto) 56.5 (45-73) % Lymph % (Auto) 32.1 (20-40) % [place] % (Auto) 7.6 (2-11) % Eos % (Auto) 2.7 (0-4) % Baso % (Auto) 0.7 (0-2) % Lymph # (Auto) 4.0 (1.2-4.9) X10*3/uL [place] # (Auto) 0.9 (0.1-1.2) X10*3/uL Eos # (Auto) 0.3 (0.0-0.4) X10*3/uL Baso # (Auto) 0.1 (0.0-0.2) X10*3/uL Abs Immat Gran (auto) 0.05 H (0.00-0.03) X10*3/uL Absolute Neuts (auto) 7.0 (2.0-8.3) x10*3/uL Absolute Nucleated RBC 0.000 (0.0-0.012) X10*3/uL Nucleated RBC % (auto) 0.0 (0.0-0.2) /100WBC Sodium 141 (135-145) mmol/L Potassium 4.0 (3.3-5.1) mmol/L Chloride 108 (96-108) mmol/L Carbon Dioxide 24 (22-29) mmol/L Anion Gap 13 (12-20) BUN 19 H (9-16) mg/dL Creatinine 0.81 (0.5-1.4) mg/dL Estim Creat Clear Calc 132.9 Estimated GFR > 60 Random Glucose 106 (60-115) mg/dL Calcium 9.1 (8.4-10.2) mg/dL Total Bilirubin 0.3 (0.0-1.0) mg/dL AST 28 (5-31) U/L ALT 16 (0-31) U/L Alkaline Phosphatase 80 (39-117) U/L Total Protein 7.2 (6.5-8.0) g/dL Albumin 3.5 (3.5-5.0) g/dL Discharge Plan Discharge Clinical Impression: Occipital mass Patient Disposition: Left W/O Completing Treatment Prescriptions: No Action omeprazole 20 mg capsule,delayed release(DR/EC) 40 mg PO DAILY Qty: 60 5RF hydrochlorothiazide 12.5 mg tablet 12.5 mg PO DAILY Qty: 90 4RF allopurinol 100 mg tablet 100 mg PO DAILY 90 Days Qty: 90 1RF bisacodyl [Dulcolax (bisacodyl)] 5 mg tablet,delayed release (DR/EC) 20 mg PO ONCE 1 Days Qty: 4 0RF Rx Instructions: the day before colonoscopy take 2 pills at 12pm and 2 pills at 5pm with plenty of water polyethylene glycol 3350 [Miralax] 17 gram/dose powder 238 g PO ONCE 1 Days Qty: 238 0RF Rx Instructions: THE DAY BEFORE your procedure mix entire bottle with 64 ounces of Gatorade- no red, blue or purple. AT 5PM Start drinking 1 cup every 15minutes until half is gone. Continue drinking plenty of clear liquids. AT 10PM Finish drinking remaining prep. albuterol sulfate [Ventolin HFA] 90 mcg/actuation HFA aerosol inhaler 2 puff PO Q4-6H PRN (Reason: Wheezing) fluticasone propionate 50 mcg/actuation spray,suspension 2 spray intranasal DAILY metformin 500 mg tablet extended release 24 hr 500 mg PO DAILY@1700 metronidazole 0.75 % gel 1 appl topical DAILY PRN (Reason: Rash) famotidine 40 mg tablet 40 mg PO BEDTIME PRN (Reason: heartburn) hydroquinone 4 % cream 1 appl topical BID benzoyl peroxide 10 % cleanser 1 appl topical DAILY emtricitabine-tenofovir (TDF) 200-300 mg tablet 1 tab PO DAILY econazole nitrate 1 % cream 1 appl topical BID Zepbound 2.5 mg/0.5 mL pen injector 2.5 mg subcut TH amlodipine [Norvasc] 5 mg tablet 5 mg PO DAILY Qty: 90 0RF topiramate 50 mg tablet 50 mg PO BID (DME) blood pressure test kit-large Kit See Rx Instructions .ROUTE DIRECTED Qty: 1 Rx Instructions: As directed tramadol 50 mg tablet 50 mg PO Q8H PRN (Reason: severe pain) cholecalciferol (vitamin D3) 50 mcg (2,000 unit) capsule 50 mcg PO DAILY metoprolol succinate 50 mg tablet extended release 24 hr 50 mg PO DAILY fluticasone propionate 110 mcg/actuation HFA aerosol inhaler 2 puff inhalation BID nitroglycerin 0.4 mg tablet, sublingual 0.4 mg sublingual Q5M PRN Rx Instructions: do not exceed 3 doses per episode atorvastatin [Lipitor] 80 mg tablet 80 mg PO BEDTIME Qty: 90 3RF ezetimibe 10 mg tablet 10 mg PO DAILY Qty: 90 3RF aspirin 81 mg tablet,delayed release (DR/EC) 81 mg PO DAILY Qty: 90 3RF lisinopril 20 mg tablet 20 mg PO DAILY Qty: 90 3RF Rx Instructions: dose reduced albuterol sulfate 2.5 mg /3 mL (0.083 %) solution for nebulization 2.5 mg inhalation Q4-6H PRN (Reason: Wheezing) isosorbide mononitrate 60 mg tablet extended release 24 hr 60 mg PO DAILY Qty: 30 5RF Rx Instructions: Dose increased pyridoxine (vitamin B6) 100 mg tablet 100 mg PO DAILY 90 Days Qty: 90 3RF Discharge Date/Time: 12/28/24 23:32
[2024-12-28 20:33] LABS: Basophils Absolute Auto 0.1 X10*3/uL (0.0-0.2); Basophils Percent Auto 0.7 % (0-2); Eosinophils Absolute Auto 0.3 X10*3/uL (0.0-0.4); Eosinophils Percent Auto 2.7 % (0-4); Hematocrit 33.5 % (37.0-47.0); Hemoglobin 11.6 g/dl (12.0-16.0); Imm Gran Abs Auto 0.05 X10*3/uL (0.00-0.03); Imm Gran Pct Auto 0.4 % (0.0-0.4); Lymphocytes Percent Auto 32.1 % (20-40); Mean Corpuscular HGB Conc 34.6 g/dl (31.0-35.0); Mean Corpuscular Hemoglobin 31.5 pg (27.0-33.0); Mean Platelet Volume 9.3 fL (9.4-12.3); Monocytes Absolute Auto 0.9 X10*3/uL (0.1-1.2); Monocytes Percent Auto 7.6 % (2-11); Neutrophils Percent Auto 56.5 % (45-73); Platelet Count 262 X10*3/uL (160-400); Red Blood Count 3.68 X10*6/uL (4.20-5.50); Red Cell Distribution Width 14.1 % (11.0-16.0); White Blood Count 12.3 X10*3/uL (4.8-10.8)
[2024-12-28 20:44] LABS: Alanine Aminotransferase 16 U/L (0-31); Albumin Level 3.5 g/dL (3.5-5.0); Alkaline Phosphatase 80 U/L (39-117); Anion Gap 13 (12-20); Aspartate Amino Transferase 28 U/L (5-31); Bilirubin Total 0.3 mg/dL (0.0-1.0); Blood Urea Nitrogen 19 mg/dL (9-16); Calcium 9.1 mg/dL (8.4-10.2); Carbon Dioxide 24 mmol/L (22-29); Chloride 108 mmol/L (96-108); Creatinine Clr Calc Pharmacy 132.9; Estimated Glomerular Filt Rate > 60; Glucose Random 106 mg/dL (60-115); Sodium 141 mmol/L (135-145); Total Protein 7.2 g/dL (6.5-8.0)
--- OUTSIDE RECORDS SUMMARY | 2024-12-28 20:58 | XMS_ITS | Encounter Summary ---
Author Organization [employer] Address [address] [facility] [address] [place] [address] Care Team Providers Care Claims Customer Service Representative Name Role Phone Carmen Bertrand DO Primary Care Provider [phone] Encounter Details Date Type Department Care Team (Late st Contact Info) Description 09/09/2022 Orders Only [facility] PEDS [address] [place] [address] Carmen Perez LPN Social History Tobacco Use [...] Description 01/24/2025 1:00 PM EDT Clinical Support [facility] MED[facility] [address] [place] [address] 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, RULA documented as of this encounter Visit Diagnoses Not on filedocumented in this encounter Care Teams Claims Customer Service Representative Relationship Specialty Start Date End Date Carmen Bertrand DO [address] [place] [address] PCP - General Family Medicine 08/18/18 documented as of this encounter
--- OUTSIDE RECORDS SUMMARY | 2024-12-28 20:58 | XMS_ITS | Encounter Summary ---
Author Organization [employer] Address [address] [facility] [address] [place] [address] Care Team Providers Care Instrument/Control Technician Name Role Phone Carmen Bertrand DO Primary Care Provider + [phone] Reason for Visit * Reason Comments Med Refill Encounter Details Date Type Department Care Team ([facility] st Contact Info) Description 07/22/2023 Refill [facility] MED & PEDS [address] [place], [place] [id number] Carmen Bertrand DO [address] [facility] [place] [address] Hyperlipidemia, unspecified hyperlipidemia type Social History Tobacco [...] 1:00 PM EDT Clinical Support [facility] MEDICINE [address] [place] [phone] 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 RN documented as of this encounter Visit Diagnoses Diagnosis Hyperlipidemia, unspecified hyperlipidemia type documented in this encounter Additional Health Concerns Assessment Noted Time PHQ-9 Depression Total Score: 21 023 11:26 AM EST documented as of this encounter Care Teams Instrument/Control Technician Relationship Specialty Start Date End Date Carmen Bertrand DO [address] [place] [address] PCP - General Family Medicine 08/18/18 documented as of this encounter
--- OUTSIDE RECORDS SUMMARY | 2024-12-28 20:58 | XMS_ITS | Encounter Summary ---
Author Organization [employer] Address [address] [facility] [address] [place] [address] Care Team Providers Care Sales And Marketing Professional Name Role Phone Carmen Bertrand DO Primary Care Provider + [phone] Reason for Visit * Reason Comments Med Refill Encounter Details Date Type Department Care Team ([facility] st Contact Info) Description 03/16/2024 Refill [facility] CH[facility] MED & PEDS [address] [place], [place] [phone] Carmen Bertrand DO [address] [facility] [place] [address] Chronic low back pain, unspecified back pain [...] 1:00 PM EDT Clinical Support [facility] MEDICINE [address] [place] [address] 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 RN documented as of this encounter Visit Diagnoses Diagnosis Chronic low back pain, unspecified back pain laterality, unspecified whether sciatica present documented in this encounter Additional Health Concerns Assessment Noted Time PHQ-9 Depression Total Score: 21 023 11:26 AM EST documented as of this encounter Care Teams Sales And Marketing Professional Relationship Specialty Start Date End Date Carmen Bertrand DO [address] [place] [address] PCP - General Family Medicine 08/18/18 documented as of this encounter
--- OUTSIDE RECORDS SUMMARY | 2024-12-28 20:58 | XMS_ITS | Encounter Summary ---
Author Organization [employer] Address [address] [facility] [address] [place] [address] Care Team Providers Care Lead Custodian Name Role Phone Carmen Bertrand DO Primary Care Provider + [phone] Reason for Visit * Reason Comments Med Refill Encounter Details Date Type Department Care Team ([facility] Contact Info) Description 10/18/[address] [facility] MEDICINE [address] [place] [address] Carmen Bertrand DO [address] [place] [address] Social History Tobacco Use Types Packs/Day Years [...] Description 01/24/2025 1:00 PM EDT Clinical Support [facility] [address] [place] [address] 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 RN documented as of this encounter Visit Diagnoses Not on filedocumented in this encounter Additional Health Concerns Assessment Noted Time PHQ-9 Depression Total Score: 16 023 12:22 PM EST documented as of this encounter Care Teams Lead Custodian Relationship Specialty Start Date End Date Carmen Bertrand DO [address] [place] [address] PCP - General Family Medicine 08/18/18 documented as of this encounter
--- OUTSIDE RECORDS SUMMARY | 2024-12-28 20:58 | XMS_ITS | Clinical Summary ---
Author Organization [employer] Address [address] [facility] [address] [place] [address] Care Team Providers Care Senior Physician Name Role Phone Carmen Bertrand DO Primary Care Provider + [phone] Allergies Active Allergy Reactions Criticality Noted Date [...] 2025 Active ergocalciferol (Vitamin D2) 1.25 MG (04254 UT) capsule Take 1 capsule (1.25 mg) [...] Encounters Date Type Department Care Team Description 12/28/2024 Orders Only GENERIC EXTERNAL DATA DEPARTMENT Provider, Generic External Data 12/28/2024 Refill [facility] [address] [place] [address] Irina Talley MD Mild persistent asthma without complication 12/13/2024 Orders Only GENERIC EXTERNAL DATA DEPARTMENT Provider, Generic External Data 12/07/2024 Refill [facility] [address] [place] [address] Carmen Bertrand DO Chronic low back pain, unspecified back pain laterality, unspecified whether sciatica present 12/05/2024 Refill [facility] [address] [place] [address] Carmen Bertrand DO 12/05/2024 Refill [facility] [address] [place] [address] Irina Talley MD Melasma 12/03/2024 Refill [facility] [address] [place] [address] Alexandra Lisa MD Acanthosis nigricans 12/01/2024 Telephone [facility] [address] [place] [address] Lisa Rios, RULA Care Coordination 11/30/2024 9:15 AM EDT Office Visit [address] [address] Carmen Bertrand DO Coronary artery disease involving kivalina coronary artery of kivalina heart, unspecified whether angina present (Primary Dx) 11/30/2024 Travel 11/19/2024 Refill [facility] [address] [place] [address] Carmen Bertrand DO 11/12/2024 Patient Outreach [facility] [address] [place] [address] Carmen Bertrand DO Transition Of Care (Tcm) (HDF scheduled. ) 11/12/[address] [address] Carmen Bertrand DO Hospital Follow-up 11/07/2024 Orders Only GENERIC EXTERNAL DATA DEPARTMENT Provider, Generic External Data 11/05/2024 Refill [facility] [address] [place] [address] Carmen Bertrand DO On pre-exposure prophylaxis for HIV 11/04/2024 Refill [facility] [address] [place] [address] Carmen Bertrand DO Chronic low back pain, unspecified back pain laterality, unspecified whether sciatica present 11/01/2024 Telephone [facility] [address] [place] [address] Carmen Bertrand DO telephone call 10/21/2024 1:30 PM EST Clinical Support [facility] [address] [place] [phone] 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, budget analyst bilateral low back pain without sciatica (Primary Dx) 10/21/2024 Travel 10/20/2024 2:30 PM EST Office Visit [facility] [address] [place] [address] Lewis, Tova, OD Presbyopia (Primary Dx); Cup to disc asymmetry, left 10/20/2024 Travel 10/11/2024 Refill [facility] [address] [place] [address] Carmen Bertrand DO Hypertension, unspecified type 10/06/2024 Telephone [facility] [address] [place] [address] Carmen Bertrand DO Prior Authorization 10/06/2024 Refill [facility] [address] [place], [place] [phone] Ирина Mckeon MD Nonintractable headache, unspecified chronicity pattern, unspecified headache type 10/05/2024 Refill [facility] [address] [place], [place] [phone] Carmen Bertrand DO Chronic low back pain, unspecified back pain laterality, unspecified whether sciatica present 10/05/2024 Telephone [facility] [address] [place] [address] Carmen Bertrand DO Nurse Triage 10/05/2024 Refill [facility] [address] [place] [address] Carmen Bertrand DO Mild persistent asthma without complication; Melasma 10/01/2024 Refill [facility] [address] [place] [address] Carmen Bertrand DO 09/30/2024 Orders Only GENERIC [...] Description 01/24/2025 1:00 PM EDT Clinical Support [facility] [address] [place] [phone] 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, RN Health Maintenance Due Date [...] Procedure Name Priority Date/Time Associated Diagnosis Comments COMPREHENSIVE METABOLIC PANEL Routine 12/28/2024 8:25 PM EDT CBC WITH AUTO DIFFERENTIAL Routine 12/28/2024 8:25 PM EDT US RENAL BI Routine 12/22/2024 6:57 PM EDT CULTURE, URINE, ROUTINE Routine 12/13/2024 1:03 PM [...] TROPONIN I Routine 09/30/2024 12:01 AM EST LAB COLOGUARD?? COLON CANCER SCREEN [...] Relevant to Health Maintenance Results * (ABNORMAL) CBC auto differential (12/28/2024 8:25 PM EDT) Only the most recent of2 resultswithin the time period is included. White Blood Count 12.3(H) 4.8 - 10.8 X10*3/uL [facility] Red Blood Count 3.68(L) 4.20 - 5.50 X10*6/uL [facility] Hemoglobin 11.6(L) 12.0 - 16.0 g/dl [facility] Hematocrit 33.5(L) 37.0 - 47.0 % [facility] Mean Corpuscular Volume 91.0 80.0 - 98.0 fL [facility] Mean Corpuscular Hemoglobin 31.5 27.0 - 33.0 pg [facility] Mean Corpuscular HGB Conc 34.6 31.0 - 35.0 g/dl [facility] Red Cell Distribution Width 14.1 11.0 - 16.0 % [facility] Platelet Count 262 160 - 400 X10*3/uL [facility] Mean Platelet Volume 9.3(L) 9.4 - 12.3 fL [facility] Neutrophils Percent Auto 56.5 45 - 73 % [facility] Imm Gran Pct Auto 0.4 0.0 - 0.4 % [facility] Lymphocytes Percent Auto 32.1 20 - 40 % [facility] Monocytes Percent Auto 7.6 2 - 11 % [facility] Eosinophils Percent Auto 2.7 0 - 4 % [facility] Basophils Percent Auto 0.7 0 - 2 % [facility] NRBC Pct Auto 0.0 0.0 - 0.2 /100WBC [facility] Neutrophils Absolute Auto 7.0 2.0 - 8.3 x10*3/uL [facility] Imm Gran Abs Auto 0.05(H) 0.00 - 0.03 X10*3/uL [facility] Lymphocytes Absolute Auto 4.0 1.2 - 4.9 X10*3/uL [facility] Monocytes Absolute Auto 0.9 0.1 - 1.2 X10*3/uL [facility] Eosinophils Absolute Auto 0.3 0.0 - 0.4 X10*3/uL [facility] Basophils Absolute Auto 0.1 0.0 - 0.2 X10*3/uL [facility] NRBC Abs Auto 0.000 0.0 - 0.012 X10*3/uL [facility] 12/28/2024 8:25 PM EDT 12/28/2024 8:27 PM EDT us Generic External Data Provider LAB BLOOD ORDERAB LES Final Result [facility] [address] [place] [address] [phone] * (ABNORMAL) Comprehensive Metabolic Panel (12/28/2024 8:25 PM EDT) Only the most recent of2 resultswithin the time period is included. Sodium 141 135 - 145 mmol/L [facility] Potassium 4.0 3.3 - 5.1 mmol/L [facility] Chloride 108 96 - 108 mmol/L [facility] Carbon Dioxide 24 22 - 29 mmol/L [facility] Anion Gap 13 12 - 20 [facility] Urea Nitrogen (BUN) 19(H) 9 - 16 mg/dL [facility] Creatinine, Serum 0.81 0.5 - 1.4 mg/dL [facility] Creatinine Clr Calc Pharmacy 132.9 [facility] Comment:Provided height and weight: 172.72 cm,151.953 kg.eGFR (calculated from the MDRD study equation) and eCrCl(calculated from the Cockcroft-Gault equation) are based ondifferent parameters and may not yield comparable results.If eCrCl result is absurd, please check patient'sheight/weight. Estimated Glomerular Filt Rate >60 [facility] Comment:Chronic Kidney Disea se: Estimated GFR < 60 mL/min/1.15a6Gwowrr Kidney Disease: Estimated GFR < 15 mL/min/1.73m2 Glucose 106 60 - 115 mg/dL [facility] Calcium 9.1 8.4 - 10.2 mg/dL [facility] Bilirubin, Total 0.3 0.0 - 1.0 mg/dL [facility] Aspartate Amino Transferase 28 5 - 31 U/L [facility] Alanine Aminotransferase 16 0 - 31 U/L [facility] Total Protein 7.2 6.5 - 8.0 g/dL [facility] Albumin Level 3.5 3.5 - 5.0 g/dL [facility] Alkaline Phosphatase 80 39 - 117 U/L [facility] 12/28/2024 8:25 PM EDT 12/28/2024 8:27 PM EDT us Generic External Data Provider LAB BLOOD ORDERAB LES Final Result [facility] [address] [place] [address] [phone] * US RENAL BI (12/22/2024 6:57 PM EDT) Anatomical Region Laterality Modality Abdomen Ultrasound 12/22/2024 6:57 PM EDT Narrative 12/22/2024 6:58 PM EDT ? [facility] ?[address] ?[place] [address] ? Ultrasound Report ? Signed ? Patient: Blaire Quiroz ?MR#: M ?? [id number] ? : 1975 ?Acct:[id number] ? Age/Sex: 49 / F ?ADM Date: 05/07/25 ? Loc: HO.US ? Attending Dr: Ricardo Lepe MD ? Ordering Physician: Ricardo Lepe MD ?? Date of Service: 12/22/24 ?? Procedure(s): US renal BI ?? Accession Number(s): [id number] ? cc: Ricardo Lepe MD; Carmen Bertrand DO ? CLINICAL HISTORY: N13.30 - Unspecified hydronephrosis ? US kidneys and bladder ? Comparison: None ? Findings: ? Right kidney 10.3 cm length. ?? 2 mm and 3 mm stones. ?? No significant hydronephrosis. ?? Left kidney 11.8 cm length. ?? Mild left hydronephrosis. ?? 3 mm stones. ? Small bilateral renal cysts. ?? Normal bilateral renal echogenicity. ? Bladder is empty and not assessed. ?? Bilateral ureteral jets not visualized. ? Impression: ? Small bilateral nonobstructing stones. ? Mild left hydronephrosis. ? This document has been electronically signed by: Art Calvo MD on ?? 12/22/2024 18:57:56 ? Dictated By: ?Art Calvo MD ? Signed By: ?<Electronically signed by Art Calvo MD in OV> ? 12/22/248 ? DD/ 56 ? TD/TT: 12/22/241856 ? Film Loader: ? Procedure Note Dawna Lora - 12/22/2024 [place] [address] Ultrasound Report Signed Patient: Christianne Quiroz#: M [id number] : 1975Acct:[id number] Age/Sex: 49 / FADM Date: 12/22/24 Loc: HO.US Attending Dr: Ricardo Lepe MD Ordering Physician: Rciardo Lepe MD Date of Service: 12/22/24 Procedure(s): US renal BI Accession Number(s): [id number] cc: Ricardo Lepe MD; Carmen Bertrand DO CLINICAL HISTORY: N13.30 - Unspecified hydronephrosis US kidneys and bladder Comparison: None Findings: Right kidney 10.3 cm length. 2 mm and 3 mm stones. No significant hydronephrosis. Left kidney 11.8 cm length. Mild left hydronephrosis. 3 mm stones. Small bilateral renal cysts. Normal bilateral renal echogenicity. Bladder is empty and not assessed. Bilateral ureteral jets not visualized. Impression: Small bilateral nonobstructing stones. Mild left hydronephrosis. This document has been electronically signed by: Art Calvo MD on 12/22/2024 18:57:56 Dictated By: Art Calvo MD Signed By: <Electronically signed by Art Calvo MD in OV> 12/22/241857 DD/ 56 TD/TT: 12/22/241856 Film Loader: us [facility] External Provider IMG US PROCEDURES Final Result * Culture, Urine, Routine (12/13/2024 1:03 PM EDT) Urine Urine specimen obtained by clean catch procedure / Unknown 12/13/2024 1:03 PM EDT 12/13/2024 5:13 PM EDT Comment:UACC Narrative [facility] - 12/15/2024 11:24 AM EDT Urine Culture No growth. Specimen Source: Urine clean catch us Generic External Data Provider LAB MICROBIOLOGY - GENERAL ORDERABLES Final Result Performing Organization Address City/State/[facility] Co de Phone Number [facility] [address] [place] [address] [phone] * NM heart perfusion SPECT stress and rest (11/08/2024 9:19 AM EDT) Anatomical Region Laterality Modality Body Nuclear Medicine 11/08/2024 9:19 AM EDT Narrative 11/09/2024 12:33 PM EDT ? [facility] ?[address] ?[place] [address] ?Nuclear Medicine Report ? Signed ? Patient: Maria Luisa LiurahulBlaire ?MR#: M ?? [id number] ? : 1975 ?Acct:[id number] ? Age/Sex: 49 / F ?ADM Date: 03/23/25 ? Loc: HO.IMC ?475-1 ? Attending Dr: Gregg Chavez MD ? Ordering Physician: Mars Hutchinson MD ?? Date of Service: 11/08/24 ?? Procedure(s): NM andrew perf SPECT rest ?? str ?? Accession Number(s): [id number] ? cc: Carmen Bertrand DO; Mars Hutchinson [...] DD/ 0919 ? TD/TT: 11/09/24 0955 ? Film Loader: ? Procedure Note Donotuseinterpreter, Image - 11/09/2024 [place] [address] Nuclear Medicine Report Signed Patient: Blaire Quiroz#: M [id number] : 1975Acct:[id number] Age/Sex: 49 / FADM Date: 11/07/24 Loc: [facility] 475-[address]: Gregg Chavez MD Ordering Physician: Mars Hutchinson MD Date of Service: 11/08/24 Procedure(s): NM andrew perf SPECT rest str Accession Number(s): [id number] cc: Carmen Bertrand DO; Mars Hutchinson MD [...] 11/09/24 1231 DD/ 0919 TD/TT: 11/09/24 0955 Film Loader: [facility] External Provider IMG NM PROCEDURES Edited Result - Final * (ABNORMAL) High Sensitivity Troponin I (11/07/2024 7:34 PM EDT) Only the most recent of3 resultswithin the time period is included. TROPONIN I HIGH SENSITIVITY 85.7(HH) <3.5 - 17.0 ng/L [facility] Comment:Critical value for t est(s): HS-TNI Results called to rickie back by:ROSANNE Person calling:ALKAAB Date: 11/07/2024Time:20:02.[facility] high sensitivity Troponin-I results should beused in conjunction with other diagnostic information suchas ECG, clinical observations and information, and patientsymptoms to aid in the diagnosis of PA. 11/07/2024 7:34 PM EDT 11/07/2024 7:37 PM EDT Generic External Data Provider LAB BLOOD ORDERAB LES Final Result [facility] [address] [place] [phone] * (ABNORMAL) Partial Thromboplastin Time, Activated (APTT) (11/07/2024 7:34 PM EDT) Partial Thromboplastin Time 36.9(H) 26.0 - 36.8 SEC [facility] Comment:For information rega rding the monitoring of direct thrombininhibitors, please refer to Pharmacy. 11/07/2024 7:34 PM EDT 11/07/2024 7:37 PM EDT us Generic External Data Provider LAB BLOOD ORDERAB LES Final Result [facility] [address] [place] [address] [phone] * CT Abdomen Pelvis w/o Contrast (11/07/2024 7:25 PM EDT) Anatomical Region Laterality Modality Body, Pelvis, Abdomen Computed T omography 11/07/2024 7:25 PM EDT Narrative 11/07/2024 7:26 PM EDT ? [facility] ?[address] ?[place] [address] ? CT Scan Report ? Signed ? Patient: Blaire Quiroz ?MR#: M ?? [id number] ? : 1975 ?Acct:[id number] ? Age/Sex: 49 / F ?ADM Date: 11/07/24 ? Loc: HO.ED ? Attending Dr: ? Ordering Physician: Marco Lugo MD ?? Date of Service: 11/07/24 ?? Procedure(s): CT abdomen pelvis wo IV con ?? Accession Number(s): [id number] ? cc: Carmen Bertrand DO; Marco Lugo MD ? Report Number: ?? [id number]: Total DLP = 1392.00 mGy-cm ? CLINICAL HISTORY: left flank pain ? CT abdomen and pelvis without contrast ? Comparison: DX - XR HIP RT MIN 2V - 09/17/24 11:03 EST ?? US/SR - US ABDOMEN COMPLETE - 05/07/24 09:08 EDT ?? CT/CO/SR - CT ABDOMEN PELVIS WO IV CON [...] signed by Mahad Pearl MD in OV> ?11/07/245 ? DD/ 24 ? TD/TT: 11/07/241924 ? Film Loader: ? Procedure Note Geno, Image - 11/07/[address] [place] [address] [address] Scan Report Signed Patient: Christianne Quiroz#: M [id number] : 1975Acct:[id number] Age/Sex: 49 / FADM Date: 11/07/24 Loc: HO.ED Attending Dr: Ordering Physician: Marco Lugo MD Date of Service: 11/07/24 Procedure(s): CT abdomen pelvis wo IV con Accession Number(s): [id number] cc: Carmen Bertrand DO; Marco Lugo MD Report Number: [id number]: Total DLP = 1392.00 mGy-cm CLINICAL HISTORY: left flank pain CT abdomen and pelvis without contrast Comparison: DX - XR HIP RT MIN 2V - 09/17/24 11:03 EST US/SR - US ABDOMEN COMPLETE - 05/07/24 09:[address]/CO/SR - CT ABDOMEN PELVIS WO IV CON [...] in OV> 11/07/241924 DD/ 24 TD/TT: 11/07/241924 Film Loader: [facility] External Provider IMG CT PROCEDURES Edited Result - Final * XR Chest 1 View (11/07/2024 6:43 PM EDT) Anatomical Region Laterality Modality Chest Radiographic Alejandrina ging 11/07/2024 6:43 PM EDT Narrative 11/07/2024 6:45 PM EDT ? [facility] ?[address] ?[place] [address] ?XRay Report ? Signed ? Patient: Maria Luisa Jean,Blaire ?MR#: M ?? [id number] ? : 1975 ?Acct:[id number] ? Age/Sex: 49 / F ?ADM Date: 03/23/25 ? Loc: HO.ED ? Attending Dr: ? Ordering Physician: Marco Lugo MD ?? Date of Service: 11/07/24 ?? Procedure(s): XR chest 1V ?? Accession Number(s): [id number] ? cc: Carmen Bertrand DO; Marco Lugo MD ? CLINICAL HISTORY: Chest pain ? 1 view chest x-ray ? Comparison: CR/CO/SR - XR CHEST 1V - 11/11/23 18:01 [...] ? DD/ 42 ? TD/TT: 11/07/241842 ? Film Loader: ? Procedure Note Mishanery, Image - 11/07/2024 [place] [address] XRay Report Signed Patient: Blaire QuirozMR#: M [id number] : 1975Acct:[id number] Age/Sex: 49 / FADM Date: 11/07/24 Loc: HO.ED Attending Dr: Ordering Physician: Marco Lugo MD Date of Service: 11/07/24 Procedure(s): XR chest 1V Accession Number(s): [id number] cc: Carmen Bertrand DO; Marco Lugo MD CLINICAL HISTORY: Chest pain 1 view chest x-ray Comparison: CR/CO/SR - XR CHEST 1V - 11/11/23 18:01 EDT Findings: No consolidation or effusion. Heart size is normal. No acute fracture. IMPRESSION: 1. No acute findings. This document has been electronically signed by: Mahad Pearl MD on 11/07/2024 18:43:58 Dictated By: Mahad Pearl MD Signed By: <Electronically signed by Mahad Pearl MD in OV> 11/07/241843 DD/ 42 TD/TT: 11/07/241842 Film Loader: [facility] External Provider IMG XR PROCEDURES Edited Result - Final * Magnesium (11/07/2024 4:29 PM EDT) Magnesium 1.7 1.6 - 2.6 mg/dL [facility] 11/07/2024 4:29 PM EDT 11/07/2024 4:33 PM EDT us Generic External Data Provider LAB BLOOD ORDERAB LES Final Result Performing Organization Address [facility]/ZIP Co de Phone Number [facility] [address] [place] [phone] * Lipase (11/07/2024 4:29 PM EDT) Lipase 11 8 - 78 U/L [facility] 11/07/2024 4:29 PM EDT 11/07/2024 4:33 PM EDT Generic External Data Provider LAB BLOOD ORDERAB LES Final Result Performing Organization Address [facility] Co de Phone Number [facility] [address] [place] [phone] * POCT ANALISA-14 Urine Drug Screen (10/21/2024 2:02 PM EST) Urine Urine specimen obtained by clean catch procedure / Unknown 10/21/2024 2:02 PM EST Narrative 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, RN - 10/21/2024 2:02 PM EST UTOX cup Lot#[id number] Exp. 04/06/26 Internal Pass Control UTOX Negative for all substances. us Carmen Bertrand DO POINT OF CARE TEST ENTER/LANEY T ORDERABLES Final Result * Optic Disc Photos - OU - Both Eyes (10/20/2024 2:30 PM EST) Narrative Tova Saucedo, OD - 11/05/2024 10:00 AM EDT Right [...] - 11/05/2024 9:58 AM EDT Erroneous order us Tova Saucedo OD OPHTH PHOTOGRAPHY Final Resul t * (ABNORMAL) Cologuard?? colon cancer screening (08/31/2024 10:33 AM EST) Cologuard Result Positive( A) Negative 09/07/2024 10:16 AM EST [facility] (CLIA #:[id number]) Comment: POSITIVE TEST RESULT. A positive Cologuard [...] (Ashleigh Zhou al, N Engl J Med 2014;370(14):6106-9773.) Cologuard may produce a false negative or false positive result (no colorectal cancer or precancerous polyp present at colonoscopy follow up). A negative Cologuard test result does not guarantee the absence of CRC or advanced adenoma (pre-cancer). The current Cologuard screening interval is every 3 years. ([place] [employer] Society and U.S. Multi-Society Task Force). Cologuard performance data in a 10,000 patient pivotal study using colonoscopy as the reference method can be accessed at the following location: www.[email or web address]/results. Additional description of the Cologuard test process, warnings and precautions can be found at www.cologuard.com. Stool specimen (specimen) 08/31/2024 10:33 AM EST 09/01/2024 11:06 AM EST Carmen Bertrand DO LAB MOLECULAR DIAGNOSTICS OR DERABLES Final Result [facility] (CLIA #:[id number]) [place] [address] [place] [address], * Hemoglobin A1c (08/24/2024 11:57 AM EST) Hemoglobin A1c 6.0 <6.0 % [facility] Comment:Hemoglobin A1C Refer ence Range Adults: 4.8 - 6.0 % Non diabetic: < 6.0 % Goal: < 7.0 %Additional Action Suggested: > 8.0 %Note: Hemoglobin A1c results are invalid for patients with abnormal amounts of HbF. Blood transfusions may impact the HbA1c concentration in the patient sample. Estimated Average Glucose 126 mg/dL [facility] Comment:eAG = Estimated ave rage glucose which is %A1C expressed asaverage glucose, using the formula of the H6Y-NrioqqcLzfoquf Glucose study (ADAG), Diabetes Care, Vol.31,#8,Mar. 2007 Blood Venous blood specimen / Unknown 08/24/2024 11:57 AM EST 08/24/2024 1:03 PM EST Carmen Elza DO LAB BLOOD ORDERABLES Final R esult Performing Organization Address City/[facility]/ZIP Co de Phone Number [facility] [address] [place] [phone] * (ABNORMAL) Lipid Panel, Standard (08/24/2024 11:57 AM EST) Triglycerides 82 <150 mg/dL [facility] Comment:Desirable Triglyceri de: less than 150 mg/dLBorderline High Triglyceride 150-199 mg/dLHigh Triglyceride: 200-499 mg/dLVery High Triglyceride: greater than or equal to 5OO mg/dL Cholesterol 136 <200 mg/dL [facility] Comment:Desirable Cholestero l: less than 200 mg/dLBorderline High Cholesterol: 200-239 mg/dLHigh Cholesterol: greater than 239 mg/dL LDL Cholesterol Calculated 81 <100 mg/dL [facility] Comment:Desirable LDL: less than 100 mg/dLNear Optimal/Above Optimal LDL: 110- 129 mg/dLBorderline High LDL: 130-159 mg/dLHigh LDL: 160-189 mg/dLVery High LDL: greater than or equal to 190 mg/dL HDL Cholesterol 39(L) >40 mg/dL [facility] Comment:Desirable HDL: great er than 40 mg/dL Note: This HDL assay may give artificially low results in patients with liver disease. Blood Venous blood specimen / Unknown 08/24/2024 11:57 AM EST 08/24/2024 1:03 PM EST Carmen Bertrand DO LAB BLOOD ORDERABLES Final R esult [facility] [address] [place] [phone] * BI US Breast Limited Bilateral (06/02/2024 2:00 PM EDT) Anatomical Region Laterality Modality Breast Bilateral Ultrasound 06/02/2024 2:00 PM EDT Narrative 06/03/2024 8:44 AM EDT ? [facility] ? [address] ?[place] [address] ? Ultrasound Report ? Signed ? Patient: Maria Luisa Jean,Blaire ?MR#: M ?? [id number] ? : 1975 ?Acct:[id number] ? Age/Sex: 49 / F ?ADM Date: 06/02/24 ? Loc: HO.MAMMO ? Attending Dr: Carmen Bertrand DO ? Ordering Physician: Carmen Bertrand DO ?? Date of Service: 06/02/24 ?? Procedure(s): US breast BI limited mamm only ?? Accession Number(s): [id number] ? cc: Carmen Bertrand DO ? EXAMINATION: [...] ?? benign. ? No suspicious findings. ? US/ breast BI limited mamm only ?? IMPRESSION: [...] DD/ 1400 ? TD/TT: 06/02/24 1454 ? Film Loader: ? Procedure Note Geno, Image - 06/03/2024 [place] [facility] [address] [place] [address] Ultrasound Report Signed Patient: Blaire Quiorz#: M [id number] : 1975Acct:[id number] Age/Sex: 49 / FADM Date: 06/02/24 Loc: HO.MAMMO Attending Dr: Carmen Bertrand DO Ordering Physician: Carmen Bertrand DO Date of Service: 06/02/24 Procedure(s): US breast BI limited mamm only Accession Number(s): [id number] cc: EdilsonzackRaissaCarmen Reno [place] EXAMINATION: US DIAGNOSTIC ULTRASOUND BREAST, BILATERAL CLINICAL [...] 06/03/24 0841 DD/ 1400 TD/TT: 06/02/24 1454 Film Loader: us Carmen Bertrand DO IMG US PROCEDURES Final Resu lt * Hepatitis C Antibody with Reflex to HCV, RNA, Quantitative, Real-Time PCR (04/27/2024 2:02 PM EDT) Pathologist [facility] Hepatitis C Antibody Nonreactive Nonreactive [facility] Comment:Antibodies to HCV no t detected; does not exclude early acuteHCV infection. Blood Venous blood specimen / Unknown 04/27/2024 2:02 PM EDT 04/27/2024 4:01 PM EDT us Carmen Bertrand DO LAB BLOOD ORDERABLES Final R esult [facility] [address] [place] [phone] * HIV Ab/Ag ([facility]) (02/21/2023 2:35 PM EDT) HIV AB/AG Nonreactive Nonreactive [facility] Comment:HIV-1 p24 Ag and/or HIV-1/HIV-2 Ab not detected.A test result that is nonreactive does not exclude thepossibility of exposure to or infection with HIV-1 and/orHIV-2. Nonreactive results in this assay for individualswith prior exposure to HIV-1 and/or HIV-2 may be due toantigen and antibody levels that are below the limit ofdetection of this assay.The [employer] HIV Ag/Ab Combo assay result andsupplemental assay results should be interpreted inconjunction with the patient's clinical presentation,history and other laboratory results. If the results areinconsistent with clinical evidence, additional testing issuggested to confirm the result. 02/21/2023 2:35 PM EDT 02/21/2023 2:37 PM EDT [facility] External Provider LAB BLO OD ORDERABLES Final Result [facility] [address] [place] [address] [phone] from Last 3 Months or Most Recently Relevant to Health Maintenance Insurance [employer] ONE CARE < 65 [place] [id number] [employer] ONE CARE < 65 Care Teams Senior Physician Relationship Specialty Start Date End Date Carmen Bertrand DO [address] [place] [address] PCP - General Family Medicine 08/18/18
--- OUTSIDE RECORDS SUMMARY | 2024-12-28 20:58 | XMS_ITS | Encounter Summary ---
Author Organization [employer] Address 75 [facility] 7t [place] [address] Care Team Providers Care Supervisor Accounting Clerks Name Role Phone Carmen Bertrand Primary Care Provider + [phone] Encounter Details Date Type Department Care Team ([facility] Contact Info) Description 12/28/2024 Orders Only GENERIC EXTERNAL DATA [...] Description 01/24/2025 1:00 PM EDT Clinical Support [address] [address] 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 RN documented as of this encounter Procedures Procedure Name Priority Date/Time Associated Diagnosis Comments CBC WITH AUTO DIFFERENTIAL Routine 12/28/2024 8:25 PM EDT COMPREHENSIVE METABOLIC PANEL Routine 12/28/2024 8:25 PM EDT documented in this encounter Results * (ABNORMAL) Comprehensive Metabolic Panel (12/28/2024 8:25 PM EDT) Sodium 141 135 - 145 mmol/L [facility] Potassium 4.0 3.3 - 5.1 mmol/L [facility] Chloride 108 96 - 108 mmol/L [facility] Carbon Dioxide 24 22 - 29 mmol/L [facility] Anion Gap 13 12 - 20 [facility] Urea Nitrogen (BUN) 19(H) 9 - 16 mg/dL [facility] Creatinine, Serum 0.81 0.5 - 1.4 mg/dL [facility] Creatinine Clr Calc Pharmacy 132.9 [facility] Comment:Provided height and weight: 172.72 cm,151.953 kg.eGFR (calculated from the MDRD study equation) and eCrCl(calculated from the Cockcroft-Gault equation) are based ondifferent parameters and may not yield comparable results.If eCrCl result is absurd, please check patient'sheight/weight. Estimated Glomerular Filt Rate >60 [facility] Comment:Chronic Kidney Disea se: Estimated GFR < 60 mL/min/1.03v5Ofzuzb Kidney Disease: Estimated GFR < 15 mL/min/1.73m2 Glucose 106 60 - 115 mg/dL [facility] Calcium 9.1 8.4 - 10.2 mg/dL [facility] Bilirubin, Total 0.3 0.0 - 1.0 mg/dL [facility] Aspartate Amino Transferase 28 5 - 31 U/L [facility] Alanine Aminotransferase 16 0 - 31 U/L [facility] Total Protein 7.2 6.5 - 8.0 g/dL [facility] Albumin Level 3.5 3.5 - 5.0 g/dL [facility] Alkaline Phosphatase 80 39 - 117 U/L [facility] 12/28/2024 8:25 PM EDT 12/28/2024 8:27 PM EDT us Generic External Data Provider LAB BLOOD ORDERAB LES Final Result [facility] [address] [place] [phone] * (ABNORMAL) CBC auto differential (12/28/2024 8:25 PM EDT) White Blood Count 12.3(H) 4.8 - 10.8 X10*3/uL [facility] Red Blood Count 3.68(L) 4.20 - 5.50 X10*6/uL [facility] Hemoglobin 11.6(L) 12.0 - 16.0 g/dl [facility] Hematocrit 33.5(L) 37.0 - 47.0 % [facility] Mean Corpuscular Volume 91.0 80.0 - 98.0 fL [facility] Mean Corpuscular Hemoglobin 31.5 27.0 - 33.0 pg [facility] Mean Corpuscular HGB Conc 34.6 31.0 - 35.0 g/dl [facility] Red Cell Distribution Width 14.1 11.0 - 16.0 % [facility] Platelet Count 262 160 - 400 X10*3/uL [facility] Mean Platelet Volume 9.3(L) 9.4 - 12.3 fL [facility] Neutrophils Percent Auto 56.5 45 - 73 % [facility] Imm Gran Pct Auto 0.4 0.0 - 0.4 % [facility] Lymphocytes Percent Auto 32.1 20 - 40 % [facility] Monocytes Percent Auto 7.6 2 - 11 % [facility] Eosinophils Percent Auto 2.7 0 - 4 % [facility] Basophils Percent Auto 0.7 0 - 2 % [facility] NRBC Pct Auto 0.0 0.0 - 0.2 /100WBC [facility] Neutrophils Absolute Auto 7.0 2.0 - 8.3 x10*3/uL [facility] Imm Gran Abs Auto 0.05(H) 0.00 - 0.03 X10*3/uL [facility] Lymphocytes Absolute Auto 4.0 1.2 - 4.9 X10*3/uL [facility] Monocytes Absolute Auto 0.9 0.1 - 1.2 X10*3/uL [facility] Eosinophils Absolute Auto 0.3 0.0 - 0.4 X10*3/uL [facility] Basophils Absolute Auto 0.1 0.0 - 0.2 X10*3/uL [facility] NRBC Abs Auto 0.000 0.0 - 0.012 X10*3/uL [facility] 12/28/2024 8:25 PM EDT 12/28/2024 8:27 PM EDT us Generic External Data Provider LAB BLOOD ORDERAB LES Final Result [facility] [address] [place] [address] [phone] documented in this encounter Visit Diagnoses Not on filedocumented in this encounter Additional Health Concerns Assessment Noted Time PHQ-9 Depression Total Score: 22 024 11:00 AM EDT documented as of this encounter Care Teams Supervisor Accounting Clerks Relationship Specialty Start Date End Date Carmen Bertrand DO [address] [place] [address] PCP - General Family Medicine 08/18/18 documented as of this encounter
--- OUTSIDE RECORDS SUMMARY | 2024-12-28 20:58 | XMS_ITS | Encounter Summary ---
Author Organization [facility] Address [address] [place] [address] 7 [place] [address] Care Team Providers Care Biofuels Product Manager Name Role Phone Carmen Bertrand DO Primary Care Provider [phone] Reason for Visit * Reason Comments Med Refill Encounter Details Date Type Department Care Team (Late st Contact Info) Description 07/29/2022 Refill [facility] [address] [place] [address] Carmen Bertrand DO [address] [place] [address] Social History Tobacco Use Types Packs/Day Years [...] Description 01/24/2025 1:00 PM EDT Clinical Support [facility] [address] [place] [address] 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 RN documented as of this encounter Visit Diagnoses Not on filedocumented in this encounter Care Teams Biofuels Product Manager Relationship Specialty Start Date End Date Carmen Bertrand DO [address] [place] [address] PCP - General Family Medicine 08/18/18 documented as of this encounter
--- OUTSIDE RECORDS SUMMARY | 2024-12-28 20:58 | XMS_ITS | Encounter Summary ---
Author Organization [employer] Address 75 [facility] 7t [place] [address] Care Team Providers Care Operation Shift Supervisor Name Role Phone Carmen Bertrand Primary Care Provider + [phone] Reason for Visit * Reason Comments Med Refill Encounter Details Date Type Department Care Team ([facility] st Contact Info) Description 12/28/2024 Refill [facility] [address] [place] [address] Irina Talley MD [address] [place], [place] [phone] Mild persistent asthma without complication Social History Tobacco Use Types Packs/Day Years [...] PM EDT Clinical Support [facility] [address] [place] [address] 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 RN documented as of this encounter Visit Diagnoses Diagnosis Mild persistent asthma without complication documented in this encounter Additional Health Concerns Assessment Noted Time PHQ-9 Depression Total Score: 22 024 11:00 AM EDT documented as of this encounter Care Teams Operation Shift Supervisor Relationship Specialty Start Date End Date Carmen Bertrand DO [address] [place] [address] PCP - General Family Medicine 08/18/18 documented as of this encounter
--- OUTSIDE RECORDS SUMMARY | 2024-12-28 20:58 | XMS_ITS | Encounter Summary ---
Author Organization [employer] Address 75 [facility] 7t [place] [address] Care Team Providers Care Home Paraprofessional Name Role Phone Carmen Bertrand DO Primary Care Provider [phone] Encounter Details Date Type Department Care Team (Late st Contact Info) Description 08/13/2022 Orders Only [facility] [address] [place] [address] Carmen Perez LPN Social History Tobacco Use [...] Description 01/24/2025 1:00 PM EDT Clinical Support [facility] [address] [place] [address] 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, RULA documented as of this encounter Visit Diagnoses Not on filedocumented in this encounter Care Teams Home Paraprofessional Relationship Specialty Start Date End Date Carmen Bertrand DO [address] [place] [address] PCP - General Family Medicine 08/18/18 documented as of this encounter
--- OUTSIDE RECORDS SUMMARY | 2024-12-28 20:58 | XMS_ITS | Encounter Summary ---
Author Organization [employer] Address 75 [facility] 7t [place] [address] Care Team Providers Care Simulation Tech Name Role Phone Carmen Bertrand Primary Care Provider + [phone] Reason for Visit * Reason Comments Med Refill Encounter Details Date Type Department Care Team ([facility] st Contact Info) Description 03/08/2024 Refill [facility] [address] [place] [address] Rox Sutton MD [address] [place] [address] Pain Social History Tobacco Use Types Packs/Day [...] 01/24/2025 1:00 PM EDT Clinical Support [facility] [address] [place] [address] 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 RN documented as of this encounter Visit Diagnoses Diagnosis Pain Generalized pain documented in this encounter Additional Health Concerns Assessment Noted Time PHQ-9 Depression Total Score: 21 023 11:26 AM EST documented as of this encounter Care Teams Simulation Tech Relationship Specialty Start Date End Date Carmen Bertrand DO [address] [place] [address] PCP - General Family Medicine 08/18/18 documented as of this encounter
--- OUTSIDE RECORDS SUMMARY | 2024-12-28 20:59 | XMS_ITS | Encounter Summary ---
Author Organization [employer] Address 75 [facility] 7t [place] [address] Care Team Providers Care Sales Porter Name Role Phone Carmen Bertrand DO Primary Care Provider + [phone] Reason for Visit * Reason Onset Date Comments Hospital Follow-up 11/12/2024 Encounter Details Date Type Department Care Team ([facility] Contact Info) Description 11/12/2024 Telephone [facility] [address] [place] [address] Carmen Bertrand DO [address] [place] [address] Hospital Follow-up Social History Tobacco Use Types [...] from pt requesting a HDF appt. [facility] [facility] Date of admission: 11/07/2024 Discharge date: 11/12/2024 Diagnosed: heart attack *Send message to [place] Clinical Care Coordinators documented in this encounter Plan of Treatment Upcoming Encounters Date Type Department Care Team (Late st Contact Info) Description 01/24/2025 1:00 PM EDT Clinical Support [facility] [address] [place] [address] 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, RULA documented as of this encounter Visit Diagnoses Not on filedocumented in this encounter Additional Health Concerns Assessment Noted Time PHQ-9 Depression Total Score: 22 024 11:00 AM EDT documented as of this encounter Care Teams Sales Porter Relationship Specialty Start Date End Date Carmen Bertrand DO [address] [place] [address] PCP - General Family Medicine 08/18/18 documented as of this encounter
--- OUTSIDE RECORDS SUMMARY | 2024-12-28 20:59 | XMS_ITS | Encounter Summary ---
Author Organization [employer] Address 75 [facility] 7t [place] [address] Care Team Providers Care Food Service Steward Name Role Phone Carmen Bertrand DO Primary Care Provider + [phone] Reason for Visit * Reason Comments Med Refill Encounter Details Date Type Department Care Team ([facility] st Contact Info) Description 02/24/2024 Refill [facility] [address] [place] [address] Carmen Bertrand DO [address] [place] [address] Social History Tobacco Use Types Packs/Day Years [...] Description 01/24/2025 1:00 PM EDT Clinical Support [facility] [address] [place] [address] 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 RN documented as of this encounter Visit Diagnoses Not on filedocumented in this encounter Additional Health Concerns Assessment Noted Time PHQ-9 Depression Total Score: 21 023 11:26 AM EST documented as of this encounter Care Teams Food Service Steward Relationship Specialty Start Date End Date Carmen Bertrand DO [address] [place] [address] PCP - General Family Medicine 08/18/18 documented as of this encounter
--- OUTSIDE RECORDS SUMMARY | 2024-12-28 20:59 | XMS_ITS | Encounter Summary ---
Author Organization [employer] Address 75 [facility] 7t [place] [address] Care Team Providers Care Impression Printer Name Role Phone Carmen Bertrand DO Primary Care Provider + [phone] Reason for Visit * Reason Comments Med Refill Encounter Details Date Type Department Care Team ([facility] st Contact Info) Description 11/20/[address] [facility] [address] [place] [address] Carmen Bertrand DO [address] [place] [address] Morbid obesity with body mass index (BMI) [...] [facility] [address] [place] [address] 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, RN documented as of this encounter Visit Diagnoses Diagnosis Morbid obesity with body mass index (BMI) of 50.0 to 59.9 in adult (CMS/HCC) documented in this encounter Additional Health Concerns Assessment Noted Time PHQ-9 Depression Total Score: 16 023 12:22 PM EST documented as of this encounter Care Teams Impression Printer Relationship Specialty Start Date End Date Carmen Bertrand DO [address] [place] [address] PCP - General Family Medicine 08/18/18 documented as of this encounter
--- OUTSIDE RECORDS SUMMARY | 2024-12-28 20:59 | XMS_ITS | Encounter Summary ---
Author Organization [employer] Address 75 [facility] 7t [place] [address] Care Team Providers Care Transit Authority Police Officer Name Role Phone Carmen Bertrand DO Primary Care Provider + [phone] Reason for Visit * Reason Comments Med Refill Encounter Details Date Type Department Care Team ([facility] st Contact Info) Description 05/12/[address] [facility] [address] [place], [place] [phone] Carmen Bertrand DO [address] [facility] [place] [address] Chronic low back pain, unspecified back pain [...] 01/24/2025 1:00 PM EDT Clinical Support [facility] [address] [place] [address] 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, RULA documented as of this encounter Visit Diagnoses Diagnosis Chronic low back pain, unspecified back pain laterality, unspecified whether sciatica present documented in this encounter Additional Health Concerns Assessment Noted Time PHQ-9 Depression Total Score: 22 024 11:00 AM EDT documented as of this encounter Care Teams Transit Authority Police Officer Relationship Specialty Start Date End Date Carmen Bertrand DO [address] [place] [address] PCP - General Family Medicine 08/18/18 documented as of this encounter
--- OUTSIDE RECORDS SUMMARY | 2024-12-28 20:59 | XMS_ITS | Encounter Summary ---
Author Organization [employer] Address 75 [facility] 7t [place] [address] Care Team Providers Care Prison Teacher Name Role Phone Carmen Bertrand DO Primary Care Provider + [phone] Reason for Visit * Reason Comments Med Refill Encounter Details Date Type Department Care Team ([facility] Contact Info) Description 02/03/2023 Refill [facility] [address] [place] [address] Leticia Ramirez MD [address] [place] [address] Nonintractable headache, unspecified chronicity pattern, unspecified headache [...] Description 01/24/2025 1:00 PM EDT Clinical Support [facility] [address] [place] [address] 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 RN documented as of this encounter Visit Diagnoses Diagnosis Nonintractable headache, unspecified chronicity pattern, unspecified headache type documented in this encounter Additional Health Concerns Assessment Noted Time PHQ-9 Depression Total Score: 16 023 12:22 PM EST documented as of this encounter Care Teams Prison Teacher Relationship Specialty Start Date End Date Carmen Bertrand DO [address] [place] [address] PCP - General Family Medicine 08/18/18 documented as of this encounter
--- OUTSIDE RECORDS SUMMARY | 2024-12-28 20:59 | XMS_ITS | Encounter Summary ---
Author Organization [employer] Address 75 [facility] 7t [place] [address] Care Team Providers Care Securities Analyst Name Role Phone Carmen Bertrand Primary Care Provider + [phone] Reason for Visit * Reason Comments Med Refill Encounter Details Date Type Department Care Team ([facility] st Contact Info) Description 01/13/2024 Refill [facility] MEDICINE [address] [place] [address] Rox Sutton MD [address] [place] [address] Pain Social History Tobacco Use Types Packs/Day [...] is your housing situation today? I have rpavin amin 11/18/[address] you [...] 01/24/2025 1:00 PM EDT Clinical Support [facility] MEDICINE [address] [place] [address] 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 RN documented as of this encounter Visit Diagnoses Diagnosis Pain Generalized pain documented in this encounter Additional Health Concerns Assessment Noted Time PHQ-9 Depression Total Score: 21 023 11:26 AM EST documented as of this encounter Care Teams Securities Analyst Relationship Specialty Start Date End Date Carmen Bertrand DO [address] [place] [address] PCP - General Family Medicine 08/18/18 documented as of this encounter
--- NOTE | 2024-12-28 23:30 | PC.NURSE ---
Pt upset, states she has been waiting for a doctor for a long time and wants to leave without being seen. Pt did not want to stay any longer and LWCT.
--- NOTE | 2024-12-28 23:32 | PC.NURSE ---
pt was seen walking out of the ED while on the phone
== END 2024-12-28 23:32 | disposition left against medical advice (07) ==
PROVIDERS: Emergency Provider Emergency Medicine; PCP Family Medicine
DX: R51.9 Headache, unspecified (principal); C71.4 Malignant neoplasm of occipital lobe; E11.9 Type 2 diabetes mellitus without complications; I10 Essential (primary) hypertension; E78.5 Hyperlipidemia, unspecified; F17.210 Nicotine dependence, cigarettes, uncomplicated; Z79.02 Long term (current) use of antithrombotics/antiplatelets; Z79.899 Other long term (current) drug therapy; Z79.84 Long term (current) use of oral hypoglycemic drugs
CPT/HCPCS: 36415; 70450; 80053; 85025; 99281; 99284

== ENCOUNTER → 2024-12-28 20:29 | Outpatient (BNV) | payer OTHER, SELFPAY ==
[2022-10-22 13:00] VITALS: BP 128/72; BP 148/88; BMI 63.7
[2023-01-30 14:13] VITALS: BP 140/60
== END ==
PROVIDERS: PCP Family Medicine; Visit Provider Radiology Vascular & Interventional Radiology
DX: R51.9 Headache, unspecified (principal)
CPT/HCPCS: 70450

== ENCOUNTER 2024-12-31 11:36 | Outpatient (REF) | payer OTHER, SELFPAY ==
[2022-10-22 13:00] VITALS: BP 128/72; BP 148/88; BMI 63.7
[2023-01-30 14:13] VITALS: BP 140/60
--- NOTE | ~2024-12-31 | XR_ITS ---
EXAMINATION: XR KNEE 3 VIEWS BILATERAL HISTORY: knee pain COMPARISON: Comparison is made with the prior examination dated 07/02/2022. FINDINGS: Standing AP views of both knees and additional lateral and sunrise patellar views of the bilateral knees are submitted. Osseous mineralization is normal. There is no fracture or dislocation. There is severe osteoarthritis of the medial compartments of both knees with joint space narrowing and osteophyte formation. Findings have progressed on the right. Mild degenerative changes are noted involving the lateral and patellofemoral compartments of both knees. The soft tissues are unremarkable. There is no joint effusion. XR/XR Knee Thaddeus 3V IMPRESSION: Osteoarthritis of the bilateral knees as described, findings have progressed on the right. Electronically signed by: Marcus Louis MD 12/31/2024 03:22 PM EDT
--- OUTSIDE RECORDS SUMMARY | 2024-12-31 11:49 | XMS_ITS | Encounter Summary ---
Author Organization [employer] Address 75 [facility] 7t [place] [address] Care Team Providers Care Acid Tank Liner Name Role Phone Carmen Bertrand DO Primary Care Provider + [phone] Reason for Visit * Reason Comments Med Refill Encounter Details Date Type Department Care Team ([facility] st Contact Info) Description 11/20/2022 Refill [facility]INE [address] [place] [address] Carmen Bertrand DO [address] [place] [address] Morbid obesity with body mass index (BMI) [...] Support [facility] [address] [place] [address] 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, RN documented as of this encounter Visit Diagnoses Diagnosis Morbid obesity with body mass index (BMI) of 50.0 to 59.9 in adult (CMS/HCC) documented in this encounter Additional Health Concerns Assessment Noted Time PHQ-9 Depression Total Score: 16 023 12:22 PM EST documented as of this encounter Care Teams Acid Tank Liner Relationship Specialty Start Date End Date Carmen Bertrand DO [address] [place] [address] PCP - General Family Medicine 08/18/18 documented as of this encounter
--- OUTSIDE RECORDS SUMMARY | 2024-12-31 11:49 | XMS_ITS | Encounter Summary ---
Author Organization [employer] Address 75 [facility] 7t [place] [address] Care Team Providers Care Public Events Facilities Rental Manager Name Role Phone Carmen Bertrand DO Primary Care Provider [phone] Encounter Details Date Type Department Care Team (Late st Contact Info) Description 08/13/2022 Orders Only [facility] & PEDS [address] [place] [address] Carmen Perez LPN Social History Tobacco Use [...] 1:00 PM EDT Clinical Support [facility] MEDICINE [address] [place] [address] 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, RULA documented as of this encounter Visit Diagnoses Not on filedocumented in this encounter Care Teams Public Events Facilities Rental Manager Relationship Specialty Start Date End Date Carmen Bertrand DO [address] [place] [address] PCP - General Family Medicine 08/18/18 documented as of this encounter
--- OUTSIDE RECORDS SUMMARY | 2024-12-31 11:49 | XMS_ITS | Encounter Summary ---
Author Organization [employer] [facility] Address [address] [place] [address] 7t [place] [address] Care Team Providers Care Assistant Professor Of Education Name Role Phone Carmen Bertrand DO Primary Care Provider [phone] Encounter Details Date Type Department Care Team (Late st Contact Info) Description 09/09/2022 Orders Only [facility]INE [address] [place] [address] Azul Albrecht LPN Social History Tobacco Use [...] Description 01/24/2025 1:00 PM EDT Clinical Support [facility] [address] [place] [address] 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, RN documented as of this encounter Visit Diagnoses Not on filedocumented in this encounter Care Teams Assistant Professor Of Education Relationship Specialty Start Date End Date Carmen Bertrand DO [address] [place] [address] PCP - General Family Medicine 08/18/18 documented as of this encounter
--- OUTSIDE RECORDS SUMMARY | 2024-12-31 11:49 | XMS_ITS | Encounter Summary ---
Author Organization [employer] Address 75 [facility] 7t [place] [address] Care Team Providers Care Medical Records Field Technician Name Role Phone Carmen Bertrand DO Primary Care Provider + [phone] Reason for Visit * Reason Comments Med Refill Encounter Details Date Type Department Care Team ([facility] Contact Info) Description 10/18/2022 Refill [facility] [address] [place] [address] Carmen Bertrand DO [address] [place] [address] Social History Tobacco Use Types Packs/Day Years [...] Clinical Support [facility] MEDICINE [address] [place] [address] 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 RN documented as of this encounter Visit Diagnoses Not on filedocumented in this encounter Additional Health Concerns Assessment Noted Time PHQ-9 Depression Total Score: 16 023 12:22 PM EST documented as of this encounter Care Teams Medical Records Field Technician Relationship Specialty Start Date End Date Carmen Bertrand DO [address] [place] [address] PCP - General Family Medicine 08/18/18 documented as of this encounter
--- OUTSIDE RECORDS SUMMARY | 2024-12-31 11:49 | XMS_ITS | Encounter Summary ---
Author Organization [employer] Address [address] [facility] [address] [place] [address] Care Team Providers Care Tdp Displays Analyst Name Role Phone Carmen Bertrand Primary Care Provider + [phone] Reason for Visit * Reason Comments Med Refill Encounter Details Date Type Department Care Team ([facility] st Contact Info) Description 03/08/2024 Refill [facility] [address] [place] [address] Rox Sutton MD [address] [place] [address] Pain Social History Tobacco Use Types Packs/Day [...] Description 01/24/2025 1:00 PM EDT Clinical Support [facility] [address] [place] [phone] 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 RN documented as of this encounter Visit Diagnoses Diagnosis Pain Generalized pain documented in this encounter Additional Health Concerns Assessment Noted Time PHQ-9 Depression Total Score: 21 023 11:26 AM EST documented as of this encounter Care Teams [employer]dp Displays Analyst Relationship Specialty Start Date End Date Carmen Bertrand DO [address] [place] [phone] PCP - General Family Medicine 08/18/18 documented as of this encounter
--- OUTSIDE RECORDS SUMMARY | 2024-12-31 11:49 | XMS_ITS | Encounter Summary ---
Author Organization [email or web address] [facility] Address [address] [place] [address] [address] [place] [address] Care Team Providers Care Director [employer] Name Role Phone Carmen Bertrand DO Primary Care Provider [phone] Reason for Visit * Reason Comments Med Refill Encounter Details Date Type Department Care Team (Late st Contact Info) Description 07/29/2022 Refill [facility] [address] [place] [phone] Carmen Bertrand DO [address] [place] [phone] Social History Tobacco Use Types Packs/Day Years [...] Clinical Support [facility] [address] [place] [phone] 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 RN documented as of this encounter Visit Diagnoses Not on filedocumented in this encounter Care Teams Director [employer] Relationship Specialty Start Date End Date Carmen Bertrand DO [address] [place] [phone] PCP - General Family Medicine 08/18/18 documented as of this encounter
--- OUTSIDE RECORDS SUMMARY | 2024-12-31 11:49 | XMS_ITS | Clinical Summary ---
Author Organization [employer] Address [address] [facility] [facility] [address] [place] [address] Care Team Providers Care Pharmacy Tech Name Role Phone Carmen Bertrand DO Primary Care Provider + [phone] Allergies Active Allergy Reactions Criticality Noted Date [...] 2025 Active ergocalciferol (Vitamin D2) 1.25 MG (55176 UT) capsule Take 1 capsule (1.25 mg) by mouth 1 (one) time per week. 12 capsule Active econazole nitrate 1 % cream APPLY TOPICALLY TO AFFECTED AREA(S) TWICE DAILY DIRECTED 85 g 1 025 Active atorvastatin (Lipitor) 80 MG tablet TAKE 1 TABLET BY MOUTH EVERY DAY 90 tablet 3 Active albuterol (Ventolin HFA) 108 (90 Base) MCG/ACT inhalerIndication s:Mild persistent asthma without complication INHALE 2 PUFFS BY MOUTH EVERY 4 TO 6 HOURS NEEDED 18 g 025 Active topiramate 50 MG tabletIndications :Nonintractable headache, unspecified chronicity pattern, unspecified headache type TAKE 1 TABLET BY MOUTH TWICE DAILY 60 tablet 5 Active metoprolol succinate XL (Toprol-XL) 50 MG 24 hr tabletIndications :Hypertension, unspecified type TAKE 1 TABLET BY MOUTH EVERY DAY 90 tablet 1 025 Active emtricitabine-ten ofovir DF (Truvada) 200-300 MG tabletIndications :On pre-exposure prophylaxis for HIV TAKE 1 TABLET BY MOUTH EVERY DAY 30 tablet 2 Active Brilinta 90 MG tablet TAKE 1 TABLET BY MOUTH TWICE DAILY 60 tablet 1 Active amLODIPine (Norvasc) 5 MG tablet Take 1 tablet by mouth Once per day. Active clopidogrel (Plavix) 75 MG tablet Take 1 tablet by mouth Once per day. 025 Active Tirzepatide-Weigh t Management (Zepbound) 5 MG/0.5ML solution auto-injector Inject 0.5 mL (5 mg) under the skin 1 (one) time per week. 2 mL 3 Active nitroglycerin (Nitrostat) 0.4 MG SL tablet [...] 28 days. 84 tablet 025 2024 Active albuterol (2.5 MG/3ML) 0.083% nebulizer solutionIndicatio ns:Mild persistent asthma without complication INHALE 1 TO 2 AMPULE USING A NEBULIZER EVERY 4 TO 6 HOURS NEEDED FOR COUGH, WHEEZING, OR SHORTNESS OF BREATH 90 mL 3 Active famotidine (Pepcid) 40 MG tablet TAKE 1 TABLET BY MOUTH EVERY DAY AT BEDTIME NEEDED FOR HEARTBURN 30 tablet 3 024 2024 Discontinued(R gonsalo (will not trigger notification to Pharmacy)) hydroquinone 4 % creamIndications: Acanthosis nigricans Apply topically 2 times daily. 28.35 g 1 024 2024 Discontinued albuterol (2.5 MG/3ML) 0.083% nebulizer solutionIndicatio ns:Mild persistent asthma without complication INHALE 1-2 AMPULE USING A NEBULIZER EVERY 4 TO 6 HOURS NEEDED FOR COUGH, WHEEZING, OR SHORTNESS OF BREATH 90 mL 3 025 2024 Discontinued metroNIDAZOLE (Metrogel) 0.75 % [...] Active Problems Problem Noted Date Diagnosed Date Dermoid cyst of head 12/29/2024 Assessment & Plan (12/29/2024 4:45 PM EDT): On left occipital area, no signs of infection. Reassurance, I explained the patient did not back on the area and return to clinic if she develops significant enlargement of the lesion, discharge, erythema or fever I will refer her to surgery for excision, she understands that these lesions tend to recur with time Coronary artery disease 08/24/2024 Overview (08/24/2024): Lad [...] Encounters Date Type Department Care Team Description 12/29/2024 3:20 PM EDT Office Visit [facility] [address] [place] [address] Frances Austin MD Dermoid cyst of head (Primary Dx) 12/29/2024 Telephone [facility] [address] [place] [address] Carmen Bertrand DO telephone call 12/28/2024 Orders Only GENERIC EXTERNAL DATA DEPARTMENT Provider, Generic External Data 12/28/2024 Refill [facility] [address] [place] [address] Irina Talley MD Mild persistent asthma without complication 12/13/2024 Orders Only GENERIC EXTERNAL DATA DEPARTMENT Provider, Generic External Data 12/07/2024 Refill [facility] [address] [place] [address] Carmen Bertrand DO Chronic low back pain, unspecified back pain laterality, unspecified whether sciatica present 12/05/2024 Refill [facility] [address] [place] [address] Carmen Bertrand DO 12/05/2024 Refill [facility] [address] [place] [address] Irina Talley MD Melasma 12/03/2024 Refill [facility] [address] [place] [phone] Alexandra Lisa MD Acanthosis nigricans 12/01/2024 Telephone [facility] [address] [place] [phone] Lisa Rios RN Care Coordination 11/30/2024 9:15 AM EDT Office Visit [facility] [address] [place] [phone] Carmen Bertrand DO Coronary artery disease involving mashpee coronary artery of mashpee heart, unspecified whether angina present (Primary Dx) 11/30/2024 Travel 11/19/2024 Refill [facility] [address] [place] [address] Carmen Bertrand DO 11/12/2024 Patient Outreach [facility] [address] [place] [address] Carmen Bertrand DO Transition Of Care (Tcm) (HDF scheduled. ) 11/12/2024 Telephone [facility] [address] [place] [phone] Carmen Bertrand DO Hospital Follow-up 11/07/2024 Orders Only GENERIC EXTERNAL DATA DEPARTMENT Provider, Generic External Data 11/05/2024 Refill [facility] [address] [place] [phone] Carmen Bertrand DO On pre-exposure prophylaxis for HIV 11/04/2024 Refill [facility] [address] [place] [address] Carmen Bertrand DO Chronic low back pain, unspecified back pain laterality, unspecified whether sciatica present 11/01/2024 Telephone [facility] [address] [place] [address] Carmen Bertrand DO telephone call 10/21/2024 1:30 PM EST Clinical Support [facility] [address] [place] [address] 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 RN Chronic bilateral low back pain without sciatica (Primary Dx) 10/21/2024 Travel 10/20/2024 2:30 PM EST Office Visit [facility] [address] [place] [address] Tova Saucedo, OD Presbyopia (Primary Dx); Cup to disc asymmetry, left 10/20/2024 Travel 10/11/2024 Refill [facility] [address] [place] [address] Carmen Bertrand DO Hypertension, unspecified type 10/06/2024 Telephone [facility] [address] [place] [address] Carmen Bertrand DO Prior Authorization 10/06/2024 Refill [facility] [address] [place] [address] Ирина Mckeon MD Nonintractable headache, unspecified chronicity pattern, unspecified headache type 10/05/2024 Refill [facility] [address] [place] [address] Carmen Bertrand DO Chronic low back pain, unspecified back pain laterality, unspecified whether sciatica present 10/05/2024 Telephone [facility] [address] [place] [address] Carmen Bertrand DO Nurse Triage 10/05/2024 Refill [facility] [address] [place] [address] Carmen Bertrand DO Mild persistent asthma without complication; Melasma from Last 3 Months Immunizations Immunization Administration Dates Next Due Hep B, adult [...] Sign Reading Time Taken Comments Blood Pressure 141/80 12/29/2024 2:57 PM EDT Pulse 81 12/29/2024 2:57 PM EDT Temperature 36.1 ??C (97 ??F) 12/29/2024 2:57 PM EDT Respiratory Rate 21 11/30/2024 9:27 AM EDT Oxygen Saturation 98% 12/29/2024 2:57 PM EDT Inhaled Oxygen Concentration - - Weight 158 kg (349 lb 4 oz) 12/29/2024 2:57 PM E DT Height 170.2 cm (5' 7 ) 12/29/2024 2:57 PM EDT Body Mass Index 54.7 12/29/2024 2:57 PM EDT Plan of Treatment Upcoming Encounters Date Type Department Care Team (Late st Contact Info) Description 01/24/2025 1:00 PM EDT Clinical Support [facility] [address] [place] [address] 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, RN Health Maintenance Due Date Last Done Comments CT Colonography 1975 Colonoscopy 1975 FIT 1975 FOBT 1975 Sigmoidoscopy 1975 Family Planning (PISQ) 1991 Hepatitis A Vaccines (1 of 2 - Risk 2-dose series) 1995 COVID-19 Vaccine (3 - season) 2024 06/07/2021, 01/29/2021 SDOH Screening 04/27/2025 04/27/2024 Diabetes: Hemoglobin A1C 08/24/2025 025, 04/27/2024, 04/27/2024, Additional history exists Alcohol/Substance Use Screening 09/27/2025 09/27/2024 Depression Screening 09/27/2025 09/27/2024, 04/27/20 24 Tobacco Screening 12/29/2025 12/29/2024 Zoster Vaccines (1 of 2) 2026 Mammogram [...] patient's age to complete this topic Meningococcal B Vaccine Aged Out No l onger eligible based on patient's age to complete [...] Procedure Name Priority Date/Time Associated Diagnosis Comments CT HEAD WO CONTRAST Routine 12/28/2024 9 :40 PM EDT COMPREHENSIVE METABOLIC PANEL Routine 12/28/2024 [...] PM EST Cup to disc asymmetry, left LAB COLOGUARD?? COLON CANCER SCREEN Routine 08/31/2024 [...] Recently Relevant to Health Maintenance Results * CT Head w/o Contrast (12/28/2024 9:40 PM EDT) Anatomical Region Laterality Modality Head, Neck Computed Tomogra phy 12/28/2024 9:40 PM EDT Narrative 12/28/2024 9:42 PM EDT ? [facility] ?[address] ?[place] [address] ? CT Scan Report ? Signed ? Patient: Blaire Quiroz ?MR#: M ?? [id number] ? : 1975 ?Acct:[id number] ? Age/Sex: 49 / F ?ADM Date: 12/28/24 ? Loc: HO.ED ? Attending Dr: ? Ordering Physician: Anita Alegre NP ?? Date of Service: 12/28/24 ?? Procedure(s): CT head/brain wo IV con ?? Accession Number(s): [id number] ? cc: Carmen Bertrand DO; Sis,Anita ELECTROLOG OPERATOR ? Report Number: ?? [id number]: Total DLP = ??767.00 mGy-cm ? CLINICAL HISTORY: headache 3 days, no hx of same, occipital mass ? CT head without contrast ? Comparison: None ? Findings: ?? No intra-axial mass, midline shift, hydrocephalus, or acute hemorrhage. ?? No significant atrophy-like change or white matter disease. ? The visualized paranasal sinuses and mastoid air cells are normal. ?? The orbits are unremarkable. ?? No skull fracture. ? IMPRESSION: ?? 1. No acute intracranial findings. ? This document has been electronically signed by: Jaydon Juan MD on ?? 12/28/2024 21:40:59 ? Dictated By: ?Jaydon Juan MD ? Signed By: ?<Electronically signed by Jaydon Juan MD in OV> ? 12/28/24 2142 ? DD/ 39 ? TD/TT: 12/28/242139 ? Retort Unloader: ? Procedure Note Donclintonter, Image - 12/28/[address] [place] [address] [address] Scan Report Signed Patient: Christianne Quiroz#: M [id number] : 1975Acct:[id number] Age/Sex: 49 / FADM Date: 12/28/24 Loc: HO.ED Attending Dr: Ordering Physician: Anita Alegre NP Date of Service: 12/28/24 Procedure(s): CT head/brain wo IV con Accession Number(s): [id number] cc: Carmen Bertrand DO; Anita Alegre NP Report Number: [id number]: Total DLP = 767.00 mGy-cm CLINICAL HISTORY: headache 3 days, no hx of same, occipital mass CT head without contrast Comparison: None Findings: No intra-axial mass, midline shift, hydrocephalus, or acute hemorrhage. No significant atrophy-like change or white matter disease. The visualized paranasal sinuses and mastoid air cells are normal. The orbits are unremarkable. No skull fracture. IMPRESSION: 1. No acute intracranial findings. This document has been electronically signed by: Jaydon Juan MD on 12/28/2024 21:40:59 Dictated By: Jaydon Juan MD Signed By: <Electronically signed by Jaydon Juan MD in OV> 12/28/242141 DD/ 39 TD/TT: 12/28/242139 Retort Unloader: [facility] External Provider IMG CT PROCEDURES Final Result * (ABNORMAL) CBC auto differential (12/28/2024 8:25 PM EDT) Only the most recent of2 resultswithin the time period is included. White Blood Count 12.3(H) 4.8 - 10.8 X10*3/uL [facility] Red Blood Count 3.68(L) 4.20 - 5.50 X10*6/uL [facility] Hemoglobin 11.6(L) 12.0 - 16.0 g/dl [facility] Hematocrit 33.5(L) 37.0 - 47.0 % [facility] Mean Corpuscular Volume 91.0 80.0 - 98.0 fL [facility] Mean Corpuscular Hemoglobin 31.5 27.0 - 33.0 pg [facility] Mean Corpuscular HGB Conc 34.6 31.0 - 35.0 g/dl [facility] Red Cell Distribution Width 14.1 11.0 - 16.0 % [facility] Platelet Count 262 160 - 400 X10*3/uL [facility] Mean Platelet Volume 9.3(L) 9.4 - 12.3 fL [facility] Neutrophils Percent Auto 56.5 45 - 73 % [facility] Imm Gran Pct Auto 0.4 0.0 - 0.4 % [facility] Lymphocytes Percent Auto 32.1 20 - 40 % [facility] Monocytes Percent Auto 7.6 2 - 11 % [facility] Eosinophils Percent Auto 2.7 0 - 4 % [facility] Basophils Percent Auto 0.7 0 - 2 % [facility] NRBC Pct Auto 0.0 0.0 - 0.2 /100WBC [facility] Neutrophils Absolute Auto 7.0 2.0 - 8.3 x10*3/uL [facility] Imm Gran Abs Auto 0.05(H) 0.00 - 0.03 X10*3/uL [facility] Lymphocytes Absolute Auto 4.0 1.2 - 4.9 X10*3/uL [facility] Monocytes Absolute Auto 0.9 0.1 - 1.2 X10*3/uL [facility] Eosinophils Absolute Auto 0.3 0.0 - 0.4 X10*3/uL [facility] Basophils Absolute Auto 0.1 0.0 - 0.2 X10*3/uL [facility] NRBC Abs Auto 0.000 0.0 - 0.012 X10*3/uL [facility] 12/28/2024 8:25 PM EDT 12/28/2024 8:27 PM EDT us Generic External Data Provider LAB BLOOD ORDERAB LES Final Result [facility] [address] [place] [address] [phone] * (ABNORMAL) Comprehensive Metabolic Panel (12/28/2024 8:25 PM EDT) Only the most recent of2 resultswithin the time period is included. Sodium 141 135 - 145 mmol/L [facility] Potassium 4.0 3.3 - 5.1 mmol/L [facility] Chloride 108 96 - 108 mmol/L [facility] Carbon Dioxide 24 22 - 29 mmol/L [facility] Anion Gap 13 12 - 20 [facility] Urea Nitrogen (BUN) 19(H) 9 - 16 mg/dL [facility] Creatinine, Serum 0.81 0.5 - 1.4 mg/dL [facility] Creatinine Clr Calc Pharmacy 132.9 [facility] Comment:Provided height and weight: 172.72 cm,151.953 kg.eGFR (calculated from the MDRD study equation) and eCrCl(calculated from the Cockcroft-Gault equation) are based ondifferent parameters and may not yield comparable results.If eCrCl result is absurd, please check patient'sheight/weight. Estimated Glomerular Filt Rate >60 [facility] Comment:Chronic Kidney Disea se: Estimated GFR < 60 mL/min/1.68u5Ppbhsm Kidney Disease: Estimated GFR < 15 mL/min/1.73m2 Glucose 106 60 - 115 mg/dL [facility] Calcium 9.1 8.4 - 10.2 mg/dL [facility] Bilirubin, Total 0.3 0.0 - 1.0 mg/dL [facility] Aspartate Amino Transferase 28 5 - 31 U/L [facility] Alanine Aminotransferase 16 0 - 31 U/L [facility] Total Protein 7.2 6.5 - 8.0 g/dL [facility] Albumin Level 3.5 3.5 - 5.0 g/dL [facility] Alkaline Phosphatase 80 39 - 117 U/L [facility] 12/28/2024 8:25 PM EDT 12/28/2024 8:27 PM EDT us Generic External Data Provider LAB BLOOD ORDERAB LES Final Result [facility] [address] [place] [address] [phone] * US RENAL BI (12/22/2024 6:57 PM EDT) Anatomical Region Laterality Modality Abdomen Ultrasound 12/22/2024 6:57 PM EDT Narrative 12/22/2024 6:58 PM EDT ? [facility] ?[address] ?[place] [address] ? Ultrasound Report ? Signed ? Patient: Maria Luisa TedBlaire ?MR#: M ?? [id number] ? : 1975 ?Acct:[id number] ? Age/Sex: 49 / F ?ADM Date: 05/07/25 ? Loc: HO.US ? Attending Dr: Ricardo Lepe MD ? Ordering Physician: Ricardo Lepe MD ?? Date of Service: 12/22/24 ?? Procedure(s): US renal BI ?? Accession Number(s): [id number] ? cc: Ricardo Lepe MD; Carmen Bertrand [...] ? DD/ 56 ? TD/TT: 12/22/241856 ? Retort Unloader: ? Procedure Note Dawna Lora - 12/22/2024 [place] [address] Ultrasound Report Signed Patient: Christianne Quiorz#: M [id number] : 1975Acct:[id number] Age/Sex: 49 / FADM Date: 12/22/24 Loc: HO.US Attending Dr: Ricardo Lepe MD Ordering Physician: Ricardo Lepe MD Date of Service: 12/22/24 Procedure(s): US renal BI Accession Number(s): [id number] cc: Ricardo Lepe MD; Carmen Bertrand DO [...] in OV> 12/22/241857 DD/ 56 TD/TT: 12/22/241856 Retort Unloader: us [facility] External Provider IMG US PROCEDURES Final Result * Culture, Urine, Routine (12/13/2024 1:03 PM EDT) Urine Urine specimen obtained by clean catch procedure / Unknown 12/13/2024 1:03 PM EDT 12/13/2024 5:13 PM EDT Comment:UACC Narrative [facility] - 12/15/2024 11:24 AM EDT Urine Culture No growth. Specimen Source: Urine clean catch us Generic External Data Provider LAB MICROBIOLOGY - GENERAL ORDERABLES Final Result [facility] [address] [place] [address] [phone] * NM heart perfusion SPECT stress and rest (11/08/2024 9:19 AM EDT) Anatomical Region Laterality Modality Body Nuclear Medicine 11/08/2024 9:19 AM EDT Narrative 11/09/2024 12:33 PM EDT ? [facility] ?[address] ?[place] [address] ?Nuclear Medicine Report ? Signed ? Patient: Maria Luisa MarroquinriaBlaire ?MR#: M ?? [id number] ? : 1975 ?Acct:[id number] ? Age/Sex: 49 / F ?ADM Date: 03/23/25 ? Loc: HO.IMC ?475-1 ? Attending Dr: Gregg Chavez MD ? Ordering Physician: Mars Hutchinson MD ?? Date of Service: 11/08/24 ?? Procedure(s): NM andrew perf SPECT rest ?? str ?? Accession Number(s): [id number] ? cc: Carmen Bertrand DO; Mars Hutchinson [...] DD/ 0919 ? TD/TT: 11/09/24 0955 ? Retort Unloader: ? Procedure Note Donotuseinterpreter, Image - 11/09/2024 [place] [address] Nuclear Medicine Report Signed Patient: Blaire Quiroz#: M [id number] : 1975Acct:[id number] Age/Sex: 49 / FADM Date: 11/07/24 Loc: [facility] 475-[address]: Gregg Chavez MD Ordering Physician: Mars Hutchinson MD Date of Service: 11/08/24 Procedure(s): NM andrew perf SPECT rest str Accession Number(s): [id number] cc: Carmen Bertrand DO; Mars Hutchinson MD [...] 11/09/24 1231 DD/ 0919 TD/TT: 11/09/24 0955 Retort Unloader: [facility] External Provider IMG NM PROCEDURES Edited Result - Final * (ABNORMAL) High Sensitivity Troponin I (11/07/2024 7:34 PM EDT) Only the most recent of2 resultswithin the time period is included. TROPONIN I HIGH SENSITIVITY 85.7(HH) <3.5 - 17.0 ng/L [facility] Comment:Critical value for t est(s): HS-TNI Results called to rickie back by:ROSANNE Person calling:ALKAAB Date: 11/07/2024Time:20:02.[employer] high sensitivity Troponin-I results should beused in conjunction with other diagnostic information suchas ECG, clinical observations and information, and patientsymptoms to aid in the diagnosis of KS. 11/07/2024 7:34 PM EDT 11/07/2024 7:37 PM EDT Generic External Data Provider LAB BLOOD ORDERAB LES Final Result [facility] [address] [place] [phone] * (ABNORMAL) Partial Thromboplastin Time, Activated (APTT) (11/07/2024 7:34 PM EDT) Partial Thromboplastin Time 36.9(H) 26.0 - 36.8 SEC [facility] Comment:For information rega rding the monitoring of direct thrombininhibitors, please refer to Pharmacy. 11/07/2024 7:34 PM EDT 11/07/2024 7:37 PM EDT us Generic External Data Provider LAB BLOOD ORDERAB LES Final Result [facility] [address] [place] [address] [phone] * CT Abdomen Pelvis w/o Contrast (11/07/2024 7:25 PM EDT) Anatomical Region Laterality Modality Body, Pelvis, Abdomen Computed T omography 11/07/2024 7:25 PM EDT Narrative 11/07/2024 7:26 PM EDT ? [facility] ?[address] ?[place] [address] ? CT Scan Report ? Signed ? Patient: Blaire Quiroz ?MR#: M ?? [id number] ? : 1975 ?Acct:[id number] ? Age/Sex: 49 / F ?ADM Date: 11/07/24 ? Loc: HO.ED ? Attending Dr: ? Ordering Physician: Marco Lugo MD ?? Date of Service: 11/07/24 ?? Procedure(s): CT abdomen pelvis wo IV con ?? Accession Number(s): [id number] ? cc: Carmen Bertrand DO; Marco Lugo MD ? Report Number: ?? [id number]: Total DLP = 1392.00 mGy-cm ? CLINICAL HISTORY: left flank pain ? CT abdomen and pelvis without contrast ? Comparison: DX - XR HIP RT MIN 2V - 09/17/24 11:03 EST ?? US/SR - US ABDOMEN COMPLETE - 05/07/24 09:08 EDT ?? CT/WA/SR - CT ABDOMEN PELVIS WO IV CON [...] ? DD/ 24 ? TD/TT: 11/07/241924 ? Retort Unloader: ? Procedure Note Geno, Image - 11/07/[address] [place] [address] [address] Scan Report Signed Patient: Christianne Quiroz#: M [id number] : 1975Acct:[id number] Age/Sex: 49 / FADM Date: 11/07/24 Loc: HO.ED Attending Dr: Ordering Physician: Marco Lugo MD Date of Service: 11/07/24 Procedure(s): CT abdomen pelvis wo IV con Accession Number(s): [id number] cc: Carmen Bertrand DO; Marco Lugo MD Report Number: [id number]: Total DLP = 1392.00 mGy-cm CLINICAL HISTORY: left flank pain CT abdomen and pelvis without contrast Comparison: DX - XR HIP RT MIN 2V - 09/17/24 11:03 EST US/SR - US ABDOMEN COMPLETE - 05/07/24 09:[address]/WA/SR - CT ABDOMEN PELVIS WO IV CON - 6/27/24 20:37 EDT Findings: Small hiatal hernia. Liver, [...] in OV> 11/07/241924 DD/ 24 TD/TT: 11/07/241924 Retort Unloader: [facility] External Provider IMG CT PROCEDURES Edited Result - Final * XR Chest 1 View (11/07/2024 6:43 PM EDT) Anatomical Region Laterality Modality Chest Radiographic Alejandrina ging 11/07/2024 6:43 PM EDT Narrative 11/07/2024 6:45 PM EDT ? [facility] ?[address] ?[place] [address] ?XRay Report ? Signed ? Patient: Maria Luisa Jean,Blaire ?MR#: M ?? [id number] ? : 1975 ?Acct:[id number] ? Age/Sex: 49 / F ?ADM Date: 03/23/25 ? Loc: HO.ED ? Attending Dr: ? Ordering Physician: Marco Lugo MD ?? Date of Service: 11/07/24 ?? Procedure(s): XR chest 1V ?? Accession Number(s): [id number] ? cc: Carmen Bertrand DO; Marco Lugo MD ? CLINICAL HISTORY: Chest pain ? 1 view chest x-ray ? Comparison: CR/WA/SR - XR CHEST 1V - 11/11/23 18:01 [...] ? DD/ 42 ? TD/TT: 11/07/241842 ? Retort Unloader: ? Procedure Note Donvirginianery, Image - 11/07/2024 [place] [address] XRay Report Signed Patient: Blaire QuirozMR#: M [id number] : 1975Acct:[id number] Age/Sex: 49 / FADM Date: 11/07/24 Loc: HO.ED Attending Dr: Ordering Physician: Marco Lugo MD Date of Service: 11/07/24 Procedure(s): XR chest 1V Accession Number(s): [id number] cc: Carmen Bertrand DO; Marco Lugo MD CLINICAL HISTORY: Chest pain 1 view chest x-ray Comparison: CR/WA/SR - XR CHEST 1V - 11/11/23 18:01 EDT Findings: No consolidation or effusion. Heart size is normal. No acute fracture. IMPRESSION: 1. No acute findings. This document has been electronically signed by: Mahad Pearl MD on 11/07/2024 18:43:58 Dictated By: Mahad Pearl MD Signed By: <Electronically signed by Mahad Pearl MD in OV> 11/07/241843 DD/ 42 TD/TT: 11/07/241842 Retort Unloader: [facility] External Provider IMG XR PROCEDURES Edited Result - Final * Magnesium (11/07/2024 4:29 PM EDT) Magnesium 1.7 1.6 - 2.6 mg/dL [facility] 11/07/2024 4:29 PM EDT 11/07/2024 4:33 PM EDT Generic External Data Provider LAB BLOOD ORDERAB LES Final Result Performing Organization Address [facility]/ZIP Co de Phone Number [facility] [address] [place] [phone] * Lipase (11/07/2024 4:29 PM EDT) Lipase 11 8 - 78 U/L [facility] 11/07/2024 4:29 PM EDT 11/07/2024 4:33 PM EDT Generic External Data Provider LAB BLOOD ORDERAB LES Final Result Performing Organization Address [facility] Co de Phone Number [facility] [address] [place] [phone] * POCT ANALISA-14 Urine Drug Screen (10/21/2024 2:02 PM EST) Urine Urine specimen obtained by clean catch procedure / Unknown 10/21/2024 2:02 PM EST Narrative Jessica Conway, RN - 10/21/2024 2:02 PM EST UTOX cup Lot#[id number] Exp. 04/06/26 Internal Pass Control UTOX Negative [...] Positive( A) Negative 09/07/2024 10:16 AM EST [employer] (CLIA #:[id number]) Comment: POSITIVE TEST RESULT. A positive Cologuard [...] (Ashleigh Zhou al, N Engl J Med 2014;370(14):5092-3237.) Cologuard may produce a false negative or false positive result (no colorectal cancer or precancerous polyp present at colonoscopy follow up). A negative Cologuard test result does not guarantee the absence of CRC or advanced adenoma (pre-cancer). The current Cologuard screening interval is every 3 years. ([place] [employer] Society and U.S. Multi-Society Task Force). Cologuard performance data in a 10,000 patient pivotal study using colonoscopy as the reference method can be accessed at the following location: [email or web address]/results. Additional description of the Cologuard test process, warnings and precautions can be found at [email or web address]. Stool specimen (specimen) 08/31/2024 10:33 AM EST 09/01/2024 11:06 AM EST Carmen Bertrand DO LAB MOLECULAR DIAGNOSTICS OR DERABLES Final Result [employer] (CLIA #:[id number]) [address] [place] [address], * Hemoglobin A1c (08/24/2024 11:57 AM EST) Hemoglobin A1c 6.0 <6.0 % [facility] Comment:Hemoglobin A1C Refer ence Range Adults: 4.8 - 6.0 % Non diabetic: < 6.0 % Goal: < 7.0 %Additional Action Suggested: > 8.0 %Note: Hemoglobin A1c results are invalid for patients with abnormal amounts of HbF. Blood transfusions may impact the HbA1c concentration in the patient sample. Estimated Average Glucose 126 mg/dL [facility] Comment:eAG = Estimated ave rage glucose which is %A1C expressed asaverage glucose, using the formula of the F2S-EszskntOiierdx Glucose study (ADAG), Diabetes Care, Vol.31,#8,Mar. 2007 Blood Venous blood specimen / Unknown 08/24/2024 11:57 AM EST 08/24/2024 1:03 PM EST Carmen Elza DO LAB BLOOD ORDERABLES Final R esult Performing Organization Address City/[facility]/ZIP Co de Phone Number [facility] [address] [place] [phone] * (ABNORMAL) Lipid Panel, Standard (08/24/2024 11:57 AM EST) Triglycerides 82 <150 mg/dL [facility] Comment:Desirable Triglyceri de: less than 150 mg/dLBorderline High Triglyceride 150-199 mg/dLHigh Triglyceride: 200-499 mg/dLVery High Triglyceride: greater than or equal to 5OO mg/dL Cholesterol 136 <200 mg/dL [facility] Comment:Desirable Cholestero l: less than 200 mg/dLBorderline High Cholesterol: 200-239 mg/dLHigh Cholesterol: greater than 239 mg/dL LDL Cholesterol Calculated 81 <100 mg/dL [facility] Comment:Desirable LDL: less than 100 mg/dLNear Optimal/Above Optimal LDL: 110- 129 mg/dLBorderline High LDL: 130-159 mg/dLHigh LDL: 160-189 mg/dLVery High LDL: greater than or equal to 190 mg/dL HDL Cholesterol 39(L) >40 mg/dL [facility] Comment:Desirable HDL: great er than 40 mg/dL Note: This HDL assay may give artificially low results in patients with liver disease. Blood Venous blood specimen / Unknown 08/24/2024 11:57 AM EST 08/24/2024 1:03 PM EST Carmen Elza DO LAB BLOOD ORDERABLES Final R esult [facility] [address] [place] [address] [phone] * BI US Breast Limited Bilateral (06/02/2024 2:00 PM EDT) Anatomical Region Laterality Modality Breast Bilateral Ultrasound 06/02/2024 2:00 PM EDT Narrative 06/03/2024 8:44 AM EDT ? [facility] ? [address] ?[place] [address] ? Ultrasound Report ? Signed ? Patient: Maria Luisa Jean,Blaire ?MR#: M ?? [id number] ? : 1975 ?Acct:[id number] ? Age/Sex: 49 / F ?ADM Date: 06/02/24 ? Loc: HO.MAMMO ? Attending Dr: Carmen Bertrand DO ? Ordering Physician: Carmen Bertrand DO ?? Date of Service: 06/02/24 ?? Procedure(s): US breast BI limited mamm only ?? Accession Number(s): [id number] ? cc: Carmen Bertrand DO ? EXAMINATION: [...] DD/ 1400 ? TD/TT: 06/02/24 1454 ? Retort Unloader: ? Procedure Note Geno, Image - 06/03/2024 [facility] [address] [place] [address] [place] [address] Ultrasound Report Signed Patient: Blaire Quiroz#: M [id number] : 1975Acct:[id number] Age/Sex: 49 / FADM Date: 06/02/24 Loc: HO.MAMMO Attending Dr: Carmen Bertrand DO Ordering Physician: Carmen Bertrand DO Date of Service: 06/02/24 Procedure(s): US breast BI limited mamm only Accession Number(s): [id number] cc: Carmen Bertrand DO EXAMINATION: US DIAGNOSTIC [...] 06/03/24 0841 DD/ 1400 TD/TT: 06/02/24 1454 Retort Unloader: us Carmen Bertrand DO IMG US PROCEDURES Final Resu lt * Hepatitis C Antibody with Reflex to HCV, RNA, Quantitative, Real-Time PCR (04/27/2024 2:02 PM EDT) Hepatitis C Antibody Nonreactive Nonreactive [facility] Comment:Antibodies to HCV no t detected; does not exclude early acuteHCV infection. Blood Venous blood specimen / Unknown 04/27/2024 2:02 PM EDT 04/27/2024 4:01 PM EDT us Carmen Bertrand DO LAB BLOOD ORDERABLES Final R esult [facility] [address] [place] [phone] * HIV Ab/Ag ([facility]) (02/21/2023 2:35 PM EDT) HIV AB/AG Nonreactive Nonreactive [facility] Comment:HIV-1 p24 Ag and/or HIV-1/HIV-2 Ab not detected.A test result that is nonreactive does not exclude thepossibility of exposure to or infection with HIV-1 and/orHIV-2. Nonreactive results in this assay for individualswith prior exposure to HIV-1 and/or HIV-2 may be due toantigen and antibody levels that are below the limit ofdetection of this assay.The [employer] HIV Ag/Ab Combo assay result andsupplemental assay results should be interpreted inconjunction with the patient's clinical presentation,history and other laboratory results. If the results areinconsistent with clinical evidence, additional testing issuggested to confirm the result. 02/21/2023 2:35 PM EDT 02/21/2023 2:37 PM EDT [facility] External Provider LAB BLO OD ORDERABLES Final Result [facility] [address] [place] [phone] [phone] from Last 3 Months or Most Recently Relevant to Health Maintenance Insurance [facility] < [address] [id number] Care Teams Pharmacy Tech Relationship Specialty Start Date End Date Carmen Bertrand DO [address] [place] [address] PCP - General Family Medicine 08/18/18
--- OUTSIDE RECORDS SUMMARY | 2024-12-31 11:49 | XMS_ITS | Encounter Summary ---
Author Organization [employer] Address [address] [facility] 7t [place] [address] Care Team Providers Care Coagulating Operator Name Role Phone Carmen Bertrand DO Primary Care Provider + [phone] Reason for Visit * Reason Comments Med Refill Encounter Details Date Type Department Care Team ([facility] Contact Info) Description 02/03/2023 Refill [facility] MEDICINE [address] [place] [address] Leticia Ramirez MD [address] [place] [address] Nonintractable headache, unspecified chronicity pattern, unspecified headache [...] Description 01/24/2025 1:00 PM EDT Clinical Support [facility] [address] [place] [address] Jessica Conway RN documented as of this encounter Visit Diagnoses Diagnosis Nonintractable headache, unspecified chronicity pattern, unspecified headache type documented in this encounter Additional Health Concerns Assessment Noted Time PHQ-9 Depression Total Score: 16 023 12:22 PM EST documented as of this encounter Care Teams Coagulating Operator Relationship Specialty Start Date End Date Carmen Bertrand DO [address] [place] [address] PCP - General Family Medicine 08/18/18 documented as of this encounter
--- OUTSIDE RECORDS SUMMARY | 2024-12-31 11:49 | XMS_ITS | Encounter Summary ---
Author Organization [employer] Address [address] [facility] 7t [place] [address] Care Team Providers Care Actuarial Director Name Role Phone Carmen Bertrand Primary Care Provider + [phone] Reason for Visit * Reason Comments Med Refill Encounter Details Date Type Department Care Team ([facility] st Contact Info) Description 12/28/2024 Refill [facility] MEDICINE [address] [place] [address] Irina Talley MD [address] [place], [place] [phone] Mild persistent asthma without complication Social History [...] Description 01/24/2025 1:00 PM EDT Clinical Support [facility] [address] [place] [phone] Jessica Conway RN documented as of this encounter Visit Diagnoses Diagnosis Mild persistent asthma without complication documented in this encounter Additional Health Concerns Assessment Noted Time PHQ-9 Depression Total Score: 22 024 11:00 AM EDT documented as of this encounter Care Teams Actuarial Director Relationship Specialty Start Date End Date Carmen Bertrand DO [address] [place] [address] PCP - General Family Medicine 08/18/18 documented as of this encounter
--- OUTSIDE RECORDS SUMMARY | 2024-12-31 11:49 | XMS_ITS | Encounter Summary ---
Author Organization [employer] Address [address] [facility] 7t [place] [address] Care Team Providers Care Brim Stretching Machine Operator Name Role Phone Carmen Bertrand DO Primary Care Provider + [phone] Reason for Visit * Reason Comments Med Refill Encounter Details Date Type Department Care Team ([facility] st Contact Info) Description 07/22/2023 Refill [facility] CHC MED & PEDS [address] [place], [place] [phone] Carmen Bertrand DO [address] [facility] [place] [address] Hyperlipidemia, unspecified hyperlipidemia type Social History Tobacco [...] 1:00 PM EDT Clinical Support [facility] MEDICINE [address] [place] [phone] Jessica Conway RN documented as of this encounter Visit Diagnoses Diagnosis Hyperlipidemia, unspecified hyperlipidemia type documented in this encounter Additional Health Concerns Assessment Noted Time PHQ-9 Depression Total Score: 21 023 11:26 AM EST documented as of this encounter Care Teams Brim Stretching Machine Operator Relationship Specialty Start Date End Date Carmen Bertrand DO [address] [place] [address] PCP - General Family Medicine 08/18/18 documented as of this encounter
--- OUTSIDE RECORDS SUMMARY | 2024-12-31 11:49 | XMS_ITS | Encounter Summary ---
Author Organization [employer] Address [address] [facility] 7t [place] [address] Care Team Providers Care Color Blender Name Role Phone Carmen Bertrand Primary Care Provider + [phone] Encounter Details Date Type Department Care Team ([facility] Contact Info) Description 12/28/2024 Orders Only [...] 01/24/2025 1:00 PM EDT Clinical Support [facility] [address] [place] [address] Jessica Conway RN documented as of this encounter Procedures Procedure Name Priority Date/Time Associated Diagnosis Comments CT HEAD WO CONTRAST Routine 12/28/2024 9 :40 PM EDT CBC WITH AUTO DIFFERENTIAL Routine 12/28/2024 8:25 PM EDT COMPREHENSIVE METABOLIC PANEL Routine 12/28/2024 8:25 PM EDT documented in this encounter Results * CT Head w/o Contrast (12/28/2024 9:40 PM EDT) Anatomical Region Laterality Modality Head, Neck Computed Tomogra phy 12/28/2024 9:40 PM EDT Narrative 12/28/2024 9:42 PM EDT ? [facility] ?[address] ?[place] [address] ? CT Scan Report ? Signed ? Patient: Blaire Quiroz ?MR#: M ?? [id number] ? : 1975 ?Acct:[id number] ? Age/Sex: 49 / F ?ADM Date: 05/13/25 ? Loc: HO.ED ? Attending Dr: ? Ordering Physician: Anita Alegre NP ?? Date of Service: 12/28/24 ?? Procedure(s): CT head/brain wo IV con ?? Accession Number(s): [id number] ? cc: Carmen Bertrand DO; Anita Alegre NP ? Report Number: ?? [id number]: Total DLP = ??767.00 mGy-cm ? CLINICAL [...] by Jaydon Juan MD in OV> ? 12/28/242 ? DD/ 39 ? TD/TT: 12/28/242139 ? Computer Mechanic: ? Procedure Note Dawna Lora - 12/28/[address] [place] [address] [address] Scan Report Signed Patient: Christianne Quiroz#: M [id number] : 1975Acct:[id number] Age/Sex: 49 / FADM Date: 12/28/24 Loc: HO.ED Attending Dr: Ordering Physician: Anita Alegre NP Date of Service: 12/28/24 Procedure(s): CT head/brain wo IV con Accession Number(s): [id number] cc: Carmen Bertrand DO; Anita Alegre NP Report Number: [id number]: Total DLP = 767.00 mGy-cm CLINICAL HISTORY: [...] in OV> 12/28/242141 DD/ 39 TD/TT: 12/28/242139 Computer Mechanic: [facility] External Provider IMG CT PROCEDURES Final Result * (ABNORMAL) Comprehensive Metabolic Panel (12/28/2024 8:25 PM EDT) Sodium 141 135 - 145 mmol/L [facility] Potassium 4.0 3.3 - 5.1 mmol/L [facility] Chloride 108 96 - 108 mmol/L [facility] Carbon Dioxide 24 22 - 29 mmol/L [facility] Anion Gap 13 12 - 20 [facility] Urea Nitrogen (BUN) 19(H) 9 - 16 mg/dL [facility] Creatinine, Serum 0.81 0.5 - 1.4 mg/dL [facility] Creatinine Clr Calc Pharmacy 132.9 [facility] Comment:Provided height and weight: 172.72 cm,151.953 kg.eGFR (calculated from the MDRD study equation) and eCrCl(calculated from the Cockcroft-Gault equation) are based ondifferent parameters and may not yield comparable results.If eCrCl result is absurd, please check patient'sheight/weight. Estimated Glomerular Filt Rate >60 [facility] Comment:Chronic Kidney Disea se: Estimated GFR < 60 mL/min/[id number] Kidney Disease: Estimated GFR < 15 mL/min/1.73m2 Glucose 106 60 - 115 mg/dL [facility] Calcium 9.1 8.4 - 10.2 mg/dL [facility] Bilirubin, Total 0.3 0.0 - 1.0 mg/dL [facility] Aspartate Amino Transferase 28 5 - 31 U/L [facility] Alanine Aminotransferase 16 0 - 31 U/L [facility] Total Protein 7.2 6.5 - 8.0 g/dL [facility] Albumin Level 3.5 3.5 - 5.0 g/dL [facility] Alkaline Phosphatase 80 39 - 117 U/L [facility] 12/28/2024 8:25 PM EDT 12/28/2024 8:27 PM EDT us Generic External Data Provider LAB BLOOD ORDERAB LES Final Result [facility] [address] [place] [address] [phone] * (ABNORMAL) CBC auto differential (12/28/2024 8:25 PM EDT) White Blood Count 12.3(H) 4.8 - 10.8 X10*3/uL [facility] Red Blood Count 3.68(L) 4.20 - 5.50 X10*6/uL [facility] Hemoglobin 11.6(L) 12.0 - 16.0 g/dl [facility] Hematocrit 33.5(L) 37.0 - 47.0 % [facility] Mean Corpuscular Volume 91.0 80.0 - 98.0 fL [facility] Mean Corpuscular Hemoglobin 31.5 27.0 - 33.0 pg [facility] Mean Corpuscular HGB Conc 34.6 31.0 - 35.0 g/dl [facility] Red Cell Distribution Width 14.1 11.0 - 16.0 % [facility] Platelet Count 262 160 - 400 X10*3/uL [facility] Mean Platelet Volume 9.3(L) 9.4 - 12.3 fL [facility] Neutrophils Percent Auto 56.5 45 - 73 % [facility] Imm Gran Pct Auto 0.4 0.0 - 0.4 % [facility] Lymphocytes Percent Auto 32.1 20 - 40 % [facility] Monocytes Percent Auto 7.6 2 - 11 % [facility] Eosinophils Percent Auto 2.7 0 - 4 % [facility] Basophils Percent Auto 0.7 0 - 2 % [facility] NRBC Pct Auto 0.0 0.0 - 0.2 /100WBC [facility] Neutrophils Absolute Auto 7.0 2.0 - 8.3 x10*3/uL [facility] Imm Gran Abs Auto 0.05(H) 0.00 - 0.03 X10*3/uL [facility] Lymphocytes Absolute Auto 4.0 1.2 - 4.9 X10*3/uL [facility] Monocytes Absolute Auto 0.9 0.1 - 1.2 X10*3/uL [facility] Eosinophils Absolute Auto 0.3 0.0 - 0.4 X10*3/uL [facility] Basophils Absolute Auto 0.1 0.0 - 0.2 X10*3/uL [facility] NRBC Abs Auto 0.000 0.0 - 0.012 X10*3/uL [facility] 12/28/2024 8:25 PM EDT 12/28/2024 8:27 PM EDT us Generic External Data Provider LAB BLOOD ORDERAB LES Final Result Performing Organization Address City/State/[facility] Co de Phone Number [facility] [address] [place] [phone] documented in this encounter Visit Diagnoses Not on filedocumented in this encounter Additional Health Concerns Assessment Noted Time PHQ-9 Depression Total Score: 22 024 11:00 AM EDT documented as of this encounter Care Teams Color Blender Relationship Specialty Start Date End Date Carmen Bertrand DO [address] [place] [address] PCP - General Family Medicine 08/18/18 documented as of this encounter
--- OUTSIDE RECORDS SUMMARY | 2024-12-31 11:49 | XMS_ITS | Encounter Summary ---
Author Organization [email or web address] Address [address] [facility] 7t [place] [address] Care Team Providers Care Accounting Systems Analyst Name Role Phone Carmen Bertrand DO Primary Care Provider + [phone] Reason for Visit * Reason Comments Med Refill Encounter Details Date Type Department Care Team ([facility] st Contact Info) Description 03/16/2024 Refill [facility] CHC MED & PEDS [address] [place], [place] [phone] Carmen Bertrand DO [address] [facility] [place] [address] Chronic low back pain, unspecified back pain [...] Clinical Support [facility] MEDICINE [address] [place] [address] Jessica Conway RN documented as of this encounter Visit Diagnoses Diagnosis Chronic low back pain, unspecified back pain laterality, unspecified whether sciatica present documented in this encounter Additional Health Concerns Assessment Noted Time PHQ-9 Depression Total Score: 21 023 11:26 AM EST documented as of this encounter Care Teams Accounting Systems Analyst Relationship Specialty Start Date End Date Carmen Bertrand DO [address] [place] [address] PCP - General Family Medicine 08/18/18 documented as of this encounter
--- OUTSIDE RECORDS SUMMARY | 2024-12-31 11:49 | XMS_ITS | Encounter Summary ---
Author Organization [employer] Address [address] [facility] 7t [place] [address] Care Team Providers Care Lace Pinner Name Role Phone Carmen Bertrand DO Primary Care Provider + [phone] Reason for Visit * Reason Comments Med Refill Encounter Details Date Type Department Care Team ([facility] st Contact Info) Description 05/12/2024 Refill [facility] CHC MED & PEDS [address] [place], [place] [phone] Carmen Bertrand DO 230 [facility] [place] [address] Chronic low back pain, unspecified back pain [...] Description 01/24/2025 1:00 PM EDT Clinical Support [facility] MEDICINE [address] [place] [address] Jessica Conway, RULA documented as of this encounter Visit Diagnoses Diagnosis Chronic low back pain, unspecified back pain laterality, unspecified whether sciatica present documented in this encounter Additional Health Concerns Assessment Noted Time PHQ-9 Depression Total Score: 22 024 11:00 AM EDT documented as of this encounter Care Teams Lace Pinner Relationship Specialty Start Date End Date Carmen Bertrand DO [address] [place] [address] PCP - General Family Medicine 08/18/18 documented as of this encounter
--- OUTSIDE RECORDS SUMMARY | 2024-12-31 11:49 | XMS_ITS | Encounter Summary ---
Author Organization [email or web address] Address [address] [facility] 7t [place] [address] Care Team Providers Care Interpretative Dancer Name Role Phone Carmen Bertrand DO Primary Care Provider [phone] Encounter Details Date Type Department Care Team (Late st Contact Info) Description 09/09/2022 Orders Only [facility] CHC MED & PEDS [address] [place] [address] Carmen Perez LPN Social History Tobacco Use [...] Description 01/24/2025 1:00 PM EDT Clinical Support [facility] MEDICINE [address] [place] [address] Jessica Conway, RULA documented as of this encounter Visit Diagnoses Not on filedocumented in this encounter Care Teams Interpretative Dancer Relationship Specialty Start Date End Date Carmen Bertrand DO [address] [place] [address] PCP - General Family Medicine 08/18/18 documented as of this encounter
--- OUTSIDE RECORDS SUMMARY | 2024-12-31 11:49 | XMS_ITS | Encounter Summary ---
Author Organization [employer] Address [address] [facility] 7t [place] [address] Care Team Providers Care Housekeeper Name Role Phone Carmen Bertrand DO Primary Care Provider + [phone] Reason for Visit * Reason Comments Med Refill Encounter Details Date Type Department Care Team ([facility] st Contact Info) Description 02/24/2024 Refill [facility] MEDICINE [address] [place] [address] Carmen Bertrand DO [address] [place] [address] Social History Tobacco Use Types Packs/Day Years [...] Description 01/24/2025 1:00 PM EDT Clinical Support [facility] MEDICINE [address] [place] [phone] Jessica Conway RN documented as of this encounter Visit Diagnoses Not on filedocumented in this encounter Additional Health Concerns Assessment Noted Time PHQ-9 Depression Total Score: 21 023 11:26 AM EST documented as of this encounter Care Teams Housekeeper Relationship Specialty Start Date End Date Carmen Bertrand DO [address] [place] [address] PCP - General Family Medicine 08/18/18 documented as of this encounter
--- OUTSIDE RECORDS SUMMARY | 2024-12-31 11:50 | XMS_ITS | Encounter Summary ---
Author Organization [employer] Address 75 [facility] 7t [place] [address] Care Team Providers Care Nurse Practical Name Role Phone Carmen Bertrand Primary Care Provider + [phone] Reason for Visit * Reason Comments Med Refill Encounter Details Date Type Department Care Team ([facility] st Contact Info) Description 01/13/2024 Refill [facility] MEDICINE [address] [place] [address] Rox Sutton MD [address] [place] [address] Pain Social History Tobacco Use Types Packs/Day [...] Description 01/24/2025 1:00 PM EDT Clinical Support [facility] MEDICINE [address] [place] [phone] Jessica Conway RN documented as of this encounter Visit Diagnoses Diagnosis Pain Generalized pain documented in this encounter Additional Health Concerns Assessment Noted Time PHQ-9 Depression Total Score: 21 023 11:26 AM EST documented as of this encounter Care Teams Nurse Practical Relationship Specialty Start Date End Date Carmen Bertrand DO [address] [place] [address] PCP - General Family Medicine 08/18/18 documented as of this encounter
--- OUTSIDE RECORDS SUMMARY | 2024-12-31 11:50 | XMS_ITS | Encounter Summary ---
Author Organization [employer] Address [address] [facility] 7t [place] [address] Care Team Providers Care Bench Patternmaker Metal Name Role Phone Carmen Bertrand DO Primary Care Provider + [phone] Reason for Visit * Reason Onset Date Comments telephone call 12/29/2024 Encounter Details Date Type Department Care Team ([facility] Contact Info) Description 12/29/2024 Telephone [facility] [address] [place] [address] Carmen Bertrand DO [address] [place] [address] telephone call Social History Tobacco Use Types Packs/Day Years [...] encounter Miscellaneous Notes * Telephone Encounter - Lisa Rios RN - 12/29/2024 4:22 PM EDT Message below was reviewed with PCP. PCP reports general surgery referral was intended to be placedfor cyst on head and referral can still be placed. Pt. Reports referral was not discussed at walk in appt today and would still like it placed. * Telephone Encounter - Aydee Whittaker - 12/29/2024 10:45 AM EDT Pt walked in stating she has a bump on her head it has been like this for 3 months she did speak to about it in her appt before and she was going to send a referral for it but she hasn't received anything on it. She is concerned because she says its getting bigger. She does have a appt today in walk in but she doesn't know if she will be able to make it in the time they scheduled her for. documented in this encounter Plan of Treatment Upcoming Encounters Date Type Department Care Team (Late st Contact Info) Description 01/24/2025 1:00 PM EDT Clinical Support [facility] [address] [place] [id number] Jessica Conway, RULA documented as of this encounter Visit Diagnoses Not on filedocumented in this encounter Additional Health Concerns Assessment Noted Time PHQ-9 Depression Total Score: 22 024 11:00 AM EDT documented as of this encounter Care Teams Bench Patternmaker Metal Relationship Specialty Start Date End Date Carmen Bertrand DO [address] [place] [address] PCP - General Family Medicine 08/18/18 documented as of this encounter
--- OUTSIDE RECORDS SUMMARY | 2024-12-31 11:50 | XMS_ITS | Encounter Summary ---
Author Organization [employer] Address [address] [facility] 7t [place] [address] Care Team Providers Care Belt Measurer Name Role Phone Elza Carmen Primary Care Provider + [phone] Reason for Referral * Consultation (Routine) - Authorized Specialty Diagnoses / Procedures Referred By Jackie charlton Referred To Contact General Surgery Diagnoses Dermoid cyst of head Frances Austin MD [address] [place] [address] Phone: tel: fax: Man Oviedo MD [address] [place] [address] 3rd [place] [address] Phone: tel: fax: Referral ID Status Reason Start Date Expiration Date Visits Requested Visits Authorized [id number] Authorized Specialty Services Required 12/29/2024 12/29/2025 1 1 Reason for Visit * Reason Comments Mass Encounter Details Date Type Department Care Team (Late st Contact Info) Description 12/29/2024 3:20 PM EDT Office Visit [facility] [address] [place] [address] Frances Austin MD [address] [place] [phone] Dermoid cyst of head (Primary Dx) Social History Tobacco Use Types [...] ??F) 12/29/2024 2:57 PM EDT Respiratory Rate - - Oxygen Saturation 98% 12/29/2024 2:57 PM EDT Inhaled Oxygen Concentration - - Weight 158 kg (349 lb 4 oz) 12/29/2024 2:57 PM E DT Height 170.2 cm (5' 7 ) 12/29/2024 2:57 PM EDT Body Mass Index 54.7 12/29/2024 2:57 PM EDT documented in this encounter Progress Notes * Frances Austin MD - 12/29/2024 3:20 PM EDT SUBJECTIVE: Blaire Jean is a 49 y.o. year old female who presents for Walk In Center/bump on back of her head. Denies recent illness, injury, or hospitalization. Acute Concerns: Complains of tender bump on occipital area for about 2 or 3 months. No history of trauma, rash, fever or weight loss. Social History Social History Narrative Not on file Patient Active Problem List Diagnosis Essential hypertension Microscopic hematuria Mild persistent asthma Obstructive sleep apnea Posttraumatic stress disorder Major depression, recurrent, chronic (CMS/HCC) Nephrolithiasis Fatty liver BMI 50.0-59.9, adult (CMS/HCC) Prediabetes Tobacco dependence History of non-ST elevation myocardial infarction (NSTEMI) Chronic migraine Hyperlipidemia Osteoarthritis of knees, bilateral Chronic low back pain Leukocytosis Hirsutism Melasma Chronic pain of both knees Precordial pain Coronary artery disease S/P cardiac catheterization Dermoid cyst of head Family History Problem Relation Name Age of Onset Glaucoma Mother Review of Systems Constitutional: Negative for chills, fatigue and fever. HENT: Negative for congestion, ear pain, nosebleeds, rhinorrhea, sinus pressure, sore throat and trouble swallowing. Eyes: Negative for pain and discharge. Respiratory: Negative for cough, chest tightness and shortness of breath. Cardiovascular: Negative for chest pain, palpitations and leg swelling. Gastrointestinal: Negative for abdominal pain, blood in stool, constipation, diarrhea and nausea. Endocrine: Negative for polydipsia and polyuria. Genitourinary: Negative for dysuria, frequency, genital sores, pelvic pain and vaginal discharge. Musculoskeletal: Negative for back pain and neck pain. Skin: Negative for rash. Allergic/Immunologic: Negative for environmental allergies. Neurological: Positive for headaches. Negative for dizziness, seizures, weakness and light-headedness. Hematological: Negative for adenopathy. Psychiatric/Behavioral: Negative for agitation, behavioral problems, self-injury and suicidal ideas. OBJECTIVE: Vitals: 12/29/24 1457 BP: (!) 141/80 Pulse: 81 Temp: 97 ??F (36.1 ??C) SpO2: 98% Physical Exam HENT: Head: Mass (2cm left occipital area/fuctuating, mobile) present. Right Ear: Tympanic membrane and ear canal normal. Left Ear: Tympanic membrane and ear canal normal. Mouth/Throat: Mouth: Mucous membranes are moist. Pharynx: No oropharyngeal exudate or posterior oropharyngeal erythema. Eyes: Pupils: Pupils are equal, round, and reactive to light. Cardiovascular: Rate and Rhythm: Regular rhythm. Pulses: Normal pulses. Heart sounds: Normal heart sounds. No murmur heard. Pulmonary: Breath sounds: Normal breath sounds. Abdominal: General: Bowel sounds are normal. Palpations: Abdomen is soft. Tenderness: There is no abdominal tenderness. Musculoskeletal: General: Normal range of motion. Cervical back: Neck supple. Skin: General: Skin is warm. Neurological: General: No focal deficit present. Mental Status: She is alert and oriented to person, place, and time. Psychiatric: Mood and Affect: Mood normal. Behavior: Behavior normal. Problem List Items Addressed This Visit Dermoid cyst of head - Primary On left occipital area, no signs of infection. Reassurance, I explained the patient did not back on the area and return to clinic if she develops significant enlargement of the lesion, discharge, erythema or fever I will refer her to surgery for excision, she understands that these lesions tend to recur with time Relevant Orders Referral to General Surgery Follow Up: Current Outpatient Medications on File Prior to Visit Medication Sig Dispense Refill albuterol (2.5 MG/3ML) 0.083% nebulizer solution INHALE 1-2 AMPULE USING A NEBULIZER EVERY 4 TO 6 HOURS NEEDED FOR COUGH, WHEEZING, OR SHORTNESS OF BREATH 90 mL 3 albuterol (Ventolin HFA) 108 (90 Base) MCG/ACT inhaler INHALE 2 PUFFS BY MOUTH EVERY 4 TO 6 HOURS NEEDED 18 g 0 allopurinol (Zyloprim) 100 MG tablet TAKE 1 TABLET BY MOUTH DAILY amLODIPine (Norvasc) 5 MG tablet Take 1 tablet by mouth Once per day. aspirin (Aspirin Low Dose) 81 MG chewable tablet CHEW 1 TABLET BY MOUTH EVERY DAY IN THE MORNING 90tablet 0 atorvastatin (Lipitor) 80 MG tablet TAKE 1 TABLET BY MOUTH EVERY DAY 90 tablet 3 baclofen (Lioresal) 10 MG tablet TAKE 1 TABLET BY MOUTH THREE TIMES DAILY NEEDED FOR MUSCLE SPASMS 60 tablet 2 benzoyl peroxide (PanOxyl Foaming Wash) 10 % external wash Apply topically Once per day. 227 g 2 usjfnze-ssrdqERLMLGMF-khxvzsgvjdaj (Pylera) 140-125-125 MG capsule Take 3 capsules by mouth before breakfast, before lunch, before evening meal, and at bedtime for 14 days. Follow each dose with 8 ozof water. 168 capsule 0 Blood Pressure kit 1 each 1 (one) time per week. 1 kit 0 Brilinta 90 MG tablet TAKE 1 TABLET BY MOUTH TWICE DAILY 60 tablet 1 chlorhexidine (Hibiclens) 2 % external liquid Apply topically Once per day. Apply topically daily xone week then use as needed 236 mL 2 clopidogrel (Plavix) 75 MG tablet Take 1 tablet by mouth Once per day. D3 Super Strength 50 MCG (2000 UT) capsule TAKE 1 CAPSULE BY MOUTH ONCE DAILY 90 capsule 3 econazole nitrate 1 % cream APPLY TOPICALLY TO AFFECTED AREA(S) TWICE DAILY DIRECTED 85 g 1 emtricitabine-tenofovir DF (Truvada) 200-300 MG tablet TAKE 1 TABLET BY MOUTH EVERY DAY 30 tablet 2 ergocalciferol (Vitamin D2) 1.25 MG (04304 UT) capsule Take 1 capsule (1.25 mg) by mouth 1 (one) time per week. 12 capsule 0 ezetimibe (Zetia) 10 MG tablet TAKE 1 TABLET BY MOUTH EVERY DAY famotidine (Pepcid) 40 MG tablet TAKE 1 TABLET BY MOUTH EVERY DAY AT BEDTIME NEEDED FOR HEARTBURN 30 tablet 3 fluticasone (Flonase) 50 MCG/ACT nasal spray INSTILL 2 SPRAYS IN EACH NOSTRIL ONCE DAILY 48 g 3 fluticasone (Flovent) 110 MCG/ACT inhaler INHALE 2 PUFFS TWICE DAILY IN THE MORNING AND AT BEDTIME.RINSE MOUTH AFTER USING. DO NOT SWALLOW. 12 g 11 hydroCHLOROthiazide 12.5 MG tablet Take 1 tablet by mouth Once per day. hydroquinone 4 % cream APPLY TOPICALLY TWICE DAILY 28.35 g 1 isosorbide mononitrate ER (Imdur) 60 MG 24 hr tablet Take 1 tablet (60 mg) by mouth Once per day. Do not crush or chew. 30 tablet 11 lisinopril 30 MG tablet Take 1 tablet (30 mg) by mouth Once per day. 30 tablet 11 metFORMIN XR (Glucophage-XR) 500 MG 24 hr tablet Take 2 tablets (1,000 mg) by mouth with evening meal. 180 tablet 3 metoprolol succinate XL (Toprol-XL) 50 MG 24 hr tablet TAKE 1 TABLET BY MOUTH EVERY DAY 90 tablet 1 metroNIDAZOLE (Metrogel) 0.75 % gel APPLY TOPICALLY TO THE AFFECTED AREA(S) ON THE FACE EVERY DAY NEEDED 45 g 1 mirtazapine (Remeron) 7.5 MG tablet TAKE 1 TABLET BY MOUTH AT BEDTIME, Ya no tomes quetiapine o paroxetine naloxone (Narcan) 4 mg/0.1 mL nasal spray Administer 1 spray (4 mg) into affected nostril(s) if needed for opioid reversal. May repeat every 2-3 minutes if needed, alternating nostrils, until medicalassistance becomes available. 2 each 3 nitroglycerin (Nitrostat) 0.[address] 1 tablet (0.4 mg) under the tongue every 5 (five) minutes if needed for chest pain. X 3 doses. Call 911 if chest pain does not resolve 30 tablet 0 omeprazole (PriLOSEC) [address] capsule Take 2 capsules (40 mg) by mouth before breakfast and beforeevening meal. Do not crush or chew. 120 capsule 11 pyridoxine (Vitamin B-6) 100 MG tablet TAKE 1 TABLET BY MOUTH EVERY DAY Tirzepatide-Weight Management (Zepbound) 5 MG/0.5ML solution auto-injector Inject 0.5 mL (5 mg) under the skin 1 (one) time per week. 2 mL 3 topiramate 50 MG tablet TAKE 1 TABLET BY MOUTH TWICE DAILY 60 tablet 5 traMADol (Ultram) 50 MG tablet Take 1 tablet (50 mg) by mouth every 8 (eight) hours if needed for severe pain for up to 28 days. 84 tablet 0 No current facility-administered medications on file prior to visit. documented in this encounter Miscellaneous Notes * Assessment & Plan Note - Frances Austin MD - 12/29/2024 4:45 PM EDT Associated Problem(s): Dermoid cyst of head On left occipital area, no signs of infection. Reassurance, I explained the patient did not back on the area and return to clinic if she develops significant enlargement of the lesion, discharge, erythema or fever I will refer her to surgery for excision, she understands that these lesions tend to recur with time documented in this encounter Plan of Treatment Upcoming Encounters Date Type Department Care Team (Late st Contact Info) Description 01/24/2025 1:00 PM EDT Clinical Support [facility] [address] [place] [address] Jessica Conway RN Scheduled Referrals Name Type Priority Associated Diagnoses Orde r Schedule Referral to General Surgery Outpatient Referral Routine Dermoid cyst of head Expected: 12/29/2024 (Approximate), Expires: 12/29/2025 documented as of this encounter Visit Diagnoses Diagnosis Dermoid cyst of head- Primary documented in this encounter Additional Health Concerns Assessment Noted Time PHQ-9 Depression Total Score: 22 024 11:00 AM EDT documented as of this encounter Care Teams Belt Measurer Relationship Specialty Start Date End Date Carmen Bertrand DO [address] [place] [address] PCP - General Family Medicine 08/18/18 documented as of this encounter
--- OUTSIDE RECORDS SUMMARY | 2024-12-31 11:50 | XMS_ITS | Encounter Summary ---
Author Organization [employer] Address [address] [facility] 7t [place] [address] Care Team Providers Care Batchmaker Name Role Phone Carmen Bertrand DO Primary Care Provider + [phone] Reason for Visit * Reason Onset Date Comments Hospital Follow-up 11/12/2024 Encounter Details Date Type Department Care Team ([facility] Contact Info) Description 11/12/2024 Telephone [facility] [address] [place] [address] Carmen Bertrand DO [address] [place] [address] Hospital Follow-up Social History Tobacco Use Types [...] from pt requesting a HDF appt. Hospital: [facility] Date of admission: 11/07/2024 Discharge date: 11/12/2024 Diagnosed: heart attack *Send message to [facility] Clinical Care Coordinators documented in this encounter Plan of Treatment Upcoming Encounters Date Type Department Care Team (Late st Contact Info) Description 01/24/2025 1:00 PM EDT Clinical Support [facility] [address] [place] [address] Jessica Conway, RULA documented as of this encounter Visit Diagnoses Not on filedocumented in this encounter Additional Health Concerns Assessment Noted Time PHQ-9 Depression Total Score: 22 024 11:00 AM EDT documented as of this encounter Care Teams Batchmaker Relationship Specialty Start Date End Date Carmen Bertrand DO [address] [place] [address] PCP - General Family Medicine 08/18/18 documented as of this encounter
== END 2024-12-31 11:37 | disposition home or self-care (01) ==
LOC: HO.HOSX 11:36
PROVIDERS: Visit Provider Physician Assistant
DX: M25.561 Pain in right knee (principal); M25.562 Pain in left knee; M17.0 Bilateral primary osteoarthritis of knee; G89.29 Other chronic pain; E66.01 Morbid (severe) obesity due to excess calories; Z68.43 Body mass index [BMI] 50.0-59.9, adult
CPT/HCPCS: 20610; 73562; 99212; J1010; J2003

== ENCOUNTER 2024-12-31 13:14 | Outpatient (AMB) | payer OTHER, SELFPAY ==
[2022-10-22 13:00] VITALS: BP 128/72; BP 148/88; BMI 63.7
[2024-12-31 11:15] VITALS: BP 128/72; BP 140/60; BP 148/88; BMI 63.7
--- OUTSIDE RECORDS SUMMARY | 2024-12-31 13:17 | XMS_ITS | Encounter Summary ---
Author Organization [employer] Address [address] [facility] 7t [place] [address] Care Team Providers Care Supply Chain Business Analyst Name Role Phone Carmen Bertrand DO Primary Care Provider + [phone] Reason for Visit * Reason Comments Med Refill Encounter Details Date Type Department Care Team ([facility] st Contact Info) Description 03/16/[address] [facility] MED & PEDS [address] [place], [place] [phone] Carmen Bertrand DO [address] [place] [address] Chronic low back pain, unspecified back pain [...] PM EDT Clinical Support [facility] [address] [place] [address] Jessica Conway RN documented as of this encounter Visit Diagnoses Diagnosis Chronic low back pain, unspecified back pain laterality, unspecified whether sciatica present documented in this encounter Additional Health Concerns Assessment Noted Time PHQ-9 Depression Total Score: 21 023 11:26 AM EST documented as of this encounter Care Teams Supply Chain Business Analyst Relationship Specialty Start Date End Date Carmen Bertrand DO [address] [place] [address] PCP - General Family Medicine 08/18/18 documented as of this encounter
--- OUTSIDE RECORDS SUMMARY | 2024-12-31 13:17 | XMS_ITS | Data Portability ---
Author Organization [facility], In in - [facility] Address [address] [place] [id number] Care Team Providers Care Qa Engineer Name Role Phone [employer] OTHER [facility] OTHER Assessment Encounter Date Assessment Date Assessment [...] rapid flu (A+B) 2024 025 [facility], [address] [place] [address], [phone] 5 15:45:24 rapid SARS CoV 2 Ag, QL IA, respiratory specimen [address], [phone] 5 15:45:08 Referral None recorded. Procedures None recorded. Surgeries None recorded. Imaging None recorded. Medication Orders albuterol sulfate 2.5 mg/3 mL (0.083 %) solution for nebulizatio n 2024 025 [id number], [address] [place], [address], 18:27:03 Patient TargetsNo targets recorded. Patient InstructionsNo [...] Name and Address Organization Details Recorded Time 76244 aspirin medicatio n Not available Not available Not available 10/05/2024 1191 RxNorm Not Available [facility] - production 5 13:36:43 53704 penicilli n V Not available Not available Not available Not available 10/05/2024 7984 RxNorm Not Available [facility] - production 5 13:36:43 82042 penicilli n G procaine medicatio n Not available Not available Not available 10/05/2024 7983 RxNorm Not Available [facility] - production 5 13:36:43 30263 penicilli n G benzathin e medicatio n [...] % 172.72 cm 18 /min 98.4 [degF] 019614. 272 g 131 mm[Hg] 78 mm[Hg] Not [...] SNOMED-CT Code Diagnosis ICD10 Code Diagnosis Note [id number] Reese Jarvis MD Main - [facility] [address] [place] [phone] 10/05/2024 14:55:01 10/07/2024 08:39:41 Wheezing [id number] R06.2 Health Concerns Section Related Observation LastModified by Organization Detai ls LastModified Time None Recorded Concern Status LastModified by Organization Details LastModified Time None Recorded Advance Directives Directive None Recorded Payers Insurance Date Sequence Insurance Name Policy Number Policy Parra Covered Member ID Parra Member ID Guarantor Name 10/05/2024 1 [facility] - DOS ON OR AFTER 2022 - DUAL ELIGIBLE - [employer] OPTIONS AND ONE CARE (MEDICARE REPLACEMENT/ADV ANTAGE - HMO) Blaire Santosminnie Jean [id number] Blaire Maria Luisa Jean Notes Date Note Type Note Provider Name and Address Organization Details Recorded Time 10/05/2024 text/html HPI: Call returned to Blaire Jean to triage below. Reports having Headache, Fever, Body Aches, Sore Throat, Runny Nose x 3 days. Per pt seen at [facility] ER on Friday. Per pt seen for CP. Had testing done while in ER. Pt had negative homekit for COVID-19 last night. Reports having SOB with exertion. No wheezing. Pt speaking in clear full sentences. Pt advised of disposition, unable to come into [facility]. Agrees to [facility] for evaluation. Confirmed demographics and allergies. .................. .................. .................. .................. .................. .................. .................. ............... CRC Nurse Triage Notes (Radha Martinez - RN): Chief Complaints: Cough, Fever/chills, Headache, Sore throat, Breathing problems PMH: Hypertension, Asthma, Coronary Artery Disease PMH Reviewed at 10/05/2024 - 13:36 Allergies Reviewed at 10/05/2024 - 13:36 Comments: CRC RN did not require any additional information to process this visit. Monitoring Specialist Organization Information for Ankita Castillo Business Legal Name: Your.MD? Address: [address] [place] [address], Format Proofreader: Marino Dow MD CLIA No.: [id number] Monitoring Specialist POC Test Results from Ankita Castillo Rapid COVID antigen (14:56:21) COVID: - Rapid influenza antigen (14:56:24) Flu: - Rapid strep test (14:56:25) Strep: - .................. .................. .................. .................. .................. .................. .................. ............... Monitoring Specialist Note From Ankita Castillo: Sent to a call for a pt complaining of URI symptoms. SC8 arrives on scene, pt is alert and oriented, airway is patent. Pt complains of URI symptoms since Friday. Pt states she had chest tightness Friday-Friday, but was evaluated at [facility] ED on Friday. Pt states she had [...] administered; Lung sounds: clear bilaterally; SpO2:98% RA; [facility] consulted and sends script to pt's pharmacy for Albuterol neb solutions. Red flags discussed. Pt has no further questions. .................. .................. .................. .................. .................. .................. .................. ............... [facility] Consulted: Reese Jarvis .................. .................. .................. .................. .................. .................. .................. ............... Disposition: Fulfilled Reese Jarvis MD [address] [facility],[address], [place], [phone], BHAVIN - BERNADINE CADENA 10/06/2024 15:39:31 OBGyn Episode No OBEpisode recorded.
--- OUTSIDE RECORDS SUMMARY | 2024-12-31 13:17 | XMS_ITS | Encounter Summary ---
Author Organization [employer] Address [address] [facility] [address] [place] [address] Care Team Providers Care Paintless Dent Repair Technician Name Role Phone Carmen Bertrand DO Primary Care Provider + [phone] Reason for Visit * Reason Comments Med Refill Encounter Details Date Type Department Care Team ([facility] st Contact Info) Description 05/12/2024 Refill [facility] MED & PEDS [address] [place], [place] [phone] Carmen Bertrand DO [address] [place] [address] Chronic low back pain, unspecified back pain [...] Support [facility] [address] [place] [address] Jessica Conway, RULA documented as of this encounter Visit Diagnoses Diagnosis Chronic low back pain, unspecified back pain laterality, unspecified whether sciatica present documented in this encounter Additional Health Concerns Assessment Noted Time PHQ-9 Depression Total Score: 22 024 11:00 AM EDT documented as of this encounter Care Teams Paintless Dent Repair Technician Relationship Specialty Start Date End Date Carmen Bertrand DO [address] [place] [address] PCP - General Family Medicine 08/18/18 documented as of this encounter
--- OUTSIDE RECORDS SUMMARY | 2024-12-31 13:17 | XMS_ITS | Clinical Summary ---
Author Organization [employer] Address [address] [facility] 7[address] [place] [address] Care Team Providers Care Facilities Maintenance Technician Name Role Phone Carmen Bertrand DO Primary Care Provider + [phone] Allergies Active Allergy Reactions Criticality Noted Date [...] 2025 Active ergocalciferol (Vitamin D2) 1.25 MG (45937 UT) capsule Take 1 capsule (1.25 mg) [...] Description 12/29/2024 3:20 PM EDT Office Visit [facility] [address] [place] [address] Frances Austin MD Dermoid cyst of head (Primary Dx) 12/29/[address] [facility] MEDICINE [address] [place] [address] Carmen Bertrand DO telephone call 12/28/2024 Orders Only GENERIC EXTERNAL DATA DEPARTMENT Provider, Generic External Data 12/28/[address] [facility] MED[facility] [address] [place] [address] Irina Talley MD Mild persistent asthma without complication 12/13/2024 Orders Only GENERIC EXTERNAL DATA DEPARTMENT Provider, Generic External Data 12/07/2024 Refill [facility] MED & PEDS [address] [place] [address] Carmen Bertrand DO Chronic low back pain, unspecified back pain laterality, unspecified whether sciatica present 12/05/[address] [facility] MEDICINE [address] [place] [address] Cramen Bertrand DO 12/05/[address] [facility] MEDIC[facility] [address] [place] [address] Irina Talley MD [place] 12/03/[address] [facility] MED[facility]INE [address] [place] [phone] Alexandra Lisa MD Acanthosis nigricans 12/01/[address] [facility] MED[facility]INE [address] [place] [phone] Lisa Rios RN Care Coordination 11/30/2024 9:15 AM EDT Office Visit [facility] MEDICINE [address] [place] [phone] Carmen Bertrand DO Coronary artery disease involving point hope ira coronary artery of point [place] ira heart, unspecified whether angina present (Primary Dx) 11/30/2024 Travel 11/19/2024 Refill [facility] MED [facility] PEDS [address] [place] [address] Carmen Bertradn DO 11/12/2024 Patient Outreach [facility] [address] [place] [address] Carmen Bertrand DO Transition Of Care (Tcm) (HDF scheduled. ) 11/12/[address] [facility] MED[facility] [address] [place] [phone] Carmen Bertrand DO Hospital Follow-up 11/07/2024 Orders Only GENERIC EXTERNAL DATA DEPARTMENT Provider, Generic External Data 11/05/[address] [facility] MED[facility]INE [address] [place] [phone] Carmen Bertrand DO On pre-exposure prophylaxis for HIV 11/04/2024 Refill [facility] PED[facility] [address] [place] [address] Carmen Bertrand DO Chronic low back pain, unspecified back pain laterality, unspecified whether sciatica present 11/01/[address] [facility] MEDICINE [address] [place] [address] Carmen Bertrand DO telephone call 10/21/2024 1:30 PM EST Clinical Support [facility] MEDIC[facility] [address] [place] [address] Jessica Conway RN Chronic bilateral low back pain without sciatica (Primary Dx) 10/21/2024 Travel 10/20/2024 2:30 PM EST Office Visit [facility] OPTOMETRY [address] [place] [address] Tova Saucedo, OD Presbyopia (Primary Dx); Cup to disc asymmetry, left 10/20/2024 Travel 10/11/[address] [facility] MEDICINE [address] [place] [address] Carmen Bertrand DO Hypertension, unspecified type 10/06/[address] [facility] MEDICINE [address] [place] [address] Carmen Bertrand DO Prior Authorization 10/06/2024 Refill [facility] MED [facility] PED[facility] [address] [place] [address] Ирина Mckeon MD Nonintractable headache, unspecified chronicity pattern, unspecified headache type 10/05/2024 Refill [facility] MED [facility] PED[facility] [address] [place] [address] Carmen Bertrand DO Chronic low back pain, unspecified back pain laterality, unspecified whether sciatica present 10/05/[address] [facility] MEDICINE [address] [place] [address] Carmen Bertrand DO Nurse Triage 10/05/[address] [facility] MEDICINE [address] [place] [address] Carmen Bertrand DO Mild persistent asthma without [...] 1:00 PM EDT Clinical Support [facility] MED[facility] [address] [place] [address] Jessica Conway, RN Health Maintenance Due Date [...] EDT Narrative 12/28/2024 9:42 PM EDT ? [facility] ?[address] ?[place] [address] ? CT Scan Report ? Signed ? Patient: Blaire Quiroz ?MR#: M ?? [id number] ? : 1975 ?Acct:[id number] ? Age/Sex: 49 / F ?ADM Date: 12/28/24 ? Loc: HO.ED ? Attending Dr: ? Ordering Physician: Anita Alegre NP ?? Date of Service: 12/28/24 ?? Procedure(s): CT head/brain wo IV con ?? Accession Number(s): [id number] ? cc: Carmen Bertrand DO; Sis,Anita ASPHALT RAKER ? Report Number: ?? [id number]: Total DLP = ??767.00 mGy-cm ? CLINICAL [...] ? DD/ 39 ? TD/TT: 12/28/242139 ? Scientific Investigator: ? Procedure Note Donclintonter, Image - 12/28/[address] [place] [address] [address] Scan Report Signed Patient: Christianne Quiroz#: M [id number] : 1975Acct:[id number] Age/Sex: 49 / FADM Date: 12/28/24 Loc: HO.ED Attending Dr: Ordering Physician: Anita Alegre NP Date of Service: 12/28/24 Procedure(s): CT head/brain wo IV con Accession Number(s): [id number] cc: Carmen Bertrand DO; Anita Alegre NP Report Number: [id number]: Total DLP = 767.00 mGy-cm CLINICAL HISTORY: [...] in OV> 12/28/242141 DD/ 39 TD/TT: 12/28/242139 Scientific Investigator: [facility] External Provider IMG CT PROCEDURES Final Result * (ABNORMAL) CBC auto differential (12/28/2024 8:25 PM EDT) Only the most recent of2 resultswithin the time period is included. White Blood Count 12.3(H) 4.8 - 10.8 X10*3/uL [facility] Red Blood Count 3.68(L) 4.20 - 5.50 X10*6/uL [facility] Hemoglobin 11.6(L) 12.0 - 16.0 g/dl [facility] Hematocrit 33.5(L) 37.0 - 47.0 % [facility] Mean Corpuscular Volume 91.0 80.0 - 98.0 fL [facility] Mean Corpuscular Hemoglobin 31.5 27.0 - 33.0 pg [facility] Mean Corpuscular HGB Conc 34.6 31.0 - 35.0 g/dl [facility] Red Cell Distribution Width 14.1 11.0 - 16.0 % [facility] Platelet Count 262 160 - 400 X10*3/uL [facility] Mean Platelet Volume 9.3(L) 9.4 - 12.3 fL [facility] Neutrophils Percent Auto 56.5 45 - 73 % [facility] Imm Gran Pct Auto 0.4 0.0 - 0.4 % [facility] Lymphocytes Percent Auto 32.1 20 - 40 % [facility] Monocytes Percent Auto 7.6 2 - 11 % [facility] Eosinophils Percent Auto 2.7 0 - 4 % [facility] Basophils Percent Auto 0.7 0 - 2 % [facility] NRBC Pct Auto 0.0 0.0 - 0.2 /100WBC [facility] Neutrophils Absolute Auto 7.0 2.0 - 8.3 x10*3/uL [facility] Imm Gran Abs Auto 0.05(H) 0.00 - 0.03 X10*3/uL [facility] Lymphocytes Absolute Auto 4.0 1.2 - 4.9 X10*3/uL [facility] Monocytes Absolute Auto 0.9 0.1 - 1.2 X10*3/uL [facility] Eosinophils Absolute Auto 0.3 0.0 - 0.4 X10*3/uL [facility] Basophils Absolute Auto 0.1 0.0 - 0.2 X10*3/uL [facility] NRBC Abs Auto 0.000 0.0 - 0.012 X10*3/uL [facility] 12/28/2024 8:25 PM EDT 12/28/2024 8:27 PM EDT us Generic External Data Provider LAB BLOOD ORDERAB LES Final Result [facility] [address] [place] [address] [phone] * (ABNORMAL) Comprehensive Metabolic Panel (12/28/2024 8:25 PM EDT) Only the most recent of2 resultswithin the time period is included. Sodium 141 135 - 145 mmol/L [facility] Potassium 4.0 3.3 - 5.1 mmol/L [facility] Chloride 108 96 - 108 mmol/L [facility] Carbon Dioxide 24 22 - 29 mmol/L [facility] Anion Gap 13 12 - 20 [facility] Urea Nitrogen (BUN) 19(H) 9 - 16 mg/dL [facility] Creatinine, Serum 0.81 0.5 - 1.4 mg/dL [facility] Creatinine Clr Calc Pharmacy 132.9 [facility] Comment:Provided height and weight: 172.72 cm,151.953 kg.eGFR (calculated from the MDRD study equation) and eCrCl(calculated from the Cockcroft-Gault equation) are based ondifferent parameters and may not yield comparable results.If eCrCl result is absurd, please check patient'sheight/weight. Estimated Glomerular Filt Rate >60 [facility] Comment:Chronic Kidney Disea se: Estimated GFR < 60 mL/min/1.06d8Wwmotg Kidney Disease: Estimated GFR < 15 mL/min/1.73m2 Glucose 106 60 - 115 mg/dL [facility] Calcium 9.1 8.4 - 10.2 mg/dL [facility] Bilirubin, Total 0.3 0.0 - 1.0 mg/dL [facility] Aspartate Amino Transferase 28 5 - 31 U/L [facility] Alanine Aminotransferase 16 0 - 31 U/L [facility] Total Protein 7.2 6.5 - 8.0 g/dL [facility] Albumin Level 3.5 3.5 - 5.0 g/dL [facility] Alkaline Phosphatase 80 39 - 117 U/L [facility] 12/28/2024 8:25 PM EDT 12/28/2024 8:27 PM EDT us Generic External Data Provider LAB BLOOD ORDERAB LES Final Result [facility] [address] [place] [address] [phone] * US RENAL BI (12/22/2024 6:57 PM EDT) Anatomical Region Laterality Modality Abdomen Ultrasound 12/22/2024 6:57 PM EDT Narrative 12/22/2024 6:58 PM EDT ? [facility] ?[address] ?[place] [address] ? Ultrasound Report ? Signed ? Patient: Maria Luisa TdeBlaire ?MR#: M ?? [id number] ? : 1975 ?Acct:[id number] ? Age/Sex: 49 / F ?ADM Date: 05/07/25 ? Loc: HO.US ? Attending Dr: Ricardo Lepe MD ? Ordering Physician: Ricardo Lepe MD ?? Date of Service: 12/22/24 ?? Procedure(s): US renal BI ?? Accession Number(s): [id number] ? cc: Ricardo Lepe MD; Carmen Bertrand [...] ? DD/ 56 ? TD/TT: 12/22/241856 ? Scientific Investigator: ? Procedure Note Dawna Lora - 12/22/2024 [place] [address] Ultrasound Report Signed Patient: Christianne Quiroz#: M [id number] : 1975Acct:[id number] Age/Sex: 49 / FADM Date: 12/22/24 Loc: HO.US Attending Dr: Ricardo Lepe MD Ordering Physician: Ricardo Lepe MD Date of Service: 12/22/24 Procedure(s): US renal BI Accession Number(s): [id number] cc: Ricardo Lepe MD; Carmen Bertrand DO [...] in OV> 12/22/241857 DD/ 56 TD/TT: 12/22/241856 Scientific Investigator: us [facility] External Provider IMG US PROCEDURES Final Result * Culture, Urine, Routine (12/13/2024 1:03 PM EDT) Urine Urine specimen obtained by clean catch procedure / Unknown 12/13/2024 1:03 PM EDT 12/13/2024 5:13 PM EDT Comment:UACC Narrative [facility] - 12/15/2024 11:24 AM EDT Urine Culture No growth. Specimen Source: Urine clean catch us Generic External Data Provider LAB MICROBIOLOGY - GENERAL ORDERABLES Final Result [facility] [address] [place] [address] [phone] * NM heart perfusion SPECT stress and rest (11/08/2024 9:19 AM EDT) Anatomical Region Laterality Modality Body Nuclear Medicine 11/08/2024 9:19 AM EDT Narrative 11/09/2024 12:33 PM EDT ? [facility] ?[address] ?[place] [address] ?Nuclear Medicine Report ? Signed ? Patient: Maria Luisa MarroquinriaBlaire ?MR#: M ?? [id number] ? : 1975 ?Acct:[id number] ? Age/Sex: 49 / F ?ADM Date: 03/23/25 ? Loc: HO.IMC ?475-1 ? Attending Dr: Gregg Chavez MD ? Ordering Physician: Mars Hutchinson MD ?? Date of Service: 11/08/24 ?? Procedure(s): NM andrew perf SPECT rest ?? str ?? Accession Number(s): [id number] ? cc: Carmen Bertrand DO; Mars Hutchinson [...] DD/ 0919 ? TD/TT: 11/09/24 0955 ? Scientific Investigator: ? Procedure Note Donotuseinterpreter, Image - 11/09/2024 [place] [address] Nuclear Medicine Report Signed Patient: Blaire Quiroz#: M [id number] : 1975Acct:[id number] Age/Sex: 49 / FADM Date: 11/07/24 Loc: [facility] 475-[address]: Gregg Chavez MD Ordering Physician: Mars Hutchinson MD Date of Service: 11/08/24 Procedure(s): NM andrew perf SPECT rest str Accession Number(s): [id number] cc: Carmen Bertrand DO; Mars Hutchinson MD [...] 11/09/24 1231 DD/ 0919 TD/TT: 11/09/24 0955 Scientific Investigator: [facility] External Provider IMG NM PROCEDURES Edited Result - Final * (ABNORMAL) High Sensitivity Troponin I (11/07/2024 7:34 PM EDT) Only the most recent of2 resultswithin the time period is included. TROPONIN I HIGH SENSITIVITY 85.7(HH) <3.5 - 17.0 ng/L [facility] Comment:Critical value for t est(s): HS-TNI Results called to rickie back by:ROSANNE Person calling:ALKAAB Date: 11/07/2024Time:20:02.The [employer] high sensitivity Troponin-I results should beused in conjunction with other diagnostic information suchas ECG, clinical observations and information, and patientsymptoms to aid in the diagnosis of [place]. 11/07/2024 7:34 PM EDT 11/07/2024 7:37 PM EDT Generic External Data Provider LAB BLOOD ORDERAB LES Final Result [facility] [address] [place] [phone] * (ABNORMAL) Partial Thromboplastin Time, Activated (APTT) (11/07/2024 7:34 PM EDT) Partial Thromboplastin Time 36.9(H) 26.0 - 36.8 SEC [facility] Comment:For information rega rding the monitoring of direct thrombininhibitors, please refer to Pharmacy. 11/07/2024 7:34 PM EDT 11/07/2024 7:37 PM EDT us Generic External Data Provider LAB BLOOD ORDERAB LES Final Result [facility] [address] [place] [address] [phone] * CT Abdomen Pelvis w/o Contrast (11/07/2024 7:25 PM EDT) Anatomical Region Laterality Modality Body, Pelvis, Abdomen Computed T omography 11/07/2024 7:25 PM EDT Narrative 11/07/2024 7:26 PM EDT ? [facility] ?[address] ?[place] [address] ? CT Scan Report ? Signed ? Patient: Blaire Quiroz ?MR#: M ?? [id number] ? : 1975 ?Acct:[id number] ? Age/Sex: 49 / F ?ADM Date: 11/07/24 ? Loc: HO.ED ? Attending Dr: ? Ordering Physician: Marco Lugo MD ?? Date of Service: 11/07/24 ?? Procedure(s): CT abdomen pelvis wo IV con ?? Accession Number(s): [id number] ? cc: Carmen Bertrand DO; Marco Lugo MD ? Report Number: ?? [id number]: Total DLP = 1392.00 mGy-cm ? CLINICAL HISTORY: left flank pain ? CT abdomen and pelvis without contrast ? Comparison: DX - XR HIP RT MIN 2V - 09/17/24 11:03 EST ?? US/SR - US ABDOMEN COMPLETE - 05/07/24 09:08 EDT ?? CT/RI/SR - CT ABDOMEN PELVIS WO IV CON [...] ? DD/ 24 ? TD/TT: 11/07/241924 ? Scientific Investigator: ? Procedure Note Geno, Image - 11/07/[address] [place] [address] [address] Scan Report Signed Patient: Christianne Quiroz#: M [id number] : 1975Acct:[id number] Age/Sex: 49 / FADM Date: 11/07/24 Loc: HO.ED Attending Dr: Ordering Physician: Marco Lugo MD Date of Service: 11/07/24 Procedure(s): CT abdomen pelvis wo IV con Accession Number(s): [id number] cc: Carmen Bertrand DO; Marco Lugo MD Report Number: [id number]: Total DLP = 1392.00 mGy-cm CLINICAL HISTORY: left flank pain CT abdomen and pelvis without contrast Comparison: DX - XR HIP RT MIN 2V - 09/17/24 11:03 EST US/SR - US ABDOMEN COMPLETE - 05/07/24 09:[address]/RI/SR - CT ABDOMEN PELVIS WO IV CON [...] in OV> 11/07/241924 DD/ 24 TD/TT: 11/07/241924 Scientific Investigator: [facility] External Provider IMG CT PROCEDURES Edited Result - Final * XR Chest 1 View (11/07/2024 6:43 PM EDT) Anatomical Region Laterality Modality Chest Radiographic Alejandrina ging 11/07/2024 6:43 PM EDT Narrative 11/07/2024 6:45 PM EDT ? [facility] ?[address] ?[place] [address] ?XRay Report ? Signed ? Patient: Maria Luisa Jean,Blaire ?MR#: M ?? [id number] ? : 1975 ?Acct:[id number] ? Age/Sex: 49 / F ?ADM Date: 03/23/25 ? Loc: HO.ED ? Attending Dr: ? Ordering Physician: Marco Lugo MD ?? Date of Service: 11/07/24 ?? Procedure(s): XR chest 1V ?? Accession Number(s): [id number] ? cc: Carmen Bertrand DO; Marco Lugo MD ? CLINICAL HISTORY: Chest pain ? 1 view chest x-ray ? Comparison: CR/RI/SR - XR CHEST 1V - 11/11/23 18:01 [...] ? DD/ 42 ? TD/TT: 11/07/241842 ? Scientific Investigator: ? Procedure Note Donvirginianery, Image - 11/07/2024 [place] [address] XRay Report Signed Patient: Blaire QuirozMR#: M [id number] : 1975Acct:[id number] Age/Sex: 49 / FADM Date: 11/07/24 Loc: HO.ED Attending Dr: Ordering Physician: Marco Lugo MD Date of Service: 11/07/24 Procedure(s): XR chest 1V Accession Number(s): [id number] cc: Carmne Bertrand DO; Marco Lugo MD CLINICAL HISTORY: Chest pain 1 view chest x-ray Comparison: CR/RI/SR - XR CHEST 1V - 11/11/23 18:01 EDT Findings: No consolidation or effusion. Heart size is normal. No acute fracture. IMPRESSION: 1. No acute findings. This document has been electronically signed by: Mahad Pearl MD on 11/07/2024 18:43:58 Dictated By: Mahad Pearl MD Signed By: <Electronically signed by Mahad Pearl MD in OV> 11/07/241843 DD/ 42 TD/TT: 11/07/241842 Scientific Investigator: [facility] External Provider IMG XR PROCEDURES Edited Result - Final * Magnesium (11/07/2024 4:29 PM EDT) Magnesium 1.7 1.6 - 2.6 mg/dL [facility] 11/07/2024 4:29 PM EDT 11/07/2024 4:33 PM EDT Generic External Data Provider LAB BLOOD ORDERAB LES Final Result Performing Organization Address [facility]/ZIP Co de Phone Number [facility] [address] [place] [phone] * Lipase (11/07/2024 4:29 PM EDT) Lipase 11 8 - 78 U/L [facility] 11/07/2024 4:29 PM EDT 11/07/2024 4:33 PM EDT Generic External Data Provider LAB BLOOD ORDERAB LES Final Result Performing Organization Address [facility] Co de Phone Number [facility] [address] [place] [phone] * POCT ANALISA-14 Urine Drug Screen (10/21/2024 2:02 PM EST) Urine Urine specimen obtained by clean catch procedure / Unknown 10/21/2024 2:02 PM EST Narrative Jessica Conway, RN - 10/21/2024 2:02 PM EST UTOX cup Lot#[id number] Exp. 04/06/26 Internal Pass Control UTOX Negative [...] Positive( A) Negative 09/07/2024 10:16 AM EST [facility] (CLIA #:[id number]) Comment: POSITIVE TEST RESULT. A positive Cologuard [...] (Ashleigh Zhou al, N Engl J Med 2014;370(14):4680-3811.) Cologuard may produce a false negative or false positive result (no colorectal cancer or precancerous polyp present at colonoscopy follow up). A negative Cologuard test result does not guarantee the absence of CRC or advanced adenoma (pre-cancer). The current Cologuard screening interval is every 3 years. ([place] [employer] and U.S. Multi-Society Task Force). Cologuard performance data in a 10,000 patient pivotal study using colonoscopy as the reference method can be accessed at the following location: www.Xcerion.com/results. Additional description of the Cologuard test process, warnings and precautions can be found at www.[email or web address].com. Stool specimen (specimen) 08/31/2024 10:33 AM EST 09/01/2024 11:06 AM EST Carmen Bertrand DO LAB MOLECULAR DIAGNOSTICS OR DERABLES Final Result [facility] (CLIA #:[id number]) [place] [address] [place] [address], * Hemoglobin A1c (08/24/2024 11:57 AM EST) Hemoglobin A1c 6.0 <6.0 % [facility] Comment:Hemoglobin A1C Refer ence Range Adults: 4.8 - 6.0 % Non diabetic: < 6.0 % Goal: < 7.0 %Additional Action Suggested: > 8.0 %Note: Hemoglobin A1c results are invalid for patients with abnormal amounts of HbF. Blood transfusions may impact the HbA1c concentration in the patient sample. Estimated Average Glucose 126 mg/dL [facility] Comment:eAG = Estimated ave rage glucose which is %A1C expressed asaverage glucose, using the formula of the J2P-UasnrbqFgtgmjf Glucose study (ADAG), Diabetes Care, Vol.31,#8,Mar. 2007 Blood Venous blood specimen / Unknown 08/24/2024 11:57 AM EST 08/24/2024 1:03 PM EST Carmen Elza DO LAB BLOOD ORDERABLES Final R esult Performing Organization Address City/[facility]/ZIP Co de Phone Number [facility] [address] [place] [phone] * (ABNORMAL) Lipid Panel, Standard (08/24/2024 11:57 AM EST) Triglycerides 82 <150 mg/dL [facility] Comment:Desirable Triglyceri de: less than 150 mg/dLBorderline High Triglyceride 150-199 mg/dLHigh Triglyceride: 200-499 mg/dLVery High Triglyceride: greater than or equal to 5OO mg/dL Cholesterol 136 <200 mg/dL [facility] Comment:Desirable Cholestero l: less than 200 mg/dLBorderline High Cholesterol: 200-239 mg/dLHigh Cholesterol: greater than 239 mg/dL LDL Cholesterol Calculated 81 <100 mg/dL [facility] Comment:Desirable LDL: less than 100 mg/dLNear Optimal/Above Optimal LDL: 110- 129 mg/dLBorderline High LDL: 130-159 mg/dLHigh LDL: 160-189 mg/dLVery High LDL: greater than or equal to 190 mg/dL HDL Cholesterol 39(L) >40 mg/dL [facility] Comment:Desirable HDL: great er than 40 mg/dL Note: This HDL assay may give artificially low results in patients with liver disease. Blood Venous blood specimen / Unknown 08/24/2024 11:57 AM EST 08/24/2024 1:03 PM EST Carmen Elza DO LAB BLOOD ORDERABLES Final R esult [facility] [address] [place] [phone] * BI US Breast Limited Bilateral (06/02/2024 2:00 PM EDT) Anatomical Region Laterality Modality Breast Bilateral Ultrasound 06/02/2024 2:00 PM EDT Narrative 06/03/2024 8:44 AM EDT ? [facility] ? [address] ?[place] [address] ? Ultrasound Report ? Signed ? Patient: Maria Luisa Jean,Blaire ?MR#: M ?? [id number] ? : 1975 ?Acct:[id number] ? Age/Sex: 49 / F ?ADM Date: 06/02/24 ? Loc: HO.MAMMO ? Attending Dr: Carmen Bertrand DO ? Ordering Physician: Carmen Bertrand DO ?? Date of Service: 06/02/24 ?? Procedure(s): US breast BI limited mamm only ?? Accession Number(s): [id number] ? cc: Carmen Bertrand DO ? EXAMINATION: [...] DD/ 1400 ? TD/TT: 06/02/24 1454 ? Scientific Investigator: ? Procedure Note Geno, Image - 06/03/2024 [facility] [address] [place] [address] [place] [address] Ultrasound Report Signed Patient: Blaire Quiroz#: M [id number] : 1975Acct:[id number] Age/Sex: 49 / FADM Date: 06/02/24 Loc: HO.MAMMO Attending Dr: Carmen Bertrand DO Ordering Physician: Carmen Bertrand DO Date of Service: 06/02/24 Procedure(s): US breast BI limited mamm only Accession Number(s): [id number] cc: Carmen Bertrand DO EXAMINATION: US DIAGNOSTIC [...] 06/03/24 0841 DD/ 1400 TD/TT: 06/02/24 1454 Scientific Investigator: us Carmen Bertrand DO IMG US PROCEDURES Final Resu lt * Hepatitis C Antibody with Reflex to HCV, RNA, Quantitative, Real-Time PCR (04/27/2024 2:02 PM EDT) Hepatitis C Antibody Nonreactive Nonreactive [facility] Comment:Antibodies to HCV no t detected; does not exclude early acuteHCV infection. Blood Venous blood specimen / Unknown 04/27/2024 2:02 PM EDT 04/27/2024 4:01 PM EDT us Carmen Bertrand DO LAB BLOOD ORDERABLES Final R esult [facility] [address] [place] [phone] * HIV Ab/Ag ([facility]) (02/21/2023 2:35 PM EDT) HIV AB/AG Nonreactive Nonreactive [facility] Comment:HIV-1 p24 Ag and/or HIV-1/HIV-2 Ab not detected.A test result that is nonreactive does not exclude thepossibility of exposure to or infection with HIV-1 and/orHIV-2. Nonreactive results in this assay for individualswith prior exposure to HIV-1 and/or HIV-2 may be due toantigen and antibody levels that are below the limit ofdetection of this assay.The [employer] HIV Ag/Ab Combo assay result andsupplemental assay results should be interpreted inconjunction with the patient's clinical presentation,history and other laboratory results. If the results areinconsistent with clinical evidence, additional testing issuggested to confirm the result. 02/21/2023 2:35 PM EDT 02/21/2023 2:37 PM EDT [facility] Hospital External Provider LAB BLO OD ORDERABLES Final Result [facility] [address] [place] [address] [phone] from Last 3 Months or Most Recently Relevant to Health Maintenance Insurance [facility] < [address] [place] [id number] Care Teams Facilities Maintenance Technician Relationship Specialty Start Date End Date Carmen Bertrand DO [address] [place] [address] PCP - General Family Medicine 08/18/18
--- OUTSIDE RECORDS SUMMARY | 2024-12-31 13:17 | XMS_ITS | Encounter Summary ---
Author Organization [employer] Address 75 [facility] 7t [place] [address] Care Team Providers Care Social Sciences Department Chair Name Role Phone Elza Carmen Primary Care Provider + [phone] Reason for Referral * Consultation (Routine) - Authorized Specialty Diagnoses / Procedures Referred By Jackie charlton Referred To Contact General Surgery Diagnoses Dermoid cyst of head Frances Austin MD [address] [place] [phone] Phone: tel: fax: Man Oviedo MD [address] [place] [address] 3rd [place] [address] Phone: tel: fax: Referral ID Status Reason Start Date Expiration Date Visits Requested Visits Authorized [id number] Authorized Specialty Services Required 12/29/2024 12/29/2025 1 1 Reason for Visit * Reason Comments Mass Encounter Details Date Type Department Care Team (Late st Contact Info) Description 12/29/2024 3:20 PM EDT Office Visit [facility] [address] [place] [address] Frances Austin MD [address] [place] [phone] Dermoid cyst of head (Primary Dx) Social [...] topically Once per day. 227 g 2 [id number]-[id number]-[id number] (Pylera) 140-125-125 MG capsule Take 3 capsules [...] tablet 2 ergocalciferol (Vitamin D2) 1.25 MG (39331 UT) capsule Take 1 capsule (1.25 mg) [...] Description 01/24/2025 1:00 PM EDT Clinical Support [facility] [address] [place] [address] Jessica Conway RN Scheduled Referrals Name Type [...] documented as of this encounter Care Teams Social Sciences Department Chair Relationship Specialty Start Date End Date Carmen Bertrand DO [address] [place] [address] PCP - General Family Medicine 08/18/18 documented as of this encounter
--- OUTSIDE RECORDS SUMMARY | 2024-12-31 13:17 | XMS_ITS | Encounter Summary ---
Author Organization [employer] Address 75 [facility] 7t [place] [address] Care Team Providers Care Small Order Cutter Name Role Phone Carmen Bertrand Primary Care Provider + [phone] Reason for Visit * Reason Comments Med Refill Encounter Details Date Type Department Care Team ([facility] st Contact Info) Description 12/28/2024 Refill [facility] [address] [place] [address] Irina Talley MD [address] [place], [place] [phone] Mild persistent asthma without complication Social History [...] EDT Clinical Support [facility] [address] [place] [phone] Jessica Conway RN documented as of this encounter Visit Diagnoses Diagnosis Mild persistent asthma without complication documented in this encounter Additional Health Concerns Assessment Noted Time PHQ-9 Depression Total Score: 22 024 11:00 AM EDT documented as of this encounter Care Teams Small Order Cutter Relationship Specialty Start Date End Date Carmen Bertrand DO [address] [place] [address] PCP - General Family Medicine 08/18/18 documented as of this encounter
--- OUTSIDE RECORDS SUMMARY | 2024-12-31 13:17 | XMS_ITS | Encounter Summary ---
Author Organization [facility] Address [address] [place] [address] 7 [place] [address] Care Team Providers Care Risk Lead Name Role Phone Carmen Bertrand DO Primary Care Provider [phone] Reason for Visit * Reason Comments Med Refill Encounter Details Date Type Department Care Team (Late st Contact Info) Description 07/29/2022 Refill [facility] [address] [place] [address] Carmen Bertrand DO [address] [place] [phone] Social History Tobacco Use Types Packs/Day Years [...] 01/24/2025 1:00 PM EDT Clinical Support [facility] [address] [place] [address] Jessica Conway RN documented as of this encounter Visit Diagnoses Not on filedocumented in this encounter Care Teams Risk Lead Relationship Specialty Start Date End Date Carmen Bertrand DO [address] [place] [address] PCP - General Family Medicine 08/18/18 documented as of this encounter
--- OUTSIDE RECORDS SUMMARY | 2024-12-31 13:17 | XMS_ITS | Encounter Summary ---
Author Organization [employer] Address 75 [facility] 7t [place] [address] Care Team Providers Care Outdoor Emergency Care Technician Name Role Phone Carmen Bertrand Primary Care Provider + [phone] Reason for Visit * Reason Comments Med Refill Encounter Details Date Type Department Care Team ([facility] st Contact Info) Description 01/13/2024 Refill [facility] [address] [place] [address] Rox Sutton MD [address] [place] [address] Pain Social History Tobacco Use Types Packs/Day [...] 1:00 PM EDT Clinical Support [facility] [address] [place] [phone] Jessica Conway RN documented as of this encounter Visit Diagnoses Diagnosis Pain Generalized pain documented in this encounter Additional Health Concerns Assessment Noted Time PHQ-9 Depression Total Score: 21 023 11:26 AM EST documented as of this encounter Care Teams Outdoor Emergency Care Technician Relationship Specialty Start Date End Date Carmen Bertrand DO [address] [place] [address] PCP - General Family Medicine 08/18/18 documented as of this encounter
--- OUTSIDE RECORDS SUMMARY | 2024-12-31 13:17 | XMS_ITS | Encounter Summary ---
Author Organization [employer] Address 75 [facility] 7t [place] [address] Care Team Providers Care Chief Cook Name Role Phone Carmen Bertrand DO Primary Care Provider + [phone] Reason for Visit * Reason Onset Date Comments Hospital Follow-up 11/12/2024 Encounter Details Date Type Department Care Team ([facility] [address] Contact Info) Description 11/12/2024 Telephone [facility] [address] [place] [address] Carmen Bertrand DO [address] [place] [address] Hospital Follow-up Social History Tobacco Use Types [...] from pt requesting a HDF appt. Hospital: [facility] Date of admission: 11/07/2024 Discharge date: 11/12/2024 Diagnosed: heart attack *Send message to [place] Clinical Care Coordinators documented in this encounter Plan of Treatment Upcoming Encounters Date Type Department Care Team (Late st Contact Info) Description 01/24/2025 1:00 PM EDT Clinical Support [facility] [address] [place] [address] Jessica Conway, RULA documented as of this encounter Visit Diagnoses Not on filedocumented in this encounter Additional Health Concerns Assessment Noted Time PHQ-9 Depression Total Score: 22 024 11:00 AM EDT documented as of this encounter Care Teams Chief Cook Relationship Specialty Start Date End Date Carmen Bertrand DO [address] [place] [address] PCP - General Family Medicine 08/18/18 documented as of this encounter
--- OUTSIDE RECORDS SUMMARY | 2024-12-31 13:17 | XMS_ITS | Encounter Summary ---
Author Organization [employer] Address 75 [facility] 7t [place] [address] Care Team Providers Care Golf Club Facer Name Role Phone Carmen Bertrand DO Primary Care Provider + [phone] Reason for Visit * Reason Comments Med Refill Encounter Details Date Type Department Care Team ([facility] Contact Info) Description 02/03/2023 Refill [facility] [address] [place] [address] Leticia Ramirez MD [address] [place] [address] Nonintractable headache, unspecified chronicity pattern, unspecified headache [...] 01/24/2025 1:00 PM EDT Clinical Support [facility] [address] [place] [address] Jessica Conway RN documented as of this encounter Visit Diagnoses Diagnosis Nonintractable headache, unspecified chronicity pattern, unspecified headache type documented in this encounter Additional Health Concerns Assessment Noted Time PHQ-9 Depression Total Score: 16 023 12:22 PM EST documented as of this encounter Care Teams Golf Club Facer Relationship Specialty Start Date End Date Carmen Bertrand DO [address] [place] [address] PCP - General Family Medicine 08/18/18 documented as of this encounter
--- OUTSIDE RECORDS SUMMARY | 2024-12-31 13:17 | XMS_ITS | Encounter Summary ---
Author Organization [employer] Address 75 [facility] 7t [place] [address] Care Team Providers Care Unix Manager Name Role Phone Carmen Bertrand DO Primary Care Provider [phone] Encounter Details Date Type Department Care Team (Late st Contact Info) Description 09/09/2022 Orders Only [facility] [address] [place] [address] Carmen Perez LPN Social History Tobacco Use [...] Description 01/24/2025 1:00 PM EDT Clinical Support [facility] [address] [place] [address] Jessica Conway, RULA documented as of this encounter Visit Diagnoses Not on filedocumented in this encounter Care Teams Unix Manager Relationship Specialty Start Date End Date Carmen Bertrand DO [address] [place] [address] PCP - General Family Medicine 08/18/18 documented as of this encounter
--- OUTSIDE RECORDS SUMMARY | 2024-12-31 13:17 | XMS_ITS | Encounter Summary ---
Author Organization [employer] Address 75 [facility] 7t [place] [address] Care Team Providers Care It Applications Manager Name Role Phone Carmen Bertrand DO Primary Care Provider + [phone] Reason for Visit * Reason Comments Med Refill Encounter Details Date Type Department Care Team ([facility] st Contact Info) Description 07/22/2023 Refill [facility]S [address] [place], [place] [phone] Carmen Bertrand DO [address] [facility] [place] [address] Hyperlipidemia, unspecified hyperlipidemia type Social History Tobacco [...] 1:00 PM EDT Clinical Support [facility]INE [address] [place] [address] Jessica Conway RN documented as of this encounter Visit Diagnoses Diagnosis Hyperlipidemia, unspecified hyperlipidemia type documented in this encounter Additional Health Concerns Assessment Noted Time PHQ-9 Depression Total Score: 21 023 11:26 AM EST documented as of this encounter Care Teams It Applications Manager Relationship Specialty Start Date End Date Carmen Bertrand DO [address] [place] [address] PCP - General Family Medicine 08/18/18 documented as of this encounter
--- OUTSIDE RECORDS SUMMARY | 2024-12-31 13:17 | XMS_ITS | Encounter Summary ---
Author Organization [employer] Address 75 [facility] 7t [place] [address] Care Team Providers Care Parts Control Clerk Name Role Phone Carmen Bertrand DO Primary Care Provider + [phone] Reason for Visit * Reason Comments Med Refill Encounter Details Date Type Department Care Team ([facility] st Contact Info) Description 02/24/2024 Refill [facility] [address] [place] [address] Carmen Bertrand DO [address] [place] [address] Social History Tobacco Use Types Packs/Day Years [...] 1:00 PM EDT Clinical Support [facility] [address] [place] [address] Jessica Conway RN documented as of this encounter Visit Diagnoses Not on filedocumented in this encounter Additional Health Concerns Assessment Noted Time PHQ-9 Depression Total Score: 21 023 11:26 AM EST documented as of this encounter Care Teams Parts Control Clerk Relationship Specialty Start Date End Date Carmen Bertrand DO [address] [place] [address] PCP - General Family Medicine 08/18/18 documented as of this encounter
--- OUTSIDE RECORDS SUMMARY | 2024-12-31 13:17 | XMS_ITS | Encounter Summary ---
Author Organization [employer] Address 75 [facility] 7t [place] [address] Care Team Providers Care Clam Treader Name Role Phone Carmen Bertrand DO Primary Care Provider [phone] Encounter Details Date Type Department Care Team (Late st Contact Info) Description 08/13/2022 Orders Only [facility] [address] [place] [address] Carmen Perez LPN Social History Tobacco Use [...] Description 01/24/2025 1:00 PM EDT Clinical Support [facility] [address] [place] [address] Jessica Conway, RULA documented as of this encounter Visit Diagnoses Not on filedocumented in this encounter Care Teams Clam Treader Relationship Specialty Start Date End Date Carmen Bertrand DO [address] [place] [address] PCP - General Family Medicine 08/18/18 documented as of this encounter
--- OUTSIDE RECORDS SUMMARY | 2024-12-31 13:17 | XMS_ITS | Encounter Summary ---
Author Organization [employer] Address 75 [facility] 7t [place] [address] Care Team Providers Care Sanitary Napkin Machine Tender Name Role Phone Carmen Bertrand DO Primary Care Provider + [phone] Reason for Visit * Reason Comments Med Refill Encounter Details Date Type Department Care Team ([facility] Contact Info) Description 10/18/2022 Refill [facility] [address] [place] [address] Carmen Bertrand DO [address] [place] [address] Social History Tobacco Use Types Packs/Day Years [...] Description 01/24/2025 1:00 PM EDT Clinical Support [facility] [address] [place] [address] Jessica Conway RN documented as of this encounter Visit Diagnoses Not on filedocumented in this encounter Additional Health Concerns Assessment Noted Time PHQ-9 Depression Total Score: 16 023 12:22 PM EST documented as of this encounter Care Teams Sanitary Napkin Machine Tender Relationship Specialty Start Date End Date Carmen Bertrand DO [address] [place] [address] PCP - General Family Medicine 08/18/18 documented as of this encounter
--- OUTSIDE RECORDS SUMMARY | 2024-12-31 13:17 | XMS_ITS | Encounter Summary ---
Author Organization [employer] Address 75 [facility] 7t [place] [address] Care Team Providers Care Desktop Technician Name Role Phone Carmen Bertrand DO Primary Care Provider + [phone] Reason for Visit * Reason Comments Med Refill Encounter Details Date Type Department Care Team ([facility] st Contact Info) Description 11/20/2022 Refill [facility] [address] [place] [address] Carmen Bertrand DO [address] [place] [address] Morbid obesity with body mass index (BMI) [...] Description 01/24/2025 1:00 PM EDT Clinical Support [facility] [address] [place] [address] Jessica Conway, RN documented as of this encounter Visit Diagnoses Diagnosis Morbid obesity with body mass index (BMI) of 50.0 to 59.9 in adult (CMS/HCC) documented in this encounter Additional Health Concerns Assessment Noted Time PHQ-9 Depression Total Score: 16 023 12:22 PM EST documented as of this encounter Care Teams Desktop Technician Relationship Specialty Start Date End Date Carmen Bertrand DO [address] [place] [address] PCP - General Family Medicine 08/18/18 documented as of this encounter
--- OUTSIDE RECORDS SUMMARY | 2024-12-31 13:17 | XMS_ITS | Encounter Summary ---
Author Organization [facility] Address [address] [place] [address] 7t [place] [address] Care Team Providers Care Web Content Director Name Role Phone Carmen Bertrand DO Primary Care Provider [phone] Encounter Details Date Type Department Care Team (Late st Contact Info) Description 09/09/2022 Orders Only [facility] [address] [place] [address] Azul Albrecht LPN Social History Tobacco Use [...] EDT Clinical Support [facility] [address] [place] [address] Jessica Conway, RN documented as of this encounter Visit Diagnoses Not on filedocumented in this encounter Care Teams Web Content Director Relationship Specialty Start Date End Date Carmen Bertrand DO [address] [place] [address] PCP - General Family Medicine 08/18/18 documented as of this encounter
--- OUTSIDE RECORDS SUMMARY | 2024-12-31 13:17 | XMS_ITS | Encounter Summary ---
Author Organization [employer] Address 75 [facility] 7t [place] [address] Care Team Providers Care Low Pressure Boiler Tender Name Role Phone Carmen Bertrand Primary Care Provider + [phone] Reason for Visit * Reason Comments Med Refill Encounter Details Date Type Department Care Team ([facility] st Contact Info) Description 03/08/2024 Refill [facility] [address] [place] [address] Rox Sutton MD [address] [place] [address] Pain Social History Tobacco Use Types Packs/Day [...] Clinical Support [facility] [address] [place] [address] Jessica Conway RN documented as of this encounter Visit Diagnoses Diagnosis Pain Generalized pain documented in this encounter Additional Health Concerns Assessment Noted Time PHQ-9 Depression Total Score: 21 023 11:26 AM EST documented as of this encounter Care Teams Low Pressure Boiler Tender Relationship Specialty Start Date End Date Carmen Bertrand DO [address] [place] [address] PCP - General Family Medicine 08/18/18 documented as of this encounter
--- OUTSIDE RECORDS SUMMARY | 2024-12-31 13:17 | XMS_ITS | Encounter Summary ---
Author Organization [employer] Address [address] [facility] [address] [place] [address] Care Team Providers Care Telemetry Monitor Name Role Phone Carmen Bertrand Primary Care Provider + [phone] Encounter Details Date Type Department Care Team ([facility] Contact Info) Description 12/28/2024 Orders Only GENERIC [...] 01/24/2025 1:00 PM EDT Clinical Support [facility] [address] [facility] [place] [address] Jessica Conway RN documented as of this [...] EDT Narrative 12/28/2024 9:42 PM EDT ? [facility] ?[address] ?[place] [address] ? CT Scan Report ? Signed ? Patient: Blaire Quiroz ?MR#: M ?? [id number] ? : 1975 ?Acct:[id number] ? Age/Sex: 49 / F ?ADM Date: 05/13/25 ? Loc: HO.ED ? Attending Dr: ? Ordering Physician: Anita Alegre NP ?? Date of Service: 12/28/24 ?? Procedure(s): CT head/brain wo IV con ?? Accession Number(s): [id number] ? cc: Carmen Bertrand DO; Anita Alegre NP ? Report Number: ?? [id number]: Total DLP = ??767.00 mGy-cm ? CLINICAL [...] ? DD/ 39 ? TD/TT: 12/28/242139 ? Asset Protection Officer: ? Procedure Note Dawna Lora - 12/28/[address] [place] [address] [address] Scan Report Signed Patient: Christianne Quiroz#: M [id number] : 1975Acct:[id number] Age/Sex: 49 / FADM Date: 12/28/24 Loc: HO.ED Attending Dr: Ordering Physician: Anita Alegre NP Date of Service: 12/28/24 Procedure(s): CT head/brain wo IV con Accession Number(s): [id number] cc: Carmen Bertrand DO; Anita Alegre NP Report Number: [id number]: Total DLP = 767.00 mGy-cm CLINICAL HISTORY: [...] in OV> 12/28/242141 DD/ 39 TD/TT: 12/28/242139 Asset Protection Officer: [facility] External Provider IMG CT PROCEDURES Final Result * (ABNORMAL) Comprehensive Metabolic Panel (12/28/2024 8:25 PM EDT) Sodium 141 135 - 145 mmol/L [facility] Potassium 4.0 3.3 - 5.1 mmol/L [facility] Chloride 108 96 - 108 mmol/L [facility] Carbon Dioxide 24 22 - 29 mmol/L [facility] Anion Gap 13 12 - 20 [facility] Urea Nitrogen (BUN) 19(H) 9 - 16 mg/dL [facility] Creatinine, Serum 0.81 0.5 - 1.4 mg/dL [facility] Creatinine Clr Calc Pharmacy 132.9 [facility] Comment:Provided height and weight: 172.72 cm,151.953 kg.eGFR (calculated from the MDRD study equation) and eCrCl(calculated from the Cockcroft-Gault equation) are based ondifferent parameters and may not yield comparable results.If eCrCl result is absurd, please check patient'sheight/weight. Estimated Glomerular Filt Rate >60 [facility] Comment:Chronic Kidney Disea se: Estimated GFR < 60 mL/min/1.83k9Yfilxe Kidney Disease: Estimated GFR < 15 mL/min/1.73m2 Glucose 106 60 - 115 mg/dL [facility] Calcium 9.1 8.4 - 10.2 mg/dL [facility] Bilirubin, Total 0.3 0.0 - 1.0 mg/dL [facility] Aspartate Amino Transferase 28 5 - 31 U/L [facility] Alanine Aminotransferase 16 0 - 31 U/L [facility] Total Protein 7.2 6.5 - 8.0 g/dL [facility] Albumin Level 3.5 3.5 - 5.0 g/dL [facility] Alkaline Phosphatase 80 39 - 117 U/L [facility] 12/28/2024 8:25 PM EDT 12/28/2024 8:27 PM EDT us Generic External Data Provider LAB BLOOD ORDERAB LES Final Result [facility] [address] [place] [address] [phone] * (ABNORMAL) CBC auto differential (12/28/2024 8:25 PM EDT) White Blood Count 12.3(H) 4.8 - 10.8 X10*3/uL [facility] Red Blood Count 3.68(L) 4.20 - 5.50 X10*6/uL [facility] Hemoglobin 11.6(L) 12.0 - 16.0 g/dl [facility] Hematocrit 33.5(L) 37.0 - 47.0 % [facility] Mean Corpuscular Volume 91.0 80.0 - 98.0 fL [facility] Mean Corpuscular Hemoglobin 31.5 27.0 - 33.0 pg [facility] Mean Corpuscular HGB Conc 34.6 31.0 - 35.0 g/dl [facility] Red Cell Distribution Width 14.1 11.0 - 16.0 % [facility] Platelet Count 262 160 - 400 X10*3/uL [facility] Mean Platelet Volume 9.3(L) 9.4 - 12.3 fL [facility] Neutrophils Percent Auto 56.5 45 - 73 % [facility] Imm Gran Pct Auto 0.4 0.0 - 0.4 % [facility] Lymphocytes Percent Auto 32.1 20 - 40 % [facility] Monocytes Percent Auto 7.6 2 - 11 % [facility] Eosinophils Percent Auto 2.7 0 - 4 % [facility] Basophils Percent Auto 0.7 0 - 2 % [facility] NRBC Pct Auto 0.0 0.0 - 0.2 /100WBC [facility] Neutrophils Absolute Auto 7.0 2.0 - 8.3 x10*3/uL [facility] Imm Gran Abs Auto 0.05(H) 0.00 - 0.03 X10*3/uL [facility] Lymphocytes Absolute Auto 4.0 1.2 - 4.9 X10*3/uL [facility] Monocytes Absolute Auto 0.9 0.1 - 1.2 X10*3/uL [facility] Eosinophils Absolute Auto 0.3 0.0 - 0.4 X10*3/uL [facility] Basophils Absolute Auto 0.1 0.0 - 0.2 X10*3/uL [facility] NRBC Abs Auto 0.000 0.0 - 0.012 X10*3/uL [facility] 12/28/2024 8:25 PM EDT 12/28/2024 8:27 PM EDT us Generic External Data Provider LAB BLOOD ORDERAB LES Final Result Performing Organization Address City/State/[facility] Co de Phone Number [facility] [address] [place] [address] [phone] documented in this encounter Visit Diagnoses Not on filedocumented in this encounter Additional Health Concerns Assessment Noted Time PHQ-9 Depression Total Score: 22 024 11:00 AM EDT documented as of this encounter Care Teams Telemetry Monitor Relationship Specialty Start Date End Date Carmen Bertrand DO [address] [place] [address] PCP - General Family Medicine 08/18/18 documented as of this encounter
--- OUTSIDE RECORDS SUMMARY | 2024-12-31 13:18 | XMS_ITS | Encounter Summary ---
Author Organization [employer] Address [address] [facility] [address] [place] [address] Care Team Providers Care Camp Attendant Name Role Phone Carmen Bertrand DO Primary Care Provider + [phone] Reason for Visit * Reason Onset Date Comments telephone call 12/29/2024 Encounter Details Date Type Department Care Team ([facility] Contact Info) Description 12/29/2024 Telephone [facility] [address] [place] [address] Carmen Bertrand DO [address] [place] [address] telephone call Social History Tobacco Use Types [...] 01/24/2025 1:00 PM EDT Clinical Support [facility] [address] [place] [phone] Jessica Conway, RULA documented as of this encounter Visit Diagnoses Not on filedocumented in this encounter Additional Health Concerns Assessment Noted Time PHQ-9 Depression Total Score: 22 024 11:00 AM EDT documented as of this encounter Care Teams Camp Attendant Relationship Specialty Start Date End Date Carmen Bertrand DO [address] [place] [address] PCP - General Family Medicine 08/18/18 documented as of this encounter
--- NOTE | 2024-12-31 13:20 | MHC.OFFVIS ---
Vital Signs 12/31/24 13:35 Height 5 ft 8 in Weight 335 lb BMI 50.9 Intake Visit Reasons: Inj-B/L knee injection-last 04/29/25 Intake Note: Blaire is a 49 year old female who presents today for a repeat injections for both of her knees, last injections 04/29/25. Patient reports her last injections gave her relief and she would like to repeat. She states her hip is also hurting her but she would like to know what the provider recommends. Allergies penicillin G [PENICILLIN G] Allergy (Severe, Verified 12/31/24 13:35) DIFFICULTY BREATHING semaglutide [From Ozempic] Adverse Reaction (Severe, Verified 12/31/24 13:35) Stomach Upset HPI HPI Inj-B/L knee injection-last 04/29/25: Details: Ms. Galss is a 49-year-old female who presents to the office today for follow up of bilateral knee pain due to osteoarthritis. At her last appointment on for her knees on 04/29/2023 patient received bilateral knee cortisone injections. She states that this did help her and she would like to repeat them today. [facility] Medical History Morbid obesity Hidradenitis suppurativa CAD (coronary artery disease) Subsequent non-ST elevation myocardial infarction (NSTEMI) within 4 weeks of initial infarction Non-ST elevation NC (NSTEMI) YAMILETH on CPAP Hyperlipidemia PTSD (post-traumatic stress disorder) Fatty liver Smoker Depression Obesity Leukocytosis Frequent UTI Asthma Mass of throat Chronic pain Kidney stone Migraine HTN (hypertension) Surgical History H/O excision of mass (06/28/24) Hx of cystoscopy Stented coronary artery History of heart artery stent History of lumpectomy of left breast (10/22/21) History of lithotripsy History of endometrial ablation Hx of colonoscopy History of breast lump/mass excision History of tonsillectomy H/O: hysterectomy Family History Father Hypertension Mother Hypertension Osteoporosis Hx of bilateral cataract extraction Paternal Grandmother Diabetes Sister Asthma Maternal Uncle Throat cancer Maternal Aunt Ovarian cancer Breast cancer Social History Household Members: Family Housing: Apartment Are you a primary career development associate to a significant other at home: No Do you presently have visiting nurse or other home services: 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) Alcohol intake: never Comment: pt refusing alarms Patient Tobacco Use Status: Current everyday Tobacco user Tobacco use type: Cigarette Cigarette Packs Per Day: 0.5 Cigarettes Per Day: 10 Years Smoked: 30 e-Cigarette/Vaping Use: Never Used Second Hand Smoke Exposure: No Advance Directives Date on File: 10/28/22 service: No Current occupational status: unemployed and retired Review of Systems Const All systems reviewed & are unremarkable except as noted in HPI and below Physical Exam Vital Signs: BMI result Body Mass Index 50.9 Extrem Other: Bilateral knees tenderness to palpation medial joint line. Able to range motion 0-90 degrees. NVI Office Procedures AMB Joint Injection/Aspiration Joint Injection/Aspiration Primary Site: right knee Secondary Site: left knee Prep: site was prepped using aseptic technique, ethochloride spray was applied and injection warnings given Injected: 40 mg of, DepoMedrol, with 8 mL of (2% plain lido ) and in the joint Approach Used: anterolateral Procedure: The patient tolerated the procedure well, but had some pain with the injection and there was some relief with the local anesthesia Coding 01490 - Bilateral Large Joint Procedure code (CPT) selection complete Assessment & Plan Assessment & Plan (1) Osteoarthritis of knees, bilateral: Code(s): M17.0 - Bilateral primary osteoarthritis of knee Category: Medical (2) Diabetes mellitus: Code(s): E11.9 - Type 2 diabetes mellitus without complications Category: Medical (3) Morbid obesity with BMI of 50.0-59.9, adult: Code(s): E66.01 - Morbid (severe) obesity due to excess calories; Z68.43 - Body mass index [BMI] 50.0-59.9, adult Category: Medical Plan Ms. Glass is a 49-year-old female who presents to the office today for follow up of bilateral knee pain due to osteoarthritis. At her last appointment on for her knees on 04/29/2023 patient received bilateral knee cortisone injections. She states that this did help her and she would like to repeat them today. The patient was offered a cortisone injection in bilateral knees with 40 mg of DepoMedrol. The patient was explained the risks, benefits, and alternatives to receiving this injection. After receiving consent for the injection, the patient had the procedure done while in the office today. The patient tolerated the procedure well with no complications. Due to the patient?s history of diabetes, they were instructed to monitor their blood glucose level. The patient was informed that they could see a rise in their numbers and if the numbers became too high, they were instructed to call their PCP. The patient was also informed that they could have facial flushing as a side effect of the injection, but this will pass. Follow-up will be p.r.n., or sooner if needed. X-rays of bilateral knees which were obtained while in the office today and were reviewed by me, Trupti Lyle PA-C, revealed osteoarthritis. Orders: Orders XR Knee Thaddeus 3V 12/31/24 M25.561 - Pain in right knee, M25.562 - Pain in left knee Coding Level of Care Code Est Pt Level 4 (61713) Diagnoses Osteoarthritis of knees, bilateral M17.0 Diabetes mellitus E11.9 Morbid obesity with BMI of 50.0-59.9, adult E66.01; Z68.43 CPT Codes Coding - 14130 - Bilateral Large Joint: 50027 - Bilateral Large Joint ([id number])
[2024-12-31 13:35] VITALS: BMI 50.9
== END 2024-12-31 13:55 | disposition home or self-care (01) ==
PROVIDERS: PCP Family Medicine; Visit Provider Physician Assistant
DX: M17.0 Bilateral primary osteoarthritis of knee (principal); E11.9 Type 2 diabetes mellitus without complications; E66.01 Morbid (severe) obesity due to excess calories; Z68.43 Body mass index [BMI] 50.0-59.9, adult
CPT/HCPCS: 20610; 99214

== ENCOUNTER → 2024-12-31 13:16 | Outpatient (BNV) | payer OTHER, SELFPAY ==
[2024-12-31 11:15] VITALS: BP 128/72; BP 140/60; BP 148/88; BMI 63.7
== END ==
PROVIDERS: Visit Provider Radiology Diagnostic Radiology
DX: M17.0 Bilateral primary osteoarthritis of knee (principal)
CPT/HCPCS: 73562

== ENCOUNTER 2025-01-13 07:01 | Day surgery (SDC) | payer OTHER, SELFPAY ==
[2022-10-22 13:00] VITALS: BP 128/72; BP 148/88; BMI 63.7
--- OUTSIDE RECORDS SUMMARY | 2024-12-28 15:37 | XMS_ITS | Data Portability ---
Author Organization [employer] [facility] [place] [facility] Address [address] [place] [phone] Care Team Providers Care Painter Maintenance Name Role Phone [facility] OTHER [phone] [facility] OTHER Assessment Encounter Date Assessment [...] recorded. Lab rapid flu (A+B) 2024 025 [facility], [address] [place] [address], [phone] 5 15:45:24 rapid SARS CoV 2 Ag, QL IA, respiratory specimen [address], [phone] 5 15:45:08 Referral None recorded. Procedures None recorded. Surgeries None recorded. Imaging None recorded. Medication Orders albuterol sulfate 2.5 mg/3 mL (0.083 %) solution for nebulizatio n 2024 025 [facility]/Pharmacy #[id number], [address] [place], [address], 18:27:03 Patient TargetsNo targets recorded. Patient InstructionsNo [...] Name and Address Organization Details Recorded Time 34824 aspirin medicatio n Not available Not available Not available 10/05/2024 1191 RxNorm Not Available [facility] - production 5 13:36:43 42964 penicilli n V Not available Not available Not available Not available 10/05/2024 7984 RxNorm Not Available [facility] - production 5 13:36:43 69767 penicilli n G procaine medicatio n Not available Not available Not available 10/05/2024 7983 RxNorm Not Available [facility] - production 5 13:36:43 23878 penicilli n G benzathin e medicatio n [...] % 172.72 cm 18 /min 98.4 [degF] 325786. 272 g 131 mm[Hg] 78 mm[Hg] Not [...] SNOMED-CT Code Diagnosis ICD10 Code Diagnosis Note [id number] Reese Jarvis MD Main - [facility] [address] [place] [phone] 10/05/2024 14:55:01 10/07/2024 08:39:41 Wheezing [id number] R06.2 Health Concerns Section Related Observation LastModified by Organization Detai ls LastModified Time None Recorded Concern Status LastModified by Organization Details LastModified Time None Recorded Advance Directives Directive None Recorded Payers Insurance Date Sequence Insurance Name Policy Number Policy Parra Covered Member ID Parra Member ID Guarantor Name 10/05/[address] [facility] [place] - DOS ON OR AFTER 2022 - DUAL ELIGIBLE - SNF OPTIONS AND ONE CARE (MEDICARE REPLACEMENT/ADV ANTAGE - HMO) Blaire Santosminnie Jean [id number] Blaire Maria Luisa Jean Notes Date Note Type Note Provider Name and Address Organization Details Recorded Time 10/05/2024 text/html HPI: Call returned to Blaire Jean to triage below. Reports having Headache, Fever, Body Aches, Sore Throat, Runny Nose x 3 days. Per pt seen at [facility] ER on Friday. Per pt seen for CP. Had testing done while in ER. Pt had negative homekit for COVID-19 last night. Reports having SOB with exertion. No wheezing. Pt speaking in clear full sentences. Pt advised of disposition, unable to come into [facility]. Agrees to [facility] for evaluation. Confirmed demographics and allergies. .................. .................. .................. .................. .................. .................. .................. ............... CRC Nurse Triage Notes (Radha Martinez - RN): Chief Complaints: Cough, Fever/chills, Headache, Sore throat, Breathing problems PMH: Hypertension, Asthma, Coronary Artery Disease PMH Reviewed at 10/05/2024 - 13:36 Allergies Reviewed at 10/05/2024 - 13:36 Comments: CRC RN did not require any additional information to process this visit. Cask Maker Organization Information for Ankita Castillo Business Legal Name: [employer]? Address: [address] [place] [address], B[place]mer Converter Blower: Marino Dow MD CLIA No.: [id number] Cask Maker POC Test Results from Ankita Castillo Rapid COVID antigen (14:56:21) COVID: - Rapid influenza antigen (14:56:24) Flu: - Rapid strep test (14:56:25) Strep: - .................. .................. .................. .................. .................. .................. .................. ............... Cask [employer] Note From Ankita Castillo: Sent to a call for a pt complaining of URI symptoms. SC8 arrives on scene, pt is alert and oriented, airway is patent. Pt complains of URI symptoms since Friday. Pt states she had chest tightness Friday-Friday, but was evaluated at [facility] ED on Friday. Pt states she had [...] administered; Lung sounds: clear bilaterally; SpO2:98% RA; [facility] consulted and sends script to pt's pharmacy for Albuterol neb solutions. Red flags discussed. Pt has no further questions. .................. .................. .................. .................. .................. .................. .................. ............... [facility] Consulted: Reese Jarvis .................. .................. .................. .................. .................. .................. .................. ............... Disposition: Fulfilled Reese Jarvis MD [address] [facility],[address], [place], [phone], BHAVIN - BERNADINE CADENA 10/06/2024 15:39:31 OBGyn Episode No OBEpisode recorded.
[2025-01-11 16:30] VITALS: BMI 50.9
--- NOTE | 2025-01-12 12:13 | HO.ANESPROP2 ---
Documented by User: Shanika Youngblood NP 01/12/25 12:18 HPI - Anesthesia Eval Consult details Narrative: 49yo F for Upper Endoscopy and Colonoscopy BMI [address] [facility] [place] Cardiology for: morbid obesity, hypertension, hyperlipidemia, smoking, sleep apnea with CPAP use, NSTEMI, KAMARI to the proximal LAD 2022, recent secondary NSTEMI in the setting of renal calculi, followed by abnormal nuclear stress test. She initially had no symptoms then did have chest discomfort and went to the [facility] [place] emergency room. She underwent cardiac catheterization showing nonobstructive coronary disease, patent LAD stent. On plavix Anesthesia Pre-Procedure Meds Is the patient on any of the following meds?: GLP1/DPP4 PMFSH Active Problems Active Problems: All Active Problems Morbid obesity with BMI of 50.0-59.9, adult (Acute) Left flank pain (Acute) Hydronephrosis, left (Acute) Bilateral kidney stones (Acute) Myocardial injury (Acute) Elevated troponin (Acute) Degenerative joint disease of both hips (Acute) Sacroiliitis (Acute) Lumbar radiculopathy (Acute) Multiple renal calculi (Acute) Hyperoxaluria (Acute) Hypercalciuria (Acute) Preop cardiovascular exam (Acute) Sebaceous cyst of ear (Acute) Masses of both breasts (Acute) Ureteral stent present (Acute) Abnormal nuclear stress test (Acute) Chronic anticoagulation (Acute) Nausea and vomiting (Acute) Dysphagia (Acute) Gastroparesis (Acute) Chest discomfort (Acute) S/P cardiac catheterization (Acute) Non-STEMI (non-ST elevated myocardial infarction) (Acute) Diabetes mellitus (Acute) Osteoarthritis of left knee (Acute) Osteoarthritis of right knee (Acute) Encounter for screening colonoscopy (Acute) Hydronephrosis (Acute) Right kidney stone (Acute) Calculus of proximal right ureter (Acute) Ureterolithiasis (Acute) Left breast mass (Acute) Morbid obesity (Acute) Osteoarthritis of knees, bilateral (Acute) Knee pain (Acute) Leukocytosis (leucocytosis) (Acute) Chronic UTI (urinary tract infection) (Acute) Nephrolithiasis (Acute) Morbid obesity (Acute) Hidradenitis suppurativa (Acute) CAD (coronary artery disease) (Acute) Hyperlipidemia (Acute) HTN (hypertension) (Acute) Kidney stone (Acute) Past Medical History Medical History Morbid obesity Hidradenitis suppurativa CAD (coronary artery disease) Subsequent non-ST elevation myocardial infarction (NSTEMI) within 4 weeks of initial infarction Non-ST elevation [place] (NSTEMI) YAMILETH on CPAP Hyperlipidemia PTSD (post-traumatic stress disorder) Fatty liver Smoker Depression Obesity Leukocytosis Frequent UTI Asthma Mass of throat Chronic pain Kidney stone Migraine HTN (hypertension) Family History Family History Father Hypertension Mother Hypertension Osteoporosis Hx of bilateral cataract extraction Paternal Grandmother Diabetes Sister Asthma Maternal Uncle Throat cancer Maternal Aunt Ovarian cancer Breast cancer Family history of problems with anesthesia: No Surgical History Surgical History H/O excision of mass (06/28/24) Hx of cystoscopy Stented coronary artery History of heart artery stent History of lumpectomy of left breast (10/22/21) History of lithotripsy History of endometrial ablation Hx of colonoscopy History of breast lump/mass excision History of tonsillectomy H/O: hysterectomy History of Problems with Anesthesia: No Social History Social History Household Members: Family Housing: Apartment Are you a primary health and social care teacher to a significant other at home: No Do you presently have visiting nurse or other home services: 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) Alcohol intake: never Comment: pt refusing alarms Patient Tobacco Use Status: Current everyday Tobacco user Tobacco use type: Cigarette Cigarette Packs Per Day: 0.5 Cigarettes Per Day: 10 Years Smoked: 30 e-Cigarette/Vaping Use: Never Used Second Hand Smoke Exposure: No Advance Directives: No Advance Directives Information Provided: Yes Advance Directives Date on File: 10/28/22 service: No Current occupational status: unemployed and retired Meds Allergies Allergy/AdvReac Type Severity Reaction Status Date / Time penicillin G [PENICILLIN G] Allergy Severe DIFFICULTY Verified 01/13/25 07:24 BREATHING semaglutide [From Ozempic] AdvReac Severe Stomach Verified 01/13/25 07:24 Upset Home Medications ?Medication ?Instructions ?Recorded ?Confirmed ?Last Taken ?Type albuterol sulfate 90 mcg/actuation 2 puff PO Q4-6H PRN Wheezing 04/16/21 05/29/25 11/11/24 History aerosol inhaler (Ventolin HFA) fluticasone propionate 50 2 spray intranasal DAILY 12/01/20 01/13/25 11/06/24 History mcg/actuation nasal spray,suspension blood pressure test kit-large #1 ea 12/19/20 01/13/25 Unknown History topiramate 50 mg tablet 50 mg PO BID 12/19/20 01/13/25 11/06/24 History cholecalciferol (vitamin D3) 50 50 mcg PO DAILY 03/13/22 01/13/25 11/06/24 History mcg (2,000 unit) capsule metformin 500 mg tablet,extended 500 mg PO DAILY@1700 07/01/22 01/13/25 11/06/24 History release 24 hr metoprolol succinate 50 mg 50 mg PO DAILY 07/01/22 01/13/25 11/06/24 History tablet,extended release 24 hr tramadol 50 mg tablet 50 mg PO Q8H PRN severe pain 10/24/22 01/13/25 Unknown History metronidazole 0.75 % topical gel 1 appl topical DAILY PRN Rash 10/25/22 01/13/25 Unknown History albuterol sulfate 2.5 mg/3 mL 2.5 mg inhalation Q4-6H PRN 11/15/22 01/13/25 Unknown History (0.083 %) solution for nebulization Wheezing fluticasone propionate 110 2 puff inhalation BID 11/13/23 01/13/25 11/06/24 History mcg/actuation HFA aerosol inhaler famotidine 40 mg tablet 40 mg PO BEDTIME PRN heartburn 02/13/24 01/13/25 Unknown History benzoyl peroxide 10 % topical 1 appl topical DAILY 11/08/24 01/13/25 11/06/24 History cleanser econazole nitrate 1 % topical cream 1 appl topical BID 11/08/24 01/13/25 11/06/24 History emtricitabine 200 mg-tenofovir 1 tab PO DAILY 11/08/24 01/13/25 11/06/24 History disoproxil fumarate 300 mg tablet hydroquinone 4 % topical cream 1 appl topical BID 11/08/24 01/13/25 11/06/24 History tirzepatide (weight loss) 2.5 2.5 mg subcut TH 11/08/24 01/13/25 01/04/25 History mg/0.5 mL subcutaneous pen injector (Zepbound) nitroglycerin 0.4 mg sublingual 0.4 mg sublingual Q5M PRN Chest 12/13/24 01/13/25 Unknown History tablet Pain clopidogrel 75 mg tablet 75 mg PO DAILY 01/12/25 01/13/25 01/04/25 History Exam Height,Weight and Vital Signs: Height 5 ft 8 in Weight 151.953 kg Pertinent Lab Results Pertinent Lab Results: Laboratory Tests 12/28/24 20:25 WBC 12.3 H Hgb 11.6 L Hct 33.5 L Plt Count 262 Sodium 141 Potassium 4.0 Chloride 108 Carbon Dioxide 24 BUN 19 H Creatinine 0.81 Narrative Narrative: EKG 11/2024 Details: Today, read by me, Normal sinus rhythm, rate 73, Qtc 438ms Cardiac Cath 11/26/24 Conclusions Diagnostic Summary 49-year-old female who is here for chest discomfort at rest. She received nitroglycerin with improvement in symptoms. Previous LAD PCI. Recent abnormal nuclear perfusion imaging Hemodynamics: Normal systemic pressures. Normal LVEDP. There is no significant gradient across the aortic valve pullback. Coronary anatomy: Right dominant circulation. No significant disease in the right coronary artery and circumflex. Proximal LAD stent is patent. Due to tortuosity the proximal segment of the LAD appeared hazy and we were unsure whether there is plaque in that area or not. Diagnostic Recommendations Intravascular ultrasound assessment of LAD. Interventional Summary No area of plaque proximal to LAD stent. Ostial stenosis but vessel diameter was 3 to 4 mm in the ostium. Interventional Recommendations Continue aspirin 81 mg indefinitely. Aggressive secondary risk factor modification according to ATP III guidelines. No significant coronary disease to explain patient's symptoms. Consider workup for alternative causes for symptoms. Assessment and Plan Assessment Anesthesia Assessment: Chart Reviewed Final Anesthetic Review Family History of Problems with Anesthesia: No History of Problems with Anesthesia: No Documented by User: Edmund Quiles MD 01/13/25 07:41 [facility] Past Medical History Medical History Morbid obesity Hidradenitis suppurativa CAD (coronary artery disease) Subsequent non-ST elevation myocardial infarction (NSTEMI) within 4 weeks of initial infarction Non-ST elevation [place] (NSTEMI) YAMILETH on CPAP Hyperlipidemia PTSD (post-traumatic stress disorder) Fatty liver Smoker Depression Obesity Leukocytosis Frequent UTI Asthma Mass of throat Chronic pain Kidney stone Migraine HTN (hypertension) Family History Family History Father Hypertension Mother Hypertension Osteoporosis Hx of bilateral cataract extraction Paternal Grandmother Diabetes Sister Asthma Maternal Uncle Throat cancer Maternal Aunt Ovarian cancer Breast cancer Surgical History Surgical History H/O excision of mass (06/28/24) Hx of cystoscopy Stented coronary artery History of heart artery stent History of lumpectomy of left breast (10/22/21) History of lithotripsy History of endometrial ablation Hx of colonoscopy History of breast lump/mass excision History of tonsillectomy H/O: hysterectomy Social History Social History Household Members: Family Housing: Apartment Are you a primary health and social care teacher to a significant other at home: No Do you presently have visiting nurse or other home services: 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) Alcohol intake: never Comment: pt refusing alarms Patient Tobacco Use Status: Current everyday Tobacco user Tobacco use type: Cigarette Cigarette Packs Per Day: 0.5 Cigarettes Per Day: 10 Years Smoked: 30 e-Cigarette/Vaping Use: Never Used Second Hand Smoke Exposure: No Advance Directives: No Advance Directives Information Provided: Yes Advance Directives Date on File: 10/28/22 service: No Current occupational status: unemployed and retired Meds Allergies Allergy/AdvReac Type Severity Reaction Status Date / Time penicillin G [PENICILLIN G] Allergy Severe DIFFICULTY Verified 01/13/25 07:24 BREATHING semaglutide [From Ozempic] AdvReac Severe Stomach Verified 01/13/25 07:24 Upset Home Medications ?Medication ?Instructions ?Recorded ?Confirmed ?Last Taken ?Type albuterol sulfate 90 mcg/actuation 2 puff PO Q4-6H PRN Wheezing 12/01/20 01/13/25 06/28/24 History aerosol inhaler (Ventolin HFA) fluticasone propionate 50 2 spray intranasal DAILY 12/01/20 01/13/25 11/06/24 History mcg/actuation nasal spray,suspension blood pressure test kit-large #1 ea 12/19/20 01/13/25 Unknown History topiramate 50 mg tablet 50 mg PO BID 12/19/20 01/13/25 11/06/24 History cholecalciferol (vitamin D3) 50 50 mcg PO DAILY 03/13/22 01/13/25 11/06/24 History mcg (2,000 unit) capsule metformin 500 mg tablet,extended 500 mg PO DAILY@1700 07/01/22 01/13/25 11/06/24 History release 24 hr metoprolol succinate 50 mg 50 mg PO DAILY 07/01/22 01/13/25 11/06/24 History tablet,extended release 24 hr tramadol 50 mg tablet 50 mg PO Q8H PRN severe pain 10/24/22 01/13/25 Unknown History metronidazole 0.75 % topical gel 1 appl topical DAILY PRN Rash 10/25/22 01/13/25 Unknown History albuterol sulfate 2.5 mg/3 mL 2.5 mg inhalation Q4-6H PRN 11/15/22 01/13/25 Unknown History (0.083 %) solution for nebulization Wheezing fluticasone propionate 110 2 puff inhalation BID 11/13/23 01/13/25 11/06/24 History mcg/actuation HFA aerosol inhaler famotidine 40 mg tablet 40 mg PO BEDTIME PRN heartburn 02/13/24 01/13/25 Unknown History benzoyl peroxide 10 % topical 1 appl topical DAILY 11/08/24 01/13/25 11/06/24 History cleanser econazole nitrate 1 % topical cream 1 appl topical BID 11/08/24 01/13/25 11/06/24 History emtricitabine 200 mg-tenofovir 1 tab PO DAILY 11/08/24 01/13/25 11/06/24 History disoproxil fumarate 300 mg tablet hydroquinone 4 % topical cream 1 appl topical BID 11/08/24 01/13/25 11/06/24 History tirzepatide (weight loss) 2.5 2.5 mg subcut TH 11/08/24 01/13/25 01/04/25 History mg/0.5 mL subcutaneous pen injector (Zepbound) nitroglycerin 0.4 mg sublingual 0.4 mg sublingual Q5M PRN Chest 12/13/24 01/13/25 Unknown History tablet Pain clopidogrel 75 mg tablet 75 mg PO DAILY 01/12/25 01/13/25 01/04/25 History Exam Airway Mallampati Class: II TM Dist: >3cm Neck ROM: Full Denture: Upper and Lower Heart: see above. ok. Lungs: ok. Assessment and Plan Assessment Anesthesia Assessment: Anesthesia Plan Discussed Final Anesthetic Review NPO: Yes ASA Class: III Final Preanesthetic Review: No Changes in Pt Med Stat, Meds/Allgs Chart Reviewed, Consent Obtained/Reviewed and Anes Risks/Benef Reviewed Patient Risk: High Procedure Risk: Intermediate Anesthetic Plan Anesthetic Plan: Agree w/ Assess. and Plan and TIVA Disposition: Standard PACU
[2025-01-13 07:06] VITALS: BMI 52.3
[2025-01-13] MEDS: Lactated Ringers 1,000 ML 100 ML IVCONT (07:11)
[2025-01-13 07:21] VITALS: BP 124/68; PULSE 71; RESP 18; TEMP 36.7; O2SAT 96
[2025-01-13 07:23] LABS: Glucose, Whole Blood 96 mg/dL (60-115)
--- NOTE | 2025-01-13 08:20 | P.HPSUR_ITS ---
Pre-Procedural Eval Section A - 24 Hr Update-Section A only Date of Service: 01/13/25 Section B - Complete if H&P > 30 days Chief Complaint: Nausea with vomiting, unspecified Details of Present Illness: pos cologuard Relevant Family History (Specify if Yes): No Relevant Social History: Tobacco Use Present Medications: see Short Stay Collaborative assessment Medical History: Significant History (Morbid obesity Hidradenitis suppurativa CAD (coronary artery disease) Subsequent non-ST elevation myocardial infarction (NSTEMI) within 4 weeks of initial infarction Non-ST elevation [place] (NSTEMI) YAMILETH on CPAP Hyperlipidemia PTSD (post-traumatic stress disorder) Fatty liver Smoker Depression Obesity Le) History of Previous Operations: Relevant previous surgery/procedure and date(s) (H/O excision of mass (06/28/24) Hx of cystoscopy Stented coronary artery History of heart artery stent History of lumpectomy of left breast (10/22/21) History of lithotripsy History of endometrial ablation Hx of colonoscopy History of breast lump/mass excision History of tonsillectomy H/O: hysterect) Allergies: Allergies Allergy/AdvReac Type Severity Reaction Status Date / Time penicillin G [PENICILLIN G] Allergy Severe DIFFICULTY Verified 01/13/25 07:24 BREATHING semaglutide [From Ozempic] AdvReac Severe Stomach Verified 01/13/25 07:24 Upset Review of Systems Sugical H&P ROS: Negative: Constitution, Cardiovascular, Respiratory, Jez rological, Psychiatric, Hem-Onc, Allergic/Immunologic, Gastrointestinal, Genitourinary, Musculoskeletal, Integumentary, Endocrine and Eyes/Ears/Nose/Throat Exam Surgical H&P Exam: Normal: HEENT, Normal: Heart, Normal: Lungs, Normal: Extremities, Normal: Abdomen, Normal: Skin and Normal: Neurological Plan Diagnosis/Plan: Unchanged I have reviewed the history and physical and performed a pertinent physical examination on my patient. No changes have occurred unless specified. Time Spent With Patient Time: Total time managing care of this patient today ____ minutes.
--- NOTE | 2025-01-13 09:04 | HO.OPN-COLON ---
Colonoscopy Operative Note Operative Note Date of Service: 01/13/25 Narrative: Operative Information Procedure Description: EGD, Colonoscopy Indication: abdominal pain, dysphagia, cologuard pos Anesthesia: MAC FLEXIBLE TRANSORAL UPPER GASTROINTESTINAL ENDOSCOPY AND COLONOSCOPY PROCEDURE NOTE UPPER ENDOSCOPY Consent: Indications for the procedure and potential complications of bleeding, perforation, reaction to medications and missed diagnosis were discussed with the patient and informed consent was obtained. Instrument: Olympus GIF H 190 J mid size upper endoscope Monitoring: Vital signs and clinical assessment, continuous EKG monitoring, Pulse oximetry, Carbon Dioxide monitoring and blood pressure monitoring were done throughout the procedure. Procedure: The patient was placed in the left lateral decubitis position and pre-procedure medications were administered and a bite block was placed. The endoscope was inserted into the mouth and advanced under direct vision to the third part of duodenum. A careful inspection was made as the upper endoscope was withdrawn including a retroflexed examination of the proximal stomach; Findings and interventions are described below. Findings: Larynx:normal Esophagus: GE junction at 38 cm, diaphragm hiatus at 38 cm, esophagitis noted at GEJ, bx taken also from distal and prox esophagus, balloon dilation to 20 mm at LES and 19 mm at UES, no tears seen Stomach: patchy erythema. Biopsies were obtained. Grade 2 flap valve on retroflexed examination of the cardia. Duodenum: patchy erythema Intervention: Biopsies as noted above, balloon dilation COLONOSCOPY Instrument: Olympus variable stiffness pediatric scope 190L Colonoscopy Monitoring: Vital signs and clinical assessment, continuous EKG monitoring, Pulse oximetry, Carbon Dioxide monitoring and blood pressure monitoring were done throughout the procedure. Colon withdrawal time was 10 minutes. Procedure: The patient was placed in the left lateral decubitis position and pre-procedure medications were administered. After a digital rectal examination of the ano-rectum, the video colonoscope was inserted into the rectum and advanced through the colon to the cecum/TI. The colonoscope was slowly withdrawn in a retrograde panoramic fashion and the colon mucosa was carefully examined including a retroflexed view of the rectum. Findings and interventions are described below. Procedure Difficulty:moderate Findings: Terminal Ileum- mild ileitis, bx taken Cecum:normal bx taken Ascending Colon: x 1 sessile polyp 10 mm removed with cold snare, x1 sessile polyps 3-4 mm removed with cold forceps Transverse Colon - x 1 sessile polyp 6-8 mm removed with cold snare Descending Colon: x 1 sessile polyp 6-8 mm removed with cold snare Sigmoid Colon: normal Rectum: Retroflexion with small internal hemorrhoids, grade I Anorectum - normal Colon preparation: [place] Bowel Preparation Scale Right colon; 2 Transverse colon: 2 Left colon; 1-2 (0 = Unprepared colon segment with mucosa not seen due to solid stool that cannot be cleared. 1 = Portion of mucosa of the colon segment seen, but other areas of the colon segment not well seen due to staining, residual stool and/or opaque liquid. 2 = Minor amount of residual staining, small fragments of stool and/or opaque liquid, but mucosa of colon segment seen well. 3 = Entire mucosa of colon segment seen well with no residual staining, small fragments of stool or opaque liquid) Impression and Post Procedure Diagnosis: Endoscopy Findings: esophagitis duodenitis gastritis Colonoscopy Findings: diverticulosis colon polyps internal hemorrhoids Plan: Await Pathology results Repeat Colonoscopy in 1-2 years due to polyps and fair prep on left or earlier if clinically indicated High fiber diet leaflet avoid straining at stool, epsom salts and sitz bath, anusol supps or cream GERD precautions if h pylori pos then treat Above findings were reviewed with the patient and relevant handouts were provided if indicated.
[2025-01-13 09:11] VITALS: BP 116/65; PULSE 51; RESP 20; TEMP 36.2; O2SAT 96
[2025-01-13 09:26] VITALS: BP 133/82; PULSE 55; RESP 16; TEMP 36.1; O2SAT 97
== END 2025-01-13 10:01 | disposition home or self-care (01) ==
PROVIDERS: PCP Family Medicine; Visit Provider Internal Medicine Gastroenterology
PROC: (CPT 45385; principal; 2025-01-13 08:30)
DX: R19.5 Other fecal abnormalities (principal); D12.2 Benign neoplasm of ascending colon; D12.3 Benign neoplasm of transverse colon; K57.30 Diverticulosis of large intestine without perforation or abscess without bleeding; K64.0 First degree hemorrhoids; R11.2 Nausea with vomiting, unspecified; K22.70 Barrett's esophagus without dysplasia; K20.80 Other esophagitis without bleeding; R13.10 Dysphagia, unspecified; K29.80 Duodenitis without bleeding; K29.70 Gastritis, unspecified, without bleeding; K31.84 Gastroparesis; E11.9 Type 2 diabetes mellitus without complications; I10 Essential (primary) hypertension; E78.5 Hyperlipidemia, unspecified; F17.210 Nicotine dependence, cigarettes, uncomplicated; E66.01 Morbid (severe) obesity due to excess calories; Z68.43 Body mass index [BMI] 50.0-59.9, adult; G47.33 Obstructive sleep apnea (adult) (pediatric); Z99.89 Dependence on other enabling machines and devices; Z79.84 Long term (current) use of oral hypoglycemic drugs; Z79.899 Other long term (current) drug therapy; Z79.02 Long term (current) use of antithrombotics/antiplatelets; Z79.82 Long term (current) use of aspirin; Z79.01 Long term (current) use of anticoagulants
CPT/HCPCS: 45385; 45380; 43249; 43239; 82947; 88305; 88313; 88342; C1726; J2003; J2704; J3010

== ENCOUNTER → 2025-01-13 07:01 | Outpatient (BNV) | payer OTHER, SELFPAY ==
[2024-12-31 11:15] VITALS: BP 128/72; BP 140/60; BP 148/88; BMI 63.7
== END ==
PROVIDERS: PCP Family Medicine; Visit Provider Internal Medicine Gastroenterology
DX: R11.2 Nausea with vomiting, unspecified (principal); K20.90 Esophagitis, unspecified without bleeding; K29.70 Gastritis, unspecified, without bleeding; K29.80 Duodenitis without bleeding; R19.5 Other fecal abnormalities; D12.2 Benign neoplasm of ascending colon; D12.3 Benign neoplasm of transverse colon; D12.4 Benign neoplasm of descending colon; K52.9 Noninfective gastroenteritis and colitis, unspecified; K64.0 First degree hemorrhoids
CPT/HCPCS: 43239; 43249; 45385

== ENCOUNTER 2025-01-27 09:30 | Outpatient (AMB) | payer OTHER, SELFPAY ==
[2022-10-22 13:00] VITALS: BP 128/72; BP 148/88; BMI 63.7
--- NOTE | 2025-01-27 09:33 | A.OFFVIS_ITS ---
Vital Signs 01/27/25 09:38 Height 5 ft 8 in Weight 337 lb BMI 51.2 BP 123/64 Blood Pressure Location Lt brachial Position Sitting Pulse 64 Pulse Oximetry (%) 99 Oxygen Delivery Method Room Air Intake Visit Reasons: S/P double; Dr. Pope Intake Note: Patient complex follow up for EGD/Colonoscopy results done on 01/[address] Pope/Anita fiona was 11/13/2023. Patient denies any GI issues. Inbound Telemarketer Required: Yes Inbound Telemarketer Name: [facility] Interpeter Accompanied by: Self / Same As Patient Allergies penicillin G [PENICILLIN G] Allergy (Severe, Verified 01/27/25 09:32) DIFFICULTY BREATHING semaglutide [From Ozempic] Adverse Reaction (Severe, Verified 01/27/25 09:32) Stomach Upset HPI HPI S/P double; Dr. Pope: Details: Patient is a Frisian speaking 49-year-old female with PMH of obesity, diabetes, OA, HTN and HLD. Blaire presents for follow up after endoscopy, she underwent EGD and colonoscopy on 01/13/25. 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 A colonoscopy showed four polyps, two of which were pre-cancerous but all were completely removed. The patient reports a history of acid reflux symptoms characterized by burning and regurgitation. Th bismark symptoms are well-managed with famotidine when symptomatic. States she has not taken any preventative daily medication, such as PPI. She denies routine breakfast intake and typically eats once daily, including salad, chicken (sometimes fried), rice, lemon, and spicy foods for weight loss. The patient drinks water and occasionally Sprite. The patient experienced a bleeding event associated with stool prior to the colonoscopy, attributed to stones. Patient denies: fever/chills, n/v, appetite changes, pyrosis, regurgitation, dysphasia, unintentional wt loss, ab pain or melena/hematochezia. Social History: - Diet: Eats once a day, including salad, chicken, rice, lemon, and spicy foods. - Tobacco: Smokes half a pack every one and a half days. - Occupation: Not working, supported by Social Security. -family hx below -denies personal hx of [facility] Medical History (Updated 01/27/25 @ 15:44 by Rosy Carrillo CNP) Tubular adenoma of colon Delgado esophagus Morbid obesity Hidradenitis suppurativa CAD (coronary artery disease) Subsequent non-ST elevation myocardial infarction (NSTEMI) within 4 weeks of i nitial infarction Non-ST elevation W[place] (NSTEMI) YAMILETH on CPAP Hyperlipidemia PTSD (post-traumatic stress disorder) Fatty liver Smoker Depression Obesity Leukocytosis Frequent UTI Asthma Mass of throat Chronic pain Kidney stone Migraine HTN (hypertension) Surgical History History of esophagogastroduodenoscopy (EGD) H/O excision of mass (06/28/24) Hx of cystoscopy Stented coronary artery History of heart artery stent History of lumpectomy of left breast (10/22/21) History of lithotripsy History of endometrial ablation Hx of colonoscopy History of breast lump/mass excision History of tonsillectomy H/O: hysterectomy Family History Father Hypertension Mother Hypertension Osteoporosis Hx of bilateral cataract extraction Paternal Grandmother Diabetes Sister Asthma Maternal Uncle Throat cancer Maternal Aunt Ovarian cancer Breast cancer Social History Household Members: Family Housing: Apartment Are you a primary long term care social worker to a significant other at home: No Do you presently have visiting nurse or other home services: No Alcohol intake: never Comment: pt refusing alarms Patient Tobacco Use Status: Current everyday Tobacco user Tobacco use type: Cigarette Cigarette Packs Per Day: 0.5 Cigarettes Per Day: 10 Years Smoked: 30 e-Cigarette/Vaping Use: Never Used Second Hand Smoke Exposure: No Advance Directives Date on File: 10/28/22 service: No Current occupational status: unemployed and retired Review of Systems Const Reports as per HPI ENT Reports as per HPI Card Reports as per HPI Resp Reports as per HPI GI Reports as per HPI Reports as per HPI Physical Exam Vital Signs: Last Vital Signs Pulse 64 01/27/25 09:38 BP 123/64 01/27/25 09:38 Pulse Ox 99 01/27/25 09:38 Oxygen Delivery Method Room Air 01/27/25 09:38 BMI result Body Mass Index 51.2 Const General: no acute distress and well developed Nutritional Appearance: obese Orientation/consciousness: patient oriented x3 HEENT Head: Yes normal to inspection, Yes normocephalic and Yes atraumatic Face and sinus: Yes normal facial exam Eyes General: appearance normal, both eyes and all related structures Neck Neck: Yes normal visual inspection Resp Effort & Inspection: normal respiratory effort, able to speak in complete sentences, no tracheal deviation and symmetric chest movement Auscultation: clear to auscultation bilaterally Cardio Jugular venous distension: no JVD Rate: regular rate Rhythm: regular rhythm Heart sounds: S1 normal heart sound present, S2 normal heart sound present, no gallops and no murmurs GI Inspection: Yes normal to inspection, No distended and Yes obesity Palpation (GI): Soft to palpation, not firm, nontender and No hepatosplenomegaly present Auscultation: Hypoactive bowel sounds present Neuro General: patient oriented x3 Gait exam (Neuro): Normal gait present Psych Appearance: grossly normal Mental Status: mental status grossly normal Speech and movement: Normal speech and movement present Affect: normal affect Attitude: cooperative Thought process: Normal thought process present Thought content: Normal thought content present Insight: Good insight present (Psych) Judgement: Good judgement present (Psych) Results Reviewed Results Reviewed: Operative Note Date of Service: 01/13/25 Narrative: Operative Information Procedure Description: EGD, Colonoscopy Indication: abdominal pain, dysphagia, cologuard pos Anesthesia: MAC FLEXIBLE TRANSORAL UPPER GASTROINTESTINAL ENDOSCOPY AND COLONOSCOPY PROCEDURE NOTE UPPER ENDOSCOPY Consent: Indications for the procedure and potential complications of bleeding, perforation, reaction to medications and missed diagnosis were discussed with the patient and informed consent was obtained. Instrument: Olympus GIF H 190 J mid size upper endoscope Monitoring: Vital signs and clinical assessment, continuous EKG monitoring, Pulse oximetry, Carbon Dioxide monitoring and blood pressure monitoring were done throughout the procedure. Procedure: The patient was placed in the left lateral decubitis position and pre-procedure medications were administered and a bite block was placed. The endoscope was inserted into the mouth and advanced under direct vision to the third part of duodenum. A careful inspection was made as the upper endoscope was withdrawn including a retroflexed examination of the proximal stomach; Findings and interventions are described below. Findings: Larynx:normal Esophagus: GE junction at 38 cm, diaphragm hiatus at 38 cm, esophagitis noted at GEJ, bx taken also from distal and prox esophagus, balloon dilation to 20 mm at LES and 19 mm at UES, no tears seen Stomach: patchy erythema. Biopsies were obtained. Grade 2 flap valve on retroflexed examination of the cardia. Duodenum: patchy erythema Intervention: Biopsies as noted above, balloon dilation COLONOSCOPY Instrument: Olympus variable stiffness pediatric scope 190L Colonoscopy Monitoring: Vital signs and clinical assessment, continuous EKG monitoring, Pulse oximetry, Carbon Dioxide monitoring and blood pressure monitoring were done throughout the procedure. Colon withdrawal time was 10 minutes. Procedure: The patient was placed in the left lateral decubitis position and pre-procedure medications were administered. After a digital rectal examination of the ano-rectum, the video colonoscope was inserted into the rectum and advanced through the colon to the cecum/TI. The colonoscope was slowly withdrawn in a retrograde panoramic fashion and the colon mucosa was carefully examined including a retroflexed view of the rectum. Findings and interventions are described below. Procedure Difficulty:moderate Findings: Terminal Ileum- mild ileitis, bx taken Cecum:normal bx taken Ascending Colon: x 1 sessile polyp 10 mm removed with cold snare, x1 sessile polyps 3-4 mm removed with cold forceps Transverse Colon - x 1 sessile polyp 6-8 mm removed with cold snare Descending Colon: x 1 sessile polyp 6-8 mm removed with cold snare Sigmoid Colon: normal Rectum: Retroflexion with small internal hemorrhoids, grade I Anorectum - normal Colon preparation: Butler Bowel Preparation Scale Right colon; 2 Transverse colon: 2 Left colon; 1-2 Impression and Post Procedure Diagnosis: Endoscopy Findings: esophagitis duodenitis gastritis Colonoscopy Findings: diverticulosis colon polyps internal hemorrhoids Plan: Await Pathology results Repeat Colonoscopy in 1-2 years due to polyps and fair prep on left or earlier if clinically indicated High fiber diet leaflet avoid straining at stool, epsom salts and sitz bath, anusol supps or cream GERD precautions if h pylori pos then treat PATHOLOGY Collected: 01/13/25 Location: SKYE Received: 01/13/25 Diagnosis A. Duodenum, biopsy: Chronic inactive duodenitis. B. Stomach, biopsy: Antral-type and oxyntic mucosa with moderate chronic inactive inflammation; no Helicobacter organisms seen. C. 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 - No dysplasia seen. - Squamous epithelium within normal limits. D. Esophagus, distal, biopsy: Active esophagitis (maximum eosinophil count 1 per high powered field). E. Esophagus, proximal, biopsy: Squamous epithelium within normal limits; no inflammation seen. F. Colon, transverse, polypectomy: Tubular adenoma; negative for high-grade dysplasia or carcinoma. G. Colon, ascending, polypectomies: Fragments of tubular adenomata; negative for high-grade dysplasia or carcinoma. H. Terminal ileum, biopsy: Terminal ileal mucosa within normal limits. I. Colon, right, biopsy: Colonic mucosa within normal limits. J. Colon, descending, polypectomy: Hyperplastic mucosal polyp. 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 Reviewed with findings with patient Medications: - Start Pantoprazole 20mg oral once daily. - Continue Famotidine as needed for breakthrough symptoms. Encouraged to take pantoprazole as prescribed, taken at least 30-60 minutes before a meal. Education on GERD prevention : -Advised against heavy meals; encouraged small, frequent meals instead of large ones. - Instructed to remain upright for 2?3 hours after eating. - Advised to avoid late-night meals, spicy foods, caffeine, alcohol, known dietary triggers, and tight-fitting clothing. - Emphasis placed on gradual implementation of lifestyle changes to improve adherence and symptom control. - Maintain a high-fiber diet to prevent constipation. (2) Tubular adenoma of colon: Comment: 01/13/25 colonoscopy complete with fair prep- Tubular adenoma (transverse, ascending), hyperplastic polyp (descending) , internal hemorrhoid Code(s): D12.6 - Benign neoplasm of colon, unspecified Category: Medical Plan: Repeat colonoscopy recommended in one year due to presence of pre-cancerous polyps and suboptimal prep on 01/13/25 colonoscopy. Lifestyle Modifications: - Continue high-fiber diet and adequate hydration to prevent constipation. - Regular physical activity. Plan Follow up in 3 months or sooner as needed Time: I spent a total of 35 minutes on the date of encounter which includes: Preparing to see the patient (reviewed previous documentation, test results and medical history) Performing a medically appropriate exam and/or evaluation Ordering medications, tests, and procedures Documenting clinical information in the health record Medications: New pantoprazole take one tablet daily. 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
[2025-01-27 09:38] VITALS: BP 123/64; PULSE 64; O2SAT 99; BMI 51.2
--- OUTSIDE RECORDS SUMMARY | 2025-01-27 10:24 | XMS_ITS | Encounter Summary ---
Author Organization [employer] [facility] Address [address] [place] [address] [address] [place] [address] Care Team Providers Care Grocery Packer Name Role Phone Carmen Bertrand DO Primary Care Provider [phone] Encounter Details Date Type Department Care Team (Late st Contact Info) Description 09/09/2022 Orders Only [facility] [address] [place] [address] Azul Albrecht LPN Social History Tobacco Use [...] Care Team (Late st Contact Info) Description 02/28/2025 10:00 AM EDT Clinical Support [facility] [address] [place] [id number] Jessica Conway, RN documented as of this encounter Visit Diagnoses Not on filedocumented in this encounter Care Teams Grocery Packer Relationship Specialty Start Date End Date Carmen Bertrand DO [address] [place] [address] PCP - General Family Medicine 08/18/18 documented as of this encounter
== END 2025-01-27 10:15 | disposition home or self-care (01) ==
LOC: HO.HGI 09:31
PROVIDERS: PCP Family Medicine; Visit Provider Nurse Practitioner Family
DX: K22.70 Barrett's esophagus without dysplasia (principal); D12.6 Benign neoplasm of colon, unspecified
CPT/HCPCS: 99213

== ENCOUNTER → 2025-01-27 09:30 | Outpatient (BNVA) | payer OTHER, SELFPAY ==
[2024-12-31 11:15] VITALS: BP 128/72; BP 140/60; BP 148/88; BMI 63.7
== END ==
PROVIDERS: PCP Family Medicine; Visit Provider Nurse Practitioner Family
DX: K22.70 Barrett's esophagus without dysplasia (principal); D12.6 Benign neoplasm of colon, unspecified
CPT/HCPCS: 99212

== ENCOUNTER 2025-01-28 15:08 | Outpatient (REF) | payer OTHER, SELFPAY ==
[2022-10-22 13:00] VITALS: BP 128/72; BP 148/88; BMI 63.7
[2025-01-27 10:17] VITALS: BP 128/72; BP 140/60; BP 148/88; BMI 63.7
--- NOTE | ~2025-01-28 | CT_ITS ---
EXAMINATION: CT ABDOMEN AND PELVIS WITHOUT CONTRAST CLINICAL INFORMATION: Unspecified hydronephrosis. COMPARISON: 11/07/2024. TECHNIQUE: Multidetector volumetric imaging was performed from the superior aspect of the liver through the pubic symphysis. Sagittal and coronal reformatted images were obtained on the technologist's workstation. This CT examination was performed using dose optimization techniques as appropriate, variously including the following: *Automated exposure control *Adjustment of mA and/or kV according to patient size (this includes techniques or standardized protocols for targeted exams where dose is matched to indication/reason for exam; i.e. extremities or head) *Use of iterative reconstruction technique FINDINGS: LUNG BASES: Lung bases demonstrate no abnormality. There are no effusions or consolidations. Heart size is normal. GE junction is normal. Minimal dependent atelectasis. LIVER, GALLBLADDER, AND BILIARY TREE: The unenhanced liver is normal in size, shape, and attenuation. No focal hepatic lesion or biliary ductal dilatation is present. The gallbladder is unremarkable with no evidence of radiopaque gallstones, gallbladder wall thickening, or obvious pericholecystic inflammatory changes. PANCREAS: Unremarkable. SPLEEN: Unremarkable. Small anterior splenule. ADRENAL GLANDS: Unremarkable. KIDNEYS AND URETERS: The kidneys are normal in size, shape, and attenuation. No hydronephrosis, or hydroureter. No perinephric stranding. There are 3 nonobstructing tiny calculi in the right kidney measuring up to 3 mm. There are no left renal calculi. There are no ureteral calculi. BLADDER: Unremarkable. GASTROINTESTINAL TRACT: The appendix is normal. Mildly redundant cecum. No inflammatory changes of the small bowel or colon. The rectum is normal. The stomach and duodenum appear normal. ABDOMINAL WALL: There is no discrete hernia. LYMPH NODES: No abnormal lymphadenopathy present. VASCULAR: Mild aortic and biiliac artery atheromatous calcification. No aneurysm. PELVIC VISCERA: There has been a hysterectomy. There are no adnexal masses. OSSEOUS STRUCTURES: No acute or suspicious bony abnormality. Mild arthritic changes in both hip joints, and both SI joints. Mild arthritic changes in the imaged spine. CT/CT kidney stone IMPRESSION: 1. There is no evidence of obstructive uropathy. 2. There are 3 tiny nonobstructing calculi in the right kidney. 3. Additional ancillary findings as discussed in the body of the report. Electronically signed by: Shamir Olmedo MD 01/28/2025 04:19 PM EDT
--- OUTSIDE RECORDS SUMMARY | 2025-01-28 15:10 | XMS_ITS | Data Portability ---
Author Organization [employer] [facility], [facility] Address [address] [place] [id number] Care Team Providers Care Tea Bag Machine Tender Name Role Phone [facility] OTHER [facility] [...] recorded. Lab rapid flu (A+B) 2024 025 [facility], [address] [place] [address], [id number] 15:45:24 rapid SARS CoV 2 Ag, QL IA, respiratory specimen [address], [id number] 15:45:08 Referral None recorded. Procedures None recorded. Surgeries None recorded. Imaging None recorded. Medication Orders albuterol sulfate 2.5 mg/3 mL (0.083 %) solution for nebulizatio n 2024 025 [facility] #[id number], [address] [place], [address], 5 18:27:03 Patient TargetsNo targets recorded. Patient InstructionsNo [...] Name and Address Organization Details Recorded Time 32667 aspirin medicatio n Not available Not available Not available 10/05/2024 1191 [facility] Not Available [facility] - production 5 13:36:43 54321 penicilli n V Not available Not available Not available Not available 10/05/2024 7984 RxNorm Not Available [facility] - production 5 13:36:43 47224 penicilli n G procaine medicatio n Not available Not available Not available 10/05/2024 7983 RxNorm Not Available [facility] - production 5 13:36:43 66793 penicilli n G benzathin e medicatio n [...] % 172.72 cm 18 /min 98.4 [degF] 608749. 272 g 131 mm[Hg] 78 mm[Hg] Not [...] SNOMED-CT Code Diagnosis ICD10 Code Diagnosis Note [id number] Reese Jarvis MD Main - [facility] [address] [place] [address] 10/05/2024 14:55:01 10/07/2024 08:39:41 Wheezing [id number] R06.2 Health Concerns Section Related Observation LastModified by Organization Detai ls LastModified Time None Recorded Concern Status LastModified by Organization Details LastModified Time None Recorded Advance Directives Directive None Recorded Payers Insurance Date Sequence Insurance Name Policy Number Policy Parra Covered Member ID Parra Member ID Guarantor Name 10/05/2024 1 [facility] ON OR AFTER 2022 - DUAL ELIGIBLE - [employer] OPTIONS AND ONE CARE (MEDICARE REPLACEMENT/ADV ANTAGE - HMO) Blaire Maria Luisa Jean [id number] Blaire Jean Notes Date Note Type Note Provider Name and Address Organization Details Recorded Time 10/05/2024 text/html HPI: Call returned to Blaire Jean to triage below. Reports having Headache, Fever, Body Aches, Sore Throat, Runny Nose x 3 days. Per pt seen at [facility] on Friday. Per pt seen for CP. Had testing done while in ER. Pt had negative homekit for COVID-19 last night. Reports having SOB with exertion. No wheezing. Pt speaking in clear full sentences. Pt advised of disposition, unable to come into [facility]. Agrees to [facility] for evaluation. Confirmed demographics and allergies. .................. .................. .................. .................. .................. .................. .................. ............... CRC Nurse Triage Notes (Radha Martinez - RN): Chief Complaints: Cough, Fever/chills, Headache, Sore throat, Breathing problems PMH: Hypertension, Asthma, Coronary Artery Disease PMH Reviewed at 10/05/2024 - 13:36 Allergies Reviewed at 10/05/2024 - 13:36 Comments: CRC RN did not require any additional information to process this visit. Elevator Constructor Helper Organization Information for Ankita Castillo Business Legal Name: [employer]? Address: [address] [place] [address], Verification Manager: Marino Dow MD CLIA No.: [id number] Elevator Constructor Helper POC Test Results from Ankita Castillo Rapid COVID antigen (14:56:21) COVID: - Rapid influenza antigen (14:56:24) Flu: - Rapid strep test (14:56:25) Strep: - .................. .................. .................. .................. .................. .................. .................. ............... Elevator Constructor Helper Note From Ankita Castillo: Sent to a call for a pt complaining of URI symptoms. SC8 arrives on scene, pt is alert and oriented, airway is patent. Pt complains of URI symptoms since Friday. Pt states she had chest tightness Friday-Friday, but was evaluated at [facility] ED on Friday. Pt states [...] administered; Lung sounds: clear bilaterally; SpO2:98% RA; [facility] consulted and sends script to pt's pharmacy for Albuterol neb solutions. Red flags discussed. Pt has no further questions. .................. .................. .................. .................. .................. .................. .................. ............... [facility] Consulted: Reese Jarvis .................. .................. .................. .................. .................. .................. .................. ............... Disposition: Fulfilled Reese Jarvis MD [address] [facility] [place],[address] [facility], [place], [address], [employer] TranslateBERNADINE SIMENTAL 10/06/2024 15:39:31 OBGyn Episode No OBEpisode recorded.
== END 2025-01-28 15:09 | disposition home or self-care (01) ==
LOC: HO.CT 15:08
PROVIDERS: Visit Provider Urology
DX: N13.30 Unspecified hydronephrosis (principal); N20.0 Calculus of kidney; R10.9 Unspecified abdominal pain
CPT/HCPCS: 74176

== ENCOUNTER → 2025-01-28 15:09 | Outpatient (BNV) | payer OTHER, SELFPAY ==
[2025-01-27 10:17] VITALS: BP 128/72; BP 140/60; BP 148/88; BMI 63.7
== END ==
PROVIDERS: Visit Provider Radiology Diagnostic Radiology
DX: N20.0 Calculus of kidney (principal)
CPT/HCPCS: 74176

== ENCOUNTER 2025-02-03 14:34 | Outpatient (AMB) | payer OTHER, SELFPAY ==
[2022-10-22 13:00] VITALS: BP 128/72; BP 148/88; BMI 63.7
[2025-01-27 10:17] VITALS: BP 128/72; BP 140/60; BP 148/88; BMI 63.7
--- NOTE | 2025-02-03 14:47 | MHC.OFFVIS ---
Vital Signs 02/03/25 14:50 Height 5 ft 8 in Weight 337 lb BMI 51.2 BP 128/72 Blood Pressure Location Lt brachial Position Sitting Pulse 66 Intake Visit Reasons: dermoid cyst head (L) Intake Note: Blaire presents in the office for a dermoid cyst on her head - she went to the ED and she got inpatient and left. Pains when it swells up and she states that it has come with a fever. Public Relations Counselor Required: Yes Public Relations Counselor Name: Daughter Allergies penicillin G (PENICILLIN G) Allergy (Severe, Verified 02/03/25 14:48) DIFFICULTY BREATHING semaglutide (From Ozempic) Adverse Reaction (Severe, Verified 02/03/25 14:48) Stomach Upset Medication List - Last Reconciled 02/03/25 by Man Oviedo MD albuterol sulfate 90 mcg/actuation (Ventolin HFA) 2 puffs PO Q4-6H PRN albuterol sulfate 2.5 mg inhalation Q4-6H PRN allopurinol 100 mg PO DAILY 90 days amlodipine (Norvasc) 5 mg PO DAILY aspirin 81 mg PO DAILY atorvastatin (Lipitor) 80 mg PO BEDTIME benzoyl peroxide 10% 1 appl topical DAILY blood pressure test kit-large As directed cholecalciferol (vitamin D3) 50 mcg PO DAILY clopidogrel 75 mg PO DAILY doxycycline hyclate 100 mg PO BID econazole nitrate 1% 1 appl topical BID emtricitabine-tenofovir (TDF) 200-300 mg 1 tab PO DAILY ezetimibe 10 mg PO DAILY famotidine 40 mg PO BEDTIME PRN fluticasone propionate 50 mcg/actuation 2 sprays intranasal DAILY fluticasone propionate 110 mcg/actuation 2 puffs inhalation BID hydrochlorothiazide 12.5 mg PO DAILY hydroquinone 4% 1 appl topical BID isosorbide mononitrate ER 60 mg PO DAILY lisinopril 20 mg PO DAILY metformin ER 500 mg PO DAILY@1700 metoprolol succinate ER 50 mg PO DAILY metronidazole 0.75% 1 appl topical DAILY PRN nitroglycerin 0.4 mg sublingual Q5M PRN pantoprazole 20 mg PO DAILY pyridoxine (vitamin B6) 100 mg PO DAILY 90 days tirzepatide (weight loss) (Zepbound) mg subcut QWEEK topiramate 50 mg PO BID tramadol 50 mg PO Q8H PRN HPI Comments Details: 49-year-old female patient with a previous history of an infection of the right breast now presenting with a new cyst located in the posterior left scalp. This has been present for several months and occasionally will swell and cause increased pain and then shrink. She denies any bleeding or discharge from the site. She denies a history of trauma or previous surgery at this location. She has requested excision of this lesion. [facility] Medical History Tubular adenoma of colon Delgado esophagus Morbid obesity Hidradenitis suppurativa CAD (coronary artery disease) Subsequent non-ST elevation myocardial infarction (NSTEMI) within 4 weeks of initial infarction Non-ST elevation [place] (NSTEMI) YAMILETH on CPAP Hyperlipidemia PTSD (post-traumatic stress disorder) Fatty liver Smoker Depression Obesity Leukocytosis Frequent UTI Asthma Mass of throat Chronic pain Kidney stone Migraine HTN (hypertension) Surgical History History of esophagogastroduodenoscopy (EGD) H/O excision of mass (06/28/24) Hx of cystoscopy Stented coronary artery History of heart artery stent History of lumpectomy of left breast (10/22/21) History of lithotripsy History of endometrial ablation Hx of colonoscopy History of breast lump/mass excision History of tonsillectomy H/O: hysterectomy Family History Father Hypertension Mother Hypertension Osteoporosis Hx of bilateral cataract extraction Paternal Grandmother Diabetes Sister Asthma Maternal Uncle Throat cancer Maternal Aunt Ovarian cancer Breast cancer Social History Household Members: Family Housing: Apartment Are you a primary healthcare project manager to a significant other at home: No Do you presently have visiting nurse or other home services: No Alcohol intake: never Comment: pt refusing alarms Patient Tobacco Use Status: Current everyday Tobacco user Tobacco use type: Cigarette Cigarette Packs Per Day: 0.5 Cigarettes Per Day: 10 Years Smoked: 30 e-Cigarette/Vaping Use: Never Used Second Hand Smoke Exposure: No Advance Directives Date on File: 10/28/22 service: No Current occupational status: unemployed and retired Review of Systems Const All systems reviewed & are unremarkable except as noted in HPI and below Physical Exam Vital Signs: Last Vital Signs Pulse 66 02/03/25 14:50 BP 128/72 02/03/25 14:50 BMI result Body Mass Index 51.2 Const General: no acute distress Nutritional Appearance: well nourished Orientation/consciousness: patient oriented x3 Limitations: no limitations HEENT Other: Pilar cyst in the posterior left scalp measuring approximately 1.5 cm in diameter, with minimal fluctuance to palpation suggestive of an underlying infection. Head images:  1. Site of Pilar cyst posterior scalp Chest Other: Previous breast incision is now well healed without any evidence of necrotic skin or ulceration. Resp Effort & Inspection: normal respiratory effort GI Inspection: Yes normal to inspection Skin Other: Breast lesions as noted above. Neuro General: patient oriented x3 Extrem Other: No edema Assessment & Plan Assessment & Plan (1) Pilar cyst of scalp: Code(s): L72.11 - Pilar cyst Category: Medical Plan 49-year-old female patient presenting with a Pilar cyst of the posterior scalp which is causing some discomfort. On examination it measures approximately 1.5 cm located in the posterior left scalp with a some fluctuance to palpation. I recommended starting antibiotics for the next 7 days. She will return for an excision of the cyst as an office procedure under local anesthesia. I reviewed the procedure, risks, and alternatives and she consents to the surgery. Medications: New doxycycline hyclate 100 mg PO BID 14 tabs 0RF L72.11 - Pilar cyst Coding Level of Care Code Est Pt Level 4 (67041) Diagnoses Pilar cyst of scalp L72.11
[2025-02-03 14:50] VITALS: BP 128/72; PULSE 66; BMI 51.2
--- OUTSIDE RECORDS SUMMARY | 2025-02-03 15:52 | XMS_ITS | Encounter Summary ---
Author Organization [facility] Address [address] [place] [address] [address] [place] [address] Care Team Providers Care Jute Bag Sewer Name Role Phone Carmen Bertrand DO Primary Care Provider [phone] Encounter Details Date Type Department Care Team (Late st Contact Info) Description 09/09/2022 Orders Only [facility] [address] [place] [address] Azul Albrecht LPN Social History Tobacco Use [...] Description 02/28/2025 10:00 AM EDT Clinical Support [facility] [address] [place] [id number] Jessica Conway, RN documented as of this encounter Visit Diagnoses Not on filedocumented in this encounter Care Teams Jute Bag Sewer Relationship Specialty Start Date End Date Carmen Bertrand DO [address] [place] [address] PCP - General Family Medicine 08/18/18 documented as of this encounter
== END 2025-02-03 15:01 | disposition home or self-care (01) ==
PROVIDERS: PCP Family Medicine; Visit Provider Surgery
DX: L72.11 Pilar cyst (principal)
CPT/HCPCS: 99214

== ENCOUNTER → 2025-02-03 14:34 | Outpatient (BNVA) | payer OTHER, SELFPAY ==
[2025-01-27 10:17] VITALS: BP 128/72; BP 140/60; BP 148/88; BMI 63.7
== END ==
PROVIDERS: PCP Family Medicine; Visit Provider Surgery
DX: L72.11 Pilar cyst (principal)
CPT/HCPCS: 99212

== ENCOUNTER 2025-02-07 15:46 | Outpatient (AMB) | payer OTHER, SELFPAY ==
[2022-10-22 13:00] VITALS: BP 128/72; BP 148/88; BMI 63.7
[2025-01-27 10:17] VITALS: BP 128/72; BP 140/60; BP 148/88; BMI 63.7
--- NOTE | 2025-02-07 16:08 | A.OFFVIS_ITS ---
Intake Visit Reasons: 8w/CT/[facility] Intake Note: Patient is Present for a 8w follow up/CT/[facility] * [facility] comp. 12/24 * CT 01/28 Urology Med: Vitamin B6, Allopurinol, Antibiotic Allergy:Penicillins Blood Thinner:Aspirin Office Machinery Or Equipment Installer Required: Yes Office Machinery Or Equipment Installer Language: [employer]: Office Machinery Or Equipment Installer Present Office Machinery Or Equipment Installer Name: [email or web address] [id number] Information Interpreted: non-clinical & clinical Accompanied by: Self / Same As Patient Allergies penicillin G (PENICILLIN G) Allergy (Severe, Verified 02/07/25 16:12) DIFFICULTY BREATHING semaglutide (From Ozempic) Adverse Reaction (Severe, Verified 02/07/25 16:12) Stomach Upset Medication List - Last Reconciled 02/07/25 by Ricardo Lepe MD albuterol sulfate 90 mcg/actuation (Ventolin HFA) 2 puffs PO Q4-6H PRN albuterol sulfate 2.5 mg inhalation Q4-6H PRN allopurinol 100 mg PO DAILY 90 days amlodipine (Norvasc) 5 mg PO DAILY aspirin 81 mg PO DAILY atorvastatin (Lipitor) 80 mg PO BEDTIME benzoyl peroxide 10% 1 appl topical DAILY blood pressure test kit-large As directed cholecalciferol (vitamin D3) 50 mcg PO DAILY clopidogrel 75 mg PO DAILY doxycycline hyclate 100 mg PO BID econazole nitrate 1% 1 appl topical BID emtricitabine-tenofovir (TDF) 200-300 mg 1 tab PO DAILY ezetimibe 10 mg PO DAILY famotidine 40 mg PO BEDTIME PRN fluticasone propionate 50 mcg/actuation 2 sprays intranasal DAILY fluticasone propionate 110 mcg/actuation 2 puffs inhalation BID hydrochlorothiazide 12.5 mg PO DAILY hydroquinone 4% 1 appl topical BID isosorbide mononitrate ER 60 mg PO DAILY lisinopril 20 mg PO DAILY metformin ER 500 mg PO DAILY@1700 metoprolol succinate ER 50 mg PO DAILY metronidazole 0.75% 1 appl topical DAILY PRN nitroglycerin 0.4 mg sublingual Q5M PRN pantoprazole 20 mg PO DAILY pyridoxine (vitamin B6) 100 mg PO DAILY 90 days tirzepatide (weight loss) (Zepbound) mg subcut QWEEK topiramate 50 mg PO BID tramadol 50 mg PO Q8H PRN HPI Comments Details: 02/07/25-- History of Present Illness - The patient is a 49-year-old female presenting with a follow-up to review the 24-hour urine collection results. - Nephrolithiasis: The patient has a history of kidney stones, with a recent CT scan showing three very tiny stones in the right kidney. - Hyperoxaluria: The patient's urine oxalate level is elevated at 88, which is associated with dietary intake of oxalate-rich foods such as green leafy vegetables, nuts, berries, tea, and dark chocolate. - Hypocitraturia: The urine citrate level is 261, which is lower than recommended, and the patient has been advised to increase citrate intake through lemon concentrate. - Consult with Nephrology-the patient is on hydrochlorothiazide. Results- 24 hr urine - Urine volume: 1.79 liters, slightly lower than prior collection - Urine calcium: 48, within normal range - Urine oxalate: 88, elevated - Urine citrate: 261, lower than recommended - Urine sodium: 213, elevated - CT scan: 01/28/25--Three tiny stones in the right kidney measuring up to 3 mm Discussion Notes I reviewed the 24-hour urine collection results with the patient, noting that the urine volume was slightly lower than the previous collection but close to 2 liters. I advised the patient to continue increasing fluid intake, primarily water, to reach 48 to 64 ounces daily. The urine calcium level was within normal range, which is positive. However, the urine oxalate level was elevated, and I emphasized the importance of dietary modifications to reduce oxalate intake. The urine citrate level was low, and I recommended adding lemon concentrate to water to increase citrate levels, which acts as a natural stone inhibitor. The patient is currently taking hydrochlorothiazide as prescribed by the public relations consultant, and I confirmed her adherence to this medication. We discussed the recent CT scan findings, which showed three tiny stones in the right kidney, and I advised continued follow-up with our nurse practitioner for a renal ultrasound in 10 months. 12/13/2024--Blaire is a 49-year-old female who has been followed for kidney stones. She was last in the office in June 2024. The patient was recently hospitalized at [facility] for renal colic and had cardiac issues during that admission. She was seen by Cardiology on 11/23/2024 Results: CTAP--11/07/2024-- 4 mm left ureteral calculus at the level of L5 with mild left hydronephrosis.Multiple additional nonobstructing bilateral renal calculi. Stone analysis 03/02/24--calcium oxalate 07/01/24--Discussed 24 hour urine results: Total volume 2.26 mL, Calcium 225 mg; Oxalate 62 mg, Sodium 259, Citrate 309 mg. 03/02/24--Stone analysis calcium oxalate. Instructed on importance of fluid intake, Low oxalate diet, low sodium diet. Refer to Nephrology for hypercalciuria. 03/25/2024--here for stent removal. status post ureteroscopy laser lithotripsy on 03/02/2024. I have reviewed stone analysis--calcium oxalate dihydrate 95%, calci um oxalate monohydrate 5%. Review of imaging CTAP--02/13/2024 there are multiple bilateral kidney stones. Continue allopurinol 100 mg daily and vitamin B6 100 mg daily. Plan 24 hour urine collection. 02/27/2024--Blaire is a 48-year-old Turkish-speaking female, her daughter interprets for her during this visit. The patient had a right ureteral stent placed while an inpatient on 02/13/2024 for right hydronephrosis secondary to obstructing 3.5 mm proximal ureteral stone, s/p right ureteral stent. CT imaging notes bilateral small kidney stones. I have discussed plan for right ureteroscopy laser lithotripsy stent exchange. 10/28/23--Blaire is a pleasant 48 year old Turkish speaking patient of Dr. Bertrand. She has a past medical history of asthma, coronary artery disease, chronic pain, depression, fatty liver, hypertension, nephrolithiasis, migraines, non ST-elevation UT, obesity, obstructive sleep apnea on CPAP, PTSD and nicotine dependence. She presents to the office today for follow-up of her nephrolithiasis and recurrent urinary tract infections. In discussion with the patient today she reports to be doing and feeling well via urologically. She does discuss following up with GI for ongoing gastric issues she has been having and has since come off of Ozempic as she feels this was a contributing factor. Recent renal imaging results reviewed with the patient today. Right kidney with 0.5 cm lower pole calculus no hydronephrosis. Left kidney with 0.5 cm mid to lower pole calculus. Mid pole 0.4 left calculus. No hydronephrosis. No change in the renal calculi since prior CT. She otherwise denies hematuria, dysuria, foul smelling urine, changes to urinary stream, flank pain, fever, and or chills. She denies any bothersome urinary issues or concerns at this time. She reports compliance with vitamin B6 and alluprinol as prescribed. She continues to drink plenty of water daily. In office urinalysis results reviewed with the patient today. She denies having had any UTIs since her last office visit here approximately 6 months ago. She otherwise offers no other issues or concerns at this time. [facility] Medical History Tubular adenoma of colon Delgado esophagus Morbid obesity Hidradenitis suppurativa CAD (coronary artery disease) Subsequent non-ST elevation myocardial infarction (NSTEMI) within 4 weeks of initial infarction Non-ST elevation UT (NSTEMI) YAMILETH on CPAP Hyperlipidemia PTSD (post-traumatic stress disorder) Fatty liver Smoker Depression Obesity Leukocytosis Frequent UTI Asthma Mass of throat Chronic pain Kidney stone Migraine HTN (hypertension) Surgical History History of esophagogastroduodenoscopy (EGD) H/O excision of mass (06/28/24) Hx of cystoscopy Stented coronary artery History of heart artery stent History of lumpectomy of left breast (10/22/21) History of lithotripsy History of endometrial ablation Hx of colonoscopy History of breast lump/mass excision History of tonsillectomy H/O: hysterectomy Family History Father Hypertension Mother Hypertension Osteoporosis Hx of bilateral cataract extraction Paternal Grandmother Diabetes Sister Asthma Maternal Uncle Throat cancer Maternal Aunt Ovarian cancer Breast cancer Social History Household Members: Family Housing: Apartment Are you a primary resident care manager rn to a significant other at home: No Do you presently have visiting nurse or other home services: No Alcohol intake: never Comment: pt refusing alarms Patient Tobacco Use Status: Current everyday Tobacco user Tobacco use type: Cigarette Cigarette Packs Per Day: 0.5 Cigarettes Per Day: 10 Years Smoked: 30 e-Cigarette/Vaping Use: Never Used Second Hand Smoke Exposure: No Advance Directives Date on File: 10/28/22 service: No Current occupational status: unemployed and retired Review of Systems Const All systems reviewed & are unremarkable except as noted in HPI and below Reports no additional complaints Eyes Reports no additional complaints ENT Reports no additional complaints Card Reports no additional complaints Resp Reports no additional complaints GI Reports no additional complaints Reports as per HPI Musc Reports no additional complaints Skin/Breast Reports system reviewed and no additional complaints, except as documented Neuro Reports no additional complaints Psych Reports no additional complaints Endo Reports no additional complaints Brian/Lymph Reports no additional complaints Aller/Immun Reports no additional complaints Telehealth Telehealth Telehealth Platform: Telephone Location of provider rendering services: practice address Location of patient: address on file Patient Identification confirmed using: Name, : Yes Telehealth method: voice only Patient verbally consented to treatment: Yes Patient verbally consented to billing insurance company: Yes Patient informed of any privacy concerns related to visit: Yes Minutes spent on Phone/Video with Pt.: 16 Results Reviewed Results Reviewed: Date of Service: 01/28/25 CT ABDOMEN AND PELVIS WITHOUT CONTRAST CLINICAL INFORMATION: Unspecified hydronephrosis. COMPARISON: 11/07/2024. TECHNIQUE: Multidetector volumetric imaging was performed from the superior aspect of the liver through the pubic symphysis. Sagittal and coronal reformatted images were obtained on the technologist's workstation. This CT examination was performed using dose optimization techniques as appropriate, variously including the following: *Automated exposure control *Adjustment of mA and/or kV according to patient size (this includes techniques or standardized protocols for targeted exams where dose is matched to indication/reason for exam; i.e. extremities or head) *Use of iterative reconstruction technique FINDINGS: LUNG BASES: Lung bases demonstrate no abnormality. There are no effusions or consolidations. Heart size is normal. GE junction is normal. Minimal dependent atelectasis. LIVER, GALLBLADDER, AND BILIARY TREE: The unenhanced liver is normal in size, shape, and attenuation. No focal hepatic lesion or biliary ductal dilatation is present. The gallbladder is unremarkable with no evidence of radiopaque gallstones, gallbladder wall thickening, or obvious pericholecystic inflammatory changes. PANCREAS: Unremarkable. SPLEEN: Unremarkable. Small anterior splenule. ADRENAL GLANDS: Unremarkable. KIDNEYS AND URETERS: The kidneys are normal in size, shape, and attenuation. No hydronephrosis, or hydroureter. No perinephric stranding. There are 3 nonobstructing tiny calculi in the right kidney measuring up to 3 mm. There are no left renal calculi. There are no ureteral calculi. BLADDER: Unremarkable. GASTROINTESTINAL TRACT: The appendix is normal. Mildly redundant cecum. No inflammatory changes of the small bowel or colon. The rectum is normal. The stomach and duodenum appear normal. ABDOMINAL WALL: There is no discrete hernia. LYMPH NODES: No abnormal lymphadenopathy present. VASCULAR: Mild aortic and biiliac artery atheromatous calcification. No aneurysm. PELVIC VISCERA: There has been a hysterectomy. There are no adnexal masses. OSSEOUS STRUCTURES: No acute or suspicious bony abnormality. Mild arthritic changes in both hip joints, and both SI joints. Mild arthritic changes in the imaged spine. IMPRESSION: 1. There is no evidence of obstructive uropathy. 2. There are 3 tiny nonobstructing calculi in the right kidney. 3. Additional ancillary findings as discussed in the body of the report. Date of Service: 11/07/24 Report Number: [id number]: Total DLP = 1392.00 mGy-cm CLINICAL HISTORY: left flank pain CT abdomen and pelvis without contrast Comparison: DX - XR HIP RT MIN 2V - 09/17/24 11:03 EST US/SR - US ABDOMEN COMPLETE - 05/07/24 09:[address]/KS/SR - CT ABDOMEN PELVIS WO IV CON - 02/12/24 20:37 EDT Findings: Small hiatal hernia. Liver, gallbladder, pancreas, spleen, and adrenal glands are within normal limits. There is a small accessory splenule. Mild left hydronephrosis with 4 mm calculus in the left ureter at the level of L5. No hydronephrosis on the right. There are multiple additional bilateral nonobstructing renal calculi. No bowel obstruction, pneumoperitoneum, or pneumatosis. Aortic atherosclerosis. No aneurysm. Hysterectomy. The bones are intact. Degenerative changes of the spine. IMPRESSION: 4 mm left ureteral calculus at the level of L5 with mild left hydronephrosis. Multiple additional nonobstructing bilateral renal calculi. 03/02/24--Stone analysis calcium oxalate Date of Service: 02/12/24 EXAMINATION: CT ABDOMEN AND PELVIS WITHOUT CONTRAST CLINICAL INFORMATION: Right flank pain. Renal calculi. COMPARISON: CT abdomen pelvis dated 02/06/2024. TECHNIQUE: Multidetector volumetric imaging was performed from the superior aspect of the liver through the pubic symphysis. Sagittal and coronal reformatted images were obtained on the technologist's workstation. This CT examination was performed using dose optimization techniques as appropriate, variously including the following: *Automated exposure control *Adjustment of mA and/or kV according to patient size (this includes techniques or standardized protocols for targeted exams where dose is matched to indication/reason for exam; i.e. extremities or head) *Use of iterative reconstruction technique DLP: 1294 mGy-cm FINDINGS: LUNG BASES: The visualized lung bases are unremarkable. LIVER, GALLBLADDER, AND BILIARY TREE: The liver is normal in size, shape, and attenuation. No focal hepatic lesion or biliary ductal dilatation is present. The gallbladder is unremarkable with no evidence of radiopaque gallstones, gallbladder wall thickening, or obvious pericholecystic inflammatory changes. PANCREAS: Unremarkable. SPLEEN: Unremarkable. ADRENAL GLANDS: Unremarkable. KIDNEYS AND URETERS: Right side: The right kidney is asymmetrically larger than the left and appears somewhat edematous. There is mild right-sided hydronephrosis. The proximal right ureter is dilated to the level of a calculus measuring 3.5 mm. The ureter distal to this calculus is decompressed. The right kidney contains multiple calculi ranging in size from punctate to 2.8 mm. These calculi are too small to get accurate Hounsfield unit values. Left side: There are multiple left renal calculi ranging in size from punctate to 4 mm in size. The 4 mm calculus has an average Hounsfield unit value of 405. There is no left-sided hydronephrosis. No left ureteral calculus. BLADDER: The urinary bladder is decompressed. No urinary bladder calculi are identified. GASTROINTESTINAL TRACT: The small and large bowel are normal in caliber. There is no pericolonic inflammatory stranding. The appendix is nonvisualized. ABDOMINAL WALL: No significant hernia is appreciated. LYMPH NODES: No lymphadenopathy. VASCULAR: No abdominal aortic aneurysm. Minimal atherosclerotic change. PELVIC VISCERA: The uterus is not visualized. There is no adnexal mass. No free fluid within the pelvis. OSSEOUS STRUCTURES: There are degenerative changes of lower lumbar spine. CT/CT abdomen pelvis wo IV con IMPRESSION: The right kidney is asymmetrically larger than the left and appears somewhat edematous. There is mild right-sided hydronephrosis. The proximal right ureter is dilated to the level of a calculus measuring 3.5 mm. The ureter distal to this calculus is decompressed. The right kidney contains multiple calculi ranging in size from punctate to 2.8 mm. These calculi are too small to get accurate Hounsfield unit values. Fleischner guidelines were followed. There are multiple left renal calculi ranging in size from punctate to 4 mm in size. The 4 mm calculus has an average Hounsfield unit value of 405. There is no left-sided hydronephrosis. No left ureteral calculus. Date of Service: 10/07/23 EXAMINATION: US RETROPERITONEAL LIMITED (RENAL ONLY) FINDINGS: RIGHT KIDNEY: 11.5 x 6.4 x 5.6 cm (SAG x AP x TRV). A 0.5 cm lower pole calculus. No hydronephrosis. Renal cortical thickness is normal. Limited visualization. LEFT KIDNEY: 11.5 x 5.2 x 4.6 cm (SAG x AP x TRV). Limited visualization. Renal cortical thickness is normal. Mid to lower pole 0.5 cm calculus. Mid pole 0.4 cm calculus. No hydronephrosis. IMPRESSION: Bilateral nonobstructive renal calculi. No hydronephrosis. Assessment & Plan Assessment & Plan (1) Morbid obesity: Code(s): E66.01 - Morbid (severe) obesity due to excess calories Category: Medical Plan: She is on medications for weight loss. (2) Hypercalciuria: Code(s): R82.994 - Hypercalciuria Category: Medical (3) Hyperoxaluria: Code(s): R82.992 - Hyperoxaluria Category: Medical Plan Plan - Continue to hydrate, aiming for 48 - 64 ounces of water daily to maintain adequate urine volume. - Recommend dietary modifications to reduce oxalate intake, including limiting foods such as green leafy vegetables, nuts, berries, tea, and dark chocolate. - Vit B6 100 mg daily - Advise the addition of lemon concentrate to water to increase urine citrate levels, which helps inhibit stone formation. - Plan for a follow-up renal ultrasound in 10 months to monitor kidney stone status. - Medications: Refilled pyridoxine (vitamin B6) 100 mg PO DAILY 90 tabs 3RF 90 days N20.0 - Calculus of kidney Patient Instructions: The patient had an opportunity to ask questions regarding treatment plan. The patient expressed understanding and agreement with the above treatment plan. The patient is aware they should contact our office by phone for worsening of their current condition or the appearance of new symptoms. Compliance is encouraged with any medications and followup testing that is ordered. It is a privilege to be allowed the opportunity to participate in the urologic care of your patient. If you have any questions or concerns regarding treatment for the above conditions please do not hesitate to contact me. The office telephone contact is [phone]. This note is constructed in part using voice recognition software. While every effort has been made to ensure accuracy electrical products engineer errors may have been included. Yours sincerely, Ricardo Lepe MD Scribe Plan - Not visible on output: Patient was informed and verbally consented to the use of an ambient scribe for clinic note documentation during this visit. Coding Level of Care Code Tele Est Pt Level 4 (05723) Diagnoses Morbid obesity E66.01 Hypercalciuria R82.994 Hyperoxaluria R82.992
--- OUTSIDE RECORDS SUMMARY | 2025-02-07 17:14 | XMS_ITS | Data Portability ---
Author Organization [employer] [facility], [place] in[facility] Address [address] [place] [phone] Care Team Providers Care Senior Industrial Engineer Name Role Phone [facility] OTHER [phone] [facility] OTHER Assessment Encounter Date Assessment [...] recorded. Lab rapid flu (A+B) 2024 025 [facility], [address] [place] [address], [id number] 5 15:45:24 rapid SARS CoV 2 Ag, QL [place], respiratory specimen [address], [phone] 5 15:45:08 Referral None recorded. Procedures None recorded. Surgeries None recorded. Imaging None recorded. Medication Orders albuterol sulfate 2.5 mg/3 mL (0.083 %) solution for nebulizatio n 2024 025 [facility] #[id number], [address] [place], [address], 18:27:03 Patient TargetsNo targets recorded. Patient InstructionsNo [...] Name and Address Organization Details Recorded Time 64704 aspirin medicatio n Not available Not available Not available 10/05/2024 1191 RxNorm Not Available [facility] - production 5 13:36:43 59739 penicilli n V Not available Not available Not available Not available 10/05/2024 7984 RxNorm Not Available [facility] - production 5 13:36:43 32389 penicilli n G procaine medicatio n Not available Not available Not available 10/05/2024 7983 RxNorm Not Available [facility] - production 5 13:36:43 81949 penicilli n G benzathin e medicatio n [...] % 172.72 cm 18 /min 98.4 [degF] 264441. 272 g 131 mm[Hg] 78 mm[Hg] Not Available [employer] - production 5 14:56:14 Social History None recorded. Functional Status None recorded. Mental Status None recorded. Family History Nothing Reported. Medical History No medical history recorded. Gynecological HistoryNo gynecological history recorded. Obstetrics History GPAL:G 0 P 0 0 0 0 Past Encounters Encounter ID Performer Location Encounter Start Date Encounter Closed Date Diagnosis/Indication Diagnosis SNOMED-CT Code Diagnosis ICD10 Code Diagnosis Note [id number] Reese Jarvis MD Main - [facility] [address] [place] [phone] 10/05/2024 14:55:01 10/07/2024 08:39:41 Wheezing 76121977 R06.2 Health Concerns Section Related Observation LastModified by Organization Detai ls LastModified Time None Recorded Concern Status LastModified by Organization Details LastModified Time None Recorded Advance Directives Directive None Recorded Payers Insurance Date Sequence Insurance Name Policy Number Policy Parra Covered Member ID Parra Member ID Guarantor Name 10/05/2024 1 [facility] - DOS ON OR AFTER 2022 - DUAL ELIGIBLE - HALFWAY OPTIONS AND ONE CARE (MEDICARE REPLACEMENT/ADV ANTAGE - HMO) Blaire Santosrio Jean [id number] Blaire Santosminnie Jean Notes Date Note Type Note Provider Name and Address Organization Details Recorded Time 10/05/2024 text/html HPI: Call returned to Blaire Jean to triage below. Reports having Headache, Fever, Body Aches, Sore Throat, Runny Nose x 3 days. Per pt seen at [facility] on Friday. Per pt seen for CP. Had testing done while in ER. Pt had negative homekit for COVID-19 last night. Reports having SOB with exertion. No wheezing. Pt speaking in clear full sentences. Pt advised of disposition, unable to come into [facility]. Agrees to [facility] for evaluation. Confirmed demographics and allergies. .................. .................. .................. .................. .................. .................. .................. ............... CRC Nurse Triage Notes (Radha Martinez - RN): Chief Complaints: Cough, Fever/chills, Headache, Sore throat, Breathing problems PMH: Hypertension, Asthma, Coronary Artery Disease PMH Reviewed at 10/05/2024 - 13:36 Allergies Reviewed at 10/05/2024 - 13:36 Comments: CRC RN did not require any additional information to process this visit. Fire Control Officer Organization Information for Ankita Castillo Business Legal Name: [employer] Address: [address] [place] [id number], Accounting Systems Manager: Marino Dow MD CLIA No.: [id number] Fire Control Officer POC Test Results from Ankita Castillo Rapid COVID antigen (14:56:21) COVID: - Rapid influenza antigen (14:56:24) Flu: - Rapid strep test (14:56:25) Strep: - .................. .................. .................. .................. .................. .................. .................. ............... Fire Control Officer Note From Ankita Castillo: Sent to a call for a pt complaining of URI symptoms. SC8 arrives on scene, pt is alert and oriented, airway is patent. Pt complains of URI symptoms since Friday. Pt states she had chest tightness Friday-Friday, but was evaluated at [facility] ED on Friday. Pt states she [...] sounds: clear bilaterally; SpO2:98% RA; [facility] consulted and sends script to pt's pharmacy for Albuterol neb solutions. Red flags discussed. Pt has no further questions. .................. .................. .................. .................. .................. .................. .................. ............... [facility] Consulted: Reese Jarvis .................. .................. .................. .................. .................. .................. .................. ............... Disposition: Fulfilled Reese Jarvis MD [address] [facility],[address] [facility], [place], [phone], [employer] PocketsBERNADINE SIMENTAL 10/06/2024 15:39:31 OBGyn Episode No OBEpisode recorded.
== END 2025-02-07 16:52 | disposition home or self-care (01) ==
LOC: HO.HUSH 15:47
PROVIDERS: PCP Family Medicine; Visit Provider Urology
DX: E66.01 Morbid (severe) obesity due to excess calories (principal); R82.994 Hypercalciuria; R82.992 Hyperoxaluria
CPT/HCPCS: 99214

== ENCOUNTER 2025-03-03 11:02 | Outpatient (AMB) | payer OTHER, SELFPAY ==
[2025-01-27 10:17] VITALS: BP 128/72; BP 140/60; BP 148/88; BMI 63.7
--- NOTE | 2025-03-03 11:03 | A.OFFVIS_ITS ---
Intake Visit Reasons: OV-Follow up for Lt lower back pain Intake Note: Blaire is a 49 year old female who presents today for a follow up for her left lower back pain. Patient was last seen in office 09/17/24 for lower back pain and right hip pain, patient was sent to have SI joint x-rays and Left Hip X-Ray. The patient states she reports the pain has worsened and she reports that when it hurts a lot if she doesn't sit down then she will fall down. She has tried ice and heat and none of them have helped. [employer] Field Coordinator Required: Yes [employer] Pract[employer] Field Coordinator Services: [employer] Field Coordinator Present [employer] Field Coordinator Name: Teresa [phone] Allergies penicillin G (PENICILLIN G) Allergy (Severe, Verified 03/03/25 11:20) DIFFICULTY BREATHING semaglutide (From Ozempic) Adverse Reaction (Severe, Verified 03/03/25 11:20) Stomach Upset Medication List - Last Reconciled 03/03/25 by Gali Schwartz, RN albuterol sulfate 90 mcg/actuation (Ventolin HFA) 2 puffs PO Q4-6H PRN albuterol sulfate 2.5 mg inhalation Q4-6H PRN allopurinol 100 mg PO DAILY 90 days amlodipine (Norvasc) 5 mg PO DAILY aspirin 81 mg PO DAILY atorvastatin (Lipitor) 80 mg PO BEDTIME benzoyl peroxide 10% 1 appl topical DAILY blood pressure test kit-large As directed cholecalciferol (vitamin D3) 50 mcg PO DAILY clopidogrel 75 mg PO DAILY doxycycline hyclate 100 mg PO BID econazole nitrate 1% 1 appl topical BID emtricitabine-tenofovir (TDF) 200-300 mg 1 tab PO DAILY ezetimibe 10 mg PO DAILY famotidine 40 mg PO BEDTIME PRN fluticasone propionate 50 mcg/actuation 2 sprays intranasal DAILY fluticasone propionate 110 mcg/actuation 2 puffs inhalation BID hydrochlorothiazide 12.5 mg PO DAILY hydroquinone 4% 1 appl topical BID isosorbide mononitrate ER 60 mg PO DAILY lisinopril 20 mg PO DAILY metformin ER 500 mg PO DAILY@1700 metoprolol succinate ER 50 mg PO DAILY metronidazole 0.75% 1 appl topical DAILY PRN nitroglycerin 0.4 mg sublingual Q5M PRN pantoprazole 20 mg PO DAILY pyridoxine (vitamin B6) 100 mg PO DAILY 90 days tirzepatide (weight loss) (Zepbound) mg subcut QWEEK topiramate 50 mg PO BID tramadol 50 mg PO Q8H PRN HPI Comments Details: Last seen by me 09/17/2024 for knee and hip pain. Workup was ordered. Found to have REBECCA positive and rheumatoid factor positive, referred to rheumatology. Rheumatology appointment is on 04/13/2025. Patient saw Orthopedics PA for knee injection 12/31/2024. She follows with nephrology for renal calculi. She was in the hospital in October, discharge summary reviewed. She follows with GI. She was in the ER more recently for occipital mass, but left without completing treatment. Hip x-ray done in August did not show any significant arthritis. SI joint x- ray also unremarkable. Mother has RA. [facility] Medical History Tubular adenoma of colon Delgado esophagus Morbid obesity Hidradenitis suppurativa CAD (coronary artery disease) Subsequent non-ST elevation myocardial infarction (NSTEMI) within 4 weeks of initial infarction Non-ST elevation NJ (NSTEMI) YAMILETH on CPAP Hyperlipidemia PTSD (post-traumatic stress disorder) Fatty liver Smoker Depression Obesity Leukocytosis Frequent UTI Asthma Mass of throat Chronic pain Kidney stone Migraine HTN (hypertension) Surgical History History of esophagogastroduodenoscopy (EGD) H/O excision of mass (06/28/24) Hx of cystoscopy Stented coronary artery History of heart artery stent History of lumpectomy of left breast (10/22/21) History of lithotripsy History of endometrial ablation Hx of colonoscopy History of breast lump/mass excision History of tonsillectomy H/O: hysterectomy Family History Father Hypertension Mother Hypertension Osteoporosis Hx of bilateral cataract extraction Paternal Grandmother Diabetes Sister Asthma Maternal Uncle Throat cancer Maternal Aunt Ovarian cancer Breast cancer Social History Household Members: Family Housing: Apartment Are you a primary daycare teacher to a significant other at home: No Do you presently have visiting nurse or other home services: No Alcohol intake: never Comment: pt refusing alarms Patient Tobacco Use Status: Current everyday Tobacco user Tobacco use type: Cigarette Cigarette Packs Per Day: 0.5 Cigarettes Per Day: 10 Years Smoked: 30 e-Cigarette/Vaping Use: Never Used Second Hand Smoke Exposure: No Advance Directives Date on File: 10/28/22 service: No Current occupational status: unemployed and retired Physical Exam Constitutional: Patient appears to be in no acute distress, well nourished and well developed. Patient was appropriately conversant and oriented. Good historian. MSK: No specific abnormalities found on inspection of the spine and all extremities. Diffuse tenderness over SI, gluteus, GT. Neurological: Nonfocal. Gait is non-antalgic without loss of balance. Results Reviewed Results Reviewed: Discharge summary October 2024: pmhx significant for CAD/NSTEMI with KAMARI in LAD 06/08 and possible NSTEMI 11/07 with normal cardiac cath, YAMILETH on CPAP, morbid obesity, HLD, PTSD, fatty liver disease, mild persistent asthma, kidney stones, migraines, and HTN, who presented to the ED with LLQ/L flank pain starting and chest pain Atypical chest pain with elevated troponin, had a stress test showing Myocardial perfusion imaging study shows mild intensity ischemia mid to distal LAD territory. To continue ASA, metoprolol, lipitor and zetia. Cardiology advises adding Plavix, and Norvasc 5 mg daily. Flank pain secondary to left ureteral calculus, - abdominopelvic CT with 4 mm left ureteral calculus at the level of L5 with mild left hydronephrosis. Multiple additional nonobstructing bilateral renal calculi. pain has resolved, possibly passed. Was seen by Urology and given no pain no intervention Ordering Physician: Heather Aviles Date of Service: 09/17/24 Procedure(s): XR hip RT min 2V Accession Number(s): [id number] cc: Carmen Bertrand DO; Heather Aviles~ CLINICAL HISTORY: M25.551 - Pain in right hip 2 view, pelvis and right hip Comparison: None Findings: No acute fracture or dislocation. No significant arthritic change. The soft tissues are unremarkable. IMPRESSION: No acute findings. This document has been electronically signed by: Mann Garcia MD on 09/17/2024 17:59:52 Ordering Physician: Heather Aviles Date of Service: 09/17/24 Procedure(s): XR sacroiliac joint 1-2V Accession Number(s): [id number] cc: Carmen Bertrand DO; Heather Aviles~ CLINICAL HISTORY: M53.3 - Sacrococcygeal disorders, not elsewhere classified 3 views sacroiliac joints Comparison: None Findings No acute fractures. No significant degenerative change. No erosions. IMPRESSION: No acute findings This document has been electronically signed by: Mann Garcia MD on 09/17/2024 17:59:37 Assessment & Plan Assessment & Plan (1) Bilateral hip pain: Code(s): M25.551 - Pain in right hip; M25.552 - Pain in left hip Category: Medical (2) Pain of both sacroiliac joints: Code(s): M53.3 - Sacrococcygeal disorders, not elsewhere classified Category: Medical (3) Arthralgia of multiple sites, bilateral: Code(s): M25.50 - Pain in unspecified joint Category: Medical Plan Multiple joint pain with positive RF and REBECCA. She has been referred to Rheumatology, with 1st appointment on 04/13. Patient was not aware so we gave her the information of that appointment. If patient would need hip or SI injection, would recommend referral to pain management so it could be done under fluoroscopy or ultrasound guidance. Assessment and plan discussed with patient, and patient was agreeable. All questions were answered thoroughly. Heather Uriarte MD, SADIA Board Certified, [place] [employer] and Rehabilitation (ABPMR) Board Certified, [place] Board of Electrodiagnostic Medicine (ABEM) Coding Level of Care Code Est Pt Level 4 (28847) Diagnoses Bilateral hip pain M25.551; M25.552 Pain of both sacroiliac joints M53.3 Arthralgia of multiple sites, bilateral M25.50
--- OUTSIDE RECORDS SUMMARY | 2025-03-03 11:52 | XMS_ITS | Data Portability ---
Author Organization [employer] [facility], [place] [facility] Address [address] [place] [phone] Care Team Providers Care Manager Local Name Role Phone [facility] OTHER [facility] OTHER Assessment Encounter Date Assessment Date Assessment [...] rapid flu (A+B) 2024 025 [facility], [address] [place] [address], [phone] 5 15:45:24 rapid SARS CoV 2 Ag, QL IA, respiratory specimen [address], [phone] 5 15:45:08 Referral None recorded. Procedures None recorded. Surgeries None recorded. Imaging None recorded. Medication Orders albuterol sulfate 2.5 mg/3 mL (0.083 %) solution for nebulizatio n 2024 025 [facility]/Pharmacy #[id number], [address] [place], [address], 18:27:03 Patient TargetsNo targets recorded. Patient InstructionsNo [...] Name and Address Organization Details Recorded Time 18595 aspirin medicatio n Not available Not available Not available 10/05/2024 1191 RxNorm Not Available [facility] - production 5 13:36:43 33645 penicilli n V Not available Not available Not available Not available 10/05/2024 7984 RxNorm Not Available [facility] - production 5 13:36:43 71369 penicilli n G procaine medicatio n Not available Not available Not available 10/05/2024 7983 RxNorm Not Available [facility] - production 5 13:36:43 35240 penicilli n G benzathin e medicatio n [...] Respiratory rate Body temperature Body weight Systolic And Diastolic Provider Name and Address Organization Details Last Updated DateTime 5 71 /min 92 % 92 % 172.72 cm 18 /min 98.4 [degF] 847219. 272 g 131/78 mm[Hg] Not Available [facility] - production 5 [...] SNOMED-CT Code Diagnosis ICD10 Code Diagnosis Note [id number] Reese Jarvis MD Main - [facility] [address] [place] [phone] 10/05/2024 14:55:01 10/07/2024 08:39:41 Wheezing [id number] R06.2 Health Concerns Section Related Observation LastModified by Organization Detai ls LastModified Time None Recorded Concern Status LastModified by Organization Details LastModified Time None Recorded Advance Directives Directive None Recorded Payers Insurance Date Sequence Insurance Name Policy Number Policy Parra Covered Member ID Parra Member ID Guarantor Name 10/05/2024 1 [facility] - DOS ON OR AFTER 2022 - DUAL ELIGIBLE - [facility] OPTIONS AND ONE CARE (MEDICARE REPLACEMENT/ADV ANTAGE - HMO) Blaire Jean [id number] Blaire Santosrio Jean Notes Date Note Type Note Provider Name and Address Organization Details Recorded Time 10/05/2024 text/html HPI: Call returned to Blaire Jean to triage below. Reports having Headache, Fever, Body Aches, Sore Throat, Runny Nose x 3 days. Per pt seen at [facility] ER on Friday. Per pt seen for CP. Had testing done while in ER. Pt had negative homekit for COVID-19 last night. Reports having SOB with exertion. No wheezing. Pt speaking in clear full sentences. Pt advised of disposition, unable to come into [facility]. Agrees to [facility] for evaluation. Confirmed demographics and allergies. .................. .................. .................. .................. .................. .................. .................. ............... CRC Nurse Triage Notes (Radha Martinez - RN): Chief Complaints: Cough, Fever/chills, Headache, Sore throat, Breathing problems PMH: Hypertension, Asthma, Coronary Artery Disease PMH Reviewed at 10/05/2024 - 13:36 Allergies Reviewed at 10/05/2024 - 13:36 Comments: CRC RN did not require any additional information to process this visit. Medical Billing And Coding Instructor Organization Information for Ankita Castillo Business Legal Name: [employer]. Address: [address] [place] [id number], Panel Gluer: Marino Dow MD CLIA No.: [id number] Medical Billing And Coding Instructor POC Test Results from Ankita Castillo Rapid COVID antigen (14:56:21) COVID: - Rapid influenza antigen (14:56:24) Flu: - Rapid strep test (14:56:25) Strep: - .................. .................. .................. .................. .................. .................. .................. ............... Medical Billing And Coding Instructor Note From Ankita Castillo: Sent to a call for a pt complaining of URI symptoms. SC8 arrives on scene, pt is alert and oriented, airway is patent. Pt complains of URI symptoms since Friday. Pt states she had chest tightness Friday-Friday, but was evaluated at [facility] ED on Friday. Pt states she [...] administered; Lung sounds: clear bilaterally; SpO2:98% RA; [facility] and sends script to pt's pharmacy for Albuterol neb solutions. Red flags discussed. Pt has no further questions. .................. .................. .................. .................. .................. .................. .................. ............... [facility] Consulted: Reese Jarvis .................. .................. .................. .................. .................. .................. .................. ............... Disposition: Fulfilled Reese Jarvis MD [address] [facility],[address], [place], [phone], [employer]NADINE SIMENTAL 10/06/2024 15:39:31 OBGyn Episode No OBEpisode recorded.
--- OUTSIDE RECORDS SUMMARY | 2025-03-03 11:52 | XMS_ITS | Encounter Summary ---
Author Organization [employer] [facility] Address [address] [place] [address] [address] [place] [address] Care Team Providers Care Subsurface Augmentee Operator Name Role Phone Carmen Bertrand DO Primary Care Provider + [phone] Encounter Details Date Type Department Care Team (Late st Contact Info) Description 09/09/2022 Orders Only [facility] MEDICINE [address] [place] [id number] Azul Albrecht LPN Social History Tobacco Use [...] Care Team (Late st Contact Info) Description 03/07/2025 10:15 AM EDT Office Visit [facility] [address] [place] [id number] Carmen Bertrand DO [address] [place] [phone] 06/01/2025 2:00 PM EDT Clinical Support [address] [address] Jessica Conway RN documented as of this encounter Visit Diagnoses Not on filedocumented in this encounter Care Teams Subsurface Augmentee Operator Relationship Specialty Start Date End Date Carmen Bertrand DO [address] [place] [phone] PCP - General Family Medicine 08/18/18 documented as of this encounter
== END 2025-03-03 11:46 | disposition home or self-care (01) ==
LOC: HO.HOS 11:02
PROVIDERS: PCP Family Medicine; Visit Provider Physical Medicine & Rehabilitation
DX: M25.551 Pain in right hip (principal); M25.552 Pain in left hip; M53.3 Sacrococcygeal disorders, not elsewhere classified; M25.50 Pain in unspecified joint
CPT/HCPCS: 99214

== ENCOUNTER → 2025-03-03 11:02 | Outpatient (BNVA) | payer OTHER, SELFPAY ==
[2025-01-27 10:17] VITALS: BP 128/72; BP 140/60; BP 148/88; BMI 63.7
== END ==
PROVIDERS: PCP Family Medicine; Visit Provider Physical Medicine & Rehabilitation
DX: M25.551 Pain in right hip (principal); M25.552 Pain in left hip; M53.3 Sacrococcygeal disorders, not elsewhere classified; M25.50 Pain in unspecified joint
CPT/HCPCS: 99212

== ENCOUNTER 2025-04-05 04:14 | Emergency (ER) | payer OTHER, SELFPAY ==
[2025-01-27 10:17] VITALS: BP 128/72; BP 140/60; BP 148/88; BMI 63.7
[2025-04-05] VITALS (7 sets, daily range): BP systolic 114–145; BP diastolic 60–87; PULSE 56–82; RESP 15–20; TEMP -17.7–36.7; O2SAT 93–97; BMI 55.1
--- NOTE | 2025-04-05 | ECG_ITS ---
Test Reason : chest pain Blood Pressure : */* mmHG Vent. Rate : 77 BPM Atrial Rate : 77 BPM P-R Int : 196 ms QRS Dur : 74 ms QT Int : 390 ms P-R-T Axes : 51 15 25 degrees QTcB Int : 441 ms Normal sinus rhythm Normal ECG When compared with ECG of 25-Nov-2024 19:01, No significant change was found Referred By: Generic ED Physician Electronically Signed By: MARLENE BAUER MD
--- NOTE | ~2025-04-05 | XR_ITS ---
CLINICAL HISTORY: chest pain 2 view chest x-ray Comparison: None provided Findings: The lungs are clear. Heart size is normal. No acute fracture. IMPRESSION: 1. No acute findings. This document has been electronically signed by: Loren Rosales MD on 04/05/2025 06:17:20
[2025-04-05 04:38] LABS: Hematocrit 38.1 % (37.0-47.0); Hemoglobin 12.9 g/dl (12.0-16.0); Imm Gran Abs Auto 0.05 X10*3/uL (0.00-0.03); Imm Gran Pct Auto 0.4 % (0.0-0.4); Lymphocytes Absolute Auto 3.8 X10*3/uL (1.2-4.9); MANUAL DIFF FLAG NO; Mean Corpuscular HGB Conc 33.9 g/dl (31.0-35.0); Mean Corpuscular Hemoglobin 31.7 pg (27.0-33.0); Mean Corpuscular Volume 93.6 fL (80.0-98.0); NRBC Abs Auto 0.000 X10*3/uL (0.0-0.012); NRBC Pct Auto 0.0 /100WBC (0.0-0.2); Platelet Count 288 X10*3/uL (160-400); Red Blood Count 4.07 X10*6/uL (4.20-5.50); White Blood Count 11.6 X10*3/uL (4.8-10.8)
[2025-04-05 04:54] LABS: Alanine Aminotransferase 14 U/L (0-31); Albumin Level 3.8 g/dL (3.5-5.0); Alkaline Phosphatase 105 U/L (39-117); Anion Gap 14 (12-20); Aspartate Amino Transferase 22 U/L (5-31); Blood Urea Nitrogen 16 mg/dL (9-16); Calcium 9.0 mg/dL (8.4-10.2); Carbon Dioxide 22 mmol/L (22-29); Chloride 109 mmol/L (96-108); Creatinine Clr Calc Pharmacy 120.4; Estimated Glomerular Filt Rate > 60; Potassium 3.6 mmol/L (3.3-5.1); Sodium 141 mmol/L (135-145); Total Protein 7.1 g/dL (6.5-8.0)
--- NOTE | 2025-04-05 05:03 | PC.NURSE ---
Addendum entered by Brigida Casarez RN 04/05/25 05:07: Dr Wills made aware Original Note: pt came in through waiting room with high blood pressure and right arm pain since 330. took nitro sublingual tab, b/p 121/60 here in ED. pt still in pain on right arm. Accompanied by her son. pt has history of strokes.
[2025-04-05 05:04] LABS: Troponin-I High Sensitivity < 2.7 ng/L (<3.5-17.0)
--- NOTE | 2025-04-05 07:41 | PC.NURSE ---
Assumed care of patient. Pt is A+Ox4, ambulates with a cane at home sometimes per patient. Pt is calm, cooperative. Pt sts hx 3 heart attacks with stents, took a nitro at home when SBP >200. Pt also c/o L shoulder pain and headache. RR even and unlabored, denies CP or SOB. Lung sounds clear bilat.
--- NOTE | 2025-04-05 09:10 | ED.GENADULT ---
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 Patient reports that she woke up around 150 this morning with left arm pain and left facial pain. Upon further questioning she reports that she also had the left-sided chest pain Her pain was at worst 8/10, stabbing and radiating She took 1 dose of nitro but felt that it did not help. She states that due to her pain she checked her blood pressure and it was ?218/94 at home. She denies any fevers, chills Denies any shortness of breath, abdominal pain, nausea vomiting. Denies any back pain Denies any leg pain or weakness At the time my evaluation about 7.5 hours after symptom onset she reports her pain has resolved Related Data Home Medications ?Medication ?Instructions ?Recorded ?Confirmed albuterol sulfate 90 mcg/actuation 2 puff PO Q4-6H PRN Wheezing 12/01/20 03/03/25 aerosol inhaler (Ventolin HFA) fluticasone propionate 50 2 spray intranasal DAILY 12/01/20 03/03/25 mcg/actuation nasal spray,suspension blood pressure test kit-large #1 ea 12/19/20 03/03/25 topiramate 50 mg tablet 50 mg PO BID 12/19/20 03/03/25 cholecalciferol (vitamin D3) 50 50 mcg PO DAILY 03/13/22 03/03/25 mcg (2,000 unit) capsule metformin 500 mg tablet,extended 500 mg PO DAILY@1700 07/01/22 03/03/25 release 24 hr metoprolol succinate 50 mg 50 mg PO DAILY 07/01/22 03/03/25 tablet,extended release 24 hr tramadol 50 mg tablet 50 mg PO Q8H PRN severe pain 10/24/22 03/03/25 metronidazole 0.75 % topical gel 1 appl topical DAILY PRN Rash 10/25/22 03/03/25 albuterol sulfate 2.5 mg/3 mL 2.5 mg inhalation Q4-6H PRN 11/15/22 03/03/25 (0.083 %) solution for nebulization Wheezing fluticasone propionate 110 2 puff inhalation BID 11/13/23 03/03/25 mcg/actuation HFA aerosol inhaler benzoyl peroxide 10 % topical 1 appl topical DAILY 11/08/24 03/03/25 cleanser econazole nitrate 1 % topical cream 1 appl topical BID 11/08/24 03/03/25 emtricitabine 200 mg-tenofovir 1 tab PO DAILY 11/08/24 03/03/25 disoproxil fumarate 300 mg tablet hydroquinone 4 % topical cream 1 appl topical BID 11/08/24 03/03/25 nitroglycerin 0.4 mg sublingual 0.4 mg sublingual Q5M PRN Chest 12/13/24 03/03/25 tablet Pain clopidogrel 75 mg tablet 75 mg PO DAILY 01/12/25 03/03/25 tirzepatide (weight loss) 5 mg/0.5 mg subcut QWEEK 02/03/25 03/03/25 mL subcutaneous pen injector (Zepbound) Previous Rx's ?Medication ?Instructions ?Recorded isosorbide mononitrate 60 mg 60 mg PO DAILY #30 tabs 02/12/24 tablet,extended release 24 hr amlodipine 5 mg tablet (Norvasc) 5 mg PO DAILY #90 tabs 11/09/24 hydrochlorothiazide 12.5 mg tablet 12.5 mg PO DAILY #90 tabs 11/19/24 aspirin 81 mg tablet,delayed 81 mg PO DAILY #90 tabs 12/13/24 release atorvastatin 80 mg tablet (Lipitor) 80 mg PO BEDTIME #90 tabs 12/13/24 ezetimibe 10 mg tablet 10 mg PO DAILY #90 tabs 12/13/24 lisinopril 20 mg tablet 20 mg PO DAILY #90 tabs 12/13/24 allopurinol 100 mg tablet 100 mg PO DAILY 90 days #90 tabs 12/20/24 famotidine 40 mg tablet 40 mg PO BEDTIME PRN heartburn #90 01/27/25 tabs pantoprazole 20 mg tablet,delayed 20 mg PO DAILY #90 tabs 01/27/25 release doxycycline hyclate 100 mg tablet 100 mg PO BID #14 tabs 02/03/25 pyridoxine (vitamin B6) 100 mg 100 mg PO DAILY 90 days #90 tabs 02/07/25 tablet Allergies Allergy/AdvReac Type Severity Reaction Status Date / Time penicillin G (PENICILLIN G) Allergy Severe DIFFICULTY Verified 04/05/25 04:18 BREATHING semaglutide (From Ozempic) AdvReac Severe Stomach Verified 04/05/25 04:18 Upset Review of Systems Constitutional: Constitutional: Denies body ache(s), Denies chills, Denies fever(s) and Reports headache(s) Eyes: Eyes: Denies blurry vision ENT: Denies vertigo, Denies dizziness, Denies dry mouth and Reports headache(s) Cardiovascular: Cardiovascular: Reports chest pain, Reports chest pain at rest and Denies dyspnea on exertion Respiratory: Respiratory: Denies cough and Denies dyspnea on exertion Gastrointestinal: Gastrointestinal: Denies abdominal pain Musculoskeletal: Musculoskeletal: Denies back pain, Reports arthralgias, Denies joint swelling and Denies limited range of motion Integumentary/Breasts: Skin/Breast: Denies rash Neurologic: Denies vertigo, Denies dizziness and Reports headache(s) [facility] Past Medical History Medical History Tubular adenoma of colon Delgado esophagus Morbid obesity Hidradenitis suppurativa CAD (coronary artery disease) Subsequent non-ST elevation myocardial infarction (NSTEMI) within 4 weeks of initial infarction Non-ST elevation [place] (NSTEMI) YAMILETH on CPAP Hyperlipidemia PTSD (post-traumatic stress disorder) Fatty liver Smoker Depression Obesity Leukocytosis Frequent UTI Asthma Mass of throat Chronic pain Kidney stone Migraine HTN (hypertension) Surgical History History of esophagogastroduodenoscopy (EGD) H/O excision of mass (06/28/24) Hx of cystoscopy Stented coronary artery History of heart artery stent History of lumpectomy of left breast (10/22/21) History of lithotripsy History of endometrial ablation Hx of colonoscopy History of breast lump/mass excision History of tonsillectomy H/O: hysterectomy Family History Family History Father Hypertension Mother Hypertension Osteoporosis Hx of bilateral cataract extraction Paternal Grandmother Diabetes Sister Asthma Maternal Uncle Throat cancer Maternal Aunt Ovarian cancer Breast cancer Social History Social History Household Members: Family Housing: Apartment Are you a primary patient centered care specialist to a significant other at home: No Do you presently have visiting nurse or other home services: No Alcohol intake: never Comment: pt refusing alarms Patient Tobacco Use Status: Current everyday Tobacco user Tobacco use type: Cigarette Cigarette Packs Per Day: 0.5 Cigarettes Per Day: 10 Years Smoked: 30 e-Cigarette/Vaping Use: Never Used Second Hand Smoke Exposure: No Advance Directives: Yes Advance Directives on File: Yes Advance Directives Date on File: 10/28/22 Do you have a plan to hurt others: No Plan service: No Current occupational status: unemployed and retired Physical Exam ED Vital Signs: Vital Signs - 24 hr 04/05/25 04:17 04/05/25 04:28 04/05/25 05:43 Temperature 97.2 F 98.1 F Pulse Rate 82 79 68 Respiratory Rate 20 18 Blood Pressure 145/87 H 121/60 122/66 Pulse Oximetry 97 93 Oxygen Delivery Method Room Air Room Air 04/05/25 07:34 04/05/25 07:37 Temperature 97.7 F Pulse Rate 67 64 Respiratory Rate 16 15 Blood Pressure 114/67 Pulse Oximetry 97 95 Oxygen Delivery Method Room Air Room Air BMI result Body Mass Index 55.1 Const General: healthy appearing, comfortable, no acute distress, alert and awake Nutritional Appearance: well nourished Orientation/consciousness: patient oriented x3 HENMT Head: Yes normocephalic and Yes atraumatic Eyes Eyelids: Yes eyelids normal Conjunctivae: conjunctivae normal Sclerae: sclerae normal Corneas: corneas normal Pupils: Equal, round and reactive pupils present EOM: EOMs intact bilaterally Neck Neck: Yes full ROM Resp Effort & Inspection: normal respiratory effort, able to speak in complete sentences and not labored Cardio Rate: regular rate Rhythm: regular rhythm GI Inspection: No distended Palpation (GI): Soft to palpation, not firm, nontender, no guarding and not rigid Skin General skin exam: elasticity normal Neuro General: patient oriented x3 Cranial nerves: Yes CN's II-XII intact bilaterally, Yes Equal, round and reactive pupils present and Yes Bilaterally intact EOM present Cognition (Neuro): normal cognition Extrem Other: Moving all extremities well without any obvious deformities Medical Decision Making Medical Decision Making [facility] Narrative: 50-year-old female with a past medical history as above presents for evaluation of left-sided arm pain and left-sided headache that woke her up from sleep. She reports her blood pressure was elevated but this was not replicated in the ER. Her blood pressure initially slightly elevated to 145/87 on arrival but this improved to 121/60 rather quickly. There was no intervention in the emergency department. The patient remains asymptomatic, has an NIH stroke score of 0, no neurologic deficits. EKG is nonischemic, troponin negative x2. I have a low suspicion for CVA or TIA, I have a low suspicion for ACS and she rules out due to negative tropes time to a nonischemic EKG. Her pain may be muscular in origin. I have a low suspicion for aortic dissection as her blood pressure is not significantly elevated and she is currently asymptomatic. Plan to discharge and have the patient follow up with her PCP Differential Diagnosis Differential Diagnoses: The differential diagnosis associated with the presentation includes Acute headache Tension headache ACS CVA Aortic dissection Admission/Observation Consideration of admission/observation: Escalation of care including admission/observation considered Lab Data [facility] Lab Attestation statement: I reviewed the patient's lab results. Mild leukocytosis to 11.6 without a significant left shift. Allergy. No significant anemia. Normal platelet count. Chemistries unremarkable, no significant electrolyte abnormalities. Troponin negative x2, renal function within normal limits. 04/05/25 04:34 04/05/25 04:34 Labs: Lab Results 04/05/25 04/05/25 Range/Units 04:34 09:42 WBC 11.6 H (4.8-10.8) X10*3/uL RBC 4.07 L (4.20-5.50) X10*6/uL Hgb 12.9 (12.0-16.0) g/dl Hct 38.1 (37.0-47.0) % MCV 93.6 (80.0-98.0) fL MCH 31.7 (27.0-33.0) pg MCHC 33.9 (31.0-35.0) g/dl RDW 13.5 (11.0-16.0) % Plt Count 288 (160-400) X10*3/uL MPV 9.5 (9.4-12.3) fL Immature Gran % (Auto) 0.4 (0.0-0.4) % Neut % (Auto) 55.7 (45-73) % Lymph % (Auto) 32.7 (20-40) % [place] % (Auto) 8.2 (2-11) % Eos % (Auto) 2.2 (0-4) % Baso % (Auto) 0.8 (0-2) % Lymph # (Auto) 3.8 (1.2-4.9) X10*3/uL [place] # (Auto) 1.0 (0.1-1.2) X10*3/uL Eos # (Auto) 0.3 (0.0-0.4) X10*3/uL Baso # (Auto) 0.1 (0.0-0.2) X10*3/uL Abs Immat Gran (auto) 0.05 H (0.00-0.03) X10*3/uL Absolute Neuts (auto) 6.5 (2.0-8.3) x10*3/uL Absolute Nucleated RBC 0.000 (0.0-0.012) X10*3/uL Nucleated RBC % (auto) 0.0 (0.0-0.2) /100WBC Sodium 141 (135-145) mmol/L Potassium 3.6 (3.3-5.1) mmol/L Chloride 109 H (96-108) mmol/L Carbon Dioxide 22 (22-29) mmol/L Anion Gap 14 (12-20) BUN 16 (9-16) mg/dL Creatinine 0.87 (0.5-1.4) mg/dL Estim Creat Clear Calc 120.4 Estimated GFR > 60 Fasting Glucose 100 H (60-99) mg/dL Calcium 9.0 (8.4-10.2) mg/dL Total Bilirubin 0.4 (0.0-1.0) mg/dL AST 22 (5-31) U/L ALT 14 (0-31) U/L Alkaline Phosphatase 105 (39-117) U/L Troponin I High Sens < 2.7 < 2.7 (<3.5-17.0) ng/L Total Protein 7.1 (6.5-8.0) g/dL Albumin 3.8 (3.5-5.0) g/dL Independent Interpretation I performed an independent interpretation of an: EKG (Normal sinus rhythm with a rate of 77 beats minute. No acute ischemic changes when compared to November 25, 2024.) and Plain X-Ray Interpretation: No focal infiltrate Radiology Impression Discussion of test interpretation with radiology: I have reviewed the radiologist's reading. Radiologist Impression: Findings: The lungs are clear. Heart size is normal. No acute fracture. IMPRESSION: 1. No acute findings. This document has been electronically signed by: Loren Rosales MD on 04/05/2025 06:17:20 Discharge Plan Discharge Clinical Impression: Chest pain Patient Disposition: Home, Self-Care Instructions: Chest Pain (ED) Additional Instructions: Your workup in the emergency room today was reassuring. Your blood pressure was stable in the ER. You may need to get your home blood pressure cuff calibrated has your blood pressure was not significantly elevated There is no evidence to suggest that you had a heart attack. You may use Tylenol as needed for your pain. Follow-up with your primary doctor, return for new or worsening symptoms Prescriptions: No Action hydrochlorothiazide 12.5 mg tablet 12.5 mg PO DAILY Qty: 90 4RF allopurinol 100 mg tablet 100 mg PO DAILY 90 Days Qty: 90 1RF albuterol sulfate [Ventolin HFA] 90 mcg/actuation HFA aerosol inhaler 2 puff PO Q4-6H PRN (Reason: Wheezing) fluticasone propionate 50 mcg/actuation spray,suspension 2 spray intranasal DAILY metformin 500 mg tablet extended release 24 hr 500 mg PO DAILY@1700 metronidazole 0.75 % gel 1 appl topical DAILY PRN (Reason: Rash) clopidogrel 75 mg tablet 75 mg PO DAILY hydroquinone 4 % cream 1 appl topical BID benzoyl peroxide 10 % cleanser 1 appl topical DAILY emtricitabine-tenofovir (TDF) 200-300 mg tablet 1 tab PO DAILY econazole nitrate 1 % cream 1 appl topical BID amlodipine [Norvasc] 5 mg tablet 5 mg PO DAILY Qty: 90 0RF topiramate 50 mg tablet 50 mg PO BID (DME) blood pressure test kit-large Kit See Rx Instructions .ROUTE DIRECTED Qty: 1 Rx Instructions: As directed tramadol 50 mg tablet 50 mg PO Q8H PRN (Reason: severe pain) cholecalciferol (vitamin D3) 50 mcg (2,000 unit) capsule 50 mcg PO DAILY metoprolol succinate 50 mg tablet extended release 24 hr 50 mg PO DAILY fluticasone propionate 110 mcg/actuation HFA aerosol inhaler 2 puff inhalation BID nitroglycerin 0.4 mg tablet, sublingual 0.4 mg sublingual Q5M PRN (Reason: Chest Pain) Rx Instructions: do not exceed 3 doses per episode atorvastatin [Lipitor] 80 mg tablet 80 mg PO BEDTIME Qty: 90 3RF ezetimibe 10 mg tablet 10 mg PO DAILY Qty: 90 3RF aspirin 81 mg tablet,delayed release (DR/EC) 81 mg PO DAILY Qty: 90 3RF lisinopril 20 mg tablet 20 mg PO DAILY Qty: 90 3RF Rx Instructions: dose reduced pyridoxine (vitamin B6) 100 mg tablet 100 mg PO DAILY 90 Days Qty: 90 3RF pantoprazole 20 mg tablet,delayed release (DR/EC) 20 mg PO DAILY Qty: 90 1RF Rx Instructions: take one tablet daily. Best taken 30 minutes before a meal famotidine 40 mg tablet 40 mg PO BEDTIME PRN (Reason: heartburn) Qty: 90 0RF Rx Instructions: Take one tablet as needed at bedtime for breakthrough heartburn albuterol sulfate 2.5 mg /3 mL (0.083 %) solution for nebulization 2.5 mg inhalation Q4-6H PRN (Reason: Wheezing) isosorbide mononitrate 60 mg tablet extended release 24 hr 60 mg PO DAILY Qty: 30 5RF Rx Instructions: Dose increased Zepbound 5 mg/0.5 mL pen injector subcut QWEEK doxycycline hyclate 100 mg tablet 100 mg PO BID Qty: 14 0RF Print Language: Yoruba
[2025-04-05 10:12] LABS: Troponin-I High Sensitivity < 2.7 ng/L (<3.5-17.0)
== END 2025-04-05 11:30 | disposition home or self-care (01) ==
PROVIDERS: Physician Assistant; Emergency Provider Emergency Medicine; PCP Family Medicine
DX: R07.9 Chest pain, unspecified (principal); M79.602 Pain in left arm; I10 Essential (primary) hypertension; E11.9 Type 2 diabetes mellitus without complications; I25.10 Atherosclerotic heart disease of native coronary artery without angina pectoris; R51.9 Headache, unspecified
CPT/HCPCS: 36415; 71046; 80053; 84484; 85025; 93005; 99283; 99285

== ENCOUNTER → 2025-04-05 04:34 | Outpatient (BNV) | payer OTHER, SELFPAY ==
[2025-01-27 10:17] VITALS: BP 128/72; BP 140/60; BP 148/88; BMI 63.7
== END ==
PROVIDERS: Emergency Provider Emergency Medicine; PCP Family Medicine; Visit Provider Internal Medicine Cardiovascular Disease
DX: R07.89 Other chest pain (principal)
CPT/HCPCS: 93010

== ENCOUNTER → 2025-04-05 05:10 | Outpatient (BNV) | payer OTHER, SELFPAY ==
[2025-01-27 10:17] VITALS: BP 128/72; BP 140/60; BP 148/88; BMI 63.7
== END ==
PROVIDERS: PCP Family Medicine; Visit Provider Radiology Diagnostic Radiology
DX: R07.9 Chest pain, unspecified (principal)
CPT/HCPCS: 71046

== ENCOUNTER 2025-04-13 10:57 | Outpatient (AMB) | payer OTHER, SELFPAY ==
[2022-10-22 13:00] VITALS: BP 128/72; BP 148/88; BMI 63.7
[2025-01-27 10:17] VITALS: BP 128/72; BP 140/60; BP 148/88; BMI 63.7
--- NOTE | 2025-04-13 11:09 | A.OFFVIS_ITS ---
Vital Signs 04/13/25 11:20 Height 5 ft 8 in Weight 335 lb 12.224 oz BMI 51.0 BP 124/80 Blood Pressure Location Lt radial Position Sitting Pulse 74 Pulse Source Pulse Oximeter Pulse Oximetry (%) 98 Oxygen Delivery Method Room Air Intake Visit Reasons: osteoarthritis/New Patient Intake Note: New patient presents for Osteoarthritis. Patient c/o neck pain, bilateral shoulder pain, mid back pain, bilateral wrist pain, bilateral hand pain, bilateral hip pain, bilateral knee pain and RT foot. Patient has been feeling pain in these parts for three years. Patient takes Tramadol for pain. Compound Filler Required: Yes Compound Filler Language: Stable Helper Services: Compound Filler Present Compound Filler Name: Justin [id number] Information Interpreted: non-clinical & clinical Allergies penicillin G (PENICILLIN G) Allergy (Severe, Verified 04/13/25 11:17) DIFFICULTY BREATHING semaglutide (From Ozempic) Adverse Reaction (Severe, Verified 04/13/25 11:17) Stomach Upset Medication List - Last Reconciled 04/13/25 by Sonia Campos MD albuterol sulfate 90 mcg/actuation (Ventolin HFA) 2 puffs PO Q4-6H PRN albuterol sulfate 2.5 mg inhalation Q4-6H PRN allopurinol 100 mg PO DAILY 90 days amlodipine (Norvasc) 5 mg PO DAILY aspirin 81 mg PO DAILY atorvastatin (Lipitor) 80 mg PO BEDTIME benzoyl peroxide 10% 1 appl topical DAILY blood pressure test kit-large As directed cholecalciferol (vitamin D3) 50 mcg PO DAILY clopidogrel 75 mg PO DAILY doxycycline hyclate 100 mg PO BID econazole nitrate 1% 1 appl topical BID emtricitabine-tenofovir (TDF) 200-300 mg 1 tab PO DAILY ezetimibe 10 mg PO DAILY famotidine 40 mg PO BEDTIME PRN fluticasone propionate 50 mcg/actuation 2 sprays intranasal DAILY fluticasone propionate 110 mcg/actuation 2 puffs inhalation BID hydrochlorothiazide 12.5 mg PO DAILY hydroquinone 4% 1 appl topical BID isosorbide mononitrate ER 60 mg PO DAILY lisinopril 20 mg PO DAILY metformin ER 500 mg PO DAILY@1700 metoprolol succinate ER 50 mg PO DAILY metronidazole 0.75% 1 appl topical DAILY PRN nitroglycerin 0.4 mg sublingual Q5M PRN pantoprazole 20 mg PO DAILY pyridoxine (vitamin B6) 100 mg PO DAILY 90 days tirzepatide (weight loss) (Zepbound) mg subcut QWEEK topiramate 50 mg PO BID tramadol 50 mg PO Q8H PRN HPI Comments Details: Patient is a 50-year-old female hypertension, hyperlipidemia c/b CAD, HIV on ARVs, hidradenitis suppurativa, diabetes complicated by gastroparesis, GERD complicated by Delgado's esophagus, polyarticular osteoarthritis here today for evaluation of positive RF in the setting of polyarthralgias Patient has been having polyarthralgias for several years and has been evaluated by ortho of the departments. Denies prolonged morning stiffness or joint swelling No known family history of rheumatoid arthritis Currently complaining of knee pain, which she throughout got steroid injections a few weeks ago and this is improved, shoulder pain and hip pain PFS Medical History (Updated 04/13/25 @ 14:16 by Sonia Campos MD) Polyarticular osteoarthritis Tubular adenoma of colon Delgado esophagus Morbid obesity Hidradenitis suppurativa CAD (coronary artery disease) Subsequent non-ST elevation myocardial infarction (NSTEMI) within 4 weeks of initial infarction Non-ST elevation RI (NSTEMI) YAMILETH on CPAP Hyperlipidemia PTSD (post-traumatic stress disorder) Fatty liver Smoker Depression Obesity Leukocytosis Frequent UTI Asthma Mass of throat Chronic pain Kidney stone Migraine HTN (hypertension) Surgical History History of esophagogastroduodenoscopy (EGD) H/O excision of mass (06/28/24) Hx of cystoscopy Stented coronary artery History of heart artery stent History of lumpectomy of left breast (10/22/21) History of lithotripsy History of endometrial ablation Hx of colonoscopy History of breast lump/mass excision History of tonsillectomy H/O: hysterectomy Family History Father Hypertension Mother Hypertension Osteoporosis Hx of bilateral cataract extraction Paternal Grandmother Diabetes Sister Asthma Maternal Uncle Throat cancer Maternal Aunt Ovarian cancer Breast cancer Social History Household Members: Family Housing: Apartment Are you a primary animal caretaker to a significant other at home: No Do you presently have visiting nurse or other home services: No Alcohol intake: never Comment: pt refusing alarms Patient Tobacco Use Status: Current everyday Tobacco user Tobacco use type: Cigarette Cigarette Packs Per Day: 0.5 Cigarettes Per Day: 10 Years Smoked: 30 e-Cigarette/Vaping Use: Never Used Second Hand Smoke Exposure: No Advance Directives Date on File: 10/28/22 service: No Current occupational status: unemployed and retired Review of Systems Const Details: Review of Systems Constitutional: Denies fever, chills, weight loss ENT: Denies vision changes, eye pain or eye redness, dental caries, dry mouth GI: Denies nausea, vomiting, diarrhea, abdominal pain, change in BM Pulm: Denies SOB, MENARD, hemoptysis, wheezing Cards: Denies chest pain, palpitations Skin: Denies Raynaud's, rash, nail changes, photosensitivity, SERVICE CREW SUPERVISOR: Denies headaches, weakness, paresthesias, recurrent falls MSK: as per HPI All other systems reviewed and are unremarkable except noted above Physical Exam Exam Exam: Vital signs reviewed Physical Examination CONSTITUITIONAL Patient alert and cooperative. Well appearing and in no apparent painful distress MSK Hands * Right Hand: Able to make a fist. No swelling or tenderness to palpation of the MCPs, PIPs or DIPs. * Left Hand: Able to make a fist. No swelling or tenderness to palpation of the MCPs, PIPs or DIPs. * Herbedens nodes noted bilaterally Wrists * Right Wrist: Full ROM to flexion and extension. No swelling or TTP * Left Wrist: Full ROM to flexion and extension. No swelling or TTP Elbows * Right Elbow: Full ROM. No swelling or TTP. No TTP of the medial epicondyle. No TTP of the lateral epicondyle * Left Elbow: Full ROM. No swelling or TTP. No TTP of the medial epicondyle. No TTP of the lateral epicondyle Shoulders * Right shoulder: Decreased ROM. No swelling noted. TTP of the AC joint and subacromial bursa. No TTP of the posterior shoulder * Left shoulder: Decreased ROM. No swelling noted. No TTP of the AC joint. No TTP of the subacromial bursa. No TTP of the posterior shoulder Hip bursa: No tenderness to palpation bilaterally Knees * Right knee: Full ROM. No swelling noted. No TTP of the knee joint line. No TTP of pes anserine bursa * Left knee: Full ROM. No swelling noted. No TTP of the knee joint line. No TTP of pes anserine bursa. * Crepitations felt bilaterally Ankles * Right ankle: Good ankle dorsiflexion and plantar flexion. No swelling. No TTP of the ankle joint * Left ankle: Good ankle dorsiflexion and plantar flexion. No swelling. No TTP of the ankle joint Feet * Right foot: Negative squeeze test * Left foot: Negative squeeze test Vital Signs: Last Vital Signs Pulse 74 04/13/25 11:20 BP 124/80 04/13/25 11:20 Pulse Ox 98 04/13/25 11:20 Oxygen Delivery Method Room Air 04/13/25 11:20 BMI result Body Mass Index 51.0 Office Procedures AMB Joint Injection/Aspiration Joint Injection/Aspiration Details: Procedure was explained to the patient and informed consent was obtained. ? Risks associated with the procedure were discussed with the patient including but not limited to bleeding, infection, drug reactions and reactions to the topical anesthetic. Patient made aware of signs to look out for infectious complications. The area of interest was identified and confirmed with patient. ?This was subsequently cleaned with chlorhexidine x 2. ? The area was then anesthetized using ethyl chloride spray. 40 mg Kenalog with 1 cc 1% lidocaine was injected without issue. ?Minimal to no bleeding. ?Patient tolerated procedure. Primary Site: right shoulder Prep: site was prepped using aseptic technique and ethochloride spray was applied Injected: 40 mg of, Kenalog, with 1 mL of and 1% plain lidocaine Procedure: The patient tolerated the procedure well Coding 35659 - Acromioclavicular Procedure code (CPT) selection complete Office Meds lidocaine (PF) 10 mg/mL (1 %) injection solution Performing Provider: Sonia Campos MD Performing Location: [facility] Administered by: Alan Ramos RN on 04/13/25 12:01 Dose Route Admin Location Dispensed Lot Number Expiration Date [facility] Floral Merchandiser 1 mL Infiltration right AC joint 2 mL [id number] 12/15/26 64480-968-9 4 [id number] Total Dispensed Waste 2 mL 50 % Kenalog 40 mg/mL suspension for injection Performing Provider: Sonia Campos MD Performing Location: [facility] Administered by: Alan Ramos RN on 04/13/25 12:01 Dose Route Admin Location Dispensed Lot Number Expiration Date [employer] Flor[employer] Merchandiser 40 mg intra-articular right AC joint 1 mL [id number] 04/17/27 0003-02 93-05 [facility] Total Dispensed Waste 1 mL 0 % Results Reviewed Results Reviewed: Laboratory Tests 04/05/25 04:34 WBC 11.6 H RBC 4.07 L Hgb 12.9 Hct 38.1 Plt Count 288 Sodium 141 Potassium 3.6 Chloride 109 H Carbon Dioxide 22 BUN 16 Creatinine 0.87 AST 22 ALT 14 Laboratory Tests 09/17/24 11:45 Rheumatoid Factor 28.2 H REBECCA Screen POSITIVE A REBECCA Titer 1:40 H REBECCA Pattern Nuclear, Speckled A XR Bilateral Knees 12/2024 FINDINGS: Standing AP views of both knees and additional lateral and sunrise patellar views of the bilateral knees are submitted. Osseous mineralization is normal. There is no fracture or dislocation. There is severe osteoarthritis of the medial compartments of both knees with joint space narrowing and osteophyte formation. Findings have progressed on the right. Mild degenerative changes are noted involving the lateral and patellofemoral compartments of both knees. The soft tissues are unremarkable. There is no joint effusion. IMPRESSION: Osteoarthritis of the bilateral knees as described, findings have progressed on the right. Assessment & Plan Assessment & Plan (1) Polyarticular osteoarthritis: Code(s): M15.9 - Polyosteoarthritis, unspecified Category: Medical Plan: #Polyarticular OA Patient is a 50-year-old female here today for evaluation of polyarthralgias in the setting of positive rheumatoid factor. History and exam is consistent with polyarticular osteoarthritis with no evidence of synovitis, prolonged morning stiffness or any other findings concerning for rheumatoid arthritis. Discuss this with the patient. I explained that osteoarthritis is a degenerative joint disease with no cure. She has been receiving knee injections from other providers which has been helpful and she is requesting a shoulder as well as hip injections. She was given a right AC joint injection today and she will be scheduled for ultrasound- guided hip injections Plan - s/p Right AC joint steroid injection - US guided right hip steroid injection - RTC 6 months (2) Rheumatoid factor positive: Code(s): R76.8 - Other specified abnormal immunological findings in serum Plan: #Positive Rheumatoid factor The presence of a positive rheumatoid factor is can be associated with autoimmune diseases such as rheumatoid arthritis, Sjogren's, mixed connective tissue disease and lupus. However, a positive rheumatoid factor can be found in other non autoimmune conditions/situations such as chronic infections with HIV, hepatitis-B, C, tuberculosis and endocarditis; cancers including leukemia, multiple myeloma and primary sclerosing cholangitis; parasitic infections; patient is with history/current use of cigarettes; and healthy individuals.?In healthy individuals, the frequency of positive rheumatoid factor has been shown to be 1-5% At this time there is low suspicion for rheumatoid arthritis. An HIV-positive person may have a positive result for Rheumatoid Factor (RF) and Anti-CCP antibodies (anti-cyclic citrullinated peptide antibodies), though usually at low titers, because HIV can induce these autoantibodies Plan - Check CCP, hepatitis panel, TB, SPEP and immunofixation - Check CBC, CMP, ESR, CRP 1. Ish V, Ed JS, Tammy MJ. Rheumatoid Factor. 2022Mar 10. PMID: [id number]. 2. Antwon BM, Markel LM, Marilynn GS, Demetrice IP, Eva MV. HIV/AIDS and rheumatoid arthritis. Autoimmun Rev. PMID: [id number]. Plan I spent 30 minutes reviewing the record and labs, taking a history, examining the patient, discussing the treatment plan, ordering diagnostic work up and documenting in the medical record Orders: Orders AMB Joint Injection/Aspiration Today M19.019 - Primary osteoarthritis, unspecified shoulder Cyclic Citrullinated Peptide Today R76.8 - Other specified abnormal immunological findings in serum T Spot TB Today R76.8 - Other specified abnormal immunological findings in serum Immunoglobulins,IgG IgA IgM Today R76.8 - Other specified abnormal immunological findings in serum Protein Electrophoresis, Serum Today R76.8 - Other specified abnormal immunological findings in serum Erythrocyte Sedimentation Rate Today R76.8 - Other specified abnormal immunological findings in serum US Gd Asp Inj Intmd Joint RT Today M16.11 - Unilateral primary osteoarthritis, right hip Hepatitis A,B,C Profile Today R76.8 - Other specified abnormal immunological findings in serum Immunofixation Pnl, Serum Today R76.8 - Other specified abnormal immunological findings in serum C Reactive Protein Today R76.8 - Other specified abnormal immunological findings in serum Coding Level of Care Code New Pt Level 3 (02569) Diagnoses Polyarticular osteoarthritis M15.9 Rheumatoid factor positive R76.8 CPT Codes Coding - Joint 5: 43016 - Acromioclavicundr ([id number])
[2025-04-13 11:20] VITALS: BP 124/80; PULSE 74; O2SAT 98; BMI 51.0
--- OUTSIDE RECORDS SUMMARY | 2025-04-13 11:50 | XMS_ITS | Encounter Summary ---
Author Organization [facility] Address [address] [place] [address] [address] [place] [address] Care Team Providers Care Building Maintenance Mechanic Name Role Phone Carmen Bertrand DO Primary Care Provider [phone] Encounter Details Date Type Department Care Team (Late st Contact Info) Description 09/09/2022 Orders Only [facility] [address] [place] [id number] Azul Albrecht LPN Social History Tobacco Use [...] Care Team (Late st Contact Info) Description 06/01/2025 2:00 PM EDT Clinical Support [facility] [address] [place] [phone] Jessica Conway, RN documented as of this encounter Visit Diagnoses Not on filedocumented in this encounter Care Teams Building Maintenance Mechanic Relationship Specialty Start Date End Date Carmen Bertrand DO [address] [place] [id number] PCP - General Family Medicine 08/18/18 documented as of this encounter
--- OUTSIDE RECORDS SUMMARY | 2025-04-13 11:50 | XMS_ITS | Encounter Summary ---
Author Organization [facility] Address [address] [facility] [address] [place] [address] Care Team Providers Care Retail Selling Specialist Name Role Phone Carmen Bertrand DO Primary Care Provider [phone] Encounter Details Date Type Department Care Team (Late st Contact Info) Description 09/09/2022 Orders Only [facility] [address] [place] [address] Carmen Perez LPN Social History Tobacco Use [...] Description 06/01/2025 2:00 PM EDT Clinical Support [facility] [address] [place] [address] Jessica Conway RN documented as of this encounter Visit Diagnoses Not on filedocumented in this encounter Care Teams Retail Selling Specialist Relationship Specialty Start Date End Date Carmen Bertrand DO [address] [place] [address] PCP - General Family Medicine 08/18/18 documented as of this encounter
--- OUTSIDE RECORDS SUMMARY | 2025-04-13 11:50 | XMS_ITS | Encounter Summary ---
Author Organization [email or web address] [facility] Address [address] [place] [address] Care Team Providers Care Fire Prevention Officer Name Role Phone Carmen Bertrand DO Primary Care Provider + [phone] Reason for Visit * Reason Comments Med Refill Encounter Details Date Type Department Care Team ([facility] Contact Info) Description 04/04/2025 Refill [facility] [address] [place], [place] [phone] Carmen Bertrand DO [address] [place] [address] Hypertension, unspecified type; Chronic low back pain, unspecified back pain [...] housing situation today? I have pravin amin 02/24/[address] you li ve. Do you have problems with any of the following? None of the above 02/24/2025 Food Insecurity Answer Date Recorded Within the past 12 months, y ou worried that your food would run out before you got money to buy more: Never True 02/24/2025 Within the past 12 months,th e food you bought just didn't last and you didn't have enough money to get more: Never True 05/2025 Transportation Answer Date Recorded In the past [...] Description 06/01/2025 2:00 PM EDT Clinical Support [facility] [address] [place] [address] Jessica Conway RN documented as of this encounter Visit Diagnoses Diagnosis Hypertension, unspecified type Chronic low back pain, unspecified back pain laterality, unspecified whether sciatica present documented in this encounter Additional Health Concerns Assessment Noted Time PHQ-9 Depression Total Score: 22 024 11:00 AM EDT documented as of this encounter Care Teams Fire Prevention Officer Relationship Specialty Start Date End Date Carmen Bertrand DO [address] [place] [address] PCP - General Family Medicine 08/18/18 documented as of this encounter
--- OUTSIDE RECORDS SUMMARY | 2025-04-13 11:51 | XMS_ITS | Encounter Summary ---
Author Organization [facility] [facility] Address [address] [place] [address] Care Team Providers Care Concrete Analyst Name Role Phone Carmen Bertrand DO Primary Care Provider + [phone] Reason for Visit * Reason Comments Med Refill Encounter Details Date Type Department Care Team ([facility] Contact Info) Description 07/22/2023 Refill [facility]S [address] [place], [place] [phone] Carmen Bertrand DO [address] [place] [address] Hyperlipidemia, unspecified hyperlipidemia type Social History Tobacco [...] 2:00 PM EDT Clinical Support [facility] [address] [place] [address] Jessica Conway RN documented as of this encounter Visit Diagnoses Diagnosis Hyperlipidemia, unspecified hyperlipidemia type documented in this encounter Additional Health Concerns Assessment Noted Time PHQ-9 Depression Total Score: 21 023 11:26 AM EST documented as of this encounter Care Teams Concrete Analyst Relationship Specialty Start Date End Date Carmen Bertrand DO [address] [place] [address] PCP - General Family Medicine 08/18/18 documented as of this encounter
--- OUTSIDE RECORDS SUMMARY | 2025-04-13 11:51 | XMS_ITS | Clinical Summary ---
Author Organization [employer] Address [address] [facility] [address] [place] [address] Care Team Providers Care Chief Nuclear Medicine Technologist Name Role Phone Carmen Bertrand DO Primary Care Provider + [phone] Allergies Active Allergy Reactions Criticality Noted Date [...] 8 oz of water. 168 capsule Active isosorbide mononitrate ER (Imdur) 60 MG [...] 2025 Active ergocalciferol (Vitamin D2) 1.25 MG (71448 UT) capsule Take 1 capsule (1.25 mg) by mouth 1 (one) time per week. 12 capsule 025 Active econazole nitrate 1 % cream APPLY TOPICALLY TO AFFECTED AREA(S) TWICE DAILY DIRECTED 85 g 1 025 Active atorvastatin (Lipitor) 80 MG tablet TAKE 1 TABLET BY MOUTH EVERY DAY 90 tablet 3 025 Active albuterol (Ventolin HFA) 108 (90 Base) MCG/ACT inhalerIndication s:Mild persistent asthma without complication INHALE 2 PUFFS BY MOUTH EVERY 4 TO 6 HOURS NEEDED 18 g 025 Active topiramate 50 MG tabletIndications :Nonintractable headache, unspecified chronicity pattern, unspecified headache type TAKE 1 TABLET BY MOUTH TWICE DAILY 60 tablet 5 025 Active emtricitabine-ten ofovir DF (Truvada) 200-300 [...] by mouth Once per day. 025 Active hydroquinone 4 % creamIndications: Acanthosis nigricans APPLY TOPICALLY TWICE DAILY 28.35 g 1 025 Active famotidine (Pepcid) 40 MG tablet TAKE 1 TABLET BY MOUTH EVERY DAY AT BEDTIME NEEDED FOR HEARTBURN 30 tablet 3 025 Active albuterol (2.5 MG/3ML) 0.083% nebulizer solutionIndicatio ns:Mild persistent asthma without complication INHALE 1 TO 2 AMPULE USING A NEBULIZER EVERY 4 TO 6 HOURS NEEDED FOR COUGH, WHEEZING, OR SHORTNESS OF BREATH 90 mL 3 025 Active senna-docusate (Senokot S) 8.6-50 MG tablet Take 1 tablet by mouth Once per day. 30 tablet 025 2025 Active metroNIDAZOLE (Metrogel) 0.75 % gelIndications:Me lasma APPLY TOPICALLY TO THE AFFECTED AREA(S) ON THE FACE DAILY NEEDED 45 g 1 025 Active senna (Senokot) 8.6 MG tablet TAKE 1 TABLET BY MOUTH EVERY DAY 90 tablet 025 Active Tirzepatide (Mounjaro) 10 MG/0.5ML solution auto-injectorIndi cations:Morbid obesity with BMI of 50.0-59.9, adult ([facility]) Inject 10 mg under the skin 1 (one) time per week. 2 mL 3 025 Active nitroglycerin (Nitrostat) 0.[address] 1 tablet (0.4 mg) under the tongue every 5 (five) minutes if needed for chest pain. X 3 doses. Call 911 if chest pain does not resolve 30 tablet 025 2025 Active fluticasone (Flonase) 50 MCG/ACT nasal spray INSTILL 2 SPRAYS IN EACH NOSTRIL ONCE DAILY 48 g 3 025 Active D3 Super Strength 50 MCG (2000 UT) capsule TAKE 1 CAPSULE BY MOUTH EVERY DAY 90 capsule 3 025 Active fluticasone (Flovent) 110 MCG/ACT inhaler INHALE 2 PUFFS TWICE DAILY IN THE MORNING AND AT BEDTIME. RINSE MOUTH AFTER USING. DO NOT SWALLOW. 12 g 11 025 Active metoprolol succinate XL (Toprol-XL) 50 MG 24 hr tabletIndications :Hypertension, unspecified type TAKE 1 TABLET BY MOUTH EVERY DAY 90 tablet 1 025 Active traMADol (Ultram) 50 MG tabletIndications :Chronic low back pain, unspecified back pain laterality, unspecified whether sciatica present TAKE 1 TABLET BY MOUTH EVERY 8 HOURS NEEDED FOR SEVERE PAIN FOR UP TO 28 DAYS 84 tablet 025 2024 Active D3 Super Strength 50 MCG (2000 UT) capsule TAKE 1 CAPSULE BY MOUTH ONCE DAILY 90 capsule 3 024 2024 Discontinued fluticasone (Flonase) 50 MCG/ACT nasal spray INSTILL 2 SPRAYS IN EACH NOSTRIL ONCE DAILY 48 g 3 024 2024 Discontinued fluticasone (Flovent) 110 MCG/ACT inhaler INHALE 2 PUFFS TWICE DAILY IN THE MORNING AND AT BEDTIME. RINSE MOUTH AFTER USING. DO NOT SWALLOW. 12 g 11 024 2024 Discontinued(R eorder (will not trigger notification to Pharmacy)) metoprolol succinate XL (Toprol-XL) 50 MG 24 hr tabletIndications :Hypertension, unspecified type TAKE 1 TABLET BY MOUTH EVERY DAY 90 tablet 1 025 2024 Discontinued(R eorder (will not trigger notification to Pharmacy)) nitroglycerin (Nitrostat) 0.[address] 1 tablet (0.4 mg) under the tongue every 5 (five) minutes if needed for chest pain. X 3 doses. Call 911 if chest pain does not resolve 30 tablet 025 2024 Discontinued(R eorder (will not trigger notification to Pharmacy)) Tirzepatide-Weigh t Management (Zepbound) 7.5 MG/0.5ML solution auto-injector Inject 0.5 mL (7.5 mg) under the skin 1 (one) time per week for 28 days. 2 mL 1 025 2024 traMADol (Ultram) 50 MG tabletIndications :Chronic low back pain, unspecified back pain laterality, unspecified whether sciatica present TAKE 1 TABLET BY MOUTH EVERY 8 HOURS NEEDED FOR SEVERE PAIN FOR UP TO 28 DAYS 84 tablet 025 2024 Discontinued mupirocin (Bactroban) 2 % ointment Apply topically 3 times daily for 10 days. 22 g 025 2024 Active Problems Problem Noted Date Diagnosed Date Long-term current use of opiate analgesic 2024 Slow transit constipation 02/14/2025 Assessment & Plan (02/25/2025 3:10 PM EDT): Unclear if related to dietary modifications after colonoscopy + ? Zepbound is a competent Start Senokot and increase water intake, hold off on Zepbound until she has daily BM Dermoid cyst of head 12/29/2024 Assessment & [...] Melasma 02/21/2023 Nephrolithiasis 09/19/2022 Fatty liver 09/19/2022 Prediabetes 09/19/2022 Tobacco dependence 09/19/2022 History of non-ST elevation myocardial infarctio n (NSTEMI) 09/19/2022 Chronic migraine 09/19/2022 Hyperlipidemia 09/19/2022 Class 3 severe obesity due t o excess calories with serious comorbidity and body mass index (BMI) of 50.0 to 59.9 in adult 09/19/2022 Assessment & Plan (02/14/2025 4:49 PM EDT): Patient has lost significant amount of weight on both of t Ozempic and Zepbound, he seems to have tolerated 5 mg Zepbound well. Increase Zepbound to 7.5 mg, hold for constipation or severe diarrhea. Follow-up with PCP Microscopic hematuria 09/09/2022 Essential hypertension 06/05/2015 Mild [...] Encounters Date Type Department Care Team Description 04/11/2025 Refill [facility] [address] [place] [address] Carmen Bertrand DO Chronic low back pain, unspecified back pain laterality, unspecified whether sciatica present 04/05/2025 Orders Only GENERIC EXTERNAL DATA DEPARTMENT Provider, Generic External Data 04/04/2025 Refill [facility] MED[facility] [address] [place] [address] Carmen Bertrand DO Hypertension, unspecified type; Chronic low back pain, unspecified back pain laterality, unspecified whether sciatica present 04/04/2025 Refill [facility] PEDS [address] [place], [place] [phone] Ирина Mckeon MD Hypertension, unspecified type 03/25/2025 Telephone [facility] MED[facility] [address] [place] [address] Carmen Bertrand DO chartprep 03/18/2025 11:30 AM EDT Office Visit [facility] [address] [place] [address] Carmen Bertrand DO Morbid obesity with BMI of 50.0-59.9, adult (CMS/HCC) (Primary Dx) 03/18/2025 Travel 03/17/2025 Telephone [facility] [address] [place] [address] Carmen Bertrand DO Chart Prep 03/14/2025 Refill [facility] [address] Carmen Bertrand DO Chronic low back pain, unspecified back pain laterality, unspecified whether sciatica present 03/14/2025 Refill [facility] [place] [address] Frances Austin MD 03/08/2025 Travel 02/28/2025 10:00 AM EDT Clinical Support [facility] BHAVIN Aponte [phone] Jessica Conway, RULA Long-term current use of opiate analgesic (Primary Dx) 02/28/2025 Telephone [facility] BHAVIN Aponte [phone] Jessica Conway RN SERVICE COORDINATOR [facility] Agreement renewed today 02/28/2025 Travel 02/25/2025 Telephone [facility] [place] [address] Carmen Bertrand DO Chart Prep 02/24/2025 Patient Outreach [facility] [place] [address] Carmen Bertrand DO Pre-visit Planning (SDOH screening negative and tobacco screening positive) 02/21/2025 Travel 02/21/2025 Telephone [facility] [place] [address] Carmen Bertrand DO Appointment Request 02/18/2025 Refill [facility] [place] [address] Carmen Bertrand DO Melasma 02/17/2025 Telephone [facility] [place] [address] Carmen Bertrand DO Durable Medical Equipment ([facility] ONE Care: Air Conditioner) 02/14/2025 3:30 PM EDT Office Visit [facility] [place] [address] Frances Austin MD Slow transit constipation (Primary Dx); Class 3 severe obesity due to excess calories with serious comorbidity and body mass index (BMI) of 50.0 to 59.9 in adult; Dietary counseling; Exercise counseling 02/14/2025 Travel 02/07/2025 Refill [facility] [address] [facility] [place] [address] Carmen Bretrand, Chronic low back pain, unspecified back pain laterality, unspecified whether sciatica present 02/04/2025 Refill [facility] [address] [facility] [place] [address] Carmen Bertrand, Chronic low back pain, unspecified back pain laterality, unspecified whether sciatica present 02/04/2025 Telephone [facility] [address] [place] [address] Carmen Bertrand, Call Back Request 01/26/2025 Refill [facility] [address] [place] [address] Carmen Bertrand, 01/17/2025 Telephone [facility] [address] [place] [address] Carmen Bertrand, Appointment Request 01/13/2025 Orders Only GENERIC EXTERNAL DATA DEPARTMENT Provider, Generic External Data 01/11/2025 Telephone [facility] [address] [place] [address] Carmen Bertrand, telephone call 01/11/2025 Refill [facility] [address] [place] [address] Carmen Bertrand, Chronic low back pain, unspecified back pain laterality, unspecified whether sciatica present from Last 3 Months Immunizations Immunization Administration [...] Sign Reading Time Taken Comments Blood Pressure 128/80 03/18/2025 12:00 PM EDT Pulse 75 03/18/2025 12:00 PM EDT Temperature 37.1 C (98.7 F) 03/18/2025 12:00 PM EDT Respiratory Rate 20 03/18/2025 12:00 PM EDT Oxygen Saturation 99% 03/18/2025 12:00 PM EDT Inhaled Oxygen Concentration - - Weight 154 kg (340 lb) 03/18/2025 12:00 PM EDT Height 170.2 cm (5' 7 ) 03/18/2025 12:00 PM EDT Body Mass Index 53.25 03/18/2025 12:00 PM EDT Plan of Treatment Upcoming Encounters Date Type Department Care Team (Late st Contact Info) Description 06/01/2025 2:00 PM EDT Clinical Support [facility] [address] [place] [phone] Jessica Conway, RN Health Maintenance Due Date Last Done Comments CT Colonography 1975 Colonoscopy 1975 FIT 1975 FOBT 1975 Sigmoidoscopy 1975 Family Planning (PISQ) 1991 Hepatitis A Vaccines (1 of 2 - Risk 2-dose series) 1995 COVID-19 Vaccine ( season) 2024 06/07/2021, 01/29/2021 Depression Monitoring 03/27/2025 09/27/2024, 024 Influenza Vaccine (#1) 2025 , 05/07/2022, 05/07/2022, Additional history exists Diabetes: Hemoglobin A1C 08/24/2025 025, 04/27/2024, 04/27/2024, Additional history exists Alcohol/Substance Use Screening 09/27/2025 09/27/2024 Disability Screening 11/30/2025 11/30/2024 SDOH Screening 02/24/2026 02/24/2025 Tobacco Screening 03/18/2026 03/18/2025 Zoster Vaccines (1 of 2) 2026 Mammogram [...] Years) and At-Risk Patients (6 to 49) Years Completed 02/21/2023, 06/13/2011 Hepatitis C Screening Completed 04/27/2024 , 02/21/2023, 05/14/2022, Additional history exists HIB Vaccines Aged Out [...] Diagnosis Comments HIGH SENSITIVITY TROPONIN I Routine 04/05/2025 9:42 AM EDT XR CHEST 2 VIEWS Routine 04/05/2025 6:17 AM EDT HIGH SENSITIVITY TROPONIN I Routine 04/05/2025 4:34 AM EDT COMPREHENSIVE METABOLIC PANEL, FASTING Routine 04/05/2025 4:34 AM EDT CBC WITH AUTO DIFFERENTIAL Routine 04/05/2025 4:34 AM EDT POCT ANALISA-14 URINE DRUG SCREEN Routine 02/28/2025 9:19 AM EDT Long-term current use of opiate analgesic HEMATOXYLIN AND EOSIN STAIN Routine 01/13/2025 8:34 AM EDT GLUCOSE, WHOLE BLOOD Routine 01/13/2025 7:14 AM EDT LAB COLOGUARD COLON CANCER SCREEN Routine 08/31/2024 10:33 AM [...] of left foot Healthcare maintenance HIV ANTIBODY/ANTIGEN ([facility]) Routine 02/21/2023 2:35 PM EDT from Last 3 Months or Most Recently Relevant to Health Maintenance Results * High Sensitivity Troponin I (04/05/2025 9:42 AM EDT) Only the most recent of2 resultswithin the time period is included. TROPONIN I HIGH SENSITIVITY <2.7 <3.5 - 17.0 ng/L [facility] Comment:The [place] high sens itivity Troponin-I results should beused in conjunction with other diagnostic information suchas ECG, clinical observations and information, and patientsymptoms to aid in the diagnosis of UT. 04/05/2025 9:42 AM EDT 04/05/2025 9:44 AM EDT us Generic External Data Provider LAB BLOOD ORDERAB LES Final Result [facility] [address] [place] [phone] * XR Chest 2 Views (04/05/2025 6:17 AM EDT) Anatomical Region Laterality Modality Chest Radiographic Alejandrina ging 04/05/2025 6:17 AM EDT Narrative 04/05/2025 6:19 AM EDT [address] [address] XRay Report Signed Patient: Blaire Quiroz MR#: [id number] : 1975 Acct:[id number] Age/Sex: 50 / F ADM Date: 04/05/25 Loc: HO.ED Attending Dr: Ordering Physician: Generic ED Physician Date of Service: 04/05/25 Procedure(s): XR chest 2V Accession Number(s): [id number] cc: Generic ED Physician; Carmen Bertrand DO CLINICAL HISTORY: chest pain 2 view chest x-ray Comparison: None provided Findings: The lungs are clear. Heart size is normal. No acute fracture. IMPRESSION: 1. No acute findings. This document has been electronically signed by: Loren Rosales MD on 04/05/2025 06:17:20 Dictated By: Loren Rosales MD Signed By: <Electronically signed by Loren Rosales MD in OV> 04/05/25617 DD/ 6 TD/TT: 04/05/25616 Chief Resource Officer: Procedure Note Donotuseinterpreter, Image - 04/05/[address] [address] XRay Report Signed Patient: Blaire QuirozMR#: [id number] : 1975Acct:[id number] Age/Sex: 50 / FADM Date: 04/05/25 Loc: HO.ED Attending Dr: Ordering Physician: Generic ED Physician Date of Service: 04/05/25 Procedure(s): XR chest 2V Accession Number(s): [id number] cc: Generic ED Physician; Carmen Bertrand DO CLINICAL HISTORY: chest pain 2 view chest x-ray Comparison: None provided Findings: The lungs are clear. Heart size is normal. No acute fracture. IMPRESSION: 1. No acute findings. This document has been electronically signed by: Loren Rosales MD on 04/05/2025 06:17:20 Dictated By: Loren Rosales MD Signed By: <Electronically signed by Loren Rosales MD in OV> 04/05/25617 DD/ 6 TD/TT: 04/05/25616 Chief Resource Officer: us [facility] External Provider IMG XR PROCEDURES Edited Result - Final * (ABNORMAL) Comprehensive Metabolic Panel, Fasting (04/05/2025 4:34 AM EDT) Sodium 141 135 - 145 mmol/L [facility] Potassium 3.6 3.3 - 5.1 mmol/L [facility] Chloride 109(H) 96 - 108 mmol/L [facility] Carbon Dioxide 22 22 - 29 mmol/L [facility] Anion Gap 14 12 - 20 [facility] Urea Nitrogen (BUN) 16 9 - 16 mg/dL [facility] Creatinine, Serum 0.87 0.5 - 1.4 mg/dL [facility] Creatinine Clr Calc Pharmacy 120.4 [facility] Comment:Provided height and weight: 167.64 cm,154.8 kg.eGFR (calculated from the MDRD study equation) and eCrCl(calculated from the Cockcroft-Gault equation) are based ondifferent parameters and may not yield comparable results.If eCrCl result is absurd, please check patient'sheight/weight. Estimated Glomerular Filt Rate >60 [facility] Comment:Chronic Kidney Disea se: Estimated GFR < 60 mL/min/[id number] Kidney Disease: Estimated GFR < 15 mL/min/1.73m2 Glucose Fasting 100(H) 60 - 99 mg/dL [facility] Comment:A fasting glucose fr om 100-125 mg/dl is considered impaired(pre-diabetes). Calcium 9.0 8.4 - 10.2 mg/dL [facility] Bilirubin, Total 0.4 0.0 - 1.0 mg/dL [facility] Aspartate Amino Transferase 22 5 - 31 U/L [facility] Alanine Aminotransferase 14 0 - 31 U/L [facility] Total Protein 7.1 6.5 - 8.0 g/dL [facility] Albumin Level 3.8 3.5 - 5.0 g/dL [facility] Alkaline Phosphatase 105 39 - 117 U/L [facility] 04/05/2025 4:34 AM EDT 04/05/2025 4:36 AM EDT us Generic External Data Provider LAB BLOOD ORDERAB LES Final Result [facility] [address] [place], [place] [phone] * (ABNORMAL) CBC auto differential (04/05/2025 4:34 AM EDT) White Blood Count 11.6(H) 4.8 - 10.8 X10*3/uL [facility] Red Blood Count 4.07(L) 4.20 - 5.50 X10*6/uL [facility] Hemoglobin 12.9 12.0 - 16.0 g/dl [facility] Hematocrit 38.1 37.0 - 47.0 % [facility] Mean Corpuscular Volume 93.6 80.0 - 98.0 fL [facility] Mean Corpuscular Hemoglobin 31.7 27.0 - 33.0 pg [facility] Mean Corpuscular HGB Conc 33.9 31.0 - 35.0 g/dl [facility] Red Cell Distribution Width 13.5 11.0 - 16.0 % [facility] Platelet Count 288 160 - 400 X10*3/uL [facility] Mean Platelet Volume 9.5 9.4 - 12.3 fL [facility] Neutrophils Percent Auto 55.7 45 - 73 % [facility] Imm Gran Pct Auto 0.4 0.0 - 0.4 % [facility] Lymphocytes Percent Auto 32.7 20 - 40 % [facility] Monocytes Percent Auto 8.2 2 - 11 % [facility] Eosinophils Percent Auto 2.2 0 - 4 % [facility] Basophils Percent Auto 0.8 0 - 2 % [facility] NRBC Pct Auto 0.0 0.0 - 0.2 /100WBC [facility] Neutrophils Absolute Auto 6.5 2.0 - 8.3 x10*3/uL [facility] Imm Gran Abs Auto 0.05(H) 0.00 - 0.03 X10*3/uL [facility] Lymphocytes Absolute Auto 3.8 1.2 - 4.9 X10*3/uL [facility] Monocytes Absolute Auto 1.0 0.1 - 1.2 X10*3/uL [facility] Eosinophils Absolute Auto 0.3 0.0 - 0.4 X10*3/uL [facility] Basophils Absolute Auto 0.1 0.0 - 0.2 X10*3/uL [facility] NRBC Abs Auto 0.000 0.0 - 0.012 X10*3/uL [facility] 04/05/2025 4:34 AM EDT 04/05/2025 4:36 AM EDT us Generic External Data Provider LAB BLOOD ORDERAB LES Final Result [facility] [address] [place] [phone] * POCT ANALISA-14 Urine Drug Screen (02/28/2025 9:19 AM EDT) THC Negative Negative Cocaine Screen, Urine Negative Negative Opiate Screen, Urine Negative Negative Methamphetamine Screen Urine Negative Negative Amphetamine Screen, Urine Negative Negative Benzodiazepines Screen, Urine Negative Negative Barbiturate Screen, Urine Negative Negative Methadone Screen, Urine Negative Negative Buprenophine Screen, Urine Negative Negative TCA, Urine Negative Negative MDMA Urine Negative Negative ng/mL Oxycodone Screen, Urine Negative Negative Phencyclidine (PCP), Urine Negative Negative Propoxyphene, Urine Negative Negative Fentanyl, Urine Negative Negative Urine Urine specimen obtained by clean catch procedure / Unknown 02/28/2025 9:19 AM EDT Jessica Perez, RN - 02/28/2025 9:19 AM EDT UTOX cup Lot#[id number] Exp. 05/24/26 Internal Pass Control Carmen Bertrand DO POINT OF CARE TEST ENTER/LANEY T ORDERABLES Final Result * Hematoxylin and Eosin Stain (01/13/2025 8:34 AM EDT) 01/13/2025 8:34 AM EDT 01/13/2025 10:10 AM EDT Adriana [facility] - 01/17/2025 5:45 PM EDT ----- ------- Name: Blaire Quiroz Age/Sex: 49/F : 1975 Unit#: [id number] Attend Dr: Alejandra Pope MD Re01/13/25 [place] [facility] Location: [facility] Disch: ----- ------- SPEC : [id number] RECD: 01/13/25 STATUS: CARLTON FRAGOSO NUM: [id number] FRANCISCO JAVIER: 01/13/25 [facility] DR: Alejandra oPpe MD ENTERED: 01/13/25 SP TYPE: Surgical OTHR DR: Carmen Bertrand DO ORDERED: HE Stain/30, Gross Micro L4/10, IHC, Special st. 2/3, H. pylori, AB/PAS/3 Diagnosis A. Duodenum, biopsy: Chronic inactive duodenitis. B. Stomach, biopsy: Antral-type and oxyntic mucosa with moderate chronic inactive inflammation; no Helicobacter organisms seen. C. 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 - No dysplasia seen. - Squamous epithelium within normal limits. D. Esophagus, distal, biopsy: Active esophagitis (maximum eosinophil count 1 per high powered field). E. Esophagus, proximal, biopsy: Squamous epithelium within normal limits; no inflammation seen. F. Colon, transverse, polypectomy: Tubular adenoma; negative for high-grade dysplasia or carcinoma. G. Colon, ascending, polypectomies: Fragments of tubular adenomata; negative for high- grade dysplasia or carcinoma. H. Terminal ileum, biopsy: Terminal ileal mucosa within normal limits. I. Colon, right, biopsy: Colonic mucosa within normal limits. J. Colon, descending, polypectomy: Hyperplastic mucosal polyp. Clinical History Pre-Op Dx: Nausea with vomiting Post-Op Dx: Gastritis, erosive esophagitis, duodenitis, colon polyps, internal hemorrhoids Microscopic Description A-J. Microscopic sections examined. Intestinal metaplasia is seen in C, foveolar metaplasia in A and no metaplastic changes are seen in B, supported by AB/PAS stains; no Helicobacter organisms are seen, supported by H. pylori immunostain (B). CONTINUED ON NEXT PAGE ----- ------- Name: Maria Luisa LiurahulBlaire Age/Sex: 49[facility] 1975 [id number] Unit#: [id number] Attend Dr: Alejandra Pope MD Re01/13/25 Status: [facility] Location: [facility] Disch: ----- ------- SPEC : [id number] RECD: 01/13/25 STATUS: CARLTON FRAGOSO NUM: [id number] FRANCISCO JAVIER: 01/13/25 [facility] DR: Alejandra Pope MD ENTERED: 01/13/25 SP TYPE: Surgical OTHR DR: Carmen Bertrand DO ORDERED: HE Stain, Gross Micro L4/10, IHC, Special st. 2, H. pylori, AB/PAS/3 Material Received A. Duodenum bx B. Stomach bx C. GE junction bx D. Distal esophagus bx E. Proximal esophagus bx F. Transverse colon polyp G. Ascending colon polyps H. TI bx's I. Right sided colon bx's J. Descending colon polyp Gross Description Received in ten parts. Part A: Received in formalin labeled duodenum bx is a 0.3 cm abernathy rectangular tissue fragment, submitted in toto in a cassette labeled A. Part B: Received in formalin labeled stomach bx are three abernathy irregular tissue fragments ranging from 0.15-0.25 cm, submitted in toto in a cassette labeled B. Part C: Received in formalin labeled GE junction bx are three barajas-abernathy irregular tissue fragments ranging from minute to 0.15 cm, submitted in toto in a cassette labeled C. Part D: Received in formalin labeled distal esophagus bx are two barajas-white irregular and rectangular tissue fragments measuring 0.25 and 0.3 cm, submitted in toto in a cassette labeled D. Part E: Received in formalin labeled proximal esophagus bx are three barajas-white irregular and rectangular tissue fragments ranging from 0.15 to 0.3 cm, submitted in toto in a cassette labeled E. Part F: Received in formalin labeled transverse colon polyp is a 1.3 x 0.3 x 0.15 cm abernathy rectangular-papular tissue fragment, submitted in toto in a cassette labeled F. Part G: Received in formalin labeled ascending colon polyps are five abernathy-pink papular tissue fragments ranging from 0.25-0.3 cm, submitted in toto in a cassette labeled G. Part H: Received in formalin labeled TI bx's are two abernathy-pink irregular tissue fragments each measuring 0.25 cm, submitted in toto in a cassette labeled H. Part I: Received in formalin labeled right sided colon bx's are two abernathy-pink irregular CONTINUED ON NEXT PAGE ----- ------- Name: Maria Luisa JeanBlaire Age/Sex: 49/F : 1975 Unit#: [id number] Attend Dr: Alejandra Pope MD Re01/13/25 Status: [facility] Location: [facility] Disch: ----- ------- SPEC : [id number] RECD: 01/13/25 STATUS: CARLTON FRAGOSO NUM: [id number] FRANCISCO JAVIER: 01/13/25 [facility] DR: Alejandra Pope MD ENTERED: 01/13/25 SP TYPE: Surgical OTHR DR: Carmen Bertrand DO ORDERED: HE Stain/, Gross Micro L4/10, IHC, Special st. 2/, H. pylori, AB/PAS/3 Gross Description (Continued) tissue fragments measuring 0.15 and 0.2 cm, submitted in toto in a cassette labeled I. Part J: Received in formalin labeled descending colon polyp is a 1.0 x 1.0 x 0.25 cm aggregate of abernathy-yellow mucus and debris and a few minute to 0.2 cm abernathy-pink papular tissue fragments, submitted in toto in a cassette labeled Reena ARELLANO Special studies ordered and performed: Immunostain for H. pylori on B; AB/PAS stains on A, B and C IHC S/NG Disclaimer NOTE: Unless otherwise stated, all tissue is formalin-fixed and paraffin-embedded. Some or all of the immunohistochemical tests reported herein may have been developed and their performance characteristics determined by [facility]. They have not been cleared or approved by the U.S. Food and Drug Administration (FDA). However, the FDA has determined that such clearance or approval is not necessary. This laboratory is certified under the Clinical Laboratory Improvement Amendments of 1988 (CLIA) as qualified to perform high complexity clinical laboratory testing. Copies To: Alejandra Pope MD [facility] [address] [place] [address] [phone] Carmen Bertrand DO [address] [address] ----- ------- Signed (signature on file) Dean Thomas MD 01/17/25 5254 ----- ------- END OF REPORT us Generic External Data Provider LAB BLOOD ORDERAB LES Final Result [facility] [address] [place] [phone] * Glucose, Whole Blood (01/13/2025 7:14 AM EDT) Glucose, Whole Blood 96 60 - 115 mg/dL [facility] Comment:METER #: [id number] 01/13/2025 7:14 AM EDT 01/13/2025 7:23 AM EDT us Generic External Data Provider LAB BLOOD ORDERAB LES Final Result [facility] [address] [place] [phone] [phone] * (ABNORMAL) Cologuard?? colon cancer screening (08/31/2024 10:33 AM EST) Cologuard Result Positive( A) Negative 09/07/2024 10:16 AM EST [facility] (CLIA #:[id number]) Comment: POSITIVE TEST RESULT. A positive Cologuard result should be followed with a colonoscopy or visual examination of the colon. The normal value (reference range) for this assay is negative. TEST DESCRIPTION: Composite algorithmic analysis of stool DNA-biomarkers with hemoglobin immunoassay. Quantitative values of individual biomarkers are not [...] (Ashleigh Zhou al, N Engl J Med 2014;370(14):1290-5827.) Cologuard may produce a false negative or false positive result (no colorectal cancer or precancerous polyp present at colonoscopy follow up). A negative Cologuard test result does not guarantee the absence of CRC or advanced adenoma (pre-cancer). The current Cologuard screening interval is every 3 years. ([place] [employer] Society and U.S. Multi-Society Task Force). Cologuard performance data in a 10,000 patient pivotal study using colonoscopy as the reference method can be accessed at the following location: www.AppMakr.com/results. Additional description of the Cologuard test process, warnings and precautions can be found at [email or web address]. Stool specimen (specimen) 08/31/2024 10:33 AM EST 09/01/2024 11:06 AM EST Carmen Bertrand DO LAB MOLECULAR DIAGNOSTICS OR DERABLES Final Result [facility] (CLIA #:[id number]) [place] [address], * Hemoglobin A1c (08/24/2024 11:57 AM EST) Hemoglobin A1c 6.0 <6.0 % [facility] Comment:Hemoglobin A1C Refer ence Range Adults: 4.8 - 6.0 % Non diabetic: < 6.0 % Goal: < 7.0 %Additional Action Suggested: > 8.0 %Note: Hemoglobin A1c results are invalid for patients with abnormal amounts of HbF. Blood transfusions may impact the HbA1c concentration in the patient sample. Estimated Average Glucose 126 mg/dL [facility] Comment:eAG = Estimated ave rage glucose which is %A1C expressed asaverage glucose, using the formula of the Y9J-BiwyfqxAapjxum Glucose study (ADAG), Diabetes Care, Vol.31,#8,Mar. 2007 Blood Venous blood specimen / Unknown 08/24/2024 11:57 AM EST 08/24/2024 1:03 PM EST Carmen Elza DO LAB BLOOD ORDERABLES Final R esult Performing Organization Address City/[facility]/ZIP Co de Phone Number [facility] [address] [place] [phone] * (ABNORMAL) Lipid Panel, Standard (08/24/2024 11:57 AM EST) Triglycerides 82 <150 mg/dL [facility] Comment:Desirable Triglyceri de: less than 150 mg/dLBorderline High Triglyceride 150-199 mg/dLHigh Triglyceride: 200-499 mg/dLVery High Triglyceride: greater than or equal to 5OO mg/dL Cholesterol 136 <200 mg/dL [facility] Comment:Desirable Cholestero l: less than 200 mg/dLBorderline High Cholesterol: 200-239 mg/dLHigh Cholesterol: greater than 239 mg/dL LDL Cholesterol Calculated 81 <100 mg/dL [facility] Comment:Desirable LDL: less than 100 mg/dLNear Optimal/Above Optimal LDL: 110- 129 mg/dLBorderline High LDL: 130-159 mg/dLHigh LDL: 160-189 mg/dLVery High LDL: greater than or equal to 190 mg/dL HDL Cholesterol 39(L) >40 mg/dL [facility] Comment:Desirable HDL: great er than 40 mg/dL Note: This HDL assay may give artificially low results in patients with liver disease. Blood Venous blood specimen / Unknown 08/24/2024 11:57 AM EST 08/24/2024 1:03 PM EST Carmen Elza DO LAB BLOOD ORDERABLES Final R esult [facility] [address] [place] [address] [phone] * BI US Breast Limited Bilateral (06/02/2024 2:00 PM EDT) Anatomical Region Laterality Modality Breast Bilateral Ultrasound 06/02/2024 2:00 PM EDT Narrative 06/03/2024 8:44 AM EDT [facility] [address] [place], [place] [address] Ultrasound Report Signed Patient: Blaire Quiroz MR#: Jamarcus [id number] : 1975 Acct:[id number] Age/Sex: 49 / F ADM Date: 06/02/24 Loc: HO.MAMMO Attending Dr: Carmen Bertrand DO Ordering Physician: Carmen Bertrand DO Date of Service: 06/02/24 Procedure(s): US breast BI limited mamm only Accession Number(s): [id number] cc: Carmen Bertrand DO EXAMINATION: US DIAGNOSTIC [...] 06/03/24 0841 DD/ 1400 TD/TT: 06/02/24 1454 Chief Resource Officer: Procedure Note Donotuseinterpreter, Image - 06/03/2024 [facility] [address] [place] [address] Ultrasound Report Signed Patient: Blaire Quiroz#: M [id number] : 1975Acct:[id number] Age/Sex: 49 / FADM Date: 06/02/24 Loc: HO.MAMMO Attending Dr: Carmen Bertrand DO Ordering Physician: Carmen Bertrand DO Date of Service: 06/02/24 Procedure(s): US breast BI limited mamm only Accession Number(s): [id number] cc: Carmen Bertrand DO EXAMINATION: US DIAGNOSTIC [...] 06/03/24 0841 DD/ 1400 TD/TT: 06/02/24 1454 Chief Resource Officer: us Carmen Bertrand DO IMG US PROCEDURES Final Resu lt * Hepatitis C Antibody with Reflex to HCV, RNA, Quantitative, Real-Time PCR (04/27/2024 2:02 PM EDT) Hepatitis C Antibody Nonreactive Nonreactive [facility] Comment:Antibodies to HCV no t detected; does not exclude early acuteHCV infection. Blood Venous blood specimen / Unknown 04/27/2024 2:02 PM EDT 04/27/2024 4:01 PM EDT Carmen Bertrand DO LAB BLOOD ORDERABLES Final R esult Performing Organization Address [facility]/ZIP Co de Phone Number [facility] [address] [place] [phone] * HIV Ab/Ag ([facility]) (02/21/2023 2:35 PM EDT) Pathologist [facility] HIV AB/AG Nonreactive Nonreactive [facility] Comment:HIV-1 p24 Ag and/or HIV-1/HIV-2 Ab not detected.A test result that is nonreactive does not exclude thepossibility of exposure to or infection with HIV-1 and/orHIV-2. Nonreactive results in this assay for individualswith prior exposure to HIV-1 and/or HIV-2 may be due toantigen and antibody levels that are below the limit ofdetection of this assay.The [employer] HIV Ag/Ab Combo assay result andsupplemental assay results should be interpreted inconjunction with the patient's clinical presentation,history and other laboratory results. If the results areinconsistent with clinical evidence, additional testing issuggested to confirm the result. 02/21/2023 2:35 PM EDT 02/21/2023 2:37 PM EDT [facility] External Provider LAB BLO OD ORDERABLES Final Result Performing Organization Address [facility]/ZIP Co de Phone Number [facility] [address] [place] [phone] from Last 3 Months or Most Recently Relevant to Health Maintenance Insurance [facility] ONE CARE < [address] [id number] Care Teams Chief Nuclear Medicine Technologist Relationship Specialty Start Date End Date Carmen Bertrand DO [address] [place] [phone] PCP - General Family Medicine 08/18/18
--- OUTSIDE RECORDS SUMMARY | 2025-04-13 11:51 | XMS_ITS | Encounter Summary ---
Author Organization [employer] Address [address] [address] [place] [address] Care Team Providers Care Job Press Feeder Name Role Phone Carmen Bertrand DO Primary Care Provider [phone] Reason for Visit * Reason Comments Med Refill Encounter Details Date Type Department Care Team ([facility] Contact Info) Description 11/20/2022 Refill [facility] [address] [place], [place] [phone] Carmen Bertrand DO [address] [place] [address] Morbid obesity with body mass index (BMI) [...] Description 06/01/2025 2:00 PM EDT Clinical Support [facility] [address] [place] [address] Jessica Conway, RN documented as of this encounter Visit Diagnoses Diagnosis Morbid obesity with body mass index (BMI) of 50.0 to 59.9 in adult (CMS/HCC) documented in this encounter Additional Health Concerns Assessment Noted Time PHQ-9 Depression Total Score: 16 023 12:22 PM EST documented as of this encounter Care Teams Job Press Feeder Relationship Specialty Start Date End Date Carmen Bertrand DO [address] [place] [address] PCP - General Family Medicine 08/18/18 documented as of this encounter
--- OUTSIDE RECORDS SUMMARY | 2025-04-13 11:51 | XMS_ITS | Encounter Summary ---
Author Organization [employer] [facility] Address [address] [facility] 7t [place] [address] Care Team Providers Care Advertising Strategist Name Role Phone Carmen Bertrand DO Primary Care Provider + [phone] Reason for Visit * Reason Comments Med Refill Encounter Details Date Type Department Care Team ([facility] Contact Info) Description 10/18/2022 Refill [facility] [address] [place] [address] Carmen Bertrand DO [address] [place] [address] Social History Tobacco Use Types Packs/Day Years [...] Upcoming Encounters Date Type Department Care Team ([facility] Contact Info) Description 06/01/2025 2:00 PM EDT Clinical Support [facility] [address] [place] [address] Jessica Conway, RULA documented as of this encounter Visit Diagnoses Not on filedocumented in this encounter Additional Health Concerns Assessment Noted Time PHQ-9 Depression Total Score: 16 023 12:22 PM EST documented as of this encounter Care Teams Advertising Strategist Relationship Specialty Start Date End Date Carmen Bertrand DO [address] [place] [address] PCP - General Family Medicine 08/18/18 documented as of this encounter
--- OUTSIDE RECORDS SUMMARY | 2025-04-13 11:51 | XMS_ITS | Encounter Summary ---
Author Organization [employer] [facility] Address [address] [facility] 7t [place] [address] Care Team Providers Care Neonatal Intensive Care Unit Nurse Name Role Phone Raissa Bertrandfer Primary Care Provider + [phone] Reason for Visit * Reason Comments Med Refill Encounter Details Date Type Department Care Team ([facility] Contact Info) Description 02/03/2023 Refill [facility] [address] [place], [place] [phone] Leticia Ramirez MD [address] [place] [address] Nonintractable headache, unspecified chronicity pattern, unspecified headache [...] Description 06/01/2025 2:00 PM EDT Clinical Support [facility] [address] [place] [address] Jessica Conway RN documented as of this encounter Visit Diagnoses Diagnosis Nonintractable headache, unspecified chronicity pattern, unspecified headache type documented in this encounter Additional Health Concerns Assessment Noted Time PHQ-9 Depression Total Score: 16 023 12:22 PM EST documented as of this encounter Care Teams Neonatal Intensive Care Unit Nurse Relationship Specialty Start Date End Date Carmen Bertrand DO [address] [place] [address] PCP - General Family Medicine 08/18/18 documented as of this encounter
--- OUTSIDE RECORDS SUMMARY | 2025-04-13 11:51 | XMS_ITS | Encounter Summary ---
Author Organization [employer] Address [address] [facility] 7t [place] [address] Care Team Providers Care Master Sheet Clerk Name Role Phone Carmen Bertrand DO Primary Care Provider + [phone] Reason for Visit * Reason Comments Med Refill Encounter Details Date Type Department Care Team ([facility] Contact Info) Description 04/11/2025 Refill [facility] [address] [place], [place] [phone] Carmen Bertrand DO [address] [place] [address] Chronic low back pain, unspecified back pain [...] Description 06/01/2025 2:00 PM EDT Clinical Support [facility] [address] [place] [phone] Jessica Conway, RULA documented as of this encounter Visit Diagnoses Diagnosis Chronic low back pain, unspecified back pain laterality, unspecified whether sciatica present documented in this encounter Additional Health Concerns Assessment Noted Time PHQ-9 Depression Total Score: 22 024 11:00 AM EDT documented as of this encounter Care Teams Master Sheet Clerk Relationship Specialty Start Date End Date Carmen Bertrand DO [address] [place] [address] PCP - General Family Medicine 08/18/18 documented as of this encounter
--- OUTSIDE RECORDS SUMMARY | 2025-04-13 11:51 | XMS_ITS | Encounter Summary ---
Author Organization [employer] Address [address] [facility] [address] [place] [address] Care Team Providers Care Ruling Machine Operator Name Role Phone Carmen Bertrand DO Primary Care Provider + [phone] Reason for Visit * Reason Onset Date Comments Durable Medical Equipment 02/17/2025 [facility] ON E Care: Air Conditioner Encounter Details Date Type Department Care Team ([facility] st Contact Info) Description 02/17/2025 Telephone [facility] [address] [place] [address] Carmen Bertrand DO [address] [place] [address] Durable Medical Equipment ([facility] ONE Care: Air Conditioner) Social History Tobacco Use Types Packs/Day Years [...] AM EDT documented as of this encounter Functional Status * Over the last 2 weeks, how often have you been bothered by any of the following problems? Question Answer Date of Assessment Author Feeling nervous, anxious, or on edge 3 03/18/2025 12:07 PM EDT Billie Plata MA Not being able to stop or co ntrol worrying 3 03/18/2025 12:07 PM EDT Billie Plata MA Worrying too much about diff erent things 3 03/18/2025 12:07 PM EDT Billie Plata MA Trouble relaxing 3 03/18/2025 12:07 PM EDT Billie Plata MA Being so restless that it is hard to sit still 2 03/18/2025 12:07 PM EDT Billie Plata MA Becoming easily annoyed or irritable 3 03/18/2025 12:07 PM EDT Billie Plata MA Feeling afraid as if somethi ng awful might happen 3 03/18/2025 12:07 PM EDT Billie Plata MA PIPER-7 Total Score 20 03/18/2025 12:07 PM EDT Billie Plata MA documented as of this encounter Miscellaneous Notes * Telephone Encounter - Sangita Pillo - 04/11/2025 10:51 AM EDT DME order was generated and uploaded to [place], [facility] Certified Family Mediator was informed. * Telephone Encounter - Sangita Ferro - 02/17/2025 4:19 PM EDT Please see below DME request from [facility] memory care program resident. Please advise. * Telephone Encounter - Sangita Ferro - 02/17/2025 4:18 PM EDT ----- Message from Blaire Aguillon sent at 02/17/2025 2:53 PM EDT ----- Regarding: DME RX Contact: Lauren, On behalf of [facility]'s Care Management staff [facility], we are requesting Durable Medical Equipment (DME) for the patient. I can facilitate the ordering process through our approved vendor (such as [employer], [employer], etc.), but a prescription for the DME item(s) is needed. The DME item(s) requested include: - Air Conditioner Kindly send the prescriptions to ([email or web address]) for processing the DME referral on behalf of the patient. Please also provide the patient's current Height and Weight. Should you have any inquiries regarding this request, feel free to contact me [phone]. Thank you for your assistance in this matter. documented in this encounter Plan of Treatment Upcoming Encounters Date Type Department Care Team (Late st Contact Info) Description 06/01/2025 2:00 PM EDT Clinical Support [facility] [address] [place] [phone] Jessica Conway RN documented as of this encounter Visit Diagnoses Not on filedocumented in this encounter Additional Health Concerns Assessment Noted Time PHQ-9 Depression Total Score: 22 024 11:00 AM EDT documented as of this encounter Care Teams Ruling Machine Operator Relationship Specialty Start Date End Date Carmen Bertrand DO [address] [place] [address] PCP - General Family Medicine 08/18/18 documented as of this encounter
--- OUTSIDE RECORDS SUMMARY | 2025-04-13 11:51 | XMS_ITS | Encounter Summary ---
Author Organization [employer] Address [address] [facility] 7t [place] [address] Care Team Providers Care Shower Screen Installer Name Role Phone Carmen Bertrand DO Primary Care Provider [phone] Encounter Details Date Type Department Care Team (Late st Contact Info) Description 08/13/2022 Orders Only [facility] [address] [place] [address] Carmen Perez LPN Social History Tobacco Use [...] Description 06/01/2025 2:00 PM EDT Clinical Support [facility] [address] [place] [address] Jessica Conway RN documented as of this encounter Visit Diagnoses Not on filedocumented in this encounter Care Teams Shower Screen Installer Relationship Specialty Start Date End Date Carmen Bertrand DO [address] [place] [address] PCP - General Family Medicine 08/18/18 documented as of this encounter
--- OUTSIDE RECORDS SUMMARY | 2025-04-13 11:51 | XMS_ITS | Encounter Summary ---
Author Organization [employer] Address [address] [place] [address] Care Team Providers Care Platform Stapler Name Role Phone Carmen Bertrand DO Primary Care Provider + [phone] Reason for Visit * Reason Comments Med Refill Encounter Details Date Type Department Care Team ([facility] Contact Info) Description 03/16/2024 Refill [facility] [address] [place], [place] [phone] Carmen Bertrand DO [address] [place] [address] Chronic low back pain, unspecified back pain [...] Description 06/01/2025 2:00 PM EDT Clinical Support [facility] [address] [place] [address] Jessica Conway, RULA documented as of this encounter Visit Diagnoses Diagnosis Chronic low back pain, unspecified back pain laterality, unspecified whether sciatica present documented in this encounter Additional Health Concerns Assessment Noted Time PHQ-9 Depression Total Score: 21 023 11:26 AM EST documented as of this encounter Care Teams Platform Stapler Relationship Specialty Start Date End Date Carmen Bertrand DO [address] [place] [address] PCP - General Family Medicine 08/18/18 documented as of this encounter
--- OUTSIDE RECORDS SUMMARY | 2025-04-13 11:51 | XMS_ITS | Encounter Summary ---
Author Organization [employer] Address [address] [facility] [address] 7[address] [place] [address] Care Team Providers Care Solar Lab Technician Name Role Phone Carmen Bertrand DO Primary Care Provider + [phone] Reason for Visit * Reason Comments Med Refill Encounter Details Date Type Department Care Team ([facility] Contact Info) Description 01/26/2025 Refill [facility] [address] [place], [place] [phone] Carmen Bertrand DO [address] [place] [address] Social History Tobacco Use Types Packs/Day Years [...] Description 06/01/2025 2:00 PM EDT Clinical Support [facility] [address] [place] [address] Jessica Conway, RULA documented as of this encounter Visit Diagnoses Not on filedocumented in this encounter Additional Health Concerns Assessment Noted Time PHQ-9 Depression Total Score: 22 024 11:00 AM EDT documented as of this encounter Care Teams Solar Lab Technician Relationship Specialty Start Date End Date Carmen Bertrand DO [address] [place] [address] PCP - General Family Medicine 08/18/18 documented as of this encounter
--- OUTSIDE RECORDS SUMMARY | 2025-04-13 11:51 | XMS_ITS | Encounter Summary ---
Author Organization [employer] Address [address] [place] [address] Care Team Providers Care Vibrating Screen Operator Name Role Phone Carmen Bertrand DO Primary Care Provider + [phone] Reason for Visit * Reason Comments Med Refill Encounter Details Date Type Department Care Team ([facility] Contact Info) Description 02/04/2025 Refill [facility] [address] [place], [place] [phone] Carmen Bertrand DO [address] [place] [address] Chronic low back pain, unspecified back pain [...] Description 06/01/2025 2:00 PM EDT Clinical Support [facility] [address] [place] [address] Jessica Conway RN documented as of this encounter Visit Diagnoses Diagnosis Chronic low back pain, unspecified back pain laterality, unspecified whether sciatica present documented in this encounter Additional Health Concerns Assessment Noted Time PHQ-9 Depression Total Score: 22 024 11:00 AM EDT documented as of this encounter Care Teams Vibrating Screen Operator Relationship Specialty Start Date End Date Carmen Bertrand DO [address] [place] [address] PCP - General Family Medicine 08/18/18 documented as of this encounter
--- OUTSIDE RECORDS SUMMARY | 2025-04-13 11:51 | XMS_ITS | Encounter Summary ---
Author Organization [employer] Address [address] [facility] [address] [place] [address] Care Team Providers Care Wound/Ostomy Nurse Name Role Phone Raissa Bertrandfer Primary Care Provider + [phone] Reason for Visit * Reason Comments Med Refill Encounter Details Date Type Department Care Team ([facility] Contact Info) Description 01/13/2024 Refill [facility] MEDICINE [address] [place] [address] Rox Sutton MD [address] [place] [address] Pain Social History Tobacco Use Types Packs/Day [...] Description 06/01/2025 2:00 PM EDT Clinical Support [facility] MEDICINE [address] [place] [phone] Jessica Conway RN documented as of this encounter Visit Diagnoses Diagnosis Pain Generalized pain documented in this encounter Additional Health Concerns Assessment Noted Time PHQ-9 Depression Total Score: 21 023 11:26 AM EST documented as of this encounter Care Teams Wound/Ostomy Nurse Relationship Specialty Start Date End Date Carmen Bertrand DO [address] [place] [address] PCP - General Family Medicine 08/18/18 documented as of this encounter
--- OUTSIDE RECORDS SUMMARY | 2025-04-13 11:51 | XMS_ITS | Encounter Summary ---
Author Organization [employer] Address [address] [facility] [address] [place] [address] Care Team Providers Care Mechanical Detailer Name Role Phone Carmen Bertrand DO Primary Care Provider + [phone] Reason for Visit * Reason Comments Med Refill Encounter Details Date Type Department Care Team ([facility] Contact Info) Description 02/24/2024 Refill [facility] MEDICINE [address] [place], [place] [phone] Carmen Bertrand DO [address] [place] [address] Social History Tobacco Use Types Packs/Day Years [...] 2:00 PM EDT Clinical Support [facility] MEDICINE [address] [place] [phone] Jessica Conway RN documented as of this encounter Visit Diagnoses Not on filedocumented in this encounter Additional Health Concerns Assessment Noted Time PHQ-9 Depression Total Score: 21 023 11:26 AM EST documented as of this encounter Care Teams Mechanical Detailer Relationship Specialty Start Date End Date Carmen Bertrand DO [address] [place] [phone] PCP - General Family Medicine 08/18/18 documented as of this encounter
--- OUTSIDE RECORDS SUMMARY | 2025-04-13 11:51 | XMS_ITS | Encounter Summary ---
Author Organization [employer] Address [address] [facility] 7t [place] [address] Care Team Providers Care Inspector Tester Sorter Name Role Phone Carmen Bertrand DO Primary Care Provider + [phone] Reason for Visit * Reason Onset Date Comments Hospital Follow-up 11/12/2024 Encounter Details Date Type Department Care Team ([facility] Contact Info) Description 11/12/2024 Telephone [facility] MEDICINE [address] [place] [address] Carmen Bertrand DO [address] [place] [address] Hospital Follow-up Social History Tobacco Use Types [...] from pt requesting a HDF appt. Hospital: [facility] Date of admission: 11/07/2024 Discharge date: 11/12/2024 Diagnosed: heart attack *Send message to [place] Clinical Care Coordinators documented in this encounter Plan of Treatment Upcoming Encounters Date Type Department Care Team (Late st Contact Info) Description 06/01/2025 2:00 PM EDT Clinical Support [facility] MEDICINE [address] [place] [address] Jessica Conway, RULA documented as of this encounter Visit Diagnoses Not on filedocumented in this encounter Additional Health Concerns Assessment Noted Time PHQ-9 Depression Total Score: 22 024 11:00 AM EDT documented as of this encounter Care Teams Inspector Tester Sorter Relationship Specialty Start Date End Date Carmen Bertrand DO [address] [place] [address] PCP - General Family Medicine 08/18/18 documented as of this encounter
--- OUTSIDE RECORDS SUMMARY | 2025-04-13 11:51 | XMS_ITS | Encounter Summary ---
Author Organization [employer] Address [address] [facility] [address] [place] [address] Care Team Providers Care Catering Attendant Name Role Phone Raissa Bertrandfer Primary Care Provider + [phone] Reason for Visit * Reason Comments Med Refill Encounter Details Date Type Department Care Team ([facility] Contact Info) Description 03/08/2024 Refill [facility] MEDICINE [address] [place] [address] Rox Sutton MD [address] [place] [address] Pain Social History Tobacco Use Types Packs/Day [...] 2:00 PM EDT Clinical Support [facility] MEDICINE [address] [place] [phone] Jessica Conway RN documented as of this encounter Visit Diagnoses Diagnosis Pain Generalized pain documented in this encounter Additional Health Concerns Assessment Noted Time PHQ-9 Depression Total Score: 21 023 11:26 AM EST documented as of this encounter Care Teams Catering Attendant Relationship Specialty Start Date End Date Carmen Bertrand DO [address] [place] [address] PCP - General Family Medicine 08/18/18 documented as of this encounter
--- OUTSIDE RECORDS SUMMARY | 2025-04-13 11:51 | XMS_ITS | Encounter Summary ---
Author Organization [facility] [facility] Address [address] [place] [address] 7 [place] [address] Care Team Providers Care Valuation Manager Name Role Phone Carmen Bertrand DO Primary Care Provider [phone] Reason for Visit * Reason Comments Med Refill Encounter Details Date Type Department Care Team (Late st Contact Info) Description 07/29/2022 Refill [facility] MEDICINE [address] [place] [address] Carmen Bertrand DO [address] [place] [address] Social History Tobacco Use Types Packs/Day Years [...] Description 06/01/2025 2:00 PM EDT Clinical Support [facility] MEDICINE [address] [place] [phone] Jessica Conway RN documented as of this encounter Visit Diagnoses Not on filedocumented in this encounter Care Teams Valuation Manager Relationship Specialty Start Date End Date Carmen Bertrand DO [address] [place] [address] PCP - General Family Medicine 08/18/18 documented as of this encounter
--- OUTSIDE RECORDS SUMMARY | 2025-04-13 11:51 | XMS_ITS | Encounter Summary ---
Author Organization [employer] Address [address] [facility] [facility] [address] [place] [address] Care Team Providers Care Manager Case Name Role Phone Carmen Bertrand DO Primary Care Provider + [phone] Reason for Visit * Reason Comments Med Refill Encounter Details Date Type Department Care Team ([facility] Contact Info) Description 05/12/2024 Refill [facility] [address] [place], [place] [phone] Carmen Bertrand DO [address] [place] [address] Chronic low back pain, unspecified back pain [...] [facility] MEDICINE [address] [place] [address] Jessica Conway RN documented as of this encounter Visit Diagnoses Diagnosis Chronic low back pain, unspecified back pain laterality, unspecified whether sciatica present documented in this encounter Additional Health Concerns Assessment Noted Time PHQ-9 Depression Total Score: 22 024 11:00 AM EDT documented as of this encounter Care Teams Manager Case Relationship Specialty Start Date End Date Carmen Bertrand DO [address] [place] [address] PCP - General Family Medicine 08/18/18 documented as of this encounter
== END 2025-04-13 12:00 | disposition home or self-care (01) ==
LOC: HO.RHES 10:57
PROVIDERS: PCP Family Medicine; Visit Provider Student in an Organized Health Care Education/Training Program
DX: M19.011 Primary osteoarthritis, right shoulder (principal); R76.8 Other specified abnormal immunological findings in serum
CPT/HCPCS: 20605; 99203

== ENCOUNTER 2025-05-27 10:00 | Outpatient (REF) | payer OTHER, SELFPAY ==
[2025-06-14 13:00] VITALS: BP 128/72; BP 140/60; BP 148/88; BMI 63.7
--- OUTSIDE RECORDS SUMMARY | 2025-08-02 14:00 | XMS_ITS | Encounter Summary ---
Author Organization [employer] Address [address] [place] [address] 7 [place] [address] Care Team Providers Care Hospital Nursing Assistant Name Role Phone Elza Carmen Primary Care Provider + [phone] Reason for Visit * Reason Comments toradol injection Encounter Details Date Type Department Care Team (Latest Contact Info) Description 08/02/2025 2:00 PM EST Clinical Support [facility] MEDICINE [address] [place] [address] Lisa Rios, RN [address] [place] [address] Chronic right shoulder pain (Primary Dx); Chronic low back pain, unspecified back pain [...] as of this encounter Progress Notes * Lisa Rios RN - 08/02/2025 2:00 PM EST S: Pt. Here for toradol injection for left should pain. Pt. Also requesting refill of Tramadol and c/o worsening acid reflux since finishing last course of abx O: Ketoralac 1mL (30mg) administered IM into L deltoid. Pt. Tolerated well. A: Mild arthritis left AC joint P: Pt. Will keep ortho appointment 10/04/25, per PCP may get one additional toradol injection for pain in approx 1 month if this one wears off. Otherwise, PCP sent in rxs to [facility] pharmacy for tramadol and an increase in dose of pantoprazole from 20mg to 40mg every morning before breakfast, and continue pepcid at HS. F/up with GI if no improvement. Pt. Agrees to plan. documented in this encounter Plan of Treatment Upcoming Encounters Date Type Department Care Team (Late st Contact Info) Description 09/07/2025 2:00 PM EST Clinical Support [facility] MEDICINE [address] [place] [address] Jessiac Conway, RULA documented as of this encounter Visit Diagnoses Diagnosis Chronic right shoulder pain- Primary Pain in joint, shoulder region Chronic low back pain, unspecified back pain laterality, unspecified whether sciatica present documented in this encounter Administered Medications Inactive Administered Medications - up to 3 most recent administrations Medication Order MAR Action Action Date Dose Rate Site ketorolac (Toradol) injection 30 mg 30 mg, Intramuscular, Once, On Fri08/02/25 at 1430, For 1 doseIndications:Chronic right shoulder pain Given 08/02/2025 2:30 PM EST 30 mg Left Deltoid documented in this encounter Additional Health Concerns Assessment Noted Time PHQ-9 Depression Total Score: 22 024 11:00 AM EDT documented as of this encounter Care Teams Hospital Nursing Assistant Relationship Specialty Start Date End Date Carmen Bertrand DO 230 [place] [address] PCP - General Family Medicine 08/18/18 documented as of this encounter
--- OUTSIDE RECORDS SUMMARY | 2025-08-02 17:33 | XMS_ITS | Encounter Summary ---
Author Organization [employer] Address [address] [facility] 7 [place] [address] Care Team Providers Care Hat Brim Curler Name Role Phone EdilsonCarmen dixon Primary Care Provider + [phone] Encounter Details Date Type Department Care Team (Latest Contact Info) Description 08/02/2025 Travel Social History Tobacco Use Types Packs/Day [...] 09/07/2025 2:00 PM EST Clinical Support [facility] MEDICINE [address] [place] [address] Jessica Conway RN documented as of this encounter Visit Diagnoses Not on filedocumented in this encounter Additional Health Concerns Assessment Noted Time PHQ-9 Depression Total Score: 22 024 11:00 AM EDT documented as of this encounter Care Teams Hat Brim Curler Relationship Specialty Start Date End Date Carmen Bertrand DO [address] [place] [address] PCP - General Family Medicine 08/18/18 documented as of this encounter
--- OUTSIDE RECORDS SUMMARY | 2025-08-02 17:33 | XMS_ITS | Encounter Summary ---
Author Organization [employer] Address [address] [place] [address] 7 [place] [address] Care Team Providers Care Reforestation Worker Name Role Phone Carmen Bertrand DO Primary Care Provider + [phone] Reason for Visit * Reason Comments Med Refill Encounter Details Date Type Department Care Team ([facility] st Contact Info) Description 02/24/2024 Refill [facility] MEDICINE 230 [place], [place] [phone] Carmen Bertrand DO [address] [place] [address] Social History Tobacco Use Types Packs/Day Years [...] 09/07/2025 2:00 PM EST Clinical Support [facility] MEDICINE [address] [place] [address] Jessica Conway RN documented as of this encounter Visit Diagnoses Not on filedocumented in this encounter Additional Health Concerns Assessment Noted Time PHQ-9 Depression Total Score: 21 023 11:26 AM EST documented as of this encounter Care Teams Reforestation Worker Relationship Specialty Start Date End Date Carmen Bertrand DO 230 [place] [address] PCP - General Family Medicine 08/18/18 documented as of this encounter
--- OUTSIDE RECORDS SUMMARY | 2025-08-02 17:33 | XMS_ITS | Encounter Summary ---
Author Organization [employer] Address [address] [place] [address] 7 [place] [address] Care Team Providers Care Nursing Student Name Role Phone Elza Carmen Primary Care Provider + [phone] Reason for Visit * Reason Comments Med Refill Encounter Details Date Type Department Care Team ([facility] st Contact Info) Description 01/13/2024 Refill [facility] MEDICINE [address] [place] [address] Rox Sutton MD [address] [place] [address] Pain Social History Tobacco Use Types Packs/Day [...] Clinical Support [facility] MEDICINE [address] [place] [address] Jessiac Conway RN documented as of this encounter Visit Diagnoses Diagnosis Pain Generalized pain documented in this encounter Additional Health Concerns Assessment Noted Time PHQ-9 Depression Total Score: 21 023 11:26 AM EST documented as of this encounter Care Teams Nursing Student Relationship Specialty Start Date End Date Carmen Bertrand DO [address] [place] [address] PCP - General Family Medicine 08/18/18 documented as of this encounter
--- OUTSIDE RECORDS SUMMARY | 2025-08-02 17:33 | XMS_ITS | Encounter Summary ---
Author Organization [employer] Address [address] [place] [address] 7 [place] [address] Care Team Providers Care Head Athletic Trainer/Strength Coach Name Role Phone Carmen Bertrand DO Primary Care Provider + [phone] Reason for Visit * Reason Onset Date Comments telephone call 07/25/2025 Encounter Details Date Type Department Care Team ([facility] st Contact Info) Description 07/25/2025 Telephone [facility] MEDICINE 230 [place] [address] Carmen Bertrand DO [address] [place] [address] telephone call Social History Tobacco Use Types [...] Telephone Encounter - Trista Alford RN - 07/29/2025 2:47 PM EST TC returned to patient [phone] to schedule appointment for toradol injections (okay per Dr. Bertrand). RN scheduled patient for an appointment on 08/02/25 at 2pm. Patient to f/u PRN. * Telephone Encounter - Luis Felipe Ferro - 07/29/2025 12:32 PM EST Tc from pt returning you regarding message prior. * Telephone Encounter - Rober Alberto RN - 07/26/2025 11:49 AM EST TC placed to patient [phone] regarding below message. RN left an VM for the patient to Red team nurses. RN will MYCHART patient. PT to F/U PRN. * Telephone Encounter - Aydee Whittaker - 07/25/2025 3:44 PM EST Pt walked in stating in her last appointment with pcp she received a shot for pain she was having in her shoulder area and pcp said if the pain came back to come and book a appointment but she isnt sure what shot it was. documented in this encounter Plan of Treatment Upcoming Encounters Date Type Department Care Team (Late st Contact Info) Description 09/07/2025 2:00 PM EST Clinical Support [facility] MEDICINE 230 [place] [address] Jessica Conway RN documented as of this encounter Visit Diagnoses Not on filedocumented in this encounter Additional Health Concerns Assessment Noted Time PHQ-9 Depression Total Score: 22 024 11:00 AM EDT documented as of this encounter Care Teams Head Athletic Trainer/Strength Coach Relationship Specialty Start Date End Date Carmen Bertrand DO [address] [place] [address] PCP - General Family Medicine 08/18/18 documented as of this encounter
--- OUTSIDE RECORDS SUMMARY | 2025-08-02 17:33 | XMS_ITS | Encounter Summary ---
Author Organization [employer] Address [address] [place] [address] 7 [place] [address] Care Team Providers Care Manager Corporate Name Role Phone Carmen Bertrand DO Primary Care Provider + [phone] Reason for Visit * Reason Comments Med Refill Encounter Details Date Type Department Care Team ([facility] st Contact Info) Description 07/29/2025 Refill [facility] MEDICINE [address] [place], [place] [phone] Carmen Bertrand DO 230 [place], [place] [phone] Chronic low back pain, unspecified back pain [...] Clinical Support [facility] MEDICINE 230 [place] [address] Jessica Conway RN documented as of this encounter Visit Diagnoses Diagnosis Chronic low back pain, unspecified back pain laterality, unspecified whether sciatica present documented in this encounter Additional Health Concerns Assessment Noted Time PHQ-9 Depression Total Score: 22 024 11:00 AM EDT documented as of this encounter Care Teams Manager Corporate Relationship Specialty Start Date End Date Carmen Bertrand DO 230 [place] [address] PCP - General Family Medicine 08/18/18 documented as of this encounter
--- OUTSIDE RECORDS SUMMARY | 2025-08-02 17:33 | XMS_ITS | Encounter Summary ---
Author Organization [employer] Address [address] [place] [address] [place] [address] Care Team Providers Care Baggage Agent Supervisor Name Role Phone Carmen Bertrand DO Primary Care Provider [phone]- [phone] Encounter Details Date Type Department Care Team (Late st Contact Info) Description 09/09/2022 Orders Only [facility] CHC MED & PEDS [address] [place] [address] Carmen Perez LPN Social History Tobacco Use [...] PM EST Clinical Support [facility] MEDICINE 230 [place] [address] Jessica oCnway, RN documented as of this encounter Visit Diagnoses Not on filedocumented in this encounter Care Teams Baggage Agent Supervisor Relationship Specialty Start Date End Date Carmen Bertrand DO 230 [place] [address] PCP - General Family Medicine 08/18/18 documented as of this encounter
--- OUTSIDE RECORDS SUMMARY | 2025-08-02 17:33 | XMS_ITS | Encounter Summary ---
Author Organization [employer] Address [address] [place] [address] 7 [place] [address] Care Team Providers Care Heel Washer Stringing Machine Operator Name Role Phone Carmen Bertrand DO Primary Care Provider + [phone] Reason for Visit * Reason Comments Med Refill Encounter Details Date Type Department Care Team ([facility] st Contact Info) Description 01/26/2025 Refill [facility] MEDICINE 230 [place], [place] [phone] Carmen Bertrand DO 230 [place], [place] [phone] Social History Tobacco Use Types Packs/Day Years [...] Support [facility] MEDICINE [address] [place] [address] Jessica Conway, RULA documented as of this encounter Visit Diagnoses Not on filedocumented in this encounter Additional Health Concerns Assessment Noted Time PHQ-9 Depression Total Score: 22 024 11:00 AM EDT documented as of this encounter Care Teams Heel Washer Stringing Machine Operator Relationship Specialty Start Date End Date Carmen Bertrand DO 230 [place] [address] PCP - General Family Medicine 08/18/18 documented as of this encounter
--- OUTSIDE RECORDS SUMMARY | 2025-08-02 17:33 | XMS_ITS | Encounter Summary ---
Author Organization [employer] Address [address] [place] [address] 7 [place] [address] Care Team Providers Care Fruit Inspector Name Role Phone Carmen Bertrand DO Primary Care Provider + [phone] Reason for Visit * Reason Onset Date Comments Nurse Triage 07/29/2025 Encounter Details Date Type Department Care Team ([facility] st Contact Info) Description 07/29/2025 Telephone [facility] MEDICINE 230 [place] [address] Carmen Bertrand DO 230 [place] [address] Nurse Triage Social History Tobacco Use Types [...] encounter Miscellaneous Notes * Telephone Encounter - Neelima Mae RN - 07/29/2025 4:26 PM EST Telephone call to pt via [employer] [phone]. Pt state that for 10 days she has been having foul-smelling burps 5-10 minutes after she eats. Occasionally but not always vomits, soon after eating as well.Denies nausea, fever, diarrhea, abdominal pain. States that she was seen for this before, was told she has acid in my stomach , and has GI appt next year. She confirms taking medication 2x daily forthis, but could not confirm medication name (e.g. pepcid or protonix). Not taking Zepbound. RN advised her to come to [facility] tomorrow for provider evaluation, gave hrs of operation for Friday clinic/extended. Pt states she will go to ED if sxs worsen. Educated on ER precautions: vomiting daily or multiple times per day, inability to eat, fever, diarrhea, severe abdominal pain. RN gave her contact info for GI to call to see if appt can be moved up, or if they have recommendation on medicationto help with sxs. Educated on homecare measures as below. Pt verbalized understanding, no further questions. Protocol Used: Abdominal Pain - Female (Adult) Protocol-Based Disposition: See in Office or Video Visit within 2 Weeks Positive Triage Question: * Abdominal pain is a chronic symptom (recurrent or ongoing AND lasting > 4 weeks) * All higher-acuity triage questions were negative. Care Advice Discussed: * Rest * Drink Clear Fluids * Diet * Pass a Stool * Reasons To Call Back - Severe pain lasts over 1 hour - Constant pain lasts over 2 hours - Intermittent pains (comes and goes, cramps) lasts over 48 hours - You become worse * Telephone Encounter - Martínez Leija - 07/29/2025 2:37 PM EST Tc from pt requesting call back regarding prior message * Telephone Encounter - Rober Alberto RN - 07/29/2025 2:03 PM EST TC placed to patient [phone] using [facility] #ID [id number] regarding below message. RN left an VM for the patient to Nurse triage line. Patient F/U PRN. * Telephone Encounter - Luis Felipe Ferro - 07/29/2025 12:33 PM EST Symptoms: Constipation, Heartburn - Caller Reports Outcome: Schedule an urgent appointment (within 1 hour) or talk to a nurse or provider soon Reason: Constant stomach pain Tc from pt stating when she eat Please contact at [phone] Italian speak documented in this encounter Plan of Treatment Upcoming Encounters Date Type Department Care Team (Late st Contact Info) Description 09/07/2025 2:00 PM EST Clinical Support [address] [address] Jessica Conway, RN documented as of this encounter Visit Diagnoses Not on filedocumented in this encounter Additional Health Concerns Assessment Noted Time PHQ-9 Depression Total Score: 22 024 11:00 AM EDT documented as of this encounter Care Teams Fruit Inspector Relationship Specialty Start Date End Date Carmen Bertrand DO 230 [facility] [place] [address] PCP - General Family Medicine 08/18/18 documented as of this encounter
--- OUTSIDE RECORDS SUMMARY | 2025-08-02 17:33 | XMS_ITS | Encounter Summary ---
Author Organization [employer] Address [address] [facility] 7 [place] [address] Care Team Providers Care Embedder Name Role Phone Carmen Bertrand DO Primary Care Provider + [phone] Reason for Visit * Reason Comments Med Refill Encounter Details Date Type Department Care Team ([facility] st Contact Info) Description 07/22/2023 Refill [facility] CHC MED & PEDS [address] [place], [place] [phone] Carmen Bertrand DO 230 [place] [address] Hyperlipidemia, unspecified hyperlipidemia type Social History Tobacco [...] 2:00 PM EST Clinical Support [facility] MEDICINE 230 [place] [address] Jessica Conway RN documented as of this encounter Visit Diagnoses Diagnosis Hyperlipidemia, unspecified hyperlipidemia type documented in this encounter Additional Health Concerns Assessment Noted Time PHQ-9 Depression Total Score: 21 023 11:26 AM EST documented as of this encounter Care Teams Embedder Relationship Specialty Start Date End Date Carmen Bertrand DO 230 [place] [address] PCP - General Family Medicine 08/18/18 documented as of this encounter
--- OUTSIDE RECORDS SUMMARY | 2025-08-02 17:33 | XMS_ITS | Encounter Summary ---
Author Organization [employer] Address [address] [place] [address] [address] [address] Care Team Providers Care Rn Circulating Name Role Phone Carmen Bertrand DO Primary Care Provider + [phone] Reason for Visit * Reason Comments Med Refill Encounter Details Date Type Department Care Team ([facility] st Contact Info) Description 11/20/2022 Refill [facility] MEDICINE 230 [place], [place] [phone] Carmen Bertrand DO [address] [place], [place] [phone] Morbid obesity with body mass index (BMI) [...] Clinical Support [facility] MEDICINE [address] [place] [address] Jessica Conway, RN documented as of this encounter Visit Diagnoses Diagnosis Morbid obesity with body mass index (BMI) of 50.0 to 59.9 in adult (HCC) documented in this encounter Additional Health Concerns Assessment Noted Time PHQ-9 Depression Total Score: 16 023 12:22 PM EST documented as of this encounter Care Teams Rn Circulating Relationship Specialty Start Date End Date Carmen Bertrand DO [address] [place] [address] PCP - General Family Medicine 08/18/18 documented as of this encounter
--- OUTSIDE RECORDS SUMMARY | 2025-08-02 17:33 | XMS_ITS | Encounter Summary ---
Author Organization [employer] Address [address] [place] [address] 7 [place] [address] Care Team Providers Care Principal Trainer Name Role Phone Carmen Bertrand DO Primary Care Provider + [phone] Reason for Visit * Reason Comments Med Refill Encounter Details Date Type Department Care Team ([facility] st Contact Info) Description 02/04/2025 Refill [facility] MEDICINE 230 [place], [place] [phone] Carmen Bertrand DO 230 [place], [place] [phone] Chronic low back pain, unspecified back pain [...] [facility] [address] [place] [address] Jessica Conway RN documented as of this encounter Visit Diagnoses Diagnosis Chronic low back pain, unspecified back pain laterality, unspecified whether sciatica present documented in this encounter Additional Health Concerns Assessment Noted Time PHQ-9 Depression Total Score: 22 024 11:00 AM EDT documented as of this encounter Care Teams Principal Trainer Relationship Specialty Start Date End Date Carmen Bertrand DO 230 [place] [address] PCP - General Family Medicine 08/18/18 documented as of this encounter
--- OUTSIDE RECORDS SUMMARY | 2025-08-02 17:33 | XMS_ITS | Encounter Summary ---
Author Organization [employer] Address [address] [place] [address] 7 [place] [address] Care Team Providers Care Sand Molder Name Role Phone Elza Carmen Primary Care Provider + [phone] Reason for Visit * Reason Comments Med Refill Encounter Details Date Type Department Care Team ([facility] st Contact Info) Description 03/08/2024 Refill [facility] MEDICINE 230 [place] [address] Rox Sutton MD 230 [place] [address] Pain Social History Tobacco Use Types Packs/Day [...] Description 09/07/2025 2:00 PM EST Clinical Support [facility] MEDICINE [address] [place] [address] Jessica Conway RN documented as of this encounter Visit Diagnoses Diagnosis Pain Generalized pain documented in this encounter Additional Health Concerns Assessment Noted Time PHQ-9 Depression Total Score: 21 023 11:26 AM EST documented as of this encounter Care Teams Sand Molder Relationship Specialty Start Date End Date Carmen Bertrand DO [address] [place] [address] PCP - General Family Medicine 08/18/18 documented as of this encounter
--- OUTSIDE RECORDS SUMMARY | 2025-08-02 17:33 | XMS_ITS | Encounter Summary ---
Author Organization [employer] Address [address] [place] [address] Care Team Providers Care Electric Blanket Packer Name Role Phone Carmen Bertrand DO Primary Care Provider + [phone] Reason for Visit * Reason Comments Med Refill Encounter Details Date Type Department Care Team (Late st Contact Info) Description 07/29/2022 Refill [facility] MEDICINE 230 [place], [place] [phone] Carmen Bertrand DO 230 [place] [address] Social History Tobacco Use Types Packs/Day Years [...] 09/07/2025 2:00 PM EST Clinical Support [facility] MEDICINE [address] [place] [phone] Jessica Conway RN documented as of this encounter Visit Diagnoses Not on filedocumented in this encounter Care Teams Electric Blanket Packer Relationship Specialty Start Date End Date Carmen Bertrand DO 230 [place], [place] [phone] PCP - General Family Medicine 08/18/18 documented as of this encounter
--- OUTSIDE RECORDS SUMMARY | 2025-08-02 17:33 | XMS_ITS | Encounter Summary ---
Author Organization [employer] Address [address] [place] [address] 7 [place] [address] Care Team Providers Care General Farm Manager Name Role Phone Carmen Bertrand DO Primary Care Provider + [phone] Reason for Visit * Reason Comments Med Refill Encounter Details Date Type Department Care Team ([facility] st Contact Info) Description 06/01/2025 Refill [facility] MEDICINE 230 [place], [place] [phone] Carmen Bertrand DO 230 [place], [place] [phone] Chronic low back pain, unspecified back pain [...] Clinical Support [facility] MEDICINE [address] [place] [address] Jessica Conway RN documented as of this encounter Visit Diagnoses Diagnosis Chronic low back pain, unspecified back pain laterality, unspecified whether sciatica present documented in this encounter Additional Health Concerns Assessment Noted Time PHQ-9 Depression Total Score: 22 024 11:00 AM EDT documented as of this encounter Care Teams General Farm Manager Relationship Specialty Start Date End Date Carmen Bertrand DO 230 [place] [address] PCP - General Family Medicine 08/18/18 documented as of this encounter
--- OUTSIDE RECORDS SUMMARY | 2025-08-02 17:33 | XMS_ITS | Encounter Summary ---
Author Organization [employer] Address [address] [place] [address] [facility] [place] [address] Care Team Providers Care Hydraulic Press Tender Name Role Phone Carmen Bertrand DO Primary Care Provider + [phone] Reason for Visit * Reason Comments Med Refill Encounter Details Date Type Department Care Team ([facility] Contact Info) Description 10/18/[address] [facility] MEDICINE 230 [place], [place] [phone] Carmen Bertrand DO 230 [place], [place] [phone] Social History Tobacco Use Types Packs/Day Years [...] Upcoming Encounters Date Type Department Care Team ([facility] st Contact Info) Description 09/07/2025 2:00 PM EST Clinical Support [facility] MEDICINE [address] [place] [address] Jessica Conway RN documented as of this encounter Visit Diagnoses Not on filedocumented in this encounter Additional Health Concerns Assessment Noted Time PHQ-9 Depression Total Score: 16 023 12:22 PM EST documented as of this encounter Care Teams Hydraulic Press Tender Relationship Specialty Start Date End Date Carmen Bertrand DO 230 [place] [address] PCP - General Family Medicine 08/18/18 documented as of this encounter
--- OUTSIDE RECORDS SUMMARY | 2025-08-02 17:33 | XMS_ITS | Data Portability ---
Author Organization [employer] [facility], [email or web address] Address [address] [place] [phone] Care Team Providers Care Forest Manager Name Role Phone Unavailable OTHER HIM CCA [...] rapid flu (A+B) 2024 025 [facility], [address] [place] [address], [id number] 15:45:24 rapid SARS CoV 2 Ag, QL IA, respiratory specimen [address], [id number] 15:45:08 Referral None recorded. Procedures None recorded. Surgeries None recorded. Imaging None recorded. Medication Orders albuterol sulfate 2.5 mg/3 mL (0.083 %) solution for nebulizatio n 2024 025 [facility] #[id number], [address] [place], [address], 5 18:27:03 Patient TargetsNo targets recorded. Patient [...] Name and Address Organization Details Recorded Time 58711 aspirin medicatio n Not available Not available Not available 10/05/2024 1191 RxNorm Not Available [facility] - production 5 13:36:43 47002 penicilli n V Not available Not available Not available Not available 10/05/2024 7984 RxNorm Not Available [facility] - production 5 13:36:43 14751 penicilli n G procaine medicatio n Not available Not available Not available 10/05/2024 7983 RxNorm Not Available [employer] - production 5 13:36:43 73023 penicilli n G benzathin e medicatio n [...] Vitals Date Recorded Heart rate Oxygen saturation Body height Respiratory rate Body temperature Body weight Systolic And Diastolic Provider Name and Address Organization Details Last Updated DateTime 5 71 /min 92 % 172.72 cm 18 /min 98.4 [degF] 886495. 272 g 131/78 mm[Hg] Not Available [facility] [...] ICD10 Code Diagnosis IMO Codes Diagnosis Note [id number] Reese Jarvis MD Main - [facility] [address] [place] [phone] 10/05/2024 14:55:01 10/07/2024 08:39:41 Wheezing [id number] R06.2 Health Concerns Section Related Observation LastModified by Organization Detai ls LastModified Time None Recorded Concern Status LastModified by Organization Details LastModified Time None Recorded Advance Directives Directive None Recorded Payers Insurance Date Sequence Insurance Name Policy Number Policy Parra Covered Member ID Parra Member ID Guarantor Name 10/05/2024 1 [facility] - DOS ON OR AFTER 2022 - DUAL ELIGIBLE - SKILLED NURSING OPTIONS AND ONE CARE (MEDICARE REPLACEMENT/ADV ANTAGE - HMO) Blaire Santosminnie Jean [id number] Blaire Maria Luisa Jean Notes Date Note Type Note Provider Name and Address Organization Details Recorded Time 10/05/2024 text/html HPI: Call returned to Blaire eJan to triage below. Reports having Headache, Fever, [...] advised of disposition, unable to come into [facility]. Agrees to [facility] for evaluation. Confirmed [...] any additional information to process this visit. Budget Record Clerk Organization Information for Ankita Castillo Business Legal Name: [employer]. Address: [address] [place] [address], Pressroom Foreman: Marino Dow MD CLIA No.: [id number] Budget Record Clerk POC Test Results from Ankita Castillo Rapid COVID antigen (14:56:21) COVID: - Rapid influenza antigen (14:56:24) Flu: - Rapid strep test (14:56:25) Strep: - .................. .................. .................. .................. .................. .................. .................. ............... Budget Record Clerk Note From Ankita Castillo: Sent to a call for a pt complaining of URI symptoms. [facility] arrives on scene, pt is alert and oriented, airway is patent. Pt complains of URI symptoms since Friday. Pt states she had chest tightness Friday-Friday, but was evaluated at [facility] ED on Friday. Pt states she had [...] administered; Lung sounds: clear bilaterally; SpO2:98% RA; [facility] consulted and sends script to pt's pharmacy for Albuterol neb solutions. Red flags discussed. Pt has no further questions. .................. .................. .................. .................. .................. .................. .................. ............... [facility] Consulted: Reese Jarvis .................. .................. .................. .................. .................. .................. .................. ............... Disposition: Fulfilled Reese Jarvis MD [address] [facility],[address], [place], [address], [place] 10/06/2024 15:39:31 OBGyn Episode No OBEpisode recorded.
--- OUTSIDE RECORDS SUMMARY | 2025-08-02 17:33 | XMS_ITS | Encounter Summary ---
Author Organization [employer] Address [address] [place] [address] [place] [address] Care Team Providers Care Rouge Mixer Name Role Phone Carmen Bertrand DO Primary Care Provider [phone] Encounter Details Date Type Department Care Team (Late st Contact Info) Description 09/09/2022 Orders Only [facility] MEDICINE [address] [place] [address] Azul Albrecht LPN Social History Tobacco Use [...] Description 09/07/2025 2:00 PM EST Clinical Support [facility] MEDICINE [address] [place] [phone] Jessica Conway, RULA documented as of this encounter Visit Diagnoses Not on filedocumented in this encounter Care Teams Rouge Mixer Relationship Specialty Start Date End Date Carmen Bertrand DO [address] [place] [address] PCP - General Family Medicine 08/18/18 documented as of this encounter
--- OUTSIDE RECORDS SUMMARY | 2025-08-02 17:33 | XMS_ITS | Encounter Summary ---
Author Organization [employer] Address [address] [place] [address] 7 [place] [address] Care Team Providers Care Bank Examiner Name Role Phone Carmen Bertrand DO Primary Care Provider + [phone] Reason for Visit * Reason Comments Med Refill Encounter Details Date Type Department Care Team ([facility] st Contact Info) Description 04/04/2025 Refill [facility] MEDICINE 230 [place], [place] [phone] Carmen Bertrand DO 230 [place], [place] [phone] Hypertension, unspecified type; Chronic low back pain, [...] Clinical Support [facility] MEDICINE [address] [place] [address] Jessica Conway RN documented as of this encounter Visit Diagnoses Diagnosis Hypertension, unspecified type Chronic low back pain, unspecified back pain laterality, unspecified whether sciatica present documented in this encounter Additional Health Concerns Assessment Noted Time PHQ-9 Depression Total Score: 22 024 11:00 AM EDT documented as of this encounter Care Teams Bank Examiner Relationship Specialty Start Date End Date Carmen Bertrand DO [address] [place] [address] PCP - General Family Medicine 08/18/18 documented as of this encounter
--- OUTSIDE RECORDS SUMMARY | 2025-08-02 17:33 | XMS_ITS | Encounter Summary ---
Author Organization [employer] Address [address] [place] [address] [place] [address] Care Team Providers Care Lay Out Inspector Name Role Phone Carmen Bertrand DO Primary Care Provider [phone] Encounter Details Date Type Department Care Team (Late st Contact Info) Description 08/13/2022 Orders Only [facility] CHC MED & PEDS [address] [place] [address] Carmen Perez LPN Social History Tobacco Use [...] 2:00 PM EST Clinical Support [facility] MEDICINE [address] [place] [address] Jessica Conway, RN documented as of this encounter Visit Diagnoses Not on filedocumented in this encounter Care Teams Lay Out Inspector Relationship Specialty Start Date End Date Carmen Bertrand DO [address] [place] [address] PCP - General Family Medicine 08/18/18 documented as of this encounter
--- OUTSIDE RECORDS SUMMARY | 2025-08-02 17:33 | XMS_ITS | Clinical Summary ---
Author Organization [employer] Address [address] [place] [address] 7 [place] [address] Care Team Providers Care Catering Barista Name Role Phone RajeevCarmen jones Primary Care Provider + [phone] Allergies Active Allergy Reactions Criticality Noted Date [...] 227 g 2 08/13/20 24 2024 Active hydroCHLOROthia zide 12.5 MG tablet Take 1 tablet by mouth Once per day. 07/26/20 24 Active ergocalciferol (Vitamin D2) 1.25 MG (51186 UT) capsule Take 1 capsule (1.25 mg) [...] BY MOUTH EVERY DAY 90 tablet 1 5 3:33 PM EST 04/05/20 25 Active topiramate 50 MG tabletIndicatio ns:Nonintractab le headache, unspecified chronicity pattern, unspecified headache type TAKE 1 TABLET BY MOUTH TWICE DAILY 60 tablet 5 5 3:33 PM EST 04/28/20 25 Active Aspirin Low Dose 81 MG EC tablet Take 1 tablet by mouth Once per day. 03/14/20 25 Active lisinopril 20 MG tablet Take 1 tablet by mouth Once per day. 03/14/20 25 Active baclofen (Lioresal) 10 MG tabletIndicatio ns:Chronic low back pain, unspecified back pain laterality, unspecified whether sciatica present Take 1 tablet (10 mg) by mouth if needed in the morning, at noon, and at bedtime for muscle spasms. 60 tablet 2 5 3:33 PM EST 06/07/20 25 Active naloxone (Narcan) 4 mg/0.1 mL nasal sprayIndication s:Chronic pain of both knees FOR SUSPECTED OPIOID OVERDOSE. SPRAY 0.1mL IN ONE NOSTRIL. REPEAT IN ALTERNATE NOSTRIL 2-3 MINUTES IF NEEDED. SEEK MEDICAL ATTENTION IMMEDIATELY EVEN IF PATIENT RESPONDS. 2 each 3 5 1:06 PM EST 10/23/20 25 Active Tirzepatide-Brandon ght Management (Zepbound) 12.5 MG/0.5ML solution auto-injector Inject 0.5 mL (12.5 mg) under the skin 1 (one) time per week. 2 mL 3 5 3:33 PM EST 07/08/20 Active docusate sodium (Colace) 100 MG [...] each day (constipation) . 527 g 3 11:28 AM EST 07/08/20 25 2025 Active metFORMIN XR (Glucophage-XR) 500 MG 24 hr tablet Take 2 tablets (1,000 mg) by mouth with evening meal. 180 tablet 3 5 3:33 PM EST 07/22/20 Active metroNIDAZOLE (Metrogel) 0.75 % gelIndications: Melasma APPLY TOPICALLY TO THE AFFECTED AREA(S) OF THE FACE EVERY DAY NEEDED 45 g 1 07/25/20 25 Active pantoprazole (Protonix) 40 MG EC tablet Take 1 tablet (40 mg) by mouth before breakfast. Do not crush, chew, or split. 90 tablet 3 5 3:08 PM EST 08/02/20 25 2025 Active traMADol (Ultram) 50 MG tabletIndicatio ns:Chronic low back pain, unspecified back pain laterality, unspecified whether sciatica present Take 1 tablet (50 mg) by mouth every 8 (eight) hours if needed for severe pain for up to 28 days. 84 tablet 5 3:08 PM EST 08/02/20 25 2025 Active metFORMIN XR (Glucophage-XR) 500 MG 24 hr tablet Take 2 tablets (1,000 mg) by mouth with evening meal. 180 tablet 3 08/13/20 24 2024 Discontinued(R eorder (will not trigger notification to Pharmacy)) senna-docusate (Senokot S) 8.6-50 MG tablet Take 1 tablet by mouth Once per day. 30 tablet 02/15/20 25 2024 Discontinued senna (Senokot) 8.6 MG tablet TAKE 1 TABLET BY MOUTH EVERY DAY 90 tablet 03/15/20 25 2024 Discontinued(R eorder (will not trigger notification to Pharmacy)) Tirzepatide (Mounjaro) 10 MG/0.5ML solution auto-injectorIn dications:Morbi d obesity with BMI of 50.0-59.9, adult (CMS/HCC) ([facility]) Inject 10 mg under the skin 1 (one) time per week. 2 mL 3 03/18/20 25 2024 Discontinued(D ose adjustment) metroNIDAZOLE (Metrogel) 0.75 % gelIndications: Melasma APPLY TOPICALLY TO THE AFFECTED AREA(S) OF THE FACE EVERY DAY NEEDED 45 g 1 5 1:06 PM EST 04/28/20 25 2024 Discontinued traMADol (Ultram) 50 MG tabletIndicatio ns:Chronic low back pain, unspecified back pain laterality, unspecified whether sciatica present Take 1 tablet (50 mg) by mouth every 8 (eight) hours if needed for severe pain for up to 28 days. Do not start before June 08, 2025. 84 tablet 06/08/20 25 2024 Discontinued(R eorder (will not trigger notification to Pharmacy)) pantoprazole (ProtoNix) 20 MG EC tablet TAKE 1 TABLET BY MOUTH EVERY DAY 30 MINUTES BEFORE A MEAL 05/03/20 25 2024 Discontinued(D ose adjustment) senna (Senokot) 8.6 MG tablet TAKE 1 TABLET BY MOUTH EVERY DAY 90 tablet 5 10:36 AM EST 07/05/20 25 2024 Discontinued traMADol (Ultram) 50 MG tabletIndicatio ns:Chronic low back pain, unspecified back pain laterality, unspecified whether sciatica present Take 1 tablet (50 mg) by mouth every 8 (eight) hours if needed for severe pain for up to 28 days. Do not start before July 06, 2025. 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 Morbid obesity with BMI of 50.0-59.9, adult ([facility]) 06/07/2025 Long-term current use of opiate analgesic [...] time Coronary arteriosclerosis 02/21/2023 BMI 50.0-59.9, adult ([facility]) 09/19/2022 06/07/2025 Class 3 severe obesity due [...] Encounters Date Type Department Care Team Description 08/02/2025 2:00 PM EST Clinical Support [facility] [address] [place] [phone] Lisa Rios, valet parker right shoulder pain (Primary Dx); Chronic low back pain, unspecified back pain laterality, unspecified whether sciatica present 08/02/2025 Travel 07/29/2025 Telephone [facility] [address] [place] [phone] Carmen Bertrand DO Nurse Triage 07/29/2025 Refill [facility] [address] [place] [address] Carmen Bertrand DO Chronic low back pain, unspecified back pain laterality, unspecified whether sciatica present 07/25/2025 Telephone [facility] [address] [place] [address] Carmen Bertrand DO telephone call 07/23/2025 Refill [facility] [address] [place] [address] Carmen Bertrand DO Melasma 07/22/2025 Refill [facility] [address] [place] [address] Carmen Bertrand DO 07/21/2025 Telephone [facility] [address] [place] [address] Carmen Bertrand DO Prior Authorization (DME: [facility] One Care Request); Durable Medical Equipment 07/18/2025 Telephone [facility] [place] [address] Carmen Bertrand DO Results 07/08/2025 11:45 AM EST Office Visit [facility] [place] [address] Carmen Bertrand DO Ischemic colitis ([facility]) (Primary Dx); Syncope, unspecified syncope type; Chronic constipation; Chronic right shoulder pain; Clavicle pain; Leukocytosis, unspecified type; Morbid obesity with BMI of 50.0-59.9, adult ([facility]) ([facility]); Encounter for immunization 07/05/2025 Refill [facility] [place] [phone] Jessica Conway RN Chronic low back pain, unspecified back pain laterality, unspecified whether sciatica present 07/05/2025 Refill [facility] [address] [place], [place] [phone] Carmen Bertrand DO 06/29/2025 Orders Only GENERIC EXTERNAL DATA DEPARTMENT Provider, Generic External Data 06/29/2025 Telephone [facility] [place] [phone] Carmen Bertrand DO Nurse Triage 06/29/2025 Telephone [facility] [place] [address] Carmen Bertrand DO ER Follow-up 06/08/2025 Refill [facility] [place] [phone] Catracho Barton MD Chronic pain of both knees 06/07/2025 Orders Only [facility] [place] [address] Carmen Bertrand DO 06/06/2025 Refill [facility] [place] [address] Carmen Bertrand DO Chronic low back pain, unspecified back pain laterality, unspecified whether sciatica present 06/01/2025 2:00 PM EDT Clinical Support [address] [address] Jessica Conway RN Long-term current use of opiate analgesic (Primary Dx) 06/01/2025 Travel 06/01/[address] [address] Carmen Bertrand DO Chronic low back pain, unspecified back pain laterality, unspecified whether sciatica present 05/31/[address] [address] Carmen Bertrand DO telephone call; Prior Authorization ([facility] [employer] Form: Zepbound) 05/10/[address] [address] Carmen Bertrand DO Prior Authorization ([facility] PA: Marimar) 05/10/[address] [address] Carmen Bertrand DO Med Refill 05/10/[address] [address] Carmen Bertrand DO Chronic low back pain, [...] 2:00 PM EST Clinical Support [facility] [address] [place] [phone] Jessica Conway, RN Health Maintenance Due Date [...] AM EST Narrative 07/11/2025 11:57 AM EST [address] [address] XRay Report Signed Patient: Blaire Quiroz MR#: [id number] : 1975 Acct:[id number] Age/Sex: 50 / F ADM Date: 07/11/25 Loc: ADALBERTO Attending Dr: Rosy Carrillo [employer] Ordering Physician: Carmen Bertrand DO Date of Service: 07/11/25 Procedure(s): XR clavicle LT Accession Number(s): [id number] cc: Carmen Bertrand DO Reason for Exam: [...] 07/11/25 1154 DD/ 1034 TD/TT: 07/11/25 1045 [employer] President [employer]: Procedure Note Donotuseinterpreter, Image - 07/11/2025 [place] [address] XRay Report Signed Patient: Blaire Quiroz#: M [id number] : 1975Acct:[id number] Age/Sex: 50 / FADM Date: 07/11/25 Loc: ADALBERTO Attending Dr: Rosy Carrillo [facility] Ordering Physician: Carmen Bertrand DO Date of Service: 07/11/25 Procedure(s): XR clavicle LT Accession Number(s): [id number] cc: Carmen Bertrand DO Reason for Exam: [...] MD Signed By: <Electronically signed by Marcus Lousi MD in OV> 07/11/25 1154 DD/ 1034 TD/TT: 07/11/25 1045 Vice President [employer] Communications: us Carmen Bertrand DO IMG XR PROCEDURES Final Resu lt * XR Clavicle Right (07/11/2025 10:31 AM EST) Anatomical Region Laterality Modality Body, Clavicle Right Radiographic Alejandrina ging 07/11/2025 10:3 1 AM EST Narrative 07/11/2025 11:57 AM EST [place] [address] XRay Report Signed Patient: Blaire Quiroz MR#: M [id number] : 1975 Acct:[id number] Age/Sex: 50 / F ADM Date: 07/11/25 Loc: ADALBERTO Attending Dr: Rosy Carrillo CNP Ordering Physician: Carmen Bertrand DO Date of Service: 07/11/25 Procedure(s): XR clavicle RT Accession Number(s): [id number] cc: Carmen Bertrand DO Reason for Exam: [...] 07/11/25 1154 DD/ 1031 TD/TT: 07/11/25 1045 [employer] President [employer]: Procedure Note Donotuseinterpreter, Image - 07/11/2025 [place] [address] XRay Report Signed Patient: Blaire QuirozMR#: M [id number] : 1975Acct:[id number] Age/Sex: 50 / FADM Date: 07/11/25 Loc: ADALBERTO Attending Dr: Rosy Carrillo [facility] Ordering Physician: Carmen Bertrand DO Date of Service: 07/11/25 Procedure(s): XR clavicle RT Accession Number(s): [id number] cc: Carmen Bertrand DO Reason for Exam: [...] 07/11/25 1154 DD/ 1031 TD/TT: 07/11/25 1045 [employer] President [employer]: us Carmen Bertrand DO IMG XR PROCEDURES Final Resu lt * FL Esophagus Barium Swallow w/Air (07/11/2025 10:25 AM EST) Anatomical Region Laterality Modality Head, Neck Radiographic Alejandrina ging 07/11/2025 10:2 5 AM EST Narrative 07/11/2025 11:56 AM EST [place] [address] Fluoroscopy Report Signed Patient: Blaire Quiroz MR#: M [id number] : 1975 Acct:[id number] Age/Sex: 50 / F ADM Date: 07/11/25 Loc: ADALBERTO Attending Dr: Rosy Carrillo CNP Ordering Physician: Rosy Carrillo CNP Date of Service: 07/11/25 Procedure(s): FL barium swallow with air Accession Number(s): [id number] cc: Carmen Bertrand DO; Rosy Carrillo CNP [...] by: Shamir Olmedo MD 07/11/2025 11:54 AM [facility] Dictated By: Shamir Olmedo MD Signed By: <Electronically signed by Shamir Olmedo MD in OV> 07/11/25 1154 DD/ 1025 TD/TT: 07/11/25 1055 Vice President [employer]: Procedure Note Donotuseinterpreter, Image - 07/11/2025 [place] [address] Fluoroscopy Report Signed Patient: Blaire Quiroz#: M [id number] : 1975Acct:[id number] Age/Sex: 50 / FADM Date: 07/11/25 Loc: ADALBERTO Attending Dr: Rosy Carrillo CNP Ordering Physician: Rosy Carrillo CNP Date of Service: 07/11/25 Procedure(s): FL barium swallow with air Accession Number(s): [id number] cc: Carmen Bertrand DO; Rosy Carrillo CNP [...] 07/11/25 1154 DD/ 1025 TD/TT: 07/11/25 1055 Vice President Corporate Communications: us [facility] External Provider IMG FLU OROSCOPY PROCEDURES Final Result * CT Abdomen Pelvis w/ Contrast (06/29/2025 7:48 PM EST) Anatomical Region Laterality Modality Body, Pelvis, Abdomen Computed T omography 06/29/2025 7:48 PM EST Narrative 06/29/2025 7:49 PM EST [address] [address] [address] Scan Report Signed Patient: Blaire Quiroz MR#: M [id number] : 1975 Acct:[id number] Age/Sex: 50 / F ADM Date: 06/29/25 Loc: HO.ED Attending Dr: Ordering Physician: Marco Lugo MD Date of Service: 06/29/25 Procedure(s): CT abdomen pelvis w IV con Accession Number(s): [id number] cc: Carmen Bertrand DO; Marco Lugo MD Report Number: [id number]: Total DLP = 1179.00 mGy-cm Reason for Exam: Left-sided abdominal pain, bloody stool CLINICAL HISTORY: Left-sided abdominal pain, bloody stool CT abdomen and pelvis with contrast Comparison: CT/REG/MI/SR - CT ABDOMEN PELVIS WITHOUT IV CONTRAST [...] in OV> 06/29/251948 DD/ 47 TD/TT: 06/29/251947 Vice President [employer]: Procedure Note Donotuseinterpreter, Image - 06/29/[address] [place] [address] [address] Scan Report Signed Patient: Blaire Quiroz#: M [id number] : 1975Acct:[id number] Age/Sex: 50 / FADM Date: 06/29/25 Loc: HO.ED Attending Dr: Ordering Physician: Marco Lugo MD Date of Service: 06/29/25 Procedure(s): CT abdomen pelvis w IV con Accession Number(s): [id number] cc: Carmen Bertrand DO; Marco Lugo MD Report Number: [id number]: Total DLP = 1179.00 mGy-cm Reason for Exam: Left-sided abdominal pain, bloody stool CLINICAL HISTORY: Left-sided abdominal pain, bloody stool CT abdomen and pelvis with contrast Comparison: CT/REG/MI/SR - CT ABDOMEN PELVIS WITHOUT IV CONTRAST [...] in OV> 06/29/251948 DD/ 47 TD/TT: 06/29/251947 Vice President Corporate Communications: [facility] External Provider IMG CT PROCEDURES Final Result * (ABNORMAL) Urinalysis, Complete, with Reflex to Culture (06/29/2025 6:18 PM EST) Color Urine Dark Yellow [facility] Appearance Urine Clear [facility] PH 6.0 5.0 - 9.0 [facility] Glucose Urine UA Negative Negative mg/dL [facility] Urine Blood Negative Negative [facility] Specific [place] - Urine 1.025 1.005 - 1.025 [facility] Urine Protein 30 (1+)(A) Neg-Trace mg/dL [facility] Urine Ketones Trace Negative mg/dL [facility] Nitrite Urine Negative Negative [facility] Leukocyte Esterase Urine Trace(A) Negative [facility] RBC Urine 0-2 0 - 2 /HPF [facility] Urine WBC 0-5 0 - 5 /HPF [facility] Urine Squamous Epithelial Cell 3-5 0 - 2 /HPF [facility] Urine Bacteria Trace None Seen [facility] Hyaline Casts, Urine 6-10 0 - 2 /LPF [facility] 06/29/2025 6:18 PM EST 06/29/2025 6:21 PM EST Narrative [facility] - 06/29/2025 6:38 PM EST Urine, Clean Catch us Generic External Data Provider LAB URINE ORDERAB LES Final Result [facility] [address] [place] [phone] * (ABNORMAL) CBC auto differential (06/29/2025 5:29 PM EST) White Blood Count 11.8(H) 4.8 - 10.8 X10*3/uL [facility] Red Blood Count 4.53 4.20 - 5.50 X10*6/uL [facility] Hemoglobin 14.1 12.0 - 16.0 g/dl [facility] Hematocrit 43.0 37.0 - 47.0 % [facility] Mean Corpuscular Volume 94.9 80.0 - 98.0 fL [facility] Mean Corpuscular Hemoglobin 31.1 27.0 - 33.0 pg [facility] Mean Corpuscular HGB Conc 32.8 31.0 - 35.0 g/dl [facility] Red Cell Distribution Width 14.1 11.0 - 16.0 % [facility] Platelet Count 265 160 - 400 X10*3/uL [facility] Mean Platelet Volume 9.5 9.4 - 12.3 fL [facility] Neutrophils Percent Auto 58.4 45 - 73 % [facility] Imm Gran Pct Auto 0.4 0.0 - 0.4 % [facility] Lymphocytes Percent Auto 31.4 20 - 40 % [facility] Monocytes Percent Auto 7.4 2 - 11 % [facility] Eosinophils Percent Auto 2.0 0 - 4 % [facility] Basophils Percent Auto 0.4 0 - 2 % [facility] NRBC Pct Auto 0.0 0.0 - 0.2 /100WBC [facility] Neutrophils Absolute Auto 6.9 2.0 - 8.3 x10*3/uL [facility] Imm Gran Abs Auto 0.05(H) 0.00 - 0.03 X10*3/uL [facility] Lymphocytes Absolute Auto 3.7 1.2 - 4.9 X10*3/uL [facility] Monocytes Absolute Auto 0.9 0.1 - 1.2 X10*3/uL [facility] Eosinophils Absolute Auto 0.2 0.0 - 0.4 X10*3/uL [facility] Basophils Absolute Auto 0.1 0.0 - 0.2 X10*3/uL [facility] NRBC Abs Auto 0.000 0.0 - 0.012 X10*3/uL [facility] 06/29/2025 5:29 PM EST 06/29/2025 5:33 PM EST Generic External Data Provider LAB BLOOD ORDERAB LES Final Result Performing Organization Address City/[facility]/ZIP Co de Phone Number [facility] [address] [place] [phone] * (ABNORMAL) C-reactive Protein (06/29/2025 5:29 PM EST) C Reactive Protein 3.29(H) < or = 0.50 mg/dL [facility] 06/29/2025 5:29 PM EST 06/29/2025 5:33 PM EST Generic External Data Provider LAB BLOOD ORDERAB LES Final Result Performing Organization Address City/[facility]/ZIP Co de Phone Number [facility] [address] [place] [phone] * Magnesium (06/29/2025 5:29 PM EST) Magnesium 2.0 1.6 - 2.6 mg/dL [facility] 06/29/2025 5:29 PM EST 06/29/2025 5:33 PM EST Generic External Data Provider LAB BLOOD ORDERAB LES Final Result Performing Organization Address City/[facility]/ZIP Co de Phone Number [facility] [address] [place] [phone] * Lipase (06/29/2025 5:29 PM EST) Lipase 11 8 - 78 U/L [facility] 06/29/2025 5:29 PM EST 06/29/2025 5:33 PM EST Generic External Data Provider LAB BLOOD ORDERAB LES Final Result Performing Organization Address [facility] de Phone Number [facility] [address] [place] [phone] * (ABNORMAL) Comprehensive Metabolic Panel (06/29/2025 5:29 PM EST) Sodium 142 135 - 145 mmol/L [facility] Potassium 3.8 3.3 - 5.1 mmol/L [facility] Chloride 110(H) 96 - 108 mmol/L [facility] Carbon Dioxide 27 22 - 29 mmol/L [facility] Anion Gap 9(L) 12 - 20 [facility] Urea Nitrogen (BUN) 17(H) 9 - 16 mg/dL [facility] Creatinine, Serum 1.17 0.5 - 1.4 mg/dL [facility] Creatinine Clr Calc Pharmacy 89.6 [facility] Comment:Provided height and weight: 172.72 cm,148.2 kg.eGFR (calculated from the MDRD study equation) and eCrCl(calculated from the Cockcroft-Gault equation) are based ondifferent parameters and may not yield comparable results.If eCrCl result is absurd, please check patient'sheight/weight. Estimated Glomerular Filt Rate 49 [facility] Comment:Chronic Kidney Disea se: Estimated GFR < 60 mL/min/1.51e7Drklzs Kidney Disease: Estimated GFR < 15 mL/min/1.73m2 Glucose 100 60 - 115 mg/dL [facility] Calcium 9.5 8.4 - 10.2 mg/dL [facility] Bilirubin, Total 0.6 0.0 - 1.0 mg/dL [facility] Aspartate Amino Transferase 24 5 - 31 U/L [facility] Alanine Aminotransferase 22 0 - 31 U/L [facility] Total Protein 7.3 6.5 - 8.0 g/dL [facility] Albumin Level 3.8 3.5 - 5.0 g/dL [facility] Alkaline Phosphatase 110 39 - 117 U/L [facility] 06/29/2025 5:29 PM EST 06/29/2025 5:33 PM EST us Generic External Data Provider LAB BLOOD ORDERAB LES Final Result Performing Organization Address City/State/[facility] Co de Phone Number [facility] [address] [place] [phone] * BI Mammogram Screening Tomosynthesis Bilateral (06/07/2025 3:00 PM EDT) Anatomical Region Laterality Modality Breast Bilateral Mammography 06/07/2025 3:00 PM EDT Narrative 06/10/2025 11:46 AM EDT [facility] [address] [place] [address] Mammography Report Signed with Tracy Patient: Blaire Quiroz MR#: M [id number] : 1975 Acct:[id number] Age/Sex: 50 / F ADM Date: 06/07/25 Loc: HOGeorgiMAMMO Attending Dr: Carmen Bertrand DO Ordering Physician: Carmen Bertrand DO Results: 0I ncomplete- Need Additional Imaging Evaluation Date of Service: 06/07/25 Follow Up: Additional Imagi ng Procedure(s): MM tomosynthesis screening BI Accession Number(s): [id number] cc: Carmen Bertrand Reason For Exam: Z12.31 ADDENDUM ADDENDUM #1 [...] 06/10/25 1143 DD/ 99 TD/TT: 06/07/25 1530 Vice President Corporate Communications: Procedure Note Donotuseinterpreter, Image - 06/20/2025 Aleksander [facility] [address] [place]ijo, [place] [address] Mammography Report Signed with Addenda Patient: Christianne Quiroz#: M [id number] : 1975Acct:[id number] Age/Sex: 50 / FADM Date: 06/07/25 Loc: HO.MAMMO Attending Dr: Carmen Bertrand DO Ordering Physician: Carmen Bertrandults: 0I ncomplete- Need Additional Imaging Evaluation Date of Service: 06/07/25Follow Up: Additional Imagi ng Procedure(s): MM tomosynthesis screening BI Accession Number(s): [id number] cc: Carmen Bertrand DO Reason For Exam: [...] depth retroareolar region on cc view image 2/. No suspicious calcifications or other abnormal findings. [...] 06/10/25 1143 DD/ 1500 TD/TT: 06/07/25 1530 Vice President Corporate Communications: Carmen Bertrand DO IMG BI PROCEDURES Edited [...] - 06/01/2025 2:10 PM EDT [employer] cup Lot#[id number] Exp. 05/24/26 Internal Pass Control Carmen Bertrand DO POINT OF CARE TEST ENTER/LANEY T ORDERABLES Final Result * (ABNORMAL) Cologuard?? colon cancer screening (08/31/2024 10:33 AM EST) Cologuard Result Positive( A) Negative 09/07/2024 10:16 AM EST [facility] (CLIA #:[id number]) Comment: POSITIVE TEST RESULT. A positive Cologuard [...] (Ashleigh Zhou al, N Engl J Med 2014;370(14):6492-8346.) Cologuard may produce a false negative or false positive result (no colorectal cancer or precancerous polyp present at colonoscopy follow up). A negative Cologuard test result does not guarantee the absence of CRC or advanced adenoma (pre-cancer). The current Cologuard screening interval is every 3 years. ([place] [employer] and U.S. Multi-Society Task Force). Cologuard performance data in a 10,000 patient pivotal study using colonoscopy as the reference method can be accessed at the following location: [email or web address]. Additional description of the Cologuard test process, warnings and precautions can be found at [email or web address]. Stool specimen (specimen) 08/31/2024 10:33 AM EST 09/01/2024 11:06 AM EST Carmen Elza [facility] MOLECULAR DIAGNOSTICS OR DERABLES Final Result [employer] (CLIA #:[id number]) [place] [address] [place] [address], * Hemoglobin A1c (08/24/2024 11:57 AM EST) Hemoglobin A1c 6.0 <6.0 % [facility] Comment:Hemoglobin A1C Refer ence Range Adults: 4.8 - 6.0 % Non diabetic: < 6.0 % Goal: < 7.0 %Additional Action Suggested: > 8.0 %Note: Hemoglobin A1c results are invalid for patients with abnormal amounts of HbF. Blood transfusions may impact the HbA1c concentration in the patient sample. Estimated Average Glucose 126 mg/dL [facility] Comment:eAG = Estimated ave rage glucose which is %A1C expressed asaverage glucose, using the formula of the P0Z-CxomunaQdlibhe Glucose study (ADAG), Diabetes Care, Vol.31,#8,Mar. 2007 Blood Venous blood specimen / Unknown 08/24/2024 11:57 AM EST 08/24/2024 1:03 PM EST Carmen Elza [facility] BLOOD ORDERABLES Final R esult Performing Organization Address City/[facility]/ZIP Co de Phone Number [facility] [address] [place] [phone] * (ABNORMAL) Lipid Panel, Standard (08/24/2024 11:57 AM EST) Triglycerides 82 <150 mg/dL [facility] Comment:Desirable Triglyceri de: less than 150 mg/dLBorderline High Triglyceride 150-199 mg/dLHigh Triglyceride: 200-499 mg/dLVery High Triglyceride: greater than or equal to 5OO mg/dL Cholesterol 136 <200 mg/dL [facility] Comment:Desirable Cholestero l: less than 200 mg/dLBorderline High Cholesterol: 200-239 mg/dLHigh Cholesterol: greater than 239 mg/dL LDL Cholesterol Calculated 81 <100 mg/dL [facility] Comment:Desirable LDL: less than 100 mg/dLNear Optimal/Above Optimal LDL: 110- 129 mg/dLBorderline High LDL: 130-159 mg/dLHigh LDL: 160-189 mg/dLVery High LDL: greater than or equal to 190 mg/dL HDL Cholesterol 39(L) >40 mg/dL [facility] Comment:Desirable HDL: great er than 40 mg/dL Note: This HDL assay may give artificially low results in patients with liver disease. Blood Venous blood specimen / Unknown 08/24/2024 11:57 AM EST 08/24/2024 1:03 PM EST Carmen Bertrand LAB BLOOD ORDERABLES Final R [facility] Performing Organization Address [facility]/ZIP Co de Phone Number [facility] [address] [place] [address] [phone] * Hepatitis C Antibody with Reflex to HCV, RNA, Quantitative, Real-Time PCR (04/27/2024 2:02 PM EDT) Hepatitis C Antibody Nonreactive Nonreactive [facility] Comment:Antibodies to HCV no t detected; does not exclude early acuteHCV infection. Blood Venous blood specimen / Unknown 04/27/2024 2:02 PM EDT 04/27/2024 4:01 PM EDT Carmen Bertrand LAB BLOOD ORDERABLES Final R esult Performing Organization Address [facility]/ZIP Co de Phone Number [facility] [address] [place] [address] [phone] * HIV Ab/Ag (BHAVIN MCKEON) (02/21/2023 2:35 PM EDT) HIV AB/AG Nonreactive Nonreactive [facility] Comment:HIV-1 p24 Ag and/or HIV-1/HIV-2 Ab not detected.A test result that is nonreactive does not exclude thepossibility of exposure to or infection with HIV-1 and/orHIV-2. Nonreactive results in this assay for individualswith prior exposure to HIV-1 and/or HIV-2 may be due toantigen and antibody levels that are below the limit ofdetection of this assay.The [employer] HIV Ag/Ab Combo assay result andsupplemental assay results should be interpreted inconjunction with the patient's clinical presentation,history and other laboratory results. If the results areinconsistent with clinical evidence, additional testing issuggested to confirm the result. 02/21/2023 2:35 PM EDT 02/21/2023 2:37 PM EDT [facility] External Provider LAB BLO OD ORDERABLES Final Result [facility] [address] [place] [address] [phone] from Last 3 Months or Most Recently Relevant to Health Maintenance Insurance [facility] < [address] [place] [id number] Care Teams Catering Barista Relationship Specialty Start Date End Date Carmen Bertrand DO [address] [place] [phone] PCP - General Family Medicine 08/18/18
--- OUTSIDE RECORDS SUMMARY | 2025-08-02 17:33 | XMS_ITS | Encounter Summary ---
Author Organization [employer] Address [address] [place] [address] [place] [address] Care Team Providers Care Mold Maker Helper Name Role Phone Carmen Bertrand DO Primary Care Provider + [phone] Reason for Visit * Reason Onset Date Comments ER Follow-up 06/29/2025 Encounter Details Date Type Department Care Team ([facility] st Contact Info) Description 06/29/2025 Telephone [facility] [address] [place] [address] Carmen Bertrand DO [address] [place], [place] [phone] ER Follow-up Social History Tobacco Use Types [...] ED visit on : Date: 06/28 Hospital: [facility] Seen for: Dizziness/ almost fainted Symptomatic No *if yes message should go to Triage Patient advised will forward to team nurse for follow up documented in this encounter Plan of Treatment Upcoming Encounters Date Type Department Care Team (Late st Contact Info) Description 09/07/2025 2:00 PM EST Clinical Support [facility] [address] [place] [address] Jessica Conway, RULA documented as of this encounter Visit Diagnoses Not on filedocumented in this encounter Additional Health Concerns Assessment Noted Time PHQ-9 Depression Total Score: 22 024 11:00 AM EDT documented as of this encounter Care Teams Mold Maker Helper Relationship Specialty Start Date End Date Carmen Bertrand DO [address] [place] [address] PCP - General Family Medicine 08/18/18 documented as of this encounter
--- OUTSIDE RECORDS SUMMARY | 2025-08-02 17:33 | XMS_ITS | Encounter Summary ---
Author Organization [employer] Address [address] [place] [address] [place] [address] Care Team Providers Care Overseer Kosher Kitchen Name Role Phone Carmen Bertrand DO Primary Care Provider + [phone] Reason for Visit * Reason Onset Date Comments Hospital Follow-up 11/12/2024 Encounter Details Date Type Department Care Team ([facility] Contact Info) Description 11/12/2024 Telephone [facility] [address] [place] [address] Carmen Bertrand DO [address] [place], [place] [phone] Hospital Follow-up Social History Tobacco Use Types [...] pt requesting a HDF appt. [facility]: [facility] Date of admission: 11/07/2024 Discharge date: 11/12/2024 Diagnosed: heart attack *Send message to [place] Clinical Care Coordinators documented in this encounter Plan of Treatment Upcoming Encounters Date Type Department Care Team (Late st Contact Info) Description 09/07/2025 2:00 PM EST Clinical Support [facility] [address] [place] [address] Jessica Conway, RULA documented as of this encounter Visit Diagnoses Not on filedocumented in this encounter Additional Health Concerns Assessment Noted Time PHQ-9 Depression Total Score: 22 024 11:00 AM EDT documented as of this encounter Care Teams Overseer Kosher Kitchen Relationship Specialty Start Date End Date Carmen Bertrand DO [address] [place] [address] PCP - General Family Medicine 08/18/18 documented as of this encounter
--- OUTSIDE RECORDS SUMMARY | 2025-08-02 17:33 | XMS_ITS | Encounter Summary ---
Author Organization [employer] Address [address] [facility] 7 [place] [address] Care Team Providers Care Manager Completions Name Role Phone Carmen Bertrand DO Primary Care Provider + [phone] Reason for Visit * Reason Comments Med Refill Encounter Details Date Type Department Care Team (Late st Contact Info) Description 03/16/2024 Refill [facility] [address] [place], [place] [phone] Carmen Bertrand DO [address] [place] [address] Chronic low back pain, unspecified back pain [...] EST Clinical Support [facility] [address] [place] [address] Jessica Conway, RULA documented as of this encounter Visit Diagnoses Diagnosis Chronic low back pain, unspecified back pain laterality, unspecified whether sciatica present documented in this encounter Additional Health Concerns Assessment Noted Time PHQ-9 Depression Total Score: 21 023 11:26 AM EST documented as of this encounter Care Teams Manager Completions Relationship Specialty Start Date End Date Carmen Bertrand DO [address] [place] [address] PCP - General Family Medicine 08/18/18 documented as of this encounter
--- OUTSIDE RECORDS SUMMARY | 2025-08-02 17:33 | XMS_ITS | Encounter Summary ---
Author Organization [employer] Address [address] [facility] 7 [place] [address] Care Team Providers Care Label Folder Name Role Phone Carmen Bertrand DO Primary Care Provider + [phone] Reason for Visit * Reason Comments Med Refill Encounter Details Date Type Department Care Team (Late st Contact Info) Description 05/12/2024 Refill [facility] [address] [place], [place] [phone] Carmen Bertrand DO [address] [place] [address] Chronic low back pain, unspecified back pain [...] 09/07/2025 2:00 PM EST Clinical Support [facility] [address] [place] [address] Jessica Conway RN documented as of this encounter Visit Diagnoses Diagnosis Chronic low back pain, unspecified back pain laterality, unspecified whether sciatica present documented in this encounter Additional Health Concerns Assessment Noted Time PHQ-9 Depression Total Score: 22 024 11:00 AM EDT documented as of this encounter Care Teams Label Folder Relationship Specialty Start Date End Date Carmen Bertrand DO [address] [place] [address] PCP - General Family Medicine 08/18/18 documented as of this encounter
--- OUTSIDE RECORDS SUMMARY | 2025-08-02 17:33 | XMS_ITS | Encounter Summary ---
Author Organization [employer] Address [address] [place] [address] 7 [place] [address] Care Team Providers Care Child Therapist Name Role Phone RajeevCarmen jones Primary Care Provider + [phone] Reason for Visit * Reason Comments Med Refill Encounter Details Date Type Department Care Team ([facility] st Contact Info) Description 02/03/2023 Refill [facility] [address] [place] [address] Leticia Ramirez MD [address] [place], [place] [phone] Nonintractable headache, unspecified chronicity pattern, unspecified headache [...] Description 09/07/2025 2:00 PM EST Clinical Support [facility] [address] [facility] [place] [address] Jessica Conway RN documented as of this encounter Visit Diagnoses Diagnosis Nonintractable headache, unspecified chronicity pattern, unspecified headache type documented in this encounter Additional Health Concerns Assessment Noted Time PHQ-9 Depression Total Score: 16 023 12:22 PM EST documented as of this encounter Care Teams Child Therapist Relationship Specialty Start Date End Date Carmen Bertrand DO [address] [place] [address] PCP - General Family Medicine 08/18/18 documented as of this encounter
== END 2025-05-27 10:01 | disposition home or self-care (01) ==
LOC: HO.RHESR 10:00
PROVIDERS: Visit Provider Student in an Organized Health Care Education/Training Program
DX: Z13.89 Encounter for screening for other disorder (principal)

== ENCOUNTER → 2025-05-27 15:03 | Outpatient (AMB) | payer OTHER, SELFPAY ==
[2025-01-27 10:17] VITALS: BP 128/72; BP 140/60; BP 148/88; BMI 63.7
--- NOTE | 2025-05-27 15:07 | A.OFFVIS_ITS ---
Vital Signs 05/27/25 15:08 Height 5 ft 8 in Weight 342 lb 9.573 oz BMI 52.1 BP 140/80 H Blood Pressure Location Rt brachial Position Sitting Pulse 56 Pulse Source Pulse Oximeter Pulse Oximetry (%) 98 Oxygen Delivery Method Room Air Intake Visit Reasons: US GUIDED ASP inj Intmd joint RT Intake Note: Patient presents today for ultrasound guided aspiration Intmd joint, Right. Bag Bundler Required: Yes Bag Bundler Name: mohsen Information Interpreted: non-clinical & clinical Concrete Paving Machine Operator: Concrete Paving Machine Operator Present Accompanied by: Daughter Allergies penicillin G (PENICILLIN G) Allergy (Severe, Verified 04/13/25 11:17) DIFFICULTY BREATHING semaglutide (From Ozempic) Adverse Reaction (Severe, Verified 04/13/25 11:17) Stomach Upset Medication List - Last Reconciled 05/27/25 by Sonia Campos MD albuterol sulfate 90 mcg/actuation (Ventolin HFA) 2 puffs PO Q4-6H PRN albuterol sulfate 2.5 mg inhalation Q4-6H PRN allopurinol 100 mg PO DAILY 90 days amlodipine (Norvasc) 5 mg PO DAILY aspirin 81 mg PO DAILY atorvastatin (Lipitor) 80 mg PO BEDTIME benzoyl peroxide 10% 1 appl topical DAILY blood pressure test kit-large As directed cholecalciferol (vitamin D3) 50 mcg PO DAILY clopidogrel 75 mg PO DAILY doxycycline hyclate 100 mg PO BID econazole nitrate 1% 1 appl topical BID emtricitabine-tenofovir (TDF) 200-300 mg 1 tab PO DAILY ezetimibe 10 mg PO DAILY famotidine 40 mg PO BEDTIME PRN fluticasone propionate 50 mcg/actuation 2 sprays intranasal DAILY fluticasone propionate 110 mcg/actuation 2 puffs inhalation BID hydrochlorothiazide 12.5 mg PO DAILY hydroquinone 4% 1 appl topical BID isosorbide mononitrate ER 60 mg PO DAILY lisinopril 20 mg PO DAILY metformin ER 500 mg PO DAILY@1700 metoprolol succinate ER 50 mg PO DAILY metronidazole 0.75% 1 appl topical DAILY PRN nitroglycerin 0.4 mg sublingual Q5M PRN pantoprazole 20 mg PO DAILY pyridoxine (vitamin B6) 100 mg PO DAILY 90 days tirzepatide (weight loss) (Zepbound) mg subcut QWEEK topiramate 50 mg PO BID tramadol 50 mg PO Q8H PRN HPI Comments Details: Patient is a 50-year-old female hypertension, hyperlipidemia c/b CAD, HIV on ARVs, hidradenitis suppurativa, diabetes complicated by gastroparesis, GERD complicated by Delgado's esophagus, polyarticular osteoarthritis here today for follow up Interval History: Patient last seen 04/13/25 with wv - New patient visit for evaluation of polyarthralgias in the setting of joint pain - No evidence of synovitis - Exam and history consistent with OA - Given steroid injection to right AC joint Today - Not on any rheum medications - Right shoulder improved after injection - Complaining of right outer and groin pain, worse when walking and standing Rheumatologic History: Initial History: Patient is a 50-year-old female hypertension, hyperlipidemia c/b CAD, HIV on ARVs, hidradenitis suppurativa, diabetes complicated by gastroparesis, GERD complicated by Delgado's esophagus, polyarticular osteoarthritis here today for evaluation of positive RF in the setting of polyarthralgias Patient has been having polyarthralgias for several years and has been evaluated by ortho of the departments. Denies prolonged morning stiffness or joint swelling No known family history of rheumatoid arthritis Currently complaining of knee pain, which she throughout got steroid injections a few weeks ago and this is improved, shoulder pain and hip pain Current Rheumatology Medication(s): COUNTS INCLUDE 234 BEDS AT [facility] Medical History (Updated 04/13/25 @ 14:16 by Sonia Campos MD) Polyarticular osteoarthritis Tubular adenoma of colon Delgado esophagus Morbid obesity Hidradenitis suppurativa CAD (coronary artery disease) Subsequent non-ST elevation myocardial infarction (NSTEMI) within 4 weeks of initial infarction Non-ST elevation NV (NSTEMI) YAMILETH on CPAP Hyperlipidemia PTSD (post-traumatic stress disorder) Fatty liver Smoker Depression Obesity Leukocytosis Frequent UTI Asthma Mass of throat Chronic pain Kidney stone Migraine HTN (hypertension) Surgical History History of esophagogastroduodenoscopy (EGD) H/O excision of mass (06/28/24) Hx of cystoscopy Stented coronary artery History of heart artery stent History of lumpectomy of left breast (10/22/21) History of lithotripsy History of endometrial ablation Hx of colonoscopy History of breast lump/mass excision History of tonsillectomy H/O: hysterectomy Family History Father Hypertension Mother Hypertension Osteoporosis Hx of bilateral cataract extraction Paternal Grandmother Diabetes Sister Asthma Maternal Uncle Throat cancer Maternal Aunt Ovarian cancer Breast cancer Social History Household Members: Family Housing: Apartment Are you a primary floor care technician to a significant other at home: No Do you presently have visiting nurse or other home services: No Alcohol intake: never Comment: pt refusing alarms Patient Tobacco Use Status: Current everyday Tobacco user Tobacco use type: Cigarette Cigarette Packs Per Day: 0.5 Cigarettes Per Day: 10 Years Smoked: 30 e-Cigarette/Vaping Use: Never Used Second Hand Smoke Exposure: No Advance Directives Date on File: 10/28/22 service: No Current occupational status: unemployed and retired Review of Systems Const Details: Review of Systems Constitutional: Denies fever, chills, weight loss ENT: Denies vision changes, eye pain or eye redness, dental caries, dry mouth GI: Denies nausea, vomiting, diarrhea, abdominal pain, change in BM Pulm: Denies SOB, MENARD, hemoptysis, wheezing Cards: Denies chest pain, palpitations Skin: Denies Raynaud's, rash, nail changes, photosensitivity, CASHIER AND WAITER/WAITRESS: Denies headaches, weakness, paresthesias, recurrent falls MSK: as per HPI All other systems reviewed and are unremarkable except noted above Physical Exam Exam Exam: Vital signs reviewed Physical Examination CONSTITUITIONAL Patient alert and cooperative. Well appearing and in no apparent painful distress MSK Hips * Right hip: Good ROM. Pain elicited with hip flexion and internal rotation * Left hip: Good ROM. No pain elicited with hip flexion/internal rotation/external rotation Hip bursa: TTP bilaterally Vital Signs: Last Vital Signs Pulse 56 05/27/25 15:08 BP 140/80 H 05/27/25 15:08 Pulse Ox 98 05/27/25 15:08 Oxygen Delivery Method Room Air 05/27/25 15:08 BMI result Body Mass Index 52.1 Office Procedures AMB Joint Injection/Aspiration Joint Injection/Aspiration Details: Date: 05/27/25 Study Type: Limited Ultrasound with Guidance of needle placement Indication: Right groin pain Study Site: Right Hip Equipment: Vitryn Findings: Orthogonal views of the dorsal aspect of the right hip were obtained in grayscale and Doppler. Anterior longitudinal view of the right hip revealed the femoral head and femoral neck as well as the joint recess. No fluid seen. Procedure: Procedure was explained to the patient and informed consent was obtained for ultrasound-guided glucocorticoid injection of the right hip Risks associated with the procedure were discussed with the patient including but not limited to bleeding, infection, drug reactions and reactions to the topical anesthetic. Patient made aware of signs to look out for infectious complications. The right hip was sterilely prepped with chlorhexidine and anesthetized with lidocaine spray. A 22 gauge 3.5 in needle was advanced into the right joint recess under direct ultrasound visualization using in plane technique. After placing the needle and removing the stylus there was a slow flow of blood which was concerning for small vein cannulation. The needle was removed and pressure was applied. Repeat visualization of the hip noted increased vasculature over the joint recess that was not related to the femoral artery or vein which was visualized medially Procedure abandoned Impressions: Patient had highly vascular right hip likely secondary to her oa and increase inflammation in the area. Injection abandoned due to inability to safely inject Right greater trochanteric bursa Procedure was explained to the patient and informed consent was obtained. ? Risks associated with the procedure were discussed with the patient including but not limited to bleeding, infection, drug reactions and reactions to the topical anesthetic. Patient made aware of signs to look out for infectious complications. The area of interest was identified and confirmed with patient. ?This was subsequently cleaned with chlorhexidine x 2. ? The area was then anesthetized using ethyl chloride spray. 60 mg Kenalog injected without issue. ?Minimal to no bleeding. ?Patient tolerated procedure. Prep: site was prepped using aseptic technique and ethochloride spray was applied Injected: 60 mg of and Kenalog Procedure: The patient tolerated the procedure well Coding 61446 - Glenohumeral/Tronchanteric Bursa/Intraarticular Additional procedure code (CPT) needed (09739, limited US ) Office Meds lidocaine (PF) 10 mg/mL (1 %) injection solution Performing Provider: Sonia Campos MD Performing Location: [facility] Rheumatology-[facility] Administered by: Jennifer Bueno RN on 05/27/25 16:33 Dose Route Admin Location Dispensed Lot Number Expiration Date [facility] Die Setter 2 mL Infiltration right hip 2 mL [id number] 01/15/27 42622-758-28 [employer] Total Dispensed Waste 2 mL 0 % Kenalog 40 mg/mL suspension for injection Performing Provider: Sonia Campos MD Performing Location: [facility] Rheumatology-[facility] Administered by: Jennifer Bueno RN on 05/27/25 16:33 Dose Route Admin Location Dispensed Lot Number Expiration Date [facility] Die Setter 60 mg intra-bursal right hip 2 mL [id number] 02/14/27 [address]-0 AM [employer] Total Dispensed Waste 2 mL 25 % Results Reviewed Results Reviewed: Laboratory Tests 04/05/25 04:34 WBC 11.6 H RBC 4.07 L Hgb 12.9 Hct 38.1 Plt Count 288 Sodium 141 Potassium 3.6 Chloride 109 H Carbon Dioxide 22 BUN 16 Creatinine 0.87 AST 22 ALT 14 Laboratory Tests 09/17/24 11:45 Rheumatoid Factor 28.2 H REBECCA Screen POSITIVE A REBECCA Titer 1:40 H XR Right Hip 08/2024 Findings: No acute fracture or dislocation. No significant arthritic change. The soft tissues are unremarkable. IMPRESSION: No acute findings. Assessment & Plan Assessment & Plan (1) Osteoarthritis of right hip: Code(s): M16.11 - Unilateral primary osteoarthritis, right hip Qualifiers: Osteoarthritis type: primary Qualified Code(s): M16.11 - Unilateral primary osteoarthritis, right hip Plan: #Right hip OA Patient is a 50-year-old female with polyarticular osteoarthritis here today complaining of right groin pain. Exam consistent with osteoarthritis of the right hip. Ultrasound confirmed this however the ultrasound procedure had to be abandoned due to increased vascularity of the joint recess. She was subsequently given a right greater trochanteric bursa steroid injection Plan - s/p right greater trochanteric steroid injection - RTC for left hip evaluation Plan I spent 20 minutes reviewing the record and labs, taking a history, examining the patient, discussing the treatment plan, and documenting in the medical record Orders: Orders AMB Joint Injection/Aspiration 05/27/25 M16.11 - Unilateral primary osteoarthritis, right hip Coding Level of Care Code Est Pt Level 3 (63230) Diagnoses Primary osteoarthritis of right hip M16.11 Osteoarthritis type: primary CPT Codes Coding - Joint 7: 65765 - Glenohumeral/Tronchanteric Bursa/Intraarticular ([id number])
[2025-05-27 15:08] VITALS: BP 140/80; PULSE 56; O2SAT 98; BMI 52.1
== END ==
LOC: HO.RHES 15:03
PROVIDERS: PCP Family Medicine; Visit Provider Student in an Organized Health Care Education/Training Program
DX: M16.11 Unilateral primary osteoarthritis, right hip (principal)
CPT/HCPCS: 20611; 99213

== ENCOUNTER → 2025-05-27 15:03 | Outpatient (BNVA) | payer OTHER, SELFPAY ==
[2025-01-27 10:17] VITALS: BP 128/72; BP 140/60; BP 148/88; BMI 63.7
== END ==
PROVIDERS: PCP Family Medicine; Visit Provider Student in an Organized Health Care Education/Training Program
DX: M16.11 Unilateral primary osteoarthritis, right hip (principal)
CPT/HCPCS: 20611; 99212; J2003; J3301

== ENCOUNTER 2025-06-07 14:42 | Outpatient (REF) | payer OTHER, SELFPAY ==
[2025-01-27 10:17] VITALS: BP 128/72; BP 140/60; BP 148/88; BMI 63.7
--- OUTSIDE RECORDS SUMMARY | 2025-06-07 19:44 | XMS_ITS | Clinical Summary ---
Author Organization [employer] Address [address] [place] [address] 7 [place] [address] Care Team Providers Care Shirring Tender Name Role Phone RajeevCarmen jones Primary Care Provider [phone] Allergies Active Allergy Reactions Criticality Noted Date [...] no tomes quetiapine o paroxetine 023 Active bismuth-metroNIDA ZOLE-tetracycline (Pylera) 140-125-125 MG capsuleIndication s:H. pylori infection Take 3 capsules by mouth before breakfast, before lunch, before evening meal, and at bedtime for 14 days. Follow each dose with 8 oz of water. 168 capsule 024 Active isosorbide mononitrate ER (Imdur) 60 MG [...] with evening meal. 180 tablet 3 Active hydroCHLOROthiazi de 12.5 MG tablet Take 1 tablet by mouth Once per day. Active ergocalciferol (Vitamin D2) 1.25 MG (76067 UT) capsule Take 1 capsule (1.25 mg) [...] 6 HOURS NEEDED 18 g 025 Active amLODIPine (Norvasc) 5 MG tablet [...] SHORTNESS OF BREATH 90 mL 3 Active senna-docusate (Senokot S) 8.6-50 MG tablet Take 1 tablet by mouth Once per day. 30 tablet 025 2025 Active senna (Senokot) 8.6 MG tablet TAKE 1 TABLET BY MOUTH EVERY DAY 90 tablet Active Tirzepatide (Mounjaro) 10 MG/0.5ML solution auto-injectorIndi cations:Morbid obesity with BMI of 50.0-59.9, adult (CMS/HCC) ([facility]) Inject 10 mg under the skin 1 [...] NOSTRIL ONCE DAILY 48 g 3 Active D3 Super Strength 50 MCG (2000 UT) capsule TAKE 1 CAPSULE BY MOUTH EVERY DAY 90 capsule Active fluticasone (Flovent) 110 MCG/ACT inhaler INHALE 2 PUFFS TWICE DAILY IN THE MORNING AND AT BEDTIME. RINSE MOUTH AFTER USING. DO NOT SWALLOW. 12 g Active metoprolol succinate XL (Toprol-XL) 50 MG 24 hr tabletIndications :Hypertension, unspecified type TAKE 1 TABLET BY MOUTH EVERY DAY 90 tablet 1 Active metroNIDAZOLE (Metrogel) 0.75 % gelIndications:Me lasma APPLY TOPICALLY TO THE AFFECTED AREA(S) OF THE FACE EVERY DAY NEEDED 45 g 025 Active topiramate 50 MG tabletIndications :Nonintractable headache, unspecified chronicity pattern, unspecified headache type TAKE 1 TABLET BY MOUTH TWICE DAILY 60 tablet 5 025 Active traMADol (Ultram) 50 MG tabletIndications :Chronic low back pain, unspecified back pain laterality, unspecified whether sciatica present Take 1 tablet (50 mg) by mouth every 8 (eight) hours if needed for severe pain for up to 28 days. Do not start before June 08, 2025. 84 tablet 025 2024 Active Aspirin Low Dose 81 MG EC tablet Take 1 tablet by mouth Once per day. 025 Active lisinopril 20 MG tablet Take 1 tablet by mouth Once per day. 025 Active pantoprazole (ProtoNix) 20 MG EC tablet TAKE 1 TABLET BY MOUTH EVERY DAY 30 MINUTES BEFORE A MEAL 025 Active baclofen (Lioresal) 10 MG tabletIndications :Chronic low back pain, unspecified back pain laterality, unspecified whether sciatica present Take 1 tablet (10 mg) by mouth if needed in the morning, at noon, and at bedtime for muscle spasms. 60 tablet 2 025 Active baclofen (Lioresal) 10 MG tabletIndications :Chronic low back pain, unspecified back pain laterality, unspecified whether sciatica present TAKE 1 TABLET BY MOUTH THREE TIMES DAILY NEEDED FOR MUSCLE SPASMS 60 tablet 2 023 2024 Discontinued(R eorder (will not trigger notification to Pharmacy)) omeprazole (PriLOSEC) [address] capsule Take 2 capsules (40 mg) by mouth before breakfast and before evening meal. Do not crush or chew. 120 capsule 11 023 2024 Discontinued(M ed list cleanup (will not trigger notification to Pharmacy)) aspirin (Aspirin Low Dose) 81 MG chewable tabletIndications :Hyperlipidemia, unspecified hyperlipidemia type CHEW 1 TABLET BY MOUTH EVERY DAY IN THE MORNING 90 tablet 024 2024 Discontinued(M ed list cleanup (will not trigger notification to Pharmacy)) lisinopril 30 MG tablet Take 1 tablet (30 mg) by mouth Once per day. 30 tablet 11 025 2024 Discontinued(M ed list cleanup (will not trigger notification to Pharmacy)) emtricitabine-ten ofovir DF (Truvada) 200-300 MG tabletIndications :On pre-exposure prophylaxis for HIV TAKE 1 TABLET BY MOUTH EVERY DAY 30 tablet 2 025 2024 Discontinued(M ed list cleanup (will not trigger notification to Pharmacy)) Brilinta 90 MG tablet TAKE 1 TABLET BY MOUTH TWICE DAILY 60 tablet 1 025 2024 Discontinued(M ed list cleanup (will not trigger notification to Pharmacy)) traMADol (Ultram) 50 MG tabletIndications :Chronic low back pain, unspecified back pain laterality, unspecified whether sciatica present TAKE 1 TABLET BY MOUTH EVERY 8 HOURS NEEDED FOR SEVERE PAIN FOR UP TO 28 DAYS 84 tablet 025 2024 Discontinued traMADol (Ultram) 50 MG tabletIndications :Chronic low back pain, unspecified back pain laterality, unspecified whether sciatica present TAKE 1 TABLET BY MOUTH EVERY 8 HOURS NEEDED FOR SEVERE PAIN FOR UP TO 28 DAYS 84 tablet 025 2024 Discontinued Active Problems Problem Noted Date Diagnosed Date Diverticulosis 06/07/2025 Tubular adenoma 06/07/2025 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 Morbid obesity with BMI of 50.0-59.9, adult ([facility]) 06/07/2025 Long-term current use of opiate analgesic 2024 [...] Diagnosed Date Resolved Date Coronary arteriosclerosis 02/21/2023 BMI 50.0-59.9, adult ([facility]) 09/19/2022 06/07/2025 Class 3 severe obesity due t o excess calories with serious comorbidity and body mass index (BMI) of 50.0 to 59.9 in adult 09/19/2022 5 Assessment & Plan (02/14/2025 4:49 PM EDT): Patient has lost significant amount of weight on both of t Ozempic and Zepbound, he seems to have tolerated 5 mg Zepbound well. Increase Zepbound to 7.5 mg, hold for constipation or severe diarrhea. Follow-up with PCP Acute non-ST segment elevati on myocardial infarction 06/12/2022 09/19/2022 Migraine without aura, not refractory 09/27/2016 09/19/2022 Kidney stone 06/05/2015 09/19/2022 Steatosis of liver 06/05/2015 Tobacco dependence syndrome 06/05/2015 09/19/2022 Encounters Date Type Department Care Team Description 06/06/2025 Refill [facility] [place] [address] Carmen Bertrand DO Chronic low back pain, unspecified back pain laterality, unspecified whether sciatica present 06/01/2025 2:00 PM EDT Clinical Support [facility] [address] Jessica Conway RN Long-term current use of opiate analgesic (Primary Dx) 06/01/2025 Travel 06/01/2025 Refill [facility] [place] [address] Carmen Bertrand DO Chronic low back pain, unspecified back pain laterality, unspecified whether sciatica present 05/31/2025 Telephone [facility] [place] [address] Carmen Bertrand DO telephone call; Prior Authorization ([facility] [employer] Form: Zepbound) 05/10/2025 Telephone [facility] [place] [address] Carmen Bertrand DO Prior Authorization ([facility]: Marimar) 05/10/2025 Telephone [facility] [address] [place] [address] Carmen Bertrand DO Med Refill 05/10/2025 Refill [facility] [address] [place] [address] Carmen Bertrand DO Chronic low back pain, unspecified back pain laterality, unspecified whether sciatica present 04/27/2025 Refill [facility] [address] [place] [address] Carmen Bertrand DO Melasma; Nonintractable headache, unspecified chronicity pattern, unspecified headache type 04/11/2025 Refill [facility] [address] [place] [address] Carmen Bertrand DO Chronic low back pain, unspecified back pain laterality, unspecified whether sciatica present 04/05/2025 Orders Only GENERIC EXTERNAL DATA DEPARTMENT Provider, Generic External Data 04/04/2025 Refill [facility] [address] [place] [address] Carmen Bertrand DO Hypertension, unspecified type; Chronic low back pain, unspecified back pain laterality, unspecified whether sciatica present 04/04/2025 Refill [facility] [address] [place] [address] Ирина Mckeon MD Hypertension, unspecified type 03/25/2025 Telephone [facility] [address] [place] [phone] Carmen Bertrand DO chartprep 03/18/2025 11:30 AM EDT Office Visit [facility] [address] [place] [phone] Carmen Bertrand DO Essential hypertension (Primary Dx); Other hyperlipidemia; Major depression, recurrent, chronic (CMS/HCC); Coronary artery disease involving kasaan coronary artery of kasaan heart, unspecified whether angina present; Prediabetes; Mild persistent asthma without complication; Fatty liver; 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; Chronic migraine; Nephrolithiasis; Obstructive sleep apnea; Chronic bilateral low back pain without sciatica; Chronic pain of both knees; Hoarseness; Morbid obesity with BMI of 50.0-59.9, adult (CMS/[facility]); Healthcare maintenance; Chronic low back pain, unspecified back pain laterality, unspecified whether sciatica present 03/18/2025 Travel 03/17/2025 Telephone [facility] [address] [place] [address] Carmen Bertrand, Chart Prep 03/14/2025 Refill [facility] [address] [place], [place] [phone] Carmen Bertrand, Chronic low back pain, unspecified back pain laterality, unspecified whether sciatica present 03/14/2025 Refill [facility] [address] [place], [place] [phone] Frances Austin MD 03/08/2025 Travel from Last 3 Months Immunizations Immunization Administration [...] housing situation today? I have pravinnevaeh amin 02/24/[address] you [...] EDT Inhaled Oxygen Concentration - - Weight 157 kg (345 lb 12.8 oz) 06/01/2025 2:06 P M EDT Height 170.2 cm (5' 7 ) 03/18/2025 12:00 PM EDT Body Mass Index 54.16 03/18/2025 12:00 PM EDT Plan of Treatment Upcoming Encounters Date Type Department Care Team (Late st Contact Info) Description 09/07/2025 2:00 PM EST Clinical Support [facility] [address] [place] [phone] Jessica Conway, RULA Health Maintenance Due Date Last Done Comments CT Colonography 1975 Colonoscopy 1975 FIT 1975 Sigmoidoscopy 1975 Family Planning (PISQ) 1991 Hepatitis A Vaccines (1 of 2 - Risk 2-dose series) 1995 Depression Monitoring 03/27/2025 09/27/2024, 024 COVID-19 Vaccine ( season) 2025 06/07/2021, 01/29/2021 Influenza Vaccine (#1) 2025 , 05/07/2022, 05/07/2022, Additional history exists Diabetes: Hemoglobin A1C 08/24/2025 025, 04/27/2024, 04/27/2024, Additional history exists FOBT 08/31/2025 08/31/2024 Alcohol/Substance Use Screening 09/27/2025 09/27/2024 Disability Screening [...] Comments POCT ANALISA-14 URINE DRUG SCREEN Routine 06/01/2025 2:10 PM EDT Long-term current use of opiate analgesic HIGH SENSITIVITY TROPONIN I Routine 04/05/2025 9:42 AM EDT XR CHEST 2 VIEWS Routine 04/05/2025 6:17 AM EDT HIGH SENSITIVITY TROPONIN I Routine 04/05/2025 4:34 AM EDT COMPREHENSIVE METABOLIC PANEL, FASTING Routine 04/05/2025 4:34 AM EDT CBC WITH AUTO DIFFERENTIAL Routine 04/05/2025 4:34 AM EDT LAB COLOGUARD COLON CANCER SCREEN [...] Results * POCT ANALISA-14 Urine Drug Screen (06/01/2025 2:10 PM EDT) THC Negative Negative Cocaine Screen, Urine [...] obtained by clean catch procedure / Unknown 06/01/2025 2:10 PM EDT Jessica Perez RN - 06/01/2025 2:10 PM EDT UTOX cup Lot#[id number] Exp. 05/24/26 Internal Pass Control Carmen Bertrand DO POINT OF CARE TEST ENTER/LANEY T ORDERABLES Final Result * High Sensitivity Troponin I (04/05/2025 9:42 AM EDT) Only the most recent of2 resultswithin the time period is included. TROPONIN I HIGH SENSITIVITY <2.7 <3.5 - 17.0 ng/L [facility] Comment:The [employer] high sens itivity Troponin-I results should beused in conjunction with other diagnostic information suchas ECG, clinical observations and information, and patientsymptoms to aid in the diagnosis of [place]. 04/05/2025 9:42 AM EDT 04/05/2025 9:44 AM EDT us Generic External Data Provider LAB BLOOD ORDERAB LES Final Result [facility] [address] [place] [phone] * XR Chest 2 Views (04/05/2025 6:17 AM EDT) Anatomical Region Laterality Modality Chest Radiographic Alejandrina ging 04/05/2025 6:17 AM EDT Narrative 04/05/2025 6:19 AM EDT [address] [address] XRay Report Signed Patient: Blaire Quiroz MR#: [id number] : 1975 Acct:[id number] Age/Sex: 50 / F ADM Date: 04/05/25 Loc: HO.ED Attending Dr: Ordering Physician: Generic ED Physician Date of Service: 04/05/25 Procedure(s): XR chest 2V Accession Number(s): [id number] cc: Generic ED Physician; Carmen Bertrand DO [...] in OV> 04/05/25617 DD/ 6 TD/TT: 04/05/25616 Metal Container Maker: Procedure Note Donotuseinterpreter, Image - 04/05/[address] [address] XRay Report Signed Patient: Blaire QuirozMR#: M [id number] : 1975Acct:[id number] Age/Sex: 50 / FADM Date: 04/05/25 Loc: .ED Attending Dr: Ordering Physician: Generic ED Physician Date of Service: 04/05/25 Procedure(s): XR chest 2V Accession Number(s): [id number] cc: Generic ED Physician; Carmen Bertrand DO [...] in OV> 04/05/25617 DD/ 6 TD/TT: 04/05/25616 Metal Container Maker: us [facility] External Provider IMG XR PROCEDURES Edited Result - Final * (ABNORMAL) Comprehensive Metabolic Panel, Fasting (04/05/2025 4:34 AM EDT) Sodium 141 135 - 145 mmol/L [facility] Potassium 3.6 3.3 - 5.1 mmol/L [facility] Chloride 109(H) 96 - 108 mmol/L [facility] Carbon Dioxide 22 22 - 29 mmol/L [facility] Anion Gap 14 12 - 20 [facility] Urea Nitrogen (BUN) 16 9 - 16 mg/dL [facility] Creatinine, Serum 0.87 0.5 - 1.4 mg/dL [facility] Creatinine Clr Calc Pharmacy 120.4 [facility] Comment:Provided height and weight: 167.64 cm,154.8 kg.eGFR (calculated from the MDRD study equation) and eCrCl(calculated from the Cockcroft-Gault equation) are based ondifferent parameters and may not yield comparable results.If eCrCl result is absurd, please check patient'sheight/weight. Estimated Glomerular Filt Rate >60 [facility] Comment:Chronic Kidney Disea se: Estimated GFR < 60 mL/min/[id number] Kidney Disease: Estimated GFR < 15 mL/min/1.73m2 Glucose Fasting 100(H) 60 - 99 mg/dL [facility] Comment:A fasting glucose fr om 100-125 mg/dl is considered impaired(pre-diabetes). Calcium 9.0 8.4 - 10.2 mg/dL [facility] Bilirubin, Total 0.4 0.0 - 1.0 mg/dL [facility] Aspartate Amino Transferase 22 5 - 31 U/L [facility] Alanine Aminotransferase 14 0 - 31 U/L [facility] Total Protein 7.1 6.5 - 8.0 g/dL [facility] Albumin Level 3.8 3.5 - 5.0 g/dL [facility] Alkaline Phosphatase 105 39 - 117 U/L [facility] 04/05/2025 4:34 AM EDT 04/05/2025 4:36 AM EDT us Generic External Data Provider LAB BLOOD ORDERAB LES Final Result [facility] [address] [place] [phone] * (ABNORMAL) CBC auto differential (04/05/2025 4:34 AM EDT) White Blood Count 11.6(H) 4.8 - 10.8 X10*3/uL [facility] Red Blood Count 4.07(L) 4.20 - 5.50 X10*6/uL [facility] Hemoglobin 12.9 12.0 - 16.0 g/dl [facility] Hematocrit 38.1 37.0 - 47.0 % [facility] Mean Corpuscular Volume 93.6 80.0 - 98.0 fL [facility] Mean Corpuscular Hemoglobin 31.7 27.0 - 33.0 pg [facility] Mean Corpuscular HGB Conc 33.9 31.0 - 35.0 g/dl [facility] Red Cell Distribution Width 13.5 11.0 - 16.0 % [facility] Platelet Count 288 160 - 400 X10*3/uL [facility] Mean Platelet Volume 9.5 9.4 - 12.3 fL [facility] Neutrophils Percent Auto 55.7 45 - 73 % [facility] Imm Gran Pct Auto 0.4 0.0 - 0.4 % [facility] Lymphocytes Percent Auto 32.7 20 - 40 % [facility] Monocytes Percent Auto 8.2 2 - 11 % [facility] Eosinophils Percent Auto 2.2 0 - 4 % [facility] Basophils Percent Auto 0.8 0 - 2 % [facility] NRBC Pct Auto 0.0 0.0 - 0.2 /100WBC [facility] Neutrophils Absolute Auto 6.5 2.0 - 8.3 x10*3/uL [facility] Imm Gran Abs Auto 0.05(H) 0.00 - 0.03 X10*3/uL [facility] Lymphocytes Absolute Auto 3.8 1.2 - 4.9 X10*3/uL [facility] Monocytes Absolute Auto 1.0 0.1 - 1.2 X10*3/uL [facility] Eosinophils Absolute Auto 0.3 0.0 - 0.4 X10*3/uL [facility] Basophils Absolute Auto 0.1 0.0 - 0.2 X10*3/uL [facility] NRBC Abs Auto 0.000 0.0 - 0.012 X10*3/uL [facility] 04/05/2025 4:34 AM EDT 04/05/2025 4:36 AM EDT us Generic External Data Provider LAB BLOOD ORDERAB LES Final Result [facility] [address] [place] [phone] * (ABNORMAL) Cologuard?? colon cancer screening (08/31/2024 10:33 AM EST) Cologuard Result Positive( A) Negative 09/07/2024 10:16 AM EST [facility] (CLIA #:[id number]) Comment: POSITIVE TEST RESULT. A positive Cologuard [...] Hamilton et al, N Engl J Med 2014;370(14):6078-9941.) Cologuard may produce a false negative or false positive result (no colorectal cancer or precancerous polyp present at colonoscopy follow up). A negative Cologuard test result does not guarantee the absence of CRC or advanced adenoma (pre-cancer). The current Cologuard screening interval is every 3 years. ([place] [employer] and U.S. Multi-Society Task Force). Cologuard performance data in a 10,000 patient pivotal study using colonoscopy as the reference method can be accessed at the following location: www.Materia/results. Additional description of the Cologuard test process, warnings and precautions can be found at www.[email or web address]. Stool specimen (specimen) 08/31/2024 10:33 AM EST 09/01/2024 11:06 AM EST Carmen Bertrand DO LAB MOLECULAR DIAGNOSTICS OR DERABLES Final Result [facility] (CLIA #:[id number]) [place] [address], * Hemoglobin A1c (08/24/2024 11:57 AM EST) Hemoglobin A1c 6.0 <6.0 % [facility] Comment:Hemoglobin A1C Refer ence Range Adults: 4.8 - 6.0 % Non diabetic: < 6.0 % Goal: < 7.0 %Additional Action Suggested: > 8.0 %Note: Hemoglobin A1c results are invalid for patients with abnormal amounts of HbF. Blood transfusions may impact the HbA1c concentration in the patient sample. Estimated Average Glucose 126 mg/dL [facility] Comment:eAG = Estimated ave rage glucose which is %A1C expressed asaverage glucose, using the formula of the V6Z-FweofnaPruxmji Glucose study (ADAG), Diabetes Care, Vol.31,#8,Mar. 2007 Blood Venous blood specimen / Unknown 08/24/2024 11:57 AM EST 08/24/2024 1:03 PM EST Cramen Bertrand DO LAB BLOOD ORDERABLES Final R esult [facility] [address] [place] [phone] * (ABNORMAL) Lipid Panel, Standard (08/24/2024 11:57 AM EST) Triglycerides 82 <150 mg/dL [facility] Comment:Desirable Triglyceri de: less than 150 mg/dLBorderline High Triglyceride 150-199 mg/dLHigh Triglyceride: 200-499 mg/dLVery High Triglyceride: greater than or equal to 5OO mg/dL Cholesterol 136 <200 mg/dL [facility] Comment:Desirable Cholestero l: less than 200 mg/dLBorderline High Cholesterol: 200-239 mg/dLHigh Cholesterol: greater than 239 mg/dL LDL Cholesterol Calculated 81 <100 mg/dL [facility] Comment:Desirable LDL: less than 100 mg/dLNear Optimal/Above Optimal LDL: 110- 129 mg/dLBorderline High LDL: 130-159 mg/dLHigh LDL: 160-189 mg/dLVery High LDL: greater than or equal to 190 mg/dL HDL Cholesterol 39(L) >40 mg/dL [facility] Comment:Desirable HDL: great er than 40 mg/dL Note: This HDL assay may give artificially low results in patients with liver disease. Blood Venous blood specimen / Unknown 08/24/2024 11:57 AM EST 08/24/2024 1:03 PM EST Carmen Bertrand DO LAB BLOOD ORDERABLES Final R esult [facility] [address] [place] [phone] * BI US Breast Limited Bilateral (06/02/2024 2:00 PM EDT) Anatomical Region Laterality Modality Breast Bilateral Ultrasound 06/02/2024 2:00 PM EDT Narrative 06/03/2024 8:44 AM EDT [facility] [address] [place] [address] Ultrasound Report Signed Patient: Blaire Quiroz MR#: [id number] : 1975 Acct:[id number] Age/Sex: 49 / F ADM Date: 06/02/24 Loc: HO.MAMMO Attending Dr: Carmen Bertrand DO Ordering Physician: Carmen Bertrand DO Date of Service: 06/02/24 Procedure(s): US breast BI limited mamm only Accession Number(s): [id number] cc: Carmen Bertrand DO EXAMINATION: US DIAGNOSTIC [...] 06/03/24 0841 DD/ 1400 TD/TT: 06/02/24 1454 Metal Container Maker: Procedure Note Donotuseinterpreter, Image - 06/03/[facility] [address] [place], [place] [address] Ultrasound Report Signed Patient: Maria Luisa Jean,Debimanda#: M [id number] : 1975Acct:[id number] Age/Sex: 49 / FADM Date: 06/02/24 Loc: HO.MAMMO Attending Dr: Carmen Bertrand DO Ordering Physician: Carmen Bertrand DO Date of Service: 06/02/24 Procedure(s): US breast BI limited mamm only Accession Number(s): [id number] cc: Carmen Bertrand DO EXAMINATION: US DIAGNOSTIC [...] 06/03/24 0841 DD/ 1400 TD/TT: 06/02/24 1454 Metal Container Maker: us Carmen Bertrand DO IMG US PROCEDURES Final Resu lt * Hepatitis C Antibody with Reflex to HCV, RNA, Quantitative, Real-Time PCR (04/27/2024 2:02 PM EDT) Hepatitis C Antibody Nonreactive Nonreactive [facility] Comment:Antibodies to HCV no t detected; does not exclude early acuteHCV infection. Blood Venous blood specimen / Unknown 04/27/2024 2:02 PM EDT 04/27/2024 4:01 PM EDT us Carmen Bertrand DO LAB BLOOD ORDERABLES Final R esult [facility] [address] [place] [phone] * HIV Ab/Ag ([facility]) (02/21/2023 2:35 PM EDT) HIV AB/AG Nonreactive Nonreactive [facility] Comment:HIV-1 p24 Ag and/or HIV-1/HIV-2 Ab not detected.A test result that is nonreactive does not exclude thepossibility of exposure to or infection with HIV-1 and/orHIV-2. Nonreactive results in this assay for individualswith prior exposure to HIV-1 and/or HIV-2 may be due toantigen and antibody levels that are below the limit ofdetection of this assay.The [employer]airer HIV Ag/Ab Combo assay result andsupplemental assay results should be interpreted inconjunction with the patient's clinical presentation,history and other laboratory results. If the results areinconsistent with clinical evidence, additional testing issuggested to confirm the result. 02/21/2023 2:35 PM EDT 02/21/2023 2:37 PM EDT [facility] External Provider LAB BLO OD ORDERABLES Final Result [facility] [address] [place] [phone] from Last 3 Months or Most Recently Relevant to Health Maintenance Insurance [facility] ONE CARE < [address] [place] [id number] Care Teams Shirring Tender Relationship Specialty Start Date End Date Carmen Bertrand DO [address] [place] [address] PCP - General Family Medicine 08/18/18
--- OUTSIDE RECORDS SUMMARY | 2025-06-07 19:44 | XMS_ITS | Encounter Summary ---
Author Organization [employer] Address [address] [place] [address] [place] [address] Care Team Providers Care Ship Steward Name Role Phone Carmen Bertrand DO Primary Care Provider [phone]- [phone] Encounter Details Date Type Department Care Team (Late st Contact Info) Description 09/09/2022 Orders Only [facility] CHC MED & PEDS [address] [place] [address] Carmen Perez LPN Social History Tobacco Use [...] Description 09/07/2025 2:00 PM EST Clinical Support [facility] MEDICINE [address] [place] [address] Jessica Conway, RN documented as of this encounter Visit Diagnoses Not on filedocumented in this encounter Care Teams Ship Steward Relationship Specialty Start Date End Date Carmen Bertrand DO [address] [place] [address] PCP - General Family Medicine 08/18/18 documented as of this encounter
--- OUTSIDE RECORDS SUMMARY | 2025-06-07 19:44 | XMS_ITS | Encounter Summary ---
Author Organization [employer] Address [address] [place] [address] [place] [address] Care Team Providers Care Core Inserter Name Role Phone Carmen Bertrand DO Primary Care Provider [phone]- [phone] Encounter Details Date Type Department Care Team (Late st Contact Info) Description 09/09/2022 Orders Only [facility] MEDICINE [address] [place] [phone] Azul Albrecht LPN Social History Tobacco Use [...] Description 09/07/2025 2:00 PM EST Clinical Support [facility] MEDICINE [address] [place] [phone] Jessica Conway, RULA documented as of this encounter Visit Diagnoses Not on filedocumented in this encounter Care Teams Core Inserter Relationship Specialty Start Date End Date Carmen Bertrand DO [address] [place] [address] PCP - General Family Medicine 08/18/18 documented as of this encounter
--- OUTSIDE RECORDS SUMMARY | 2025-06-07 19:44 | XMS_ITS | Encounter Summary ---
Author Organization [employer] Address [address] [place] [address] 7 [place] [address] Care Team Providers Care Supervisor Metal Placing Name Role Phone Carmen Bertrand DO Primary Care Provider + [phone] Reason for Visit * Reason Comments Med Refill Encounter Details Date Type Department Care Team ([facility] st Contact Info) Description 04/04/2025 Refill [facility] MEDICINE [address] [place], [place] [phone] Carmen Bertrand DO [address] [place], [place] [phone] Hypertension, unspecified type; Chronic low back pain, [...] Description 09/07/2025 2:00 PM EST Clinical Support [facility] MEDICINE [address] [place] [address] Jessica Conway RN documented as of this encounter Visit Diagnoses Diagnosis Hypertension, unspecified type Chronic low back pain, unspecified back pain laterality, unspecified whether sciatica present documented in this encounter Additional Health Concerns Assessment Noted Time PHQ-9 Depression Total Score: 22 024 11:00 AM EDT documented as of this encounter Care Teams Supervisor Metal Placing Relationship Specialty Start Date End Date Carmen Bertrand DO [address] [place] [address] PCP - General Family Medicine 08/18/18 documented as of this encounter
--- OUTSIDE RECORDS SUMMARY | 2025-06-07 19:45 | XMS_ITS | Encounter Summary ---
Author Organization [employer] Address [address] [place] [address] 7 [place] [address] Care Team Providers Care Health Program Specialist Name Role Phone Elza Carmen Primary Care Provider + [phone] Reason for Visit * Reason Comments Med Refill Encounter Details Date Type Department Care Team ([facility] st Contact Info) Description 03/08/2024 Refill [facility] MEDICINE [address] [place] [address] Rox Sutton MD [address] [place] [address] Pain Social History Tobacco Use Types Packs/Day [...] 09/07/2025 2:00 PM EST Clinical Support [facility] MEDICINE [address] [place] [address] Jessica Conway RN documented as of this encounter Visit Diagnoses Diagnosis Pain Generalized pain documented in this encounter Additional Health Concerns Assessment Noted Time PHQ-9 Depression Total Score: 21 023 11:26 AM EST documented as of this encounter Care Teams Health Program Specialist Relationship Specialty Start Date End Date Carmen Bertrand DO [address] [place] [address] PCP - General Family Medicine 08/18/18 documented as of this encounter
--- OUTSIDE RECORDS SUMMARY | 2025-06-07 19:45 | XMS_ITS | Encounter Summary ---
Author Organization [employer] Address [address] [facility] 7 [place] [address] Care Team Providers Care Child Care Leader Name Role Phone Carmen Bertrand DO Primary Care Provider + [phone] Reason for Visit * Reason Comments Med Refill Encounter Details Date Type Department Care Team ([facility] st Contact Info) Description 07/22/2023 Refill [facility] CHC MED & PEDS [address] [place], [place] [phone] Carmen Bertrand DO [address] [place] [address] Hyperlipidemia, unspecified hyperlipidemia type Social History Tobacco [...] Description 09/07/2025 2:00 PM EST Clinical Support [facility] MEDICINE [address] [place] [address] Jessica Conway RN documented as of this encounter Visit Diagnoses Diagnosis Hyperlipidemia, unspecified hyperlipidemia type documented in this encounter Additional Health Concerns Assessment Noted Time PHQ-9 Depression Total Score: 21 023 11:26 AM EST documented as of this encounter Care Teams Child Care Leader Relationship Specialty Start Date End Date Carmen Bertrand DO [address] [place] [address] PCP - General Family Medicine 08/18/18 documented as of this encounter
--- OUTSIDE RECORDS SUMMARY | 2025-06-07 19:45 | XMS_ITS | Encounter Summary ---
Author Organization [employer] Address [address] [place] [address] [place] [address] Care Team Providers Care Kelp Gatherer Name Role Phone Carmen Bertrand DO Primary Care Provider [phone]- [phone] Encounter Details Date Type Department Care Team (Late st Contact Info) Description 08/13/2022 Orders Only [facility] CHC MED & PEDS [address] [place] [address] Carmen Perez LPN Social History Tobacco Use [...] Department Care Team (Late Contact Info) Description 09/07/2025 2:00 PM EST Clinical Support [facility] MEDICINE [address] [place] [address] Jessica Conway, RN documented as of this encounter Visit Diagnoses Not on filedocumented in this encounter Care Teams Kelp Gatherer Relationship Specialty Start Date End Date Carmen Bertrand DO [address] [place] [address] PCP - General Family Medicine 08/18/18 documented as of this encounter
--- OUTSIDE RECORDS SUMMARY | 2025-06-07 19:45 | XMS_ITS | Encounter Summary ---
Author Organization [employer] Address [address] [place] [address] 7 [place] [address] Care Team Providers Care Aircraft Worker Name Role Phone Carmen Bertrand DO Primary Care Provider [phone] Reason for Visit * Reason Onset Date Comments telephone call 05/31/2025 Prior Authorization 05/31/2025 [facility] Caremark Form: Zepbound Encounter Details Date Type Department Care Team ([facility] st Contact Info) Description 05/31/2025 Telephone [facility] MEDICINE [address] [place] [address] Carmen Bertrand DO [address] [place], [place] [phone] telephone call; Prior Authorization ([employer] Form: Zepbound) Social History Tobacco Use Types Packs/Day Years [...] * Telephone Encounter - Sangita Ferro - 06/03/2025 4:27 PM EDT [facility] form was completed and returned via FAX with supporting documentation. Confirmation was uploaded to Media. * Telephone Encounter - Aydee Whittaker - 05/31/2025 2:54 PM EDT Pt walked in stating she received a letter in the mail saying they had sent the provider a form so she can fill out for her injection zepbound but the pcp hasn't done so, so they denied her the injection she is requesting if they can resubmit a PA for it. Best contact number is [phone] documented in this encounter Plan of Treatment Upcoming Encounters Date Type Department Care Team ([facility] st Contact Info) Description 09/07/2025 2:00 PM EST Clinical Support [address] [address] Jessica Conway, RULA documented as of this encounter Visit Diagnoses Not on filedocumented in this encounter Additional Health Concerns Assessment Noted Time PHQ-9 Depression Total Score: 22 024 11:00 AM EDT documented as of this encounter Care Teams Aircraft Worker Relationship Specialty Start Date End Date Carmen Bertrand DO [address] [place] [address] PCP - General Family Medicine 08/18/18 documented as of this encounter
--- OUTSIDE RECORDS SUMMARY | 2025-06-07 19:45 | XMS_ITS | Data Portability ---
Author Organization [employer] [facility], [facility] Address [address] [place] [phone] Care Team Providers Care Creative Lead Name Role Phone Unavailable OTHER HIM CCA OTHER Assessment Encounter Date Assessment Date Assessment [...] recorded. Lab rapid flu (A+B) 2024 025 formerly [facility], [address] [place] [address], [id number] 15:45:24 rapid SARS CoV 2 Ag, QL [place], respiratory specimen [address], [id number] 15:45:08 Referral None recorded. Procedures None recorded. Surgeries None recorded. Imaging None recorded. Medication Orders albuterol sulfate 2.5 mg/3 mL (0.083 %) solution for nebulizatio n 2024 025 [facility][id number], [address] [place], [address], 5 18:27:03 Patient TargetsNo targets recorded. Patient [...] Name and Address Organization Details Recorded Time 89174 aspirin medicatio n Not available Not available Not available 10/05/2024 1191 RxNorm Not Available [facility] - production 5 13:36:43 39701 penicilli n V Not available Not available Not available Not available 10/05/2024 7984 RxNorm Not Available [facility] - production 5 13:36:43 63313 penicilli n G procaine medicatio n Not available Not available Not available 10/05/2024 7983 RxNorm Not Available [facility] - production 5 13:36:43 29513 penicilli n G benzathin e medicatio n [...] % 172.72 cm 18 /min 98.4 [degF] 228594. 272 g 131/78 mm[Hg] Not Available [facility] - production 14:56:14 Social History None recorded. Functional Status None recorded. Mental Status None recorded. Family History Nothing Reported. Medical History No medical history recorded. Gynecological HistoryNo gynecological history recorded. Obstetrics History GPAL:G 0 P 0 0 0 0 Past Encounters Encounter ID Performer Location Encounter Start Date Encounter Closed Date Diagnosis/Indication Diagnosis SNOMED-CT Code Diagnosis ICD10 Code Diagnosis IMO Codes Diagnosis Note [id number] Reese Jarvis MD Main - [facility] [address] [place] [phone] 10/05/2024 14:55:01 10/07/2024 08:39:41 Wheezing 79215409 R06.2 Health Concerns Section Related Observation LastModified by Organization Detai ls LastModified Time None Recorded Concern Status LastModified by Organization Details LastModified Time None Recorded Advance Directives Directive None Recorded Payers Insurance Date Sequence Insurance Name Policy Number Policy Parra Covered Member ID Parra Member ID Guarantor Name 10/05/2024 1 [facility] - DOS ON OR AFTER 2022 - DUAL ELIGIBLE - [employer] OPTIONS AND ONE CARE (MEDICARE REPLACEMENT/ADV ANTAGE - HMO) Blaire Jean [id number] Blaire Santosrio Jean Notes Date Note Type [...] advised of disposition, unable to come into [facility]. Agrees to [facility] for evaluation. Confirmed demographics and allergies. .................. .................. .................. .................. .................. .................. .................. ............... [facility] Nurse Triage Notes (Radha Martinez - RN): Chief Complaints: Cough, Fever/chills, Headache, Sore throat, Breathing problems PMH: Hypertension, Asthma, Coronary Artery Disease PMH Reviewed at 10/05/2024 - 13:36 Allergies Reviewed at 10/05/2024 - 13:36 Comments: CRC RN did not require any additional information to process this visit. Immigration Judge Organization Information for Ankita Castillo Business Legal Name: [employer]. Address: [address] [place] [address], Visitor Services Assistant: Marino Dow MD CLIA No.: [id number] Immigration Judge POC Test Results from Ankita Castillo Rapid COVID antigen (14:56:21) COVID: - Rapid influenza antigen (14:56:24) Flu: - Rapid strep test (14:56:25) Strep: - .................. .................. .................. .................. .................. .................. .................. ............... Immigration Judge Note From Ankita Castillo: Sent to a call for a pt complaining of URI symptoms. [facility] arrives on scene, pt is alert and oriented, airway is patent. Pt complains of URI symptoms since Friday. Pt states she had chest tightness Friday-Friday, but was evaluated at [facility] ED on Friday. Pt states she had [...] administered; Lung sounds: clear bilaterally; SpO2:98% RA; [facility] consulted and sends script to pt's pharmacy for Albuterol neb solutions. Red flags discussed. Pt has no further questions. .................. .................. .................. .................. .................. .................. .................. ............... [facility] Consulted: Reese Jarvis .................. .................. .................. .................. .................. .................. .................. ............... Disposition: Fulfilled Reese Jarvis MD [address] [facility],[address], [place], [phone], [employer] - bSafeBERNADINE SIMENTAL 10/06/2024 15:39:31 OBGyn Episode No OBEpisode recorded.
--- OUTSIDE RECORDS SUMMARY | 2025-06-07 19:45 | XMS_ITS | Encounter Summary ---
Author Organization [employer] Address [address] [place] [address] Care Team Providers Care Services Rep Name Role Phone Carmen Bertrand DO Primary Care Provider + [phone] Reason for Visit * Reason Comments Med Refill Encounter Details Date Type Department Care Team (Late st Contact Info) Description 07/29/2022 Refill [facility] MEDICINE [address] [place], [place] [phone] Carmen Bertrand DO [address] [place] [address] Social History Tobacco Use Types Packs/Day Years [...] Description 09/07/2025 2:00 PM EST Clinical Support [facility] MEDICINE [address] [place] [phone] Jessica Conway RN documented as of this encounter Visit Diagnoses Not on filedocumented in this encounter Care Teams Services Rep Relationship Specialty Start Date End Date Carmen Bertrand DO [address] [place], [place] [phone] PCP - General Family Medicine 08/18/18 documented as of this encounter
--- OUTSIDE RECORDS SUMMARY | 2025-06-07 19:45 | XMS_ITS | Encounter Summary ---
Author Organization [employer] Address [address] [place] [address] 7 [place] [address] Care Team Providers Care Air Chief Marshal Name Role Phone RajeevCarmen jones Primary Care Provider + [phone] Reason for Visit * Reason Comments Med Refill Encounter Details Date Type Department Care Team ([facility] st Contact Info) Description 02/03/2023 Refill [facility] MEDICINE [address] [place] [address] Leticia Ramirez MD [address] [place], [place] [phone] Nonintractable headache, unspecified chronicity pattern, unspecified headache [...] Description 09/07/2025 2:00 PM EST Clinical Support [facility] MEDICINE [address] [facility] [place] [address] Jessica Conway RN documented as of this encounter Visit Diagnoses Diagnosis Nonintractable headache, unspecified chronicity pattern, unspecified headache type documented in this encounter Additional Health Concerns Assessment Noted Time PHQ-9 Depression Total Score: 16 023 12:22 PM EST documented as of this encounter Care Teams Air Chief Marshal Relationship Specialty Start Date End Date Carmen Bertrand DO [address] [place] [address] PCP - General Family Medicine 08/18/18 documented as of this encounter
--- OUTSIDE RECORDS SUMMARY | 2025-06-07 19:45 | XMS_ITS | Encounter Summary ---
Author Organization [employer] Address [address] [place] [address] [place] [address] Care Team Providers Care Hotel Operation Manager Name Role Phone Carmen Bertrand DO Primary Care Provider + [phone] Reason for Visit * Reason Onset Date Comments Hospital Follow-up 11/12/2024 Encounter Details Date Type Department Care Team ([facility] Contact Info) Description 11/12/2024 Telephone [facility] MEDICINE [address] [place] [address] Carmen Bertrand DO [address] [place], [place] [phone] Hospital Follow-up Social History Tobacco Use Types [...] from pt requesting a HDF appt. Hospital: [facility] Date of admission: 11/07/2024 Discharge date: 11/12/2024 Diagnosed: heart attack *Send message to [facility] Clinical Care Coordinators documented in this encounter Plan of Treatment Upcoming Encounters Date Type Department Care Team (Late st Contact Info) Description 09/07/2025 2:00 PM EST Clinical Support [facility] MEDICINE [address] [place] [address] Jessica Conway, RULA documented as of this encounter Visit Diagnoses Not on filedocumented in this encounter Additional Health Concerns Assessment Noted Time PHQ-9 Depression Total Score: 22 024 11:00 AM EDT documented as of this encounter Care Teams Hotel Operation Manager Relationship Specialty Start Date End Date Carmen Bertrand DO [address] [place] [address] PCP - General Family Medicine 08/18/18 documented as of this encounter
--- OUTSIDE RECORDS SUMMARY | 2025-06-07 19:45 | XMS_ITS | Encounter Summary ---
Author Organization [employer] Address [address] [place] [address] [facility] [place] [address] Care Team Providers Care Client Solutions Specialist Name Role Phone Carmen Bertrand DO Primary Care Provider + [phone] Reason for Visit * Reason Comments Med Refill Encounter Details Date Type Department Care Team ([facility] st Contact Info) Description 11/20/2022 Refill [facility] MEDICINE [address] [place], [place] [phone] Carmen Bertrand DO [address] [place], [place] [phone] Morbid obesity with body mass index (BMI) [...] Description 09/07/2025 2:00 PM EST Clinical Support [facility] MEDICINE [address] [place] [address] Jessica Conway, RN documented as of this encounter Visit Diagnoses Diagnosis Morbid obesity with body mass index (BMI) of 50.0 to 59.9 in adult (HCC) documented in this encounter Additional Health Concerns Assessment Noted Time PHQ-9 Depression Total Score: 16 023 12:22 PM EST documented as of this encounter Care Teams Client Solutions Specialist Relationship Specialty Start Date End Date Carmen Bertrand DO [address] [place] [address] PCP - General Family Medicine 08/18/18 documented as of this encounter
--- OUTSIDE RECORDS SUMMARY | 2025-06-07 19:45 | XMS_ITS | Encounter Summary ---
Author Organization [employer] Address [address] [place] [address] 7 [place] [address] Care Team Providers Care Tumor Registrar Name Role Phone Elza Carmen Primary Care Provider + [phone] Reason for Visit * Reason Comments Med Refill Encounter Details Date Type Department Care Team ([facility] st Contact Info) Description 01/13/2024 Refill [facility] MEDICINE [address] [place] [address] Rox Sutton MD [address] [place] [address] Pain Social History Tobacco Use Types Packs/Day [...] Description 09/07/2025 2:00 PM EST Clinical Support [facility] MEDICINE [address] [place] [address] Jessica Conway RN documented as of this encounter Visit Diagnoses Diagnosis Pain Generalized pain documented in this encounter Additional Health Concerns Assessment Noted Time PHQ-9 Depression Total Score: 21 023 11:26 AM EST documented as of this encounter Care Teams Tumor Registrar Relationship Specialty Start Date End Date Carmen Bertrand DO [address] [place] [address] PCP - General Family Medicine 08/18/18 documented as of this encounter
--- OUTSIDE RECORDS SUMMARY | 2025-06-07 19:45 | XMS_ITS | Encounter Summary ---
Author Organization [employer] Address [address] [facility] 7 [place] [address] Care Team Providers Care Shake Sawyer Name Role Phone Carmen Bertrand DO Primary Care Provider + [phone] Reason for Visit * Reason Comments Med Refill Encounter Details Date Type Department Care Team (Late st Contact Info) Description 05/12/2024 Refill [facility] CHC MED & PEDS [address] [place], [place] [phone] Carmen Bertrand DO [address] [place] [address] Chronic low back pain, unspecified back pain [...] 09/07/2025 2:00 PM EST Clinical Support [facility] MEDICINE [address] [place] [address] Jessica Conway RN documented as of this encounter Visit Diagnoses Diagnosis Chronic low back pain, unspecified back pain laterality, unspecified whether sciatica present documented in this encounter Additional Health Concerns Assessment Noted Time PHQ-9 Depression Total Score: 22 024 11:00 AM EDT documented as of this encounter Care Teams Shake Sawyer Relationship Specialty Start Date End Date Carmen Bertrand DO [address] [place] [address] PCP - General Family Medicine 08/18/18 documented as of this encounter
--- OUTSIDE RECORDS SUMMARY | 2025-06-07 19:45 | XMS_ITS | Encounter Summary ---
Author Organization [employer] Address [address] [place] [address] 7 [place] [address] Care Team Providers Care Or Assistant Name Role Phone Carmen Bertrand DO Primary Care Provider + [phone] Reason for Visit * Reason Comments Med Refill Encounter Details Date Type Department Care Team ([facility] st Contact Info) Description 06/06/2025 Refill [facility] MEDICINE [address] [place], [place] [phone] Carmen Bertrand DO 230 [place], [place] [phone] Chronic low back pain, unspecified back pain [...] Description 09/07/2025 2:00 PM EST Clinical Support [facility] MEDICINE [address] [place] [address] Jessica Conway RN documented as of this encounter Visit Diagnoses Diagnosis Chronic low back pain, unspecified back pain laterality, unspecified whether sciatica present documented in this encounter Additional Health Concerns Assessment Noted Time PHQ-9 Depression Total Score: 22 024 11:00 AM EDT documented as of this encounter Care Teams Or Assistant Relationship Specialty Start Date End Date Carmen Bertrand DO [address] [place] [address] PCP - General Family Medicine 08/18/18 documented as of this encounter
--- OUTSIDE RECORDS SUMMARY | 2025-06-07 19:45 | XMS_ITS | Encounter Summary ---
Author Organization [employer] Address [address] [place] [address] 7 [place] [address] Care Team Providers Care Presser All Around Name Role Phone Carmen Bertrand DO Primary Care Provider + [phone] Reason for Visit * Reason Comments Med Refill Encounter Details Date Type Department Care Team ([facility] st Contact Info) Description 02/04/2025 Refill [facility] MEDICINE [address] [place], [place] [phone] Carmen Bertrand DO [address] [place], [place] [phone] Chronic low back pain, unspecified back pain [...] Description 09/07/2025 2:00 PM EST Clinical Support [facility] MEDICINE [address] [place] [address] Jessica Conway RN documented as of this encounter Visit Diagnoses Diagnosis Chronic low back pain, unspecified back pain laterality, unspecified whether sciatica present documented in this encounter Additional Health Concerns Assessment Noted Time PHQ-9 Depression Total Score: 22 024 11:00 AM EDT documented as of this encounter Care Teams Presser All Around Relationship Specialty Start Date End Date Carmen Bertrand DO [address] [place] [address] PCP - General Family Medicine 08/18/18 documented as of this encounter
--- OUTSIDE RECORDS SUMMARY | 2025-06-07 19:45 | XMS_ITS | Encounter Summary ---
Author Organization [employer] Address [address] [place] [address] [address] [place] [address] Care Team Providers Care Dowel Pin Worker Name Role Phone Carmen Bertrand DO Primary Care Provider + [phone] Reason for Visit * Reason Comments Med Refill Encounter Details Date Type Department Care Team ([facility] Contact Info) Description 10/18/2022 Refill [facility] MEDICINE 230 [place], [place] [phone] Carmen Bertrand DO 230 [place], [place] [phone] Social History Tobacco Use Types Packs/Day Years [...] Upcoming Encounters Date Type Department Care Team ([facility] st Contact Info) Description 09/07/2025 2:00 PM EST Clinical Support [facility] MEDICINE [address] [place] [address] Jessica Conway RN documented as of this encounter Visit Diagnoses Not on filedocumented in this encounter Additional Health Concerns Assessment Noted Time PHQ-9 Depression Total Score: 16 023 12:22 PM EST documented as of this encounter Care Teams Dowel Pin Worker Relationship Specialty Start Date End Date Carmen Bertrand DO 230 [place] [address] PCP - General Family Medicine 08/18/18 documented as of this encounter
--- OUTSIDE RECORDS SUMMARY | 2025-06-07 19:45 | XMS_ITS | Encounter Summary ---
Author Organization [employer] Address [address] [place] [address] 7 [place] [address] Care Team Providers Care Sql Ssrs Developer Name Role Phone Carmen Bertrand DO Primary Care Provider + [phone] Reason for Visit * Reason Comments Med Refill Encounter Details Date Type Department Care Team ([facility] st Contact Info) Description 02/24/2024 Refill [facility] MEDICINE 230 [place], [place] [phone] Carmen Bertrand DO 230 [place] [address] Social History Tobacco Use Types Packs/Day Years [...] Description 09/07/2025 2:00 PM EST Clinical Support [facility] MEDICINE [address] [place] [address] Jessica Conway RN documented as of this encounter Visit Diagnoses Not on filedocumented in this encounter Additional Health Concerns Assessment Noted Time PHQ-9 Depression Total Score: 21 023 11:26 AM EST documented as of this encounter Care Teams Sql Ssrs Developer Relationship Specialty Start Date End Date Carmen Bertrand DO 230 [place] [address] PCP - General Family Medicine 08/18/18 documented as of this encounter
--- OUTSIDE RECORDS SUMMARY | 2025-06-07 19:45 | XMS_ITS | Encounter Summary ---
Author Organization [employer] Address [address] [facility] 7 [place] [address] Care Team Providers Care Canal Driver Name Role Phone Carmen Bertrand DO Primary Care Provider + [phone] Reason for Visit * Reason Comments Med Refill Encounter Details Date Type Department Care Team (Late st Contact Info) Description 03/16/2024 Refill [facility] MED & PEDS [address] [place], [place] [phone] Carmen Bertrand DO 230 [place] [address] Chronic low back pain, unspecified back pain [...] Description 09/07/2025 2:00 PM EST Clinical Support [facility] MEDICINE 230 [place] [address] Jessica Conway, RULA documented as of this encounter Visit Diagnoses Diagnosis Chronic low back pain, unspecified back pain laterality, unspecified whether sciatica present documented in this encounter Additional Health Concerns Assessment Noted Time PHQ-9 Depression Total Score: 21 023 11:26 AM EST documented as of this encounter Care Teams Canal Driver Relationship Specialty Start Date End Date Carmen Bertrand DO 230 [place] [address] PCP - General Family Medicine 08/18/18 documented as of this encounter
--- OUTSIDE RECORDS SUMMARY | 2025-06-07 19:45 | XMS_ITS | Encounter Summary ---
Author Organization [employer] Address [address] [place] [address] 7 [place] [address] Care Team Providers Care Maint Mechanic Name Role Phone Carmen Bertrand DO Primary Care Provider + [phone] Reason for Visit * Reason Comments Med Refill Encounter Details Date Type Department Care Team ([facility] st Contact Info) Description 01/26/2025 Refill [facility] MEDICINE 230 [place], [place] [phone] Carmen Bertrand DO 230 [place], [place] [phone] Social History Tobacco Use Types Packs/Day Years [...] Description 09/07/2025 2:00 PM EST Clinical Support [facility] MEDICINE 230 [place] [address] Jessica Conway, RULA documented as of this encounter Visit Diagnoses Not on filedocumented in this encounter Additional Health Concerns Assessment Noted Time PHQ-9 Depression Total Score: 22 024 11:00 AM EDT documented as of this encounter Care Teams Maint Mechanic Relationship Specialty Start Date End Date Carmen Bertrand DO [address] [place] [address] PCP - General Family Medicine 08/18/18 documented as of this encounter
--- OUTSIDE RECORDS SUMMARY | 2025-06-07 19:45 | XMS_ITS | Encounter Summary ---
Author Organization [employer] Address [address] [place] [address] 7 [place] [address] Care Team Providers Care Box Liner Name Role Phone Carmen Bertrand DO Primary Care Provider + [phone] Reason for Visit * Reason Comments Med Refill Encounter Details Date Type Department Care Team ([facility] st Contact Info) Description 06/01/2025 Refill [facility] MEDICINE [address] [place], [place] [phone] Carmen Bertrand DO 230 [place], [place] [phone] Chronic low back pain, unspecified back pain [...] 2:00 PM EST Clinical Support [facility] MEDICINE [address] [place] [address] Jessica Conway RN documented as of this encounter Visit Diagnoses Diagnosis Chronic low back pain, unspecified back pain laterality, unspecified whether sciatica present documented in this encounter Additional Health Concerns Assessment Noted Time PHQ-9 Depression Total Score: 22 024 11:00 AM EDT documented as of this encounter Care Teams Box Liner Relationship Specialty Start Date End Date Carmen Bertrand DO [address] [place] [address] PCP - General Family Medicine 08/18/18 documented as of this encounter
== END 2025-06-07 14:43 | disposition home or self-care (01) ==
LOC: HO.MAMMO 14:42
PROVIDERS: PCP Family Medicine; Visit Provider Family Medicine
DX: Z12.31 Encounter for screening mammogram for malignant neoplasm of breast (principal)
CPT/HCPCS: 77063; 77067

== ENCOUNTER → 2025-06-07 14:45 | Outpatient (BNV) | payer OTHER, SELFPAY ==
[2025-01-27 10:17] VITALS: BP 128/72; BP 140/60; BP 148/88; BMI 63.7
== END ==
PROVIDERS: PCP Family Medicine; Visit Provider Internal Medicine
DX: Z12.31 Encounter for screening mammogram for malignant neoplasm of breast (principal)
CPT/HCPCS: 77063; 77067

== ENCOUNTER 2025-06-08 15:02 | Outpatient (AMB) | payer OTHER, SELFPAY ==
[2025-01-27 10:17] VITALS: BP 128/72; BP 140/60; BP 148/88; BMI 63.7
--- NOTE | 2025-06-08 15:07 | A.OFFVIS_ITS ---
Vital Signs 06/08/25 15:09 Height 5 ft 8 in Weight 339 lb 8.19 oz BMI 51.6 BP 135/62 Blood Pressure Location Lt brachial Position Sitting Pulse 57 Pulse Oximetry (%) 98 Oxygen Delivery Method Room Air Intake Visit Reasons: barretts Intake Note: Patient follow up for Delgado esophagus Patient cc: Constipation on and off, patient is feeling her throat is getting swollen/bump. deniesa ny other GI issues. Threading Machine Operator Required: Yes Threading Machine Operator Name: ARNAV Bautista Accompanied by: Self / Same As Patient Allergies penicillin G (PENICILLIN G) Allergy (Severe, Verified 06/08/25 15:07) DIFFICULTY BREATHING semaglutide (From Ozempic) Adverse Reaction (Severe, Verified 06/08/25 15:07) Stomach Upset HPI HPI barretts: Details: Patient is a Romanian speaking 49-year-old female with PMH of obesity, diabetes, OA, HTN and HLD. 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 Pt reports GERD and reflux sx well controlled on pantoprazole 20 mg, with resolution of n/v and heartburn. Mild odynophagia recurred over past wk?localized and provoked by swallowing. No fevers, cough, or infectious sx. States new constipation since colonoscopy and removal of 7 polyps earlier this yr; constipation not previously present, now requiring Rx agent. GLP-1 agonist injections for wt loss restarted after insurance approval; recognizes possible GI s/e but notes constipation started following colonoscopy, not initially with med. Reports significant wt loss (426 lb to 360s, now 330s range) with injections. No recent hospitalizations or acute GI flares. [facility] Medical History (Updated 06/09/25 @ 12:47 by Rosy Carrillo CNP) Hiatal hernia Odynophagia Pain of right clavicle Constipation Polyarticular osteoarthritis Tubular adenoma of colon Delgado esophagus Morbid obesity Hidradenitis suppurativa CAD (coronary artery disease) Subsequent non-ST elevation myocardial infarction (NSTEMI) within 4 weeks of initial infarction Non-ST elevation SD (NSTEMI) YAMILETH on CPAP Hyperlipidemia PTSD (post-traumatic stress disorder) Fatty liver Smoker Depression Obesity Leukocytosis Frequent UTI Asthma Mass of throat Chronic pain Kidney stone Migraine HTN (hypertension) Surgical History History of esophagogastroduodenoscopy (EGD) H/O excision of mass (06/28/24) Hx of cystoscopy Stented coronary artery History of heart artery stent History of lumpectomy of left breast (10/22/21) History of lithotripsy History of endometrial ablation Hx of colonoscopy History of breast lump/mass excision History of tonsillectomy H/O: hysterectomy Family History Father Hypertension Mother Hypertension Osteoporosis Hx of bilateral cataract extraction Paternal Grandmother Diabetes Sister Asthma Maternal Uncle Throat cancer Maternal Aunt Ovarian cancer Breast cancer Social History Household Members: Family Housing: Apartment Are you a primary residential child care counselor to a significant other at home: No Do you presently have visiting nurse or other home services: No Alcohol intake: never Comment: pt refusing alarms Patient Tobacco Use Status: Current everyday Tobacco user Tobacco use type: Cigarette Cigarette Packs Per Day: 0.5 Cigarettes Per Day: 10 Years Smoked: 30 e-Cigarette/Vaping Use: Never Used Second Hand Smoke Exposure: No Advance Directives Date on File: 10/28/22 service: No Current occupational status: unemployed and retired Review of Systems Const Reports as per HPI ENT Reports as per HPI Card Reports as per HPI Resp Reports as per HPI GI Reports as per HPI Reports as per HPI Physical Exam Vital Signs: Last Vital Signs Pulse 57 06/08/25 15:09 BP 135/62 06/08/25 15:09 Pulse Ox 98 06/08/25 15:09 Oxygen Delivery Method Room Air 06/08/25 15:09 BMI result Body Mass Index 51.6 Const General: healthy appearing, no acute distress, well developed and intoxicated appearing Nutritional Appearance: average body habitus Orientation/consciousness: patient oriented x3 HEENT Head: Yes normal to inspection, Yes normocephalic and Yes atraumatic Face and sinus: Yes normal facial exam Eyes General: appearance normal, both eyes and all related structures Neck Neck: Yes normal visual inspection Lymphatic: no lymphadenopathy noted Chest Other: pain to palp of right clavicle Resp Effort & Inspection: normal respiratory effort, able to speak in complete sentences, no tracheal deviation and symmetric chest movement Cardio Jugular venous distension: no JVD Neuro General: patient oriented x3 Gait exam (Neuro): Normal gait present Psych Appearance: grossly normal Mental Status: mental status grossly normal Speech and movement: Normal speech and movement present Affect: normal affect Attitude: cooperative Thought process: Normal thought process present Thought content: Normal thought content present Insight: Good insight present (Psych) Judgement: Good judgement present (Psych) Assessment & Plan Assessment & Plan (1) Delgado esophagus: Comment: 01/13/25 EGD with balloon dilation-esophagitis, duodenitis, gastritis, 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 New, mild odynophagia requires assessment. Additional testing: - Repeat barium swallow to evaluate for change in hiatal hernia or new pathology. - Neck/chest X-ray to r/o structural/musculoskeletal causes of localized pain. Medications: - Continue pantoprazole 20 mg PO qd; instructed on optimal timing (30?60 min before food) but may adjust if pt tolerates current regimen. - Monitor for GI s/e or any new sx. Lifestyle: - Reinforce low-acid diet, small meals, avoid late-night eating. - Patient education on Delgado?s and need for EGD surveillance in 3?5 yrs. Referrals: - None newly initiated, maintain GI follow-up. F/u Plan: - Reassess in 3 mo, or sooner if w/u (swallow study/X-ray) reveals significant findings or sx worsen. (2) Constipation: Code(s): K59.00 - Constipation, unspecified Category: Medical Qualifiers: Constipation type: unspecified constipation type Qualified Code(s): K59.00 - Constipation, unspecified Plan: Ongoing constipation requiring medication; onset after colonoscopy, persists with GLP-1 recognized as potential contributor but timeline suggests multifactorial etiology. Additional testing: - None at this time; if no improvement, consider further GI motility studies. Medications: - Add probiotic, 1 tab PO BID x 30 days. - Continue current constipation Rx as managed by PCP. Lifestyle: - Encourage dietary fiber, hydration, physical activity as tolerated; discuss exercise adaptation for arthritis (aquatic options, brief movement intervals). - Educational handout for bowel regimen and gut health provided. Referrals: - None at present. F/u Plan: - Monitor response to probiotic over 30 days; adjust regimen if no improvement or worsening. Plan Follow-up 3 months or sooner as needed Time: I spent a total of 30 minutes on the date of encounter which includes: Preparing to see the patient (reviewed previous documentation, test results and medical history) Performing a medically appropriate exam and/or evaluation Ordering medications, tests, and procedures Documenting clinical information in the health record Orders: Orders XR clavicle RT 06/08/25 M89.8X1 - Other specified disorders of bone, shoulder FL barium swallow 06/08/25 K44.9 - Diaphragmatic hernia without obstruction or gangrene, R13.10 - Dysphagia, unspecified Medications: New Lactobacillus acidophilus Take once tablet twice daily until complete 10,000 mmu cells PO BID 60 caps 0RF Coding Level of Care Code Established Pt Est Pt Level 3 (87800) Patient Type Established Diagnoses 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
[2025-06-08 15:09] VITALS: BP 135/62; PULSE 57; O2SAT 98; BMI 51.6
--- OUTSIDE RECORDS SUMMARY | 2025-06-08 21:19 | XMS_ITS | Encounter Summary ---
Author Organization [employer] Address [address] [place] [address] Care Team Providers Care Grad Intern Name Role Phone Carmen Bertrand DO Primary Care Provider + [phone] Reason for Visit * Reason Comments Med Refill Encounter Details Date Type Department Care Team (Late st Contact Info) Description 07/29/2022 Refill [facility] MEDICINE 230 [place], [place] [phone] Carmen Bertrand DO 230 [place] [address] Social History Tobacco Use Types Packs/Day Years [...] Description 09/07/2025 2:00 PM EST Clinical Support [facility] MEDICINE [address] [place] [phone] Jessica Conway RN documented as of this encounter Visit Diagnoses Not on filedocumented in this encounter Care Teams Grad Intern Relationship Specialty Start Date End Date Carmen Bertrand DO [address] [place], [place] [phone] PCP - General Family Medicine 08/18/18 documented as of this encounter
--- OUTSIDE RECORDS SUMMARY | 2025-06-08 21:19 | XMS_ITS | Encounter Summary ---
Author Organization [employer] Address [address] [facility] 7 [place] [address] Care Team Providers Care Staff Electrical Engineer Name Role Phone Carmen Bertrand DO Primary Care Provider + [phone] Reason for Visit * Reason Comments Med Refill Encounter Details Date Type Department Care Team (Late st Contact Info) Description 03/16/2024 Refill [facility] CHC MED & PEDS [address] [place], [place] [phone] Carmen Bertrand DO [address] [place] [address] Chronic low back pain, unspecified back pain [...] 2:00 PM EST Clinical Support [facility] MEDICINE [address] [place] [address] Jessica Conway, RULA documented as of this encounter Visit Diagnoses Diagnosis Chronic low back pain, unspecified back pain laterality, unspecified whether sciatica present documented in this encounter Additional Health Concerns Assessment Noted Time PHQ-9 Depression Total Score: 21 023 11:26 AM EST documented as of this encounter Care Teams Staff Electrical Engineer Relationship Specialty Start Date End Date Carmen Bertrand DO [address] [place] [address] PCP - General Family Medicine 08/18/18 documented as of this encounter
--- OUTSIDE RECORDS SUMMARY | 2025-06-08 21:19 | XMS_ITS | Encounter Summary ---
Author Organization [employer] Address [address] [place] [address] 7 [place] [address] Care Team Providers Care Assistant Technician Name Role Phone Carmen Bertrand DO Primary Care Provider + [phone] Reason for Visit * Reason Comments Med Refill Encounter Details Date Type Department Care Team ([facility] st Contact Info) Description 02/24/2024 Refill [facility] MEDICINE 230 [place], [place] [phone] Carmen Bertrand DO [address] [place] [address] Social History Tobacco Use Types Packs/Day Years [...] Description 09/07/2025 2:00 PM EST Clinical Support [facility] MEDICINE 230 [place] [address] Jessica Conway RN documented as of this encounter Visit Diagnoses Not on filedocumented in this encounter Additional Health Concerns Assessment Noted Time PHQ-9 Depression Total Score: 21 023 11:26 AM EST documented as of this encounter Care Teams Assistant Technician Relationship Specialty Start Date End Date Carmen Bertrand DO [address] [place] [address] PCP - General Family Medicine 08/18/18 documented as of this encounter
--- OUTSIDE RECORDS SUMMARY | 2025-06-08 21:19 | XMS_ITS | Encounter Summary ---
Author Organization [employer] Address [address] [place] [address] [address] [address] Care Team Providers Care Joint Yarner Name Role Phone Carmen Bertrand DO Primary Care Provider + [phone] Reason for Visit * Reason Comments Med Refill Encounter Details Date Type Department Care Team ([facility] Contact Info) Description 10/18/2022 Refill [facility] MEDICINE 230 [place], [place] [phone] Carmen Bertrand DO 230 [place], [place] [phone] Social History Tobacco Use Types Packs/Day Years [...] Upcoming Encounters Date Type Department Care Team ([facility] st Contact Info) Description 09/07/2025 2:00 PM EST Clinical Support [facility] MEDICINE [address] [place] [address] Jessica Conway RN documented as of this encounter Visit Diagnoses Not on filedocumented in this encounter Additional Health Concerns Assessment Noted Time PHQ-9 Depression Total Score: 16 023 12:22 PM EST documented as of this encounter Care Teams Joint Yarner Relationship Specialty Start Date End Date Carmen Bertrand DO [address] [place] [address] PCP - General Family Medicine 08/18/18 documented as of this encounter
--- OUTSIDE RECORDS SUMMARY | 2025-06-08 21:19 | XMS_ITS | Clinical Summary ---
Author Organization [employer] Address [address] [place] [address] 7 [place] [address] Care Team Providers Care Bale Coverer Name Role Phone RajeevCarmen jones Primary Care Provider + [phone] Allergies Active Allergy Reactions Criticality Noted Date [...] day. Active ergocalciferol (Vitamin D2) 1.25 MG (61982 UT) capsule Take 1 capsule (1.25 mg) [...] obesity with BMI of 50.0-59.9, adult (CMS/HCC) ([facility]) Inject 10 mg under the skin 1 [...] Morbid obesity with BMI of 50.0-59.9, adult ([facility] /[facility]) 06/07/2025 Long-term current use of opiate analgesic [...] Date Coronary arteriosclerosis 02/21/2023 BMI 50.0-59.9, adult ([facility]) 09/19/2022 06/07/2025 Class 3 severe obesity due [...] Encounters Date Type Department Care Team Description 06/08/2025 Refill [facility] [address] [place] [address] Catracho Barton MD Chronic pain of both knees 06/06/2025 Refill [facility] [place] [address] Carmen Bertrand DO Chronic low back pain, unspecified back pain laterality, unspecified whether sciatica present 06/01/2025 2:00 PM EDT Clinical Support [facility] [place] [address] Jessica Conway RN Long-term current use of opiate analgesic (Primary Dx) 06/01/2025 Travel 06/01/2025 Refill [facility] [address] [facility] [place] [address] Carmen Bertrand DO Chronic low back pain, unspecified back pain laterality, unspecified whether sciatica present 05/31/2025 Telephone [facility] Sana [facility] [place] [address] Carmen Bertrand DO telephone call; Prior Authorization ([facility] Caremark Form: Zepbound) 05/10/2025 Telephone [facility] [address] [place] [address] Carmen Bertrand DO Prior Authorization ([facility] PA: Mar[place]) 05/10/2025 Telephone [facility] [address] [place] [address] Carmen Bertrand DO Med Refill 05/10/2025 Refill [facility] [address] [place] [address] Carmen Bertrand DO Chronic low back pain, unspecified back pain laterality, unspecified whether sciatica present 04/27/2025 Refill [facility] [address] [place] [address] Carmen Bertrand DO Melasma; Nonintractable headache, unspecified chronicity pattern, unspecified headache type 04/11/2025 Refill [facility] [address] [place] [address] Carmen Bertrand DO Chronic low back pain, unspecified back pain laterality, unspecified whether sciatica present 04/05/2025 Orders Only GENERIC EXTERNAL DATA DEPARTMENT Provider, Generic External Data 04/04/2025 Refill [facility] [address] [place] [phone] Carmen Bertrand DO Hypertension, unspecified type; Chronic low back pain, unspecified back pain laterality, unspecified whether sciatica present 04/04/2025 Refill [facility] [address] [place], [place] [phone] Ирина Mckeon MD Hypertension, unspecified type 03/25/2025 Telephone [facility] [address] [place] [address] Carmen Bertrand DO chartprep 03/18/2025 11:30 AM EDT Office Visit [facility] [address] [place] [phone] Carmen Bertrand DO Essential hypertension (Primary Dx); Other hyperlipidemia; Major depression, recurrent, chronic (CMS/HCC); Coronary artery disease involving te-moak coronary artery of te-moak heart, unspecified whether angina present; Prediabetes; Mild persistent asthma without complication; Fatty liver; 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; Chronic migraine; Nephrolithiasis; Obstructive sleep apnea; Chronic bilateral low back pain without sciatica; Chronic pain of both knees; Hoarseness; Morbid obesity with BMI of 50.0-59.9, adult (CMS/[facility]); Healthcare maintenance; Chronic low back pain, unspecified back pain laterality, unspecified whether sciatica present 03/18/2025 Travel 03/17/2025 Telephone [facility] [address] [place], [place] [phone] Carmen Bertrand DO Chart Prep 03/14/2025 Refill [facility] [address] [place], [place] [phone] Carmen Bertrand, Chronic low back pain, unspecified back pain laterality, unspecified whether sciatica present 03/14/2025 Refill [facility] [address] [place], [place] [phone] Frances Austin MD 03/08/2025 Travel from Last [...] Support [facility] [address] [place] [address] Jessica Conway, RN Health Maintenance Due Date [...] of left foot Healthcare maintenance HIV ANTIBODY/ANTIGEN ([facility]) Routine 02/21/2023 2:35 PM EDT from Last 3 Months or Most Recently Relevant to Health Maintenance Results * POCT ANALISA-14 Urine Drug Screen (06/01/2025 2:10 PM EDT) Pathologist [facility] THC Negative Negative Cocaine Screen, Urine Negative [...] - 06/01/2025 2:10 PM EDT UTOX cup Lot#[id number] Exp. 05/24/26 Internal Pass Control Carmen Bertrand DO POINT OF CARE TEST ENTER/LANEY T ORDERABLES Final Result * High Sensitivity Troponin I (04/05/2025 9:42 AM EDT) Only the most recent of2 resultswithin the time period is included. Pathologist [facility] TROPONIN I HIGH SENSITIVITY <2.7 <3.5 - 17.0 ng/L [facility] Comment:The [employer] high sens itivity Troponin-I results should beused in conjunction with other diagnostic information suchas ECG, clinical observations and information, and patientsymptoms to aid in the diagnosis of NE. 04/05/2025 9:42 AM EDT 04/05/2025 9:44 AM EDT us Generic External Data Provider LAB BLOOD ORDERAB LES Final Result [facility] [address] [place] [phone] * XR Chest 2 Views (04/05/2025 6:17 AM EDT) Anatomical Region Laterality Modality Chest Radiographic Alejandrina ging 04/05/2025 6:17 AM EDT Narrative 04/05/2025 6:19 AM EDT [address] [address] XRay Report Signed Patient: Blaire Quiroz MR#: [id number] : 1975 Acct:[id number] Age/Sex: 50 / F ADM Date: 04/05/25 Loc: HO.ED Attending Dr: Ordering Physician: Generic ED Physician Date of Service: 04/05/25 Procedure(s): XR chest 2V Accession Number(s): [id number] cc: Generic ED Physician; Carmen Bertrand DO [...] in OV> 04/05/25617 DD/ 6 TD/TT: 04/05/25616 Web Content Producer: Procedure Note Donotuseinterpreter, Image - 04/05/[address] [address] XRay Report Signed Patient: Blaire QuirozMR#: [id number] : 1975Acct:[id number] Age/Sex: 50 / FADM Date: 04/05/25 Loc: HO.ED Attending Dr: Ordering Physician: Generic ED Physician Date of Service: 04/05/25 Procedure(s): XR chest 2V Accession Number(s): [id number] cc: Generic ED Physician; Carmen Bertrand DO [...] in OV> 04/05/25617 DD/ 6 TD/TT: 04/05/25616 Web Content Producer: [facility] External Provider IMG XR PROCEDURES Edited Result - Final * (ABNORMAL) Comprehensive Metabolic Panel, Fasting (04/05/2025 4:34 AM EDT) Sodium 141 135 - 145 mmol/L [facility] Potassium 3.6 3.3 - 5.1 mmol/L [facility] Chloride 109(H) 96 - 108 mmol/L [facility] Carbon Dioxide 22 22 - 29 mmol/L [facility] Anion Gap 14 12 - 20 [facility] Urea Nitrogen (BUN) 16 9 - 16 mg/dL [facility] Creatinine, Serum 0.87 0.5 - 1.4 mg/dL [facility] Creatinine Clr Calc Pharmacy 120.4 [facility] Comment:Provided height and weight: 167.64 cm,154.8 kg.eGFR (calculated from the MDRD study equation) and eCrCl(calculated from the Cockcroft-Gault equation) are based ondifferent parameters and may not yield comparable results.If eCrCl result is absurd, please check patient'sheight/weight. Estimated Glomerular Filt Rate >60 [facility] Comment:Chronic Kidney Disea se: Estimated GFR < 60 mL/min/1.37a0Fufnws Kidney Disease: Estimated GFR < 15 mL/min/1.73m2 Glucose Fasting 100(H) 60 - 99 mg/dL [facility] Comment:A fasting glucose fr om 100-125 mg/dl is considered impaired(pre-diabetes). Calcium 9.0 8.4 - 10.2 mg/dL [facility] Bilirubin, Total 0.4 0.0 - 1.0 mg/dL [facility] Aspartate Amino Transferase 22 5 - 31 U/L [facility] Alanine Aminotransferase 14 0 - 31 U/L [facility] Total Protein 7.1 6.5 - 8.0 g/dL [facility] Albumin Level 3.8 3.5 - 5.0 g/dL [facility] Alkaline Phosphatase 105 39 - 117 U/L [facility] 04/05/2025 4:34 AM EDT 04/05/2025 4:36 AM EDT us Generic External Data Provider LAB BLOOD ORDERAB LES Final Result [facility] [address] [place] [phone] * (ABNORMAL) CBC auto differential (04/05/2025 4:34 AM EDT) White Blood Count 11.6(H) 4.8 - 10.8 X10*3/uL [facility] Red Blood Count 4.07(L) 4.20 - 5.50 X10*6/uL [facility] Hemoglobin 12.9 12.0 - 16.0 g/dl [facility] Hematocrit 38.1 37.0 - 47.0 % [facility] Mean Corpuscular Volume 93.6 80.0 - 98.0 fL [facility] Mean Corpuscular Hemoglobin 31.7 27.0 - 33.0 pg [facility] Mean Corpuscular HGB Conc 33.9 31.0 - 35.0 g/dl [facility] Red Cell Distribution Width 13.5 11.0 - 16.0 % [facility] Platelet Count 288 160 - 400 X10*3/uL [facility] Mean Platelet Volume 9.5 9.4 - 12.3 fL [facility] Neutrophils Percent Auto 55.7 45 - 73 % [facility] Imm Gran Pct Auto 0.4 0.0 - 0.4 % [facility] Lymphocytes Percent Auto 32.7 20 - 40 % [facility] Monocytes Percent Auto 8.2 2 - 11 % [facility] Eosinophils Percent Auto 2.2 0 - 4 % [facility] Basophils Percent Auto 0.8 0 - 2 % [facility] NRBC Pct Auto 0.0 0.0 - 0.2 /100WBC [facility] Neutrophils Absolute Auto 6.5 2.0 - 8.3 x10*3/uL [facility] Imm Gran Abs Auto 0.05(H) 0.00 - 0.03 X10*3/uL [facility] Lymphocytes Absolute Auto 3.8 1.2 - 4.9 X10*3/uL [facility] Monocytes Absolute Auto 1.0 0.1 - 1.2 X10*3/uL [facility] Eosinophils Absolute Auto 0.3 0.0 - 0.4 X10*3/uL [facility] Basophils Absolute Auto 0.1 0.0 - 0.2 X10*3/uL [facility] NRBC Abs Auto 0.000 0.0 - 0.012 X10*3/uL [facility] 04/05/2025 4:34 AM EDT 04/05/2025 4:36 AM EDT us Generic External Data Provider LAB BLOOD ORDERAB LES Final Result [facility] [address] [place] [phone] * (ABNORMAL) Cologuard?? colon cancer screening (08/31/2024 10:33 AM EST) Cologuard Result Positive( A) Negative 09/07/2024 10:16 AM EST [employer] (CLIA #:[id number]) Comment: POSITIVE TEST RESULT. A positive Cologuard [...] Hamilton et al, N Engl J Med 2014;370(14):3430-1662.) Cologuard may produce a false negative or false positive result (no colorectal cancer or precancerous polyp present at colonoscopy follow up). A negative Cologuard test result does not guarantee the absence of CRC or advanced adenoma (pre-cancer). The current Cologuard screening interval is every 3 years. ([place] [employer] Society and U.S. Multi-Society Task Force). Cologuard performance data in a 10,000 patient pivotal study using colonoscopy as the reference method can be accessed at the following location: [email or web address].[email or web address]/results. Additional description of the Cologuard test process, warnings and precautions can be found at www.TabUprd.com. Stool specimen (specimen) 08/31/2024 10:33 AM EST 09/01/2024 11:06 AM EST us Carmen Bertrand DO LAB MOLECULAR DIAGNOSTICS OR DERABLES Final Result [employer] (CLIA #:[id number]) [place] [address], * Hemoglobin A1c (08/24/2024 11:57 AM EST) Hemoglobin A1c 6.0 <6.0 % [facility] Comment:Hemoglobin A1C Refer ence Range Adults: 4.8 - 6.0 % Non diabetic: < 6.0 % Goal: < 7.0 %Additional Action Suggested: > 8.0 %Note: Hemoglobin A1c results are invalid for patients with abnormal amounts of HbF. Blood transfusions may impact the HbA1c concentration in the patient sample. Estimated Average Glucose 126 mg/dL [facility] Comment:eAG = Estimated ave rage glucose which is %A1C expressed asaverage glucose, using the formula of the E1F-UwcdyzkCglnogw Glucose study (ADAG), Diabetes Care, Vol.31,#8,Mar. 2007 Blood Venous blood specimen / Unknown 08/24/2024 11:57 AM EST 08/24/2024 1:03 PM EST Carmen Bertrand DO LAB BLOOD ORDERABLES Final R esult [facility] [address] [place] [phone] * (ABNORMAL) Lipid Panel, Standard (08/24/2024 11:57 AM EST) Triglycerides 82 <150 mg/dL [facility] Comment:Desirable Triglyceri de: less than 150 mg/dLBorderline High Triglyceride 150-199 mg/dLHigh Triglyceride: 200-499 mg/dLVery High Triglyceride: greater than or equal to 5OO mg/dL Cholesterol 136 <200 mg/dL [facility] Comment:Desirable Cholestero l: less than 200 mg/dLBorderline High Cholesterol: 200-239 mg/dLHigh Cholesterol: greater than 239 mg/dL LDL Cholesterol Calculated 81 <100 mg/dL [facility] Comment:Desirable LDL: less than 100 mg/dLNear Optimal/Above Optimal LDL: 110- 129 mg/dLBorderline High LDL: 130-159 mg/dLHigh LDL: 160-189 mg/dLVery High LDL: greater than or equal to 190 mg/dL HDL Cholesterol 39(L) >40 mg/dL [facility] Comment:Desirable HDL: great er than 40 mg/dL Note: This HDL assay may give artificially low results in patients with liver disease. Blood Venous blood specimen / Unknown 08/24/2024 11:57 AM EST 08/24/2024 1:03 PM EST us Carmen Bertrand DO LAB BLOOD ORDERABLES Final R esult [facility] [address] [place] [phone] * BI US Breast Limited Bilateral (06/02/2024 2:00 PM EDT) Anatomical Region Laterality Modality Breast Bilateral Ultrasound 06/02/2024 2:00 PM EDT Narrative 06/03/2024 8:44 AM EDT [address] [place] [address] Ultrasound Report Signed Patient: Blaire Quiroz MR#: [id number] : 1975 Acct:[id number] Age/Sex: 49 / F ADM Date: 06/02/24 Loc: HO.MAMMO Attending Dr: Carmen Bertrand DO Ordering Physician: Carmen Bertrand DO Date of Service: 06/02/24 Procedure(s): US breast BI limited mamm only Accession Number(s): [id number] cc: Carmen Bertrand DO EXAMINATION: US DIAGNOSTIC [...] 06/03/24 0841 DD/ 1400 TD/TT: 06/02/24 1454 Web Content Producer: Procedure Note Donotuseinterpreter, Image - 06/03/2024 [facility] [address] [place] [address] Ultrasound Report Signed Patient: Blaire QuirozMR#: M [id number] : 1975Acct:[id number] Age/Sex: 49 / FADM Date: 06/02/24 Loc: HO.MAMMO Attending Dr: Carmen Bertrand DO Ordering Physician: Carmen Bertrand DO Date of Service: 06/02/24 Procedure(s): US breast BI limited mamm only Accession Number(s): [id number] cc: Carmen Bertrand DO EXAMINATION: US DIAGNOSTIC [...] Olmedo MD 06/03/2024 08:41 AM EDT Workstation: [employer] Dictated By: Shamir Olmedo MD Signed By: <Electronically signed by Shamir Olmedo MD in OV> 06/03/24 0841 DD/ 1400 TD/TT: 06/02/24 1454 Web Content Producer: Carmen Bertrand DO IMG US PROCEDURES Final Resu lt * Hepatitis C Antibody with Reflex to HCV, RNA, Quantitative, Real-Time PCR (04/27/2024 2:02 PM EDT) Hepatitis C Antibody Nonreactive Nonreactive [facility] Comment:Antibodies to HCV no t detected; does not exclude early acuteHCV infection. Blood Venous blood specimen / Unknown 04/27/2024 2:02 PM EDT 04/27/2024 4:01 PM EDT Carmen Bertrand DO LAB BLOOD ORDERABLES Final R esult [facility] [address] [place] [phone] * HIV Ab/Ag ([facility]) (02/21/2023 2:35 PM EDT) HIV AB/AG Nonreactive Nonreactive [facility] Comment:HIV-1 p24 Ag and/or HIV-1/HIV-2 Ab not detected.A test result that is nonreactive does not exclude thepossibility of exposure to or infection with HIV-1 and/orHIV-2. Nonreactive results in this assay for individualswith prior exposure to HIV-1 and/or HIV-2 may be due toantigen and antibody levels that are below the limit ofdetection of this assay.The [employer] Truck Mechanic Apprentice HIV Ag/Ab Combo assay result andsupplemental assay results should be interpreted inconjunction with the patient's clinical presentation,history and other laboratory results. If the results areinconsistent with clinical evidence, additional testing issuggested to confirm the result. 02/21/2023 2:35 PM EDT 02/21/2023 2:37 PM EDT [facility] External Provider LAB BLO OD ORDERABLES Final Result Performing Organization Address City/State/[facility] Co de Phone Number [facility] [address] [place] [phone] from Last 3 Months or Most Recently Relevant to Health Maintenance Insurance [facility] ONE CARE < [address] [id number] Care Teams Bale Coverer Relationship Specialty Start Date End Date Carmen Bertrand DO [address] [place] [phone] PCP - General Family Medicine 08/18/18
--- OUTSIDE RECORDS SUMMARY | 2025-06-08 21:19 | XMS_ITS | Encounter Summary ---
Author Organization [employer] Address [address] [place] [address] 7 [place] [address] Care Team Providers Care Assistant Production Manager Name Role Phone Carmen Bertrand DO Primary Care Provider + [phone] Reason for Visit * Reason Comments Med Refill Encounter Details Date Type Department Care Team ([facility] st Contact Info) Description 04/04/2025 Refill [facility] [address] [place], [place] [phone] Carmen Bertrand DO [address] [place], [place] [phone] Hypertension, unspecified type; Chronic low back pain, [...] Description 09/07/2025 2:00 PM EST Clinical Support [facility] [address] [place] [address] Jessica Conway RN documented as of this encounter Visit Diagnoses Diagnosis Hypertension, unspecified type Chronic low back pain, unspecified back pain laterality, unspecified whether sciatica present documented in this encounter Additional Health Concerns Assessment Noted Time PHQ-9 Depression Total Score: 22 024 11:00 AM EDT documented as of this encounter Care Teams Assistant Production Manager Relationship Specialty Start Date End Date Carmen Bertrand DO [address] [place] [phone] PCP - General Family Medicine 08/18/18 documented as of this encounter
--- OUTSIDE RECORDS SUMMARY | 2025-06-08 21:19 | XMS_ITS | Encounter Summary ---
Author Organization [employer] Address [address] [place] [address] [place] [address] Care Team Providers Care Quality Associate Name Role Phone Carmen Bertrand DO Primary Care Provider [phone] Encounter Details Date Type Department Care Team (Late st Contact Info) Description 08/13/2022 Orders Only [facility] [address] [place] [address] Carmen Perez LPN Social History Tobacco Use [...] Description 09/07/2025 2:00 PM EST Clinical Support [facility] [address] [place] [address] Jessica Conway, RN documented as of this encounter Visit Diagnoses Not on filedocumented in this encounter Care Teams Quality Associate Relationship Specialty Start Date End Date Carmen Bertrand DO [address] [place] [phone] PCP - General Family Medicine 08/18/18 documented as of this encounter
--- OUTSIDE RECORDS SUMMARY | 2025-06-08 21:19 | XMS_ITS | Encounter Summary ---
Author Organization [employer] Address [address] [place] [address] [address] [place] [address] Care Team Providers Care Timber Selector Name Role Phone Elza Carmen Primary Care Provider + [phone] Reason for Visit * Reason Comments Med Refill Encounter Details Date Type Department Care Team ([facility] st Contact Info) Description 03/08/2024 Refill [facility] [address] [place] [address] Rox Sutton MD [address] [place] [address] Pain Social History Tobacco Use Types Packs/Day [...] [facility] [address] [place] [address] Jessica Conway RN documented as of this encounter Visit Diagnoses Diagnosis Pain Generalized pain documented in this encounter Additional Health Concerns Assessment Noted Time PHQ-9 Depression Total Score: 21 023 11:26 AM EST documented as of this encounter Care Teams Timber Selector Relationship Specialty Start Date End Date Carmen Bertrand DO [address] [place] [address] PCP - General Family Medicine 08/18/18 documented as of this encounter
--- OUTSIDE RECORDS SUMMARY | 2025-06-08 21:19 | XMS_ITS | Encounter Summary ---
Author Organization [employer] Address [address] [place] [address] 7 [place] [address] Care Team Providers Care Draw Frame Operator Name Role Phone Carmen Bertrand DO Primary Care Provider [phone] Reason for Visit * Reason Onset Date Comments telephone call 05/31/2025 Prior Authorization 05/31/2025 [facility] Caremark Form: Zepbound Encounter Details Date Type Department Care Team ([facility] st Contact Info) Description 05/31/2025 Telephone [facility] MEDICINE [address] [place] [address] Carmen Bertrand DO [address] [place], [place] [phone] telephone call; Prior Authorization ([employer] Form: Zepbound) Social History Tobacco Use Types [...] PA for it. Best contact number is [phone] documented in this encounter Plan of Treatment Upcoming Encounters Date Type Department Care Team ([facility] st Contact Info) Description 09/07/2025 2:00 PM EST Clinical Support [address] [address] Jessica Conway, RULA documented as of this encounter Visit Diagnoses Not on filedocumented in this encounter Additional Health Concerns Assessment Noted Time PHQ-9 Depression Total Score: 22 024 11:00 AM EDT documented as of this encounter Care Teams Draw Frame Operator Relationship Specialty Start Date End Date Carmen Bertrand DO [address] [place] [address] PCP - General Family Medicine 08/18/18 documented as of this encounter
--- OUTSIDE RECORDS SUMMARY | 2025-06-08 21:19 | XMS_ITS | Encounter Summary ---
Author Organization [employer] Address [address] [facility] 7 [place] [address] Care Team Providers Care Insurance Examiner Name Role Phone Carmen Bertrand DO Primary Care Provider + [phone] Reason for Visit * Reason Comments Med Refill Encounter Details Date Type Department Care Team ([facility] st Contact Info) Description 07/22/2023 Refill [facility] [address] [place], [place] [phone] Carmen Bertrand DO [address] [place] [address] Hyperlipidemia, unspecified hyperlipidemia type Social History Tobacco [...] Description 09/07/2025 2:00 PM EST Clinical Support [facility] [address] [place] [address] Jessica Conway RN documented as of this encounter Visit Diagnoses Diagnosis Hyperlipidemia, unspecified hyperlipidemia type documented in this encounter Additional Health Concerns Assessment Noted Time PHQ-9 Depression Total Score: 21 023 11:26 AM EST documented as of this encounter Care Teams Insurance Examiner Relationship Specialty Start Date End Date Carmen Bertrand DO [address] [place] [address] PCP - General Family Medicine 08/18/18 documented as of this encounter
--- OUTSIDE RECORDS SUMMARY | 2025-06-08 21:19 | XMS_ITS | Encounter Summary ---
Author Organization [employer] Address [address] [facility] 7 [place] [address] Care Team Providers Care Post Acute Care Nurse Practitioner Name Role Phone Elza Carmen Primary Care Provider + [phone] Reason for Visit * Reason Comments Med Refill Encounter Details Date Type Department Care Team ([facility] st Contact Info) Description 06/08/2025 Refill [facility] [address] [place] [address] Catracho Barton MD [address] [place] [address] Chronic pain of both knees Social History Tobacco Use Types Packs/Day Years [...] 2:00 PM EST Clinical Support [facility] [address] [place] [address] Jessica Conway, RULA documented as of this encounter Visit Diagnoses Diagnosis Chronic pain of both knees documented in this encounter Additional Health Concerns Assessment Noted Time PHQ-9 Depression Total Score: 22 024 11:00 AM EDT documented as of this encounter Care Teams Post Acute Care Nurse Practitioner Relationship Specialty Start Date End Date Carmen Bertrand DO [address] [place] [address] PCP - General Family Medicine 08/18/18 documented as of this encounter
--- OUTSIDE RECORDS SUMMARY | 2025-06-08 21:19 | XMS_ITS | Encounter Summary ---
Author Organization [employer] Address [address] [place] [address] [place] [address] Care Team Providers Care Ornamental Plaster Sticker Name Role Phone Carmen Bertrand DO Primary Care Provider [phone]- [phone] Encounter Details Date Type Department Care Team (Late st Contact Info) Description 09/09/2022 Orders Only [facility] MED[facility] [address] [place] [id number] Azul Albrecht LPN Social History Tobacco Use [...] Description 09/07/2025 2:00 PM EST Clinical Support [facility] [address] [place] [phone] Jessica Conway, RULA documented as of this encounter Visit Diagnoses Not on filedocumented in this encounter Care Teams Ornamental Plaster Sticker Relationship Specialty Start Date End Date Carmen Bertrand DO [address] [place] [address] PCP - General Family Medicine 08/18/18 documented as of this encounter
--- OUTSIDE RECORDS SUMMARY | 2025-06-08 21:19 | XMS_ITS | Encounter Summary ---
Author Organization [employer] Address [address] [place] [address] [place] [address] Care Team Providers Care Cyber Incident Analyst Name Role Phone Carmen Bertrand DO Primary Care Provider [phone]- [phone] Encounter Details Date Type Department Care Team (Late st Contact Info) Description 09/09/2022 Orders Only [facility] [address] [place] [address] Carmen Perez LPN Social History Tobacco Use [...] 09/07/2025 2:00 PM EST Clinical Support [facility] 230 [place] [address] Jessica Conway, RN documented as of this encounter Visit Diagnoses Not on filedocumented in this encounter Care Teams Cyber Incident Analyst Relationship Specialty Start Date End Date Carmen Bertrand DO 230 [place] [address] PCP - General Family Medicine 08/18/18 documented as of this encounter
--- OUTSIDE RECORDS SUMMARY | 2025-06-08 21:20 | XMS_ITS | Encounter Summary ---
Author Organization [employer] Address [address] [place] [address] 7 [place] [address] Care Team Providers Care Picker Feeder Name Role Phone RajeevCarmen jones Primary Care Provider + [phone] Reason for Visit * Reason Comments Med Refill Encounter Details Date Type Department Care Team ([facility] st Contact Info) Description 02/03/2023 Refill [facility] MEDICINE [address] [place] [address] Leticia Ramirez MD 230 [place], [place] [phone] Nonintractable headache, unspecified chronicity pattern, unspecified headache [...] 09/07/2025 2:00 PM EST Clinical Support [facility] [address] [facility] [place] [address] Jessica Conway RN documented as of this encounter Visit Diagnoses Diagnosis Nonintractable headache, unspecified chronicity pattern, unspecified headache type documented in this encounter Additional Health Concerns Assessment Noted Time PHQ-9 Depression Total Score: 16 023 12:22 PM EST documented as of this encounter Care Teams Picker Feeder Relationship Specialty Start Date End Date Carmen Bertrand DO [address] [place] [address] PCP - General Family Medicine 08/18/18 documented as of this encounter
--- OUTSIDE RECORDS SUMMARY | 2025-06-08 21:20 | XMS_ITS | Encounter Summary ---
Author Organization [employer] Address [address] [place] [address] [place] [address] Care Team Providers Care Antenna Engineer Name Role Phone Carmen Bertrand DO Primary Care Provider + [phone] Reason for Visit * Reason Onset Date Comments Hospital Follow-up 11/12/2024 Encounter Details Date Type Department Care Team ([facility] Contact Info) Description 11/12/2024 Telephone [facility] [address] [place] [address] Carmen Bertrand DO 230 [place], [place] [phone] Hospital Follow-up Social History Tobacco Use Types [...] from pt requesting a HDF appt. Hospital: [facility] Date of admission: 11/07/2024 Discharge date: 11/12/2024 Diagnosed: heart attack *Send message to [facility] Clinical Care Coordinators documented in this encounter Plan of Treatment Upcoming Encounters Date Type Department Care Team (Late st Contact Info) Description 09/07/2025 2:00 PM EST Clinical Support [facility] [address] [place] [address] Jessica Conway, RULA documented as of this encounter Visit Diagnoses Not on filedocumented in this encounter Additional Health Concerns Assessment Noted Time PHQ-9 Depression Total Score: 22 024 11:00 AM EDT documented as of this encounter Care Teams Antenna Engineer Relationship Specialty Start Date End Date Carmen Bertrand DO [address] [place] [address] PCP - General Family Medicine 08/18/18 documented as of this encounter
--- OUTSIDE RECORDS SUMMARY | 2025-06-08 21:20 | XMS_ITS | Encounter Summary ---
Author Organization [employer] Address [address] [place] [address] 7 [place] [address] Care Team Providers Care Manager Science Name Role Phone Carmen Bertrand DO Primary Care Provider + [phone] Reason for Visit * Reason Comments Med Refill Encounter Details Date Type Department Care Team ([facility] st Contact Info) Description 02/04/2025 Refill [facility] MED[facility]INE 230 [place], [place] [phone] Carmen Bertrand DO 230 [place], [place] [phone] Chronic low back pain, unspecified back pain [...] Description 09/07/2025 2:00 PM EST Clinical Support [facility] [address] [place] [address] Jessica Conway RN documented as of this encounter Visit Diagnoses Diagnosis Chronic low back pain, unspecified back pain laterality, unspecified whether sciatica present documented in this encounter Additional Health Concerns Assessment Noted Time PHQ-9 Depression Total Score: 22 024 11:00 AM EDT documented as of this encounter Care Teams Manager Science Relationship Specialty Start Date End Date Carmen Bertrand DO [address] [place] [address] PCP - General Family Medicine 08/18/18 documented as of this encounter
--- OUTSIDE RECORDS SUMMARY | 2025-06-08 21:20 | XMS_ITS | Encounter Summary ---
Author Organization [employer] Address [address] [place] [address] 7 [place] [address] Care Team Providers Care Marine Technician Name Role Phone Carmen Bertrand DO Primary Care Provider + [phone] Reason for Visit * Reason Comments Med Refill Encounter Details Date Type Department Care Team ([facility] st Contact Info) Description 06/06/2025 Refill [facility] MEDICINE [address] [place], [place] [phone] Carmen Bertrand DO [address] [place], [place] [phone] Chronic low back pain, unspecified back pain [...] Description 09/07/2025 2:00 PM EST Clinical Support [facility] MED[facility]INE [address] [place] [address] Jessica Conway RN documented as of this encounter Visit Diagnoses Diagnosis Chronic low back pain, unspecified back pain laterality, unspecified whether sciatica present documented in this encounter Additional Health Concerns Assessment Noted Time PHQ-9 Depression Total Score: 22 024 11:00 AM EDT documented as of this encounter Care Teams Marine Technician Relationship Specialty Start Date End Date Carmen Bertrand DO [address] [place] [address] PCP - General Family Medicine 08/18/18 documented as of this encounter
--- OUTSIDE RECORDS SUMMARY | 2025-06-08 21:20 | XMS_ITS | Encounter Summary ---
Author Organization [employer] Address [address] [place] [address] 7 [place] [address] Care Team Providers Care [employer] Principal Name Role Phone Carmen Bertrand DO Primary Care Provider + [phone] Reason for Visit * Reason Comments Med Refill Encounter Details Date Type Department Care Team ([facility] st Contact Info) Description 06/01/2025 Refill [facility] MED[facility]INE [address] [place], [place] [phone] Carmen Bertrand DO 230 [place], [place] [phone] Chronic low back pain, unspecified back pain [...] Description 09/07/2025 2:00 PM EST Clinical Support [facility] [address] [place] [address] Jessica Conway RN documented as of this encounter Visit Diagnoses Diagnosis Chronic low back pain, unspecified back pain laterality, unspecified whether sciatica present documented in this encounter Additional Health Concerns Assessment Noted Time PHQ-9 Depression Total Score: 22 024 11:00 AM EDT documented as of this encounter Care Teams [employer] Principal Relationship Specialty Start Date End Date Carmen Bertrand DO [address] [place] [address] PCP - General Family Medicine 08/18/18 documented as of this encounter
--- OUTSIDE RECORDS SUMMARY | 2025-06-08 21:20 | XMS_ITS | Encounter Summary ---
Author Organization [employer] Address [address] [facility] 7 [place] [address] Care Team Providers Care Personnel Recruiter Name Role Phone Carmen Bertrand DO Primary Care Provider + [phone] Reason for Visit * Reason Comments Med Refill Encounter Details Date Type Department Care Team (Late st Contact Info) Description 05/12/2024 Refill [facility]S [address] [place], [place] [phone] Carmen Bertrand DO [address] [place] [address] Chronic low back pain, unspecified back pain [...] 2:00 PM EST Clinical Support [facility] MEDICINE [address] [place] [address] Jessica Conway RN documented as of this encounter Visit Diagnoses Diagnosis Chronic low back pain, unspecified back pain laterality, unspecified whether sciatica present documented in this encounter Additional Health Concerns Assessment Noted Time PHQ-9 Depression Total Score: 22 024 11:00 AM EDT documented as of this encounter Care Teams Personnel Recruiter Relationship Specialty Start Date End Date Carmen Bertrand DO [address] [place] [address] PCP - General Family Medicine 08/18/18 documented as of this encounter
--- OUTSIDE RECORDS SUMMARY | 2025-06-08 21:20 | XMS_ITS | Encounter Summary ---
Author Organization [employer] Address [address] [place] [address] 7 [place] [address] Care Team Providers Care Firmware Developer Name Role Phone Elza Carmen Primary Care Provider + [phone] Reason for Visit * Reason Comments Med Refill Encounter Details Date Type Department Care Team ([facility] st Contact Info) Description 01/13/2024 Refill [facility] MEDICINE [address] [place] [address] Rox Sutton MD [address] [place] [address] Pain Social History Tobacco Use Types Packs/Day [...] 2:00 PM EST Clinical Support [facility] MEDICINE [address] [place] [address] Jessica Conway RN documented as of this encounter Visit Diagnoses Diagnosis Pain Generalized pain documented in this encounter Additional Health Concerns Assessment Noted Time PHQ-9 Depression Total Score: 21 023 11:26 AM EST documented as of this encounter Care Teams Firmware Developer Relationship Specialty Start Date End Date Carmen Bertrand DO [address] [place] [address] PCP - General Family Medicine 08/18/18 documented as of this encounter
--- OUTSIDE RECORDS SUMMARY | 2025-06-08 21:20 | XMS_ITS | Encounter Summary ---
Author Organization [employer] Address [address] [place] [address] [facility] [place] [address] Care Team Providers Care Vascular Surgery Physician Name Role Phone Carmen Bertrand DO Primary Care Provider + [phone] Reason for Visit * Reason Comments Med Refill Encounter Details Date Type Department Care Team ([facility] st Contact Info) Description 11/20/2022 Refill [facility] MEDICINE [address] [place], [place] [phone] Carmen Bertrand DO [address] [place], [place] [phone] Morbid obesity with body mass index (BMI) [...] Description 09/07/2025 2:00 PM EST Clinical Support [facility] MEDICINE [address] [place] [address] Jessica Conway, RN documented as of this encounter Visit Diagnoses Diagnosis Morbid obesity with body mass index (BMI) of 50.0 to 59.9 in adult (HCC) documented in this encounter Additional Health Concerns Assessment Noted Time PHQ-9 Depression Total Score: 16 023 12:22 PM EST documented as of this encounter Care Teams Vascular Surgery Physician Relationship Specialty Start Date End Date Carmen Bertrand DO [address] [place] [address] PCP - General Family Medicine 08/18/18 documented as of this encounter
--- OUTSIDE RECORDS SUMMARY | 2025-06-08 21:20 | XMS_ITS | Encounter Summary ---
Author Organization [employer] Address [address] [place] [address] 7 [place] [address] Care Team Providers Care V Belt Skiver Name Role Phone Carmen Bertrand DO Primary Care Provider + [phone] Reason for Visit * Reason Comments Med Refill Encounter Details Date Type Department Care Team ([facility] st Contact Info) Description 01/26/2025 Refill [facility] [address] [place], [place] [phone] Carmen Bertrand DO 230 [place], [place] [phone] Social History Tobacco Use Types Packs/Day Years [...] Description 09/07/2025 2:00 PM EST Clinical Support [facility] MED[facility]INE [address] [place] [address] Jessica Conway, RULA documented as of this encounter Visit Diagnoses Not on filedocumented in this encounter Additional Health Concerns Assessment Noted Time PHQ-9 Depression Total Score: 22 024 11:00 AM EDT documented as of this encounter Care Teams V Belt Skiver Relationship Specialty Start Date End Date Carmen Bertrand DO [address] [place] [address] PCP - General Family Medicine 08/18/18 documented as of this encounter
== END 2025-06-08 15:50 | disposition home or self-care (01) ==
LOC: HO.HGI 15:02
PROVIDERS: PCP Family Medicine; Visit Provider Nurse Practitioner Family
DX: K22.70 Barrett's esophagus without dysplasia (principal); K59.00 Constipation, unspecified
CPT/HCPCS: 99213

== ENCOUNTER → 2025-06-08 15:02 | Outpatient (BNVA) | payer OTHER, SELFPAY ==
[2025-01-27 10:17] VITALS: BP 128/72; BP 140/60; BP 148/88; BMI 63.7
== END ==
PROVIDERS: PCP Family Medicine; Visit Provider Nurse Practitioner Family
DX: K22.70 Barrett's esophagus without dysplasia (principal); K59.00 Constipation, unspecified
CPT/HCPCS: 99212

== ENCOUNTER 2025-06-14 11:59 | Outpatient (AMB) | payer OTHER, SELFPAY ==
[2022-10-22 13:00] VITALS: BP 128/72; BP 148/88; BMI 63.7
[2025-01-27 10:17] VITALS: BP 128/72; BP 140/60; BP 148/88; BMI 63.7
--- NOTE | 2025-06-14 12:40 | A.OFFVIS_ITS ---
Vital Signs 06/14/25 12:41 Height 5 ft 8 in Weight 330 lb 11.094 oz BMI 50.3 BP 124/80 Blood Pressure Location Lt brachial Position Sitting Pulse 66 Intake Visit Reasons: 6 mth f/up Intake Note: 6 month follow-up c/o some palpitatoins Jet Pilot Required: Yes Jet Pilot Services: Jet Pilot Present Jet Pilot Name: Ernestina Mendoza Allergies penicillin G (PENICILLIN G) Allergy (Severe, Verified 06/08/25 15:07) DIFFICULTY BREATHING semaglutide (From Ozempic) Adverse Reaction (Severe, Verified 06/08/25 15:07) Stomach Upset Medication List - Last Reconciled 06/14/25 by Mars Hutchinson MD albuterol sulfate 90 mcg/actuation (Ventolin HFA) 2 puffs PO Q4-6H PRN albuterol sulfate 2.5 mg inhalation Q4-6H PRN allopurinol 100 mg PO DAILY 90 days amlodipine (Norvasc) 5 mg PO DAILY aspirin 81 mg PO DAILY atorvastatin (Lipitor) 80 mg PO BEDTIME benzoyl peroxide 10% 1 appl topical DAILY blood pressure test kit-large As directed cholecalciferol (vitamin D3) 50 mcg PO DAILY clopidogrel 75 mg PO DAILY doxycycline hyclate 100 mg PO BID econazole nitrate 1% 1 appl topical BID emtricitabine-tenofovir (TDF) 200-300 mg 1 tab PO DAILY ezetimibe 10 mg PO DAILY famotidine 40 mg PO BEDTIME PRN fluticasone propionate 50 mcg/actuation 2 sprays intranasal DAILY fluticasone propionate 110 mcg/actuation 2 puffs inhalation BID hydrochlorothiazide 12.5 mg PO DAILY hydroquinone 4% 1 appl topical BID isosorbide mononitrate ER 60 mg PO DAILY Lactobacillus acidophilus 10,000 mmu cells PO BID lisinopril 20 mg PO DAILY metoprolol succinate ER 50 mg PO DAILY metronidazole 0.75% 1 appl topical DAILY PRN nitroglycerin 0.4 mg sublingual Q5M PRN pantoprazole 20 mg PO DAILY pyridoxine (vitamin B6) 100 mg PO DAILY 90 days tirzepatide (weight loss) (Zepbound) mg subcut QWEEK topiramate 50 mg PO BID tramadol 50 mg PO Q8H PRN HPI Comments Details: Blaire comes for follow-up after 6 months. History was obtained with help of ocean freight manager. She continues to have intermittently have chest pain under stressful situation or when she is walking. She then takes sublingual nitroglycerin with resolution of symptoms. Chest pain feels like pressure in his chest. She has not had any significant symptoms at rest. She unfortunately continues to smoke about 10 cigarettes a day. She takes all her medications reg ularly. No heart failure symptoms. [facility] Medical History (Updated 06/14/25 @ 13:02 by Mars Hutchinson MD) Hiatal hernia Odynophagia Pain of right clavicle Constipation Polyarticular osteoarthritis Tubular adenoma of colon Delgado esophagus Morbid obesity Hidradenitis suppurativa CAD (coronary artery disease) Subsequent non-ST elevation myocardial infarction (NSTEMI) within 4 weeks of initial infarction Non-ST elevation MN (NSTEMI) YAMILETH on CPAP Hyperlipidemia PTSD (post-traumatic stress disorder) Fatty liver Smoker Depression Obesity Leukocytosis Frequent UTI Asthma Mass of throat Chronic pain Kidney stone Migraine HTN (hypertension) Surgical History History of esophagogastroduodenoscopy (EGD) H/O excision of mass (06/28/24) Hx of cystoscopy Stented coronary artery History of heart artery stent History of lumpectomy of left breast (10/22/21) History of lithotripsy History of endometrial ablation Hx of colonoscopy History of breast lump/mass excision History of tonsillectomy H/O: hysterectomy Family History Father Hypertension Mother Hypertension Osteoporosis Hx of bilateral cataract extraction Paternal Grandmother Diabetes Sister Asthma Maternal Uncle Throat cancer Maternal Aunt Ovarian cancer Breast cancer Social History Household Members: Family Housing: Apartment Are you a primary child care supervisor to a significant other at home: No Do you presently have visiting nurse or other home services: No Alcohol intake: never Comment: pt refusing alarms Patient Tobacco Use Status: Current everyday Tobacco user Tobacco use type: Cigarette Cigarette Packs Per Day: 0.5 Cigarettes Per Day: 10 Years Smoked: 30 e-Cigarette/Vaping Use: Never Used Second Hand Smoke Exposure: No Advance Directives Date on File: 10/28/22 service: No Current occupational status: unemployed and retired Review of Systems Const Denies chills, Denies fatigue, Denies fever(s), Denies frequent falls, Denies weakness, Denies weight gain and Denies weight loss ENT Denies dizziness Card Reports chest pain, Denies leg edema, Denies lightheadedness, Reports palpitations, Denies dyspnea, Denies dyspnea on exertion, Denies orthopnea and Denies other (loss of consciousness) Resp Denies cough, Denies dyspnea and Denies dyspnea on exertion GI Denies hematochezia and Denies change in stool character Musc Denies abnormal gait, Denies muscle weakness, Denies numbness, Denies radiating pain into limb and Denies tingling Neuro Denies abnormal gait, Denies dizziness, Denies frequent falls, Denies numbness, Denies tingling and Denies weakness Endo Denies fatigue and Reports palpitations Physical Exam Vital Signs: Last Vital Signs Pulse 66 06/14/25 12:41 BP 124/80 06/14/25 12:41 BMI result Body Mass Index 50.3 Const General: cooperative, healthy appearing, comfortable and no acute distress Orientation/consciousness: patient oriented x3 Neck Neck: Yes normal visual inspection and Yes no JVD Resp Effort & Inspection: normal respiratory effort Auscultation: clear to auscultation bilaterally, no crackles, no rales, no rhonchi and no wheezes Cardio Rate: regular rate Rhythm: regular rhythm Heart sounds: S1 normal heart sound present, S2 normal heart sound present, no gallops, no murmurs and no rubs Neuro General: patient oriented x3 Extrem General: Yes normal to inspection, No no pedal edema and No calf tenderness Psych Appearance: grossly normal Mental Status: mental status grossly normal Speech and movement: Normal speech and movement present Assessment & Plan Assessment & Plan (1) CAD (coronary artery disease): Comment: Lad stent 2022 Code(s): I25.10 - Atherosclerotic heart disease of [place] coronary artery without angina pectoris Category: Medical Plan: Coronary artery disease prior LAD stenting for acute coronary syndrome and subsequently underwent cardiac catheterization again for elevated troponins and abnormal EKGs and reduced EF which showed patent stent but moderate disease in his left main. She was then started on antianginal therapy. Continues to have symptoms suggestive of angina under stressful situations her with walking. Will refer for phase 2 cardiac rehabilitation to improve her exercise capacity reduced a burden of angina. Will also increase isosorbide to 120 mg daily. Continue metoprolol and amlodipine therapy. Continue lifelong aspirin therapy. Continue high-intensity statin therapy. Advised lipid panel in near future. Complete smoking cessation was advised and she says she is trying. She can not tolerate smoking cessation therapy due to fast heart rate/palpitations. (2) HTN (hypertension): Code(s): I10 - Essential (primary) hypertension Category: Medical Qualifiers: Hypertension type: primary hypertension Qualified Code(s): I10 - Essential (primary) hypertension Plan: Hypertension which is currently optimized. Continue current therapy importance of good blood pressure control was discussed. Target goal blood pressure less than 130/84. Aggressive weight loss program will suggest a it. Will follow up in the clinic in 6 months time, sooner PRN. Thank you for allowing me to partake in her care Orders: Orders Lipid Panel Today I25.10 - Atherosclerotic heart disease of [place] coronary artery without angina pectoris Cardiac Rehab Today I20.8 - Other forms of angina pectoris, I25.10 - Atherosclerotic heart disease of [place] coronary artery without angina pectoris Medications: New isosorbide mononitrate ER 120 mg PO DAILY 30 tabs 5RF Discontinued isosorbide mononitrate ER Dose increased Discontinued Reason: Doctor's Order 60 mg PO DAILY 30 tabs 5RF Coding Level of Care Code Est Pt Level 4 (20458) Complex EM visit Add On G2211 Diagnoses CAD (coronary artery disease) I25.10 Primary hypertension I10 Hypertension type: primary hypertension
[2025-06-14 12:41] VITALS: BP 124/80; PULSE 66; BMI 50.3
--- OUTSIDE RECORDS SUMMARY | 2025-06-14 15:19 | XMS_ITS | Encounter Summary ---
Author Organization [employer] Address [address] [facility] 7 [place] [address] Care Team Providers Care Senior Internal Auditor Name Role Phone Elza Carmen Primary Care Provider + [phone] Reason for Visit * Reason Comments Med Refill Encounter Details Date Type Department Care Team ([facility] st Contact Info) Description 06/08/2025 Refill [facility] [address] [place] [address] Catracho Barton MD [address] [place] [address] Chronic pain of both knees Social History [...] Description 09/07/2025 2:00 PM EST Clinical Support [facility] [address] [place] [address] Jessica Conway, RULA documented as of this encounter Visit Diagnoses Diagnosis Chronic pain of both knees documented in this encounter Additional Health Concerns Assessment Noted Time PHQ-9 Depression Total Score: 22 024 11:00 AM EDT documented as of this encounter Care Teams Senior Internal Auditor Relationship Specialty Start Date End Date Carmen Bertrand DO [address] [place] [address] PCP - General Family Medicine 08/18/18 documented as of this encounter
--- OUTSIDE RECORDS SUMMARY | 2025-06-14 15:20 | XMS_ITS | Encounter Summary ---
Author Organization [employer] Address [address] [place] [address] 7 [place] [address] Care Team Providers Care On Site Construction Superintendent Name Role Phone RajeevCarmen jones Primary Care Provider + [phone] Reason for Visit * Reason Comments Med Refill Encounter Details Date Type Department Care Team ([facility] st Contact Info) Description 02/03/2023 Refill [facility] MED[facility]INE [address] [place] [address] Leticia Ramirez MD [address] [place], [place] [phone] Nonintractable headache, unspecified chronicity pattern, unspecified headache [...] [facility] [address] [facility] [place] [address] Jessica Conway RN documented as of this encounter Visit Diagnoses Diagnosis Nonintractable headache, unspecified chronicity pattern, unspecified headache type documented in this encounter Additional Health Concerns Assessment Noted Time PHQ-9 Depression Total Score: 16 023 12:22 PM EST documented as of this encounter Care Teams On Site Construction Superintendent Relationship Specialty Start Date End Date Carmen Bertrand DO [address] [place] [address] PCP - General Family Medicine 08/18/18 documented as of this encounter
--- OUTSIDE RECORDS SUMMARY | 2025-06-14 15:20 | XMS_ITS | Encounter Summary ---
Author Organization [employer] Address [address] [facility] 7 [place] [address] Care Team Providers Care Deliverer Food Name Role Phone Carmen Bertrand DO Primary Care Provider + [phone] Reason for Visit * Reason Comments Med Refill Encounter Details Date Type Department Care Team (Late st Contact Info) Description 03/16/2024 Refill [facility] [place] [facility] [address] [place], [place] [phone] Carmen Bertrand DO [address] [place] [address] Chronic low back pain, unspecified back pain [...] 2:00 PM EST Clinical Support [facility] [place] [facility] [address] [place] [address] Jessica Conway, RULA documented as of this encounter Visit Diagnoses Diagnosis Chronic low back pain, unspecified back pain laterality, unspecified whether sciatica present documented in this encounter Additional Health Concerns Assessment Noted Time PHQ-9 Depression Total Score: 21 023 11:26 AM EST documented as of this encounter Care Teams Deliverer Food Relationship Specialty Start Date End Date Carmen Bertrand DO [address] [place] [address] PCP - General Family Medicine 08/18/18 documented as of this encounter
--- OUTSIDE RECORDS SUMMARY | 2025-06-14 15:20 | XMS_ITS | Encounter Summary ---
Author Organization [employer] Address [address] [place] [address] [facility] [place] [address] Care Team Providers Care Urban Forester Name Role Phone Carmen Bertrand DO Primary Care Provider + [phone] Reason for Visit * Reason Comments Med Refill Encounter Details Date Type Department Care Team ([facility] Contact Info) Description 10/18/2022 Refill [facility] [address] [place], [place] [phone] Carmen Bertrand DO [address] [place], [place] [phone] Social History Tobacco Use Types Packs/Day Years [...] Upcoming Encounters Date Type Department Care Team ([facility] st Contact Info) Description 09/07/2025 2:00 PM EST Clinical Support [facility] [address] [place] [address] Jessica Conway RN documented as of this encounter Visit Diagnoses Not on filedocumented in this encounter Additional Health Concerns Assessment Noted Time PHQ-9 Depression Total Score: 16 023 12:22 PM EST documented as of this encounter Care Teams Urban Forester Relationship Specialty Start Date End Date Carmen Bertrand DO [address] [place] [address] PCP - General Family Medicine 08/18/18 documented as of this encounter
--- OUTSIDE RECORDS SUMMARY | 2025-06-14 15:20 | XMS_ITS | Encounter Summary ---
Author Organization [employer] Address [address] [place] [address] [place] [address] Care Team Providers Care Sales Representative [employer] Name Role Phone Carmen Bertrand DO Primary Care Provider [phone] Encounter Details Date Type Department Care Team (Late st Contact Info) Description 08/13/2022 Orders Only [facility]S [address] [place] [address] Carmen Perez LPN Social History Tobacco Use [...] Description 09/07/2025 2:00 PM EST Clinical Support [facility] [address] [place] [address] Jessica Conway, RN documented as of this encounter Visit Diagnoses Not on filedocumented in this encounter Care Teams Sales Representative [employer] Relationship Specialty Start Date End Date Carmen Bertrand DO [address] [place] [id number] PCP - General Family Medicine 08/18/18 documented as of this encounter
--- OUTSIDE RECORDS SUMMARY | 2025-06-14 15:20 | XMS_ITS | Clinical Summary ---
Author Organization [email or web address] Address [address] [place] [address] 7 [place] [address] Care Team Providers Care Linen Worker Name Role Phone RajeevCarmen jones Primary Care Provider + [phone] Allergies Active Allergy Reactions Criticality Noted Date [...] day. Active ergocalciferol (Vitamin D2) 1.25 MG (26027 UT) capsule Take 1 capsule (1.25 mg) [...] obesity with BMI of 50.0-59.9, adult (CMS/HCC) ([facility]) Inject 10 mg under the [...] muscle spasms. 60 tablet 2 025 Active naloxone (Narcan) 4 mg/0.1 mL nasal sprayIndications: Chronic pain of both knees FOR SUSPECTED OPIOID OVERDOSE. SPRAY 0.1mL IN ONE NOSTRIL. REPEAT IN ALTERNATE NOSTRIL 2-3 MINUTES IF NEEDED. SEEK MEDICAL ATTENTION IMMEDIATELY EVEN IF PATIENT RESPONDS. 2 each 3 025 Active baclofen (Lioresal) 10 MG tabletIndications [...] cleanup (will not trigger notification to Pharmacy)) naloxone (Narcan) 4 mg/0.1 mL nasal sprayIndications: Chronic pain of both knees Administer 1 spray (4 mg) into affected nostril(s) if needed for opioid reversal. May repeat every 2-3 minutes if needed, alternating nostrils, until medical assistance becomes available. 2 each 3 024 2024 Discontinued aspirin (Aspirin Low Dose) 81 MG chewable [...] Morbid obesity with BMI of 50.0-59.9, adult ([facility]) 06/07/2025 Long-term current use of opiate analgesic [...] Date Coronary arteriosclerosis 02/21/2023 BMI 50.0-59.9, adult ([facility]) 09/19/2022 06/07/2025 Class 3 severe obesity due [...] Type Department Care Team Description 06/08/2025 Refill [facility] [address] [place] [address] Catracho Barton MD Chronic pain of both knees 06/07/2025 Orders Only [facility] [address] [place] [address] Carmen Bertrand DO 06/06/2025 Refill [facility] [address] [place] [address] Carmen Bertrand DO Chronic low back pain, unspecified back pain laterality, unspecified whether sciatica present 06/01/2025 2:00 PM EDT Clinical Support [facility] [address] [place] [address] Jessica Conway RN Long-term current use of opiate analgesic (Primary Dx) 06/01/2025 Travel 06/01/2025 Refill [facility] [address] [place] [address] Carmen Bertrand DO Chronic low back pain, unspecified back pain laterality, unspecified whether sciatica present 05/31/2025 Telephone [facility] [address] [place] [address] Carmen Bertrand DO telephone call; Prior Authorization ([facility] [employer] Form: [employer]) 05/10/2025 Telephone [facility] [address] [place] [address] Carmne Bertrand DO Prior Authorization ([facility] PA: Mar[place]) 05/10/2025 Telephone [facility] [address] [place] [address] Carmen Bertrand DO Med Refill 05/10/2025 Refill [facility] [address] [place] [address] Carmen Bertrand DO Chronic low back pain, unspecified back pain laterality, unspecified whether sciatica present 04/27/2025 Refill [facility] [address] [place] [address] Carmen Bertrand DO Melasma; Nonintractable headache, unspecified chronicity pattern, unspecified headache type 04/11/2025 Refill [facility] [address] [place] [address] Carmen Bertrand DO Chronic low back pain, unspecified back pain laterality, unspecified whether sciatica present 04/05/2025 Orders Only GENERIC EXTERNAL DATA DEPARTMENT Provider, Generic External Data 04/04/2025 Refill [facility] [address] [place] [address] Carmen Bertrand DO Hypertension, unspecified type; Chronic low back pain, unspecified back pain laterality, unspecified whether sciatica present 04/04/2025 Refill [facility] [address] [place], [place] [phone] Ирина Mckeon MD Hypertension, unspecified type 03/25/2025 Telephone [facility] [address] [place] [address] Carmen Bertrand DO chartprep 03/18/2025 11:30 AM EDT Office Visit [facility] [address] [place] [address] Carmen Bertrand DO Essential hypertension (Primary Dx); Other hyperlipidemia; Major depression, recurrent, chronic (CMS/HCC); Coronary artery disease involving [place] coronary artery of [place] heart, unspecified whether angina present; Prediabetes; Mild persistent asthma without complication; Fatty liver; 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; Chronic migraine; Nephrolithiasis; Obstructive sleep apnea; Chronic bilateral low back pain without sciatica; Chronic pain of both knees; Hoarseness; Morbid obesity with BMI of 50.0-59.9, adult (CMS/HCC); Healthcare maintenance; Chronic low back pain, unspecified back pain laterality, unspecified whether sciatica present 03/18/2025 Travel 03/17/2025 Telephone [facility] [address] [place] [address] Carmen Bertrand DO Chart Prep 03/14/2025 Refill [facility] [address] [place] [address] Carmen Bertrand DO Chronic low back pain, unspecified back pain laterality, unspecified whether sciatica present 03/14/2025 Refill [facility] [address] [place] [address] Frances Austin MD from Last 3 Months Immunizations Immunization Administration [...] Clinical Support [facility] [address] [place] [phone] Jessica Conway, RN Health Maintenance Due Date Last Done Comments CT Colonography 1975 Colonoscopy 1975 FIT 1975 Sigmoidoscopy 1975 Family Planning (PISQ) 1991 Hepatitis A Vaccines (1 of 2 - Risk 2-dose series) 1995 Depression Monitoring 03/27/2025 09/27/2024, 024 COVID-19 Vaccine ( season) 2025 06/07/2021, 01/29/2021 Influenza Vaccine (#1) 2025 4, 05/07/2022, 05/07/2022, Additional history exists Diabetes: Hemoglobin A1C 08/24/2025 025, 04/27/2024, 04/27/2024, Additional history exists FOBT 08/31/2025 08/31/2024 Alcohol/Substance Use Screening 09/27/2025 09/27/2024 Disability Screening 11/30/2025 11/30/2024 SDOH Screening 02/24/2026 02/24/2025 Tobacco Screening 03/18/2026 03/18/2025 Zoster Vaccines (1 of 2) 2026 Mammogram 06/07/2027 06/07/2025, 05/18, 04/29/2024, Additional history exists Colorectal Cancer Screening 08/31/2027 [...] Procedure Name Priority Date/Time Associated Diagnosis Comments BI MAMMOGRAM SCREENING TOMOSYNTHESIS BILATERAL Routine 06/07/2025 3:00 PM EDT POCT ANALISA-14 URINE DRUG SCREEN Routine 06/01/2025 [...] without sciatica Chronic pain of both knees YMAILETH (obstructive sleep apnea) Tinea pedis of left foot Breast abscess Hoarseness Decreased hearing of right ear Healthcare maintenance BMI 50.0-59.9, adult (CMS/HCC) Encounter for screening for malignant neoplasm of colon HEPATITIS C AB W/REFL TO HCV RNA, [...] of left foot Healthcare maintenance HIV ANTIBODY/ANTIGEN ([facility]) Routine 02/21/2023 2:35 PM EDT from Last 3 Months or Most Recently Relevant to Health Maintenance Results * BI Mammogram Screening Tomosynthesis Bilateral (06/07/2025 3:00 PM EDT) Anatomical Region Laterality Modality Breast Bilateral Mammography 06/07/2025 3:00 PM EDT Narrative 06/10/2025 11:46 AM EDT [facility] [address] [place] [address] Mammography Report Signed Patient: Blaire Quiroz MR#: [id number] : 1975 Acct:[id number] Age/Sex: 50 / F ADM Date: 06/07/25 Loc: HO.MAMMO Attending Dr: Carmen Bertrand DO Ordering Physician: Carmen Bertrand DO Results: 0I ncomplete- Need Additional Imaging Evaluation Date of Service: 06/07/25 Follow Up: Additional Imagi ng Procedure(s): MM tomosynthesis screening BI Accession Number(s): [id number] cc: Carmen Bertrand DO Reason For Exam: Z12.31 EXAMINATION: MM SCREENING DIGITAL BREAST TOMOSYNTHESIS, BILATERAL CLINICAL INFORMATION: Screening. Asymptomatic. COMPARISON: Mammography: Comparison is made with available priors TECHNIQUE: Digital breast mammography with tomosynthesis is performed in both the craniocaudal and mediolateral oblique views along with computer-aided detection (CAD). FINDINGS: There are scattered areas of fibroglandular density. Left: Left breast postsurgical changes. Focal asymmetry lower central breast anterior depth. No suspicious calcifications or other abnormal findings. Right: Asymmetry seen far posterior depth retroareolar region on cc view image 2/2. No suspicious calcifications or other abnormal findings. MM/MM tomosynthesis screening BI IMPRESSION: Additional imaging is recommended ASSESSMENT: BI-RADS Category 0: Incomplete - Need additional Imaging Evaluation RECOMMENDATION: 1. Additional views of the bilateral breasts. 2. Targeted ultrasound if warranted after review of the additional views. 3. Radiology department staff will contact the patient for additional imaging. Additional Imaging required Electronically signed by: Ciarra García DO 06/10/2025 11:43 AM EDT RP Dictated By: Ciarra García DO Signed By: <Electronically signed by Ciarra García DO in OV> 06/10/25 1143 DD/ 1500 TD/TT: 06/07/25 1530 Lay Brother: Procedure Note Donotuseinterpreter, Image - [facility] [address] [place] [address] Mammography Report Signed Patient: Blaire Quiroz#: M [id number] : 1975Acct:[id number] Age/Sex: 50 / FADM Date: 06/07/25 Loc: HO.MAMMO Attending Dr: Carmen Bertrand DO Ordering Physician: Carmen Bertrandults: 0I ncomplete- Need Additional Imaging Evaluation Date of Service: 06/07/25Follow Up: Additional Imagi ng Procedure(s): MM tomosynthesis screening BI Accession Number(s): [id number] cc: Carmen Bertrand DO Reason For Exam: Z12.31 EXAMINATION: MM SCREENING DIGITAL BREAST TOMOSYNTHESIS, BILATERAL CLINICAL INFORMATION: Screening. Asymptomatic. COMPARISON: Mammography: Comparison is made with available priors TECHNIQUE: Digital breast mammography with tomosynthesis is performed in both the craniocaudal and mediolateral oblique views along with computer-aided detection (CAD). FINDINGS: There are scattered areas of fibroglandular density. Left: Left breast postsurgical changes. Focal asymmetry lower central breast anterior depth. No suspicious calcifications or other abnormal findings. Right: Asymmetry seen far posterior depth retroareolar region on cc view image 2/2. No suspicious calcifications or other abnormal findings. MM/MM tomosynthesis screening BI IMPRESSION: Additional imaging is recommended ASSESSMENT: BI-RADS Category 0: Incomplete - Need additional Imaging Evaluation RECOMMENDATION: 1. Additional views of the bilateral breasts. 2. Targeted ultrasound if warranted after review of the additional views. 3. Radiology department staff will contact the patient for additional imaging. Additional Imaging required Electronically signed by: Ciarra García DO 06/10/2025 11:43 AM EDT Dictated By: Ciarra García DO Signed By: <Electronically signed by Ciarra García DO in OV> 06/10/25 1143 DD/ 1500 TD/TT: 06/07/25 1530 Lay Brother: Carmen Bertrand DO IMG BI PROCEDURES Final Resu lt * POCT ANALISA-14 Urine Drug Screen (06/01/2025 [...] - 06/01/2025 2:10 PM EDT UTOX cup Lot#[id number] Exp. 05/24/26 Internal Pass Control Carmen Bertrand DO POINT OF CARE TEST ENTER/LANEY T ORDERABLES Final Result * High Sensitivity Troponin I (04/05/2025 9:42 AM EDT) Only the most recent of2 resultswithin the time period is included. TROPONIN I HIGH SENSITIVITY <2.7 <3.5 - 17.0 ng/L [facility] Comment:The [employer] high sens itivity Troponin-I results should beused in conjunction with other diagnostic information suchas ECG, clinical observations and information, and patientsymptoms to aid in the diagnosis of SD. 04/05/2025 9:42 AM EDT 04/05/2025 9:44 AM EDT Generic External Data Provider LAB BLOOD ORDERAB LES Final Result Performing Organization Address City/State/[facility] Co de Phone Number [facility] [address] [place] [phone] * XR Chest 2 Views (04/05/2025 6:17 AM EDT) Anatomical Region Laterality Modality Chest Radiographic Alejandrina ging 04/05/2025 6:17 AM EDT Narrative 04/05/2025 6:19 AM EDT [address] [address] XRay Report Signed Patient: Blaire Quiroz MR#: M [id number] : 1975 Acct:[id number] Age/Sex: 50 / F ADM Date: 04/05/25 Loc: .ED Attending Dr: Ordering Physician: Generic ED Physician Date of Service: 04/05/25 Procedure(s): XR chest 2V Accession Number(s): [id number] cc: Generic ED Physician; Carmen Bertrand DO [...] in OV> 04/05/25617 DD/ 6 TD/TT: 04/05/25616 Lay Brother: Procedure Note Geno, Image - 04/05/[address] [address] XRay Report Signed Patient: Blarie Quiroz#: M [id number] : 1975Acct:[id number] Age/Sex: 50 / FADM Date: 04/05/25 Loc: .ED Attending Dr: Ordering Physician: Generic ED Physician Date of Service: 04/05/25 Procedure(s): XR chest 2V Accession Number(s): [id number] cc: Generic ED Physician; Carmen Bertrand DO [...] in OV> 04/05/25617 DD/ 6 TD/TT: 04/05/25616 Lay Brother: [facility] External Provider IMG XR PROCEDURES Edited Result - Final * (ABNORMAL) Comprehensive Metabolic Panel, Fasting (04/05/2025 4:34 AM EDT) Sodium 141 135 - 145 mmol/L [facility] Potassium 3.6 3.3 - 5.1 mmol/L [facility] Chloride 109(H) 96 - 108 mmol/L [facility] Carbon Dioxide 22 22 - 29 mmol/L [facility] Anion Gap 14 12 - 20 [facility] Urea Nitrogen (BUN) 16 9 - 16 mg/dL [facility] Creatinine, Serum 0.87 0.5 - 1.4 mg/dL [facility] Creatinine Clr Calc Pharmacy 120.4 [facility] Comment:Provided height and weight: 167.64 cm,154.8 kg.eGFR (calculated from the MDRD study equation) and eCrCl(calculated from the Cockcroft-Gault equation) are based ondifferent parameters and may not yield comparable results.If eCrCl result is absurd, please check patient'sheight/weight. Estimated Glomerular Filt Rate >60 [facility] Comment:Chronic Kidney Disea se: Estimated GFR < 60 mL/min/1.21p0Kwodzm Kidney Disease: Estimated GFR < 15 mL/min/1.73m2 Glucose Fasting 100(H) 60 - 99 mg/dL [facility] Comment:A fasting glucose fr om 100-125 mg/dl is considered impaired(pre-diabetes). Calcium 9.0 8.4 - 10.2 mg/dL [facility] Bilirubin, Total 0.4 0.0 - 1.0 mg/dL [facility] Aspartate Amino Transferase 22 5 - 31 U/L [facility] Alanine Aminotransferase 14 0 - 31 U/L [facility] Total Protein 7.1 6.5 - 8.0 g/dL [facility] Albumin Level 3.8 3.5 - 5.0 g/dL [facility] Alkaline Phosphatase 105 39 - 117 U/L [facility] 04/05/2025 4:34 AM EDT 04/05/2025 4:36 AM EDT us Generic External Data Provider LAB BLOOD ORDERAB LES Final Result [facility] [address] [place] [address] [phone] * (ABNORMAL) CBC auto differential (04/05/2025 4:34 AM EDT) White Blood Count 11.6(H) 4.8 - 10.8 X10*3/uL [facility] Red Blood Count 4.07(L) 4.20 - 5.50 X10*6/uL [facility] Hemoglobin 12.9 12.0 - 16.0 g/dl [facility] Hematocrit 38.1 37.0 - 47.0 % [facility] Mean Corpuscular Volume 93.6 80.0 - 98.0 fL [facility] Mean Corpuscular Hemoglobin 31.7 27.0 - 33.0 pg [facility] Mean Corpuscular HGB Conc 33.9 31.0 - 35.0 g/dl [facility] Red Cell Distribution Width 13.5 11.0 - 16.0 % [facility] Platelet Count 288 160 - 400 X10*3/uL [facility] Mean Platelet Volume 9.5 9.4 - 12.3 fL [facility] Neutrophils Percent Auto 55.7 45 - 73 % [facility] Imm Gran Pct Auto 0.4 0.0 - 0.4 % [facility] Lymphocytes Percent Auto 32.7 20 - 40 % [facility] Monocytes Percent Auto 8.2 2 - 11 % [facility] Eosinophils Percent Auto 2.2 0 - 4 % [facility] Basophils Percent Auto 0.8 0 - 2 % [facility] NRBC Pct Auto 0.0 0.0 - 0.2 /100WBC [facility] Neutrophils Absolute Auto 6.5 2.0 - 8.3 x10*3/uL [facility] Imm Gran Abs Auto 0.05(H) 0.00 - 0.03 X10*3/uL [facility] Lymphocytes Absolute Auto 3.8 1.2 - 4.9 X10*3/uL [facility] Monocytes Absolute Auto 1.0 0.1 - 1.2 X10*3/uL [facility] Eosinophils Absolute Auto 0.3 0.0 - 0.4 X10*3/uL [facility] Basophils Absolute Auto 0.1 0.0 - 0.2 X10*3/uL [facility] NRBC Abs Auto 0.000 0.0 - 0.012 X10*3/uL [facility] 04/05/2025 4:34 AM EDT 04/05/2025 4:36 AM EDT us Generic External Data Provider LAB BLOOD ORDERAB LES Final Result [facility] [address] [place] [address] [phone] * (ABNORMAL) Cologuard?? colon cancer screening (08/31/2024 10:33 AM EST) Cologuard Result Positive( A) Negative 09/07/2024 10:16 AM EST [employer] (CLIA #:[id number]) Comment: POSITIVE TEST RESULT. A positive Cologuard [...] (Ashleigh Zhou al, N Engl J Med 2014;370(14):4575-4551.) Cologuard may produce a false negative or false positive result (no colorectal cancer or precancerous polyp present at colonoscopy follow up). A negative Cologuard test result does not guarantee the absence of CRC or advanced adenoma (pre-cancer). The current Cologuard screening interval is every 3 years. ([place] [employer] and U.S. Multi-Society Task Force). Cologuard performance data in a 10,000 patient pivotal study using colonoscopy as the reference method can be accessed at the following location: www.[email or web address].com/results. Additional description of the Cologuard test process, warnings and precautions can be found at [email or web address] Medicalrd.com. Stool specimen (specimen) 08/31/2024 10:33 AM EST 09/01/2024 11:06 AM EST Carmen Bertrand DO LAB MOLECULAR DIAGNOSTICS OR DERABLES Final Result Performing Organization Address City/[facility]/ZIP Co de Phone Number [employer] (CLIA #:[id number]) [place] [address], * Hemoglobin A1c (08/24/2024 11:57 AM EST) Hemoglobin A1c 6.0 <6.0 % [facility] Comment:Hemoglobin A1C Refer ence Range Adults: 4.8 - 6.0 % Non diabetic: < 6.0 % Goal: < 7.0 %Additional Action Suggested: > 8.0 %Note: Hemoglobin A1c results are invalid for patients with abnormal amounts of HbF. Blood transfusions may impact the HbA1c concentration in the patient sample. Estimated Average Glucose 126 mg/dL [facility] Comment:eAG = Estimated ave rage glucose which is %A1C expressed asaverage glucose, using the formula of the J9L-ApeyexkXvuisyd Glucose study (ADAG), Diabetes Care, Vol.31,#8,Mar. 2007 Blood Venous blood specimen / Unknown 08/24/2024 11:57 AM EST 08/24/2024 1:03 PM EST Carmen Bertrand DO LAB BLOOD ORDERABLES Final R esult Performing Organization Address City/[facility]/ZIP Co de Phone Number [facility] [address] [place] [phone] * (ABNORMAL) Lipid Panel, Standard (08/24/2024 11:57 AM EST) Triglycerides 82 <150 mg/dL [facility] Comment:Desirable Triglyceri de: less than 150 mg/dLBorderline High Triglyceride 150-199 mg/dLHigh Triglyceride: 200-499 mg/dLVery High Triglyceride: greater than or equal to 5OO mg/dL Cholesterol 136 <200 mg/dL [facility] Comment:Desirable Cholestero l: less than 200 mg/dLBorderline High Cholesterol: 200-239 mg/dLHigh Cholesterol: greater than 239 mg/dL LDL Cholesterol Calculated 81 <100 mg/dL [facility] Comment:Desirable LDL: less than 100 mg/dLNear Optimal/Above Optimal LDL: 110- 129 mg/dLBorderline High LDL: 130-159 mg/dLHigh LDL: 160-189 mg/dLVery High LDL: greater than or equal to 190 mg/dL HDL Cholesterol 39(L) >40 mg/dL [facility] Comment:Desirable HDL: great er than 40 mg/dL Note: This HDL assay may give artificially low results in patients with liver disease. Blood Venous blood specimen / Unknown 08/24/2024 11:57 AM EST 08/24/2024 1:03 PM EST us Carmen Bertrand DO LAB BLOOD ORDERABLES Final R esult [facility] [address] [place] [address] [phone] * Hepatitis C Antibody with Reflex to HCV, RNA, Quantitative, Real-Time PCR (04/27/2024 2:02 PM EDT) Hepatitis C Antibody Nonreactive Nonreactive [facility] Comment:Antibodies to HCV no t detected; does not exclude early acuteHCV infection. Blood Venous blood specimen / Unknown 04/27/2024 2:02 PM EDT 04/27/2024 4:01 PM EDT Carmen Bertrand DO LAB BLOOD ORDERABLES Final R esult Performing Organization Address [facility]/ZIP Co de Phone Number [facility] [address] [place] [phone] [phone] * HIV Ab/Ag (BHAVIN MCKEON) (02/21/2023 2:35 PM EDT) HIV AB/AG Nonreactive Nonreactive [facility] Comment:HIV-1 p24 Ag and/or HIV-1/HIV-2 Ab not detected.A test result that is nonreactive does not exclude thepossibility of exposure to or infection with HIV-1 and/orHIV-2. Nonreactive results in this assay for individualswith prior exposure to HIV-1 and/or HIV-2 may be due toantigen and antibody levels that are below the limit ofdetection of this assay.The [employer] Transfusion Aide HIV Ag/Ab Combo assay result andsupplemental assay results should be interpreted inconjunction with the patient's clinical presentation,history and other laboratory results. If the results areinconsistent with clinical evidence, additional testing issuggested to confirm the result. 02/21/2023 2:35 PM EDT 02/21/2023 2:37 PM EDT [facility] External Provider LAB BLO OD ORDERABLES Final Result Performing Organization Address [facility] Co de Phone Number [facility] [address] [place] [phone] [phone] from Last 3 Months or Most Recently Relevant to Health Maintenance Insurance [employer] < [address] [place] [id number] Care Teams Linen Worker Relationship Specialty Start Date End Date Carmen Bertrand DO [address] [place] [phone] PCP - General Family Medicine 08/18/18
--- OUTSIDE RECORDS SUMMARY | 2025-06-14 15:20 | XMS_ITS | Encounter Summary ---
Author Organization [employer] Address [address] [place] [address] [address] [place] [address] Care Team Providers Care Display Manager Name Role Phone Carmen Bertrand DO Primary Care Provider + [phone] Reason for Visit * Reason Comments Med Refill Encounter Details Date Type Department Care Team ([facility] st Contact Info) Description 04/04/2025 Refill [facility] [address] [place], [place] [phone] Carmen Bertrand DO [address] [place], [place] [phone] Hypertension, unspecified type; Chronic low back pain, [...] Description 09/07/2025 2:00 PM EST Clinical Support [facility] [address] [place] [address] Jessica Conway RN documented as of this encounter Visit Diagnoses Diagnosis Hypertension, unspecified type Chronic low back pain, unspecified back pain laterality, unspecified whether sciatica present documented in this encounter Additional Health Concerns Assessment Noted Time PHQ-9 Depression Total Score: 22 024 11:00 AM EDT documented as of this encounter Care Teams Display Manager Relationship Specialty Start Date End Date Carmen Bertrand DO [address] [place] [phone] PCP - General Family Medicine 08/18/18 documented as of this encounter
--- OUTSIDE RECORDS SUMMARY | 2025-06-14 15:20 | XMS_ITS | Encounter Summary ---
Author Organization [employer] Address [address] [facility] [place] 7 [place] [address] Care Team Providers Care Squeegeer And Former Name Role Phone Carmen Bertrand DO Primary Care Provider + [phone] Reason for Visit * Reason Comments Med Refill Encounter Details Date Type Department Care Team ([facility] st Contact Info) Description 07/22/2023 Refill [facility] CHC MED & PEDS [address] [place], [place] [phone] Carmen Bertrand DO 230 [place] [address] Hyperlipidemia, unspecified hyperlipidemia type Social History Tobacco [...] Description 09/07/2025 2:00 PM EST Clinical Support [facility] MEDICINE 230 [place] [address] Jessica Conway RN documented as of this encounter Visit Diagnoses Diagnosis Hyperlipidemia, unspecified hyperlipidemia type documented in this encounter Additional Health Concerns Assessment Noted Time PHQ-9 Depression Total Score: 21 023 11:26 AM EST documented as of this encounter Care Teams Squeegeer And Former Relationship Specialty Start Date End Date Carmen Bertrand DO 230 [place] [address] PCP - General Family Medicine 08/18/18 documented as of this encounter
--- OUTSIDE RECORDS SUMMARY | 2025-06-14 15:20 | XMS_ITS | Encounter Summary ---
Author Organization [employer] Address [address] [place] [address] 7 [place] [address] Care Team Providers Care Shingle Carrier Name Role Phone Elza Carmen Primary Care Provider + [phone] Reason for Visit * Reason Comments Med Refill Encounter Details Date Type Department Care Team ([facility] st Contact Info) Description 03/08/2024 Refill [facility] MEDICINE 230 [place] [address] Rox Sutton MD 230 [place] [address] Pain Social History Tobacco Use Types Packs/Day [...] Description 09/07/2025 2:00 PM EST Clinical Support [facility] MEDICINE 230 [place] [address] Jessica Conway RN documented as of this encounter Visit Diagnoses Diagnosis Pain Generalized pain documented in this encounter Additional Health Concerns Assessment Noted Time PHQ-9 Depression Total Score: 21 023 11:26 AM EST documented as of this encounter Care Teams Shingle Carrier Relationship Specialty Start Date End Date Carmen Bertrand DO [address] [place] [address] PCP - General Family Medicine 08/18/18 documented as of this encounter
--- OUTSIDE RECORDS SUMMARY | 2025-06-14 15:20 | XMS_ITS | Encounter Summary ---
Author Organization [employer] Address [address] [place] [address] [place] [address] Care Team Providers Care Toll Test Desk Worker Name Role Phone Carmen Bertrand DO Primary Care Provider [phone]- [phone] Encounter Details Date Type Department Care Team (Late st Contact Info) Description 09/09/2022 Orders Only [facility] CHC MED & PEDS [address] [place] [address] Carmen Perez LPN Social History Tobacco Use [...] Description 09/07/2025 2:00 PM EST Clinical Support [facility] MEDICINE 230 [place] [address] Jessica Conway, RN documented as of this encounter Visit Diagnoses Not on filedocumented in this encounter Care Teams Toll Test Desk Worker Relationship Specialty Start Date End Date Carmen Bertrand DO 230 [place] [address] PCP - General Family Medicine 08/18/18 documented as of this encounter
--- OUTSIDE RECORDS SUMMARY | 2025-06-14 15:20 | XMS_ITS | Encounter Summary ---
Author Organization [employer] Address [address] [place] [address] 7 [place] [address] Care Team Providers Care Investigator Claims Name Role Phone Carmen Bertrand DO Primary Care Provider + [phone] Reason for Visit * Reason Comments Med Refill Encounter Details Date Type Department Care Team ([facility] st Contact Info) Description 02/24/2024 Refill [facility] MEDICINE 230 [place], [place] [phone] Carmen Bertrand DO 230 [place] [address] Social History Tobacco Use Types Packs/Day Years [...] Description 09/07/2025 2:00 PM EST Clinical Support [facility] MEDICINE 230 [place] [address] Jessica Conway RN documented as of this encounter Visit Diagnoses Not on filedocumented in this encounter Additional Health Concerns Assessment Noted Time PHQ-9 Depression Total Score: 21 023 11:26 AM EST documented as of this encounter Care Teams Investigator Claims Relationship Specialty Start Date End Date Carmen Bertrand DO 230 [place] [address] PCP - General Family Medicine 08/18/18 documented as of this encounter
--- OUTSIDE RECORDS SUMMARY | 2025-06-14 15:20 | XMS_ITS | Encounter Summary ---
Author Organization [employer] Address [address] [place] [address] [facility] [place] [address] Care Team Providers Care Managing Editor Name Role Phone Carmen Bertrand DO Primary Care Provider + [phone] Reason for Visit * Reason Comments Med Refill Encounter Details Date Type Department Care Team ([facility] st Contact Info) Description 11/20/2022 Refill [facility] MEDICINE [address], [place] [phone] Carmen Bertrand DO [address] [place], [place] [phone] Morbid obesity with body mass index (BMI) [...] 2:00 PM EST Clinical Support [facility] MEDICINE [address] [place] [address] Jessica Conway, RN documented as of this encounter Visit Diagnoses Diagnosis Morbid obesity with body mass index (BMI) of 50.0 to 59.9 in adult (HCC) documented in this encounter Additional Health Concerns Assessment Noted Time PHQ-9 Depression Total Score: 16 023 12:22 PM EST documented as of this encounter Care Teams Managing Editor Relationship Specialty Start Date End Date Carmen Bertrand DO [address] [place] [address] PCP - General Family Medicine 08/18/18 documented as of this encounter
--- OUTSIDE RECORDS SUMMARY | 2025-06-14 15:20 | XMS_ITS | Encounter Summary ---
Author Organization [employer] Address [address] [place] [address] [place] [address] Care Team Providers Care Lofter Name Role Phone Carmen Bertrand DO Primary Care Provider [phone]- [phone] Encounter Details Date Type Department Care Team (Late st Contact Info) Description 09/09/2022 Orders Only [facility] MEDICINE [address] [place] [address] Azul Albrecht LPN Social History Tobacco Use [...] [facility] MEDICINE [address] [place] [address] Jessica Conway, RULA documented as of this encounter Visit Diagnoses Not on filedocumented in this encounter Care Teams Lofter Relationship Specialty Start Date End Date Carmen Bertrand DO [address] [place] [address] PCP - General Family Medicine 08/18/18 documented as of this encounter
--- OUTSIDE RECORDS SUMMARY | 2025-06-14 15:20 | XMS_ITS | Encounter Summary ---
Author Organization [employer] Address [address] [place] [address] Care Team Providers Care Email Developer Name Role Phone Carmen Bertrand DO Primary Care Provider + [phone] Reason for Visit * Reason Comments Med Refill Encounter Details Date Type Department Care Team (Late st Contact Info) Description 07/29/2022 Refill [facility] MEDICINE 230 [place], [place] [phone] Carmen Bertrand DO 230 [place] [address] Social History Tobacco Use Types Packs/Day Years [...] Description 09/07/2025 2:00 PM EST Clinical Support [facility] MEDICINE [address] [place] [phone] Jessica Conway RN documented as of this encounter Visit Diagnoses Not on filedocumented in this encounter Care Teams Email Developer Relationship Specialty Start Date End Date Carmen Bertrand DO 230 [place], [place] [phone] PCP - General Family Medicine 08/18/18 documented as of this encounter
--- OUTSIDE RECORDS SUMMARY | 2025-06-14 15:20 | XMS_ITS | Encounter Summary ---
Author Organization [employer] Address 75 [facility] 7 [place] [address] Care Team Providers Care Carousel Attendant Name Role Phone Carmen Bertrand DO Primary Care Provider + [phone] Encounter Details Date Type Department Care Team ([facility] Contact Info) Description 06/07/2025 Orders Only [facility] MEDICINE 230 [place], [place] [phone] Carmen Bertrand DO 230 [place], [place] [phone] Social History Tobacco Use Types Packs/Day Years [...] Description 09/07/2025 2:00 PM EST Clinical Support [facility] MEDICINE 230 [place] [address] Jessica Conway RN documented as of this encounter Procedures Procedure Name Priority Date/Time Associated Diagnosis Comments BI MAMMOGRAM SCREENING TOMOSYNTHESIS BILATERAL Routine 06/07/2025 3:00 PM EDT documented in this encounter Results * BI Mammogram Screening Tomosynthesis Bilateral (06/07/2025 3:00 PM EDT) Anatomical Region Laterality Modality Breast Bilateral Mammography 06/07/2025 3:00 PM EDT Narrative 06/10/2025 11:46 AM EDT [facility]'s [address] [place] [address] Mammography Report Signed Patient: Blaire Quiroz MR#: [id number] : 1975 Acct:[id number] Age/Sex: 50 / F ADM Date: 06/07/25 Loc: HOGeorgiMAMMO Attending Dr: Carmen Bertrand DO Ordering Physician: Carmen Bertrand DO Results: 0I ncomplete- Need Additional Imaging Evaluation Date of Service: 06/07/25 Follow Up: Additional Imagi ng Procedure(s): MM tomosynthesis screening BI Accession Number(s): [id number] cc: Carmen Bertrand DO Reason For Exam: [...] 06/10/25 1143 DD/ 1500 TD/TT: 06/07/25 1530 Drafting Supervisor: Procedure Note Donotuseinterpreter, Image - 06/10/2025 [facility] [address] [place], [place] [address] Mammography Report Signed Patient: Blaire Quiroz#: M [id number] : 1975Acct:[id number] Age/Sex: 50 / FADM Date: 06/07/25 Loc: HO.MAMMO Attending Dr: Carmen Bertrand DO Ordering Physician: Carmen Bertrandults: 0I ncomplete- Need Additional Imaging Evaluation Date of Service: 06/07/25Follow Up: Additional Imagi ng Procedure(s): MM tomosynthesis screening BI Accession Number(s): [id number] cc: Carmen Bertrand DO Reason For Exam: [...] 06/10/25 1143 DD/ 1500 TD/TT: 06/07/25 1530 Drafting Supervisor: us Carmen Bertrand DO IMG BI PROCEDURES Final Resu lt documented in this encounter Visit Diagnoses Not on filedocumented in this encounter Additional Health Concerns Assessment Noted Time PHQ-9 Depression Total Score: 22 024 11:00 AM EDT documented as of this encounter Care Teams Carousel Attendant Relationship Specialty Start Date End Date Carmen Bertrand DO 230 [place] [address] PCP - General Family Medicine 08/18/18 documented as of this encounter
--- OUTSIDE RECORDS SUMMARY | 2025-06-14 15:21 | XMS_ITS | Encounter Summary ---
Author Organization [employer] Address [address] [place] [address] 7 [place] [address] Care Team Providers Care Steamer Blocker Name Role Phone Carmen Bertrand DO Primary Care Provider + [phone] Reason for Visit * Reason Comments Med Refill Encounter Details Date Type Department Care Team ([facility] st Contact Info) Description 06/01/2025 Refill [facility] 230 [place], [place] [phone] Carmen Bertrand DO 230 [place], [place] [phone] Chronic low back pain, unspecified back pain [...] 09/07/2025 2:00 PM EST Clinical Support [facility] 230 [place] [address] Jessica Conway RN documented as of this encounter Visit Diagnoses Diagnosis Chronic low back pain, unspecified back pain laterality, unspecified whether sciatica present documented in this encounter Additional Health Concerns Assessment Noted Time PHQ-9 Depression Total Score: 22 024 11:00 AM EDT documented as of this encounter Care Teams Steamer Blocker Relationship Specialty Start Date End Date Carmen Bertrand DO [address] [place] [address] PCP - General Family Medicine 08/18/18 documented as of this encounter
--- OUTSIDE RECORDS SUMMARY | 2025-06-14 15:21 | XMS_ITS | Encounter Summary ---
Author Organization [employer] Address [address] [place] [address] 7 [place] [address] Care Team Providers Care Research Associate Name Role Phone Carmen Bertrand DO Primary Care Provider + [phone] Reason for Visit * Reason Comments Med Refill Encounter Details Date Type Department Care Team ([facility] st Contact Info) Description 01/26/2025 Refill [facility] MEDICINE 230 [place], [place] [phone] Carmen Bertrand DO 230 [place], [place] [phone] Social History Tobacco Use Types Packs/Day Years [...] Clinical Support [facility] MEDICINE [address] [place] [address] Jessica Conway, RULA documented as of this encounter Visit Diagnoses Not on filedocumented in this encounter Additional Health Concerns Assessment Noted Time PHQ-9 Depression Total Score: 22 024 11:00 AM EDT documented as of this encounter Care Teams Research Associate Relationship Specialty Start Date End Date Carmen Bertrand DO 230 [place] [address] PCP - General Family Medicine 08/18/18 documented as of this encounter
--- OUTSIDE RECORDS SUMMARY | 2025-06-14 15:21 | XMS_ITS | Encounter Summary ---
Author Organization [employer] Address [address] [place] [address] [place] [address] Care Team Providers Care Reel Assembler Name Role Phone Carmen Bertrand DO Primary Care Provider + [phone] Reason for Visit * Reason Onset Date Comments Hospital Follow-up 11/12/2024 Encounter Details Date Type Department Care Team ([facility] Contact Info) Description 11/12/2024 Telephone [facility] MEDICINE 230 [place] [address] Carmen Bertrand DO [address] [place], [place] [phone] Hospital Follow-up Social History Tobacco Use Types [...] from pt requesting a HDF appt. Hospital: [facility] Date of admission: 11/07/2024 Discharge date: 11/12/2024 Diagnosed: heart attack *Send message to [facility] Clinical Care Coordinators documented in this encounter Plan of Treatment Upcoming Encounters Date Type Department Care Team (Late st Contact Info) Description 09/07/2025 2:00 PM EST Clinical Support [facility] MEDICINE [address] [place] [address] Jessica Conway, RULA documented as of this encounter Visit Diagnoses Not on filedocumented in this encounter Additional Health Concerns Assessment Noted Time PHQ-9 Depression Total Score: 22 024 11:00 AM EDT documented as of this encounter Care Teams Reel Assembler Relationship Specialty Start Date End Date Carmen Bertrand DO [address] [place] [address] PCP - General Family Medicine 08/18/18 documented as of this encounter
--- OUTSIDE RECORDS SUMMARY | 2025-06-14 15:21 | XMS_ITS | Encounter Summary ---
Author Organization [employer] Address [address] [place] [address] 7 [place] [address] Care Team Providers Care Maintenance Technician 3Rd Shift Name Role Phone Elza Carmen Primary Care Provider + [phone] Reason for Visit * Reason Comments Med Refill Encounter Details Date Type Department Care Team ([facility] st Contact Info) Description 01/13/2024 Refill [facility] MEDICINE 230 [place] [address] Rox Sutton MD [address] [place] [address] Pain Social History Tobacco Use Types Packs/Day [...] Description 09/07/2025 2:00 PM EST Clinical Support [facility] MEDICINE [address] [place] [address] Jessica Conway RN documented as of this encounter Visit Diagnoses Diagnosis Pain Generalized pain documented in this encounter Additional Health Concerns Assessment Noted Time PHQ-9 Depression Total Score: 21 023 11:26 AM EST documented as of this encounter Care Teams Maintenance Technician 3Rd Shift Relationship Specialty Start Date End Date Carmen Bertrand DO [address] [place] [address] PCP - General Family Medicine 08/18/18 documented as of this encounter
--- OUTSIDE RECORDS SUMMARY | 2025-06-14 15:21 | XMS_ITS | Encounter Summary ---
Author Organization [employer] Address 75 [facility] 7 [place] [address] Care Team Providers Care Paper Plate Machine Tender Name Role Phone Carmen Bertrand DO Primary Care Provider + [phone] Reason for Visit * Reason Comments Med Refill Encounter Details Date Type Department Care Team (Late st Contact Info) Description 05/12/[address] [facility] CHC MED & PEDS [address] [place], [place] [phone] Carmen Bertrand DO 230 [place] [address] Chronic low back pain, unspecified back pain [...] Description 09/07/2025 2:00 PM EST Clinical Support [facility] MEDICINE [address] [place] [address] Jessica Conway RN documented as of this encounter Visit Diagnoses Diagnosis Chronic low back pain, unspecified back pain laterality, unspecified whether sciatica present documented in this encounter Additional Health Concerns Assessment Noted Time PHQ-9 Depression Total Score: 22 024 11:00 AM EDT documented as of this encounter Care Teams Paper Plate Machine Tender Relationship Specialty Start Date End Date Carmen Bertrand DO [address] [place] [address] PCP - General Family Medicine 08/18/18 documented as of this encounter
--- OUTSIDE RECORDS SUMMARY | 2025-06-14 15:21 | XMS_ITS | Encounter Summary ---
Author Organization [employer] Address [address] [place] [address] 7 [place] [address] Care Team Providers Care Corrections Caseworker Name Role Phone Carmen Bertrand DO Primary Care Provider + [phone] Reason for Visit * Reason Comments Med Refill Encounter Details Date Type Department Care Team ([facility] st Contact Info) Description 02/04/2025 Refill [facility] MEDICINE 230 [place], [place] [phone] Carmen Bertrand DO [address] [place], [place] [phone] Chronic low back pain, unspecified back pain [...] Description 09/07/2025 2:00 PM EST Clinical Support [facility] MEDICINE [address] [place] [address] Jessica Conway RN documented as of this encounter Visit Diagnoses Diagnosis Chronic low back pain, unspecified back pain laterality, unspecified whether sciatica present documented in this encounter Additional Health Concerns Assessment Noted Time PHQ-9 Depression Total Score: 22 024 11:00 AM EDT documented as of this encounter Care Teams Corrections Caseworker Relationship Specialty Start Date End Date Carmen Bertrand DO [address] [place] [address] PCP - General Family Medicine 08/18/18 documented as of this encounter
== END 2025-06-14 13:01 | disposition home or self-care (01) ==
LOC: HO.HCS 11:59
PROVIDERS: PCP Family Medicine; Visit Provider Internal Medicine Cardiovascular Disease
DX: I25.10 Atherosclerotic heart disease of native coronary artery without angina pectoris (principal); I10 Essential (primary) hypertension
CPT/HCPCS: 99214; G2211

== ENCOUNTER → 2025-06-14 11:59 | Outpatient (BNVA) | payer OTHER, SELFPAY ==
[2025-01-27 10:17] VITALS: BP 128/72; BP 140/60; BP 148/88; BMI 63.7
== END ==
PROVIDERS: PCP Family Medicine; Visit Provider Internal Medicine Cardiovascular Disease
DX: I25.10 Atherosclerotic heart disease of native coronary artery without angina pectoris (principal); I10 Essential (primary) hypertension
CPT/HCPCS: 99212

== ENCOUNTER 2025-06-28 08:56 | Outpatient (REF) | payer OTHER, SELFPAY ==
[2025-06-14 13:00] VITALS: BP 128/72; BP 140/60; BP 148/88; BMI 63.7
--- OUTSIDE RECORDS SUMMARY | 2025-06-28 09:22 | XMS_ITS | Encounter Summary ---
Author Organization [employer] Address [address] [place] [address] [place] [address] Care Team Providers Care Crook Operator Name Role Phone Carmen Bertrand DO Primary Care Provider [phone]- [phone] Encounter Details Date Type Department Care Team (Late st Contact Info) Description 09/09/2022 Orders Only [facility] CHC MED & PEDS [address] [place] [address] Carmen Perez LPN Social History Tobacco Use [...] Description 09/07/2025 2:00 PM EST Clinical Support [facility] MEDICINE 230 [place] [address] Jessica Conway, RN documented as of this encounter Visit Diagnoses Not on filedocumented in this encounter Care Teams Crook Operator Relationship Specialty Start Date End Date Carmen Bertrand DO 230 [place] [address] PCP - General Family Medicine 08/18/18 documented as of this encounter
--- OUTSIDE RECORDS SUMMARY | 2025-06-28 09:22 | XMS_ITS | Encounter Summary ---
Author Organization [employer] Address [address] [place] [address] 7 [place] [address] Care Team Providers Care Gas Regulator Repairer Name Role Phone Elza Carmen Primary Care Provider + [phone] Reason for Visit * Reason Comments Med Refill Encounter Details Date Type Department Care Team ([facility] st Contact Info) Description 03/08/2024 Refill [facility] MEDICINE [address] [place] [address] Rox Sutton MD [address] [place] [address] Pain Social History Tobacco Use Types Packs/Day [...] EST Clinical Support [facility] MEDICINE [address] [place] [address] Jessica Conway RN documented as of this encounter Visit Diagnoses Diagnosis Pain Generalized pain documented in this encounter Additional Health Concerns Assessment Noted Time PHQ-9 Depression Total Score: 21 023 11:26 AM EST documented as of this encounter Care Teams Gas Regulator Repairer Relationship Specialty Start Date End Date Carmen Bertrand DO [address] [place] [address] PCP - General Family Medicine 08/18/18 documented as of this encounter
--- OUTSIDE RECORDS SUMMARY | 2025-06-28 09:22 | XMS_ITS | Encounter Summary ---
Author Organization [employer] Address 75 [facility] 7 [place] [address] Care Team Providers Care Automatic Furnace Operator Name Role Phone Carmen Bertrand DO Primary Care Provider + [phone] Reason for Visit * Reason Comments Med Refill Encounter Details Date Type Department Care Team ([facility] st Contact Info) Description 07/22/2023 Refill [facility] CHC MED & PEDS [address] [place], [place] [phone] Carmen Bertrand DO [address] [place] [address] Hyperlipidemia, unspecified hyperlipidemia type Social History Tobacco [...] Description 09/07/2025 2:00 PM EST Clinical Support [facility] MEDICINE [address] [place] [address] Jessica Conway RN documented as of this encounter Visit Diagnoses Diagnosis Hyperlipidemia, unspecified hyperlipidemia type documented in this encounter Additional Health Concerns Assessment Noted Time PHQ-9 Depression Total Score: 21 023 11:26 AM EST documented as of this encounter Care Teams Automatic Furnace Operator Relationship Specialty Start Date End Date Carmen Bertrand DO [address] [place] [address] PCP - General Family Medicine 08/18/18 documented as of this encounter
--- OUTSIDE RECORDS SUMMARY | 2025-06-28 09:22 | XMS_ITS | Encounter Summary ---
Author Organization [employer] Address [address] [place] [address] [place] [address] Care Team Providers Care Stock Control Clerk Name Role Phone Carmen Bertrand DO Primary Care Provider [phone]- [phone] Encounter Details Date Type Department Care Team (Late st Contact Info) Description 08/13/2022 Orders Only [facility] CHC MED & PEDS [address] [place] [address] Carmen Perez LPN Social History Tobacco Use [...] Description 09/07/2025 2:00 PM EST Clinical Support [facility] MEDICINE [address] [place] [address] Jessica Conway, RN documented as of this encounter Visit Diagnoses Not on filedocumented in this encounter Care Teams Stock Control Clerk Relationship Specialty Start Date End Date Carmen Bertrand DO [address] [place] [address] PCP - General Family Medicine 08/18/18 documented as of this encounter
--- OUTSIDE RECORDS SUMMARY | 2025-06-28 09:22 | XMS_ITS | Encounter Summary ---
Author Organization [employer] Address [address] [place] [address] 7 [place] [address] Care Team Providers Care Typing Pool Supervisor Name Role Phone Carmen Bertrand DO Primary Care Provider + [phone] Reason for Visit * Reason Comments Med Refill Encounter Details Date Type Department Care Team ([facility] st Contact Info) Description 02/24/2024 Refill [facility] MEDICINE [address] [place] [address] Carmen Bertrand DO [address] [place] [address] Social History Tobacco Use Types Packs/Day Years [...] Description 09/07/2025 2:00 PM EST Clinical Support [facility] MEDICINE [address] [place] [address] Jessica Conway RN documented as of this encounter Visit Diagnoses Not on filedocumented in this encounter Additional Health Concerns Assessment Noted Time PHQ-9 Depression Total Score: 21 023 11:26 AM EST documented as of this encounter Care Teams Typing Pool Supervisor Relationship Specialty Start Date End Date Carmen Bertrand DO [address] [place] [address] PCP - General Family Medicine 08/18/18 documented as of this encounter
--- OUTSIDE RECORDS SUMMARY | 2025-06-28 09:22 | XMS_ITS | Encounter Summary ---
Author Organization [employer] Address [address] 7 [place] [address] Care Team Providers Care Electroplating Technician Name Role Phone Carmen Bertrand DO Primary Care Provider + [phone] Reason for Visit * Reason Comments Med Refill Encounter Details Date Type Department Care Team (Late st Contact Info) Description 03/16/2024 Refill [facility]EDS [address] [place], [place] [phone] Carmen Bertrand DO [address] [place] [address] Chronic low back pain, unspecified back pain [...] Support [facility] MEDICINE [address] [place] [address] Jessica Conway, RULA documented as of this encounter Visit Diagnoses Diagnosis Chronic low back pain, unspecified back pain laterality, unspecified whether sciatica present documented in this encounter Additional Health Concerns Assessment Noted Time PHQ-9 Depression Total Score: 21 023 11:26 AM EST documented as of this encounter Care Teams Electroplating Technician Relationship Specialty Start Date End Date Carmen Bertrand DO [address] [place] [address] PCP - General Family Medicine 08/18/18 documented as of this encounter
--- OUTSIDE RECORDS SUMMARY | 2025-06-28 09:22 | XMS_ITS | Encounter Summary ---
Author Organization [employer] Address [address] [place] [phone] Care Team Providers Care Clutch Rebuilder Name Role Phone Carmen Bertrand DO Primary Care Provider + [phone] Reason for Visit * Reason Comments Med Refill Encounter Details Date Type Department Care Team (Late st Contact Info) Description 07/29/2022 Refill [facility] MEDICINE [address] [place], [place] [phone] Carmen Bertrand DO [address] [place] [address] Social History Tobacco Use Types Packs/Day Years [...] Description 09/07/2025 2:00 PM EST Clinical Support [facility] [address] [place] [phone] Jessica Conway RN documented as of this encounter Visit Diagnoses Not on filedocumented in this encounter Care Teams Clutch Rebuilder Relationship Specialty Start Date End Date Carmen Bertrand DO [address] [place], [place] [phone] PCP - General Family Medicine 08/18/18 documented as of this encounter
--- OUTSIDE RECORDS SUMMARY | 2025-06-28 09:22 | XMS_ITS | Encounter Summary ---
Author Organization [employer] Address [address] [place] [address] 7 [place] [address] Care Team Providers Care Occasional Babysitter Name Role Phone RajeevCarmen jones Primary Care Provider + [phone] Reason for Visit * Reason Comments Med Refill Encounter Details Date Type Department Care Team ([facility] st Contact Info) Description 02/03/2023 Refill [facility] MEDICINE [address] [place] [address] Leticia Ramirez MD [address] [place], [place] [phone] Nonintractable headache, unspecified chronicity pattern, unspecified headache [...] Description 09/07/2025 2:00 PM EST Clinical Support [facility] [address] [facility] [place] [address] eJssica Conway RN documented as of this encounter Visit Diagnoses Diagnosis Nonintractable headache, unspecified chronicity pattern, unspecified headache type documented in this encounter Additional Health Concerns Assessment Noted Time PHQ-9 Depression Total Score: 16 023 12:22 PM EST documented as of this encounter Care Teams Occasional Babysitter Relationship Specialty Start Date End Date Carmen Bertrand DO [address] [place] [address] PCP - General Family Medicine 08/18/18 documented as of this encounter
--- OUTSIDE RECORDS SUMMARY | 2025-06-28 09:22 | XMS_ITS | Clinical Summary ---
Author Organization [employer] Address [address] [place] [address] 7 [place] [address] Care Team Providers Care Pipe Production Worker Name Role Phone RajeevCarmen jones Primary Care Provider + [phone] Allergies Active Allergy Reactions Criticality Noted Date [...] day. Active ergocalciferol (Vitamin D2) 1.25 MG (83399 UT) capsule Take 1 capsule (1.25 mg) [...] obesity with BMI of 50.0-59.9, adult (CMS/HCC) ([facility]) Inject 10 mg under the skin [...] Morbid obesity with BMI of 50.0-59.9, adult ([facility]) 06/07/2025 Long-term current use of opiate [...] Date Coronary arteriosclerosis 02/21/2023 BMI 50.0-59.9, adult ([facility]) 09/19/2022 06/07/2025 Class 3 severe obesity [...] Type Department Care Team Description 06/08/2025 Refill [facility]ICINE [address] [place] [address] Catracho Barton MD Chronic pain of both knees 06/07/2025 Orders Only [facility] [address] [place] [address] Carmen Bertrand DO 06/06/2025 Refill [facility] [address] [place] [address] Carmen Bertrand DO Chronic low back pain, unspecified back pain laterality, unspecified whether sciatica present 06/01/2025 2:00 PM EDT Clinical Support [facility] [address] [place] [address] Jessica Conway RN Long-term current use of opiate analgesic (Primary Dx) 06/01/2025 Travel 06/01/2025 Refill [facility] [address] [place] [address] Carmen Bertrand DO Chronic low back pain, unspecified back pain laterality, unspecified whether sciatica present 05/31/2025 Telephone [facility] [address] [place] [address] Carmen Bertrand DO telephone call; Prior Authorization ([facility] [employer] Form: [employer]) 05/10/2025 Telephone [facility] [address] [place] [address] Carmen Bertrand DO Prior Authorization ([facility]: Marimar) 05/10/2025 Telephone [facility] [address] [place] [address] Carmen Bertrand DO Med Refill 05/10/2025 Refill [facility] [address] [place] [address] Carmen Bertrand DO Chronic low back pain, unspecified back pain laterality, unspecified whether sciatica present 04/27/2025 Refill [facility] [address] [place] [address] Carmen Bertrand DO Melasma; Nonintractable headache, unspecified chronicity pattern, unspecified headache type 04/11/2025 Refill [facility] [address] [place] [address] Carmen Bertrand DO Chronic low back pain, unspecified back pain laterality, unspecified whether sciatica present 04/05/2025 Orders Only GENERIC EXTERNAL DATA DEPARTMENT Provider, Generic External Data 04/04/2025 Refill [facility] [address] [place] [address] Carmen Bertrand DO Hypertension, unspecified type; Chronic low back pain, unspecified back pain laterality, unspecified whether sciatica present 04/04/2025 Refill [facility] MED & PEDS [address] [place], [place] [phone] Ирина Mckeon MD Hypertension, unspecified type from Last 3 Months Immunizations Immunization Administration [...] Description 09/07/2025 2:00 PM EST Clinical Support [facility] [address] [place] [phone] Jessica Conway, RN Health Maintenance Due Date Last Done Comments CT Colonography 1975 Colonoscopy 1975 FIT 1976 Sigmoidoscopy 1975 Family Planning (PISQ) 1991 Hepatitis A Vaccines (1 of 2 - Risk 2-dose series) 1995 Depression Monitoring 03/27/2025 09/27/2024, 024 COVID-19 Vaccine ( - season) 2025 06/07/2021, 01/29/2021 Influenza Vaccine (#1) [...] of left foot Healthcare maintenance HIV ANTIBODY/ANTIGEN ([facility]) Routine 02/21/2023 2:35 PM EDT from Last 3 Months or Most Recently Relevant to Health Maintenance Results * BI Mammogram Screening Tomosynthesis Bilateral (06/07/2025 3:00 PM EDT) Anatomical Region Laterality Modality Breast Bilateral Mammography 06/07/2025 3:00 PM EDT Narrative 06/10/2025 11:46 AM EDT [facility] [address] [place] [address] [place] [address] Mammography Report Signed with Tracy Patient: Blaire Quiroz MR#: [id number] : 1975 Acct:[id number] Age/Sex: 50 / F ADM Date: 06/07/25 Loc: HO.MAMMO Attending Dr: Carmen Bertrand DO Ordering Physician: Carmen Bertrand DO Results: 0I ncomplete- Need Additional Imaging Evaluation Date of Service: 06/07/25 Follow Up: Additional Imagi ng Procedure(s): MM tomosynthesis screening BI Accession Number(s): [id number] cc: Carmen Bertrand DO Reason For Exam: Z12.31 ADDENDUM ADDENDUM #1 ADDENDUM: Due to a software issue this mammogram was reviewed a second time. The findings and recommendations remain the same. OVERALL ASSESSMENT: Category 0: Incomplete - Need additional Imaging Evaluation RECOMMENDATION: Additional Imaging required Electronically signed by: Ciarra García DO 06/20/2025 02:47 PM EST Addendum Dictated By: Ciarra García DO Addendum Signed By: <Electronically signed by Ciarra García DO in OV> 06/20/25 1447 Addendum Cosigned By: DD/ TD/TT: 06/07/25 EXAMINATION: MM SCREENING DIGITAL BREAST TOMOSYNTHESIS, BILATERAL [...] García DO in OV> 06/10/25 1143 DD/ 99 TD/TT: 06/07/25 1530 On Awake Counselor: Procedure Note Donotuseinterpreter, Image - 06/20/2025 [facility] [address] [place] [address] Mammography Report Signed with Addenda Patient: Blaire Quiroz#: M [id number] : 1975Acct:[id number] Age/Sex: 50 / FADM Date: 06/07/25 Loc: HO.MAMMO Attending Dr: Carmen Bertrand DO Ordering Physician: Carmen Bertrandults: 0I ncomplete- Need Additional Imaging Evaluation Date of Service: 06/07/25Follow Up: Additional Imagi ng Procedure(s): MM tomosynthesis screening BI Accession Number(s): [id number] cc: Carmen Bertrand DO Reason For Exam: Z12.31 ADDENDUM ADDENDUM #1 ADDENDUM: Due to a software issue this mammogram was reviewed a second time. The findings and recommendations remain the same. OVERALL ASSESSMENT: Category 0: Incomplete - Need additional Imaging Evaluation RECOMMENDATION: Additional Imaging required Electronically signed by: Ciarra García DO 06/20/2025 02:47 PM EST RP Addendum Dictated By: Ciarra García DO Addendum Signed By: <Electronically signed by DO Jose Angel in OV> 06/20/25 1447 Addendum Cosigned By: DD/ TD/TT: 06/07/25 EXAMINATION: MM SCREENING DIGITAL BREAST TOMOSYNTHESIS, BILATERAL [...] 06/10/25 1143 DD/ 1500 TD/TT: 06/07/25 1530 On Awake Counselor: Carmen Bertrand DO IMG BI PROCEDURES Edited Res ult - Final * POCT ANALISA-14 Urine Drug Screen (06/01/2025 [...] - 06/01/2025 2:10 PM EDT UTOX cup Lot#[id number] Exp. 05/24/26 Internal Pass Control Carmen Bertrand DO POINT OF CARE TEST ENTER/LANEY T ORDERABLES Final Result * High Sensitivity Troponin I (04/05/2025 9:42 AM EDT) Only the most recent of2 resultswithin the time period is included. TROPONIN I HIGH SENSITIVITY <2.7 <3.5 - 17.0 ng/L [facility] Comment:The [employer] high sens itivity Troponin-I results should beused in conjunction with other diagnostic information suchas ECG, clinical observations and information, and patientsymptoms to aid in the diagnosis of PR. 04/05/2025 9:42 AM EDT 04/05/2025 9:44 AM EDT Generic External Data Provider LAB BLOOD ORDERAB LES Final Result Performing Organization Address City/State/[facility] Co de Phone Number [facility] [address] [place] [phone] * XR Chest 2 Views (04/05/2025 6:17 AM EDT) Anatomical Region Laterality Modality Chest Radiographic Alejandrina ging 04/05/2025 6:17 AM EDT Narrative 04/05/2025 6:19 AM EDT [address] [address] XRay Report Signed Patient: Blaire Quiroz MR#: [id number] : 1975 Acct:[id number] Age/Sex: 50 / F ADM Date: 04/05/25 Loc: .ED Attending Dr: Ordering Physician: Generic ED Physician Date of Service: 04/05/25 Procedure(s): XR chest 2V Accession Number(s): [id number] cc: Generic ED Physician; Carmen Bertrand DO [...] in OV> 04/05/25617 DD/ 6 TD/TT: 04/05/25616 On Awake Counselor: Procedure Note Geno, Image - 04/05/2025 [place] [address] XRay Report Signed Patient: Blaire Quiroz#: M [id number] : 1975Acct:[id number] Age/Sex: 50 / FADM Date: 04/05/25 Loc: .ED Attending Dr: Ordering Physician: Generic ED Physician Date of Service: 04/05/25 Procedure(s): XR chest 2V Accession Number(s): [id number] cc: Generic ED Physician; Carmen Bertrand DO [...] in OV> 04/05/25617 DD/ 6 TD/TT: 04/05/25616 On Awake Counselor: [facility] External Provider IMG XR PROCEDURES Edited Result - Final * (ABNORMAL) Comprehensive Metabolic Panel, Fasting (04/05/2025 4:34 AM EDT) Sodium 141 135 - 145 mmol/L [facility] Potassium 3.6 3.3 - 5.1 mmol/L [facility] Chloride 109(H) 96 - 108 mmol/L [facility] Carbon Dioxide 22 22 - 29 mmol/L [facility] Anion Gap 14 12 - 20 [facility] Urea Nitrogen (BUN) 16 9 - 16 mg/dL [facility] Creatinine, Serum 0.87 0.5 - 1.4 mg/dL [facility] Creatinine Clr Calc Pharmacy 120.4 [facility] Comment:Provided height and weight: 167.64 cm,154.8 kg.eGFR (calculated from the MDRD study equation) and eCrCl(calculated from the Cockcroft-Gault equation) are based ondifferent parameters and may not yield comparable results.If eCrCl result is absurd, please check patient'sheight/weight. Estimated Glomerular Filt Rate >60 [facility] Comment:Chronic Kidney Disea se: Estimated GFR < 60 mL/min/1.36d0Noerjv Kidney Disease: Estimated GFR < 15 mL/min/1.73m2 Glucose Fasting 100(H) 60 - 99 mg/dL [facility] Comment:A fasting glucose fr om 100-125 mg/dl is considered impaired(pre-diabetes). Calcium 9.0 8.4 - 10.2 mg/dL [facility] Bilirubin, Total 0.4 0.0 - 1.0 mg/dL [facility] Aspartate Amino Transferase 22 5 - 31 U/L [facility] Alanine Aminotransferase 14 0 - 31 U/L [facility] Total Protein 7.1 6.5 - 8.0 g/dL [facility] Albumin Level 3.8 3.5 - 5.0 g/dL [facility] Alkaline Phosphatase 105 39 - 117 U/L [facility] 04/05/2025 4:34 AM EDT 04/05/2025 4:36 AM EDT us Generic External Data Provider LAB BLOOD ORDERAB LES Final Result [facility] [address] [place] [address] [phone] * (ABNORMAL) CBC auto differential (04/05/2025 4:34 AM EDT) White Blood Count 11.6(H) 4.8 - 10.8 X10*3/uL [facility] Red Blood Count 4.07(L) 4.20 - 5.50 X10*6/uL [facility] Hemoglobin 12.9 12.0 - 16.0 g/dl [facility] Hematocrit 38.1 37.0 - 47.0 % [facility] Mean Corpuscular Volume 93.6 80.0 - 98.0 fL [facility] Mean Corpuscular Hemoglobin 31.7 27.0 - 33.0 pg [facility] Mean Corpuscular HGB Conc 33.9 31.0 - 35.0 g/dl [facility] Red Cell Distribution Width 13.5 11.0 - 16.0 % [facility] Platelet Count 288 160 - 400 X10*3/uL [facility] Mean Platelet Volume 9.5 9.4 - 12.3 fL [facility] Neutrophils Percent Auto 55.7 45 - 73 % [facility] Imm Gran Pct Auto 0.4 0.0 - 0.4 % [facility] Lymphocytes Percent Auto 32.7 20 - 40 % [facility] Monocytes Percent Auto 8.2 2 - 11 % [facility] Eosinophils Percent Auto 2.2 0 - 4 % [facility] Basophils Percent Auto 0.8 0 - 2 % [facility] NRBC Pct Auto 0.0 0.0 - 0.2 /100WBC [facility] Neutrophils Absolute Auto 6.5 2.0 - 8.3 x10*3/uL [facility] Imm Gran Abs Auto 0.05(H) 0.00 - 0.03 X10*3/uL [facility] Lymphocytes Absolute Auto 3.8 1.2 - 4.9 X10*3/uL [facility] Monocytes Absolute Auto 1.0 0.1 - 1.2 X10*3/uL [facility] Eosinophils Absolute Auto 0.3 0.0 - 0.4 X10*3/uL [facility] Basophils Absolute Auto 0.1 0.0 - 0.2 X10*3/uL [facility] NRBC Abs Auto 0.000 0.0 - 0.012 X10*3/uL [facility] 04/05/2025 4:34 AM EDT 04/05/2025 4:36 AM EDT us Generic External Data Provider LAB BLOOD ORDERAB LES Final Result [facility] [address] [place] [address] [phone] * (ABNORMAL) Cologuard?? colon cancer screening (08/31/2024 10:33 AM EST) Cologuard Result Positive( A) Negative 09/07/2024 10:16 AM EST [facility] (CLIA #:[id number]) Comment: POSITIVE TEST RESULT. A positive Cologuard [...] (Ashleigh Zhou al, N Engl J Med 2014;370(14):2487-3012.) Cologuard may produce a false negative or false positive result (no colorectal cancer or precancerous polyp present at colonoscopy follow up). A negative Cologuard test result does not guarantee the absence of CRC or advanced adenoma (pre-cancer). The current Cologuard screening interval is every 3 years. ([place] Cancer Society and U.S. Multi-Society Task Force). Cologuard performance data in a 10,000 patient pivotal study using colonoscopy as the reference method can be accessed at the following location: [email or web address]. Additional description of the Cologuard test process, warnings and precautions can be found at [email or web address].com. Stool specimen (specimen) 08/31/2024 10:33 AM EST 09/01/2024 11:06 AM EST Carmen Bertrand DO LAB MOLECULAR DIAGNOSTICS OR DERABLES Final Result Performing Organization Address City/[facility] Co de Phone Number [facility] (CLIA #:[id number]) [place] [address], * Hemoglobin A1c (08/24/2024 11:57 AM EST) Hemoglobin A1c 6.0 <6.0 % [facility] Comment:Hemoglobin A1C Refer ence Range Adults: 4.8 - 6.0 % Non diabetic: < 6.0 % Goal: < 7.0 %Additional Action Suggested: > 8.0 %Note: Hemoglobin A1c results are invalid for patients with abnormal amounts of HbF. Blood transfusions may impact the HbA1c concentration in the patient sample. Estimated Average Glucose 126 mg/dL [facility] Comment:eAG = Estimated ave rage glucose which is %A1C expressed asaverage glucose, using the formula of the B5M-RxerwtqIvjfepc Glucose study (ADAG), Diabetes Care, Vol.31,#8,Mar. 2007 Blood Venous blood specimen / Unknown 08/24/2024 11:57 AM EST 08/24/2024 1:03 PM EST Carmen Bertrand DO LAB BLOOD ORDERABLES Final R esult Performing Organization Address [facility]/ZIP Co de Phone Number [facility] [address] [place] [address] [phone] * (ABNORMAL) Lipid Panel, Standard (08/24/2024 11:57 AM EST) Triglycerides 82 <150 mg/dL [facility] Comment:Desirable Triglyceri de: less than 150 mg/dLBorderline High Triglyceride 150-199 mg/dLHigh Triglyceride: 200-499 mg/dLVery High Triglyceride: greater than or equal to 5OO mg/dL Cholesterol 136 <200 mg/dL [facility] Comment:Desirable Cholestero l: less than 200 mg/dLBorderline High Cholesterol: 200-239 mg/dLHigh Cholesterol: greater than 239 mg/dL LDL Cholesterol Calculated 81 <100 mg/dL [facility] Comment:Desirable LDL: less than 100 [...] DO LAB BLOOD ORDERABLES Final R esult [facility] [address] [place] [phone] * Hepatitis C Antibody with Reflex to HCV, RNA, Quantitative, Real-Time PCR (04/27/2024 2:02 PM EDT) Hepatitis C Antibody Nonreactive Nonreactive [facility] Comment:Antibodies to HCV no t detected; does not exclude early acuteHCV infection. Blood Venous blood specimen / Unknown 04/27/2024 2:02 PM EDT 04/27/2024 4:01 PM EDT Carmen Bertrand DO LAB BLOOD ORDERABLES Final R esult Performing Organization Address City/[facility]/ZIP Co de Phone Number [facility] [address] [place] [phone] [phone] * HIV Ab/Ag (BHAVIN MCKEON) (02/21/2023 2:35 PM EDT) HIV AB/AG Nonreactive Nonreactive [facility] Comment:HIV-1 p24 Ag and/or HIV-1/HIV-2 Ab not detected.A test result that is nonreactive does not exclude thepossibility of exposure to or infection with HIV-1 and/orHIV-2. Nonreactive results in this assay for individualswith prior exposure to HIV-1 and/or HIV-2 may be due toantigen and antibody levels that are below the limit ofdetection of this assay.The [employer] Occupational Therapist HIV Ag/Ab Combo assay result andsupplemental assay results should be interpreted inconjunction with the patient's clinical presentation,history and other laboratory results. If the results areinconsistent with clinical evidence, additional testing issuggested to confirm the result. 02/21/2023 2:35 PM EDT 02/21/2023 2:37 PM EDT us [facility] External Provider LAB BLO OD ORDERABLES Final Result Performing Organization Address [facility] Co de Phone Number [facility] [address] [place] [address] [phone] from Last 3 Months or Most Recently Relevant to Health Maintenance Insurance [employer] < [address] [place] [id number] Care Teams Pipe Production Worker Relationship Specialty Start Date End Date Carmen Bertrand DO [address] [place] [address] PCP - General Family Medicine 08/18/18
--- OUTSIDE RECORDS SUMMARY | 2025-06-28 09:22 | XMS_ITS | Encounter Summary ---
Author Organization [employer] Address [address] [place] [address] 7 [place] [address] Care Team Providers Care Pilot Highway Patrol Name Role Phone Carmen Bertrand DO Primary Care Provider + [phone] Reason for Visit * Reason Comments Med Refill Encounter Details Date Type Department Care Team ([facility] st Contact Info) Description 04/04/2025 Refill [facility] [address] [place], [place] [phone] Carmen Bertrand DO [address] [place], [place] [phone] Hypertension, unspecified type; Chronic low back pain, [...] Description 09/07/2025 2:00 PM EST Clinical Support [facility] [address] [place] [address] Jessica Conway RN documented as of this encounter Visit Diagnoses Diagnosis Hypertension, unspecified type Chronic low back pain, unspecified back pain laterality, unspecified whether sciatica present documented in this encounter Additional Health Concerns Assessment Noted Time PHQ-9 Depression Total Score: 22 024 11:00 AM EDT documented as of this encounter Care Teams Pilot Highway Patrol Relationship Specialty Start Date End Date Carmen Bertrand DO [address] [place] [phone] PCP - General Family Medicine 08/18/18 documented as of this encounter"
--- OUTSIDE RECORDS SUMMARY | 2025-06-28 09:22 | XMS_ITS | Encounter Summary ---
Author Organization [employer] Address [address] [place] [address] [facility] [place] [address] Care Team Providers Care Camp Attendant Name Role Phone Carmen Bertrand DO Primary Care Provider + [phone] Reason for Visit * Reason Comments Med Refill Encounter Details Date Type Department Care Team ([facility] [address] Contact Info) Description 10/18/2022 Refill [facility] MEDICINE [address] [place], [place] [phone] Carmen Bertrand DO [address] [place] [address] Social History Tobacco Use Types Packs/Day Years [...] Upcoming Encounters Date Type Department Care Team ([facility] st Contact Info) Description 09/07/2025 2:00 PM EST Clinical Support [facility] [address] [place] [phone] Jessica Conway RN documented as of this encounter Visit Diagnoses Not on filedocumented in this encounter Additional Health Concerns Assessment Noted Time PHQ-9 Depression Total Score: 16 023 12:22 PM EST documented as of this encounter Care Teams Camp Attendant Relationship Specialty Start Date End Date Carmen Bertradn DO [address] [place] [address] PCP - General Family Medicine 08/18/18 documented as of this encounter
--- OUTSIDE RECORDS SUMMARY | 2025-06-28 09:22 | XMS_ITS | Encounter Summary ---
Author Organization [employer] Address [address] [place] [address] [place] [address] Care Team Providers Care Floral Design Teacher Name Role Phone Carmen Bertrand DO Primary Care Provider [phone] Encounter Details Date Type Department Care Team (Late st Contact Info) Description 09/09/2022 Orders Only [facility] MEDICINE [address] [place] [id number] Azul Albrecht LPN Social History Tobacco Use [...] Description 09/07/2025 2:00 PM EST Clinical Support [facility] MEDICINE [address] [place] [id number] Jessica Conway, RULA documented as of this encounter Visit Diagnoses Not on filedocumented in this encounter Care Teams Floral Design Teacher Relationship Specialty Start Date End Date Carmen Bertrand DO [address] [place] [id number] PCP - General Family Medicine 08/18/18 documented as of this encounter
--- OUTSIDE RECORDS SUMMARY | 2025-06-28 09:23 | XMS_ITS | Encounter Summary ---
Author Organization [employer] Address [address] [place] [address] [facility] [place] [address] Care Team Providers Care Customer Advocacy Manager Name Role Phone Carmen Bertrand DO Primary Care Provider + [phone] Reason for Visit * Reason Comments Med Refill Encounter Details Date Type Department Care Team ([facility] st Contact Info) Description 11/20/[address] [facility] MEDICINE [address] [place], [place] [phone] Carmen Bertrand DO [address] [place], [place] [phone] Morbid obesity with body mass index (BMI) [...] Description 09/07/2025 2:00 PM EST Clinical [address] [facility] MEDICINE [address] [place] [address] Jessica Conway, RN documented as of this encounter Visit Diagnoses Diagnosis Morbid obesity with body mass index (BMI) of 50.0 to 59.9 in adult (HCC) documented in this encounter Additional Health Concerns Assessment Noted Time PHQ-9 Depression Total Score: 16 023 12:22 PM EST documented as of this encounter Care Teams Customer Advocacy Manager Relationship Specialty Start Date End Date Carmen Bertrand DO [address] [place] [address] PCP - General Family Medicine 08/18/18 documented as of this encounter
--- OUTSIDE RECORDS SUMMARY | 2025-06-28 09:23 | XMS_ITS | Encounter Summary ---
Author Organization [employer] Address [address] [place] [address] 7 [place] [address] Care Team Providers Care Draw Fire Operator Name Role Phone Carmen Bertrand DO Primary Care Provider + [phone] Reason for Visit * Reason Comments Med Refill Encounter Details Date Type Department Care Team ([facility] st Contact Info) Description 01/26/[address] [facility] MEDICINE [address] [place], [place] [phone] Carmen Bertrand DO [address] [place], [place] [phone] Social History Tobacco Use Types Packs/Day Years [...] 09/07/2025 2:00 PM EST Clinical Support [facility] MEDICINE [address] [place] [address] Jessica Conway, RULA documented as of this encounter Visit Diagnoses Not on filedocumented in this encounter Additional Health Concerns Assessment Noted Time PHQ-9 Depression Total Score: 22 024 11:00 AM EDT documented as of this encounter Care Teams Draw Fire Operator Relationship Specialty Start Date End Date Carmen Bertrand DO [address] [place] [address] PCP - General Family Medicine 08/18/18 documented as of this encounter
--- OUTSIDE RECORDS SUMMARY | 2025-06-28 09:23 | XMS_ITS | Encounter Summary ---
Author Organization [employer] Address [address] [facility] 7 [place] [address] Care Team Providers Care Mural Painter Name Role Phone Carmen Bertrand DO Primary Care Provider + [phone] Reason for Visit * Reason Comments Med Refill Encounter Details Date Type Department Care Team (Late st Contact Info) Description 05/12/2024 Refill [facility] [address] [place], [place] [phone] Carmen Bertrand DO [address] [place] [address] Chronic low back pain, unspecified back pain [...] 2:00 PM EST Clinical Support [facility] MEDICINE [address] [place] [address] Jessica Conway RN documented as of this encounter Visit Diagnoses Diagnosis Chronic low back pain, unspecified back pain laterality, unspecified whether sciatica present documented in this encounter Additional Health Concerns Assessment Noted Time PHQ-9 Depression Total Score: 22 024 11:00 AM EDT documented as of this encounter Care Teams Mural Painter Relationship Specialty Start Date End Date Carmen Bertrand DO [address] [place] [id number] PCP - General Family Medicine 08/18/18 documented as of this encounter
--- OUTSIDE RECORDS SUMMARY | 2025-06-28 09:23 | XMS_ITS | Encounter Summary ---
Author Organization [employer] Address [address] [place] [address] [place] [address] Care Team Providers Care Health Counselor Name Role Phone Carmen Bertrand DO Primary Care Provider + [phone] Reason for Visit * Reason Onset Date Comments Hospital Follow-up 11/12/2024 Encounter Details Date Type Department Care Team ([facility] Contact Info) Description 11/12/2024 Telephone [facility] MEDICINE [address] [place] [address] Carmen Bertrand DO [address] [place], [place] [phone] Hospital Follow-up Social History Tobacco Use Types [...] from pt requesting a HDF appt. Hospital: [facility] [place] Date of admission: 11/07/2024 Discharge date: 11/12/2024 Diagnosed: heart attack *Send message to [place] Clinical Care Coordinators documented in this encounter Plan of Treatment Upcoming Encounters Date Type Department Care Team (Late st Contact Info) Description 09/07/2025 2:00 PM EST Clinical Support [facility] MEDICINE [address] [place] [address] Jessica Conway, RULA documented as of this encounter Visit Diagnoses Not on filedocumented in this encounter Additional Health Concerns Assessment Noted Time PHQ-9 Depression Total Score: 22 024 11:00 AM EDT documented as of this encounter Care Teams Health Counselor Relationship Specialty Start Date End Date Carmen Bertrnad DO [address] [place] [address] PCP - General Family Medicine 08/18/18 documented as of this encounter
--- OUTSIDE RECORDS SUMMARY | 2025-06-28 09:23 | XMS_ITS | Encounter Summary ---
Author Organization [employer] Address [address] [place] [address] 7 [place] [address] Care Team Providers Care Fish Trapper Name Role Phone Carmen Bertrand DO Primary Care Provider + [phone] Reason for Visit * Reason Comments Med Refill Encounter Details Date Type Department Care Team ([facility] st Contact Info) Description 02/04/2025 Refill [facility] MEDICINE [address] [place], [place] [phone] Carmen Bertrand DO [address] [place], [place] [phone] Chronic low back pain, unspecified back pain [...] Clinical Support [facility] MEDICINE [address] [place] [address] Jessica Conway RN documented as of this encounter Visit Diagnoses Diagnosis Chronic low back pain, unspecified back pain laterality, unspecified whether sciatica present documented in this encounter Additional Health Concerns Assessment Noted Time PHQ-9 Depression Total Score: 22 024 11:00 AM EDT documented as of this encounter Care Teams Fish Trapper Relationship Specialty Start Date End Date Carmen Bertrand DO [address] [place] [address] PCP - General Family Medicine 08/18/18 documented as of this encounter
--- OUTSIDE RECORDS SUMMARY | 2025-06-28 09:23 | XMS_ITS | Encounter Summary ---
Author Organization [employer] Address [address] [place] [address] 7 [place] [address] Care Team Providers Care Cash Management Associate Name Role Phone Elza Carmen Primary Care Provider + [phone] Reason for Visit * Reason Comments Med Refill Encounter Details Date Type Department Care Team ([facility] st Contact Info) Description 01/13/2024 Refill [facility] MEDICINE [address] [place] [address] Rox Sutton MD [address] [place] [address] Pain Social History Tobacco Use Types Packs/Day [...] Description 09/07/2025 2:00 PM EST Clinical Support [facility] MEDICINE [address] [place] [address] Jessica Conway RN documented as of this encounter Visit Diagnoses Diagnosis Pain Generalized pain documented in this encounter Additional Health Concerns Assessment Noted Time PHQ-9 Depression Total Score: 21 023 11:26 AM EST documented as of this encounter Care Teams Cash Management Associate Relationship Specialty Start Date End Date Carmen Bertrand DO [address] [place] [address] PCP - General Family Medicine 08/18/18 documented as of this encounter
--- OUTSIDE RECORDS SUMMARY | 2025-06-28 09:23 | XMS_ITS | Encounter Summary ---
Author Organization [employer] Address [address] [place] [address] 7 [place] [address] Care Team Providers Care Substation Operator Name Role Phone Carmen Bertrand DO Primary Care Provider + [phone] Reason for Visit * Reason Comments Med Refill Encounter Details Date Type Department Care Team ([facility] st Contact Info) Description 06/01/2025 Refill [facility] MEDICINE [address] [place], [place] [phone] Carmen Bertrand DO [address] [place], [place] [phone] Chronic low back pain, unspecified back pain [...] 2:00 PM EST Clinical Support [facility] MEDICINE [address] [place] [address] Jessica Conway RN documented as of this encounter Visit Diagnoses Diagnosis Chronic low back pain, unspecified back pain laterality, unspecified whether sciatica present documented in this encounter Additional Health Concerns Assessment Noted Time PHQ-9 Depression Total Score: 22 024 11:00 AM EDT documented as of this encounter Care Teams Substation Operator Relationship Specialty Start Date End Date Carmen Bertrand DO [address] [place] [address] PCP - General Family Medicine 08/18/18 documented as of this encounter
== END 2025-06-28 08:57 | disposition home or self-care (01) ==
LOC: HO.XRAY 08:56
PROVIDERS: PCP Family Medicine; Visit Provider Nurse Practitioner Family
DX: Z13.89 Encounter for screening for other disorder (principal)

== ENCOUNTER 2025-06-28 09:22 | Emergency (ER) | payer OTHER, SELFPAY ==
[2025-06-14 13:00] VITALS: BP 128/72; BP 140/60; BP 148/88; BMI 63.7
--- NOTE | ~2025-06-28 | XR_ITS ---
EXAMINATION: XR SHOULDER, RIGHT CLINICAL INFORMATION: syncope, right shoulder pain COMPARISON: Chest x-ray November 25, 2024 TECHNIQUE: Three views of the right shoulder. FINDINGS: AC joint is intact and not degenerated. Humeral head is subluxed anteroinferiorly but not clearly dislocated. No fracture is identified. XR/XR shoulder RT min 2V IMPRESSION: Humeral head appears anteroinferiorly subluxed, similar to prior chest x-ray, and is likely within normal limits for this patient. Electronically signed by: Lars Perez MD 06/28/2025 01:38 PM [facility]
[2025-06-28 09:32] LABS: Hematocrit 44.7 % (37.0-47.0); Hemoglobin 14.7 g/dl (12.0-16.0); Mean Corpuscular HGB Conc 32.9 g/dl (31.0-35.0); Mean Corpuscular Hemoglobin 31.1 pg (27.0-33.0); Mean Corpuscular Volume 94.5 fL (80.0-98.0); NRBC Abs Auto 0.000 X10*3/uL (0.0-0.012); NRBC Pct Auto 0.0 /100WBC (0.0-0.2); Platelet Count 260 X10*3/uL (160-400); Red Blood Count 4.73 X10*6/uL (4.20-5.50); White Blood Count 12.6 X10*3/uL (4.8-10.8)
[2025-06-28 09:41] VITALS: BP 102/63; PULSE 81; RESP 20; TEMP 36.6; O2SAT 98; BMI 52.4
[2025-06-28 09:42] LABS: INTERNATIONAL NORM RATIO 1.0 (0.9-1.1); Prothrombin Time 11.9 SEC (11.2-13.5)
[2025-06-28 09:47] LABS: Alanine Aminotransferase 24 U/L (0-31); Albumin Level 3.8 g/dL (3.5-5.0); Alkaline Phosphatase 113 U/L (39-117); Anion Gap 12 (12-20); Aspartate Amino Transferase 35 U/L (5-31); Blood Urea Nitrogen 17 mg/dL (9-16); Calcium 9.7 mg/dL (8.4-10.2); Carbon Dioxide 19 mmol/L (22-29); Chloride 113 mmol/L (96-108); Creatinine Clr Calc Pharmacy 98.0; Estimated Glomerular Filt Rate 55; Potassium 3.4 mmol/L (3.3-5.1); Sodium 141 mmol/L (135-145); Total Protein 7.4 g/dL (6.5-8.0)
[2025-06-28 09:55] LABS: Troponin-I High Sensitivity < 2.7 ng/L (<3.5-17.0)
[2025-06-28 10:50] LABS: Atypical Lymph Absolute Manual 2.0 x10*3/uL; Atypical Lymphs Percent Manual 16 % (0-6); Band Neutrophils Percent 0 % (3-5); Eosinophils Absolute Manual 0.3 X10*3/uL (0.0-0.4); Eosinophils Percent Manual 2 % (0-4); Lymphocytes Absolute Manual 5.2 X10*3/uL (1.2-4.9); Lymphocytes Percent Manual 41 % (20-40); Monocytes Absolute Manual 0.8 X10*3/uL (0.1-1.2); Monocytes Percent Manual 6 % (2-11); Neutrophils Absolute Manual 4.4 X10*3/uL (2.0-8.3); Neutrophils Percent Manual 35 % (45-73); RBC Morphology NORMAL
[2025-06-28 10:51] LABS: Smudge Cells PRESENT
--- NOTE | 2025-06-28 11:11 | ED.CHESTPAIN ---
HPI - Chest Pain General Chief Complaint: Chest Pain Stated Complaint: syncope Time Seen by Provider: 06/28/25 09:37 History of Present Illness ED Provider: Dr. Wallace HPI narrative: 50 y/o F patient; PMH YAMILETH, arthritis, obesity, T2DM, HLD, CAD; presents as a rapid response from barium swallow. The patient went to use the bathroom before the barium study. She sat down on the toilet, she began to feel lightheaded and with nausea. She felt like she might pass out. She called for help. Staff moved the patient to a stretcher where she had an episode of NBNB vomiting and urinated. On arrival in the emergency department her primary complaint is right shoulder pain with mild right arm paresthesias. She states this is a chronic complaint. She otherwise denies: fever or chills, SOB, chest pain, abdominal pain. She feels like she is due to have a large bowel movement. The patient was due to have barium swallow to assess hiatal hernia as part of her out-patient GI work up. Related Data Home Medications ?Medication ?Instructions ?Recorded ?Confirmed albuterol sulfate 90 mcg/actuation 2 puff PO Q4-6H PRN Wheezing 12/01/20 06/14/25 aerosol inhaler (Ventolin HFA) fluticasone propionate 50 2 spray intranasal DAILY 12/01/20 06/14/25 mcg/actuation nasal spray,suspension blood pressure test kit-large #1 ea 12/19/20 05/27/25 topiramate 50 mg tablet 50 mg PO BID 12/19/20 06/14/25 cholecalciferol (vitamin D3) 50 50 mcg PO DAILY 03/13/22 06/14/25 mcg (2,000 unit) capsule metoprolol succinate 50 mg 50 mg PO DAILY 07/01/22 06/14/25 tablet,extended release 24 hr tramadol 50 mg tablet 50 mg PO Q8H PRN severe pain 10/24/22 06/14/25 metronidazole 0.75 % topical gel 1 appl topical DAILY PRN Rash 10/25/22 06/14/25 albuterol sulfate 2.5 mg/3 mL 2.5 mg inhalation Q4-6H PRN 11/15/22 06/14/25 (0.083 %) solution for nebulization Wheezing fluticasone propionate 110 2 puff inhalation BID 11/13/23 06/14/25 mcg/actuation HFA aerosol inhaler benzoyl peroxide 10 % topical 1 appl topical DAILY 11/08/24 06/14/25 cleanser econazole nitrate 1 % topical cream 1 appl topical BID 11/08/24 06/14/25 emtricitabine 200 mg-tenofovir 1 tab PO DAILY 11/08/24 06/14/25 disoproxil fumarate 300 mg tablet hydroquinone 4 % topical cream 1 appl topical BID 11/08/24 06/14/25 nitroglycerin 0.4 mg sublingual 0.4 mg sublingual Q5M PRN Chest 12/13/24 06/14/25 tablet Pain clopidogrel 75 mg tablet 75 mg PO DAILY 01/12/25 06/14/25 tirzepatide (weight loss) 5 mg/0.5 mg subcut QWEEK 02/03/25 06/14/25 mL subcutaneous pen injector (Zepbound) Previous Rx's ?Medication ?Instructions ?Recorded amlodipine 5 mg tablet (Norvasc) 5 mg PO DAILY #90 tabs 11/09/24 hydrochlorothiazide 12.5 mg tablet 12.5 mg PO DAILY #90 tabs 11/19/24 aspirin 81 mg tablet,delayed 81 mg PO DAILY #90 tabs 12/13/24 release atorvastatin 80 mg tablet (Lipitor) 80 mg PO BEDTIME #90 tabs 12/13/24 ezetimibe 10 mg tablet 10 mg PO DAILY #90 tabs 12/13/24 lisinopril 20 mg tablet 20 mg PO DAILY #90 tabs 12/13/24 allopurinol 100 mg tablet 100 mg PO DAILY 90 days #90 tabs 12/20/24 famotidine 40 mg tablet 40 mg PO BEDTIME PRN heartburn #90 01/27/25 tabs pantoprazole 20 mg tablet,delayed 20 mg PO DAILY #90 tabs 01/27/25 release doxycycline hyclate 100 mg tablet 100 mg PO BID #14 tabs 02/03/25 pyridoxine (vitamin B6) 100 mg 100 mg PO DAILY 90 days #90 tabs 02/07/25 tablet Lactobacillus acidophilus 100 mg 10,000 mmu cells PO BID #60 caps 06/08/25 (1 billion cell) capsule isosorbide mononitrate 120 mg 120 mg PO DAILY #30 tabs 06/14/25 tablet,extended release 24 hr Allergies Allergy/AdvReac Type Severity Reaction Status Date / Time penicillin G (PENICILLIN G) Allergy Severe DIFFICULTY Verified 06/28/25 09:44 BREATHING semaglutide (From Ozempic) AdvReac Severe Stomach Verified 06/28/25 09:44 Upset Review of Systems Review of Systems: Yes all other systems are reviewed and are negative PMFSH Past Medical History Attestation statement: The following information was validated with the patient. Source: old records reviewed Medical History Hiatal hernia Odynophagia Pain of right clavicle Constipation Polyarticular osteoarthritis Tubular adenoma of colon Delgado esophagus Morbid obesity Hidradenitis suppurativa CAD (coronary artery disease) Subsequent non-ST elevation myocardial infarction (NSTEMI) within 4 weeks of initial infarction Non-ST elevation SC (NSTEMI) YAMILETH on CPAP Hyperlipidemia PTSD (post-traumatic stress disorder) Fatty liver Smoker Depression Obesity Leukocytosis Frequent UTI Asthma Mass of throat Chronic pain Kidney stone Migraine HTN (hypertension) Surgical History History of esophagogastroduodenoscopy (EGD) H/O excision of mass (06/28/24) Hx of cystoscopy Stented coronary artery History of heart artery stent History of lumpectomy of left breast (10/22/21) History of lithotripsy History of endometrial ablation Hx of colonoscopy History of breast lump/mass excision History of tonsillectomy H/O: hysterectomy Family History Family History Father Hypertension Mother Hypertension Osteoporosis Hx of bilateral cataract extraction Paternal Grandmother Diabetes Sister Asthma Maternal Uncle Throat cancer Maternal Aunt Ovarian cancer Breast cancer Social History Social History Household Members: Family Housing: Apartment Are you a primary health care coordinator to a significant other at home: No Do you presently have visiting nurse or other home services: No Alcohol intake: never Comment: pt refusing alarms Patient Tobacco Use Status: Current everyday Tobacco user Tobacco use type: Cigarette Cigarette Packs Per Day: 0.5 Cigarettes Per Day: 10 Years Smoked: 30 e-Cigarette/Vaping Use: Never Used Second Hand Smoke Exposure: No Advance Directives: Yes Advance Directives on File: Yes Advance Directives Date on File: 10/28/22 Do you have a plan to hurt others: No Plan Patient : No service: No Current occupational status: unemployed and retired Physical Exam Vital Signs: Vital Signs: Last Vital Signs Temp 98.1 F 06/28/25 12:11 Pulse 73 06/28/25 12:11 Resp 15 06/28/25 12:11 BP 125/69 06/28/25 12:11 Pulse Ox 98 06/28/25 12:11 O2 Del Method Room Air 06/28/25 12:11 BMI result Body Mass Index 52.4 Patient is afebrile and hemodynamically stable Const: General: cooperative and no acute distress Orientation/consciousness: patient oriented x3 HEENT: Head: Yes normal to inspection and Yes atraumatic Eyes: General: appearance normal, both eyes and all related structures Pupils: Equal, round and reactive pupils present EOM: EOMs intact bilaterally Neck: Neck: Yes normal visual inspection, Yes full ROM, Yes supple and No tender Chest: Chest palpation & inspection: normal inspection of the chest and normal palpation of entire chest wall Resp: Effort & Inspection: normal respiratory effort, able to speak in complete sentences and no cough Auscultation: clear to auscultation bilaterally Cardio: Rate: regular rate Peripheral pulses: Peripheral pulses 2+ throughout GI: Inspection: Yes normal to inspection, No Abdominal wall edema and No distended Palpation (GI): Soft to palpation, not firm, nontender, no guarding and not rigid Auscultation: normal bowel sounds Back/Spine/Pelvis: Back: No back tenderness Neuro: Other: Strength 5/5 upper and lower extremities. Sensation 5/5 upper and lower extremities. No facial droop. No slurred speech. Intact finger to nose. No speech difficulties. General: patient oriented x3 Cranial nerves: Yes Equal, round and reactive pupils present Course Course Course Narrative: Requested to see patient immediately due to concern for possible life threatening deterioration in condition. Staff concern patient may be having a stroke due to RUE complaints. NIHSS 0. Patient and daughter at bedside state right upper extremity concerns are chronic and due to right shoulder pain which the patient has been experiencing. Will obtain EKG and screening labs. I do not think patient's exam today is consistent with a CVA episode. Possibly 2/2 to vasovagal episode considering prodrome of dizziness followed by nausea/vomiting. While in the emergency department she has been noted to have a very large loose bowel movement. The patient will be observed. She is ambulating without difficulty or assistance. Labs reviewed. No significant leukocytosis. No significant anemia. LA 2.4, improved to 1.3 without intervention. Per staff present at scene of event, no evidence of seizure like activity. Initial troponin negative, will plan repeat. I reviewed the patient's most recent emergency department visit from 04/05/2025 for left shoulder/arm pain. She had work up including EKG, Labs, CXR at that time which were reassuring. She was discharged to home to follow up with her primary doctor. Patient is requesting XR of her right shoulder. XR with chronic anterior-inferior subluxation. 2nd troponin remains flat. No further abnormal activity in the emergency department. Patient states she has had resolution of all symptoms other than her non-bloody loose bowel movements. She denies any headache or neck pain. Never had fall or trauma. She feels comfortable with plan for discharge to home. Plan: Discharge to home with PCP follow up Return precautions given Medical Decision Making Lab Data 06/28/25 09:25 06/28/25 09:25 Labs: Lab Results 06/28/25 06/28/25 06/28/25 Range/Units 09:25 12:19 13:59 WBC 12.6 H (4.8-10.8) X10*3/uL RBC 4.73 (4.20-5.50) X10*6/uL Hgb 14.7 (12.0-16.0) g/dl Hct 44.7 (37.0-47.0) % MCV 94.5 (80.0-98.0) fL MCH 31.1 (27.0-33.0) pg MCHC 32.9 (31.0-35.0) g/dl RDW 13.8 (11.0-16.0) % Plt Count 260 (160-400) X10*3/uL MPV 9.9 (9.4-12.3) fL Immature Gran % (Auto) Cancelled Neut % (Auto) Cancelled Lymph % (Auto) Cancelled Maries % (Auto) Cancelled Eos % (Auto) Cancelled Baso % (Auto) Cancelled Lymph # (Auto) Cancelled Maries # (Auto) Cancelled Eos # (Auto) Cancelled Baso # (Auto) Cancelled Abs Immat Gran (auto) Cancelled Absolute Neuts (auto) Cancelled Absolute Nucleated RBC 0.000 (0.0-0.012) X10*3/uL Nucleated RBC % (auto) 0.0 (0.0-0.2) /100WBC Neutrophils % (Manual) 35 L (45-73) % Band Neutrophils % 0 L (3-5) % Lymphocytes % (Manual) 41 H (20-40) % Atypical Lymphs % (Man) 16 H (0-6) % Monocytes % (Manual) 6 (2-11) % Eosinophils % (Manual) 2 (0-4) % Abs Neuts (Manual) 4.4 (2.0-8.3) X10*3/uL Lymphocytes # (Manual) 5.2 H (1.2-4.9) X10*3/uL Atyp Lymphs # (Manual) 2.0 x10*3/uL Monocytes # (Manual) 0.8 (0.1-1.2) X10*3/uL Eosinophils # (Manual) 0.3 (0.0-0.4) X10*3/uL Smudge Cells PRESENT Platelet Estimate NORMAL (NORMAL) Plt Morphology Comment NORMAL RBC Morphology NORMAL Smear Tech's Comments MANUAL DIFF PT 11.9 (11.2-13.5) SEC INR 1.0 (0.9-1.1) Sodium 141 (135-145) mmol/L Potassium 3.4 (3.3-5.1) mmol/L Chloride 113 H (96-108) mmol/L Carbon Dioxide 19 L (22-29) mmol/L Anion Gap 12 (12-20) BUN 17 H (9-16) mg/dL Creatinine 1.07 (0.5-1.4) mg/dL Estim Creat Clear Calc 98.0 Estimated GFR 55 Random Glucose 142 H (60-115) mg/dL Lactic Acid 2.4 H* (0.5-2.0) mmol/L Lactic Acid F/U @ 2Hr 1.3 (0.5-2.0) mmol/L Calcium 9.7 D (8.4-10.2) mg/dL Total Bilirubin 0.4 (0.0-1.0) mg/dL AST 35 H (5-31) U/L ALT 24 (0-31) U/L Alkaline Phosphatase 113 (39-117) U/L Troponin I High Sens < 2.7 4.7 D (<3.5-17.0) ng/L Total Protein 7.4 (6.5-8.0) g/dL Albumin 3.8 (3.5-5.0) g/dL Radiology Impression Discussion of test interpretation with radiology: I have reviewed the radiologist's reading. Radiologist Impression: EXAMINATION: XR SHOULDER, RIGHT CLINICAL INFORMATION: syncope, right shoulder pain COMPARISON: Chest x-ray November 25, 2024 TECHNIQUE: Three views of the right shoulder. FINDINGS: AC joint is intact and not degenerated. Humeral head is subluxed anteroinferiorly but not clearly dislocated. No fracture is identified. XR/XR shoulder RT min 2V IMPRESSION: Humeral head appears anteroinferiorly subluxed, similar to prior chest x-ray, and is likely within normal limits for this patient. Electronically signed by: Lars Perez MD 06/28/2025 01:38 PM [facility] Discharge Plan Discharge Clinical Impression: Syncope Patient Disposition: Home, Self-Care Instructions: Syncope (ED) Additional Instructions: You were seen today after passing out. You had labs, EKG, and XR Right Shoulder. You were observed without further passing out episodes. Please follow up with your primary doctor within the next 1 - 2 days to discuss your recent emergency department visit and for a close re-evaluation. Return to the emergency department with any concerns. Prescriptions: No Action hydrochlorothiazide 12.5 mg tablet 12.5 mg PO DAILY Qty: 90 4RF allopurinol 100 mg tablet 100 mg PO DAILY 90 Days Qty: 90 1RF albuterol sulfate [Ventolin HFA] 90 mcg/actuation HFA aerosol inhaler 2 puff PO Q4-6H PRN (Reason: Wheezing) fluticasone propionate 50 mcg/actuation spray,suspension 2 spray intranasal DAILY metronidazole 0.75 % gel 1 appl topical DAILY PRN (Reason: Rash) clopidogrel 75 mg tablet 75 mg PO DAILY hydroquinone 4 % cream 1 appl topical BID benzoyl peroxide 10 % cleanser 1 appl topical DAILY emtricitabine-tenofovir (TDF) 200-300 mg tablet 1 tab PO DAILY econazole nitrate 1 % cream 1 appl topical BID amlodipine [Norvasc] 5 mg tablet 5 mg PO DAILY Qty: 90 0RF topiramate 50 mg tablet 50 mg PO BID (DME) blood pressure test kit-large Kit See Rx Instructions .ROUTE DIRECTED Qty: 1 Rx Instructions: As directed tramadol 50 mg tablet 50 mg PO Q8H PRN (Reason: severe pain) cholecalciferol (vitamin D3) 50 mcg (2,000 unit) capsule 50 mcg PO DAILY metoprolol succinate 50 mg tablet extended release 24 hr 50 mg PO DAILY fluticasone propionate 110 mcg/actuation HFA aerosol inhaler 2 puff inhalation BID nitroglycerin 0.4 mg tablet, sublingual 0.4 mg sublingual Q5M PRN (Reason: Chest Pain) Rx Instructions: do not exceed 3 doses per episode atorvastatin [Lipitor] 80 mg tablet 80 mg PO BEDTIME Qty: 90 3RF ezetimibe 10 mg tablet 10 mg PO DAILY Qty: 90 3RF aspirin 81 mg tablet,delayed release (DR/EC) 81 mg PO DAILY Qty: 90 3RF lisinopril 20 mg tablet 20 mg PO DAILY Qty: 90 3RF Rx Instructions: dose reduced pyridoxine (vitamin B6) 100 mg tablet 100 mg PO DAILY 90 Days Qty: 90 3RF pantoprazole 20 mg tablet,delayed release (DR/EC) 20 mg PO DAILY Qty: 90 1RF Rx Instructions: take one tablet daily. Best taken 30 minutes before a meal famotidine 40 mg tablet 40 mg PO BEDTIME PRN (Reason: heartburn) Qty: 90 0RF Rx Instructions: Take one tablet as needed at bedtime for breakthrough heartburn Lactobacillus acidophilus 100 mg (1 billion cell) capsule 10,000 mmu cells PO BID Qty: 60 0RF Rx Instructions: Take once tablet twice daily until complete albuterol sulfate 2.5 mg /3 mL (0.083 %) solution for nebulization 2.5 mg inhalation Q4-6H PRN (Reason: Wheezing) isosorbide mononitrate 120 mg tablet extended release 24 hr 120 mg PO DAILY Qty: 30 5RF Zepbound 5 mg/0.5 mL pen injector subcut QWEEK doxycycline hyclate 100 mg tablet 100 mg PO BID Qty: 14 0RF Print Language: Bangladeshi
--- OUTSIDE RECORDS SUMMARY | 2025-06-28 11:18 | XMS_ITS | Data Portability ---
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 Procedures None recorded. Surgeries None recorded. Imaging None recorded. Medication Orders albuterol sulfate 2.5 mg/3 mL (0.083 %) solution for nebulizatio n 2024 025 [facility] #[id number], [address] [place], [address], 5 18:27:03 Patient TargetsNo targets recorded. Patient [...] Name and Address Organization Details Recorded Time 97013 aspirin medicatio n Not available Not available Not available 10/05/2024 1191 RxNorm Not Available [facility] - production 5 13:36:43 53422 penicilli n V Not available Not available Not available Not available 10/05/2024 7984 RxNorm Not Available [facility] - production 5 13:36:43 81527 penicilli n G procaine medicatio n Not available Not available Not available 10/05/2024 7983 RxNorm Not Available [facility] - production 5 13:36:43 76279 penicilli n G benzathin e medicatio n [...] % 172.72 cm 18 /min 98.4 [degF] 269246. 272 g 131/78 mm[Hg] Not Available [facility] [...] ICD10 Code Diagnosis IMO Codes Diagnosis Note [id number] Reese Jarvis MD Main - [facility] [address] [place] [phone] 10/05/2024 14:55:01 10/07/2024 08:39:41 Wheezing 72812483 R06.2 Health Concerns Section Related Observation LastModified by Organization Detai ls LastModified Time None Recorded Concern Status LastModified by Organization Details LastModified Time None Recorded Advance Directives Directive None Recorded Payers Insurance Date Sequence Insurance Name Policy Number Policy Parra Covered Member ID Parra Member ID Guarantor Name 10/05/2024 1 [facility] - DOS ON OR AFTER 2022 - DUAL ELIGIBLE - NURSING HOME OPTIONS AND ONE CARE (MEDICARE REPLACEMENT/ADV ANTAGE - HMO) Blaire Jean [id number] Blaire Santosrio Jean Notes Date Note Type Note Provider Name and Address Organization Details Recorded Time 10/05/2024 text/html HPI: Call returned to Blaire Jean to triage below. Reports having Headache, Fever, Body Aches, Sore Throat, Runny Nose x 3 days. Per pt seen at [facility] ER on Friday. Per pt seen for CP. Had testing done while in ER. Pt had negative homekit for COVID-19 last night. Reports having SOB with exertion. No wheezing. Pt speaking in clear full sentences. Pt advised of disposition, unable to come into [facility]. Agrees to [facility] for evaluation. Confirmed demographics and allergies. .................. .................. .................. .................. .................. .................. .................. ............... [facility] Nurse Triage Notes (Radha Martinez - RN): Chief Complaints: Cough, Fever/chills, Headache, Sore throat, Breathing problems PMH: Hypertension, Asthma, Coronary Artery Disease PMH Reviewed at 10/05/2024 - 13:36 Allergies Reviewed at 10/05/2024 - 13:36 Comments: CRC RN did not require any additional information to process this visit. [employer] Organization Information for Ankita Castillo Business Legal Name: [employer]. Address: [address] [place] [id number], Collection Agent: Marino Dow MD CLIA No.: [id number] [employer] POC Test Results from Ankita Castillo Rapid COVID antigen (14:56:21) COVID: - Rapid influenza antigen (14:56:24) Flu: - Rapid strep test (14:56:25) Strep: - .................. .................. .................. .................. .................. .................. .................. ............... [employer] Note From Ankita Castillo: Sent to a call for a pt complaining of URI symptoms. [facility] arrives on scene, pt is alert and oriented, airway is patent. Pt complains of URI symptoms since Friday. Pt states she had chest tightness Friday-Friday, but was evaluated at [facility] ED on Friday. Pt states she [...] administered; Lung sounds: clear bilaterally; SpO2:98% RA; [facility] consulted and sends script to pt's pharmacy for Albuterol neb solutions. Red flags discussed. Pt has no further questions. .................. .................. .................. .................. .................. .................. .................. ............... [facility] Consulted: Reese Jarvis .................. .................. .................. .................. .................. .................. .................. ............... Disposition: Fulfilled Reese Jarvis MD [address] [facility], [place], [phone], [employer] Technologies[employer]NADINE SIMENTAL 10/06/2024 15:39:31 OBGyn Episode No OBEpisode recorded.
[2025-06-28 11:30] LABS: Reflex Lactate? Lactic Acid Added
--- NOTE | 2025-06-28 11:41 | MHC.EDTECH ---
attempted to do repeat lactic pt is not in the room
[2025-06-28 12:11] VITALS: BP 125/69; PULSE 73; RESP 15; TEMP 36.7; O2SAT 98
[2025-06-28 12:42] LABS: ~Lactic Acid-LAB USE ONLY 1.3 mmol/L (0.5-2.0)
--- NOTE | 2025-06-28 14:01 | MHC.EDTECH ---
2nd trop drawn/sent.
[2025-06-28 14:26] LABS: Troponin-I High Sensitivity 4.7 ng/L (<3.5-17.0)
[2025-06-28 15:15] VITALS: BP 125/69; PULSE 73; RESP 15; TEMP 36.7; O2SAT 98
== END 2025-06-28 15:16 | disposition home or self-care (01) ==
PROVIDERS: Emergency Provider Emergency Medicine
DX: R55 Syncope and collapse (principal); M25.511 Pain in right shoulder; R07.9 Chest pain, unspecified; E11.9 Type 2 diabetes mellitus without complications; E78.5 Hyperlipidemia, unspecified; I25.10 Atherosclerotic heart disease of native coronary artery without angina pectoris; I10 Essential (primary) hypertension
CPT/HCPCS: 36415; 73030; 80053; 83605; 84484; 85007; 85025; 85027; 85610; 99284

== ENCOUNTER → 2025-06-28 13:13 | Outpatient (BNV) | payer OTHER, SELFPAY ==
[2025-06-14 13:00] VITALS: BP 128/72; BP 140/60; BP 148/88; BMI 63.7
== END ==
PROVIDERS: Emergency Provider Emergency Medicine; Visit Provider Radiology Diagnostic Radiology
DX: M25.511 Pain in right shoulder (principal); R55 Syncope and collapse
CPT/HCPCS: 73030

== ENCOUNTER 2025-06-29 17:04 | Emergency (ER) | payer OTHER, SELFPAY ==
[2025-06-14 13:00] VITALS: BP 128/72; BP 140/60; BP 148/88; BMI 63.7
--- NOTE | ~2025-06-29 | CT_ITS ---
CLINICAL HISTORY: Left-sided abdominal pain, bloody stool CT abdomen and pelvis with contrast Comparison: CT/REG/OR/SR - CT ABDOMEN PELVIS WITHOUT IV CONTRAST - 01/28/25 15:37 EDT Findings: Lung bases: Mild subsegmental atelectasis of the lung bases. Liver: No focal lesions. No biliary ductal dilatation. Patent portal vein. Gallbladder: Noninflamed gallbladder. Spleen: Normal Pancreas: No solid mass or main duct dilation. Adrenal glands: No nodules. Kidneys: No hydronephrosis. Right nonobstructing renal stones. No solid mass. Pelvic organs: Status post hysterectomy. The bladder is decompressed. Peritoneum and Gastrointestinal: Mild inflammation of the colon extending from the distal transverse colon to the rectum. The lumen of the bowel is overall decompressed. There is a 1.4 cm nodule in the left upper quadrant measuring 1.3 cm (4, 172). It is unchanged in size dating back to October 2023. No bowel obstruction, pneumoperitoneum, or ascites. Lymph nodes: No lymphadenopathy. Vessels: Atherosclerosis. Bones and soft tissues: Unremarkable. IMPRESSION: Infectious/inflammatory colitis extending from the mid transverse colon to the rectum. 1.3 cm nodule in the left upper quadrant which is unchanged dating back to October 2023 which may represent a chronically torsed appendage. Alternative, less likely, possibility is endometriosis if patient has recurrent upper abdominal pain. This document has been electronically signed by: Jyoti Garcia MD on 06/29/2025 19:48:23
[2025-06-29 17:12] VITALS: BP 140/88; PULSE 84; RESP 18; TEMP 36.4; O2SAT 98; BMI 49.7
--- NOTE | 2025-06-29 17:19 | ED.GENADULT ---
HPI - General Adult General Chief complaint: General Medical Stated complaint: left side abd pain, bloody stool Time Seen by Provider: 06/29/25 18:05 History of Present Illness ED Provider: Parish SYKES narrative: The patient is a 50-year-old woman with a history of multiple medical problems including coronary artery disease and hidradenitis suppurativa who had come to the hospital yesterday for a barium swallow. It is not clear exactly why she was ordered the barium swallow. However she experienced a syncopal episode while in the hospital prior to the test being done. A rapid response was called and she was brought to the emergency room for evaluation. She was felt to have had a vasovagal syncopal episode and was discharged. The patient tells me that she has a syncopal episode yesterday when she had left-sided abdominal pain and she also had multiple episodes of stool. She comes to the hospital today because she has continued to have left-sided abdominal pain and she has also had some jelly like bloody stools. She has not had a fever however. Additionally the patient is complaining of a painful lump under her right breast. This has been going on for a proximally 2 weeks. Additionally the patient says that she feels that her distance vision is foggier than usual. She says that this started yesterday evening. She thinks it might be slightly worse in the left eye. She has no eye pain associated with this. She says that her near vision and her mid distance vision is unaffected. She says that she uses reading glasses but does not normally use distance glasses. Related Data Home Medications ?Medication ?Instructions ?Recorded ?Confirmed albuterol sulfate 90 mcg/actuation 2 puff PO Q4-6H PRN Wheezing 12/01/20 06/14/25 aerosol inhaler (Ventolin HFA) fluticasone propionate 50 2 spray intranasal DAILY 12/01/20 06/14/25 mcg/actuation nasal spray,suspension blood pressure test kit-large #1 ea 12/19/20 05/27/25 topiramate 50 mg tablet 50 mg PO BID 12/19/20 06/14/25 cholecalciferol (vitamin D3) 50 50 mcg PO DAILY 03/13/22 06/14/25 mcg (2,000 unit) capsule metoprolol succinate 50 mg 50 mg PO DAILY 07/01/22 06/14/25 tablet,extended release 24 hr tramadol 50 mg tablet 50 mg PO Q8H PRN severe pain 10/24/22 06/14/25 metronidazole 0.75 % topical gel 1 appl topical DAILY PRN Rash 10/25/22 06/14/25 albuterol sulfate 2.5 mg/3 mL 2.5 mg inhalation Q4-6H PRN 11/15/22 06/14/25 (0.083 %) solution for nebulization Wheezing fluticasone propionate 110 2 puff inhalation BID 11/13/23 06/14/25 mcg/actuation HFA aerosol inhaler benzoyl peroxide 10 % topical 1 appl topical DAILY 11/08/24 06/14/25 cleanser econazole nitrate 1 % topical cream 1 appl topical BID 11/08/24 06/14/25 emtricitabine 200 mg-tenofovir 1 tab PO DAILY 11/08/24 06/14/25 disoproxil fumarate 300 mg tablet hydroquinone 4 % topical cream 1 appl topical BID 11/08/24 06/14/25 nitroglycerin 0.4 mg sublingual 0.4 mg sublingual Q5M PRN Chest 12/13/24 06/14/25 tablet Pain clopidogrel 75 mg tablet 75 mg PO DAILY 01/12/25 06/14/25 tirzepatide (weight loss) 5 mg/0.5 mg subcut QWEEK 02/03/25 06/14/25 mL subcutaneous pen injector (Zepbound) Previous Rx's ?Medication ?Instructions ?Recorded amlodipine 5 mg tablet (Norvasc) 5 mg PO DAILY #90 tabs 11/09/24 hydrochlorothiazide 12.5 mg tablet 12.5 mg PO DAILY #90 tabs 11/19/24 aspirin 81 mg tablet,delayed 81 mg PO DAILY #90 tabs 12/13/24 release atorvastatin 80 mg tablet (Lipitor) 80 mg PO BEDTIME #90 tabs 12/13/24 ezetimibe 10 mg tablet 10 mg PO DAILY #90 tabs 12/13/24 lisinopril 20 mg tablet 20 mg PO DAILY #90 tabs 12/13/24 allopurinol 100 mg tablet 100 mg PO DAILY 90 days #90 tabs 12/20/24 famotidine 40 mg tablet 40 mg PO BEDTIME PRN heartburn #90 01/27/25 tabs pantoprazole 20 mg tablet,delayed 20 mg PO DAILY #90 tabs 01/27/25 release doxycycline hyclate 100 mg tablet 100 mg PO BID #14 tabs 02/03/25 pyridoxine (vitamin B6) 100 mg 100 mg PO DAILY 90 days #90 tabs 02/07/25 tablet Lactobacillus acidophilus 100 mg 10,000 mmu cells PO BID #60 caps 06/08/25 (1 billion cell) capsule isosorbide mononitrate 120 mg 120 mg PO DAILY #30 tabs 06/14/25 tablet,extended release 24 hr bacitracin 500 unit/gram topical 1 appl topical TID #14 grams 06/29/25 ointment cefuroxime axetil 500 mg tablet 500 mg PO BID #10 tabs 06/29/25 Allergies Allergy/AdvReac Type Severity Reaction Status Date / Time penicillin G (PENICILLIN G) Allergy Severe DIFFICULTY Verified 06/29/25 17:16 BREATHING semaglutide (From Ozempic) AdvReac Severe Stomach Verified 06/29/25 17:16 Upset Review of Systems Review of Systems: Yes all other systems are reviewed and are negative [facility] Past Medical History Medical History Hiatal hernia Odynophagia Pain of right clavicle Constipation Polyarticular osteoarthritis Tubular adenoma of colon Delgado esophagus Morbid obesity Hidradenitis suppurativa CAD (coronary artery disease) Subsequent non-ST elevation myocardial infarction (NSTEMI) within 4 weeks of initial infarction Non-ST elevation CA (NSTEMI) YAMILETH on CPAP Hyperlipidemia PTSD (post-traumatic stress disorder) Fatty liver Smoker Depression Obesity Leukocytosis Frequent UTI Asthma Mass of throat Chronic pain Kidney stone Migraine HTN (hypertension) Surgical History History of esophagogastroduodenoscopy (EGD) H/O excision of mass (06/28/24) Hx of cystoscopy Stented coronary artery History of heart artery stent History of lumpectomy of left breast (10/22/21) History of lithotripsy History of endometrial ablation Hx of colonoscopy History of breast lump/mass excision History of tonsillectomy H/O: hysterectomy Family History Family History Father Hypertension Mother Hypertension Osteoporosis Hx of bilateral cataract extraction Paternal Grandmother Diabetes Sister Asthma Maternal Uncle Throat cancer Maternal Aunt Ovarian cancer Breast cancer Social History Social History Household Members: Family Housing: Apartment Are you a primary behavioral health care manager to a significant other at home: No Do you presently have visiting nurse or other home services: No Alcohol intake: never Comment: pt refusing alarms Patient Tobacco Use Status: Current everyday Tobacco user Tobacco use type: Cigarette Cigarette Packs Per Day: 0.5 Cigarettes Per Day: 10 Years Smoked: 30 e-Cigarette/Vaping Use: Never Used Second Hand Smoke Exposure: No Advance Directives Date on File: 10/28/22 service: No Current occupational status: unemployed and retired Physical Exam ED Vital Signs: Vital Signs - 24 hr 06/29/25 17:12 06/29/25 19:10 06/29/25 21:51 Temperature 97.6 F 97.7 F 97.6 F Pulse Rate 84 70 87 Respiratory Rate 18 18 18 Blood Pressure 140/88 H 153/75 H 136/64 Pulse Oximetry 98 95 95 Oxygen Delivery Method Room Air Room Air Room Air 06/29/25 23:58 Temperature 97.6 F Pulse Rate 87 Respiratory Rate 18 Blood Pressure 136/64 Pulse Oximetry 95 Oxygen Delivery Method Room Air BMI result Body Mass Index 49.7 Const Other: The patient is an extremely pleasant 50-year-old. She looks somewhat chronically ill but she does not seem acutely ill. She has a very positive demeanor. HENMT Other: The face is symmetrical. Mucous membranes moist. Eyes Other: Pupils are round equal, conjunctivae are clear, extraocular movements intact. Visual acuity was 20/50 in each eye tested separately. Neck Neck: Yes normal visual inspection and Yes no lymphadenopathy Chest Other: the patient had an area of swelling and tenderness and fluctuance under the right breast that was about 2 cm across. Resp Effort & Inspection: normal respiratory effort Auscultation: clear to auscultation bilaterally Cardio Rate: regular rate Rhythm: regular rhythm Heart sounds: S1 normal heart sound present and S2 normal heart sound present GI Other: Some mild left-sided abdominal tenderness Skin Other: the patient has an area of swelling, tenderness, and fluctuance to the skin under the right breast. Neuro Other: The patient is awake and alert. She has a very cheerful and positive demeanor. Cranial nerves are intact. She moves her extremities normally and appropriately. Extrem Other: There is no calf swelling or tenderness. No asymmetry. No peripheral edema. Course Course Course Narrative: This is a Rapid Medical Examination (RME) performed by Mckay Barr PA-C in triage. Full HPI, ROS, assessment and treatment plan per primary provider in the Main ED. Hx: 50 yo F here w/ complaints of 8/10 abdominal pain, rectal bleeding and blurred vision since yesterday. seen here yesterday for syncope - discharged home. states she was having the rectal bleeding while here yesterday. patient's story is very hard to follow. Plan: labs Medications Administered Discontinued Medications Generic Name Dose Route Start Last Admin Trade Name Freq PRN Reason Stop Dose Admin Cefuroxime Axetil 500 mg 06/29/25 23:24 06/29/25 23:48 Cefuroxime Axetil 500 Mg Tablet PO 06/29/25 23:25 500 mg ONCE ONE Administration Sodium Chloride 1,000 mls @ 999 mls/hr 06/29/25 18:45 06/29/25 20:06 Ns IV 06/29/25 19:45 Infused .Q1H1M ANDREW Infusion Lactated Ringer's 1,000 mls @ 999 mls/hr 06/29/25 20:00 06/29/25 21:11 Lr IV 06/29/25 21:00 Infused .Q1H1M ANDREW Infusion Lactated Ringer's 1,000 mls @ 999 mls/hr 06/29/25 22:30 06/29/25 23:40 Lr IV 06/29/25 23:30 Infused .Q1H1M ANDREW Infusion Iohexol 100 ml 06/29/25 19:02 06/29/25 19:03 Iohexol 350 Mg/Ml 100 Ml Infus..Btl IV 06/29/25 19:03 85 ml ONCE ONE Administration Lidocaine HCl 10 ml 06/29/25 22:42 06/29/25 23:23 Lidocaine Hcl 1 % Mpf 5 Ml Vial INFILTRATI 06/29/25 22:43 10 ml ONCE ONE Administration Procedures Abscess I/D Site: chest ( Under right breast) Side (if applicable): right Local Anesthetic: lidocaine 1% Amount of anesthesia used (mL): 5 Technique: incised with blade Amount of fluid expressed (mL): 8 Sent for culture/gram staining?: No Irrigation: No Packing used?: iodoform Medical Decision Making Medical Decision Making [facility] Narrative: The patient is a 50-year-old woman who has a history of vascular disease including coronary disease. She has a history of an CA and a stent. Yesterday she was scheduled to have an outpatient barium swallow but she had a syncopal episode before the study was done. This occurred in the hospital here at [place] [facility] and she was sent to the emergency room for evaluation of her syncope. She was discharged from the emergency room. She says that since that time she had left-sided abdominal pain and then also developed some bloody stools that were jelly like in appearance. She comes to the emergency room today because of left-sided abdominal pain and because of these bloody stools. Additional complaints include some pain under her right breast that seems to be a small soft tissue abscess that is quite superficial. Also she said that she was having blurriness to her vision, particularly her distance vision. The patient had a CT scan of the abdomen and pelvis that shows colitis from the midtransverse colon distal to the rectum. Her labs are fairly unremarkable. She is afebrile. She does not have a significant white count or CRP elevation. She was given IV fluids while she was in the emergency room. She did not have any ongoing stools of any kind. She felt completely better after IV hydration. Her abdominal pain resolved. With regard to her abdominal symptoms and her bloody stools I think this sounds like a fairly classic case of ischemic colitis. The patient is a 50-year-old with vascular disease. Yesterday she had some kind of a syncopal episode that I suspect was probably an orthostatic phenomenon. I suspect that she had some transient hypotension and this may have precipitated an episode of ischemic colitis associated with some jelly like bloody stools. She has improved in the emergency room with hydration. She did not wish to be hospitalized. She has multiple animals at home that she wants to care for. She had no abdominal pain. No fever. I reviewed the case with Dr. Church of Gastroenterology. We agreed that since this case seems to be a fairly classic case of ischemic colitis that the patient may be discharged without specific treatment aside from a an instructions to stay well hydrated. No antibiotics indicated. In addition to her abdominal symptoms entirely resolving with treatment her complaint of some visual fogginess, which seemed very nonspecific initially, resolved. She had no ongoing visual symptoms. She did however still have what seems to be a soft tissue skin abscess under the right breast. I performed an incision drainage procedure and released a fair amount of pus. The abscess cavity was packed with a small amount of iodoform gauze. She was placed on cefuroxime. She should follow up with the General surgery office. Lab Data 06/29/25 17:06/29/25 17:29 Labs: Lab Results 06/29/25 06/29/25 Range/Units 17: 18:18 WBC 11.8 H (4.8-10.8) X10*3/uL RBC 4.53 (4.20-5.50) X10*6/uL Hgb 14.1 (12.0-16.0) g/dl Hct 43.0 (37.0-47.0) % MCV 94.9 (80.0-98.0) fL MCH 31.1 (27.0-33.0) pg MCHC 32.8 (31.0-35.0) g/dl RDW 14.1 (11.0-16.0) % Plt Count 265 (160-400) X10*3/uL MPV 9.5 (9.4-12.3) fL Immature Gran % (Auto) 0.4 (0.0-0.4) % Neut % (Auto) 58.4 (45-73) % Lymph % (Auto) 31.4 (20-40) % [place] % (Auto) 7.4 (2-11) % Eos % (Auto) 2.0 (0-4) % Baso % (Auto) 0.4 (0-2) % Lymph # (Auto) 3.7 (1.2-4.9) X10*3/uL [place] # (Auto) 0.9 (0.1-1.2) X10*3/uL Eos # (Auto) 0.2 (0.0-0.4) X10*3/uL Baso # (Auto) 0.1 (0.0-0.2) X10*3/uL Abs Immat Gran (auto) 0.05 H (0.00-0.03) X10*3/uL Absolute Neuts (auto) 6.9 (2.0-8.3) x10*3/uL Absolute Nucleated RBC 0.000 (0.0-0.012) X10*3/uL Nucleated RBC % (auto) 0.0 (0.0-0.2) /100WBC Sodium 142 (135-145) mmol/L Potassium 3.8 (3.3-5.1) mmol/L Chloride 110 H (96-108) mmol/L Carbon Dioxide 27 (22-29) mmol/L Anion Gap 9 L (12-20) BUN 17 H (9-16) mg/dL Creatinine 1.17 (0.5-1.4) mg/dL Estim Creat Clear Calc 89.6 Estimated GFR 49 Random Glucose 100 (60-115) mg/dL Calcium 9.5 (8.4-10.2) mg/dL Magnesium 2.0 (1.6-2.6) mg/dL Total Bilirubin 0.6 (0.0-1.0) mg/dL AST 24 (5-31) U/L ALT 22 (0-31) U/L Alkaline Phosphatase 110 (39-117) U/L C-Reactive Protein 3.29 H (< or = 0.50) mg/dL Total Protein 7.3 (6.5-8.0) g/dL Albumin 3.8 (3.5-5.0) g/dL Lipase 11 (8-78) U/L Urine Color Dark Yellow Urine Appearance Clear Urine pH 6.0 (5.0-9.0) Ur Specific [place] 1.025 (1.005-1.025) Urine Protein 30 (1+) H (Neg-Trace) mg/dL Urine Glucose (UA) Negative (Negative) mg/dL Urine Ketones Trace (Negative) mg/dL Urine Blood Negative (Negative) Urine Nitrite Negative (Negative) Ur Leukocyte Esterase Trace H (Negative) Urine RBC 0-2 (0-2) /HPF Urine WBC 0-5 (0-5) /HPF Ur Squamous Epith Cells 3-5 (0-2) /HPF Urine Bacteria Trace (None Seen) Hyaline Casts 6-10 (0-2) /LPF Discharge Plan Discharge Clinical Impression: Acute ischemic colitis, Abscess of right breast Patient Disposition: Home, Self-Care Instructions: Ischemic Colitis (ED) Additional Instructions: I think that the abdominal pain and the bloody stool that you had was from a condition known as ischemic colitis. This is usually a self-limited condition. You seemed to have gotten considerably better. I anticipate you will continue to improve. You may still have some bloody looking stools but I think they will resolve on their own in 1-2 days. Please drink a lot of fluids and keep yourself well hydrated. With regard to the abscess in your right breast please take the antibiotic prescribed 2 times a day. Also, please call the General surgery office in the morning to see if they can get you in on Friday for a recheck. If you are seen in the office on Friday they will likely remove the packing that was put in the abscess. If you are unable to get an appointment on Friday please plan on pulling out the packing yourself on Friday. After that you may apply the bacitracin prescribed 3 times a day and keep the area clean and dry. Please finish the antibiotics. Please make sure you follow up with the General surgery office even if it is next week. Also follow up with your regular doctor. Return to the emergency room if you are significantly worse. Prescriptions: New cefuroxime axetil 500 mg tablet 500 mg PO BID Qty: 10 0RF bacitracin 500 unit/gram ointment 1 appl topical TID Qty: 14 0RF No Action hydrochlorothiazide 12.5 mg tablet 12.5 mg PO DAILY Qty: 90 4RF allopurinol 100 mg tablet 100 mg PO DAILY 90 Days Qty: 90 1RF albuterol sulfate [Ventolin HFA] 90 mcg/actuation HFA aerosol inhaler 2 puff PO Q4-6H PRN (Reason: Wheezing) fluticasone propionate 50 mcg/actuation spray,suspension 2 spray intranasal DAILY metronidazole 0.75 % gel 1 appl topical DAILY PRN (Reason: Rash) clopidogrel 75 mg tablet 75 mg PO DAILY hydroquinone 4 % cream 1 appl topical BID benzoyl peroxide 10 % cleanser 1 appl topical DAILY emtricitabine-tenofovir (TDF) 200-300 mg tablet 1 tab PO DAILY econazole nitrate 1 % cream 1 appl topical BID amlodipine [Norvasc] 5 mg tablet 5 mg PO DAILY Qty: 90 0RF topiramate 50 mg tablet 50 mg PO BID (DME) blood pressure test kit-large Kit See Rx Instructions .ROUTE DIRECTED Qty: 1 Rx Instructions: As directed tramadol 50 mg tablet 50 mg PO Q8H PRN (Reason: severe pain) cholecalciferol (vitamin D3) 50 mcg (2,000 unit) capsule 50 mcg PO DAILY metoprolol succinate 50 mg tablet extended release 24 hr 50 mg PO DAILY fluticasone propionate 110 mcg/actuation HFA aerosol inhaler 2 puff inhalation BID nitroglycerin 0.4 mg tablet, sublingual 0.4 mg sublingual Q5M PRN (Reason: Chest Pain) Rx Instructions: do not exceed 3 doses per episode atorvastatin [Lipitor] 80 mg tablet 80 mg PO BEDTIME Qty: 90 3RF ezetimibe 10 mg tablet 10 mg PO DAILY Qty: 90 3RF aspirin 81 mg tablet,delayed release (DR/EC) 81 mg PO DAILY Qty: 90 3RF lisinopril 20 mg tablet 20 mg PO DAILY Qty: 90 3RF Rx Instructions: dose reduced pyridoxine (vitamin B6) 100 mg tablet 100 mg PO DAILY 90 Days Qty: 90 3RF pantoprazole 20 mg tablet,delayed release (DR/EC) 20 mg PO DAILY Qty: 90 1RF Rx Instructions: take one tablet daily. Best taken 30 minutes before a meal famotidine 40 mg tablet 40 mg PO BEDTIME PRN (Reason: heartburn) Qty: 90 0RF Rx Instructions: Take one tablet as needed at bedtime for breakthrough heartburn Lactobacillus acidophilus 100 mg (1 billion cell) capsule 10,000 mmu cells PO BID Qty: 60 0RF Rx Instructions: Take once tablet twice daily until complete albuterol sulfate 2.5 mg /3 mL (0.083 %) solution for nebulization 2.5 mg inhalation Q4-6H PRN (Reason: Wheezing) isosorbide mononitrate 120 mg tablet extended release 24 hr 120 mg PO DAILY Qty: 30 5RF Zepbound 5 mg/0.5 mL pen injector subcut QWEEK doxycycline hyclate 100 mg tablet 100 mg PO BID Qty: 14 0RF Referrals: [facility] [Provider Group, General Surgery] Carmen Bertrand DO [Primary Care Provider, Internal Medicine] Interventions: ED Discharge Assessment Last Done: 06/29/25 23:58 Discharge Date/Time: 06/29/25 23:58 Print Language: Yakut
[2025-06-29 17:34] LABS: MANUAL DIFF FLAG NO
[2025-06-29 17:36] LABS: Hematocrit 43.0 % (37.0-47.0); Hemoglobin 14.1 g/dl (12.0-16.0); Imm Gran Abs Auto 0.05 X10*3/uL (0.00-0.03); Imm Gran Pct Auto 0.4 % (0.0-0.4); Lymphocytes Absolute Auto 3.7 X10*3/uL (1.2-4.9); Mean Corpuscular HGB Conc 32.8 g/dl (31.0-35.0); Mean Corpuscular Hemoglobin 31.1 pg (27.0-33.0); Mean Corpuscular Volume 94.9 fL (80.0-98.0); NRBC Abs Auto 0.000 X10*3/uL (0.0-0.012); NRBC Pct Auto 0.0 /100WBC (0.0-0.2); Platelet Count 265 X10*3/uL (160-400); Red Blood Count 4.53 X10*6/uL (4.20-5.50); White Blood Count 11.8 X10*3/uL (4.8-10.8)
[2025-06-29 17:52] LABS: Alanine Aminotransferase 22 U/L (0-31); Albumin Level 3.8 g/dL (3.5-5.0); Alkaline Phosphatase 110 U/L (39-117); Anion Gap 9 (12-20); Aspartate Amino Transferase 24 U/L (5-31); Blood Urea Nitrogen 17 mg/dL (9-16); Calcium 9.5 mg/dL (8.4-10.2); Carbon Dioxide 27 mmol/L (22-29); Chloride 110 mmol/L (96-108); Creatinine Clr Calc Pharmacy 89.6; Estimated Glomerular Filt Rate 49; Lipase 11 U/L (8-78); Magnesium 2.0 mg/dL (1.6-2.6); Potassium 3.8 mmol/L (3.3-5.1); Sodium 142 mmol/L (135-145); Total Protein 7.3 g/dL (6.5-8.0)
[2025-06-29 18:27] LABS: Appearance Urine Clear; Glucose Urine UA Negative (Negative); PH 6.0 (5.0-9.0); Specific Gravity - Urine 1.025 (1.005-1.025); UMIC TRIGGER UACC YES
[2025-06-29] MEDS: iohexoL 350 MG/ML 100 ML INFUS..BTL IV (19:03)
--- NOTE | 2025-06-29 19:09 | PC.NURSE ---
20 g IV right forearm
[2025-06-29 19:10] VITALS: BP 153/75; PULSE 70; RESP 18; TEMP 36.5; O2SAT 95
--- OUTSIDE RECORDS SUMMARY | 2025-06-29 19:10 | XMS_ITS | Encounter Summary ---
Author Organization [employer] Address [address] [facility] 7 [place] [address] [address] Team Providers Care Lane Attendant Name Role Phone Carmen Bertrand DO Primary Care Provider + [phone] Reason for Visit * Reason Comments Med Refill Encounter Details Date Type Department Care Team ([facility] st Contact Info) Description 07/22/2023 Refill [facility] [address] [place], [place] [phone] Carmen Bertrand DO [address] [place] [address] Hyperlipidemia, unspecified hyperlipidemia type Social History Tobacco [...] 2:00 PM EST Clinical Support [facility] MEDICINE [address] [place] [address] Jessica Conway RN documented as of this encounter Visit Diagnoses Diagnosis Hyperlipidemia, unspecified hyperlipidemia type documented in this encounter Additional Health Concerns Assessment Noted Time PHQ-9 Depression Total Score: 21 023 11:26 AM EST documented as of this encounter Care Teams Lane Attendant Relationship Specialty Start Date End Date Carmen Bertrand DO [address] [place] [address] PCP - General Family Medicine 08/18/18 documented as of this encounter
--- OUTSIDE RECORDS SUMMARY | 2025-06-29 19:10 | XMS_ITS | Encounter Summary ---
Author Organization [employer] Address [address] [place] [address] [address] [place] [address] Care Team Providers Care Software Sales Name Role Phone Carmen Bertrand DO Primary Care Provider + [phone] Reason for Visit * Reason Comments Med Refill Encounter Details Date Type Department Care Team ([facility] st Contact Info) Description 11/20/2022 Refill [facility] MED[facility]INE [address] [place], [place] [phone] Carmen Bertrand DO [address] [place], [place] [phone] Morbid obesity with body mass index (BMI) [...] Description 09/07/2025 2:00 PM EST Clinical Support [facility] [address] [place] [address] Jessica Conway, RN documented as of this encounter Visit Diagnoses Diagnosis Morbid obesity with body mass index (BMI) of 50.0 to 59.9 in adult (HCC) documented in this encounter Additional Health Concerns Assessment Noted Time PHQ-9 Depression Total Score: 16 023 12:22 PM EST documented as of this encounter Care Teams Software Sales Relationship Specialty Start Date End Date Carmen Bertrand DO [address] [place] [address] PCP - General Family Medicine 08/18/18 documented as of this encounter
--- OUTSIDE RECORDS SUMMARY | 2025-06-29 19:10 | XMS_ITS | Encounter Summary ---
Author Organization [employer] Address [address] [place] [address] [place] [address] Care Team Providers Care Race Engine Builder Name Role Phone Carmen Bertrand DO Primary Care Provider + [phone] Reason for Visit * Reason Onset Date Comments Hospital Follow-up 11/12/2024 Encounter Details Date Type Department Care Team ([facility] Contact Info) Description 11/12/2024 Telephone [facility] MED[facility]INE [address] [place] [address] Carmen Bertrand DO [address] [place], [place] [phone] Hospital Follow-up Social History Tobacco Use Types [...] from pt requesting a HDF appt. Hospital: [facility] Date of admission: 11/07/2024 Discharge date: 11/12/2024 Diagnosed: heart attack *Send message to [place] Clinical Care Coordinators documented in this encounter Plan of Treatment Upcoming Encounters Date Type Department Care Team (Late st Contact Info) Description 09/07/2025 2:00 PM EST Clinical Support [facility] [address] [place] [address] Jessica Conway, RULA documented as of this encounter Visit Diagnoses Not on filedocumented in this encounter Additional Health Concerns Assessment Noted Time PHQ-9 Depression Total Score: 22 024 11:00 AM EDT documented as of this encounter Care Teams Race Engine Builder Relationship Specialty Start Date End Date Carmen Bertrand DO [address] [place] [address] PCP - General Family Medicine 08/18/18 documented as of this encounter
--- OUTSIDE RECORDS SUMMARY | 2025-06-29 19:10 | XMS_ITS | Clinical Summary ---
Author Organization [employer] Address [address] [place] [address] 7 [place] [address] Care Team Providers Care Trail Maintenance Worker Name Role Phone RajeevCarmen jones Primary Care Provider + [phone] Allergies Active Allergy Reactions Criticality Noted Date [...] day. Active ergocalciferol (Vitamin D2) 1.25 MG (40193 UT) capsule Take 1 capsule (1.25 mg) [...] BMI of 50.0-59.9, adult (CMS/HCC) ([facility]) Inject 10 mg under the [...] Morbid obesity with BMI of 50.0-59.9, adult ([facility] /[facility]) 06/07/2025 Long-term current use of [...] Date Coronary arteriosclerosis 02/21/2023 BMI 50.0-59.9, adult ([facility]) 09/19/2022 06/07/2025 Class 3 severe [...] Encounters Date Type Department Care Team Description 06/29/2025 Orders Only GENERIC EXTERNAL DATA DEPARTMENT Provider, Generic External Data 06/29/2025 Telephone [facility] [address] [place] [address] Carmen Bertrand DO Nurse Triage 06/29/2025 Telephone [facility] [address] [place] [address] Carmen Bertrand DO ER Follow-up 06/08/2025 Refill [facility] [address] [place] [address] Catracho Barton MD Chronic pain of both knees 06/07/2025 Orders Only [facility] [address] [place] [phone] Carmen Bertrand DO 06/06/2025 Refill [facility] [place] [place] [address] Carmen Bertrand DO Chronic low back pain, unspecified back pain laterality, unspecified whether sciatica present 06/01/2025 2:00 PM EDT Clinical Support [facility] [place] [address] Jessica Conway RN Long-term current use of opiate analgesic (Primary Dx) 06/01/2025 Travel 06/01/2025 Refill [facility] [place] [address] Carmen Bertrand DO Chronic low back pain, unspecified back pain laterality, unspecified whether sciatica present 05/31/[address] [address] Carmen Bertrand DO telephone call; Prior Authorization ([facility] [employer] Form: Zepbound) 05/10/2025 Telephone [facility] [place] [address] Carmen Bertrand DO Prior Authorization ([facility] PA: Marimar) 05/10/2025 Telephone [facility] [place] [address] Carmen Bertrand DO Med Refill 05/10/2025 Refill [facility] [place] [address] Carmen Bertrand DO Chronic low back pain, unspecified back pain laterality, unspecified whether sciatica present 04/27/2025 Refill [facility] [place] [address] Carmen Bertrand DO Melasma; Nonintractable headache, unspecified chronicity pattern, unspecified headache type 04/11/2025 Refill [facility] [place] [address] Carmen Bertrand DO Chronic low back pain, unspecified back pain laterality, unspecified whether sciatica present 04/05/2025 Orders Only GENERIC EXTERNAL DATA DEPARTMENT Provider, Generic External Data 04/04/2025 Refill [facility] [place] [address] Carmen Bertrand DO Hypertension, unspecified type; Chronic low back pain, unspecified back pain laterality, unspecified whether sciatica present 04/04/2025 Refill [facility] [address] [place] [address] Ирина Mckeon MD Hypertension, unspecified type from [...] Description 09/07/2025 2:00 PM EST Clinical Support [facility] [address] [place] [address] Jessica Conway, RN Health Maintenance Due Date [...] Procedure Name Priority Date/Time Associated Diagnosis Comments URINALYSIS, COMPLETE, WITH REFLEX TO CULTURE Routine 06/29/2025 6:18 PM EST LIPASE Routine 06/29/2025 5:29 PM EST MAGNESIUM Routine 06/29/2025 5:29 PM EST COMPREHENSIVE METABOLIC PANEL Routine 06/29/2025 5:29 PM EST CBC WITH AUTO DIFFERENTIAL Routine 06/29/2025 5:29 PM EST BI MAMMOGRAM SCREENING TOMOSYNTHESIS BILATERAL Routine 06/07/2025 [...] of left foot Healthcare maintenance HIV ANTIBODY/ANTIGEN ([facility]) Routine 02/21/2023 2:35 PM EDT from Last 3 Months or Most Recently Relevant to Health Maintenance Results * (ABNORMAL) Urinalysis, Complete, with Reflex to Culture (06/29/2025 6:18 PM EST) Color Urine Dark Yellow [facility] Appearance Urine Clear [facility] PH 6.0 5.0 - 9.0 [facility] Glucose Urine UA Negative Negative mg/dL [facility] Urine Blood Negative Negative [facility] Specific [place] - Urine 1.025 1.005 - 1.025 [facility] Urine Protein 30 (1+)(A) Neg-Trace mg/dL [facility] Urine Ketones Trace Negative mg/dL [facility] Nitrite Urine Negative Negative [facility] Leukocyte Esterase Urine Trace(A) Negative [facility] RBC Urine 0-2 0 - 2 /HPF [facility] Urine WBC 0-5 0 - 5 /HPF [facility] Urine Squamous Epithelial Cell 3-5 0 - 2 /HPF [facility] Urine Bacteria Trace None Seen [facility] Hyaline Casts, Urine 6-10 0 - 2 /LPF [facility] 06/29/2025 6:18 PM EST 06/29/2025 6:21 PM EST Narrative [facility] - 06/29/2025 6:38 PM EST Urine, Clean Catch us Generic External Data Provider LAB URINE ORDERAB LES Final Result [facility] [address] [place] [address] [phone] * (ABNORMAL) CBC auto differential (06/29/2025 5:29 PM EST) Only the most recent of2 resultswithin the time period is included. White Blood Count 11.8(H) 4.8 - 10.8 X10*3/uL [facility] Red Blood Count 4.53 4.20 - 5.50 X10*6/uL [facility] Hemoglobin 14.1 12.0 - 16.0 g/dl [facility] Hematocrit 43.0 37.0 - 47.0 % [facility] Mean Corpuscular Volume 94.9 80.0 - 98.0 fL [facility] Mean Corpuscular Hemoglobin 31.1 27.0 - 33.0 pg [facility] Mean Corpuscular HGB Conc 32.8 31.0 - 35.0 g/dl [facility] Red Cell Distribution Width 14.1 11.0 - 16.0 % [facility] Platelet Count 265 160 - 400 X10*3/uL [facility] Mean Platelet Volume 9.5 9.4 - 12.3 fL [facility] Neutrophils Percent Auto 58.4 45 - 73 % [facility] Imm Gran Pct Auto 0.4 0.0 - 0.4 % [facility] Lymphocytes Percent Auto 31.4 20 - 40 % [facility] Monocytes Percent Auto 7.4 2 - 11 % [facility] Eosinophils Percent Auto 2.0 0 - 4 % [facility] Basophils Percent Auto 0.4 0 - 2 % [facility] NRBC Pct Auto 0.0 0.0 - 0.2 /100WBC [facility] Neutrophils Absolute Auto 6.9 2.0 - 8.3 x10*3/uL [facility] Imm Gran Abs Auto 0.05(H) 0.00 - 0.03 X10*3/uL [facility] Lymphocytes Absolute Auto 3.7 1.2 - 4.9 X10*3/uL [facility] Monocytes Absolute Auto 0.9 0.1 - 1.2 X10*3/uL [facility] Eosinophils Absolute Auto 0.2 0.0 - 0.4 X10*3/uL [facility] Basophils Absolute Auto 0.1 0.0 - 0.2 X10*3/uL [facility] NRBC Abs Auto 0.000 0.0 - 0.012 X10*3/uL [facility] 06/29/2025 5:29 PM EST 06/29/2025 5:33 PM EST us Generic External Data Provider LAB BLOOD ORDERAB LES Final Result Performing Organization Address [facility] Co de Phone Number [facility] [address] [place] [phone] * Magnesium (06/29/2025 5:29 PM EST) [facility] Magnesium 2.0 1.6 - 2.6 mg/dL [facility] 06/29/2025 5:29 PM EST 06/29/2025 5:33 PM EST us Generic External Data Provider LAB BLOOD ORDERAB LES Final Result Performing Organization Address [facility] Phone Number [facility] [address] [place] [phone] * Lipase (06/29/2025 5:29 PM EST) [facility] Lipase 11 8 - 78 U/L [facility] 06/29/2025 5:29 PM EST 06/29/2025 5:33 PM EST Generic External Data Provider LAB BLOOD ORDERAB LES Final Result Performing Organization Address [facility] de Phone Number [facility] [address] [place] [phone] * (ABNORMAL) Comprehensive Metabolic Panel (06/29/2025 5:29 PM EST) [facility] Sodium 142 135 - 145 mmol/L [facility] Potassium 3.8 3.3 - 5.1 mmol/L [facility] Chloride 110(H) 96 - 108 mmol/L [facility] Carbon Dioxide 27 22 - 29 mmol/L [facility] Anion Gap 9(L) 12 - 20 [facility] Urea Nitrogen (BUN) 17(H) 9 - 16 mg/dL [facility] Creatinine, Serum 1.17 0.5 - 1.4 mg/dL [facility] Creatinine Clr Calc Pharmacy 89.6 [facility] Comment:Provided height and weight: 172.72 cm,148.2 kg.eGFR (calculated from the MDRD study equation) and eCrCl(calculated from the Cockcroft-Gault equation) are based ondifferent parameters and may not yield comparable results.If eCrCl result is absurd, please check patient'sheight/weight. Estimated Glomerular Filt Rate 49 [facility] Comment:Chronic Kidney Disea se: Estimated GFR < 60 mL/min/1.59v2Ganhah Kidney Disease: Estimated GFR < 15 mL/min/1.73m2 Glucose 100 60 - 115 mg/dL [facility] Calcium 9.5 8.4 - 10.2 mg/dL [facility] Bilirubin, Total 0.6 0.0 - 1.0 mg/dL [facility] Aspartate Amino Transferase 24 5 - 31 U/L [facility] Alanine Aminotransferase 22 0 - 31 U/L [facility] Total Protein 7.3 6.5 - 8.0 g/dL [facility] Albumin Level 3.8 3.5 - 5.0 g/dL [facility] Alkaline Phosphatase 110 39 - 117 U/L [facility] 06/29/2025 5:29 PM EST 06/29/2025 5:33 PM EST us Generic External Data Provider LAB BLOOD ORDERAB LES Final Result [facility] [address] [place] [phone] [phone] * BI Mammogram Screening Tomosynthesis Bilateral (06/07/2025 3:00 PM EDT) Anatomical Region Laterality Modality Breast Bilateral Mammography 06/07/2025 3:00 PM EDT Narrative 06/10/2025 11:46 AM EDT [facility] [address] [place], [place] [address] Mammography Report Signed with Tracy Patient: Blaire Quiroz MR#: [id number] : 1975 Acct:[id number] Age/Sex: 50 / F ADM Date: 06/07/25 Loc: HO.MAMMO Attending Dr: Carmen Bertrand DO Ordering Physician: Carmen Bertrand DO Results: 0I ncomplete- Need Additional Imaging Evaluation Date of Service: 06/07/25 Follow Up: Additional Imagi ng Procedure(s): MM tomosynthesis screening BI Accession Number(s): [id number] cc: Carmen Bertrand DO Reason For Exam: [...] depth retroareolar region on cc view image 09/19. No suspicious calcifications or other abnormal findings. [...] 06/10/25 1143 DD/ 1500 TD/TT: 06/07/25 1530 [employer] Attendant: Procedure Note Donotwalterinterpreter, Image - 06/20/2025 [facility] [address] [place] [address] Mammography Report Signed with Tracy Patient: Blaire Quiroz#: M [id number] : 1975Acct:[id number] Age/Sex: 50 / FADM Date: 06/07/25 Loc: HO.MAMMO Attending Dr: Carmen Bertrand DO Ordering Physician: Carmen Bertrandults: 0I ncomplete- Need Additional Imaging Evaluation Date of Service: 06/07/25Follow Up: Additional Imagi ng Procedure(s): MM tomosynthesis screening BI Accession Number(s): [id number] cc: Carmen Bertrand DO Reason For Exam: [...] 06/10/25 1143 DD/ 99 TD/TT: 06/07/25 1530 Kid Club Attendant: us Carmen Bertrand DO IMG BI PROCEDURES Edited [...] procedure / Unknown 06/01/2025 2:10 PM EDT Narrative Jessica Conway RN - 06/01/2025 2:10 PM EDT UTOX cup Lot#[id number] Exp. 05/24/26 Internal Pass Control us Carmen Bertrand DO POINT OF CARE TEST ENTER/LANEY T ORDERABLES Final Result * High Sensitivity Troponin I (04/05/2025 9:42 AM EDT) Only the most recent of2 resultswithin the time period is included. Pathologist [facility] TROPONIN I HIGH SENSITIVITY <2.7 <3.5 - 17.0 ng/L [facility] Comment:The [employer] high sens itivity Troponin-I results should beused in conjunction with other diagnostic information suchas ECG, clinical observations and information, and patientsymptoms to aid in the diagnosis of MT. 04/05/2025 9:42 AM EDT 04/05/2025 9:44 AM EDT Generic External Data Provider LAB BLOOD ORDERAB LES Final Result [facility] [address] [place] [phone] * XR Chest 2 Views (04/05/2025 6:17 AM EDT) Anatomical Region Laterality Modality Chest Radiographic Alejandrina ging 04/05/2025 6:17 AM EDT Narrative 04/05/2025 6:19 AM EDT [address] [address] XRay Report Signed Patient: Blaire Quiroz MR#: [id number] : 1975 Acct:[id number] Age/Sex: 50 / F ADM Date: 04/05/25 Loc: HO.ED Attending Dr: Ordering Physician: Generic ED Physician Date of Service: 04/05/25 Procedure(s): XR chest 2V Accession Number(s): [id number] cc: Generic ED Physician; Carmen Bertrand DO [...] in OV> 04/05/25617 DD/ 6 TD/TT: 04/05/25616 [employer] Attendant: Procedure Note Donvirginiainterpreter, Image - 04/05/2025 [place] [address] XRay Report Signed Patient: Blaire Quiroz#: M [id number] : 1975Acct:[id number] Age/Sex: 50 / FADM Date: 04/05/25 Loc: HO.ED Attending Dr: Ordering Physician: Nan ED Physician Date of Service: 04/05/25 Procedure(s): XR chest 2V Accession Number(s): [id number] cc: [facility] ED Physician; Carmen Bertrand DO CLINICAL HISTORY: [...] in OV> 04/05/25617 DD/ 6 TD/TT: 04/05/25616 Kid Club Attendant: [facility] External Provider IMG XR PROCEDURES Edited Result - Final * (ABNORMAL) Comprehensive Metabolic Panel, Fasting (04/05/2025 4:34 AM EDT) Sodium 141 135 - 145 mmol/L [facility] Potassium 3.6 3.3 - 5.1 mmol/L [facility] Chloride 109(H) 96 - 108 mmol/L [facility] Carbon Dioxide 22 22 - 29 mmol/L [facility] Anion Gap 14 12 - 20 [facility] Urea Nitrogen (BUN) 16 9 - 16 mg/dL [facility] Creatinine, Serum 0.87 0.5 - 1.4 mg/dL [facility] Creatinine Clr Calc Pharmacy 120.4 [facility] Comment:Provided height and weight: 167.64 cm,154.8 kg.eGFR (calculated from the MDRD study equation) and eCrCl(calculated from the Cockcroft-Gault equation) are based ondifferent parameters and may not yield comparable results.If eCrCl result is absurd, please check patient'sheight/weight. Estimated Glomerular Filt Rate >60 [facility] Comment:Chronic Kidney Disea se: Estimated GFR < 60 mL/min/1.61s9Dqhqan Kidney Disease: Estimated GFR < 15 mL/min/1.73m2 Glucose Fasting 100(H) 60 - 99 mg/dL [facility] Comment:A fasting glucose fr om 100-125 mg/dl is considered impaired(pre-diabetes). Calcium 9.0 8.4 - 10.2 mg/dL [facility] Bilirubin, Total 0.4 0.0 - 1.0 mg/dL [facility] Aspartate Amino Transferase 22 5 - 31 U/L [facility] Alanine Aminotransferase 14 0 - 31 U/L [facility] Total Protein 7.1 6.5 - 8.0 g/dL [facility] Albumin Level 3.8 3.5 - 5.0 g/dL [facility] Alkaline Phosphatase 105 39 - 117 U/L [facility] 04/05/2025 4:34 AM EDT 04/05/2025 4:36 AM EDT us Generic External Data Provider LAB BLOOD ORDERAB LES Final Result [facility] [address] [place] [phone] [phone] * (ABNORMAL) Cologuard?? colon cancer screening (08/31/2024 10:33 AM EST) Cologuard Result Positive( A) Negative 09/07/2024 10:16 AM EST Back[facility] (CLIA #:[id number]) Comment: POSITIVE TEST RESULT. A positive Cologuard [...] (Ashleigh Zhou al, N Engl J Med 2014;370(14):5922-5945.) Cologuard may produce a false negative or false positive result (no colorectal cancer or precancerous polyp present at colonoscopy follow up). A negative Cologuard test result does not guarantee the absence of CRC or advanced adenoma (pre-cancer). The current Cologuard screening interval is every 3 years. ([place] Cancer Society and U.S. Multi-Society Task Force). Cologuard performance data in a 10,000 patient pivotal study using colonoscopy as the reference method can be accessed at the following location: www.Yeelink.com/results. Additional description of the Cologuard test process, warnings and precautions can be found at www.[email or web address] [email or web address].[email or web address]. Stool specimen (specimen) 08/31/2024 10:33 AM EST 09/01/2024 11:06 AM EST Carmen Bertrand DO LAB MOLECULAR DIAGNOSTICS OR DERABLES Final Result [facility] (CLIA #:[id number]) [place] [address] [place] [address], * Hemoglobin A1c (08/24/2024 11:57 AM EST) Hemoglobin A1c 6.0 <6.0 % [facility] Comment:Hemoglobin A1C Refer ence Range Adults: 4.8 - 6.0 % Non diabetic: < 6.0 % Goal: < 7.0 %Additional Action Suggested: > 8.0 %Note: Hemoglobin A1c results are invalid for patients with abnormal amounts of HbF. Blood transfusions may impact the HbA1c concentration in the patient sample. Estimated Average Glucose 126 mg/dL [facility] Comment:eAG = Estimated ave rage glucose which is %A1C expressed asaverage glucose, using the formula of the I6Z-VaybciaEmdwifv Glucose study (ADAG), Diabetes Care, Vol.31,#8,Mar. 2007 Blood Venous blood specimen / Unknown 08/24/2024 11:57 AM EST 08/24/2024 1:03 PM EST Carmen Bertrand DO LAB BLOOD ORDERABLES Final R esult Performing Organization Address City/[facility]/ZIP Co de Phone Number [facility] [address] [place] [phone] * (ABNORMAL) Lipid Panel, Standard (08/24/2024 11:57 AM EST) Triglycerides 82 <150 mg/dL [facility] Comment:Desirable Triglyceri de: less than 150 mg/dLBorderline High Triglyceride 150-199 mg/dLHigh Triglyceride: 200-499 mg/dLVery High Triglyceride: greater than or equal to 5OO mg/dL Cholesterol 136 <200 mg/dL [facility] Comment:Desirable Cholestero l: less than 200 mg/dLBorderline High Cholesterol: 200-239 mg/dLHigh Cholesterol: greater than 239 mg/dL LDL Cholesterol Calculated 81 <100 mg/dL [facility] Comment:Desirable LDL: less than 100 mg/dLNear Optimal/Above Optimal LDL: 110- 129 mg/dLBorderline High LDL: 130-159 mg/dLHigh LDL: 160-189 mg/dLVery High LDL: greater than or equal to 190 mg/dL HDL Cholesterol 39(L) >40 mg/dL [facility] Comment:Desirable HDL: great er than 40 mg/dL Note: This HDL assay may give artificially low results in patients with liver disease. Blood Venous blood specimen / Unknown 08/24/2024 11:57 AM EST 08/24/2024 1:03 PM EST Carmen Bertrand DO LAB BLOOD ORDERABLES Final R Novomer Performing Organization Address [facility]/ZIP Co de Phone Number [facility] [address] [place] [phone] * Hepatitis C Antibody with Reflex to HCV, RNA, Quantitative, Real-Time PCR (04/27/2024 2:02 PM EDT) Hepatitis C Antibody Nonreactive Nonreactive [facility] Comment:Antibodies to HCV no t detected; does not exclude early acuteHCV infection. Blood Venous blood specimen / Unknown 04/27/2024 2:02 PM EDT 04/27/2024 4:01 PM EDT Carmen Bertrand DO LAB BLOOD ORDERABLES Final R esult Performing Organization Address City/[facility]/ZIP Co de Phone Number [facility] [address] [place] [phone] * HIV Ab/Ag ([place]) (02/21/2023 2:35 PM EDT) HIV AB/AG Nonreactive Nonreactive [facility] Comment:HIV-1 p24 Ag and/or HIV-1/HIV-2 Ab not detected.A test result that is nonreactive does not exclude thepossibility of exposure to or infection with HIV-1 and/orHIV-2. Nonreactive results in this assay for individualswith prior exposure to HIV-1 and/or HIV-2 may be due toantigen and antibody levels that are below the limit ofdetection of this assay.The [employer] HIV Ag/Ab Combo assay result andsupplemental assay results should be interpreted inconjunction with the patient's clinical presentation,history and other laboratory results. If the results areinconsistent with clinical evidence, additional testing issuggested to confirm the result. 02/21/2023 2:35 PM EDT 02/21/2023 2:37 PM EDT [facility] External Provider LAB BLO OD ORDERABLES Final Result [facility] [address] [place] [address] [phone] from Last 3 Months or Most Recently Relevant to Health Maintenance Insurance [facility] < [address] [id number] Maintenance Worker Relationship Specialty Start Date End Date Carmen Bertrand DO [address] [place] [phone] PCP - General Family Medicine 08/18/18
--- OUTSIDE RECORDS SUMMARY | 2025-06-29 19:10 | XMS_ITS | Encounter Summary ---
Author Organization [employer] Address [address] [place] [address] [address] [place] [address] Care Team Providers Care Catalogue Maker Name Role Phone Carmen Bertrand DO Primary Care Provider + [phone] Reason for Visit * Reason Comments Med Refill Encounter Details Date Type Department Care Team ([facility] Contact Info) Description 10/18/2022 Refill [facility] MEDICINE [address] [place], [place] [phone] Carmen Bertrand DO [address] [place] [address] Social History Tobacco Use Types Packs/Day Years [...] Upcoming Encounters Date Type Department Care Team ([facility] st Contact Info) Description 09/07/2025 2:00 PM EST Clinical Support [facility] MEDICINE [address] [place] [address] Jessica Conway RN documented as of this encounter Visit Diagnoses Not on filedocumented in this encounter Additional Health Concerns Assessment Noted Time PHQ-9 Depression Total Score: 16 023 12:22 PM EST documented as of this encounter Care Teams Catalogue Maker Relationship Specialty Start Date End Date Carmen Bertrand DO [address] [place] [address] PCP - General Family Medicine 08/18/18 documented as of this encounter
--- OUTSIDE RECORDS SUMMARY | 2025-06-29 19:10 | XMS_ITS | Encounter Summary ---
Author Organization [employer] Address [address] [facility] [address] [place] [address] Care Team Providers Care Supervisor Felling Bucking Name Role Phone Carmen Bertrand DO Primary Care Provider + [phone] Reason for Visit * Reason Comments Med Refill Encounter Details Date Type Department Care Team (Late st Contact Info) Description 03/16/2024 Refill [facility] MED & PEDS [address] [place], [place] [phone] Carmen Bertrand DO [address] [place] [address] Chronic low back pain, unspecified back pain [...] 2:00 PM EST Clinical Support [facility] MEDICINE [address] [place] [address] Jessica Conway, RULA documented as of this encounter Visit Diagnoses Diagnosis Chronic low back pain, unspecified back pain laterality, unspecified whether sciatica present documented in this encounter Additional Health Concerns Assessment Noted Time PHQ-9 Depression Total Score: 21 023 11:26 AM EST documented as of this encounter Care Teams Supervisor Felling Bucking Relationship Specialty Start Date End Date Carmen Bertrand DO [address] [place] [address] PCP - General Family Medicine 08/18/18 documented as of this encounter
--- OUTSIDE RECORDS SUMMARY | 2025-06-29 19:10 | XMS_ITS | Encounter Summary ---
Author Organization [employer] Address [address] [place] [address] [place] [address] Care Team Providers Care Marketing Technology Coordinator Name Role Phone Carmen Bertrand DO Primary Care Provider + [phone] Reason for Visit * Reason Onset Date Comments ER Follow-up 06/29/2025 Encounter Details Date Type Department Care Team ([facility] st Contact Info) Description 06/29/[address] [facility] MEDICINE [address] [place] [address] Carmen Bertrand DO [address] [place], [place] [phone] ER Follow-up Social History Tobacco Use Types Packs/Day [...] encounter Miscellaneous Notes * Telephone Encounter - Kelly Bennett - 06/29/2025 3:05 PM EST Patient calling to report ED visit on : Date: 06/28 Hospital: [facility] Seen for: Dizziness/ almost fainted Symptomatic No *if yes message should go to Triage Patient advised will forward to team nurse for follow up documented in this encounter Plan of Treatment Upcoming Encounters Date Type Department Care Team (Late st Contact Info) Description 09/07/2025 2:00 PM EST Clinical Support [facility] MEDICINE [address] [place] [address] Jessica Conway, RULA documented as of this encounter Visit Diagnoses Not on filedocumented in this encounter Additional Health Concerns Assessment Noted Time PHQ-9 Depression Total Score: 22 024 11:00 AM EDT documented as of this encounter Care Teams Marketing Technology Coordinator Relationship Specialty Start Date End Date Carmen Bertrand DO [address] [place] [address] PCP - General Family Medicine 08/18/18 documented as of this encounter
--- OUTSIDE RECORDS SUMMARY | 2025-06-29 19:10 | XMS_ITS | Encounter Summary ---
Author Organization [employer] Address [address] [place] [address] 7 [place] [address] Care Team Providers Care Snowmaker Name Role Phone Carmen Bertrand DO Primary Care Provider + [phone] Reason for Visit * Reason Comments Med Refill Encounter Details Date Type Department Care Team ([facility] st Contact Info) Description 04/04/2025 Refill [facility] [address] [place], [place] [phone] Carmen Bertrand DO 230 [place], [place] [phone] Hypertension, unspecified type; Chronic low back pain, [...] 2:00 PM EST Clinical Support [facility] [address] [place] [address] Jessica Conway RN documented as of this encounter Visit Diagnoses Diagnosis Hypertension, unspecified type Chronic low back pain, unspecified back pain laterality, unspecified whether sciatica present documented in this encounter Additional Health Concerns Assessment Noted Time PHQ-9 Depression Total Score: 22 024 11:00 AM EDT documented as of this encounter Care Teams Snowmaker Relationship Specialty Start Date End Date Carmen Bertrand DO [address] [place] [address] PCP - General Family Medicine 08/18/18 documented as of this encounter
--- OUTSIDE RECORDS SUMMARY | 2025-06-29 19:10 | XMS_ITS | Encounter Summary ---
Author Organization [employer] Address [address] [place] [address] [place] [address] Care Team Providers Care Clinical Nurse Specialist Name Role Phone Carmen Bertrand DO Primary Care Provider [phone]- [phone] Encounter Details Date Type Department Care Team (Late st Contact Info) Description 09/09/2022 Orders Only [facility] MEDICINE [address] [place] [address] Azul Albrecht LPN Social History Tobacco Use [...] Description 09/07/2025 2:00 PM EST Clinical Support [facility] [address] [place] [address] Jessica Conway, RULA documented as of this encounter Visit Diagnoses Not on filedocumented in this encounter Care Teams Clinical Nurse Specialist Relationship Specialty Start Date End Date Carmen Bertrand DO [address] [place] [address] PCP - General Family Medicine 08/18/18 documented as of this encounter
--- OUTSIDE RECORDS SUMMARY | 2025-06-29 19:10 | XMS_ITS | Encounter Summary ---
Author Organization [employer] Address [address] [facility] 7 [place] [address] Care Team Providers Care Property And Equipment Clerk Name Role Phone Carmen Bertrand DO Primary Care Provider + [phone] Reason for Visit * Reason Comments Med Refill Encounter Details Date Type Department Care Team (Late st Contact Info) Description 05/12/2024 Refill [facility] CHC MED & PEDS [address] [place], [place] [phone] Carmen Bertrand DO 230 [place] [address] Chronic low back pain, unspecified back pain [...] [facility] MEDICINE 230 [place] [address] Jessica Conway RN documented as of this encounter Visit Diagnoses Diagnosis Chronic low back pain, unspecified back pain laterality, unspecified whether sciatica present documented in this encounter Additional Health Concerns Assessment Noted Time PHQ-9 Depression Total Score: 22 024 11:00 AM EDT documented as of this encounter Care Teams Property And Equipment Clerk Relationship Specialty Start Date End Date Carmen Bertrand DO [address] [place] [address] PCP - General Family Medicine 08/18/18 documented as of this encounter
--- OUTSIDE RECORDS SUMMARY | 2025-06-29 19:10 | XMS_ITS | Encounter Summary ---
Author Organization [employer] Address [address] [place] [address] 7 [place] [address] Care Team Providers Care Pile Driver Operator Helper Name Role Phone Elza Carmen Primary Care Provider + [phone] Reason for Visit * Reason Comments Med Refill Encounter Details Date Type Department Care Team ([facility] st Contact Info) Description 03/08/2024 Refill [facility] MEDICINE [address] [place] [address] Rox Sutotn MD 230 [place] [address] Pain Social History Tobacco Use Types Packs/Day [...] Description 09/07/2025 2:00 PM EST Clinical Support [facility] MEDICINE [address] [place] [address] Jessica Conway RN documented as of this encounter Visit Diagnoses Diagnosis Pain Generalized pain documented in this encounter Additional Health Concerns Assessment Noted Time PHQ-9 Depression Total Score: 21 023 11:26 AM EST documented as of this encounter Care Teams Pile Driver Operator Helper Relationship Specialty Start Date End Date Carmen Bertrand DO 230 [place] [address] PCP - General Family Medicine 08/18/18 documented as of this encounter
--- OUTSIDE RECORDS SUMMARY | 2025-06-29 19:10 | XMS_ITS | Encounter Summary ---
Author Organization [employer] Address [address] [place] [address] 7 [place] [address] Care Team Providers Care Manager Branch Name Role Phone Carmen Bertrand DO Primary Care Provider + [phone] Reason for Visit * Reason Onset Date Comments Nurse Triage 06/29/2025 Encounter Details Date Type Department Care Team ([facility] st Contact Info) Description 06/29/2025 Telephone [facility] MEDICINE 230 [place] [address] Carmen Bertrand DO [address] [place] [address] Nurse Triage Social History Tobacco Use Types [...] encounter Miscellaneous Notes * Telephone Encounter - Nai Ortiz RN - 06/29/2025 3:37 PM EST TC placed to pt via [facility] intensive care nurse (ID#[id number]) for triage. Pt reports they were waiting for an appointment at [facility] yesterday and had a sudden pain in their abdomen. Pt reports they felt they urgently needed to have a bowel movement. Pt reports they went to the restroom but began feeling tingling in their fingers and felt they were going to faint. Pt reports they asked for help, and they were brought to the ED for evaluation. Pt reports one episode of vomiting in the ED. Pt reports they used a bedpan as they began to have uncontrollable bowel movements. Pt reports they were discharged from the ED but are still experiencing abdominal pain located on the right-side underneath breast and in the center of their abdomen. Pt denies recent nausea, vomiting, fever, chills, episodes of fainting, chest pain, SOB. Pt states they are having bowel movements with stool that is jelly like consistency with blood and white specs. Pt reports they go to the restroom and have a bowel movement when they experience the abdominal pain. Pt reports pain comes and goes. Pt reports they have to get in the shower to calm down and their pain improves. Pt reports they were not prescribed anything in the ED. Advised pt recommended to return to the ED for further evaluation. Pt reports they will return to [facility] EDtoday. Advised pt to call office when discharged. Pt verbalized understanding and denies questions at this time. Message forwarded to team nurses to status check and schedule ED follow up PRN. ED note from 06/28/25 obtained and placed in medical records bin for scanning. Protocol Used: Abdominal Pain - Female (Adult) Protocol-Based Disposition: Go to ED Now Positive Triage Question: * Blood in bowel movements (Exception: Blood on surface of BM with constipation.) * All higher-acuity triage questions were negative Care Advice Discussed: * Reasons To Call Back - Severe pain lasts over 1 hour - Constant pain lasts over 2 hours - Intermittent pains (comes and goes, cramps) lasts over 48 hours - You are - You become worse * Telephone Encounter - Kelly Bennett - 06/29/2025 3:07 PM EST Symptom: Abdominal Pain - Female - Not Outcome: Talk to a nurse or provider within 15 minutes Reason: Blood in the stool (poop) or vomit The caller accepted this outcome. Contact pt at [phone] Need intensive care nurse documented in this encounter Plan of Treatment Upcoming Encounters Date Type Department Care Team (Late st Contact Info) Description 09/07/2025 2:00 PM EST Clinical Support [facility] MEDICINE [address] [place] [address] Jessica Conway RN documented as of this encounter Visit Diagnoses Not on filedocumented in this encounter Additional Health Concerns Assessment Noted Time PHQ-9 Depression Total Score: 22 024 11:00 AM EDT documented as of this encounter Care Teams Manager Branch Relationship Specialty Start Date End Date Carmen Bertrand DO [address] [place] [address] PCP - General Family Medicine 08/18/18 documented as of this encounter
--- OUTSIDE RECORDS SUMMARY | 2025-06-29 19:10 | XMS_ITS | Encounter Summary ---
Author Organization [employer] Address [address] [place] [address] [place] [address] Care Team Providers Care Account Receivable Associate Name Role Phone Carmen Bertrand DO Primary Care Provider [phone] Encounter Details Date Type Department Care Team (Late st Contact Info) Description 08/13/2022 Orders Only [facility] CHC MED & PEDS [address] [place] [address] Carmen Perez LPN Social History Tobacco Use [...] Description 09/07/2025 2:00 PM EST Clinical Support [facility] MEDICINE [address] [place] [address] Jessica Conway, RN documented as of this encounter Visit Diagnoses Not on filedocumented in this encounter Care Teams Account Receivable Associate Relationship Specialty Start Date End Date Carmen Bertrand DO [address] [place] [address] PCP - General Family Medicine 08/18/18 documented as of this encounter
--- OUTSIDE RECORDS SUMMARY | 2025-06-29 19:10 | XMS_ITS | Encounter Summary ---
Author Organization [employer] Address [address] [place] [address] Care Team Providers Care Business Account Specialist Name Role Phone Carmen Bertrand DO Primary Care Provider + [phone] Reason for Visit * Reason Comments Med Refill Encounter Details Date Type Department Care Team (Late st Contact Info) Description 07/29/2022 Refill [facility] MEDICINE [address] [place], [place] [phone] Carmen Bertrand DO [address] [place] [address] Social History Tobacco Use Types Packs/Day Years [...] Description 09/07/2025 2:00 PM EST Clinical Support [facility] MEDICINE [address] [place] [phone] Jessica Conway RN documented as of this encounter Visit Diagnoses Not on filedocumented in this encounter Care Teams Business Account Specialist Relationship Specialty Start Date End Date Carmen Bertrand DO [address] [place], [place] [phone] PCP - General Family Medicine 08/18/18 documented as of this encounter
--- OUTSIDE RECORDS SUMMARY | 2025-06-29 19:10 | XMS_ITS | Encounter Summary ---
Author Organization [employer] Address [address] [place] [address] [place] [address] Care Team Providers Care Machine Splitter Name Role Phone Carmen Bertrand DO Primary Care Provider [phone] Encounter Details Date Type Department Care Team (Late st Contact Info) Description 09/09/2022 Orders Only [facility] CHC MED & PEDS [address] [place] [address] Carmen Perez LPN Social History Tobacco Use [...] Description 09/07/2025 2:00 PM EST Clinical Support [facility] MEDICINE [address] [place] [address] Jessica Conway, RN documented as of this encounter Visit Diagnoses Not on filedocumented in this encounter Care Teams Machine Splitter Relationship Specialty Start Date End Date Carmen Bertrand DO [address] [place] [address] PCP - General Family Medicine 08/18/18 documented as of this encounter
--- OUTSIDE RECORDS SUMMARY | 2025-06-29 19:10 | XMS_ITS | Encounter Summary ---
Author Organization [employer] Address [address] [place] [address] 7 [place] [address] Care Team Providers Care Fiber Optic Assembler Name Role Phone RajeevCarmen jones Primary Care Provider + [phone] Reason for Visit * Reason Comments Med Refill Encounter Details Date Type Department Care Team ([facility] st Contact Info) Description 02/03/2023 Refill [facility] MEDICINE 230 [place] [address] Leticia Ramirez MD [address] [place], [place] [phone] Nonintractable headache, unspecified chronicity pattern, unspecified headache [...] Description 09/07/2025 2:00 PM EST Clinical Support [facility] [place] [address] Jessica Conway RN documented as of this encounter Visit Diagnoses Diagnosis Nonintractable headache, unspecified chronicity pattern, unspecified headache type documented in this encounter Additional Health Concerns Assessment Noted Time PHQ-9 Depression Total Score: 16 023 12:22 PM EST documented as of this encounter Care Teams Fiber Optic Assembler Relationship Specialty Start Date End Date Carmen Bertrand DO [address] [place] [address] PCP - General Family Medicine 08/18/18 documented as of this encounter
--- OUTSIDE RECORDS SUMMARY | 2025-06-29 19:10 | XMS_ITS | Encounter Summary ---
Author Organization [employer] Address [address] [place] [address] 7 [place] [address] Care Team Providers Care Building Code Inspector Name Role Phone Carmen Bertrand DO Primary Care Provider + [phone] Reason for Visit * Reason Comments Med Refill Encounter Details Date Type Department Care Team ([facility] st Contact Info) Description 02/24/2024 Refill [facility] MEDICINE [address] [place] [address] Carmen Bertrand DO [address] [place] [address] Social History Tobacco Use Types Packs/Day Years [...] 09/07/2025 2:00 PM EST Clinical Support [facility] MEDICINE [address] [place] [address] Jessica Conway RN documented as of this encounter Visit Diagnoses Not on filedocumented in this encounter Additional Health Concerns Assessment Noted Time PHQ-9 Depression Total Score: 21 023 11:26 AM EST documented as of this encounter Care Teams Building Code Inspector Relationship Specialty Start Date End Date Carmen Bertrand DO [address] [place] [address] PCP - General Family Medicine 08/18/18 documented as of this encounter
--- OUTSIDE RECORDS SUMMARY | 2025-06-29 19:10 | XMS_ITS | Encounter Summary ---
Author Organization [employer] Address [address] [place] [address] 7 [place] [address] Care Team Providers Care Manager Cargo Name Role Phone Elza Carmen Primary Care Provider + [phone] Reason for Visit * Reason Comments Med Refill Encounter Details Date Type Department Care Team ([facility] st Contact Info) Description 01/13/2024 Refill [facility] MEDICINE [address] [place] [address] Rox Sutton MD 230 [place] [address] Pain Social History Tobacco Use Types Packs/Day [...] [facility] [address] [place] [address] Jessica Conway RN documented as of this encounter Visit Diagnoses Diagnosis Pain Generalized pain documented in this encounter Additional Health Concerns Assessment Noted Time PHQ-9 Depression Total Score: 21 023 11:26 AM EST documented as of this encounter Care Teams Manager Cargo Relationship Specialty Start Date End Date Carmen Bertrand DO [address] [place] [address] PCP - General Family Medicine 08/18/18 documented as of this encounter
--- OUTSIDE RECORDS SUMMARY | 2025-06-29 19:10 | XMS_ITS | Encounter Summary ---
Author Organization [employer] Address [address] [place] [address] 7 [place] [address] Care Team Providers Care Call Center Director Name Role Phone Carmen Bertrand DO Primary Care Provider + [phone] Reason for Visit * Reason Comments Med Refill Encounter Details Date Type Department Care Team ([facility] st Contact Info) Description 06/01/2025 Refill [facility] MEDICINE [address] [place], [place] [phone] Carmen Bertrand DO [address] [place], [place] [phone] Chronic low back pain, unspecified back pain [...] [facility] MEDICINE [address] [place] [address] Jessica Conway RN documented as of this encounter Visit Diagnoses Diagnosis Chronic low back pain, unspecified back pain laterality, unspecified whether sciatica present documented in this encounter Additional Health Concerns Assessment Noted Time PHQ-9 Depression Total Score: 22 024 11:00 AM EDT documented as of this encounter Care Teams Call Center Director Relationship Specialty Start Date End Date Carmen Bertrand DO [address] [place] [address] PCP - General Family Medicine 08/18/18 documented as of this encounter
--- OUTSIDE RECORDS SUMMARY | 2025-06-29 19:10 | XMS_ITS | Encounter Summary ---
Author Organization [employer] Address [address] [place] [address] 7 [place] [address] Care Team Providers Care Pet Care Technician Name Role Phone Carmen Bertrand DO Primary Care Provider + [phone] Reason for Visit * Reason Comments Med Refill Encounter Details Date Type Department Care Team ([facility] st Contact Info) Description 01/26/2025 Refill [facility] MEDICINE [address] [place], [place] [phone] Carmen Bertrand DO 230 [place], [place] [phone] Social History Tobacco Use Types Packs/Day Years [...] [facility] MEDICINE [address] [place] [address] Jessica Conway, RULA documented as of this encounter Visit Diagnoses Not on filedocumented in this encounter Additional Health Concerns Assessment Noted Time PHQ-9 Depression Total Score: 22 024 11:00 AM EDT documented as of this encounter Care Teams Pet Care Technician Relationship Specialty Start Date End Date Carmen Bertrand DO [address] [place] [address] PCP - General Family Medicine 08/18/18 documented as of this encounter
--- OUTSIDE RECORDS SUMMARY | 2025-06-29 19:11 | XMS_ITS | Encounter Summary ---
Author Organization [employer] Address [address] [place] [address] 7 [place] [address] Care Team Providers Care Systems Integration Advisor Name Role Phone Carmen Bertrand DO Primary Care Provider + [phone] Reason for Visit * Reason Comments Med Refill Encounter Details Date Type Department Care Team ([facility] st Contact Info) Description 02/04/2025 Refill [facility] MEDICINE [address] [place], [place] [phone] Carmen Bertrand DO [address] [place], [place] [phone] Chronic low back pain, unspecified back pain [...] Support [facility] MEDICINE [address] [place] [address] Jessica Conway RN documented as of this encounter Visit Diagnoses Diagnosis Chronic low back pain, unspecified back pain laterality, unspecified whether sciatica present documented in this encounter Additional Health Concerns Assessment Noted Time PHQ-9 Depression Total Score: 22 024 11:00 AM EDT documented as of this encounter Care Teams Systems Integration Advisor Relationship Specialty Start Date End Date Carmen Bertrand DO [address] [place] [address] PCP - General Family Medicine 08/18/18 documented as of this encounter
--- OUTSIDE RECORDS SUMMARY | 2025-06-29 19:11 | XMS_ITS | Encounter Summary ---
Author Organization [employer] Address [address] [facility] 7 [place] [address] Care Team Providers Care Mannequin Maker Name Role Phone ElzaCarmen Primary Care Provider + [phone] Encounter Details Date Type Department Care Team ([facility] st Contact Info) Description 06/29/2025 Orders Only GENERIC EXTERNAL DATA [...] t he electric, gas, oil or water [employer] threatened to shut off services in your [...] 2:00 PM EST Clinical Support [facility] [address] [place] [phone] Jessica Conway RN documented as of this encounter Procedures Procedure Name Priority Date/Time Associated Diagnosis Comments URINALYSIS, COMPLETE, WITH REFLEX TO CULTURE Routine 06/29/2025 6:18 PM EST CBC WITH AUTO DIFFERENTIAL Routine 06/29/2025 5:29 PM EST MAGNESIUM Routine 06/29/2025 5:29 PM EST LIPASE Routine 06/29/2025 5:29 PM EST COMPREHENSIVE METABOLIC PANEL Routine 06/29/2025 5:29 PM EST documented in this encounter Results * (ABNORMAL) Urinalysis, Complete, with Reflex to Culture (06/29/2025 6:18 PM EST) Color Urine Dark Yellow [facility] Appearance Urine Clear [facility] PH 6.0 5.0 - 9.0 [facility] Glucose Urine UA Negative Negative mg/dL [facility] Urine Blood Negative Negative [facility] Specific [place] - Urine 1.025 1.005 - 1.025 [facility] Urine Protein 30 (1+)(A) Neg-Trace mg/dL [facility] Urine Ketones Trace Negative mg/dL [facility] Nitrite Urine Negative Negative [facility] Leukocyte Esterase Urine Trace(A) Negative [facility] RBC Urine 0-2 0 - 2 /HPF [facility] Urine WBC 0-5 0 - 5 /HPF [facility] Urine Squamous Epithelial Cell 3-5 0 - 2 /HPF [facility] Urine Bacteria Trace None Seen [facility] Hyaline Casts, Urine 6-10 0 - 2 /LPF [facility] 06/29/2025 6:18 PM EST 06/29/2025 6:21 PM EST Narrative [facility] - 06/29/2025 6:38 PM EST Urine, Clean Catch us Generic External Data Provider LAB URINE ORDERAB LES Final Result Performing Organization Address [facility] Co de Phone Number [facility] [address] [place] [phone] * Lipase (06/29/2025 5:29 PM EST) Lipase 11 8 - 78 U/L [facility] 06/29/2025 5:29 PM EST 06/29/2025 5:33 PM EST us Generic External Data Provider LAB BLOOD ORDERAB LES Final Result Performing Organization Address City/[facility] Co de Phone Number [facility] [address] [place] [address] [phone] * Magnesium (06/29/2025 5:29 PM EST) Magnesium 2.0 1.6 - 2.6 mg/dL [facility] 06/29/2025 5:29 PM EST 06/29/2025 5:33 PM EST us Generic External Data Provider LAB BLOOD ORDERAB LES Final Result Performing Organization Address City/[facility]/ZIP Co de Phone Number [facility] [address] [place] [address] [phone] * (ABNORMAL) Comprehensive Metabolic Panel (06/29/2025 5:29 PM EST) Sodium 142 135 - 145 mmol/L [facility] Potassium 3.8 3.3 - 5.1 mmol/L [facility] Chloride 110(H) 96 - 108 mmol/L [facility] Carbon Dioxide 27 22 - 29 mmol/L [facility] Anion Gap 9(L) 12 - 20 [facility] Urea Nitrogen (BUN) 17(H) 9 - 16 mg/dL [facility] Creatinine, Serum 1.17 0.5 - 1.4 mg/dL [facility] Creatinine Clr Calc Pharmacy 89.6 [facility] Comment:Provided height and weight: 172.72 cm,148.2 kg.eGFR (calculated from the MDRD study equation) and eCrCl(calculated from the Cockcroft-Gault equation) are based ondifferent parameters and may not yield comparable results.If eCrCl result is absurd, please check patient'sheight/weight. Estimated Glomerular Filt Rate 49 [facility] Comment:Chronic Kidney Disea se: Estimated GFR < 60 mL/min/[id number] Kidney Disease: Estimated GFR < 15 mL/min/1.73m2 Glucose 100 60 - 115 mg/dL [facility] Calcium 9.5 8.4 - 10.2 mg/dL [facility] Bilirubin, Total 0.6 0.0 - 1.0 mg/dL [facility] Aspartate Amino Transferase 24 5 - 31 U/L [facility] Alanine Aminotransferase 22 0 - 31 U/L [facility] Total Protein 7.3 6.5 - 8.0 g/dL [facility] Albumin Level 3.8 3.5 - 5.0 g/dL [facility] Alkaline Phosphatase 110 39 - 117 U/L [facility] 06/29/2025 5:29 PM EST 06/29/2025 5:33 PM EST us Generic External Data Provider LAB BLOOD ORDERAB LES Final Result [facility] [address], [place] [phone] * (ABNORMAL) CBC auto differential (06/29/2025 5:29 PM EST) White Blood Count 11.8(H) 4.8 - 10.8 X10*3/uL [facility] Red Blood Count 4.53 4.20 - 5.50 X10*6/uL [facility] Hemoglobin 14.1 12.0 - 16.0 g/dl [facility] Hematocrit 43.0 37.0 - 47.0 % [facility] Mean Corpuscular Volume 94.9 80.0 - 98.0 fL [facility] Mean Corpuscular Hemoglobin 31.1 27.0 - 33.0 pg [facility] Mean Corpuscular HGB Conc 32.8 31.0 - 35.0 g/dl [facility] Red Cell Distribution Width 14.1 11.0 - 16.0 % [facility] Platelet Count 265 160 - 400 X10*3/uL [facility] Mean Platelet Volume 9.5 9.4 - 12.3 fL [facility] Neutrophils Percent Auto 58.4 45 - 73 % [facility] Imm Gran Pct Auto 0.4 0.0 - 0.4 % [facility] Lymphocytes Percent Auto 31.4 20 - 40 % [facility] Monocytes Percent Auto 7.4 2 - 11 % [facility] Eosinophils Percent Auto 2.0 0 - 4 % [facility] Basophils Percent Auto 0.4 0 - 2 % [facility] NRBC Pct Auto 0.0 0.0 - 0.2 /100WBC [facility] Neutrophils Absolute Auto 6.9 2.0 - 8.3 x10*3/uL [facility] Imm Gran Abs Auto 0.05(H) 0.00 - 0.03 X10*3/uL [facility] Lymphocytes Absolute Auto 3.7 1.2 - 4.9 X10*3/uL [facility] Monocytes Absolute Auto 0.9 0.1 - 1.2 X10*3/uL [facility] Eosinophils Absolute Auto 0.2 0.0 - 0.4 X10*3/uL [facility] Basophils Absolute Auto 0.1 0.0 - 0.2 X10*3/uL [facility] NRBC Abs Auto 0.000 0.0 - 0.012 X10*3/uL [facility] 06/29/2025 5:29 PM EST 06/29/2025 5:33 PM EST us Generic External Data Provider LAB BLOOD ORDERAB LES Final Result Performing Organization Address City/State/[facility] Co de Phone Number [facility] [address] [place] [phone] documented in this encounter Visit Diagnoses Not on filedocumented in this encounter Additional Health Concerns Assessment Noted Time PHQ-9 Depression Total Score: 22 024 11:00 AM EDT documented as of this encounter Care Teams Mannequin Maker Relationship Specialty Start Date End Date Carmen Bertrand DO [address] [place] [address] PCP - General Family Medicine 08/18/18 documented as of this encounter
[2025-06-29] MEDS: Lactated Ringers 1,000 ML 999 ML IV ×2 (20:10→22:32)
[2025-06-29 21:51] VITALS: BP 136/64; PULSE 87; RESP 18; TEMP 36.4; O2SAT 95
[2025-06-29] MEDS: Lidocaine HCl 1 % MPF 5 ML VIAL 10 ML INFILTRATI (23:23)
--- NOTE | 2025-06-29 23:28 | PC.NURSE ---
Dressing applied to site of abscess drainage, bleeding controlled.
[2025-06-29 23:58] VITALS: BP 136/64; PULSE 87; RESP 18; TEMP 36.4; O2SAT 95
== END 2025-06-29 23:58 | disposition home or self-care (01) ==
PROVIDERS: Physician Assistant Medical; Emergency Provider Emergency Medicine; PCP Family Medicine
DX: K55.039 Acute (reversible) ischemia of large intestine, extent unspecified (principal); N61.1 Abscess of the breast and nipple; H53.8 Other visual disturbances; I10 Essential (primary) hypertension; I25.2 Old myocardial infarction
CPT/HCPCS: 10060; 36415; 74177; 80053; 81001; 83690; 83735; 85025; 86140; 96360; 96361; 99284; 99285; J2003; J7120; Q9967

== ENCOUNTER → 2025-06-29 18:42 | Outpatient (BNV) | payer OTHER, SELFPAY ==
[2025-06-14 13:00] VITALS: BP 128/72; BP 140/60; BP 148/88; BMI 63.7
== END ==
PROVIDERS: Emergency Provider Emergency Medicine; PCP Family Medicine; Visit Provider Student in an Organized Health Care Education/Training Program
DX: R19.5 Other fecal abnormalities (principal); R10.32 Left lower quadrant pain; R10.12 Left upper quadrant pain
CPT/HCPCS: 74177

== ENCOUNTER 2025-07-11 10:18 | Outpatient (REF) | payer OTHER, SELFPAY ==
[2025-06-14 13:00] VITALS: BP 128/72; BP 140/60; BP 148/88; BMI 63.7
--- OUTSIDE RECORDS SUMMARY | 2025-07-08 11:45 | XMS_ITS | Encounter Summary ---
Author Organization [employer] Address [address] [place] [address] [place] [address] Care Team Providers Care Fabric Inspector Name Role Phone Carmen Bertrand DO Primary Care Provider [phone] Reason for Referral * Consultation (Routine) - Authorized Specialty Diagnoses / Procedures Referred By Jackie t Referred To Contact Hematology and Oncology Diagnoses Leukocytosis, unspecified type Carmen Bertrand DO [address] [place] [address] Phone: tel: fax: Hematology & Oncology, [address] Phone: tel: fax: Referral ID Status Reason Start Date Expiration Date Visits Requested Visits Authorized [id number] Authorized Specialty Services Required 5 07/08/2026 1 1 * Imaging (Routine) - Authorized Specialty Diagnoses / Procedures Referred By Contac t Referred To Contact Cardiology Diagnoses Ischemic colitis (CMS/HCC) Procedures Vascular US mesenteric artery duplex complete Carmen Bertrand DO [address] [place] [address] Phone: tel: fax: [address] [address] Phone: tel: fax: Referral ID Status Reason Start Date Expiration Date Visits Requested Visits Authorized [id number] Authorized Perform Procedure 5 07/08/2026 1 1 * Imaging (Routine) - Authorized Specialty Diagnoses / Procedures Referred By Contac t Referred To Contact Cardiology Diagnoses Ischemic colitis (CMS/HCC) Procedures VASC US Aorta Iliac Duplex Complete Carmen Bertrand DO [address] [place] [address] Phone: tel: fax: [address] [address] Phone: tel: fax: Referral ID Status Reason Start Date Expiration Date Visits Requested Visits Authorized [id number] Authorized Perform Procedure 5 07/08/2026 1 1 * Consultation (Urgent) - Authorized Specialty Diagnoses / Procedures Referred By Contac t Referred To Contact Vascular Surgery Diagnoses Ischemic colitis (CMS/HCC) Carmen Bertrand DO [address] [place] [address] Phone: tel: fax: Ty Griggs MD [address] [place], [place] Phone: tel: fax: Referral ID Status Reason Start Date Expiration Date Visits Requested Visits Authorized [id number] Authorized Specialty Services Required 5 07/08/2026 1 1 * Consultation (Urgent) - Authorized Specialty Diagnoses / Procedures Referred By Contac t Referred To Contact Orthopaedic Surgery Diagnoses Chronic right shoulder pain Carmen Bertrand DO [address] [place] [address] Phone: tel: fax: [facility] [address] [place] [address] Dr [address] [place] [address] Phone: tel: fax: Referral ID Status Reason Start Date Expiration Date Visits Requested Visits Authorized [id number] Authorized Specialty Services Required 07/08/2026 1 1 Encounter Details Date Type Department Care Team (Late st Contact Info) Description 07/08/2025 11:45 AM EST Office Visit [facility] [address] [place] [address] Carmen Bertrand DO [address] [place] [address] Ischemic colitis (CMS/HCC) (Primary Dx); Syncope, unspecified syncope type; Chronic constipation; Chronic right shoulder pain; Clavicle pain; Leukocytosis, unspecified type; Morbid obesity with BMI of 50.0-59.9, adult (CMS/HCC) (HCC); Encounter for immunization Social History Tobacco Use Types Packs/Day Years [...] Sign Reading Time Taken Comments Blood Pressure 110/60 07/08/2025 12:03 PM EST Pulse 68 07/08/2025 12:03 PM EST Temperature 36.1 C (97 F) 07/08/2025 12:03 PM EST Respiratory Rate - - Oxygen Saturation - - Inhaled Oxygen Concentration - - Weight 151 kg (332 lb 12.8 oz) 07/08/2025 12:03 PM EST Height 172.7 cm (5' 8 ) 07/08/2025 12:03 PM EST Body Mass Index 50.6 07/08/2025 12:03 PM EST documented in this encounter Progress Notes * Carmen Bertrand, DO - 07/08/2025 11:45 AM EST SUBJECTIVE: Blaire Jean is a 50 y.o. year old female who presents for follow up. HPI She presented to [facility] on 06/29/25 c/o L sided abdominal pain and bloody stools. She also c/o painful lump under her R breast. She was afebrile and slightly hypertensive. She was chronically ill appearing. She had mild L abdominal tenderness on exam and abscess below R breast. She was given IVFs and GI cocktail. She had I&D of abscess and given dose of cefuroxime. Her labs were stable with mildly elevated CRP, UA with trace LE. She had CT abdomen/pelvis with colitis extending from the mid transverse colon to the rectum. GI was consulted and felt fairly classic case of ischemic colitis and no treatment indicated other than staying well hydrated. She was discharged home with keflex and bacitracin and advised to f/u with [facility] and PCP. She had a syncopal episode in the hospital the day prior while have BA swallow completed and rapid response was called and she was taken to the ED for evaluation. She was thought to have vasovagal syncopal episode and discharged home. She felt lightheaded and nausea in the bathroom in radiology on 06/28/25 and called for help. She was transferred from toilet to stretcher and taken to ED. In ED she c/o R shoulder pain. Her vitals were nml. She had no acute findings on exam. Her WBC was mildly elevated with increased lymphocytes. Troponin was negative x 2. Her shoulder xray showed chronic anterior-inferior subluxation. She was monitored without further incident and discharged home. Ischemic colitis and gastrointestinal symptoms - Onset of symptoms approximately 2-3 days prior to encounter - Experienced sudden onset of abdominal pain while waiting for medical appointment - Reported needing to use the bathroom due to pain, with subsequent dizziness and tingling in the fingers - Lost consciousness while on the toilet; regained awareness in the emergency room - Underwent multiple tests in the emergency department; unable to recall specific diagnosis at the time - Reported severe abdominal pain and inability to tolerate the discomfort - Noted passage of large amounts of stool, followed by recurrence of pain and onset of rectal bleeding during defecation described as jelly-like ; provided a photo of the rectal bleeding to medical staff - Symptoms of abdominal pain and bloody diarrhea have resolved Constipation - Reports ongoing constipation following resolution of colitis symptoms - States bowel movements require effort and are infrequent Shoulder and clavicle pain - Reports persistent pain in the shoulder and clavicle region, worsened by certain movements such as raising the arm; she has to keep arm in certain positions - Describes pain as recurrent and progressive - Noted that pain is relieved by certain positions Breast abscess - Reports recent breast abscess with warmth and drainage - Packing was placed in the abscess, which came out on its own - Abscess site remains open but is improving - Currently completing a course of antibiotics for the abscess Weight loss - Wants to increase dose of medication, feels that her weight loss has plateuad - Notes decreased appetite and reduced cravings, requiring effort to eat Review of Systems Constitutional: Negative for chills and fever. Respiratory: Negative for shortness of breath. Cardiovascular: Negative for chest pain and leg swelling. Gastrointestinal: Negative for abdominal pain, diarrhea and vomiting. Neurological: Negative for headaches. Patient Active Problem List Diagnosis Essential hypertension Microscopic hematuria Mild persistent asthma Obstructive sleep apnea Posttraumatic stress disorder Major depression, recurrent, chronic (CMS/HCC) Nephrolithiasis Fatty liver Prediabetes Tobacco dependence History of non-ST elevation myocardial infarction (NSTEMI) Chronic migraine Hyperlipidemia Osteoarthritis of knees, bilateral Chronic low back pain Leukocytosis Hirsutism Melasma Chronic pain of both knees Precordial pain Coronary artery disease S/P cardiac catheterization Chronic constipation Long-term current use of opiate analgesic Diverticulosis Tubular adenoma Delgado esophagus Morbid obesity with BMI of 50.0-59.9, adult (CMS/HCC) ([facility]) Allergies Allergen Reactions Aspirin Anaphylaxis Completed aspirin desensitization 05/2022 Penicillin G Shortness of breath Other reaction(s): DIFFICULTY BREATHING Penicillin V Anaphylaxis Semaglutide Other Reaction(s): Stomach Upset stomach upset + teeth loss OBJECTIVE Vitals: 07/08/25 1203 BP: 110/60 BP Location: Other (Comment) Patient Position: Sitting BP Cuff Size: Adult Pulse: 68 Temp: 97 ??F (36.1 ??C) TempSrc: Oral Weight: 332 lb 12.8 oz (151 kg) Height: 5' 8 (1.727 m) Physical Exam Constitutional: General: She is not in acute distress. Appearance: Normal appearance. She is obese. Cardiovascular: Rate and Rhythm: Normal rate and regular rhythm. Heart sounds: Normal heart sounds. No murmur heard. Pulmonary: Effort: Pulmonary effort is normal. Breath sounds: Normal breath sounds. No wheezing or rhonchi. Abdominal: General: Bowel sounds are normal. Palpations: Abdomen is soft. There is no mass. Tenderness: There is no abdominal tenderness. There is no guarding or rebound. Neurological: General: No focal deficit present. Mental Status: She is alert and oriented to person, place, and time. Cranial Nerves: No cranial nerve deficit. Motor: No weakness. Gait: Gait normal. Psychiatric: Mood and Affect: Mood normal. ASSESSMENT/PLAN Diagnoses and all orders for this visit: Ischemic colitis (CMS/HCC) Symptoms resolved -reviewed diagnosis with patient -referred for abdominal US duplex for evaluation -referred to vascular for evaluation -cont aspirin and statin daily -advised rtc or go to ED if symptoms recur - Referral to Vascular Surgery; Future - VASC US Aorta Iliac Duplex Complete; Future - Vascular US mesenteric artery duplex complete; Future Syncope, unspecified syncope type Single syncopal episode, likely vasovagal, no recurrent symptoms -advised contact HHC if recurrent dizziness/syncope Chronic constipation -encouraged increased fluids, fruits/vegetables -start colace and fiber supplementation BID -start miralax prn -advised contact HHC if no improvement Chronic right shoulder pain -shoulder xrays with persistent anterior-inferior subluxation -cont pain meds prn -referred to ortho for eval - ketorolac (Toradol) injection 30 mg - Referral to Orthopaedic Surgery; Future Clavicle pain -probable OA -referred for xrays -advised rtc if increased pain, swelling or redness, she agrees with plans - XR Clavicle Left; Future - XR Clavicle Right; Future Leukocytosis, unspecified type Chronic elevated WBC with increase in lymphocytes and atypical lymphs -referred to hematology for eval - Referral to Hematology / Oncology; Future Morbid obesity with BMI of 50.0-59.9, adult (CMS/HCC) (HCC) Weight down nearly 8lbs since last visit -cont lifestyle modifications -increase tirzepatide to 12.5mg weekly Encounter for immunization - FLU VACCINE TRIVALENT [id number] (Fluarix) 19 yrs + F/U with me in 3 mos or sooner prn Current Outpatient Medications: albuterol (2.5 MG/3ML) 0.083% nebulizer solution, INHALE 1 TO 2 AMPULE USING A NEBULIZER EVERY 4 TO6 HOURS NEEDED FOR COUGH, WHEEZING, OR SHORTNESS OF BREATH, Disp: 90 mL, Rfl: 3 albuterol (Ventolin HFA) 108 (90 Base) MCG/ACT inhaler, INHALE 2 PUFFS BY MOUTH EVERY 4 TO 6 HOURS NEEDED, Disp: 18 g, Rfl: 0 allopurinol (Zyloprim) 100 MG tablet, TAKE 1 TABLET BY MOUTH DAILY, Disp: , Rfl: amLODIPine (Norvasc) 5 MG tablet, Take 1 tablet by mouth Once per day., Disp: , Rfl: Aspirin Low Dose 81 MG EC tablet, Take 1 tablet by mouth Once per day., Disp: , Rfl: atorvastatin (Lipitor) 80 MG tablet, TAKE 1 TABLET BY MOUTH EVERY DAY, Disp: 90 tablet, Rfl: 3 baclofen (Lioresal) 10 MG tablet, Take 1 tablet (10 mg) by mouth if needed in the morning, at noon,and at bedtime for muscle spasms., Disp: 60 tablet, Rfl: 2 benzoyl peroxide (PanOxyl Foaming Wash) 10 % external wash, Apply topically Once per day., Disp: 227 g, Rfl: 2 brdsjkz-wwyinAVTNSOWF-jnskshigalqg (Pylera) 140-125-125 MG capsule, Take 3 capsules by mouth beforebreakfast, before lunch, before evening meal, and at bedtime for 14 days. Follow each dose with 8 oz of water., Disp: 168 capsule, Rfl: 0 Blood Pressure kit, 1 each 1 (one) time per week., Disp: 1 kit, Rfl: 0 chlorhexidine (Hibiclens) 2 % external liquid, Apply topically Once per day. Apply topically daily x one week then use as needed, Disp: 236 mL, Rfl: 2 clopidogrel (Plavix) 75 MG tablet, Take 1 tablet by mouth Once per day., Disp: , Rfl: D3 Super Strength 50 MCG (2000 UT) capsule, TAKE 1 CAPSULE BY MOUTH EVERY DAY, Disp: 90 capsule, Rfl: 3 docusate sodium (Colace) 100 MG capsule, Take 1 capsule (100 mg) by mouth 2 times daily., Disp: 180capsule, Rfl: 3 econazole nitrate 1 % cream, APPLY TOPICALLY TO AFFECTED AREA(S) TWICE DAILY DIRECTED, Disp: 85 g, Rfl: 1 ergocalciferol (Vitamin D2) 1.25 MG (97261 UT) capsule, Take 1 capsule (1.25 mg) [...] Disp: , Rfl: hydroquinone 4 % cream, APPLY TOPICALLY TWICE DAILY, Disp: 28.35 g, Rfl: 1 isosorbide mononitrate ER (Imdur) 60 MG 24 hr tablet, Take 1 tablet (60 mg) by mouth Once per day. Do not crush or chew., Disp: 30 tablet, Rfl: 11 lisinopril 20 MG tablet, Take 1 tablet by mouth Once per day., Disp: , Rfl: metFORMIN XR (Glucophage-XR) 500 MG 24 hr tablet, Take 2 tablets (1,000 mg) by mouth with evening meal., Disp: 180 tablet, Rfl: 3 metoprolol succinate XL (Toprol-XL) 50 MG 24 hr tablet, TAKE 1 TABLET BY MOUTH EVERY DAY, Disp: 90 tablet, Rfl: 1 metroNIDAZOLE (Metrogel) 0.75 % gel, APPLY TOPICALLY TO THE AFFECTED AREA(S) OF THE FACE EVERY DAY NEEDED, Disp: 45 g, Rfl: 1 mirtazapine (Remeron) 7.5 MG tablet, TAKE 1 TABLET BY MOUTH AT BEDTIME, Ya no tomes quetiapine o paroxetine, Disp: , Rfl: naloxone (Narcan) 4 mg/0.1 mL nasal spray, FOR SUSPECTED OPIOID OVERDOSE. SPRAY 0.1mL IN ONE NOSTRIL. REPEAT IN ALTERNATE NOSTRIL 2-3 MINUTES IF NEEDED. SEEK MEDICAL ATTENTION IMMEDIATELY EVEN IF PATIENT RESPONDS., Disp: 2 each, Rfl: 3 nitroglycerin (Nitrostat) 0.4 MG SL tablet, Place 1 tablet (0.4 mg) under the tongue every 5 (five)minutes if needed for chest pain. X 3 doses. Call 911 if chest pain does not resolve, Disp: 30 tablet, Rfl: 0 pantoprazole (ProtoNix) 20 MG EC tablet, TAKE 1 TABLET BY MOUTH EVERY DAY 30 MINUTES BEFORE A MEAL,Disp: , Rfl: polycarbophil (Fibercon) 625 MG tablet, Take 1 tablet (625 mg) by mouth 2 times daily., Disp: 180 tablet, Rfl: 3 polyethylene glycol, PEG, 3350 (MiraLax) 17 GM/SCOOP powder, Take 17 g by mouth if needed each day (constipation)., Disp: 527 g, Rfl: 3 pyridoxine (Vitamin B-6) 100 MG tablet, TAKE 1 TABLET BY MOUTH EVERY DAY, Disp: , Rfl: Tirzepatide-Weight Management (Zepbound) 12.5 MG/0.5ML solution auto-injector, Inject 0.5 mL (12.5 mg) under the skin 1 (one) time per week., Disp: 2 mL, Rfl: 3 topiramate 50 MG tablet, TAKE 1 TABLET BY MOUTH TWICE DAILY, Disp: 60 tablet, Rfl: 5 traMADol (Ultram) 50 MG tablet, Take 1 tablet (50 mg) by mouth every 8 (eight) hours if needed for severe pain for up to 28 days. Do not start before July 06, 2025., Disp: 84 tablet, Rfl: 0 Current Facility-Administered Medications: ketorolac (Toradol) injection 30 mg, 30 mg, Intramuscular, Once, Carmen Bertrand DO This note was drafted using Ambient (AI) technology. The patient/patient's guardian has been informed and has consented to the use of this technology: Yes documented in this encounter Plan of Treatment Upcoming Encounters Date Type Department Care Team (Late st Contact Info) Description 09/07/2025 2:00 PM EST Clinical Support [facility] [address] [place] [phone] Jessica Conway, RN Scheduled Referrals Name Type Priority Associated Diagnoses Orde r Schedule Referral to Orthopaedic Surgery Outpatient Referral Urgent Chronic right shoulder pain Expected: 07/08/2025 (Approximate), Expires: 07/08/2026 Referral to Vascular Surgery Outpatient Referral Urgent Ischemic colitis (CMS/HCC) Expected: 07/08/2025 (Approximate), Expires: 07/08/2026 Referral to Hematology / Oncology Outpatient Referral Routine Leukocytosis, unspecified type Expected: 07/08/2025 (Approximate), Expires: 07/08/2026 documented as of this encounter Procedures Procedure Name Priority Date/Time Associated Diagnosis Comments XR CLAVICLE LEFT Routine 07/11/2025 10:3 4 AM EST Clavicle pain XR CLAVICLE RIGHT Routine 07/11/2025 10: 31 AM EST Clavicle pain documented in this encounter Results * XR Clavicle Left (07/11/2025 10:34 AM EST) Anatomical Region Laterality Modality Body, Clavicle Left Radiographic Alejandrina ging 07/11/2025 10:3 4 AM EST Narrative 07/11/2025 11:57 AM EST [address] [address] XRay Report Signed Patient: Blaire Quiroz MR#: [id number] : 1975 Acct:[id number] Age/Sex: 50 / F ADM Date: 07/11/25 Loc: [facility] Attending Dr: Rosy Carrillo BUCKLE [employer]WER Ordering Physician: Carmen Bertrand DO Date of Service: 07/11/25 Procedure(s): XR clavicle LT Accession Number(s): [id number] cc: Carmen Bertrand DO Reason for Exam: medial clavicle pain and swelling EXAMINATION: XR CLAVICLE RIGHT, XR CLAVICLE LEFT HISTORY: medial clavicle pain and swelling COMPARISON: Correlation is made with plain films of the right shoulder dated 06/28/2025. FINDINGS: Two views of the bilateral clavicles are submitted. Osseous mineralization is normal. There is no fracture or dislocation. There is mild narrowing of the left AC joint. The right AC joint is maintained. The soft tissues are unremarkable. XR/XR clavicle LT IMPRESSION: Mild narrowing of the left AC joint. Evaluation of the medial clavicles is limited on plain films. If further imaging is desired, CT could be performed. Electronically signed by: Marcus Louis MD 07/11/2025 11:54 AM EST Dictated By: Marcus Louis MD Signed By: <Electronically signed by Marcus Louis MD in OV> 07/11/25 1154 DD/ 1034 TD/TT: 07/11/25 1045 Toolroom Keeper: Procedure Note Donotuseinterpreter, Image - 07/11/[address] [address] XRay Report Signed Patient: Blaire QuirozMR#: [id number] : 1975Acct:[id number] Age/Sex: 50 / FADM Date: 07/11/25 Loc: [facility] Attending Dr: Rosy Carrillo BUCKLE [employer]WER Ordering Physician: Carmen Bertrand DO Date of Service: 07/11/25 Procedure(s): XR clavicle LT Accession Number(s): [id number] cc: Carmen Bertrand DO Reason for Exam: medial clavicle pain and swelling EXAMINATION: XR CLAVICLE RIGHT, XR CLAVICLE LEFT HISTORY: medial clavicle pain and swelling COMPARISON: Correlation is made with plain films of the right shoulder dated 06/28/2025. FINDINGS: Two views of the bilateral clavicles are submitted. Osseous mineralization is normal. There is no fracture or dislocation. There is mild narrowing of the left AC joint. The right AC joint is maintained. The soft tissues are unremarkable. XR/XR clavicle LT IMPRESSION: Mild narrowing of the left AC joint. Evaluation of the medial clavicles is limited on plain films. If further imaging is desired, CT could be performed. Electronically signed by: Marcus Louis MD 07/11/2025 11:54 AM EST Dictated By: Marcus Louis MD Signed By: <Electronically signed by Marcus Louis MD in OV> 07/11/25 1154 DD/ 1034 TD/TT: 07/11/25 1045 Toolroom Keeper: us Carmen Bertrand DO IMG XR PROCEDURES Final Resu lt * XR Clavicle Right (07/11/2025 10:31 AM EST) Anatomical Region Laterality Modality Body, Clavicle Right Radiographic Alejandrina ging 07/11/2025 10:3 1 AM EST Narrative 07/11/2025 11:57 AM EST [address] [address] XRay Report Signed Patient: Blaire Quiroz MR#: [id number] : 1975 Acct:[id number] Age/Sex: 50 / F ADM Date: 07/11/25 Loc: [facility] Attending Dr: Rosy Carrillo CNP Ordering Physician: Carmen Bertrand DO Date of Service: 07/11/25 Procedure(s): XR clavicle RT Accession Number(s): [id number] cc: Carmen Bertrand DO Reason for Exam: medial clavicle pain and swelling EXAMINATION: XR CLAVICLE RIGHT, XR CLAVICLE LEFT HISTORY: medial clavicle pain and swelling COMPARISON: Correlation is made with plain films of the right shoulder dated 06/28/2025. FINDINGS: Two views of the bilateral clavicles are submitted. Osseous mineralization is normal. There is no fracture or dislocation. There is mild narrowing of the left AC joint. The right AC joint is maintained. The soft tissues are unremarkable. XR/XR clavicle RT IMPRESSION: Mild narrowing of the left AC joint. Evaluation of the medial clavicles is limited on plain films. If further imaging is desired, CT could be performed. Electronically signed by: Marcus Louis MD 07/11/2025 11:54 AM EST Dictated By: Marcus Louis MD Signed By: <Electronically signed by Marcus Louis MD in OV> 07/11/25 1154 DD/ 1031 TD/TT: 07/11/25 1045 Toolroom Keeper: Procedure Note Donotuseinterpreter, Image - 07/11/[address] [address] XRay Report Signed Patient: Blaire QuirozMR#: Jamarcus [id number] : 1975Acct:[id number] Age/Sex: 50 / FADM Date: 07/11/25 Loc: [facility] Attending Dr: Rosy Carrillo CNP Ordering Physician: Carmen Bertrand DO Date of Service: 07/11/25 Procedure(s): XR clavicle RT Accession Number(s): [id number] cc: Carmen Bertrand DO Reason for Exam: medial clavicle pain and swelling EXAMINATION: XR CLAVICLE RIGHT, XR CLAVICLE LEFT HISTORY: medial clavicle pain and swelling COMPARISON: Correlation is made with plain films of the right shoulder dated 06/28/2025. FINDINGS: Two views of the bilateral clavicles are submitted. Osseous mineralization is normal. There is no fracture or dislocation. There is mild narrowing of the left AC joint. The right AC joint is maintained. The soft tissues are unremarkable. XR/XR clavicle RT IMPRESSION: Mild narrowing of the left AC joint. Evaluation of the medial clavicles is limited on plain films. If further imaging is desired, CT could be performed. Electronically signed by: Marcus Louis MD 07/11/2025 11:54 AM EST RP Dictated By: Marcus Louis MD Signed By: <Electronically signed by Marcus Louis MD in OV> 07/11/25 1154 DD/ 1031 TD/TT: 07/11/25 1045 Toolroom Keeper: Carmen Bertrand DO IMG XR PROCEDURES Final Resu lt documented in this encounter Visit Diagnoses Diagnosis Ischemic colitis (CMS/HCC)- Primary Syncope, unspecified syncope type Chronic constipation Unspecified constipation Chronic right shoulder pain Pain in joint, shoulder region Clavicle pain Disorder of bone and cartilage, unspecified Leukocytosis, unspecified type Morbid obesity with BMI of 50.0-59.9, adult (CMS/HCC) ([facility]) Encounter for immunization documented in this encounter Administered Medications Inactive Administered Medications - up to 3 most recent administrations Medication Order MAR Action Action Date Dose Rate Site ketorolac (Toradol) injection 30 mg 30 mg, Intramuscular, Once, On Fri07/08/25 at 1400, For 1 doseIndications:Chronic right shoulder pain Given 07/08/2025 1:00 PM EST 30 mg Right Deltoid documented in this encounter Additional Health Concerns Assessment Noted Time PHQ-9 Depression Total Score: 22 024 11:00 AM EDT documented as of this encounter Care Teams Fabric Inspector Relationship Specialty Start Date End Date Carmen Bertrand DO [address] [place] [id number] PCP - General Family Medicine 08/18/18 documented as of this encounter
--- NOTE | ~2025-07-11 | XR_ITS ---
EXAMINATION: XR CLAVICLE RIGHT, XR CLAVICLE LEFT HISTORY: medial clavicle pain and swelling COMPARISON: Correlation is made with plain films of the right shoulder dated 06/28/2025. FINDINGS: Two views of the bilateral clavicles are submitted. Osseous mineralization is normal. There is no fracture or dislocation. There is mild narrowing of the left AC joint. The right AC joint is maintained. The soft tissues are unremarkable. XR/XR clavicle RT IMPRESSION: Mild narrowing of the left AC joint. Evaluation of the medial clavicles is limited on plain films. If further imaging is desired, CT could be performed. Electronically signed by: Marcus Louis MD 07/11/2025 11:54 AM [facility]
--- NOTE | ~2025-07-11 | XR_ITS ---
EXAMINATION: XR CLAVICLE RIGHT, XR CLAVICLE LEFT HISTORY: medial clavicle pain and swelling COMPARISON: Correlation is made with plain films of the right shoulder dated 06/28/2025. FINDINGS: Two views of the bilateral clavicles are submitted. Osseous mineralization is normal. There is no fracture or dislocation. There is mild narrowing of the left AC joint. The right AC joint is maintained. The soft tissues are unremarkable. XR/XR clavicle LT IMPRESSION: Mild narrowing of the left AC joint. Evaluation of the medial clavicles is limited on plain films. If further imaging is desired, CT could be performed. Electronically signed by: Marcus Louis MD 07/11/2025 11:54 AM [facility]
--- NOTE | ~2025-07-11 | FL_ITS ---
EXAMINATION: XR FLUOROSCOPY BARIUM SWALLOW CLINICAL INFORMATION: Dysphagia/odynophagia and reflux-type symptoms. COMPARISON: 09/17/2023. TECHNIQUE: Fluoroscopic air contrast barium swallow examination was performed utilizing standard techniques with thin and thick barium and effervescent granules. Numerous spot images were obtained. Several fluoroscopic image hold cine sequences were also obtained. FINDINGS: BARIUM SWALLOW: Lateral cine images of the oropharynx and hypopharynx demonstrate normal swallow mechanism with normal epiglottic inversion and soft palate elevation. No laryngeal penetration, glottic or subglottic aspiration identified. Hypopharyngeal structures appear normal without evidence of mass or diverticulum. There was no very mild cricopharyngeal achalasia. Dual and single contrast images of the esophagus demonstrate normal caliber, contour, and mucosal pattern. No evidence of stricture, mass, or ulcerations identified. Esophageal peristalsis was mildly disordered. Feline contraction pattern identified, in keeping with chronic reflux. Small type I hiatus hernia present. No significant gastroesophageal reflux was seen during the course of the examination. Dual contrast and single contrast images of the stomach demonstrated normal contour without evidence of gross mass or ulceration. Mild prominence of the area gastricae suggesting gastritis. No residual retained food on this examination. Small filling defects and small foci of contrast pooling previously seen are not well appreciated on today's exam. Normal rugal fold pattern. Contrast freely passed into the gastric antrum and duodenal bulb without delay. FLUOROSCOPY TIME: 2 minutes 38 seconds Number of Spot Images:8 Number of cines obtained: 7 DOSE AREA PRODUCT: 3843 uGy-m2 (microgray-meter squared) FL/FL barium swallow with air IMPRESSION: 1. No laryngeal penetration evident on today's examination. 2. Very mild cricopharyngeal achalasia again noted. 3. Mildly disordered esophageal peristalsis. Feline contraction pattern identified, in keeping with chronic reflux. 4. Small type I hiatus hernia. 5. Prominence of the gastric areae gastricae, findings suggesting gastritis. Electronically signed by: Shamir Olmedo MD 07/11/2025 11:54 AM EST
--- OUTSIDE RECORDS SUMMARY | 2025-07-11 12:39 | XMS_ITS | Encounter Summary ---
Author Organization [employer] Address [address] [place] [address] 7 [place] [address] Care Team Providers Care Corn Popper Name Role Phone Carmen Bertrand DO Primary Care Provider + [phone] Reason for Visit * Reason Comments Med Refill Encounter Details Date Type Department Care Team ([facility] st Contact Info) Description 04/04/2025 Refill [facility] [address] [place], [place] [phone] Carmen Bertrand DO [address] [place], [place] [phone] Hypertension, unspecified type; Chronic low back pain, [...] Description 09/07/2025 2:00 PM EST Clinical Support [facility] [address] [place] [address] Jessica Conway RN documented as of this encounter Visit Diagnoses Diagnosis Hypertension, unspecified type Chronic low back pain, unspecified back pain laterality, unspecified whether sciatica present documented in this encounter Additional Health Concerns Assessment Noted Time PHQ-9 Depression Total Score: 22 024 11:00 AM EDT documented as of this encounter Care Teams Corn Popper Relationship Specialty Start Date End Date Carmen Bertrand DO [address] [place] [id number] PCP - General Family Medicine 08/18/18 documented as of this encounter
--- OUTSIDE RECORDS SUMMARY | 2025-07-11 12:39 | XMS_ITS | Encounter Summary ---
Author Organization [employer] Address [address] [facility] 7 [place] [address] Care Team Providers Care Employee Relations Advisor Name Role Phone Carmen Bertrand DO Primary Care Provider + [phone] Reason for Visit * Reason Comments Med Refill Encounter Details Date Type Department Care Team ([facility] st Contact Info) Description 07/22/2023 Refill [facility] [address] [place], [place] [phone] Carmen Bertrand DO [address] [place] [address] Hyperlipidemia, unspecified hyperlipidemia type Social History Tobacco [...] Description 09/07/2025 2:00 PM EST Clinical Support [facility] [address] [place] [address] Jessica Conway RN documented as of this encounter Visit Diagnoses Diagnosis Hyperlipidemia, unspecified hyperlipidemia type documented in this encounter Additional Health Concerns Assessment Noted Time PHQ-9 Depression Total Score: 21 023 11:26 AM EST documented as of this encounter Care Teams Employee Relations Advisor Relationship Specialty Start Date End Date Carmen Bertrand DO [address] [place] [address] PCP - General Family Medicine 08/18/18 documented as of this encounter
--- OUTSIDE RECORDS SUMMARY | 2025-07-11 12:39 | XMS_ITS | Encounter Summary ---
Author Organization [employer] Address [address] [place] [address] 7 [place] [address] Care Team Providers Care Horologist Apprentice Name Role Phone Elza Carmen Primary Care Provider + [phone] Reason for Visit * Reason Comments Med Refill Encounter Details Date Type Department Care Team ([facility] st Contact Info) Description 03/08/2024 Refill [facility] [address] [place] [address] Rox Sutton MD [address] [place] [address] Pain Social History Tobacco Use Types Packs/Day [...] 2:00 PM EST Clinical Support [facility] [address] [place] [address] Jessica Conway RN documented as of this encounter Visit Diagnoses Diagnosis Pain Generalized pain documented in this encounter Additional Health Concerns Assessment Noted Time PHQ-9 Depression Total Score: 21 023 11:26 AM EST documented as of this encounter Care Teams Horologist Apprentice Relationship Specialty Start Date End Date Carmen Bertrand DO [address] [place] [address] PCP - General Family Medicine 08/18/18 documented as of this encounter
--- OUTSIDE RECORDS SUMMARY | 2025-07-11 12:39 | XMS_ITS | Clinical Summary ---
Author Organization [employer] Address [address] [place] [address] 7 [place] [address] Care Team Providers Care Rod And Tube Straightener Name Role Phone RajeevMaddie jonesCarmen Primary Care Provider + [phone] Allergies Active Allergy Reactions Criticality Noted Date Comments Aspirin Anaphylaxis High Completed aspirin desensitization 05/2022 Penicillin G Shortness of breath High 02/13/2023 Other reaction(s): DIFFICULTY BREATHING Penicillin V Anaphylaxis High Semaglutide High 10/29/2023 Other Reaction(s): Stomach Upset stomach upset + teeth loss Medications allopurinol (Zyloprim) 100 MG tablet TAKE 1 TABLET BY MOUTH DAILY 06/18/20 22 Active pyridoxine (Vitamin B-6) 100 MG tablet TAKE 1 TABLET BY MOUTH EVERY DAY 06/17/20 22 Active ezetimibe (Zetia) 10 MG tablet TAKE 1 TABLET BY MOUTH EVERY DAY 10/24/19 23 Active mirtazapine (Remeron) 7.5 MG tablet TAKE 1 TABLET BY MOUTH AT BEDTIME, Ya no tomes quetiapine o paroxetine 10/15/19 23 Active bismuth-metroNI DAZOLE-tetracyc line (Pylera) 140-125-125 MG capsuleIndicati ons:H. pylori infection Take 3 capsules by mouth before breakfast, before lunch, before evening meal, and at bedtime for 14 days. Follow each dose with 8 oz of water. 168 capsule 12/16/19 24 Active isosorbide mononitrate ER (Imdur) 60 MG 24 hr tablet Take 1 tablet (60 mg) by mouth Once per day. Do not crush or chew. 30 tablet 11 04/27/20 24 Active chlorhexidine (Hibiclens) 2 % external liquid Apply topically Once per day. Apply topically daily x one week then use as needed 236 mL 2 04/27/20 24 Active Blood Pressure kit 1 each 1 (one) time per week. 1 kit 07/23/20 24 Active benzoyl peroxide (PanOxyl Foaming Wash) 10 % external washIndications :Folliculitis Apply topically Once per day. 227 g 2 08/13/20 24 2024 Active metFORMIN XR (Glucophage-XR) 500 MG 24 hr tablet Take 2 tablets (1,000 mg) by mouth with evening meal. 180 tablet 3 08/13/20 Active hydroCHLOROthia zide 12.5 MG tablet Take 1 tablet by mouth Once per day. 07/26/20 24 Active ergocalciferol (Vitamin D2) 1.25 MG (03865 UT) capsule Take 1 capsule (1.25 mg) by mouth 1 (one) time per week. 12 capsule 08/31/19 25 Active econazole nitrate 1 % cream APPLY TOPICALLY TO AFFECTED AREA(S) TWICE DAILY DIRECTED 85 g 1 09/07/19 25 Active atorvastatin (Lipitor) 80 MG tablet TAKE 1 TABLET BY MOUTH EVERY DAY 90 tablet 3 10/01/19 25 Active albuterol (Ventolin HFA) 108 (90 Base) MCG/ACT inhalerIndicati ons:Mild persistent asthma without complication INHALE 2 PUFFS BY MOUTH EVERY 4 TO 6 HOURS NEEDED 18 g 10/05/19 25 Active amLODIPine (Norvasc) 5 MG tablet Take 1 tablet by mouth Once per day. 11/10/19 25 Active clopidogrel (Plavix) 75 MG tablet Take 1 tablet by mouth Once per day. 11/10/19 25 Active hydroquinone 4 % creamIndication s:Acanthosis nigricans APPLY TOPICALLY TWICE DAILY 28.35 g 1 12/08/19 25 Active famotidine (Pepcid) 40 MG tablet TAKE 1 TABLET BY MOUTH EVERY DAY AT BEDTIME NEEDED FOR HEARTBURN 30 tablet 3 12/08/19 25 Active albuterol (2.5 MG/3ML) 0.083% nebulizer solutionIndicat ions:Mild persistent asthma without complication INHALE 1 TO 2 AMPULE USING A NEBULIZER EVERY 4 TO 6 HOURS NEEDED FOR COUGH, WHEEZING, OR SHORTNESS OF BREATH 90 mL 3 12/31/19 25 Active nitroglycerin (Nitrostat) 0.[address] 1 tablet (0.4 mg) under the tongue every 5 (five) minutes if needed for chest pain. X 3 doses. Call 911 if chest pain does not resolve 30 tablet 03/18/20 25 2025 Active fluticasone (Flonase) 50 MCG/ACT nasal spray INSTILL 2 SPRAYS IN EACH NOSTRIL ONCE DAILY 48 g 3 04/05/20 25 Active D3 Super Strength 50 MCG (2000 UT) capsule TAKE 1 CAPSULE BY MOUTH EVERY DAY 90 capsule 3 04/05/20 25 Active fluticasone (Flovent) 110 MCG/ACT inhaler INHALE 2 PUFFS TWICE DAILY IN THE MORNING AND AT BEDTIME. RINSE MOUTH AFTER USING. DO NOT SWALLOW. 12 g 11 5 1:06 PM EST 04/05/20 25 Active metoprolol succinate XL (Toprol-XL) 50 MG 24 hr tabletIndicatio ns:Hypertension , unspecified type TAKE 1 TABLET BY MOUTH EVERY DAY 90 tablet 1 04/05/20 25 Active metroNIDAZOLE (Metrogel) 0.75 % gelIndications: Melasma APPLY TOPICALLY TO THE AFFECTED AREA(S) OF THE FACE EVERY DAY NEEDED 45 g 1 5 1:06 PM EST 04/28/20 25 Active topiramate 50 MG tabletIndicatio ns:Nonintractab le headache, unspecified chronicity pattern, unspecified headache type TAKE 1 TABLET BY MOUTH TWICE DAILY 60 tablet 5 04/28/20 25 Active Aspirin Low Dose 81 MG EC tablet Take 1 tablet by mouth Once per day. 03/14/20 25 Active lisinopril 20 MG tablet Take 1 tablet by mouth Once per day. 03/14/20 25 Active pantoprazole (ProtoNix) 20 MG EC tablet TAKE 1 TABLET BY MOUTH EVERY DAY 30 MINUTES BEFORE A MEAL 05/03/20 25 Active baclofen (Lioresal) 10 MG tabletIndicatio ns:Chronic low back pain, unspecified back pain laterality, unspecified whether sciatica present Take 1 tablet (10 mg) by mouth if needed in the morning, at noon, and at bedtime for muscle spasms. 60 tablet 2 5 1:06 PM EST 06/07/20 Active naloxone (Narcan) 4 mg/0.1 mL nasal sprayIndication s:Chronic pain of both knees FOR SUSPECTED OPIOID OVERDOSE. SPRAY 0.1mL IN ONE NOSTRIL. REPEAT IN ALTERNATE NOSTRIL 2-3 MINUTES IF NEEDED. SEEK MEDICAL ATTENTION IMMEDIATELY EVEN IF PATIENT RESPONDS. 2 each 3 5 1:06 PM EST 06/09/20 Active traMADol (Ultram) 50 MG tabletIndicatio ns:Chronic low back pain, unspecified back pain laterality, unspecified whether sciatica present Take 1 tablet (50 mg) by mouth every 8 (eight) hours if needed for severe pain for up to 28 days. Do not start before July 06, 2025. 84 tablet 10:36 AM EST 07/06/20 25 2024 Active Tirzepatide-Brandon ght Management (Zepbound) 12.5 MG/0.5ML solution auto-injector Inject 0.5 mL (12.5 mg) under the skin 1 (one) time per week. 2 mL 3 07/08/20 Active docusate sodium (Colace) 100 MG capsule Take 1 capsule (100 mg) by mouth 2 times daily. 180 capsule 3 5 11:28 AM EST 07/08/20 25 2025 Active polycarbophil (Fibercon) 625 MG tablet Take 1 tablet (625 mg) by mouth 2 times daily. 180 tablet 3 5 11:28 AM EST 07/08/20 25 2025 Active polyethylene glycol, PEG, 3350 (MiraLax) 17 GM/SCOOP powder Take 17 g by mouth if needed each day (constipation) . 527 g 3 5 11:28 AM EST 07/08/20 25 2025 Active senna-docusate (Senokot S) 8.6-50 MG tablet Take 1 tablet by mouth Once per day. 30 tablet 02/15/20 25 2024 Discontinued senna (Senokot) 8.6 MG tablet TAKE 1 TABLET BY MOUTH EVERY DAY 90 tablet 03/15/20 25 2024 Discontinued(R eorder (will not trigger notification to Pharmacy)) Tirzepatide (Mounjaro) 10 MG/0.5ML solution auto-injectorIn dications:Morbi d obesity with BMI of 50.0-59.9, adult ([facility]) ([facility]) Inject 10 mg under the skin 1 (one) time per week. 2 mL 3 03/18/20 25 2024 Discontinued(D ose adjustment) traMADol (Ultram) 50 MG tabletIndicatio ns:Chronic low back pain, unspecified back pain laterality, unspecified whether sciatica present Take 1 tablet (50 mg) by mouth every 8 (eight) hours if needed for severe pain for up to 28 days. Do not start before June 08, 2025. 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 Zepbound is a competent Start Senokot and increase water intake, hold off on Zepbound until she has daily BM Coronary artery disease 08/24/2024 Overview (08/24/2024): Lad [...] Problem Noted Date Diagnosed Date Resolved Date Dermoid cyst of head 12/29/2024 025 Assessment & Plan (12/29/2024 4:45 PM EDT): On left occipital area, no signs of infection. Reassurance, I explained the patient did not back on the area and return to clinic if she develops significant enlargement of the lesion, discharge, erythema or fever I will refer her to surgery for excision, she understands that these lesions tend to recur with time Coronary arteriosclerosis 02/21/2023 BMI 50.0-59.9, adult ([facility]) 09/19/2022 06/07/2025 Class 3 severe obesity [...] Encounters Date Type Department Care Team Description 07/08/2025 11:45 AM EST Office Visit [facility] [address] [place] [address] Carmen Bertrand DO Ischemic colitis ([facility]) (Primary Dx); Syncope, unspecified syncope type; Chronic constipation; Chronic right shoulder pain; Clavicle pain; Leukocytosis, unspecified type; Morbid obesity with BMI of 50.0-59.9, adult ([facility]) ([facility]); Encounter for immunization 07/05/2025 Refill [facility] [address] [place] [address] Jessica Conway RN Chronic low back pain, unspecified back pain laterality, unspecified whether sciatica present 07/05/2025 Refill [facility] [address] [place] [address] Carmen Bertrand DO 06/29/2025 Orders Only GENERIC EXTERNAL DATA DEPARTMENT Provider, Generic External Data 06/29/[address] [address] Carmen Bertrand DO Nurse Triage 06/29/[address] [address] Carmen Bertrand DO ER Follow-up 06/08/[address] [address] Catracho Barton MD Chronic pain of both knees 06/07/2025 Orders Only [address] [address] Carmen Bertrand DO 06/06/[address] [address] Carmen Bertrand DO Chronic low back pain, unspecified back pain laterality, unspecified whether sciatica present 06/01/2025 2:00 PM EDT Clinical Support [address] [address] Jessica Conway RN Long-term current use of opiate analgesic (Primary Dx) 06/01/2025 Travel 06/01/[address] [address] Carmen Bertrand DO Chronic low back pain, unspecified back pain laterality, unspecified whether sciatica present 05/31/[address] [address] Carmen Bertrand DO telephone call; Prior Authorization ([facility] [employer] Form: Zepbound) 05/10/[address] [address] Carmen Bertrand DO Prior Authorization ([facility] PA: Marimar) 05/10/[address] [address] Carmen Bertrand DO Med Refill 05/10/2025 Refill [facility] [address] [place] [address] Carmen Bertrand, Chronic low back pain, unspecified back pain laterality, unspecified whether sciatica present 04/27/2025 Refill [facility] [address] [place] [address] Carmen Bertrand, Melasma; Nonintractable headache, unspecified chronicity pattern, unspecified headache type 04/11/2025 Refill [facility] [address] [place] [address] Carmen Bertrand, Chronic low back pain, unspecified [...] 06/17/2013,08/31/2012 Influenza, seasonal, injecta ble, preservative free 07/08/2025,05/26/2024 Moderna Covid-19 Vaccine 12+ 06/07/2021,01/30/20 21 Pneumococcal [...] F) 07/08/2025 12:03 PM EST Respiratory Rate 20 03/18/2025 12:00 PM EDT Oxygen Saturation 99% 03/18/2025 12:00 PM EDT Inhaled Oxygen Concentration - - Weight 151 kg (332 lb 12.8 oz) 07/08/2025 12:03 PM EST Height 172.7 cm (5' 8 ) 07/08/2025 12:03 PM EST Body Mass Index 50.6 07/08/2025 12:03 PM EST Plan of Treatment Upcoming Encounters Date Type Department Care Team (Late st Contact Info) Description 09/07/2025 2:00 PM EST Clinical Support [facility] [address] [place] [id number] Jessica Conway, RULA Health Maintenance Due Date Last Done Comments CT Colonography 1975 Colonoscopy 1975 FIT 1976 Sigmoidoscopy 1975 Family Planning (PISQ) 1991 Hepatitis A Vaccines (1 of 2 - Risk 2-dose series) 1995 Depression Monitoring 03/27/2025 09/27/2024, 024 COVID-19 Vaccine ( season) 2025 06/07/2021, 01/29/2021 Diabetes: Hemoglobin A1C 08/24/2025 025, 04/27/2024, 04/27/2024, [...] 05/14/2022, Additional history exists Influenza Vaccine Completed 07/08/2025, , 05/07/2022, Additional history exists HIB Vaccines [...] 07/11/2025 10: 31 AM EST Clavicle pain FL ESOPHAGUS BARIUM SWALLOW WITH AIR Routine 07/11/2025 10:[address] ABDOMEN PELVIS W CONTRAST Routine 06/29/2025 7:48 PM EST URINALYSIS, COMPLETE, WITH REFLEX TO CULTURE Routine 06/29/2025 6:18 PM EST C-REACTIVE PROTEIN Routine 06/29/2025 5: 29 PM EST LIPASE Routine 06/29/2025 5:29 PM EST MAGNESIUM Routine 06/29/2025 5:29 PM EST COMPREHENSIVE METABOLIC PANEL Routine 06/29/2025 5:29 PM EST CBC WITH AUTO DIFFERENTIAL Routine 06/29/2025 5:29 PM EST BI MAMMOGRAM SCREENING TOMOSYNTHESIS BILATERAL Routine 06/07/2025 3:00 PM EDT POCT ANALISA-14 URINE DRUG SCREEN Routine 06/01/2025 2:10 PM EDT Long-term current use of opiate analgesic LAB COLOGUARD COLON CANCER SCREEN Routine 08/31/2024 [...] right ear Healthcare maintenance BMI 50.0-59.9, adult ([facility]) Encounter for screening for malignant neoplasm of [...] Recently Relevant to Health Maintenance Results * XR Clavicle Left (07/11/2025 10:34 AM EST) Anatomical Region Laterality Modality Body, Clavicle Left Radiographic Alejandrina ging 07/11/2025 10:3 4 AM EST Narrative 07/11/2025 11:57 AM EST [place] [address] XRay Report Signed Patient: Blaire Quiroz MR#: [id number] : 1975 Acct:[id number] Age/Sex: 50 / F ADM Date: 07/11/25 Loc: [facility] Attending Dr: Rosy Carrillo [facility] Ordering Physician: Carmen Bertrand DO Date of Service: 07/11/25 Procedure(s): XR clavicle LT Accession Number(s): [id number] cc: Carmen Bertrand DO Reason for Exam: [...] 07/11/25 1154 DD/ 1034 TD/TT: 07/11/25 1045 Small Package And Bundle Sorter Clerk: Procedure Note Donotuseinterpreter, Image - 07/11/2025 [place] [address] XRay Report Signed Patient: Christianne Quiroz#: M [id number] : 1975Acct:[id number] Age/Sex: 50 / FADM Date: 07/11/25 Loc: [facility] Attending Dr: Rosy Carrillo [facility] Ordering Physician: Carmen Bertrand DO Date of Service: 07/11/25 Procedure(s): XR clavicle LT Accession Number(s): [id number] cc: Carmen Bertrand DO Reason for Exam: [...] 07/11/25 1154 DD/ 1034 TD/TT: 07/11/25 1045 Small Package And Bundle Sorter Clerk: Carmen Bertrand DO IMG XR PROCEDURES Final Resu lt * XR Clavicle Right (07/11/2025 10:31 AM EST) Anatomical Region Laterality Modality Body, Clavicle Right Radiographic Alejandrina ging 07/11/2025 10:3 1 AM EST Narrative 07/11/2025 11:57 AM EST [address] [address] XRay Report Signed Patient: Blaire Quiroz MR#: M [id number] : 1975 Acct:[id number] Age/Sex: 50 / F ADM Date: 07/11/25 Loc: [facility] Attending Dr: Rosy Carrillo CNP Ordering Physician: Carmen Bertrand DO Date of Service: 07/11/25 Procedure(s): XR clavicle RT Accession Number(s): [id number] cc: Carmen Bertrand DO Reason for Exam: [...] 07/11/25 1154 DD/ 1031 TD/TT: 07/11/25 1045 Small Package And Bundle Sorter Clerk: Procedure Note Donotuseinterpreter, Image - 07/11/[address] [address] XRay Report Signed Patient: Christianne Quiroz#: M [id number] : 1975Acct:[id number] Age/Sex: 50 / FADM Date: 07/11/25 Loc: [facility] Attending Dr: Rosy Carrillo [employer] Ordering Physician: Carmen Bertrand DO Date of Service: 07/11/25 Procedure(s): XR clavicle RT Accession Number(s): [id number] cc: Carmen Bertrand DO Reason for Exam: [...] 07/11/25 1154 DD/ 1031 TD/TT: 07/11/25 1045 Small Package And Bundle Sorter Clerk: us Carmen Bertrand DO IMG XR PROCEDURES Final Resu lt * FL Esophagus Barium Swallow w/Air (07/11/2025 10:25 AM EST) Anatomical Region Laterality Modality Head, Neck Radiographic Alejandrina ging 07/11/2025 10:2 5 AM EST Narrative 07/11/2025 11:56 AM EST [address] [address] Fluoroscopy Report Signed Patient: Blaire Quiroz MR#: M [id number] : 1975 Acct:[id number] Age/Sex: 50 / F ADM Date: 07/11/25 Loc: HO.XRAY Attending Dr: Rosy Carrillo CNP Ordering Physician: Rosy Carrillo CNP Date of Service: 07/11/25 Procedure(s): FL barium swallow with air Accession Number(s): [id number] cc: Carmen Bertrand DO; Rosy Carrillo CNP Reason for Exam: R13.10 - Dysphagia, unspecified EXAMINATION: XR FLUOROSCOPY BARIUM SWALLOW CLINICAL INFORMATION: Dysphagia/odynophagia and reflux-type symptoms. COMPARISON: 09/17/2023. TECHNIQUE: Fluoroscopic air contrast barium swallow examination was performed utilizing standard techniques with thin and thick barium and effervescent granules. Numerous spot images were obtained. Several fluoroscopic image hold cine sequences were also obtained. FINDINGS: BARIUM SWALLOW: Lateral cine images of the oropharynx and hypopharynx demonstrate normal swallow mechanism with normal epiglottic inversion and soft palate elevation. No laryngeal penetration, glottic or subglottic aspiration identified. Hypopharyngeal structures appear normal without evidence of mass or diverticulum. There was no very mild cricopharyngeal achalasia. Dual and single contrast images of the esophagus demonstrate normal caliber, contour, and mucosal pattern. No evidence of stricture, mass, or ulcerations identified. Esophageal peristalsis was mildly disordered. Feline contraction pattern identified, in keeping with chronic reflux. Small type I hiatus hernia present. No significant gastroesophageal reflux was seen during the course of the examination. Dual contrast and single contrast images of the stomach demonstrated normal contour without evidence of gross mass or ulceration. Mild prominence of the area gastricae suggesting gastritis. No residual retained food on this examination. Small filling defects and small foci of contrast pooling previously seen are not well appreciated on today's exam. Normal rugal fold pattern. Contrast freely passed into the gastric antrum and duodenal bulb without delay. FLUOROSCOPY TIME: 2 minutes 38 seconds Number of Spot Images:8 Number of cines obtained: 7 DOSE AREA PRODUCT: 3843 uGy-m2 (microgray-meter squared) FL/FL barium swallow with air IMPRESSION: 1. No laryngeal penetration evident on today's examination. 2. Very mild cricopharyngeal achalasia again noted. 3. Mildly disordered esophageal peristalsis. Feline contraction pattern identified, in keeping with chronic reflux. 4. Small type I hiatus hernia. 5. Prominence of the gastric areae gastricae, findings suggesting gastritis. Electronically signed by: Shamir Olmedo MD 07/11/2025 11:54 AM EST Dictated By: Shamir Olmedo MD Signed By: <Electronically signed by Shamir Olmedo MD in [place]> 07/11/25 1154 DD/ 1025 TD/TT: 07/11/25 1055 Small Package And Bundle Sorter Clerk: Procedure Note Donotuseinterpreter, Image - 07/11/2025 [place] [address] Fluoroscopy Report Signed Patient: Blaire Quiroz#: M [id number] : 1975Acct:[id number] Age/Sex: 50 / FADM Date: 07/11/25 Loc: [facility] Attending Dr: Rosy Carrillo CNP Ordering Physician: Rosy Carrillo CNP Date of Service: 07/11/25 Procedure(s): FL barium swallow with air Accession Number(s): [id number] cc: Carmen Bertrand DO; Rosy Carrillo CNP Reason for Exam: R13.10 - Dysphagia, unspecified EXAMINATION: XR FLUOROSCOPY BARIUM SWALLOW CLINICAL INFORMATION: Dysphagia/odynophagia and reflux-type symptoms. COMPARISON: 09/17/2023. TECHNIQUE: Fluoroscopic air contrast barium swallow examination was performed utilizing standard techniques with thin and thick barium and effervescent granules. Numerous spot images were obtained. Several fluoroscopic image hold cine sequences were also obtained. FINDINGS: BARIUM SWALLOW: Lateral cine images of the oropharynx and hypopharynx demonstrate normal swallow mechanism with normal epiglottic inversion and soft palate elevation. No laryngeal penetration, glottic or subglottic aspiration identified. Hypopharyngeal structures appear normal without evidence of mass or diverticulum. There was no very mild cricopharyngeal achalasia. Dual and single contrast images of the esophagus demonstrate normal caliber, contour, and mucosal pattern. No evidence of stricture, mass, or ulcerations identified. Esophageal peristalsis was mildly disordered. Feline contraction pattern identified, in keeping with chronic reflux. Small type I hiatus hernia present. No significant gastroesophageal reflux was seen during the course of the examination. Dual contrast and single contrast images of the stomach demonstrated normal contour without evidence of gross mass or ulceration. Mild prominence of the area gastricae suggesting gastritis. No residual retained food on this examination. Small filling defects and small foci of contrast pooling previously seen are not well appreciated on today's exam. Normal rugal fold pattern. Contrast freely passed into the gastric antrum and duodenal bulb without delay. FLUOROSCOPY TIME: 2 minutes 38 seconds Number of Spot Images:8 Number of cines obtained: 7 DOSE AREA PRODUCT: 3843 uGy-m2 (microgray-meter squared) FL/FL barium swallow with air IMPRESSION: 1. No laryngeal penetration evident on today's examination. 2. Very mild cricopharyngeal achalasia again noted. 3. Mildly disordered esophageal peristalsis. Feline contraction pattern identified, in keeping with chronic reflux. 4. Small type I hiatus hernia. 5. Prominence of the gastric areae gastricae, findings suggesting gastritis. Electronically signed by: Shamir Olmedo MD 07/11/2025 11:54 AM EST Dictated By: Shamir Olmedo MD Signed By: <Electronically signed by Shamir Olmedo MD in [place]> 07/11/25 1154 DD/ 1025 TD/TT: 07/11/25 1055 Small Package And Bundle Sorter Clerk: [facility] External Provider IMG FLU OROSCOPY PROCEDURES Final Result * CT Abdomen Pelvis w/ Contrast (06/29/2025 7:48 PM EST) Anatomical Region Laterality Modality Body, Pelvis, Abdomen Computed T omography 06/29/2025 7:48 PM EST Narrative 06/29/2025 7:49 PM EST [address] [address] [address] Scan Report Signed Patient: Blaire Quiroz MR#: M [id number] : 1975 Acct:[id number] Age/Sex: 50 / F ADM Date: 06/29/25 Loc: HO.ED Attending Dr: Ordering Physician: Marco Lugo MD Date of Service: 06/29/25 Procedure(s): CT abdomen pelvis w IV con Accession Number(s): [id number] cc: Carmen Bertrand DO; Marco Lugo MD Report Number: [id number]: Total DLP = 1179.00 mGy-cm Reason for Exam: Left-sided abdominal pain, bloody stool CLINICAL HISTORY: Left-sided abdominal pain, bloody stool CT abdomen and pelvis with contrast Comparison: CT/REG/MO/SR - CT ABDOMEN PELVIS WITHOUT IV CONTRAST - 01/28/25 15:37 EDT Findings: Lung bases: Mild subsegmental atelectasis of the lung bases. Liver: No focal lesions. No biliary ductal dilatation. Patent portal vein. Gallbladder: Noninflamed gallbladder. Spleen: Normal Pancreas: No solid mass or main duct dilation. Adrenal glands: No nodules. Kidneys: No hydronephrosis. Right nonobstructing renal stones. No solid mass. Pelvic organs: Status post hysterectomy. The bladder is decompressed. Peritoneum and Gastrointestinal: Mild inflammation of the colon extending from the distal transverse colon to the rectum. The lumen of the bowel is overall decompressed. There is a 1.4 cm nodule in the left upper quadrant measuring 1.3 cm (4, 172). It is unchanged in size dating back to October 2023. No bowel obstruction, pneumoperitoneum, or ascites. Lymph nodes: No lymphadenopathy. Vessels: Atherosclerosis. Bones and soft tissues: Unremarkable. IMPRESSION: Infectious/inflammatory colitis extending from the mid transverse colon to the rectum. 1.3 cm nodule in the left upper quadrant which is unchanged dating back to October 2023 which may represent a chronically torsed appendage. Alternative, less likely, possibility is endometriosis if patient has recurrent upper abdominal pain. This document has been electronically signed by: Jyoti Garcia MD on 06/29/2025 19:48:23 Dictated By: Jyoti Garcia MD Signed By: <Electronically signed by Jyoti Garcia MD in OV> 06/29/251948 DD/ 47 TD/TT: 06/29/251947 Small Package And Bundle Sorter Clerk: Procedure Note Sergioter, Image - 06/29/[address] [place] [address] [address] Scan Report Signed Patient: Blaire Quiroz#: M [id number] : 1975Acct:[id number] Age/Sex: 50 / FADM Date: 06/29/25 Loc: HO.ED Attending Dr: Ordering Physician: Marco Lugo MD Date of Service: 06/29/25 Procedure(s): CT abdomen pelvis w IV con Accession Number(s): [id number] cc: Carmen Bertrand DO; Marco Lugo MD Report Number: [id number]: Total DLP = 1179.00 mGy-cm Reason for Exam: Left-sided abdominal pain, bloody stool CLINICAL HISTORY: Left-sided abdominal pain, bloody stool CT abdomen and pelvis with contrast Comparison: CT/REG/MO/SR - CT ABDOMEN PELVIS WITHOUT IV CONTRAST - 01/28/25 15:37 EDT Findings: Lung bases: Mild subsegmental atelectasis of the lung bases. Liver: No focal lesions. No biliary ductal dilatation. Patent portal vein. Gallbladder: Noninflamed gallbladder. Spleen: Normal Pancreas: No solid mass or main duct dilation. Adrenal glands: No nodules. Kidneys: No hydronephrosis. Right nonobstructing renal stones. No solid mass. Pelvic organs: Status post hysterectomy. The bladder is decompressed. Peritoneum and Gastrointestinal: Mild inflammation of the colon extending from the distal transverse colon to the rectum. The lumen of the bowel is overall decompressed. There is a 1.4 cm nodule in the left upper quadrant measuring 1.3 cm (4, 172). It is unchanged in size dating back to October 2023. No bowel obstruction, pneumoperitoneum, or ascites. Lymph nodes: No lymphadenopathy. Vessels: Atherosclerosis. Bones and soft tissues: Unremarkable. IMPRESSION: Infectious/inflammatory colitis extending from the mid transverse colon to the rectum. 1.3 cm nodule in the left upper quadrant which is unchanged dating back to October 2023 which may represent a chronically torsed appendage. Alternative, less likely, possibility is endometriosis if patient has recurrent upper abdominal pain. This document has been electronically signed by: Jyoti Garcia MD on 06/29/2025 19:48:23 Dictated By: Jyoti Garcia MD Signed By: <Electronically signed by Jyoti Garcia MD in OV> 06/29/251948 DD/ 47 TD/TT: 06/29/251947 Small Package And Bundle Sorter Clerk: [facility] External Provider IMG CT PROCEDURES Final Result * (ABNORMAL) Urinalysis, Complete, with Reflex to Culture (06/29/2025 6:18 PM EST) Color Urine Dark Yellow [facility] Appearance Urine Clear [facility] PH 6.0 5.0 - 9.0 [facility] Glucose Urine UA Negative Negative mg/dL [facility] Urine Blood Negative Negative [facility] Specific [place] - Urine 1.025 1.005 - 1.025 [facility] Urine Protein 30 (1+)(A) Neg-Trace mg/dL [facility] Urine Ketones Trace Negative mg/dL [facility] Nitrite Urine Negative Negative [facility] Leukocyte Esterase Urine Trace(A) Negative [facility] RBC Urine 0-2 0 - 2 /HPF [facility] Urine WBC 0-5 0 - 5 /HPF [facility] Urine Squamous Epithelial Cell 3-5 0 - 2 /HPF [facility] Urine Bacteria Trace None Seen [facility] Hyaline Casts, Urine 6-10 0 - 2 /LPF [facility] 06/29/2025 6:18 PM EST 06/29/2025 6:21 PM EST Narrative [facility] - 06/29/2025 6:38 PM EST Urine, Clean Catch Generic External Data Provider LAB URINE ORDERAB LES Final Result [facility] [address] [place] [address] [phone] * (ABNORMAL) CBC auto differential (06/29/2025 5:29 PM EST) White Blood Count 11.8(H) 4.8 - 10.8 X10*3/uL [facility] Red Blood Count 4.53 4.20 - 5.50 X10*6/uL [facility] Hemoglobin 14.1 12.0 - 16.0 g/dl [facility] Hematocrit 43.0 37.0 - 47.0 % [facility] Mean Corpuscular Volume 94.9 80.0 - 98.0 fL [facility] Mean Corpuscular Hemoglobin 31.1 27.0 - 33.0 pg [facility] Mean Corpuscular HGB Conc 32.8 31.0 - 35.0 g/dl [facility] Red Cell Distribution Width 14.1 11.0 - 16.0 % [facility] Platelet Count 265 160 - 400 X10*3/uL [facility] Mean Platelet Volume 9.5 9.4 - 12.3 fL [facility] Neutrophils Percent Auto 58.4 45 - 73 % [facility] Imm Gran Pct Auto 0.4 0.0 - 0.4 % [facility] Lymphocytes Percent Auto 31.4 20 - 40 % [facility] Monocytes Percent Auto 7.4 2 - 11 % [facility] Eosinophils Percent Auto 2.0 0 - 4 % [facility] Basophils Percent Auto 0.4 0 - 2 % [facility] NRBC Pct Auto 0.0 0.0 - 0.2 /100WBC [facility] Neutrophils Absolute Auto 6.9 2.0 - 8.3 x10*3/uL [facility] Imm Gran Abs Auto 0.05(H) 0.00 - 0.03 X10*3/uL [facility] Lymphocytes Absolute Auto 3.7 1.2 - 4.9 X10*3/uL [facility] Monocytes Absolute Auto 0.9 0.1 - 1.2 X10*3/uL [facility] Eosinophils Absolute Auto 0.2 0.0 - 0.4 X10*3/uL [facility] Basophils Absolute Auto 0.1 0.0 - 0.2 X10*3/uL [facility] NRBC Abs Auto 0.000 0.0 - 0.012 X10*3/uL [facility] 06/29/2025 5:29 PM EST 06/29/2025 5:33 PM EST Generic External Data Provider LAB BLOOD ORDERAB LES Final Result Performing Organization Address [facility]/ZIP Co de Phone Number [facility] [address] [place] [phone] * (ABNORMAL) C-reactive Protein (06/29/2025 5:29 PM EST) C Reactive Protein 3.29(H) < or = 0.50 mg/dL [facility] 06/29/2025 5:29 PM EST 06/29/2025 5:33 PM EST Generic External Data Provider LAB BLOOD ORDERAB LES Final Result Performing Organization Address [facility] Co de Phone Number [facility] [address] [place] [phone] * Magnesium (06/29/2025 5:29 PM EST) Magnesium 2.0 1.6 - 2.6 mg/dL [facility] 06/29/2025 5:29 PM EST 06/29/2025 5:33 PM EST Generic External Data Provider LAB BLOOD ORDERAB LES Final Result Performing Organization Address [facility] Co de Phone Number [facility] [address] [place] [phone] * Lipase (06/29/2025 5:29 PM EST) Lipase 8 - 78 U/L [facility] 06/29/2025 5:29 PM EST 06/29/2025 5:33 PM EST us Generic External Data Provider LAB BLOOD ORDERAB LES Final Result [facility] [address] [place] [phone] * (ABNORMAL) Comprehensive Metabolic Panel (06/29/2025 5:29 PM EST) Sodium 142 135 - 145 mmol/L [facility] Potassium 3.8 3.3 - 5.1 mmol/L [facility] Chloride 110(H) 96 - 108 mmol/L [facility] Carbon Dioxide 27 22 - 29 mmol/L [facility] Anion Gap 9(L) 12 - 20 [facility] Urea Nitrogen (BUN) 17(H) 9 - 16 mg/dL [facility] Creatinine, Serum 1.17 0.5 - 1.4 mg/dL [facility] Creatinine Clr Calc Pharmacy 89.6 [facility] Comment:Provided height and weight: 172.72 cm,148.2 kg.eGFR (calculated from the MDRD study equation) and eCrCl(calculated from the Cockcroft-Gault equation) are based ondifferent parameters and may not yield comparable results.If eCrCl result is absurd, please check patient'sheight/weight. Estimated Glomerular Filt Rate 49 [facility] Comment:Chronic Kidney Disea se: Estimated GFR < 60 mL/min/[id number] Kidney Disease: Estimated GFR < 15 mL/min/1.73m2 Glucose 100 60 - 115 mg/dL [facility] Calcium 9.5 8.4 - 10.2 mg/dL [facility] Bilirubin, Total 0.6 0.0 - 1.0 mg/dL [facility] Aspartate Amino Transferase 24 5 - 31 U/L [facility] Alanine Aminotransferase 22 0 - 31 U/L [facility] Total Protein 7.3 6.5 - 8.0 g/dL [facility] Albumin Level 3.8 3.5 - 5.0 g/dL [facility] Alkaline Phosphatase 110 39 - 117 U/L [facility] 06/29/2025 5:29 PM EST 06/29/2025 5:33 PM EST us Generic External Data Provider LAB BLOOD ORDERAB LES Final Result Performing Organization Address City/State/[facility] Co de Phone Number [facility] [address] [place] [phone] * BI Mammogram Screening Tomosynthesis Bilateral (06/07/2025 3:00 PM EDT) Anatomical Region Laterality Modality Breast Bilateral Mammography 06/07/2025 3:00 PM EDT Narrative 06/10/2025 11:46 AM EDT [facility] [address] [place] [address] Mammography Report Signed with Addenda Patient: Blaire Quiroz MR#: [id number] : 1975 Acct:[id number] Age/Sex: 50 / F ADM Date: 06/07/25 Loc: HO.MAMMO Attending Dr: Carmen Bertrand DO Ordering Physician: Carmen Bertrand DO Results: 0I ncomplete- Need Additional Imaging Evaluation Date of Service: 06/07/25 Follow Up: Additional Imagi ng Procedure(s): MM tomosynthesis screening BI Accession Number(s): [id number] cc: Carmen Bertrand DO Reason For Exam: [...] 06/10/25 1143 DD/ 1500 TD/TT: 06/07/25 1530 Small Package And Bundle Sorter Clerk: Procedure Note Donotuseinterpreter, Image - [facility]/20/[facility] [address] [place] [address] Mammography Report Signed with Addenda Patient: Blaire Quiroz#: M [id number] : 1975Acct:[id number] Age/Sex: 50 / FADM Date: 06/07/25 Loc: HO.MAMMO Attending Dr: Carmen Bertrand DO Ordering Physician: Carmen Bertrandults: 0I ncomplete- Need Additional Imaging Evaluation Date of Service: 06/07/25Follow Up: Additional Imagi ng Procedure(s): MM tomosynthesis screening BI Accession Number(s): [id number] cc: Carmen Bertrand DO Reason For Exam: Z12.31 ADDENDUM ADDENDUM #1 ADDENDUM: Due to a software issue this mammogram was reviewed a second time. The findings and recommendations remain the same. OVERALL ASSESSMENT: Category 0: Incomplete - Need additional Imaging Evaluation RECOMMENDATION: Additional Imaging required Electronically signed by: iCarra García DO 06/20/2025 02:47 PM EST RP [...] 06/10/25 1143 DD/ 1500 TD/TT: 06/07/25 1530 Small Package And Bundle Sorter Clerk: Carmen Bertrand DO IMG BI PROCEDURES Edited [...] - 06/01/2025 2:10 PM EDT UTO[employer] cup Lot#[id number] Exp. 05/24/26 Internal Pass Control Carmen Bertrand DO POINT OF CARE TEST ENTER/LANEY T ORDERABLES Final Result * (ABNORMAL) Cologuard?? colon cancer screening (08/31/2024 10:33 AM EST) Cologuard Result Positive( A) Negative 09/07/2024 10:16 AM EST [facility] (CLIA #:[id number]) Comment: POSITIVE TEST RESULT. A positive Cologuard [...] (Ashleigh Zhou al, N Engl J Med 2014;370(14):6767-1314.) Cologuard may produce a false negative or false positive result (no colorectal cancer or precancerous polyp present at colonoscopy follow up). A negative Cologuard test result does not guarantee the absence of CRC or advanced adenoma (pre-cancer). The current Cologuard screening interval is every 3 years. ([place] [employer] and U.S. Multi-Society Task Force). Cologuard performance data in a 10,000 patient pivotal study using colonoscopy as the reference method can be accessed at the following location: www.PokitDok/results. Additional description of the Cologuard test process, warnings and precautions can be found at www.[email or web address]. Stool specimen (specimen) 08/31/2024 10:33 AM EST 09/01/2024 11:06 AM EST us Carmen Bertrand DO LAB MOLECULAR DIAGNOSTICS OR DERABLES Final Result [facility] (CLIA #:[id number]) [place] [address], [place] [phone] * Hemoglobin A1c (08/24/2024 11:57 AM EST) Hemoglobin A1c 6.0 <6.0 % [facility] Comment:Hemoglobin A1C Refer ence Range Adults: 4.8 - 6.0 % Non diabetic: < 6.0 % Goal: < 7.0 %Additional Action Suggested: > 8.0 %Note: Hemoglobin A1c results are invalid for patients with abnormal amounts of HbF. Blood transfusions may impact the HbA1c concentration in the patient sample. Estimated Average Glucose 126 mg/dL [facility] Comment:eAG = Estimated ave rage glucose which is %A1C expressed asaverage glucose, using the formula of the I0D-IksshbsPlhjxul Glucose study (ADAG), Diabetes Care, Vol.31,#8,Mar. 2007 Blood Venous blood specimen / Unknown 08/24/2024 11:57 AM EST 08/24/2024 1:03 PM EST us Carmen Bertrand DO LAB BLOOD ORDERABLES Final R esult [facility] [address] [place] [phone] * (ABNORMAL) Lipid Panel, Standard (08/24/2024 11:57 AM EST) Triglycerides 82 <150 mg/dL [facility] Comment:Desirable Triglyceri de: less than 150 mg/dLBorderline High Triglyceride 150-199 mg/dLHigh Triglyceride: 200-499 mg/dLVery High Triglyceride: greater than or equal to 5OO mg/dL Cholesterol 136 <200 mg/dL [facility] Comment:Desirable Cholestero l: less than 200 mg/dLBorderline High Cholesterol: 200-239 mg/dLHigh Cholesterol: greater than 239 mg/dL LDL Cholesterol Calculated 81 <100 mg/dL [facility] Comment:Desirable LDL: less than 100 mg/dLNear Optimal/Above Optimal LDL: 110- 129 mg/dLBorderline High LDL: 130-159 mg/dLHigh LDL: 160-189 mg/dLVery High LDL: greater than or equal to 190 mg/dL HDL Cholesterol 39(L) >40 mg/dL [facility] Comment:Desirable HDL: great er than 40 mg/dL Note: This HDL assay may give artificially low results in patients with liver disease. Blood Venous blood specimen / Unknown 08/24/2024 11:57 AM EST 08/24/2024 1:03 PM EST Carmen Bertrand LAB BLOOD ORDERABLES Final R esult Performing Organization Address [facility]/ZIP Co de Phone Number [facility] [address] [place] [phone] * Hepatitis C Antibody with Reflex to HCV, RNA, Quantitative, Real-Time PCR (04/27/2024 2:02 PM EDT) Hepatitis C Antibody Nonreactive Nonreactive [facility] Comment:Antibodies to HCV no t detected; does not exclude early acuteHCV infection. Blood Venous blood specimen / Unknown 04/27/2024 2:02 PM EDT 04/27/2024 4:01 PM EDT [facility] BLOOD ORDERABLES Final R esult Performing Organization Address City/[facility] Co de Phone Number [facility] [address] [place] [phone] * HIV Ab/Ag ([facility]) (02/21/2023 2:35 PM EDT) HIV AB/AG Nonreactive Nonreactive [facility] Comment:HIV-1 p24 Ag and/or HIV-1/HIV-2 Ab not detected.A test result that is nonreactive does not exclude thepossibility of exposure to or infection with HIV-1 and/orHIV-2. Nonreactive results in this assay for individualswith prior exposure to HIV-1 and/or HIV-2 may be due toantigen and antibody levels that are below the limit ofdetection of this assay.The [employer] HIV Ag/Ab Combo assay result andsupplemental assay results should be interpreted inconjunction with the patient's clinical presentation,history and other laboratory results. If the results areinconsistent with clinical evidence, additional testing issuggested to confirm the result. 02/21/2023 2:35 PM EDT 02/21/2023 2:37 PM EDT [facility] External Provider LAB BLO OD ORDERABLES Final Result [facility] [address] [place] [phone] from Last 3 Months or Most Recently Relevant to Health Maintenance Insurance [facility] < [address] [place] [id number] Care Teams Rod And Tube Straightener Relationship Specialty Start Date End Date Carmen Bertrand DO [address] [place] [phone] PCP - General Family Medicine 08/18/18
--- OUTSIDE RECORDS SUMMARY | 2025-07-11 12:39 | XMS_ITS | Encounter Summary ---
Author Organization [employer] Address [address] [place] [address] [place] [address] Care Team Providers Care Clinical Therapist Name Role Phone Carmen Bertrand DO Primary Care Provider [phone] Encounter Details Date Type Department Care Team (Late st Contact Info) Description 09/09/2022 Orders Only [facility] MED & PEDS [address] [place] [address] Carmen Perez LPN Social History Tobacco Use [...] Description 09/07/2025 2:00 PM EST Clinical Support [facility]IC[facility] [address] [place] [address] Jessica Conway, RN documented as of this encounter Visit Diagnoses Not on filedocumented in this encounter Care Teams Clinical Therapist Relationship Specialty Start Date End Date Carmen Bertrand DO [address] [place] [address] PCP - General Family Medicine 08/18/18 documented as of this encounter
--- OUTSIDE RECORDS SUMMARY | 2025-07-11 12:39 | XMS_ITS | Encounter Summary ---
Author Organization [employer] Address [address] [place] [address] [place] [address] Care Team Providers Care Terrazzo Journeyman Name Role Phone Carmen Bertrand DO Primary Care Provider [phone] Encounter Details Date Type Department Care Team (Late st Contact Info) Description 08/13/2022 Orders Only [facility] CHC MED & PEDS [address] [place] [address] Carmen Perez LPN Social History Tobacco Use [...] Description 09/07/2025 2:00 PM EST Clinical Support [facility] MEDICINE [address] [place] [address] Jessica Conway, RN documented as of this encounter Visit Diagnoses Not on filedocumented in this encounter Care Teams Terrazzo Journeyman Relationship Specialty Start Date End Date Carmen Bertrand DO [address] [place] [phone] PCP - General Family Medicine 08/18/18 documented as of this encounter
--- OUTSIDE RECORDS SUMMARY | 2025-07-11 12:39 | XMS_ITS | Encounter Summary ---
Author Organization [employer] Address [address] [facility] 7 [place] [address] Care Team Providers Care Pbx Technician Name Role Phone Carmen Bertrand DO Primary Care Provider + [phone] Reason for Visit * Reason Comments Med Refill Encounter Details Date Type Department Care Team (Late st Contact Info) Description 03/16/2024 Refill [facility] CHC MED & PEDS [address] [place], [place] [phone] Carmen Bertrand DO [address] [place] [address] Chronic low back pain, unspecified back pain [...] Support [facility] MEDICINE [address] [place] [address] Jessica Conway, RULA documented as of this encounter Visit Diagnoses Diagnosis Chronic low back pain, unspecified back pain laterality, unspecified whether sciatica present documented in this encounter Additional Health Concerns Assessment Noted Time PHQ-9 Depression Total Score: 21 023 11:26 AM EST documented as of this encounter Care Teams Pbx Technician Relationship Specialty Start Date End Date Carmen Bertrand DO [address] [place] [address] PCP - General Family Medicine 08/18/18 documented as of this encounter
--- OUTSIDE RECORDS SUMMARY | 2025-07-11 12:39 | XMS_ITS | Encounter Summary ---
Author Organization [employer] Address [address] [place] [address] [place] [address] Care Team Providers Care Dental Office Assistant Name Role Phone Carmen Bertrand DO Primary Care Provider [phone] Encounter Details Date Type Department Care Team (Late st Contact Info) Description 09/09/2022 Orders Only [facility] MEDICINE [address] [place] [phone] Azul Albrecht LPN Social History Tobacco Use [...] Description 09/07/2025 2:00 PM EST Clinical Support [facility] [address] [place] [address] Jessica Conway, RULA documented as of this encounter Visit Diagnoses Not on filedocumented in this encounter Care Teams Dental Office Assistant Relationship Specialty Start Date End Date Carmen Bertrand DO [address] [place] [phone] PCP - General Family Medicine 08/18/18 documented as of this encounter
--- OUTSIDE RECORDS SUMMARY | 2025-07-11 12:39 | XMS_ITS | Encounter Summary ---
Author Organization [employer] Address [address] [place] [phone] Care Team Providers Care Rags Laborer Name Role Phone Carmen Bertrand DO Primary Care Provider + [phone] Reason for Visit * Reason Comments Med Refill Encounter Details Date Type Department Care Team (Late st Contact Info) Description 07/29/2022 Refill [facility] MEDICINE [address] [place], [place] [phone] Carmen Bertrand DO [address] [place] [address] Social History Tobacco Use Types Packs/Day Years [...] EST Clinical Support [facility] [address] [place] [phone] Jessica Conway RN documented as of this encounter Visit Diagnoses Not on filedocumented in this encounter Care Teams Rags Laborer Relationship Specialty Start Date End Date Carmen Bertrand DO [address] [place], [place] [phone] PCP - General Family Medicine 08/18/18 documented as of this encounter
--- OUTSIDE RECORDS SUMMARY | 2025-07-11 12:39 | XMS_ITS | Encounter Summary ---
Author Organization [employer] Address [address] [place] [address] [facility] [place] [address] Care Team Providers Care Lead Manufacturing Engineer Name Role Phone Carmen Bertrand DO Primary Care Provider + [phone] Reason for Visit * Reason Comments Med Refill Encounter Details Date Type Department Care Team ([facility] Contact Info) Description 10/18/2022 Refill [facility] MEDICINE [address] [place], [place] [phone] Carmen Bertrand DO [address] [place] [address] Social History Tobacco Use Types Packs/Day Years [...] Upcoming Encounters Date Type Department Care Team ([facility] st Contact Info) Description 09/07/2025 2:00 PM EST Clinical Support [facility] MEDICINE [address] [place] [address] Jessica Conway RN documented as of this encounter Visit Diagnoses Not on filedocumented in this encounter Additional Health Concerns Assessment Noted Time PHQ-9 Depression Total Score: 16 023 12:22 PM EST documented as of this encounter Care Teams Lead Manufacturing Engineer Relationship Specialty Start Date End Date Carmen Bertrand DO [address] [place] [address] PCP - General Family Medicine 08/18/18 documented as of this encounter
--- OUTSIDE RECORDS SUMMARY | 2025-07-11 12:40 | XMS_ITS | Encounter Summary ---
Author Organization [employer] Address [address] [place] [address] 7 [place] [address] Care Team Providers Care Laborer Construction [employer] Leak Gang Name Role Phone Elza Carmen Primary Care Provider + [phone] Reason for Visit * Reason Comments Med Refill Encounter Details Date Type Department Care Team ([facility] st Contact Info) Description 01/13/2024 Refill [facility] MEDICINE [address] [place] [address] Rox Sutton MD [address] [place] [address] Pain Social History Tobacco Use Types Packs/Day [...] Support [facility] MEDICINE [address] [place] [address] Jessica Conway RN documented as of this encounter Visit Diagnoses Diagnosis Pain Generalized pain documented in this encounter Additional Health Concerns Assessment Noted Time PHQ-9 Depression Total Score: 21 023 11:26 AM EST documented as of this encounter Care Teams Laborer Construction [employer] Relationship Specialty Start Date End Date Carmen Bertrand DO [address] [place] [address] PCP - General Family Medicine 08/18/18 documented as of this encounter
--- OUTSIDE RECORDS SUMMARY | 2025-07-11 12:40 | XMS_ITS | Encounter Summary ---
Author Organization [employer] Address [address] [place] [address] [place] [address] Care Team Providers Care Paint Booth Operator Name Role Phone Carmen Bertrand DO Primary Care Provider + [phone] Reason for Visit * Reason Onset Date Comments Hospital Follow-up 11/12/2024 Encounter Details Date Type Department Care Team ([facility] Contact Info) Description 11/12/2024 Telephone [facility] MEDICINE [address] [place] [address] Carmen Bertrand DO [address] [place], [place] [phone] Hospital Follow-up Social History Tobacco Use Types [...] from pt requesting a HDF appt. Hospital: [facility] Date of admission: 11/07/2024 Discharge date: 11/12/2024 Diagnosed: heart attack *Send message to [place] Clinical Care Coordinators documented in this encounter Plan of Treatment Upcoming Encounters Date Type Department Care Team (Late st Contact Info) Description 09/07/2025 2:00 PM EST Clinical Support [facility] MEDICINE [address] [place] [address] Jessica Conway, RULA documented as of this encounter Visit Diagnoses Not on filedocumented in this encounter Additional Health Concerns Assessment Noted Time PHQ-9 Depression Total Score: 22 024 11:00 AM EDT documented as of this encounter Care Teams Paint Booth Operator Relationship Specialty Start Date End Date Carmen Bertrand DO [address] [place] [address] PCP - General Family Medicine 08/18/18 documented as of this encounter
--- OUTSIDE RECORDS SUMMARY | 2025-07-11 12:40 | XMS_ITS | Encounter Summary ---
Author Organization [employer] Address [address] [place] [address] 7 [place] [address] Care Team Providers Care Supervisor Bonding Name Role Phone RajeevCarmen jones Primary Care Provider + [phone] Reason for Visit * Reason Comments Med Refill Encounter Details Date Type Department Care Team ([facility] st Contact Info) Description 02/03/2023 Refill [facility] MEDICINE [address] [place] [address] Leticia Ramirez MD [address] [place], [place] [phone] Nonintractable headache, unspecified chronicity pattern, unspecified headache [...] [facility] [address] [facility] [place] [address] Jessica Conway RN documented as of this encounter Visit Diagnoses Diagnosis Nonintractable headache, unspecified chronicity pattern, unspecified headache type documented in this encounter Additional Health Concerns Assessment Noted Time PHQ-9 Depression Total Score: 16 023 12:22 PM EST documented as of this encounter Care Teams Supervisor Bonding Relationship Specialty Start Date End Date Carmen Bertrand DO [address] [place] [address] PCP - General Family Medicine 08/18/18 documented as of this encounter
--- OUTSIDE RECORDS SUMMARY | 2025-07-11 12:40 | XMS_ITS | Encounter Summary ---
Author Organization [employer] Address [address] [place] [address] 7 [place] [address] Care Team Providers Care Poison Information Specialist Name Role Phone Carmen Bertrand DO Primary Care Provider + [phone] Reason for Visit * Reason Comments Med Refill Encounter Details Date Type Department Care Team ([facility] st Contact Info) Description 06/01/2025 Refill [facility] MEDICINE [address] [place], [place] [phone] Carmen Bertrand DO 230 [place], [place] [phone] Chronic low back pain, unspecified back pain [...] EST Clinical Support [facility] MEDICINE [address] [place] [address] Jessica Conway RN documented as of this encounter Visit Diagnoses Diagnosis Chronic low back pain, unspecified back pain laterality, unspecified whether sciatica present documented in this encounter Additional Health Concerns Assessment Noted Time PHQ-9 Depression Total Score: 22 024 11:00 AM EDT documented as of this encounter Care Teams Poison Information Specialist Relationship Specialty Start Date End Date Carmen Bertrand DO 230 [place] [address] PCP - General Family Medicine 08/18/18 documented as of this encounter
--- OUTSIDE RECORDS SUMMARY | 2025-07-11 12:40 | XMS_ITS | Encounter Summary ---
Author Organization [employer] Address [address] [place] [address] 7 [place] [address] Care Team Providers Care Foot Worker Name Role Phone Carmen Bertrand DO Primary Care Provider + [phone] Reason for Visit * Reason Comments Med Refill Encounter Details Date Type Department Care Team ([facility] st Contact Info) Description 02/24/2024 Refill [facility] MEDICINE [address] [place] [address] Carmen Bertrand DO 230 [place] [address] Social History Tobacco Use Types Packs/Day Years [...] Description 09/07/2025 2:00 PM EST Clinical Support [facility] MEDICINE [address] [place] [address] Jessica Conway RN documented as of this encounter Visit Diagnoses Not on filedocumented in this encounter Additional Health Concerns Assessment Noted Time PHQ-9 Depression Total Score: 21 023 11:26 AM EST documented as of this encounter Care Teams Foot Worker Relationship Specialty Start Date End Date Carmen Bertrand DO 230 [place] [address] PCP - General Family Medicine 08/18/18 documented as of this encounter
--- OUTSIDE RECORDS SUMMARY | 2025-07-11 12:40 | XMS_ITS | Encounter Summary ---
Author Organization [employer] Address [address] [facility] 7 [place] [address] Care Team Providers Care Title Inspector Name Role Phone Carmen Bertrand DO Primary Care Provider + [phone] Reason for Visit * Reason Comments Med Refill Encounter Details Date Type Department Care Team (Late st Contact Info) Description 05/12/2024 Refill [facility] [address] [place], [place] [phone] Carmen Bertrand DO 230 [place] [address] Chronic low back pain, unspecified back pain [...] Description 09/07/2025 2:00 PM EST Clinical Support [facility] MEDICINE 230 [place] [address] Jessica Conway RN documented as of this encounter Visit Diagnoses Diagnosis Chronic low back pain, unspecified back pain laterality, unspecified whether sciatica present documented in this encounter Additional Health Concerns Assessment Noted Time PHQ-9 Depression Total Score: 22 024 11:00 AM EDT documented as of this encounter Care Teams Title Inspector Relationship Specialty Start Date End Date Carmen Bertrand DO [address] [place] [address] PCP - General Family Medicine 08/18/18 documented as of this encounter
--- OUTSIDE RECORDS SUMMARY | 2025-07-11 12:40 | XMS_ITS | Encounter Summary ---
Author Organization [email or web address] Address [address] [place] [address] [place] [address] Care Team Providers Care Medical Billing Specialist Name Role Phone Carmen Bertrand DO Primary Care Provider + [phone] Reason for Visit * Reason Onset Date Comments ER Follow-up 06/29/2025 Encounter Details Date Type Department Care Team ([facility] st Contact Info) Description 06/29/2025 Telephone [facility] MEDICINE 230 [place] [address] Carmen Bertrand DO 230 [place], [place] [phone] ER Follow-up Social History Tobacco Use Types [...] ED visit on : Date: 06/28 Hospital: [facility] Seen for: Dizziness/ almost fainted Symptomatic No *if yes message should go to Triage Patient advised will forward to team nurse for follow up documented in this encounter Plan of Treatment Upcoming Encounters Date Type Department Care Team (Late st Contact Info) Description 09/07/2025 2:00 PM EST Clinical Support [facility] MEDICINE [address] [place] [address] Jessica Conway, RULA documented as of this encounter Visit Diagnoses Not on filedocumented in this encounter Additional Health Concerns Assessment Noted Time PHQ-9 Depression Total Score: 22 024 11:00 AM EDT documented as of this encounter Care Teams Medical Billing Specialist Relationship Specialty Start Date End Date Carmen Bertrand DO 230 [place] [address] PCP - General Family Medicine 08/18/18 documented as of this encounter
--- OUTSIDE RECORDS SUMMARY | 2025-07-11 12:40 | XMS_ITS | Encounter Summary ---
Author Organization [employer] Address [address] [place] [address] [facility] [place] [address] Care Team Providers Care Loan Services Professional Name Role Phone Carmen Bertrand DO Primary Care Provider + [phone] Reason for Visit * Reason Comments Med Refill Encounter Details Date Type Department Care Team ([facility] st Contact Info) Description 11/20/2022 Refill [facility] MEDICINE 230 [place], [place] [phone] Carmen Bertrand DO 230 [place], [place] [phone] Morbid obesity with body mass index (BMI) [...] 09/07/2025 2:00 PM EST Clinical Support [facility] MEDICINE [address] [place] [address] Jessica Conway, RN documented as of this encounter Visit Diagnoses Diagnosis Morbid obesity with body mass index (BMI) of 50.0 to 59.9 in adult (HCC) documented in this encounter Additional Health Concerns Assessment Noted Time PHQ-9 Depression Total Score: 16 023 12:22 PM EST documented as of this encounter Care Teams Loan Services Professional Relationship Specialty Start Date End Date Carmen Bertrand DO 230 [place] [address] PCP - General Family Medicine 08/18/18 documented as of this encounter
--- OUTSIDE RECORDS SUMMARY | 2025-07-11 12:41 | XMS_ITS | Encounter Summary ---
Author Organization [employer] Address [address] [place] [address] 7 [place] [address] Care Team Providers Care Pie Crust Mixer Name Role Phone Carmen Bertrand DO Primary Care Provider + [phone] Reason for Visit * Reason Comments Med Refill Encounter Details Date Type Department Care Team ([facility] st Contact Info) Description 01/26/2025 Refill [facility] MEDICINE 230 [place], [place] [phone] Carmen Bertrand DO 230 [place], [place] [phone] Social History Tobacco Use Types Packs/Day Years [...] 2:00 PM EST Clinical Support [facility] MEDICINE [address] [place] [address] Jessica Conway, RULA documented as of this encounter Visit Diagnoses Not on filedocumented in this encounter Additional Health Concerns Assessment Noted Time PHQ-9 Depression Total Score: 22 024 11:00 AM EDT documented as of this encounter Care Teams Pie Crust Mixer Relationship Specialty Start Date End Date Carmen Bertrand DO 230 [place] [address] PCP - General Family Medicine 08/18/18 documented as of this encounter
--- OUTSIDE RECORDS SUMMARY | 2025-07-11 12:41 | XMS_ITS | Encounter Summary ---
Author Organization [employer] Address [address] [place] [address] 7 [place] [address] Care Team Providers Care Shop Tech Name Role Phone Carmen Bertrand DO Primary Care Provider + [phone] Reason for Visit * Reason Comments Med Refill Encounter Details Date Type Department Care Team ([facility] st Contact Info) Description 02/04/2025 Refill [facility] MEDICINE 230 [place], [place] [phone] Carmen Bertrand DO 230 [place], [place] [phone] Chronic low back pain, unspecified back pain [...] EST Clinical Support [facility] MEDICINE [address] [place] [address] Jessica Conway RN documented as of this encounter Visit Diagnoses Diagnosis Chronic low back pain, unspecified back pain laterality, unspecified whether sciatica present documented in this encounter Additional Health Concerns Assessment Noted Time PHQ-9 Depression Total Score: 22 024 11:00 AM EDT documented as of this encounter Care Teams Shop Tech Relationship Specialty Start Date End Date Carmen Bertrand DO 230 [place] [address] PCP - General Family Medicine 08/18/18 documented as of this encounter
== END 2025-07-11 10:19 | disposition home or self-care (01) ==
LOC: HO.XRAY 10:18
PROVIDERS: PCP Family Medicine; Visit Provider Nurse Practitioner Family
DX: M89.8X1 Other specified disorders of bone, shoulder (principal); R13.10 Dysphagia, unspecified; K44.9 Diaphragmatic hernia without obstruction or gangrene
CPT/HCPCS: 73000; 74221

== ENCOUNTER → 2025-07-11 10:21 | Outpatient (BNV) | payer OTHER, SELFPAY ==
[2025-06-14 13:00] VITALS: BP 128/72; BP 140/60; BP 148/88; BMI 63.7
== END ==
PROVIDERS: PCP Family Medicine; Visit Provider Radiology Diagnostic Radiology
DX: K22.4 Dyskinesia of esophagus (principal); K44.9 Diaphragmatic hernia without obstruction or gangrene; M19.011 Primary osteoarthritis, right shoulder; M19.012 Primary osteoarthritis, left shoulder
CPT/HCPCS: 73000; 74221

== ENCOUNTER → 2025-08-16 00:23 | Outpatient (BNV) | payer OTHER, SELFPAY ==
[2025-06-14 13:00] VITALS: BP 128/72; BP 140/60; BP 148/88; BMI 63.7
== END ==
PROVIDERS: Emergency Provider Emergency Medicine; Visit Provider Internal Medicine
DX: R94.31 Abnormal electrocardiogram [ECG] [EKG] (principal); R07.9 Chest pain, unspecified
CPT/HCPCS: 93010

== ENCOUNTER 2025-08-16 02:07 | Emergency (ER) | payer OTHER, SELFPAY ==
[2025-06-14 13:00] VITALS: BP 128/72; BP 140/60; BP 148/88; BMI 63.7
--- NOTE | ~2025-08-16 | XR_ITS ---
CLINICAL HISTORY: chest pain and SOB 1 view chest x-ray. Comparison: None provided Findings: The lungs appear clear. There is no consolidation, effusion, or pneumothorax. Cardiomediastinal silhouette is within normal limits. IMPRESSION: No acute cardiopulmonary abnormality. This document has been electronically signed by: Fabian Moore MD on 08/16/2025 04:30:45
--- NOTE | 2025-08-16 00:23 | ECG_ITS ---
Test Reason : CP Blood Pressure : */* mmHG Vent. Rate : 75 BPM Atrial Rate : 75 BPM P-R Int : 186 ms QRS Dur : 78 ms QT Int : 416 ms P-R-T Axes : 57 23 32 degrees QTcB Int : 464 ms Normal sinus rhythm Septal infarct , age undetermined Abnormal ECG No previous ECGs available Referred By: Afshan Leal Electronically Signed By: NEIL MCKNIGHT
[2025-08-16 09:44] LABS: Resp Syncy Virus RNA Qual PCR NEGATIVE (Negative); SARS COV2 PCR INHOUSE NEGATIVE (Negative)
[2025-08-16 09:53] LABS: Hematocrit 39.1 % (37.0-47.0); Hemoglobin 13.0 g/dl (12.0-16.0); Imm Gran Abs Auto 0.05 X10*3/uL (0.00-0.03); Imm Gran Pct Auto 0.5 % (0.0-0.4); Lymphocytes Absolute Auto 3.6 X10*3/uL (1.2-4.9); MANUAL DIFF FLAG NO; Mean Corpuscular HGB Conc 33.2 g/dl (31.0-35.0); Mean Corpuscular Hemoglobin 31.1 pg (27.0-33.0); Mean Corpuscular Volume 93.5 fL (80.0-98.0); NRBC Abs Auto 0.000 X10*3/uL (0.0-0.012); NRBC Pct Auto 0.0 /100WBC (0.0-0.2); Platelet Count 297 X10*3/uL (160-400); Red Blood Count 4.18 X10*6/uL (4.20-5.50); White Blood Count 10.3 X10*3/uL (4.8-10.8)
[2025-08-16 10:08] LABS: INTERNATIONAL NORM RATIO 1.0 (0.9-1.1); Partial Thromboplastin Time 34.7 SEC (26.7-34.1); Prothrombin Time 11.8 SEC (11.2-13.5)
--- OUTSIDE RECORDS SUMMARY | 2025-08-16 11:21 | XMS_ITS | Encounter Summary ---
Author Organization [employer] Address [address] [place] [address] [place] [address] Care Team Providers Care Time Study Technician Name Role Phone Carmen Bertrand DO Primary Care Provider [phone] Encounter Details Date Type Department Care Team (Late st Contact Info) Description 08/13/2022 Orders Only [facility] [address] [place] [address] Carmen Perez LPN Social History Tobacco Use [...] 09/07/2025 2:00 PM EST Clinical Support [facility] [address] [place] [address] Jessica Conway, RN documented as of this encounter Visit Diagnoses Not on filedocumented in this encounter Care Teams Time Study Technician Relationship Specialty Start Date End Date Carmen Bertrand DO [address] [place] [phone] PCP - General Family Medicine 08/18/18 documented as of this encounter
--- OUTSIDE RECORDS SUMMARY | 2025-08-16 11:21 | XMS_ITS | Encounter Summary ---
Author Organization [employer] Address [address] [place] [address] Care Team Providers Care Fittings Finisher Name Role Phone Carmen Bertrand DO Primary Care Provider + [phone] Reason for Visit * Reason Comments Med Refill Encounter Details Date Type Department Care Team (Late st Contact Info) Description 07/29/2022 Refill [facility] [address] [place], [place] [phone] Carmen Bertrand DO [address] [place] [address] Social History Tobacco Use Types Packs/Day Years [...] Description 09/07/2025 2:00 PM EST Clinical Support [facility] [address] [place] [phone] Jessica Conway RN documented as of this encounter Visit Diagnoses Not on filedocumented in this encounter Care Teams Fittings Finisher Relationship Specialty Start Date End Date Carmen Bertrand DO [address] [place], [place] [phone] PCP - General Family Medicine 08/18/18 documented as of this encounter
--- OUTSIDE RECORDS SUMMARY | 2025-08-16 11:21 | XMS_ITS | Encounter Summary ---
Author Organization [employer] Address [address] [place] [address] [place] [address] [place] [address] Care Team Providers Care Ballistics Laboratory Gunsmith Name Role Phone Carmen Bertrand DO Primary Care Provider + [phone] Reason for Visit * Reason Onset Date Comments Hospital Follow-up 11/12/2024 Encounter Details Date Type Department Care Team ([facility] Contact Info) Description 11/12/2024 Telephone [facility] [address] [place] [address] Carmen Bertrand DO [address] [place], [place] [phone] Hospital Follow-up Social History Tobacco Use Types [...] from pt requesting a HDF appt. Hospital: [facility] Date of admission: 11/07/2024 Discharge date: 11/12/2024 Diagnosed: heart attack *Send message to [place] Clinical Care Coordinators documented in this encounter Plan of Treatment Upcoming Encounters Date Type Department Care Team (Late st Contact Info) Description 09/07/2025 2:00 PM EST Clinical Support [facility] [address] [place] [address] Jessica Conway, RULA documented as of this encounter Visit Diagnoses Not on filedocumented in this encounter Additional Health Concerns Assessment Noted Time PHQ-9 Depression Total Score: 22 024 11:00 AM EDT documented as of this encounter Care Teams Ballistics Laboratory Gunsmith Relationship Specialty Start Date End Date Carmen Bertrand DO [address] [place] [address] PCP - General Family Medicine 08/18/18 documented as of this encounter
--- OUTSIDE RECORDS SUMMARY | 2025-08-16 11:21 | XMS_ITS | Encounter Summary ---
Author Organization [employer] Address [address] [place] [address] 7 [place] [address] Care Team Providers Care Oxygen Equipment Preparer Name Role Phone Carmen Bertrand DO Primary Care Provider + [phone] Reason for Visit * Reason Comments Med Refill Encounter Details Date Type Department Care Team ([facility] st Contact Info) Description 02/24/2024 Refill [facility] [address] [place], [place] [phone] Carmen Bertrand DO [address] [place] [address] Social History Tobacco Use Types Packs/Day Years [...] 09/07/2025 2:00 PM EST Clinical Support [facility] [address] [place] [address] Jessica Conway RN documented as of this encounter Visit Diagnoses Not on filedocumented in this encounter Additional Health Concerns Assessment Noted Time PHQ-9 Depression Total Score: 21 023 11:26 AM EST documented as of this encounter Care Teams Oxygen Equipment Preparer Relationship Specialty Start Date End Date Carmen Bertrand DO [address] [place] [address] PCP - General Family Medicine 08/18/18 documented as of this encounter
--- OUTSIDE RECORDS SUMMARY | 2025-08-16 11:21 | XMS_ITS | Clinical Summary ---
Author Organization [employer] Address [address] [place] [address] 7 [place] [address] Care Team Providers Care Habitat Biologist Name Role Phone RajeevMaddie jonesCarmen Primary Care Provider + [phone] Allergies Active Allergy Reactions Criticality Noted Date [...] per week. 1 kit 07/23/20 24 Active hydroCHLOROthia zide 12.5 MG tablet Take 1 tablet by mouth Once per day. 07/26/20 24 Active ergocalciferol (Vitamin D2) 1.25 MG (07822 UT) capsule Take 1 capsule (1.25 mg) [...] mouth Once per day. 03/14/20 25 Active naloxone (Narcan) 4 mg/0.1 mL nasal sprayIndication s:Chronic pain of both knees FOR SUSPECTED OPIOID OVERDOSE. SPRAY 0.1mL IN ONE NOSTRIL. REPEAT IN ALTERNATE NOSTRIL 2-3 MINUTES IF NEEDED. SEEK MEDICAL ATTENTION IMMEDIATELY EVEN IF PATIENT RESPONDS. 2 each 3 5 1:06 PM EST 06/09/20 25 Active Tirzepatide-Brandon ght Management (Zepbound) 12.5 MG/0.5ML solution auto-injector Inject 0.5 mL (12.5 mg) under the skin 1 (one) time per week. 2 mL 3 5 3:33 PM EST 07/08/20 25 Active docusate sodium (Colace) 100 MG capsule [...] EVERY DAY NEEDED 45 g 1 07/25/20 Active pantoprazole (Protonix) 40 MG EC tablet [...] 3:08 PM EST 08/02/20 25 2025 Active baclofen (Lioresal) 10 MG tabletIndicatio ns:Chronic low back pain, unspecified back pain laterality, unspecified whether sciatica present TAKE 1 TABLET BY MOUTH THREE TIMES DAILY IN THE MORNING, AT NOON, AND AT BEDTIME NEEDED FOR MUSCLE SPASMS 60 tablet 2 08/04/20 25 Active benzoyl peroxide (PanOxyl Foaming Wash) 10 % external washIndications :Folliculitis Apply topically Once per day. 227 g 2 08/13/20 24 2024 metFORMIN XR (Glucophage-XR) 500 MG 24 hr tablet Take 2 tablets (1,000 mg) by mouth with evening meal. 180 tablet 3 08/13/20 24 2024 Discontinued(R eorder (will not trigger notification to Pharmacy)) metroNIDAZOLE (Metrogel) 0.75 % gelIndications: Melasma APPLY TOPICALLY TO THE AFFECTED AREA(S) OF THE FACE EVERY DAY NEEDED 45 g 1 5 1:06 PM EST 04/28/202024 Discontinued pantoprazole (ProtoNix) 20 MG EC tablet TAKE 1 TABLET BY MOUTH EVERY DAY 30 MINUTES BEFORE A MEAL 05/03/202024 Discontinued(D ose adjustment) baclofen (Lioresal) 10 MG tabletIndicatio ns:Chronic low back pain, unspecified back pain laterality, unspecified whether sciatica present Take 1 tablet (10 mg) by mouth if needed in the morning, at noon, and at bedtime for muscle spasms. 60 tablet 2 3:33 PM EST 06/07/202024 Discontinued traMADol (Ultram) 50 MG tabletIndicatio ns:Chronic low back pain, unspecified back pain laterality, unspecified whether sciatica present Take 1 tablet (50 mg) by mouth every 8 (eight) hours if needed for severe pain for up to 28 days. Do not start before July 06, 2025. 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 Morbid obesity with BMI of 50.0-59.9, adult (CMS /HCC) 06/07/2025 Long-term current use of opiate analgesic [...] time Coronary arteriosclerosis 02/21/2023 BMI 50.0-59.9, adult ([facility]) 09/19/2022 06/07/2025 Class 3 severe obesity due [...] Encounters Date Type Department Care Team Description 08/04/2025 Refill [facility] [address] [place] [phone] Carmen Bertrand DO Chronic low back pain, unspecified back pain laterality, unspecified whether sciatica present 08/02/2025 2:00 PM EST Clinical Support [address] [address] 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 Rios, division director right shoulder pain (Primary Dx); Chronic low back pain, unspecified back pain laterality, unspecified whether sciatica present 08/02/2025 Travel 07/29/2025 Telephone [facility] [address] [place] [address] Carmen Bertrand DO Nurse Triage 07/29/2025 Refill [facility] [address] [place] [phone] Carmen Bertrand DO Chronic low back pain, unspecified back pain laterality, unspecified whether sciatica present 07/25/2025 Telephone [facility] [address] [place] [address] Carmen Bertrand DO telephone call 07/23/2025 Refill [facility] [address] [place] [address] Carmen Bertrand DO Melasma 07/22/2025 Refill [facility] [address] [place] [address] Carmen Bertrand DO 07/21/2025 Telephone [facility] [address] [place] [phone] Carmen Bertrand DO Prior Authorization (DME: [employer] Care Request); Durable Medical Equipment 07/18/2025 Telephone [facility] [address] [place] [phone] Carmen Bertrand DO Results 07/08/2025 11:45 AM EST Office Visit [facility] [address] [place] [phone] Carmen Bertrand DO Ischemic colitis ([facility]) (Primary Dx); Syncope, unspecified syncope type; Chronic constipation; Chronic right shoulder pain; Clavicle pain; Leukocytosis, unspecified type; Morbid obesity with BMI of 50.0-59.9, adult (CMS/HCC) (HCC); Encounter for immunization 07/05/2025 Refill [facility] [address] [place] [address] Jessica Conway RN Chronic low back pain, unspecified back pain laterality, unspecified whether sciatica present 07/05/2025 Refill [facility] [address] [place] [address] Carmen Bertrand DO 06/29/2025 Orders Only GENERIC EXTERNAL DATA DEPARTMENT Provider, Generic External Data 06/29/[address] [facility] [address] [place] [address] Carmen Bertrand DO Nurse Triage 06/29/[address] [facility] [address] [place] [address] Carmen Bertrand DO ER Follow-up 06/08/2025 Refill [facility] [address] [place], [place] [phone] Catracho Barton MD Chronic pain of both knees 06/07/2025 Orders Only [facility] [address] [place], [place] [phone] Carmen Bertrand DO 06/06/2025 Refill [facility] [address] [place] [address] Cramen Bertrand DO Chronic low back pain, unspecified back pain laterality, unspecified whether sciatica present 06/01/2025 2:00 PM EDT Clinical Support [address] [address] Jessica Conway RN Long-term current use of opiate analgesic (Primary Dx) 06/01/2025 Travel 06/01/[address] [address] Carmen Bertrand DO Chronic low back pain, unspecified back pain laterality, unspecified whether sciatica present 05/31/2025 Telephone [facility] [address] [place] [address] Carmen Bertrand DO telephone call; Prior Authorization ([facility] Caremark Form: Zepbound) from Last 3 Months Immunizations Immunization Administration [...] Support [facility] [address] [place] [phone] Jessica Conway, RULA Health Maintenance Due Date [...] AM EST Narrative 07/11/2025 11:57 AM EST [address] [address] XRay Report Signed Patient: Blaire Quiroz MR#: Jamarcus [id number] : 1975 Acct:[id number] Age/Sex: 50 / F ADM Date: 07/11/25 Loc: HOSYED Attending Dr: Rosy Carrillo CNP Ordering Physician: Carmen Bertrand DO Date of Service: 07/11/25 Procedure(s): XR clavicle LT Accession Number(s): [id number] cc: Carmen Bertrand DO Reason for Exam: [...] 07/11/25 1154 DD/ 1034 TD/TT: 07/11/25 1045 Blister Packaging Machine Operator: Procedure Note Donotuseinterpreter, Image - 07/11/[address] [address] XRay Report Signed Patient: Blaire QuirozMR#: Jamarcus [id number] : 1975Acct:[id number] Age/Sex: 50 / FADM Date: 07/11/25 Loc: ADALBERTO Attending Dr: Rosy Carrillo CNP Ordering Physician: Carmen Bertrand DO Date of Service: 07/11/25 Procedure(s): XR clavicle LT Accession Number(s): [id number] cc: Carmen Bertrand DO Reason for Exam: [...] 07/11/25 1154 DD/ 1034 TD/TT: 07/11/25 1045 Blister Packaging Machine Operator: us Carmen Bertrand DO IMG XR PROCEDURES Final Resu lt * XR Clavicle Right (07/11/2025 10:31 AM EST) Anatomical Region Laterality Modality Body, Clavicle Right Radiographic Alejandrina ging 07/11/2025 10:3 1 AM EST Narrative 07/11/2025 11:57 AM EST [address] [address] XRay Report Signed Patient: Blaire Quiroz MR#: M [id number] : 1975 Acct:[id number] Age/Sex: 50 / F ADM Date: 07/11/25 Loc: ADALBERTO Attending Dr: Rosy Carrillo CNP Ordering Physician: Carmen Bertrand DO Date of Service: 07/11/25 Procedure(s): XR clavicle RT Accession Number(s): [id number] cc: Carmen Bertrand DO Reason for Exam: [...] 07/11/25 1154 DD/ 1031 TD/TT: 07/11/25 1045 Blister Packaging Machine Operator: Procedure Note Donotuseinterpreter, Image - 07/11/2025 [place] [address] XRay Report Signed Patient: Blaire Quiroz#: M [id number] : 1975Acct:[id number] Age/Sex: 50 / FADM Date: 07/11/25 Loc: ADALBERTO Attending Dr: Rosy Carrillo [facility] Ordering Physician: Carmen Bertrand DO Date of Service: 07/11/25 Procedure(s): XR clavicle RT Accession Number(s): [id number] cc: Carmen Bertrand DO Reason for Exam: [...] 07/11/25 1154 DD/ 1031 TD/TT: 07/11/25 1045 Blister Packaging Machine Operator: us Carmen Bertrand DO IMG XR PROCEDURES Final Resu lt * FL Esophagus Barium Swallow w/Air (07/11/2025 10:25 AM EST) Anatomical Region Laterality Modality Head, Neck Radiographic Alejandrina ging 07/11/2025 10:2 5 AM EST Narrative 07/11/2025 11:56 AM EST [place] [address] Fluoroscopy Report Signed Patient: Blaire Quiroz MR#: M [id number] : 1975 Acct:[id number] Age/Sex: 50 / F ADM Date: 07/11/25 Loc: HO.XRAY Attending Dr: Rosy Carrillo CNP Ordering Physician: Rosy Crarillo CNP Date of Service: 07/11/25 Procedure(s): FL barium swallow with air Accession Number(s): [id number] cc: Carmen Bertrand DO; Rosy Carrillo CNP [...] by: Shamir Olmedo MD 07/11/2025 11:54 AM [facility] Dictated By: Shamir Olmedo MD Signed By: <Electronically signed by Shamir Olmedo MD in OV> 07/11/25 1154 DD/ 1025 TD/TT: 07/11/25 1055 Blister Packaging Machine Operator: Procedure Note Donotuseinterpreter, Image - 07/11/2025 [place] [address] Fluoroscopy Report Signed Patient: Blaire Quiroz#: M [id number] : 1975Acct:[id number] Age/Sex: 50 / FADM Date: 07/11/25 Loc: HO.XRAY Attending Dr: Rosy Carrillo CNP Ordering Physician: Rosy Carrillo CNP Date of Service: 07/11/25 Procedure(s): FL barium swallow with air Accession Number(s): [id number] cc: Carmen Bertrand DO; Rosy Carrillo CNP [...] Shamir Olmedo MD 07/11/2025 11:54 AM EST RP Dictated By: Shamir Olmedo MD Signed By: <Electronically signed by Shamir Olmedo MD in OV> 07/11/25 1154 DD/ 1025 TD/TT: 07/11/25 1055 Blister Packaging Machine Operator: [facility] External Provider IMG FLU OROSCOPY PROCEDURES Final Result * CT Abdomen Pelvis w/ Contrast (06/29/2025 7:48 PM EST) Anatomical Region Laterality Modality Body, Pelvis, Abdomen Computed T omography 06/29/2025 7:48 PM EST Narrative 06/29/2025 7:49 PM EST [place] [address] CT Scan Report Signed Patient: Blaire Quiroz MR#: M [id number] : 1975 Acct:[id number] Age/Sex: 50 / F ADM Date: 06/29/25 Loc: .ED Attending Dr: Ordering Physician: Marco Lugo MD Date of Service: 06/29/25 Procedure(s): CT abdomen pelvis w IV con Accession Number(s): [id number] cc: Carmen Bertrand DO; Marco Lugo MD Report Number: [id number]: Total DLP = 1179.00 mGy-cm Reason for Exam: Left-sided abdominal pain, bloody stool CLINICAL HISTORY: Left-sided abdominal pain, bloody stool CT abdomen and pelvis with contrast Comparison: CT/REG/NE/SR - CT ABDOMEN PELVIS WITHOUT IV CONTRAST [...] in OV> 06/29/251948 DD/ 47 TD/TT: 06/29/251947 Blister Packaging Machine Operator: Procedure Note Donotuseinterpreter, Image - 06/29/[address] [place] [address] [address] Scan Report Signed Patient: Blaire Quiroz#: M [id number] : 1975Acct:[id number] Age/Sex: 50 / FADM Date: 06/29/25 Loc: HO.ED Attending Dr: Ordering Physician: Marco Lugo MD Date of Service: 06/29/25 Procedure(s): CT abdomen pelvis w IV con Accession Number(s): [id number] cc: Carmen Bertrand DO; Marco Lugo MD Report Number: [id number]: Total DLP = 1179.00 mGy-cm Reason for Exam: Left-sided abdominal pain, bloody stool CLINICAL HISTORY: Left-sided abdominal pain, bloody stool CT abdomen and pelvis with contrast Comparison: CT/REG/NE/SR - CT ABDOMEN PELVIS WITHOUT IV CONTRAST [...] in OV> 06/29/251948 DD/ 47 TD/TT: 06/29/251947 Blister Packaging Machine Operator: [facility] External Provider IMG CT PROCEDURES Final Result * (ABNORMAL) Urinalysis, Complete, with Reflex to Culture (06/29/2025 6:18 PM EST) Color Urine Dark Yellow [facility] Appearance Urine Clear [facility] PH 6.0 5.0 - 9.0 [facility] Glucose Urine UA Negative Negative mg/dL [facility] Urine Blood Negative Negative [facility] Specific [place] - Urine 1.025 1.005 - 1.025 [facility] Urine Protein 30 (1+)(A) Neg-Trace mg/dL [facility] Urine Ketones Trace Negative mg/dL [facility] Nitrite Urine Negative Negative [facility] Leukocyte Esterase Urine Trace(A) Negative [facility] RBC Urine 0-2 0 - 2 /HPF [facility] Urine WBC 0-5 0 - 5 /HPF [facility] Urine Squamous Epithelial Cell 3-5 0 - 2 /HPF [facility] Urine Bacteria Trace None Seen [facility] Hyaline Casts, Urine 6-10 0 - 2 /LPF [facility] 06/29/2025 6:18 PM EST 06/29/2025 6:21 PM EST Narrative [facility] - 06/29/2025 6:38 PM EST Urine, Clean Catch us Generic External Data Provider LAB URINE ORDERAB LES Final Result Performing Organization Address City/State/[facility] Co de Phone Number [facility] [address] [place] [phone] * (ABNORMAL) CBC auto differential (06/29/2025 5:29 PM EST) White Blood Count 11.8(H) 4.8 - 10.8 X10*3/uL [facility] Red Blood Count 4.53 4.20 - 5.50 X10*6/uL [facility] Hemoglobin 14.1 12.0 - 16.0 g/dl [facility] Hematocrit 43.0 37.0 - 47.0 % [facility] Mean Corpuscular Volume 94.9 80.0 - 98.0 fL [facility] Mean Corpuscular Hemoglobin 31.1 27.0 - 33.0 pg [facility] Mean Corpuscular HGB Conc 32.8 31.0 - 35.0 g/dl [facility] Red Cell Distribution Width 14.1 11.0 - 16.0 % [facility] Platelet Count 265 160 - 400 X10*3/uL [facility] Mean Platelet Volume 9.5 9.4 - 12.3 fL [facility] Neutrophils Percent Auto 58.4 45 - 73 % [facility] Imm Gran Pct Auto 0.4 0.0 - 0.4 % [facility] Lymphocytes Percent Auto 31.4 20 - 40 % [facility] Monocytes Percent Auto 7.4 2 - 11 % [facility] Eosinophils Percent Auto 2.0 0 - 4 % [facility] Basophils Percent Auto 0.4 0 - 2 % [facility] NRBC Pct Auto 0.0 0.0 - 0.2 /100WBC [facility] Neutrophils Absolute Auto 6.9 2.0 - 8.3 x10*3/uL [facility] Imm Gran Abs Auto 0.05(H) 0.00 - 0.03 X10*3/uL [facility] Lymphocytes Absolute Auto 3.7 1.2 - 4.9 X10*3/uL [facility] Monocytes Absolute Auto 0.9 0.1 - 1.2 X10*3/uL [facility] Eosinophils Absolute Auto 0.2 0.0 - 0.4 X10*3/uL [facility] Basophils Absolute Auto 0.1 0.0 - 0.2 X10*3/uL [facility] NRBC Abs Auto 0.000 0.0 - 0.012 X10*3/uL [facility] 06/29/2025 5:29 PM EST 06/29/2025 5:33 PM EST us Generic External Data Provider LAB BLOOD ORDERAB LES Final Result [facility] [address] [place] [phone] * (ABNORMAL) C-reactive Protein (06/29/2025 5:29 PM EST) C Reactive Protein 3.29(H) < or = 0.50 mg/dL [facility] 06/29/2025 5:29 PM EST 06/29/2025 5:33 PM EST us Generic External Data Provider LAB BLOOD ORDERAB LES Final Result Performing Organization Address [facility] Co de Phone Number [facility] [address] [place] [phone] * Magnesium (06/29/2025 5:29 PM EST) Magnesium 2.0 1.6 - 2.6 mg/dL [facility] 06/29/2025 5:29 PM EST 06/29/2025 5:33 PM EST us Generic External Data Provider LAB BLOOD ORDERAB LES Final Result Performing Organization Address [facility] Co de Phone Number [facility] [address] [place] [phone] * Lipase (06/29/2025 5:29 PM EST) Lipase 11 8 - 78 U/L [facility] 06/29/2025 5:29 PM EST 06/29/2025 5:33 PM EST us Generic External Data Provider LAB BLOOD ORDERAB LES Final Result Performing Organization Address [facility] de Phone Number [facility] [address] [place] [phone] * (ABNORMAL) Comprehensive Metabolic Panel (06/29/2025 5:29 PM EST) Sodium 142 135 - 145 mmol/L [facility] Potassium 3.8 3.3 - 5.1 mmol/L [facility] Chloride 110(H) 96 - 108 mmol/L [facility] Carbon Dioxide 27 22 - 29 mmol/L [facility] Anion Gap 9(L) 12 - 20 [facility] Urea Nitrogen (BUN) 17(H) 9 - 16 mg/dL [facility] Creatinine, Serum 1.17 0.5 - 1.4 mg/dL [facility] Creatinine Clr Calc Pharmacy 89.6 [facility] Comment:Provided height and weight: 172.72 cm,148.2 kg.eGFR (calculated from the MDRD study equation) and eCrCl(calculated from the Cockcroft-Gault equation) are based ondifferent parameters and may not yield comparable results.If eCrCl result is absurd, please check patient'sheight/weight. Estimated Glomerular Filt Rate 49 [facility] Comment:Chronic Kidney Disea se: Estimated GFR < 60 mL/min/1.78q2Ikedwl Kidney Disease: Estimated GFR < 15 mL/min/1.73m2 Glucose 100 60 - 115 mg/dL [facility] Calcium 9.5 8.4 - 10.2 mg/dL [facility] Bilirubin, Total 0.6 0.0 - 1.0 mg/dL [facility] Aspartate Amino Transferase 24 5 - 31 U/L [facility] Alanine Aminotransferase 22 0 - 31 U/L [facility] Total Protein 7.3 6.5 - 8.0 g/dL [facility] Albumin Level 3.8 3.5 - 5.0 g/dL [facility] Alkaline Phosphatase 110 39 - 117 U/L [facility] 06/29/2025 5:29 PM EST 06/29/2025 5:33 PM EST us Generic External Data Provider LAB BLOOD ORDERAB LES Final Result [facility] [address] [facility] [place] [phone] [phone] * BI Mammogram Screening Tomosynthesis Bilateral (06/07/2025 3:00 PM EDT) Anatomical Region Laterality Modality Breast Bilateral Mammography 06/07/2025 3:00 PM EDT Narrative 06/10/2025 11:46 AM EDT [facility] [address] [place] [address] Mammography Report Signed with Addenda Patient: Blaire Quiroz MR#: M [id number] : 1975 Acct:[id number] Age/Sex: 50 / F ADM Date: 06/07/25 Loc: HO.MAMMO Attending Dr: Carmen Bertrand DO Ordering Physician: Carmen Bertrand DO Results: 0I ncomplete- Need Additional Imaging Evaluation Date of Service: 06/07/25 Follow Up: Additional Imagi ng Procedure(s): MM tomosynthesis screening BI Accession Number(s): [id number] cc: Carmen Bertrand DO Reason For Exam: [...] 06/10/25 1143 DD/ 1500 TD/TT: 06/07/25 1530 Blister Packaging Machine Operator: Procedure Note Donotuseinterpreter, Image - [facility] [address] [place], [place] [address] Mammography Report Signed with Tracy Patient: Christianne Quiroz#: M [id number] : 1975Acct:[id number] Age/Sex: 50 / FADM Date: 06/07/25 Loc: HO.MAMMO Attending Dr: Carmen Bertrand DO Ordering Physician: Carmen Bertrandults: 0I ncomplete- Need Additional Imaging Evaluation Date of Service: 06/07/25Follow Up: Additional Imagi ng Procedure(s): MM tomosynthesis screening BI Accession Number(s): [id number] cc: Carmen Bertrand DO Reason For Exam: [...] 06/10/25 1143 DD/ 1500 TD/TT: 06/07/25 1530 Blister Packaging Machine Operator: Carmen Bertrand DO IMG BI PROCEDURES Edited [...] / Unknown 06/01/2025 2:10 PM EDT Narrative Zoraida, Jessica, RN - 06/01/2025 2:10 PM EDT [employer]TO[employer] cup Lot#[id number] Exp. 05/24/26 Internal Pass Control Carmen Bertrand DO POINT OF CARE TEST ENTER/LANEY T ORDERABLES Final Result * (ABNORMAL) Cologuard?? colon cancer screening (08/31/2024 10:33 AM EST) Cologuard Result Positive( A) Negative 09/07/2024 10:16 AM EST [facility] (CLIA #:[id number]) Comment: POSITIVE TEST RESULT. A positive Cologuard [...] (Ashleigh Zhou al, N Engl J Med 2014;370(14):6292-1103.) Cologuard may produce a false negative or false positive result (no colorectal cancer or precancerous polyp present at colonoscopy follow up). A negative Cologuard test result does not guarantee the absence of CRC or advanced adenoma (pre-cancer). The current Cologuard screening interval is every 3 years. ([employer] and U.S. Multi-Society Task Force). Cologuard performance data in a 10,000 patient pivotal study using colonoscopy as the reference method can be accessed at the following location: www.MiArch.Alltuition/results. Additional description of the Cologuard test process, warnings and precautions can be found at www.cologSutherland Global Servicesrd.com. Stool specimen (specimen) 08/31/2024 10:33 AM EST 09/01/2024 11:06 AM EST Carmen Bertrand DO LAB MOLECULAR DIAGNOSTICS OR DERABLES Final Result [facility] (CLIA #:[id number]) [place] [address], * Hemoglobin A1c (08/24/2024 11:57 AM EST) Hemoglobin A1c 6.0 <6.0 % [facility] Comment:Hemoglobin A1C Refer ence Range Adults: 4.8 - 6.0 % Non diabetic: < 6.0 % Goal: < 7.0 %Additional Action Suggested: > 8.0 %Note: Hemoglobin A1c results are invalid for patients with abnormal amounts of HbF. Blood transfusions may impact the HbA1c concentration in the patient sample. Estimated Average Glucose 126 mg/dL [facility] Comment:eAG = Estimated ave rage glucose which is %A1C expressed asaverage glucose, using the formula of the E1Q-MfzxwtyOgdoibd Glucose study (ADAG), Diabetes Care, Vol.31,#8,Mar. 2007 Blood Venous blood specimen / Unknown 08/24/2024 11:57 AM EST 08/24/2024 1:03 PM EST Carmen Bertrand DO LAB BLOOD ORDERABLES Final R esult [facility] [address] [place] [phone] * (ABNORMAL) Lipid Panel, Standard (08/24/2024 11:57 AM EST) Triglycerides 82 <150 mg/dL [facility] Comment:Desirable Triglyceri de: less than 150 mg/dLBorderline High Triglyceride 150-199 mg/dLHigh Triglyceride: 200-499 mg/dLVery High Triglyceride: greater than or equal to 5OO mg/dL Cholesterol 136 <200 mg/dL [facility] Comment:Desirable Cholestero l: less than 200 mg/dLBorderline High Cholesterol: 200-239 mg/dLHigh Cholesterol: greater than 239 mg/dL LDL Cholesterol Calculated 81 <100 mg/dL [facility] Comment:Desirable LDL: less than 100 mg/dLNear Optimal/Above Optimal LDL: 110- 129 mg/dLBorderline High LDL: 130-159 mg/dLHigh LDL: 160-189 mg/dLVery High LDL: greater than or equal to 190 mg/dL HDL Cholesterol 39(L) >40 mg/dL [facility] Comment:Desirable HDL: great er than 40 mg/dL Note: This HDL assay may give artificially low results in patients with liver disease. Blood Venous blood specimen / Unknown 08/24/2024 11:57 AM EST 08/24/2024 1:03 PM EST Carmen Bertrand DO LAB BLOOD ORDERABLES Final R esult [facility] [address] [place] [address] [phone] * Hepatitis C Antibody with Reflex to HCV, RNA, Quantitative, Real-Time PCR (04/27/2024 2:02 PM EDT) Hepatitis C Antibody Nonreactive Nonreactive [facility] Comment:Antibodies to HCV no t detected; does not exclude early acuteHCV infection. Blood Venous blood specimen / Unknown 04/27/2024 2:02 PM EDT 04/27/2024 4:01 PM EDT Carmen Bertrand DO LAB BLOOD ORDERABLES Final R esult Performing Organization Address [facility]/ZIP Co de Phone Number [facility] [address] [place] [address] [phone] * HIV Ab/Ag (BHAVIN MCKEON) (02/21/2023 2:35 PM EDT) HIV AB/AG Nonreactive Nonreactive [facility] Comment:HIV-1 p24 Ag and/or HIV-1/HIV-2 Ab not detected.A test result that is nonreactive does not exclude thepossibility of exposure to or infection with HIV-1 and/orHIV-2. Nonreactive results in this assay for individualswith prior exposure to HIV-1 and/or HIV-2 may be due toantigen and antibody levels that are below the limit ofdetection of this assay.The [employer] HIV Ag/Ab Combo assay result andsupplemental assay results should be interpreted inconjunction with the patient's clinical presentation,history and other laboratory results. If the results areinconsistent with clinical evidence, additional testing issuggested to confirm the result. 02/21/2023 2:35 PM EDT 02/21/2023 2:37 PM EDT [facility] External Provider LAB BLO OD ORDERABLES Final Result Performing Organization Address [facility] Co de Phone Number [facility] [address] [place] [address] [phone] from Last 3 Months or Most Recently Relevant to Health Maintenance Insurance [facility] < 65 Care Teams Habitat Biologist Relationship Specialty Start Date End Date Carmen Bertrand DO [address] [place] [address] PCP - General Family Medicine 08/18/18
--- OUTSIDE RECORDS SUMMARY | 2025-08-16 11:21 | XMS_ITS | Encounter Summary ---
Author Organization [employer] Address [address] [place] [address] 7 [place] [address] Care Team Providers Care Rn New Graduate Name Role Phone Carmen Bertrand DO Primary Care Provider +[phone] Reason for Visit * Reason Onset Date Comments Prior Authorization 07/21/2025 DME: [facility] One Care Request Durable Medical Equipment 07/21/2025 Encounter Details Date Type Department Care Team (Late st Contact Info) Description 07/21/2025 Telephone [facility] [address] [place] [address] Carmen Bertrand DO [address] [place], [place] [phone] Prior Authorization (DME: [facility] One Care Request); Durable Medical Equipment Social History Tobacco Use Types Packs/Day Years [...] * Telephone Encounter - Sangita Ferro - 08/15/2025 1:32 PM EST DME orders have been generated and uploaded to Media. [facility] One marina dry dock manager has been informed. * Telephone Encounter - Sangita Ferro - 07/21/2025 10:30 AM EST Please see attached Message from [facility] One Geological Technical Officer, Please advise. * Telephone Encounter - Sangita Ferro - 07/21/2025 10:29 AM EST ----- Message from Blaire Aguillon sent at 07/21/2025 10:15 AM EST ----- Regarding: DME RX Contact: Lauren, I am Blaire Payne, Vibrating Screed Operator for [facility] One Care Management, requesting the following DME???s on behalf of patient. DME Item: -Bathmat -Scooter -Hand Held shower head -Recliner Supportive DX: Unsteady Gait Hx. of falls, Strokes/Heart attacks If you should have any inquiries regarding this request, feel free to contact the Vibrating Screed Operator below. Cdl Program Coordinator: Blaire Elmer E-mail: [email or web address] Inspecting Engineer: Marley Lyle E-mail: [email or web address] Thanks in advance for your assistance with this request. Sincerely, Blaire Payne documented in this encounter Plan of Treatment Upcoming Encounters Date Type Department Care Team (Late st Contact Info) Description 09/07/2025 2:00 PM EST Clinical Support [facility] [address] [place] [address] Jessica Conway RN documented as of this encounter Visit Diagnoses Not on filedocumented in this encounter Additional Health Concerns Assessment Noted Time PHQ-9 Depression Total Score: 22 024 11:00 AM EDT documented as of this encounter Care Teams Rn New Graduate Relationship Specialty Start Date End Date Carmen Bertrand DO [address] [place] [address] PCP - General Family Medicine 08/18/18 documented as of this encounter
--- OUTSIDE RECORDS SUMMARY | 2025-08-16 11:21 | XMS_ITS | Encounter Summary ---
Author Organization [employer] Address [address] [facility] 7 [place] [address] Care Team Providers Care Painter Hand Name Role Phone Carmen Bertrand DO Primary Care Provider + [phone] Reason for Visit * Reason Comments Med Refill Encounter Details Date Type Department Care Team (Late st Contact Info) Description 03/16/2024 Refill [facility] MED & PEDS [address] [place], [place] [phone] Carmen Bertrand DO [address] [place] [address] Chronic low back pain, unspecified back pain [...] EST Clinical Support [facility] [address] [place] [address] Jessica Conway, RULA documented as of this encounter Visit Diagnoses Diagnosis Chronic low back pain, unspecified back pain laterality, unspecified whether sciatica present documented in this encounter Additional Health Concerns Assessment Noted Time PHQ-9 Depression Total Score: 21 023 11:26 AM EST documented as of this encounter Care Teams Painter Hand Relationship Specialty Start Date End Date Carmen Bertrand DO [address] [place] [address] PCP - General Family Medicine 08/18/18 documented as of this encounter
--- OUTSIDE RECORDS SUMMARY | 2025-08-16 11:21 | XMS_ITS | Encounter Summary ---
Author Organization [employer] Address [address] [place] [address] [address] [place] [address] Care Team Providers Care Chemical Laboratory Scientist Name Role Phone Carmen Bertrand DO Primary Care Provider + [phone] Reason for Visit * Reason Comments Med Refill Encounter Details Date Type Department Care Team ([facility] Contact Info) Description 10/18/2022 Refill [facility] [address] [place], [place] [phone] Carmen Bertrand DO 230 [place], [place] [phone] Social History Tobacco Use Types Packs/Day Years [...] Upcoming Encounters Date Type Department Care Team ([facility] st Contact Info) Description 09/07/2025 2:00 PM EST Clinical Support [facility] [address] [place] [address] Jessica Conway RN documented as of this encounter Visit Diagnoses Not on filedocumented in this encounter Additional Health Concerns Assessment Noted Time PHQ-9 Depression Total Score: 16 023 12:22 PM EST documented as of this encounter Care Teams Chemical Laboratory Scientist Relationship Specialty Start Date End Date Carmen Bertrand DO [address] [place] [address] PCP - General Family Medicine 08/18/18 documented as of this encounter
--- OUTSIDE RECORDS SUMMARY | 2025-08-16 11:21 | XMS_ITS | Encounter Summary ---
Author Organization [employer] Address [address] [place] [address] 7 [place] [address] Care Team Providers Care Hearing Aid Repairer Name Role Phone Carmen Bertrand DO Primary Care Provider + [phone] Reason for Visit * Reason Comments Med Refill Encounter Details Date Type Department Care Team ([facility] st Contact Info) Description 04/04/2025 Refill [facility] [address] [place], [place] [phone] Carmen Bertrand DO [address] [place], [place] [phone] Hypertension, unspecified type; Chronic low back pain, [...] Description 09/07/2025 2:00 PM EST Clinical Support [facility] [address] [place] [address] Jessica Conway RN documented as of this encounter Visit Diagnoses Diagnosis Hypertension, unspecified type Chronic low back pain, unspecified back pain laterality, unspecified whether sciatica present documented in this encounter Additional Health Concerns Assessment Noted Time PHQ-9 Depression Total Score: 22 024 11:00 AM EDT documented as of this encounter Care Teams Hearing Aid Repairer Relationship Specialty Start Date End Date Carmen Bertrand DO [address] [place] [address] PCP - General Family Medicine 08/18/18 documented as of this encounter
--- OUTSIDE RECORDS SUMMARY | 2025-08-16 11:21 | XMS_ITS | Encounter Summary ---
Author Organization [employer] Address [address] [place] [address] 7 [place] [address] Care Team Providers Care Maintenance Truck Driver Name Role Phone Carmen Bertrand DO Primary Care Provider + [phone] Reason for Visit * Reason Comments Med Refill Encounter Details Date Type Department Care Team ([facility] st Contact Info) Description 07/29/2025 Refill [facility] [address] [place], [place] [phone] Carmen Bertrand DO [address] [place], [place] [phone] Chronic low back pain, unspecified back pain [...] 09/07/2025 2:00 PM EST Clinical Support [facility] [address] [place] [address] Jessica Conway RN documented as of this encounter Visit Diagnoses Diagnosis Chronic low back pain, unspecified back pain laterality, unspecified whether sciatica present documented in this encounter Additional Health Concerns Assessment Noted Time PHQ-9 Depression Total Score: 22 024 11:00 AM EDT documented as of this encounter Care Teams Maintenance Truck Driver Relationship Specialty Start Date End Date Carmen Bertrand DO [address] [place] [address] PCP - General Family Medicine 08/18/18 documented as of this encounter
--- OUTSIDE RECORDS SUMMARY | 2025-08-16 11:21 | XMS_ITS | Encounter Summary ---
Author Organization [employer] Address [address] [place] [address] 7 [place] [address] Care Team Providers Care Set Up Mold Technician Name Role Phone Elza Carmen Primary Care Provider + [phone] Reason for Visit * Reason Comments Med Refill Encounter Details Date Type Department Care Team ([facility] st Contact Info) Description 03/08/2024 Refill [facility] [address] [place] [address] Rox Sutton MD [address] [place] [address] Pain Social History Tobacco Use Types Packs/Day [...] Support [facility] [address] [place] [address] Jessica Conway RN documented as of this encounter Visit Diagnoses Diagnosis Pain Generalized pain documented in this encounter Additional Health Concerns Assessment Noted Time PHQ-9 Depression Total Score: 21 023 11:26 AM EST documented as of this encounter Care Teams Set Up Mold Technician Relationship Specialty Start Date End Date Carmen Bertrand DO [address] [place] [address] PCP - General Family Medicine 08/18/18 documented as of this encounter
--- OUTSIDE RECORDS SUMMARY | 2025-08-16 11:21 | XMS_ITS | Encounter Summary ---
Author Organization [employer] Address [address] [place] [address] [facility] [place] [address] Care Team Providers Care Electrical Products Engineer Name Role Phone Carmen Bertrand DO Primary Care Provider + [phone] Reason for Visit * Reason Comments Med Refill Encounter Details Date Type Department Care Team ([facility] st Contact Info) Description 11/20/2022 Refill [facility] [address] [place], [place] [phone] Carmen Bertrand DO [address] [place], [place] [phone] Morbid obesity with body mass index (BMI) [...] Support [facility] [address] [place] [address] Jessica Conway, RN documented as of this encounter Visit Diagnoses Diagnosis Morbid obesity with body mass index (BMI) of 50.0 to 59.9 in adult (HCC) documented in this encounter Additional Health Concerns Assessment Noted Time PHQ-9 Depression Total Score: 16 023 12:22 PM EST documented as of this encounter Care Teams Electrical Products Engineer Relationship Specialty Start Date End Date Carmen Bertrand DO [address] [place] [address] PCP - General Family Medicine 08/18/18 documented as of this encounter
--- OUTSIDE RECORDS SUMMARY | 2025-08-16 11:21 | XMS_ITS | Encounter Summary ---
Author Organization [employer] Address [address] [place] [address] [place] [address] Care Team Providers Care Gluing Pressman Name Role Phone Carmen Bertrand DO Primary Care Provider [phone] Encounter Details Date Type Department Care Team (Late st Contact Info) Description 09/09/2022 Orders Only [facility] MED & PEDS [address] [place] [address] Carmen Perez LPN Social History Tobacco Use [...] Description 09/07/2025 2:00 PM EST Clinical Support [facility] [address] [place] [address] Jessica Conway, RN documented as of this encounter Visit Diagnoses Not on filedocumented in this encounter Care Teams Gluing Pressman Relationship Specialty Start Date End Date Carmen Bertrand DO [address] [place] [address] PCP - General Family Medicine 08/18/18 documented as of this encounter
--- OUTSIDE RECORDS SUMMARY | 2025-08-16 11:21 | XMS_ITS | Encounter Summary ---
Author Organization [employer] Address [address] [place] [address] [place] [address] Care Team Providers Care Psychiatric Social Worker Supervisor Name Role Phone Carmen Bertrand DO Primary Care Provider [phone] Encounter Details Date Type Department Care Team (Late st Contact Info) Description 09/09/2022 Orders Only [facility] MED[facility]INE [address] [place] [address] Azul Albrecht LPN Social History Tobacco Use [...] 09/07/2025 2:00 PM EST Clinical Support [facility] [address] [place] [address] Jessica Conway, RULA documented as of this encounter Visit Diagnoses Not on filedocumented in this encounter Care Teams Psychiatric Social Worker Supervisor Relationship Specialty Start Date End Date Carmen Bertrand DO [address] [place] [address] PCP - General Family Medicine 08/18/18 documented as of this encounter
--- OUTSIDE RECORDS SUMMARY | 2025-08-16 11:21 | XMS_ITS | Encounter Summary ---
Author Organization [employer] Address [address] [facility] 7 [place] [address] Care Team Providers Care Tree Killer Name Role Phone Carmen Bertrand DO Primary Care Provider + [phone] Reason for Visit * Reason Comments Med Refill Encounter Details Date Type Department Care Team (Late st Contact Info) Description 05/12/2024 Refill [facility] MED & PEDS [address] [place], [place] [phone] Carmen Bertrand DO [address] [place] [address] Chronic low back pain, unspecified back pain [...] [facility] MEDICINE [address] [place] [address] Jessica Conway RN documented as of this encounter Visit Diagnoses Diagnosis Chronic low back pain, unspecified back pain laterality, unspecified whether sciatica present documented in this encounter Additional Health Concerns Assessment Noted Time PHQ-9 Depression Total Score: 22 024 11:00 AM EDT documented as of this encounter Care Teams Tree Killer Relationship Specialty Start Date End Date Carmen Bertrand DO [address] [place] [address] PCP - General Family Medicine 08/18/18 documented as of this encounter
--- OUTSIDE RECORDS SUMMARY | 2025-08-16 11:21 | XMS_ITS | Encounter Summary ---
Author Organization [employer] Address [address] [facility] 7 [place] [address] Care Team Providers Care Basket Filler Name Role Phone Carmen Bertrand DO Primary Care Provider + [phone] Reason for Visit * Reason Comments Med Refill Encounter Details Date Type Department Care Team ([facility] st Contact Info) Description 07/22/2023 Refill [facility] MED & PEDS [address] [place], [place] [phone] Carmen Bertrand DO [address] [place] [address] Hyperlipidemia, unspecified hyperlipidemia type Social History Tobacco [...] Description 09/07/2025 2:00 PM EST Clinical Support [facility]ICINE [address] [place] [address] Jessica Conway RN documented as of this encounter Visit Diagnoses Diagnosis Hyperlipidemia, unspecified hyperlipidemia type documented in this encounter Additional Health Concerns Assessment Noted Time PHQ-9 Depression Total Score: 21 023 11:26 AM EST documented as of this encounter Care Teams Basket Filler Relationship Specialty Start Date End Date Carmen Bertrand DO [address] [place] [address] PCP - General Family Medicine 08/18/18 documented as of this encounter
--- OUTSIDE RECORDS SUMMARY | 2025-08-16 11:21 | XMS_ITS | Encounter Summary ---
Author Organization [employer] Address [address] [place] [address] 7 [place] [address] Care Team Providers Care Sports Reporter Name Role Phone RajeevCarmen jones Primary Care Provider + [phone] Reason for Visit * Reason Comments Med Refill Encounter Details Date Type Department Care Team ([facility] st Contact Info) Description 02/03/2023 Refill [facility] [address] [place] [address] Leticia Ramirez MD [address] [place], [place] [phone] Nonintractable headache, unspecified chronicity pattern, unspecified headache [...] Description 09/07/2025 2:00 PM EST Clinical Support [facility] [place] [address] Jessica Conway RN documented as of this encounter Visit Diagnoses Diagnosis Nonintractable headache, unspecified chronicity pattern, unspecified headache type documented in this encounter Additional Health Concerns Assessment Noted Time PHQ-9 Depression Total Score: 16 023 12:22 PM EST documented as of this encounter Care Teams Sports Reporter Relationship Specialty Start Date End Date Carmen Bertrand DO [address] [place] [address] PCP - General Family Medicine 08/18/18 documented as of this encounter
--- OUTSIDE RECORDS SUMMARY | 2025-08-16 11:22 | XMS_ITS | Encounter Summary ---
Author Organization [employer] Address [address] [place] [address] 7 [place] [address] Care Team Providers Care Manager Retail Sales Name Role Phone Carmen Bertrand DO Primary Care Provider + [phone] Reason for Visit * Reason Comments Med Refill Encounter Details Date Type Department Care Team ([facility] st Contact Info) Description 01/26/2025 Refill [facility] [address] [place], [place] [phone] Carmen Bertrand DO [address] [place], [place] [phone] Social History Tobacco Use Types Packs/Day Years [...] 2:00 PM EST Clinical Support [facility] [address] [place] [address] Jessica Conway, RULA documented as of this encounter Visit Diagnoses Not on filedocumented in this encounter Additional Health Concerns Assessment Noted Time PHQ-9 Depression Total Score: 22 024 11:00 AM EDT documented as of this encounter Care Teams Manager Retail Sales Relationship Specialty Start Date End Date Carmen Bertrand DO [address] [place] [address] PCP - General Family Medicine 08/18/18 documented as of this encounter
--- OUTSIDE RECORDS SUMMARY | 2025-08-16 11:22 | XMS_ITS | Encounter Summary ---
Author Organization [employer] Address [address] [place] [address] [place] [address] Care Team Providers Care Animal Behaviorist Name Role Phone Carmen Bertrand DO Primary Care Provider + [phone] Reason for Visit * Reason Onset Date Comments ER Follow-up 06/29/2025 Encounter Details Date Type Department Care Team ([facility] st Contact Info) Description 06/29/2025 Telephone [facility] [address] [place] [address] Carmen Bertrand DO [address] [place], [place] [phone] ER Follow-up Social History Tobacco Use Types [...] ED visit on : Date: 06/28 Hospital: [facility] Seen for: Dizziness/ almost fainted Symptomatic No *if yes message should go to Triage Patient advised will forward to team nurse for follow up documented in this encounter Plan of Treatment Upcoming Encounters Date Type Department Care Team (Late st Contact Info) Description 09/07/2025 2:00 PM EST Clinical Support [facility] [address] [place] [address] Jessica Conway, RULA documented as of this encounter Visit Diagnoses Not on filedocumented in this encounter Additional Health Concerns Assessment Noted Time PHQ-9 Depression Total Score: 22 024 11:00 AM EDT documented as of this encounter Care Teams Animal Behaviorist Relationship Specialty Start Date End Date Carmen Bertrand DO [address] [place] [address] PCP - General Family Medicine 08/18/18 documented as of this encounter
--- OUTSIDE RECORDS SUMMARY | 2025-08-16 11:22 | XMS_ITS | Encounter Summary ---
Author Organization [employer] Address [address] [place] [address] 7 [place] [address] Care Team Providers Care Medical Pathology Teacher Name Role Phone Carmen Bertrand DO Primary Care Provider + [phone] Reason for Visit * Reason Comments Med Refill Encounter Details Date Type Department Care Team ([facility] st Contact Info) Description 06/01/2025 Refill [facility] [address] [place], [place] [phone] Carmen Bertrand DO [address] [place], [place] [phone] Chronic low back pain, unspecified back pain [...] EST Clinical Support [facility] [address] [place] [address] Jessica Conway RN documented as of this encounter Visit Diagnoses Diagnosis Chronic low back pain, unspecified back pain laterality, unspecified whether sciatica present documented in this encounter Additional Health Concerns Assessment Noted Time PHQ-9 Depression Total Score: 22 024 11:00 AM EDT documented as of this encounter Care Teams Medical Pathology Teacher Relationship Specialty Start Date End Date Carmen Bertrand DO [address] [place] [address] PCP - General Family Medicine 08/18/18 documented as of this encounter
--- OUTSIDE RECORDS SUMMARY | 2025-08-16 11:22 | XMS_ITS | Encounter Summary ---
Author Organization [employer] Address [address] [place] [address] 7 [place] [address] Care Team Providers Care Product Support Specialist Name Role Phone Carmen Bertrand DO Primary Care Provider + [phone] Reason for Visit * Reason Comments Med Refill Encounter Details Date Type Department Care Team ([facility] st Contact Info) Description 02/04/2025 Refill [facility] [address] [place], [place] [phone] Carmen Bertrand DO [address] [place], [place] [phone] Chronic low back pain, unspecified back pain [...] EST Clinical Support [facility] [address] [place] [address] Jessica Conway RN documented as of this encounter Visit Diagnoses Diagnosis Chronic low back pain, unspecified back pain laterality, unspecified whether sciatica present documented in this encounter Additional Health Concerns Assessment Noted Time PHQ-9 Depression Total Score: 22 024 11:00 AM EDT documented as of this encounter Care Teams Product Support Specialist Relationship Specialty Start Date End Date Carmen Bertrand DO [address] [place] [address] PCP - General Family Medicine 08/18/18 documented as of this encounter
--- OUTSIDE RECORDS SUMMARY | 2025-08-16 11:22 | XMS_ITS | Encounter Summary ---
Author Organization [employer] Address [address] [place] [address] [address] [place] [address] Care Team Providers Care Per Diem Interpreter Name Role Phone Elza Carmen Primary Care Provider + [phone] Reason for Visit * Reason Comments Med Refill Encounter Details Date Type Department Care Team ([facility] st Contact Info) Description 01/13/2024 Refill [facility] [address] [place] [address] Rox Sutton MD [address] [place] [address] Pain Social History Tobacco Use Types Packs/Day [...] EST Clinical Support [facility] [address] [place] [address] Jessica Conway RN documented as of this encounter Visit Diagnoses Diagnosis Pain Generalized pain documented in this encounter Additional Health Concerns Assessment Noted Time PHQ-9 Depression Total Score: 21 023 11:26 AM EST documented as of this encounter Care Teams Per Diem Interpreter Relationship Specialty Start Date End Date Carmen Bertrand DO [address] [place] [address] PCP - General Family Medicine 08/18/18 documented as of this encounter
[2025-08-16 11:45] LABS: Troponin-I High Sensitivity < 2.7 ng/L (<3.5-17.0)
[2025-08-16 11:46] LABS: Alanine Aminotransferase 15 U/L (0-31); Albumin Level 3.5 g/dL (3.5-5.0); Alkaline Phosphatase 101 U/L (39-117); Anion Gap 12 (12-20); Aspartate Amino Transferase 22 U/L (5-31); Blood Urea Nitrogen 10 mg/dL (9-16); Calcium 9.1 mg/dL (8.4-10.2); Carbon Dioxide 27 mmol/L (22-29); Chloride 110 mmol/L (96-108); Estimated Glomerular Filt Rate > 60; Potassium 3.6 mmol/L (3.3-5.1); Sodium 145 mmol/L (135-145); Total Protein 6.7 g/dL (6.5-8.0)
[2025-08-16 11:48] LABS: NT Pro B Type Natriuretic Pept 201.7 pg/mL (<300)
--- NOTE | 2025-08-17 05:36 | ED.GENADULT ---
HPI - General Adult General Stated complaint: dizziness Source: patient Limitations: language barrier History of Present Illness ED Provider: Rita Eid PA-C HPI narrative: Chart completed via down time paperwork Related Data Home Medications ?Medication ?Instructions ?Recorded ?Confirmed albuterol sulfate 90 mcg/actuation 2 puff PO Q4-6H PRN Wheezing 12/01/20 06/14/25 aerosol inhaler (Ventolin HFA) fluticasone propionate 50 2 spray intranasal DAILY 12/01/20 06/14/25 mcg/actuation nasal spray,suspension blood pressure test kit-large #1 ea 12/19/20 05/27/25 topiramate 50 mg tablet 50 mg PO BID 12/19/20 06/14/25 cholecalciferol (vitamin D3) 50 50 mcg PO DAILY 03/13/22 06/14/25 mcg (2,000 unit) capsule metoprolol succinate 50 mg 50 mg PO DAILY 07/01/22 06/14/25 tablet,extended release 24 hr tramadol 50 mg tablet 50 mg PO Q8H PRN severe pain 10/24/22 06/14/25 metronidazole 0.75 % topical gel 1 appl topical DAILY PRN Rash 10/25/22 06/14/25 albuterol sulfate 2.5 mg/3 mL 2.5 mg inhalation Q4-6H PRN 11/15/22 06/14/25 (0.083 %) solution for nebulization Wheezing fluticasone propionate 110 2 puff inhalation BID 11/13/23 06/14/25 mcg/actuation HFA aerosol inhaler benzoyl peroxide 10 % topical 1 appl topical DAILY 11/08/24 06/14/25 cleanser econazole nitrate 1 % topical cream 1 appl topical BID 11/08/24 06/14/25 emtricitabine 200 mg-tenofovir 1 tab PO DAILY 11/08/24 06/14/25 disoproxil fumarate 300 mg tablet hydroquinone 4 % topical cream 1 appl topical BID 11/08/24 06/14/25 nitroglycerin 0.4 mg sublingual 0.4 mg sublingual Q5M PRN Chest 12/13/24 06/14/25 tablet Pain clopidogrel 75 mg tablet 75 mg PO DAILY 01/12/25 06/14/25 tirzepatide (weight loss) 5 mg/0.5 mg subcut QWEEK 02/03/25 06/14/25 mL subcutaneous pen injector (Zepbound) Previous Rx's ?Medication ?Instructions ?Recorded amlodipine 5 mg tablet (Norvasc) 5 mg PO DAILY #90 tabs 11/09/24 hydrochlorothiazide 12.5 mg tablet 12.5 mg PO DAILY #90 tabs 11/19/24 aspirin 81 mg tablet,delayed 81 mg PO DAILY #90 tabs 12/13/24 release atorvastatin 80 mg tablet (Lipitor) 80 mg PO BEDTIME #90 tabs 12/13/24 ezetimibe 10 mg tablet 10 mg PO DAILY #90 tabs 12/13/24 lisinopril 20 mg tablet 20 mg PO DAILY #90 tabs 12/13/24 famotidine 40 mg tablet 40 mg PO BEDTIME PRN heartburn #90 01/27/25 tabs pantoprazole 20 mg tablet,delayed 20 mg PO DAILY #90 tabs 01/27/25 release doxycycline hyclate 100 mg tablet 100 mg PO BID #14 tabs 02/03/25 pyridoxine (vitamin B6) 100 mg 100 mg PO DAILY 90 days #90 tabs 02/07/25 tablet Lactobacillus acidophilus 100 mg 10,000 mmu cells PO BID #60 caps 06/08/25 (1 billion cell) capsule isosorbide mononitrate 120 mg 120 mg PO DAILY #30 tabs 06/14/25 tablet,extended release 24 hr bacitracin 500 unit/gram topical 1 appl topical TID #14 grams 06/29/25 ointment cefuroxime axetil 500 mg tablet 500 mg PO BID #10 tabs 06/29/25 allopurinol 100 mg tablet 100 mg PO DAILY 90 days #90 tabs 07/04/25 Allergies Allergy/AdvReac Type Severity Reaction Status Date / Time penicillin G (PENICILLIN G) Allergy Severe DIFFICULTY Verified 06/29/25 17:16 BREATHING semaglutide (From Ozempic) AdvReac Severe Stomach Verified 06/29/25 17:16 Upset Review of Systems Review of Systems: Yes all other systems are reviewed and are negative [facility] Past Medical History Medical History Hiatal hernia Odynophagia Pain of right clavicle Constipation Polyarticular osteoarthritis Tubular adenoma of colon Delgado esophagus Morbid obesity Hidradenitis suppurativa CAD (coronary artery disease) Subsequent non-ST elevation myocardial infarction (NSTEMI) within 4 weeks of initial infarction Non-ST elevation AK (NSTEMI) YAMILETH on CPAP Hyperlipidemia PTSD (post-traumatic stress disorder) Fatty liver Smoker Depression Obesity Leukocytosis Frequent UTI Asthma Mass of throat Chronic pain Kidney stone Migraine HTN (hypertension) Surgical History History of esophagogastroduodenoscopy (EGD) H/O excision of mass (06/28/24) Hx of cystoscopy Stented coronary artery History of heart artery stent History of lumpectomy of left breast (10/22/21) History of lithotripsy History of endometrial ablation Hx of colonoscopy History of breast lump/mass excision History of tonsillectomy H/O: hysterectomy Family History Family History Father Hypertension Mother Hypertension Osteoporosis Hx of bilateral cataract extraction Paternal Grandmother Diabetes Sister Asthma Maternal Uncle Throat cancer Maternal Aunt Ovarian cancer Breast cancer Social History Social History Household Members: Family Housing: Apartment Are you a primary rn medicare to a significant other at home: No Do you presently have visiting nurse or other home services: No Alcohol intake: never Comment: pt refusing alarms Patient Tobacco Use Status: Current everyday Tobacco user Tobacco use type: Cigarette Cigarette Packs Per Day: 0.5 Cigarettes Per Day: 10 Years Smoked: 30 e-Cigarette/Vaping Use: Never Used Second Hand Smoke Exposure: No Advance Directives: Yes Advance Directives on File: Yes Advance Directives Date on File: 10/28/22 service: No Current occupational status: unemployed and retired Medical Decision Making Medical Decision Making MDM Narrative: See downtime paperwork Lab Data 08/16/25 02:31 08/16/25 02:31 Labs: Lab Results 08/16/25 08/16/25 Range/Units 02:31 02:45 WBC 10.3 (4.8-10.8) X10*3/uL RBC 4.18 L (4.20-5.50) X10*6/uL Hgb 13.0 (12.0-16.0) g/dl Hct 39.1 (37.0-47.0) % MCV 93.5 (80.0-98.0) fL MCH 31.1 (27.0-33.0) pg MCHC 33.2 (31.0-35.0) g/dl RDW 14.3 (11.0-16.0) % Plt Count 297 (160-400) X10*3/uL MPV 9.6 (9.4-12.3) fL Immature Gran % (Auto) 0.5 H (0.0-0.4) % Neut % (Auto) 53.1 (45-73) % Lymph % (Auto) 34.7 (20-40) % [place] % (Auto) 7.9 (2-11) % Eos % (Auto) 3.1 (0-4) % Baso % (Auto) 0.7 (0-2) % Lymph # (Auto) 3.6 (1.2-4.9) X10*3/uL [place] # (Auto) 0.8 (0.1-1.2) X10*3/uL Eos # (Auto) 0.3 (0.0-0.4) X10*3/uL Baso # (Auto) 0.1 (0.0-0.2) X10*3/uL Abs Immat Gran (auto) 0.05 H (0.00-0.03) X10*3/uL Absolute Neuts (auto) 5.5 (2.0-8.3) x10*3/uL Absolute Nucleated RBC 0.000 (0.0-0.012) X10*3/uL Nucleated RBC % (auto) 0.0 (0.0-0.2) /100WBC PT 11.8 (11.2-13.5) SEC INR 1.0 (0.9-1.1) APTT 34.7 H (26.7-34.1) SEC Sodium 145 (135-145) mmol/L Potassium 3.6 (3.3-5.1) mmol/L Chloride 110 H (96-108) mmol/L Carbon Dioxide 27 (22-29) mmol/L Anion Gap 12 (12-20) BUN 10 (9-16) mg/dL Creatinine 0.94 (0.5-1.4) mg/dL Estim Creat Clear Calc TNP Estimated GFR > 60 Random Glucose 95 (60-115) mg/dL Calcium 9.1 (8.4-10.2) mg/dL Total Bilirubin 0.3 (0.0-1.0) mg/dL AST 22 (5-31) U/L ALT 15 (0-31) U/L Alkaline Phosphatase 101 (39-117) U/L Troponin I High Sens < 2.7 (<3.5-17.0) ng/L NT-Pro-B Natriuret Pep 201.7 (<300) pg/mL Total Protein 6.7 (6.5-8.0) g/dL Albumin 3.5 (3.5-5.0) g/dL Influenza Type A (PCR) NEGATIVE (Negative) Influenza Type B (PCR) NEGATIVE (Negative) RSV RNA Qual (PCR) NEGATIVE (Negative) SARS-CoV-2 RNA (RT-PCR) NEGATIVE (Negative) Discharge Plan Discharge Clinical Impression: Headache Patient Disposition: Home, Self-Care Additional Instructions: Discharge paperwork given via down time paperwork Prescriptions: No Action hydrochlorothiazide 12.5 mg tablet 12.5 mg PO DAILY Qty: 90 4RF allopurinol 100 mg tablet 100 mg PO DAILY 90 Days Qty: 90 1RF albuterol sulfate [Ventolin HFA] 90 mcg/actuation HFA aerosol inhaler 2 puff PO Q4-6H PRN (Reason: Wheezing) fluticasone propionate 50 mcg/actuation spray,suspension 2 spray intranasal DAILY metronidazole 0.75 % gel 1 appl topical DAILY PRN (Reason: Rash) clopidogrel 75 mg tablet 75 mg PO DAILY cefuroxime axetil 500 mg tablet 500 mg PO BID Qty: 10 0RF bacitracin 500 unit/gram ointment 1 appl topical TID Qty: 14 0RF hydroquinone 4 % cream 1 appl topical BID benzoyl peroxide 10 % cleanser 1 appl topical DAILY emtricitabine-tenofovir (TDF) 200-300 mg tablet 1 tab PO DAILY econazole nitrate 1 % cream 1 appl topical BID amlodipine [Norvasc] 5 mg tablet 5 mg PO DAILY Qty: 90 0RF topiramate 50 mg tablet 50 mg PO BID (DME) blood pressure test kit-large Kit See Rx Instructions .ROUTE DIRECTED Qty: 1 Rx Instructions: As directed tramadol 50 mg tablet 50 mg PO Q8H PRN (Reason: severe pain) cholecalciferol (vitamin D3) 50 mcg (2,000 unit) capsule 50 mcg PO DAILY metoprolol succinate 50 mg tablet extended release 24 hr 50 mg PO DAILY fluticasone propionate 110 mcg/actuation HFA aerosol inhaler 2 puff inhalation BID nitroglycerin 0.4 mg tablet, sublingual 0.4 mg sublingual Q5M PRN (Reason: Chest Pain) Rx Instructions: do not exceed 3 doses per episode atorvastatin [Lipitor] 80 mg tablet 80 mg PO BEDTIME Qty: 90 3RF ezetimibe 10 mg tablet 10 mg PO DAILY Qty: 90 3RF aspirin 81 mg tablet,delayed release (DR/EC) 81 mg PO DAILY Qty: 90 3RF lisinopril 20 mg tablet 20 mg PO DAILY Qty: 90 3RF Rx Instructions: dose reduced pyridoxine (vitamin B6) 100 mg tablet 100 mg PO DAILY 90 Days Qty: 90 3RF pantoprazole 20 mg tablet,delayed release (DR/EC) 20 mg PO DAILY Qty: 90 1RF Rx Instructions: take one tablet daily. Best taken 30 minutes before a meal famotidine 40 mg tablet 40 mg PO BEDTIME PRN (Reason: heartburn) Qty: 90 0RF Rx Instructions: Take one tablet as needed at bedtime for breakthrough heartburn Lactobacillus acidophilus 100 mg (1 billion cell) capsule 10,000 mmu cells PO BID Qty: 60 0RF Rx Instructions: Take once tablet twice daily until complete albuterol sulfate 2.5 mg /3 mL (0.083 %) solution for nebulization 2.5 mg inhalation Q4-6H PRN (Reason: Wheezing) isosorbide mononitrate 120 mg tablet extended release 24 hr 120 mg PO DAILY Qty: 30 5RF Zepbound 5 mg/0.5 mL pen injector subcut QWEEK doxycycline hyclate 100 mg tablet 100 mg PO BID Qty: 14 0RF Discharge Date/Time: 08/16/25 09:10 Print Language: Somali
== END 2025-08-16 09:10 | disposition home or self-care (01) ==
PROVIDERS: Emergency Provider Emergency Medicine
DX: R51.9 Headache, unspecified (principal); R42 Dizziness and giddiness; E11.9 Type 2 diabetes mellitus without complications; I10 Essential (primary) hypertension; E78.5 Hyperlipidemia, unspecified; J45.909 Unspecified asthma, uncomplicated; F17.210 Nicotine dependence, cigarettes, uncomplicated; Z95.5 Presence of coronary angioplasty implant and graft; Z79.899 Other long term (current) drug therapy; Z79.02 Long term (current) use of antithrombotics/antiplatelets; Z79.01 Long term (current) use of anticoagulants; Z03.818 Encounter for observation for suspected exposure to other biological agents ruled out
CPT/HCPCS: 36415; 71045; 80053; 83880; 84484; 85025; 85610; 85730; 87637; 93005; 99283

== ENCOUNTER → 2025-08-16 09:02 | Outpatient (BNV) | payer OTHER, SELFPAY ==
[2025-06-14 13:00] VITALS: BP 128/72; BP 140/60; BP 148/88; BMI 63.7
== END ==
PROVIDERS: Visit Provider Radiology Diagnostic Radiology
DX: R07.9 Chest pain, unspecified (principal); R06.02 Shortness of breath
CPT/HCPCS: 71045